=== PATIENT | male | born 1945 | race Caucasian/White ===

== ENCOUNTER 2022-06-01 10:43 | Outpatient (CLI) | payer MEDICARE, BC, SELFPAY | END 2022-06-01 10:44 | disposition home or self-care (01) | PROVIDERS: PCP Family Medicine; Visit Provider Surgery | DX: D50.9 Iron deficiency anemia, unspecified (principal); K57.30 Diverticulosis of large intestine without perforation or abscess without bleeding | CPT/HCPCS: 45378; 99153; J2250; J3010 ==

== ENCOUNTER 2022-08-27 11:18 | Outpatient (REF) | payer MEDICARE, BC, SELFPAY ==
--- OUTSIDE RECORDS SUMMARY | 2022-08-27 11:22 | XMS_ITS | Encounter Summary ---
:1945 Author Organization [facility] Address [address] [place] [address] Care Team Providers Name Role Phone Elsewhere, Pcp Primary Care Provider Unavailable Encounter Details Date Type Department Care Team Description 04/08/2022 Hospital Encounter Department of John Mcintyre ied B Cell Laboratory Medicine Margy A, HAIRCUTTER, Lymp joe Lymph Nodes in [place], C.N.P., D.N.P. Of Multiple Sites [place] [address] [place] [address] ([facility]) [address] [place] [address] [place] [address] [place] [phone] (Work) [phone] Social History Tobacco Use Types Packs/Day Years Used Date Smoking Tobacco: Passive Smoke Exposure - Never Smoker Smokeless Tobacco: Never Alcohol Use Standard Drinks/Week Comments No 0 (1 standard drink = 0.6 oz pure alcoho l) Alcohol Habits Answer Date Recorded How often do you have a drink containing alcohol? 2-4 times a month 05/31/2020 How many drinks containing alcohol do you have on a Patient refused 10/15/2019 typical day when you are drinking? How often do you have six or more drinks on one Patient refu sed 05/31/2020 occasion? Comment: Not asked Social Isolation Answer Date Recorded In a typical week, how many times do you More than three gretchen es a week 10/15/2019 talk on the phone with family, friends, or neighbors? How often do you get together with friends Once a week 05/31/2020 or relatives? How often do you attend tenriism or More than 4 times per year 10/15/2019 jainism services? Do you belong to any clubs or Yes 10/15/2019 organizations such as tenriism groups, unions, fraCinnamon or athletic groups, or school groups? How often do you attend meetings of the More than 4 times pe r year 10/15/2019 clubs or organizations you belong to? Are you now , , , 10/15/2019 , never or living with a partner? Physical Activity Answer Date Recorded On average, how many days per week do you engage in moderate to 3 days 10/15/2019 strenuous exercise (like walking fast, running, jogging, dancing, swimming, biking, or other activities that cause a light or heavy sweat)? On average, how many minutes do you engage in exercise at th is 20 min 10/15/2019 level? Stress Answer Date Recorded Do you feel stress - tense, restless, nervous, or Only a lit tle 05/31/2020 anxious, or unable to sleep at night because your mind is troubled all the time - these days? Financial Resource Strain Answer Date Recorded How hard is it for you to pay for the very basics like Not h irish at all 05/31/2020 food, housing, medical care, and heating? Food Insecurity Answer Date Recorded Within the past 12 months, you worried that your food would Never true 10/15/2019 run out before you got money to buy more. Within the past 12 months, the food you bought just didn't N ever true 10/15/2019 last and you didn't have money to get more. Transportation Needs Answer Date Recorded In the past 12 months, has lack of transportation kept you f rom No 10/15/2019 medical appointments or from getting medications? In the past 12 months, has lack of transportation kept you f rom No 10/15/2019 meetings, work, or getting things needed for daily living? Education Answer Date Recorded What is the highest level of school you have completed or 12 th grade 10/15/2019 the highest degree you have received? Sex Assigned at Date Recorded Male 03/01/2019 1:23 PM CDT documented as of this encounter Medications at Time of Discharge Medication Sig Dispensed Refills Start Date End Date acetaminophen (TYLENOL) Take 2 capsules 0 021 500 mg capsule (1,000 mg total) by mouth every 6 (six) hours as needed for pain. albuterol (PROVENTIL Inhale 1-2 puffs as 0 2017 HFA,VENTOLIN HFA) 90 needed for wheezing mcg/actuation inhaler or shortness of breath. aspirin [address] tablet Take 81 mg by mouth 0 daily. Take for life. calcium carbonate Chew 1 tablet 2 (two) 0 (TUMS) 500 mg (200 mg times a day as needed calcium) chewable for indigestion or tablet heartburn. carvediloL (COREG) 25 Take 1 tablet (25 mg 180 tablet 3 01/202110/16/2022 mg tablet total) by mouth 2 (two) times a day. cetirizine (ZyrTEC) 10 Take 10 mg by mouth 0 08/14 mg tablet daily. clopidogreL (PLAVIX) 75 Take 1 tablet (75 mg 90 tablet 3 10/16/2022 mg tablet total) by mouth daily. fluticasone Inhale 1 puff daily 0 08/25/2015 propion-salmeteroL as needed. 250-50 mcg/dose diskus inhaler levothyroxine Take 1 tablet (200 90 tablet 3 12/17/2021 (SYNTHROID, LEVOTHROID) mcg total) by mouth 200 mcg tablet daily. lisinopriL Take 1 tablet (40 mg 90 tablet 3 10/16/202101/2022 (PRINIVIL,ZESTRIL) 40 total) by mouth mg tablet daily. montelukast (SINGULAIR) Take 1 tablet by 0 2014 10 mg tablet mouth at bedtime. multivitamin tablet Take 1 tablet by 0 mouth daily. nitroglycerin Place 1 tablet (0.4 25 tablet 3 10/16/2021 (NITROSTAT) 0.4 mg SL mg total) under the tablet tongue as needed for chest pain. May repeat every 5 x 2. If no relief with 3rd tab call 911. rosuvastatin (Crestor) Take 1 tablet (40 mg 90 tablet 3 01/202110/16/2022 40 mg tablet total) by mouth daily. tamsulosin (FLOMAX) 0.4 Take 0.4 mg by mouth 0 mg 24 hr capsule daily. documented as of this encounter Plan of Treatment Upcoming Encounters Date Type Specialty Care Team Description 10/11/2022 Appointment Laboratory Medicine Natasha Mullins APRN, C.N.P., M.S.N. [address] [place] [phone] (Wo rk) 10/11/2022 Ancillary Procedure Cardiovascular Disease Natasha Cramer APRN, Radha.N.P., M.S.N. [address] [place] [phone] (Joanie rk) 10/11/2022 Appointment Cardiovascular Disease Natasha Mullins APRN, Radha.N.P., M.S.N. [address] [place] [phone] (Joanie rk) 10/12/2022 Office Visit Cardiovascular Disease Natasha Mullins APRN, C.N.P., M.S.N. [address] [place] [phone] (Joanie rk) documented as of this encounter Procedures Procedure Name Priority Date/Time Associated Comments Diagnosis CBC WITH DIFFERENTIAL, B Routine 04/08/2022 10:39 Unspecified B Cell Results for this AM CDT Lymphoma Lymph procedure are in Nodes Of Multiple the result s Sites (HCC) section. ASPARTATE Routine 04/08/2022 10:39 Unspecified B Cell Resul ts for this AMINOTRANSFERASE (AST), AM CDT Lymphoma Lymph pr ocedure are in S/P Nodes Of Multiple the result s Sites (HCC) section. POTASSIUM, S/P Routine 04/08/2022 10:39 Unspecified B Cell Res ults for this AM CDT Lymphoma Lymph procedure are in Nodes Of Multiple the result s Sites (HCC) section. ALKALINE PHOSPHATASE, Routine 04/08/2022 10:39 Unspecified B C ell Results for this S/P AM CDT Lymphoma Lymph procedure are in Nodes Of Multiple the result s Sites (HCC) section. LACTATE DEHYDROGENASE Routine 04/08/2022 10:39 Unspecified B C ell Results for this (LD), S AM CDT Lymphoma Lymph procedure are in Nodes Of Multiple the result s Sites (HCC) section. CREATININE WITH EGFR, Routine 04/08/2022 10:39 Unspecified B C ell Results for this S/P AM CDT Lymphoma Lymph procedure are in Nodes Of Multiple the result s Sites (HCC) section. CALCIUM, TOT, S/P Routine 04/08/2022 10:39 Unspecified B Cell Results for this AM CDT Lymphoma Lymph procedure are in Nodes Of Multiple the result s Sites (HCC) section. BILIRUBIN, TOT, S/P Routine 04/08/2022 10:39 Unspecified B Debbie l Results for this AM CDT Lymphoma Lymph procedure are in Nodes Of Multiple the result s Sites (HCC) section. documented in this encounter Results Potassium (04/08/2022 10:39 AM CDT) P athologist Signature Potassium, P 4.8 3.6 - 5.2 04/08/2022 CNFL mmol/L 11:00 AM CDT Specimen Anatomical Collection Method Collection Time Receive d Time (Source) Location / / Volume Laterality Blood (Blood, 04/08/2022 10:39 04/08/2022 Venous) AM CDT 10:41 AM CDT Magry Mcintyre APRN, C.N.P., D.N.P. LAB BLOOD ADD- ON Performing Organization Address City/State/ZIP Code Phon e Number [address] [address] [place] [address] System in [address] LD (Lactate Dehydrogenase) (04/08/2022 10:39 AM CDT) Analysis Performed At Patho logist Time Signature Lactate 174 122 - 222 04/08/2022 [facility] Dehydrogenase U/L 1:18 PM CDT (LD), P Specimen Anatomical Collection Method Collection Time Receive d Time (Source) Location / / Volume Laterality Blood (Blood, 04/08/2022 10:39 04/08/2022 Venous) AM CDT 12:20 PM CDT Danny Rodas APRNNLibrado., D.N.P. LAB BLOOD NON ADD-ON Performing Organization Address City/State/ZIP Code Phon e Number [facility]- [address] [place] [address] [facility] [place] [address] System in [place] [address] Creatinine with Estimated GFR (04/08/2022 10:39 AM CDT) P athologist Signature Creatinine 0.78 0.74 - 04/08/2022 CNFL 1.35 mg/dL 11:00 AM CDT eGFR-Black/Afric >90 >=60 04/08/[address] [place] mL/min/BSA 11:00 AM CDT Comment: ----ADDITIONAL INFORMATION---- Estimated GFR calculated using the 2009 CKD_EPI creatinine equation. eGFR Non-Black/ 86 >=60 mL/min/BSA 04/08/2022 11:00 AM CDT CNFL Comment: ----ADDITIONAL INFORMATION---- Estimated GFR calculated using the 2009 CKD_EPI creatinine equation. Specimen Anatomical Collection Method Collection Time Receive d Time (Source) Location / / Volume Laterality Blood (Blood, 04/08/2022 10:39 04/08/2022 Venous) AM CDT 10:41 AM CDT Danny Rodas APRNN.P., D.N.P. LAB BLOOD ADD- ON Performing Organization Address City/State/ZIP Code Phon e Number [facility]- [address] [place] [address] [place] [address] [place] [address] System [address] (ABNORMAL) CBC with Differential, Blood (04/08/2022 10:39 AM CDT) Patholo gist Method Time Signature Hemoglobin 12.8 (L) 13.2 - 04/08/2022 CNFL 16.6 g/dL 10:48 AM CDT Hematocrit 38.0 (L) 38.3 - 04/08/2022 CNFL 48.6 % 10:48 AM CDT Erythrocytes 4.17 (L) 4.35 - 04/08/2022 CNFL 5.65 10:48 AM CDT x10(12)/L MCV 91.1 78.2 - 04/08/2022 CNFL 97.9 fL 10:48 AM CDT RBC Distrib Width 13.0 11.8 - 04/08/2022 CNFL 14.5 % 10:48 AM CDT Platelet Count 201 135 - 317 04/08/2022 CNFL x10(9)/L 10:48 AM CDT Leukocytes 6.6 3.4 - 9.6 04/08/2022 CNFL x10(9)/L 10:48 AM CDT Neutrophils 3.70 1.56 - 04/08/2022 CNFL 6.45 10:48 AM CDT x10(9)/L Lymphocytes 1.65 0.95 - 04/08/2022 CNFL 3.07 10:48 AM CDT x10(9)/L Monocytes 0.78 0.26 - 04/08/2022 CNFL 0.81 10:48 AM CDT x10(9)/L Eosinophils 0.46 0.03 - 04/08/2022 CNFL 0.48 10:48 AM CDT x10(9)/L Basophils 0.01 0.01 - 04/08/2022 CNFL 0.08 10:48 AM CDT x10(9)/L Specimen Anatomical Collection Method Collection Time Receive d Time (Source) Location / / Volume Laterality Blood (Blood, 04/08/2022 10:39 04/08/2022 Venous) AM CDT 10:41 AM CDT Margy Mcintyre APRN, C.N.P., D.N.P. LAB BLOOD ADD- ON Performing Organization Address City/State/ZIP Code Phon e Number [facility]- [address] [place] [address] [place] [address] System [address] Calcium, Total (04/08/2022 10:39 AM CDT) P athologist Signature Calcium, Total, 8.8 8.8 - 10.2 04/08/2022 CNFL P mg/dL 11:00 AM CDT Specimen Anatomical Collection Method Collection Time Receive d Time (Source) Location / / Volume Laterality Blood (Blood, 04/08/2022 10:39 04/08/2022 Venous) AM CDT 10:41 AM CDT Radha Rodas APRN.N.P., D.N.P. LAB BLOOD ADD- ON Performing Organization Address City/[facility]/ZIP Code Phon e Number [address] [address] [place] [address] System in [place] [address] Bl Bilirubin, Total (04/08/2022 10:39 AM CDT) P athologist Signature Bilirubin, 0.3 <=1.2 mg/dL 04/08/2022 CNFL Total, P 11:00 AM CDT Specimen Anatomical Collection Method Collection Time Receive d Time (Source) Location / / Volume Laterality Blood (Blood, 04/08/2022 10:39 04/08/2022 Venous) AM CDT 10:41 AM CDT Radha Rodas APRN.N.P., D.N.P. LAB BLOOD ADD- ON Performing Organization Address [facility] Code Phon e Number [address] [address] [place] [address] System [address] AST (Aspartate Aminotransferase) (04/08/2022 10:39 AM CDT) Patholo gist Method Time Signature Aspartate 22 8 - 48 04/08/2022 CNFL Aminotransferase U/L 11:00 AM CDT (AST), P Specimen Anatomical Collection Method Collection Time Receive d Time (Source) Location / / Volume Laterality Blood (Blood, 04/08/2022 10:39 04/08/2022 Venous) AM CDT 10:41 AM CDT Radha Rodas APRN.N.P., D.N.P. LAB BLOOD ADD- ON Performing Organization Address City/[facility]/ZIP Code Phon e Number [address] [place] [address] [place] [address] System in [address] Alkaline Phosphatase (04/08/2022 10:39 AM CDT) P athologist Signature Alkaline 98 40 - 129 04/08/2022 [place] Phosphatase, P U/L 11:00 AM CDT Specimen Anatomical Collection Method Collection Time Receive d Time (Source) Location / / Volume Laterality Blood (Blood, 04/08/2022 10:39 04/08/2022 Venous) AM CDT 10:41 AM CDT Margy Mcintyre APRN, C.N.P., D.N.P. 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
--- OUTSIDE RECORDS SUMMARY | 2022-08-27 11:22 | XMS_ITS | Encounter Summary ---
:1945 Author Organization [facility] Address [address] [place] [address] Care Team Providers Name Role Phone Elsewhere, Pcp Primary Care Provider Unavailable Encounter Details Date Type Department Care Team Description 04/09/2022 Clinical Communication Division of Dionicio Muniz , Hematology in Dante Garcia M.D. [place], [place] [address] [facility] [address] [place] [phone] Social History Tobacco Use Types Packs/Day Years [...] or relatives? How often do you attend anabaptist or More than 4 times per year 10/15/2019 adventist services? Do you belong to any clubs or Yes 10/15/2019 organizations such as anabaptist groups, unions, fraternal or athletic groups, or school groups? How [...] PM CDT documented as of this encounter Miscellaneous Notes Telephone Encounter - Gabbie Levi R.N., O.C.N. - 04/13/2022 2:40 PM CDT Patient prefers labs at [place]. Orders placed. Telephone Encounter - Gabbie Levi R.N., O.C.N. - 04/09/2022 11:09 AM CDT ----- Message from Dante Muniz M.D. sent at 04/09/2022 10:11 AM CDT ----- Regarding: Labs at home Saw this patient in clinic today. He was feeling well but has new onset anemia. Tried ordering ferritin on stored specimen mother was no left over blood. May I please ask you to help me order the following labs at home for some point of next week: CBC with differential, reticulocytes, ferritin, haptoglobin, LDH? I will follow-up with him with a phone visit in 2 weeks. Thank you documented in this encounter Plan of Treatment Upcoming Encounters Date Type Specialty Care Team Description 10/11/2022 Appointment Laboratory Medicine Natasha Mullins APRN, C.N.Franklin., M.S.N. [address] [place] [phone] (Joanie velázquez) 10/11/2022 Ancillary Procedure Cardiovascular Disease Natasha Cramer APRN, C.N.Jalen, M.S.N. [address] [place] [phone] (Joanie velázquez) 10/11/2022 Appointment Cardiovascular Disease Natasha Mullins APRN, C.N.Franklin., M.S.N. [address] [place] [phone] (Joanie velázquez) 10/12/2022 Office Visit Cardiovascular Disease Natasha Mullins APRN, Radha.N.P., M.S.N. [address] [place] [address] (Wo rk) documented as of this encounter Results Reticulocytes (04/16/2022 8:19 AM CDT) P athologist Signature Reticulocytes, B 1.44 0.60 - 04/16/2022 [facility] 2.71 % 3:25 PM CDT Absolute 62.1 30.4 - 04/16/2022 [facility] Reticulocyte 110.9 3:25 PM CDT x10(9)/L Specimen Anatomical Collection Method Collection Time Receive d Time (Source) Location / / Volume Laterality Blood (Blood, 04/16/2022 8:19 AM 04/16/20 22 Venous) CDT 12:51 PM CDT Dante Muniz M.D. LAB BLOOD ADD-ON Performing Organization Address City/State/ZIP Code Phon e Number [facility]- [address] [place], [place] [address] [place] [address] System in [place] [address] [facility] (ABNORMAL) CBC with Differential, Blood (04/16/2022 8:19 AM CDT) [facility] gist Method Time Signature Hemoglobin 13.1 (L) 13.2 - 04/16/2022 CNFL 16.6 g/dL 8:24 AM CDT Hematocrit 38.7 38.3 - 04/16/2022 CNFL 48.6 % 8:24 AM CDT Erythrocytes 4.28 (L) 4.35 - 04/16/2022 CNFL 5.65 8:24 AM CDT x10(12)/L MCV 90.4 78.2 - 04/16/2022 CNFL 97.9 fL 8:24 AM CDT RBC Distrib Width 12.9 11.8 - 04/16/2022 CNFL 14.5 % 8:24 AM CDT Platelet Count 198 135 - 317 04/16/2022 CNFL x10(9)/L 8:24 AM CDT Leukocytes 5.9 3.4 - 9.6 04/16/2022 CNFL x10(9)/L 8:24 AM CDT Neutrophils 3.38 1.56 - 04/16/2022 CNFL 6.45 8:24 AM CDT x10(9)/L Lymphocytes 1.51 0.95 - 04/16/2022 CNFL 3.07 8:24 AM CDT x10(9)/L Monocytes 0.58 0.26 - 04/16/2022 CNFL 0.81 8:24 AM CDT x10(9)/L Eosinophils 0.41 0.03 - 04/16/2022 CNFL 0.48 8:24 AM CDT x10(9)/L Basophils 0.01 0.01 - 04/16/2022 CNFL 0.08 8:24 AM CDT x10(9)/L Specimen Anatomical Collection Method Collection Time Receive d Time (Source) Location / / Volume Laterality Blood (Blood, 04/16/2022 8:19 AM 04/16/20 22 8:19 Venous) CDT AM CDT Dante Muniz M.D. LAB BLOOD ADD-ON Performing Organization Address City/[facility]/ZIP Code Phon e Number [facility]- [address] [place] [address] [place] [address] LD (Lactate Dehydrogenase) (04/16/2022 8:18 AM CDT) Analysis Performed At Patho logist Time Signature Lactate 192 122 - 222 04/16/2022 [facility] Dehydrogenase U/L 1:18 PM CDT (LD), P Specimen Anatomical Collection Method Collection Time Receive d Time (Source) Location / / Volume Laterality Blood (Blood, 04/16/2022 8:18 AM 04/16/20 22 Venous) CDT 12:51 PM CDT Dante Muniz M.D. LAB BLOOD NON ADD-ON Performing Organization Address City/State/ZIP Code Phon e Number [facility]- [facility] Debra R[address] [place], [place] [address] [place] [address] System in [place] [address] Haptoglobin (04/16/2022 8:18 AM CDT) P athologist Signature Haptoglobin, S 168 30 - 200 04/16/2022 ECLR mg/dL 3:10 PM CDT Specimen Anatomical Collection Method Collection Time Receive d Time (Source) Location / / Volume Laterality Blood (Blood, 04/16/2022 8:18 AM 04/16/20 22 2:37 Venous) CDT PM CDT Dante Muniz M.D. LAB BLOOD ADD-ON Performing Organization Address City/[facility]/ZIP [facility] Phon e Number [facility]- [address] [place] [phone] [facility] [place] [place] [address] [address] Ferritin (04/16/2022 8:18 AM CDT) athologist Signature Ferritin, S 32 31 - 409 04/16/2022 [facility] mcg/L 1:32 PM CDT Comment: Biotin has been identified by the rosales gomes as a potential interfering substance. Higher concentrations of biotin may be found in multivitamins, roland ir/nail supplements, and workout supplements. If the result d oes not match clinical observations, repeat testing af ter patient refrains from the use of supplements for at least 12 hours. Specimen Anatomical Collection Method Collection Time Receive d Time (Source) Location / / Volume Laterality Blood (Blood, 04/16/2022 8:18 AM 04/16/20 22 Venous) CDT 12:51 PM CDT Dante Muniz M.D. 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
--- OUTSIDE RECORDS SUMMARY | 2022-08-27 11:22 | XMS_ITS | Encounter Summary ---
:1945 Author Organization [facility] Address [address] [place] [address] Care Team Providers Name Role Phone Elsewhere, Pcp Primary Care Provider Unavailable Reason for Visit Reason Comments Colonoscopy locally Encounter Details Date Type Department Care Team Description 05/13/2022 Clinical Division of [facility] Colonoscopy Communication Hematology in Dante Muniz locally [place], M.D. [place] [address] [facility] [address] [place] [phone] Social History Tobacco Use Types Packs/Day Years [...] or relatives? How often do you attend adventist or More than 4 times per year 10/15/2019 taoist services? Do you belong to any clubs or Yes 10/15/2019 organizations such as adventist groups, unions, fraternal or athletic groups, or [...] this encounter Miscellaneous Notes Telephone Encounter - Judy Lopez - 08/23/2022 9:[address] Greenberg -- it appears as if the patient was able to get his colonoscopy on 06/01 locally. The results are in Care Everywhere. Comments from PCP at [place] On June 01 colonoscopy was done with at [facility]. This was normal. Let me know if you need anything further. Judy Telephone Encounter - Judy Lopez - 05/13/2022 10:57 AM CDT Mr. Khanna called in to let you know that he cannot get a colonoscopy locally until August 13. He would like to know if the situation is more urgent than this, and if he needs to come to [place] to have it done earlier, he is willing to do that. Please advise and I will let the patient know your recommendations. If it needs to be done sooner than 08/13, please put orders through so this can be scheduled here. Thank you Judy documented in this encounter Plan of Treatment Upcoming Encounters Date Type Specialty Care Team Description 10/11/2022 Appointment Laboratory Medicine Natasha Mullins APRN, Radha.N.Franklin., M.S.N. [address] [place] [phone] (Joanie velázquez) 10/11/2022 Ancillary Procedure Cardiovascular Disease Natasha Cramer APRN, C.N.P., M.S.N. [address] [place] [phone] (Joanie velázquez) 10/11/2022 Appointment Cardiovascular Disease Natasha Mlulins APRN, Radha.N.P., M.S.N. [address] [place] [phone] (Joanie velázquez) 10/12/2022 Office Visit Cardiovascular Disease Natasha Mullins APRN, Radha.N.P., M.S.N. [address] [place] [phone] (Wo rk) documented as of this encounter Visit Diagnoses Not on filedocumented in this encounter Additional Health Concerns Infection Onset Date Last Indicated Resolved Time COVID19 Pending 06/28/2022 06/28/2022 06/28/2022 6:14 PM CDT documented as of this encounter Care Teams Electronic Induction Hardener Relationship Specialty Start Date End Date Elsewhere, Pcp PCP - General Family Medicine 10/25/18 documented as of this encounter
--- OUTSIDE RECORDS SUMMARY | 2022-08-27 11:22 | XMS_ITS | Encounter Summary ---
:1945 Author Organization [facility] Address [address] [place] [address] Care Team Providers Name Role Phone Elsewhere, Pcp Primary Care Provider Unavailable Reason for Referral Outpatient (Routine) - Authorized Specialty Diagnoses / Procedures Referred By Contact Refer trudi To Contact Hematology Oncology Lauren Brown M.D. [address] [place] [phone] Referral ID Status Reason Start Date Expiration Date Visits V isits Requested Authorized [id number] Authorized 04/09/2022 04/09/2023 1 1 utpatient (Routine) - Closed Specialty Diagnoses / Procedures Referred By Contact Breanne brush To Contact Dante Brown M.D. [facility] [address] [place] [phone] Referral ID Status Reason Start Date Expiration Date Visits Requ ested Visits Authorized [id number] Closed 04/09/2022 04/09/2023 1 1 Reason for Visit Outpatient (Routine) - Closed Specialty Diagnoses / Procedures Referred By Contact Breanne brush To Contact Hematology Oncology Margy Mcintyre [place] APRN C.N.PCarmine, D.N.P. [address] [place] [address] Referral ID Status Reason Start Date Expiration Date Visits Requ ested Visits Authorized [id number] Closed 03/17/2021 03/17/2022 1 1 Encounter Details Date Type Department Care Team Description 04/09/2022 Office Visit Division of Gary Mcintyre APRN, C.NRenetta, D.N.PCarmine [address] [place] [phone] Malignant Neoplasm Of Thyroid (HCC) (Meme cohen Dx); Hematology in [place] M[place]D. [address] [place] [phone] Lymphoma Nodular Multiple Site (HCC) [place], [place] [address] [place] [phone] Social History Tobacco Use Types Packs/Day Years [...] or relatives? How often do you attend judaism or More than 4 times per year 10/15/2019 alevism services? Do you belong to any clubs or Yes 10/15/2019 organizations such as judaism groups, unions, fraternal or athletic groups, or [...] PM CDT documented as of this encounter Last Filed Vital Signs Vital Sign Reading Time Taken Comments Blood Pressure 125/80 04/09/2022 9:41 AM CDT Pulse 75 04/09/2022 9:41 AM CDT Temperature 36.3 ??C (97.3 ??F) 04/09/2022 9:41 AM CDT Respiratory Rate - - Oxygen Saturation - - Inhaled Oxygen Concentration - - Weight 82.6 kg (181 lb 15.8 oz) 04/09/2022 9:41 AM CDT Height 175.4 cm (5' 9.06) 04/09/2022 9:41 AM CDT Body Mass Index 26.83 04/09/2022 9:41 AM CDT documented in this encounter Progress Notes Dante Brown M.D. - 04/09/2022 9:45 AM CDT SUBJECTIVE REASON FOR CONSULT B-cell non-Hodgkin lymphoma HISTORY OF PRESENT ILLNESS Patient is a 76 y.o. man with previous medical history significant for coronary artery disease, metastatic papillary thyroid carcinoma, and lymphoma whose hematological history may be summarized as follows: Circa 2013: Diagnosed with papillary thyroid carcinoma with ijeoma metastasis. Underwent total thyroidectomy and lymphadenectomy followed by radioactive iodine treatment. Circa 2014: Diagnosed with recurrent papillary thyroid carcinoma requiring repeat surgery and 2nd dosage of radioactive iodine. December 12, 2015: Fine-needle aspiration of left cervical lymph node shows involvement by B-cell lymphoma. Flow cytometry studies showed involvement by a CD5 negative kappa light chain restricted B-cell population which was positive for CD19, CD20, and CD22. Bone marrow biopsy done shortly after showing involvement by lymphoma. 2016 to present: Observed without need for lymphoma treatment. INTERVAL HISTORY Patient returns to my clinic for scheduled evaluation. Last seen by us on March 17, 2021. Of interest, on May 27, 2021 he underwent revision right neck dissection and lymphadenectomy by Dr. Carr for treatment of recurrent metastatic papillary thyroid cancer. Eighteen lymph nodes removed and 2 were positive for metastatic papillary thyroid cancer. On my interview today he reports no active symptoms or complaints. Specifically denies constitutional symptoms such as fevers, chills, drenching nightsweats, unintentional weight loss. MEDICATIONS Reviewed. REVIEW OF SYSTEMS All systems reviewed and negative except for HPI. OBJECTIVE Vitals: 04/09/22 0941 BP: 125/80 Patient Position: Sitting Pulse: 75 Temp: 36.3 ??C Height: 175.4 cm Weight: 82.6 kg TempSrc: Tympanic Body surface area is 2.01 meters squared. PHYSICAL EXAM General: Unaccompanied. No acute distress. Eyes: Examined and normal. ENT: No oral lesions or thrush. Lymph: No palpable adenopathy in the neck, supraclavicular, infraclavicular, axillary, or epitrochlear regions Heart: Regular rate and rhythm, S1 and S2 presents, no murmurs or gallops. Lungs: Symmetric expansion, no crackles, rales, rhonchi or wheezing. Abdomen: Soft, not tender to palpation, no peritoneal signs. No palpable masses or organomegaly. Spine: No tenderness to palpation or percussion of the entire spine. Joints: Examined and normal. Extremities: No clubbing, cyanosis, or edema. Neuro: Grossly nonfocal. Skin: No rash on limited examination. DIAGNOSTICS I have reviewed the recent relevant labs. Recent Results (from the past 72 hour(s)) Alkaline Phosphatase Collection Time: 04/08/22 10:39 AM Result Value Alkaline Phosphatase, P 98 AST (Aspartate Aminotransferase) Collection Time: 04/08/22 10:39 AM Result Value Aspartate Aminotransferase (AST), P 22 Bilirubin, Total Collection Time: 04/08/22 10:39 AM Result Value Bilirubin, Total, P 0.3 Calcium, Total Collection Time: 04/08/22 10:39 AM Result Value Calcium, Total, P 8.8 CBC with Differential, Blood Collection Time: 04/08/22 10:39 AM Result Value Hemoglobin 12.8 (L) Hematocrit 38.0 (L) Erythrocytes 4.17 (L) MCV 91.1 RBC Distrib Width 13.0 Platelet Count 201 Leukocytes 6.6 Neutrophils 3.70 Lymphocytes 1.65 Monocytes 0.78 Eosinophils 0.46 Basophils 0.01 Creatinine with Estimated GFR Collection Time: 04/08/22 10:39 AM Result Value Creatinine, P 0.78 eGFR-Black/ >90 eGFR Non-Black/ 86 LD (Lactate Dehydrogenase) Collection Time: 04/08/22 10:39 AM Result Value Lactate Dehydrogenase (LD), P 174 Potassium Collection Time: 04/08/22 10:39 AM Result Value Potassium, P 4.8 ASSESSMENT / PLAN #1 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 At this time there is no clinical evidence of lymphoma recurrence on the basis of history, physical examination, or laboratory data. He is asymptomatic. I recommend yearly follow- up with us in the lymphoma clinic. He will continue to follow-up with endocrinology for his treated metastatic papillary thyroid cancer. #3 Normocytic anemia Noted hemoglobin of 12.8 today compared to 14.1 in October of 2021. Normal MCV. Tried adding ferritin to stored blood but this was not available. I have reached out to our nurses and requested labs filemon done locally for further investigation of the anemia. Will follow-up via phone visit in approximately 2 weeks. Follow-up: Phone visit in 2 weeks to follow up anemia workup. Return to clinic in 1 year for lymphoma surveillance. Education We discussed the diagnosis and treatment plan in detail. The patient expressed understanding of the content. No apparent learning barriers were identified; learning preferences include listening. I personally spent over half of a total 35 minutes face to face with the patient in counseling and discussion and/or coordination of care as described above. Signed by: Laura Muniz M.D. 04/09/2022 documented in this encounter Plan of Treatment Upcoming Encounters Date Type Specialty Care Team Description 10/11/2022 Appointment Laboratory Medicine Natasha Mullins APRN, C.N.P., M.S.N. [address] [place] [address] [phone] (Joanie velázquez) 10/11/2022 Ancillary Procedure Cardiovascular Disease Natasha Cramer APRN, C.N.P., M.S.N. [address] [place] [address] [phone] (Joanie velázquez) 10/11/2022 Appointment Cardiovascular Disease Natasha Mullins APRN, C.N.P., M.S.N. [address] [place] [address] [phone] (Joanie velázquez) 10/12/2022 Office Visit Cardiovascular Disease Natasha Mullins APRN, Radha.N.P., M.S.N. [address] [place] [address] [phone] (Joanie velázquez) Scheduled Orders Name Type Priority Associated Diagnoses Order S chedule Alkaline Phosphatase Lab Routine Lymphoma Nodular Exp ected: 04/09/2023 Multiple Site (HCC) (Approxi mate), Expires: 2024 AST (Aspartate Lab Routine Lymphoma Nodular Expected: 04/09/2023 Aminotransferase) Multiple Site (HCC) (Ap proximate), Expires: 2024 Bilirubin, Total Lab Routine Lymphoma Nodular Expecte d: 04/09/2023 Multiple Site (HCC) (Approxi mate), Expires: 2024 Calcium, Total Lab Routine Lymphoma Nodular Expected: 04/09/2023 Multiple Site (HCC) (Approxi mate), Expires: 2024 CBC with Differential, Lab Routine Lymphoma Nodular E xpected: 04/09/2023 Blood Multiple Site (HCC) (Approxi mate), Expires: 2024 Creatinine with Estimated Lab Routine Lymphoma Nodula r Expected: 04/09/2023 GFR Multiple Site (HCC) (Approxi mate), Expires: 2024 LD (Lactate Lab Routine Lymphoma Nodular Expected: 0 04/09/2023 Dehydrogenase) Multiple Site ([facility]) (Appro ximate), Expires: 2024 Potassium Lab Routine Lymphoma Nodular Expected: 0 04/09/2023 Multiple Site (HCC) (Approxi mate), Expires: 2024 Scheduled Referrals Name Type Priority Associated Order Schedule Diagnoses NonF2F phone visit Outpatient Referral Routine Ex pected: 04/23/2022 (Approximate), Expires: 07/10/2023 Hematology office Outpatient Referral Routine Exp ected: visit (clinic) 04/09/2023 (Approximate), Expires: 04/09/2025 documented as of this encounter Visit Diagnoses Diagnosis Malignant Neoplasm Of Thyroid (HCC) - Pr imary Lymphoma Nodular Multiple Site (HCC) documented in this encounter Care Teams Powerhouse Mechanic Supervisor Relationship Specialty Start Date End Date Elsewhere, Pcp PCP - General Family Medicine 10/25/18 documented as of this encounter
--- OUTSIDE RECORDS SUMMARY | 2022-08-27 11:22 | XMS_ITS | Encounter Summary ---
:1945 Author Organization [facility] Address [address] [place] [address] Care Team Providers Name Role Phone Elsewhere, Pcp Primary Care Provider Unavailable Encounter Details Date Type Department Care Team Description 06/28/2022 Admin Visit Department of Family Medicine, [address] [phone] Social History Tobacco Use Types Packs/Day Years [...] or relatives? How often do you attend buddhist or More than 4 times per year 10/15/2019 congregation services? Do you belong to any clubs or Yes 10/15/2019 organizations such as buddhist groups, unions, fraternal or athletic groups, or [...] PM CDT documented as of this encounter Plan of Treatment Upcoming Encounters Date Type Specialty Care Team Description 10/11/2022 Appointment Laboratory Medicine Natasha Mullins APRN, C.N.P., M.S.N. 200 [place] [phone] (Wo rk) 10/11/2022 Ancillary Procedure Cardiovascular Disease Natasha Cramer APRN, C.N.P., M.S.N. [address] [place] [phone] (Wo rk) 10/11/2022 Appointment Cardiovascular Disease Natasha Mullins APRN, C.N.P., M.S.N. [address] [place] [phone] (Joanie velázquez) 10/12/2022 Office Visit Cardiovascular Disease Natasha Mullins APRN, C.N.P., M.S.N. [address] [place] [address] [phone] (Joanie velázquez) documented as of this encounter Visit Diagnoses Not on filedocumented in this encounter Additional Health Concerns Infection Onset Date Last Indicated Resolved Time COVID19 Pending 06/28/2022 06/28/2022 06/28/2022 6:14 PM CDT documented as of this encounter Care Teams Credit Card Clerk Relationship Specialty Start Date End Date Elsewhere, Pcp PCP - General Family Medicine 10/25/18 documented as of this encounter
--- OUTSIDE RECORDS SUMMARY | 2022-08-27 11:22 | XMS_ITS | Clinical Summary ---
:1945 Author Organization [employer] [facility] [place] [address] Care Team Providers Name Role Phone Tucker Currie MD Primary Care Provider [phone] Allergies Active Allergy Reactions Severity Noted Date Comments Clindamycin 11/17/2007 Iodinated Contrast Media Itching 11/17/2007 Pos sible adverse reaction to iodinated contr ast given at eye ce nter in 2006. Visi [address] scan on 12/12/13. No reaction noted. Penicillins Pneumococcal Vaccine Other - Describe In 12/24/2014 Headache and body Comment Field ache Shellfish Containing Nausea And Vomiting 07/07/2015 Products Medications Medication Sig Dispensed Refills Start Date End Date Status cholecalciferol Take 1 capsule 0 12/26/2013 Active (VITAMIN D) 1,000 unit by mouth once capsule daily. carvedilol (COREG) 25 Take 2 tablets 0 08/02/2016 Active mg tablet by mouth twice daily. clopidogrel (PLAVIX) 75 Take 1 tablet by 0 6 Active mg tablet mouth once daily. aspirin (ECOTRIN) 81 mg Take 1 tablet by 0 6 Active enteric coated tablet mouth once daily with a meal. cetirizine (ZYRTEC) 10 Take 1 tablet by 0 09/30/2016 Active mg tablet mouth once daily. rosuvastatin (CRESTOR) Take 1 tablet by 0 05/06/2017 Active 40 mg mouth at tabletIndications: bedtime. Mixed hyperlipidemia nitroglycerin Place 1 Tab 0 10/21/2017 Act addie (NITROSTAT) 0.4 mg under the sublingual tablet tongue. levothyroxine Take 1 tablet by 90 tablet 3 03/06/2019 Active (SYNTHROID) 200 mcg mouth before tabletIndications: breakfast. Postsurgical hypothyroidism fluticasone (50 mcg per Inhale 1 [place] 1 Bottle 12 04/11/2019 Active actuation) nasal into both solution nostrils once (FLONASE)Indications: daily. Wheeze lisinopriL (PRINIVIL; 0 02/12/2020 Active ZESTRIL) 40 mg tablet albuterol HFA (PRO-AIR; Inhale 1-2 Puffs 18 g 1 Active VENTOLIN; PROVENTIL) 90 by mouth every 4 mcg/actuation hours if needed. inhalerIndications: Wheeze tamsulosin (FLOMAX) 0.4 TAKE ONE CAPSULE 90 Capsule 3 12/15/19 22 Active mg capsuleIndications: BY MOUTH EVERY BPH with urinary DAY AFTER A MEAL obstruction montelukast (SINGULAIR) Take 1 Tablet 90 Tablet 3 05/12/2022 Active 10 mg (10 mg) by mouth tabletIndications: at bedtime. Wheeze fluticasone Inhale 1 Puff by 1 Each 12 05/12/2022 Active propion-salmeteroL mouth in the (Advair Diskus) 250-50 morning and 1 mcg/Dose diskus Puff in the inhalerIndications: evening. Wheeze famotidine (PEPCID) 20 Take 1 Tablet 60 Tablet 3 08/03/2022 Active mg tabletIndications: (20 mg) by mouth Iron deficiency anemia, two times daily. 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 Thyroidectomy 01/17/14 Multifocal bilateral dz; primary tumor l eft lobe 3.5 cm 2/4 lymph nodes + TNM stage LOI MACIS score = 6.7 (89% 20-year survival) 106 mCi radioactive iodine ablation 03/26 with pretreatment labs: Ref. Range 03/22/2014 07:30 TSH Latest Range: 0.35-4.94 uIU/mL 58.71 (H) THYROGLOBULIN TUMOR MARKER Latest Range: <33.0 ng/mL 27.0 THYROGLOBULIN ANTIBODY SCREEN Latest Ran ge: <22 IU/mL 86 (H) 1 week post-ablative scan negative for m ets Thyrogen-stimulated WBS negative 09/27 Recurrence 2014 Left neck dissection 07/07/15 - 10/10 LN+ , central and left neck levels 2-4 Lymphadenopathy detected 12/30; CT done, enlarged nodes => FNA shows B-cell lymphoma, now seeing Dr. Fairbanks Tg slowly rising: Ref. Range 01/30/2016 10:31 08/02/2016 10 :47 08/26/2016 10:25 TSH Latest Ref Range: 0.35 - 4.94 uIU/mL 0.08 (L) 0.28 (L) 135.55 (H) with thyrogen stimulation T4,FREE Latest Ref Range: 0.70 - 1.80 ng /dL 1.41 1.13 THYROGLOBULIN Latest Ref Range: <=33.0 n g/ml 0.8 3.1 20.8 ANTI-THYROGLOBULIN Latest Ref Range: <4. 0 IU/mL 29.5 (H) 51.0 (H) 75.6 (H) Persistently rising thyroglobulin 2017: Ref. Range 01/20/2017 10:24 07/26/2017 09: 47 08/10/2017 09:39 TSH Latest Ref Range: 0.35 - 4.94 uIU/mL 0.06 (L) 0.02 (L) 110.19 (H) with thyrogen stimulation T4,FREE Latest Ref Range: 0.70 - 1.80 ng /dL 1.49 1.34 1.42 THYROGLOBULIN Latest Ref Range: <=33.0 n g/ml 3.9 26.7 52.7 (H) ANTI-THYROGLOBULIN Latest Ref Range: <4. 0 IU/mL 101.8 (H) 75.2 (H) 70.4 (H) CT chest negative for mets 08/30 Thyrogen scan negative 07/31 Ultrasound negative 08/30 Given 203 mCi radioactive iodine empiric ally 09/14/17, thyrogen protocol 1 week post-ablative SPECT-CT imagest ne gative for any uptake Continued rising thyroglobulin 2017=>201 9: Ref. Range 01/17/2018 13:38 07/21/2018 15:3 7 01/29/2019 14:24 TSH Latest Ref Range: 0.35 - 4.94 uIU/mL 0.03 (L) 0.03 (L) 0.04 (L) T4,FREE Latest Ref Range: 0.70 - 1.80 ng /dL 1.41 1.38 1.36 THYROGLOBULIN Latest Ref Range: <=33.0 n g/ml 2.3 1.8 18.4 ANTI-THYROGLOBULIN Latest Ref Range: <4. 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 Unspecified intestinal obstruction 06/19 Hyperpotassemia 06/19/2021 Encounters Date Type Specialty Care Team Description 08/24/2022 Telephone Justen Lyman Proced ure MD 08/05/2022 Telephone Tucker Currie Prior Autho rization MD Sarah (famotidine (PE PCID) 20 mg tablet-PA NOT N EEDED) 08/03/2022 Office Visit Tucker Currie Follow Up ( Colonoscopy done MD Sarah at the [facility]); Immunization/In jection; Immunization/In jection (COVID-19 vacci ne) 08/02/2022 Orders Only Lab, [facility] 08/02/2022 Travel 07/22/2022 Orders Only Staff, Other Clinical <No sc ans attached> 07/21/2022 Orders Only Staff, Other Clinical <No sc ans attached> 07/21/2022 Orders Only Staff, Other Clinical <No sc ans attached> 07/21/2022 Orders Only Staff, Other Clinical <No sc ans attached> 07/21/2022 Telephone Tucker Currie Lab (Reques t lab orders) MD Sarah 06/20/2022 Refill Tucker Currie Refill Requ est (Montelukast) MD Sarah 06/04/2022 Orders Only Tucker Currie <No scans a ttached> MD Sarah 05/31/2022 Orders Only Scanner <No scans attac hed> from Last 3 Months Immunizations Name Administration Dates Next Due COVID-19 vaccine ([employer] 08/03/2022 30mcg/0.3mL) 12YO+ BIVALENT BOOSTER PF, MDV COVID-19 vaccine ([employer] 04/26/2022 30mcg/0.3mL) 12YO+ SHYLA-SUCROSE PF, MDV COVID-19 vaccine ([employer] 08/05/2021, 01/22/2021, 30mcg/0.3mL) PF, MDV Hepatitis A (Adult) 10/17/2003, 12/24/2002 Hepatitis A, Unspecified 10/17/2003, 12/24/2002 Influenza, High-dose Inactivated 09/05/2019, 08/02/2016, , 08/29/2014 Influenza, High-dose Quadrivalent 09/10/2021, 09/03/2020 Inactivated Influenza, IIV3 (Age >=3 years) 10/30/2007, 12/10/2004 Influenza, IIV4 07/26/2017 Influenza, Inactivated AIIV4 (Age 65+ 08/03/2022 Years) Preserv Free Influenza, Inactivated IIV3 (Age 65+ 07/31/2018 Years) Preserv Free Pneumococcal Poly,23-Valent 09/07/2012 (Pneumovax) Td (Age >=7 Years) 01/10/2009, 08/24/1999 Td, Preservative Free (age >= 7 01/10/2009 Years) Zoster (Zostavax-ZVL, live) 11/26/2011 Family History Medical History Relation Name Comments Heart Disease Father cabg at 79 Allergies Mother Asthma Mother Hyperlipidemia Mother Hypertension Mother Anesthesia Problem Neg. Stroke Sister Cancer-colon No Family History Cancer-prostate No Family History Diabetes No Family History Relation Name Status Comments Father Mother Neg. Sister Social History Tobacco Use Types Packs/Day Years Used Date Never Smoker Smokeless Tobacco: Never Used Tobacco Cessation: Counseling Given: Yes Alcohol Use Standard Drinks/Week Comments No 0 (1 standard drink = 0.6 oz pure alcoho l) Sex Assigned at Date Recorded Not on file COVID-19 Exposure Response Date Recorded In the last 10 days, have you been in contact with No / Unsu re 08/02/2022 10:43 AM CDT someone who was confirmed or suspected to have Coronavirus/COVID-19? 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 TANK TENDER Respiratory Rate 18 02/27/2019 2:21 PM CDT Oxygen Saturation 98% 08/03/2022 8:02 AM CDT Inhaled Oxygen Concentration - - Weight 80.7 kg (178 lb) 08/03/2022 8:02 AM CDT Height 170.2 cm (5' 7) 05/12/2022 2:32 PM CDT Body Mass Index 27.88 05/12/2022 2:32 PM CDT Plan of Treatment Upcoming Encounters Date Type Specialty Care Team Description 08/30/2022 Procedure Only Justen Lyman MD [address] [place] [address] (Wo rk) Health Maintenance Due Date Last Done Comments Tdap 1956 Hepatitis C screening for age 0907/24/1963 18-79 Zoster (shingles) series for age 0301/21/2012 11/26/2011 50+ (2 of 3) Pneumococcal series for age 65+ (2 09/07/2013 09/07/2012 - PCV) Medicare Wellness for age 65+ 12/24/2015 12/24/2014, 2013 Tetanus booster 01/10/2019 01/10/2009, 01/10/2009, 08/24/1999 Depression screening for age 12+ 04/11/2020 04/11/2019, , 09/30/2016, Additional history exists BMI (ht and wt on same day) for 05/12/2023 05/12/2022, 08/0 04/2021, age 18+ 12/29/2020, Additional history exists COVID-19 vaccine series Completed 08/03/2022, 04/26/2022, 08/05/2021, Additional history exists Influenza for age 65+ Completed 08/03/2022, 09/10/2021, 09/03/2020, Additional history exists Procedures Procedure Name Priority Date/Time Associated Comments Diagnosis HEMOGLOBIN Routine 08/02/2022 10:55 Anemia of unknown Result s for this AM CDT etiology procedure are i n the results section. SCAN 07/22/2022 12:00 Results for this [facility] AM CDT procedur e are in the results section. SCAN 07/21/2022 12:00 Results for this [facility]RESP-DIAGNOSTICS AM CDT procedur e are in the results section. SCAN 07/21/2022 12:00 Results for this [facility]P-DIAGNOSTICS AM CDT procedur e are in the results section. SCAN 07/21/2022 12:00 Results for this [facility]DIAGNOSTICS AM CDT procedur e are in the results section. COLONOSCOPY SCREENING Routine 06/01/2022 12:00 Screening for c olon Results for this AM CDT cancer procedure are i n the results section. SCAN-LABORATORY 05/31/2022 9:02 AM Result s for this REPORT CDT procedure are i n the results section. from Last 3 Months Results (ABNORMAL) HEMOGLOBIN (08/02/2022 10:55 AM CDT) athologist Signature HEMOGLOBIN 12.4 (L) 13.5 - 08/02/2022 [facility] 17.5 g/dL 11:48 AM CDT [facility] MCV 89 80 - 100 08/02/2022 [facility] fL 11:48 AM CDT [facility] Specimen Anatomical Collection Method / Collection Time Recei lida Time (Source) Location / Volume Laterality Blood BLOOD SPECIMEN / Venipuncture / 08/02/2022 10:55 08/02 Unknown Unknown AM CDT 10:55 AM CDT Tucker Currie MD HEMATOLOGY Performing Organization Address City/State/ZIP Code Phon e Number [facility] [address] [place] [address] SCAN [facility]AGNO[facility] (07/22/2022 12:00 AM CDT) Narrative 07/22/2022 12:00 AM CDT This result has an attachment that is no t available. Ordered by an unspecified provider. Other Clinical Staff OTHER SCAN [facility] (07/21/2022 12:00 AM CDT) Narrative 07/21/2022 12:00 AM CDT This result has an attachment that is no t available. Ordered by an unspecified provider. Other Clinical Staff OTHER SCAN [facility] (07/21/2022 12:00 AM CDT) Narrative 07/21/2022 12:00 AM CDT This result has an attachment that is no t available. Ordered by an unspecified provider. Other Clinical Staff OTHER SCAN [facility] (07/21/2022 12:00 AM CDT) Narrative 07/21/2022 12:00 AM CDT This result has an attachment that is no t available. Ordered by an unspecified provider. Other Clinical Staff OTHER COLONOSCOPY SCREENING (06/01/2022 12:00 AM CDT) Narrative This result has an attachment that is no t available. Tucker Currie MD GI PROCEDURE ORD SCAN-LABORATORY REPORT (05/31/2022 9:02 AM CDT) Narrative This result has an attachment that is no t available. Scanner OTHER from Last 3 Months Insurance Payer Benefit Plan / Subscriber ID Effective Dates Phone Addre ss Type Group MEDICARE PART A MEDICARE PART A [id number] 2008-Presen ATTN: CLAIMS - HB USE ONLY HB ONLY t [address] [place] [address] MEDICARE PART B MEDICARE PART B [id number] 2012-Prese ATTN: CLAIMS - HB USE ONLY HB ONLY nt [address] [facility] [place] [address] MEDICARE - PB MEDICARE PB [id number] 2008-Presen ATTN : CLAIMS USE ONLY ONLY t [address] [place] [address] BLUE CROSS BLUE CROSS OF [id number] 2016-Presen [address] [place] [phone] Advance Directives Latest Code Status on File Code Status Date Activated Date Inactivated Comments Full Code 07/07/2015 2:09 PM 07/08/2015 2:42 PM Full Code 07/07/2015 12:47 AM 07/07/2015 2:09 PM Care Teams Leather Goods Sales Representative Relationship Specialty Start Date End Date Tucker Currie MD PCP - General 09/15/06 [address] [facility] [id number]
--- OUTSIDE RECORDS SUMMARY | 2022-08-27 11:22 | XMS_ITS | Encounter Summary ---
:1945 Author Organization [facility] Address [address] [place] [address] Care Team Providers Name Role Phone Elsewhere, Pcp Primary Care Provider Unavailable Reason for Visit Reason Onset Date Comments Outpatient COVID-19 Testing 06/28/2022 Encounter Details Date Type Department Care Team Description 06/28/2022 External Outreach Department of Family Jes Dillon ntact With And Medicine, Center [address] Roslyn Borrero R.N. (Yadi hernandez) Exposure Street Professional To COVID -19 (Primary Building in ) [place] [address] [place] [address] Social History Tobacco Use Types Packs/Day Years [...] or relatives? How often do you attend faith or More than 4 times per year 10/15/2019 hinduism services? Do you belong to any clubs or Yes 10/15/2019 organizations such as faith groups, unions, fraternal or athletic groups, or [...] PM CDT documented as of this encounter Progress Notes Roslyn Dillon, RCarmineN. - 06/28/2022 11:59 AM CDT Encounter created for COVID-19 screening. documented in this encounter Plan of Treatment Upcoming Encounters Date Type Specialty Care Team Description 10/11/2022 Appointment Laboratory Medicine Natasha Mullins APRN, C.N.P., M.S.N. [address] [place] [phone] (Wo rk) 10/11/2022 Ancillary Procedure Cardiovascular Disease Natasha Cramer APRN, C.N.P., M.S.N. [address] [place] [phone] (Wo rk) 10/11/2022 Appointment Cardiovascular Disease Natasha Mullins APRN, C.N.P., M.S.N. [address] [place] [phone] (Wo rk) 10/12/2022 Office Visit Cardiovascular Disease Natasha Mullins APRN, C.N.P., M.S.N. [address] [place] [phone] (Wo rk) documented as of this encounter Procedures Procedure Name Priority Date/Time Associated Comments Diagnosis SARS CORONAVIRUS 2 Routine 06/28/2022 12:12 Contact With And R esults for this PCR DETECT, V PM CDT (Suspected) procedure are in Exposure To the results COVID-19 section. documented in this encounter Results SARS Coronavirus 2 PCR Detect, V Asymptomatic (06/28/2022 12:12 PM CDT) [facility] Method Time Signature SARS-CoV-2 Swab, 06/28/2022 [facility] Specimen Nasopharynx 6:13 PM CDT Source SARS-CoV-2 Undetected Undetected 06/28/2022 [facility] RNA by PCR 6:13 PM CDT Comment: SARS-CoV-2 RNA absent. This result does not rule out COVID-19 in the patient, as the sensitivity of the test depends o n the timing of the specimen collection and the quality of the specim en. Result should be correlated with patient's history and clinical presentat ion. ----ADDITIONAL INFORMATION---- This RT-PCR test using the keturah SARS-Co V-2 assay ([employer] performed on the keturah 6800/8800 S ystem has received Emergency Use Authorization (EUA) by the U.S. Food and Drug Administration, and is modified from the transcriptionist's instructions wit h a bridging study. Performance characteristics were verified by [facility] inic in a manner consistent with CLIA requirements. Fact sheets for this Emergency Use Autho rization (EUA) assay can be found at the following links: For Healthcare Providers: https://www.[employer] a.gov/media/854705/download For Patients: https://www.fda.gov/media/ 415950/download Specimen Anatomical Collection Method Collection Time Receive d Time (Source) Location / / Volume Laterality Varies 06/28/2022 12:12 06/28/2022 1:35 (Nasopharynx) PM CDT PM CDT Radha Branham APRN.N.P., D.N.P. LAB MICROBIOLOGY - GENERAL ORDERABLES Performing Organization Address City/State/ZIP Code Phon e Number [facility] [address] [place], [place] [address] [place], [place] [address]t. [place] [address] Laboratory Medicine and Pathology [address] [place] documented in this encounter Visit Diagnoses Diagnosis Contact With And (Suspected) Exposure To COVID-19 - Primary documented in this encounter Additional Health Concerns Infection Onset Date Last Indicated Resolved Time COVID19 Pending 06/28/2022 06/28/2022 06/28/2022 6:14 PM CDT documented as of this encounter Care Teams Leather Goods Sales Representative Relationship Specialty Start Date End Date Elsewhere, Pcp PCP - General Family Medicine 10/25/18 documented as of this encounter
--- OUTSIDE RECORDS SUMMARY | 2022-08-27 11:22 | XMS_ITS | Encounter Summary ---
:1945 Author Organization [facility] Address [address] [place] [address] Care Team Providers Name Role Phone Elsewhere, Pcp Primary Care Provider Unavailable Reason for Visit Outpatient (Routine) - Closed Specialty Diagnoses / Procedures Referred By Contact Refer red To Contact Dante Brown M.D. [facility] [address] [place] [phone] Referral ID Status Reason Start Date Expiration Date Visits Requ ested Visits Authorized [id number] Closed 04/09/2022 04/09/2023 1 1 Encounter Details Date Type Department Care Team Description 04/23/2022 Virtual Visit Division of Shade Brown B Cell Lymphoma Lymph Nodes Of Multiple Sites (HCC); Hematology in Dante Garcia M.D. Anemia Iron Deficiency [place], [place] [address] [place] [address] [place] [phone] Social History Tobacco Use Types Packs/Day Years [...] or relatives? How often do you attend advent or More than 4 times per year 10/15/2019 taoism services? Do you belong to any clubs or Yes 10/15/2019 organizations such as advent groups, unions, [employer] or athletic groups, or school groups? How [...] documented as of this encounter Progress Notes Dante Brown M.D. - 04/23/2022 8:30 AM CDT Levi Khanna last appoingment date: April 09, 2022 I personally spent 35 minutes completing extensive medical record review, an extensive phone call with the patient and/or family member. and communication with other health day care provider related to ongoing patient management concerning Levi Khanna 's anemia. Called the patient on his cell phone. Reviewed with him the results of his laboratory tests obtainedJun2021. Pertinent results include hemoglobin of 13.1 (compared to 12.8 on April 08, 2022), normal MCV, normal platelet count, normal white blood cell count and differential. Normal reticulocyte count, no evidence of hemolysis on the basis of LDH and haptoglobin levels. Ferritin of 32. Explained to the patient that these results indicate the possibility that his anemia secondary to iron deficiency. I recommended iron supplementation with [id number] ferrous sulfate for the next 3 months. Also explained that iron deficiency in adults over the age of 50 it is something that needsfurther evaluation to rule out the possibility of gastrointestinal blood loss from GI tract neoplasms. I asked him to make an appointment with his primary care physician to make sure he is up-to-date on his colorectal cancer screening. I recommend colonoscopy in his case over noninvasive testing such as Cologuard or Hemoquant. He voiced understanding and will follow-up on my recommendations. In terms of his lymphoma follow-up, unchanged from my previous note. He will return to clinic for yearly surveillance around March of 2023. documented in this encounter Plan of Treatment Upcoming Encounters Date Type Specialty Care Team Description 10/11/2022 Appointment Laboratory Medicine Natasha Mullins, VY, C.N.P., M.S.N. [address] [place] [phone] (Wo rk) 10/11/2022 Ancillary Procedure Cardiovascular Disease Natasha Cramer APRN, Radha.N.P., M.S.N. [address] [place] [phone] (Wo rk) 10/11/2022 Appointment Cardiovascular Disease Natasha Mullins APRN, Radha.N.[place]., M.S.N. [address] [place] [phone] (Joanie rk) 10/12/2022 Office Visit Cardiovascular Disease Natasha Mullins APRN, Radha.N.[place]., M.S.N. [address] [place] [phone] (Joanie rk) documented as of this encounter Visit Diagnoses Diagnosis Unspecified B Cell Lymphoma Lymph Nodes Of Multiple Sites (HCC) Anemia Iron Deficiency documented in this encounter Care Teams Control Analyst Relationship Specialty Start Date End Date Elsewhere, Pcp PCP - General Family Medicine 10/25/18 documented as of this encounter
--- OUTSIDE RECORDS SUMMARY | 2022-08-27 11:22 | XMS_ITS | Clinical Summary ---
:1945 Author Organization [facility] Address [address] [place] [address] Care Team Providers Name Role Phone Elsewhere, Pcp Primary Care Provider Unavailable Source Comments Patient records contain information from all sites at [facility]. For routine questions regarding patient records, call [phone] during business hours, M-F 8:00 AM - 5:00 PM Central Time. Record requests for emergency care only can be directed to [phone] at any time.[facility] Allergies Active Allergy Reactions Severity Noted Date Comments Sulfamethoxazole-Trimeth GI intolerance 06/09/2021 oprim Clindamycin Other (see comments) 11/17/2007 Unknown . Iodinated Contrast Media Itching 11/17/2007 Pos sible adverse reaction to iodinated contr ast given at eye ce nter in 2006. Visi [address] scan on 12/12/13. No reaction noted. Mold Other (see comments) 08/24/2015 Unknown . Penicillins Other (see comments) 08/24/2015 Unknown . Pneumococcal Vaccine Other (see comments) 12/24/2014 Headache and body ache Pollen Extracts Other (see comments) 07/10/2010 Shellfish Containing Nausea And Vomiting 07/07/2015 Products Medications Medication Sig Dispensed Refills Start Date End Date Status fluticasone Inhale 1 puff 0 08/25/2015 Act addie propion-salmeteroL daily as needed. 250-50 mcg/dose diskus inhaler aspirin [address] Take 81 mg by 0 08/27/2015 Active tablet mouth daily. Take for life. cetirizine (ZyrTEC) Take 10 mg by 0 08/24/2015 Active 10 mg tablet mouth daily. montelukast Take 1 tablet by 0 08/25/2015 Active (SINGULAIR) 10 mg mouth at bedtime. tablet albuterol (PROVENTIL Inhale 1-2 puffs 0 03/31/2018 Active HFA,VENTOLIN HFA) 90 as needed for mcg/actuation wheezing or inhaler shortness of breath. multivitamin tablet Take 1 tablet by 0 Active mouth daily. tamsulosin (FLOMAX) Take 0.4 mg by 0 12/12/2020 Active 0.4 mg 24 hr capsule mouth daily. calcium carbonate Chew 1 tablet 2 0 Active (TUMS) 500 mg (200 (two) times a day mg calcium) chewable as needed for tablet indigestion or heartburn. acetaminophen Take 2 capsules 0 05/27/2021 Active (TYLENOL) 500 mg (1,000 mg total) capsule by mouth every 6 (six) hours as needed for pain. carvediloL (COREG) Take 1 tablet (25 180 tablet 3 10/16/2021 1 12/17/2021 Active 25 mg tablet mg total) by mouth 2 (two) times a day. clopidogreL (PLAVIX) Take 1 tablet (75 90 tablet 3 10/16/2021 10/16/2022 Active 75 mg tablet mg total) by mouth daily. lisinopriL Take 1 tablet (40 90 tablet 3 10/16/2021 10/16/2022 Active (PRINIVIL,ZESTRIL) mg total) by mouth 40 mg tablet daily. nitroglycerin Place 1 tablet 25 tablet 3 10/16/2021 10/16/2022 Active (NITROSTAT) 0.4 mg (0.4 mg total) SL tablet under the tongue as needed for chest pain. May repeat every 5 x 2. If no relief with 3rd tab call 911. rosuvastatin Take 1 tablet (40 90 tablet 3 10/16/2021 10/16/20 22 Active (Crestor) 40 mg mg total) by mouth tablet daily. levothyroxine Take 1 tablet (200 90 tablet 3 12/17/2021 Active (SYNTHROID, mcg total) by LEVOTHROID) 200 mcg mouth daily. 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 (Suspected) Exp osure To COVID-19 (Pr imary Dx) from Last 3 Months Immunizations Name Administration Dates Next Due HepA, Unspecified 10/17/2003, 12/24/2002 Influenza, Unspecified 10/30/2007 SARS-COV-2 (COVID-19) - PFIZER TS(12 years or older) 022 Td (Adult), adsorbed 01/10/2009 influenza high dose (65 years or older) (PF) 09/05/2019 Family History Medical History Relation Name Comments Coronary artery disease Father vanessa lovell Asthma Mother kyle lovell Hypertension Mother kyle lovell Migraines Mother kyle lovell Relation Name Status Comments Father vanessa lovell Mother kyle lovell Social History Tobacco Use Types Packs/Day Years [...] or relatives? How often do you attend jain or More than 4 times per year 10/15/2019 pentecostal services? Do you belong to any clubs or Yes 10/15/2019 organizations such as jain groups, unions, fraternal or athletic groups, or [...] Date Recorded Male 03/01/2019 1:23 PM CDT Last Filed Vital Signs Vital Sign Reading Time Taken Comments Blood Pressure 125/80 04/09/2022 9:41 AM CDT Pulse 75 04/09/2022 9:41 AM CDT Temperature 36.3 ??C (97.3 ??F) 04/09/2022 9:41 AM CDT Respiratory Rate 16 06/03/2021 12:22 PM CDT Oxygen Saturation 94% 05/27/2021 6:05 PM CDT Inhaled Oxygen Concentration - - Weight 82.6 kg (181 lb 15.8 oz) 04/09/2022 9:41 AM CDT Height 175.4 cm (5' 9.06) 04/09/2022 9:41 AM CDT Body Mass Index 26.83 04/09/2022 9:41 AM CDT Plan of Treatment Upcoming Encounters Date Type Specialty Care Team Description 10/11/2022 Appointment Laboratory Medicine Natasha Mullins APRN, C.N.P., M.S.N. [address] [place] [phone] (Joanie velázquez) 10/11/2022 Ancillary Procedure Cardiovascular Disease Natasha Cramer APRN, Radha.N.P., M.S.N. [address] [place] [phone] (Joanie velázquez) 10/11/2022 Appointment Cardiovascular Disease Natasha Mullins APRN, Radha.N.P., M.S.N. [address] [place] [phone] (Joanie velázquez) 10/12/2022 Office Visit Cardiovascular Disease Natasha Mullins APRN, Radha.N.P., M.S.N. [address] [place] [phone] (Joanie velázquez) Health Maintenance Due Date Last Done Comments Hepatitis C Screening 1945 DTaP,Tdap,and Td Vaccines (1 - 01/11/2009 01/10/2009, 01/10 Tdap) Zoster Vaccines (1 of 2) 01/21/2012 11/26/2011 Pneumococcal vaccine (65+ years) 09/07/2013 09/07/2012 (2 - PCV) Depression Screening (Annual 11/14/2021 PHQ-2) Fall Risk Screen (Annual) 11/14/2021 COVID-19 Vaccine (5 - Booster for 06/21/2022 04/26/2022, , Pfizer series) 01/22/2021, Additional history exists Sodium Level 10/16/2022 10/16/2021, 10/15/2020, 02/13/2020, Additional history exists Thyroid Stimulating Hormone (TSH) 12/17/2022 12/17/2021, , test for thyroid function 04/28/2020, Additional history exists Creatinine Level 04/08/2023 04/08/2022, 10/16/2021, 04/22/2021, Additional history exists Potassium Level 04/08/2023 04/08/2022, 10/16/2021, 03/17/2021, Additional history exists Office Visit for Blood Pressure 04/09/2023 04/09/2022 Check / Re-check Influenza Vaccine Completed 08/03/2022, 09/10/2021, 09/03/2020, Additional history exists Medical Devices Implanted Type Area Server Cashier Device Shelf Model / Identifier Expiration Serial / Date Lot Premier 2.75 X 12 - [id number] Cardiac [place] Implanted: Qty: 1 on 08/24/2015 [employer] Description: Device Server Cashier - iWatt. Device Status Text - [id number]. [facility] Erin Polyprp Knit 6x6 - [id number] Mesh or Patch Le ft: Inguinal Ethicon 04/13/2025 PMH / Implanted: Qty: 1 on 01/16/2021 by Katty Hartley M.D. at [facility] / QGBQA Procedures Procedure Name Priority Date/Time Associated Comments Diagnosis SARS CORONAVIRUS 2 Routine 06/28/2022 12:12 Contact With And R esults for this PCR DETECT, V PM CDT (Suspected) procedure are in Exposure To the results COVID-19 section. from Last 3 Months Results SARS Coronavirus 2 PCR Detect, V Asymptomatic (06/28/2022 12:12 PM CDT) [facility] Method Time Signature SARS-CoV-2 Swab, 06/28/2022 [facility] Specimen Nasopharynx 6:13 PM CDT Source SARS-CoV-2 Undetected Undetected 06/28/2022 [facility] RNA by PCR 6:13 PM CDT [...] using the keturah SARS-Co V-2 assay ([employer] [employer] performed on the keturah 6800/8800 S ystem has received Emergency Use Authorization (EUA) by the U.S. Food and Drug Administration, and is modified from the process safety management engineer's instructions wit h a bridging study. Performance characteristics were verified by [facility] inic in a manner consistent with CLIA requirements. Fact sheets for this Emergency Use Autho rization (EUA) assay can be found at the following links: For Healthcare Providers: https://www.[employer] a.gov/media/243633/download For Patients: https://www.fda.gov/media/ 647778/download Specimen Anatomical Collection Method Collection Time Receive d Time (Source) Location / / Volume Laterality Varies 06/28/2022 12:12 06/28/2022 1:35 (Nasopharynx) PM CDT PM CDT Monika Guzman APRN C.N.P., D.N.P. LAB MICROBIOLOGY - GENERAL ORDERABLES Performing Organization Address City/State/ZIP Code Phon e Number [facility] [address] [place] [address] [facility] [place] [address] Laboratory Medicine and Pathology [address] [place] from Last 3 Months Insurance Payer Benefit Plan Subscriber ID Effective Phone Address Typ e / Group Dates MEDICARE MEDICARE A [id number] 2012-Pres [address] [place] [address] [employer] [place] [id number] 2016-Prese [phone] [address] Indemnity [place] [id number] ELISA [place]IVER[place] [address] Advance Directives For more information, please contact: [phone] Latest Code Status on File Code Status Date Activated Date Inactivated Comments Full Code 05/27/2021 2:58 PM 05/27/2021 8:21 PM Full Code: Not Discussed Due to: Patient does not have the capacity Care Teams [employer] Supervisor Relationship Specialty Start Date End Date Elsewhere, Pcp PCP - General Family Medicine 10/25/18
--- OUTSIDE RECORDS SUMMARY | 2022-08-27 11:22 | XMS_ITS | Encounter Summary ---
:1945 Author Organization [facility] Address [address] [place] [address] Care Team Providers Name Role Phone Elsewhere, Pcp Primary Care Provider Unavailable Encounter Details Date Type Department Care Team Description 04/16/2022 Hospital Encounter Department of [facility] Unspecif ied B Cell Laboratory Medicine Dante Muniz, Lymp joe Lymph in Mariusz Vazquez M.D. [facility] [address] [place] [address] ([facility]) [address] [place] [address] [place] [id number] [place], [place] [phone] (Work) [phone] Social History Tobacco Use Types Packs/Day Years [...] or relatives? How often do you attend yarsanism or More than 4 times per year 10/15/2019 restoration services? Do you belong to any clubs or Yes 10/15/2019 organizations such as yarsanism groups, unions, fraternal or athletic groups, or [...] 10/11/2022 Appointment Laboratory Medicine Natasha Mullins APRN, C.N.Jalen, M.S.N. [address] [place] [phone] (Wo rk) 10/11/2022 Ancillary Procedure Cardiovascular Disease Natasha Cramer APRN, Radha.N.Jalen, M.S.N. [address] [place] [phone] (Wo rk) 10/11/2022 Appointment Cardiovascular Disease Natasha Mullins APRN, Radha.N.Franklin., M.S.N. [address] [place] [phone] (Wo rk) 10/12/2022 Office Visit Cardiovascular Disease Natasha Mullins APRN, Radha.N.P., M.S.N. [address] [place] [phone] (Wo rk) documented as of this encounter Procedures Procedure Name Priority Date/Time Associated Comments Diagnosis RETICULOCYTES, B Routine 04/16/2022 8:19 AM Unspecified B Cell Results for this CDT Lymphoma Lymph procedure are in Nodes Of Multiple the result s Sites (HCC) section. CBC WITH DIFFERENTIAL, Routine 04/16/2022 8:19 AM Unspecified B Cell Results for this B CDT Lymphoma Lymph procedure are in Nodes Of Multiple the result s Sites (HCC) section. LACTATE DEHYDROGENASE Routine 04/16/2022 8:18 AM Unspecified B Cell Results for this (LD), S CDT Lymphoma Lymph procedure are in Nodes Of Multiple the result s Sites (HCC) section. HAPTOGLOBIN, S Routine 04/16/2022 8:18 AM Unspecified B Cell R esults for this CDT Lymphoma Lymph procedure are in Nodes Of Multiple the result s Sites (HCC) section. FERRITIN, S Routine 04/16/2022 8:18 AM Unspecified B Cell Res ults for this CDT Lymphoma Lymph procedure are in Nodes Of Multiple the result s Sites (HCC) section. documented in this encounter Results Reticulocytes (04/16/2022 8:19 AM CDT) P athologist Signature Reticulocytes, B 1.44 0.60 - 04/16/2022 [facility] 2.71 % 3:25 PM CDT Absolute 62.1 30.4 - 04/16/2022 [facility] Reticulocyte 110.9 3:25 PM CDT x10(9)/L Specimen Anatomical Collection Method Collection Time Receive d Time (Source) Location / / Volume Laterality Blood (Blood, 04/16/2022 8:19 AM 04/16/20 22 Venous) CDT 12:51 PM CDT Datne Muniz M.D. LAB BLOOD ADD-ON Performing Organization Address City/State/ZIP Code Phon e Number [facility]- [address] [place] [address] [facility] [place] [address] System in [place] [address] [facility] (ABNORMAL) CBC with Differential, Blood (04/16/2022 8:19 AM CDT) Patholo gist Method Time Signature Hemoglobin 13.1 (L) [...] Organization Address City/State/ZIP Code Phon e Number [address] [address] [place] [address] System in [address] LD (Lactate Dehydrogenase) (04/16/2022 8:18 AM [...] Organization Address City/State/ZIP Code Phon e Number [facility]- [address] [place] [address] [place] [address] System in [place] [address] Haptoglobin (04/16/2022 8:18 AM CDT) athologist Signature Haptoglobin, S 168 30 - 200 04/16/2022 [facility] mg/dL 3:10 PM CDT Specimen Anatomical Collection Method Collection Time Receive d Time (Source) Location / / Volume Laterality Blood (Blood, 04/16/2022 8:18 AM 04/16/20 2:37 Venous) CDT PM CDT Dante Muniz M.D. LAB BLOOD ADD-ON Performing Organization Address City/[facility]/ZIP Code Phon e Number [facility]- [address] [place] [address] [phone] [facility] [place] [address] System in [address] Ferritin (04/16/2022 8:18 AM CDT) athologist [...] Organization Address City/State/ZIP Code Phon e Number [facility]- [address] [place] [place] [address] [facility] [place] [address] System in [place] [address] documented in this encounter Visit Diagnoses Diagnosis Unspecified B Cell Lymphoma Lymph Nodes Of Multiple Sites (HCC) documented in this encounter Care Teams Cat Scanner Operator Relationship Specialty Start Date End Date Elsewhere, Pcp PCP - General Family Medicine 10/25/18 documented as of this encounter
--- OUTSIDE RECORDS SUMMARY | 2022-08-27 11:23 | XMS_ITS | Encounter Summary ---
:1945 Author Organization [facility] Address [address] [place] [address] Care Team Providers Name Role Phone Elsewhere, Pcp Primary Care Provider Unavailable Reason for Referral Outpatient (Routine) - Closed Specialty Diagnoses / Procedures Referred By Contact Refer red To Contact Otorhinolaryngology Da Carr [place] M.D. [address] [place] [address] Referral ID Status Reason Start Date Expiration Date Visits Requ ested Visits Authorized [id number] Closed 06/09/2021 06/09/2022 1 1 Scheduling Instructions Please schedule in 3-4 months Please coordinate with END Dr. Wu Reason for Visit Outpatient (Routine) - Closed Specialty Diagnoses / Procedures Referred By Contact Breanne brush To Contact Otorhinolaryngology Alisson Garrett M.D. [facility] [address] [place] [phone] Referral ID Status Reason Start Date Expiration Date Visits Requ ested Visits Authorized [id number] Closed 06/03/2021 06/03/2022 1 1 Encounter Details Date Type Department Care Team Description 06/09/2021 Office Visit Department of [facility], Follow Up Exam ination Otorhinolaryngology in Da Carballo M.D. Posto perative Visit [place], [place] (Primary Dx) [address] [place] [phone] Social History Tobacco Use Types Packs/Day Years [...] or relatives? How often do you attend scientology or More than 4 times per year 10/15/2019 orthodox services? Do you belong to any clubs or Yes 10/15/2019 organizations such as scientology groups, unions, fraternal or athletic groups, or [...] documented as of this encounter Progress Notes Alisson Garrett M.D. - 06/09/2021 2:30 PM CDT SUBJECTIVE CHIEF COMPLAINT / REASON FOR VISIT Mr. Khanna is a 75 y.o. male who returns for follow-up HISTORY OF PRESENT ILLNESS Mr. Khanna returns to clinic today for re-evaluation of his right neck after he had a right revisionlevel 4 neck dissection on 05/27/2021 and developed a postoperative seroma/hematoma. At that time a small opening in his incision was made and a Bruce drain was placed. Patient states that since his previous visit he has done very well in the swelling has improved greatly. No concerning symptoms for infection with erythema, warmth, purulent drainage from the Justin. He has had some very mild amount of bloody drainage from this site. This has essentially stopped overthe last couple of days. He initially was taking Bactrim but was having GI intolerance to this and stop this medication and is no longer taking it. He does not have any new concerns on today's exam. OBJECTIVE PHYSICAL EXAMINATION General: 75 y.o. male in no acute distress. Ambulates on and off the exam table without difficulty. Neck/Incision: Neck incision is clean dry and intact with small area of the medial incision open from previous visit. Justin drain sutured in place which was removed today. No significant drainage expressed from the residual opening. Small piece of gauze was taped over this small opening. Neck swelling is improved compared to previous visit. No bruising. No signs of infection with no erythema, warmth, induration, purulent drainage. 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 Khanna today. He returns after 1 week today for removal of Justin drain that was placed for a postoperative seroma. His neck swelling has improved greatly since his previous visit. Small amount of some mild residual swelling. No signs of infection today. Unable to express any residual drainage from the opening in the incision. Justin drain removed today. We discussed ongoing things to look out for with regards to his neck wound which include watching for signs of infection. He region was plan for an 8 week follow-up visit however due to these last few appointments we feel comfortable pushing on his return visit to a four-month follow-up in coordination with endocrinology. He was in agreement with this plan. All additional questions and concerns were addressed. Plan: 1. Follow up in 4 months in coordination with Dr. Bryce Garrett MD Resident PGY 3 Da Carr M.D. - 06/09/2021 2:30 PM CDT SUBJECTIVE CHIEF COMPLAINT/REASON FOR VISIT Supervisory note for Dr. Garrett. Right neck hematoma. HISTORY OF PRESENT ILLNESS Mr. Khanna returns following drainage of a hematoma and placement of a drain into his right inferiormedial neck incision. He returns feeling well without complaints. They have noted decreased swellingand minimal drainage. OBJECTIVE PHYSICAL EXAMINATION Skin: Dr. Garrett has removed the drain. The wound is examined. There is nice approximation of the skin at the drain site. There is no obvious fullness or swelling. ASSESSMENT / PLAN #1 Resolved right neck hematoma PLAN: Continued surveillance followup in approximately 4 months, coordinated with followup for his lymphoma. Discussed with the patient and spouse who expressed understanding. Da Carr M.D. CT CT Job ID: [id number] documented in this encounter Plan of Treatment Upcoming Encounters Date Type Specialty Care Team Description 10/11/2022 Appointment Laboratory Medicine Natasha Mullins APRN, Radha.N.P., M.S.N. [address] [place] [phone] (Joanie rk) 10/11/2022 Ancillary Procedure Cardiovascular Disease Natasha Cramer APRN, C.N.P., M.S.N. [address] [place] [phone] (Joanie rk) 10/11/2022 Appointment Cardiovascular Disease Natasha Mullins APRN, C.N.P., M.S.N. [address] [place] [phone] (Joanie rk) 10/12/2022 Office Visit Cardiovascular Disease Natasha Mullins APRN, C.N.P., M.S.N. [address] [place] [phone] (Joanie rk) Scheduled Referrals Name Type Priority Associated Order Schedule Diagnoses Otorhinolaryngology office Outpatient Routine E xpected: visit (clinic) Referral 09/09/2021 (Approximate), Expires: 06/09/2024 documented as of this encounter Visit Diagnoses Diagnosis Follow Up Examination Postoperative Visi t - Primary documented in this encounter Care Teams Shock Absorber Installer Relationship Specialty Start Date End Date Elsewhere, Pcp PCP - General Family Medicine 10/25/18 documented as of this encounter
--- OUTSIDE RECORDS SUMMARY | 2022-08-27 11:23 | XMS_ITS | Encounter Summary ---
:1945 Author Organization [facility] Address [address] [place] [address] Care Team Providers Name Role Phone Elsewhere, Pcp Primary Care Provider Unavailable Reason for Referral Outpatient (Routine) - Closed Specialty Diagnoses / Procedures Referred By Contact Refer red To Contact Diagnoses Chronic Systolic (Congestive) Heart Failure (HCC) [facility]an[facility]horacic (TTE) Danny MCCLELLANNRenetta, M.S.N. [address] [place] [phone] Referral ID Status Reason Start Date Expiration Date Visits Requ ested Visits Authorized [id number] Closed 10/15/2020 10/15/2021 1 1 E UP WORKER Reason for Visit Outpatient (Routine) - Closed Specialty Diagnoses / Procedures Referred By Contact Refer red To Contact Diagnoses Chronic Systolic (Congestive) Heart Failure (HCC) [facility] Tran[facility]horacic (TTE) Danny MCCLELLANNRenetta, M.S.N. [address] [place] [address] [phone] Referral ID Status Reason Start Date Expiration Date Visits Requ ested Visits Authorized [id number] Closed 10/15/2020 10/15/2021 1 1 Encounter Details Date Type Department Care Team Description 10/16/2021 Hospital Department of Chai Fagan, Chronic Sy stolic Encounter Cardiovascular VY Kaur, (Congestive) Heart Diseases in [place], C.N.P., M .S.N. Failure (HCC) [place] [address] [facility] [address] [place] [phone] Social History Tobacco Use Types Packs/Day Years [...] or relatives? How often do you attend denominational or More than 4 times per year 10/15/2019 amish services? Do you belong to any clubs or Yes 10/15/2019 organizations such as denominational groups, unions, fraternal or athletic groups, or [...] propion-salmeteroL as needed. 250-50 mcg/dose diskus inhaler lisinopriL Take 1 tablet (40 mg 90 tablet 3 10/16/2021 12/0 01/2022 (PRINIVIL,ZESTRIL) 40 total) by mouth mg tablet [...] mouth 0 mg 24 hr capsule daily. levothyroxine TAKE ONE TABLET BY 90 tablet 3 08/17/202101/2022 (SYNTHROID, LEVOTHROID) MOUTH EVERY DAY 200 mcg tablet documented as of this encounter Plan of Treatment Upcoming Encounters Date Type Specialty Care Team Description 10/11/2022 Appointment Laboratory Medicine Natasha Mullins APRN, C.N.P., M.S.N. [address] [place] [phone] (Joanie velázquez) 10/11/2022 Ancillary Procedure Cardiovascular Disease Natasha Cramer APRN, C.N.P., M.S.N. [address] [place] [phone] (Joanie velázquez) 10/11/2022 Appointment Cardiovascular Disease Natasha Mullins APRN, C.N.P., M.S.N. [address] [place] [phone] (Wo rk) 10/12/2022 Office Visit Cardiovascular Disease Natasha Mullins APRN, C.N.P., M.S.N. 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 documented in this encounter Results (TTE) 2D ECHO DOPPLER COLOR (10/16/2021 10:35 AM PASTE UP WORKER) [facility] gist Method Time Signature Ejection Fraction 54 MC CV EIMS Sinus of Valsalva 34 MC CV EIMS Mid-Ascending Aorta 40 MC CV EIMS Wall Motion Score 1.56 MC CV EIMS Index LV Mass Index 93 MC CV EIMS LV End-Diastolic 52 MC CV EIMS Diameter LV End-Systolic 36 MC CV EIMS Diameter LV End-Diastolic 135 MC CV EIMS Volume LV End-Systolic 62 MC CV EIMS Volume MV E Velocity 0.6 MC CV EIMS MV A Velocity 0.9 MC CV EIMS MV E/A 0.67 MC CV EIMS MV e' Velocity 0.06 MC CV EIMS Medial MV e' Velocity 0.08 MC CV EIMS Lateral MV E/e' Medial 10.0 MC CV EIMS MV E/e' Lateral 7.5 MC CV EIMS Left ventricular 48 MC CV EIMS stroke volume index Cardiac Output 6.06 MC CV EIMS Cardiac Index 3.12 MC CV EIMS LV Interventricular 10 MC CV EIMS Septal Wall Thickness LV Posterior Wall 9 MC CV EIMS Thickness LV Relative Wall 35 MC CV EIMS Thickness RV 4-Chamber Basal 40 MC CV EIMS Diameter RV 4-Chamber Mid 40 MC CV EIMS Diameter RV 4-Chamber Length 82 MC CV EIMS Tricuspid Annular S? 0.12 MC CV EIMS TR Vmax 2.52 MC CV EIMS RA Pressure 5 MC CV EIMS RV Systolic Pressure 30 MC CV EIM S AV mean gradient 16 MC CV EIMS Aortic valve area 1.67 MC CV EIMS Aortic Valve Area 0.86 MC CV EIMS Index Aortic Valve 0.34 MC CV EIMS Dimensionless Index LA Volume Index 36 MC CV EIMS WMSI At Rest 1.56 MC CV EIMS WMSI At Peak Stress 1.56 MC CV EIMS Anatomical Region Laterality Modality Echocardiography Specimen (Source) Anatomical Collection Method Collection Time Re ceived Time Location / / Volume Laterality 10/16/2021 9:03 AM PASTE UP WORKER Impressions 10/16/2021 10:58 AM PASTE UP WORKER LEFT VENTRICLE: ??Normal left ventricular chamber size. ??Normal left ventricular geometry. Calculated 3-D volumetric left ventricul ar ejection fraction 54 %. ??Calculated 2-D linear left ventricular ejection fraction 52 %. ??Ca lculated 2-D biplane volumetric left ventricular ejection fraction 54 %. ??Regional wall motion abnormalities were present (see wall motion graphics). ??Grade 1/3 left ventricular diastolic dysfunction, consistent with low to normal left ventricular filling pressure at res t. ??RIGHT VENTRICLE: ??Mildly enlarged right ventricular chamber size. ??Normal right ventricular systolic function. ??Estimated right ventricular systolic pressure 30 mmHg (systolic bloo d pressure 123 mmHg). ??ATRIA: ??Mildly enlarged left atrial size. ??Left atrial volume index 36 ml/m^2. ??Normal right atrial size by visual estimate. CARDIAC VALVES: ??Trileaflet aortic joss ve. ??Mild aortic valve stenosis. ??Aortic valve systolic mean Doppler gradient 16 mmHg. ??Aortic valve area by Doppler 1.67 cm^2. ??Mild aortic valve regurgitation. ??Mildly thickened mitral valve. ??Trivial mitral valve regurgitation. ??Normal pulmonary valve. ??Trivial pulmonary joss ve regurgitation. ??Mildly thickened tricuspid valve. Mild tricuspid valve regurgitation. ??OT HER ECHO FINDINGS: ??Normal inferior vena cava size with normal inspiratory collapse (>50%) (aguilar shepatic view). ??Normal sinus of Valsalva diameter (diameter 34 mm) Upper limit of normal i s 43 mm. ??Normal mid ascending aorta diameter (diameter 40 mm at mid level). ??Upper limit of no rmal is 42 mm. ??No abdominal aortic aneurysm. ??Normal abdominal aorta Doppler flow pattern. ?? Imaging inadequate for detection of atrial level shunt by color flow imaging. ??No intracardiac mass or thrombus, but the left atrial appendage cannot be visualized adequately with transthora cic echo to exclude thrombus in this location. ??No pericardial effusion. For the complete report, see the [employer] Documents. Narrative 10/16/2021 10:58 AM PASTE UP WORKER For the complete report, see the [employer] Documents. Final Impressions 1. Normal left ventricular chamber size, regional wall motion abnormalities were present (see wall motion graphics), calculated 3-D vo lumetric ejection fraction 54 %. 2. Mildly enlarged right ventricular catarino mber size, normal systolic function, estimated right ventricular systolic pressure 30 mmHg (s ystolic blood pressure 123 mmHg). 3. Mild aortic valve stenosis, valve are a by Doppler 1.67 cm^2, systolic mean Doppler gradient 16 mmHg. 4. Normal left ventricular geometry, gra de 1/3 diastolic dysfunction, consistent with low to normal filling pressure at rest. 5. No pericardial effusion. 6. Compared to the report of 10/15/2020 no significant change has occurred. Side by side comparison of images performed. Procedure Note Roel Soriano M.D. - 10/16/2021Format ting of this note might be different from the original. For the complete report, see the [employer] Documents. Final Impressions 1. Normal left ventricular chamber size, regional wall motion abnormalities were present (see wall motion graphics), calculated 3-D vo lumetric ejection fraction 54 %. 2. Mildly enlarged right ventricular catarino mber size, normal systolic function, estimated right ventricular systolic pressure 30 mmHg (s ystolic blood pressure 123 mmHg). 3. Mild aortic valve stenosis, valve are a by Doppler 1.67 cm^2, systolic mean Doppler gradient 16 mmHg. 4. Normal left ventricular geometry, gra de 1/3 diastolic dysfunction, consistent with low to normal filling pressure at rest. 5. No pericardial effusion. 6. Compared to the report of 10/15/2020 no significant change has occurred. Side by side comparison of images performed. Findings LEFT VENTRICLE: Normal left ventricular chamber size. Normal left ventricular geometry. Calculated 3-D volumetric left ventricul ar ejection fraction 54 %. Calculated 2- D linear left ventricular ejection fraction 52 %. Calc ulated 2-D biplane volumetric left ventricular ejection fraction 54 %. Regional wall mo tion abnormalities were present (see wall motion graphics). Grade 1/3 left ventricular di astolic dysfunction, consistent with low to normal left ventricular filling pressure at res t. RIGHT VENTRICLE: Mildly enlarged right ventricular chamber size. Normal right ventricular s ystolic function. Estimated right ventricular systolic pressure 30 mmHg (systolic bloo d pressure 123 mmHg). ATRIA: Mildly enlarged left atrial size. Left atrial volume index 36 ml/m^2. Normal right atrial size by visual estimate. CARDIAC VALVES: Trileaflet aortic valve . Mild aortic valve stenosis. Aortic valve systolic mean Doppler gradient 16 mmHg. Aortic va lve area by Doppler 1.67 cm^2. Mild aortic valve regurgitation. Mildly thickened mitral v alve. Trivial mitral valve regurgitation. Normal pulmonary valve. Trivial pulmonary valve regurgitation. Mildly thickened tricuspid valve. Mild tricuspid valve regurgitation. OTHE R ECHO FINDINGS: Normal inferior vena cava size with normal inspiratory collapse (>50%) (aguilar shepatic view). Normal sinus of Valsalva diameter (diameter 34 mm) Upper limit of normal i s 43 mm. Normal mid ascending aorta diameter (diameter 40 mm at mid level). Upper limit of norm al is 42 mm. No abdominal aortic aneurysm. Normal abdominal aorta Doppler flow pattern. Im aging inadequate for detection of atrial level shunt by color flow imaging. No intracardiac m ass or thrombus, but the left atrial appendage cannot be visualized adequately with transthora cic echo to exclude thrombus in this location. No pericardial effusion. For the complete report, see the [employer] Documents. Natasha Fagan APRN, C.N.P., M.S.N. CV ECHO [place] OCEDURES documented in this encounter Visit Diagnoses Diagnosis Chronic Systolic (Congestive) Heart Fail ure (HCC) documented in this encounter Care Teams Charter Boat Operator Relationship Specialty Start Date End Date Elsewhere, Pcp PCP - General Family Medicine 10/25/18 documented as of this encounter
--- OUTSIDE RECORDS SUMMARY | 2022-08-27 11:23 | XMS_ITS | Encounter Summary ---
:1945 Author Organization [facility] Address [address] [place] [id number] Care Team Providers Name Role Phone Elsewhere, Pcp Primary Care Provider Unavailable Reason for Referral Outpatient (Routine) - Closed Specialty Diagnoses / Procedures Referred By Contact Refer red To Contact Diagnoses Seroma Initial Da Carr M.D. [facility] Procedures Incision and Drainage [address] [place] [address] Referral ID Status Reason Start Date Expiration Date Visits Requ ested Visits Authorized [id number] Closed 06/03/2021 06/03/2022 1 1 Outpatient (Routine) - Closed Specialty Diagnoses / Procedures Referred By Contact Refer red To Contact Otorhinolaryngology Alisson Garrett M.D. [facility] [address] [place] [phone] Referral ID Status Reason Start Date Expiration Date Visits Requ ested Visits Authorized [id number] Closed 06/03/2021 06/03/2022 1 1 Reason for Visit Appointment Request (Routine) - Closed Specialty Diagnoses / Procedures Referred By Contact Refer red To Contact Otorhinolaryngology Referral ID Status Reason Start Date Expiration Date Visits Requ ested Visits Authorized [id number] Closed 06/02/2021 06/02/2022 1 1 Encounter Details Date Type Department Care Team Description 06/03/2021 Office Visit Department of Paul Carr Initial Otorhinolaryngology in Da Carballo M.D. (Prim latesha Dx) [place], [place] [address] [place] [phone] Social History Tobacco Use Types Packs/Day [...] or relatives? How often do you attend episcopalian or More than 4 times per year 10/15/2019 confucianist services? Do you belong to any clubs or Yes 10/15/2019 organizations such as episcopalian groups, unions, fraternal or athletic groups, or [...] Sign Reading Time Taken Comments Blood Pressure 115/76 06/03/2021 12:22 PM CDT Pulse 76 06/03/2021 12:22 PM CDT Temperature - - Respiratory Rate 16 06/03/2021 12:22 PM CDT Oxygen Saturation - - Inhaled Oxygen Concentration - - Weight - - Height - - Body Mass Index - - documented in this encounter Progress Da Rodgers M.D. - 06/03/2021 11:00 AM CDT SUBJECTIVE This is a postop check. CHIEF COMPLAINT/REASON FOR VISIT Right neck swelling. HISTORY OF PRESENT ILLNESS Mr. Khanna is a 75-year-old gentleman who underwent a right area IV neck dissection May 27, 2021, for metastatic papillary thyroid cancer. He also has a history of CLL. He had a small area of swellingabove the incision noted, which seemed relatively stable, but on Tuesday of this week (the date of restarting plavix) noticed an overall general increase in size of the swelling in the right neck without pain and without significant discoloration. He presents for re- evaluation. I have interviewed and examined the patient. I reviewed Dr. Garrett's evaluation and find it accurate. OBJECTIVE PHYSICAL EXAMINATION Examination of the neck reveals the incision to be intact. There is diffuse swelling along the anterior border of the sternocleidomastoid muscle inferiorly. It is not exquisitely tender and is not overly firm or tense. ASSESSMENT / PLAN #1 Probable right neck seroma vs hematoma PLAN: Reopen the inferior medial portion of the incision, drainage, drain placement. Discussed with the patient and spouse who expressed understanding. Will plan to proceed while they are here. Da Carr M.D. CT CT Job ID: [id number] Alisson Garrett M.D. - 06/03/2021 11:00 AM CDT SUBJECTIVE CHIEF COMPLAINT / REASON FOR VISIT Mr. Khanna is a 75 y.o. male who returns for postoperative follow-up due to surgical site swelling HISTORY OF PRESENT ILLNESS Mr. Khanna returns to clinic today after a revision right level 4 neck dissection for recurrent papillary thyroid carcinoma. He had 2 of 18 nodes positive on that surgery. He did fairly well for the first couple of days after surgery but called in last Tuesday with some concerns for a very small area of swelling on the superior medial border of his incision. This was monitored over the weekend with several pictures and seemed to resolve. On Tuesday he noted much more significant swelling to his right neck that extended beyond the area of just his incision. This was fairly fluctuant. There is no overlying skin changes. No associated pain, no fevers, erythema, drainage from the wound. He comes in today to get this evaluated. He feels as though since Tuesday this is not changed significantly. He has not had any dysphagia or airway related concerns. No stridor. He does feel some pressure in his neck as result of this. As reminder this patient does take Plavix for his cardiac history and restarted this on Tuesday. He has no add itional concerns today. OBJECTIVE PHYSICAL EXAMINATION General: 75 y.o. male in no acute distress. Ambulates on and off the exam table without difficulty. Neck/Incision: Incision is clean dry and intact. He does have a small amount of swelling above the superior medial border of the incision. This is fairly unremarkable. More notably he has approximatelya 4 cm x 4 cm area of swelling in his right neck that seems potentially to be overlying the SCM. This is fluctuant and fairly soft. Nontender to palpation. No overlying skin changes, erythema, warmth. Nose: Mucous membranes moist, no rhinorrhea Oral cavity: Mucous membranes moist Neuro: No focal neurologic deficits Respiratory: No stridor or shortness of breath Procedure note: Incision and drainage neck fluid collection. Please see additional procedure note for description ofthis DIAGNOSTICS Pathology: FINAL DIAGNOSIS A. ??Lymph nodes, right neck area IV, dissection: Multiple (2 of 18) lymph nodes are involved by metastatic papillary carcinoma. ASSESSMENT / PLAN DIAGNOSIS/PLAN: #1 Metastatic papillary thyroid cancer status post right revision level 4 neck dissection on 05/27/2021 #2 Postoperative seroma versus hematoma now status post incision and drainage with Wayne drain placement #3 History of lymphoma #4 Bilateral nasal polyps It was my pleasure to see Mr. Khanna today. As reminder he underwent a right level 4 neck dissectionfor recurrent PTC. He had 2 of 18 nodes positive. He unfortunately developed some right-sided neck swelling on Tuesday which has remained stable since Tuesday however has remained persistent. This appeared to be consistent with either a seroma or less likely hematoma so decision was made to proceed withincision and drainage of this fluid collection in the office today. Verbal consent was obtained and a small incision was made on medial aspect of the previous incision. We were able to express dark blood colored fluid which could likely represent either hematoma or mixture of hematoma and seroma. After more fluid was expressed from the wound small Bruce drain was placed and sutured in place. The patient tolerated this procedure well. He will be sent home with some fluff dressings and burn netting to perform dressing changes for additional drainage. We will plan on seeing him back in 1 week for removal of the drain. He has any additional questions or concerns he can reach out to us at any time. Additionally will place him on antibiotic prophylaxis. Due to his allergies which include penicillins and clindamycin we elected to place him on Bactrim for 1 week. Patient was in agreement with this plan. All additional questions and concerns were addressed. Plan: 1. Follow up in 1 week 2. Continue at least daily dressing changes or is saturated for neck drain 3. Bactrim for 1 week Alisson Garrett MD Resident PGY 3 documented in this encounter Procedure Notes Alisson Garrett M.D. - 06/03/2021 11:00 AM CDTAssociated Order(s): Incision and Drainage Post-Procedure Diagnose(s): Seroma Initial Incision and Drainage Date/Time: 06/03/2021 12:03 PM Performed by: Alisson Garrett M.D. Authorized by: Da Carr M.D. Care team members present 1. Alisson Garrett M.D. 2. Da Carr M.D. PROCEDURE DETAILS Complexity: simple Ultrasound image guidance used to localize target, identify at risk structures, and dynamically usedto direct therapy to the target. Image(s) not saved. Needle aspiration: no Incision types: single straight Incision depth: subcutaneous Incision length (cm): 1 (through originial incision) Scalpel blade: 15 Wound management: probed and deloculated and manually decompressed Drainage: bloody Drainage amount: moderate Wound treatment: wound left open and drain placed CONSENT Consent obtained: verbal Consent given by: patient The benefits, risks and alternatives to the procedure and the potential need for sedation or anesthesia as well as the names, roles, and responsibilities of healthcare team members performing significant interventional tasks were discussed with the patient and/or decision maker. PRE PROCEDURE DETAILS Indication: seroma Location: neck Neck location: right lateral Length (cm): 4 Width (cm): 2 Site preparation: povidone-iodine SEDATION / ANESTHESIA Anesthesia method: local infiltration Local anesthetic: lidocaine 1% WITH epi POST PROCEDURE DETAILS Procedure completed successfully: yes Tetanus status up to date: Unknown Complications: no immediate complications Comments After small incision was made wound was explored using mosquito and bloody drainage was encountered.Manual decompression and further probing revealed further bloody drainage. Once a fair amount of fluid was expressed a quarter- inch Bruce drain was placed using a mosquito. This was sutured in place using a 4-0 Ethilon suture. Fluff gauze was placed around the drain and a burn netting was placed around the neck to hold this in place. ATTESTATION STATEMENT Do not bill procedure: post surgical OPERATIVE NOTE INFORMATION Drains: 11/17 in bruce draine sutured in place documented in this encounter Plan of Treatment Upcoming Encounters Date Type Specialty Care Team Description 10/11/2022 Appointment Laboratory Medicine Natasha Mullins APRN, Rdaha.N.PCarmine, M.S.N. [address] [place] [phone] (Joanie rk) 10/11/2022 Ancillary Procedure Cardiovascular Disease Natasha Cramer APRN, C.N.P., M.S.N. [address] [place] [phone] (Joanie rk) 10/11/2022 Appointment Cardiovascular Disease Natasha Mullins APRN, C.N.P., M.S.N. [address] [place] [phone] (Joanie rk) 10/12/2022 Office Visit Cardiovascular Disease Natasha Mullins APRN, C.N.P., M.S.N. [address] [place] [phone] (Joanie velázquez) Scheduled Referrals Name Type Priority Associated Order Schedule Diagnoses Otorhinolaryngology office Outpatient Routine E xpected: visit (clinic) Referral 06/09/2021 (Approximate), Expires: 06/03/2024 documented as of this encounter Procedures Procedure Name Priority Date/Time Associated Diagnosis Comme nts INCISION AND Routine 06/03/2021 12:03 PM Seroma Initial Result s for this DRAINAGE CDT procedure are i n the results section. documented in this encounter Results Incision and Drainage (06/03/2021 12:03 PM CDT) Narrative Da Carr M.D. - 06/03/2021 12 :03 PM CDT Alisson Garrett M.D. ? 06/04/2021 ??7:53 AM Incision and Drainage Date/Time: 06/03/2021 12:03 PM Performed by: Alisson Garrett M.D. Authorized by: Da Carr M.D. Care team members present 1. Alisson Garrett M.D. 2. Da Carr M.D. PROCEDURE DETAILS Complexity: simple Ultrasound image guidance used to locali ze target, identify at risk structures, and dynamically used to dire ct therapy to the target. Image(s) not saved. Needle aspiration: no ?? Incision types: single straight Incision depth: subcutaneous Incision length (cm): 1 (through origini al incision) Scalpel blade: 15 Wound management: probed and deloculated and manually decompressed Drainage: bloody Drainage amount: moderate Wound treatment: wound left open and mikel in placed CONSENT Consent obtained: verbal Consent given by: patient The benefits, risks and alternatives to the procedure and the potential need for sedation or anesthesia as well as the names, roles, and responsibilities of healthcare team memb ers performing significant interventional tasks were discussed with the patient and/or decision maker. PRE PROCEDURE DETAILS Indication: seroma Location: neck Neck location: right lateral Length (cm): 4 Width (cm): 2 Site preparation: povidone-iodine SEDATION / ANESTHESIA Anesthesia method: local infiltration Local anesthetic: lidocaine 1% WITH epi POST PROCEDURE DETAILS Procedure completed successfully: yes ?? Tetanus status up to date: ??Unknown Complications: no immediate complication s ?? Comments After small incision was made wound was explored using mosquito and bloody drainage was encountered. ??Manual decom pression and further probing revealed further bloody drainage. ??Once a fair amount of fluid was expressed a quarter-inch Bruce drain w as placed using a mosquito. ??This was sutured in place using a 4-0 Ethilon suture. ??Fluff gauze was placed around the drain and a burn netting was placed around the neck to hold this in place. ATTESTATION STATEMENT Do not bill procedure: post surgical OPERATIVE NOTE INFORMATION Drains: 11/17 in bruce draine sutured in place Da Carr M.D. PROCEDURE/MINOR SURGICAL ORD ERABLES documented in this encounter Visit Diagnoses Diagnosis Seroma Initial - Primary documented in this encounter Additional Health Concerns Infection Onset Date Last Indicated Resolved Time COVID19 Pending 06/03/2021 06/03/2021 06/03/2021 3:03 PM CDT documented as of this encounter Care Teams [employer] Supervisor Relationship Specialty Start Date End Date Elsewhere, Pcp PCP - General Family Medicine 10/25/18 documented as of this encounter
--- OUTSIDE RECORDS SUMMARY | 2022-08-27 11:23 | XMS_ITS | Encounter Summary ---
:1945 Author Organization [facility] Address [address] [place] [address] Care Team Providers Name Role Phone Elsewhere, Pcp Primary Care Provider Unavailable Encounter Details Date Type Department Care Team Description 10/15/2021 Clinical Communication Department of Chai Fagan, Cardiovascular Medicine VY Kaur, in [facility] milan CCarmineNRenetta, M.S.N. [address] [facility] [address] [place] [phone] Social History Tobacco Use Types Packs/Day Years [...] More than 4 times per year 10/15/2019 anabaptism services? Do you belong to any clubs [...] Medicine Natasha Mullins APRN, C.N.P., M.S.N. [address] [place] [phone] (Wo rk) 10/11/2022 Ancillary Procedure Cardiovascular Disease Natasha Cramer APRN, C.N.P., M.S.N. [address] [place] [phone] (Wo rk) 10/11/2022 Appointment Cardiovascular Disease Natasha Mullins APRN, C.N.P., M.S.N. [address] [place] [phone] (Joanie rk) 10/12/2022 Office Visit Cardiovascular Disease Natasha Mullins APRN, C.N.P., M.S.N. [address] [place] [phone] (Joanie rk) documented as of this encounter Visit Diagnoses Not on filedocumented in this encounter Care Teams Adolescent Counselor Relationship Specialty Start Date End Date Elsewhere, Pcp PCP - General Family Medicine 10/25/18 documented as of this encounter
--- OUTSIDE RECORDS SUMMARY | 2022-08-27 11:23 | XMS_ITS | Encounter Summary ---
:1945 Author Organization [facility] Address [address] [place] [address] Care Team Providers Name Role Phone Elsewhere, Pcp Primary Care Provider Unavailable Encounter Details Date Type Department Care Team Description 05/27/2021 Anesthesia Event RST ROMB MAIN OR Antione Valdez, [address] [place] [address] [place] [phone] [phone] [place] [address] [place] [phone] (Wo rk) Anesthesia Record Procedure Summary Procedure Name Responsible Anesthesia Start Anesthesia Stop Time Anesthesiologist Time NECK DISSECTION, Antione Valdez M.D., 05/27/21 1225 05/14 03/04 1458 Revision neck, M.S. level IV. (Right) Events Date Time Event Comment 05/27/2021 1203 1225 An Start Machine/Equipmen t Checked Infection Precautions Foll owed Procedure/Site Verified NPO Sta tus Verified Supine Standard ASA Mon itors Applied 1231 An Induction 1236 An Intubation 1244 Turnover to Proceduralist 1256 Proc Start 1438 Proc Fin 1442 Turnover to ANE Staff 1446 Airway Removal Criteria Met 1446 Extubation/Airway Removed 1447 an stop data 1458 An End I completed my h andoff to the receiving staff during [facility] we 1. Identified the patient 2. Ident ified the responsible provider 3. Revi ewed the pertinent medical history 4. Discussed the surgical course 5. Review ed intra-op anesthesia management and i ssues during anesthesia 6. Set expectati ons for post-procedure period 7. Allowe d opportunity for questions and ac knowledgement of understanding. Name Total lidocaine 2% (mg) injection 100 mg propofol 10 mg/mL 95 mg succinylcholine 20 mg/mL injection 100 mg ePHEDrine PF 5 mg/mL syringe injection 35 mg ondansetron 4 mg/2 mL injection 4 mg vancomycin in NaCl 0.9% IVPB 1,250 mg 1,250 mg ketamine 10 mg/mL injection 75 mg dexamethasone 4 mg/mL injection 4 mg phenylephrine 80 mcg/mL in NaCl 0.9% 250 mL infusion 2 .85 mg Lactated Ringers Free Drip 700 mL Agents No agents on file. Blood No blood administrations on file. Lines, Drains, and Airways Type Details Placement Removal (RETIRED) Incision 04/17/19; 0933; Neck; 04/17/19 0933 by [id number] by Left; dermbond; 08/04/21 Elizabeth Dahl, [facility] (Removed by background R.N. roslyn, [facility] completion utility); Automated B atch Job 1418 (Removed by background completion utility) (RETIRED) Incision 01/16/21; 1028; Groin; 01/16/21 1028 by 08/04 1418 by Left; 08/04/21 (Removed [facility] Hankins, [facility] by [facility] completion nd, [facility] abhijit utility); 1418 (Removed Automate d Batch Job by background completion utility) Peripheral IV Placement Date: 05/27/21 1209 by 05/27/21 181 b y 05/27/21; Placement Roberta Staples Hol ly N, Time: 120; Catheter R.N. Size: 20 G; Orientation: Left; Location: Forearm; Site Prep: Chlorhexidine (Preferred); Technique: Anatomical landmarks (joss); Inserted by: NEVILLE; Insertion Attempts: 1; Removal Date: 05/27/21; Removal Time: 1813; Removal Reason: Per protocol ETT Placement Date: 05/27/21 1236 by 05/27/21 1446 b y 05/27/21; Placement Heath Killian, Franklin Peters T, GRADES 1 6 TUTOR, Time: 1236 (created via GRADES 1 6 TUTOR, MANAGER MILITARY, DNAP MANAGER MILITARY, D NAP procedure documentation); Mask Ventilation: Easy mask; Type: Standard ETT; Single Lumen Tube Size: 7.5 mm; Cuffed: Yes; Location: Oral; Grade View: Grade 1; Insertion Attempts: 1; Placement Verification: Bilateral breath sounds, Positive ETCO2, Symmetrical chest wall movement; Removal Date: 05/27/21; Removal Time: 1446 (RETIRED) Incision 05/27/21; 1357; Neck; 05/27/21 1357 by 1140 by Right; dermabond; [facility], [facility]/24[facility]21 (Removed R.N. nd, Scheduling Automatically via Automated [facility] h Job Background Job); 1140 (Removed Automatically via Background Job) documented in this encounter Social History Tobacco Use Types Packs/Day Years [...] or relatives? How often do you attend confucianism or More than 4 times per year 10/15/2019 buddhist services? Do you belong to any clubs or Yes 10/15/2019 organizations such as confucianism groups, unions, fraternal or athletic groups, or [...] PM CDT documented as of this encounter OR Notes Anesthesia Postprocedure Evaluation - Madeleine Swanson M.D. - 05/27/2021 4:21 PM CDT Patient: Levi Khanna Procedure Summary Date: 05/27/21 Room / Location: [address] 01 [facility] / [facility] in [place], [place] Anesthesia Start: 1225 Anesthesia Stop: 1458 Procedure: NECK DISSECTION, Revision neck, level IV. 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 Responsible Provider: Antioen Valdez M.D., M.S. Anesthesia Type: general ASA Status: 3 Anesthesia Type: general Last vitals Vitals Value Taken Time BP 127/70 05/27/21 1545 Temp 36.7 ??C 05/27/21 1455 Pulse 82 05/27/21 1620 Resp 19 05/27/21 1548 SpO2 94 % 05/27/21 1620 Vitals shown include unvalidated device data. Please reference Vitals flowsheet for most recent vital signs. Anesthesia Post Evaluation Patient Disposition: dismissal Cardiovascular status: hemodynamics (HR & BP) acceptable Respiratory status: patent airway with spontaneous effort Temperature: normothermic Oxygen requirements: room air Level of consciousness: awake Pain score: pain adequately controlled and/or at baseline Post Op nausea/vomiting: none Hydration status: euvolemic Anesthesia Procedure Notes - Heath Killian APRN, CRNA, DNAP - 05/27/2021 12:54 PM CDTAssociated Order(s): Airway Airway Date/Time: 05/27/2021 12:36 PM Performed by: Heath Killian APRN, CRNA DNAFranklin Authorized by: Antione Valdez M.D., M.S. Patient location during procedure: OR / Procedure Area PROCEDURE DETAILS: Mask difficulty assessment: easy mask Final airway type: video laryngoscope Laryngeal Manipulation: no Final best view of glottic structures - Cormack/Lehane Score: grade 1 ETT location: oral VL device: glide scope [place] scope blade size: 4 Adult tube size: 7.5 Adult ETT distance at teeth/gum: 23 Oral tube type: standard ETT Cuffed: yes Number of attempt to successful placement: 1 Airway confirmation: bilateral breath sounds, positive ETCO2 and bilateral chest rise Other previous techniques attempted: direct laryngoscopy; intubation Number of other approaches attempted: 1 Previous direct laryngoscopy: best view of glottic structures: grade 2A PRE PROCEDURE DETAILS: Pre evaluation for airway management: procedure Urgency: elective Preop assessment of probable difficulty: no difficulty anticipated Preoxygenation: bag valve mask SEDATION / ANESTHESIA Anesthesia method: anesthesia POST PROCEDURE DETAILS: Procedure outcome: successful Airway event: no complications Anesthesia Preprocedure Evaluation - Antione Valdez M.D., M.S. - 05/27/2021 11:31 AM CDT Preprocedure Anesthesia & H&P Assessment Procedure Summary Date/Time: 05/27/21 1256 Procedure: NECK DISSECTION, Revision neck, level IV. 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 Location: [place] [address] / [facility] in [place], [place] Providers: Da Carr M.D. Pertinent components of the patient's history including current problem list, medical history, surgical history, family history, social history, medications and allergies were reviewed. Present illnessand pre-op diagnosis were confirmed. The planned surgery / procedure was verified with the patient /legal guardian. 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) OBJECTIVE PHYSICAL EXAMINATION Airway (HEENT) Mallampati: II TM Distance: >3 FB Neck ROM: Full Mouth Opening: >3 cm Cardiovascular Rhythm: Regular Rate: Normal Functional Capacity: >4 METS Pulmonary Pulmonary Assessment: Clear and diminished General / Constitutional Constitutional Assessment: Normal General State of Health:: calm and healthy appearing Neurological Neurologic Assessment:??alert and alert and oriented x 3 Dental Dental Assessment: dentition intact ASSESSMENT / PLAN ANESTHESIA PLAN ASA: 3 Anesthesia Plan: general Patient seen and allergies reviewed, anesthesia plan and risks discussed directly with patient /legal guardian or through an client services assistant. The use of blood products not discussed Approval to Proceed: approved for anesthesia documented in this encounter Plan of Treatment Upcoming Encounters Date Type Specialty Care Team Description 10/11/2022 Appointment Laboratory Medicine Natasha Mullins APRN, Radha.N.Jalen, M.S.N. [address] [place] [phone] (Wo rk) 10/11/2022 Ancillary Procedure Cardiovascular Disease Natasha Cramer APRN, Radha.N.P., M.S.N. [address] [place] [phone] (Wo rk) 10/11/2022 Appointment Cardiovascular Disease Natasha Mullins APRN, C.N.PCarmine, M.S.N. [address] [place] [phone] (Wo rk) 10/12/2022 Office Visit Cardiovascular Disease Natasha Mullins APRN C.N.P., M.S.N. [address] [place] [phone] (Wo rk) documented as of this encounter Procedures Procedure Name Priority Date/Time Associated Comments Diagnosis LDA ANE ENDOTRACHEAL Routine 05/27/2021 12:36 Res ults for this AIRWAY PM CDT procedure are i n the results section. documented in this encounter Results LDA ANE ENDOTRACHEAL AIRWAY (05/27/2021 12:36 PM CDT) Narrative Heath Killian APRN, CRNA, DNAP - 05/27/2021 12:36 PM CDT Heath Killian APRN, CRNA, DNAP ? 05/27/2021 12:55 PM Airway Date/Time: 05/27/2021 12:36 PM Performed by: Heath Killian APRN, CRNA, DNAP Authorized by: Antione Valdez M.D. , M.S. Patient location during procedure: OR / Procedure Area PROCEDURE DETAILS: Mask difficulty assessment: easy mask Final airway type: video laryngoscope Laryngeal Manipulation: no ?? Final best view of glottic structures - Cormack/Lehane Score: grade 1 ETT location: oral VL device: glide scope [place] scope blade size: 4 Adult tube size: 7.5 Adult ETT distance at teeth/gum: 23 Oral tube type: standard ETT Cuffed: yes Number of attempt to successful placemen t: 1 Airway confirmation: bilateral breath so unds, positive ETCO2 and bilateral chest rise Other previous techniques attempted: dir ect laryngoscopy; intubation Number of other approaches attempted: 1 Previous direct laryngoscopy: best view of glottic structures: grade 2A PRE PROCEDURE DETAILS: Pre evaluation for airway management: pr ocedure Urgency: elective Preop assessment of probable difficulty: no difficulty anticipated Preoxygenation: bag valve mask SEDATION / ANESTHESIA Anesthesia method: anesthesia POST PROCEDURE DETAILS: ? Procedure outcome: successful ?? Airway event: no complications Antione Valdez M.D., M.S. ANESTHESIA ORDERABLES documented in this encounter Visit Diagnoses Not on filedocumented in this encounter Administered Medications Inactive Administered Medications - up to 3 most recent administrations Medication Order MAR Action Action Date Dose Rate Site dexAMETHasone injection (DECADRON) Given 05/27/2021 12:52 PM CDT 4 mg intravenous, As needed, Starting on Tue05/27/21 at 1252, Anesthesia Intra-op ePHEDrine (PF) injection Given 05/27/2021 1:44 PM CDT 5 mg intravenous, As needed, Starting on Tue05/27/21 at 1251, Anesthesia Intra-op Given 05/27/2021 1:32 PM CDT 5 mg Given 05/27/2021 1:07 PM CDT 12.5 mg ketamine injection (KETALAR) Given 05/27/2021 12:51 PM CDT 10 mg intravenous, As needed, Starting on Tue05/27/21 at 1234, Anesthesia Intra-op Given 05/27/2021 12:34 PM CDT 65 mg lactated ringers New Bag 05/27/2021 12:31 PM CDT intravenous, Continuous Infusion: Per Instructions PRN, Starting on Tue05/27/21 at 1231, Anesthesia Intra-op lidocaine (PF) (cardiac) injection Given 05/27/2021 12:33 PM CDT 100 mg intravenous, As needed, Starting on Tue05/27/21 at 1233, Anesthesia Intra-op ondansetron (PF) injection (ZOFRAN) Given 05/27/2021 1:49 PM CDT 4 mg intravenous, As needed, Starting on Tue05/27/21 at 1349, Anesthesia Intra-op phenylephrine 80 Rate/Dose Change 05/27/2021 2:30 0.3 mcg/kg/min 17.3 48 mL/hr mcg/mL in NaCl 0.9% PM CDT 250 mL infusion 0-1 mcg/kg/min ? 77.1 kg Dosing weight (0-57.825 mL/hr, rounded to 0-57.83 mL/hr), intravenous, Continuous, Starting on Tue05/27/21 at 1315, Intra-Op, 20 mg in 250 mL, Patient Type: Standard, initiate at: Other, Rate: Per Provider, Titrate at: Other, Titrate: Per Provider, Goal: Other, Goal: Per Provider Rate/Dose Change 05/27/2021 2:22 PM CDT 0.4 mcg/kg/min 23.13 mL/hr Rate/Dose Change 05/27/2021 1:28 PM CDT 0.5 mcg/kg/min 28.913 mL/hr propofoL injection (DIPRIVAN) Given 05/27/2021 1:25 PM CDT 30 mg intravenous, As needed, Starting on Tue05/27/21 at 1234, Anesthesia Intra-op Given 05/27/2021 12:34 PM CDT 65 mg succinylcholine (PF) injection (ANECTINE ) Given 05/27/2021 12:33 PM CDT 100 mg intravenous, As needed, Starting on Tue05/27/21 at 1233, Anesthesia Intra-op vancomycin in NaCl 0.9% IVPB 1,250 mg Given 05/27/2021 12:50 PM CDT 1,250 mg 1,250 mg, intravenous, at 175 mL/hr, Administer over 90 Minutes, Once, On Tue05/27/21 at 1145, For 1 dose, Pre-Op, Administer within 2 hours prior to surgical incision, Drug Monitoring Program: Pharmacist to adjust medication dosing based on indication and drug clearance factors., Indications: Prophylaxis, surgical documented in this encounter Care Teams Med Surg Nurse Relationship Specialty Start Date End Date Elsewhere, Pcp PCP - General Family Medicine 10/25/18 documented as of this encounter
--- OUTSIDE RECORDS SUMMARY | 2022-08-27 11:23 | XMS_ITS | Encounter Summary ---
:1945 Author Organization [facility] Address [address] [place] [address] Care Team Providers Name Role Phone Elsewhere, Pcp Primary Care Provider Unavailable Reason for Referral Outpatient (Routine) - Authorized Specialty Diagnoses / Procedures Referred By Contact Refer red To Contact Cardiovascular Disease Lauren Mullins [facility] VY Kaur C.N.P., M.S.N. [address] [place] [phone] Referral ID Status Reason Start Date Expiration Date Visits V isits Requested Authorized [id number] Authorized 10/16/2021 10/16/2022 1 1 utpatient (Routine) - Authorized Specialty Diagnoses / Procedures Referred By Contact Refer red To Contact Diagnoses Cardiomyopathy Ischemic Chronic Systolic (Congestive) Heart Failure (HCC) Natasha Mullins [facility] Procedures Echo Transthoracic (TTE) Justin MCCLELLAN, M.S.N. [address] [place] [phone] Referral ID Status Reason Start Date Expiration Date Visits V isits Requested Authorized [id number] Authorized 10/16/2021 10/16/2022 1 1 utpatient (Routine) - Authorized Specialty Diagnoses / Procedures Referred By Contact Refer red To Contact Diagnoses Cardiomyopathy Ischemic Chronic Systolic (Congestive) Heart Failure (HCC) [facility] [place] Procedures ECG 12 Lead Justin MCCLELLAN, M.S.N. [address] [place] [phone] Referral ID Status Reason Start Date Expiration Date Visits V isits Requested Authorized [id number] Authorized 10/16/2021 10/16/2022 1 1 utpatient (Routine) - Authorized Specialty Diagnoses / Procedures Referred By Contact Refer red To Contact Diagnoses Left Anterior Fascicular Block Chai Fagan [facility] Procedures ECG Heart Rhythm Monitor (Holter) Justin MCCLELLAN, M.S.N. [address] [place] [phone] Referral ID Status Reason Start Date Expiration Date Visits V isits Requested Authorized [id number] Authorized 10/16/2021 10/16/2022 1 1 ING TECHNICIAN Reason for Visit Outpatient (Routine) - Closed Specialty Diagnoses / Procedures Referred By Contact Refer red To Contact Cardiovascular Disease Lauren Mullins [facility] VY Kaur C.N.P., M.S.N. [address] [place] [phone] Referral ID Status Reason Start Date Expiration Date Visits Requ ested Visits Authorized [id number] Closed 10/15/2020 10/15/2021 1 1 Encounter Details Date Type Department Care Team Description 10/16/2021 Office Visit Department of Grazzini Rylan, Left Anter ior Fascicular Block (Primary Dx); Cardiovascular VY Kaur, Cardiomyopat hy Ischemic; Medicine in [place], C.N.P., M .S.N. Chronic Systolic (Congestive) Heart Fail ure (HCC); [place] [address] [facility] Atherosclerotic Heart Disease Of [place] Coronary Artery Without Angina Pectoris; [address] [place], [place] [phone] Social History Tobacco Use Types Packs/Day Years [...] or relatives? How often do you attend gnosticism or More than 4 times per year 10/15/2019 hinduism services? Do you belong to any clubs or Yes 10/15/2019 organizations such as gnosticism groups, unions, fraternal or athletic groups, or [...] Sign Reading Time Taken Comments Blood Pressure 98/73 10/16/2021 12:54 PM PARKING TECHNICIAN Pulse 87 10/16/2021 12:54 PM PARKING TECHNICIAN Temperature - - Respiratory Rate - - Oxygen Saturation - - Inhaled Oxygen Concentration - - Weight 78.8 kg (173 lb 11.6 oz) 10/16/2021 12:54 PM PARKING TECHNICIAN Height 173 cm (5' 8.11) 10/16/2021 12:54 PM PARKING TECHNICIAN Body Mass Index 26.33 10/16/2021 12:54 PM PARKING TECHNICIAN documented in this encounter Progress Notes Natasha Mullins APRN, C.N.P., M.S.N. - 10/16/2021 1:00 PM CST Heart failure Established Note Referring Provider: Natasha Mullins APRN, C.N.P., M.S.N. 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 ??Ejection fraction was 30% to 35% December of 2015 by stress echocardiogram; negative for ischemia. ??Ejection fraction increased to 50% October 2018.?? 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 I last saw the patient on October 15, 2020. Ejection fraction was stable at 52%. He was class 1 to 2and euvolemic without diuretic. He was hyponatremic and I recommended he restrict fluid. I recommended he contact me when he returns to see Endocrine next we would recheck. That did not occur. Since last visit patient had left inguinal hernia repair with mesh January 2021. Patient completed neck resection for malignant neoplasm of papillary thyroid cancer May 28, 2021. The patient presents with his . He can walk at least a half a mile without dyspnea. Denies chestdiscomfort, palpitations, dizziness, lightheadedness, syncopal episodes, falls, paroxysmal nocturnaldyspnea, orthopnea or edema. REVIEW OF SYSTEMS The following portions of the patient's history were reviewed and updated as appropriate: allergies,current medications, family history, medical history, social history and surgical history. OBJECTIVE Vitals: 10/16/21 1251 10/16/21 1254 BP: 102/71 98/73 BP Location: Left arm Left arm Patient Position: Sitting Standing Cuff Size: Regular Regular Pulse: 84 87 Weight: 78.8 kg 78.8 kg Height: 173 cm 173 cm Wt 78.8 kg Ht 173 cm Body mass index is 26.33 kg/m??. Body surface area is 1.95 meters squared. ALLERGIES Allergies Allergen Reactions ??? Bactrim [Sulfamethoxazole-Trimethoprim] GI intolerance ??? Clindamycin Other (see comments) Unknown. ??? Iodinated Contrast Media Itching Possible adverse reaction to iodinated contrast given at eye center in 2006. Visi [address] scan on 12/12/13. No reaction noted. ??? Mold Other (see comments) Unknown. ??? Penicillins Other (see comments) Unknown. ??? Pneumococcal Vaccine Other (see comments) Headache and body ache ??? Pollen Extracts Other (see comments) ??? Shellfish Containing Products Nausea And Vomiting HOME MEDICATIONS Current Medications: ??? acetaminophen (TYLENOL) 500 mg capsule, Take 2 capsules (1,000 mg total) by mouth every 6 (six) hours as needed for pain. ??? albuterol (PROVENTIL HFA,VENTOLIN HFA) 90 mcg/actuation inhaler, Inhale 1-2 puffs as needed for wheezing or shortness of breath. ??? aspirin [address] tablet, Take 81 mg by mouth daily. Take for life. ??? calcium carbonate (TUMS) 500 mg (200 mg calcium) chewable tablet, Chew 1 tablet 2 (two) times a day as needed for indigestion or heartburn. ??? carvediloL (COREG) 25 mg tablet, Take 1 tablet (25 mg total) by mouth 2 (two) times a day. ??? cetirizine (ZyrTEC) 10 mg tablet, Take 10 mg by mouth daily. ??? clopidogreL (PLAVIX) 75 mg tablet, Take 1 tablet (75 mg total) by mouth daily. ??? fluticasone-salmeterol (ADVAIR DISKUS) 250-50 mcg/dose diskus inhaler, Inhale 1 puff daily as needed. ??? levothyroxine (SYNTHROID, LEVOTHROID) 200 mcg tablet, TAKE ONE TABLET BY MOUTH EVERY DAY ??? lisinopriL (PRINIVIL,ZESTRIL) 40 mg tablet, Take 1 tablet (40 mg total) by mouth daily. ??? montelukast (SINGULAIR) 10 mg tablet, Take 1 tablet by mouth at bedtime. ??? multivitamin (multivitamin) tablet, Take 1 tablet by mouth daily. ??? nitroglycerin (NITROSTAT) 0.4 mg SL tablet, Place 1 tablet (0.4 mg total) under the tongue as needed for chest pain. May repeat every 5 x 2. If no relief with 3rd tab call 911. ??? rosuvastatin (Crestor) 40 mg tablet, Take 1 tablet (40 mg total) by mouth daily. ??? tamsulosin (FLOMAX) 0.4 mg 24 hr capsule, Take 0.4 mg by mouth daily. PHYSICAL EXAMINATION General: Pleasant gentleman in no apparent acute distress Vessels: Neck veins are 5 centimeters of water at a 30 degree angle without hepatic jugular reflux. No carotid bruits. Lungs: Clear without rales, rhonchi, or wheeze. Heart: Distant heart tones. Normal S1 and S2. No S3, S4, thrill or heave appreciated. Soft 2/6 systolic murmur noted at the lower left sternal border. Abdomen: Soft, nontender, without palpable hepatomegaly. Extremities: No lower extremity edema. Pedal pulses somewhat diminished. ECHOCARDIOGRAM 1. Normal left ventricular chamber size, regional wall motion abnormalities were present (see wall motion graphics), calculated 3-D volumetric ejection fraction 54 %. 2. Mildly enlarged right ventricular chamber size, normal systolic function, estimated right ventricular systolic pressure 30 mmHg (systolic blood pressure 123 mmHg). 3. Mild aortic valve stenosis, valve area by Doppler 1.67 cm^2, systolic mean Doppler gradient 16 mmHg. 4. Normal left ventricular geometry, grade 1/3 diastolic dysfunction, consistent with low to normal filling pressure at rest. 5. No pericardial effusion. 6. Compared to the report of 10/15/2020 no significant change has occurred. Side by side comparison of images performed. ASSESSMENT / PLAN #1 Cardiomyopathy Ischemic I reviewed the patient's echocardiogram with him. Ejection fraction is within normal limits. I recommended continue with carvedilol and lisinopril indefinitely. #2 Chronic Systolic (Congestive) Heart Failure (HCC) Euvolemic [place] heart [employer] functional class one. Does not require diuretic. #3 Left Anterior Fascicular Block EKG has changed. He is in sinus with PVCs right bundle-branch block and left anterior fascicular block. Bifascicular block is new. Recommended 24 hour Holter monitor. 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 He should continue to Plavix and aspirin given the extensive coronary artery disease. #5 Hyperlipidemia Lipids stable with Total cholesterol 196, HDL 75, LDL 109, triglycerides 59. Recommended continue Crestor 40 milligrams per day. Follow-up one year. Encouraged to contact the office if he has any signs or symptoms of heart failure or ischemia in the interim. ADDENDUM: Holter monitor revealed basic rhythm was sinus varying 60-119 beats per minute with average heart rate 83 beats per minute. PVC burden was 6% with single, paired bigeminy and trigeminy. Less than 1% burden of PSVT. This requires no changes to his medical regime. Natasha Fagan APRN, C.NRenetta, M.S.N. 10/16/21 ING TECHNICIAN documented in this encounter Plan of Treatment Upcoming Encounters Date Type Specialty Care Team Description 10/11/2022 Appointment Laboratory Medicine Natasha Mullins APRN, Radha.N.Jalen, M.S.N. [address] [place] [phone] (Joanie rk) 10/11/2022 Ancillary Procedure Cardiovascular Disease Natasha Cramer APRN, C.N.Jalen, M.S.N. [address] [place] [phone] (Joanie rk) 10/11/2022 Appointment Cardiovascular Disease Natasha Mullins APRN, Rdaha.N.Jalen, M.S.N. [address] [place] [phone] (Joanie rk) 10/12/2022 Office Visit Cardiovascular Disease Natasha Mullins APRN, C.NLibrado., M.S.N. [address] [place] [phone] (Joanie rk) Scheduled Orders Name Type Priority Associated Diagnoses Order S chedule AST (Aspartate Lab Routine Cardiomyopathy Expected: Aminotransferase) Ischemic 10/16/2022 Chronic Systolic (Approximat e), (Congestive) Heart Expires: Failure (HCC) 01/14/2023 Basic Metabolic Panel Lab Routine Cardiomyopathy Expe cted: Ischemic 10/16/2022 Chronic Systolic (Approximat e), (Congestive) Heart Expires: Failure (HCC) 01/14/2023 CBC without Lab Routine Cardiomyopathy Expected: Differential Ischemic 10/16/2022 Chronic Systolic (Approximat e), (Congestive) Heart Expires: Failure ([facility]) 01/14/2023 ECG 12 Lead ECG Routine Cardiomyopathy Expected: Ischemic 10/16/2022 Chronic Systolic (Approximat e), (Congestive) Heart Expires: Failure ([facility]) 01/14/2023 Echo Transthoracic Echocardiography Routine Cardiomyopathy Exp ected: (TTE) Ischemic 10/16/2022 Chronic Systolic (Approximat e), (Congestive) Heart Expires: Failure ([facility]) 01/14/2023 Scheduled Referrals Name Type Priority Associated Order Schedule Diagnoses Cardiovascular Disease Outpatient Referral Routine Expected: office visit (clinic) 2021 (Approximate), Expires: 01/14/2023 documented as of this encounter Results HOLTER MONITOR - IN CLINIC CIGAR WRAPPER (10/21/2021 2:44 PM PARKING TECHNICIAN) [facility] Method Time Signature Min Heart Rate 60 bpm INFOBIONIC MOME Max Heart Rate 119 bpm INFOBIONIC MOME Mean Heart 83 bpm INFOBIONIC Rate MOME VE Total Beats 6994 count INFOBIONIC MOME VE Percent 6 percent INFOBIONIC Beats MOME SVE Total 244 count INFOBIONIC Beats MOME SVE Percent less than percent INFOBIONIC Beats 1 MOME AF Count 0 count INFOBIONIC MOME AF Duration 0 duration INFOBIONIC MOME AF [place] 0 percent INFOBIONIC MOME Symptom Count 0 count INFOBIONIC MOME Specimen (Source) Anatomical Collection Method Collection Time Re ceived Time Location / / Volume Laterality 10/20/2021 2:04 PM PARKING TECHNICIAN Narrative INFOBIONIC MOME - 10/22/2021 2:50 PM PARKING TECHNICIAN 1. The basic rhythm was sinus. The total analyzed time was 23h 40m. The heart rate varied from 60 to 119 bpm. The average HR was 83 bpm. 2. Premature ventricular complexes were noted singly, paired and in patterns of bigeminy and trigeminy. There were 6994 PVCs recorded with a PVC burden of 6%. 3. Premature supraventricular complexes were noted singly, paired and in one 8 beat atrial run, rate of 118 bpm. There were 244 PACs recorded with a PAC burden of less than 1%. 4.No symptomatic events were noted. Recreation Manager: Heather Wade/ Te Domingeuz Procedure Note Hi Khan M.D. - 10/22/2021Formatt ing of this note might be different from the original. 1. The basic rhythm was sinus. The total analyzed time was 23h 40m. The heart rate varied from 60 to 119 bpm. The average HR was 83 bpm. 2. Premature ventricular complexes were noted singly, paired and in patterns of bigeminy and trigeminy. There were 6994 PVCs recorded with a PVC burden of 6%. 3. Premature supraventricular complexes were noted singly, paired and in one 8 beat atrial run, rate of 118 bpm. There were 244 PACs recorded with a PAC burden of less than 1%. 4.No symptomatic events were noted. Recreation Manager: Heather Wade/ Te Dominguez Natasha Fagan APRN C.N.P., M.S.N. CV CARDIAC SERVICES PROCEDURES Performing Organization Address City/State/ZIP Code Phon e Number INFOBIONIC MOME INFOBIONIC MOME NA documented in this encounter Visit Diagnoses Diagnosis Left Anterior Fascicular Block - Primary Cardiomyopathy Ischemic Chronic Systolic (Congestive) Heart Fail ure (HCC) Atherosclerotic [facility] [place] Coronary Artery Without Angina Pectoris Hyperlipidemia Left Anterior Fascicular Block documented in this encounter Care Teams Social Media Analyst Relationship Specialty Start Date End Date Elsewhere, Pcp PCP - General Family Medicine 10/25/18 documented as of this encounter
--- OUTSIDE RECORDS SUMMARY | 2022-08-27 11:23 | XMS_ITS | Encounter Summary ---
:1945 Author Organization [facility] Address [address] [place] [phone] Care Team Providers Name Role Phone Elsewhere, Pcp Primary Care Provider Unavailable Encounter Details Date Type Department Care Team Description 10/16/2021 Hospital Encounter Department of Justus Mullins Systolic Laboratory Medicine VY Kaur, ([place]) Heart and Pathology, C.N.P., M.S.N. Failure ([facility]) [facility], in [address] [facility] [phone] [place] [address] [place], [place] (Work) [phone] Social History Tobacco Use Types Packs/Day Years [...] or relatives? How often do you attend bahai or More than 4 times per year 10/15/2019 caodaism services? Do you belong to any clubs or Yes 10/15/2019 organizations such as bahai groups, unions, fraternal or athletic groups, or [...] 0 daily. Take for life. calcium carbonate (TUMS) Chew 1 tablet 2 (two) 0 500 mg (200 mg calcium) times a day as needed chewable tablet for indigestion or heartburn. cetirizine (ZyrTEC) 10 Take 10 mg by mouth 0 08/14 mg tablet daily. fluticasone Inhale 1 puff daily 0 08/25/2015 propion-salmeteroL as needed. 250-50 mcg/dose diskus inhaler montelukast (SINGULAIR) Take 1 tablet by 0 2014 10 mg tablet mouth at bedtime. multivitamin tablet Take 1 tablet by 0 mouth daily. tamsulosin (FLOMAX) 0.4 Take 0.4 mg by mouth 0 mg 24 hr capsule daily. levothyroxine TAKE ONE TABLET BY 90 tablet 3 08/17/202101/2022 (SYNTHROID, LEVOTHROID) MOUTH EVERY DAY 200 mcg tablet documented as of this encounter Plan of Treatment Upcoming Encounters Date Type Specialty Care Team Description 10/11/2022 Appointment Laboratory Medicine Natasha Mullins APRN, Radha.NLibrado., M.S.N. [address] [place] [phone] (Joanie velázquez) 10/11/2022 Ancillary Procedure Cardiovascular Disease Natasha Cramer APRN, Radha.N.P., M.S.N. [address] [place] [phone] (Joanie velázquez) 10/11/2022 Appointment Cardiovascular Disease Natasha Mullins APRN, C.N.P., M.S.N. [address] [place] [phone] (Wo rk) 10/12/2022 Office Visit Cardiovascular Disease Natasha Mullins APRN, C.N.P., M.S.N. [address] [place] [phone] (Wo rk) documented as of this encounter Procedures Procedure Name Priority Date/Time Associated Comments Diagnosis LIPID PANEL, S Routine 10/16/2021 8:02 Chronic Systolic Result s for this AM COMMUNICATIONS EDITOR (Congestive) Heart procedure are in Failure (HCC) the results section. CBC WITHOUT Routine 10/16/2021 8:02 Chronic Systolic Results for this DIFFERENTIAL, B AM COMMUNICATIONS EDITOR (Congestive) Heart proced ure are in Failure (HCC) the results section. ASPARTATE Routine 10/16/2021 8:02 Chronic Systolic Results for this AMINOTRANSFERASE (AST), AM COMMUNICATIONS EDITOR (Congestive) Hear t procedure are in S/P Failure (HCC) the results section. BASIC METABOLIC PANEL, Routine 10/16/2021 8:02 Chronic Systoli c Results for this S/P AM COMMUNICATIONS EDITOR (Congestive) Heart procedure are in Failure (HCC) the results section. documented in this encounter Results Lipid Panel (10/16/2021 8:02 AM COMMUNICATIONS EDITOR) athologist Signature Cholesterol, 196 mg/dL 10/16/2021 DTL Total 9:09 AM COMMUNICATIONS EDITOR Comment: ----REFERENCE VALUE---- Desirable: < 200 Borderline high: 200 - 239 High: > or = 240 Triglycerides 59 mg/dL 10/16/2021 9:09 AM COMMUNICATIONS EDITOR DTL Comment: ----REFERENCE VALUE---- Normal: <150 Borderline high: 150-199 High: 200-499 Very high: > or =500 Cholesterol, HDL, S 75 >=40 mg/dL 10/16/2021 9:09 AM COMMUNICATIONS EDITOR DTL Calculated LDL 109 mg/dL 10/16/2021 9:09 AM COMMUNICATIONS EDITOR DT L Comment: ----REFERENCE VALUE---- Desirable: <100 mg/dL Above Desirable: 100-129 mg/dL Borderline High: 130-159 mg/dL High: 160-189 mg/dL Very High: >=190 mg/dL Cholesterol, Non-HDL, Calculated 121 mg/dL 021 9:09 AM COMMUNICATIONS EDITOR DTL Comment: ----REFERENCE VALUE---- Desirable: <130 Above Desirable: 130-159 Borderline high: 160-189 High: 190-219 Very high: > or =220 Specimen Anatomical Collection Method Collection Time Receive d Time (Source) Location / / Volume Laterality Blood (Blood, 10/16/2021 8:02 AM 10/16/20 8:49 Venous) COMMUNICATIONS EDITOR AM COMMUNICATIONS EDITOR Radha Eastman APRN.NRenetta, M.S.N. LAB BLOOD ADD-ON Performing Organization Address City/[facility] Code Phon e Number [facility] - [address] [place] [phone] [facility] [place] [address] Laboratories-[facility] 200 [facility] CBC without Differential (10/16/2021 8:02 AM COMMUNICATIONS EDITOR) P athologist Signature Hemoglobin 14.1 13.2 - 10/16/2021 DTL 16.6 g/dL 8:47 AM COMMUNICATIONS EDITOR Hematocrit 42.2 38.3 - 10/16/2021 DTL 48.6 % 8:47 AM COMMUNICATIONS EDITOR Erythrocytes 4.58 4.35 - 10/16/2021 DTL 5.65 8:47 AM COMMUNICATIONS EDITOR x10(12)/L MCV 92.1 78.2 - 10/16/2021 DTL 97.9 fL 8:47 AM COMMUNICATIONS EDITOR RBC Distrib Width 13.0 11.8 - 10/16/2021 DTL 14.5 % 8:47 AM COMMUNICATIONS EDITOR Platelet Count 232 135 - 317 10/16/2021 DTL x10(9)/L 8:47 AM COMMUNICATIONS EDITOR Leukocytes 5.4 3.4 - 9.6 10/16/2021 DTL x10(9)/L 8:47 AM COMMUNICATIONS EDITOR Specimen Anatomical Collection Method Collection Time Receive d Time (Source) Location / / Volume Laterality Blood (Blood, 10/16/2021 8:02 AM 10/16/20 8:34 Venous) COMMUNICATIONS EDITOR AM COMMUNICATIONS EDITOR Radha Eastman APRN.N.P., M.S.N. LAB BLOOD ADD-ON Performing Organization Address City/State/ZIP Code Phon e Number [facility] - 200 [place], [place] [phone] [facility] [place] [address] Laboratories-[address] AST (Aspartate Aminotransferase) (10/16/2021 8:02 AM COMMUNICATIONS EDITOR) Patholo gist Method Time Signature Aspartate 23 8 - 48 10/16/2021 DTL Aminotransferase U/L 9:09 AM COMMUNICATIONS EDITOR (AST), S Specimen Anatomical Collection Method Collection Time Receive d Time (Source) Location / / Volume Laterality Blood (Blood, 10/16/2021 8:02 AM 10/16/20 8:49 Venous) COMMUNICATIONS EDITOR AM COMMUNICATIONS EDITOR Radha Eastman APRN.N.P., M.S.N. LAB BLOOD ADD-ON Performing Organization Address City/[facility] Phon e Number [address] [phone] [place] [address] Laboratories-[address] (ABNORMAL) Basic Metabolic Panel (10/16/2021 8:02 AM COMMUNICATIONS EDITOR) P athologist Signature Potassium, S 4.4 3.6 - 5.2 10/16/2021 DTL mmol/L 9:09 AM COMMUNICATIONS EDITOR Sodium, S 131 (L) 135 - 145 10/16/2021 DTL mmol/L 9:09 AM COMMUNICATIONS EDITOR Chloride, S 95 (L) 98 - 107 10/16/2021 DTL mmol/L 9:09 AM COMMUNICATIONS EDITOR Bicarbonate, S 25 22 - 29 10/16/2021 DTL mmol/L 9:09 AM COMMUNICATIONS EDITOR Anion Gap 11 7 - 15 10/16/2021 DTL 9:09 AM COMMUNICATIONS EDITOR BUN (Blood Urea 18 8 - 24 10/16/2021 DTL Nitrogen), S mg/dL 9:09 AM COMMUNICATIONS EDITOR Creatinine 0.83 0.74 - 10/16/2021 DTL 1.35 mg/dL 9:09 AM COMMUNICATIONS EDITOR eGFR-Non 84 >=60 10/16/2021 DTL Black/ mL/min/BSA 9:09 AM COMMUNICATIONS EDITOR [place] Comment: ----ADDITIONAL INFORMATION---- Estimated GFR calculated using the 2009 CKD_EPI creatinine equation. eGFR-Black/ >90 >=60 mL/min/BSA 2020 9:09 AM COMMUNICATIONS EDITOR DTL Comment: ----ADDITIONAL INFORMATION---- Estimated GFR calculated using the 2009 CKD_EPI creatinine equation. Calcium, Total, S 8.9 8.8 - 10.2 mg/dL 10/16/2021 9:09 AM COMMUNICATIONS EDITOR DTL Glucose, S 102 70 - 140 mg/dL 10/16/2021 9:09 AM COMMUNICATIONS EDITOR D TL Specimen Anatomical Collection Method Collection Time Receive d Time (Source) Location / / Volume Laterality Blood (Blood, 10/16/2021 8:02 AM 10/16/20 8:49 Venous) COMMUNICATIONS EDITOR AM COMMUNICATIONS EDITOR Natasha Fagan APRN C.N.P., M.S.N. LAB BLOOD ADD-ON Performing Organization Address City/State/ZIP Code Phon e Number [facility] - [address] [place], [place] [phone] [facility] [place] [address] Laboratories-[facility] [address] documented in this encounter Visit Diagnoses Diagnosis Chronic Systolic (Congestive) Heart Fail ure (HCC) documented in this encounter Care Teams Excellence Manager Relationship Specialty Start Date End Date Elsewhere, Pcp PCP - General Family Medicine 10/25/18 documented as of this encounter
--- OUTSIDE RECORDS SUMMARY | 2022-08-27 11:23 | XMS_ITS | Encounter Summary ---
:[address] [facility] Address [address] [place] [id number] Care Team Providers Name Role Phone Elsewhere, Pcp Primary Care Provider Unavailable Encounter Details Date Type Department Care Team Description 12/17/2021 Hospital Encounter Department of Loni Wu Neoplasm Of Laboratory Medicine Lupillo Love Thyroid (HCC) and Pathology, [address] [place] [address] in [place], [place] [address] [place] [address] [place], [place] (Work) [phone] Social History Tobacco Use [...] or relatives? How often do you attend quaker or More than 4 times per year 10/15/2019 jainism services? Do you belong to any clubs or Yes 10/15/2019 organizations such as quaker groups, unions, fraternal or athletic groups, or [...] 10/11/2022 Appointment Laboratory Medicine Natasha Mullins APRN, C.N.PCarmine, M.S.N. [address] [place] [phone] (Joanie rk) 10/11/2022 Ancillary Procedure Cardiovascular Disease Natasha Cramer APRN, Radha.N.Jalen, M.S.N. [address] [place] [phone] (Joanie rk) 10/11/2022 Appointment Cardiovascular Disease Natasha Mullins APRN, Radha.N.P., M.S.N. [address] [place] [phone] (Joanie rk) 10/12/2022 Office Visit Cardiovascular Disease Natasha Mullins APRN, C.N.Jalen, M.S.N. [address] [place] [phone] (Joanie rk) documented as of this encounter Procedures Procedure Name Priority Date/Time Associated Diagnosis Comme nts THYROGLOBULIN, TM, Routine 12/17/2021 10:47 AM Malignant Neopl asm Results for this S LEARNING AND DEVELOPMENT COORDINATOR Of Thyroid (HCC) procedure a re in the results section. THYROID-STIMULATING Routine 12/17/2021 10:47 AM Malignant Neop lasm Results for this HORMONE-SENSITIVE LEARNING AND DEVELOPMENT COORDINATOR Of Thyroid (HCC) proced ure are in (S-TSH) the results section. T4 (THYROXINE), Routine 12/17/2021 10:47 AM Malignant Neoplasm Results for this FREE, S LEARNING AND DEVELOPMENT COORDINATOR Of Thyroid (HCC) procedure a re in the results section. documented in this encounter Results (ABNORMAL) S-TSH (Thyroid-Stimulating Hormone - Sensitive) (12/17/2021 10:47 AM LEARNING AND DEVELOPMENT COORDINATOR) P athologist Signature TSH, Sensitive 0.04 (L) 0.3 - 4.2 12/17/2021 DTL mIU/L 12:11 PM LEARNING AND DEVELOPMENT COORDINATOR Specimen Anatomical Collection Method Collection Time Receive d Time (Source) Location / / Volume Laterality Blood (Blood, 12/17/2021 10:47 12/17/2021 Venous) AM LEARNING AND DEVELOPMENT COORDINATOR 11:43 AM LEARNING AND DEVELOPMENT COORDINATOR Loni Wu M.D. LAB BLOOD ADD-ON Performing Organization Address City/State/[facility] Code Phon e Number [facility] - [address] [address] Laboratories-[facility] [address] [facility] (ABNORMAL) T4 (Thyroxine), Free (12/17/2021 10:47 AM LEARNING AND DEVELOPMENT COORDINATOR) P athologist Signature T4 1.8 (H) 0.9 - 1.7 12/17/2021 DTL (Thyroxine), ng/dL 12:11 PM LEARNING AND DEVELOPMENT COORDINATOR Free, S Specimen Anatomical Collection Method Collection Time Receive d Time (Source) Location / / Volume Laterality Blood (Blood, 12/17/2021 10:47 12/17/2021 Venous) AM LEARNING AND DEVELOPMENT COORDINATOR 11:43 AM LEARNING AND DEVELOPMENT COORDINATOR Loni Wu M.D. LAB BLOOD ADD-ON Performing Organization Address City/[facility] Phon e Number [facility] - [address] [address] Laboratories-[address] (ABNORMAL) Thyroglobulin, Tumor Marker (12/17/2021 10:47 AM LEARNING AND DEVELOPMENT COORDINATOR) Patholo gist Method Time Signature Thyroglobulin 6.0 (H) <1.8 12/17/2021 SDS Antibody, S IU/mL 4:14 PM LEARNING AND DEVELOPMENT COORDINATOR Thyroglobulin, <0.1 ng/mL 12/17/2021 [facility] Tumor Marker, S 4:10 PM LEARNING AND DEVELOPMENT COORDINATOR Comment: ----REFERENCE VALUE---- Athyrotic <0.1 Intact Thyroid <=33 Thyroglobulin Interpretation SEE COMMENT 4:14 PM LEARNING AND DEVELOPMENT COORDINATOR [facility] Comment: Quantitation of thyroglobulin may be unr eliable due to the presence of anti-thyroglobulin antibodie s. Thyroglobulin (Tg) levels must be interp reted in the context of TSH levels, serial Tg measurements an d radioiodine ablation status. Tg levels <0.1 ng/mL in athyrotic individuals on suppressive therapy indic ate a minimal risk (<1-2%) of clinically detectable recurre nt papillary/follicular thyroid cancer. ----ADDITIONAL INFORMATION---- PLEASE NOTE: A thyroglobulin antibody (T Velma) reference cutoff of <4.0 IU/mL may be more suitabl e for the evaluation of autoimmune thyroiditis. Thyroglobulin flagging is based on athyr otic reference values. The thyroglobulin and thyroglobulin anti body testing methods are immunoenzymatic assays manufactured by [employer] and performed on the SOLO DXI 800 . Values obtained from different assay met hods or kits may be different and cannot be used inte rchangeably. The results cannot be interpreted as abs olute evidence for the presence or absence of malignant disease. Specimen Anatomical Collection Method Collection Time Receive d Time (Source) Location / / Volume Laterality Blood (Blood, 12/17/2021 10:47 12/17/2021 3:00 Venous) AM LEARNING AND DEVELOPMENT COORDINATOR PM LEARNING AND DEVELOPMENT COORDINATOR Loni Wu M.D. LAB BLOOD ADD-ON Performing Organization Address City/State/ZIP Code Phon e Number [facility] [address] [place] [address] SUPPORT [facility] [place] [address] Laboratory Medicine and Pathology [address] [place] documented in this encounter Visit Diagnoses Diagnosis Malignant Neoplasm Of Thyroid (HCC) documented in this encounter Care Teams Apprentice Cook Relationship Specialty Start Date End Date Elsewhere, Pcp PCP - General Family Medicine 10/25/18 documented as of this encounter
--- OUTSIDE RECORDS SUMMARY | 2022-08-27 11:23 | XMS_ITS | Encounter Summary ---
:1945 Author Organization [facility] Address [address] [place] [address] Care Team Providers Name Role Phone Elsewhere, Pcp Primary Care Provider Unavailable Encounter Details Date Type Department Care Team Description 05/27/2021 Hospital Encounter [facility]ST [facility] OR Lilly, Malignant Neoplasm Of [address] [facility] Da Carballo M.D. Thyroid Papillary [place], [place] (HCC) (Primary Dx) [id number] Social History Tobacco Use Types Packs/Day Years [...] Sign Reading Time Taken Comments Blood Pressure 111/75 05/27/2021 6:05 PM CDT Pulse 87 05/27/2021 6:05 PM CDT Temperature 36.7 ??C (98.1 ??F) 05/27/2021 2:55 PM CDT Respiratory Rate 19 05/27/2021 3:45 PM CDT Oxygen Saturation 94% 05/27/2021 6:05 PM CDT Inhaled Oxygen Concentration - - Weight 77.1 kg (169 lb 15.6 oz) 05/27/2021 11:03 AM CDT Height 172.7 cm (5' 8) 05/27/2021 11:03 AM CDT Body Mass Index 25.84 05/27/2021 11:03 AM CDT documented in this encounter Discharge Summaries Alisson Garrett M.D. - 05/27/2021 6:15 PM CDT DISCHARGE SUMMARY BRIEF OVERVIEW Hospital: [facility] Discharge Provider: Da Carr M.D. Primary Care Providers: Elsewhere, Pcp (General) No address on file Primary Care Provider Phone Number: None Primary Care Provider Fax Number: None Admission Date: 05/27/2021 Discharge Date: 05/27/2021 PRINCIPAL DIAGNOSIS Malignant Neoplasm Of Thyroid (HCC) SECONDARY DIAGNOSES Principal Problem: Malignant Neoplasm Of Thyroid (HCC) Active Problems: Malignant Neoplasm Of Thyroid Papillary (HCC) Resolved Problems: * No resolved hospital problems. * Surgery Information This Encounter Past Procedures (05/28/2020 to Today) Date Procedures Providers Location 05/27/2021 NECK DISSECTION, Revision neck, level IV. Da Carr M.D.Lawlor, Skye K, M.D. RST ROMB OR DISCHARGE DISPOSITION Home or Self Care [1] ACTIVE ISSUES REQUIRING FOLLOW UP Follow-up in [address] Carr. OUTPATIENT FOLLOW UP For appointment details refer to your Patient Appointment Guide. TEST RESULTS PENDING AT DISCHARGE Pending Labs Order Current Status Surgical Pathology, Frozen Lab In process DETAILS OF HOSPITAL STAY REASON FOR ADMISSION Malignant Neoplasm Of Thyroid Papillary (HCC) HOSPITAL COURSE On 05/28/21 the patient was taken to the operating room and underwent the following procedure: Procedure(s): NECK DISSECTION, Revision neck, level IV. (Right) Following an uneventful operative course. The decision was made to observe the patient in the PACU for a period of time prior to dismissal. Early mobilization after surgery was tolerated well. The postoperative course was uncomplicated. Postoperatively there were no signs or symptoms of hematoma or respiratory distress. He was tolerating ambulation, PO intake. His pain and vitals were controlled and stable. He was then discharged from the PACU in a stable condition CONSULTS ORDERED DURING THIS ADMISSION None CONDITION AT DISCHARGE good Discharge instructions were provided to the patient and caregiver(s). documented in this encounter Discharge Instructions AttachmentsThe following attachments cannot be sent through Care Everywhere. About Your IV Sedation (Belarusian)documented in this encounter Medications at Time of Discharge Medication Sig Dispensed Refills Start Date End Date calcium carbonate Chew 1 tablet 2 (two) 0 (TUMS) 500 mg (200 mg times a day as needed calcium) chewable for indigestion or tablet heartburn. acetaminophen (TYLENOL) Take 2 capsules 0 021 500 mg capsule (1,000 mg total) by mouth every 6 (six) hours as needed for pain. albuterol (PROVENTIL Inhale 1-2 puffs as 0 2017 HFA,VENTOLIN HFA) 90 needed for wheezing mcg/actuation inhaler or shortness of breath. aspirin [address] tablet Take 81 mg by mouth 0 daily. Take for life. cetirizine (ZyrTEC) 10 Take 10 mg by [...] mouth 0 mg 24 hr capsule daily. carvediloL (COREG) 25 Take 1 tablet (25 mg 180 tablet 3 12/201910/16/2021 mg tablet total) by mouth 2 (two) times a day. acetaminophen (Tylenol Take 500 mg by mouth 0 10/16/2021 Extra Strength) 500 mg every 6 (six) hours tablet as needed for pain. clopidogreL (PLAVIX) 75 Take 1 tablet (75 mg 90 tablet 3 10/16/2021 mg tablet total) by mouth daily. ibuprofen Take 3 tablets (600 0 01/16/202110/16 (ADVIL,MOTRIN) 200 mg mg total) by mouth tablet every 6 (six) hours as needed for pain (Purchase over the counter. Alternate with acetaminophen.). levothyroxine Take 1 tablet (200 90 tablet 3 06/03/202002/2021 (SYNTHROID, LEVOTHROID) mcg total) by mouth 200 mcg tablet daily. lisinopriL Take 1 tablet (40 mg 90 tablet 3 10/15/2020 12/0 01/2021 (PRINIVIL,ZESTRIL) 40 total) by mouth mg tablet daily. nitroglycerin Place 1 tablet (0.4 25 tablet 3 10/15/2020 (NITROSTAT) 0.4 mg SL mg total) under the tablet tongue as needed for chest pain. May repeat every 5 x 2. If no relief with 3rd tab call 911. oxyCODONE (ROXICODONE) Take 1 tablet (5 mg 10 tablet 0 05/1410/16/2021 5 mg immediate release total) by mouth every tabletIndications: 4 (four) hours as Acute Pain needed for pain Indication: acute pain. rosuvastatin (Crestor) Take 1 tablet (40 mg 30 tablet 11 12/201910/16/2021 40 mg tablet total) by mouth daily. sennosides (senna) 8.6 Take 1 tablet (8.6 mg 0 10/16/2021 mg tablet total) by mouth daily. Use while taking oxycodone to prevent constipation documented as of this encounter OR Notes Op Dirk - Da Carr M.D. - 05/27/2021 2:13 PM CDT PRE-OPERATIVE DIAGNOSIS Metastatic papillary thyroid cancer. History of chronic lymphocytic leukemia. POST-OPERATIVE DIAGNOSIS Metastatic papillary thyroid cancer. History of chronic lymphocytic leukemia. A administrative library assistant actively participated and was necessary for one or more of the following: opening,exposure and visualization during the case, maintaining hemostasis, wound closure resulting in its safe and expeditious completion. FINDINGS See below. COMPLICATIONS None apparent. DESCRIPTION OF PROCEDURE Under satisfactory general endotracheal anesthesia, the patient's necks and upper chest were preppedand draped in a standard sterile fashion. The patient's prior collar incision was infiltrated with 1% lidocaine and 1:100,000 epinephrine, and it was extended further to the right to near the lateral border of the sternocleidomastoid muscle. The incision was carried down through the platysma, and skinflaps were elevated in the subplatysmal plane, exposing the strap musculature on the right and the anterior and lateral border of the sternocleidomastoid muscle. The medial border of the sternocleidomastoid muscle was retracted laterally, and by mobilizing the omohyoid muscle, the jugular vein was identified. Lymph nodes and fat were elevated out of area IV, preserving the deep cervical fascia with identification and preservation of the phrenic nerve. There was a bluish discolored and large lymph node in the area. The dissection was carried from the upper border of the cricoid down to the clavicle.The wound was irrigated. Hemostasis was ensured, and the wound was then closed in layers with absorbable sutures in the subcutaneous tissues, and glue was used to approximate the skin. The patient was extubated and transferred to recovery in stable condition after frozen section revealed 2/18 nodes positive. TPR: 3, Right select neck dissection area IV Da Carr M.D. CT CT Job ID: [id number] documented in this encounter Miscellaneous Notes Hospital Course - Alisson Garrett M.D. - 05/28/2021 6:39 AM CDT On 05/28/21 the patient was taken to the operating room and underwent the following procedure: Procedure(s): NECK DISSECTION, Revision neck, level IV. (Right) Following an uneventful operative course. The decision was made to observe the patient in the PACU for a period of time prior to dismissal. Early mobilization after surgery was tolerated well. The postoperative course was uncomplicated. Postoperatively there were no signs or symptoms of hematoma or respiratory distress. He was tolerating ambulation, PO intake. His pain and vitals were controlled and stable. He was then discharged from the PACU in a stable condition documented in this encounter Plan of Treatment Upcoming Encounters Date Type Specialty Care Team Description 10/11/2022 Appointment Laboratory Medicine Natasha Mullins APRN, Radha.N.PCarmine, M.S.N. [address] [place] [phone] (Wo rk) 10/11/2022 Ancillary Procedure Cardiovascular Disease Natasha Cramer APRN, Radha.N.P., M.S.N. [address] [place] [phone] (Wo rk) 10/11/2022 Appointment Cardiovascular Disease Natasha Mullins APRN, Radha.N.P., M.S.N. [address] [place] [phone] (Wo rk) 10/12/2022 Office Visit Cardiovascular Disease Natasha Mullins APRN, C.N.P., M.S.N. [address] [place] [phone] (Wo rk) documented as of this encounter Procedures Procedure Name Priority Date/Time Associated Comments Diagnosis ADULT OXYGEN THERAPY Routine 05/27/2021 2:57 PM CDT SURGICAL PATHOLOGY, Routine 05/27/2021 1:34 PM Malignant Neopl asm Results for this FROZEN LAB CDT Of Thyroid procedure are i n Papillary (HCC) the results section. NECK DISSECTION 05/27/2021 12:10 PM Malignant Neoplasm CDT Of Thyroid Papillary (HCC) Case Notes ASSOCIATE PROJECT MANAGER [id number] documented in this encounter Results Surgical Pathology, Frozen Lab (05/27/2021 1:34 PM CDT) Component Value Ref Test Analysis Performed At [facility] Method Time Signature 05/28/2021 [facility] 5:05 PM CDT Participated in Deanne Jang, D.O.-Pathology Resident 05/28/2021 [facility] the Interpretation Crista Lyon M.D., Ph.D.-Pathology Resident 5:05 PM CDT Report Milla Byrd M.D. [phone] [facility] electronically 5:05 PM CDT signed by I verify that I have examined all relevant slides/materials for the specimen(s) and rendered or confirmed the diagnosis. Frozen A. ??Lymph nodes, right neck area IV, dissection: ??Mu ltiple [facility]28[facility]20[facility] Intraoperative (2 of 18) lymph nodes are involved by metastatic pap illary 5:05 PM CDT Report carcinoma. Signed by Milla Byrd M.D. [phone] 05/28/2021 11:47 AM Gross Description A. ??Received fresh labeled right select neck di ssection 05/28/2021 [facility] area 4 is a 7.5 x 3.5 x 1 cm select neck dissection 5:05 PM CDT including level IV. ??Multiple lymph nodes are present within the adipose tissue with a 1.5 cm grossly positive lymph node located in level IV. ??Lymph nodes are submitted for frozen and permanent sections. ??Grossed by SLC93. Block Summary A Right select neck dissection area 4 lymph nodes 05/28/2021 [facility] A1 Right select neck dissection area 4 lymph nodes 5:05 PM CDT 1(A1)-frozen A2 Right select neck dissection area 4 lymph nodes 1(A2)-frozen A3 Right select neck dissection area 4 lymph nodes 3(A3)-frozen A4 Right select neck dissection area 4 lymph nodes 5(A4)-frozen A5 Right select neck dissection area 4 lymph nodes 2(A5)-frozen A6 Right select neck dissection area 4 lymph nodes 1of2(A6)-frozen A7 Right select neck dissection area 4 lymph nodes 2of2(A6)-frozen A8 Right select neck dissection area 4 lymph nodes 3(A7)-frozen A9 Right select neck dissection area 4 lymph nodes 2(A8)-frozen Interpretation FINAL DIAGNOSIS 05/28/2021 [facility] 5:05 PM CDT A. ??Lymph nodes, right neck area IV, dissection: Multiple (2 of 18) lymph nodes are involved by metastatic papillary carcinoma. Specimen (Source) Anatomical Collection Method Collection Time Re ceived Time Location / / Volume Laterality Tissue (Lymph 05/27/2021 1:34 PM Node) CDT Narrative This result has an attachment that is no t available. Da Carr M.D. LAB SURG PATH ORDERABLES Performing Organization Address City/State/ZIP Code Phon e Number [facility] - [address] [place], [place] [address] [facility] [place] [address] [facility] [address] documented in this encounter Visit Diagnoses Diagnosis Malignant Neoplasm Of Thyroid (HCC) - Pr imary Malignant Neoplasm Of Thyroid Papillary (HCC) documented in this encounter Admitting Diagnoses Diagnosis Malignant Neoplasm Of Thyroid (HCC) Malignant Neoplasm Of Thyroid Papillary (HCC) documented in this encounter Administered Medications Inactive Administered Medications - up to 3 most recent administrations Medication Order MAR Action Action Date Dose Rate Site acetaminophen tablet 1,000 mg Given 05/27/2021 11:48 AM CDT 1,00 0 mg (TYLENOL) 1,000 mg, oral, Once, On Tue05/27/21 at 1145, For 1 dose, Pre-Op acetaminophen tablet 1,000 mg (TYLENOL) Given 05/27/2021 6:13 PM CDT 1,000 mg 1,000 mg, oral, Every 6 hours, First dose on Tue05/27/21 at 1500, Orally or per feeding tube. metoprolol tablet 12.5 mg (LOPRESSOR) 12.5 mg, oral, Once as needed, if patien t did not take their last scheduled dose of beta casie prior to arrival, Starting on Tue05/27/21 at 1144, For 1 dose, Pre-Op, Do not give if patient does not take scheduled beta bl ockers, if patient is receiving intravenous vasopressors or inotropes, if he art rate is less than 50 beats per minute, if systolic blood pres sure is less than 90 mmHg or if diastolic blood pressure is less than 40 mmHg, or if patient has an allergy to metoprolol. oxyCODONE IR tablet 10 mg (ROXICODONE) 10 mg, oral, Every 4 hours PRN, severe p ain or score 7-10 of 10, or pain greater than comfort goal, Starting on Tue05/27/21 at 1457 oxyCODONE IR tablet 5 mg (ROXICODONE) 5 mg, oral, Every 4 hours PRN, moderate pain or score 4-6 of 10, Starting on Tue05/27/21 at 1457 sodium chloride 0.9 % injection 10 mL 10 mL, intravenous, As needed, line care , Starting on Tue05/27/21 at 1144, Pre-Op, Peripheral Intravenous Catheter and Rapid Infusion Cat heter, prior to blood sampling, post blood transfusion or post blood samplin g sodium chloride 0.9 % injection 3 mL 3 mL, intravenous, As needed, line care, Starting on Tue05/27/21 at 1144, Pre-Op, Prior to and following infusion and betw een multiple consecutive infusions: sodium chloride 0.9 % injection sodium chloride 0.9 % injection 3 mL 3 mL, intravenous, Every 12 hours scheduled, First dos e on Tue05/27/21 at 2100, Pre-Op, Peripheral Intravenous Catheter and Rapid Infu ousmane Catheter, when no infusion to maintain patency documented in this encounter Active and Recently Administered Medications Times are shown in CDT. Scheduled Medication Order 05/25/2021 05/26/2021 05/27/2021 acetaminophen tablet 1,000 mg (TYLENOL) (COMPLETED) 1148 (Given - Provider: Rianna Soriano R.N.) 1,000 mg, oral, Once, On Tue05/27/21 at 1145, For 1 dose, Pre-Op acetaminophen tablet 1,000 mg (TYLENOL) 1813 (Given - Provider: Deanne Valdez RJackson) 1,000 mg, oral, Every 6 hours, First dos e on Tue05/27/21 at 1500, Orally or per feeding tube. sodium chloride 0.9 % injection 3 mL 3 mL, intravenous, Every 12 hours schedu led, First dose on Tue05/27/21 at 2100, Pre-Op, Peripheral Intravenous Catheter and Rapid Infusion Catheter, when no infusion to maintain patency sodium chloride 0.9 % injection 3 mL 3 mL, intravenous, Every 12 hours schedu led, First dose on Tue05/27/21 at 2100, Pre-Op, Peripheral Intravenous Catheter and Rapid Infusion Catheter, when no infusion to maintain patency vancomycin in NaCl 0.9% IVPB 1,250 mg (COMPLETED) 1250 (Given - Provider: Heath Killian, DOCK PUMPER, LOGISTICS ENGINEER, DNAP) 1,250 mg, intravenous, at 175 mL/hr, Adm inister over 90 Minutes, Once, On Tue05/27/21 at 1145, For 1 dose, Pre-Op, Administer within 2 hours prior to surgical incision, Drug Monitoring Program: Pharmaci st to adjust medication dosing based on indication and drug clearance factors., Indications: Prophylaxis, surgical Continuous Medication Order 05/25/2021 05/26/2021 05/27/2021 lactated ringers 1145 (Due) 20 mL/hr, intravenous, at 20 mL/hr, Cont inuous, Starting on Tue05/27/21 at 1145, Pre-Op lactated ringers 1515 (Due) 75 mL/hr, intravenous, at 75 mL/hr, Cont inuous, Starting on Tue05/27/21 at 1515, PACU & Post-Op phenylephrine 80 mcg/mL in NaCl 0.9% 250 mL infusion (CANCELED) 1317 (New Bag - Provider: Heath Killian APRN, KARISSA, DNAFranklin)1328 (Rate/Dose Change - Provider: Heath Killian APRN, KARISSA, DNAP)1422 (Rate/Dose Change - Provider: Rui Peters APRN, KARISSA, DNAP) 0-1 mcg/kg/min ? 77.1 kg Dosing weight (0-57.825 mL/hr, rounded to 0-57.83 mL/hr), intravenous, Continuous, Starting on Tue05/27/21 at 1315, Intra-Op, 20 mg in 250 mL, Patient Type: Standard, initiate 1430 (Rate/Dose Change - Provider: Rui Peters APRN, KARISSA, DNAFranklin)1438 (Stopped - Provider: Rui Peters APRN, CRNA, DNAFranklin) at: Other, Rate: Per Provider, Titrate a t: Other, Titrate: Per Provider, Goal: Other, Goal: Per Provider PRN Medication Order 05/25/2021 05/26/2021 05/27/2021 balanced salt solution ophthalmic irrigation (BSS) (CANCELED) 1441 (Given - Provider: Alisson Garrett M.D.) As needed, Starting on Tue05/27/21 at 1441, Intra-Op dexAMETHasone injection 4 mg (DECADRON) 4 mg, intravenous, Once as needed, nause a, vomiting, Starting on Tue05/27/21 at 1457, For 1 dose, Give only if NOT given during the pre or intraoperative period. If ondansetron ordered, give dexamethasone with first dose of ondansetron. fentaNYL injection 25 mcg (SUBLIMAZE) 25 mcg, intravenous, Every 2 min PRN, mo derate pain or score 4-6 of 10, severe pain or score 7-10 of 10, Starting on Tue05/27/21 at 1456, PACU (only), Up to maximum total dose of 200 mcg ibuprofen tablet 400 mg (ADVIL,MOTRIN) 400 mg, oral, Every 6 hours PRN, mild pa in or score 1-3 of 10, Starting on Tue05/27/21 at 1457, Take with food or milk if GI disturbances occur with use. ketamine injection 10 mg (KETALAR) 10 mg, intravenous, Once as needed, Refr actory moderate pain or score 4-6 of 10, Refractory severe pain score 7-10 of 10 after fentanyl or hydromorphone administration, Pain sedation mismatch AND RASS l ess than -1, Starting on Tue05/27/21 at 1456, For 1 dose, PACU ( only) lidocaine-EPINEPHrine 1 %-1:100,000 injection (XYLOCAINE W/EPI) (CANCELED) 1245 (Given - Provider: Alisson Garrett M.D.) As needed, Starting on Tue05/27/21 at 1245, Intra-Op metoprolol tablet 12.5 mg (LOPRESSOR) 12.5 mg, oral, Once as needed, if patien t did not take their last scheduled dose of beta casie prior to arrival, Starting on Tue05/27/21 at 1144, For 1 dose, Pre-Op, Do not give if patient does not ta ke scheduled beta blockers, if patient i s receiving intravenous vasopressors or inotropes, if heart rate is less than 50 beats per minute, if systolic blood pressure is less than 90 mmHg or if diastolic blood pressure is less than 40 mmHg, or if patient has an allergy to metoprolol. naloxone injection 0.2 mg (NARCAN) 0.2 mg, intravenous, Once as needed, res piratory depression, Starting on Tue05/27/21 at 1457, For 1 dose, For RASS Score -4 or less, respiratory rate of less than 8 breaths/min. Notify provider/service and rapid response team (if available at institution). ondansetron (PF) injection 4 mg (ZOFRAN) 4 mg, intravenous, Every 6 hours PRN, na usea, vomiting, Starting on Tue05/27/21 at 1457, For 48 hours, Reassess for nausea or vomiting after at least 10 minutes. If nausea or vomiting persists administe r next ordered antiemetic medications (o rder for antiemetic medication administration ondansetron then haloperidol then promethazine). oxyCODONE IR tablet 10 mg (ROXICODONE)(Linked Group 1) 10 mg, oral, Every 4 hours PRN, severe p ain or score 7-10 of 10, or pain greater than comfort goal, Starting on Tue05/27/21 at 1457 oxyCODONE IR tablet 5 mg (ROXICODONE)(Linked Group 1) 5 mg, oral, Every 4 hours PRN, moderate pain or score 4-6 of 10, Starting on Tue05/27/21 at 1457 promethazine injection 6.25 mg (PHENERGAN) 6.25 mg, intravenous, Every 6 hours PRN, nausea, vomiting, Starting on Tue05/27/21 at 1457, For 48 hours, RASS must be -2 or higher to administer. Reassess for nausea or vomiting after at least 10 minut es. If nausea or vomiting persists admin ister next ordered antiemetic medications (order for antiemetic medication administration ondansetron then haloperidol then promethazine) sodium chloride 0.9 % injection 10 mL 10 mL, intravenous, As needed, line care , Starting on Tue05/27/21 at 1144, Pre- Op, Peripheral Intravenous Catheter and Rapid Infusion Catheter, prior to blood sampling, post blood transfusion or post blood sampling sodium chloride 0.9 % injection 10 mL 10 mL, intravenous, As needed, line care , Starting on Tue05/27/21 at 1131, Pre- Op, Peripheral Intravenous Catheter and Rapid Infusion Catheter, prior to blood sampling, post blood transfusion or post blood sampling sodium chloride 0.9 % injection 3 mL 3 mL, intravenous, As needed, line care, Starting on Tue05/27/21 at 1144, Pre- Op, Prior to and following infusion and between multiple consecutive infusions: sodium chloride 0.9 % injection sodium chloride 0.9 % injection 3 mL 3 mL, intravenous, As needed, line care, Starting on Tue05/27/21 at 1131, Pre- Op, Prior to and following infusion and between multiple consecutive infusions: sodium chloride 0.9 % injection sodium hyaluronate 10 mg/mL intraocular injection (PROVISC) (CAN CELED) 1240 (Given - Provider: Alisson Garrett M.D.) As needed, Starting on Tue05/27/21 at 1240, Intra-Op Linked Groups Order Group 1: oxyCODONE IR tablet 5 mg (ROXICODONE)Jump to med 5 mg, oral, Every 4 hours PRN, moderate pain or score 4-6 of 10, Starting on Tue05/27/21 at 1457 Or oxyCODONE IR tablet 10 mg (ROXICODONE)Jump to med 10 mg, oral, Every 4 hours PRN, severe p ain or score 7-10 of 10, or pain greater than comfort goal, Starting on Tue05/27/21 at 1457 documented in this encounter Care Teams Commercial Production Editor Relationship Specialty Start Date End Date Elsewhere, Pcp PCP - General Family Medicine 10/25/18 documented as of this encounter
--- OUTSIDE RECORDS SUMMARY | 2022-08-27 11:23 | XMS_ITS | Encounter Summary ---
:[address] [facility] Address [address] [place] [address] Care Team Providers Name Role Phone Elsewhere, Pcp Primary Care Provider Unavailable Reason for Visit Reason Comments Pt called again Encounter Details Date Type Department Care Team Description 05/29/2021 Clinical Department of Lilly Pt called maria g thorpe Communication Otorhinolaryngology in [place], [place] [address] [place] [address] Social History Tobacco Use Types Packs/Day [...] More than 4 times per year 10/15/2019 orthodoxy services? Do you belong to any clubs [...] this encounter Miscellaneous Notes Telephone Encounter - GerryAlisson M.D. - 05/29/2021 8:00 PM CDT I talked to the patient on the phone this evening. He noticed some swelling above his incision. 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 The swelling is just above the medial aspect of the incision. Is approximately 1 cm in circumference. Hisfamily reports this feels slightly fluid-filled. He has not had any symptoms associated with this. No bruising. There is not been any rapid swelling of this area concerning for evolving hematoma. He did send in a picture which I was able to see through my email. To me this appears consistent with a seroma. It is approximately 1 cm in circumference. There is no overlying skin changes. No drainage. No wound dehiscence. I discussed options with the patient which could include coming to the treatment room tomorrow for a needle aspiration of the fluid collection verses follow-up e-mail with another picture tomorrow morning. I discussed the risks of leaving a large seroma undrained which could include in fection. I also discussed things to watch out for including rapid swelling in the neck, symptoms of shortness of breath stridor or dysphagia that would prompt evaluation in the emergency department. Patient was appreciative of these calls and will plan on sending me a picture of his neck tomorrow morning. All additional questions were addressed. Telephone Encounter - Radha Cochran V. - 05/29/2021 5:10 PM CDT Please see photo that was sent by patient today. Thank you, Letty Telephone Encounter - Radha Cochran V. - 05/29/2021 4:22 PM CDT Mr. Khanna called again because he is having edema around the incision site. He is going to try and send us a photo. I will forward photo when is come through. Patient is requesting a call back. Thank you, Letty Telephone Encounter - Becki Mccauley - 05/29/2021 9:28 AM CDT The patient calls. There is an area that is about 1.5 inches (size of a pencil around) on the top side of the lower incision area. It's not bothering him, but he is noticing fluid in it. He would appreciate a phone call prior to the weekend, wanting to verify nothign concerning. documented in this encounter Plan of Treatment Upcoming Encounters Date Type Specialty Care Team Description 10/11/2022 Appointment Laboratory Medicine Natasha Mullins APRN, C.N.P., M.S.N. [address] [place] [address] [phone] (Joanie rk) 10/11/2022 Ancillary Procedure Cardiovascular Disease Natasha Cramer APRN, Radha.N.P., M.S.N. [address] [place] [address] [phone] (Wo rk) 10/11/2022 Appointment Cardiovascular Disease Natasha Mullins APRN, C.N.P., M.S.N. [address] [place] [phone] (Wo rk) 10/12/2022 Office Visit Cardiovascular Disease Natasha Mullins APRN, C.N.P., M.S.N. [address] [place] [address] [phone] (Wo rk) documented as of this encounter Visit Diagnoses Not on filedocumented in this encounter Care Teams Psychiatric Nurse Relationship Specialty Start Date End Date Elsewhere, Pcp PCP - General Family Medicine 10/25/18 documented as of this encounter
--- OUTSIDE RECORDS SUMMARY | 2022-08-27 11:23 | XMS_ITS | Encounter Summary ---
:1945 Author Organization [facility] Address [address] [place] [address] Care Team Providers Name Role Phone Elsewhere, Pcp Primary Care Provider Unavailable Reason for Visit Reason Comments Med Refill Encounter Details Date Type Department Care Team Description 08/16/2021 Refill Division of Endocrinology in Loni Fung M.D. Med Refill [place], [place] [address] [facility] [address] [place] [phone] (Wo rk) Social History Tobacco Use Types Packs/Day Years [...] or relatives? How often do you attend pentecostal or More than 4 times per year 10/15/2019 latter day services? Do you belong to any clubs or Yes 10/15/2019 organizations such as pentecostal groups, unions, fraternal or athletic groups, or [...] this encounter Miscellaneous Notes Telephone Encounter - Che Buenrostro R.N. - 08/17/2021 8:15 AM CDT Prescription renewal request did not meet nurse protocol because: does not match plan of care per Endocrine note dated 04/22/21, due to no mention of medication dosing or continuing synthroid after surgery. Protocol utilized: Prescription Renewal Request for Medications: Division of Endocrinology, Diabetes, Metabolism and Nutrition. documented in this encounter Plan of Treatment Upcoming Encounters Date Type Specialty Care Team Description 10/11/2022 Appointment Laboratory Medicine Natasha Mullins APRN, C.N.P., M.S.N. [address] [place] [address] [phone] (Joanie rk) 10/11/2022 Ancillary Procedure Cardiovascular Disease Natasha Cramer APRN, C.N.P., M.S.N. [address] [place] [phone] (Joanie rk) 10/11/2022 Appointment Cardiovascular Disease Natasha Mullins APRN, C.N.P., M.S.N. [address] [place] [phone] (Joanie rk) 10/12/2022 Office Visit Cardiovascular Disease Natasha Mullins APRN, C.N.P., M.S.N. [address] [place] [address] [phone] (Joanie rk) documented as of this encounter Visit Diagnoses Not on filedocumented in this encounter Care Teams Manager Multicultural Relationship Specialty Start Date End Date Elsewhere, Pcp PCP - General Family Medicine 10/25/18 documented as of this encounter
--- OUTSIDE RECORDS SUMMARY | 2022-08-27 11:23 | XMS_ITS | Encounter Summary ---
:1945 Author Organization [facility] Address [address] [place] [address] Care Team Providers Name Role Phone Elsewhere, Pcp Primary Care Provider Unavailable Encounter Details Date Type Department Care Team Description 05/27/2021 Surgery RST BOAZ WATKINS OR [place] NECK DISSECTION, [address] [facility] Lupillo Carballo Revision neck, [place] [address] Social History Tobacco Use Types Packs/Day Years [...] or relatives? How often do you attend rastafari or More than 4 times per year 10/15/2019 baptist services? Do you belong to any clubs or Yes 10/15/2019 organizations such as rastafari groups, unions, fraternal or athletic groups, or [...] Sign Reading Time Taken Comments Blood Pressure 127/70 05/27/2021 3:45 PM CDT Pulse 84 05/27/2021 4:15 PM CDT Temperature 36.7 ??C (98.1 ??F) 05/27/2021 2:55 PM CDT Respiratory Rate 19 05/27/2021 3:45 PM CDT Oxygen Saturation 94% 05/27/2021 4:15 PM CDT Inhaled Oxygen Concentration - - Weight 77.1 kg (169 lb 15.6 oz) 05/27/2021 11:03 AM CDT Height 172.7 cm (5' 8) 05/27/2021 11:03 AM CDT Body Mass Index 25.84 05/27/2021 11:03 AM CDT documented in this encounter Discharge Summaries Alisson Garrett M.D. - 05/27/2021 6:15 PM CDT DISCHARGE SUMMARY BRIEF OVERVIEW Hospital: [facility] Discharge Provider: Da Carr M.D. Primary [...] through Care Everywhere. About Your IV Sedation (Citizen Of [place])documented in this encounter Medications at Time of [...] cancer. History of chronic lymphocytic leukemia. 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 CT CT Job ID: [id number] documented in this encounter Miscellaneous Notes Hospital [...] Medicine Natasha Mullins APRN, Radha.N.PCarmine, M.S.N. [address] [place] [phone] (Wo rk) 10/11/2022 Ancillary Procedure Cardiovascular Disease Natasha Cramer APRN, Radha.N.P., M.S.N. [address] [place] [phone] (Wo rk) 10/11/2022 Appointment Cardiovascular Disease Natasha Mullins APRN, C.N.PCarmine, M.S.N. [address] [place] [phone] (Joanie rk) 10/12/2022 Office Visit Cardiovascular Disease Natasha Mullins APRN, C.N.P., M.S.N. 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 [id number] [facility] electronically 5:05 PM CDT signed by I verify that I have examined all relevant slides/materials for the specimen(s) and rendered or confirmed the diagnosis. Frozen A. ??Lymph nodes, right neck area IV, dissection: ??Mu ltiple 05/28/2021 [facility] Intraoperative (2 of 18) lymph nodes are involved by metastatic pap illary 5:05 PM CDT Report carcinoma. Signed by Milla Byrd M.D. [id number] 05/28/2021 11:47 AM Gross Description A. ??Received fresh labeled right select neck di ssection 05/28/2021 [facility] area 4 is a 7.5 x 3.5 [...] neck dissection area 4 lymph nodes 05/28/2021 [facility] A1 Right select neck dissection area 4 [...] lymph nodes 2(A8)-frozen Interpretation FINAL DIAGNOSIS 05/28/2021 [facility] 5:05 PM CDT A. ??Lymph nodes, [...] Organization Address City/State/ZIP Code Phon e Number [facility] - [address] [place], [place] [address] [facility] [place] [address] Laboratories-[facility] [address] documented in this encounter Visit Diagnoses Diagnosis Malignant Neoplasm Of Thyroid (HCC) - Pr imary Malignant Neoplasm Of Thyroid Papillary (HCC) Malignant Neoplasm Of Thyroid Papillary (HCC) documented in this encounter Admitting Diagnoses Diagnosis Malignant Neoplasm Of Thyroid (HCC) Malignant Neoplasm Of Thyroid Papillary (HCC) documented in this encounter Administered Medications Inactive Administered Medications - up to 3 most recent administrations Medication Order MAR Action Action Date Dose Rate Site acetaminophen tablet 1,000 mg Given 05/27/2021 6:13 PM CDT 1,000 mg (TYLENOL) 1,000 mg, oral, Every 6 hours, First dose on Tue05/27/21 at 1500, Orally or per feeding tube. balanced salt solution ophthalmic Given 05/27/2021 2:41 PM CDT 3 0 mL Bilateral Eyes irrigation (BSS) As needed, Starting on Tue05/27/21 at 1441, Intra-Op lidocaine-EPINEPHrine 1 %-1:100,000 Given 05/27/2021 12:45 PM CD T 6 mL Right Neck injection (XYLOCAINE W/EPI) As needed, Starting on Tue05/27/21 at 1245, [...] when no infusion to maintain patency sodium hyaluronate 10 Given 05/27/2021 12:40 PM CDT 0.5 Syringes Bilateral Eyes mg/mL intraocular injection (PROVISC) As needed, Starting on Tue05/27/21 at 1240, Intra-Op documented in this encounter Active and Recently Administered Medications Times are shown in CDT. Scheduled Medication Order 05/25/2021 05/26/2021 05/27/2021 acetaminophen tablet 1,000 mg (TYLENOL) (COMPLETED) 1148 (Given - Provider: Rianna Soriano RJackson) 1,000 mg, oral, Once, On Tue05/27/21 at [...] mg (COMPLETED) 1250 (Given - Provider: Heath Killian APRN, KARISSA, DNAFranklin) 1,250 mg, intravenous, at 175 mL/hr, Adm [...] (Rate/Dose Change - Provider: Heath Killian APRN, CRNA, DNAFranklin)1422 (Rate/Dose Change - Provider: Rui Peters APRN, CRNA, DNAFranklin) 0-1 mcg/kg/min ? 77.1 kg Dosing weight (0-57.825 mL/hr, rounded to 0-57.83 mL/hr), intravenous, Continuous, Starting on Tue05/27/21 at 1315, Intra-Op, 20 mg in 250 mL, Patient Type: Standard, initiate 1430 (Rate/Dose Change - Provider: Rui Peters APRN, CRNA, BRAYAN)1438 (Stopped - Provider: Rui Peters APRN, CRNA, [...] 1457 documented in this encounter Care Teams Upfitter Relationship Specialty Start Date End Date Elsewhere, Pcp PCP - General Family Medicine 10/25/18 documented as of this encounter
--- OUTSIDE RECORDS SUMMARY | 2022-08-27 11:23 | XMS_ITS | Encounter Summary ---
:1945 Author Organization [facility] Address [address] [place] [address] Care Team Providers Name Role Phone Elsewhere, Pcp Primary Care Provider Unavailable Reason for Referral Outpatient (Routine) - Closed Specialty Diagnoses / Procedures Referred By Contact Refer red To Contact Endocrinology Loni Wu M .D. [facility] [address] [place] [phone] Referral ID Status Reason Start Date Expiration Date Visits Requ ested Visits Authorized [id number] Closed 05/28/2021 05/28/2022 1 1 Outpatient (Routine) - Closed Specialty Diagnoses / Procedures Referred By Contact Refer red To Contact Diagnoses Malignant Neoplasm Of Thyroid (HCC) Loni Wu M.D. [facility] Procedures US Head Neck Soft Tissue [address] [place] [address] [phone] Referral ID Status Reason Start Date Expiration Date Visits Requ ested Visits Authorized [id number] Closed 05/28/2021 05/28/2022 1 1 Encounter Details Date Type Department Care Team Description 05/28/2021 Orders Only Division of Endocrinology Loni Wu Ma lignant Neoplasm Of in [place], [facility] rotary shear operator Kate, M.D. Thyroid (HCC) (Primary [address] [place]x) [place] [address] [place], [place] [phone] Social History Tobacco Use Types Packs/Day Years [...] or relatives? How often do you attend christianity or More than 4 times per year 10/15/2019 tenriism services? Do you belong to any clubs or Yes 10/15/2019 organizations such as christianity groups, unions, fraternal or athletic groups, or [...] Medicine Natasha Mullins APRN, C.N.P., M.S.N. [address] [place] [address] [phone] (Joanie velázquez) 10/11/2022 Ancillary Procedure Cardiovascular Disease Natasha Cramer APRN, Radha.N.P., M.S.N. [address] [place] [address] [phone] (Joanie velázquez) 10/11/2022 Appointment Cardiovascular Disease Natasha Mullins APRN, C.N.P., M.S.N. [address] [place] [address] [phone] (Joanie velázquez) 10/12/2022 Office Visit Cardiovascular Disease Natasha Mullins APRN, Radha.N.P., M.S.N. [address] [place] [address] [phone] (Joanie velázquez) Scheduled Referrals Name Type Priority Associated Order Schedule Diagnoses Endocrinology office Outpatient Referral Routine Expected: visit (clinic) 09/28/2021 (Approximate), Expires: 05/28/2024 documented as of this encounter Results US Head Neck Soft Tissue (12/17/2021 12:27 PM RETAIL SALES ASSOCIATE SEASONAL) Anatomical Region Laterality Modality Head and Neck, Ultrasound RST LOS, Ultrasound ARZ LOS, N/A Ultrasound Ultrasound FLA LOS Specimen (Source) Anatomical Collection Method Collection Time Re ceived Time Location / / Volume Laterality 12/17/2021 12:27 PM RETAIL SALES ASSOCIATE SEASONAL Impressions 12/17/2021 12:36 PM RETAIL SALES ASSOCIATE SEASONAL 1. Interval lymph node dissection with removal of the biopsy-proven right level 4 metastasis. 2. Stable biopsy-proven recurrence in th e left mid bed. 3. Scattered bilateral cervical chain ly mph nodes are also unchanged. Narrative 12/17/2021 12:36 PM RETAIL SALES ASSOCIATE SEASONAL EXAM: US HEAD NECK SOFT TISSUE COMPARISON: [facility] ultrasound 03/[address] 04/22/2021 FINDINGS: Thyroidectomy. The patient has undergone interval lymph node dissection with removal of the biopsy-pr oven right level 4 metastasis. Biopsy-proven current nodules in the lef t mid bed are unchanged. Stable hypoechoic left and right level 2 lymph nodes. Other lymph nodes also remain unchanged. Procedure Note Orville Enriquez M.D. - 12/17/2021Formatt ing of this note might be different from the original. EXAM: US HEAD NECK SOFT TISSUE COMPARISON: [facility] ultrasound 03/[address] 04/22/2021 FINDINGS: Thyroidectomy. The patient has undergone interval lymph node dissection with removal of the biopsy-pr oven right level 4 metastasis. Biopsy-proven current nodules in the lef t mid bed are unchanged. Stable hypoechoic left and right level 2 lymph nodes. Other lymph nodes also remain unchanged. IMPRESSION: 1. Interval lymph node dissection with r emoval of the biopsy-proven right level 4 metastasis. 2. Stable biopsy-proven recurrence in th e left mid bed. 3. Scattered bilateral cervical chain ly mph nodes are also unchanged. Loni ALVARADO US PROCEDURES (ABNORMAL) S-TSH (Thyroid-Stimulating Hormone - Sensitive) (12/17/2021 10:47 AM RETAIL SALES ASSOCIATE SEASONAL) P athologist Signature TSH, Sensitive 0.04 (L) 0.3 - 4.2 12/17/2021 DTL mIU/L 12:11 PM RETAIL SALES ASSOCIATE SEASONAL Specimen Anatomical Collection Method Collection Time Receive d Time (Source) Location / / Volume Laterality Blood (Blood, 12/17/2021 10:47 12/17/2021 Venous) AM RETAIL SALES ASSOCIATE SEASONAL 11:43 AM RETAIL SALES ASSOCIATE SEASONAL Loni Wu M.D. LAB BLOOD ADD-ON Performing Organization Address City/[facility] Phon e Number [facility] - [address] [place] [address] Laboratories-[address] (ABNORMAL) T4 (Thyroxine), Free (12/17/2021 10:47 AM RETAIL SALES ASSOCIATE SEASONAL) P athologist Signature T4 1.8 (H) 0.9 - 1.7 12/17/2021 DTL (Thyroxine), ng/dL 12:11 PM RETAIL SALES ASSOCIATE SEASONAL Free, S Specimen Anatomical Collection Method Collection Time Receive d Time (Source) Location / / Volume Laterality Blood (Blood, 12/17/2021 10:47 12/17/2021 Venous) AM RETAIL SALES ASSOCIATE SEASONAL 11:43 AM RETAIL SALES ASSOCIATE SEASONAL Loni Wu M.D. LAB BLOOD ADD-ON Performing Organization Address City/[facility] Phon e Number [facility] - [address] (ABNORMAL) Thyroglobulin, Tumor Marker (12/17/2021 10:47 AM RETAIL SALES ASSOCIATE SEASONAL) Patholo gist Method Time Signature Thyroglobulin 6.0 (H) <1.8 12/17/2021 [facility]SC Antibody, S IU/mL 4:14 PM RETAIL SALES ASSOCIATE SEASONAL Thyroglobulin, <0.1 ng/mL 12/17/2021 [facility] Tumor Marker, S 4:10 PM RETAIL SALES ASSOCIATE SEASONAL Comment: ----REFERENCE VALUE---- Athyrotic <0.1 Intact Thyroid <=33 Thyroglobulin Interpretation SEE COMMENT 4:14 PM RETAIL SALES ASSOCIATE SEASONAL [facility]SC Comment: Quantitation of thyroglobulin may be unr [...] testing methods are immunoenzymatic assays manufactured by [employer] and performed on the [employer] DXI 800 . Values obtained from different assay met hods or kits may be different and cannot be used inte rchangeably. The results cannot be interpreted as abs olute evidence for the presence or absence of malignant disease. Specimen Anatomical Collection Method Collection Time Receive d Time (Source) Location / / Volume Laterality Blood (Blood, 12/17/2021 10:47 12/17/2021 3:00 Venous) AM RETAIL SALES ASSOCIATE SEASONAL PM RETAIL SALES ASSOCIATE SEASONAL Loni Wu M.D. LAB BLOOD ADD-ON Performing Organization Address City/State/ZIP Code Phon e Number [facility] [address] [place] [address] SUPPORT CENTER [facility] [address] Laboratory Medicine and Pathology [address] [place] documented in this encounter Visit Diagnoses Diagnosis Malignant Neoplasm Of Thyroid (HCC) - Pr imary Malignant Neoplasm Of Thyroid (HCC) documented in this encounter Additional Health Concerns Infection Onset Date Last Indicated Resolved Time COVID19 Pending 06/03/2021 06/03/2021 06/03/2021 3:03 PM CDT documented as of this encounter Care Teams Rail Car Unloader Relationship Specialty Start Date End Date Elsewhere, Pcp PCP - General Family Medicine 10/25/18 documented as of this encounter
--- OUTSIDE RECORDS SUMMARY | 2022-08-27 11:23 | XMS_ITS | Encounter Summary ---
:1945 Author Organization [facility] Address [address] [place] [address] Care Team Providers Name Role Phone Elsewhere, Pcp Primary Care Provider Unavailable Reason for Referral Outpatient (Routine) - Closed Specialty Diagnoses / Procedures Referred By Contact Refer red To Contact Diagnoses Malignant Neoplasm Of Thyroid (HCC) Loni Wu M.D. [facility] Procedures US Head Neck Soft Tissue [address] [place] [phone] Referral ID Status Reason Start Date Expiration Date Visits Requ ested Visits Authorized [id number] Closed 05/28/2021 05/28/2022 1 1 LOPER Reason for Visit Outpatient (Routine) - Closed Specialty Diagnoses / Procedures Referred By Contact Refer red To Contact Diagnoses Malignant Neoplasm Of Thyroid (HCC) Loni Wu M.D. [facility] Procedures US Head Neck Soft Tissue [address] [place] [phone] Referral ID Status Reason Start Date Expiration Date Visits Requ ested Visits Authorized [id number] Closed 05/28/2021 05/28/2022 1 1 Encounter Details Date Type Department Care Team Description 12/17/2021 Hospital Encounter Department of Loni uW Neoplasm Of Radiology, Jethro Love M.D. Thyroid (HCC) [facility], in [address] [place], [place] [address] [facility] [phone] [place], [place] [phone] (Work) [phone] Social History Tobacco Use Types Packs/Day Years [...] or relatives? How often do you attend methodist or More than 4 times per year 10/15/2019 orthodoxy services? Do you belong to any clubs or Yes 10/15/2019 organizations such as methodist groups, unions, fraternal or athletic groups, or [...] Medicine Natasha Mullins APRN, Radha.N.Franklin., M.S.N. [address] [place] [phone] (Joanie velázquez) 10/11/2022 Ancillary Procedure Cardiovascular Disease Natasha Cramer APRN, Radha.N.P., M.S.N. [address] [place] [phone] (Wo eber) 10/11/2022 Appointment Cardiovascular Disease Natasha Mullins APRN, Radha.N.P., M.S.N. [address] [place] [phone] (Wo rk) 10/12/2022 Office Visit Cardiovascular Disease Natasha Mullins APRN, Radha.N.P., M.S.N. [address] [place] [phone] (Wo rk) documented as of this encounter Procedures Procedure Name Priority Date/Time Associated Comments Diagnosis US HEAD NECK SOFT RAD - Routine 12/17/2021 12:27 Malignant Resul ts for this TISSUE (most inpatients PM SCALLOPER Neoplasm Of procedure a re in and all Thyroid (HCC) the results outpatients) section. documented in this encounter Results US Head Neck Soft Tissue (12/17/2021 12:27 PM SCALLOPER) Anatomical Region Laterality Modality Head and Neck, Ultrasound RST LOS, Ultrasound ARZ LOS, N/A Ultrasound Ultrasound FLA LOS Specimen (Source) Anatomical Collection Method Collection Time Re ceived Time Location / / Volume Laterality 12/17/2021 12:27 PM SCALLOPER Impressions 12/17/2021 12:36 PM SCALLOPER 1. Interval lymph node dissection with removal of the biopsy-proven right level 4 metastasis. 2. Stable biopsy-proven recurrence in th e left mid bed. 3. Scattered bilateral cervical chain ly mph nodes are also unchanged. Narrative 12/17/2021 12:36 PM SCALLOPER EXAM: US HEAD NECK SOFT TISSUE COMPARISON: [facility] ultrasound 03/[address] 04/22/2021 FINDINGS: Thyroidectomy. [...] EXAM: US HEAD NECK SOFT TISSUE COMPARISON: [facility] ultrasound 03/[address] 04/22/2021 FINDINGS: Thyroidectomy. [...] ly mph nodes are also unchanged. Loni Wu M.D. [facility] US PROCEDURES documented in this encounter Visit Diagnoses Diagnosis Malignant Neoplasm Of Thyroid (HCC) documented in this encounter Care Teams Bobbin Stripper Relationship Specialty Start Date End Date Elsewhere, Pcp PCP - General Family Medicine 10/25/18 documented as of this encounter
--- OUTSIDE RECORDS SUMMARY | 2022-08-27 11:23 | XMS_ITS | Encounter Summary ---
:1945 Author Organization [facility] Address [address] [place] [address] Care Team Providers Name Role Phone Elsewhere, Pcp Primary Care Provider Unavailable Encounter Details Date Type Department Care Team Description 2021 Orders Only RST PCP HLTH Gabbi Mahoney M.D. [address] [place], [place] [phone] (Wo rk) Social History Tobacco Use Types [...] or relatives? How often do you attend holiness or More than 4 times per year 10/15/2019 judaism services? Do you belong to any clubs or Yes 10/15/2019 organizations such as holiness groups, unions, fraternal or athletic groups, or [...] Natasha Mullins APRN, C.N.P., M.S.N. [address] [place] [phone] (Wo rk) 10/11/2022 Ancillary Procedure Cardiovascular Disease Natasha Cramer APRN, Radha.N.P., M.S.N. [address] [place] [phone] (Wo rk) 10/11/2022 Appointment Cardiovascular Disease Natasha Mullins APRN, C.N.Jalen, M.S.N. [address] [place] [phone] (Wo rk) 10/12/2022 Office Visit Cardiovascular Disease Natasha Mullins APRN, Radha.N.P., M.S.N. [address] [place] [phone] (Wo rk) documented as of this encounter Visit Diagnoses Not on filedocumented in this encounter Care Teams Flowers Salesperson Relationship Specialty Start Date End Date Elsewhere, Pcp PCP - General Family Medicine 10/25/18 documented as of this encounter
--- OUTSIDE RECORDS SUMMARY | 2022-08-27 11:23 | XMS_ITS | Encounter Summary ---
:1945 Author Organization [facility] Address [address] [place] [address] Care Team Providers Name Role Phone Elsewhere, Pcp Primary Care Provider Unavailable Reason for Referral Outpatient (Routine) - Authorized Specialty Diagnoses / Procedures Referred By Contact Refer red To Contact Endocrinology Loni Wu M .D. [facility] [address] [place] [address] [phone] Referral ID Status Reason Start Date Expiration Date Visits V isits Requested Authorized [id number] Authorized 12/17/2021 12/17/2022 1 1 TING FRAME OPERATOR Outpatient (Routine) - Authorized Specialty Diagnoses / Procedures Referred By Contact Refer red To Contact Diagnoses Malignant Neoplasm Of Thyroid Papillary (HCC) Lymphadenopathy Cervical Loni Wu M.D. [facility] Procedures US Head Neck Soft Tissue [address] [place] [address] [phone] Referral ID Status Reason Start Date Expiration Date Visits V isits Requested Authorized [id number] Authorized 12/17/2021 12/17/2022 1 1 TING FRAME OPERATOR Reason for Visit Outpatient (Routine) - Closed Specialty Diagnoses / Procedures Referred By Contact Refer red To Contact Endocrinology Loni Wu M .D. [facility] [address] [place] [address] [phone] Referral ID Status Reason Start Date Expiration Date Visits Requ ested Visits Authorized [id number] Closed 05/28/2021 05/28/2022 1 1 Encounter Details Date Type Department Care Team Description 12/17/2021 Office Visit Division of Loni Wu Malignant Neopl asm Of Thyroid Papillary (HCC) (Primary Dx); Endocrinology in [place] Lymphadenopathy Cervical [place], [place] [address] [place] [phone] Social History Tobacco Use Types Packs/Day Years [...] or relatives? How often do you attend spiritism or More than 4 times per year 10/15/2019 advent services? Do you belong to any clubs or Yes 10/15/2019 organizations such as spiritism groups, unions, fraternal or athletic groups, or [...] documented as of this encounter Progress Notes Loni Wu M.D. - 12/17/2021 4:00 PM CST SUBJECTIVE HISTORY OF PRESENT ILLNESS Mr. Khanna is well known to me. He is here today for followup of papillary thyroid cancer. He was last seen in April of last year prior to undergoing revision right lateral neck dissection and excision of multiple lymph nodes in that compartment by Dr. Carr. He had a total of 18 lymph nodes on the right lateral neck level IV that were removed. Two of these turned out to be positive for PTC. He also has a history of lymphoma and has had long-standing adenopathy which makes it difficult sometimes to determine which of the lymph nodes are due to PTC versus lymphoma. He had repeat labs done this morning that show that his TSH remains adequately suppressed at 0.04, his free T4 remains excellent at 1.8. His thyroglobulin which was elevated at 17 nine months ago is now undetectable. His neck ultrasound shows interval lymph node dissection with removal of the biopsy-proven right level IV metastases, a stable tiny biopsy- proven recurrence in the left mid bed that is fairly small and unchanged, and some scattered bilateral cervical chain lymph nodes that are also unchanged. He feels fairly well. He voices no acute concerns. He is tolerating well his dose of levothyroxine. No thyroid-related symptoms. OBJECTIVE PHYSICAL EXAMINATION General: This is a well-appearing elderly man in no acute distress. Eyes: Exam is negative. Neck: Healed thyroidectomy scar. No palpable residual thyroid tissue. No palpable neck adenopathy. Lungs: Clear to auscultation bilaterally. Heart: Regular, without murmurs. Extremities: No edema, clubbing, or cyanosis. 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 Khanna. I think at the present time things are looking good. His dose of levothyroxine is adequate. It is reassuring to see that his thyroglobulin has become undetectable after his recent neck surgery, suggesting a very good response to treatment. Atthis time, I recommend continued monitoring. He has prominent lymph nodes in the upper neck level II, but I suspect that these are related to his lymphoma and not PTC. We will continue to monitor, and I will arrange for him to be seen by me with repeat imaging of neck ultrasound in approximately 6 months. He is in agreement with this plan. I have renewed his prescriptions and answered all his questions. Loni Wu M.D. CT CT Job ID: [id number] TING FRAME OPERATOR documented in this encounter Plan of Treatment Upcoming Encounters Date Type Specialty Care Team Description 10/11/2022 Appointment Laboratory Medicine Natasha Mullins APRN, C.N.P., M.S.N. [address] [place] [phone] (Wo rk) 10/11/2022 Ancillary Procedure Cardiovascular Disease Natasha Cramer APRN, C.N.PCarmine, M.S.N. [address] [place] [phone] (Wo rk) 10/11/2022 Appointment Cardiovascular Disease Natasha Mullins APRN, Radha.N.PCarmine, M.S.N. [address] [place] [phone] (Wo rk) 10/12/2022 Office Visit Cardiovascular Disease Natasha Mullins APRN, C.N.P., M.S.N. [address] [place] [phone] (Joanie rk) Scheduled Orders Name Type Priority Associated Diagnoses Order S chedule US Head Neck Soft Imaging RAD - Routine (most Malignant Neopla sm Expected: Tissue inpatients and all Of Thyroid Papillary 0 06/16/2022 outpatients) (HCC) (Approximate), Lymphadenopathy Expires: Cervical 03/16/2023 Thyroglobulin, Lab Routine Malignant Neoplasm Expecte d: Tumor Marker Of Thyroid Papillary (HCC) (Approximate), Lymphadenopathy Expires: Cervical 03/16/2023 T4 (Thyroxine), Lab Routine Malignant Neoplasm Expect ed: Free Of Thyroid Papillary 022 (HCC) (Approximate), Lymphadenopathy Expires: Cervical 12/17/2022 S-TSH Lab Routine Malignant Neoplasm Expected: (Thyroid-Stimulati Of Thyroid Papillary 0 06/16/2022 ng Hormone - ([facility]) (Approximate), Sensitive) Lymphadenopathy Expires: Cervical 12/17/2022 Scheduled Referrals Name Type Priority Associated Order Schedule Diagnoses Endocrinology office Outpatient Referral Routine Expected: visit (clinic) 06/16/2022 (Approximate), Expires: 03/16/2023 documented as of this encounter Visit Diagnoses Diagnosis Malignant Neoplasm Of Thyroid Papillary (HCC) - Primary Lymphadenopathy Cervical documented in this encounter Care Teams International Travel Consultant Relationship Specialty Start Date End Date Elsewhere, Pcp PCP - General Family Medicine 10/25/18 documented as of this encounter
--- OUTSIDE RECORDS SUMMARY | 2022-08-27 11:23 | XMS_ITS | Encounter Summary ---
:1945 Author Organization [facility] Address [address] [place] [address] Care Team Providers Name Role Phone Elsewhere, Pcp Primary Care Provider Unavailable Encounter Details Date Type Department Care Team Description 12/16/2021 Clinical Communication Division of Loni Wu Endocrinology in [place], [place] [address] [place] [address] [place] [phone] Social History Tobacco Use Types Packs/Day Years [...] or relatives? How often do you attend voodoo or More than 4 times per year 10/15/2019 latter-day services? Do you belong to any clubs or Yes 10/15/2019 organizations such as voodoo groups, unions, fraternal or athletic groups, or [...] Medicine Natasha Mullins APRN, C.N.P., M.S.N. [address] [place] [phone] (Wo rk) 10/11/2022 Ancillary Procedure Cardiovascular Disease Natasha Cramer APRN, C.N.P., M.S.N. [address] [place] [phone] (Wo rk) 10/11/2022 Appointment Cardiovascular Disease Natasha Mullins APRN, Radha.N.P., M.S.N. [address] [place] [phone] (Wo rk) 10/12/2022 Office Visit Cardiovascular Disease Natasha Mullins APRN, Radha.N.P., M.S.N. [address] [place] [phone] (Joanie rk) documented as of this encounter Visit Diagnoses Not on filedocumented in this encounter Care Teams Ship/Rec/Doc Control Relationship Specialty Start Date End Date Elsewhere, Pcp PCP - General Family Medicine 10/25/18 documented as of this encounter
--- OUTSIDE RECORDS SUMMARY | 2022-08-27 11:23 | XMS_ITS | Encounter Summary ---
:1945 Author Organization [facility] Address [address] [place] [address] Care Team Providers Name Role Phone Elsewhere, Pcp Primary Care Provider Unavailable Reason for Referral Outpatient (Routine) - Authorized Specialty Diagnoses / Procedures Referred By Contact Refer red To Contact Diagnoses Left Anterior Fascicular [facility] ECG Heart Rhythm Monitor (Holter) Justin MCCLELLAN, M.S.N. [address] [place] [address] [phone] Referral ID Status Reason Start Date Expiration Date Visits V isits Requested Authorized [id number] Authorized 10/16/2021 10/16/2022 1 1 UME SHOP MANAGER Reason for Visit Outpatient (Routine) - Authorized Specialty Diagnoses / Procedures Referred By Contact Refer red To Contact Diagnoses Left Anterior Fascicular Block [facility] Procedures ECG Heart Rhythm Monitor (Holter) Justin MCCLELLAN, M.S.N. [address] [place] [phone] Referral ID Status Reason Start Date Expiration Date Visits V isits Requested Authorized [id number] Authorized 10/16/2021 10/16/2022 1 1 Encounter Details Date Type Department Care Team Description 10/20/2021 Hospital Department of Chai Fgaan, Left Anter ior Encounter Cardiovascular VY Kaur Fascicular B lock Diseases in [place], C.N.P., M .S.N. [place] [address] [facility] [address] [place] [phone] Social History Tobacco Use Types Packs/Day Years [...] or relatives? How often do you attend sikh or More than 4 times per year 10/15/2019 jain services? Do you belong to any clubs or Yes 10/15/2019 organizations such as sikh groups, unions, fraternal or athletic groups, or [...] Natasha Mullins APRN, C.N.P., M.S.N. [address] [place] [phone] (Joanie velázquez) 10/11/2022 Ancillary Procedure Cardiovascular Disease Natasha Cramer APRN, C.N.P., M.S.N. [address] [place] [phone] (Joanie velázquez) 10/11/2022 Appointment Cardiovascular Disease Natasha Mullins APRN, C.N.P., M.S.N. [address] [place] [phone] (Wo rk) 10/12/2022 Office Visit Cardiovascular Disease Natasha Mullins APRN, C.N.P., M.S.N. [address] [place] [phone] (Wo rk) documented as of this encounter Procedures Procedure Name Priority Date/Time Associated Diagnosis Comme nts HOLTER MONITOR - IN Routine 10/21/2021 2:44 PM Left Anterior R esults for this CLINIC SPECIAL FORCES MEDICAL SERGEANT COSTUME SHOP MANAGER Fascicular Block procedure are in the results section. documented in this encounter Results HOLTER MONITOR - IN CLINIC SPECIAL FORCES MEDICAL SERGEANT (10/21/2021 2:44 PM COSTUME SHOP MANAGER) [facility] Method Time Signature Min Heart Rate [...] AF Duration 0 duration INFOBIONIC MOME AF [place] 0 percent INFOBIONIC MOME Symptom Count 0 count INFOBIONIC MOME Specimen (Source) Anatomical Collection Method Collection Time Re ceived Time Location / / Volume Laterality 10/20/2021 2:04 PM COSTUME SHOP MANAGER Narrative INFOBIONIC MOME - 10/22/2021 2:50 PM COSTUME SHOP MANAGER 1. The basic rhythm was sinus. The [...] than 1%. 4.No symptomatic events were noted. Corporate Webmaster: Lisa Wade McKenzi e Procedure Note Hi Khan M.D. - 10/22/2021Formatt [...] than 1%. 4.No symptomatic events were noted. Corporate Webmaster: Lisa aWde McKenzi e Natasha Arikophelia Radha Fagan APRN.N.P., M.S.N. [facility] PROCEDURES Performing Organization Address City/State/ZIP Code Phon e Number INFOBIONIC MOME INFOBIONIC MOME NA documented in this encounter Visit Diagnoses Diagnosis Left Anterior Fascicular Block documented in this encounter Care Teams Ventilation Worker Relationship Specialty Start Date End Date Elsewhere, Pcp PCP - General Family Medicine 10/25/18 documented as of this encounter
--- OUTSIDE RECORDS SUMMARY | 2022-08-27 11:24 | XMS_ITS | Encounter Summary ---
:1945 Author Organization [facility] Address [address] [place] [address] Care Team Providers Name Role Phone Elsewhere, Pcp Primary Care Provider Unavailable Encounter Details Date Type Department Care Team Description 04/23/2021 Documentation Department of Da Carr Otorhinolaryngology alma Carballo M.D. [place], [place] [address] [place] [phone] Social History Tobacco Use Types Packs/Day [...] or relatives? How often do you attend yazidism or More than 4 times per year 10/15/2019 islam services? Do you belong to any clubs or Yes 10/15/2019 organizations such as yazidism groups, unions, fraternal or athletic groups, or [...] documented as of this encounter Progress Notes Da Carr M.D. - 04/23/2021 3:29 PM CDT Reviewed the CT and note the right area 4 node deep to the jugular vein and likley approximating thevertebral vein. This would be the focus for excision. The nodule in the left thyroid bed is quite small and further intervention for that finding can be integrated later (likely ethanol ablation). documented in this encounter Plan of Treatment Upcoming Encounters Date Type Specialty Care Team Description 10/11/2022 Appointment Laboratory Medicine Natasha Mullins APRN, Radha.N.P., M.S.N. [address] [place] [phone] (Wo rk) 10/11/2022 Ancillary Procedure Cardiovascular Disease Natasha Cramer APRN, C.N.P., M.S.N. [address] [place] [phone] (Joanie rk) 10/11/2022 Appointment Cardiovascular Disease Natasha Mullins APRN, C.N.P., M.S.N. [address] [place] [phone] (Joanie rk) 10/12/2022 Office Visit Cardiovascular Disease Natasha Mullins APRN, C.N.P., M.S.N. [address] [place] [phone] (Joanie rk) documented as of this encounter Visit Diagnoses Not on filedocumented in this encounter Care Teams Lidar Scientist Relationship Specialty Start Date End Date Elsewhere, Pcp PCP - General Family Medicine 10/25/18 documented as of this encounter
--- OUTSIDE RECORDS SUMMARY | 2022-08-27 11:24 | XMS_ITS | Encounter Summary ---
:1945 Author Organization [facility] Address [address] [place] [address] Care Team Providers Name Role Phone Elsewhere, Pcp Primary Care Provider Unavailable Reason for Visit Reason Comments Neck dissection at [place] 05/[address] Carr when to stop Plavix? Encounter Details Date Type Department Care Team Description 05/21/2021 Clinical Department of Chai [facility] Mae in CONTROL ANALYST C.NLilly Jackson; w [place], [place] M.S.N. to stop Plavix? [address] [facility] [address] [place] [phone] Social History Tobacco Use Types Packs/Day Years [...] or relatives? How often do you attend mandaen or More than 4 times per year 10/15/2019 samaritan services? Do you belong to any clubs or Yes 10/15/2019 organizations such as mandaen groups, unions, fraternal or athletic groups, or [...] this encounter Miscellaneous Notes Telephone Encounter - Aletha Fong R.N. - 05/21/2021 12:37 PM CDT RN left detailed voicemail telling patient to discuss holding Plavix before neck dissection with surgeon Dr. Carr. RN left phone number if patient has further questions or concerns. Telephone Encounter - Jose Piedra - 05/21/2021 8:45 AM CDT SUBJECTIVE CHIEF COMPLAINT / REASON FOR CALL Neck dissection at [place] 05/[address] Carr and when to stop Plavix? Name of caller/relationship to the patient: Mr. Khanna Patient expects communication via portal: No Phone number: [phone] Please call with recommendation to stop Plavix prior to neck dissection on 05/27/21. documented in this encounter Plan of Treatment Upcoming Encounters Date Type Specialty Care Team Description 10/11/2022 Appointment Laboratory Medicine Natasha Mullins APRN, Radha.N.Franklin., M.S.N. [address] [place] [phone] (Joanie velázquez) 10/11/2022 Ancillary Procedure Cardiovascular Disease Natasha Cramer APRN, Radha.N.P., M.S.N. [address] [place] [phone] (Wo eber) 10/11/2022 Appointment Cardiovascular Disease Natasha Mullins APRN, Radha.N.P., M.S.N. [address] [place] [phone] (Wo rk) 10/12/2022 Office Visit Cardiovascular Disease Natasha Mullins APRN, Radha.N.P., M.S.N. [address] [place] [phone] (Wo rk) documented as of this encounter Visit Diagnoses Not on filedocumented in this encounter Care Teams Superannuation Funds Manager Relationship Specialty Start Date End Date Elsewhere, Pcp PCP - General Family Medicine 10/25/18 documented as of this encounter
--- OUTSIDE RECORDS SUMMARY | 2022-08-27 11:24 | XMS_ITS | Encounter Summary ---
:1945 [facility] Address [address] [place] [address] Care Team Providers Name Role Phone Elsewhere, Pcp Primary Care Provider Unavailable Reason for Visit Reason Comments May 4 or 5? Encounter Details Date Type Department Care Team Description 03/13/2021 Clinical Communication Division of Dionicio Muniz , March 4 or 5? Hematology in Dante Garcia M.D. [place], [place] [address] [facility] [address] [place] [phone] Social History Tobacco Use Types Packs/Day Years [...] for the very basics like Not h irihs at all 05/31/2020 food, housing, medical care, [...] this encounter Miscellaneous Notes Telephone Encounter - Katherin Porter Isacc - 03/13/2021 3:27 PM CDT PET/labs and office visit with Margy scheduled for March 17. Thank you! Telephone Encounter - Dante Brown M.D. - 03/13/2021 2:48 PM CDT Looks like there a PET-CT scheduled for March 18 at 7:00 a.m. let us just take the next available APPappointment after that Telephone Encounter - Katherin Porter - 03/13/2021 2:05 PM CDT Depending on which day they can get a PET early enough, there is Althea, Marisa, and Margy on 03/17 and Althea and Margy on 03/19. Telephone Encounter - Katherin Porter - 03/13/2021 12:[address] Dionicio Muniz, Endocrinology called. They said you spoke with their Dr. Wu today and agreed that pt's appointments should be moved up to next week. You are gone most of next week. 1) Were you wanting to add this pt on 03/18 in the afternoon? 2) Should we schedule with an MARIE next week instead? Please advise, and thank you for your time. Katherin, NEL PASS: [place] [phone]. documented in this encounter Plan of Treatment Upcoming Encounters Date Type Specialty Care Team Description 10/11/2022 Appointment Laboratory Medicine Natasha Mullins APRN, C.N.P., M.S.N. [address] [place] [address] (Wo rk) 10/11/2022 Ancillary Procedure Cardiovascular Disease GrazNatasha Peraza APRN, C.NRenetta, M.S.N. [address] [place] [phone] (Wo rk) 10/11/2022 Appointment Cardiovascular Disease Natasha Mullins APRN, C.N.P., M.S.N. [address] [place] [phone] (Joanie velázquez) 10/12/2022 Office Visit Cardiovascular Disease Natasha Mullins APRN, C.NRenetta, M.S.N. [address] [place] [phone] (Joanie velázquez) documented as of this encounter Visit Diagnoses Not on filedocumented in this encounter Care Teams Doctor Of Veterinary Medicine Relationship Specialty Start Date End Date Elsewhere, Pcp PCP - General Family Medicine 10/25/18 documented as of this encounter
--- OUTSIDE RECORDS SUMMARY | 2022-08-27 11:24 | XMS_ITS | Encounter Summary ---
:1945 Author Organization [facility] Address [address] [place] [address] Care Team Providers Name Role Phone Elsewhere, Pcp Primary Care Provider Unavailable Reason for Referral Outpatient (Routine) - Closed Specialty Diagnoses / Procedures Referred By Contact Refer red To Contact Diagnoses Lymphoma Nodular Multiple Site (HCC) Edison Alvarez M.B.B.S. [facility] Procedures PET CT Skull to Thigh FDG Referral ID Status Reason Start Date Expiration Date Visits Requ ested Visits Authorized [id number] Closed 04/28/2020 04/28/2021 6 6 Reason for Visit Outpatient (Routine) - Closed Specialty Diagnoses / Procedures Referred By Contact Refer red To Contact Diagnoses Lymphoma Nodular Multiple Site (HCC) Edison Alvarez M.B.B.S. [facility] Procedures PET CT Skull to Thigh FDG Referral ID Status Reason Start Date Expiration Date Visits Requ ested Visits Authorized [id number] Closed 04/28/2020 04/28/2021 6 6 Encounter Details Date Type Department Care Team Description 03/17/2021 Hospital Encounter Department of Edison Alvarez, Lymphoma Nodular Radiology, Darvin LoweBCarmineSCarmine Multiple Site (HCC) [facility], in [place], [place] [address] [place] [address] Social History Tobacco Use Types Packs/Day Years [...] More than 4 times per year 10/15/2019 episcopal services? Do you belong to any clubs [...] Sig Dispensed Refills Start Date End Date albuterol (PROVENTIL Inhale 1-2 puffs as 0 [...] mouth 0 mg 24 hr capsule daily. acetaminophen (Tylenol Take 500 mg by mouth 0 10/16/2021 Extra Strength) 500 mg every 6 (six) hours tablet as needed for pain. ALBUTEROL SULFATE INHL Inhale. 0 bisacodyL (DULCOLAX) 5 Take by mouth. 0 0 05/27/2021 mg EC tablet calcium carbonate Chew 1 tablet 2 0 08/25/2015 (OS-ARLEEN) 1,250 mg (500 (two) times a day as mg calcium) chewable needed. Heartburn. tablet carvediloL (COREG) 25 mg Take 1 tablet (25 mg 180 tablet 3 1 12/16/2019 10/16/2021 tablet total) by mouth 2 (two) times a day. clopidogreL (PLAVIX) 75 Take 1 tablet (75 mg 90 tablet 3 10/16/2021 mg tablet total) by mouth daily. docusate sodium (COLACE) Take 1 capsule (50 60 capsule 0 03/202105/27/2021 50 mg capsule mg total) by mouth 2 (two) times a day. fluconazole (Diflucan) Take by mouth. 0 05/27/2021 100 mg tablet fluticasone propionate Inhale. 0 (FLOVENT HFA INHL) ibuprofen (ADVIL,MOTRIN) Take 3 tablets (600 0 10/16/2021 200 mg tablet mg total) by mouth every 6 (six) hours as needed for pain (Purchase over the counter. Alternate with acetaminophen.). levothyroxine Take 1 tablet (200 90 tablet 3 06/03/202002/2021 (SYNTHROID, LEVOTHROID) mcg total) by mouth 200 mcg tablet daily. lisinopriL Take 1 tablet (40 mg 90 tablet 3 10/15/2020 12/01/2021 (PRINIVIL,ZESTRIL) 40 mg total) by mouth tablet daily. nitroglycerin Place 1 tablet (0.4 25 tablet 3 10/15/2020 (NITROSTAT) 0.4 mg SL mg total) under the tablet tongue as needed for chest pain. May repeat every 5 x 2. If no relief with 3rd tab call 911. rosuvastatin (Crestor) Take 1 tablet (40 mg 30 tablet 11 12/201910/16/2021 40 mg tablet total) by mouth daily. traMADoL (ULTRAM) 50 mg Take 1 tablet (50 mg 12 tablet 0 05/27/2021 tabletIndications: Acute total) by mouth Pain every 6 (six) hours as needed for pain (Pain not relieved by acetaminophen.) Indications: acute pain. documented as of this encounter Plan of Treatment Upcoming Encounters Date Type Specialty Care Team Description 10/11/2022 Appointment Laboratory Medicine Natasha Mullins APRN, C.N.P., M.S.N. [address] [place] [address] (Wo rk) 10/11/2022 Ancillary Procedure Cardiovascular Disease Natasha Cramer APRN, Radha.N.P., M.S.N. [address] [place] [phone] (Wo rk) 10/11/2022 Appointment Cardiovascular Disease Natasha Mullins APRN, C.N.Jalen, M.S.N. [address] [place] [address] [phone] (Wo rk) 10/12/2022 Office Visit Cardiovascular Disease Natasha Mullins APRN, C.N.[place]., M.S.N. [address] [place] [address] [phone] (Joanie rk) documented as of this encounter Procedures Procedure Name Priority Date/Time Associated Comments Diagnosis PET CT SKULL TO RAD - Routine 03/17/2021 8:18 Lymphoma Nodular Resu lts for this THIGH (most inpatients AM CDT Multiple Site procedure are in and all (HCC) the results outpatients) section. documented in this encounter Results PET CT Skull to Thigh FDG (03/17/2021 8:18 AM CDT) Anatomical Region Laterality Modality Body, Nuclear Medicine PET RST LOS, N/A Posi terry Emission Tomography (PET), PET ARZ LOS, Nuclear Medicine PET FLA Po sitron Emission Tomography (PET) LOS, Nuclear Medicine Specimen (Source) Anatomical Collection Method Collection Time Re ceived Time Location / / Volume Laterality 03/17/2021 8:45 AM CDT Impressions 03/17/2021 9:36 AM CDT 1. Since 04/28/2020, new tiny foci of FDG uptake in the bilateral infraclavicular neck likely correspondin g to the recently sampled right level IV ijeoma and left thyroid bed metastatic pa pillary thyroid carcinoma. No additional worrisome foci of FDG uptake in the head /neck. 2. No findings for recurrent or residual lymphoma. Deauville 1. 3. No significant change in the tiny foc us of mildly increased FDG uptake within the right prostate gland that again may be related to BPH although a focal prostate cancer would appear similar. Narrative 03/17/2021 9:36 AM CDT EXAM: ??PET CT SKULL TO THIGH FDG Serum glucose at time of F-18 FDG inject ion was 97 mg/dL. Patient followed standard dietary/fasting requirements fo r this exam. RADIOPHARMACEUTICAL/MEDS: Route: intravenous fludeoxyglucose F 18 injection FCI (FDG F-18),9.95 millicurie TECHNIQUE: ??F-18 FDG PET/CT scan was pe rformed from the orbits through the thighs with low dose, non-contrast, free -breathing CT images for attenuation correction and anatomic localization (AC /AL), with imaging beginning at approximately 60 minutes after radiotrac er injection. COMPARISON: ??CT PET CT 04/28/2020, CT c hest without contrast 03/12/2021, ultrasound head/neck 03/10/2021. INDICATION: ??History of B-cell lymphoma . Also with history of papillary thyroid cancer status post total thyroidectomy, lymphadenectomy, and radioiodine therapy. Newly diagnosed interval recurr ent papillary thyroid carcinoma in the left thyroid bed and a right level 4 lym ph node (FNA 03/12/2021). Interval postoperative changes left inguinal maria t ia repair (01/16/2021). No known interval therapy for his lymphoma. Subse quent treatment strategy. FINDINGS: Since 04/28/2020, new focus of FDG uptake in the right neck with SUV max 2.8 likely corresponds to the recent ly sampled right level IV lymph node with SUV max 2.8 (image 82). Additional tiny focus of increased FDG uptake in the left thyroidectomy bed best seen on IRQ PET image 89 with SUV max 3.0, likely corresponds to the recently sampl ed recurrent left thyroid bed papillary carcinoma. Interval postoperative changes left ingu inal hernia repair with corresponding increased FDG uptake with SUV max 5.0 (i mage 250), likely postoperative. Mild bilateral gynecomastia, left greater sangeeta n right with stable corresponding low-level FDG uptake. Persistent focal low level uptake in the anterolateral right upper extremity subcutaneous tissues corresponding to a tiny subcutaneous cyst versus nodule (image 95), likely infectious/inflammato ry. Direct inspection recommended. Interval resolution of the previously de monstrated mild uptake in the left temporoparietal scalp. Persistent tiny f ocus of activity within the right mid Prostate gland (image 285). No additiona l new worrisome focus of FDG uptake. Incidental findings on low-dose, unenhan luc CT images: Moderate mucosal membrane thickening scattered throughout the para nasal sinuses, most prominently involving the left maxillary sinus. Thyr oidectomy. Vascular including coronary arterial calcification/stenting. Enlarge d calcified prostate. Procedure Note Pop Cao M.D. - 03/17/2021For matting of this note might be different from the original. EXAM: PET CT SKULL TO THIGH FDG Serum glucose at time of F-18 FDG inject ion was 97 mg/dL. Patient followed standard dietary/fasting requirements fo r this exam. RADIOPHARMACEUTICAL/MEDS: Route: intravenous fludeoxyglucose F 18 injection FCI (FDG F-18),9.95 millicurie TECHNIQUE: F-18 FDG PET/CT scan was perf ormed from the orbits through the thighs with low dose, non-contrast, free -breathing CT images for attenuation correction and anatomic localization (AC /AL), with imaging beginning at approximately 60 minutes after radiotrac er injection. COMPARISON: CT PET CT 04/28/2020, CT [address] without contrast 03/12/2021, ultrasound head/neck 03/10/2021. INDICATION: History of B-cell lymphoma. Also with history of papillary thyroid cancer status post total thyroidectomy, lymphadenectomy, and radioiodine therapy. Newly diagnosed interval recurr ent papillary thyroid carcinoma in the left thyroid bed and a right level 4 lym ph node (FNA 03/12/2021). Interval postoperative changes left inguinal maria t ia repair (01/16/2021). No known interval therapy for his lymphoma. Subse quent treatment strategy. FINDINGS: Since 04/28/2020, new focus of FDG uptake in the right neck with SUV max 2.8 likely corresponds to the recent ly sampled right level IV lymph node with SUV max 2.8 (image 82). Additional tiny focus of increased FDG uptake in the left thyroidectomy bed best seen on IRQ PET image 89 with SUV max 3.0, likely corresponds to the recently sampl ed recurrent left thyroid bed papillary carcinoma. Interval postoperative changes left ingu inal hernia repair with corresponding increased FDG uptake with SUV max 5.0 (i mage 250), likely postoperative. Mild bilateral gynecomastia, left greater sangeeta n right with stable corresponding low-level FDG uptake. Persistent focal low level uptake in the anterolateral right upper extremity subcutaneous tissues corresponding to a tiny subcutaneous cyst versus nodule (image 95), likely infectious/inflammato ry. Direct inspection recommended. Interval resolution of the previously de monstrated mild uptake in the left temporoparietal scalp. Persistent tiny f ocus of activity within the right mid Prostate gland (image 285). No additiona l new worrisome focus of FDG uptake. Incidental findings on low-dose, unenhan luc CT images: Moderate mucosal membrane thickening scattered throughout the para nasal sinuses, most prominently involving the left maxillary sinus. Thyr oidectomy. Vascular including coronary arterial calcification/stenting. Enlarge d calcified prostate. IMPRESSION: 1. 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 No additional worrisome foci of FDG uptake in the head /neck. 2. No findings for recurrent or residual lymphoma. Deauville 1. 3. No significant change in the tiny foc us of mildly increased FDG uptake within the right prostate gland that again may be related to BPH although a focal prostate cancer would appear similar. Edison Medina IMG [place] PROCEDURES documented in this encounter Visit Diagnoses Diagnosis Lymphoma Nodular Multiple Site (HCC) documented in this encounter Administered Medications Inactive Administered Medications - up to 3 most recent administrations Medication Order MAR Action Action Date Dose Rate Site fludeoxyglucose F 18 Given 03/17/2021 6:56 AM 9.95 millicuries injection FCI (FDG F-18) CDT 9.95 millicurie, intravenous, Once, On Tue03/17/21 at 0715, For 1 dose documented in this encounter Care Teams Pneumatic System Conveyor Operator Relationship Specialty Start Date End Date Elsewhere, Pcp PCP - General Family Medicine 10/25/18 documented as of this encounter
--- OUTSIDE RECORDS SUMMARY | 2022-08-27 11:24 | XMS_ITS | Encounter Summary ---
:1945 Author Organization [facility] Address [address] [place] [address] Care Team Providers Name Role Phone Elsewhere, Pcp Primary Care Provider Unavailable Reason for Visit Reason Comments questions about stopping plavix before surgery Encounter Details Date Type Department Care Team Description 05/21/2021 [facility] questions abou t Communication Otorhinolaryngology in , Da L, stop ping plavix [place], [place] M.D. before surgery [address] [place] [address] Social History Tobacco Use [...] or relatives? How often do you attend jewish or More than 4 times per year 10/15/2019 roman catholic services? Do you belong to any clubs or Yes 10/15/2019 organizations such as jewish groups, unions, fraternal or athletic groups, or [...] this encounter Miscellaneous Notes Telephone Encounter - Iqra Rose Cas - 05/21/2021 2:12 PM CDT Patient called. He contacted the physician that prescribed his plavix asking if it is ok to stop themedication for surgery. That physician told him that he needed to get direction from the physician performing surgery. He is asking what he should do about his plavix before surgery. Surgery: 05/27/2021 Last seen: 04/21/2021 Diagnosis: #1 Metastatic papillary thyroid cancer #2 History of lymphoma #3 Bilateral nasal polyps [phone] ok to leave message Thanks Iqra documented in this encounter Plan of Treatment Upcoming Encounters Date Type Specialty Care Team Description 10/11/2022 Appointment Laboratory Medicine Natasha Mullins APRN, Radha.N.P., M.S.N. [address] [place] [phone] (Wo rk) 10/11/2022 Ancillary Procedure Cardiovascular Disease Natasha Cramer APRN, Radha.N.P., M.S.N. [address] [place] [address] [phone] (Wo rk) 10/11/2022 Appointment Cardiovascular Disease Natasha Mullins APRN, C.N.P., M.S.N. [address] [place] [address] [phone] (Wo rk) 10/12/2022 Office Visit Cardiovascular Disease Natasha Mullins APRN, C.N.P., M.S.N. [address] [place] [address] [phone] (Wo rk) documented as of this encounter Visit Diagnoses Not on filedocumented in this encounter Additional Health Concerns Infection Onset Date Last Indicated Resolved Time COVID19 Pending 05/26/2021 05/26/2021 05/26/2021 12:04 PM CDT documented as of this encounter Care Teams Travel Accommodation Inspector Relationship Specialty Start Date End Date Elsewhere, Pcp PCP - General Family Medicine 10/25/18 documented as of this encounter
--- OUTSIDE RECORDS SUMMARY | 2022-08-27 11:24 | XMS_ITS | Encounter Summary ---
:1945 Author Organization [facility] Address [address] [place] [address] Care Team Providers Name Role Phone Elsewhere, Pcp Primary Care Provider Unavailable Encounter Details Date Type Department Care Team Description 04/30/2021 Documentation Preoperative Evaluation Charmaine Ramos, [place] in [facility] [address] [facility] [address] [place] [phone] Social History Tobacco Use Types Packs/Day Years [...] documented as of this encounter Progress Notes Melida Ramos, R.R.T. - 04/30/2021 9:43 AM CDT There was a complete review of the EMR (Electronic Medical Record) to ascertain if a JENNIFER (Pre-Op Exam) appointment is needed. Scheduled for NECK DISSECTION - Revision neck, level IV on 05/27/2021 to be performed by Dr. Da Carr. The following portions of the patient's history were reviewed and updated as appropriate: current medications, medical history, surgical history and problem list. Based upon information available in the EMR, patient can proceed directly to the OR (operating room)for the planned procedure. Physical exam to be done by anesthesia the morning of procedure. If the patient is on anticoagulation or antiplatelet agents, perioperative management is arranged bythe surgical service as indicated. The patient should skip all oral anti-diabetic agents, ANGELIC (yqewgzoqgcf-cwljzmbtdu-pjsllh) inhibitors, diuretics, ARB's (angiotensin receptor blockers) and tobacco products on the day of the procedure. This is a JENNIFER pre-screening note. The patient was not seen in JENNIFER. documented in this encounter Plan of Treatment Upcoming Encounters Date Type Specialty Care Team Description 10/11/2022 Appointment Laboratory Medicine Natasha Mullins APRN, C.N.PCarmine, M.S.N. [address] [place] [address] [phone] (Joanie velázquez) 10/11/2022 Ancillary Procedure Cardiovascular Disease Natasha Cramer APRN, C.N.P., M.S.N. [address] [place] [address] [phone] (Joanie velázquez) 10/11/2022 Appointment Cardiovascular Disease Natasha Mullins APRN, C.N.P., M.S.N. [address] [place] [address] [phone] (Joanie velázquez) 10/12/2022 Office Visit Cardiovascular Disease Natasha Mullins APRN, C.N.P., M.S.N. [address] [place] [address] [phone] (Joanie velázquez) documented as of this encounter Visit Diagnoses Not on filedocumented in this encounter Care Teams Boat Ride Operator Relationship Specialty Start Date End Date Elsewhere, Pcp PCP - General Family Medicine 10/25/18 documented as of this encounter
--- OUTSIDE RECORDS SUMMARY | 2022-08-27 11:24 | XMS_ITS | Encounter Summary ---
:1945 Author Organization [facility] Address [address] [place] [id number] Care Team Providers Name Role Phone Elsewhere, Pcp Primary Care Provider Unavailable Reason for Referral MRI/CAT/PET Scan (Routine) - Closed Specialty Diagnoses / Procedures Referred By Contact Refer red To Contact Radiology Diagnoses Malignant Neoplasm Of Thyroid (HCC) Da Carr M.D. [facility] Procedures CT Neck Soft Tissue with IV Contrast CT Neck Soft Tissue without and with IV Contrast [address] [place] [address] Referral ID Status Reason Start Date Expiration Date Visits Requ ested Visits Authorized [id number] Closed 04/21/2021 04/21/2022 1 1 Reason for Visit Outpatient (Routine) - Closed Specialty Diagnoses / Procedures Referred By Contact Refer red To Contact Otorhinolaryngology Diagnoses Malignant [facility]CC) [facility] [place] [address] [place] [address] Referral ID Status Reason Start Date Expiration Date Visits Requ ested Visits Authorized [id number] Closed 03/19/2021 03/19/2022 1 1 Encounter Details Date Type Department Care Team Description 04/21/2021 Comprehensive Visit Department of Lilly matias Otorhinolaryngology in [place], [place] Thyroid (HCC) [address] [place] [address] (Primary Dx) [place] [address] Social History Tobacco Use Types Packs/Day [...] More than 4 times per year 10/15/2019 christianity services? Do you belong to any clubs [...] encounter Progress Notes Da Carr M.D. - 04/21/2021 2:00 PM CDT SUBJECTIVE This is an established patient followup visit; it is also a consult. REFERRAL SOURCE: Loni Wu M.D. CHIEF COMPLAINT/REASON FOR VISIT Metastatic thyroid cancer. 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 He had undergone a left neck dissection April 17, 2019, due to left-sided neck adenopathy, and he presents with further evaluation subsequent to elevation of the thyroglobulin with ultrasound imaging raising concern for a left thyroid bed nodule and a right area 4 lymph node, both of which have been biopsied and considered positive for papillary thyroid cancer. Dr. Wu has recommended consideration of a right neck dissection to address the biopsy-positive right neck disease, and consideration would be given to alcohol ablation on the left thyroid bed disease. OBJECTIVE PHYSICAL EXAMINATION General: Mr. Khanna is alert, in no acute distress. ENT: Inspection of the ears reveals some wax bilaterally, but the tympanic membranes are intact. Palpation of the neck does not reveal obvious palpable masses in the neck. He has a prominent hyoid boneand a well-healed incision from his prior surgeries. Examination of the oral cavity did not reveal obvious mucosal ulceration or abnormalities. To evaluate the vocal folds, fiberoptic endoscopy was utilized, which was completed after the topical application of lidocaine and Chao-Synephrine. Noted were bilateral inflammatory samy-nasal polyps. The nasopharynx was clear. Vocal folds moved symmetrically.There is a small anterior subglottic ridge that could be an old scar or simply just a variant of normal. ASSESSMENT / PLAN #1 Metastatic papillary thyroid cancer #2 History of lymphoma #3 Bilateral nasal polyps PLAN: 1. CT scan of the neck with contrast. This would help in localizing and further characterizing adenopathy. It would also help in understanding the location within the thyroid bed on the left side the biopsy-proven nodule. I discussed related to his metastatic papillary thyroid cancer right neck dissection and that the scope of the dissection would be dependent in part on intraoperative pathology findings such that the scope of surgery could be modified to at least sample upper neck nodes and adjust accordingly based on lymphoma versus metastatic thyroid cancer. 2. We discussed potential benefit of using topical nasal steroids for an extended period of time to assess response of his polyps and that if this did not resolve and if there is a seasonal variation followup with an allergy consult or consult in rhinology could be considered. He has commitments to help with the care of a grandchild at least through May 17, so I anticipate coordination of surgery subsequent to that date, and I reassured him that was certainly reasonable. We discussed surgery risks, goals, convalescence, etc. Will ask Polly Coelho RN, to schedule a CT scan, and then I will review those subsequently. Da Carr M.D. CT CT Job ID: [id number] documented in this encounter Plan of Treatment Upcoming Encounters Date Type Specialty Care Team Description 10/11/2022 Appointment Laboratory Medicine Natasha Mullins APRN, Radha.N.P., M.S.N. [address] [place] [phone] (Wo ) 10/11/2022 Ancillary Procedure Cardiovascular Disease Natasha Cramer APRN, Radha.N.P., M.S.N. [address] [place] [phone] (Wo rk) 10/11/2022 Appointment Cardiovascular Disease Natasha Mullins APRN, C.NRenetta, M.S.N. [address] [place] [address] (Wo rk) 10/12/2022 Office Visit Cardiovascular Disease Natasha Mullins APRN, C.NRenetta, M.S.N. [address] [place] [phone] (Wo rk) documented as of this encounter Results CT Neck Soft Tissue with IV Contrast (04/22/2021 6:33 PM CDT) Anatomical Region Laterality Modality Neck, Neuroradiology RST LOS, N/A Computed T omography, Computed Neuroradiology ARZ LOS, Neuroradiology T omography FLA LOS Specimen (Source) Anatomical Collection Method Collection Time Re ceived Time Location / / Volume Laterality 04/23/2021 10:17 AM CDT Impressions 04/23/2021 10:52 AM CDT 1. New lower right level 3 lymph node, suspicious for metastatic papillary thyroid carcinoma. 2. No definite change in the ill-defined soft tissue density in the left thyroidectomy bed. 3. Stable nonenlarged right lower left n harrison supraclavicular lymph nodes. 4. New pansinusitis as described. Narrative 04/23/2021 10:52 AM CDT EXAM: CT NECK SOFT TISSUE WITH IV CONTRAST COMPARISON: Soft tissue neck CT with con trast dated 03/20/2019. ??PET/CT 03/17/2021. 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 Also history of thyroidectomy for papillary thyroid carc inoma with recurrence/metastatic left cervical ijeoma disease that was PET posi tive on 02/15/2019. The patient has undergone interval left neck dissection since the previous CT of 03/20/2019. There is a new partially cystic approxim ately 1 cm (short axis) right level 3 lymph node at the level of the cricoid c artilage, posterior to the internal jugular vein and lateral, anterior to th e common carotid artery (series 5 image 75). The node was hypermetabolic on the comparison PET/CT and suspicious for metastatic papillary thyroid cancer. The ill-defined soft tissue density within the left thyroidectomy bed is without si gnificant change from the prior study. The nonenlarged lymph nodes in the more lateral right level 3-5/supraclavicular regions, are unchanged from the prior an d may represent stable treated lymphoma. Interval development of severe berg paran anthony sinusitis with complete opacification of the frontal and left ma xillary sinuses. Central density may reflect inflammatory enhancement versus inspissated secretions or fungal, allergic fungal disease. More moderate c hanges in the ethmoid sinuses, and mild sphenoid sinus mucosal thickening. Procedure Note Cornell Murillo M.D. - 04/23/2021Format ting of this note might be different from the original. EXAM: CT NECK SOFT TISSUE WITH IV CONTRA ST COMPARISON: Soft tissue neck CT with con trast dated 03/20/2019. PET/CT 03/17/2021. 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 Also history of thyroidectomy for papillary thyroid carc inoma with recurrence/metastatic left cervical ijeoma disease that was PET posi tive on 02/15/2019. The patient has undergone interval left neck dissection since the previous CT of 03/20/2019. There is a new partially cystic approxim ately 1 cm (short axis) right level 3 lymph node at the level of the cricoid c artilage, posterior to the internal jugular vein and lateral, anterior to th e common carotid artery (series 5 image 75). The node was hypermetabolic on the comparison PET/CT and suspicious for metastatic papillary thyroid cancer. The ill-defined soft tissue density within the left thyroidectomy bed is without si gnificant change from the prior study. The nonenlarged lymph nodes in the more lateral right level 3-5/supraclavicular regions, are unchanged from the prior an d may represent stable treated lymphoma. Interval development of severe berg paran anthony sinusitis with complete opacification of the frontal and left ma xillary sinuses. Central density may reflect inflammatory enhancement versus inspissated secretions or fungal, allergic fungal disease. More moderate c hanges in the ethmoid sinuses, and mild sphenoid sinus mucosal thickening. IMPRESSION: 1. New lower right level 3 lymph node, s uspicious for metastatic papillary thyroid carcinoma. 2. No definite change in the ill-defined soft tissue density in the left thyroidectomy bed. 3. Stable nonenlarged right lower left n harrison supraclavicular lymph nodes. 4. New pansinusitis as described. Da Carr M.D. IMG CT PROCEDURES Creatinine with Estimated GFR (04/22/2021 4:01 PM CDT) P athologist Signature Creatinine 0.92 0.74 - 04/22/2021 DTL 1.35 mg/dL 4:53 PM CDT eGFR-Non 80 >=60 04/22/2021 DTL Black/ mL/min/BSA 4:53 PM CDT New Zealander Comment: ----ADDITIONAL INFORMATION---- Estimated GFR calculated using the 2009 CKD_EPI creatinine equation. eGFR-Black/ >90 >=60 mL/min/BSA 2020 4:53 PM CDT DTL Comment: ----ADDITIONAL INFORMATION---- Estimated GFR calculated using the 2009 CKD_EPI creatinine equation. Specimen Anatomical Collection Method Collection Time Receive d Time (Source) Location / / Volume Laterality Blood (Blood, 04/22/2021 4:01 PM 04/22/20 4:21 Venous) CDT PM CDT Da Carr M.D. LAB BLOOD ADD-ON Performing Organization Address City/State/ZIP Code Phon e Number [facility] - [address] [place], [place] [address] [facility] [place] [address] Laboratories-[facility] [address] documented in this encounter Visit Diagnoses Diagnosis Malignant Neoplasm Of Thyroid (HCC) - Pr imary Malignant Neoplasm Of Thyroid (HCC) documented in this encounter Care Teams Comic Book Designer Relationship Specialty Start Date End Date Elsewhere, Pcp PCP - General Family Medicine 10/25/18 documented as of this encounter
--- OUTSIDE RECORDS SUMMARY | 2022-08-27 11:24 | XMS_ITS | Encounter Summary ---
:1945 Author Organization [facility] Address [address] [place] [address] Care Team Providers Name Role Phone Elsewhere, Pcp Primary Care Provider Unavailable Encounter Details Date Type Department Care Team Description 04/29/2021 Clinical Communication Department of Jazmyn Zamora Otorhinolaryngology in [place], [place] [phone] [address] [facility] (Work) [place] [address] Social History Tobacco Use Types Packs/Day [...] or relatives? How often do you attend orthodox or More than 4 times per year 10/15/2019 rastafari services? Do you belong to any clubs or Yes 10/15/2019 organizations such as orthodox groups, unions, fraternal or athletic groups, or [...] this encounter Miscellaneous Notes Telephone Encounter - Leesa Boss - 04/30/2021 8:24 AM CDT Blue surgical checklist booklet has been mailed to the patient. Telephone Encounter - Jazmyn Zamora - 04/29/2021 10:30 AM CDT Mr. Khanna called and would like to pursue with scheduling the procedure. At your earliest convenience please prepare listing and place any additional orders needed. Jazmyn documented in this encounter Plan of Treatment Upcoming Encounters Date Type Specialty Care Team Description 10/11/2022 Appointment Laboratory Medicine Natasha Mullins APRN, C.N.P., M.S.N. [address] [place] [phone] (Joanie rk) 10/11/2022 Ancillary Procedure Cardiovascular Disease Natasha Cramer APRN, C.N.P., M.S.N. [address] [place] [phone] (Joanie rk) 10/11/2022 Appointment Cardiovascular Disease Natasha Mullins APRN, C.N.P., M.S.N. [address] [place] [phone] (Joanie rk) 10/12/2022 Office Visit Cardiovascular Disease Natasha Mullins APRN, Radha.N.P., M.S.N. [address] [place] [phone] (Joanie rk) documented as of this encounter Visit Diagnoses Not on filedocumented in this encounter Care Teams Hand Inserter Operator Relationship Specialty Start Date End Date Elsewhere, Pcp PCP - General Family Medicine 10/25/18 documented as of this encounter
--- OUTSIDE RECORDS SUMMARY | 2022-08-27 11:24 | XMS_ITS | Encounter Summary ---
:1945 Author Organization [facility] Address [address] [place] [address] Care Team Providers Name Role Phone Elsewhere, Pcp Primary Care Provider Unavailable Reason for Referral Outpatient (Routine) - Closed Specialty Diagnoses / Procedures Referred By Contact Refer red To Contact Endocrinology Loni Wu M .D. [facility] [address] [place] [phone] Referral ID Status Reason Start Date Expiration Date Visits Requ ested Visits Authorized [id number] Closed 03/11/2021 03/11/2022 1 1 Outpatient (Routine) - Closed Specialty Diagnoses / Procedures Referred By Contact Refer red To Contact Diagnoses Malignant Neoplasm Of Thyroid (HCC) Loni Wu M.D. [facility] Procedures US Superficial Tissue Fine Needle Aspiration [address] [place] [phone] Referral ID Status Reason Start Date Expiration Date Visits Requ ested Visits Authorized [id number] Closed 03/11/2021 03/11/2022 1 1 Reason for Visit Outpatient (Routine) - Closed Specialty Diagnoses / Procedures Referred By Contact Refer red To Contact Endocrinology Loni Wu M .D. [facility] [address] [place] [phone] Referral ID Status Reason Start Date Expiration Date Visits Requ ested Visits Authorized [id number] Closed 06/03/2020 06/03/2021 1 1 Encounter Details Date Type Department Care Team Description 03/11/2021 Virtual Visit Division of Loni Wu Of Endocrinology in [place] Thyroid (HCC) [place], [place] 200 [facility] (Primary Dx) [address] [place] [phone] Social History Tobacco Use Types Packs/Day Years [...] or relatives? How often do you attend oriental orthodox or More than 4 times per year 10/15/2019 mandaeism services? Do you belong to any clubs or Yes 10/15/2019 organizations such as oriental orthodox groups, unions, fraternal or athletic groups, [...] encounter Progress Notes Loni Wu M.D. - 03/11/2021 10:30 AM CDT SUBJECTIVE CHIEF COMPLAINT/REASON FOR VISIT This is a telephone followup visit with Mr. Khanna for evaluation of metastatic papillary thyroid cancer. HISTORY OF PRESENT ILLNESS Mr. Khanna was last seen in May of last year for followup of his thyroid cancer. He has a history of metastatic papillary thyroid cancer for which he initially underwent a total thyroidectomy elsewhere followed by a left modified neck dissection here by Dr. Carr a couple of years ago. He was at the time found to have multiple lymph nodes involved with the largest one measuring approximately 4cm. At the time of his last surgery, his thyroglobulin had increased to approximately 19. Postoperatively, it dropped significantly to 0.3 by August of 2019. Subsequently, it slightly increased to 0.9at the time of his last visit, but his ultrasound was essentially negative. A couple of days ago on the of this month, he had repeat thyroid function tests. TSH and free T4 remain unchanged in adequately suppressed. His thyroglobulin, however, has increased from 0.9 in April of last year to 17 currently. He also had a neck ultrasound that shows a reasonably large, 1.9-cm, cystic lymph node on theright lateral neck level IV. A small nodule in the thyroid bed on the left is hypervascular and suspicious for recurrent disease. He does have extensive bilateral cervical lymphadenopathy that is in all likelihood related to his chronic CLL for which he is followed by our colleagues in Hematology. He is expected to have a PET-CT in April for followup of his B-cell non-Hodgkin's lymphoma. ASSESSMENT / PLAN Overall, Mr. Khanna feels reasonably well. We reviewed the results of both his labs as well as the findings on the ultrasound. I discussed with him that, at this time, I would like to proceed with biopsies of both the right lateral neck lymph node as well as the left central neck nodule as both of these appear quite suspicious. Although he has multiple other enlarged lymph nodes, the appearance of those is more likely consistent with his longstanding B-cell lymphoma. Also, because of the level of thyroglobulin increase, I would like to get a chest CT to ensure that there is no evidence of metastatic disease in the chest area. He will come back tomorrow to get these things done, and I will see him f caitlin-to-face later in the week for evaluation of those results and any subsequent steps. He is in agreement with this plan. He anticipates being at [place] for the rest of the week as his is also coming for some appointments. All questions answered. He is in agreement with the plan as discussed. FINAL DIAGNOSES: #1 Metastatic papillary thyroid cancer, status post total thyroidectomy and subsequent modified leftneck dissection #2 Suspicious right lateral neck and left central neck lymphadenopathy #3 Adequate thyroid hormone suppressive therapy #4 Low-grade B-cell lymphoma followed by Hematology Total time: 17 minutes Loni Wu M.D. CT CT Job ID: [id number] documented in this encounter Plan of Treatment Upcoming Encounters Date Type Specialty Care Team Description 10/11/2022 Appointment Laboratory Medicine Natasha Mullins APRN, Radha.N.PCarmine, M.S.N. [address] [place] [phone] (Wo rk) 10/11/2022 Ancillary Procedure Cardiovascular Disease Natasha Cramer APRN, Radha.N.PCarmine, M.S.N. [address] [place] [phone] (Wo rk) 10/11/2022 Appointment Cardiovascular Disease Natasha Mullins APRN, Radha.N.Jalen, M.S.N. [address] [place] [phone] (Joanie rk) 10/12/2022 Office Visit Cardiovascular Disease Natasha Mullins APRN, C.N.P., M.S.N. [address] [place] [phone] (Joanie rk) Scheduled Referrals Name Type Priority Associated Order Schedule Diagnoses Endocrinology office Outpatient Referral Routine Expected: visit (clinic) 03/13/2021 (Approximate), Expires: 03/11/2024 documented as of this encounter Results US Superficial Tissue Fine Needle Aspiration (03/12/2021 2:50 PM CDT) Anatomical Region Laterality Modality Body, Ultrasound RST LOS, Musculoskeletal ARZ LOS, Ultrasoun d N/A Ultrasound ARZ LOS, Ultrasound FLA LOS, Procedure FLA LOS, [place] jos FLA LOS, Abdominal FLA LOS, Procedural Specimen (Source) Anatomical Collection Method Collection Time Re ceived Time Location / / Volume Laterality 03/12/2021 2:50 PM CDT Impressions 03/12/2021 2:52 PM CDT Ultrasound-guided neck FNA bilaterally . NR Narrative 03/12/2021 2:52 PM CDT EXAM: US SUPERFICIAL TISSUE FINE NEEDLE ASPIRATION PRE-PROCEDURE: Patient seen and evaluate d. Allergies, pertinent medications, and history reviewed. Discussed risks, benef its, alternatives for procedure, and obtained informed consent. Patient under stands information and questions answered. Immediately prior to starting the procedure, in the presence of the assisting personnel, procedural pause wa s conducted to verify correct patient identity and verification of procedure t o be performed, and as applicable, correct side and site, correct patient p osition, availability of implants, special equipment, or special requiremen ts, and all image and specimen identification data. The roles and respo nsibilities of care team members, residents, and fellows were discussed. TECHNIQUE: Sterile. 1% lidocaine for loc al anesthesia. Location: Left thyroid bed nodule and th e partially cystic right level four lymph node Needle size: 25-gauge Number of passes: 6 passes at each of th e two sites Complication: No immediate Blood loss: 3 cc PATIENT INSTRUCTIONS: Patient may be dis missed from the radiology department when dismissal criteria met. POST-PROCEDURE DIAGNOSIS: FNA of left th yroid bed nodule and right level 4 partially cystic lymph node. Specimens s ent for cytology and reflux thyroglobulin testing if needed Procedure Note Cornell Singer M.D. - 03/12/2021Formatti ng of this note might be different from the original. EXAM: US SUPERFICIAL TISSUE FINE NEEDLE ASPIRATION PRE-PROCEDURE: Patient seen and evaluate d. Allergies, pertinent medications, and history reviewed. Discussed risks, benef its, alternatives for procedure, and obtained informed consent. Patient under stands information and questions answered. Immediately prior to starting the procedure, in the presence of the assisting personnel, procedural pause wa s conducted to verify correct patient identity and verification of procedure t o be performed, and as applicable, correct side and site, correct patient p osition, availability of implants, special equipment, or special requiremen ts, and all image and specimen identification data. The roles and respo nsibilities of care team members, residents, and fellows were discussed. TECHNIQUE: Sterile. 1% lidocaine for loc al anesthesia. Location: Left thyroid bed nodule and th e partially cystic right level four lymph node Needle size: 25-gauge Number of passes: 6 passes at each of th e two sites Complication: No immediate Blood loss: 3 cc PATIENT INSTRUCTIONS: Patient may be dis missed from the radiology department when dismissal criteria met. POST-PROCEDURE DIAGNOSIS: FNA of left th yroid bed nodule and right level 4 partially cystic lymph node. Specimens s ent for cytology and reflux thyroglobulin testing if needed IMPRESSION: Ultrasound-guided neck FNA bilaterally . NR Loni Wu M.D. IMG US PROCEDURES documented in this encounter Visit Diagnoses Diagnosis Malignant Neoplasm Of Thyroid (HCC) - Pr imary Malignant Neoplasm Of Thyroid (HCC) documented in this encounter Care Teams Betting Agency Manager Relationship Specialty Start Date End Date Elsewhere, Pcp PCP - General Family Medicine 10/25/18 documented as of this encounter
--- OUTSIDE RECORDS SUMMARY | 2022-08-27 11:24 | XMS_ITS | Encounter Summary ---
:1945 Author Organization [facility] Address [address] [place] [address] Care Team Providers Name Role Phone Elsewhere, Pcp Primary Care Provider Unavailable Encounter Details Date Type Department Care Team Description 04/30/2021 Clinical Communication Department of [facility] in Da Carballo M.D. [place], [place] [address] [place] [phone] Social History Tobacco Use Types Packs/Day [...] or relatives? How often do you attend yarsani or More than 4 times per year 10/15/2019 alevism services? Do you belong to any clubs or Yes 10/15/2019 organizations such as yarsani groups, unions, fraternal or athletic groups, or [...] this encounter Miscellaneous Notes Telephone Encounter - Lynsey Masters - 04/30/2021 10:05 AM CDT JLK surg 05/27 JENNIFER has triaged and determined pt does not need to see them. I have cancelled the order. Rm documented in this encounter Plan of Treatment Upcoming Encounters Date Type Specialty Care Team Description 10/11/2022 Appointment Laboratory Medicine Natasha Mullins APRN, Radha.N.P., M.S.N. [address] [place] [address] [phone] (Wo rk) 10/11/2022 Ancillary Procedure Cardiovascular Disease Natasha Cramer APRN, Radha.N.P., M.S.N. [address] [place] [address] [phone] (Wo rk) 10/11/2022 Appointment Cardiovascular Disease Natasha Mullins APRN, Radha.N.P., M.S.N. [address] [place] [address] [phone] (Wo rk) 10/12/2022 Office Visit Cardiovascular Disease Natasha Mullins APRN, Radha.N.P., M.S.N. [address] [place] [phone] (Wo rk) documented as of this encounter Visit Diagnoses Not on filedocumented in this encounter Care Teams Director Software Relationship Specialty Start Date End Date Elsewhere, Pcp PCP - General Family Medicine 10/25/18 documented as of this encounter
--- OUTSIDE RECORDS SUMMARY | 2022-08-27 11:24 | XMS_ITS | Encounter Summary ---
:1945 Author Organization [facility] Address [address] [place] [address] Care Team Providers Name Role Phone Elsewhere, Pcp Primary Care Provider Unavailable Reason for Referral MRI/CAT/PET Scan (Routine) - Closed Specialty Diagnoses / Procedures Referred By Contact Refer red To Contact Radiology Diagnoses Malignant Neoplasm Of Thyroid (HCC) Da Carr M.D. [facility] Procedures CT Neck Soft Tissue with IV Contrast CT Neck Soft Tissue without and with IV Contrast 200 [place] [address] Referral ID Status Reason Start Date Expiration Date Visits Requ ested Visits Authorized [id number] Closed 04/21/2021 04/21/2022 1 1 Reason for Visit MRI/CAT/PET Scan (Routine) - Closed Specialty Diagnoses / Procedures Referred By Contact Refer red To Contact Radiology Diagnoses Malignant Neoplasm Of Thyroid (HCC) Da Carr M.D. [facility] Procedures CT Neck Soft Tissue with IV Contrast CT Neck Soft Tissue without and with IV Contrast 200 [place] [address] Referral ID Status Reason Start Date Expiration Date Visits Requ ested Visits Authorized [id number] Closed 04/21/2021 04/21/2022 1 1 Encounter Details Date Type Department Care Team Description 04/22/2021 Hospital Encounter Department of Viviana Carr Neoplasm Of Radiology, Jethro Carballo M.D. Thyroid (HC C) Building, in [place], [place] [address] [place] [phone] Social History Tobacco Use Types Packs/Day Years [...] or relatives? How often do you attend yazidi or More than 4 times per year 10/15/2019 denominational services? Do you belong to any clubs or Yes 10/15/2019 organizations such as yazidi groups, unions, fraternal or athletic groups, or [...] End Date albuterol (PROVENTIL Inhale 1-2 puffs 0 8 HFA,VENTOLIN HFA) 90 as needed for mcg/actuation inhaler wheezing or shortness of breath. aspirin [address] tablet Take 81 mg by 0 5 mouth daily. Take for life. cetirizine (ZyrTEC) 10 mg Take 10 mg by 0 015 tablet mouth daily. fluticasone Inhale 1 puff 0 08/25/2015 propion-salmeteroL 250-50 daily as needed. mcg/dose diskus inhaler montelukast (SINGULAIR) 10 Take 1 tablet by 0 10/2015 mg tablet mouth at bedtime. multivitamin tablet Take 1 tablet by 0 mouth daily. tamsulosin (FLOMAX) 0.4 mg Take 0.4 mg by 0 12/12 24 hr capsule mouth daily. acetaminophen (Tylenol Take 500 mg by 0 10/16/2021 Extra Strength) 500 mg mouth every 6 tablet (six) hours as needed for pain. ALBUTEROL SULFATE INHL Inhale. 0 bisacodyL (DULCOLAX) 5 mg Take by mouth. 0 200905/27/2021 EC tablet calcium carbonate (OS-ARLEEN) Chew 1 tablet 2 0 08/1405/27/2021 1,250 mg (500 mg calcium) (two) times a day chewable tablet as needed. Heartburn. carvediloL (COREG) 25 mg Take 1 tablet (25 180 tablet 3 12/201910/16/2021 tablet mg total) by mouth 2 (two) times a day. clopidogreL (PLAVIX) 75 mg Take 1 tablet (75 90 tablet 3 10/16/2021 tablet mg total) by mouth daily. diphenhydrAMINE (BENADRYL) Take 1 capsule 1 capsule 0 04/2105/27/2021 50 mg capsule (50 mg total) by mouth once for 1 dose. 1 hour prior to exam. docusate sodium (COLACE) 50 Take 1 capsule 60 capsule 0 /03/202105/27/2021 mg capsule (50 mg total) by mouth 2 (two) times a day. fluconazole (Diflucan) 100 Take by mouth. 0 05/27/2021 mg tablet fluticasone propionate Inhale. 0 (FLOVENT HFA INHL) ibuprofen (ADVIL,MOTRIN) Take 3 tablets 0 021 10/16/2021 200 mg tablet (600 mg total) by mouth every 6 (six) hours as needed for pain (Purchase over the counter. Alternate with acetaminophen.). levothyroxine (SYNTHROID, Take 1 tablet 90 tablet 3 020 08/17/2021 LEVOTHROID) 200 mcg tablet (200 mcg total) by mouth daily. lisinopriL Take 1 tablet (40 90 tablet 3 10/15/2020 021 (PRINIVIL,ZESTRIL) 40 mg mg total) by tablet mouth daily. methylPREDNISolone (MEDROL) Take 1 tablet (32 2 tablet 0 0 04/21/2021 05/27/2021 32 mg tablet mg) by mouth 12 hours prior to exam then take 1 tablet (32 mg) 2 hours prior to exam. methylPREDNISolone (MEDROL) 0 04/21/20 21 05/27/2021 4 mg tablet nitroglycerin (NITROSTAT) Place 1 tablet 25 tablet 3 201910/16/2021 0.4 mg SL tablet (0.4 mg total) under the tongue as needed for chest pain. May repeat every 5 x 2. If no relief with 3rd tab call 911. rosuvastatin (Crestor) 40 Take 1 tablet (40 30 tablet 11 12/201910/16/2021 mg tablet mg total) by mouth daily. traMADoL (ULTRAM) 50 mg Take 1 tablet (50 12 tablet 0 01/1605/27/2021 tabletIndications: Acute mg total) by Pain mouth every 6 (six) hours as needed for pain (Pain not relieved by acetaminophen.) Indications: acute pain. documented as of this encounter Nursing Notes Naveen Mckinnon M.S.N., R.N. - 04/22/2021 5:50 PM CDT Pt premedicated for CT allergy, pt doesn't need to be monitored he stated he was okay to leave aftercoan as long as he felt okay documented in this encounter Plan of Treatment Upcoming Encounters Date Type Specialty Care Team Description 10/11/2022 Appointment Laboratory Medicine Natasha Mullins APRN, C.N.P., M.S.N. [address] [place] [address] [phone] (Joanie velázquez) 10/11/2022 Ancillary Procedure Cardiovascular Disease Natasha Cramer APRN, C.N.P., M.S.N. [address] [place] [address] [phone] (Joanie velázquez) 10/11/2022 Appointment Cardiovascular Disease Natasha Mullins APRN, C.N.P., M.S.N. [address] [place] [address] [phone] (Joanie velázquez) 10/12/2022 Office Visit Cardiovascular Disease Natasha Mullins APRN, C.N.P., M.S.N. [address] [place] [address] [phone] (Joanie velázquez) documented as of this encounter Procedures Procedure Name Priority Date/Time Associated Comments Diagnosis CT NECK SOFT RAD - Routine 04/22/2021 6:33 Malignant Results for this TISSUE WITH IV (most inpatients PM CDT Neoplasm Of procedure are in CONTRAST and all Thyroid (HCC) the results outpatients) section. documented in this encounter Results CT Neck Soft Tissue [...] nodes. 4. New pansinusitis as described. Da ALVARADO CT PROCEDURES documented in this encounter Visit Diagnoses Diagnosis Malignant Neoplasm Of Thyroid (HCC) documented in this encounter Administered Medications Inactive Administered Medications - up to 3 most recent administrations Medication Order MAR Action Action Date Dose Rate Site iohexoL 300 mg iodine/mL solution Given 04/22/2021 6:22 PM CDT 1 20 mL 1-200 mL (OMNIPAQUE) 1-200 mL, intravenous, Once in imaging, contrast, Starting on Tue04/22/21 at 1750, For 1 dose, Imaging Protocol Orders, Dose per Radiant Medication Guidelines sodium chloride (PF) 0.9 % injection 1-1 00 mL Given 04/22/2021 6:22 PM CDT 35 mL 1-100 mL, intravenous, Once, On Tue04/22/21 at 1800, For 1 dose, Imaging Protocol Orders documented in this encounter Care Teams Brand Representative Relationship Specialty Start Date End Date Elsewhere, Pcp PCP - General Family Medicine 10/25/18 documented as of this encounter
--- OUTSIDE RECORDS SUMMARY | 2022-08-27 11:24 | XMS_ITS | Encounter Summary ---
:1945 Author Organization [facility] Address [address] [place] [address] Care Team Providers Name Role Phone Elsewhere, Pcp Primary Care Provider Unavailable Reason for Referral Outpatient (Routine) - Closed Specialty Diagnoses / Procedures Referred By Contact Refer red To Contact Endocrinology Loni Wu M .D. [address] [phone] Referral ID Status Reason Start Date Expiration Date Visits Requ ested Visits Authorized [id number] Closed 03/13/2021 03/13/2022 1 1 Scheduling Instructions Return after PET. Discussed with him. Reason for Visit Outpatient (Routine) - Closed Specialty Diagnoses / Procedures Referred By Contact Refer trudi To Contact Endocrinology Loni Wu M .D. [address] [phone] Referral ID Status Reason Start Date Expiration Date Visits Requ ested Visits Authorized [id number] Closed 03/11/2021 03/11/2022 1 1 Encounter Details Date Type Department Care Team Description 03/13/2021 Office Visit Division of Loni Wu Malignant Neopl asm Of Endocrinology in [place] Thyroid Papillary [place], [place] 200 [facility] (HCC) (Primary Dx) [address] [place] [phone] Social History Tobacco Use Types Packs/Day Years [...] or relatives? How often do you attend yazdanism or More than 4 times per year 10/15/2019 yazidi services? Do you belong to any clubs or Yes 10/15/2019 organizations such as yazdanism groups, unions, fraternal or athletic groups, or [...] Sign Reading Time Taken Comments Blood Pressure 162/97 03/13/2021 11:07 AM CDT Pulse 67 03/13/2021 11:07 AM CDT Temperature - - Respiratory Rate - - Oxygen Saturation - - Inhaled Oxygen Concentration - - Weight 73.4 kg (161 lb 13.1 oz) 03/13/2021 11:07 AM CDT Height 176 cm (5' 9.29) 03/13/2021 11:07 AM CDT Body Mass Index 23.7 03/13/2021 11:07 AM CDT documented in this encounter Progress Notes Loni Wu M.D. 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 HISTORY OF PRESENT ILLNESS I visited with Mr. Khanna about a week ago for followup of thyroid cancer. At that time, we did a phone visit in view of some abnormal test results to determine followup. Please refer to my note from then. Today he comes back after having undergone ultrasound-guided FNA of a highly suspicious lymph node on the right lateral neck, level IV, as well as a small nodule in the anterior left neck in the site of the thyroid bed. The ultrasound showed also a few other small lymph nodes, some on the low bilateral neck and many enlarged lymph nodes bilaterally level II. 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 The small nodule in the left anterior bed was also biopsied and again consistent with PTC. There is a subcentimeter lymph node on the left lateral neck that, although suspicious, was not biopsied at this time because of its very small size. Overall, Mr. Khanna feels reasonably well. He does not have any thyroid specific symptoms. He has not particularly noticed any lumps in his neck. OBJECTIVE DIAGNOSTICS His labs from a few days ago, on the 10 of March, showed a TSH that is very stable at 0.05, a freeT4 of 1.9, and a thyroglobulin that has increased to 17 from a previous value of 0.9 in April of lastyear. As a result of that elevated thyroglobulin, I also requested a CT chest without contrast for assessment for potential pulmonary metastases. This study shows a few bilateral pulmonary micronodules, some of which were not readily apparent on the prior PET-CT but certainly could be due to differences in technique, although they remain indeterminate. PHYSICAL EXAMINATION Vital Signs: Height today is 176, weight is 73.4 kg. Pulse 67. Blood pressure 162/97. Eyes: Exam negative. Neck: Exam shows a healed thyroidectomy scar extending to the left lateral neck. There are some bruises in the low neck from recent biopsies in the last couple of days. The lymph node on the right lateral neck is palpable but somewhat tender. No other palpable neck adenopathy. Lungs: Clear to auscultation. Heart: Regular, without murmurs. ASSESSMENT / PLAN #1 Metastatic papillary thyroid cancer, recurrent, in the neck lymph nodes I spent some time going over the results with Mr. Khanna. The difficulty in this particular situation lies in the fact that he has more than one condition going on at the same time. He has had long-standing lymphadenopathy in the neck related to his lymphoma. Clearly, the lymph nodes in the low neck are very likely related to PTC, but I am not certain that is the case for the prominent lymph nodes inthe upper neck. I spent some time also talking to his chainstitch zipper setter. He was expected to come back forfollowup with a repeat PET scan in [place] of this year as his previous PET scan had not shown evidenceof active lymphoma. After some discussion, we have planned to repeat this PET scan at an earlier time, probably next week, to see if we can find any evidence of uptake in the lymph node and try to figure out if this is related to lymphoma or metastatic thyroid cancer, as it would clearly have implications in the extent of surgery. Once we have sorted this out, I will plan to see him back and arrange for consultation with Dr. Carr. Regarding the small nodule in the left lateral neck, this could be addressed at a later time with ethanol ablation and potentially the one in the central neck as well. Quite a bit of time in discussion and plan. Patient expressed understanding. I will arrange a sub sequent followup in the next couple weeks. Loni Wu M.D. CT CT Job ID: [id number]/clp documented in this encounter Plan of Treatment Upcoming Encounters Date Type Specialty Care Team Description 10/11/2022 Appointment Laboratory Medicine Natasha Mullins APRN, Radha.N.[place]., M.S.N. [address] [place] [phone] (Joanie velázquez) 10/11/2022 Ancillary Procedure Cardiovascular Disease Natasha Cramer APRN, Radha.N.Franklin., M.S.N. [address] [place] [phone] (Joanie velázquez) 10/11/2022 Appointment Cardiovascular Disease Natasha Mullins APRN, Radha.N.P., M.S.N. [address] [place] [phone] (Joanie rk) 10/12/2022 Office Visit Cardiovascular Disease Natasha Mullins APRN, C.N.P., M.S.N. [address] [place] [address] (Wo rk) Scheduled Referrals Name Type Priority Associated Order Schedule Diagnoses Endocrinology office Outpatient Referral Routine Expected: visit (clinic) 03/13/2021 (Approximate), Expires: 03/13/2024 documented as of this encounter Visit Diagnoses Diagnosis Malignant Neoplasm Of Thyroid Papillary (HCC) - Primary documented in this encounter Care Teams Grave Cleaner Relationship Specialty Start Date End Date Elsewhere, Pcp PCP - General Family Medicine 10/25/18 documented as of this encounter
--- OUTSIDE RECORDS SUMMARY | 2022-08-27 11:24 | XMS_ITS | Encounter Summary ---
:1945 Author Organization [facility] Address [address] [place] [address] Care Team Providers Name Role Phone Elsewhere, Pcp Primary Care Provider Unavailable Reason for Visit Reason Comments clarify order Encounter Details Date Type Department Care Team Description 03/27/2021 Clinical Communication Division of Loni Wu order Endocrinology in [place], [place] [address] [facility] [address] [place] [phone] Social History Tobacco Use Types Packs/Day Years [...] More than 4 times per year 10/15/2019 anabaptist services? Do you belong to any clubs [...] this encounter Miscellaneous Notes Telephone Encounter - Johanna Hernandez - 03/27/2021 10:[address] Wu, You had order a Endo office visit but the notes states with Dr. Dionicio Muniz in Hem/onc after pet scan. He had pet scan done on 03/17/21 and was seen by ALINA Hogue as Dr. Greenberg was not available. Do you need a return with Mr. Khanna? Thank you Johanna documented in this encounter Plan of Treatment Upcoming Encounters Date Type Specialty Care Team Description 10/11/2022 Appointment Laboratory Medicine Natasha Mullins APRN, C.N.P., M.S.N. [address] [place] [phone] (Joanie rk) 10/11/2022 Ancillary Procedure Cardiovascular Disease Natasha Cramer APRN, C.N.P., M.S.N. [address] [place] [phone] (Joanie rk) 10/11/2022 Appointment Cardiovascular Disease Natasha Mullins APRN, C.N.P., M.S.N. [address] [place] [phone] (Joanie rk) 10/12/2022 Office Visit Cardiovascular Disease Natasha Mullins APRN, C.N.P., M.S.N. [address] [place] [phone] (Joanie rk) documented as of this encounter Visit Diagnoses Not on filedocumented in this encounter Care Teams Firer Boiler Relationship Specialty Start Date End Date Elsewhere, Pcp PCP - General Family Medicine 10/25/18 documented as of this encounter
--- OUTSIDE RECORDS SUMMARY | 2022-08-27 11:24 | XMS_ITS | Encounter Summary ---
:1945 Author Organization [facility] Address [address] [place] [address] Care Team Providers Name Role Phone Elsewhere, Pcp Primary Care Provider Unavailable Encounter Details Date Type Department Care Team Description 04/22/2021 Hospital Encounter Department of Viviana Carr Neoplasm Of Laboratory Medicine Da Carballo M.D. Thyroid (HCC) and Pathology, [facility] in [place], [place] [address] [place] [address] Social History Tobacco Use Types Packs/Day Years [...] 50 Take 1 capsule 60 capsule 0 03/202105/27/2021 mg capsule (50 mg total) by mouth 2 (two) times a day. fluconazole (Diflucan) 100 Take by mouth. 0 05/27/2021 mg tablet fluticasone propionate Inhale. 0 (FLOVENT HFA INHL) ibuprofen (ADVIL,MOTRIN) Take 3 tablets 0 01/16/ 021 10/16/2021 200 mg tablet (600 mg [...] Medicine Natasha Mullins APRN, C.N.P., M.S.N. [address] [place] [address] [phone] (Joanie velázquez) 10/11/2022 Ancillary Procedure Cardiovascular Disease Natasha Cramer APRN, C.N.P., M.S.N. [address] [place] [phone] (Joanie velázquez) 10/11/2022 Appointment Cardiovascular Disease Natasha Mullins APRN, C.NLibrado., M.S.N. [address] [place] [address] [phone] (Wo rk) 10/12/2022 Office Visit Cardiovascular Disease Natasha Mullins APRN, C.NRenetta, M.S.N. [address] [place] [address] [phone] (Wo rk) documented as of this encounter Procedures Procedure Name Priority Date/Time Associated Comments Diagnosis CREATININE WITH Routine 04/22/2021 4:01 PM Malignant Neoplasm Results for this EGFR, S/P CDT Of Thyroid (HCC) procedure a re in the results section. documented in this encounter Results Creatinine with Estimated GFR (04/22/2021 4:01 PM CDT) P athologist Signature Creatinine 0.92 0.74 - 04/22/2021 DTL 1.35 mg/dL 4:53 PM CDT eGFR-Non 80 >=60 04/22/2021 DTL Black/ mL/min/BSA 4:53 PM CDT Finnish Comment: ----ADDITIONAL INFORMATION---- Estimated GFR calculated using the 2009 CKD_EPI creatinine equation. eGFR-Black/ >90 >=60 mL/min/BSA 2020 4:53 PM CDT DTL Comment: ----ADDITIONAL INFORMATION---- Estimated GFR calculated using the 2009 CKD_EPI creatinine equation. Specimen Anatomical Collection Method Collection Time Receive d Time (Source) Location / / Volume Laterality Blood (Blood, 04/22/2021 4:01 PM 04/22/20 21 4:21 Venous) CDT PM CDT Da Carr M.D. LAB BLOOD ADD-ON Performing Organization Address City/State/ZIP Code Phon e Number [facility] - [address] [place], [place] [address] [facility] [place] [address] [facility] 200 [facility] documented in this encounter Visit Diagnoses Diagnosis Malignant Neoplasm Of Thyroid (HCC) documented in this encounter Care Teams Naval Aircrewman Helicopter Relationship Specialty Start Date End Date Elsewhere, Pcp PCP - General Family Medicine 10/25/18 documented as of this encounter
--- OUTSIDE RECORDS SUMMARY | 2022-08-27 11:24 | XMS_ITS | Encounter Summary ---
:1945 Author Organization [facility] Address [address] [place] [address] Care Team Providers Name Role Phone Elsewhere, Pcp Primary Care Provider Unavailable Reason for Visit Reason Comments Return Visit Outpatient (Routine) - Closed Specialty Diagnoses / Procedures Referred By Contact Refer red To Contact Endocrinology oLni Wu M .D. [facility] [address] [place] [phone] Referral ID Status Reason Start Date Expiration Date Visits Requ ested Visits Authorized [id number] Closed 03/13/2021 03/13/2022 1 1 Encounter Details Date Type Department Care Team Description 04/22/2021 Office Visit Division of Loni Wu Lymphadenopathy Cervical Endocrinology in [place] (Primary Dx) [place], [place] [address] [place] [address] [place] [phone] Social History Tobacco Use Types Packs/Day Years [...] or relatives? How often do you attend taoist or More than 4 times per year 10/15/2019 baptist services? Do you belong to any clubs or Yes 10/15/2019 organizations such as taoist groups, unions, fraHiphunters or athletic groups, or school groups? How [...] Sign Reading Time Taken Comments Blood Pressure 143/93 04/22/2021 4:12 PM CDT Pulse 86 04/22/2021 4:12 PM CDT Temperature - - Respiratory Rate - - Oxygen Saturation - - Inhaled Oxygen Concentration - - Weight 77.1 kg (169 lb 15.6 oz) 04/22/2021 4:12 PM CDT Height 175.8 cm (5' 9.21) 04/22/2021 4:12 PM CDT Body Mass Index 24.95 04/22/2021 4:12 PM CDT documented in this encounter Progress Notes Loni Wu M.D. - 04/22/2021 4:30 PM CDT SUBJECTIVE CHIEF COMPLAINT/REASON FOR VISIT The patient is here for a follow up of thyroid cancer. HISTORY OF PRESENT ILLNESS Mr. Khanna has recently seen Dr. Carr for assessment for possible surgery related to large metastatic lymph nodes on the right lateral neck. The plan is for him to get a CT of the neck today to better plan for the surgery which will likely be sometime in May as he has some family issues to take care of prior to that date. I think it is safe to defer his surgery until then. He will find a mutually convenient time for him and Dr. Carr to proceed. OBJECTIVE DIAGNOSTICS His last CT chest also showed some tiny pulmonary nodules that are of uncertain significance at thistime. ASSESSMENT / PLAN The plan I discussed with him will be for him to have surgery and plan a return visit with an ultrasound of the neck and a CT of the chest approximately 4 months after the surgery. I will review the final path of his surgery when available and order followup at that point. I have asked Mr. Khanna to let me know when he is having surgery so we can arrange the appropriate followup as needed. FINAL DIAGNOSIS: #1 Metastatic papillary thyroid cancer to right lateral neck Loni Wu M.D. CT CT Job ID: [id number]/[facility] documented in this encounter Plan of Treatment Upcoming Encounters Date Type Specialty Care Team Description 10/11/2022 Appointment Laboratory Medicine Natasha Mullins APRN, Radha.N.P., M.S.N. [address] [place] [phone] (Wo rk) 10/11/2022 Ancillary Procedure Cardiovascular Disease Natasha Cramer APRN, Radha.N.P., M.S.N. [address] [place] [phone] (Wo rk) 10/11/2022 Appointment Cardiovascular Disease Natasha Mullins APRN, Radha.N.P., M.S.N. [address] [place] [phone] (Wo rk) 10/12/2022 Office Visit Cardiovascular Disease Natasha Mullins APRN, C.N.P., M.S.N. [address] [place] [phone] (Wo rk) documented as of this encounter Visit Diagnoses Diagnosis Lymphadenopathy Cervical - Primary documented in this encounter Care Teams System Planning Engineer Relationship Specialty Start Date End Date Elsewhere, Pcp PCP - General Family Medicine 10/25/18 documented as of this encounter
--- OUTSIDE RECORDS SUMMARY | 2022-08-27 11:24 | XMS_ITS | Encounter Summary ---
:1945 Author Organization [facility] Address [address] [place] [address] Care Team Providers Name Role Phone Elsewhere, Pcp Primary Care Provider Unavailable Reason for Referral Outpatient (Routine) - Closed Specialty Diagnoses / Procedures Referred By Contact Refer red To Contact Diagnoses Malignant Neoplasm Of Thyroid (HCC) Loni Wu M.D. [facility] Procedures US Superficial Tissue Fine Needle Aspiration [address] [place] [address] Referral ID Status Reason Start Date Expiration Date Visits Requ ested Visits Authorized [id number] Closed 03/11/2021 03/11/2022 1 1 Reason for Visit Outpatient (Routine) - Closed Specialty Diagnoses / Procedures Referred By Contact Refer red To Contact Diagnoses Malignant Neoplasm Of Thyroid (HCC) Loni Wu M.D. [facility] Procedures US Superficial Tissue Fine Needle Aspiration [address] [place] [address] Referral ID Status Reason Start Date Expiration Date Visits Requ ested Visits Authorized [id number] Closed 03/11/2021 03/11/2022 1 1 Encounter Details Date Type Department Care Team Description 03/12/2021 Hospital Encounter Department of Loni Wu M.D. [address] [place] [phone] Malignant Neoplasm Radiology, Cornell Albrecht M.D. 200 [place] [phone] Of Thyroid (HCC) Building, in [place], [place] 200 [place] [phone] Social History Tobacco Use Types Packs/Day Years [...] or relatives? How often do you attend congregation or More than 4 times per year 10/15/2019 holiness services? Do you belong to any clubs or Yes 10/15/2019 organizations such as congregation groups, unions, fraternal or athletic groups, or [...] tablet 3 10/15/2020 12/0 01/2021 (PRINIVIL,ZESTRIL) 40 mg total) by mouth tablet [...] Medicine Natasha Mullins APRN, C.N.P., M.S.N. [address] [place] [phone] (Wo rk) 10/11/2022 Ancillary Procedure Cardiovascular Disease Natasha Cramer APRN, C.N.P., M.S.N. [address] [place] [phone] (Wo rk) 10/11/2022 Appointment Cardiovascular Disease Natasha Mullins APRN, C.N.P., M.S.N. [address] [place] [phone] (Wo rk) 10/12/2022 Office Visit Cardiovascular Disease Natasha Mullins APRN, C.N.P., M.S.N. [address] [place] [phone] (Wo rk) documented as of this encounter Procedures Procedure Name Priority Date/Time Associated Comments Diagnosis US SUPERFICIAL RAD - Routine 03/12/2021 2:50 Malignant Results f or TISSUE FINE NEEDLE (most inpatients PM CDT Neoplasm Of this procedure ASPIRATION and all Thyroid (HCC) are in the outpatients) results section. CYTOLOGY FINE-NEEDLE Routine 03/12/2021 2:11 Malignant Resu lts for ASPIRATION WITH PM CDT Neoplasm Of this procedu re THYROGLOBULIN (TG) Thyroid (HCC) are in t he REFLEX results section. CYTOLOGY FINE-NEEDLE Timed 03/12/2021 2:05 Resu lts for ASPIRATION WITH PM CDT this procedu re THYROGLOBULIN (TG) are in th e REFLEX results section. documented in this encounter Results US Superficial Tissue Fine [...] NR Loni Wu M.D. IMG US PROCEDURES (ABNORMAL) Reflex, Thyroglobin (Tg) Cytology Fine-Needle Aspiration (03/12/2021 2:11 PM CDT) Component Value Ref Test Analysis Performed At [facility] Range Method Time Signature 03/12/2021 DTL (A) 4:17 PM CDT Source A. Thyroid 03/12/2021 DTL Bed, Left 4:17 PM CDT nodule, fine needle aspiration (A) Report Kosta Bennett M.D. [id number] 03/12/2021 D TL electronically 4:17 PM CDT signed by I verify that I have examined all relevant slides/materials for the specimen(s) and rendered or confirmed the diagnosis. (A) Gross Description Received 12 03/12/2021 DTL alcohol-fixed 4:17 PM CDT smears. (A) Interpretation A. Thyroid Bed, Left nodule, fine needle aspiration 03/12/2021 DTL (smears): Positive for malignancy. ?? Papillary thyroid 4:17 PM CDT carcinoma. (A) Specimen (Source) Anatomical Collection Method Collection Time Re ceived Time Location / / Volume Laterality Tissue (Neck, 03/12/2021 2:11 PM Left) CDT Narrative This result has an attachment that is no t available. Loni Wu M.D. LAB SURG PATH ORDERABLES Performing Organization Address City/State/ZIP Code Phon e Number [facility] - [address] [place], [place] [address] [facility] [place] [address] Laboratories-[facility] [address] [facility] (ABNORMAL) Reflex, Thyroglobin (Tg) Cytology Fine-Needle Aspiration (03/12/2021 2:05 PM CDT) Component Value Ref Test Analysis Performed At [facility] gist Range Method Time Signature 03/12/2021 DTL (A) 4:26 PM CDT Source A. Lymph 03/12/2021 DTL node, Right 4:26 PM CDT neck, fine needle aspiration (A) Report Kosta Bennett M.D. [id number] 03/12/2021 D TL electronically 4:26 PM CDT signed by I verify that I have examined all relevant slides/materials for the specimen(s) and rendered or confirmed the diagnosis. (A) Gross Description Received 12 03/12/2021 DTL alcohol-fixed 4:26 PM CDT smears. (A) Interpretation A. Lymph node, Right neck, fine needle aspiration (s anmol): 03/12/2021 DTL Positive for malignancy. ?? 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 (A) Specimen Anatomical Collection Method Collection Time Receive d Time (Source) Location / / Volume Laterality Varies (Lymph 03/12/2021 2:05 PM 03/12/20 21 3:27 Node) CDT PM CDT Narrative This result has an attachment that is no t available. Loni Wu M.D. LAB SURG PATH ORDERABLES Performing Organization Address City/State/ZIP Code Phon e Number [facility] - [address] [place], [place] [address] [place], [place] [id number] [place] [address] 200 [facility] documented in this encounter Visit Diagnoses Diagnosis Malignant Neoplasm Of Thyroid (HCC) documented in this encounter Administered Medications Inactive Administered Medications - up to 3 most recent administrations Medication Order MAR Action Action Date Dose Rate Site lidocaine 10 mg/mL (1 %) injection Given 03/12/2021 2:33 PM CDT 3 mL (XYLOCAINE) Code/trauma/sedation medication, Starting on Samantha 03/12/21 at 1433 documented in this encounter Active and Recently Administered Medications Times are shown in CDT. PRN Medication Order 03/10/2021 03/11/2021 03/12/2021 lidocaine 10 mg/mL (1 %) injection (XYLOCAINE) (CANCELED) 1433 (Given - Provider: Cornell Singer M.D. - Comment: bilateral neck) Code/trauma/sedation medication, Starting on Samantha 03/12/21 at 1433 documented in this encounter Care Teams Engraver Rubber Relationship Specialty Start Date End Date Elsewhere, Pcp PCP - General Family Medicine 10/25/18 documented as of this encounter
--- OUTSIDE RECORDS SUMMARY | 2022-08-27 11:24 | XMS_ITS | Encounter Summary ---
:1945 Author Organization [facility] Address [address] [place] [address] Care Team Providers Name Role Phone Elsewhere, Pcp Primary Care Provider Unavailable Reason for Referral Outpatient (Routine) - Closed Specialty Diagnoses / Procedures Referred By Contact Refer red To Contact Hematology Oncology Margy Mcin[facility]re [facility], C.N.PCarmine, D.N.P. [address] [place] [phone] Referral ID Status Reason Start Date Expiration Date Visits Requ ested Visits Authorized [id number] Closed 03/17/2021 03/17/2022 1 1 Reason for Visit Outpatient (Routine) - Closed Specialty Diagnoses / Procedures Referred By Contact Refer red To Contact Hematology Oncology Edison Alvarez M.B.B.S. [facility] Referral ID Status Reason Start Date Expiration Date Visits Requ ested Visits Authorized [id number] Closed 04/28/2020 04/28/2021 1 1 Encounter Details Date Type Department Care Team Description 03/17/2021 Office Visit Division of Margy Mcintyre B Cell Lymphoma Lymph Nodes Of Multiple Sites (HCC) (Primary Dx); Hematology alma Serna APRN, C.N.PCarmine, Malignant Neoplasm Of Thyroid Papillary (HCC) [place], [place] D.N.P. 200 [facility] [address] [place] [phone] Social History Tobacco Use Types Packs/Day Years [...] Sign Reading Time Taken Comments Blood Pressure - - Pulse - - Temperature 36.1 ??C (96.9 ??F) 03/17/2021 3:00 PM CDT Respiratory Rate - - Oxygen Saturation - - Inhaled Oxygen Concentration - - Weight - - Height - - Body Mass Index - - documented in this encounter Progress Notes Margy Mcintyre APRN, C.N.P., D.N.P. 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 Flow cytometry studies showed involvement by a CD5 negative kappa light chain restricted B-cell population which was positive for CD19, CD20, and CD22. Bone marrow biopsy done shortly after showing involvement by lymphoma. Observed; no treatment. INTERVAL HISTORY: Levi Khanna is a 75 y.o. 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 We are asked to see patient early by endocrinology due to some concern for progression of his lymphoma in the setting of biopsy-proven papillary thyroid cancer. Patient explains he has been feeling quite well. 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 He did have a hernia repair in January. He has recovered fully from this. He denies all B symptoms today. Otherwise, patient denies fever, chills, drenching night sweats, unintentional weight loss, palpableadenopathy, fatigue, changes to appetite, nausea/vomiting, diarrhea, constipation, changes to bladder habits, neuropathy, palpitations, chest pain, shortness of breath, mouth sores, antibiotic use, hospitalizations, ER visits, changes to medical or surgical history, dizziness, and unexplained rash or pruritus. ECOG score 0. The following portions of the patient's history were reviewed and updated as appropriate: allergies,current medications, family history, medical history, social history, surgical history and problem list. REVIEW OF SYSTEMS REVIEW OF SYSTEMS OBJECTIVE There were no vitals taken for this visit. Wt Readings from Last 3 Encounters: 03/13/21 73.4 kg 01/16/21 73.4 kg 10/15/20 76.3 kg PHYSICAL EXAM General: Well-nourished, in good hygiene, in no apparent distress. Lungs: Symmetrical movements, clear to auscultation in all barboza. No cough, wheezing, crackles or shortness of breath noted. Heart: Regular rate/rhythm, S1 S2, no gallop, rub, or murmur. Abdomen: Soft, non-tender, no distention. Bowel sounds in all 4 quadrants. There is no hepatosplenomegaly, or palpable masses. Lymphadenopathy: No cervical, supraclavicular, axillary, or inguinal lymphadenopathy palpable. Skin: Limited exam; No rash noted. Neck: Trachea midline, no tenderness, masses, lymphadenopathy, or enlargement of thyroid. Mouth: No erythema, ulcers, swelling, enlargement of tonsils or surrounding tissue, or thrush. Extremities: Warm, 2+ palpable pulses, no edema. Spine: No tenderness on palpation of spinal processes. Psychiatric: Normal mood and affect. Behavior is normal. Judgment and thought content normal Neurological: Alert and oriented, clear speech. Full sensation in all digits. PERRLA. Steady gait without use of assistive device. No obvious deficits. DIAGNOSTICS I have reviewed the recent relevant laboratory studies and PET scan. Labs are unremarkable. PET scanshows no evidence of lymphoma. ASSESSMENT / PLAN #1 Unspecified B Cell Lymphoma Lymph Nodes Of Multiple Sites (HCC) It was a pleasure meeting Mr. Khanna in clinic this afternoon. His PET scan shows no evidence of progression of his lymphoma. I also do not appreciate any adenopathy today. He also denies all B symptoms. Given this, I do not see any clinical, biochemical, or physical examination evidence of progression of his lymphoma. We will plan to see patient back in 1 year with labs and H&P. I will discuss this with Dr. Greenberg when he returns clinic and if this plan is modified I will contact the patient. Patient was in understanding agreement of this plan. Patient understands he can contact us in the interim if he develops any concerning symptoms or has any concerns. 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 Wu for management of his papillary thyroid carcinoma. I will communicate our plan from a lymphoma perspective to her so that she can move forward with any further treatment that it may be necessary for the the thyroid carcinoma. PLAN: 1. Follow-up in 1 year with labs and H&P. Clinical findings and plan discussed with Dr. Dionicio Muniz. Education We discussed the diagnosis and treatment plan in detail. The patient expressed understanding and agreement of the content and plan. No apparent learning barriers were identified; learning preferences include listening. Pt allowed to ask questions; all questions answered. I personally spent a total 45 minutes face to face with the patient in counseling and discussion and/or coordination of care as described above. documented in this encounter Plan of Treatment Upcoming Encounters Date Type Specialty Care Team Description 10/11/2022 Appointment Laboratory Medicine Natasha Mullins APRN, C.N.P., M.S.N. [address] [place] [phone] (Wo rk) 10/11/2022 Ancillary Procedure Cardiovascular Disease Natasha Cramer APRN, Radha.N.PCarmine, M.S.N. [address] [place] [phone] (Wo rk) 10/11/2022 Appointment Cardiovascular Disease Natasha Mullins APRN, C.NRenetta, M.S.N. [address] [place] [phone] (Wo rk) 10/12/2022 Office Visit Cardiovascular Disease Natasha Mullins APRN, C.NRenetta, M.S.N. [address] [place] [phone] (Wo rk) Scheduled Referrals Name Type Priority Associated Order Schedule Diagnoses Hematology office Outpatient Referral Routine Exp ected: visit (clinic) 03/17/2022, Expires: 03/17/2024 documented as of this encounter Results Potassium (04/08/2022 10:39 AM CDT) P athologist Signature Potassium, P 4.8 3.6 - 5.2 04/08/2022 CNFL mmol/L 11:00 AM CDT Specimen Anatomical Collection Method Collection Time Receive d Time (Source) Location / / Volume Laterality Blood (Blood, 04/08/2022 10:39 04/08/2022 Venous) AM CDT 10:41 AM CDT Danny Rodas APRNNRenetta, D.N.P. LAB BLOOD ADD- ON Performing Organization Address City/State/ZIP Code Phon e Number [address] [address] [facility] [place] [address] System [address] LD (Lactate Dehydrogenase) (04/08/2022 10:39 AM CDT) Analysis Performed At Patho logist Time Signature Lactate 174 122 - 222 04/08/2022 [facility] Dehydrogenase U/L 1:18 PM CDT (LD), P Specimen Anatomical Collection Method Collection Time Receive d Time (Source) Location / / Volume Laterality Blood (Blood, 04/08/2022 10:39 04/08/2022 Venous) AM CDT 12:20 PM CDT Margy Mcintyre APRN, C.N.P., D.N.P. LAB BLOOD NON ADD-ON Performing Organization Address City/State/ZIP Code Phon e Number [facility]- [address] [place], [place] [address] [facility] [place] [address] System in [place] [address] [address] [place] Creatinine with Estimated GFR (04/08/2022 10:39 AM CDT) P athologist Signature Creatinine 0.78 0.74 - 04/08/2022 CNFL 1.35 mg/dL 11:00 AM CDT eGFR-Black/Afric >90 >=60 04/08/2022 CNFL an Nauruan mL/min/BSA 11:00 AM CDT Comment: ----ADDITIONAL INFORMATION---- [...] LAB BLOOD ADD- ON Performing Organization Address City/State/[facility] Code Phon e Number [facility]- [address] [place] [address] [place] [address] [facility] [place] [address] [address] (ABNORMAL) CBC with Differential, Blood (04/08/2022 [...] Organization Address City/State/ZIP Code Phon e Number [facility]- [address] [place] [address] [facility] [place] [address] System [address] Calcium, Total (04/08/2022 10:39 AM CDT) P athologist Signature Calcium, Total, 8.8 8.8 - 10.2 04/08/2022 CNFL P mg/dL 11:00 AM CDT Specimen Anatomical Collection Method Collection Time Receive d Time (Source) Location / / Volume Laterality Blood (Blood, 04/08/2022 10:39 04/08/2022 Venous) AM CDT 10:41 AM CDT Radha Rodas APRN.N.P., D.N.P. LAB BLOOD ADD- ON Performing Organization Address [facility] Phon e Number [address] [address] [facility] [address] [address] Bilirubin, Total (04/08/2022 10:39 AM CDT) P athologist Signature Bilirubin, 0.3 <=1.2 mg/dL 04/08/2022 CNFL Total, P 11:00 AM CDT Specimen Anatomical Collection Method Collection Time Receive d Time (Source) Location / / Volume Laterality Blood (Blood, 04/08/2022 10:39 04/08/2022 Venous) AM CDT 10:41 AM CDT Radha Rodas APRN.N.P., D.N.P. LAB BLOOD ADD- ON Performing Organization Address [facility] Code Phon e Number [address] [address] [facility] [address] [address] AST (Aspartate Aminotransferase) (04/08/2022 10:39 AM [...] LAB BLOOD ADD- ON Performing Organization Address City/[facility]/ZIP Code Phon e Number [address] [address] [facility] [address] System [address] Alkaline Phosphatase (04/08/2022 10:39 AM CDT) P athologist Signature Alkaline 98 40 - 129 04/08/2022 CNFL Phosphatase, P U/L 11:00 AM CDT Specimen Anatomical Collection Method Collection Time Receive d Time (Source) Location / / Volume Laterality Blood (Blood, 04/08/2022 10:39 04/08/2022 Venous) AM CDT 10:41 AM CDT Margy Mcintyre APRN, C.N.P., D.N.P. LAB BLOOD ADD- ON Performing Organization Address [facility] Code Phon e Number [address] [address] [facility] [place] [address] [address] documented in this encounter Visit Diagnoses Diagnosis Unspecified B Cell Lymphoma Lymph Nodes Of Multiple Sites (HCC) - Primary Malignant Neoplasm Of Thyroid Papillary (HCC) documented in this encounter Care Teams Associate Professor Of Management Relationship Specialty Start Date End Date Elsewhere, Pcp PCP - General Family Medicine 10/25/18 documented as of this encounter
--- OUTSIDE RECORDS SUMMARY | 2022-08-27 11:24 | XMS_ITS | Encounter Summary ---
:1945 Author Organization [facility] Address [address] [place] [address] Care Team Providers Name Role Phone Elsewhere, Pcp Primary Care Provider Unavailable Reason for Referral Outpatient (Routine) - Closed Specialty Diagnoses / Procedures Referred By Contact Refer red To Contact Otorhinolaryngology Diagnoses Malignant Neoplasm Of Thyroid (HCC) Loni Wu [place] M.D. [address] [place] [address] Referral ID Status Reason Start Date Expiration Date Visits Requ ested Visits Authorized [id number] Closed 03/19/2021 03/19/2022 1 1 Scheduling Instructions Please schedule with Lilly as it i s his patient Encounter Details Date Type Department Care Team Description 03/19/2021 Orders Only Division of Endocrinology Loni Wu Ma lignant Neoplasm Of in [facility] milan Love M.D. Thyroid (HCC) (Primary [address] Dx) [place] [address] [place], [place] [phone] Social History Tobacco Use Types Packs/Day Years [...] or relatives? How often do you attend anglican or More than 4 times per year 10/15/2019 scientology services? Do you belong to any clubs or Yes 10/15/2019 organizations such as anglican groups, unions, fraternal or athletic groups, or [...] Medicine Natasha Mullins APRN, C.N.P., M.S.N. [address] [place] [phone] (Joanie rk) 10/11/2022 Ancillary Procedure Cardiovascular Disease Natasha Cramer APRN, C.N.P., M.S.N. [address] [place] [phone] (Wo rk) 10/11/2022 Appointment Cardiovascular Disease Natasha Mullins APRN, C.N.P., M.S.N. [address] [place] [phone] (Wo rk) 10/12/2022 Office Visit Cardiovascular Disease Natasha Mullins APRN, C.N.P., M.S.N. [address] [place] [phone] (Joanie rk) Scheduled Referrals Name Type Priority Associated Order Schedule Diagnoses Otorhinolaryngology - Head Outpatient Routine Malignant E xpected: and neck surgery consult Referral Neoplasm Of 04/2021 (clinic) Thyroid (HCC) (Approximate), Expires: 03/19/2024 documented as of this encounter Visit Diagnoses Diagnosis Malignant Neoplasm Of Thyroid (HCC) - Pr imary documented in this encounter Care Teams Press Tender Long Goods Relationship Specialty Start Date End Date Elsewhere, Pcp PCP - General Family Medicine 10/25/18 documented as of this encounter
--- OUTSIDE RECORDS SUMMARY | 2022-08-27 11:24 | XMS_ITS | Encounter Summary ---
:1945 Author Organization [facility] Address [address] [place] [address] Care Team Providers Name Role Phone Elsewhere, Pcp Primary Care Provider Unavailable Reason for Visit Reason Comments Med Refill Encounter Details Date Type Department Care Team Description 03/16/2021 Refill Division of Hematology in Clifford Mcintyre APRN, Med Refill [place], [place] C.N.P., D.N.P. [address] [facility] [address] [place] [address] [place] [address] [phone] (Wo rk) Social History Tobacco Use Types [...] More than 4 times per year 10/15/2019 zoroastrian services? Do you belong to any clubs [...] Medicine Natasha Mullins APRN, C.N.P., M.S.N. [address] [place] [phone] (Joanie rk) 10/11/2022 Ancillary Procedure Cardiovascular Disease Natasha Crmaer APRN, Radha.N.P., M.S.N. [address] [place] [phone] (Joanie velázquez) 10/11/2022 Appointment Cardiovascular Disease Natasha Mullins APRN, Radha.N.Franklin., M.S.N. [address] [place] [phone] (Joanie velázquez) 10/12/2022 Office Visit Cardiovascular Disease Natasha Mullins APRN, Radha.NLibrado., M.S.N. [address] [place] [phone] (Joanie velázquez) documented as of this encounter Visit Diagnoses Not on filedocumented in this encounter Care Teams Electrical Maintenance Engineer Relationship Specialty Start Date End Date Elsewhere, Pcp PCP - General Family Medicine 10/25/18 documented as of this encounter
--- OUTSIDE RECORDS SUMMARY | 2022-08-27 11:24 | XMS_ITS | Encounter Summary ---
:1945 Author Organization [facility] Address [address] [place] [address] Care Team Providers Name Role Phone Elsewhere, Pcp Primary Care Provider Unavailable Encounter Details Date Type Department Care Team Description 04/29/2021 Orders Only Department of Anya, Malignant Neop las Otorhinolaryngology in Gissell Bustamante Of Thyroid Papillary [place], [place] [address] [facility] (HCC) (Primary Dx) [address] [place] [phone] Social History Tobacco Use Types Packs/Day Years [...] or relatives? How often do you attend hoahaoism or More than 4 times per year 10/15/2019 temple services? Do you belong to any clubs or Yes 10/15/2019 organizations such as hoahaoism groups, unions, fraternal or athletic groups, or [...] Medicine Natasha Mullins APRN, C.N.P., M.S.N. [address] [place] [phone] (Wo rk) 10/11/2022 Ancillary Procedure Cardiovascular Disease Natasha Cramer APRN, C.N.PCarmine, M.S.N. [address] [place] [phone] (Wo rk) 10/11/2022 Appointment Cardiovascular Disease Natasha Mullins APRN, Radha.N.P., M.S.N. [address] [place] [phone] (Wo rk) 10/12/2022 Office Visit Cardiovascular Disease Natasha Mullins APRN, Radha.N.P., M.S.N. [address] [place] [phone] (Wo rk) documented as of this encounter Results SARS Coronavirus 2, Molecular Detection, PCR, Varies Asymptomatic (05/26/2021 8:50 AM CDT) [facility] Method Time Signature COVID-19, Swab, 05/26/2021 DTL PCR, Source Nasopharynx 12:04 PM CDT COVID-19, Undetected Undetected 05/26/2021 DTL PCR, Result 12:04 PM CDT Comment: SARS-CoV-2 RNA absent. This result does not rule out COVID-19 in the patient, as the sensitivity of the test depends o n the timing of the specimen collection and quality of the specimen. Result should be correlated with patient's history and clinical presentat ion. ----ADDITIONAL INFORMATION---- This RT-PCR test using the Styloola SARS-Co V-2 Assay ( Xanodyne.) performed on the Styloola Two Module System has received Emergency Use Authorization (EUA) by the U.S. Food and Drug Administration, and is modified from the house mover's instructions with a bridging study. Performance characteristics were verifie d by [facility] in a manner consistent with CLIA requirements. Visit the CDC website: https://www.cdc.g ov/coronavirus/ for the most recent guidelines on Mcclain virus testing. Fact Sheet for Healthcare Providers: https://www.fda.gov/media/311181/downloa d Fact Sheet for Patients: https://www.fda.gov/media/035263/downloa d Specimen Anatomical Collection Method Collection Time Receive d Time (Source) Location / / Volume Laterality Varies 05/26/2021 8:50 AM 9:09 (Nasopharynx) CDT AM CDT Adams Joyner M.D. LAB MICROBIOLOGY - GENERAL O RDERABLES Performing Organization Address City/State/ZIP Code Phon e Number [facility] - [address] [place], [place] [address] [place] 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
--- OUTSIDE RECORDS SUMMARY | 2022-08-27 11:24 | XMS_ITS | Encounter Summary ---
:1945 Author Organization [facility] Address [address] [place] [address] Care Team Providers Name Role Phone Elsewhere, Pcp Primary Care Provider Unavailable Reason for Referral MRI/CAT/PET Scan (Routine) - Closed Specialty Diagnoses / Procedures Referred By Contact Refer red To Contact Radiology Diagnoses Malignant Neoplasm Of Thyroid (HCC) Loni Wu M.D. [facility] Procedures CT Chest without IV Contrast [address] [place] [address] [phone] Referral ID Status Reason Start Date Expiration Date Visits Requ ested Visits Authorized [id number] Closed 03/10/2021 03/10/2022 1 1 Reason for Visit MRI/CAT/PET Scan (Routine) - Closed Specialty Diagnoses / Procedures Referred By Contact Refer red To Contact Radiology Diagnoses Malignant Neoplasm Of Thyroid (HCC) Loni Wu M.D. [facility] Procedures CT Chest without IV Contrast [address] [place] [phone] Referral ID Status Reason Start Date Expiration Date Visits Requ ested Visits Authorized [id number] Closed 03/10/2021 03/10/2022 1 1 Encounter Details Date Type Department Care Team Description 03/12/2021 Hospital Encounter Department of Loni Wu Neoplasm Of Radiology, Jethro Love M.D. Thyroid (HCC) Building, in [address] [place] [address] [place] [phone] [place], [place] [phone] (Work) [phone] Social History Tobacco Use Types Packs/Day Years [...] Medicine Natasha Mullins APRN, Radha.N.P., M.S.N. [address] [place] [phone] (Wo rk) 10/11/2022 Ancillary Procedure Cardiovascular Disease Natasha Cramer APRN, C.N.P., M.S.N. [address] [place] [phone] (Wo rk) 10/11/2022 Appointment Cardiovascular Disease Natasha Mullins APRN, Radha.N.P., M.S.N. [address] [place] [phone] (Joanie rk) 10/12/2022 Office Visit Cardiovascular Disease Natasha Mullins APRN, C.N.P., M.S.N. [address] [place] [phone] (Joanie rk) documented as of this encounter Procedures Procedure Name Priority Date/Time Associated Comments Diagnosis CT CHEST WITHOUT RAD - Routine 03/12/2021 12:45 Malignant Result s for this IV CONTRAST (most inpatients PM CDT Neoplasm Of procedure a re in and all Thyroid (HCC) the results outpatients) section. documented in this encounter Results CT Chest without IV Contrast (03/12/2021 12:45 PM CDT) Anatomical Region Laterality Modality Chest, Thoracic RST LOS, Thoracic ARZ N/A Co mputed Tomography, Computed LOS, Thoracic FLA LOS Tomography Specimen (Source) Anatomical Collection Method Collection Time Re ceived Time Location / / Volume Laterality 03/12/2021 4:28 PM CDT Impressions 03/12/2021 4:47 PM CDT 1. A few bilateral pulmonary micronodules, some of which are not apparent on prior PET/CT, which may be due to differ ence in technique, although indeterminate. 2. Mild diffuse bronchial wall thickenin g and centrilobular groundglass nodularity suggests large and small airw ay inflammatory disease. Narrative 03/12/2021 4:47 PM CDT EXAM: CT CHEST WITHOUT IV CONTRAST COMPARISON: PET/CT dated 04/28/2020. FINDINGS: Medial left upper lobe micronodule (less than 3 mm, 3/154) appears unchanged from prior PET/CT. A few scattered micro nodules are not well visualized on prior PET/CT which may be due to difference in acquisition technique, for instance right middle lobe (3/407) and left lower lobe (3/540). Scarring along the medial left upper lobe appears similar. Patchy peripheral endobronchial plugging with mild diffuse central bronchial wall thic kening. Bibasilar bands of atelectasis and/or scarring. Subtle diffuse centrilo bular groundglass nodularity. No thoracic lymphadenopathy by size crit eria. Small amount of retained debris within the intrathoracic trachea. Mcclain ry atherosclerotic calcifications and stenting. Aortic valve calcification. Sm all amount of fatty infiltration in the left ventricular wall with mild prominen ce of the left ventricle. Small esophageal hiatal hernia. Mild dilation of the ascending aorta measuring 4 cm in diameter. Mild asymmetric left gynecomas tia appears similar. Negative adrenal glands. Cyst in upper pole left kidney. Moderate degenerative changes of the visualized right shoulder. Right T9 aguilar sverse process bone island appears similar. Mild hypertrophic degenerative thoracic spine. Mild loss vertebral body heights in the mid to lower thoracic spi ne appear similar. Mild thoracolumbar curve. Thank you for this consultation. 3D maximum intensity projection (MIP) im ages were created on a dependent workstation as ordered by the treating jean-paul san and reviewed by the radiologist to increase sensitivity for detection of pulmonary nodules. Procedure Note Johnathon Beltran M.D. - 03/12/2021Forma tting of this note might be different from the original. EXAM: CT CHEST WITHOUT IV CONTRAST COMPARISON: PET/CT dated 04/28/2020. FINDINGS: Medial left upper lobe micronodule (less than 3 mm, 3/154) appears unchanged from prior PET/CT. A few scattered micro nodules are not well visualized on prior PET/CT which may be due to difference in acquisition technique, for instance right middle lobe (3/407) and left lower lobe (3/540). Scarring along the medial left upper lobe appears similar. Patchy peripheral endobronchial plugging with mild diffuse central bronchial wall thic kening. Bibasilar bands of atelectasis and/or scarring. Subtle diffuse centrilo bular groundglass nodularity. No thoracic lymphadenopathy by size crit eria. Small amount of retained debris within the intrathoracic trachea. Mcclain ry atherosclerotic calcifications and stenting. Aortic valve calcification. Sm all amount of fatty infiltration in the left ventricular wall with mild prominen ce of the left ventricle. Small esophageal hiatal hernia. Mild dilation of the ascending aorta measuring 4 cm in diameter. Mild asymmetric left gynecomas tia appears similar. Negative adrenal glands. Cyst in upper pole left kidney. Moderate degenerative changes of the visualized right shoulder. Right T9 aguilar sverse process bone island appears similar. Mild hypertrophic degenerative thoracic spine. Mild loss vertebral body heights in the mid to lower thoracic spi ne appear similar. Mild thoracolumbar curve. Thank you for this consultation. 3D maximum intensity projection (MIP) im ages were created on a dependent workstation as ordered by the treating jean-paul san and reviewed by the radiologist to increase sensitivity for detection of pulmonary nodules. IMPRESSION: 1. A few bilateral pulmonary micronodule s, some of which are not apparent on prior PET/CT, which may be due to differ ence in technique, although indeterminate. 2. Mild diffuse bronchial wall thickenin g and centrilobular groundglass nodularity suggests large and small airw ay inflammatory disease. Loni Wu M.D. IMG CT PROCEDURES documented in this encounter Visit Diagnoses Diagnosis Malignant Neoplasm Of Thyroid (HCC) documented in this encounter Care Teams Vacation Guide Relationship Specialty Start Date End Date Elsewhere, Pcp PCP - General Family Medicine 10/25/18 documented as of this encounter
--- OUTSIDE RECORDS SUMMARY | 2022-08-27 11:25 | XMS_ITS | Encounter Summary ---
:1945 Author Organization [facility] Address [address] [place] [address] Care Team Providers Name Role Phone Elsewhere, Pcp Primary Care Provider Unavailable Reason for Referral Outpatient (Routine) - Closed Specialty Diagnoses / Procedures Referred By Contact Refer red To Contact Steven Trotter M.D. [facility] [address] [place] [phone] Referral ID Status Reason Start Date Expiration Date Visits Requ ested Visits Authorized [id number] Closed 01/16/2021 01/16/2022 1 1 R RUNNER Encounter Details Date Type Department Care Team Description 01/16/2021 Hospital Encounter RST ROMNiurka WATKINS OR Gigi Quiroga, [address] [place] [address] Lupillo, Ph.D. [place], [place] [phone] [phone] [place] [address] [place] [phone] Social History Tobacco Use Types Packs/Day Years [...] Sign Reading Time Taken Comments Blood Pressure 165/100 01/16/2021 4:00 PM okay to DC timothy baugh Dr MIXER RUNNER Merrek Pulse 100 01/16/2021 4:00 PM MIXER RUNNER Temperature 36.5 ??C (97.7 ??F) 01/16/2021 4:03 PM MIXER RUNNER Respiratory Rate 15 01/16/2021 11:00 AM MIXER RUNNER Oxygen Saturation 96% 01/16/2021 4:00 PM MIXER RUNNER Inhaled Oxygen - - Concentration Weight 73.4 kg (161 lb 13.1 01/16/2021 7:17 AM oz) MIXER RUNNER Height 173.3 cm (5' 8.23) 01/16/2021 7:17 AM MIXER RUNNER Body Mass Index 24.44 01/16/2021 7:17 AM MIXER RUNNER documented in this encounter Medications at Time of Discharge Medication Sig Dispensed Refills Start Date End Date aspirin [address] tablet Take 81 mg by mouth 0 daily. Take for life. montelukast (SINGULAIR) Take 1 tablet by 0 2014 10 mg tablet mouth at bedtime. multivitamin tablet Take 1 tablet by 0 mouth daily. albuterol (PROVENTIL Inhale 1-2 puffs as 0 2017 HFA,VENTOLIN HFA) 90 needed for wheezing mcg/actuation inhaler or shortness of breath. cetirizine (ZyrTEC) 10 Take 10 mg by mouth 0 08/14 mg tablet daily. fluticasone Inhale 1 puff daily 0 08/25/2015 propion-salmeteroL as needed. 250-50 mcg/dose diskus inhaler tamsulosin (FLOMAX) 0.4 Take 0.4 mg by mouth 0 mg 24 hr capsule daily. levothyroxine Take 1 tablet (200 90 tablet 3 06/03/202002/2021 (SYNTHROID, LEVOTHROID) mcg total) by mouth 200 mcg tablet daily. acetaminophen (Tylenol Take 500 mg by [...] (Purchase over the counter. Alternate with acetaminophen.). lisinopriL Take 1 tablet (40 mg 90 [...] documented as of this encounter Nursing Notes Orville Hankins R.N. - 01/16/2021 7:58 AM CST Family here with patient. Denies chest pain or shortness of breath. Denies any metal on body. Intraoperative routine discussed with no questions from the patient. Complaints of discomfort, 02/21 groin/abdomen. Has a good understanding of planned procedure R RUNNER documented in this encounter OR Notes Op Note - Katty Clarke M.D. - 01/16/2021 8:35 AM CST FULL OP NOTE Procedure(s) (LRB): Repair Hernia Inguinal With Mesh (Left) Surgeon(s) and Role: * Katty Clarke M.D. - Primary * Awilda-Steven Angel M.D. - Senior Major Gifts Officer Anesthesia Type General Pre-operative Diagnosis Hernia Inguinal Left Post-operative Diagnosis Hernia Inguinal Left, both direct and indirect components A first officer and flight instructor actively participated and was necessary for one or more of the following: opening,exposure and visualization during the case, maintaining hemostasis, wound closure resulting in its safe and expeditious completion. Findings Direct inguinal hernia Complications None Description of Procedure After verification of informed consent, the patient was taken to the operating room. After inductionof satisfactory general anesthesia, the patients left groin, scrotum and abdomen were prepped and draped in standard, sterile fashion. A surgical pause was performed to verify the patient, medical record number, date, planned surgical procedure, laterality, allergies, antibiotics, and fire risk. A curvilinear inguinal incision was created paralleling the inguinal ligament from pubic tubercle toward ASIS. This incision was deepened with electrocautery. Omid's fascial was divided. The externaloblique fascia was identified and cleaned of its fatty attachments and sharply opened in the direction of its fibers through the external ring. The cord and its structures were encircled with a finger after blunt dissect on and encircled with a farzana drain. The inguinal floor was noted to be quite weak. We encountered a direct hernia sac. The cremasteric fibers were released from the spermatic cordand the hernia sac was dissected free. The peritoneal sac had no contents. The sac then suture ligated andwas manually reduced back into the peritoneal cavity after the excess hernia sac was trimmed and discarded. The field was inspected and hemostasis was obtained with electrocautery. A panel of Prolene mesh was cut to size and sutured into place with running double armed 2-0 Prolene sutures along the pubic tubercle, shelving edge, transversalis fascia. The wound was once again reinspected and found to be appropriate from a hemostasis standpoint. The mesh was well situated, however the mesh was recreated internal ring was loose. This was reinforced with interrupted prolene sutures until the defect was approximately a cm in size. Counts were reported correct, and we proceeded with closure with reapproximation of the external oblique fascia with a running 3-0 Vicryl suture. Omid's layer was reapproximated with a interrupted 3-0 Vicryl sutures, and the skin was closed with a running 4-0 subcuticular monocryl. Each layer of closure was irrigated and inspected and found to be hemostatic. Local a nesthetic was infiltrated in each layer during closure. Dermabond was applied. The patient was extubated and transferred to the post anesthesia recovery unit in stable condition. Wound Class: Clean Specimens None Drains Estimated Blood Loss 20 mL Implants Implant Name Type Inv. Item Serial No. Marine Diesel Technician Lot No. LRB No. Used Action [facility] [place] POLYPRP KNIT 6X6 - [id number] Mesh or Patch [facility] [place] PRL FAITH POLYPRP KNIT 6X6 Ethicon QGBCQA Left 1 Implanted Steven Trotter M.D. R RUNNER Brief Op Note - Steven Trotter M.D. - 01/16/2021 8:35 AM CST BRIEF OP NOTE Procedure(s) (LRB): Repair Hernia Inguinal With Mesh (Left) Surgeon(s) and Role: * Katty Clarke M.D. - Primary * Steven Trotter M.D. - Senior Major Gifts Officer Anesthesia Type General Pre-operative Diagnosis Hernia Inguinal Left Post-operative Diagnosis Hernia Inguinal Left Findings Direct inguinal hernia, no contents within the sac. Open jordy repair with mesh. Complications None Specimens None Drains None Estimated Blood Loss 20 mL Implants Implant Name Type Inv. Item Serial No. Marine Diesel Technician Lot No. LRB No. Used Action [facility] [place] PRL FAITH POLYPRP KNIT 6X6 - [id number] Mesh or Patch [facility] [place] PRL FAITH POLYPRP KNIT 6X6 Ethicon QGBCQA Left 1 Implanted Steven Trotter M.D. R RUNNER documented in this encounter Plan of Treatment Upcoming Encounters Date Type Specialty Care Team Description 10/11/2022 Appointment Laboratory Medicine Natasha Mullins APRN, Radha.N.Jalen, M.S.N. [address] [place] [phone] (Joanei velázquez) 10/11/2022 Ancillary Procedure Cardiovascular Disease Natasha Cramer APRN, Radha.N.P., M.S.N. [address] [place] [phone] (Joanie rk) 10/11/2022 Appointment Cardiovascular Disease Natasha Mullins APRN, Radha.N.P., M.S.N. [address] [place] [phone] (Joanie rk) 10/12/2022 Office Visit Cardiovascular Disease Natasha Mullins APRN, C.N.P., M.S.N. [address] [place] [phone] (Joanie rk) Scheduled Referrals Name Type Priority Associated Diagnoses Order S chedule Trauma Critical Outpatient Referral Routine Expec cristobal: Care and General 01/30/2021 Surgery - Nurse (Approximate ), phone visit Expires: (clinic) 01/17/2024 documented as of this encounter Procedures Procedure Name Priority Date/Time Associated Diagnosis Comme nts ADULT OXYGEN THERAPY Routine 01/16/2021 10:54 AM MIXER RUNNER REPAIR HERNIA INGUINAL 01/16/2021 7:33 AM MIXER RUNNER Hernia I nguinal Left WITH MESH documented in this encounter Visit Diagnoses Not on filedocumented in this encounter Administered Medications Inactive Administered Medications - up to 3 most recent administrations Medication Order MAR Action Action Date Dose Rate Site acetaminophen tablet 1,000 mg Given 01/16/2021 11:38 AM MIXER RUNNER 1,00 0 mg (TYLENOL) 1,000 mg, oral, Every 6 hours PRN, mild pain or score 1-3 of 10, Starting on Tue01/16/21 at 1054 metoprolol tablet 12.5 mg (LOPRESSOR) 12.5 mg, oral, Once as needed, if patien t did not take their last scheduled dose of beta caise prior to arrival, Starting on Tue01/16/21 at 0710, For 1 dose, Pre-Op, Do not give if patient does not take scheduled beta bl ockers, if patient is receiving intravenous vasopressors or inotropes, if he art rate is less than 50 beats per minute, if systolic blood pres sure is less than 90 mmHg or if diastolic blood pressure is less than 40 mmHg, or if patient has an allergy to metoprolol. sodium chloride 0.9 % injection 10 mL 10 mL, intravenous, As needed, line care , Starting on Tue01/16/21 at 0638, Pre-Op, Peripheral Intravenous Catheter and Rapid Infusion Cat heter, prior to blood sampling, post blood transfusion or post blood samplin g sodium chloride 0.9 % injection 3 mL 3 mL, intravenous, As needed, line care, Starting on Tue01/16/21 at 0638, Pre-Op, Prior to and following infusion and betw een multiple consecutive infusions: sodium chloride 0.9 % injection sodium chloride 0.9 % injection 3 mL 3 mL, intravenous, Every 12 hours scheduled, First dos e on Tue01/16/21 at 0900, Pre-Op, Peripheral Intravenous Catheter and Rapid Infu ousmane Catheter, when no infusion to maintain patency traMADoL tablet 100 mg (ULTRAM) 100 mg, oral, Every 6 hours PRN, severe pain or score 7-10 of 10, Starting on Tue01/16/21 at 1054 traMADoL tablet 50 mg (ULTRAM) 50 mg, oral, Every 6 hours PRN, moderate pain or score 4-6 of 10, Starting on Tue01/16/21 at 1054 documented in this encounter Active and Recently Administered Medications Times are shown in MIXER RUNNER. Scheduled Medication Order 01/14/2021 01/15/2021 01/16/2021 heparin (porcine) injection 5,000 Units (COMPLETED) 0819 (Given - Provider: Hayley Killian R.N., CCRN) 5,000 Units, subcutaneous, Once, On Tue01/16/21 at 0715, For 1 dose, Intra-Op, Administer prior to induction of anesthesia. sodium chloride 0.9 % injection 3 mL 0900 (Due) 3 mL, intravenous, Every 12 hours schedu led, First dose on Tue01/16/21 at 0900, Pre-Op, Peripheral Intravenous Catheter and Rapid Infusion Catheter, when no infusion to maintain patency vancomycin 1,000 mg in NaCl 0.9% 250 mL (VANCOCIN) IVPB (COMPLET ED) 0819 (Given - Provider: Hayley Killian R.N., CCRN) 1,000 mg (rounded from 1,101 mg = 15 mg/ kg ? 73.4 kg), intravenous, at 260 mL/hr, Administer over 60 Minutes, Once, On Tue01/16/21 at 0745, For 1 dose, Pre-Op, Drug Monitoring Program: Pharmacist to adj ust medication dosing based on indicatio n and drug clearance factors., Indications: Prophylaxis, surgical Continuous Medication Order 01/14/2021 01/15/2021 01/16/2021 lactated ringers 0945 (Due) 20 mL/hr, intravenous, at 20 mL/hr, Cont inuous, Starting Tue01/16/21 at 0945, PACU & Post-Op PRN Medication Order 01/14/2021 01/15/2021 01/16/2021 acetaminophen tablet 1,000 mg (TYLENOL) 1138 (Given - Provider: Sena Davis R.N.) 1,000 mg, oral, Every 6 hours PRN, mild pain or score 1-3 of 10, Starting on Tue01/16/21 at 1054 bupivacaine-EPINEPHrine (PF) 0.25 %-1:20 0,000 injection (MARCAINE w/EPI) (CANCELED) 1025 (Given - Provid er: Steven Trotter M.D.) As needed, Starting on Tue01/16/21 at 1025, Intra-Op dexAMETHasone injection 4 mg (DECADRON) 4 mg, intravenous, Once as needed, nause a, vomiting, Starting Tue01/16/21 at 1054, For 1 dose, Give only if NOT given during the pre or intraoperative period. If ondansetron ordered, give dexamethasone with first dose of ondansetron. haloperidol lactate injection 1 mg (HALDOL) 1 mg, intravenous, Every 6 hours PRN, na usea, vomiting, Starting Tue01/16/21 at 1054, For 48 hours, Total of 3 doses in 24 hour period. RASS must be -2 or higher to administer. Reassess for nausea or vom iting after at least 10 minutes. If naus ea or vomiting persists administer next ordered antiemetic medications (order for antiemetic medication administration ondansetron then haloperidol then promethazine) metoprolol tablet 12.5 mg (LOPRESSOR) 12.5 mg, oral, Once as needed, if patien t did not take their last scheduled dose of beta casie prior to arrival, Starting on Tue01/16/21 at 0710, For 1 dose, Pre-Op, Do not give if patient does not mitali e scheduled beta blockers, if patient is receiving intravenous vasopressors or inotropes, if heart rate is less than 50 beats per minute, if systolic blood pressure is less than 90 mmHg or if diastolic blood pressure is less than 40 mmHg, or if patient has an allergy to metoprolol. naloxone injection 0.2 mg (NARCAN) 0.2 mg, intravenous, As needed, respirat ory depression, Starting Tue01/16/21 at 1054, For RASS Score -4 or less, respiratory rate of less than 8 breaths/min. Notify provider/service and rapid response team (if available at institution). ondansetron (PF) injection 4 mg (ZOFRAN) 4 mg, intravenous, Every 6 hours PRN, na usea, vomiting, Starting Tue01/16/21 at 1054, For 48 hours, Reassess for nausea or vomiting after at least 10 minutes. If nausea or vomiting persists administer ne xt ordered antiemetic medications (order for antiemetic medication administration ondansetron then haloperidol then promethazine). promethazine injection 6.25 mg (PHENERGAN) 6.25 mg, intravenous, Every 6 hours PRN, nausea, vomiting, Starting Tue01/16/21 at 1054, For 48 hours, RASS must be -2 or higher to administer. Reassess for nausea or vomiting after at least 10 minutes. If nausea or vomiting persists administe r next ordered antiemetic medications (order for antiemetic medication administration ondansetron then haloperidol then promethazine) sodium chloride 0.9 % injection 10 mL 10 mL, intravenous, As needed, line care , Starting on Tue01/16/21 at 0638, Pre- Op, Peripheral Intravenous Catheter and Rapid Infusion Catheter, prior to blood sampling, post blood transfusion or post blood sampling sodium chloride 0.9 % injection 3 mL 3 mL, intravenous, As needed, line care, Starting on Tue01/16/21 at 0638, Pre-Op, Prior to and following infusion and between multiple consecutive infusions: sodium chloride 0.9 % injection traMADoL tablet 100 mg (ULTRAM)(Linked Group 1) 100 mg, oral, Every 6 hours PRN, severe pain or score 7-10 of 10, Starting on Tue01/16/21 at 1054 traMADoL tablet 50 mg (ULTRAM)(Linked Group 1) 50 mg, oral, Every 6 hours PRN, moderate pain or score 4-6 of 10, Starting on Tue01/16/21 at 1054 Linked Groups Order Group 1: traMADoL tablet 50 mg (ULTRAM)Jump to med 50 mg, oral, Every 6 hours PRN, moderate pain or score 4-6 of 10, Starting on Tue01/16/21 at 1054 Or traMADoL tablet 100 mg (ULTRAM)Jump to med 100 mg, oral, Every 6 hours PRN, severe pain or score 7-10 of 10, Starting on Tue01/16/21 at 1054 documented in this encounter Care Teams Press Bucker Relationship Specialty Start Date End Date Elsewhere, Pcp PCP - General Family Medicine 10/25/18 documented as of this encounter
--- OUTSIDE RECORDS SUMMARY | 2022-08-27 11:25 | XMS_ITS | Encounter Summary ---
:1945 Author Organization [facility] Address [address] [place] [address] Care Team Providers Name Role Phone Elsewhere, Pcp Primary Care Provider Unavailable Encounter Details Date Type Department Care Team Description 01/05/2021 Documentation Preoperative Evaluation Charmaine Ramos, [place] [facility] [address] [facility] [address] [place] [phone] Social History Tobacco Use Types Packs/Day Years [...] or relatives? How often do you attend baptist or More than 4 times per year 10/15/2019 gnosticism services? Do you belong to any clubs or Yes 10/15/2019 organizations such as baptist groups, unions, fraternal or athletic groups, or [...] encounter Progress Notes Melida Ramos, R.R.T. - 01/05/2021 3:44 PM CST There was a complete review of the EMR (Electronic Medical Record) to ascertain if a JENNIFER (Pre-Op Exam) appointment is needed. Scheduled for REPAIR HERNIA INGUINAL WITH MESH on 01/16/2021 to be performed by Dr. Gigi Quiroga, Dr. Ben Suárez, Dr. Gigi Arreola and Dr. Steven Trotter. The patient has a note dated 10/15/2020 by Natasha Fagan that contains current history and physical. Based upon information available in the EMR, patient can proceed directly to the OR (operating room)for the planned procedure. Physical exam to be done by anesthesia the morning of procedure. If the patient is on anticoagulation or antiplatelet agents, perioperative management is arranged bythe surgical service as indicated. The patient should skip all oral anti-diabetic agents, ANGELIC (glwiblxrlqq-srdcdsigrd-tvfars) inhibitors, diuretics, ARB's (angiotensin receptor blockers) and tobacco products on the day of the procedure. This is a JENNIFER pre-screening note. The patient was not seen in JENNIFER. [employer] documented in this encounter Plan of Treatment Upcoming Encounters Date Type Specialty Care Team Description 10/11/2022 Appointment Laboratory Medicine Natasha Mullins APRN, C.N.aJlen, M.S.N. [address] [place] [address] [phone] (Joanie velázquez) 10/11/2022 Ancillary Procedure Cardiovascular Disease Natasha Cramer APRN, C.N.P., M.S.N. [address] [place] [address] [phone] (Joanie velázquez) 10/11/2022 Appointment Cardiovascular Disease Natasha Mullins APRN, C.N.P., M.S.N. [address] [place] [address] [phone] (Joanie velázquez) 10/12/2022 Office Visit Cardiovascular Disease Natasha Mullins APRN, C.N.P., M.S.N. [address] [place] [address] [phone] (Wo rk) documented as of this encounter Visit Diagnoses Not on filedocumented in this encounter Care Teams Implementation Specialist Relationship Specialty Start Date End Date Elsewhere, Pcp PCP - General Family Medicine 10/25/18 documented as of this encounter
--- OUTSIDE RECORDS SUMMARY | 2022-08-27 11:25 | XMS_ITS | Encounter Summary ---
:1945 Author Organization [facility] Address [address] [place] [address] Care Team Providers Name Role Phone Elsewhere, Pcp Primary Care Provider Unavailable Encounter Details Date Type Department Care Team Description 03/10/2021 Hospital Encounter Department of Loni Wu Neoplasm Of Laboratory Medicine Lupillo Love Thyroid (HCC) and Pathology, [address] [place] [address] in [place], [place] [phone] [place] [address] [place], [place] (Work) [phone] Social History Tobacco Use [...] More than 4 times per year 10/15/2019 muslim services? Do you belong to any clubs [...] Medicine Natasha Mullins APRN, Radha.N.P., M.S.N. [address] [place] [address] [phone] (Joanie velázquez) 10/11/2022 Ancillary Procedure Cardiovascular Disease Natasha Cramer APRN, C.N.P., M.S.N. [address] [place] [address] [phone] (Joanie velázquez) 10/11/2022 Appointment Cardiovascular Disease Natasha Mullins APRN, Radha.N.P., M.S.N. [address] [place] [address] [phone] (Joanie velázquez) 10/12/2022 Office Visit Cardiovascular Disease Natasha Mullins APRN, C.N.P., M.S.N. [address] [place] [phone] (Wo rk) documented as of this encounter Procedures Procedure Name Priority Date/Time Associated Diagnosis Comme nts THYROGLOBULIN, TM, Routine 03/10/2021 9:44 AM Malignant Neopla sm Results for this S CDT Of Thyroid (HCC) procedure a re in the results section. THYROID-STIMULATING Routine 03/10/2021 9:44 AM Malignant Neopl asm Results for this HORMONE-SENSITIVE CDT Of Thyroid (HCC) proced ure are in (S-TSH) the results section. T4 (THYROXINE), Routine 03/10/2021 9:44 AM Malignant Neoplasm Results for this FREE, S CDT Of Thyroid (HCC) procedure a re in the results section. documented in this encounter Results (ABNORMAL) S-TSH (Thyroid-Stimulating Hormone - Sensitive) (03/10/2021 9:44 AM CDT) athologist Signature TSH, Sensitive 0.05 (L) 0.3 - 4.2 03/10/2021 DTL mIU/L 10:51 AM CDT Specimen Anatomical Collection Method Collection Time Receive d Time (Source) Location / / Volume Laterality Blood (Blood, 03/10/2021 9:44 AM 03/10/20 21 Venous) CDT 10:08 AM CDT Loni Wu M.D. LAB BLOOD ADD-ON Performing Organization Address City/State/ZIP Code Phon e Number [facility] - [address] [place], [place] [address] [facility] [place] [address] [facility] [address] [facility] (ABNORMAL) T4 (Thyroxine), Free (03/10/2021 9:44 AM CDT) athologist Signature T4 1.9 (H) 0.9 - 1.7 03/10/2021 DTL (Thyroxine), ng/dL 10:51 AM CDT Free, S Specimen Anatomical Collection Method Collection Time Receive d Time (Source) Location / / Volume Laterality Blood (Blood, 03/10/2021 9:44 AM 03/10/20 21 Venous) CDT 10:08 AM CDT Loni Wu M.D. LAB BLOOD ADD-ON Performing Organization Address City/State/ZIP Code Phon e Number [facility] - [address] [place], [place] [address] [facility] [place] [address] [facility] [address] (ABNORMAL) Thyroglobulin, Tumor Marker (03/10/2021 9:44 AM CDT) [facility] Method Time Signature Thyroglobulin 27 (H) <1.8 IU/mL 03/10/2021 [facility] Antibody, S 2:35 PM CDT Thyroglobulin, 17 (H) ng/mL 03/10/2021 [facility] Tumor Marker, S 2:52 PM CDT Comment: ----REFERENCE VALUE---- Athyrotic <0.1 Intact Thyroid <=33 Thyroglobulin Interpretation SEE COMMENT 2:52 PM CDT [facility] Comment: Quantitation of thyroglobulin may be unr eliable due to the presence of anti-thyroglobulin antibodie s. Thyroglobulin (Tg) levels must be interp reted in the context of TSH levels, serial Tg measurements an d radioiodine ablation status. ??Tg levels of > or = 1 0 ng/mL in athyrotic individuals on suppressive therapy indic ate a significant (>25%) risk of clinically detectable rec urrent papillary/follicular thyroid cancer. ----ADDITIONAL INFORMATION---- PLEASE NOTE: A thyroglobulin antibody (T Velma) reference cutoff of <4.0 IU/mL may be more suitabl e for the evaluation of autoimmune thyroiditis. Thyroglobulin flagging is based on athyr otic reference values. The thyroglobulin and thyroglobulin anti body testing methods are immunoenzymatic assays manufactured by [employer] and performed on the [employer] DXI 800 . Values obtained from different assay met hods or kits may be different and cannot be used inte rchangeably. The results cannot be interpreted as abs olute evidence for the presence or absence of malignant disease. Specimen Anatomical Collection Method Collection Time Receive d Time (Source) Location / / Volume Laterality Blood (Blood, 03/10/2021 9:44 AM 03/10/20 1:25 Venous) CDT PM CDT Loni Wu M.D. LAB BLOOD ADD-ON Performing Organization Address City/State/ZIP Code Phon e Number [facility] [address] [place] [address] [place] [address] Laboratory Medicine and Pathology [address] [place] documented in this encounter Visit Diagnoses Diagnosis Malignant Neoplasm Of Thyroid (HCC) documented in this encounter Care Teams Hole Puncher Strap Relationship Specialty Start Date End Date Elsewhere, Pcp PCP - General Family Medicine 10/25/18 documented as of this encounter
--- OUTSIDE RECORDS SUMMARY | 2022-08-27 11:25 | XMS_ITS | Encounter Summary ---
:1945 Author Organization [facility] Address [address] [place] [address] Care Team Providers Name Role Phone Elsewhere, Pcp Primary Care Provider Unavailable Reason for Visit Reason Comments Consult Appointment Request (Routine) - Closed Specialty Diagnoses / Referred By Contact Referred To Procedures Contact Breast, Endocrine, Diagnoses Hernia Inguinal Metabolic, and Gastrointestinal Surgery Referral ID Status Reason Start Date Expiration Date Visits Requ ested Visits Authorized [id number] Closed 12/30/2020 12/30/2021 1 1 Encounter Details Date Type Department Care Team Description 01/05/2021 Comprehensive Visit Division of Trauma Gigi Quiroga H ernia Inguinal Left Critical Care and Lupillo, Ph.D. (Primary Dx) General Surgery in [address] [place] [address] [address] [facility] [id number] [place], [place] [phone] (Work) [phone] Social History Tobacco Use Types Packs/Day Years [...] More than 4 times per year 10/15/2019 [employer] services? Do you belong to any clubs [...] PM CDT documented as of this encounter Consult Notes Bay Mccurdy D.O. - 01/05/2021 1:00 PM CST SUBJECTIVE CHIEF COMPLAINT / REASON FOR VISIT Levi Khanna is a 75 y.o. male presenting in referral from No ref. provider found for consultation in the evaluation of symptomatic left inguinal hernia. HISTORY OF PRESENT ILLNESS Levi Khanna is a 75 y.o. male with a PMHx of CAD with drug-eluting stent placement in 2014,CHF, ischemic cardiomyopathy, HTN, HLD, thyroid cancer status post surgery in 2019, B-cell lymphoma,and a prior ex-lap who presents with 1 month of left groin pain. He states he has never had any prior symptoms. He states that his pain is worse when he is walking around or coughing. He denies any obstructive symptoms such as nausea, vomiting, abdominal distention, obstipation, or skin changes. Patient is fairly active at baseline and states this is affecting his daily activities. He reports he can walk 2 blocks without any chest pain or shortness of breath. He takes Plavix and aspirin. No steroids. Nonsmoker. His EF was 52% in October of 2020. The following portions of the patient's history were reviewed and updated as appropriate: allergies,current medications, family history, medical history, social history, surgical history and problem list. REVIEW OF SYSTEMS Constitutional: Negative for fever. Negative for chills Skin: Negative for skin changes Respiratory: Negative for coughing up mucus (phlegm). Cardiovascular: Negative for chest pain, pressure or tightness. Gastrointestinal: Negative for abdominal (belly) pain or cramping, constipation, diarrhea, nausea and vomiting. Genitourinary: Positive for left groin pain. Negative for right groin pain. All other systems reviewed and are negative. OBJECTIVE PHYSICAL EXAM HENT Head: Normocephalic. Eyes Extraocular Movements: Extraocular movements intact. Pulmonary Effort: Pulmonary effort is normal. Abdominal General: Abdomen is flat. There is no distension. Palpations: Abdomen is soft. Tenderness: There is no abdominal tenderness. Hernia: No hernia is present. Comments: Old lower midline incision, well healed. Large, soft, reducible left inguinal hernia. Small right inguinal hernia on exam. Neurological Mental Status: He is alert. Diagnostics I have reviewed relevant laboratory, imaging, and other diagnostics as applicable. ASSESSMENT / PLAN # Left inguinal hernia # Right inguinal hernia Levi Khanna is a 75 y.o. male with a PMHx of CAD with drug-eluting stent placement in 2014,CHF, ischemic cardiomyopathy, HTN, HLD, thyroid cancer status post surgery in 2019, B-cell lymphoma,and a prior ex-lap who presents with 1 month of left groin pain. Patient has a large soft reducible left inguinal hernia on exam. As this is causing the patient discomfort and interfering with his daily activities will offer patient left open inguinal hernia repair with mesh. Plan: - list and consent for open left inguinal hernia repair with mesh - OH - COVID swab 2 days prior to surgery Consent I explained the operation in detail including the goals, risks, benefits, alternatives, and patient's resuscitation status in the perioperative period was reviewed. They understand the risks include, but are not limited to bleeding, infection, damage to surrounding structures, possible need for re-operation, and complications from anesthesia. We discussed that at [facility] there is a full team incorporated into patient care, and the patient acknowledges that others will be involved in their care. The patient understands that the staff surgeon may be participating in another operative procedure during non-critical portions of their procedure, and that a qualified surgeon will be available if needed. We discussed hospital policy surrounding photos, videos, and needle injury protocol. The patient consents to the use of blood products. All questions were answered and consent given. Patient understands and wishes to proceed. Patient Education No apparent learning barriers were identified; learning preferences include listening, questions anddiscussion. Explained diagnosis and treatment plan; expressed understanding of the content. Assessment and plan were discussed with Dr. Quiroga who is in agreement. Juan F Mccurdy D.O. General Surgery PGY-1 RIM CONTROLLER Associated attestation - Gigi Quiroga M.D., Ph.D. - 01/05/2021 5:41 PM INTERIM CONTROLLER I have discussed the care of Mr. Khanna with the resident/MULTIMEDIA INSTRUCTIONAL DESIGNER-PA team. Please see the team's documentation from today for further details as I reviewed pertinent history, physical exam, labs, and imaging and agree with the history, physical exam, assessment, and plan. I have personally seen and evaluated the patient and formulated his care plan as a team. Patient is a pleasant 75-year-old who has been seen in clinic due to symptomatic left inguinal hernia. 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 The patient has multiple medical comorbidities including ischemic cardiomyopathy essential hypertension and dyslipidemia and has been on anti-platelet therapy since receiving a drug-eluting stent in 2014 for active coronary artery disease. I personally examined the patient and confirmed treadwell aspects of the history and physical documented by the resident staff. Patient has a symptomatic left inguinal hernia and will benefit from hernia repair following preoperative visit for cardiac optimization. Patient is tentatively scheduled for surgery on 01/16 2021. documented in this encounter Plan of Treatment Upcoming Encounters Date Type Specialty Care Team Description 10/11/2022 Appointment Laboratory Medicine Natasha Mullins APRN, C.NRenetta, M.S.N. [address] [place] [address] [phone] (Joanie velázquez) 10/11/2022 Ancillary Procedure Cardiovascular Disease Natasha Cramer APRN, C.N.[place]lin., M.S.N. [address] [place] [phone] (Joanie velázquez) 10/11/2022 Appointment Cardiovascular Disease Natasha Mullins APRN, C.N.P., M.S.N. [address] [place] [phone] (Joanie velázquez) 10/12/2022 Office Visit Cardiovascular Disease Natasha Mullins APRN, C.N.P., M.S.N. [address] [place] [phone] (Wo rk) documented as of this encounter Visit Diagnoses Diagnosis Hernia Inguinal Left - Primary documented in this encounter Care Teams Flume Ride Operator Relationship Specialty Start Date End Date Elsewhere, Pcp PCP - General Family Medicine 10/25/18 documented as of this encounter
--- OUTSIDE RECORDS SUMMARY | 2022-08-27 11:25 | XMS_ITS | Encounter Summary ---
:1945 Author Organization [facility] Address [address] [place] [address] Care Team Providers Name Role Phone Elsewhere, Pcp Primary Care Provider Unavailable Reason for Visit Reason Comments Post Hospital Follow-up 01/16/2021 Left Inquinal Herni a Repair with mesh Outpatient (Routine) - Closed Specialty Diagnoses / Procedures Referred By Contact Refer red To Contact Steven Trotter M.D. [facility] [address] [place] [phone] Referral ID Status Reason Start Date Expiration Date Visits Requ ested Visits Authorized [id number] Closed 01/16/2021 01/16/2022 1 1 Encounter Details Date Type Department Care Team Description 01/28/2021 Clinical Communication Division of Trauma [place] , Post Hospital Critical Care and Steven Garcia M.D. Follow-up (01/16/2021 General Surgery in [address] [facility] Left Inquinal [place], [place] Hernia Repair with [place] [phone] mesh) [address] [facility] [phone] [place], [place] (Work) [phone] Social History Tobacco Use Types Packs/Day Years [...] or relatives? How often do you attend roman catholic or More than 4 times per year 10/15/2019 jehovah's witness services? Do you belong to any clubs or Yes 10/15/2019 organizations such as roman catholic groups, unions, fraternal or athletic groups, or [...] this encounter Miscellaneous Notes Telephone Encounter - Isabella Coleman R.N. - 01/28/2021 1:04 PM CDT Attempted to contact the patient twice today for post-hospitalization follow-up phone call. After confirming all information and verification of phone number, I requested a letter to be sent by [facility] assistant secretary. documented in this encounter Plan of Treatment Upcoming Encounters Date Type Specialty Care Team Description 10/11/2022 Appointment Laboratory Medicine Natasha Mullins APRN, C.N.P., M.S.N. [address] [place] [address] [phone] (Joanie velázquez) 10/11/2022 Ancillary Procedure Cardiovascular Disease Natasha Cramer APRN, C.N.P., M.S.N. [address] [place] [phone] (Joanie velázquez) 10/11/2022 Appointment Cardiovascular Disease Natasha Mullins APRN, C.N.P., M.S.N. [address] [place] [phone] (Joanie velázquez) 10/12/2022 Office Visit Cardiovascular Disease Natasha Mullins APRN, Radha.N.P., M.S.N. [address] [place] [address] [phone] (Joanie velázquez) documented as of this encounter Visit Diagnoses Not on filedocumented in this encounter Care Teams Chemical Handler Relationship Specialty Start Date End Date Elsewhere, Pcp PCP - General Family Medicine 10/25/18 documented as of this encounter
--- OUTSIDE RECORDS SUMMARY | 2022-08-27 11:25 | XMS_ITS | Encounter Summary ---
:1945 Author Organization [facility] Address [address] [place] [address] Care Team Providers Name Role Phone Elsewhere, Pcp Primary Care Provider Unavailable Reason for Referral Outpatient (Routine) - Closed Specialty Diagnoses / Procedures Referred By Contact Refer red To Contact Cardiovascular Disease Lauren Mullins [facility] VY Kaur C.NRenetta, M.S.N. [address] [place] [address] Referral ID Status Reason Start Date Expiration Date Visits Requ ested Visits Authorized [id number] Closed 10/15/2020 10/15/2021 1 1 utpatient (Routine) - Closed Specialty Diagnoses / Procedures Referred By Contact Refer red To Contact Diagnoses Chronic Systolic (Congestive) Heart Failure (HCC) Natasha Mullins [facility] Procedures Echo Transthoracic (TTE) Justin MCCLELLAN, M.S.N. [address] [place] [phone] Referral ID Status Reason Start Date Expiration Date Visits Requ ested Visits Authorized [id number] Closed 10/15/2020 10/15/2021 1 1 utpatient (Routine) - Closed Specialty Diagnoses / Procedures Referred By Contact Refer red To Contact Diagnoses Chronic Systolic ([facility]est[facility]) [facility]) [facility] 12 Lead Justin MCCLELLAN, M.S.N. [address] [place] [phone] Referral ID Status Reason Start Date Expiration Date Visits Requ ested Visits Authorized [id number] Closed 10/15/2020 10/15/2021 1 1 [employer] Reason for Visit Outpatient (Routine) - Closed Specialty Diagnoses / Procedures Referred By Contact Refer red To Contact Cardiovascular Disease [facility] VY Kaur C.N.P., M.S.N. [address] [place] [phone] Referral ID Status Reason Start Date Expiration Date Visits Requ ested Visits Authorized [id number] Closed 10/15/2019 10/14/2020 1 1 Encounter Details Date Type Department Care Team Description 10/15/2020 Office Visit Department of Chai Fagan, Cardiomyop athy Ischemic (Primary Dx); Cardiovascular VY Kaur, Chronic Syst olic (Congestive) Heart Failure (HCC); Medicine in [place], Justin, M .S.N. Atherosclerotic Heart Disease Of [place] Coronary Artery Without Angina Pectoris; [place] [address] [facility] Hyperlipidemia [address] [place] [phone] Social History Tobacco Use Types Packs/Day Years [...] or relatives? How often do you attend cheondoism or More than 4 times per year 10/15/2019 gnosticist services? Do you belong to any clubs or Yes 10/15/2019 organizations such as cheondoism groups, unions, fraternal or athletic groups, or [...] Sign Reading Time Taken Comments Blood Pressure 102/63 10/15/2020 12:45 PM HELIC[employer]TER [employer]CREWMAN Pulse 69 10/15/2020 12:45 PM HELIC[employer]TER [employer] AIRCREWMAN Temperature - - Respiratory Rate - - Oxygen Saturation - - Inhaled Oxygen Concentration - - Weight 76.3 kg (168 lb 3.4 oz) 10/15/2020 12:43 PM HELIC[employer] Height 175.3 cm (5' 9.02) 10/15/2020 12:43 PM HELIC[employer]TER [employer] AIRCREWMAN Body Mass Index 24.83 10/15/2020 12:43 PM HELIC[employer]TER [employer] AIR[employer] documented in this encounter Progress Notes Natasha Mullins APRN, C.N.P., M.S.N. - 10/15/2020 1:00 PM CST Heart failure Established Note Referring Provider: Natasha Mullins APRN, C.N.P., M.S.N. 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 ??Ejection fraction was 30% to 35% December of 2015 by stress echocardiogram; negative for ischemia. ??Ejection fraction increased to 50% October 2018. I last met with the patient on October 15, 2020. He continued to do well [place] heart Association functional class 1 to 2 with a stable ejection fraction 51%. He was euvolemic. Since last visit patient met with Hematology. [place] to be doing well from a lymphoma standpoint. He met with Endocrinology as well. Ultrasound revealed several prominent lymph nodes on his neck. She recommended six month follow-up. The patient presents alone. Advises he does not have dyspnea as long as he warms up before he does brisk exercise. If he gets up rapidly and then rapidly climbs steps he would become dyspneic but that is stable. Denies palpitations, chest discomfort, dizziness, lightheadedness, syncopal episodes, falls, paroxysmal nocturnal dyspnea, orthopnea, or edema. Patient carries water and sips out all day. Does not think he takes more than 1500 cc per day.Patient is following appropriate precautions. Althoughhe offers a person a person has to live. REVIEW OF SYSTEMS The following portions of the patient's history were reviewed and updated as appropriate: allergies,current medications, family history, medical history, social history and surgical history. PAST MEDICAL/SURGICAL HISTORY 1. ??ST-elevation anterior myocardial infarction, August 2015. A. ??Drug-eluting stents to the proximal and mid LAD. B. ??80% first diagonal not approached. C. 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 2. ??Ischemic cardiomyopathy. ??LV ejection fraction 30% to 35%. ?? A. ??Ejection fraction 43% by visual estimate, April 14, 2016. B. ??Ejection fraction 41%, October 14, 2016. C. ??EF 40% to 45%, October 2017. D. ??EF 50% October 2018. E. EF 51% October 2019. F. Ejection fraction 52% October 2020. 3. ??Hyperlipidemia. 4. ??Asthma. 5. Thyroid cancer; Status post parathyroid resection, subsequent iatrogenic hypothyroidism. A. Status post modified dissection left neck April 17, 2019. 6. ??History of rotator cuff tear with chronic right shoulder discomfort. ? OBJECTIVE Vitals: 10/15/20 1243 10/15/20 1245 BP: 107/69 102/63 BP Location: Left arm Left arm Patient Position: Sitting Standing Cuff Size: Regular Regular Pulse: 66 69 Weight: 76.3 kg Height: 175.3 cm Wt 76.3 kg Ht 175.3 cm Body mass index is 24.83 kg/m??. Body surface area is 1.93 meters squared. ALLERGIES Allergies Allergen Reactions ??? Clindamycin Other (see comments) Unknown. ??? Iodinated Contrast Media Itching Possible adverse reaction to iodinated contrast given at [facility] in 2006. Visi [address] scan on 12/12/13. No reaction noted. ??? Mold Other (see comments) Unknown. ??? Penicillins Other (see comments) Unknown. ??? Pneumococcal Vaccine Other (see comments) Headache and body ache Headache and body ache ??? Shellfish Containing Products Nausea And Vomiting HOME MEDICATIONS Current Medications: ??? acetaminophen (Tylenol Extra Strength) 500 mg tablet, Take 500 mg by mouth every 6 (six) hours as needed for pain. ??? albuterol (PROVENTIL HFA,VENTOLIN HFA) 90 mcg/actuation inhaler, Inhale 1-2 puffs as needed for wheezing or shortness of breath. ??? aspirin [address] tablet, Take 81 mg by mouth daily. Take for life. ??? calcium carbonate (OS-ARLEEN) 1,250 mg (500 mg calcium) chewable tablet, Chew 1 tablet 2 (two) times a day as needed. Heartburn. ??? cetirizine (ZyrTEC) 10 mg tablet, Take 10 mg by mouth daily. ??? fluticasone-salmeterol (ADVAIR DISKUS) 250-50 mcg/dose diskus inhaler, Inhale 1 puff daily. ??? levothyroxine (SYNTHROID, LEVOTHROID) 200 mcg tablet, Take 1 tablet (200 mcg total) by mouth daily. ??? montelukast (SINGULAIR) 10 mg tablet, Take 1 tablet by mouth at bedtime. ??? multivitamin (multivitamin) tablet, Take 1 tablet by mouth daily. ??? carvediloL (COREG) 25 mg tablet, Take 1 tablet (25 mg total) by mouth 2 (two) times a day. ??? clopidogreL (PLAVIX) 75 mg tablet, Take 1 tablet (75 mg total) by mouth daily. ??? lisinopriL (PRINIVIL,ZESTRIL) 40 mg tablet, Take 1 tablet (40 mg total) by mouth daily. ??? nitroglycerin (NITROSTAT) 0.4 mg SL tablet, Place 1 tablet (0.4 mg total) under the tongue as needed for chest pain. May repeat every 5 x 2. If no relief with 3rd tab call 911. ??? rosuvastatin (Crestor) 40 mg tablet, Take 1 tablet (40 mg total) by mouth daily. PHYSICAL EXAMINATION General: Pleasant gentleman in no apparent acute distress Vessels: External neck veins are elevated to 20 cm of water, internal 7 cm of water. No carotid bruits. Lungs: Clear without rales, rhonchi, or wheeze. Heart:: Distant heart tones but regular rate and rhythm with normal S1 and S2. No S3, S4, thrill, oror heave appreciated. Soft 1-2/6 systolic murmur noted at the left sternal border. Abdomen: No abdominal bruits or hepatomegaly. Extremities: No lower extremity edema or clubbing. Dorsalis pedis pulses are four four bilaterally. Skin: Warm, dry, without diaphoresis or cyanosis. Musculoskeletal: Able to get on off the exam table without assistance. Neuro: Alert and able to give an adequate history. ECHOCARDIOGRAM 1. Borderline enlarged left ventricular chamber size. Calculated ejection fraction 52 %. 2. Regional wall motion abnormalities were present (see wall motion graphics). 3. Grade 1a/3 left ventricular diastolic dysfunction, consistent with mildly elevated left ventricular filling pressure at rest. 4. Mildly reduced right ventricular systolic function (predominantly reduced at the apex). 5. Estimated right ventricular systolic pressure 33 mmHg (systolic blood pressure 100 mmHg). 6. Mildly calcified aortic valve with mild aortic regurgitation. Trivial aortic stenosis (peak AV velocity 2.2 m/sec; aortic valve systolic mean gradient 11 mmHg). 7. Mildly enlarged inferior vena cava size with reduced inspiratory collapse (<50%). 8. Compared to the report of 10/15/2019 the following changes have occurred: there has been a slightreduction in RV systolic function at the apex. ASSESSMENT / PLAN #1 Cardiomyopathy Ischemic I reviewed the patient's echocardiogram with him. It is stable. I recommended he continue with carvedilol, lisinopril indefinitely. #2 Chronic Systolic (Congestive) Heart Failure (HCC) Patient is [place] heart Association functional class 1 to 2. Euvolemic. Does not require diuretic. #3 Atherosclerotic Heart Disease Of [place] Coronary Artery Without Angina Pectoris Asymptomatic. Recommended he continue with Plavix and aspirin. #4 Hyperlipidemia Total cholesterol 198, HDL 75, LDL 112, triglycerides 56. Stable on Crestor 40 mg per day. # 5. Hyponatremia Sodium low at 127. Patient is not on any medications that would drop his sodium. I recommended he decrease his fluid intake by at least cup. He is to drink only to thirst. I have asked him to let me know when he returns to see endocrinology in November. Will recheck his sodium then. # 6. COVID-19 precautions I shared with him the CDC information on age and risk for poor outcomes with RICCARDOID. At his age, he has an 8 times higher risk of hospitalization than 18 to [id number] and a 220 times higher risk of . He also has multiple comorbidities, which were outlined for him, that increase his risk for poor outcome. He should continue strict adherence to COVID-19 prevention strategies. Follow-up one year. Natasha Fagan APRN, C.N.P., M.S.N. 10/15/20 [employer] documented in this encounter Plan of Treatment Upcoming Encounters Date Type Specialty Care Team Description 10/11/2022 Appointment Laboratory Medicine Natasha Mullins APRN, C.NRenetta, M.S.N. [address] [place] [phone] (Joanie velázquez) 10/11/2022 Ancillary Procedure Cardiovascular Disease Natasha Cramer APRN, Radha.NLibrado., M.S.N. [address] [place] [phone] (Joanie velázquez) 10/11/2022 Appointment Cardiovascular Disease Natasha uMllins APRN, C.NLibrado., M.S.N. [address] [place] [phone] (Joanie velázquez) 10/12/2022 Office Visit Cardiovascular Disease Natasha Mullins APRN, C.NRenetta, M.S.N. [address] [place] [phone] (Joanie velázquez) Scheduled Referrals Name Type Priority Associated Order Schedule Diagnoses Cardiovascular Disease Outpatient Referral Routine Expected: office visit (clinic) 2020 (Approximate), Expires: 10/15/2022 documented as of this encounter Results ECG 12 Lead (10/16/2021 10:47 AM HELIC[employer]) P athologist Signature Ventricular Rate 69 BPM MUSE ECG/Min [place] Interval 192 ms MUSE QRSD Interval 156 ms MUSE QT Interval 416 ms MUSE QTC Interval 445 ms MUSE P [place] 44 degrees MUSE R [place] -67 degrees MUSE T Wave [place] 36 degrees MUSE Specimen Anatomical Collection Method Collection Time Receive d Time (Source) Location / / Volume Laterality 10/16/2021 10:47 10/16/2021 AM [employer] 10:52 AM [employer] AIRCREWMAN Impressions MUSE - 10/16/2021 10:52 AM [employer]WMAN Sinus rhythm Premature ventricular complexes Right bundle branch block with secondary ST-T abnormalities Left anterior fascicular block Bifascicular block Anteroseptal infarct When compared with ECG of 15-OCT-2020 11 :32, Premature ventricular complexes are now present Reviewed by WALESKA Thornton Narrative This result has an attachment that is no t available. Procedure Note Hi Khan M.D. - 10/16/2021Formatt ing of this note might be different from the original. IMPRESSION: Sinus rhythm Premature ventricular complexes Right bundle branch block with secondary ST-T abnormalities Left anterior fascicular block Bifascicular block Anteroseptal infarct When compared with ECG of 15-OCT-2020 11 :32, Premature ventricular complexes are now present Reviewed by WALESKA Thornton Natasha Paula Rylan MCCLELLAN, C.N.P., M.S.N. ECG ORDERA [facility] Performing Organization Address City/State/ZIP Code Phon e Number MUSE MUSE NA (TTE) 2D ECHO DOPPLER COLOR (10/16/2021 10:35 AM HELIC[employer]CREWMAN) Patholo gist Method Time Signature Ejection Fraction 54 [...] / / Volume Laterality 10/16/2021 9:03 AM HEL[employer]WMAN Impressions 10/16/2021 10:58 AM HEL[employer]CREWMAN LEFT VENTRICLE: ??Normal left ventricular chamber size. [...] effusion. For the complete report, see the CV Properties Documents. Narrative 10/16/2021 10:58 AM HELIC[employer]TER [employer] AIRCREWMAN For the complete report, see the CV Properties Documents. Final Impressions 1. Normal left ventricular [...] original. For the complete report, see the CV Properties Documents. Final Impressions 1. Normal left ventricular [...] Natasha Fagan APRN, C.N.P., M.S.N. CV ECHO [place] OCEDURES Lipid Panel (10/16/2021 8:02 AM HELIC[employer]TER [employer] AIRCREWMAN) athologist Signature Cholesterol, 196 mg/dL 10/16/2021 DTL Total 9:09 AM HELIC[employer]CREWMAN Comment: ----REFERENCE VALUE---- Desirable: < 200 Borderline high: 200 - 239 High: > or = 240 Triglycerides 59 mg/dL 10/16/2021 9:09 AM HELIC[employer]TER [employer] AIRCREWMAN DTL Comment: ----REFERENCE VALUE---- Normal: <150 Borderline high: 150-199 High: 200-499 Very high: > or =500 Cholesterol, HDL, S 75 >=40 mg/dL 10/16/2021 9:09 AM HELIC[employer]TER [employer] AIRCREWMAN DTL Calculated LDL 109 mg/dL 10/16/2021 9:09 AM HELIC[employer]TER [employer] AIRCREWMAN DT L Comment: ----REFERENCE VALUE---- Desirable: <100 mg/dL Above Desirable: 100-129 mg/dL Borderline High: 130-159 mg/dL High: 160-189 mg/dL Very High: >=190 mg/dL Cholesterol, Non-HDL, Calculated 121 mg/dL 021 9:09 AM HELIC[employer]TER UT[employer] AIRCREWMAN DTL Comment: ----REFERENCE VALUE---- Desirable: <130 Above Desirable: 130-159 Borderline high: 160-189 High: 190-219 Very high: > or =220 Specimen Anatomical Collection Method Collection Time Receive d Time (Source) Location / / Volume Laterality Blood (Blood, 10/16/2021 8:02 AM 10/16/20 8:49 Venous) [employer] AM [employer]CREW[employer] Natasha Fagan APRN, C.N.P., M.S.N. LAB BLOOD ADD-ON Performing Organization Address City/State/ZIP Code Phon e Number [facility] - [address] [place], [place] [address] [place] [address] [facility] [address] CBC without Differential (10/16/2021 8:02 AM HELIC[employer]WMAN) athologist Signature Hemoglobin 14.1 13.2 - 10/16/2021 DTL 16.6 g/dL 8:47 AM [employer] Hematocrit 42.2 38.3 - 10/16/2021 DTL 48.6 % 8:47 AM [employer] Erythrocytes 4.58 4.35 - 10/16/2021 DTL 5.65 8:47 AM [employer] x10(12)/L MCV 92.1 78.2 - 10/16/2021 DTL 97.9 fL 8:47 AM [employer] RBC Distrib Width 13.0 11.8 - 10/16/2021 DTL 14.5 % 8:47 AM [employer]IC[employer] Platelet Count 232 135 - 317 10/16/2021 DTL x10(9)/L 8:47 AM [employer] Leukocytes 5.4 3.4 - 9.6 10/16/2021 DTL x10(9)/L 8:47 AM [employer]IC[employer] Specimen Anatomical Collection Method Collection Time Receive d Time (Source) Location / / Volume Laterality Blood (Blood, 10/16/2021 8:02 AM 10/16/20 8:34 Venous) [employer] AM [employer]CREWMAN Radha Eastman APRN.N.[place]., M.S.N. LAB BLOOD ADD-ON Performing Organization Address City/[facility] Phon e Number [facility] - [address] AST (Aspartate Aminotransferase) (10/16/2021 8:02 AM HELIC[employer]CREWMAN) Patholo gist Method Time Signature Aspartate 23 8 - 48 10/16/2021 DTL Aminotransferase U/L 9:09 AM HELIC[employer]TER [employer] AIRCREWMAN (AST), S Specimen Anatomical Collection Method Collection Time Receive d Time (Source) Location / / Volume Laterality Blood (Blood, 10/16/2021 8:02 AM 10/16/20 21 8:49 Venous) [employer]CREWMAN AM [employer]CREWMAN Radha Eastman APRN.N.P., M.S.N. LAB BLOOD ADD-ON Performing Organization Address [facility] Phon e Number [facility] - [address] [place] [address] [facility] (ABNORMAL) Basic Metabolic Panel (10/16/2021 8:02 AM HELIC[employer]CREWMAN) P athologist Signature Potassium, S 4.4 3.6 - 5.2 10/16/2021 DTL mmol/L 9:09 AM HEL[employer] Sodium, S 131 (L) 135 - 145 10/16/2021 DTL mmol/L 9:09 AM [employer] Chloride, S 95 (L) 98 - 107 10/16/2021 DTL mmol/L 9:09 AM [employer]MAN Bicarbonate, S 25 22 - 29 10/16/2021 DTL mmol/L 9:09 AM [employer] Anion Gap 11 7 - 15 10/16/2021 DTL 9:09 AM [employer]WMAN BUN (Blood Urea 18 8 - 24 10/16/2021 DTL Nitrogen), S mg/dL 9:09 AM [employer]WMAN Creatinine 0.83 0.74 - 10/16/2021 DTL 1.35 mg/dL 9:09 AM [employer]WMAN eGFR-Non 84 >=60 10/16/2021 DTL Black/ mL/min/BSA 9:09 AM HELIC[employer]CREWMAN Nauruan Comment: ----ADDITIONAL INFORMATION---- Estimated GFR calculated using the 2009 CKD_EPI creatinine equation. eGFR-Black/ >90 >=60 mL/min/BSA 2020 9:09 AM HELIC[employer]TER [employer] AIRCREWMAN DTL Comment: ----ADDITIONAL INFORMATION---- Estimated GFR calculated using the 2009 CKD_EPI creatinine equation. Calcium, Total, S 8.9 8.8 - 10.2 mg/dL 10/16/2021 9:09 AM HELIC[employer]TER [employer] AIRCREWMAN DTL Glucose, S 102 70 - 140 mg/dL 10/16/2021 9:09 AM HELIC[employer]CREWMAN D TL Specimen Anatomical Collection Method Collection Time Receive d Time (Source) Location / / Volume Laterality Blood (Blood, 10/16/2021 8:02 AM 10/16/20 8:49 Venous) [employer] AM [employer] Natasha Fagan APRN, C.N.P., M.S.N. LAB BLOOD ADD-ON Performing Organization Address City/State/ZIP Code Phon e Number [facility] - [address] [place], [place] [address] [place] [address] [facility] [address] documented in this encounter Visit Diagnoses Diagnosis Cardiomyopathy Ischemic - Primary Chronic Systolic (Congestive) Heart Fail ure (HCC) Atherosclerotic Heart Disease Of [place] Coronary Artery Without Angina Pectoris Hyperlipidemia Chronic Systolic (Congestive) Heart Fail ure (HCC) documented in this encounter Care Teams Analytic Programmer Relationship Specialty Start Date End Date Elsewhere, Pcp PCP - General Family Medicine 10/25/18 documented as of this encounter
--- OUTSIDE RECORDS SUMMARY | 2022-08-27 11:25 | XMS_ITS | Encounter Summary ---
:1945 Author Organization [facility] Address [address] [place] [phone] Care Team Providers Name Role Phone Elsewhere, Pcp Primary Care Provider Unavailable Encounter Details Date Type Department Care Team Description 01/14/2021 Lab Department of Laboratory [place] Mccurdy, Hernia Inguinal Left Medicine and Pathology, D.O. [facility] in [address] [place] [phone] [place] [phone] Social History Tobacco Use Types Packs/Day Years [...] Natasha Mullins APRN, C.N.P., M.S.N. [address] [place] [phone] (Wo rk) 10/11/2022 Ancillary Procedure Cardiovascular Disease Natasha Cramer APRN, C.NRenetta, M.S.N. [address] [place] [phone] (Wo rk) 10/11/2022 Appointment Cardiovascular Disease Natasha Mullins APRN, C.NRenetta, M.S.N. [address] [place] [phone] (Wo rk) 10/12/2022 Office Visit Cardiovascular Disease Natasha Mullins APRN, C.NRenetta, M.S.N. [address] [place] [phone] (Wo rk) documented as of this encounter Procedures Procedure Name Priority Date/Time Associated Diagnosis Comme nts SARS CORONAVIRUS-2, Routine 01/14/2021 10:02 AM Hernia Inguina l Left Results for this PCR FOREIGN STUDENT ADVISER TEACHER procedure are i n the results section. documented in this encounter Results SARS Coronavirus-2, PCR Asymptomatic (01/14/2021 10:02 AM FOREIGN STUDENT ADVISER TEACHER) [facility] Method Time Signature SARS Swab, 01/14/2021 DTL Coronavirus-2 Nasopharynx 11:55 PM Source FOREIGN STUDENT ADVISER TEACHER SARS Undetected Undetected 01/14/2021 DTL Coronavirus-2 11:55 PM , PCR FOREIGN STUDENT ADVISER TEACHER Comment: SARS-CoV-2 RNA absent. This result does not rule out COVID-19 in the patient, as the sensitivity of the test depends o n the timing of the specimen collection and quality of the specimen. Result should be correlated with patient's history and clinical presentat ion. ----ADDITIONAL INFORMATION---- This test was developed and its performa nce characteristics determined by [facility] in a manner co nsistent with CLIA requirements. Independent review by the U.S. Food and Drug Administration is pending. Visit the CDC website: https://www.cdc.gov/coronavirus/ ?? for the most recent guidelines on [place] virus testing. Fact Sheet for Healthcare Providers: (https://www.Wabeebwa/it-mmfil es/ Provider_Fact_Sheet_for_[place]_COVI D-19.pdf) Fact Sheet for Patients: (https://www.[place]abeebwa/it-mmfil es/ Patient_Fact_Sheet_for_COVID-19.pdf) Specimen Anatomical Collection Method Collection Time Receive d Time (Source) Location / / Volume Laterality Varies 01/14/2021 10:02 01/14/2021 (Nasopharynx) AM FOREIGN STUDENT ADVISER TEACHER 11:13 AM FOREIGN STUDENT ADVISER TEACHER [place] Mccurdy D.O. LAB MICROBIOLOGY - GENERAL O RDERABLES Performing Organization Address City/State/[facility] Code Phon e Number [facility] - [address] [place], [place] [address] [facility] [place] [address] Laboratories-[facility] [address] documented in this encounter Visit Diagnoses Diagnosis Hernia Inguinal Left documented in this encounter Additional Health Concerns Infection Onset Date Last Indicated Resolved Time COVID19 Pending 01/14/2021 01/14/2021 01/14/2021 11:55 PM FOREIGN STUDENT ADVISER TEACHER documented as of this encounter Care Teams Small Boat Engineer Relationship Specialty Start Date End Date Elsewhere, Pcp PCP - General Family Medicine 10/25/18 documented as of this encounter
--- OUTSIDE RECORDS SUMMARY | 2022-08-27 11:25 | XMS_ITS | Encounter Summary ---
:1945 Author Organization [facility] Address [address] [place] [address] Care Team Providers Name Role Phone Elsewhere, Pcp Primary Care Provider Unavailable Encounter Details Date Type Department Care Team Description 01/16/2021 Anesthesia Event RST ROMB MAIN OR Dian Palumbo M.D., Ph.D. [address] [place] [phone] [id number] [address]ND [facility] Brandon Rossi M.D. [address] [place] [phone] [place] [phone] Anesthesia Record Procedure Summary Procedure Name Responsible Anesthesia Start Anesthesia Stop Time Anesthesiologist Time Repair Hernia Dian Palumbo M.D., Ph.D. 01/16/21 0753 1057 Inguinal With Mesh (Left: Groin) Events Date Time Event Comment 01/16/2021 0753 An Start Machine/Equipmen t Checked Infection Precautions Foll owed Procedure/Site Verified NPO Sta tus Verified Supine Standard ASA Mon itors Applied 0807 An Induction 0812 An Intubation 0813 Turnover to Proceduralist 0835 Proc Start 1037 Proc Fin 1038 Turnover to ANE Staff 1047 Airway Removal Criteria Met 1047 Extubation/Airway Removed 1048 an stop data 1057 An End I completed my h andoff to the receiving staff during [facility] we 1. Identified the patient 2. Ident ified the responsible provider 3. Revi ewed the pertinent medical history 4. Discussed the surgical course 5. Review ed intra-op anesthesia management and i ssues during anesthesia 6. Set expectati ons for post-procedure period 7. Allowe d opportunity for questions and ac knowledgement of understanding. Name Total fentanyl injection 50 mcg/mL 200 mcg lidocaine 2% (mg) injection 100 mg propofol 10 mg/mL 120 mg vecuronium 10 mg injection 15 mg phenylephrine 100 mcg/mL injection 200 mcg ePHEDrine PF 5 mg/mL syringe injection 50 mg ondansetron 4 mg/2 mL injection 4 mg sugammadex 100 mg/mL injection 150 mg glycopyrrolate 0.2 mg/mL injection 0.2 mg heparin (porcine) injection 5,000 Units 5,000 Units vancomycin 1,000 mg in NaCl 0.9% 250 mL (VANCOCIN) IVP B 1 g ketorolac 30 mg injection 15 mg Lactated Ringers Free Drip 800 mL Agents No agents on file. Blood No blood administrations on file. Lines, Drains, and Airways Type Details Placement Removal (RETIRED) Incision 04/17/19; 932; Neck; 04/17/19932 by 1418 by Left; dermbond; 08/04/21 Elizabeth Dahl, [facility] (Removed by background R.NAni mueller completion utility); Automated B [facility] Job 1418 (Removed by background completion utility) Peripheral IV Placement Date: 01/16/21 0704 by 01/16/21 1605 b y 01/16/21; Placement Nani Wu Di ane K, R.N. Time: 703; Catheter Size: 20 G; Orientation: Left; Location: Forearm; Site Prep: Chlorhexidine (Preferred); Technique: Anatomical landmarks; Insertion Attempts: 1; Removal Date: 01/16/21; Removal Time: 1605 ETT Placement Date: 01/16/21 0812 by 01/16/21 1047 b y 01/16/21; Placement Hayley Killian Saenz, Christianne L, Time: 08 (created via R.N. R.N. procedure documentation); Mask Ventilation: Easy mask; Type: Standard ETT; Single Lumen Tube Size: 7.5 mm; Cuffed: Yes; Blade Size: Tomlin 2; Location: Oral; Removal Date: 01/16/21; Removal Time: 1047 (RETIRED) Incision 01/16/21; 1028; Groin; 01/16/21 1028 by 08/04 1418 by Left; 08/04/21 (Removed Orville Hankins R.N. Ma [id number] by background completion d, Sche duling utility); 1418 (Removed Automate d Batch Job by background completion utility) documented in this encounter Social History Tobacco [...] or relatives? How often do you attend sabianist or More than 4 times per year 10/15/2019 anglican services? Do you belong to any clubs or Yes 10/15/2019 organizations such as sabianist groups, unions, fraternal or athletic groups, or [...] encounter OR Notes Anesthesia Postprocedure Evaluation - Kosta Esparza M.D. - 01/16/2021 11:30 AM CST Patient: Levi Khanna Procedure Summary Date: 01/16/21 Room / Location: [address] [facility] / [facility] [place], [place] Anesthesia Start: 0753 Anesthesia Stop: 105 Procedure: Repair Hernia Inguinal With Mesh (Left Groin) Diagnosis: Hernia Inguinal Left (Left inguinal hernia.) Providers: Katty Clarke M.D. Responsible Provider: Dian Palumbo M.D., Ph.D. Anesthesia Type: general ASA Status: 3 Anesthesia Type: general Last vitals Vitals Value Taken Time BP 112/75 01/16/21 1100 Temp 36.7 ??C 01/16/21 1054 Pulse 85 01/16/21 1114 Resp 15 01/16/21 1057 SpO2 90 % 01/16/21 1114 Vitals shown include unvalidated device data. Please reference Vitals flowsheet for most recent vital signs. Anesthesia Post Evaluation Patient Disposition: dismissal Cardiovascular status: hemodynamics (HR & BP) acceptable Respiratory status: patent airway with spontaneous effort Temperature: normothermic Oxygen requirements: room air Level of consciousness: awake Pain score: pain adequately controlled and/or at baseline Post Op nausea/vomiting: none Hydration status: euvolemic Comments: Patient underwent a left inguinal hernia repair, pain is adequately controlled, no N/V, CP, SOB, paresthesia, eye pain or blurriness. ITURE REPRODUCER Anesthesia Procedure Notes - Hayley Killian R.N., SEAN - 01/16/2021 8:24 AM CSTAssociated Order(s): Airway Airway Date/Time: 01/16/2021 8:12 AM Performed by: Hayley Killian R.N., SOPHIEN Authorized by: Brandon Rossi M.D. Patient location during procedure: OR / Procedure Area PROCEDURE DETAILS: Mask difficulty assessment: easy mask Final airway type: direct laryngoscopy, intubation Laryngeal Manipulation: no Final airway difficulty of direct laryngoscopy (DL): 0-easy Final best view of glottic structures - Cormack/Lehane Score: grade 2A ETT location: oral Adult blade type: Tomlin 2 Adult tube size: 7.5 Adult ETT distance at teeth/gum: 25 Oral tube type: standard ETT Cuffed: yes Airway confirmation: bilateral breath sounds, positive ETCO2 and bilateral chest rise Other previous techniques attempted: none PRE PROCEDURE DETAILS: Pre evaluation for airway management: procedure Urgency: elective Preop assessment of probable difficulty: no difficulty anticipated Preoxygenation: bag valve mask SEDATION / ANESTHESIA Anesthesia method: anesthesia POST PROCEDURE DETAILS: Procedure outcome: successful Airway event: no complications ITURE REPRODUCER Anesthesia Preprocedure Evaluation - Brandon Rossi M.D. - 01/16/2021 7:53 AM CST Preprocedure Anesthesia & H&P Assessment Procedure Summary Date/Time: 01/16/21814 Procedure: REPAIR HERNIA INGUINAL WITH MESH. (Left ) Diagnosis: Hernia Inguinal Left [K40.90] Pre-op diagnosis: Left inguinal hernia. Location: RM OR [address] / [facility] [place], [place] Providers: Gigi Quiroga M.D., Ph.D. Pertinent components of the patient's history including current problem list, medical history, surgical history, family history, social history, medications and allergies were reviewed. Present illnessand pre-op diagnosis were confirmed. The planned surgery / procedure was verified with the patient /legal guardian. 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 ??Ejection fraction was 30% to 35% December of 2015 by stress echocardiogram; negative for ischemia. ??Ejection fraction increased to 50% October 2018.? I last met with the patient on October 15, 2020. He continued to do well [place] heart Association functional class 1 to 2 with a stable ejection fraction 51%. He was euvolemic. ?? Since last visit patient met with Hematology. [place] to be doing well from a lymphoma standpoint. He met with Endocrinology as well. Ultrasound revealed several prominent lymph nodes on his neck. She recommended six month follow-up. ?? The patient presents alone. Advises he does [...] a person a person has to live. ?PAST MEDICAL/SURGICAL HISTORY 1. ??ST-elevation anterior myocardial infarction, [...] October 2017. D. ??EF 50% October 2018. E.?EF 51% October 2019. F. Ejection fraction 52% October 2020. ??3. ??Hyperlipidemia. 4. ??Asthma. 5. Thyroid cancer; Status post parathyroid resection, subsequent iatrogenic hypothyroidism. ?A.?Status post modified dissection left neck April 17, 2019.?? 6. ??History of rotator cuff tear with chronic right shoulder discomfort. ?#1 Cardiomyopathy Ischemic I reviewed the patient's echocardiogram with him. It is stable. I recommended he continue with carvedilol, lisinopril indefinitely. #2 Chronic Systolic (Congestive) Heart Failure (HCC) Patient is [place] heart Association functional class 1 to 2. Euvolemic. Does not require diuretic. 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 Recommended [...] in November. Will recheck his sodium then. #6 Inguinal Hernia for Repair on January 16, 2021 ANESTHETIC PLANS GETA Induction- Fentanyl, Lidocaine, Propofol, Vecuronium Maintenance- Sevoflurane, Narcotic Access 1 PIV Monitors- ASA monitors and Temp Disposition- Extubated to PACU then home Patient seen and allergies reviewed, anesthesia plan and risks discussed directly with patient /legal guardian or through an reservations sales agent. Risks/Benefits/Alternatives of Blood transfusion discussed with patient / legal guardian, including an opportunity to ask questions and/or decline some or all transfusion therapies. The patient / legalguardian consented to the use of all blood products, as deemed medically necessary Approval to Proceed: approved for anesthesia ITURE REPRODUCER documented in this encounter Plan of Treatment Upcoming Encounters Date Type Specialty Care Team Description 10/11/2022 Appointment Laboratory Medicine Natasha Mullins APRN, C.N.P., M.S.N. [address] [place] [address] [phone] (Joanie velázquez) 10/11/2022 Ancillary Procedure Cardiovascular Disease Natasha Cramer APRN, Radha.N.P., M.S.N. [address] [place] [address] [phone] (Joanie velázquez) 10/11/2022 Appointment Cardiovascular Disease Natasha Mullins APRN, Radha.N.P., M.S.N. [address] [place] [address] [phone] (Joanie velázquez) 10/12/2022 Office Visit Cardiovascular Disease Natasha Mullins APRN, Radha.N.P., M.S.N. [address] [place] [address] [phone] (Joanie velázquez) documented as of this encounter Procedures Procedure Name Priority Date/Time Associated Comments Diagnosis LDA ANE ENDOTRACHEAL Routine 01/16/2021 8:24 AM R esults for this AIRWAY FURNITURE REPRODUCER procedure are i n the results section. documented in this encounter Results LDA ANE ENDOTRACHEAL AIRWAY (01/16/2021 8:24 AM FURNITURE REPRODUCER) Narrative Hayley Killian R.N., CCRN - 01/16 8:24 AM FURNITURE REPRODUCER Hayley Killian R.N., CCRN ? 01/16/2021 ??9:13 AM Airway Date/Time: 01/16/2021 8:12 AM Performed by: Hayley Killian R.N. , CCRN Authorized by: Brandon Rossi M.D. Patient location during procedure: OR / Procedure Area PROCEDURE DETAILS: Mask difficulty assessment: easy mask Final airway type: direct laryngoscopy, intubation Laryngeal Manipulation: no ?? Final airway difficulty of direct laryng oscopy (DL): 0-easy Final best view of glottic structures - Cormack/Lehane Score: grade 2A ETT location: oral Adult blade type: Tomlin 2 Adult tube size: 7.5 Adult ETT distance at teeth/gum: 25 Oral tube type: standard ETT Cuffed: yes Airway confirmation: bilateral breath so unds, positive ETCO2 and bilateral chest rise Other previous techniques attempted: non e PRE PROCEDURE DETAILS: Pre evaluation for airway management: pr ocedure Urgency: elective Preop assessment of probable difficulty: no difficulty anticipated Preoxygenation: bag valve mask SEDATION / ANESTHESIA Anesthesia method: anesthesia POST PROCEDURE DETAILS: ? Procedure outcome: successful ?? Airway event: no complications Brandon Rossi M.D. ANESTHESIA ORDERABLES documented in this encounter Visit Diagnoses Not on filedocumented in this encounter Administered Medications Inactive Administered Medications - up to 3 most recent administrations Medication Order MAR Action Action Date Dose Rate Site ePHEDrine (PF) injection Given 01/16/2021 8:49 AM FURNITURE REPRODUCER 5 mg intravenous, As needed, Starting on Tue01/16/21 at 0810, Anesthesia Intra-op Given 01/16/2021 8:43 AM FURNITURE REPRODUCER 5 mg Given 01/16/2021 8:31 AM FURNITURE REPRODUCER 5 mg fentaNYL injection (SUBLIMAZE) Given 01/16/2021 10:37 AM FURNITURE REPRODUCER 25 mcg intravenous, As needed, Starting on Tue01/16/21 at 0808, Anesthesia Intra-op Given 01/16/2021 10:06 AM FURNITURE REPRODUCER 25 mcg Given 01/16/2021 9:27 AM FURNITURE REPRODUCER 25 mcg glycopyrrolate injection (ROBINUL) Given 01/16/2021 8:21 AM FURNITURE REPRODUCER 0.2 mg intravenous, As needed, Starting on Tue01/16/21 at 0821, Anesthesia Intra-op heparin (porcine) injection 5,000 Units Given 01/16/2021 8:19 AM FURNITURE REPRODUCER 5,000 Units 5,000 Units, subcutaneous, Once, On Tue01/16/21 at 0715, For 1 dose, Intra-Op, Administer prior to induction of anesthesia. ketorolac injection (TORADOL) Given 01/16/2021 10:14 AM FURNITURE REPRODUCER 15 mg As needed, Starting on Tue01/16/21 at 1014, Anesthesia Intra-op lactated ringers New Bag 01/16/2021 7:56 AM FURNITURE REPRODUCER intravenous, Continuous Infusion: Per Instructions PRN, Starting on Tue01/16/21 at 0756, Anesthesia Intra-op lidocaine (PF) (cardiac) injection Given 01/16/2021 8:08 AM FURNITURE REPRODUCER 100 mg intravenous, As needed, Starting on Tue01/16/21 at 0808, Anesthesia Intra-op ondansetron (PF) injection (ZOFRAN) Given 01/16/2021 10:32 AM FURNITURE REPRODUCER 4 mg intravenous, As needed, Starting on Tue01/16/21 at 1032, Anesthesia Intra-op phenylephrine injection Given 01/16/2021 8:49 AM FURNITURE REPRODUCER 50 mcg intravenous, As needed, Starting on Tue01/16/21 at 0813, Anesthesia Intra-op Given 01/16/2021 8:43 AM FURNITURE REPRODUCER 50 mcg Given 01/16/2021 8:15 AM FURNITURE REPRODUCER 50 mcg propofoL injection (DIPRIVAN) Given 01/16/2021 10:35 AM FURNITURE REPRODUCER 20 mg intravenous, As needed, Starting on Tue01/16/21 at 0808, Anesthesia Intra-op Given 01/16/2021 8:08 AM FURNITURE REPRODUCER 100 mg sugammadex injection (BRIDION) Given 01/16/2021 10:32 AM FURNITURE REPRODUCER 150 mg As needed, Starting on Tue01/16/21 at 1032, Anesthesia Intra-op vancomycin 1,000 mg in NaCl 0.9% 250 mL Given 01/16/2021 8:19 AM FURNITURE REPRODUCER 1 g (VANCOCIN) IVPB 1,000 mg (rounded from 1,101 mg = 15 mg/ kg ? 73.4 kg), intravenous, at 260 mL/hr, Administer over 60 Minutes, Once, On Tue01/16/21 at 0745, For 1 dose, Pre-Op, Drug Monitoring Program: Pharmacist to adjust medication dosing based on indication and drug clearance factors., Indications: Prophylaxis, surgical vecuronium injection (NORCURON) Given 01/16/2021 10:13 AM FURNITURE REPRODUCER 1 mg As needed, Starting on Tue01/16/21 at 0809, Anesthesia Intra-op Given 01/16/2021 9:52 AM FURNITURE REPRODUCER 1 mg Given 01/16/2021 9:37 AM FURNITURE REPRODUCER 1 mg documented in this encounter Care Teams Manager Protein Relationship Specialty Start Date End Date Elsewhere, Pcp PCP - General Family Medicine 10/25/18 documented as of this encounter
--- OUTSIDE RECORDS SUMMARY | 2022-08-27 11:25 | XMS_ITS | Encounter Summary ---
:1945 [facility] Organization [facility] Address [address] [place] [address] Care Team Providers Name Role Phone Elsewhere, Pcp Primary Care Provider Unavailable Reason for Referral Outpatient (Routine) - Closed Specialty Diagnoses / Procedures Referred By Contact Refer red To Contact Diagnoses Chronic Systolic (Congestive) Heart Failure (HCC) [facility]omyopathy [facility]schemic [facility] Transthoracic (TTE) Justin MCCLELLAN, M.S.N. [address] [place] [phone] Referral ID Status Reason Start Date Expiration Date Visits Requ ested Visits Authorized [id number] Closed 10/15/2019 10/14/2020 1 1 H HAND MACHINE Reason for Visit Outpatient (Routine) - Closed Specialty Diagnoses / Procedures Referred By Contact Refer red To Contact Diagnoses Chronic Systolic (Congestive) Heart Failure (HCC) Cardiomyopathy Ischemic [facility] Echo Transthoracic (TTE) Justin MCCLELLAN, M.S.N. [address] [place] [phone] Referral ID Status Reason Start Date Expiration Date Visits Requ ested Visits Authorized [id number] Closed 10/15/2019 10/14/2020 1 1 Encounter Details Date Type Department Care Team Description 10/15/2020 Hospital Department Chai Chronic Systol ic (Congestive) Heart Failure (HCC); Encounter Cardiovascular Natasha Fagan, Nicop athy Ischemic Diseases in [facility], C.N.PCarmineTraver, [place] M.S.N. 200 [address] [place] [phone] Social History Tobacco Use Types Packs/Day Years [...] or relatives? How often do you attend zoroastrianism or More than 4 times per year 10/15/2019 shinto services? Do you belong to any clubs or Yes 10/15/2019 organizations such as zoroastrianism groups, unions, fraternal or athletic groups, or [...] Take 1 tablet by 0 mouth daily. acetaminophen (Tylenol Take 500 mg by mouth 0 10/16/2021 Extra Strength) 500 mg every 6 (six) hours tablet as needed for pain. bisacodyL (DULCOLAX) 5 Take by mouth. 0 [...] 10/16/2021 mg tablet total) by mouth daily. levothyroxine Take 1 tablet (200 90 tablet 3 06/03/202002/2021 (SYNTHROID, LEVOTHROID) mcg total) by mouth 200 mcg tablet daily. lisinopriL Take 1 tablet (40 mg 90 tablet 3 10/15/202001/2021 (PRINIVIL,ZESTRIL) 40 mg total) by mouth tablet daily. nitroglycerin Place 1 tablet (0.4 25 tablet 3 10/15/2020 (NITROSTAT) 0.4 mg SL mg total) under the tablet tongue as needed for chest pain. May repeat every 5 x 2. If no relief with 3rd tab call 911. polyethylene glycol Take by mouth. 0 07/10/2010 0 01/05/2021 (Miralax) 17 gram/dose oral powder rosuvastatin (Crestor) Take 1 tablet (40 mg 30 tablet 11 12/201910/16/2021 40 mg tablet total) by mouth daily. sildenafiL (Viagra) 100 Take by mouth. 0 07/10/20 10 01/05/2021 mg tablet documented as of this encounter Plan of Treatment Upcoming Encounters Date Type Specialty Care Team Description 10/11/2022 Appointment Laboratory Medicine Natasha Mullins APRN, C.N.P., M.S.N. 200 [place] [address] (Wo rk) 10/11/2022 Ancillary Procedure Cardiovascular Disease Natasha Cramer APRN, C.N.P., M.S.N. [address] [place] [phone] (Wo rk) 10/11/2022 Appointment Cardiovascular Disease Natasha Mullins APRN, Radha.NCarminePCarmine, M.S.N. [address] [place] [phone] (Joanie rk) 10/12/2022 Office Visit Cardiovascular Disease Natasha Mullins APRN, Radha.N.PCarmine, M.S.N. [address] [place] [phone] (Joanie rk) documented as of this encounter Procedures Procedure Name Priority Date/Time Associated Diagnosis Comme nts (TTE) 2D ECHO Routine 10/15/2020 9:58 AM Chronic Systolic Resu lts for this DOPPLER COLOR BENCH HAND MACHINE (Congestive) Heart procedur e are in Failure (HCC) the results Cardiomyopathy section. Ischemic documented in this encounter Results (TTE) 2D ECHO DOPPLER COLOR (10/15/2020 9:58 AM BENCH HAND MACHINE) Analysis Performed At Patho logist Time Signature Ejection Fraction 52 MC CV EIMS Wall Motion Score 1.63 MC CV EIMS Index LV End-Diastolic 53 MC CV EIMS Diameter LV End-Systolic 37 MC CV EIMS Diameter LV End-Diastolic 127 MC CV EIMS Volume LV End-Systolic 59 MC CV EIMS Volume MV E Velocity 0.6 MC CV EIMS MV A Velocity 0.9 MC CV EIMS MV E/A 0.67 MC CV EIMS MV e' Velocity 0.04 MC CV EIMS Medial MV E/e' Medial 15.0 MC CV EIMS Left ventricular 48 MC CV EIMS stroke volume index Cardiac Output 5.72 MC CV EIMS Cardiac Index 2.98 MC CV EIMS RV 4-Chamber Basal 50 MC CV EIMS Diameter RV 4-Chamber Mid 39 MC CV EIMS Diameter RV 4-Chamber 89 MC CV EIMS Length Tricuspid Annular 0.13 MC CV EIMS S? TR Vmax 2.40 MC CV EIMS RA Pressure 10 MC CV EIMS RV Systolic 33 MC CV EIMS Pressure AV mean gradient 11 MC CV EIMS Aortic valve area 2.01 MC CV EIMS Aortic Valve 0.41 MC CV EIMS Dimensionless Index WMSI At Rest 1.63 MC CV EIMS WMSI At Peak 1.63 MC CV EIMS Stress Anatomical Region Laterality Modality Echocardiography Specimen (Source) Anatomical Collection Method Collection Time Re ceived Time Location / / Volume Laterality 10/15/2020 8:39 AM BENCH HAND MACHINE Impressions 10/15/2020 10:47 AM BENCH HAND MACHINE Last full echocardiogram performed 10/15/2019. ??Echocardiogram performed per left ventricular function protocol. ??LEFT VENTRICLE: ??B orderline enlarged left ventricular chamber size by 2D volume. ??Normal left ventricular wall t hickness. ??Calculated 3-D volumetric left ventricular ejection fraction 52 %. ??Regional wall motion abnormalities were present (see wall motion graphics). ??Grade 1a/3 left ventricular diastolic dysfunction, consistent with mildly elevated left ventricular filling pressure at res t. ??RIGHT VENTRICLE: ??Mildly enlarged right ventricular chamber size. ??Mildly reduced right janet tricular systolic function predominantly reduced at the apex. ??Estimated right ventricular syst olic pressure 33 mmHg (systolic blood pressure 100 mmHg). ??ATRIA: ??Enlarged left atrial s ize by visual estimate. ??Mildly enlarged right atrial size by visual estimate. ??CARDIAC VALVE S: ??Trileaflet aortic valve. ??Mildly calcified aortic valve. ??Mild aortic valve regurgitation . ??Aortic valve systolic mean Doppler gradient 11 mmHg. Aortic valve area by Doppler 2.01 cm^2. ??Mildly thickened mitral valve. ??Trivial mitral valve regurgitation. ??Normal pulmonary valve. ??Trivial pulmonary valve regurgitation. ??Mildly thickened tricuspid valve. ??Mild tricus pid valve regurgitation. ??OTHER ECHO FINDINGS: ??Mildly enlarged inferior vena cava size with re duced inspiratory collapse (<50%). ??No intracardiac mass or thrombus, but the left atrial ap pendage cannot be visualized adequately with transthoracic echo to exclude thrombus i n this location. ??No pericardial effusion. For the complete report, see the Bringme Documents. Narrative 10/15/2020 10:47 AM BENCH HAND MACHINE For the complete report, see the Bringme Documents. Final Impressions 1. Borderline enlarged left ventricular chamber size. ??Calculated ejection fraction 52 %. 2. Regional wall motion abnormalities we re present (see wall motion graphics). 3. Grade 1a/3 left ventricular diastolic dysfunction, consistent with mildly elevated left ventricular filling pressure at rest. 4. Mildly reduced right ventricular syst olic function (predominantly reduced at the apex). 5. Estimated right ventricular systolic pressure 33 mmHg (systolic blood pressure 100 mmHg). 6. Mildly calcified aortic valve with mi ld aortic regurgitation. Trivial aortic stenosis (peak AV velocity 2.2 m/sec; aortic valve syst olic mean gradient 11 mmHg). 7. Mildly enlarged inferior vena cava si ze with reduced inspiratory collapse (<50%). 8. Compared to the report of 10/15/2019 the following changes have occurred: there has been a slight reduction in RV systolic function at the apex. Procedure Note Madhav Key M.D. - 10/15/2020Format ting of this note might be different from the original. For the complete report, see the Order-L evel Documents. Final Impressions 1. Borderline enlarged left ventricular chamber size. Calculated ejection fraction 52 %. 2. Regional wall motion abnormalities we re present (see wall motion graphics). 3. Grade 1a/3 left ventricular diastolic dysfunction, consistent with mildly elevated left ventricular filling pressure at rest. 4. Mildly reduced right ventricular syst olic function (predominantly reduced at the apex). 5. Estimated right ventricular systolic pressure 33 mmHg (systolic blood pressure 100 mmHg). 6. Mildly calcified aortic valve with mi ld aortic regurgitation. Trivial aortic stenosis (peak AV velocity 2.2 m/sec; aortic valve syst olic mean gradient 11 mmHg). 7. Mildly enlarged inferior vena cava si ze with reduced inspiratory collapse (<50%). 8. Compared to the report of 10/15/2019 the following changes have occurred: there has been a slight reduction in RV systolic function at the apex. Findings Last full echocardiogram performed 10/15. Echocardiogram performed per left ventricular function protocol. LEFT VENTRICLE: Borde rline enlarged left ventricular chamber size by 2D volume. Normal left ventricular wall thi ckness. Calculated 3-D volumetric left ventricular ejection fraction 52 %. Regional wall mo tion abnormalities were present (see wall motion graphics). Grade 1a/3 left ventricular d iastolic dysfunction, consistent with mildly elevated left ventricular filling pressure at res t. RIGHT VENTRICLE: Mildly enlarged right ventricular chamber size. Mildly reduced right ventr icular systolic function predominantly reduced at the apex. Estimated right ventricular systol ic pressure 33 mmHg (systolic blood pressure 100 mmHg). ATRIA: Enlarged left atrial size by visual estimate. Mildly enlarged right atrial size by visual estimate. CARDIAC VALVES: Trileaflet aortic valve. Mildly calcified aortic valve. Mild aortic valve regurgitation. Aortic valve systolic mean Doppler gradient 11 mmHg. Aortic valve area by Doppler 2.01 cm^2. Mildly thickened mitral valve. Trivial mitral valve regurgitation. Normal pulmonary valve. T rivial pulmonary valve regurgitation. Mildly thickened tricuspid valve. Mild tricuspi d valve regurgitation. OTHER ECHO FINDINGS: Mildly enlarged inferior vena cava size with re duced inspiratory collapse (<50%). No intracardiac mass or thrombus, but the left atrial ap pendage cannot be visualized adequately with transthoracic echo to exclude thrombus i n this location. No pericardial effusion. For the complete report, see the Order-L evel Documents. Natasha Chai Fagan APRN, C.N.P., M.S.N. CV ECHO AK OCEDURES documented in this encounter Visit Diagnoses Diagnosis Chronic Systolic (Congestive) Heart Fail ure (HCC) Cardiomyopathy Ischemic documented in this encounter Care Teams Health Care Aide Relationship Specialty Start Date End Date Elsewhere, Pcp PCP - General Family Medicine 10/25/18 documented as of this encounter
--- OUTSIDE RECORDS SUMMARY | 2022-08-27 11:25 | XMS_ITS | Encounter Summary ---
:1945 Author Organization [facility] Address [address] [place] [address] Care Team Providers Name Role Phone Elsewhere, Pcp Primary Care Provider Unavailable Reason for Referral MRI/CAT/PET Scan (Routine) - Closed Specialty Diagnoses / Procedures Referred By Contact Refer red To Contact Radiology Diagnoses Malignant Neoplasm Of Thyroid (HCC) Loni Wu M.D. [facility] Procedures CT Chest without IV Contrast [address] [place] [address] Referral ID Status Reason Start Date Expiration Date Visits Requ ested Visits Authorized [id number] Closed 03/10/2021 03/10/2022 1 1 Encounter Details Date Type Department Care Team Description 03/10/2021 Orders Only Division of Endocrinology Loni Wu Ma lignant Neoplasm Of in [facility] milan Love M.D. Thyroid (HCC) (Primary [address] [place]x) [place] [address] [place], [place] [phone] Social History Tobacco Use Types Packs/Day Years [...] Medicine Natasha Mullins APRN, C.N.P., M.S.N. [address] [place] [phone] (Joanie velázquez) 10/11/2022 Ancillary Procedure Cardiovascular Disease Natasha Cramer APRN, Radha.N.P., M.S.N. [address] [place] [phone] (Joanie rk) 10/11/2022 Appointment Cardiovascular Disease Natasha Mullins APRN, C.N.P., M.S.N. [address] [place] [phone] (Joanie rk) 10/12/2022 Office Visit Cardiovascular Disease Natasha Mullins APRN, C.N.P., M.S.N. [address] [place] [phone] (Joanie rk) documented as of this encounter Results CT Chest without IV [...] dependent workstation as ordered by the treating p jaswinder and reviewed by the radiologist to increase [...] dependent workstation as ordered by the treating p jaswinder and reviewed by the radiologist to increase [...] (HCC) documented in this encounter Care Teams Sports Cartoonist Relationship Specialty Start Date End Date Elsewhere, Pcp PCP - General Family Medicine 10/25/18 documented as of this encounter
--- OUTSIDE RECORDS SUMMARY | 2022-08-27 11:25 | XMS_ITS | Encounter Summary ---
:1945 Author Organization [facility] Address [address] [place] [address] Care Team Providers Name Role Phone Elsewhere, Pcp Primary Care Provider Unavailable Encounter Details Date Type Department Care Team Description 01/05/2021 Orders Only Division of Trauma Bay Mccurdy Herni a Inguinal Left Critical Care and D, D.O. (Primary Dx) General Surgery in [address] [place] [address] [place] [address] [place], [place] [phone] (Work) [phone] Social History Tobacco Use Types Packs/Day Years [...] Medicine Natasha Mullins APRN, C.N.P., M.S.N. [address] [place] [address], [place] [phone] (Wo rk) 10/11/2022 Ancillary Procedure Cardiovascular Disease Natasha Cramer APRN, C.N.PCarmine, M.S.N. [address] [place] [phone] (Wo rk) 10/11/2022 Appointment Cardiovascular Disease Natasha Mullins APRN, Radha.N.P., M.S.N. [address] [place] [phone] (Wo rk) 10/12/2022 Office Visit Cardiovascular Disease Natasha Mullins APRN, Radha.N.P., M.S.N. [address] [place] [phone] (Wo rk) documented as of this encounter Results SARS Coronavirus-2, PCR Asymptomatic (01/14/2021 10:02 AM SKIN CARE THERAPIST) [facility] Method Time Signature SARS Swab, 01/14/2021 DTL Coronavirus-2 Nasopharynx 11:55 PM Source SKIN CARE THERAPIST SARS Undetected Undetected 01/14/2021 DTL Coronavirus-2 11:55 PM , PCR SKIN CARE THERAPIST Comment: SARS-CoV-2 RNA absent. This result does not rule out COVID-19 in the patient, as the sensitivity of the test depends o n the timing of the specimen collection and quality of the specimen. Result should be correlated with patient's history and clinical presentat ion. ----ADDITIONAL INFORMATION---- This test was developed and its performa nce characteristics determined by [facility] in a manner co nsistent with CLIA requirements. Independent review by the U.S. Food and Drug Administration is pending. Visit the CDC website: https://www.cdc.gov/coronavirus/ ?? for the most recent guidelines on [place] virus testing. Fact Sheet for Healthcare Providers: (https://www.livingstonEtece.com/it-mmfil es/ Provider_Fact_Sheet_for_[place]_COVI D-19.pdf) Fact Sheet for Patients: (https://www.[employer].Mark media/it-mmfil es/ Patient_Fact_Sheet_for_COVID-19.pdf) Specimen Anatomical Collection Method Collection Time Receive d Time (Source) Location / / Volume Laterality Varies 01/14/2021 10:02 01/14/2021 (Nasopharynx) AM SKIN CARE THERAPIST 11:13 AM SKIN CARE THERAPIST Bay Mccurdy D.O. LAB MICROBIOLOGY - GENERAL O RDERABLES Performing Organization Address City/State/ZIP Code Phon e Number [facility] - [address] [place], [place] [address] [facility] [place] [address] [facility] [address] documented in this encounter Visit Diagnoses Diagnosis Hernia Inguinal Left - Primary documented in this encounter Care Teams Meat Butcher Relationship Specialty Start Date End Date Elsewhere, Pcp PCP - General Family Medicine 10/25/18 documented as of this encounter
--- OUTSIDE RECORDS SUMMARY | 2022-08-27 11:25 | XMS_ITS | Encounter Summary ---
:1945 Author Organization [facility] Address [address] [place] [address] Care Team Providers Name Role Phone Elsewhere, Pcp Primary Care Provider Unavailable Encounter Details Date Type Department Care Team Description 06/03/2020 Hospital Encounter Department of Loni Wu t Neoplasm Of Thyroid Papillary (HCC); Radiology, Jethro Love M.D. 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 Do you belong to any clubs [...] (ZyrTEC) 10 mg Take 10 mg by mouth 0 1 tablet daily. fluticasone Inhale 1 puff daily 0 08/25/2015 propion-salmeteroL 250-50 as needed. mcg/dose diskus inhaler montelukast (SINGULAIR) Take 1 tablet by 0 2014 10 mg tablet mouth at bedtime. acetaminophen (Tylenol Take 500 mg by 0 10/16/2021 Extra Strength) 500 mg mouth every 6 (six) tablet hours as needed for pain. bisacodyL (DULCOLAX) 5 mg Take by mouth. 0 200905/27/2021 EC tablet calcium carbonate Chew 1 tablet 2 0 08/25/2015 (OS-ARLEEN) 1,250 mg (500 mg (two) times a day calcium) chewable tablet as needed. Heartburn. carvedilol (COREG) 25 mg Take 1 tablet (25 180 tablet 3 12/201810/15/2020 tablet mg total) by mouth 2 (two) times a day. cholecalciferol (VITAMIN Take 1 tablet by 0 08/2410/15/2020 D3) 1,000 Unit tablet mouth daily. clopidogrel (PLAVIX) 75 Take 1 tablet (75 90 tablet 3 10/1510/15/2020 mg tablet mg total) by mouth daily. fluticasone (FLONASE) 50 Administer 1 spray 0 03/201810/15/2020 mcg/actuation nasal spray into affected nostril(s) as needed. levothyroxine (SYNTHROID, Take 1 tablet (200 90 tablet 3 08/17/2021 LEVOTHROID) 200 mcg mcg total) by mouth tablet daily. lisinopril Take 1 tablet (40 90 tablet 3 10/15/2019 020 (PRINIVIL,ZESTRIL) 40 mg mg total) by mouth tablet daily. nitroglycerin (NITROSTAT) Place 1 tablet (0.4 25 tablet 3 1 12/16/2018 10/15/2020 0.4 mg SL tablet mg total) under the tongue as needed for chest pain. May repeat every 5 x 2. If no relief with 3rd tab call 911. polyethylene glycol Take by mouth. 0 07/10/2010 0 01/05/2021 (Miralax) 17 gram/dose oral powder rosuvastatin (Crestor) 40 Take 1 tablet (40 30 tablet 11 12/201810/15/2020 mg tablet mg total) by mouth daily. sildenafiL (Viagra) 100 Take by mouth. 0 07/10/20 10 01/05/2021 mg tablet zinc gluconate 50 mg Take 80 mg by mouth 0 10/15/2020 tablet daily with breakfast. documented as of this encounter Plan of Treatment Upcoming Encounters Date Type Specialty Care Team Description 10/11/2022 Appointment Laboratory Medicine Natasha Mullins APRN, C.N.P., M.S.N. [address] [place] [phone] (Joanie velázquez) 10/11/2022 Ancillary Procedure Cardiovascular Disease Natasha Cramer APRN, C.N.P., M.S.N. [address] [place] [phone] (Joanie velázquez) 10/11/2022 Appointment Cardiovascular Disease Natasha Mullins APRN, C.N.P., M.S.N. [address] [place] [phone] (Joanie velázquez) 10/12/2022 Office Visit Cardiovascular Disease Natasha Mullins APRN, C.N.P., M.S.N. [address] [place] [phone] (Joanie velázquez) documented as of this encounter Procedures Procedure Name Priority Date/Time Associated Comments Diagnosis US HEAD NECK SOFT RAD - Routine 06/03/2020 9:22 Malignant Result s for this TISSUE (most inpatients AM CDT Neoplasm Of procedure a re in and all Thyroid Papillary the result s outpatients) (HCC) section. 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 Multiple prominent lymph nodes in the neck bilaterally. ??Sonographic differen tiation between lymphoma and metastatic papillary thyroid cancer is difficult bu t the lack of cystic change or microcalcifications favors lymphoma. Narrative 06/03/2020 9:46 AM CDT EXAM: US HEAD NECK SOFT TISSUE COMPARISON: There are neck ultrasound da cristobal 09/05/2019 and 03/01/2019 FINDINGS: Thyroidectomy. Stable 3 x 6 x 7 mm nodule in the mid left thyroid bed. 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 Multiple prominent lymph nodes bilateral ly including a 0.6 x 1.3 x 2.0 cm right level 4 lymph node which is larger than on the ultrasound dated 09/05/2019 but similar to the ultrasound dated 03/01/20 19. ??There is a 0.9 x 0.9 x 2.7 cm right level 2 lymph node which is larger than on the prior ultrasound examinations. The other lymph nodes are similar in siz e. ??None of the prominent lymph nodes demonstrate cystic change or microcalcif ications. Procedure Note Tete Redding M.D. - 06/03/2020For matting of this note might be different from the original. EXAM: US HEAD NECK SOFT TISSUE COMPARISON: There are neck ultrasound da cristobal 09/05/2019 and 03/01/2019 FINDINGS: Thyroidectomy. Stable 3 x 6 x 7 mm nodule in the mid left thyroid bed. 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 Multiple prominent lymph nodes bilateral ly including a 0.6 x 1.3 x 2.0 cm right level 4 lymph node which is larger than on the ultrasound dated 09/05/2019 but similar to the ultrasound dated 03/01/20 19. There is a 0.9 x 0.9 x 2.7 cm right level 2 lymph node which is larger than on the prior ultrasound examinations. The other lymph nodes are similar in siz e. None of the prominent lymph nodes demonstrate cystic change or microcalcif ications. IMPRESSION: Stable left mid bed nodule. Multiple pro minent lymph nodes in the neck bilaterally. Sonographic differenti ation between lymphoma and metastatic papillary thyroid cancer is difficult bu t the lack of cystic change or microcalcifications favors lymphoma. 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
--- OUTSIDE RECORDS SUMMARY | 2022-08-27 11:25 | XMS_ITS | Encounter Summary ---
:1945 [facility] Address [address] [place] [address] Care Team Providers Name Role Phone Elsewhere, Pcp Primary Care Provider Unavailable Encounter Details Date Type Department Care Team Description 10/15/2020 Hospital Encounter Department of Justus Mullins smita Systolic (Congestive) Heart Failure (HCC); Laboratory VY Kaur, Cardiomyopathy Ischemic Medicine and C.N.P., M.S.N. Pathology, [place] [address] [place] [address], in [facility] [phone] [place] [phone] [place] [address] (Work) [place], [place] [phone] (Fax) [phone] Social History Tobacco Use Types Packs/Day Years [...] or relatives? How often do you attend [employer] or More than 4 times per year 10/15/2019 confucianism services? Do you belong to any clubs or Yes 10/15/2019 organizations such as [employer] groups, unions, [employer] or athletic groups, or school groups? How [...] bedtime. acetaminophen (Tylenol Take 500 mg by mouth 0 10/16/2021 Extra Strength) 500 mg every 6 (six) hours tablet as needed for pain. bisacodyL (DULCOLAX) 5 mg Take by mouth. 0 200905/27/2021 EC tablet calcium carbonate Chew 1 tablet 2 0 08/25/2015 (OS-ARLEEN) 1,250 mg (500 mg (two) times a day as calcium) chewable tablet needed. Heartburn. levothyroxine (SYNTHROID, Take 1 tablet (200 90 tablet 3 08/17/2021 LEVOTHROID) 200 mcg mcg total) by mouth tablet daily. polyethylene glycol Take by mouth. 0 07/10/2010 0 01/05/2021 (Miralax) 17 gram/dose oral powder sildenafiL (Viagra) 100 Take by mouth. 0 07/10/20 10 01/05/2021 mg tablet documented as of this encounter Plan of Treatment Upcoming Encounters Date Type Specialty Care Team Description 10/11/2022 Appointment Laboratory Medicine Natasha Mullins APRN, C.N.P., M.S.N. [address] [place] [phone] (Joanie velázquez) 10/11/2022 Ancillary Procedure Cardiovascular Disease Natasha Cramer APRN, C.N.P., M.S.N. [address] [place] [phone] (Joanie velázquez) 10/11/2022 Appointment Cardiovascular Disease Natasha Mullins APRN, C.NLibrado., M.S.N. [address] [place] [phone] (Wo rk) 10/12/2022 Office Visit Cardiovascular Disease Natasha Mullins APRN, C.NRenetta, M.S.N. [address] [place] [phone] (Wo rk) documented as of this encounter Procedures Procedure Name Priority Date/Time Associated Comments Diagnosis LIPID PANEL, S Routine 10/15/2020 7:59 Chronic Systolic Result s for this AM ACCOUNTANT CONTROLLER (Congestive) Heart procedure are in Failure (HCC) the results Cardiomyopathy section. Ischemic CBC WITHOUT Routine 10/15/2020 7:59 Chronic Systolic Results for this DIFFERENTIAL, B AM ACCOUNTANT CONTROLLER (Congestive) Heart proced ure are in Failure (HCC) the results Cardiomyopathy section. Ischemic ALANINE AMINOTRANSFERASE Routine 10/15/2020 7:59 Chronic Systo lic Results for this (ALT), S/P AM ACCOUNTANT CONTROLLER (Congestive) Heart procedure are in Failure (HCC) the results Cardiomyopathy section. Ischemic BASIC METABOLIC PANEL, Routine 10/15/2020 7:59 Chronic Systoli c Results for this S/P AM ACCOUNTANT CONTROLLER (Congestive) Heart procedure are in Failure (HCC) the results Cardiomyopathy section. Ischemic documented in this encounter Results Lipid Panel (10/15/2020 7:59 AM ACCOUNTANT CONTROLLER) P athologist Signature Cholesterol, 198 mg/dL 10/15/2020 DTL Total 9:14 AM ACCOUNTANT CONTROLLER Comment: ----REFERENCE VALUE---- Desirable: < 200 Borderline high: 200 - 239 High: > or = 240 Triglycerides 56 mg/dL 10/15/2020 9:14 AM ACCOUNTANT CONTROLLER DTL Comment: ----REFERENCE VALUE---- Normal: <150 Borderline high: 150-199 High: 200-499 Very high: > or =500 Cholesterol, HDL, S 75 >=40 mg/dL 10/15/2020 9:14 AM ACCOUNTANT CONTROLLER DTL Calculated LDL 112 mg/dL 10/15/2020 9:14 AM ACCOUNTANT CONTROLLER DT L Comment: ----REFERENCE VALUE---- Desirable: <100 Above Desirable: 100-129 Borderline high: 130-159 High: 160-189 Very high: > or =190 Cholesterol, Non-HDL, Calculated 123 mg/dL 020 9:14 AM ACCOUNTANT CONTROLLER DTL Comment: ----REFERENCE VALUE---- Desirable: <130 Above Desirable: 130-159 Borderline high: 160-189 High: 190-219 Very high: > or =220 Specimen Anatomical Collection Method Collection Time Receive d Time (Source) Location / / Volume Laterality Blood (Blood, 10/15/2020 7:59 AM 10/15/20 20 8:52 Venous) ACCOUNTANT CONTROLLER AM ACCOUNTANT CONTROLLER Natasha Fagan APRN, Radha.N.P., M.S.N. LAB BLOOD ADD-ON Performing Organization Address City/[facility] Phon e Number [facility] - [address] ALT (Alanine Aminotransferase) (10/15/2020 7:59 AM ACCOUNTANT CONTROLLER) Patholo gist Method Time Signature Alanine 21 7 - 55 10/15/2020 DTL Aminotransferase U/L 9:14 AM ACCOUNTANT CONTROLLER (ALT), S Specimen Anatomical Collection Method Collection Time Receive d Time (Source) Location / / Volume Laterality Blood (Blood, 10/15/2020 7:59 AM 10/15/20 20 8:52 Venous) ACCOUNTANT CONTROLLER AM ACCOUNTANT CONTROLLER Natasha Fagan APRN, Radha.N.P., M.S.N. LAB BLOOD ADD-ON Performing Organization Address City/[facility] Phon e Number [facility] - 200 [place], [place] [address] [place] [address] CBC without Differential (10/15/2020 7:59 AM ACCOUNTANT CONTROLLER) P athologist Signature Hemoglobin 13.8 13.2 - 10/15/2020 DTL 16.6 g/dL 8:42 AM ACCOUNTANT CONTROLLER Hematocrit 41.0 38.3 - 10/15/2020 DTL 48.6 % 8:42 AM ACCOUNTANT CONTROLLER Erythrocytes 4.43 4.35 - 10/15/2020 DTL 5.65 8:42 AM ACCOUNTANT CONTROLLER x10(12)/L MCV 92.6 78.2 - 10/15/2020 DTL 97.9 fL 8:42 AM ACCOUNTANT CONTROLLER RBC Distrib Width 13.2 11.8 - 10/15/2020 DTL 14.5 % 8:42 AM ACCOUNTANT CONTROLLER Platelet Count 212 135 - 317 10/15/2020 DTL x10(9)/L 8:42 AM ACCOUNTANT CONTROLLER Leukocytes 5.2 3.4 - 9.6 10/15/2020 DTL x10(9)/L 8:42 AM ACCOUNTANT CONTROLLER Specimen Anatomical Collection Method Collection Time Receive d Time (Source) Location / / Volume Laterality Blood (Blood, 10/15/2020 7:59 AM 10/15/20 20 8:28 Venous) ACCOUNTANT CONTROLLER AM ACCOUNTANT CONTROLLER Radha Eastman APRN.N.P., M.S.N. LAB BLOOD ADD-ON Performing Organization Address City/State/ZIP Code Phon e Number [facility] - [address] [place] [phone] [facility] [place] [address] [facility] 200 [facility] (ABNORMAL) Basic Metabolic Panel (10/15/2020 7:59 AM ACCOUNTANT CONTROLLER) P athologist Signature Potassium, S 5.0 3.6 - 5.2 10/15/2020 DTL mmol/L 9:11 AM ACCOUNTANT CONTROLLER Sodium, S 127 (L) 135 - 145 10/15/2020 DTL mmol/L 9:11 AM ACCOUNTANT CONTROLLER Chloride, S 92 (L) 98 - 107 10/15/2020 DTL mmol/L 9:11 AM ACCOUNTANT CONTROLLER Bicarbonate, S 27 22 - 29 10/15/2020 DTL mmol/L 9:11 AM ACCOUNTANT CONTROLLER Anion Gap 8 7 - 15 10/15/2020 DTL 9:11 AM ACCOUNTANT CONTROLLER BUN (Blood Urea 16 8 - 24 10/15/2020 DTL Nitrogen), S mg/dL 9:11 AM ACCOUNTANT CONTROLLER Creatinine 0.89 0.74 - 10/15/2020 DTL 1.35 mg/dL 9:11 AM ACCOUNTANT CONTROLLER eGFR-Non 82 >=60 10/15/2020 DTL Black/ mL/min/BSA 9:11 AM ACCOUNTANT CONTROLLER [place] Comment: ----ADDITIONAL INFORMATION---- Estimated GFR calculated using the 2009 CKD_EPI creatinine equation. eGFR-Black/ >90 >=60 mL/min/BSA 2019 9:11 AM ACCOUNTANT CONTROLLER DTL Comment: ----ADDITIONAL INFORMATION---- Estimated GFR calculated using the 2009 CKD_EPI creatinine equation. Calcium, Total, S 9.0 8.8 - 10.2 mg/dL 10/15/2020 9:11 AM ACCOUNTANT CONTROLLER DTL Glucose, S 105 70 - 140 mg/dL 10/15/2020 9:11 AM ACCOUNTANT CONTROLLER D TL Specimen Anatomical Collection Method Collection Time Receive d Time (Source) Location / / Volume Laterality Blood (Blood, 10/15/2020 7:59 AM 10/15/20 20 8:50 Venous) ACCOUNTANT CONTROLLER AM ACCOUNTANT CONTROLLER Radha Eastman APRN.N.[place]., M.S.N. LAB BLOOD ADD-ON Performing Organization Address City/State/ZIP Code Phon e Number [facility] - [address] [place], [place] [address] [facility] [place] [address] Laboratories-[facility] [address] documented in this encounter Visit Diagnoses Diagnosis Chronic Systolic (Congestive) Heart Fail ure (HCC) Cardiomyopathy Ischemic documented in this encounter Care Teams Tumbling And Rolling Supervisor Relationship Specialty Start Date End Date Elsewhere, Pcp PCP - General Family Medicine 10/25/18 documented as of this encounter
--- OUTSIDE RECORDS SUMMARY | 2022-08-27 11:25 | XMS_ITS | Encounter Summary ---
:1945 Author Organization [facility] Address [address] [place] [address] Care Team Providers Name Role Phone Elsewhere, Pcp Primary Care Provider Unavailable Reason for Referral Outpatient (Routine) - Closed Specialty Diagnoses / Procedures Referred By Contact Refer red To Contact Diagnoses Malignant Neoplasm Of Thyroid (HCC) Loni Wu M.D. [facility] Procedures US Head Neck Soft Tissue [address] [place] [phone] Referral ID Status Reason Start Date Expiration Date Visits Requ ested Visits Authorized [id number] Closed 06/03/2020 06/03/2021 1 1 Reason for Visit Outpatient (Routine) - Closed Specialty Diagnoses / Procedures Referred By Contact Refer red To Contact Diagnoses Malignant Neoplasm Of Thyroid (HCC) Loni Wu M.D. [facility] Procedures US Head Neck Soft Tissue [address] [place] [phone] Referral ID Status Reason Start Date Expiration Date Visits Requ ested Visits Authorized [id number] Closed 06/03/2020 06/03/2021 1 1 Encounter Details Date Type Department Care Team Description 03/10/2021 Hospital Encounter Department of Loni Wu Neoplasm Of Radiology, Jethro Love M.D. Thyroid (HCC) [facility], in [address] [place] [address] [place] [phone] [place], [place] [phone] (Work) [phone] Social History Tobacco Use Types Packs/Day Years [...] More than 4 times per year 10/15/2019 mormon services? Do you belong to any clubs [...] Medicine Natasha Mullins APRN, Radha.N.P., M.S.N. [address] [place] [phone] (Wo rk) 10/11/2022 Ancillary Procedure Cardiovascular Disease Natasha Cramer APRN, Radha.N.P., M.S.N. [address] [place] [phone] (Wo rk) 10/11/2022 Appointment Cardiovascular Disease Natasha Mullins APRN, Radha.N.Franklin., M.S.N. [address] [place] [phone] (Wo rk) 10/12/2022 Office Visit Cardiovascular Disease Natasha Mullins APRN, Radha.N.P., M.S.N. [address] [place] [phone] (Wo rk) documented as of this encounter Procedures Procedure Name Priority Date/Time Associated Comments Diagnosis US HEAD NECK SOFT RAD - Routine 03/10/2021 9:12 Malignant Result s for this TISSUE (most inpatients AM CDT Neoplasm Of procedure a re in and all Thyroid (HCC) the results outpatients) section. documented in this encounter Results US Head Neck Soft Tissue (03/10/2021 9:12 AM CDT) Anatomical Region Laterality Modality Head and Neck, Ultrasound RST LOS, Ultrasound ARZ LOS, N/A Ultrasound Ultrasound FLA LOS Specimen (Source) Anatomical Collection Method Collection Time Re ceived Time Location / / Volume Laterality 03/10/2021 9:13 AM CDT Impressions 03/10/2021 9:29 AM CDT 1. Mildly increased hypervascular nodule in the LEFT mid thyroid bed. Suspicious for recurrent disease. 2. Interval cystic degeneration of the 1 .9 cm RIGHT level 4 lymph node. 3. Extensive bilateral cervical lymphade nopathy otherwise without significant interval change Narrative 03/10/2021 9:29 AM CDT EXAM: US HEAD NECK SOFT TISSUE COMPARISON: 06/03/2020 ultrasound of the neck FINDINGS: History of recurrent metastatic papillar y carcinoma with modified neck dissection on 04/17/2019. History of low-g rade B-cell lymphoma. Thyroidectomy. Nothing identified in the RIGHT thyroid bed. The LEFT mid thyroid bed nodule has increased in size measuri ng 5 x 7 x 8 mm compared to 3 x 6 x 7 mm on 06/03/2020. In addition there are some vague echogenic foci and overall hypervascularity. This is suspicious for recurrent papillary thyroid cancer. Extensive cervical adenopathy as demonst rated previously. The RIGHT level 4 lymph node has become partially cystic s uggesting interval cystic degeneration. Lymph node measures 1.3 x 1 x 1.9 cm. Other lymph nodes have not changed signi ficantly. Procedure Note Ben Clements M.D. - 03/10/2021Format ting of this note might be different from the original. EXAM: US HEAD NECK SOFT TISSUE COMPARISON: 06/03/2020 ultrasound of the neck FINDINGS: History of recurrent metastatic papillar y carcinoma with modified neck dissection on 04/17/2019. History of low-g rade B-cell lymphoma. Thyroidectomy. Nothing identified in the RIGHT thyroid bed. The LEFT mid thyroid bed nodule has increased in size measuri ng 5 x 7 x 8 mm compared to 3 x 6 x 7 mm on 06/03/2020. In addition there are some vague echogenic foci and overall hypervascularity. This is suspicious for recurrent papillary thyroid cancer. Extensive cervical adenopathy as demonst rated previously. The RIGHT level 4 lymph node has become partially cystic s uggesting interval cystic degeneration. Lymph node measures 1.3 x 1 x 1.9 cm. Other lymph nodes have not changed signi ficantly. IMPRESSION: 1. Mildly increased hypervascular nodule in the LEFT mid thyroid bed. Suspicious for recurrent disease. 2. Interval cystic degeneration of the 1 .9 cm RIGHT level 4 lymph node. 3. Extensive bilateral cervical lymphade nopathy otherwise without significant interval change Authorizing Provider Result Manuel ALVARADO US PROCEDURES documented in this encounter Visit Diagnoses Diagnosis Malignant Neoplasm Of Thyroid (HCC) documented in this encounter Care Teams Provider Relations Consultant Relationship Specialty Start Date End Date Elsewhere, Pcp PCP - General Family Medicine 10/25/18 documented as of this encounter
--- OUTSIDE RECORDS SUMMARY | 2022-08-27 11:25 | XMS_ITS | Encounter Summary ---
:1945 Author Organization [facility] Address [address] [place] [address] Care Team Providers Name Role Phone Elsewhere, Pcp Primary Care Provider Unavailable Reason for Referral Outpatient (Routine) - Closed Specialty Diagnoses / Procedures Referred By Contact Refer red To Contact Endocrinology Loni Wu M .D. [facility] [address] [place] [address] [phone] Referral ID Status Reason Start Date Expiration Date Visits Requ ested Visits Authorized [id number] Closed 06/03/2020 06/03/2021 1 1 Outpatient (Routine) - Closed Specialty Diagnoses / Procedures Referred By Contact Refer red To Contact Diagnoses Malignant Neoplasm Of Thyroid (HCC) Loni Wu M.D. [facility] Procedures US Head Neck Soft Tissue [address] [place] [phone] Referral ID Status Reason Start Date Expiration Date Visits Requ ested Visits Authorized [id number] Closed 06/03/2020 06/03/2021 1 1 Reason for Visit Outpatient (Routine) - Closed Specialty Diagnoses / Procedures Referred By Contact Refer red To Contact Endocrinology Loni Wu M .D. [facility] [address] [place] [address] [phone] Referral ID Status Reason Start Date Expiration Date Visits Requ ested Visits Authorized [id number] Closed 09/05/2019 09/04/2020 1 1 Encounter Details Date Type Department Care Team Description 06/03/2020 Office Visit Division of Loni Wu Malignant Neopl asm Of Endocrinology in [place] Thyroid (HCC) (Primary [place], [place] [address]) [address] [place] [phone] Social History Tobacco Use Types Packs/Day Years [...] or relatives? How often do you attend jew or More than 4 times per year 10/15/2019 alevism services? Do you belong to any clubs or Yes 10/15/2019 organizations such as jew groups, unions, fraternal or athletic groups, or [...] Sign Reading Time Taken Comments Blood Pressure 132/79 06/03/2020 9:43 AM CDT Pulse 59 06/03/2020 9:43 AM CDT Temperature - - Respiratory Rate - - Oxygen Saturation - - Inhaled Oxygen Concentration - - Weight 76.3 kg (168 lb 3.4 oz) 06/03/2020 9:43 AM CDT Height 176.4 cm (5' 9.45) 06/03/2020 9:43 AM CDT Body Mass Index 24.52 06/03/2020 9:43 AM CDT documented in this encounter Progress Notes Loni Wu M.D. - 06/03/2020 9:30 AM CDT SUBJECTIVE CHIEF COMPLAINT / REASON FOR VISITLevi Khanna is a 74 y.o. male who presents for follow-up of metastatic papillary thyroid cancer. HISTORY OF PRESENT ILLNESS Mr. Khanna is known to me. He has a history of low-grade lymphoma followed by our colleagues in Hematology hand and also history of metastatic papillary thyroid cancer for which she underwent not onlya total thyroidectomy but more recently a left modified neck dissection because of large cystic metastases in the neck. He is here today for continued monitoring. He had lab work done this morning which shows that his TSH is adequately suppressed at 0.05. Free T4 is 1.9. A recent thyroglobulin, last month was 0.9, slightly increased from previous one in August of last year. A recent PET scan done in mid April was essentially negative showing only nonfocal, ill-defined postsurgical activity in the left neck. No abnormal FDG avid lymph nodes above or below the diaphragm. Additionally his neck ultrasound completed earlier today shows a stable left mid bed nodule measuring 3 x 6 x 7 mm. There are some prominent lymph nodes bilaterally including one on the right level IV measuring 2 cm similar to February of 2019. Additionally there is a 2.7 cm level II lymph node on the right which is somewhat larger than on previous examinations. However none of the prominent lymph nodes showed cystic changes or microcalcifications. It is therefore uncertain whether these lymph nodes are rel ated to his known lymphoma or his thyroid cancer. However radiological appearance favors lymphoma. He feels well and voices no acute concerns. No concerns related to his anterior neck. No fevers, nightsweats or any compressive symptoms. OBJECTIVE PHYSICAL EXAM Physical Exam This is a well-appearing man in no acute distress Height is 176.4 cm; weight 76.3 kg; pulse 59; blood pressure 132/79 General: Alert and oriented and in no acute distress. Eyes: Normal pupils, conjunctivae and sclera, normal extraocular movements. Neck: Healed thyroidectomy scar. No palpable residual thyroid tissue. No palpable neck lymphadenopathy. Heart: Regular, no murmurs. Lungs: Clear to auscultation bilaterally. Abdomen: Benign. Extremities: No edema, clubbing or cyanosis. Labs: TSH 0.05 FT4 1.0 Tg 0.9 Tg Ab 32 (normal < 1.8) EXAM: US HEAD NECK SOFT TISSUE COMPARISON: There are neck ultrasound dated 09/05/2019 and 03/01/2019 FINDINGS: Thyroidectomy. Stable 3 x 6 x 7 mm nodule in the mid left thyroid bed. ?? History of modified neck dissection on 04/17/2019 for the partially cystic lymph nodes which were positive for metastatic papillary carcinoma. Several additional lymph nodes were involved by low-grade B-cell lymphoma. ?? Multiple prominent lymph nodes bilaterally including a 0.6 x 1.3 x 2.0 cm right level 4 lymph node which is larger than on the ultrasound dated 09/05/2019 but similar to the ultrasound dated 03/01/2019. There is a 0.9 x 0.9 x 2.7 cm right level 2 lymph node which is larger than on the prior ultrasound examinations. The other lymph nodes are similar in size. None of the prominent lymph nodes demonstrate cystic change or microcalcifications. IMPRESSION: Stable left mid bed nodule. Multiple prominent lymph nodes in the neck bilaterally. Sonographic differentiation between lymphoma and metastatic papillary thyroid cancer is difficult but the lack of cystic change or microcalcifications favors lymphoma. ASSESSMENT / PLAN . 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 There is a tiny nodule in the left mid thyroid bed which is unchanged. The ultrasound shows multiple prominent lymph nodes in the neck on both sides. It is very difficult to determine if these lymph nodes represent simply his known lymphoma or whether there is any ad enopathy related to his thyroid cancer. Because the lymph nodes do not appear to have specific findings suggestive of PTC metastases, I think for the time being will continue to monitor. If however there is continued growth or development of any features such as a cystic component or appearance of microcalcifications, we would proceed with a biopsy. At this time I would like to set up a return visit in approximately six months instead of a year to further assess. He is okay with this plan. In the meantime he will continue current dose of levothyroxine and contact me prior to his appointment if he were to develop any new or worrisome symptoms. documented in this encounter Plan of Treatment Upcoming Encounters Date Type Specialty Care Team Description 10/11/2022 Appointment Laboratory Medicine Natasha Mullins APRN, C.N.P., M.S.N. [address] [place] [phone] (Wo rk) 10/11/2022 Ancillary Procedure Cardiovascular Disease Natasha Cramer APRN, Radha.N.Franklin., M.S.N. [address] [place] [phone] (Wo rk) 10/11/2022 Appointment Cardiovascular Disease Natasha Mullins APRN, C.N.Jalen, M.S.N. [address] [place] [phone] (Wo rk) 10/12/2022 Office Visit Cardiovascular Disease Natasha Mullins APRN, C.N.Jalen, M.S.N. [address] [place] [phone] (Wo rk) Scheduled Referrals Name Type Priority Associated Order Schedule Diagnoses Endocrinology office Outpatient Referral Routine Expected: visit (clinic) 12/04/2020 (Approximate), Expires: 06/03/2023 documented as of this encounter Results (ABNORMAL) S-TSH (Thyroid-Stimulating Hormone - Sensitive) (03/10/2021 9:44 AM CDT) athologist Signature TSH, Sensitive 0.05 (L) 0.3 - 4.2 03/10/2021 DTL mIU/L 10:51 AM CDT Specimen Anatomical Collection Method Collection Time Receive d Time (Source) Location / / Volume Laterality Blood (Blood, 03/10/2021 9:44 AM 03/10/20 Venous) CDT 10:08 AM CDT Loni Wu M.D. LAB BLOOD ADD-ON Performing Organization Address City/State/ZIP Code Phon e Number [facility] - [address] [place] [phone] [facility] [place] [address] [facility] [address] [facility] (ABNORMAL) T4 (Thyroxine), Free (03/10/2021 9:44 [...] Organization Address City/State/ZIP Code Phon e Number [facility] - [address] [place], [place] [phone] [facility] [place] [address] [facility] [address] (ABNORMAL) Thyroglobulin, Tumor Marker (03/10/2021 9:44 AM CDT) [facility] Method Time Signature Thyroglobulin 27 (H) <1.8 IU/mL 03/10/2021 [facility] Antibody, S 2:35 PM CDT Thyroglobulin, 17 (H) ng/mL 03/10/2021 [facility] Tumor Marker, S 2:52 PM CDT Comment: ----REFERENCE VALUE---- Athyrotic <0.1 Intact Thyroid <=33 Thyroglobulin Interpretation SEE COMMENT 2:52 PM CDT [facility] Comment: Quantitation of thyroglobulin may be [...] testing methods are immunoenzymatic assays manufactured by [employer] and performed on the [employer] DXI 800 . Values obtained from different [...] AM 03/10/20 1:25 Venous) CDT PM CDT Authorizing Provider Result Manuel Wu M.D. LAB BLOOD ADD-ON Performing Organization Address City/State/ZIP Code Phon e Number [facility] [address] [place], [place] [address] SUPPORT CENTER [facility] [place] [address] Laboratory Medicine and Pathology [address] [place] US Head Neck Soft Tissue (03/10/2021 9:12 [...] lymphade nopathy otherwise without significant interval change Loni ALVARADO US PROCEDURES documented in this encounter Visit Diagnoses Diagnosis Malignant Neoplasm Of Thyroid (HCC) - Pr imary Malignant Neoplasm Of Thyroid (HCC) documented in this encounter Care Teams Medical Interpreter Relationship Specialty Start Date End Date Elsewhere, Pcp PCP - General Family Medicine 10/25/18 documented as of this encounter
--- OUTSIDE RECORDS SUMMARY | 2022-08-27 11:25 | XMS_ITS | Encounter Summary ---
:1945 Author Organization [facility] Address [address] [place] [address] Care Team Providers Name Role Phone Elsewhere, Pcp Primary Care Provider Unavailable Encounter Details Date Type Department Care Team Description 01/16/2021 Surgery RST ROMB MAIN OR Katty Clarke, Repair Hernia Inguinal [address] [facility] [place] [phone] [phone] [place] [address] [place] [phone] Social History Tobacco Use Types Packs/Day Years [...] Sign Reading Time Taken Comments Blood Pressure 112/75 01/16/2021 11:00 AM TIRE SORTER Pulse 85 01/16/2021 11:15 AM TIRE SORTER Temperature 36.7 ??C (98.1 ??F) 01/16/2021 10:54 AM TIRE SORTER Respiratory Rate 15 01/16/2021 11:00 AM TIRE SORTER Oxygen Saturation 90% 01/16/2021 11:15 AM TIRE SORTER Inhaled Oxygen Concentration - - Weight 73.4 kg (161 lb 13.1 oz) 01/16/2021 7:17 AM TIRE SORTER Height 173.3 cm (5' 8.23) 01/16/2021 7:17 AM TIRE SORTER Body Mass Index 24.44 01/16/2021 7:17 AM TIRE SORTER documented in this encounter Medications at Time [...] questions from the patient. Complaints of discomfort, 4/10 groin/abdomen. Has a good understanding of planned procedure SORTER documented in this encounter OR Notes Op Note - Katty Clarke M.D. - 01/16/2021 8:35 AM CST FULL OP NOTE Procedure(s) (LRB): Repair Hernia Inguinal With Mesh (Left) Surgeon(s) and Role: * Katty Clarke M.D. - Primary * Steven Trotter M.D. - Operations [place] Anesthesia Type General Pre-operative Diagnosis Hernia Inguinal Left Post-operative Diagnosis Hernia Inguinal Left, both direct and indirect components A construction administrative assistant actively participated and was necessary for [...] Implant Name Type Inv. Item Serial No. Religious Education Director Lot No. LRB No. Used Action MSH PRL FAITH POLYPRP KNIT 6X6 - [id number] Mesh or Patch MSH PRL FAITH POLYPRP KNIT 6X6 Ethicon QGBCQA Left 1 Implanted Steven Trotter M.D. SORTER Brief Op Note - Steven Trotter M.D. - 01/16/2021 8:35 AM CST BRIEF OP NOTE Procedure(s) (LRB): Repair Hernia Inguinal With Mesh (Left) Surgeon(s) and Role: * Katty Clarke M.D. - Primary * Steven Trotter M.D. - Operations [place] Anesthesia Type General Pre-operative Diagnosis Hernia Inguinal Left Post-operative Diagnosis Hernia Inguinal Left Findings Direct inguinal hernia, no contents within the sac. Open jordy repair with mesh. Complications None Specimens None Drains None Estimated Blood Loss 20 mL Implants Implant Name Type Inv. Item Serial No. Religious Education Director Lot No. LRB No. Used Action MSH PRL FAITH POLYPRP KNIT 6X6 - [id number] Mesh or Patch MSH PRL FAITH POLYPRP KNIT 6X6 [employer]icon QGBCQA Left 1 Implanted Steven Trotter M.D. SORTER documented in this encounter Plan of Treatment Upcoming Encounters Date Type Specialty Care Team Description 10/11/2022 Appointment Laboratory Medicine Natasha Mullins APRN, Radha.N.P., M.S.N. [address] [place] [phone] (Wo rk) 10/11/2022 Ancillary Procedure Cardiovascular Disease Natasha Cramer APRN, Radha.N.P., M.S.N. [address] [place] [phone] (Wo rk) 10/11/2022 Appointment Cardiovascular Disease Natasha Mullins APRN, Radha.N.P., M.S.N. [address] [place] [phone] (Wo rk) 10/12/2022 Office Visit Cardiovascular Disease Natasha Mullins APRN, Radha.N.P., M.S.N. [address] [place] [phone] (Wo rk) Scheduled Referrals Name Type Priority Associated Diagnoses Order S chedule Trauma Critical Outpatient Referral Routine Expec cristobal: Care and General 01/30/2021 Surgery - Nurse (Approximate ), phone visit Expires: (clinic) 01/17/2024 documented as of this encounter Procedures Procedure Name Priority Date/Time Associated Diagnosis Comme nts ADULT OXYGEN THERAPY Routine 01/16/2021 10:54 AM TIRE SORTER REPAIR HERNIA INGUINAL 01/16/2021 7:33 AM TIRE SORTER Hernia I nguinal Left WITH MESH documented in this encounter Visit Diagnoses Diagnosis Hernia Inguinal Left documented in this encounter Administered Medications Inactive Administered Medications - up to 3 most recent administrations Medication Order MAR Action Action Date Dose Rate Site acetaminophen tablet 1,000 mg Given 01/16/2021 11:38 AM TIRE SORTER 1,00 0 mg (TYLENOL) 1,000 mg, oral, Every 6 hours PRN, mild pain or score 1-3 of 10, Starting on Tue01/16/21 at 1054 bupivacaine-EPINEPHrine (PF) 0.25 Given 01/16/2021 10:25 AM TIRE SORTER 60 mL Left Groin %-1:200,000 injection (MARCAINE w/EPI) As needed, Starting on Tue01/16/21 at 1025, Intra-Op metoprolol tablet 12.5 mg (LOPRESSOR) 12.5 [...] Recently Administered Medications Times are shown in TIRE SORTER. Scheduled Medication Order 01/14/2021 01/15/2021 01/16/2021 heparin [...] (TYLENOL) 1138 (Given - Provider: Sena Davis RCarmineNCarmine) 1,000 mg, oral, Every 6 hours PRN, [...] 1054 documented in this encounter Care Teams Fire Extinguisher Technician Relationship Specialty Start Date End Date Elsewhere, Pcp PCP - General Family Medicine 10/25/18 documented as of this encounter
--- OUTSIDE RECORDS SUMMARY | 2022-08-27 11:26 | XMS_ITS | Encounter Summary ---
:1945 Author Organization [facility] Address [address] [place] [address] Care Team Providers Name Role Phone Elsewhere, Pcp Primary Care Provider Unavailable Reason for Visit Reason Onset Date Comments Med Rec 10/12/2019 Encounter Details Date Type Department Care Team Description 10/12/2019 Clinical Communication Department of Radha Ramos Rec Cardiovascular Medicine S, R.N. in [facility] [phone] [address] [facility] (Work) [place] [address] Social History Tobacco Use Types Packs/Day Years [...] More than 4 times per year 10/15/2019 bahai services? Do you belong to any clubs [...] or getting things needed for daily living? Sex Assigned at Date Recorded Male 03/01/2019 1:23 PM CDT documented as of this encounter Miscellaneous Notes Telephone Encounter - Radha Ramos R.N. - 10/12/2019 12:51 PM CST Attempted to reach patient via phone for medication reconciliation. Unable to reach patient. Medication reconciliation will be done in person. S PLANNING ANALYST documented in this encounter Plan of Treatment Upcoming Encounters Date Type Specialty Care Team Description 10/11/2022 Appointment Laboratory Medicine Natasha Mullins APRN, Radha.N.P., M.S.N. [address] [place] [phone] (Wo rk) 10/11/2022 Ancillary Procedure Cardiovascular Disease Natasha Cramer APRN, Radha.N.P., M.S.N. [address] [place] [phone] (Wo rk) 10/11/2022 Appointment Cardiovascular Disease Natasha Mullins APRN, Radha.N.P., M.S.N. [address] [place] [phone] (Wo rk) 10/12/2022 Office Visit Cardiovascular Disease Natasha Mullins APRN, C.N.P., M.S.N. [address] [place] [phone] (Wo rk) documented as of this encounter Visit Diagnoses Not on filedocumented in this encounter Care Teams Transportation Dispatcher Relationship Specialty Start Date End Date Elsewhere, Pcp PCP - General Family Medicine 10/25/18 documented as of this encounter
--- OUTSIDE RECORDS SUMMARY | 2022-08-27 11:26 | XMS_ITS | Encounter Summary ---
:1945 Author Organization [facility] Address [address] [place] [address] Care Team Providers Name Role Phone Elsewhere, Pcp Primary Care Provider Unavailable Encounter Details Date Type Department Care Team Description 09/05/2019 Hospital Encounter Department of Loni Wu Neoplasm Of Radiology, Jethro Love M.D. Thyroid (HCC) Building, in [address] [place] [phone] [place], [place] [phone] (Work) [phone] Social History Tobacco Use Types Packs/Day Years [...] 10/15/2019 organizations such as presybeterian groups, unions, fraternal or athletic groups, or [...] 2014 10 mg tablet mouth at bedtime. bisacodyL (DULCOLAX) 5 mg Take by mouth. 0 200905/27/2021 EC tablet calcium carbonate Chew 1 tablet 2 0 08/25/2015 (OS-ARLEEN) 1,250 mg (500 mg (two) times a day calcium) chewable tablet as needed. Heartburn. carvedilol (COREG) 25 mg Take 1 tablet (25 180 tablet 3 10/1410/15/2019 tablet mg total) by mouth 2 (two) times a day. cholecalciferol (VITAMIN Take 1 tablet by 0 08/2410/15/2020 D3) 1,000 Unit tablet mouth daily. clopidogrel (PLAVIX) 75 Take 1 tablet by 0 201810/15/2019 mg tablet mouth daily. fluticasone (FLONASE) 50 Administer 1 spray 0 03/201810/15/2020 mcg/actuation nasal spray into affected nostril(s) as needed. levothyroxine (SYNTHROID, Take 1 tablet (200 90 tablet 3 06/03/2020 LEVOTHROID) 200 mcg mcg total) by mouth tablet daily. lisinopril Take 1 tablet (40 30 tablet 11 10/25/2018 019 (PRINIVIL,ZESTRIL) 40 mg mg total) by mouth tablet daily. nitroglycerin (NITROSTAT) Place 1 tablet 0 201610/15/2019 0.4 mg SL tablet under the tongue as needed. Place 1 tab under the tongue at 1st sign of chest pain. If no relief in 5 minutes, call 911. Repeat dose every 5 minutes up to 2 additional doses if chest pain continue. Do not use with Viagra/sildenafil. polyethylene glycol Take by mouth. 0 07/10/2010 0 01/05/2021 (Miralax) 17 gram/dose oral powder rosuvastatin (CRESTOR) 40 Take 1 tablet (40 30 tablet 11 10/201810/15/2019 mg tablet mg total) by mouth daily. sildenafiL (Viagra) 100 Take by mouth. 0 07/10/20 10 01/05/2021 mg tablet zinc gluconate 50 mg Take 80 mg by mouth 0 10/15/2020 tablet daily with breakfast. documented as of this encounter Plan of Treatment Upcoming Encounters Date Type Specialty Care Team Description 10/11/2022 Appointment Laboratory Medicine Natasha Mullins APRN, C.N.P., M.S.N. [address] [place] [phone] (Joanie velázquez) 10/11/2022 Ancillary Procedure Cardiovascular Disease Natasha Cramer APRN, C.N.P., M.S.N. [address] [place] [phone] (Joanie velázquez) 10/11/2022 Appointment Cardiovascular Disease Natasha Mullins APRN, C.N.P., M.S.N. [address] [place] [phone] (Joanie velázquez) 10/12/2022 Office Visit Cardiovascular Disease Natasha Mullnis APRN, C.N.P., M.S.N. [address] [place] [phone] (Joanie velázquez) documented as of this encounter Procedures Procedure Name Priority Date/Time Associated Comments Diagnosis US HEAD NECK SOFT RAD - Routine 09/05/2019 12:48 Malignant Resul ts for this TISSUE (most inpatients PM CDT Neoplasm Of procedure a re in and all Thyroid (HCC) the results outpatients) section. documented in this encounter Results US Head Neck Soft Tissue (09/05/2019 12:48 PM CDT) Anatomical Region Laterality Modality Head and Neck, Ultrasound RST LOS, Ultrasound ARZ LOS, N/A Ultrasound Ultrasound FLA LOS Specimen (Source) Anatomical Collection Method Collection Time Re ceived Time Location / / Volume Laterality 09/05/2019 12:48 PM CDT Impressions 09/05/2019 12:56 PM CDT Multiple prominent lymph nodes are present in the neck bilaterally. No large solid and cystic or calcified n odes are present on today's exam after interval left neck dissection. 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 ?? Narrative 09/05/2019 12:56 PM CDT EXAM: US HEAD NECK SOFT TISSUE COMPARISON: 03/01/2019 ultrasound FINDINGS: Since 03/01/2019, interval lef t neck dissection for the previously seen large solid and cystic lymph nodes which were positive for metastatic papillary carcinoma. Several additional lymph nodes were involved by a low-grade B-cell lymphoma. Given the concurrent ma lignancies, accurate sonographic differentiation is limited. Multiple pro minent lymph nodes are present bilaterally. No internal calcification o r prominent cystic change is present on today's exam. 7 mm hypoechoic avascular nodule in the mid left bed is unchanged. Procedure Note Orville Enriquez M.D. - 09/05/2019Formatt ing of this note might be different from the original. EXAM: US HEAD NECK SOFT TISSUE COMPARISON: 03/01/2019 ultrasound FINDINGS: Since 03/01/2019, interval lef t neck dissection for the previously seen large solid and cystic lymph nodes which were positive for metastatic papillary carcinoma. Several additional lymph nodes were involved by a low-grade B-cell lymphoma. Given the concurrent ma lignancies, accurate sonographic differentiation is limited. Multiple pro minent lymph nodes are present bilaterally. No internal calcification o r prominent cystic change is present on today's exam. 7 mm hypoechoic avascular nodule in the mid left bed is unchanged. IMPRESSION: Multiple prominent lymph nodes are prese nt in the neck bilaterally. No large solid and cystic or calcified n odes are present on today's exam after interval left neck dissection. 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 Loni ALVARADO US PROCEDURES documented in this encounter Visit Diagnoses Diagnosis Malignant Neoplasm Of Thyroid (HCC) documented in this encounter Care Teams Product/Industry Consultant Relationship Specialty Start Date End Date Elsewhere, Pcp PCP - General Family Medicine 10/25/18 documented as of this encounter
--- OUTSIDE RECORDS SUMMARY | 2022-08-27 11:26 | XMS_ITS | Encounter Summary ---
:1945 Author Organization [facility] Address [address] [place] [address] Care Team Providers Name Role Phone Elsewhere, Pcp Primary Care Provider Unavailable Reason for Visit Reason Comments Communication med questions Encounter Details Date Type Department Care Team Description 02/14/2020 Clinical Department of Chai Communication (med Communication Cardiovascular radha Fagan) Medicine in [place], [place] C.N.P., M.S.N. [address] [facility] [address] [place] [phone] Social History Tobacco Use Types Packs/Day Years [...] this encounter Miscellaneous Notes Telephone Encounter - Michaela Lentz RCarmineN. - 02/15/2020 3:13 PM CDT RN spoke with patient and recommended continuing management of condition with local provider. Gave Natasha's recommendations to start aspirin again after 7 days. Will reach out if he decides he wants topursue phone consult with urology here. Telephone Encounter - Satish Armas - 02/14/2020 3:12 PM CDT Michaela patient called again. He said he is returning your call. Please call him back on cell [phone]. Thanks, Satish- Restoration Technician Telephone Encounter - Michaela Lentz R.N. - 02/14/2020 1:53 PM CDT Saw PCP, Dr. Currie, yesterday 02/12 (notes in care everywhere). Will forward to provider for recommendations. Telephone Encounter - Michaela Lentz R.N. - 02/14/2020 1:52 PM CDT Images from the original note were not included. Telephone Encounter - Satish Armas - 02/14/2020 10:34 AM CDT Mr. Khanna is calling in today with a question. He was seen at [facility] by Dr. Currie, and instructed (can see in Care Everywhere- phone consult) to hold his baby Asprin and Plavix for 1 week. He is having some urinary bleeding. He asking if this is Okay? He also is asking to be seen/phone call consult with urology here at [place]. Please call him back at [phone]. Thank you, Satish- Restoration Technician documented in this encounter Plan of Treatment Upcoming Encounters Date Type Specialty Care Team Description 10/11/2022 Appointment Laboratory Medicine Natasha Mullins APRN, Radha.N.P., M.S.N. [address] [place] [phone] (Wo rk) 10/11/2022 Ancillary Procedure Cardiovascular Disease Natasha Cramer APRN, C.N.P., M.S.N. [address] [place] [phone] (Wo rk) 10/11/2022 Appointment Cardiovascular Disease Natasha Mullins APRN, Radha.N.P., M.S.N. [address] [place] [phone] (Wo rk) 10/12/2022 Office Visit Cardiovascular Disease Natasha Mullins APRN, Radha.N.P., M.S.N. [address] [place] [phone] (Wo rk) documented as of this encounter Visit Diagnoses Not on filedocumented in this encounter Care Teams Prop Sawyer Relationship Specialty Start Date End Date Elsewhere, Pcp PCP - General Family Medicine 10/25/18 documented as of this encounter
--- OUTSIDE RECORDS SUMMARY | 2022-08-27 11:26 | XMS_ITS | Encounter Summary ---
:1945 Author Organization [facility] Address [address] [place] [address] Care Team Providers Name Role Phone Elsewhere, Pcp Primary Care Provider Unavailable Reason for Referral Outpatient (Routine) - Closed Specialty Diagnoses / Procedures Referred By Contact Refer red To Contact Otorhinolaryngology Wilbert Child M.D. [address] [phone] Referral ID Status Reason Start Date Expiration Date Visits Requ ested Visits Authorized [id number] Closed 04/18/2019 04/17/2020 1 1 Scheduling Instructions rtn with CHRISTIANO Encounter Details Date Type Department Care Team Description 04/18/2019 Orders Only Department of Wilbert Child Otorhinolaryngology in [place] [address] [phone] Social History Tobacco Use Types Packs/Day [...] Medicine Natasha Mullins APRN, Radha.N.Jalen, M.S.N. [address] [place] [phone] (Wo rk) 10/11/2022 Ancillary Procedure Cardiovascular Disease Natasha Cramer APRN, C.N.Jalen, M.S.N. [address] [place] [phone] (Wo rk) 10/11/2022 Appointment Cardiovascular Disease Natasha Mullins APRN, C.N.Franklin., M.S.N. [address] [place] [phone] (Wo rk) 10/12/2022 Office Visit Cardiovascular Disease Natasha Mullins APRN, C.N.P., M.S.N. [address] [place] [phone] (Wo rk) Scheduled Referrals Name Type Priority Associated Order Schedule Diagnoses Otorhinolaryngology office Outpatient Routine E xpected: visit (clinic) Referral 06/26/2019 (Approximate), Expires: 04/18/2022 documented as of this encounter Visit Diagnoses Not on filedocumented in this encounter Care Teams [employer]aker [place] Relationship Specialty Start Date End Date Elsewhere, Pcp PCP - General Family Medicine 10/25/18 documented as of this encounter
--- OUTSIDE RECORDS SUMMARY | 2022-08-27 11:26 | XMS_ITS | Encounter Summary ---
:1945 Author Organization [facility] Address [address] [place] [address] Care Team Providers Name Role Phone Elsewhere, Pcp Primary Care Provider Unavailable Encounter Details Date Type Department Care Team Description 09/05/2019 Hospital Encounter Department of Loni Wu Neoplasm Of Laboratory Medicine [place] Thyroid (HCC) and Pathology, [address] [place] [address] in [place], [place] [phone] [place] [address] [place], [place] (Work) [phone] Social History Tobacco Use [...] or relatives? How often do you attend anabaptism or More than 4 times per year 10/15/2019 hindu services? Do you belong to any clubs or Yes 10/15/2019 organizations such as anabaptism groups, unions, fraternal or athletic groups, or [...] nasal spray into affected nostril(s) as needed. lisinopril Take 1 tablet (40 30 tablet [...] Medicine Natasha Mullins APRN, Radha.N.P., M.S.N. [address] [place] [phone] (Wo rk) 10/11/2022 Ancillary Procedure Cardiovascular Disease Natasha Cramer APRN, Radha.N.P., M.S.N. [address] [place] [phone] (Wo rk) 10/11/2022 Appointment Cardiovascular Disease Natasha Mullins APRN, Radha.N.P., M.S.N. [address] [place] [phone] (Wo rk) 10/12/2022 Office Visit Cardiovascular Disease Natasha Mullins APRN, Radha.N.P., M.S.N. [address] [place] [phone] (Wo rk) documented as of this encounter Procedures Procedure Name Priority Date/Time Associated Diagnosis Comme nts THYROGLOBULIN, TM, Routine 09/05/2019 10:32 AM Malignant Neopl asm Results for this S CDT Of Thyroid (HCC) procedure a re in the results section. THYROID-STIMULATING Routine 09/05/2019 10:32 AM Malignant Neop lasm Results for this HORMONE-SENSITIVE CDT Of Thyroid (HCC) proced ure are in (S-TSH) the results section. T4 (THYROXINE), Routine 09/05/2019 10:32 AM Malignant Neoplasm Results for this FREE, S CDT Of Thyroid (HCC) procedure a re in the results section. documented in this encounter Results (ABNORMAL) S-TSH (Thyroid-Stimulating Hormone - Sensitive) (09/05/2019 10:32 AM CDT) P athologist Signature TSH, Sensitive 0.04 (L) 0.3 - 4.2 09/05/2019 DTL mIU/L 11:47 AM CDT Specimen Anatomical Collection Method Collection Time Receive d Time (Source) Location / / Volume Laterality Blood (Blood, 09/05/2019 10:32 09/05/2019 Venous) AM CDT 10:53 AM CDT Loni Wu M.D. LAB BLOOD ADD-ON Performing Organization Address City/State/ZIP Code Phon e Number [facility] - [address] [place], [place] [address] [facility] [place] [address] Laboratories-[facility] [address] (ABNORMAL) Thyroglobulin, Tumor Marker (09/05/2019 10:32 AM CDT) Patholo gist Method Time Signature Thyroglobulin 19 (H) <4.0 09/05/2019 [facility] Antibody, S IU/mL 3:08 PM CDT Thyroglobulin, 0.3 (H) ng/mL 09/05/2019 [facility] Tumor Marker, S 3:00 PM CDT Comment: ----REFERENCE VALUE---- Athyrotic <0.1 Intact Thyroid <=33 Thyroglobulin Interpretation SEE COMMENT 9 3:08 PM CDT [facility] Comment: Quantitation of thyroglobulin may be unr eliable due to the presence of anti-thyroglobulin antibodie s. Thyroglobulin (Tg) levels must be interp reted in the context of TSH levels, serial Tg measurements an d radioiodine ablation status. ??Tg levels of 0.1-2.0 ng/mL in athyrotic individuals on suppressive therapy indic ate a low risk of clinically detectable recurrent papillar y/follicular thyroid cancer. ?? ----ADDITIONAL INFORMATION---- PLEASE NOTE: Thyroglobulin flagging is b ased on athyrotic reference values. The thyroglobulin and thyroglobulin anti body testing methods are immunoenzymatic assays manufactured by [employer] and performed on the [employer] DXI 800 . Values obtained from different assay met hods or kits may be different and cannot be used inte rchangeably. The results cannot be interpreted as abs olute evidence for the presence or absence of malignant disease. Specimen Anatomical Collection Method Collection Time Receive d Time (Source) Location / / Volume Laterality Blood (Blood, 09/05/2019 10:32 09/05/2019 1:41 Venous) AM CDT PM CDT Loni Wu M.D. LAB BLOOD ADD-ON Performing Organization Address City/[facility]/ZIP Code Phon e Number [facility] [address] [place] [address] [place] [address] [facility] [place] [address] Laboratory Medicine and Pathology [address] [place] T4 (Thyroxine), Free (09/05/2019 10:32 AM CDT) P athologist Signature T4 (Thyroxine), 1.7 0.9 - 1.7 09/05/2019 DTL Free, S ng/dL 11:47 AM CDT Specimen Anatomical Collection Method Collection Time Receive d Time (Source) Location / / Volume Laterality Blood (Blood, 09/05/2019 10:32 09/05/2019 Venous) AM CDT 10:53 AM CDT Loni Wu M.D. LAB BLOOD ADD-ON Performing Organization Address City/[facility] Code Phon e Number [facility] - [address] [place], [place] [address] [facility] [place] [address] Laboratories-[facility] [address] documented in this encounter Visit Diagnoses Diagnosis Malignant Neoplasm Of Thyroid (HCC) documented in this encounter Care Teams Crap Game Box Person Relationship Specialty Start Date End Date Elsewhere, Pcp PCP - General Family Medicine 10/25/18 documented as of this encounter
--- OUTSIDE RECORDS SUMMARY | 2022-08-27 11:26 | XMS_ITS | Encounter Summary ---
:1945 Author Organization [facility] Address [address] [place] [address] Care Team Providers Name Role Phone Elsewhere, Pcp Primary Care Provider Unavailable Reason for Referral Outpatient (Routine) - Closed Specialty Diagnoses / Procedures Referred By Contact Refer red To Contact Endocrinology Loni Wu M .D. [address] [phone] Referral ID Status Reason Start Date Expiration Date Visits Requ ested Visits Authorized [id number] Closed 09/05/2019 09/04/2020 1 1 Reason for Visit Reason Comments Return Visit Outpatient (Routine) - Closed Specialty Diagnoses / Procedures Referred By Contact Refer red To Contact Endocrinology Loni Wu M .D. [address] [phone] Referral ID Status Reason Start Date Expiration Date Visits Requ ested Visits Authorized [id number] Closed 06/26/2019 06/25/2020 1 1 Encounter Details Date Type Department Care Team Description 09/05/2019 Office Visit Division of Loni Wu Malignant Neopl asm Of Thyroid Papillary (HCC) (Primary Dx); Endocrinology in [place] Unspecified B Cell Lymphoma Lymph Nodes Of Multiple Sites (HCC) [address] [place] [phone] Social History Tobacco Use Types Packs/Day Years [...] More than 4 times per year 10/15/2019 zoroastrianism services? Do you belong to any clubs [...] Sign Reading Time Taken Comments Blood Pressure 109/73 09/05/2019 4:30 PM CDT Pulse 86 09/05/2019 4:30 PM CDT Temperature - - Respiratory Rate - - Oxygen Saturation - - Inhaled Oxygen Concentration - - Weight 76.2 kg (167 lb 15.9 oz) 09/05/2019 4:30 PM CDT Height 175.4 cm (5' 9.06) 09/05/2019 4:30 PM CDT Body Mass Index 24.77 09/05/2019 4:30 PM CDT documented in this encounter Progress Notes Loni Wu M.D. - 09/05/2019 4:30 PM CDT SUBJECTIVE CHIEF COMPLAINT / REASON FOR VISIT Levi Khanna is a 74 y.o. male who presents for follow-up of thyroid cancer HISTORY OF PRESENT ILLNESS since I last saw Mr. Khanna he underwent a left modified neck dissection by Dr. Carr and in this procedure a total of 23 lymph nodes were removed two of which proved to be metastatic PTC. The largest tumor deposit measured 4.1 cm. 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 He voices no acute concerns. He is now on 200 mcg of levothyroxine with adequate TSH suppression. His thyroglobulin has come down remarkably from 19 in February to 0.3 at present. His neck ultrasound shows still the presence of some adenopathy but this is thought to be more likely related to his low-grade lymphoma as none of the lymph nodes has a typical features of metastatic PTC. The level of thyroglobulin antibodies has also declined remarkably from 256 in February to 19at present indicating an excellent response to treatment. Current Outpatient Medications: ??? albuterol (PROVENTIL HFA,VENTOLIN HFA) 90 mcg/actuation inhaler, Inhale 1-2 puffs as needed for wheezing or shortness of breath. , Disp: , Rfl: ??? aspirin [address] tablet, Take 81 mg by mouth daily. Take for life. , Disp: , Rfl: ??? calcium carbonate (OS-ARLEEN) 1,250 mg (500 mg calcium) chewable tablet, Chew 1 tablet 2 (two) times a day as needed. Heartburn., Disp: , Rfl: ??? carvedilol (COREG) 25 mg tablet, Take 1 tablet (25 mg total) by mouth 2 (two) times a day., Disp: 180 tablet, Rfl: 3 ??? cetirizine (ZyrTEC) 10 mg tablet, Take 10 mg by mouth daily. , Disp: , Rfl: ??? cholecalciferol (VITAMIN D3) 1,000 Unit tablet, Take 1 tablet by mouth daily., Disp: , Rfl: ??? clopidogrel (PLAVIX) 75 mg tablet, Take 1 tablet by mouth daily., Disp: , Rfl: ??? fluticasone (FLONASE) 50 mcg/actuation nasal spray, Administer 1 spray into affected nostril(s) daily. , Disp: , Rfl: ??? fluticasone-salmeterol (ADVAIR DISKUS) 250-50 mcg/dose diskus inhaler, Inhale 1 puff daily., Disp: , Rfl: ??? levothyroxine (SYNTHROID, LEVOTHROID) 200 mcg tablet, Take 1 tablet (200 mcg total) by mouth daily., Disp: 90 tablet, Rfl: 3 ??? lisinopril (PRINIVIL,ZESTRIL) 40 mg tablet, Take 1 tablet (40 mg total) by mouth daily., Disp: 30 tablet, Rfl: 11 ??? montelukast (SINGULAIR) 10 mg tablet, Take 1 tablet by mouth at bedtime., Disp: , Rfl: ??? nitroglycerin (NITROSTAT) 0.4 mg SL tablet, Place 1 tablet under the tongue as needed. Place 1 tab under the tongue at 1st sign of chest pain. If no relief in 5 minutes, call 911. Repeat dose every5 minutes up to 2 additional doses if chest pain continue. Do not use with Viagra/sildenafil., Disp:, Rfl: ??? rosuvastatin (CRESTOR) 40 mg tablet, Take 1 tablet (40 mg total) by mouth daily., Disp: 30 tablet, Rfl: 11 ??? zinc gluconate 50 mg tablet, Take 50 mg by mouth daily with breakfast., Disp: , Rfl: OBJECTIVE PHYSICAL EXAM Physical Exam Height 175.4 cm; weight 76.2 kg; pulse 86; blood pressure 109/73 Neck exam healed thyroidectomy scar extending to the left upper lateral neck to the region of the left jaw. I cannot appreciate any significant adenopathy. There is no palpable residual thyroid tissue Lungs; clear to auscultation bilateral Heart: Regular without murmurs Extremities: No edema,clubbing, or cyanosis Recent Results (from the past 72 hour(s)) T4 (Thyroxine), Free Collection Time: 09/05/19 10:32 AM Result Value T4 (Thyroxine), Free, S 1.7 Thyroglobulin, Tumor Marker Collection Time: 09/05/19 10:32 AM Result Value Thyroglobulin Antibody, S 19 (H) Thyroglobulin, Tumor Marker, S 0.3 (H) Thyroglobulin Interpretation SEE COMMENT S-TSH (Thyroid-Stimulating Hormone - Sensitive) Collection Time: 09/05/19 10:32 AM Result Value TSH, Sensitive, S 0.04 (L) ASSESSMENT / PLAN #1 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 His thyroglobulin has dropped significantly as have alsothe antibody levels all of which is very reassuring. I would like for him to continue current dose of levothyroxine with a goal of keeping some level of TSH suppression and reduce risk of recurrence. Is tolerating this quite well without any side effects at present I have renewed his prescription and I will plan to see him back again with repeat labs and ultrasound in approximately six months. With regard to his low-grade B-cell lymphoma, he would like to follow-up with hematology here at [place]. 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 I have also asked him to get in touch with his kosher dietary service manager to request a follow-up appointment which could potentially be coordinated we his return visit with me in six months or sooner if it is deemed necessary. documented in this encounter Plan of Treatment Upcoming Encounters Date Type Specialty Care Team Description 10/11/2022 Appointment Laboratory Medicine Natasha Mullins APRN, Radha.N.P., M.S.N. [address] [place] [phone] (Joanie velázquez) 10/11/2022 Ancillary Procedure Cardiovascular Disease Natasha Cramer APRN, C.N.P., M.S.N. [address] [place] [phone] (Joanie velázquez) 10/11/2022 Appointment Cardiovascular Disease Natasha Mullins APRN, C.N.P., M.S.N. [address] [place] [phone] (Joanie velázquez) 10/12/2022 Office Visit Cardiovascular Disease Natasha Mullins APRN, Radha.N.P., M.S.N. [address] [place] [phone] (Joanie velázquez) Scheduled Referrals Name Type Priority Associated Order Schedule Diagnoses Endocrinology office Outpatient Referral Routine Expected: visit (clinic) 03/06/2020 (Approximate), Expires: 09/05/2022 documented as of this encounter Results US [...] cystic change or microcalcifications favors lymphoma. Loni Wu M.D. IMG US PROCEDURES (ABNORMAL) S-TSH (Thyroid-Stimulating Hormone - Sensitive) (04/28/2020 8:19 AM CDT) athologist Signature TSH, Sensitive 0.05 (L) 0.3 - 4.2 04/28/2020 DTL mIU/L 9:20 AM CDT Specimen Anatomical Collection Method Collection Time Receive d Time (Source) Location / / Volume Laterality Blood (Blood, 04/28/2020 8:19 AM 04/28/20 8:46 Venous) CDT AM CDT Loni Wu M.D. LAB BLOOD ADD-ON Performing Organization Address [facility] Phon e Number [facility] - [address] (ABNORMAL) T4 (Thyroxine), Free (04/28/2020 8:19 AM CDT) athologist Signature T4 1.9 (H) 0.9 - 1.7 04/28/2020 DTL (Thyroxine), ng/dL 9:20 AM CDT Free, S Specimen Anatomical Collection Method Collection Time Receive d Time (Source) Location / / Volume Laterality Blood (Blood, 04/28/2020 8:19 AM 04/28/20 8:46 Venous) CDT AM CDT Loni Wu M.D. LAB BLOOD ADD-ON Performing Organization Address City/[facility] Phon e Number [facility] - [address] [place] [address] (ABNORMAL) Thyroglobulin, Tumor Marker (04/28/2020 8:19 AM CDT) [facility] gist Method Time Signature Thyroglobulin 32 (H) <1.8 04/28/2020 [facility] Antibody, S IU/mL 5:50 PM CDT Thyroglobulin, 0.9 (H) ng/mL 04/28/2020 [facility] Tumor Marker, S 5:47 PM CDT Comment: ----REFERENCE VALUE---- Athyrotic <0.1 Intact Thyroid <=33 Thyroglobulin Interpretation SEE COMMENT 0 5:50 PM CDT [facility] Comment: Quantitation of thyroglobulin may [...] testing methods are immunoenzymatic assays manufactured by [employer] and performed on the [employer] DXI 800 . Values obtained from different assay met hods or kits may be different and cannot be used inte rchangeably. The results cannot be interpreted as abs olute evidence for the presence or absence of malignant disease. Specimen Anatomical Collection Method Collection Time Receive d Time (Source) Location / / Volume Laterality Blood (Blood, 04/28/2020 8:19 AM 04/28/20 20 4:19 Venous) CDT PM CDT Loni Wu M.D. LAB BLOOD ADD-ON Performing Organization Address City/State/ZIP Code Phon e Number [facility] [address] [place], [place] [address] [facility] [place] [address] Laboratory Medicine and Pathology [address] [place] documented in this encounter Visit Diagnoses Diagnosis Malignant Neoplasm Of Thyroid Papillary (HCC) - Primary Unspecified B Cell Lymphoma Lymph Nodes Of Multiple Sites (HCC) Malignant Neoplasm Of Thyroid Papillary (HCC) Unspecified B Cell Lymphoma Lymph Nodes Of Multiple Sites (HCC) documented in this encounter Care Teams Manager Night Relationship Specialty Start Date End Date Elsewhere, Pcp PCP - General Family Medicine 10/25/18 documented as of this encounter
--- OUTSIDE RECORDS SUMMARY | 2022-08-27 11:26 | XMS_ITS | Encounter Summary ---
:1945 Author Organization [facility] Address [address] [place] [address] Care Team Providers Name Role Phone Elsewhere, Pcp Primary Care Provider Unavailable Encounter Details Date Type Department Care Team Description 04/25/2020 Clinical Communication Division of Dionicio Muniz , Hematology in Dante Garcia M.D. [place], [place] [address] [place] [address] [address] [place] [phone] [phone] Social History Tobacco Use Types Packs/Day Years [...] More than 4 times per year 10/15/2019 jew services? Do you belong to any clubs [...] this encounter Miscellaneous Notes Telephone Encounter - Amy Michel Blu - 04/25/2020 12:19 PM CDT (Note for [facility] locations only: If the patient states they are asking for testing because attended a protest, cheek, community cleanup or other mass gathering in the last 7 days and is asking for testing, complete the below questions and transfer to the COVID Nurse Line). 1. Do you have a pending COVID test because you had symptoms or exposure to someone with COVID or you have tested positive for COVID in the last 30 days? No 2. In the past 14 days, do you, anyone in the household, or anyone you have had prolonged exposure have any of the following? a. Fever greater than or equal to 37.8 C (100.0 F)?No b. New symptoms (Specifically: headache, cough, shortness of breath, respiratory distress, sore throat, diarrhea, nausea, vomiting, chills and repeated shaking with chills, myalgia's (muscle aches), loss of smell, or change or loss of taste sensation)? No Had close contact with a patient with known or possible COVID-19 in the last 14 days? no Route reply to: [email or web address] Scheduling Contact Number:[id number] documented in this encounter Plan of Treatment Upcoming Encounters Date Type Specialty Care Team Description 10/11/2022 Appointment Laboratory Medicine Natasha Mullins APRN, Radha.N.P., M.S.N. [address] [place] [phone] (Joanie velázquez) 10/11/2022 Ancillary Procedure Cardiovascular Disease Natasha Cramer APRN, Radha.N.P., M.S.N. [address] [place] [phone] (Joanie velázquez) 10/11/2022 Appointment Cardiovascular Disease Natasha Mullins APRN, Radha.N.P., M.S.N. [address] [place] [address] [phone] (Joanie velázquez) 10/12/2022 Office Visit Cardiovascular Disease Natasha Mullins APRN, C.N.P., M.S.N. [address] [place] [address] (Wo rk) documented as of this encounter Visit Diagnoses Not on filedocumented in this encounter Care Teams Speech And Hearing Director Relationship Specialty Start Date End Date Elsewhere, Pcp PCP - General Family Medicine 10/25/18 documented as of this encounter
--- OUTSIDE RECORDS SUMMARY | 2022-08-27 11:26 | XMS_ITS | Encounter Summary ---
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 [address] [place] [address] Referral ID Status Reason Start Date Expiration Date Visits Requ ested Visits Authorized [id number] Closed 09/06/2019 09/05/2020 1 1 Encounter Details Date Type Department Care Team Description 09/06/2019 Orders Only Division of Dionicio Muniz, Unspecif ied B Cell Hematology in Dante Garcia M.D. Lymphoma Lymph Nodes [place], [place] 200 [facility] 200 [place], [place] (HCC) (Primary Dx) [place] [phone] Social History Tobacco Use Types Packs/Day Years [...] Medicine Natasha Mullins APRN, C.N.P., M.S.N. [address] [place] [address] [phone] (Joanie velázquez) 10/11/2022 Ancillary Procedure Cardiovascular Disease Natasha Cramer APRN, C.N.P., M.S.N. [address] [place] [address] [phone] (Joanie velázquez) 10/11/2022 Appointment Cardiovascular Disease Natasha Mullins APRN, Radha.N.P., M.S.N. [address] [place] [address] [phone] (Joanie velázquez) 10/12/2022 Office Visit Cardiovascular Disease Natasha Mullins APRN, Radha.N.P., M.S.N. [address] [place] [address] [phone] (Joanie velázquez) Scheduled Referrals Name Type Priority Associated Order Schedule Diagnoses Hematology office Outpatient Referral Routine Exp ected: visit (clinic) 03/07/2020 (Approximate), Expires: 09/06/2022 documented as of this encounter Results PET CT Skull to Thigh FDG (04/28/2020 11:15 AM CDT) Anatomical Region Laterality Modality Body, Nuclear Medicine PET RST LOS, N/A Posi terry Emission Tomography (PET), PET ARZ LOS, Nuclear Medicine PET FLA Po sitron Emission Tomography (PET) LOS, Nuclear Medicine Specimen (Source) Anatomical Collection Method Collection Time Re ceived Time Location / / Volume Laterality 04/28/2020 11:16 AM CDT Impressions 04/28/2020 11:45 AM CDT 1. No findings for recurrent/residual lymphoma. Deauville response score = 1. 2. Recommend direct visualization of laurence mal/subcutaneous focal activity in the left temporoparietal scalp. 3. Tiny focus of mildly increased activi ty within the right side of the prostate gland corresponding to dense calcificati ons, therefore favored related to BPH, but a small focus of prostate cancer wou ld appear similar. This is unchanged since the prior. Narrative 04/28/2020 11:45 AM CDT EXAM: ??PET CT SKULL TO THIGH FDG Serum glucose at time of F-18 FDG inject ion was 103 mg/dL. Patient followed standard dietary/fasting requirements fo r this exam. RADIOPHARMACEUTICAL/MEDS: Route: intravenous fludeoxyglucose F 18 injection CARE HOME (FDG F-18),14.81 millicurie TECHNIQUE: ??F-18 FDG PET/CT scan was pe rformed from the orbits through the thighs with CT fusion imaging for attenu ation correction and anatomic coregistration only, with imaging beginn ing at approximately 60 minutes after radiotracer injection. COMPARISON: ??Outside FDG PET 02/15/2019 . INDICATION: ??B-cell lymphoma. Detected incidentally during management of papillary thyroid cancer in November 2015 . No known interval therapy. Personal history of papillary thyroid cancer stat us post total thyroidectomy, lymphadenectomy, and radioiodine therapy . Subsequent treatment strategy. FINDINGS: ?? Since 02/15/2019, interval select left n harrison dissection including removal of prior FDG avid left cervical nodes. Only non-focal ill-defined post-surgical activity in the left neck. There are no abnormal FDG avid lymph nodes above or below the diaphragm. The spleen is jack l in size, measuring up to 9.0 cm maximal coronal dimension and FDG activi ty. Marrow activity is normal as well. Approximately 2.0 cm focus of abnormal d ermal/subcutaneous activity along the left temporoparietal scalp (image 4). Th is was outside of the field of view on the prior PET/CT. Tiny focus of activity within the right samy-midline prostate gland corresponding to dense calcificati ons, therefore likely related to BPH, but small focus of prostate cancer could have the same appearance. This is not appreciably changed since the prior. Sub centimeter faintly FDG avid right hilar lymph node, unchanged from the prior and all certainly reactive. Mild metabolically active left gynecomastia. Imaging of the FDG activity is physiologic. Significant incidental findings on the l ow-dose unenhanced CT fusion images: Fluid level within the right maxillary s inus with polypoid mucosal thickening in the left maxillary sinus. Calcified athe rosclerotic disease including the carotid and coronary arteries, with dens e involvement of the LAD. Total thyroidectomy. Right renal cysts. Prosta tomegaly. Bilateral L5 pars defects. Procedure Note Rodrick Nelson M.D. - 04/28/2020Form atting of this note might be different from the original. EXAM: PET CT SKULL TO THIGH FDG Serum glucose at time of F-18 FDG inject ion was 103 mg/dL. Patient followed standard dietary/fasting requirements fo r this exam. RADIOPHARMACEUTICAL/MEDS: Route: intravenous fludeoxyglucose F 18 injection CARE HOME (FDG F-18),14.81 millicurie TECHNIQUE: F-18 FDG PET/CT scan was perf ormed from the orbits through the thighs with CT fusion imaging for attenu ation correction and anatomic coregistration only, with imaging beginn ing at approximately 60 minutes after radiotracer injection. COMPARISON: Outside FDG PET 02/15/2019. INDICATION: B-cell lymphoma. Detected in cidentally during management of papillary thyroid cancer in November 2015 . No known interval therapy. Personal history of papillary thyroid cancer stat us post total thyroidectomy, lymphadenectomy, and radioiodine therapy . Subsequent treatment strategy. FINDINGS: Since 02/15/2019, interval select left n harrison dissection including removal of prior FDG avid left cervical nodes. Only non-focal ill-defined post-surgical activity in the left neck. There are no abnormal FDG avid lymph nodes above or below the diaphragm. The spleen is jack l in size, measuring up to 9.0 cm maximal coronal dimension and FDG activi ty. Marrow activity is normal as well. Approximately 2.0 cm focus of abnormal d ermal/subcutaneous activity along the left temporoparietal scalp (image 4). Th is was outside of the field of view on the prior PET/CT. Tiny focus of activity within the right samy-midline prostate gland corresponding to dense calcificati ons, therefore likely related to BPH, but small focus of prostate cancer could have the same appearance. This is not appreciably changed since the prior. Sub centimeter faintly FDG avid right hilar lymph node, unchanged from the prior and all certainly reactive. Mild metabolically active left gynecomastia. Imaging of the FDG activity is physiologic. Significant incidental findings on the l ow-dose unenhanced CT fusion images: Fluid level within the right maxillary s inus with polypoid mucosal thickening in the left maxillary sinus. Calcified athe rosclerotic disease including the carotid and coronary arteries, with dens e involvement of the LAD. Total thyroidectomy. Right renal cysts. Prosta tomegaly. Bilateral L5 pars defects. IMPRESSION: 1. No findings for recurrent/residual ly mphoma. Deauville response score = 1. 2. Recommend direct visualization of laurence mal/subcutaneous focal activity in the left temporoparietal scalp. 3. Tiny focus of mildly increased activi ty within the right side of the prostate gland corresponding to dense calcificati ons, therefore favored related to BPH, but a small focus of prostate cancer wou ld appear similar. This is unchanged since the prior. Dante ALVARADO NM PROCEDURES Potassium (04/28/2020 8:19 AM CDT) P athologist Signature Potassium, S 4.8 3.6 - 5.2 04/28/2020 DTL mmol/L 9:20 AM CDT Specimen Anatomical Collection Method Collection Time Receive d Time (Source) Location / / Volume Laterality Blood (Blood, 04/28/2020 8:19 AM 04/28/20 20 8:46 Venous) CDT AM CDT Dante Muniz M.D. LAB BLOOD ADD-ON Performing Organization Address City/State/ZIP Code Phon e Number [facility] - [address] [place] [id number] [address] LD (Lactate Dehydrogenase) (04/28/2020 8:19 AM CDT) [facility] LD 174 122 - 222 04/28/2020 DTL U/L 12:47 PM CDT Specimen Anatomical Collection Method Collection Time Receive d Time (Source) Location / / Volume Laterality Blood (Blood, 04/28/2020 8:19 AM 04/28/20 9:18 Venous) CDT AM CDT Dante Muniz M.D. LAB BLOOD NON ADD-ON Performing Organization Address City/[facility] Phon e Number [facility] - [address] Creatinine with Estimated GFR (04/28/2020 8:19 AM CDT) [facility] Creatinine 0.84 0.74 - 04/28/2020 DT 1.35 mg/dL 9:20 AM CDT eGFR-Non 85 >=60 04/28/2020 DTL Black/ mL/min/BSA 9:20 AM CDT Ethiopian Comment: ----ADDITIONAL INFORMATION---- Estimated GFR calculated using the 2009 CKD_EPI creatinine equation. eGFR-Black/ >90 >=60 mL/min/BSA 2019 9:20 AM CDT DTL Comment: ----ADDITIONAL INFORMATION---- Estimated GFR calculated using the 2009 CKD_EPI creatinine equation. Specimen Anatomical Collection Method Collection Time Receive d Time (Source) Location / / Volume Laterality Blood (Blood, 04/28/2020 8:19 AM 04/28/20 20 8:46 Venous) CDT AM CDT Authorizing Provider Result Manuel Muniz M.D. LAB BLOOD ADD-ON Performing Organization Address City/State/ZIP Code Phon e Number [facility] - [address] [place] [address] [address] [place] [address] Laboratories-[facility] [address] (ABNORMAL) CBC with Differential, Blood (04/28/2020 8:19 AM CDT) [facility] Method Time Signature Hemoglobin 14.4 13.2 - 04/28/2020 DTL 16.6 g/dL 8:50 AM CDT Hematocrit 42.2 38.3 - 04/28/2020 DTL 48.6 % 8:50 AM CDT Erythrocytes 4.61 4.35 - 04/28/2020 DTL 5.65 8:50 AM CDT x10(12)/L MCV 91.5 78.2 - 04/28/2020 DTL 97.9 fL 8:50 AM CDT RBC Distrib Width 13.0 11.8 - 04/28/2020 DTL 14.5 % 8:50 AM CDT Platelet Count 200 135 - 317 04/28/2020 DTL x10(9)/L 8:50 AM CDT Leukocytes 5.3 3.4 - 9.6 04/28/2020 DTL x10(9)/L 8:50 AM CDT Neutrophils 2.76 1.56 - 04/28/2020 DTL 6.45 8:50 AM CDT x10(9)/L Lymphocytes 1.53 0.95 - 04/28/2020 DTL 3.07 8:50 AM CDT x10(9)/L Monocytes 0.44 0.26 - 04/28/2020 DTL 0.81 8:50 AM CDT x10(9)/L Eosinophils 0.53 (H) 0.03 - 04/28/2020 DTL 0.48 8:50 AM CDT x10(9)/L Basophils <0.03 0.01 - 04/28/2020 DTL 0.08 8:50 AM CDT x10(9)/L Specimen Anatomical Collection Method Collection Time Receive d Time (Source) Location / / Volume Laterality Blood (Blood, 04/28/2020 8:19 AM 04/28/20 20 8:37 Venous) CDT AM CDT Dante Muniz M.D. LAB BLOOD ADD-ON Performing Organization Address City/State/ZIP Code Phon e Number [facility] - [address] [place] [address] [facility] (ABNORMAL) Calcium, Total (04/28/2020 8:19 AM CDT) athologist Signature Calcium, 8.7 (L) 8.8 - 10.2 04/28/2020 DT Total, S mg/dL 9:20 AM CDT Specimen Anatomical Collection Method Collection Time Receive d Time (Source) Location / / Volume Laterality Blood (Blood, 04/28/2020 8:19 AM 04/28/20 20 8:46 Venous) CDT AM CDT Dante Muniz M.D. LAB BLOOD ADD-ON Performing Organization Address City/[facility] Phon e Number [address] Bilirubin, Total (04/28/2020 8:19 AM CDT) athologist Signature Bilirubin, 0.4 <=1.2 mg/dL 04/28/2020 DT Total, S 9:20 AM CDT Specimen Anatomical Collection Method Collection Time Receive d Time (Source) Location / / Volume Laterality Blood (Blood, 04/28/2020 8:19 AM 04/28/20 8:46 Venous) CDT AM CDT Dante Muniz M.D. LAB BLOOD ADD-ON Performing Organization Address City/State/[facility] Code Phon e Number [facility] - [address] AST (Aspartate Aminotransferase) (04/28/2020 8:19 AM CDT) Patholo gist Method Time Signature Aspartate 24 8 - 48 04/28/2020 DTL Aminotransferase U/L 9:20 AM CDT (AST), S Specimen Anatomical Collection Method Collection Time Receive d Time (Source) Location / / Volume Laterality Blood (Blood, 04/28/2020 8:19 AM 04/28/20 20 8:46 Venous) CDT AM CDT Dante Muniz M.D. LAB BLOOD ADD-ON Performing Organization Address City/[facility] Phon e Number [facility] - [address] [place] [address] 05 [place] [address] Laboratories-[address] Alkaline Phosphatase (04/28/2020 8:19 AM CDT) P athologist Signature Alkaline 106 40 - 129 04/28/2020 DTL Phosphatase, S U/L 9:20 AM CDT Specimen Anatomical Collection Method Collection Time Receive d Time (Source) Location / / Volume Laterality Blood (Blood, 04/28/2020 8:19 AM 04/28/20 20 8:46 Venous) CDT AM CDT Dante Muniz M.D. 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
--- OUTSIDE RECORDS SUMMARY | 2022-08-27 11:26 | XMS_ITS | Encounter Summary ---
:1945 Author Organization [facility] Address [address] [place] [address] Care Team Providers Name Role Phone Elsewhere, Pcp Primary Care Provider Unavailable Reason for Referral Outpatient (Routine) - Closed Specialty Diagnoses / Procedures Referred By Contact Refer red To Contact Endocrinology Loni Wu M .D. [place] [address] [place], [place] [address] Referral ID Status Reason Start Date Expiration Date Visits Requ ested Visits Authorized [id number] Closed 06/26/2019 06/25/2020 1 1 Encounter Details Date Type Department Care Team Description 06/26/2019 Orders Only Division of Endocrinology Loni Wu Ma lignant Neoplasm Of in [facility] milan Love M.D. Thyroid (HCC) (Primary [address] [facility] Dx) [place] [address] [place], [place] [phone] Social History Tobacco Use Types Packs/Day Years [...] More than 4 times per year 10/15/2019 nondenominational services? Do you belong to any clubs [...] Medicine Natasha Mullins APRN, Radha.N.P., M.S.N. [address] [place] [phone] (Wo rk) 10/11/2022 Ancillary Procedure Cardiovascular Disease Natasha Cramer APRN, C.N.P., M.S.N. [address] [place] [phone] (Wo rk) 10/11/2022 Appointment Cardiovascular Disease Natasha Mullins APRN, Radha.N.P., M.S.N. [address] [place] [phone] (Wo rk) 10/12/2022 Office Visit Cardiovascular Disease Natasha Mullins APRN, C.N.P., M.S.N. [address] [place] [phone] (Joanie rk) Scheduled Referrals Name Type Priority Associated Order Schedule Diagnoses Endocrinology office Outpatient Referral Routine Expected: visit (clinic) 09/03/2019 (Approximate), Expires: 06/26/2022 documented as of this encounter Results US Head Neck Soft Tissue (09/05/2019 12:48 PM CDT) Anatomical Region Laterality Modality Head and Neck, Ultrasound RST LOS, Ultrasound ARZ RIO, N/A Ultrasound Ultrasound FLA LOS Specimen (Source) [...] sonographic differentiation difficult. Loni ALVARADO US PROCEDURES (ABNORMAL) S-TSH (Thyroid-Stimulating Hormone - Sensitive) (09/05/2019 [...] Organization Address City/State/ZIP Code Phon e Number [facility] - [address] [place], [place] [address] [facility] [place] [address] [facility] [address] (ABNORMAL) Thyroglobulin, Tumor Marker (09/05/2019 10:32 AM CDT) [facility] Method Time Signature Thyroglobulin 19 (H) <4.0 09/05/2019 [facility] Antibody, S IU/mL 3:08 PM CDT Thyroglobulin, 0.3 (H) ng/mL 09/05/2019 [facility] Tumor Marker, S 3:00 PM CDT Comment: ----REFERENCE VALUE---- Athyrotic <0.1 Intact Thyroid <=33 Thyroglobulin Interpretation SEE COMMENT 9 3:08 PM CDT [facility] Comment: Quantitation of thyroglobulin may [...] testing methods are immunoenzymatic assays manufactured by [employer] and performed on the Scaffold DXI 800 . Values obtained from different [...] Organization Address City/State/ZIP Code Phon e Number [facility] [address] [place], [place] [address] [facility] [place] [address] Laboratory Medicine and Pathology [address] [...] Organization Address City/State/ZIP Code Phon e Number [facility] - [address] [place], [place] [address] [facility] [place] [place] [address] [facility] [address] documented in this encounter Visit Diagnoses Diagnosis Malignant Neoplasm Of Thyroid (HCC) - Pr imary Malignant Neoplasm Of Thyroid (HCC) documented in this encounter Care Teams Fork Lift Technician Relationship Specialty Start Date End Date Elsewhere, Pcp PCP - General Family Medicine 10/25/18 documented as of this encounter
--- OUTSIDE RECORDS SUMMARY | 2022-08-27 11:26 | XMS_ITS | Encounter Summary ---
:1945 Author Organization [facility] Address [address] [place] [address] Care Team Providers Name Role Phone Elsewhere, Pcp Primary Care Provider Unavailable Reason for Visit Reason Comments COVID Inquiry Encounter Details Date Type Department Care Team Description 06/02/2020 Clinical Communication Division of Loni Wu Endocrinology in [place], [place] [address] [facility] [address] [place] [phone] Social History Tobacco Use Types Packs/Day Years [...] More than 4 times per year 10/15/2019 presybeterian services? Do you belong to any clubs [...] this encounter Miscellaneous Notes Telephone Encounter - Jovanni Monique - 06/02/2020 10:13 AM CDT ([facility] and [place] [facility] locations only: If the patient is not having symptoms and is requesting COVID-19 Nasal Swab testing only, use the process listed in the COVID-19 Patient Requesting COVID PCR Test OTG COVID-19 [place] Patient Requesting COVID PCR Test). 1. Do you have a pending COVID test because you had symptoms or exposure to someone with COVID or you have tested positive for COVID in the last 30 days? no 2. In the past 14 days, do you, anyone in the household, or anyone you have had prolonged exposure have any of the following? a. Fever greater than or equal to 37.8 C (100.0 F)? no b. New symptoms (Specifically: headache, cough, shortness of breath, respiratory distress, sore throat, diarrhea, nausea, vomiting, chills and repeated shaking with chills, myalgia's (muscle aches), loss of smell, or change or loss of taste sensation)? no c. Had close contact with a patient with known or possible COVID-19 in the last 14 days? no Route reply to: Scheduling Contact Number: documented in this encounter Plan of Treatment Upcoming Encounters Date Type Specialty Care Team Description 10/11/2022 Appointment Laboratory Medicine Natasha Mullins APRN, Radha.NCarmineP., M.S.N. [address] [place] [phone] (Joanie velázquez) 10/11/2022 Ancillary Procedure Cardiovascular Disease Natasha Cramer APRN, Radha.N.P., M.S.N. [address] [place] [phone] (Joanie rk) 10/11/2022 Appointment Cardiovascular Disease Natasha Mullins APRN, Radha.N.P., M.S.N. [address] [place] [phone] (Joanie rk) 10/12/2022 Office Visit Cardiovascular Disease Natasha Mullins APRN, C.N.P., M.S.N. [address] [place] [address] (Wo rk) documented as of this encounter Visit Diagnoses Not on filedocumented in this encounter Care Teams Charter Bus Driver Relationship Specialty Start Date End Date Elsewhere, Pcp PCP - General Family Medicine 10/25/18 documented as of this encounter
--- OUTSIDE RECORDS SUMMARY | 2022-08-27 11:26 | XMS_ITS | Encounter Summary ---
:1945 Author Organization [facility] Address [address] [place] [address] Care Team Providers Name Role Phone Elsewhere, Pcp Primary Care Provider Unavailable Reason for Visit Reason Comments Phone Contact Encounter Details Date Type Department Care Team Description 02/13/2020 Clinical Communication Division of Dionicio Muniz , Phone Contact Hematology in Dante Garcia M.D. [place], [address] [place], [place] [address] [facility] [place] [address] [place], [place] [phone] (Wo rk) [phone] Social History Tobacco Use Types Packs/Day Years [...] this encounter Miscellaneous Notes Telephone Encounter - Laly Zuniga R.N. 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 B-cell lymphoma has been monitored since 2016. Patient is currently scheduled to return with PET scan on 02/25/20. Patient called this morning with the following concerns: - With his initial urination this morning, he noted a small blood clot preceded his urine flow; - Subsequent urination has also been slightly pink; - He denies any pain with urination or in his abdomen. 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 He states that he may tug and pull on things on occasion that perhaps a younger person should be doing. He does take clopidogrel / Plavix 75 mg 81 mg apsirin daily. Patient was encouraged to contact his local primary care provider for evaluation. He was also encouraged to report back tomorrow by phone. Patient verbalized understanding and agreement. Telephone Encounter - Johanna Edwards - 02/13/2020 8:14 AM CDT Caller is: Levi Khanna Primary Tire And Tube Repairer: Dr. Greenberg Reason for call (be specific): Patient calling today he found blood in his urine this am about 6:30am. It was colored ting red with little clots. Can you please call him and speak with him on this. Advice/Action: Can you please contact patient and give him advice on this. Best phone number to call back [phone] Additional instructions: Thank you, Johanna If replying please route to P RST HEM SCHEDULING documented in this encounter Plan of Treatment Upcoming Encounters Date Type Specialty Care Team Description 10/11/2022 Appointment Laboratory Medicine Natasha Mullins APRN, C.N.P., M.S.N. [address] [place] [address] [phone] (Wo rk) 10/11/2022 Ancillary Procedure Cardiovascular Disease Natasha Cramer APRN, C.N.P., M.S.N. [address] [place] [phone] (Wo rk) 10/11/2022 Appointment Cardiovascular Disease Natasha Mullins APRN, C.NRenetta, M.S.N. [address] [place] [address] [phone] (Wo rk) 10/12/2022 Office Visit Cardiovascular Disease Natasha Mullins APRN, Radha.NLibrado., M.S.N. [address] [place] [phone] (Wo rk) documented as of this encounter Visit Diagnoses Not on filedocumented in this encounter Care Teams Sloop Captain Relationship Specialty Start Date End Date Elsewhere, Pcp PCP - General Family Medicine 10/25/18 documented as of this encounter
--- OUTSIDE RECORDS SUMMARY | 2022-08-27 11:26 | XMS_ITS | Encounter Summary ---
:1945 Author Organization [facility] Address [address] [place] [address] Care Team Providers Name Role Phone Elsewhere, Pcp Primary Care Provider Unavailable Reason for Visit Appointment Request (Routine) - Closed Specialty Diagnoses / Procedures Referred By Contact Refer red To Contact Preventive Medicine Referral ID Status Reason Start Date Expiration Date Visits Requ ested Visits Authorized [id number] Closed 09/05/2019 09/04/2020 1 Encounter Details Date Type Department Care Team Description 09/05/2019 Immunization Section of Preventive, Need Vaccine Transportation and Immunizat ion Influenza Occupational Medicine in [place], [place] [address] [place] [phone] Social History Tobacco Use Types Packs/Day [...] More than 4 times per year 10/15/2019 sabianism services? Do you belong to any clubs [...] Natasha Mullins APRN, C.N.P., M.S.N. [address] [place] [address] (Wo rk) 10/11/2022 Ancillary Procedure Cardiovascular Disease Natasha Cramer APRN, C.N.Franklin., M.S.N. [address] [place] [address] [phone] (Wo rk) 10/11/2022 Appointment Cardiovascular Disease Natasha Mullins APRN, C.N.Jalen, M.S.N. [address] [place] [address] [phone] (Wo rk) 10/12/2022 Office Visit Cardiovascular Disease Natasha Mullins APRN, C.N.Franklin., M.S.N. [address] [place] [address] [phone] (Wo rk) documented as of this encounter Visit Diagnoses Diagnosis Need Vaccine Immunization Influenza documented in this encounter Care Teams Commercial Energy Rater Relationship Specialty Start Date End Date Elsewhere, Pcp PCP - General Family Medicine 10/25/18 documented as of this encounter
--- OUTSIDE RECORDS SUMMARY | 2022-08-27 11:26 | XMS_ITS | Encounter Summary ---
:1945 Author Organization [facility] Address [address] [place] [address] Care Team Providers Name Role Phone Elsewhere, Pcp Primary Care Provider Unavailable Reason for Referral Outpatient (Routine) - Closed Specialty Diagnoses / Procedures Referred By Contact Refer red To Contact Diagnoses Lymphoma Nodular Multiple Site (HCC) Edison Alvarez M.B.B.S. [facility] Procedures PET CT Skull to Thigh FDG Referral ID Status Reason Start Date Expiration Date Visits Requ ested Visits Authorized [id number] Closed 04/28/2020 04/28/2021 6 6 utpatient (Routine) - Closed Specialty Diagnoses / Procedures Referred By Contact Refer red To Contact Hematology Oncology Edison Alvarez M.B.BCarmineSCarmine [facility] Referral ID Status Reason Start Date Expiration Date Visits Requ ested Visits Authorized [id number] Closed 04/28/2020 04/28/2021 1 1 Reason for Visit Outpatient (Routine) - Closed Specialty Diagnoses / Procedures Referred By Contact Refer red To Contact Hematology Oncology Lauren Brown M.D. [address] [place] [address] Referral ID Status Reason Start Date Expiration Date Visits Requ ested Visits Authorized [id number] Closed 09/06/2019 09/05/2020 1 1 Encounter Details Date Type Department Care Team Description 04/28/2020 Office Visit Division of Dionicio Muniz, Lymphoma Nodular Multiple Site (HCC) (Primary Dx); Hematology in Dante Garcia M.D. Malignant Neoplasm Of Thyroid (HCC); [place] [address] [address] [facility] Atherosclerotic Heart Disease Of Inupiat Coronary Artery Without Angina Pectoris; [place], [place] Lesion Skin Polypoid [address] [facility] [address] [place], [place] [phone] (Wo rk) [phone] Social History Tobacco Use Types Packs/Day Years [...] or relatives? How often do you attend hindu or More than 4 times per year 10/15/2019 yazidi services? Do you belong to any clubs or Yes 10/15/2019 organizations such as hindu groups, unions, fraternal or athletic groups, or [...] minutes do you engage in exercise at is 20 min 10/15/2019 level? Stress Answer [...] Sign Reading Time Taken Comments Blood Pressure 91/59 04/28/2020 2:47 PM CDT Pulse 82 04/28/2020 2:47 PM CDT Temperature 36.7 ??C (98.1 ??F) 04/28/2020 2:47 PM CDT Respiratory Rate - - Oxygen Saturation - - Inhaled Oxygen Concentration - - Weight 75.8 kg (167 lb 1.7 oz) 04/28/2020 2:47 PM CDT Height 176 cm (5' 9.29) 04/28/2020 2:47 PM CDT Body Mass Index 24.47 04/28/2020 2:47 PM CDT documented in this encounter Progress Notes Edison Alvarez M.B.B.S. - 04/28/2020 2:30 PM CDT SUBJECTIVE CHIEF COMPLAINT / REASON FOR VISIT Primary account relationship manager: Dr. Greenberg Low grade lymphoma HISTORY OF PRESENT ILLNESS Patient is a 73 y.o. man with previous medical history significant for coronary artery disease, metastatic papillary thyroid carcinoma, and lymphoma whose hematological history may be summarized as follows: ?? 1. Circa 2013: Diagnosed with papillary thyroid carcinoma with ijeoma metastasis. Underwent total thyroidectomy and lymphadenectomy followed by radioactive iodine treatment. ?? 2. Circa 2014: Diagnosed with recurrent papillary thyroid carcinoma requiring repeat surgery and 2nddosage of radioactive iodine. ?? 3. December 12, 2015: Fine-needle aspiration of left cervical lymph node shows involvement by B-cell lymphoma. Flow cytometry studies showed involvement by a CD5 negative kappa light chain restricted B-cell population which was positive for CD19, CD20, and CD22. Bone marrow biopsy done shortly after showing involvement by lymphoma. ?? 4. 2015 to present: Observed without need for lymphoma treatment. 5. April 18, 2019: the patient underwent modified dissection neck (Left), and histopathology reported 2 of 23 neck lymph nodes are positive for metastatic papillary carcinoma, with some of these LNs are positive for low grade lymphoma. ?? INTERVAL HISTORY Patient arrives at the lymphoma Clinic for evaluation. He is referred to me by Dr. Wu from Endocrinology who he has seen for the management of recurrent papillary thyroid carcinoma. He reports no symptoms attributable to his lymphoma including constitutional symptoms such as fevers, chills, drenching night sweats, unintentional weight loss INTERVAL HISTORY: Levi Khanna is a 74 y.o. 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 The patient is doing well from lymphoma standpoint. He denies constitutional symptoms. Since the prior visit in March 2020, the patient underwent lymph node dissection, and the histopathology findings reports papillary thyroid carcinoma and low-grade lymphoma components. The following portions of the patient's history were reviewed and updated as appropriate: allergies,current medications, family history, medical history, social history, surgical history and problem list. REVIEW OF SYSTEMS Constitutional: Negative for fatigue, fever and night sweats. Skin: Negative for skin rash. Gastrointestinal: Negative for abdominal (belly) pain or cramping. Hematologic: Negative for abnormal lumps or bumps. The following systems were negative: CV OBJECTIVE BP 91/59 Pulse 82 Temp 36.7 ??C Ht 176 cm Wt 75.8 kg BMI 24.47 kg/m?? Wt Readings from Last 3 Encounters: 04/28/20 75.8 kg 10/15/19 73.6 kg 09/05/19 76.2 kg PHYSICAL EXAM General: Well-nourished, in good hygiene, in no apparent distress. Lungs: Symmetrical movements, clear to auscultation in all barboza. No cough, wheezing, crackles or shortness of breath noted. Heart: Regular rate/rhythm, S1 S2, no gallop, rub, or murmur. No edema noted. Abdomen: Soft. Normal appearance and bowel sounds are normal. There is no hepatosplenomegaly. There is no tenderness. Lymphadenopathy: No cervical, supraclavicular, axillary, or inguinal lymphadenopathy palpable. Skin: No rash noted. No skin lesion noted in left temporoparietal area corresponding to the FDG avidlesion on the PET-CT scan. Extremities: Warm and well perfused. Psychiatric: Normal mood and affect. Behavior is normal. Judgment and thought content normal ECOG performance status 0 DIAGNOSTICS ASSESSMENT / PLAN #1 Lymphoma Nodular Multiple Site (HCC) Mr. 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 He is clinically doing well. The laboratory findings are not significant. The PET-CT scan showed none as specific FDG avid lesion on the left temporoparietal scalp. I do not find any lesion clinically. We are going to see the patient again in 1 year for clinical, laboratory, and imaging evaluation. I placed the order for PET-CT scan. We informed the patient that he needs to contact us in case of fever, night sweats, unexplained weight loss, or loss of appetite. #2 Malignant Neoplasm Of Thyroid (HCC) Patient is being followed by Dr. Wu. #3 Atherosclerotic Heart Disease Of Inupiat Coronary Artery Without Angina Pectoris To continue follow-up with the Cardiology. #4 Left temporoparietal FDG avid lesion on the PET scan There is no palpable is skin lesion on clinical examination. He denies trauma or injury to the area.We are going to review on the follow-up visit, and the patient will let us know in case of noticeable lesion of the scalp. Clinical findings and plan discussed with Dr. Greenberg who also saw the patient. I personally spent over half of a total minutes face to face with the patient in counseling and discussion and/or coordination of care as described above. Associated attestation - Dante Brown M.D. - 04/28/2020 4:55 PM CDT This is a supervisory note. I saw and evaluated the patient, participating in the treadwell portions of the visit including the physical examination, history, and review of testing results. I reviewed the note of Dr. Alvarez and agree with the findings and plan. In addition I would like to add pertinent historyof indolent lymphoma incidentally diagnosed during workup for papillary thyroid carcinoma, currentlyon observation without lymphoma treatment, pertinent physical exam finding includes normal lymph node exam, and plan of continuing to monitor with annual visits. No physical exam correlates for found for the left temporoparietal FDG avid lesion seen on the PET-CT. I will ask my colleagues from endocrinology and primary care who are seeing the patient more often than me to keep an eye on this area andpursue additional workup if changes arise. documented in this encounter Plan of Treatment Upcoming Encounters Date Type Specialty Care Team Description 10/11/2022 Appointment Laboratory Medicine Natasha Mullins APRN, C.NRenetta, M.S.N. [address] [place] [address] [phone] (Joanie velázquez) 10/11/2022 Ancillary Procedure Cardiovascular Disease Natasha Cramer APRN, C.N.P., M.S.N. [address] [place] [phone] (Joanie velázquez) 10/11/2022 Appointment Cardiovascular Disease Natasha Mullins APRN, C.N.P., M.S.N. [address] [place] [address] [phone] (Joanie velázquez) 10/12/2022 Office Visit Cardiovascular Disease Natasha Mullins APRN, C.N.P., M.S.N. [address] [place] [address] [phone] (Joanie velázquez) Scheduled Referrals Name Type Priority Associated Order Schedule Diagnoses Hematology office Outpatient Referral Routine Exp ected: visit (clinic) 04/28/2021 (Approximate), Expires: 04/28/2023 documented as of this encounter Results Potassium (03/17/2021 2:36 PM CDT) [facility] Potassium, S 4.4 3.6 - 5.2 03/17/2021 DTL mmol/L 3:26 PM CDT Specimen Anatomical Collection Method Collection Time Receive d Time (Source) Location / / Volume Laterality Blood (Blood, 03/17/2021 2:36 PM 03/17/20 2:44 Venous) CDT PM CDT Edison DouglassS. LAB BLOOD ADD-ON Performing Organization Address City/[facility] Phon e Number [facility] - [address] LD (Lactate Dehydrogenase) (03/17/2021 2:36 PM CDT) [facility] Meme LD 184 122 - 222 03/17/2021 DTL U/L 3:50 PM CDT Specimen Anatomical Collection Method Collection Time Receive d Time (Source) Location / / Volume Laterality Blood (Blood, 03/17/2021 2:36 PM 03/17/20 21 3:10 Venous) CDT PM CDT Edison DouglassS. LAB BLOOD NON ADD-ON Performing Organization Address City/[facility] Phon e Number [facility] - 200 [place], [place] [address] [place] [address] Creatinine with Estimated GFR (03/17/2021 2:36 PM CDT) [facility] Creatinine 0.92 0.74 - 03/17/2021 DTL 1.35 mg/dL 3:26 PM CDT eGFR-Non 80 >=60 03/17/2021 DTL Black/ mL/min/BSA 3:26 PM CDT Algerian Comment: ----ADDITIONAL INFORMATION---- Estimated GFR calculated using the 2009 CKD_EPI creatinine equation. eGFR-Black/ >90 >=60 mL/min/BSA 2020 3:26 PM CDT DTL Comment: ----ADDITIONAL INFORMATION---- Estimated GFR calculated using the 2009 CKD_EPI creatinine equation. Specimen Anatomical Collection Method Collection Time Receive d Time (Source) Location / / Volume Laterality Blood (Blood, 03/17/2021 2:36 PM 03/17/20 21 2:44 Venous) CDT PM CDT Edison Medina LAB BLOOD ADD-ON Performing Organization Address City/State/ZIP Code Phon e Number [facility] - [address] [place] [phone] [facility] [address] Laboratories-[facility] 200 [facility] CBC with Differential, Blood (03/17/2021 2:36 PM CDT) P athologist Signature Hemoglobin 13.2 13.2 - 03/17/2021 DTL 16.6 g/dL 2:55 PM CDT Hematocrit 39.8 38.3 - 03/17/2021 DTL 48.6 % 2:55 PM CDT Erythrocytes 4.41 4.35 - 03/17/2021 DTL 5.65 2:55 PM CDT x10(12)/L MCV 90.2 78.2 - 03/17/2021 DTL 97.9 fL 2:55 PM CDT RBC Distrib Width 13.2 11.8 - 03/17/2021 DTL 14.5 % 2:55 PM CDT Platelet Count 194 135 - 317 03/17/2021 DTL x10(9)/L 2:55 PM CDT Leukocytes 5.9 3.4 - 9.6 03/17/2021 DTL x10(9)/L 2:55 PM CDT Neutrophils 3.29 1.56 - 03/17/2021 DTL 6.45 2:55 PM CDT x10(9)/L Lymphocytes 1.41 0.95 - 03/17/2021 DTL 3.07 2:55 PM CDT x10(9)/L Monocytes 0.65 0.26 - 03/17/2021 DTL 0.81 2:55 PM CDT x10(9)/L Eosinophils 0.47 0.03 - 03/17/2021 DTL 0.48 2:55 PM CDT x10(9)/L Basophils 0.03 0.01 - 03/17/2021 DTL 0.08 2:55 PM CDT x10(9)/L Specimen Anatomical Collection Method Collection Time Receive d Time (Source) Location / / Volume Laterality Blood (Blood, 03/17/2021 2:36 PM 03/17/20 2:44 Venous) CDT PM CDT Edison DouglassSCarmine LAB BLOOD ADD-ON Performing Organization Address City/[facility] Phon e Number [address] [place] [address] Calcium, Total (03/17/2021 2:36 PM CDT) P athologist Signature Calcium, Total, 8.8 8.8 - 10.2 03/17/2021 DTL S mg/dL 3:26 PM CDT Specimen Anatomical Collection Method Collection Time Receive d Time (Source) Location / / Volume Laterality Blood (Blood, 03/17/2021 2:36 PM 03/17/20 2:44 Venous) CDT PM CDT Edison DouglassSCarmine LAB BLOOD ADD-ON Performing Organization Address City/State/[facility] Code Phon e Number [address] [place] [address] Bilirubin, Total (03/17/2021 2:36 PM CDT) P athologist Signature Bilirubin, 0.3 <=1.2 mg/dL 03/17/2021 DTL Total, S 3:26 PM CDT Specimen Anatomical Collection Method Collection Time Receive d Time (Source) Location / / Volume Laterality Blood (Blood, 03/17/2021 2:36 PM 03/17/20 2:44 Venous) CDT PM CDT Edison DouglassSCarmine LAB BLOOD ADD-ON Performing Organization Address [facility] Phon e Number [facility] - 200 [place], [place] [address] [place] [address] AST (Aspartate Aminotransferase) (03/17/2021 2:36 PM CDT) Patholo gist Method Time Signature Aspartate 20 8 - 48 03/17/2021 DTL Aminotransferase U/L 3:26 PM CDT (AST), S Specimen Anatomical Collection Method Collection Time Receive d Time (Source) Location / / Volume Laterality Blood (Blood, 03/17/2021 2:36 PM 03/17/20 21 2:44 Venous) CDT PM CDT Edison DouglassSCarmine LAB BLOOD ADD-ON Performing Organization Address [facility] Phon e Number [facility] - 200 [place], [place] [address] [place] [address] Alkaline Phosphatase (03/17/2021 2:36 PM CDT) P athologist Signature Alkaline 113 40 - 129 03/17/2021 DTL Phosphatase, S U/L 3:26 PM CDT Specimen Anatomical Collection Method Collection Time Receive d Time (Source) Location / / Volume Laterality Blood (Blood, 03/17/2021 2:36 PM 03/17/20 21 2:44 Venous) CDT PM CDT Edison DouglassSCarmine LAB BLOOD ADD-ON Performing Organization Address City/[facility] Phon e Number [facility] - 200 [place], [place] [address] Skull to Thigh FDG (03/17/2021 [...] RADIOPHARMACEUTICAL/MEDS: Route: intravenous fludeoxyglucose F 18 injection PENITENTIARY (FDG F-18),9.95 millicurie TECHNIQUE: ??F-18 FDG PET/CT [...] RADIOPHARMACEUTICAL/MEDS: Route: intravenous fludeoxyglucose F 18 injection PENITENTIARY (FDG F-18),9.95 millicurie TECHNIQUE: F-18 FDG PET/CT [...] focal prostate cancer would appear similar. Edison LoweBaCrmineS. IMG NM PROCEDURES documented in this encounter Visit Diagnoses Diagnosis Lymphoma Nodular Multiple Site (HCC) - P rimary Malignant Neoplasm Of Thyroid (HCC) Atherosclerotic Heart Disease Of Inupiat Coronary Artery Without Angina Pectoris Lesion Skin Polypoid Lymphoma Nodular Multiple Site (HCC) documented in this encounter Care Teams Evp And Chief Operating Officer Relationship Specialty Start Date End Date Elsewhere, Pcp PCP - General Family Medicine 10/25/18 documented as of this encounter
--- OUTSIDE RECORDS SUMMARY | 2022-08-27 11:26 | XMS_ITS | Encounter Summary ---
:1945 Author Organization [facility] Address [address] [place] [address] Care Team Providers Name Role Phone Elsewhere, Pcp Primary Care Provider Unavailable Encounter Details Date Type Department Care Team Description 10/15/2019 [facility] Ischemic; Encounter Cardiovascular Natasha Fagan, Jaqui Sy stolic (Congestive) Heart Failure (HCC) Diseases in [facility], C.N.P.[place], [place] M.S.N. [address] [facility] [address] [place] [id number] [phone] Social History Tobacco Use Types Packs/Day Years [...] or relatives? How often do you attend hinduism or More than 4 times per year 10/15/2019 christian services? Do you belong to any clubs or Yes 10/15/2019 organizations such as hinduism groups, unions, fraternal or athletic groups, or [...] Medicine Natasha Mullins APRN, C.N.P., M.S.N. [address] [place] [address] [phone] (Joanie velázquez) 10/11/2022 Ancillary Procedure Cardiovascular Disease Natasha Cramer APRN, C.N.P., M.S.N. [address] [place] [address] [phone] (Joanie velázquez) 10/11/2022 Appointment Cardiovascular Disease Natasha Mullins APRN, C.N.P., M.S.N. [address] [place] [address] [phone] (Joanie velázquez) 10/12/2022 Office Visit Cardiovascular Disease Natasha Mullins APRN, C.N.P., M.S.N. [address] [place] [phone] (Joanie velázquez) documented as of this encounter Procedures Procedure Name Priority Date/Time Associated Diagnosis Comme nts (TTE) 2D ECHO Routine 10/15/2019 10:40 Cardiomyopathy Ischemic Results for this DOPPLER COLOR AM [employer] OF MARKETING Chronic Systolic procedure are in (Congestive) Heart the resul ts Failure (HCC) section. documented in this encounter Results (TTE) 2D ECHO DOPPLER COLOR (10/15/2019 10:40 AM VP OF MARKETING) [facility] Method Time Signature Ejection Fraction 51 MC CV EIMS Sinus of Valsalva 35 MC CV EIMS Mid-Ascending Aorta 39 MC CV EIMS Wall Motion Score 1.63 MC CV EIMS Index LV Mass Index 76 MC CV EIMS LV End-Diastolic 55 MC CV EIMS Diameter LV End-Systolic 39 MC CV EIMS Diameter MV E Velocity 0.5 MC CV EIMS MV A Velocity 0.9 MC CV EIMS MV E/A 0.56 MC CV EIMS MV e' Velocity 0.05 MC CV EIMS Medial MV e' Velocity 0.06 MC CV EIMS Lateral MV E/e' Medial 10.0 MC CV EIMS MV E/e' Lateral 8.3 MC CV EIMS Left ventricular 51 MC CV EIMS stroke volume index Cardiac Output 5.86 MC CV EIMS Cardiac Index 3.04 MC CV EIMS LV Interventricular 7 MC CV EIMS Septal Wall Thickness LV Posterior Wall 8 MC CV EIMS Thickness LV Relative Wall 29 MC CV EIMS Thickness RV 4-Chamber Basal 51 MC CV EIMS Diameter RV 4-Chamber Mid 35 MC CV EIMS Diameter RV 4-Chamber Length 94 MC CV EIMS TAPSE 22 MC CV EIMS Tricuspid Annular S? 0.10 MC CV EIMS TR Vmax 2.42 MC CV EIMS RA Pressure 5 MC CV EIMS RV Systolic Pressure 28 MC CV EIM S AV mean gradient 9 MC CV EIMS Aortic valve area 2.14 MC CV EIMS Aortic Valve 0.47 MC CV EIMS Dimensionless Index LA Volume Index 44 MC CV EIMS WMSI At Rest 1.63 MC CV EIMS WMSI At Peak Stress 1.63 MC CV EIMS Anatomical Region Laterality Modality Echocardiography Specimen (Source) Anatomical Collection Method Collection Time Re ceived Time Location / / Volume Laterality 10/15/2019 9:05 AM VP OF MARKETING Impressions 10/15/2019 10:51 AM [employer] OF MARKETING LEFT VENTRICLE: ??Borderline left ventricular enlargement. ??Normal left ventricular wall thickness. ??Calculated 3-D volumetric l eft ventricular ejection fraction 51 %. ??Regional wall motion abnormalities were present (see w all motion graphics). ??Grade 1/4 left ventricular diastolic dysfunction, consistent with l ow to normal left ventricular filling pressure. ??RIGHT VENTRICLE: ??Borderline right ventricula r enlargement with normal systolic function. ??Normal right ventricular systolic function. ??E stimated right ventricular systolic pressure 28 mmHg (systolic blood pressure 122 mmHg). ??AT VANE: ??Moderate left atrial enlargement. ??Left atrial volume index 44 ml/m^2. ??Normal right a trial size. ??CARDIAC VALVES: ??Trileaflet aortic valve. Sclerotic aortic valve. ??Mild aortic va lve regurgitation. ??Aortic valve systolic mean Doppler gradient 9 mmHg. ??Mildly thickened mitr al valve. ??Trivial mitral valve regurgitation. ??Normal pulmonary valve. ??Normal pulmonary valv e systolic velocity. ??Trivial pulmonary valve regurgitation. ??Mildly thickened tricus pid valve. ??Mild tricuspid valve regurgitation. ??OTHER ECHO FINDINGS: ??Normal inferior vena ca va size with normal inspiratory collapse (>50%). ??Normal ascending aorta dimension. ??Upper jack l limit for patient's age, sex, and BSA is 42 mm. Abdominal aorta incompletely visualized. ??Normal abdominal aorta Doppler flow pattern. ??No atrial level shunt by color flow imaging . ??No intracardiac mass or thrombus, but the left atrial appendage cannot be visualized ad equately with transthoracic echo to exclude thrombus in this location. ??No pericardial effusion . For the complete report, see the [facility] Documents below. See PDF For Result Narrative 10/15/2019 10:51 AM VP OF MARKETING For the complete report, see the [facility] Documents below. Final Impressions 1. Borderline left ventricular enlargeme nt; calculated ejection fraction 51%. 2. Regional wall motion abnormalities we re present (see wall motion graphics). 3. Grade 1/4 left ventricular diastolic dysfunction, consistent with low to normal left ventricular filling pressure. 4. Mild aortic valve regurgitation. 5. Normal inferior vena cava size with n ormal inspiratory collapse (>50%). 6. No pericardial effusion. 7. Compared to the report of 10/25/2018 no significant change has occurred. Side by side comparison of images performed. Procedure Note Aleks Chun M.D. - 10/15/2019For matting of this note might be different from the original. For the complete report, see the [facility] Documents below. Final Impressions 1. Borderline left ventricular enlargeme nt; calculated ejection fraction 51%. 2. Regional wall motion abnormalities we re present (see wall motion graphics). 3. Grade 1/4 left ventricular diastolic dysfunction, consistent with low to normal left ventricular filling pressure. 4. Mild aortic valve regurgitation. 5. Normal inferior vena cava size with n ormal inspiratory collapse (>50%). 6. No pericardial effusion. 7. Compared to the report of 10/25/2018 no significant change has occurred. Side by side comparison of images performed. Findings LEFT VENTRICLE: Borderline left ventricu lar enlargement. Normal left ventricular wall thickness. Calculated 3-D volumetric lef t ventricular ejection fraction 51 %. Regional wall motion abnormalities were present (see w all motion graphics). Grade 1/4 left ventricular diastolic dysfunction, consistent with l ow to normal left ventricular filling pressure. RIGHT VENTRICLE: Borderline right ventricular enlargement with normal systolic function. Normal right ventricular systolic function. Est imated right ventricular systolic pressure 28 mmHg (systolic blood pressure 122 mmHg). ATRI A: Moderate left atrial enlargement. Left atrial volume index 44 ml/m^2. Normal right atr ial size. CARDIAC VALVES: Trileaflet aortic valve. Sclerotic aortic valve. Mild aortic valv e regurgitation. Aortic valve systolic mean Doppler gradient 9 mmHg. Mildly thickened mitral valve. Trivial mitral valve regurgitation. Normal pulmonary valve. Normal pulmonary valve systolic velocity. Trivial pulmonary valve regurgitation. Mildly thickened tricuspi d valve. Mild tricuspid valve regurgitation. OTHER ECHO FINDINGS: Normal inferior vena cava size with normal inspiratory collapse (>50%). Normal ascending aorta dimension. Upper normal limit for patient's age, sex, and BSA is 42 mm. Abdominal aorta incompletely visualized. Normal abdominal aorta Doppler flow pattern. No atrial level shunt by color flow imaging . No intracardiac mass or thrombus, but the left atrial appendage cannot be visualized ad equately with transthoracic echo to exclude thrombus in this location. No pericardial effusion. For the complete report, see the [facility] Documents below. See PDF For Result Natasha Fagan APRN, C.N.P., M.S.N. CV ECHO HI OCEDURES documented in this encounter Visit Diagnoses Diagnosis Cardiomyopathy Ischemic Chronic Systolic (Congestive) Heart Fail ure (HCC) documented in this encounter Care Teams [employer] Relationship Specialty Start Date End Date Elsewhere, Pcp PCP - General Family Medicine 10/25/18 documented as of this encounter
--- OUTSIDE RECORDS SUMMARY | 2022-08-27 11:26 | XMS_ITS | Encounter Summary ---
:1945 Author Organization [facility] Address [address] [place] [address] Care Team Providers Name Role Phone Elsewhere, Pcp Primary Care Provider Unavailable Encounter Details Date Type Department Care Team Description 10/15/2019 Hospital Encounter Department of Chai Fagan, Card iomyopathy Ischemic; Laboratory VY Kaur, Chronic Systol ic (Congestive) Heart Failure (HCC) Medicine and C.N.P., M.S.N. Pathology, [place] [address] [place] [address], in [facility] [address] [place] [phone] [place] [address] (Work) [place], [place] [phone] (Fax) [phone] Social History Tobacco Use Types Packs/Day Years [...] More than 4 times per year 10/15/2019 rastafarian services? Do you belong to any clubs [...] albuterol (PROVENTIL Inhale 1-2 puffs as 0 05/18/ 2018 HFA,VENTOLIN HFA) 90 needed for wheezing mcg/actuation [...] day as calcium) chewable tablet needed. Heartburn. cholecalciferol (VITAMIN Take 1 tablet by 0 08/2410/15/2020 D3) 1,000 Unit tablet mouth daily. fluticasone (FLONASE) 50 Administer [...] Natasha Mullins APRN, C.N.P., M.S.N. [address] [place] [address] (Wo rk) 10/11/2022 Ancillary Procedure Cardiovascular Disease Natasha Cramer APRN, Radha.N.Jalen, M.S.N. [address] [place] [address] [phone] (Wo rk) 10/11/2022 Appointment Cardiovascular Disease Natasha Mullins APRN, C.N.Jalen, M.S.N. [address] [place] [address] [phone] (Wo rk) 10/12/2022 Office Visit Cardiovascular Disease Natasha Mullins APRN, Radha.N.Jalen, M.S.N. [address] [place] [address] [phone] (Wo rk) documented as of this encounter Procedures Procedure Name Priority Date/Time Associated Diagnosis Comme nts LIPID PANEL, S Routine 10/15/2019 7:39 Cardiomyopathy Results for this AM [facility] [employer] Ischemic procedure are in Chronic Systolic the results (Congestive) Heart section. Failure (HCC) CBC WITHOUT Routine 10/15/2019 7:39 Cardiomyopathy Results fo r this DIFFERENTIAL, B AM [facility] [employer] Ischemic procedure are in Chronic Systolic the results (Congestive) Heart section. Failure (HCC) BUN (BLOOD UREA Routine 10/15/2019 7:39 Cardiomyopathy Results for this NITROGEN), S/P AM [facility] [employer] Ischemic procedure are in Chronic Systolic the results (Congestive) Heart section. Failure (HCC) ASPARTATE Routine 10/15/2019 7:39 Cardiomyopathy Results fo r this AMINOTRANSFERASE (AST), AM [facility] [employer] Ischemic procedure are in S/P Chronic Systolic the results (Congestive) Heart section. Failure (HCC) SODIUM, S/P Routine 10/15/2019 7:39 Cardiomyopathy Results fo r this AM [facility] [employer] Ischemic procedure are in Chronic Systolic the results (Congestive) Heart section. Failure (HCC) POTASSIUM, S/P Routine 10/15/2019 7:39 Cardiomyopathy Results for this AM [facility] [employer] Ischemic procedure are in Chronic Systolic the results (Congestive) Heart section. Failure (HCC) CREATININE WITH EGFR, Routine 10/15/2019 7:39 Cardiomyopathy R esults for this S/P AM [facility] [employer] Ischemic procedure are in Chronic Systolic the results (Congestive) Heart section. Failure (HCC) documented in this encounter Results Lipid Panel (10/15/2019 7:39 AM [facility] [employer]) P athologist Signature Cholesterol, 197 mg/dL 10/15/2019 DTL Total 9:43 AM [facility] [employer] Comment: ----REFERENCE VALUE---- Desirable: < 200 Borderline high: 200 - 239 High: > or = 240 Triglycerides 71 mg/dL 10/15/2019 9:43 AM [facility] [employer]IAL DTL Comment: ----REFERENCE VALUE---- Normal: <150 Borderline high: 150-199 High: 200-499 Very high: > or =500 Cholesterol, HDL, S 75 >=40 mg/dL 10/15/2019 9:43 AM [facility] OFF[employer]IAL DTL Calculated LDL 108 mg/dL 10/15/2019 9:43 AM [facility] [employer]IAL DT L Comment: ----REFERENCE VALUE---- Desirable: <100 Above Desirable: 100-129 Borderline high: 130-159 High: 160-189 Very high: > or =190 Cholesterol, Non-HDL, Calculated 122 mg/dL 019 9:43 AM [facility] OFF[employer]IAL DTL Comment: ----REFERENCE VALUE---- Desirable: <130 Above Desirable: 130-159 Borderline high: 160-189 High: 190-219 Very high: > or =220 Specimen Anatomical Collection Method Collection Time Receive d Time (Source) Location / / Volume Laterality Blood (Blood, 10/15/2019 7:39 AM 10/15/20 19 8:03 Venous) [facility] [employer] AM [facility] [employer] Natasha Fagan APRN C.N.P., M.S.N. LAB BLOOD ADD-ON Performing Organization Address City/State/ZIP Code Phon e Number [facility] - [address] [place], [place] [address] [place] [address] Laboratories-[facility] [address] AST (Aspartate Aminotransferase) (10/15/2019 7:39 AM [facility]IAL) Patholo gist Method Time Signature Aspartate 24 8 - 48 10/15/2019 DTL Aminotransferase U/L 9:43 AM [facility] [employer] (AST), S Specimen Anatomical Collection Method Collection Time Receive d Time (Source) Location / / Volume Laterality Blood (Blood, 10/15/2019 7:39 AM 10/15/20 19 8:03 Venous) [facility] [employer] AM [facility] [employer] Natasha Fagan APRN, C.N.P., M.S.N. LAB BLOOD ADD-ON Performing Organization Address City/[facility] Phon e Number [facility] - [address] [place], [place] [address] [place] [id number] [place] [address] CBC without Differential (10/15/2019 7:39 AM [facility]IAL) athologist Signature Hemoglobin 14.6 13.2 - 10/15/2019 DTL 16.6 g/dL 8:15 AM [facility] Hematocrit 44.1 38.3 - 10/15/2019 DTL 48.6 % 8:15 AM [facility] [employer]IAL Erythrocytes 4.76 4.35 - 10/15/2019 DTL 5.65 8:15 AM [facility] OFF[facility]IAL x10(12)/L MCV 92.6 78.2 - 10/15/2019 DTL 97.9 fL 8:15 AM [facility] [employer]IAL RBC Distrib Width 13.3 11.8 - 10/15/2019 DTL 14.5 % 8:15 AM [facility] [employer]IAL Platelet Count 206 135 - 317 10/15/2019 DTL x10(9)/L 8:15 AM [facility] OFF[facility]IAL Leukocytes 5.2 3.4 - 9.6 10/15/2019 DTL x10(9)/L 8:15 AM [facility] [employer]IAL Specimen Anatomical Collection Method Collection Time Receive d Time (Source) Location / / Volume Laterality Blood (Blood, 10/15/2019 7:39 AM 10/15/20 19 8:03 Venous) [facility] [employer]IAL AM [facility] [employer] Natasha Fagan APRN, C.N.P., M.S.N. LAB BLOOD ADD-ON Performing Organization Address City/[facility] Code Phon e Number [facility] - [address] [place], [place] [address] [place] [address] Sodium (10/15/2019 7:39 AM [facility]) athologist Signature Sodium, S 135 135 - 145 10/15/2019 9:43 DTL mmol/L AM [facility] [employer] Specimen Anatomical Collection Method Collection Time Receive d Time (Source) Location / / Volume Laterality Blood (Blood, 10/15/2019 7:39 AM 10/15/20 19 8:03 Venous) [facility] [employer] AM [facility] [employer] Natasha Fagan APRN, C.N.P., M.S.N. LAB BLOOD ADD-ON Performing Organization Address City/State/[facility] Phon e Number [facility] - [address] [place], [place] [address] [place] [address] Laboratories-[facility] [address] [facility] Potassium (10/15/2019 7:39 AM [facility]IAL) P athologist Signature Potassium, S 4.7 3.6 - 5.2 10/15/2019 DTL mmol/L 9:43 AM [facility] [employer] Specimen Anatomical Collection Method Collection Time Receive d Time (Source) Location / / Volume Laterality Blood (Blood, 10/15/2019 7:39 AM 10/15/20 19 8:03 Venous) [facility] [employer]IAL AM [facility] [employer] Natasha Fagan APRN, C.N.P., M.S.N. LAB BLOOD ADD-ON Performing Organization Address City/State/[facility] Phon e Number [facility] - [address] [place], [place] [address] [place] [address] Laboratories-[facility] 200 [facility] Creatinine with Estimated GFR (10/15/2019 7:39 AM [facility] OFF[facility]IAL) athologist Signature Creatinine 0.90 0.74 - 10/15/2019 DTL 1.35 mg/dL 9:43 AM [facility] OFF[facility]IAL eGFR-Non 83 >=60 10/15/2019 DTL Black/ mL/min/BSA 9:43 AM [facility] OFFICIAL [place] Comment: ----ADDITIONAL INFORMATION---- Estimated GFR calculated using the 2009 CKD_EPI creatinine equation. eGFR-Black/ >90 >=60 mL/min/BSA 2018 9:43 AM [facility] OFF[facility]IAL DTL Comment: ----ADDITIONAL INFORMATION---- Estimated GFR calculated using the 2009 CKD_EPI creatinine equation. Specimen Anatomical Collection Method Collection Time Receive d Time (Source) Location / / Volume Laterality Blood (Blood, 10/15/2019 7:39 AM 10/15/20 19 8:03 Venous) [facility] [employer]IAL AM [facility] [employer] Natasha Fagan APRN, C.N.P., M.S.N. LAB BLOOD ADD-ON Performing Organization Address City/State/ZIP Code Phon e Number [facility] - [address] [address] Laboratories-[address] BUN (Blood Urea Nitrogen) (10/15/2019 7:39 AM [facility] OFFICIAL) P athologist Signature BUN (Blood Urea 20 8 - 24 10/15/2019 DTL Nitrogen), S mg/dL 9:43 AM [facility] OFF[facility]IAL Specimen Anatomical Collection Method Collection Time Receive d Time (Source) Location / / Volume Laterality Blood (Blood, 10/15/2019 7:39 AM 10/15/20 19 8:03 Venous) [facility] [employer]IAL AM [facility] [employer] Natasha Fagan APRN, C.N.P., M.S.N. 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
--- OUTSIDE RECORDS SUMMARY | 2022-08-27 11:26 | XMS_ITS | Encounter Summary ---
:1945 Author Organization [facility] Address [address] [place] [address] Care Team Providers Name Role Phone Elsewhere, Pcp Primary Care Provider Unavailable Reason for Referral Outpatient (Routine) - Closed Specialty Diagnoses / Procedures Referred By Contact Refer red To Contact Cardiovascular Disease Lauren Mullins [facility] VY Kaur C.N.P., M.S.N. [address] [place] [phone] Referral ID Status Reason Start Date Expiration Date Visits Requ ested Visits Authorized [id number] Closed 10/15/2019 10/14/2020 1 1 utpatient (Routine) - Closed Specialty Diagnoses / Procedures Referred By Contact Refer red To Contact Diagnoses Chronic Systolic (Congestive) Heart Failure (HCC) Cardiomyopathy Ischemic Natasha Mullins [facility] Procedures Echo Transthoracic (TTE) Justin MCCLLELAN, M.S.N. [address] [place] [phone] Referral ID Status Reason Start Date Expiration Date Visits Requ ested Visits Authorized [id number] Closed 10/15/2019 10/14/2020 1 1 utpatient (Routine) - Closed Specialty Diagnoses / Procedures Referred By Contact Refer red To Contact Diagnoses Chronic Systolic (Congestive) Heart Failure (HCC) [facility]opathy [facility] 12 Lead Justin MCCLELLAN, M.S.N. [address] [place] [phone] Referral ID Status Reason Start Date Expiration Date Visits Requ ested Visits Authorized [id number] Closed 10/15/2019 10/14/2020 1 1 S LEADER Reason for Visit Outpatient (Routine) - Closed Specialty Diagnoses / Procedures Referred By Contact Refer red To Contact Cardiovascular Disease Chai Fagan [facility] [facility] VY Kaur C.N.P., M.S.N. [address] [place] [phone] Referral ID Status Reason Start Date Expiration Date Visits Requ ested Visits Authorized [id number] Closed 10/25/2018 10/25/2019 1 1 Encounter Details Date Type Department Care Team Description 10/15/2019 Office Visit Department of Chai Fagan, Chronic Sy stolic (Congestive) Heart Failure (HCC) (Primary Dx); Cardiovascular VY Kaur, Cardiomyopat hy Ischemic; Medicine in [place], Justin, M .S.N. Hyperlipidemia; [place] [address] [facility] Atherosclerotic Heart Disease Of [place] Coronary Artery Without Angina Pectoris [address] [place] [phone] Social History Tobacco Use Types Packs/Day Years [...] 10/15/2019 organizations such as buddhist groups, unions, [employer] or athletic groups, or school groups? How [...] Sign Reading Time Taken Comments Blood Pressure 103/72 10/15/2019 12:46 PM SALES LEADER Pulse 89 10/15/2019 12:46 PM SALES LEADER Temperature 36.9 ??C (98.4 ??F) 10/15/2019 12:43 PM SALES LEADER Respiratory Rate - - Oxygen Saturation - - Inhaled Oxygen Concentration - - Weight 73.6 kg (162 lb 4.1 oz) 10/15/2019 12:43 PM SALES LEADER Height 176 cm (5' 9.29) 10/15/2019 12:43 PM SALES LEADER Body Mass Index 23.76 10/15/2019 12:43 PM SALES LEADER documented in this encounter Progress Notes Natasha Mullins APRN, C.N.P., M.S.N. - 10/15/2019 1:00 PM CST Heart failure Established Note Referring Provider: Natasha Mullins APRN, C.N.P., M.S.N. 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 ??Ejection fraction was 30% to 35% December of 2015 by stress echocardiogram; negative for ischemia. Ejection fraction increased to 50% October 2018. I last met with the patient on March 22, 2019. 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 Patient completed modified dissection of the left neck April. The patient presents alone. He continues to do quite well. The only time he notices dyspnea is if hehad been sitting for a long time and then climb stairs. If he has been physically active and then climbs stairs there is no dyspnea. He denies chest discomfort, palpitations, dizziness, lightheadedness, syncopal episodes, falls, paroxysmal nocturnal dyspnea, orthopnea, or edema. REVIEW OF SYSTEMS The following [...] October 2018. E. EF 51% October 2019. 3. ??Hyperlipidemia. 4. ??Asthma. 5. Thyroid cancer; Status post parathyroid resection, subsequent iatrogenic hypothyroidism. A. Status post modified dissection left neck April 17, 2019. 6. ??History of rotator cuff tear with chronic right shoulder discomfort. ?? OBJECTIVE Vitals: 10/15/19 1243 10/15/19 1245 10/15/19 1246 BP: 108/74 107/76 103/72 BP Location: Right arm Left arm Left arm Patient Position: Sitting Sitting Standing Cuff Size: Regular Regular Regular Pulse: 80 78 89 Temp: 36.9 ??C TempSrc: Tympanic Weight: 73.6 kg Height: 176 cm Wt 73.6 kg Ht 176 cm Body mass index is 23.76 kg/m??. Body surface area is 1.9 meters squared. ALLERGIES Allergies Allergen Reactions ??? [...] times a day as needed. Heartburn. ??? carvedilol (COREG) 25 mg tablet, Take 1 tablet (25 mg total) by mouth 2 (two) times a day. ??? cetirizine (ZyrTEC) 10 mg tablet, Take 10 mg by mouth daily. ??? cholecalciferol (VITAMIN D3) 1,000 Unit tablet, Take 1 tablet by mouth daily. ??? clopidogrel (PLAVIX) 75 mg tablet, Take 1 tablet (75 mg total) by mouth daily. ??? fluticasone (FLONASE) 50 mcg/actuation nasal spray, Administer 1 spray into affected nostril(s) as needed. ??? fluticasone-salmeterol (ADVAIR DISKUS) 250-50 mcg/dose diskus inhaler, Inhale 1 puff daily. ??? levothyroxine (SYNTHROID, LEVOTHROID) 200 mcg tablet, Take 1 tablet (200 mcg total) by mouth daily. ??? lisinopril (PRINIVIL,ZESTRIL) 40 mg tablet, Take 1 tablet (40 mg total) by mouth daily. ??? montelukast (SINGULAIR) 10 mg tablet, Take 1 tablet by mouth at bedtime. ??? nitroglycerin (NITROSTAT) 0.4 mg SL tablet, Place 1 tablet (0.4 mg total) under the tongue as needed for chest pain. May repeat every 5 x 2. If no relief with 3rd tab call 911. ??? rosuvastatin (Crestor) 40 mg tablet, Take 1 tablet (40 mg total) by mouth daily. ??? zinc gluconate 50 mg tablet, Take 80 mg by mouth daily with breakfast. PHYSICAL EXAMINATION General: Pleasant gentleman in no apparent acute distress Vessels: Neck veins are not elevated at a 30 degree angle. No carotid bruits. Lungs: Clear without rales, rhonchi, or wheeze. Heart:: Regular rate and rhythm with normal S1 and S2. No S3, S4, thrill, murmur, or heave appreciated. Abdomen: Soft, nontender, without palpable hepatomegaly. No bruits are appreciated. Extremities: No lower extremity edema or clubbing. Radial, dorsalis pedis, posterior tibial pulses are all 4/4. Skin: Warm, dry, without diaphoresis or cyanosis. Musculoskeletal: Able to get on off the exam table without assistance. Neuro: Alert and able to give an adequate history. ASSESSMENT / PLAN #1 Cardiomyopathy Ischemic Patient is [place] Heart Association functional class 1 to 2, stage C heart failure. I was pleased advised him that his LV ejection fraction is stable at 51%. I recommended continue with the lisinopril, and carvedilol indefinitely. #2 Chronic Systolic (Congestive) Heart Failure (HCC) Euvolemic. Requires no diuretic. #3 Hyperlipidemia Total cholesterol 197, HDL 75, LDL one weight, triglycerides 71. Patient is already on rosuvastatin 40 mg per day. He is back to drinking about 1-2 cups of whole milk daily. I recommend he consider changing to 2% milk and increase his aerobic activity. We have never been able to get his LDL to 70 or below but I should note he has an excellent HDL at 75. One could consider adding Zetia to decrease hischolesterol deposition. He is asked to think about it. Offers that the paternal side of his family despite significant coronary disease have all lived into their 80s. # 4. Coronary artery disease Asymptomatic. Continue aspirin and Plavix. Nitroglycerin was refilled. Follow-up one year. Natasha Fagan APRN, Radha.N.Franklin., M.S.N. 10/15/19 S LEADER documented in this encounter Plan of Treatment Upcoming Encounters Date Type Specialty Care Team Description 10/11/2022 Appointment Laboratory Medicine Natasha Mullins APRN, Radha.N.P., M.S.N. [address] [place] [phone] (Wo rk) 10/11/2022 Ancillary Procedure Cardiovascular Disease Natasha Cramer APRN, C.N.PCarmine, M.S.N. [address] [place] [phone] (Wo rk) 10/11/2022 Appointment Cardiovascular Disease Natasha Mullins APRN, Radha.N.P., M.S.N. [address] [place] [phone] (Wo rk) 10/12/2022 Office Visit Cardiovascular Disease Natasha Mullins APRN, Radha.N.P., M.S.N. [address] [place] [phone] (Joanie rk) Scheduled Referrals Name Type Priority Associated Order Schedule Diagnoses Cardiovascular Disease Outpatient Referral Routine Expected: office visit (clinic) 2019 (Approximate), Expires: 10/15/2021 documented as of this encounter Results ECG 12 Lead (10/15/2020 11:32 AM SALES LEADER) P athologist Signature Ventricular Rate 65 BPM MUSE ECG/Min PA Interval 192 ms MUSE QRSD Interval 154 ms MUSE QT Interval 426 ms MUSE QTC Interval 443 ms MUSE P [place] 63 degrees MUSE R [place] -30 degrees MUSE T Wave [place] 60 degrees MUSE Specimen Anatomical Collection Method Collection Time Receive d Time (Source) Location / / Volume Laterality 10/15/2020 11:32 10/15/2020 AM SALES LEADER 11:36 AM SALES LEADER Impressions MUSE - 10/15/2020 11:36 AM SALES LEADER Normal sinus rhythm Left axis deviation Right bundle branch block with secondary ST-T abnormalities Anteroseptal infarct When compared with ECG of 15-OCT-2019 11 :46, No significant change was found Reviewed by WALESKA Huerta Narrative This result has an attachment that is no t available. Procedure Note Karl Guzman Jr., M.D. - 10/15/2020For matting of this note might be different from the original. IMPRESSION: Normal sinus rhythm Left axis deviation Right bundle branch block with secondary ST-T abnormalities Anteroseptal infarct When compared with ECG of 15-OCT-2019 11 :46, No significant change was found Reviewed by WALESKA Huerta Natasha Paula Rylan MCCLELLAN C.N.P., M.S.N. ECG ORDERA BLES Performing Organization Address City/State/ZIP Code Phon e Number MUSE MUSE NA (TTE) 2D ECHO DOPPLER COLOR (10/15/2020 9:58 AM SALES LEADER) Analysis Performed At Patho logist Time Signature [...] / / Volume Laterality 10/15/2020 8:39 AM SALES LEADER Impressions 10/15/2020 10:47 AM SALES LEADER Last full echocardiogram performed 10/15/2019. ??Echocardiogram performed [...] effusion. For the complete report, see the [employer] Documents. Narrative 10/15/2020 10:47 AM SALES LEADER For the complete report, see the [employer] Documents. Final Impressions 1. Borderline enlarged left [...] Natasha Fagan APRN, C.N.P., M.S.N. CV ECHO PA OCEDURES Lipid Panel (10/15/2020 7:59 AM SALES LEADER) P athologist Signature Cholesterol, 198 mg/dL 10/15/2020 DTL Total 9:14 AM SALES LEADER Comment: ----REFERENCE VALUE---- Desirable: < 200 Borderline high: 200 - 239 High: > or = 240 Triglycerides 56 mg/dL 10/15/2020 9:14 AM SALES LEADER DTL Comment: ----REFERENCE VALUE---- Normal: <150 Borderline high: 150-199 High: 200-499 Very high: > or =500 Cholesterol, HDL, S 75 >=40 mg/dL 10/15/2020 9:14 AM SALES LEADER DTL Calculated LDL 112 mg/dL 10/15/2020 9:14 AM SALES LEADER DT L Comment: ----REFERENCE VALUE---- Desirable: <100 Above Desirable: 100-129 Borderline high: 130-159 High: 160-189 Very high: > or =190 Cholesterol, Non-HDL, Calculated 123 mg/dL 020 9:14 AM SALES LEADER DTL Comment: ----REFERENCE VALUE---- Desirable: <130 Above Desirable: 130-159 Borderline high: 160-189 High: 190-219 Very high: > or =220 Specimen Anatomical Collection Method Collection Time Receive d Time (Source) Location / / Volume Laterality Blood (Blood, 10/15/2020 7:59 AM 10/15/20 8:52 Venous) SALES LEADER AM SALES LEADER Danny Eastman APRNNLibrado., M.S.N. LAB BLOOD ADD-ON Performing Organization Address City/State/ZIP Code Phon e Number [facility] - [address] [place], [place] [address] [place] [address] Laboratories-[facility] [address] ALT (Alanine Aminotransferase) (10/15/2020 7:59 AM SALES LEADER) Patholo gist Method Time Signature Alanine 21 7 - 55 10/15/2020 DTL Aminotransferase U/L 9:14 AM SALES LEADER (ALT), S Specimen Anatomical Collection Method Collection Time Receive d Time (Source) Location / / Volume Laterality Blood (Blood, 10/15/2020 7:59 AM 10/15/20 8:52 Venous) SALES LEADER AM SALES LEADER Danny Eastman APRNNLibrado., M.S.N. LAB BLOOD ADD-ON Performing Organization Address City/[facility] Phon e Number [facility] - [address] CBC without Differential (10/15/2020 7:59 AM SALES LEADER) P athologist Signature Hemoglobin 13.8 13.2 - 10/15/2020 DTL 16.6 g/dL 8:42 AM SALES LEADER Hematocrit 41.0 38.3 - 10/15/2020 DTL 48.6 % 8:42 AM SALES LEADER Erythrocytes 4.43 4.35 - 10/15/2020 DTL 5.65 8:42 AM SALES LEADER x10(12)/L MCV 92.6 78.2 - 10/15/2020 DTL 97.9 fL 8:42 AM SALES LEADER RBC Distrib Width 13.2 11.8 - 10/15/2020 DTL 14.5 % 8:42 AM SALES LEADER Platelet Count 212 135 - 317 10/15/2020 DTL x10(9)/L 8:42 AM SALES LEADER Leukocytes 5.2 3.4 - 9.6 10/15/2020 DTL x10(9)/L 8:42 AM SALES LEADER Specimen Anatomical Collection Method Collection Time Receive d Time (Source) Location / / Volume Laterality Blood (Blood, 10/15/2020 7:59 AM 10/15/20 20 8:28 Venous) SALES LEADER AM SALES LEADER Radha Eastman APRN.NLibrado., M.S.N. LAB BLOOD ADD-ON Performing Organization Address [facility] Phon e Number [facility] - [address] [place], [place] [address] [address] [place], [place] [id number] [place] [address] [address] [place] [address] (ABNORMAL) Basic Metabolic Panel (10/15/2020 7:59 AM SALES LEADER) P athologist Signature Potassium, S 5.0 3.6 - 5.2 10/15/2020 DTL mmol/L 9:11 AM SALES LEADER Sodium, S 127 (L) 135 - 145 10/15/2020 DTL mmol/L 9:11 AM SALES LEADER Chloride, S 92 (L) 98 - 107 10/15/2020 DTL mmol/L 9:11 AM SALES LEADER Bicarbonate, S 27 22 - 29 10/15/2020 DTL mmol/L 9:11 AM SALES LEADER Anion Gap 8 7 - 15 10/15/2020 DTL 9:11 AM SALES LEADER BUN (Blood Urea 16 8 - 24 10/15/2020 DTL Nitrogen), S mg/dL 9:11 AM SALES LEADER Creatinine 0.89 0.74 - 10/15/2020 DTL 1.35 mg/dL 9:11 AM SALES LEADER eGFR-Non 82 >=60 10/15/2020 DTL Black/ mL/min/BSA 9:11 AM SALES LEADER [place] Comment: ----ADDITIONAL INFORMATION---- Estimated GFR calculated using the 2009 CKD_EPI creatinine equation. eGFR-Black/ >90 >=60 mL/min/BSA 2019 9:11 AM SALES LEADER DTL Comment: ----ADDITIONAL INFORMATION---- Estimated GFR calculated using the 2009 CKD_EPI creatinine equation. Calcium, Total, S 9.0 8.8 - 10.2 mg/dL 10/15/2020 9:11 AM SALES LEADER DTL Glucose, S 105 70 - 140 mg/dL 10/15/2020 9:11 AM SALES LEADER D TL Specimen Anatomical Collection Method Collection Time Receive d Time (Source) Location / / Volume Laterality Blood (Blood, 10/15/2020 7:59 AM 10/15/20 8:50 Venous) SALES LEADER AM SALES LEADER Natasha Fagan APRN, C.N.P., M.S.N. LAB BLOOD ADD-ON Performing Organization Address City/State/ZIP Code Phon e Number [facility] - [address] [place], [place] [address] [place] [address] [facility] [address] documented in this encounter Visit Diagnoses Diagnosis Chronic Systolic (Congestive) Heart Fail ure (HCC) - Primary Cardiomyopathy Ischemic Hyperlipidemia Atherosclerotic Heart Disease Of [place] Coronary Artery Without Angina Pectoris Chronic Systolic (Congestive) Heart Fail ure (HCC) Cardiomyopathy Ischemic documented in this encounter Care Teams City Mail Carrier Relationship Specialty Start Date End Date Elsewhere, Pcp PCP - General Family Medicine 10/25/18 documented as of this encounter
--- OUTSIDE RECORDS SUMMARY | 2022-08-27 11:26 | XMS_ITS | Encounter Summary ---
:[address] 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 [address] [place] [address] Referral ID Status Reason Start Date Expiration Date Visits Requ ested Visits Authorized [id number] Closed 09/06/2019 09/05/2020 6 6 Encounter Details Date Type Department Care Team Description 04/28/2020 Hospital Encounter Department of Dionicio Lopez ied B Cell Radiology, Dante Galindo, Lymp [facility], 1928–1983, in M.D. Nodes Of Multiple [place], [address] [facility] Sites ([facility]) [place], [place] [address] [facility] [address] [place], [place] [phone] (Work) [phone] Social History Tobacco Use Types Packs/Day Years [...] More than 4 times per year 10/15/2019 faith services? Do you belong to any clubs [...] Natasha Mullins APRN, C.N.P., M.S.N. [address] [place] [phone] (Wo rk) 10/11/2022 Ancillary Procedure Cardiovascular Disease Natasha Cramer APRN, Radha.N.P., M.S.N. [address] [place] [phone] (Wo rk) 10/11/2022 Appointment Cardiovascular Disease Natasha Mullins APRN, C.NRenetta, M.S.N. [address] [place] [phone] (Wo rk) 10/12/2022 Office Visit Cardiovascular Disease Natasha Mullins APRN, C.N.Franklin., M.S.N. [address] [place] [phone] (Joanie rk) documented as of this encounter Procedures Procedure Name Priority Date/Time Associated Comments Diagnosis PET CT SKULL TO RAD - Routine 04/28/2020 11:15 Unspecified B Cell R esults for this THIGH (most inpatients AM CDT Lymphoma Lymph procedure are in and all Nodes Of Multiple the result s outpatients) Sites (HCC) section. documented in this encounter Results PET [...] RADIOPHARMACEUTICAL/MEDS: Route: intravenous fludeoxyglucose F 18 injection RESIDENTIAL (FDG F-18),14.81 millicurie TECHNIQUE: ??F-18 FDG PET/CT [...] RADIOPHARMACEUTICAL/MEDS: Route: intravenous fludeoxyglucose F 18 injection RESIDENTIAL (FDG F-18),14.81 millicurie TECHNIQUE: F-18 FDG PET/CT [...] This is unchanged since the prior. 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
--- OUTSIDE RECORDS SUMMARY | 2022-08-27 11:26 | XMS_ITS | Encounter Summary ---
:1945 Author Organization [facility] Address [address] [place] [address] Care Team Providers Name Role Phone Elsewhere, Pcp Primary Care Provider Unavailable Reason for Visit Outpatient (Routine) - Closed Specialty Diagnoses / Procedures Referred By Contact Refer red To Contact Otorhinolaryngology Wilbert Child M.D. [address] [phone] Referral ID Status Reason Start Date Expiration Date Visits Requ ested Visits Authorized [id number] Closed 04/18/2019 04/17/2020 1 1 Encounter Details Date Type Department Care Team Description 06/26/2019 Office Visit Department of Lilly, Yo Neop lasm Of Thyroid Papillary (HCC) (Primary Dx); Otorhinolaryngology in Da Carballo M.D. Unspe cified B Cell Lymphoma Lymph Nodes Of Multiple Sites (HCC); [place], [place] Follow Up Examination Postop erative Visit [address] [place] [phone] Social History Tobacco Use Types Packs/Day [...] or relatives? How often do you attend muslim or More than 4 times per year 10/15/2019 yarsani services? Do you belong to any clubs or Yes 10/15/2019 organizations such as muslim groups, unions, fraternal or athletic groups, or [...] documented as of this encounter Progress Notes Anai Torres APRN, C.N.P. - 06/26/2019 3:00 PM CDT CHIEF COMPLAINT/PU PROSE OF VISIT: 1. 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 Postop check HISTORY OF PRESENT ILLNESS: Mr. Khanna is a pleasant 73-year-old male with a history of papillary thyroid carcinoma and lymphoma. He was diagnosed with papillary thyroid carcinoma December of 2013. He was treated with a total thyroidectomy in a lymph node that was positive in the submandibular region was excised. He had a totalof 4 lymph nodes positive for metastatic papillary thyroid carcinoma. He was then treated with radioactive iodine He developed recurrence in 2014 and was treated with the left and central neck dissection. Twelve of27 lymph nodes were positive for papillary thyroid carcinoma. Earlier this year, 2018, he was noted to have an increasing thyroglobulin level. An ultrasound and PET scan demonstrated nodules in the left neck. CURRENT MEDICATIONS: Reviewed and updated in the EMR. ALLERGIES: Allergies Allergen Reactions ??? Clindamycin Other (see comments) Unknown. ??? Iodinated Contrast Media Itching Possible adverse reaction to iodinated contrast given at [facility] [place] in 2006. Visi [address] scan on 12/12/13. No reaction noted. ??? Mold Other (see comments) Unknown. ??? Penicillins Other (see comments) Unknown. ??? Pneumococcal Vaccine Other (see comments) Headache and body ache Headache and body ache ??? Shellfish Containing Products Nausea And Vomiting . PAST MEDICAL HISTORY: Past Medical History: Diagnosis Date ??? Asthma NOS ??? Cataract ??? Coronary Artery Disease (Unspecified) ??? Gastroesophageal Reflux Disease NOS ??? Hyperlipidemia ??? Hypertension NOS ??? Lymphoma (HCC) ??? Malignant Neoplasm Of Thyroid (HCC) ??? Other Injury Of Unspecified Body Region ??? ST Elevation Myocardial Infarction Of Unspecified Site (HCC) SURGICAL HISTORY: Past Surgical History: Procedure Laterality Date ??? CORONARY ANGIOPLASTY WITH STENT PLACEMENT N/A 08/24/2015 >1. PTCA and drug-eluting stent placement to the mid- LAD. 2. Drug-eluting stent placement to the proximal LAD. ??? MODIFIED DISSECTION NECK Left 04/17/2019 Procedure: Modified Dissection Neck, proceed as indicated.; Surgeon: Da Carr M.D.; Location: [facility] OR ??? THYROID SURGERY ??? TONSILLECTOMY ??? VASECTOMY SOCIAL HISTORY: Social History Socioeconomic History ??? Marital status: Spouse name: Not on file ??? Number of children: Not on file ??? Years of education: Not on file ??? Highest education level: Not on file Occupational History ??? Not on file Social Needs ??? Financial resource strain: Not on file ??? Food insecurity: Worry: Not on file Inability: Not on file ??? Transportation needs: Medical: Not on file Non-medical: Not on file Tobacco Use ??? Smoking status: Passive Smoke Exposure - Never Smoker ??? Smokeless tobacco: Never Used Substance and Sexual Activity ??? Alcohol use: No ??? Drug use: No ??? Sexual activity: Never Lifestyle ??? Physical activity: Days per week: Not on file Minutes per session: Not on file ??? Stress: Not on file Relationships ??? Social connections: Talks on phone: Not on file Gets together: Not on file Attends yarsani service: Not on file Active member of club or organization: Not on file Attends meetings of clubs or organizations: Not on file Relationship status: Not on file ??? Intimate partner violence: Fear of current or ex partner: Not on file Emotionally abused: Not on file Physically abused: Not on file Forced sexual activity: Not on file Other Topics Concern ??? Not on file Social History Narrative ??? Not on file FAMILY HISTORY: Family History Problem Relation Age of Onset ??? Hypertension Mother ??? Asthma Mother ??? Migraines Mother ??? Coronary artery disease Father PHYSICAL EXAM: General: 73 y.o. year old male, in no acute distress. Skin: No rashes or lesions. Left neck with surgical incision well approximated and intact. Palpation reveals no significant abnormalities. Good shoulder mobility is identified the patient is without complaints related to the head and neck. DIAGNOSIS/PLAN: #1 Status post left neck dissection with 2 of 23 lymph nodes positive for papillary thyroid carcinoma the largest tumor deposit measuring 4.1 cm. 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 Carr examined the patient reviewed pathology results. I will contact Dr. Wu in endocrinology and varnish melter helper that the patient's at [facility] for further follow-up related to papillary thyroid carcinoma and low- grade B-cell lymphoma. I will then call the patient with results PATIENT EDUCATION Ready to learn, no apparent learning barriers were identified; learning preferences include listening. Explained diagnosis and treatment plan; patient expressed understanding of the content. documented in this encounter Plan of Treatment Upcoming Encounters Date Type Specialty Care Team Description 10/11/2022 Appointment Laboratory Medicine Natasha Mullins APRN, Radha.N.P., M.S.N. [address] [place] [address] [phone] (Wo rk) 10/11/2022 Ancillary Procedure Cardiovascular Disease Natasha Cramer APRN, Radha.N.P., M.S.N. [address] [place] [phone] (Wo rk) 10/11/2022 Appointment Cardiovascular Disease Natasha Mullins APRN, C.N.P., M.S.N. [address] [place] [phone] (Wo rk) 10/12/2022 Office Visit Cardiovascular Disease Natasha Mullins APRN, C.N.P., M.S.N. [address] [place] [address] [phone] (Wo rk) documented as of this encounter Visit Diagnoses Diagnosis Malignant Neoplasm Of Thyroid Papillary (HCC) - Primary Unspecified B Cell Lymphoma Lymph Nodes Of Multiple Sites (HCC) Follow Up Examination Postoperative Visi t documented in this encounter Care Teams Chemical Engineering Professor Relationship Specialty Start Date End Date Elsewhere, Pcp PCP - General Family Medicine 10/25/18 documented as of this encounter
--- OUTSIDE RECORDS SUMMARY | 2022-08-27 11:27 | XMS_ITS | Encounter Summary ---
:[address] [facility] Address [address] [place] [address] Care Team Providers Name Role Phone Elsewhere, Pcp Primary Care Provider Unavailable Encounter Details Date Type Department Care Team Description 04/17/2019 Anesthesia Event [facility] MAIN OR Kosta Lopes M.D. [address] [place] [phone] [address] [facility] Maggie Gomez APRN, TAX TECHNICIAN, B.S., M.P.H., M.S.N., B.S.N., R.N. [place], [place] [phone] Anesthesia Record Procedure Summary Procedure Name Responsible Anesthesia Start Anesthesia Stop Anesthesiologist Time Time Modified Dissection Kosta Lopes M.D. 04/17/19 0739 03/02 1015 Neck, proceed as indicated. (Left: Neck) Events Date Time Event Comment 04/17/2019 0739 In Room 0739 An Start Machine/Equipmen t Checked Infection Precautions Foll owed Procedure/Site Verified NPO Sta tus Verified Supine Standard ASA Mon itors Applied 0751 An Induction 0754 An Intubation 0755 Turnover to Proceduralist 0817 Proc Start 0820 0955 Proc Fin 0959 Turnover to ANE Staff 1006 Airway Removal Criteria Met 1006 Extubation/Airway Removed 1008 an stop data 1009 Out of Room 1015 An End I completed my h andoff to the receiving staff during [facility] we 1. Identified the patient 2. Ident ified the responsible provider 3. Revi ewed the pertinent medical history 4. Discussed the surgical course 5. Review ed intra-op anesthesia management and i ssues during anesthesia 6. Set expectati ons for post-procedure period 7. Allowe d opportunity for questions and ac knowledgement of understanding. Name Total fentanyl injection 50 mcg/mL 100 mcg lidocaine 2% (mg) injection 100 mg propofol 10 mg/mL 200 mg propofol 10 mg/mL infusion 700.85 mg succinylcholine 20 mg/mL injection 140 mg phenylephrine 100 mcg/mL injection 450 mcg ePHEDrine PF 5 mg/mL syringe injection 50 mg ondansetron 4 mg/2 mL injection 4 mg glycopyrrolate 0.2 mg/mL injection 0.4 mg dexamethasone 4 mg/mL injection 10 mg remifentanil 20 mcg/mL in NaCl 0.9% 100 mL infusion (U LTIVA) 0.93 mg vancomycin 1000 mg in NaCl 0.9% 250 mL (VANCOCIN) IVPB 1,000 mg Lactated Ringers Free Drip 350 mL Agents No agents on file. Blood No blood administrations on file. Lines, Drains, and Airways Type Details Placement Removal Peripheral IV Placement Date: 04/17/19726 by 04/18/19 08 b y 04/17/19; Placement Anitra Sullivan Brouwer, B rian W, Time: 726; Catheter R.N. R.N. Size: 20 G; Orientation: Right; Location: Forearm; Site Prep: Chlorhexidine (Preferred); Technique: Anatomical landmarks; Insertion Attempts: 2; Removal Date: 04/18/19; Removal Time: 807; Removal Reason: Per order ETT Placement Date: 04/17/19754 by 04/17/19 1006 b y 04/17/19; Placement Maggie Gomez Latoya Time: 754 (created via VY Bah CRNA, B.S., VY Bah, KARISSA, B.S., procedure M.P.H., M.S.N., M.P.H., M.S.N., documentation); Mask B.S.N., R.N. B.S.N., R.N . Ventilation: Easy mask; Type: Standard ETT; Single Lumen Tube Size: 7.5 mm; Cuffed: Yes; Blade Size: MAC 3; Location: Oral; Removal Date: 04/17/19; Removal Time: 1006 (RETIRED) Incision 04/17/19; 932; Neck; 04/17/19932 by [id number] by Left; dermbond; 08/04/21 Elizabeth Dahl, [facility]-Backgrou (Removed by background R.NCarmine nd, Sched uling completion utility); Automated B [facility] Job 1418 (Removed by background completion utility) Closed/Suction Drain 04/17/19; 932; 1; Left; 04/17/19932 by 0 04/18/19 0700 by Neck; Bulb; 10 Fr. Elizabeth Dahl Brouwer, B rian W, R.N. R.N. documented in this encounter Social History Tobacco [...] or relatives? How often do you attend restorationism or More than 4 times per year 10/15/2019 catholic services? Do you belong to any clubs or Yes 10/15/2019 organizations such as restorationism groups, unions, fraternal or athletic groups, or [...] OR Notes Anesthesia Postprocedure Evaluation - Kosta Lopes M.D. - 04/17/2019 10:37 AM CDT Patient: Levi Khanna Procedure Summary Date: 04/17/19 Room / Location: [address] 01 [address] / [facility] in [place], [place] Anesthesia Start: 0739 Anesthesia Stop: 1036 Procedure: Modified Dissection Neck, proceed as indicated. (Left Neck) Diagnosis: (Papillary thyroid carcinoma.) Provider: Da Carr M.D. Responsible Provider: Kosta Lopes M.D. Anesthesia Type: general ASA Status: 3 Anesthesia Type: general Last vitals Vitals Value Taken Time BP 124/80 04/17/2019 10:30 AM Temp 36.9 ??C 04/17/2019 10:15 AM Pulse 78 04/17/2019 10:37 AM Resp 17 04/17/2019 10:37 AM SpO2 98 % 04/17/2019 10:37 AM Vitals shown include unvalidated device data. Please reference Vitals flowsheet for most recent vital signs. Anesthesia Post Evaluation Patient Disposition: general care unit Cardiovascular status: hemodynamics (HR & BP) acceptable Respiratory status: patent airway with spontaneous effort Temperature: normothermic Oxygen requirements: nasal cannula Level of consciousness: awake Pain score: pain adequately controlled and/or at baseline Post Op nausea/vomiting: none Hydration status: euvolemic Anesthesia Preprocedure Evaluation - Kosta Lopes M.D. - 04/17/2019 8:19 AM CDT Anesthesia Pre-Evaluation Pertinent components of the patient's history including current problem list, medical history, surgical history, family history, social history, medications and allergies were reviewed and updated as appropriate. The patient was examined and the Pre-op diagnosis, planned procedure, and H&P were reviewed and remain unchanged. PROBLEM LIST Relevant Problems CV (+) Heart Failure NOS ENDO (+) Malignant [...] Neck ROM: Full Mouth Opening: >3 cm Facies (pediatrics): normal Cardiovascular Rhythm: Regular Pulmonary Pulmonary Assessment: Clear ASSESSMENT / PLAN ANESTHESIA PLAN ASA: 3 Anesthesia Plan: general Patient seen and allergies reviewed; anesthesia plan and risks discussed directly with patient / legal guardian, or through an farmworker fryer farm; patient evaluated and approved for anesthesia / sedation. Use of blood products discussed with patient who consented to blood products. Anesthesia Procedure Notes - Maggie Gomez APRN, KARISSA - 04/17/2019 8:04 AM CDTAssociated Order(s): Airway Airway Date/Time: 04/17/2019 7:55 AM Performed by: Maggie Gomez APRN, CRNA Authorized by: Kosta Lopes M.D. Patient location during procedure: OR / Procedure Area PROCEDURE DETAILS: Mask difficulty assessment: easy mask Final airway type: direct laryngoscopy, intubation Laryngeal Manipulation: no Final best view of glottic structures - Cormack/Lehane Score: grade 2A ETT location: oral Adult blade type: MAC 3 Adult tube size: 7.5 Adult ETT distance at teeth/gum: 23 Oral tube type: standard ETT Cuffed: yes Number of attempt to successful placement: 1 Airway confirmation: bilateral breath sounds, positive ETCO2 and bilateral chest rise Other previous techniques attempted: none PRE PROCEDURE DETAILS: Pre evaluation for airway management: procedure Urgency: elective Preop assessment of probable difficulty: no difficulty anticipated Sedation level: anesthetized Preoxygenation: bag valve mask SEDATION / ANESTHESIA Anesthesia method: anesthesia POST PROCEDURE DETAILS: Procedure outcome: successful Airway event: no complications documented in this encounter Miscellaneous Notes Addendum Note - Maggie Gomez APRN, CRNA - 07/09/2019 12:32 PM CDT Addendum created 07/09/19 1232 by Maggie Gomez APRN, CRNA Intraprocedure Flowsheets edited documented in this encounter Plan of Treatment Upcoming Encounters Date Type Specialty Care Team Description 10/11/2022 Appointment Laboratory Medicine Natasha Mullins APRN, C.N.P., M.S.N. [address] [place] [phone] (Wo rk) 10/11/2022 Ancillary Procedure Cardiovascular Disease Natasha Cramer APRN, C.N.P., M.S.N. [address] [place] [address] [phone] (Joanie rk) 10/11/2022 Appointment Cardiovascular Disease Natasha Mullins APRN, C.NRenetta, M.S.N. [address] [place] [address] [phone] (Joanie rk) 10/12/2022 Office Visit Cardiovascular Disease Natasha Mullins APRN, C.N.P., M.S.N. [address] [place] [phone] (Joanie rk) documented as of this encounter Procedures Procedure Name Priority Date/Time Associated Comments Diagnosis LDA ANE ENDOTRACHEAL Routine 04/17/2019 8:04 AM R esults for this AIRWAY CDT procedure are i n the results section. documented in this encounter Results LDA ANE ENDOTRACHEAL AIRWAY (04/17/2019 8:04 AM CDT) Narrative Maggie Gomez APRN, CRNA - 04/17 8:04 AM CDT Maggie Gomez APRN, CRNA ? 04/17/2019 ??8:06 AM Airway Date/Time: 04/17/2019 7:55 AM Performed by: Maggie Gomez APRN, CRNA Authorized by: Kosta Lopes M.D. Patient location during procedure: OR / Procedure Area PROCEDURE DETAILS: Mask difficulty assessment: easy mask Final airway type: direct laryngoscopy, intubation Laryngeal Manipulation: no ?? Final best view of glottic structures - Cormack/Lehane Score: grade 2A ETT location: oral Adult blade type: MAC 3 Adult tube size: 7.5 Adult ETT distance at teeth/gum: 23 Oral tube type: standard ETT Cuffed: yes Number of attempt to successful placemen t: 1 Airway confirmation: bilateral breath so unds, positive ETCO2 and bilateral chest rise Other previous techniques attempted: non e PRE PROCEDURE DETAILS: Pre evaluation for airway management: pr ocedure Urgency: elective Preop assessment of probable difficulty: no difficulty anticipated Sedation level: anesthetized Preoxygenation: bag valve mask SEDATION / ANESTHESIA Anesthesia method: anesthesia POST PROCEDURE DETAILS: ? Procedure outcome: successful ?? Airway event: no complications Kosta Lopes M.D. ANESTHESIA ORDERABLES documented in this encounter Visit Diagnoses Not on filedocumented in this encounter Administered Medications Inactive Administered Medications - up to 3 most recent administrations Medication Order MAR Action Action Date Dose Rate Site dexamethasone injection (DECADRON) Given 04/17/2019 8:00 AM CDT 10 mg As needed, Starting on Tue04/17/19 at 0800, Anesthesia Intra-op ePHEDrine (PF) injection Given 04/17/2019 9:02 AM CDT 5 mg intravenous, As needed, Starting on Tue04/17/19 at 0757, Anesthesia Intra-op Given 04/17/2019 8:46 AM CDT 10 mg Given 04/17/2019 8:22 AM CDT 10 mg fentaNYL injection (SUBLIMAZE) Given 04/17/2019 9:38 AM CDT 50 mcg intravenous, As needed, Starting on Tue04/17/19 at 0743, Anesthesia Intra-op Given 04/17/2019 7:43 AM CDT 50 mcg glycopyrrolate injection (ROBINUL) Given 04/17/2019 9:02 AM CDT 0.2 mg intravenous, As needed, Starting on Tue04/17/19 at 0811, Anesthesia Intra-op Given 04/17/2019 8:11 AM CDT 0.2 mg lactated ringers New Bag 04/17/2019 7:41 AM CDT intravenous, Continuous Infusion: Per Instructions PRN, Starting on Tue04/17/19 at 0741, Anesthesia Intra-op lidocaine (PF) (cardiac) injection Given 04/17/2019 7:52 AM CDT 100 mg intravenous, As needed, Starting on Tue04/17/19 at 0752, Anesthesia Intra-op ondansetron (PF) injection (ZOFRAN) Given 04/17/2019 9:44 AM CDT 4 mg intravenous, As needed, Starting on Tue04/17/19 at 0944, Anesthesia Intra-op phenylephrine injection Given 04/17/2019 9:38 AM CDT 50 mcg intravenous, As needed, Starting on Tue04/17/19 at 0801, Anesthesia Intra-op Given 04/17/2019 9:37 AM CDT 100 mcg Given 04/17/2019 9:02 AM CDT 100 mcg propofol 10 mg/mL infusion Rate/Dose 04/17/2019 9:53 25 mcg/kg/min 1 1.2 mL/hr (DIPRIVAN) Change AM CDT intravenous, Continuous Infusion: Per Instructions PRN, Starting on Tue04/17/19 at 0756, Anesthesia Intra-op Rate/Dose Change 04/17/2019 9:44 AM CDT 50 mcg/kg/min 22.3 mL/hr Rate/Dose Change 04/17/2019 8:10 AM CDT 80 mcg/kg/min 35.7 mL/hr propofol injection (DIPRIVAN) Given 04/17/2019 7:52 AM CDT 200 mg intravenous, As needed, Starting on Tue04/17/19 at 0752, Anesthesia Intra-op remifentanil 20 mcg/mL in Rate/Dose 04/17/2019 8:43 0.1 mcg/kg/min 2 2.3 mL/hr NaCl 0.9% 100 mL infusion Change AM CDT (ULTIVA) Continuous Infusion: Per Instructions PRN, Starting on Tue04/17/19 at 0756, Anesthesia Intra-op Rate/Dose Change 04/17/2019 8:41 AM CDT 0.15 mcg/kg/min 33.5 mL/hr Rate/Dose Change 04/17/2019 8:26 AM CDT 0.05 mcg/kg/min 11.2 mL/hr succinylcholine-0.9% NaCl (PF) injection Given 04/17/2019 7:54 A M CDT 140 mg (ANECTINE) intravenous, As needed, Starting on Tue04/17/19 at 0754, Anesthesia Intra-op vancomycin 1000 mg in NaCl 0.9% 250 mL Given 04/17/2019 7:48 AM CDT 1,000 mg (VANCOCIN) IVPB 1,000 mg (rounded from 1,084.5 mg = 15 mg/kg ? 72.3 kg Adjusted weight), intravenous, at 260 mL/hr, Administer over 60 Minutes, Once, On Tue04/17/19 at 0730, For 1 dose, Intra-Op, Preoperatively within 2 hours prior to surgical incision premix bag, Drug Monitoring Program: Pharmacist to adjust medication dosing based on indication and drug clearance factors., Indications: Prophylaxis, surgical documented in this encounter Care Teams Title Coordinator Relationship Specialty Start Date End Date Elsewhere, Pcp PCP - General Family Medicine 10/25/18 documented as of this encounter
--- OUTSIDE RECORDS SUMMARY | 2022-08-27 11:27 | XMS_ITS | Encounter Summary ---
:1945 Author Organization [facility] Address [address] [place] [address] Care Team Providers Name Role Phone Elsewhere, Pcp Primary Care Provider Unavailable Encounter Details Date Type Department Care Team Description 03/22/2019 Hospital Encounter Department of Chai Fagan, Elzbieta iomyopathy Radiology, Natasha, VY, [employer], C.N.P., M.S.N . in [place], [address] [place] [address] [place] [phone] [place], [place] [phone] (Work) [phone] Social History Tobacco Use Types Packs/Day Years [...] or relatives? How often do you attend sikhism or More than 4 times per year 10/15/2019 restorationism services? Do you belong to any clubs or Yes 10/15/2019 organizations such as sikhism groups, unions, fraternal or athletic groups, or [...] Take 1 tablet (75 90 tablet 3 10/2504/18/2019 mg tablet mg total) by mouth daily. fluticasone (FLONASE) 50 Administer 1 spray 0 03/201810/15/2020 mcg/actuation nasal spray into affected nostril(s) as needed. levothyroxine (SYNTHROID, Take 200 mcg by 0 08/2409/05/2019 LEVOTHROID) 200 mcg mouth daily. tablet lisinopril Take 1 tablet (40 30 tablet [...] Medicine Natasha Mullins APRN, C.N.P., M.S.N. [address] [place] [phone] (Joanie velázquez) 10/11/2022 Ancillary Procedure Cardiovascular Disease Natasha Cramer APRN, C.N.P., M.S.N. [address] [place] [phone] (Joanie velázquez) 10/11/2022 Appointment Cardiovascular Disease Natasha Mullins APRN, C.N.P., M.S.N. [address] [place] [phone] (Joanie velázquez) 10/12/2022 Office Visit Cardiovascular Disease Natasha Mullins APRN, C.N.P., M.S.N. [address] [place] [phone] (Joanie velázquez) documented as of this encounter Procedures Procedure Name Priority Date/Time Associated Diagnosis Comme nts DX CHEST AP OR RAD - Routine 03/22/2019 1:30 Cardiomyopathy Results for PA AND LATERAL 2 (most inpatients PM CDT Ischemic this pr ocedure VIEWS and all are in the outpatients) results section. documented in this encounter Results DX Chest AP or PA and Lateral 2 Views (03/22/2019 1:30 PM CDT) Anatomical Region Laterality Modality Chest, Thoracic RST LOS, Thoracic ARZ LOS, Thoracic N/A Digital Radiography FLA LOS Specimen (Source) Anatomical Collection Method Collection Time Re ceived Time Location / / Volume Laterality 03/22/2019 1:52 PM CDT Impressions 03/22/2019 1:55 PM CDT IMPRESSION: ??Tortuous aorta. Coronary artery stent. Slight scarring left lung base. Mild degenerative change thoracic spine. Bone island posterior left eighth rib. Healed left anterolateral fourth ri b fracture. Chest otherwise negative. No change since 10/25/2018. Narrative 03/22/2019 1:55 PM CDT EXAM: ??DX CHEST AP OR PA AND LATERAL 2 VIEWS Procedure Note Mehran Little M.D. - 03/22/2019Formattin g of this note might be different from the original. EXAM: DX CHEST AP OR PA AND LATERAL 2 EWS IMPRESSION: Tortuous aorta. Coronary art cathie stent. Slight scarring left lung base. Mild degenerative change thoracic spine. Bone island posterior left eighth rib. Healed left anterolateral fourth ri b fracture. Chest otherwise negative. No change since 10/25/2018. Natasha Fagna APRN, C.N.P., M.S.N. IMG DIAGNO STIC IMAGING PROCEDURES documented in this encounter Visit Diagnoses Diagnosis Cardiomyopathy Ischemic documented in this encounter Care Teams Assembler Ping Pong Table Relationship Specialty Start Date End Date Elsewhere, Pcp PCP - General Family Medicine 10/25/18 documented as of this encounter
--- OUTSIDE RECORDS SUMMARY | 2022-08-27 11:27 | XMS_ITS | Encounter Summary ---
:1945 Author Organization [facility] Address [address] [place] [address] Care Team Providers Name Role Phone Elsewhere, Pcp Primary Care Provider Unavailable Encounter Details Date Type Department Care Team Description 03/27/2019 Documentation Department of Wilbert Child, Otorhinolaryngology in .[place], [place] [address] [place] [phone] Social History Tobacco Use Types Packs/Day [...] or relatives? How often do you attend mu-ism or More than 4 times per year 10/15/2019 nondenominational services? Do you belong to any clubs or Yes 10/15/2019 organizations such as mu-ism groups, unions, fraternal or athletic groups, or [...] documented as of this encounter Progress Notes Wilbert Child M.D. - 03/27/2019 9:06 AM CDT I received a note from the patient's tax professional that he is cleared from surgery. The patient has some important dates coming up soon and will get back to us to pick a surgical date. documented in this encounter Plan of Treatment Upcoming Encounters Date Type Specialty Care Team Description 10/11/2022 Appointment Laboratory Medicine Natasha Mullins APRN, C.N.PCarmine, M.S.N. [address] [place] [phone] (Wo rk) 10/11/2022 Ancillary Procedure Cardiovascular Disease Natasha Cramer APRN, C.N.Jalen, M.S.N. [address] [place] [phone] (Wo rk) 10/11/2022 Appointment Cardiovascular Disease Natasha Mullins APRN, C.N.Franklin., M.S.N. [address] [place] [phone] (Wo rk) 10/12/2022 Office Visit Cardiovascular Disease Natasha Mullins APRN, C.N.P., M.S.N. [address] [place] [phone] (Wo rk) documented as of this encounter Visit Diagnoses Not on filedocumented in this encounter Care Teams Chief Operating Officer Relationship Specialty Start Date End Date Elsewhere, Pcp PCP - General Family Medicine 10/25/18 documented as of this encounter
--- OUTSIDE RECORDS SUMMARY | 2022-08-27 11:27 | XMS_ITS | Encounter Summary ---
:1945 Author Organization [facility] Address [address] [place] [address] Care Team Providers Name Role Phone Elsewhere, Pcp Primary Care Provider Unavailable Encounter Details Date Type Department Care Team Description 03/21/2019 Clinical Communication Division of Dionicio Muniz , Hematology in Dante Garcia M.D. [place], [place] [address] [place] [address] [address] [place] [phone] Social History Tobacco Use Types Packs/Day Years Used Date Smoking Tobacco: Passive Smoke Exposure - Never Smoker Smokeless Tobacco: Never Alcohol Habits Answer Date Recorded How often [...] or relatives? How often do you attend buddhism or More than 4 times per year 10/15/2019 protestant services? Do you belong to any clubs or Yes 10/15/2019 organizations such as buddhism groups, unions, fraternal or athletic groups, or [...] Medicine Natasha Mullins APRN, C.N.P., M.S.N. 200 [place] [address] (Wo rk) 10/11/2022 Ancillary Procedure Cardiovascular Disease Natasha Cramer APRN, C.N.P., M.S.N. 200 [place] [phone] (Wo rk) 10/11/2022 Appointment Cardiovascular Disease Natasha Mullins APRN, C.NRenetta, M.S.N. [address] [place] [phone] (Wo rk) 10/12/2022 Office Visit Cardiovascular Disease Natasha Mullins APRN, C.NRenetta, M.S.N. 200 [place] [phone] (Wo rk) documented as of this encounter Results Pathology Review of Outside Material (12/30/2015 9:00 AM SCRIPT WORKER) Component Value Ref Test Analysis Performed At [facility] Range Method Time Signature Material A. [id number]: Bone marrow [facility] Received ? 22 stained slides 9 11:13 LABOR ATORIES [facility] Participated in Citlalli Meyer MLS [facility] the (ASCP) 9 11:13 LABORATORIES Interpretation [facility] Report Ruben Gould D.O., M.S. [facility] electronically I verify that I have examined all relevant slides/ma terials 9 11:13 LABORATORIES signed by for the specimen(s) and rendered or confirmed the diagnosi s. AM [facility] 9 11:13 LABORATORIES [facility] Interpretation FINAL DIAGNOSIS [facility] Peripheral blood, bone marrow aspirate, biopsy, and clot 9 11:13 LABORATORIES sections ([id number]; collected 12/30/2015): AM [facility] 1. 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 ??See comment. 2. ??Normocellular bone marrow (30%) with morphologically unremarkable trilineage hematopoiesis. COMMENT The lack of a complete immunophenotypic workup and the minimal degree of marrow involvement precludes further subclassification of this patient's low-grade B-cell lymphoproliferative disorder. ??Of note, the monotypic B-cells within this bone marrow evaluation express the same light chain restriction as those identified in a prior left cervical lymph node fine needle aspiration ([facility] case [id number] case [id number], part B; collected 12/12/2015, not reviewed) suggesting involvement by the same process. ??Clinicopathologic correlation is recommended. MICROSCOPIC DESCRIPTION Peripheral Blood: By report CBC: Hgb 13.7 g/dl; RBC 4.5 x10(12)/L; MCV 89.2 fL; RDW 13.6%; WBC 6.1 x10(9)/L; PLT 223 x 10(9)/L. Peripheral blood WBC differential (%): neutrophils 54; lymphocytes 21; monocytes 4; eosinophils 19; basophils 1; myelocytes 1. Red blood cells: No cytologic abnormalities. White blood cells: Granulocytes/monocytes: No cytologic abnormalities. ??Absolute eosinophilia present. ??No circulating blasts identified. ??Lymphocytes: No cytologic atypia. Platelets: No cytologic abnormalities. Bone Marrow Aspirate/Touch Imprint/Biopsy: Bone marrow differential (500-cell/direct smear): neutrophils (segs and bands) 32; metamyelocytes 5; myelocytes 8; eosinophils & precursors 5; blasts 1; normoblasts 14; monocytes 10; lymphocytes 24; plasma cells 1. Aspirate quality: Cellular. Biopsy and clot quality: The biopsy is adequate in size with some aspiration artifact present. ??The bone marrow clot section appears adequate. M:E ratio: 4:1. Cellularity: Normocellular, 30%. Erythroid precursors: Normal quantity. ??Predominantly normoblastic in maturation, however, rare precursors showing nuclear irregularity are seen. Myeloid precursors: Normal quantity. Normal morphology. Blasts not increased (<5%). ??Borderline increase in eosinophils present (5%). ??No increase in mast cells seen. Megakaryocytes: Normal quantity. Normal morphology and distribution. Lymphocytes: A single small, interstitial lymphoid aggregate composed of small lymphocytes with condensed chromatin is identified on the bone marrow biopsy (and accounts for <5% of the total marrow cellularity). Plasma cells: Not increased; Cytology: Normal; Distribution: Normal. ANCILLARY STUDIES Iron stain, bone marrow aspirate and clot sections, submitted slides: ??Storage iron appears increased. Sideroblasts are present. ??Ring sideroblasts are not seen. Immunohistochemistry, bone marrow biopsy, submitted slides, antibodies to CD3 and CD20: ??The single small lymphoid aggregate identified on H-and-E sections is predominantly composed of small [id number]-[id number] B-cells with fewer admixed CD3-positive T-cells. ??Other than this, the CD20 highlights scattered small interstitial B-cells. Flow cytometric immunophenotyping, bone marrow, by report: A monoclonal B-cell population is detected expressing bright CD45, bright CD19, CD20 and dim kappa immunoglobulin light chains (4% of the total viable nucleated events). The B-cells are negative for CD2 and lambda light chains. Specimen Anatomical Collection Method Collection Time Receive d Time (Source) Location / / Volume Laterality Varies 12/30/2015 9:00 AM 9 2:24 SCRIPT WORKER PM CDT Narrative This result has an attachment that is no t available. Dante Muniz M.D. LAB SURG PATH ORDERABLE S Performing Organization Address City/State/ZIP Code Phon e Number [facility] LABORATORIES - [address] [place], [place] [address] [place] documented in this encounter Visit Diagnoses Diagnosis Malignant Neoplasm Of Thyroid (HCC) - Pr imary documented in this encounter Care Teams Sustainable Agriculture Faculty Relationship Specialty Start Date End Date Elsewhere, Pcp PCP - General Family Medicine 10/25/18 documented as of this encounter
--- OUTSIDE RECORDS SUMMARY | 2022-08-27 11:27 | XMS_ITS | Encounter Summary ---
:1945 Author Organization [facility] Address [address] [place] [phone] Care Team Providers Name Role Phone Elsewhere, Pcp Primary Care Provider Unavailable Encounter Details Date Type Department Care Team Description 03/22/2019 Hospital Encounter Department of Chai Fagan, Card iomyopathy Ischemic; Laboratory VY Kaur, Congestive Hea rt Failure (HCC) Medicine and C.N.P., M.S.N. Pathology, [place] [address] [place] [address], in [facility] [phone] [place] [phone] [place] [address] (Work) [place], [place] [phone] (Fax) [phone] Social History Tobacco Use Types Packs/Day Years [...] or relatives? How often do you attend rastafarian or More than 4 times per year 10/15/2019 muslim services? Do you belong to any clubs or Yes 10/15/2019 organizations such as rastafarian groups, unions, fraFlash [employer]et or athletic groups, or school groups? How [...] Medicine Natasha Mullins APRN, C.N.P., M.S.N. [address] [place] [phone] (Joanie velázquez) 10/11/2022 Ancillary Procedure Cardiovascular Disease Natasha Cramer APRN, Radha.N.P., M.S.N. [address] [place] [phone] (Joanie velázquez) 10/11/2022 Appointment Cardiovascular Disease Natasha Mullins APRN, C.N.P., M.S.N. [address] [place] [phone] (Joanie velázquez) 10/12/2022 Office Visit Cardiovascular Disease Natasha Mullins APRN, C.N.P., M.S.N. [address] [place] [phone] (Joanie rk) documented as of this encounter Procedures Procedure Name Priority Date/Time Associated Diagnosis Comme nts NT-PRO B-TYPE Routine 03/22/2019 12:54 Congestive Heart Result s for this NATRIURETIC PEPTIDE PM CDT Failure (HCC ) procedure are in (BNP), S Cardiomyopathy the results Ischemic section. BUN (BLOOD UREA Routine 03/22/2019 12:54 Cardiomyopathy Result s for this NITROGEN), S/P PM CDT Ischemic procedure are in the results section. SODIUM, S/P Routine 03/22/2019 12:54 Cardiomyopathy Results f or this PM CDT Ischemic procedure are i n the results section. POTASSIUM, S/P Routine 03/22/2019 12:54 Cardiomyopathy Results for this PM CDT Ischemic procedure are i n the results section. CREATININE WITH Routine 03/22/2019 12:54 Cardiomyopathy Result s for this EGFR, S/P PM CDT Ischemic procedure are i n the results section. documented in this encounter Results (ABNORMAL) Sodium (03/22/2019 12:54 PM CDT) athologist Signature Sodium, S 132 (L) 135 - 145 03/22/2019 [facility] mmol/L 2:16 PM CDT LABORATORIES [facility] Specimen Anatomical Collection Method Collection Time Receive d Time (Source) Location / / Volume Laterality Blood (Blood, 03/22/2019 12:54 03/22/2019 1:12 Venous) PM CDT PM CDT Radha Eastman APRN.N.Franklin., M.S.N. LAB BLOOD ADD-ON Performing Organization Address City/[facility] Code Phon e Number [facility] LABORATORIES - [address] [place] [address] [address] [facility] Potassium (03/22/2019 12:54 PM CDT) athologist [facility] Potassium, S 5.1 3.6 - 5.2 03/22/2019 [facility] mmol/L 2:16 PM CDT [facility] [place] Specimen Anatomical Collection Method Collection Time Receive d Time (Source) Location / / Volume Laterality Blood (Blood, 03/22/2019 12:54 03/22/2019 1:12 Venous) PM CDT PM CDT Radha Eastman APRN.N.P., M.S.N. LAB BLOOD ADD-ON Performing Organization Address City/[facility] Code Phon e Number [facility] LABORATORIES - [address] [place] [address] [facility] (ABNORMAL) NT-Pro B-Type Natriuretic Peptide (BNP) (03/22/2019 12:54 PM CDT) athologist Signature NT-Pro BNP 258 (H) <=113 03/22/2019 [facility] pg/mL 2:16 PM CDT [facility] Comment: NT-proBNP values less than 300 pg/mL hav e a 99% negative predictive value for excluding acute congestive heart sia lure. A cutoff of 1200 pg/mL for patients with an eGFR<60 yields a diagno stic sensitivity and specificity of 89% and 72% for acute congestive heart f ailure. ??A diagnostic NT-proBNP cutoff of 900 pg/mL has been suggested i n adults 50-75 years of age in the absence of renal failure. Specimen Anatomical Collection Method Collection Time Receive d Time (Source) Location / / Volume Laterality Blood (Blood, 03/22/2019 12:54 03/22/2019 1:12 Venous) PM CDT PM CDT Radha Eastman APRN.NLibrado., M.S.N. LAB BLOOD ADD-ON Performing Organization Address City/[facility] Phon e Number [facility] LABORATORIES - [address] Creatinine with Estimated GFR (03/22/2019 12:54 PM CDT) Analysis Performed At [facility] Time Signature Creatinine 0.89 0.74 - 03/22/2019 [facility] 1.35 mg/dL 2:16 PM CDT LABORATORIES [facility] eGFR-Non 84 >=60 03/22/2019 [facility] Black/ mL/min/BSA 2:16 PM CDT LABORATORIES [facility] Comment: ----ADDITIONAL INFORMATION---- Estimated GFR calculated using the 2009 CKD_EPI creatinine equation. eGFR-Black/ >90 >=60 mL/min/BSA 03/22/2019 2:16 [facility] CDT LABORATORIES [facility] Comment: ----ADDITIONAL INFORMATION---- Estimated GFR calculated using the 2009 CKD_EPI creatinine equation. Specimen Anatomical Collection Method Collection Time Receive d Time (Source) Location / / Volume Laterality Blood (Blood, 03/22/2019 12:54 03/22/2019 1:12 Venous) PM CDT PM CDT Radha Eastman APRN.N.P., M.S.N. LAB BLOOD ADD-ON Performing Organization Address [facility] Phon e Number [facility] LABORATORIES - [address] [place] [address] 05 [facility] BUN (Blood Urea Nitrogen) (03/22/2019 12:54 PM CDT) P athologist Signature BUN (Blood 21 8 - 24 03/22/2019 [facility] Urea mg/dL 2:16 PM CDT LABORATORIES - Nitrogen), S [facility] Specimen Anatomical Collection Method Collection Time Receive d Time (Source) Location / / Volume Laterality Blood (Blood, 03/22/2019 12:54 03/22/2019 1:12 Venous) PM CDT PM CDT Natasha Fagan APRN C.N.P., M.S.N. LAB BLOOD ADD-ON Performing Organization Address City/State/ZIP Code Phon e Number [facility] LABORATORIES - [address] [place] [address] [address] [facility] documented in this encounter Visit Diagnoses Diagnosis Cardiomyopathy Ischemic Congestive Heart Failure (HCC) documented in this encounter Care Teams Horticultural Farmer Relationship Specialty Start Date End Date Elsewhere, Pcp PCP - General Family Medicine 10/25/18 documented as of this encounter
--- OUTSIDE RECORDS SUMMARY | 2022-08-27 11:27 | XMS_ITS | Encounter Summary ---
:1945 Author Organization [facility] Address [address] [place] [address] Care Team Providers Name Role Phone Elsewhere, Pcp Primary Care Provider Unavailable Reason for Visit Outpatient (Routine) - Closed Specialty Diagnoses / Procedures Referred By Contact Refer red To Contact Otorhinolaryngology Wilbert Child M.D. [facility] [address] [place] [address] Referral ID Status Reason Start Date Expiration Date Visits Requ ested Visits Authorized [id number] Closed 03/28/2019 03/27/2020 1 1 Encounter Details Date Type Department Care Team Description 04/16/2019 Office Visit Department of Yo Carrp ko Otorhinolaryngology in Da Carballo M.D. Of [place], [place] ([facility]) (Primary Dx) [address] [place] [phone] Social History Tobacco Use Types Packs/Day [...] or relatives? How often do you attend samaritan or More than 4 times per year 10/15/2019 synagogue services? Do you belong to any clubs or Yes 10/15/2019 organizations such as samaritan groups, unions, fraternal or athletic groups, or [...] encounter Progress Notes Wilbert Child M.D. - 04/16/2019 10:30 AM CDT SUBJECTIVE CHIEF COMPLAINT / REASON FOR VISIT Levi Khanna is a 73 y.o. male who presents for an evaluation of pre surgical listing for metastatic thyroid carcinoma HISTORY OF PRESENT ILLNESS Mr. Khanna is a pleasant 73-year-old male who is here for listing visit for surgery planned for tomorrow with Dr. Carr. 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 Patient also has a history of lymphoma and right neck FNA biopsy does not reveal papillary thyroid carcinoma. The patient has a significant cardiac history and is on anti-platelet agents. He met with his gm on 03/22/2019 and he was cleared for surgery. He has held his Plavix for approximately 5 days. He does not endorse any changes to his voice, swallowing, or any other symptoms. The following portions of the patient's history were reviewed and updated as appropriate: allergies,current medications, family history, medical history, social history, surgical history and problem list. REVIEW OF SYSTEMS All other systems reviewed and are negative. The following systems were negative: Constitutional, Skin, Eyes, ENT, CV, Respiratory, GI, , Hematologic, Musculoskeletal, Neuro, Psych OBJECTIVE PHYSICAL EXAM Physical Exam ?? General: Awake, alert, oriented, in no acute distress. Head: Normocephalic, atraumatic. Face: Symmetric. House-Brackmann 1/6 bilaterally. Symmetric sensation in the distribution of V1-V3. Eyes: Pupils are equal round and reactive to light bilaterally. Extraocular movements intact. No gross lateral gaze nystagmus. No conjunctival injection. Ears: Auricles unremarkable bilaterally. Otoscopy was performed on both ears. On both sides, the EACappeared clear without signs of erythema or excoriation. There was moderate cerumen in the canal. The tympanic membrane was visualized and appeared intact and non-erythematous. It was not retracted. There was a good light reflex and the middle ear space appeared well-aerated. The mastoid area was non-tender, non-erythematous, and nonfluctuant bilaterally. Nose: Bilateral nasal polyposis the middle meatus nonobstructive. Neck: Left neck level 2 and 5 lymphadenopathy with the largest node measuring 3 to 4 cm that is firmbut mobile. Neuro: Cranial nerves II-XII were grossly intact. The voice is strong without hoarseness or breathiness. Pulmonary: Non-labored breathing, no wheezing or stridor noted. Cardiac: [place], well-perfused extremities, no signs of cyanosis. 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 I reviewed the imaging with the patient and discussed surgical plans. We would proceed with a left select neck dissection areas to 3 and potentially 5 to remove the cystic neck masses. The small nodule in the left thyroid bed will be observed. The size of the mass and location may make dissection a higher risk around the recurrent laryngeal nerve. We can observe this nodule for now. We discussed a potential risk of a postoperative hematoma, infection, sensory deficit around the surgical incision, injury to the hypoglossal nerves, spinal accessory nerve, great vessels of the neck, or recurrent laryngeal nerve. I discussed the importance of postoperative calcium management after surgery. Procedures documented in this encounter Consult Notes Da Carr M.D. - 04/16/2019 10:30 AM CDT SUBJECTIVE Supervisory note for Dr. Wilbert Child. It is also a preop listing. REASON FOR CONSULT Metastatic papillary thyroid cancer. History of CLL. HISTORY OF PRESENT ILLNESS Mr. Khanna is a 73-year-old gentleman with recent development of prominent left neck area 2 and 3 lymphadenopathy consistent papillary thyroid cancer. He also has a small nodule in the left thyroid bedthat seems anteriorly positioned and approximately 6-7 mm in size. I have interviewed and examined the patient. Reviewed Dr. Child's evaluation and find it accurate. OBJECTIVE PHYSICAL EXAMINATION Lymph: Mr. Khanna has a conglomerate of lymph nodes underlying the upper sternocleidomastoid muscle.They seem mobile. I could not appreciate other palpable neck adenopathies. ASSESSMENT / PLAN #1 Metastatic papillary thyroid cancer, history of CLL PLAN: Left select neck dissection areas 2 and 3. Proceed as indicated. I preferred to not address his small left thyroid bed nodule at the present time. If it enlarges over time, he is agreeable to having this addressed at a later date if necessary. CONSENT Discussed risks, goals, convalescence, etc. The patient and spouse expressed understanding. Plan to proceed tomorrow. CT CT Job ID: [id number] documented in this encounter Plan of Treatment Upcoming Encounters Date Type Specialty Care Team Description 10/11/2022 Appointment Laboratory Medicine Natasha Mullins APRN, C.N.P., M.S.N. [address] [place] [phone] (Joanie velázquez) 10/11/2022 Ancillary Procedure Cardiovascular Disease Natasha Cramer APRN, Radha.N.P., M.S.N. [address] [place] [phone] (Joanie velázquez) 10/11/2022 Appointment Cardiovascular Disease Natasha Mullins APRN, C.N.P., M.S.N. [address] [place] [phone] (Joanie rk) 10/12/2022 Office Visit Cardiovascular Disease Natasha Mullins APRN, C.N.P., M.S.N. [address] [place] [phone] (Joanie rk) documented as of this encounter Visit Diagnoses Diagnosis Malignant Neoplasm Of Thyroid Papillary (HCC) - Primary documented in this encounter Care Teams Channel Installer Relationship Specialty Start Date End Date Elsewhere, Pcp PCP - General Family Medicine 10/25/18 documented as of this encounter
--- OUTSIDE RECORDS SUMMARY | 2022-08-27 11:27 | XMS_ITS | Encounter Summary ---
:1945 Author Organization [facility] Address [address] [place] [id number] Care Team Providers Name Role Phone Elsewhere, Pcp Primary Care Provider Unavailable Encounter Details Date Type Department Care Team Description 03/21/2019 Lab RST RO LMP Dionicio Muniz, Malignant Neoplasm Of [address] [facility] Dante Garcia M.D. Thyroid (HCC) [place], [place] [address] [place] [phone] [place] [phone] (Wo rk) Social History Tobacco Use Types [...] Medicine Natasha Mullins APRN, C.N.P., M.S.N. [address] [place] [phone] (Wo rk) 10/11/2022 Ancillary Procedure Cardiovascular Disease Natasha Cramer APRN, C.N.P., M.S.N. [address] [place] [address] [place] [phone] (Wo rk) 10/11/2022 Appointment Cardiovascular Disease Natasha Mullins APRN, C.NRenetta, M.S.N. [address] [place] [phone] (Wo rk) 10/12/2022 Office Visit Cardiovascular Disease Natasha Mullins APRN, C.NRenetta, M.S.N. [address] [place] [phone] (Wo rk) documented as of this encounter Procedures Procedure Name Priority Date/Time Associated Diagnosis Comme nts PATHOLOGY REVIEW OF Routine 12/30/2015 9:00 AM Malignant Neopl asm Results for this OUTSIDE MATERIAL PEDIATRIC LPN Of Thyroid (HCC) procedu re are in the results section. documented in this encounter Results Pathology Review of Outside Material (12/30/2015 9:00 AM PEDIATRIC LPN) Component Value Ref Test Analysis Performed At [facility] gist Range Method Time Signature Material A. [id number]: Bone marrow [facility] [employer] Received ? 22 stained slides 9 11:13 LABOR ATORIES [facility] Participated in Citlalli Meyer MLS [facility] the (ASCP) 9 11:13 LABORATORIES Interpretation [facility] Report Ruben Gould D.O., M.S. [facility] electronically I verify that I have examined all relevant slides/ma terials 9 11:13 LABORATORIES signed by for the specimen(s) and rendered or confirmed the diagnosi s. AM [facility] 9 11:13 LABORATORIES [facility] Interpretation FINAL DIAGNOSIS [facility] Peripheral blood, bone marrow aspirate, biopsy, and clot 9 11:13 LABORATORIES sections ([id number]; collected 12/30/2015): AM [facility] 1. ??Minimal marrow involvement (<5% of total marrow [facility] cellularity) by a low-grade, kappa light [...] left cervical lymph node fine needle aspiration ([facility] case [id number] case [id number], part B; collected 12/12/2015, not reviewed) suggesting [...] H-and-E sections is predominantly composed of small [id number] B-cells with fewer admixed CD3-positive T-cells. ??Other [...] Laterality Varies 12/30/2015 9:00 AM 9 2:24 PEDIATRIC LPN PM CDT Narrative This result has an attachment that is no t available. Dante Muniz M.D. LAB SURG PATH ORDERABLE S Performing Organization Address City/State/ZIP Code Phon e Number [facility] - [address] [place], [place] [address] [facility] documented in this encounter Visit Diagnoses Diagnosis Malignant Neoplasm Of Thyroid (HCC) documented in this encounter Care Teams Wax Room Supervisor Relationship Specialty Start Date End Date Elsewhere, Pcp PCP - General Family Medicine 10/25/18 documented as of this encounter
--- OUTSIDE RECORDS SUMMARY | 2022-08-27 11:27 | XMS_ITS | Encounter Summary ---
:1945 Author Organization [facility] Address [address] [place] [address] Care Team Providers Name Role Phone Elsewhere, Pcp Primary Care Provider Unavailable Encounter Details Date Type Department Care Team Description 03/19/2019 Orders Only Division of Dionicio Muniz, Lymphoma (HCC) Hematology in Dante Garcia M.D. (Primary Dx) [place], [place] [address] [facility] [address] [place] [phone] Social History Tobacco Use Types Packs/Day Years [...] More than 4 times per year 10/15/2019 scientologist services? Do you belong to any clubs [...] Natasha Mullins APRN, C.N.P., M.S.N. [address] [place] [address] (Wo rk) 10/11/2022 Ancillary Procedure Cardiovascular Disease Natasha Cramer APRN, C.N.P., M.S.N. [address] [place] [address] [phone] (Joanie velázquez) 10/11/2022 Appointment Cardiovascular Disease Natasha Mullins APRN, C.N.P., M.S.N. [address] [place] [phone] (Joanie velázquez) 10/12/2022 Office Visit Cardiovascular Disease Natasha Mullins APRN, C.N.P., M.S.N. [address] [place] [phone] (Joanie velázquez) documented as of this encounter Visit Diagnoses Diagnosis Lymphoma (HCC) - Primary documented in this encounter Care Teams Access Nurse Relationship Specialty Start Date End Date Elsewhere, Pcp PCP - General Family Medicine 10/25/18 documented as of this encounter
--- OUTSIDE RECORDS SUMMARY | 2022-08-27 11:27 | XMS_ITS | Encounter Summary ---
:1945 Author Organization [facility] Address [address] [place] [address] Care Team Providers Name Role Phone Elsewhere, Pcp Primary Care Provider Unavailable Encounter Details Date Type Department Care Team Description 03/21/2019 Orders Only Division of Endocrinology Loni Wu Co ngestive Heart in [facility] milan Love M.D. Failure (HCC) (Primary [address] Dx) [place], [place] [address] [place], [place] [phone] Social History Tobacco Use Types Packs/Day Years [...] or relatives? How often do you attend protestant or More than 4 times per year 10/15/2019 confucianism services? Do you belong to any clubs or Yes 10/15/2019 organizations such as protestant groups, unions, fraternal or athletic groups, or [...] Natasha Mullins APRN, C.N.P., M.S.N. [address] [place] [phone] (Wo rk) 10/11/2022 Ancillary Procedure Cardiovascular Disease Natasha Cramer APRN, C.N.P., M.S.N. [address] [place] [address] [phone] (Joanie velázquez) 10/11/2022 Appointment Cardiovascular Disease Natasha Mullins APRN, C.N.P., M.S.N. [address] [place] [address] [phone] (Joanie velázquez) 10/12/2022 Office Visit Cardiovascular Disease Natasha Mullins APRN, C.N.P., M.S.N. [address] [place] [address] [phone] (Joanie velázquez) documented as of this encounter Visit Diagnoses Diagnosis Congestive Heart Failure (HCC) - Primary documented in this encounter Care Teams Business Intelligence Reporting Analyst Relationship Specialty Start Date End Date Elsewhere, Pcp PCP - General Family Medicine 10/25/18 documented as of this encounter
--- OUTSIDE RECORDS SUMMARY | 2022-08-27 11:27 | XMS_ITS | Encounter Summary ---
:1945 Author Organization [facility] Address [address] [place] [address] Care Team Providers Name Role Phone Elsewhere, Pcp Primary Care Provider Unavailable Reason for Visit Outpatient (Routine) - Closed Specialty Diagnoses / Procedures Referred By Contact Refer red To Contact Otorhinolaryngology Diagnoses Malignant Neoplasm [facility]HCC) [facility] [place] [address] [place] [address] Referral ID Status Reason Start Date Expiration Date Visits Requ ested Visits Authorized [id number] Closed 03/16/2019 03/15/2020 1 1 Encounter Details Date Type Department Care Team Description 03/20/2019 Comprehensive Visit Department of Lilly matias Otorhinolaryngology in Da Neopl asm [place], [place] Thyroid (HCC) [address] [place] [phone] Social History Tobacco Use Types Packs/Day [...] More than 4 times per year 10/15/2019 baptism services? Do you belong to any clubs or Yes 10/15/2019 organizations such as taoist groups, unions, fraternal or athletic groups, or [...] PM CDT documented as of this encounter Procedure Notes Susi Abbott M.D. - 03/20/2019 2:00 PM CDTAssociated Order(s): LARYNGOSCOPY Post-Procedure Diagnose(s): Malignant Neoplasm Of Thyroid (HCC) Laryngoscopy Date/Time: 03/20/2019 2:36 PM Performed by: SUSI ABBOTT Authorized by: SUSI ABBOTT Consent: Consent obtained: verbal Pre-procedure details: Indications: assessment of airway and oncologic surveillance follow-up Nasal: Right nasal cavity: normal Right inferior turbinate: normal Left nasal cavity: normal Left inferior turbinate: normal Sinus: Right middle meatus positive for: polyps Left middle meatus positive for: polyps Nasopharynx: Nasopharynx: normal Right eustachian tube orifice: normal Left eustachian tube orifice: normal Oropharynx: Posterior pharyngeal wall: normal Vallecula: normal Base of tongue: normal Epiglottis: normal Hypopharynx: Right hypopharynx: normal Left hypopharynx: normal Larynx: Right false vocal cords: normal Left false vocal cords: normal Right true vocal cords: normal Left true vocal cords: normal Posterior glottis: normal Subglottis: normal documented in this encounter Consult Notes Susi Abbott M.D. - 03/20/2019 2:00 PM CDT SUBJECTIVE CHIEF COMPLAINT / REASON FOR VISIT Levi Khanna is a 73 y.o. male who presents for an evaluation of metastatic papillary thyroid cancer. HISTORY OF PRESENT ILLNESS This patient is a 73-year-old male with a history of lymphoma and coronary artery disease. The patient was diagnosed papillary thyroid carcinoma in December 2013. The patient was treated with the totalthyroidectomy and a lymph node was positive the submandibular region. He had a total to a 4 lymph nodes positive for metastatic papillary carcinoma. The patient was treated with radioactive iodine following surgery. The patient had recurrence in 2014 in the neck and was treated with a left and centralneck dissection. The 12 at 27 lymph nodes were positive for papillary thyroid cancer. The patient had been doing fine until recently his thyroglobulin level had increased the upon which was 19 most recently. T4 was 1.9 and TSH was 0.1. A ultrasound and PET scan was performed that demonstrated nodules in his left neck. The patient has not distal history of lymphoma complicating history and right nodules were also found. The nodules in left neck largest was 2 x 4 x 4.1 cm and 2.1 x 3.6 x 2.8 cm in levels 2 and level 5 respectively. An FNA biopsy was performed on March 07, 2018 with metastatic papillary thyroid carcinoma left neck node and a right neck node demonstrated low-grade B-cell lymphoma. Thepatient is completely asymptomatic and denies any dysphagia shortness of breath or any other symptoms. He endorses a history of a Chyle leak from his previous surgery that required a low-fat diet and self-resolved. Medical history: Coronary artery disease in 2015 requiring stent placement. Patient is currently on aspirin 81 mg and Plavix. He also has a history of asthma and chronic shoulder pain. Most recent echocardiogram demonstrates ejection fraction of 50%. Family history: No history of thyroid carcinoma Social history denies alcohol or tobacco use. 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 REVIEW OF SYSTEMS All other systems reviewed and are negative. The following systems were negative: Constitutional, Skin, Eyes, ENT, CV, Respiratory, GI, , Hematologic, Musculoskeletal, Neuro, Psych OBJECTIVE PHYSICAL EXAM Physical Exam General: Awake, alert, oriented, in no acute [...] breathing, no wheezing or stridor noted. Cardiac: [place], well-perfused extremities, no signs of cyanosis. ASSESSMENT / PLAN #1 Malignant Neoplasm Of Thyroid (HCC) #2 Heart Failure NOS #3 Hyperlipidemia #4 Congestive Heart Failure Systolic Chronic Heart Failure With Reduced Ejection Fraction (HCC #5 Coronary Artery Disease Post Myocardial Infarction #6 Cardiomyopathy Ischemic #7 Unspecified B Cell Lymphoma Lymph Nodes Of Multiple Sites (HCC) It is my pleasure see this patient in consultation today. I reviewed the imaging with the patient and discussed the findings on the neck exam. He has lymphadenopathy that we believe can be treated surgically with a left revision neck dissection including levels 2 through 5. We discussed the risk and po tential injury of the marginal branch of the facial nerve, hypoglossal nerve, spinal accessory nerve, and recurrent laryngeal nerve. We also discussed the risk of intraoperative Chyle leak that may require a special low-fat diet or return to the operating room. We also discussed the risk of injury to the recurrent laryngeal nerve due to revision surgery and scar. We discussed the risk of hematoma andshoulder weakness after surgery that may require physical therapy. We will obtain a CT scan of the neck with contrast. He reports having allergy to contrast but has previously had a CT with contrast and I suspect this can be used again. We will have him see Cardiology and once he is cleared for surgery we can determine a surgical date. Questions welcome answered best my ability Procedures Laryngoscopy: A comprehensive upper airway exam was performed using a flexible fiberoptic scope under topical anesthesia. Verbal consent was obtained and universal protocol was followed. The naris was anesthestized using oxymetazoline with tetracaine nasal spray. The endoscope was passed gently along the floor of the nose. The nasal cavity was unremarkable except for bilateral nasal polyposis in the middle meatus.The nasopharynx was without masses or lesions. The scope was passed in to the oropharynx. There wereno masses or lesions appreciable here. The posterior pharyngeal wall and palatine tonsils were non-erythematous without exudates. The base of tongue, vallecula, lingual tonsils, epiglottis, were all unremarkable. The pyriform sinuses, arytenoids, aryepiglottic folds were without masses or lesions. Thevocal cords were visualized and appeared symmetrically mobile on abduction and adduction. There wereno nodules, granulomas, or papillomas visualized on the vocal cords. Full glottic closure can be achieved with phonation. The subglottis was briefly visualized and appeared patent without edema or stenosis. The endoscope was then withdrawn atraumatically and the patient tolerated the procedure well. Da Carr M.D. - 03/20/2019 2:00 PM CDT SUBJECTIVE REFERRAL SOURCE Dr. Wu. Supervisory note for Dr. Sina Abbott. REASON FOR CONSULT Metastatic papillary thyroid cancer, B-cell lymphoma, history of myocardial infarction. HISTORY OF PRESENT ILLNESS Mr. Khanna is a 73-year-old bustillo with a history of a primary thyroidectomy and central compartmentnode dissection in 2013 with revision of central compartment surgery and neck dissection in 2014. Due to increasing thyroglobulin and the notation of neck masses, further evaluation has been completed.The fine-needle aspiration biopsy of the left neck mass was positive for papillary thyroid cancer. Smaller nodes noted on the right were consistent with B-cell lymphoma. His past history is significantfor myocardial infarction in 2015. He is currently on aspirin and Plavix. He presents with an ultrasound that does document adenopathy in the left neck areas 2 and 3 and a small nodule in the thyroid bed region. The patient does note seasonal allergies and now uses an antihistamine as well as topical steroids. OBJECTIVE PHYSICAL EXAMINATION I have interviewed and examined the patient and reviewed Dr. Abbott's evaluation and find it accurate. Oral cavity exam revealed intact mucosa. No ulceration. No movement abnormalities noted. Palpation ofthe neck does reveal obvious adenopathy in the area 2 and area 5 superiorly. This probably extends down clearly to area 3 as well. I could not appreciate distinct adenopathy on the right. Fiberoptic examination completed after topical application of lidocaine and Chao-Synephrine revealed bilateral pale-appearing nasal polyps. The nasopharynx is clear. Vocal folds seemed to move symmetrically. ASSESSMENT / PLAN #1 Metastatic papillary thyroid cancer #2 B-cell lymphoma #3 History of myocardial infarction #4 Seasonal allergic rhinitis with nasal polyposis PLAN: CT scan of the neck with contrast. Follow up with Cardiology. Return for a preop visit. Discussed preliminarily the process for admission, general anesthetic, select neck dissection areas 2 and 3, possible revision of 4 versus 6, modified by the CT imaging pending. Discussed with the patient and spouse who expressed understanding. CT CT Job ID: [id number] documented in this encounter Plan of Treatment Upcoming Encounters Date Type Specialty Care Team Description 10/11/2022 Appointment Laboratory Medicine Natasha Mullins APRN, C.N.P., M.S.N. [address] [place] [address] [phone] (Joanie rk) 10/11/2022 Ancillary Procedure Cardiovascular Disease Natasha Cramer APRN, C.N.P., M.S.N. [address] [place] [phone] (Joanie rk) 10/11/2022 Appointment Cardiovascular Disease Natasha Mullins APRN, C.N.P., M.S.N. [address] [place] [phone] (Joanie rk) 10/12/2022 Office Visit Cardiovascular Disease Natasha Mullins APRN, C.N.P., M.S.N. [address] [place] [phone] (Joanie rk) documented as of this encounter Procedures Procedure Name Priority Date/Time Associated Diagnosis Comme nts LARYNGOSCOPY Routine 03/20/2019 2:00 PM Malignant Neoplasm Of Results for this CDT Thyroid (HCC) procedure are in the results section . documented in this encounter Results Laryngoscopy (03/20/2019 2:00 PM CDT) Narrative Susi Abbott M.D. - 03/20/2019 2:00 P M CDT Susi Abbott M.D. ? 03/20/2019 ??2:37 PM Laryngoscopy Date/Time: 03/20/2019 2:36 PM Performed by: SUSI ABBOTT Authorized by: SUSI ABBOTT Consent: ??Consent obtained: verbal Pre-procedure details: ??Indications: assessment of airway and oncologic surveillance follow-up ?? Nasal: ??Right nasal cavity: normal ??Right inferior turbinate: normal ??Left nasal cavity: normal ??Left inferior turbinate: normal Sinus: ??Right middle meatus positive for: [place] yps ?Left middle meatus positive for: poly ps ?? Nasopharynx: ??Nasopharynx: normal ??Right eustachian tube orifice: normal ??Left eustachian tube orifice: normal Oropharynx: ??Posterior pharyngeal wall: normal ?Vallecula: normal ??Base of tongue: normal ??Epiglottis: normal Hypopharynx: ??Right hypopharynx: normal ??Left hypopharynx: normal Larynx: ??Right false vocal cords: normal ??Left false vocal cords: normal ??Right true vocal cords: normal ??Left true vocal cords: normal ??Posterior glottis: normal ??Subglottis: normal Susi Abbott M.D. ENT ORDERABLES documented in this encounter Visit Diagnoses Diagnosis Malignant Neoplasm Of Thyroid (HCC) documented in this encounter Care Teams Conche Loader And Unloader Relationship Specialty Start Date End Date Elsewhere, Pcp PCP - General Family Medicine 10/25/18 documented as of this encounter
--- OUTSIDE RECORDS SUMMARY | 2022-08-27 11:27 | XMS_ITS | Encounter Summary ---
:1945 Author Organization [facility] Address [address] [place] [address] Care Team Providers Name Role Phone Elsewhere, Pcp Primary Care Provider Unavailable Encounter Details Date Type Department Care Team Description 03/20/2019 Ancillary Procedure Department of Otorhinolaryngology Social History Tobacco Use Types Packs/Day Years [...] or relatives? How often do you attend congregational or More than 4 times per year 10/15/2019 denominational services? Do you belong to any clubs or Yes 10/15/2019 organizations such as congregational groups, unions, fraternal or athletic groups, or [...] Medicine Natasha Mullins APRN, C.N.P., M.S.N. [address] [place] [phone] (Joanie velázquez) 10/11/2022 Ancillary Procedure Cardiovascular Disease Natasha Cramer APRN, C.N.P., M.S.N. [address] [place] [phone] (Joanie velázquez) 10/11/2022 Appointment Cardiovascular Disease Natasha Mullins APRN, C.N.P., M.S.N. [address] [place] [phone] (Wo rk) 10/12/2022 Office Visit Cardiovascular Disease Natasha Mullins APRN, C.N.Jalen, M.S.N. [address] [place] [phone] (Wo rk) documented as of this encounter Procedures Procedure Name Priority Date/Time Associated Comments Diagnosis OTORHINOLARYNGOLOGY IMAGE Routine 03/20/2019 2:49 Results for this EXAM PM CDT procedure are i n the results section. documented in this encounter Results Direct Laryngoscopy-Otorhinolaryngology Image Exam (03/20/2019 2:49 PM CDT) Specimen (Source) Anatomical Collection Method Collection Time Re ceived Time Location / / Volume Laterality 03/20/2019 2:53 PM CDT Narrative [facility] - 03/20/2019 2:49 PM CDT This order has been created and auto-finalized to support the import of images acquired without order. The clini eugene documentation to support these images can be found on the encounter sangeeta t produced images. Provider Not In System IMG NON RAD IMAGING PROCEDUR ES Performing Organization Address City/State/ZIP Code Phon e Number [facility] NA documented in this encounter Visit Diagnoses Not on filedocumented in this encounter Care Teams Degreasing Solution Mixer Relationship Specialty Start Date End Date Elsewhere, Pcp PCP - General Family Medicine 10/25/18 documented as of this encounter
--- OUTSIDE RECORDS SUMMARY | 2022-08-27 11:27 | XMS_ITS | Encounter Summary ---
:1945 Author Organization [facility] Address [address] [place] [id number] Care Team Providers Name Role Phone Elsewhere, Pcp Primary Care Provider Unavailable Reason for Referral Outpatient (Routine) - Closed Specialty Diagnoses / Procedures Referred By Contact Refer red To Contact Cardiovascular Disease Lauren Mullins APRN, C.N.P., M.S.N. [address] [place] [phone] Referral ID Status Reason Start Date Expiration Date Visits Requ ested Visits Authorized [id number] Closed 03/20/2019 03/19/2020 1 1 Encounter Details Date Type Department Care Team Description 03/20/2019 Orders Only Department of Chai Fagan, Cardiomyop athgenaro Ischemic (Primary Dx); Cardiovascular Medicine VY Kaur Con gestive Heart Failure (HCC) in [facility] Justin, M.S.N. [address] [place] [address] [place] [phone] Social History Tobacco Use Types Packs/Day Years [...] or relatives? How often do you attend religion or More than 4 times per year 10/15/2019 lutheran services? Do you belong to any clubs or Yes 10/15/2019 organizations such as religion groups, unions, fraternal or athletic groups, or [...] Medicine Natasha Mullins APRN, Radha.N.P., M.S.N. [address] [place] [phone] (Joanie rk) 10/11/2022 Ancillary Procedure Cardiovascular Disease Natasha Cramer APRN, Radha.N.P., M.S.N. [address] [place] [phone] (Joanie rk) 10/11/2022 Appointment Cardiovascular Disease Natasha Mullins APRN, C.N.P., M.S.N. [address] [place] [phone] (Joanie rk) 10/12/2022 Office Visit Cardiovascular Disease Natasha Mullins APRN, Radha.N.P., M.S.N. [address] [place] [phone] (Joanie velázquez) Scheduled Referrals Name Type Priority Associated Order Schedule Diagnoses Cardiovascular Disease Outpatient Referral Routine Expected: office visit (clinic) 2018 (Approximate), Expires: 03/20/2022 documented as of this encounter Results ECG 12 Lead (03/22/2019 2:14 PM CDT) P athologist Signature Ventricular Rate 65 BPM MUSE ECG/Min OH Interval 180 ms MUSE QRSD Interval 156 ms MUSE QT Interval 432 ms MUSE QTC Interval 449 ms MUSE P Soso 61 degrees MUSE R Soso -9 degrees MUSE T Wave Soso 57 degrees MUSE Specimen Anatomical Collection Method Collection Time Receive d Time (Source) Location / / Volume Laterality 03/22/2019 2:14 PM 9 2:28 CDT PM CDT Impressions MUSE - 03/22/2019 2:28 PM CDT Normal sinus rhythm Right bundle branch block with secondary ST-T abnormalities Anteroseptal infarct When compared with ECG of 25-OCT-2018 10 :49, Premature ventricular complexes are no l onger present QRS axis shifted right Narrative This result has an attachment that is no t available. Procedure Note Noah Keane M.D. - 03/22/2019Form atting of this note might be different from the original. 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 ECG ORDERA BLES Performing Organization Address City/State/ZIP Code Phon e Number MUSE MUSE NA DX Chest AP or PA and Lateral [...] otherwise negative. No change since 10/25/2018. Natasha Fagan APRN, C.N.P., M.S.N. IMG DIAGNO STIC IMAGING PROCEDURES (ABNORMAL) Sodium (03/22/2019 12:54 PM CDT) [facility] Sodium, S 132 (L) 135 - 145 03/22/2019 [facility] mmol/L 2:16 PM CDT [facility] Specimen Anatomical Collection Method Collection Time Receive d Time (Source) Location / / Volume Laterality Blood (Blood, 03/22/2019 12:54 03/22/2019 1:12 Venous) PM CDT PM CDT Natasha Fagan APRN, C.N.P., M.S.N. LAB BLOOD ADD-ON Performing Organization Address City/[facility]/ZIP Code Phon e Number [facility] LAB[facility]ATORIES - [address] [place] [phone] [facility] Potassium (03/22/2019 12:54 PM CDT) [facility] Potassium, S 5.1 3.6 - 5.2 03/22/2019 [facility] mmol/L 2:16 PM CDT [facility] Specimen Anatomical Collection Method Collection Time Receive d Time (Source) Location / / Volume Laterality Blood (Blood, 03/22/2019 12:54 03/22/2019 1:12 Venous) PM CDT PM CDT Danny Eastman APRNNRenetta, M.S.N. LAB BLOOD ADD-ON Performing Organization Address City/[facility] Code Phon e Number [facility]ATORIES - [address] (ABNORMAL) NT-Pro B-Type Natriuretic Peptide (BNP) (03/22/2019 12:54 PM CDT) [facility] NT-Pro BNP 258 (H) <=113 03/22/2019 [facility] pg/mL 2:16 PM CDT [facility] Comment: NT-proBNP values less than 300 pg/mL [...] Venous) PM CDT PM CDT Natasha Fagan APRN, C.N.P., M.S.N. LAB BLOOD ADD-ON Performing Organization Address City/[facility] Phon e Number [facility]ATORIES - [address] [place], [place] [address] [facility] Creatinine with Estimated GFR (03/22/2019 12:54 PM CDT) Analysis Performed At Patho logist Time Signature Creatinine 0.89 0.74 - 03/22/2019 [facility] 1.35 mg/dL 2:16 PM CDT LABORATORIES - [facility] eGFR-Non 84 >=60 03/22/2019 [facility] Black/ mL/min/BSA 2:16 PM CDT LABORATORIES - [facility] Comment: ----ADDITIONAL INFORMATION---- Estimated GFR calculated using the 2009 CKD_EPI creatinine equation. eGFR-Black/ >90 >=60 mL/min/BSA 03/22/2019 2:16 [facility] CDT LABORATORIES - [facility] Comment: ----ADDITIONAL INFORMATION---- Estimated GFR calculated using the 2009 CKD_EPI creatinine equation. Specimen Anatomical Collection Method Collection Time Receive d Time (Source) Location / / Volume Laterality Blood (Blood, 03/22/2019 12:54 03/22/2019 1:12 Venous) PM CDT PM CDT Natasha Fagan APRN, C.N.P., M.S.N. LAB BLOOD ADD-ON Performing Organization Address City/[facility] Phon e Number [facility]ATORIES - [address] [place], [place] [address] [facility] BUN (Blood Urea Nitrogen) (03/22/2019 12:54 PM CDT) P athologist Signature BUN (Blood 21 8 - 24 03/22/2019 [facility] Urea mg/dL 2:16 PM CDT LABORATORIES - Nitrogen), S [facility] Specimen Anatomical Collection Method Collection Time Receive d Time (Source) Location / / Volume Laterality Blood (Blood, 03/22/2019 12:54 03/22/2019 1:12 Venous) PM CDT PM CDT Natasha Fagan APRN, C.N.P., M.S.N. LAB BLOOD ADD-ON Performing Organization Address City/State/ZIP Code Phon e Number [facility]ATORIES - [address] [place], [place] [address] [facility] documented in this encounter Visit Diagnoses Diagnosis Cardiomyopathy Ischemic - Primary Congestive Heart Failure (HCC) Cardiomyopathy Ischemic documented in this encounter Care Teams Html Developer Relationship Specialty Start Date End Date Elsewhere, Pcp PCP - General Family Medicine 10/25/18 documented as of this encounter
--- OUTSIDE RECORDS SUMMARY | 2022-08-27 11:27 | XMS_ITS | Encounter Summary ---
:1945 Author Organization [facility] Address [address] [place] [address] Care Team Providers Name Role Phone Elsewhere, Pcp Primary Care Provider Unavailable Encounter Details Date Type Department Care Team Description 04/17/2019 Surgery RST ROMNiurka WATKINS OR Da Carr Modified Dissection [address] [facility] Lupillo [place]ball[place], [place] [phone] indicated. [phone] Social History Tobacco Use Types Packs/Day Years [...] Sign Reading Time Taken Comments Blood Pressure 119/74 04/17/2019 10:45 AM CDT Pulse 77 04/17/2019 10:45 AM CDT Temperature 36.9 ??C (98.4 ??F) 04/17/2019 10:15 AM CDT Respiratory Rate 14 04/17/2019 10:45 AM CDT Oxygen Saturation 97% 04/17/2019 10:45 AM CDT Inhaled Oxygen Concentration - - Weight 74.4 kg (164 lb 0.4 oz) 04/17/2019 7:03 AM CDT Height 176 cm (5' 9.29) 04/17/2019 7:03 AM CDT Body Mass Index 24.02 04/17/2019 7:03 AM CDT documented in this encounter Discharge Summaries Wilbert Child M.D. - 04/18/2019 6:43 AM CDT DISCHARGE SUMMARY BRIEF OVERVIEW Discharge Provider: Da Carr M.D. Primary Care Providers: Elsewhere, Pcp (General) No address on file Primary Care Provider Phone Number: None Primary Care Provider Fax Number: None Other Providers: None Admission Date: 04/17/2019 Discharge Date: 04/18/2019 PRINCIPAL DIAGNOSIS No Principal Problem: There is no principal problem currently on the Problem List. Please update theProblem List and refresh. SECONDARY DIAGNOSES Active Problems: Malignant Neoplasm Of Thyroid Papillary (HCC) Resolved Problems: * No resolved hospital problems. * Operative Procedures: Scheduled (George), Completed (Comp) or Canceled (Can) Case IDs Date Procedure Surgeon Location Status [id number] 04/17/19 Modified Dissection Neck, proceed as indicated. Da Carr M.D. RST ROMBOR Comp DISCHARGE DISPOSITION Home or Self Care [1] ACTIVE ISSUES REQUIRING FOLLOW UP None OUTPATIENT FOLLOW UP No future appointments. TEST RESULTS PENDING AT DISCHARGE Pending Labs Order Current Status Surgical Pathology, Frozen Lab In process DETAILS OF HOSPITAL STAY REASON FOR ADMISSION Malignant Neoplasm Of Thyroid Papillary (HCC) HOSPITAL COURSE On 04/18/19 the patient was taken to the operating room and underwent the following procedure: Procedure(s): Modified Dissection Neck, proceed as indicated. (Left) Following an uneventful operative course and a brief stay in the post anesthesia care unit, the patient was transferred to the general care floor. Early mobilization after surgery was tolerated well. The postoperative course was uncomplicated. Postoperatively there were no signs or symptoms of hematoma or respiratory distress. When the patient was tolerating the goal diet at discharge, the pain was well controlled on oral medications, bowel and bladder function and ambulatory status had returned to its prior state the patient was discharged from the hospital. Patient should resume plavix on 04/23/2019 CONSULTS ORDERED DURING THIS ADMISSION None CONDITION AT DISCHARGE stable Discharge instructions were provided to the patient and caregiver(s). documented in this encounter Medications at Time [...] 2014 10 mg tablet mouth at bedtime. calcium carbonate Chew 1 tablet 2 0 [...] mg mg total) by mouth tablet daily. rosuvastatin (CRESTOR) 40 Take 1 tablet (40 30 tablet 11 10/201810/15/2019 mg tablet mg total) by mouth daily. zinc gluconate 50 mg Take 80 mg by mouth 0 10/15/2020 tablet daily with breakfast. bisacodyL (DULCOLAX) 5 mg Take by mouth. 0 200905/27/2021 EC tablet nitroglycerin (NITROSTAT) Place 1 tablet 0 201610/15/2019 [...] mg tablet documented as of this encounter Progress Notes Jessi Banuelos R.N. - 04/18/2019 10:56 AM CDT Patient discharged prior to a second midnight. Wilbert Child M.D. - 04/18/2019 8:06 AM CDT Otorhinolaryngology - Head and Neck Surgery Progress Note SUBJECTIVE: Interval History: No events overnight. Pain is well controlled. Tolerating diet and no difficulty urinating. OBJECTIVE: Vitals: 04/17/19 1717 04/17/19 2309 04/18/19 0351 04/18/19 0750 BP: 118/82 114/73 130/82 118/83 BP Location: Left arm Left arm Left arm Right arm Patient Position: Sitting Sitting Sitting Pulse: 82 77 83 87 Resp: 16 16 16 Temp: 36.5 ??C 36.9 ??C 37.8 ??C TempSrc: Oral Oral Oral SpO2: 94% 94% 96% 93% Weight: Height: General: Awake, alert, oriented. Face: symmetric with movement and at rest House-Brackman I, bilateral Eyes: PERRL, EOM Nose: No rhinorrhea or epistaxis. Oral Cavity: Mucous membranes moist. No evidence of oral cavity bleeding. Neck: Supple. Trachea is midline. Neck incision(s) clean, dry and intact. No clinical hematoma or seroma observed. Chest/Pulmonary: Patient has non-labored breathing without cough, wheeze, or stridor. Cranial Nerves grossly intact. Voice is strong. INTAKE/OUTPUT: Intake/Output Last 24 Hours: Intake/Output Summary (Last 24 hours) at 04/18/2019 0807 Last data filed at 04/18/2019 0600 Gross per 24 hour Intake 1885 ml Output 380 ml Net 1505 ml ASSESSMENT/PLAN: 1 Day Post-Op Procedure(s) (LRB): Modified Dissection Neck, proceed as indicated. (Left) #1 Malignant Neoplasm Of Thyroid Papillary (HCC) Patient can be discharged today. Drain removed output 15cc. Follow up in 8 weeks with endocrinology.May resume plavix in 5 days-04/23/19 uKn Segura M.D. - 04/18/2019 1:12 AM CDT Otorhinolaryngology - Head and Neck Surgery Progress Note SUBJECTIVE: Interval History: Patient doing well. No events. Patient denies any shortness of breath, nausea, or vomiting. Reports pain to be controlled and denies and additional concerns at this time. OBJECTIVE: Vitals: 04/17/19 1500 04/17/19 1600 04/17/19 1717 04/17/19 2309 BP: 108/74 105/80 118/82 114/73 BP Location: Left arm Left arm Left arm Patient Position: Sitting Pulse: 82 77 Resp: 16 16 16 16 Temp: 36.5 ??C 36.5 ??C TempSrc: Axillary Oral SpO2: 95% 95% 94% 94% Weight: Height: General: Patient is awake, alert and oriented. Neck: Supple. Trachea is midline. Neck incision clean, dry and intact. No clinical hematoma or seroma observed. Drain in place to high continuous wall suction, serosanguineous, appropriate output. Chest/Pulmonary: Patient breathing comfortably on room air. INTAKE/OUTPUT: Intake/Output Last 24 Hours: Intake/Output Summary (Last 24 hours) at 04/18/2019 0113 Last data filed at 04/17/2019 2040 Gross per 24 hour Intake 1788 ml Output 15 ml Net 1773 ml ASSESSMENT/PLAN: 1 Day Post-Op Procedure(s) (LRB): Modified Dissection Neck, proceed as indicated. (Left) #1 Malignant Neoplasm Of Thyroid Papillary (HCC) - Pain controlled on current medications. Will continue current medication with preference for PO/GTUBE pain meds. - PRN medications for nausea or vomiting. - Continue neck drain to suction as ordered. - Elevate head of bed minimum of 30 degrees overnight. Rebecca Alicea - 04/17/2019 7:00 AM CDT Encounter: AM Admit Situation: Mr. Khanna is here for surgery today. Family: Family is with him. Bridget Tradition: Mr. 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 Plan: Will remain available for spiritual care as needed or requested. [phone] ([place]). documented in this encounter H&P Notes Wilbert Child M.D. - 04/17/2019 6:50 AM CDT Day of Surgery H&P: Indications for Procedure: The patient was examined and the Pre-op diagnosis and planned procedure remain unchanged History of Present Illness: Reviewed and unchanged from the previous documentation - refer to the prior outpatient note for details. Allergies, Medications, Past Medical and Surgical History: Allergies reviewed and updated as necessary. Medical history reviewed and updated as necessary. Physical Exam: General: Alert, oriented, and not in distress Unchanged from prior outpatient exam. HEENT: Unchanged from prior outpatient exam Heart: Refer to anesthesiology physical examination documentation of today's date Lungs: Refer to anesthesiology physical examination documentation of today's date Abdomen: Unchanged from prior outpatient exam. Musculoskeletal/Extremities: Unchanged from prior outpatient exam. Neurological: Unchanged from prior outpatient exam Assessment and Plan: Plan Unchanged documented in this encounter Nursing Notes Orville Conner R.N. - 04/18/2019 9:33 AM CDT Reviewed AVS with patient and . All questions answered. IV removed. Patient discharged HSC with . Orville Conner R.N. - 04/18/2019 9:19 AM CDT Shift Goals: Identify possible barriers to meeting goals/advancing plan of care: None, ready for discharge. End of Shift Summary: Pain controlled, tolerating diet, voiding, incision clean dry and intact. documented in this encounter OR Notes Op Note - Da Carr M.D. - 04/17/2019 10:23 AM CDT PROCEDURE(S) Left select neck dissection, areas II, III, and area VA. Spinal accessory nerve monitoring. SURGEON(S) PRIMARY SURGEON: Da Carr M.D. COLLAR SEPARATOR SURGEONS: Wilbert Child M.D. Madhav Mendoza M.D., M.S. ANESTHESIA TYPE General anesthetic. PRE-OPERATIVE DIAGNOSIS Metastatic papillary thyroid cancer, left neck. History of CLL. POST-OPERATIVE DIAGNOSIS Metastatic papillary thyroid cancer, left neck. History of CLL. FINDINGS See below. COMPLICATIONS None. DESCRIPTION OF PROCEDURE Under satisfactory general endotracheal anesthesia, the patient's left spinal accessory nerve was monitored by placing an electrode in the midportion of the trapezius. The left lower face, neck, and upper chest were prepped and draped in a standard sterile fashion. The patient's prior apron incision in its left mid to upper portion was infiltrated with 1% lidocaine and 1:100,000 epinephrine. An incision was planned to extend further toward the mastoid tip, and this planned incision was also infiltrated with 1% lidocaine and 1:100,000 epinephrine. The skin was incised, and skin flaps were elevated in a subplatysmal plane. The great auricular nerve was identified crossing the sternocleidomastoid muscle. It was preserved. Once skin flaps were elevated, a dissection on both the anterior and posteriorsurface of the sternocleidomastoid muscle provided identification of the spinal accessory nerve. Thespinal accessory nerve was followed posteriorly and inferiorly toward the trapezius muscle. There was generous volume of lymph nodes that filled the neck deep to the sternocleidomastoid muscle superficial to the splenius and trapezius musculature, and posterior to the jugular vein. Dissecting through scar in the junction of areas III and II did gradually gain isolation of the jugular vein and the spinal accessory nerve, as well as the majority of the cervical plexus in the area. Lymph nodes, fat, and adjacent tissue were gradually mobilized out of areas II and IIB and the superior portion of area V. There was a fairly large cystic node that, when dissecting this free from the junction of the fascia next to the jugular vein and the deep cervical fascia, did develop a small opening. The specimen was removed intact, and the wound was irrigated. Hemostasis was ensured with application of bipolar cautery and suture ligature. A 10 flat channel drain was inserted and secured to the skin with a silk suture. The skin was closed with absorbable sutures in the subcutaneous tissues. Glue was used to approximate the skin edge. The patient was then extubated and transferred to the recovery room in stable condition. SPECIMENS Left select neck dissection areas II, III, and VA. DRAINS One 10 flat channel. ESTIMATED BLOOD LOSS 20 cc. TPR: [address] Job ID: [id number] Brief Op Note - Wilbert Child M.D. - 04/17/2019 8:17 AM CDT BRIEF OP NOTE Procedure(s) (LRB): Modified Dissection Neck, proceed as indicated. (Left) Surgeon(s) and Role: * Da Carr M.D. - Primary * Madhav Mendoza M.D., M.S. - Other Cost Estimating Engineer Anesthesia Type: General Pre-Operative Diagnosis: Papillary thyroid carcinoma. Brief Operative Note Details Specimens ID Type Source Tests Collected by Time A : Left select neck dissection areas 2, 3, and 5A Tissue Neck, Left SURGICAL PATHOLOGY, [facility] Da Carr M.D. 04/17/2019 0929 Drains Closed/Suction Drain 1 Left Neck Bulb 10 Fr. (Active) 04/17/19 0933 Neck Placed by External Staff?: Placed by: Wilbert Child Tube Number: 1 Orientation: Left Drain Tube Type: Bulb Size (Fr): 10 Fr. Size (mm): Size (In): Drain [place] Size (mL): 100 mL Number of Sutures Placed: Removal Reason: Estimated Blood Loss No blood loss documented. Implants * No implants in log * Wilbert Child M.D. documented in this encounter Plan of Treatment Upcoming Encounters Date Type Specialty Care Team Description 10/11/2022 Appointment Laboratory Medicine Natasha Mullins APRN, Radha.N.P., M.S.N. [address] [place] [address] [phone] (Joanie velázquez) 10/11/2022 Ancillary Procedure Cardiovascular Disease Natasha Cramer APRN, C.N.P., M.S.N. [address] [place] [phone] (Joanie rk) 10/11/2022 Appointment Cardiovascular Disease Natasha Mullins APRN, C.N.P., M.S.N. [address] [place] [phone] (Joanie velázquez) 10/12/2022 Office Visit Cardiovascular Disease Natasha Mullins APRN, C.N.P., M.S.N. [address] [place] [address] [phone] (Joanie rk) documented as of this encounter Procedures Procedure Name Priority Date/Time Associated Comments Diagnosis PULSE OXIMETRY, Routine 04/17/2019 12:10 PM CONTINUOUS CDT PULSE OXIMETRY, Routine 04/17/2019 12:10 PM CONTINUOUS CDT ADULT OXYGEN THERAPY Routine 04/17/2019 10:15 AM CDT SURGICAL PATHOLOGY, Routine 04/17/2019 9:29 AM Re sults for this [facility] CDT procedure are i n the results section. MODIFIED DISSECTION 04/17/2019 7:19 AM Papillary thyro id [id number] CDT carcinoma. documented in this encounter Results Surgical Pathology, Frozen Lab (04/17/2019 9:29 AM CDT) Component Value Ref Test Analysis Performed Pathologis t Range Method Time At Signature Gross Description A. ??Received fresh labeled left select neck dis section 04/19/2019 areas 2, 3, and 5A is an 11.1 x 7.9 x 2 cm select neck 4:14 PM dissection including levels IIA, IIB, III, and V. ??Multiple CDT lymph nodes are present within the adipose tissue with a 4.1 cm grossly positive group of probably three (3) lymph nodes located in level III. ??Lymph nodes are submitted for frozen and permanent sections. ??Grossed by [facility]. Report Kvng Jane M.D. [phone] 04/19/2019 electronically I verify that I have examined all relevant slides/ma terials 4:14 PM signed by for the specimen(s) and rendered or confirmed the diagnosis. CDT Seen in consultation with: ??Macy Grace M.D. 04/19/2019 4:14 PM CDT Block Summary A Left select neck dissection areas 2,3, and 5A 04/19/2019 A1 Left neck level 2 lymph node 1of2 (A1) 4:14 PM A2 Left neck level 2 lymph node 2of2 (A1) CDT A3 Left neck level 2 lymph nodes 3 (A2) A4 Left neck level 2 lymph node 1of3 (A3) A5 Left neck level 2 lymph node 2of3 (A3) A6 Left neck level 2 lymph node 3of3 (A3) A7 Left neck level 2 lymph node 1of2 (A4) A8 Left neck level 2 lymph node 2of2 (A4) A9 Left neck level 2 lymph node 1 (A5) A10 Left neck level 3 lymph nodes 3 (A6) A11 Left neck level 3 lymph node 1 (A7) A12 Left neck level 3 lymph nodes 2 (A8) A13 Left neck level 3 lymph node 1 (A9) A14 Left neck level 5A lymph nodes 2 (A10) A15 Left neck level 5A lymph node 1 (A11) A16 Left neck level 5A lymph nodes 2 (A12) A17 Left neck level 5A lymph nodes 2 (A13) A18 Left neck level 5A lymph node 1 (A14) Disclaimer This test was developed and its performance characteri [facility] 04/19/2019 determined by [facility] in a manner consistent with CLIA 4:14 PM requirements. This test has not been cleared or approved by CDT the [place].S. Food and Drug Administration. Interpretation FINAL DIAGNOSIS 04/19/2019 A. ??Lymph nodes, left neck areas II, III, and VA, 4:14 PM dissection: ??Multiple (2 of 23) neck lymph nodes are CDT positive for metastatic papillary carcinoma, including lymph nodes at the following levels: ??0 of 7 level II, 2 of 15 level III, and 0 of 1 level V. ??The largest tumor deposit measures 4.1 cm. This final pathology report is based on the gross/macroscopic examination, the frozen section histologic evaluation of the specimen(s), and review of the Hematoxylin and Eosin (H&E) permanent sections. ??Any revised information from the preliminary report is underlined. Diagnosis 2. ??Low grade B-cell lymphoma, most consistent with marginal zone lymphoma. Sections show profiles of lymph nodes with distorted architecture. ??There is an interfollicular population of small lymphocytes with oval nuclei, condensed chromatin, and scant to moderate amounts of pale cytoplasm. Occasional large cells are admixed. ??In some areas this infiltrate takes on a monocytoid appearance. ??Reactive germinal centers are present in the background. Immunoperoxidase stains were performed on paraffin sections of the left neck lymph nodes at [facility] in [place], [place] (CD3, CD5, CD10, CD20, CD23, BCL2, BCL6, Cyclin D1, kappa and lambda immunoglobulin light chains). Stains demonstrate that the abnormal lymphocytes are PA11-myepdrso B-cells that co-express BCL2 and show kappa light chain restriction. ??Background plasma cells appear polytypic. ??The remainder of the stains tested are negative in the neoplastic cells. ??CD10 and BCL6 highlight reactive germinal centers that are appropriately negative for BCL2. CD3 and CD5 highlight reactive T-cells. Specimen (Source) Anatomical Collection Method Collection Time Re ceived Time Location / / Volume Laterality Tissue (Neck, 04/17/2019 9:29 AM Left) CDT Narrative This result has an attachment that is no t available. Da Carr M.D. LAB SURG PATH ORDERABLES Performing Organization Address City/State/ZIP Code Phon e Number [facility] - [address] [place], [place] [address] [facility] documented in this encounter Visit Diagnoses Not on filedocumented in this encounter Admitting Diagnoses Diagnosis Malignant Neoplasm Of Thyroid Papillary (HCC) documented in this encounter Administered Medications Inactive Administered Medications - up to 3 most recent administrations Medication Order MAR Action Action Date Dose Rate Site acetaminophen tablet 1,000 mg Given 04/18/2019 6:28 AM CDT 1,000 mg (TYLENOL) 1,000 mg, oral, Every 6 hours, First dose on Tue04/17/19 at 1215, Orally or per feeding tube. Given 04/17/2019 11:11 PM CDT 1,000 mg Given 04/17/2019 6:07 PM CDT 1,[address] tablet 81 mg Given 04/18/2019 7:51 AM CDT 81 mg 81 mg, oral, Daily, First dose on Tue04/18/19 at 0900, Swallow whole. Do NOT crush, chew, or split tablet. balanced salt solution ophthalmic Given 04/17/2019 9:58 AM CDT 3 0 mL Bilateral irrigation (BSS) As needed, Starting on Tue04/17/19 at 0958, Intra-Op carvedilol tablet 25 mg (COREG) Given 04/18/2019 8:00 AM CDT 25 mg 25 mg, oral, 2 times daily, First dose on Tue04/17/19 at 2100 Given 04/17/2019 8:38 PM CDT 25 mg heparin (porcine) injection 5,000 Units 5,000 Units, subcutaneous, Every 8 hours scheduled, Fi rst dose (after last modification) on Tue04/17/19 at 2200 hydroxypropyl methylcellulose 2.5 % Given 04/17/2019 7:58 AM CDT 1 drop Bilateral ophthalmic demulcent solution (GONAK) As needed, Starting on Tue04/17/19 at 0758, Intra-Op levothyroxine tablet 200 mcg (SYNTHROID, Given 04/18/2019 6:28 A M CDT 200 mcg LEVOTHROID) 200 mcg, oral, Daily, First dose on Tue04/18/19 at 0700 lidocaine-EPINEPHrine 1 %-1:100,000 Given 04/17/2019 8:06 AM CDT 7 mL Left Neck injection (XYLOCAINE W/EPI) As needed, Starting on Tue04/17/19 at 0806, Intra-Op lisinopril tablet 40 mg (PRINIVIL,ZESTRI L) Given 04/18/2019 8:00 AM CDT 40 mg 40 mg, oral, Daily, First dose on Tue04/18/19 at 0900 loratadine tablet 10 mg (CLARITIN) Given 04/18/2019 7:52 AM CDT 10 mg 10 mg, oral, Daily, First dose on Tue04/18/19 at 0900, loratadine 10 mg oral daily was interchanged for cetirizine 10 mg oral daily montelukast tablet 10 mg (SINGULAIR) Given 04/17/2019 8:37 PM CDT 10 mg 10 mg, oral, Daily at bedtime, First dose on Tue04/17/19 at 2100 documented in this encounter Active and Recently Administered Medications Times are shown in CDT. Scheduled Medication Order 04/16/2019 04/17/2019 04/18/2019 acetaminophen injection 1,000 mg (OFIRMEV) (COMPLETED) 1026 (New Bag - Provider: Radha Macedo R.N.) 1,000 mg, intravenous, at 400 mL/hr, Adm inister over 15 Minutes, Once, On Tue04/17/19 at 1030, For 1 dose, PACU & Post-Op, Oral unless RASS less than -1 or nausea/vomiting. Do not use if given in las t 6 hours, Restriction Criteria (Pharmac y will review and approve if criteria met): Unable to take or tolerate medications administered via the enteral route or orally (not just NPO) acetaminophen tablet 1,000 mg (TYLENOL) 1259 (Not Given - Provider: Orville Conner R.N. - Reason: Other - Comment: recieved in PACU)4936 (Given - Provider: Orville Conner R.N.)6594 (Given - Provider: Katty Almanzar R.N.) 5372 (Given - Provider: Katty Almanzar R.N.) 1,000 mg, oral, Every 6 hours, First dos e on Tue04/17/19 at 1215, Orally or per feeding tube. aspirin DR tablet 81 mg 0751 (Gi janet - Provider: Orville Conner R.N.) 81 mg, oral, Daily, First dose on 04/01 at 0900, Swallow whole. Do NOT crush, chew, or split tablet. calcium carbonate tablet 500 mg of calcium (OS-ARLEEN) 1807 (Not Given - Provider: Orville Conner R.N. - Reason: Patient/family refused) 0755 (Not Given - Provider: Orville Conner R.N. - Reason: Patient/family refused) 500 mg of calcium, oral, 3 times daily w ith meals, First dose on Tue04/17/19 at 1700, calcium carbonate 1250 mg (500 mg elemental) was interchanged for calcium carbonate 1500 mg (600 mg elemental) carvedilol tablet 25 mg (COREG) 2037 (Given - Pr ovider: Kristy Yu R.N.) 0800 (Given - Provider: Orville Conner R.N.) 25 mg, oral, 2 times daily, First dose on Tue04/17/19 at 2100 carvedilol tablet 25 mg (COREG) (COMPLETED) 1304 (Given - Provider: Orville Conner R.N.) 25 mg, oral, Once, On Tue04/17/19 at 1300, For 1 dose fluticasone furoate-vilanterol 100-25 mc g/actuation inhaler 1 puff (BREO ELLIPTA DISKUS) 0756 (Not Given - Pr ovider: Orville Conner R.N. - Reason: Patient/family refused) 1 puff, inhalation, Daily (RT), First do se on Tue04/18/19 at 0800, fluticasone/vilanterol diskus 100/25 mcg was interchanged for fluticasone/salmeterol MDI 45/21 mcg heparin (porcine) injection 5,000 Units 2258 (Not Given - Provider: Kristy Yu R.N. - Reason: Patient/family refused) 0629 (Not Given - Provider: Katty Almanzar R.N. - Reason: Patient/family refused) 5,000 Units, subcutaneous, Every 8 hours scheduled, First dose (after last modification) on Tue04/17/19 at 2200 levothyroxine tablet 200 mcg (SYNTHROID, LEVOTHROID) 0628 (Given - Provider: Katty Almanzar R.N.) 200 mcg, oral, Daily, First dose on Tue04/18/19 at 0700 lisinopril tablet 40 mg (PRINIVIL,ZESTRIL) 0800 (Given - Provider: Orville Conner R.N.) 40 mg, oral, Daily, First dose on Tue04/18/19 at 0900 loratadine tablet 10 mg (CLARITIN) 0752 (Given - Provider: Orville Conner R.N.) 10 mg, oral, Daily, First dose on 04/01 at 0900, loratadine 10 mg oral daily was interchanged for cetirizine 10 mg oral daily montelukast tablet 10 mg (SINGULAIR) 203 7 (Given - Provider: Kristy Yu R.N.) 10 mg, oral, Daily at bedtime, First dose on Tue04/17/19 at 2100 rosuvastatin tablet 40 mg (CRESTOR) 0757 (Not Given - Provider: Orville Conner R.N. - Reason: Patient/family refused) 40 mg, oral, Daily, First dose on Tue04/18/19 at 0900 sennosides-docusate sodium 8.6-50 mg per tablet 1 tablet (SE NOKOT-S) 2040 (Not Given - Provider: Kristy Yu R.N. - Reason: Patient/family refused) 0759 (Not Given - Provider: Orville Conner R.N. - Reason: Patient/family refused) 1 tablet, oral, 2 times daily, First dos e on Tue04/17/19 at 2100, Hold for diarrhea. vancomycin 1000 mg in NaCl 0.9% 250 mL (VANCOCIN) IVPB (COMP LETED) 0748 (Given - Provider: Maggie Abad, TRANSPORTATION ENGINEER, SERVER SERVICE ASSISTANT) 1,000 mg (rounded from 1,084.5 mg = 15 m g/kg ? 72.3 kg Adjusted weight), intravenous, at 260 mL/hr, Administer over 60 Minutes, Once, On Tue04/17/19 at 0730, For 1 dose, Intra-Op, Preoperatively withi n 2 hours prior to surgical incision premi x bag, Drug Monitoring Program: Pharmacist to adjust medication dosing based on indication and drug clearance factors., Indications: Prophylaxis, surgical vancomycin 1000 mg in NaCl 0.9% 250 mL (VANCOCIN) IVPB (COMP LETED) 2039 (New Bag - Provider: Kristy Yu R.N.) 1,000 mg (rounded from 1,089 mg = 15 mg/ kg ? 72.6 kg Adjusted weight), intravenous, at 260 mL/hr, Administer over 60 Minutes, Every 12 hours, First dose on Tue04/17/19 at 2100, For 1 dose, Start within 12 hours of last IV dose. premix bag, Dr ug Monitoring Program: Pharmacist to adjust medication dosing based on indication and drug clearance factors., Indications: Prophylaxis, surgical zinc gluconate tablet 50 mg 0801 (Not Given - Provider: Orville Conner RDeloris. - Reason: Patient/family refused) 50 mg, oral, Daily with breakfast, First dose on Tue04/18/19 at 0800, Doses listed in zinc gluconate. Each 50 mg of zinc gluconate contains 7 mg of elemental zinc. Continuous Medication Order 04/16/2019 04/17/2019 04/18/2019 lactated ringers (CANCELED) 1015 (Contin ued from OR - Provider: Radha Macedo R.N.)1149 (Continue to Inpatient Floor - Provider: Mamie Garcia RJackson)1300 (Stopped - Provider: Orville Conner RJackson) 50 mL/hr, intravenous, Continuous, Start ing on Tue04/17/19 at 1030, PACU & Post-Op PRN Medication Order 04/16/2019 04/17/2019 04/18/2019 balanced salt solution ophthalmic irrigation (BSS) (CANCELED ) 0958 (Given - Provider: Wilbert Child M.D. - Comment: eyes) As needed, Starting on Tue04/17/19 at 0958, Intra-Op hydroxypropyl methylcellulose 2.5 % opht halmic demulcent solution (GONAK) (CANCELED) 0758 (Given - Provider: Gissell Raomn - Comment: topical) As needed, Starting on Tue04/17/19 at 0758, Intra-Op ibuprofen tablet 400 mg (ADVIL,MOTRIN) 400 mg, oral, Every 6 hours PRN, mild pa in or score 1-3 of 10, Starting Tue04/17/19 at 1210, Take with food or milk if GI disturbances occur with use. lidocaine-EPINEPHrine 1 %-1:100,000 injection (XYLOCAINE W/E PI) (CANCELED) 0806 (Given - Provider: Wilbert Child M.D.) As needed, Starting on Tue04/17/19 at 0806, Intra-Op naloxone injection 0.2 mg (NARCAN) 0.2 mg, intravenous, Once as needed, res piratory depression, Starting Tue04/17/19 at 1210, For 1 dose, For respiratory rate less than 8 breaths/min. Do not exceed 0.4 mg total dose. Notify service if given. May repeat as directed by prescriber. ondansetron (PF) injection 4 mg (ZOFRAN) 4 mg, intravenous, Every 6 hours PRN, na usea, vomiting, Starting Tue04/17/19 at 1210, For 48 hours, Reassess for nausea or vomiting after at least 10 minutes. If nausea or vomiting persists administer ne xt ordered antiemetic medications (order for antiemetic medication administration ondansetron then droperidol then promethazine). oxyCODONE IR tablet 5 mg (ROXICODONE) 5 mg, oral, Every 4 hours PRN, moderate pain or score 4-6 of 10, Starting Tue04/17/19 at 1210 documented in this encounter Care Teams Hr Manager Relationship Specialty Start Date End Date Elsewhere, Pcp PCP - General Family Medicine 10/25/18 documented as of this encounter
--- OUTSIDE RECORDS SUMMARY | 2022-08-27 11:27 | XMS_ITS | Encounter Summary ---
:1945 Author Organization [facility] Address [address] [place] [id number] Care Team Providers Name Role Phone Elsewhere, Pcp Primary Care Provider Unavailable Reason for Referral Outpatient (Routine) - Closed Specialty Diagnoses / Procedures Referred By Contact Refer red To Contact Otorhinolaryngology Wilbert Child M.D. [address] [address] Referral ID Status Reason Start Date Expiration Date Visits Requ ested Visits Authorized [id number] Closed 03/28/2019 03/27/2020 1 1 Scheduling Instructions Listing visit with dr benedict Encounter Details Date Type Department Care Team Description 03/28/2019 Orders Only Department of Wilbert Child Otorhinolaryngology in [place] [address] [phone] Social History Tobacco Use Types Packs/Day [...] 10/15/2019 organizations such as tenriism groups, unions, fraternal or athletic groups, or [...] Medicine Natasha Mullins APRN, C.N.PCarmine, M.S.N. [address] [place] [address] [phone] (Wo rk) 10/11/2022 Ancillary Procedure Cardiovascular Disease Natasha Cramer APRN, C.N.Jalen, M.S.N. [address] [place] [address] [phone] (Wo rk) 10/11/2022 Appointment Cardiovascular Disease Natasha Mullins APRN, C.N.Franklin., M.S.N. [address] [place] [address] [phone] (Wo rk) 10/12/2022 Office Visit Cardiovascular Disease Natasha Mullins APRN, C.N.P., M.S.N. [address] [place] [address] [phone] (Wo rk) Scheduled Referrals Name Type Priority Associated Order Schedule Diagnoses Otorhinolaryngology office Outpatient Routine E xpected: visit (clinic) Referral 04/16/2019 (Approximate), Expires: 03/28/2022 documented as of this encounter Visit Diagnoses Not on filedocumented in this encounter Care Teams House Worker Relationship Specialty Start Date End Date Elsewhere, Pcp PCP - General Family Medicine 10/25/18 documented as of this encounter
--- OUTSIDE RECORDS SUMMARY | 2022-08-27 11:27 | XMS_ITS | Encounter Summary ---
:1945 Author Organization [facility] Address [address] [place] [address] Care Team Providers Name Role Phone Elsewhere, Pcp Primary Care Provider Unavailable Reason for Visit Reason Onset Date Comments schedule surgery 03/28/2019 Encounter Details Date Type Department Care Team Description 03/28/2019 Clinical Department of Lilly schedule surge ry Communication Otorhinolaryngology Da marquez [place], [place] [address] [place] [phone] Social History Tobacco Use Types Packs/Day [...] or relatives? How often do you attend jehovah's witness or More than 4 times per year 10/15/2019 mormonism services? Do you belong to any clubs or Yes 10/15/2019 organizations such as jehovah's witness groups, unions, fraternal or athletic groups, or [...] this encounter Miscellaneous Notes Telephone Encounter - Wilbert Child M.D. - 03/28/2019 9:24 AM CDT I created a listing and ordered listing visit Telephone Encounter - Radha Cochran V. - 03/28/2019 9:09 AM CDT Mr. Khanna called. He would like to schedule surgery for April 17, 2019. Please order any testing and start listing Pt phone # [phone] Thank you Letty documented in this encounter Plan of Treatment Upcoming Encounters Date Type Specialty Care Team Description 10/11/2022 Appointment Laboratory Medicine Natasha Mullins APRN, C.N.P., M.S.N. [address] [place] [address] [phone] (Wo rk) 10/11/2022 Ancillary Procedure Cardiovascular Disease Natasha Cramer APRN, Radha.N.P., M.S.N. [address] [place] [phone] (Wo rk) 10/11/2022 Appointment Cardiovascular Disease Natasha Mullins APRN, C.N.P., M.S.N. [address] [place] [phone] (Wo rk) 10/12/2022 Office Visit Cardiovascular Disease Natasha Mullins APRN, C.N.P., M.S.N. [address] [place] [phone] (Wo rk) documented as of this encounter Visit Diagnoses Not on filedocumented in this encounter Care Teams Logistics Analytics Manager Relationship Specialty Start Date End Date Elsewhere, Pcp PCP - General Family Medicine 10/25/18 documented as of this encounter
--- OUTSIDE RECORDS SUMMARY | 2022-08-27 11:27 | XMS_ITS | Encounter Summary ---
:1945 Author Organization [facility] Address [address] [place] [address] Care Team Providers Name Role Phone Elsewhere, Pcp Primary Care Provider Unavailable Reason for Visit Outpatient (Routine) - Closed Specialty Diagnoses / Procedures Referred By Contact Refer red To Contact Cardiovascular Disease Lauren Mullins APRN, C.N.P., M.S.N. [address] [place] [address] Referral ID Status Reason Start Date Expiration Date Visits Requ ested Visits Authorized [id number] Closed 03/20/2019 03/19/2020 1 1 Encounter Details Date Type Department Care Team Description 03/22/2019 Office Visit Department of Chai Fagan, Cardiomyop athgenaro Ischemic (Primary Dx); Cardiovascular Medicine VY Kaur, Cor onary Artery Disease (Unspecified); in [facility] milan Anderson, M.S.N. Chronic Systolic (Congestive) Heart Fail ure (HCC); 200 [facility] 200 [facility] Malignant Neoplasm Of Thyroid (HCC) [place] [phone] Social History Tobacco Use Types Packs/Day Years [...] or relatives? How often do you attend sabianism or More than 4 times per year 10/15/2019 spiritism services? Do you belong to any clubs or Yes 10/15/2019 organizations such as sabianism groups, unions, fraternal or athletic groups, or [...] Sign Reading Time Taken Comments Blood Pressure 97/68 03/22/2019 3:11 PM CDT Pulse 80 03/22/2019 3:11 PM CDT Temperature 36.6 ??C (97.9 ??F) 03/22/2019 3:09 PM CDT Respiratory Rate - - Oxygen Saturation - - Inhaled Oxygen Concentration - - Weight 75.4 kg (166 lb 3.6 oz) 03/22/2019 3:09 PM CDT Height 174.8 cm (5' 8.82) 03/22/2019 3:09 PM CDT Body Mass Index 24.68 03/22/2019 3:09 PM CDT documented in this encounter Progress Notes Natasha Mullins APRN, C.N.P., M.S.N. - 03/22/2019 3:00 PM CDT Heart failure Established Note Referring Provider: Natasha Mullins APRN, C.N.P., M.S.N. 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 ??Ejection fraction was 30%to 35% December of 2015 by stress echocardiogram; negative for ischemia. Ejection fraction increasedto 50% October 2018. I last met with the patient on October 25, 2018. He was [employer] functional classone and euvolemic. LV ejection fraction was 50%. Received word from Dr. 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 She requested cardiac evaluation to assure he was optimized before proceeding to surgery. The patient presents alone. He can walk 1/2 mile without dyspnea. Has stable slight dyspnea climbingone set of steps. Denies chest discomfort, palpitations, edema, dizziness or lightheadedness, paroxysmal nocturnal dyspnea, or orthopnea, syncopal episodes or falls. There have been no changes to his medications other than he has been asked to hold his Plavix in preparation for surgery. REVIEW OF SYSTEMS The following portions of [...] ??EF 40% to 45%, October 2017. D. EF 50% October 2018. 3. ??Hyperlipidemia. 4. ??Asthma. 5. Thyroid cancer; Status post parathyroid resection, subsequent iatrogenic hypothyroidism. 6. ??History of rotator cuff tear with chronic right shoulder discomfort. OBJECTIVE BP 97/68 (BP Location: Right arm, Patient Position: Standing, Cuff Size: Regular) Pulse 80 Temp 36.6 ??C (Tympanic) Ht 174.8 cm Wt 75.4 kg BMI 24.68 kg/m?? Wt 75.4 kg Ht 174.8 cm Body mass index is 24.68 kg/m??. Body surface area is 1.91 meters squared. ALLERGIES Allergies Allergen Reactions ??? Clindamycin Other (see comments) Unknown. ??? Iodinated Contrast- Oral And Iv Dye Itching Possible adverse reaction to iodinated contrast given at [facility] in 2006. Visi [address] scan on 12/12/13. No reaction noted. ??? Mold Other (see comments) Unknown. ??? Penicillins Other (see comments) Unknown. ??? Pneumococcal Vaccine Other (see comments) Headache and body ache Headache and body ache ??? Shellfish Containing Products Nausea And Vomiting HOME MEDICATIONS Current Medications: ??? albuterol (PROVENTIL HFA,VENTOLIN HFA) 90 mcg/actuation inhaler, Inhale 1-2 puffs as needed. ??? aspirin 81 mg chewable tablet, Chew 1 tablet daily. Take for life. ??? calcium carbonate (OS-ARLEEN) 1,250 mg (500 mg calcium) chewable tablet, Chew 1 tablet 2 (two) times a day as needed. Heartburn. ??? carvedilol (COREG) 25 mg tablet, Take 1 tablet (25 mg total) by mouth 2 (two) times a day. ??? cetirizine (ZyrTEC) 10 mg chewable tablet, Chew 1 tablet daily. ??? cholecalciferol (VITAMIN D3) 1,000 Unit tablet, Take 1 tablet by mouth daily. ??? clopidogrel (PLAVIX) 75 mg tablet, Take 1 tablet (75 mg total) by mouth daily. ??? fluticasone (FLONASE) 50 mcg/actuation nasal spray, Administer into affected nostril(s) daily. ??? fluticasone-salmeterol (ADVAIR DISKUS) 250-50 mcg/dose diskus inhaler, Inhale 1 puff daily. ??? levothyroxine (SYNTHROID, LEVOTHROID) 200 mcg tablet, Take 1 tablet by mouth daily. ??? lisinopril (PRINIVIL,ZESTRIL) 40 [...] pain continue. Do not use with Viagra/sildenafil. ??? rosuvastatin (CRESTOR) 40 mg tablet, Take 1 tablet (40 mg total) by mouth daily. PHYSICAL EXAMINATION General: Pleasant gentleman in no apparent acute distress Vessels: Jugular veins are at 5 cm of water at a 30 degree angle. No hepatic jugular reflux. Lungs: Clear to auscultation without rales, rhonchi, or wheeze. Heart:: Regular rate and rhythm with normal S1 and S2. No S3, S4, thrill or heave appreciated. Soft 2/6 systolic murmur noted at the left sternal border. Abdomen: Soft, nontender, without palpable hepatomegaly. Extremities: No lower extremity edema or clubbing. Skin: Warm, dry, without diaphoresis or cyanosis. Musculoskeletal: Able to get on off the exam table without assistance. Neuro: Alert and able to give an adequate history. ASSESSMENT / PLAN #1 Cardiomyopathy Ischemic Patient's LV ejection fraction increased to 50% in October. His symptoms are stable. Recommend his carvedilol and lisinopril be maintained samy and postop. #2 Coronary Artery Disease (Unspecified) Asymptomatic, able to complete four Mets of activity. Does not require further cardiac testing or optimization before proceeding to surgery. He will be holding his Plavix in anticipation of surgery. Itshould be restarted as soon as safe to do so afterwards. #3 Chronic Systolic (Congestive) Heart Failure (HCC) Does not require diuretic. But recommend judicious use of fluid during surgery and should be monitored closely for fluid retention samy and postop. #4 Malignant Neoplasm Of Thyroid (HCC) The patient's resection for malignancy is not elective and needs to be completed as soon as possible. I advised the patient that I cannot reduce his cardiac risk to zero. Using the revised cardiac riskcalculator, patient gets two points, one for coronary artery disease, one for heart failure. The places him at a 10% risk of acute myocardial infarction, cardiac arrest or within 30 days of proced ure. Using the [place] calculator he has is 0.1% chance of samy op [place] or cardiac arrest during his procedure. He verbalized understanding of these risks and wishes to proceed with surgery. I contacted Dr. Wu. #5 Chronic hyponatremia Sodium is slightly low at 132. This is chronic, but should be monitored. Natasha Fagan APRN, C.N.P., M.S.N. 03/22/19 documented in this encounter Plan of Treatment Upcoming Encounters Date Type Specialty Care Team Description 10/11/2022 Appointment Laboratory Medicine Natasha Mullins APRN, C.N.P., M.S.N. [address] [place] [address] [phone] (Wo rk) 10/11/2022 Ancillary Procedure Cardiovascular Disease Natasha Cramer APRN, C.N.P., M.S.N. [address] [place] [address] [phone] (Wo rk) 10/11/2022 Appointment Cardiovascular Disease Natasha Mullins APRN, Radha.N.Franklin., M.S.N. [address] [place] [phone] (Joanie rk) 10/12/2022 Office Visit Cardiovascular Disease Natasha Mullins APRN, Radha.N.P., M.S.N. [address] [place] [phone] (Joanie rk) documented as of this encounter Visit Diagnoses Diagnosis Cardiomyopathy Ischemic - Primary Coronary Artery Disease (Unspecified) Chronic Systolic (Congestive) Heart Fail ure (HCC) Malignant Neoplasm Of Thyroid (HCC) documented in this encounter Care Teams Heater Tender Relationship Specialty Start Date End Date Elsewhere, Pcp PCP - General Family Medicine 10/25/18 documented as of this encounter
--- OUTSIDE RECORDS SUMMARY | 2022-08-27 11:27 | XMS_ITS | Encounter Summary ---
:1945 Author Organization [facility] Address [address] [place] [address] Care Team Providers Name Role Phone Elsewhere, Pcp Primary Care Provider Unavailable Encounter Details Date Type Department Care Team Description 04/17/2019 - Hospital Encounter [facility], Malignant Neoplasm 04/18/2019 Hospital, [facility] M.D[facility] Of Thyroid [facility], (HCC) (Primary Dx) [facility], Fourth Floor [address] [place] [address] Social History Tobacco Use Types Packs/Day [...] or relatives? How often do you attend synagogue or More than 4 times per year 10/15/2019 taoist services? Do you belong to any clubs or Yes 10/15/2019 organizations such as synagogue groups, unions, fraternal or athletic groups, or [...] Sign Reading Time Taken Comments Blood Pressure 118/83 04/18/2019 7:50 AM CDT Pulse 87 04/18/2019 7:50 AM CDT Temperature 37.8 ??C (100 ??F) 04/18/2019 7:50 AM CDT Respiratory Rate 16 04/18/2019 3:51 AM CDT Oxygen Saturation 93% 04/18/2019 7:50 AM CDT Inhaled Oxygen Concentration - - [...] Case IDs Date Procedure Surgeon Location Status [id number] 04/17/19 Modified Dissection Neck, proceed as indicated. [...] with endocrinology.May resume plavix in 5 days-04/23/19 Kun Segura M.D. - 04/18/2019 1:12 AM CDT [...] is with him. Bridget Tradition: Mr. Khanna's taoist affiliation is Free Christianity. Director Biomedical Engineering Services Information: The patient was provided with information about how to request group art supervisor support, the type of support we offer, and that chaplains are available 06/06. Plan: Will remain available for spiritual care as needed or requested. [facility] [phone] ([place]). documented in this encounter H&P Notes Wiblert Child M.D. - 04/17/2019 6:50 AM CDT [...] monitoring. SURGEON(S) PRIMARY SURGEON: Da Carr M.D. PROP ATTENDANT SURGEONS: Wilbert Child M.D. Madhav Mendoza M.D., [...] cc. TPR: [address] Job ID: [id number] Brief Op Note - Wilbert Child M.D. - 04/17/2019 8:17 AM CDT BRIEF OP NOTE Procedure(s) (LRB): Modified Dissection Neck, proceed as indicated. (Left) Surgeon(s) and Role: * Da Carr M.D. - Primary * Madhav Mendoza M.D., M.S. - Other Sterilization Tech Anesthesia Type: General Pre-Operative Diagnosis: Papillary thyroid carcinoma. Brief Operative Note Details Specimens ID Type Source Tests Collected by Time A : Left select neck dissection areas 2, 3, and 5A Tissue Neck, Left SURGICAL PATHOLOGY, [facility] Da Carr M.D. 04/17/2019 0929 Drains Closed/Suction Drain 1 Left Neck Bulb 10 Fr. (Active) 04/17/19 0933 Neck Placed by External Staff?: Placed by: Wlibert Child Tube Number: 1 Orientation: Left Drain Tube Type: Bulb Size (Fr): 10 Fr. Size (mm): Size (In): Drain Maria Stein Size (mL): 100 mL Number of Sutures Placed: Removal Reason: Estimated Blood Loss No blood loss documented. Implants * No implants in log * Wilbert Child M.D. documented in this encounter Plan of Treatment Upcoming Encounters Date Type Specialty Care Team Description 10/11/2022 Appointment Laboratory Medicine Natasha Mullins APRN, C.N.P., M.S.N. [address] [place] [address] [phone] (Joanie velázquez) 10/11/2022 Ancillary Procedure Cardiovascular Disease Natasha Cramer APRN, C.N.P., M.S.N. [address] [place] [phone] (Joanie velázquez) 10/11/2022 Appointment Cardiovascular Disease Natasha Mullins APRN, C.N.P., M.S.N. [address] [place] [phone] (Joanie velázquez) 10/12/2022 Office Visit Cardiovascular Disease Natasha Mullins APRN, C.N.P., M.S.N. [address] [place] [phone] (Joanie velázquez) documented as of this encounter [...] for frozen and permanent sections. ??Grossed by [facility]. Report Kvng Jane M.D. [phone] 04/19/2019 electronically I verify that I have [...] test was developed and its performance characteri [facility] 04/19/2019 determined by [facility] in a manner consistent with CLIA 4:14 [...] of the left neck lymph nodes at [facility] in [place], [place] (CD3, CD5, CD10, CD20, CD23, BCL2, BCL6, Cyclin D1, kappa and lambda immunoglobulin light chains). Stains demonstrate that the abnormal lymphocytes are VB25-opcwojiw B-cells that co-express BCL2 and show kappa [...] Address City/State/ZIP Code Phon e Number [facility] - [address] [place], [place] [address] [facility] documented in this encounter Visit Diagnoses Diagnosis Malignant Neoplasm Of Thyroid Papillary (HCC) - Primary documented in this encounter Admitting Diagnoses Diagnosis Malignant Neoplasm Of Thyroid Papillary (HCC) documented in this encounter Administered Medications Inactive Administered Medications - up to 3 most recent administrations Medication Order MAR Action Action Date Dose Rate Site acetaminophen injection 1,000 New Bag 04/17/2019 10:26 AM 1,000 mg 400 mL/hr mg (OFIRMEV) CDT 1,000 mg, intravenous, at 400 mL/hr, Administer over 15 Minutes, Once, On Tue04/17/19 at 1030, For 1 dose, PACU & Post-Op, Oral unless RASS less than -1 or nausea/vomiting. Do not use if given in last 6 hours, Restriction Criteria (Pharmacy will review and approve if criteria met): Unable to take or tolerate medications administered via the enteral route or orally (not just NPO) acetaminophen tablet 1,000 mg (TYLENOL) Given 04/18/2019 6:28 AM CDT 1,000 mg 1,000 mg, oral, Every [...] Do NOT crush, chew, or split tablet. carvedilol tablet 25 mg (COREG) Given 04/18/2019 8:00 AM CDT 25 mg 25 mg, oral, 2 times daily, First dose on Tue04/17/19 at 2100 Given 04/17/2019 8:38 PM CDT 25 mg carvedilol tablet 25 mg (COREG) Given 04/17/2019 1:04 PM CDT 25 mg 25 mg, oral, Once, On Tue04/17/19 at 1300, For 1 dose heparin (porcine) injection 5,000 Units 5,000 Units, subcutaneous, Every 8 hours scheduled, Fi rst dose (after last modification) on Tue04/17/19 at 2200 lactated ringers Continued from OR 04/17/2019 10:15 AM 50 mL/hr 50 mL/hr 50 mL/hr, intravenous, CDT Continuous, Starting on Tue04/17/19 at 1030, PACU & Post-Op levothyroxine tablet 200 mcg (SYNTHROID, Given 04/18/2019 6:28 A M CDT 200 mcg LEVOTHROID) 200 mcg, oral, Daily, First dose on Tue04/18/19 at 0700 lisinopril tablet 40 mg (PRINIVIL,ZESTRI L) Given [...] bedtime, First dose on Tue04/17/19 at 2100 vancomycin 1000 mg in NaCl 0.9% New Bag 04/17/2019 8:40 PM CDT 1,000 mg 260 mL/hr 250 mL (VANCOCIN) IVPB 1,000 mg (rounded from 1,089 mg = 15 mg/kg ? 72.6 kg Adjusted weight), intravenous, at 260 mL/hr, Administer over 60 Minutes, Every 12 hours, First dose on Tue04/17/19 at 2100, For 1 dose, Start within 12 hours of last IV dose. premix bag, Drug Monitoring Program: Pharmacist to adjust medication dosing based on indication and drug clearance factors., Indications: Prophylaxis, surgical documented in this encounter Active and Recently [...] - Reason: Other - Comment: recieved in PACU)1807 (Given - Provider: Orville Conner R.N.)2311 (Given - Provider: Katty Almanzar R.N.) 0628 (Given - Provider: Katty Almanzar R.N.) 1,000 mg, oral, Every 6 hours, First dos e on Tue04/17/19 at 1215, Orally or per feeding tube. aspirin DR tablet 81 mg 0751 (Gi janet - Provider: Octavio SullivanNCarmine) 81 mg, oral, Daily, First dose on 04/01 at 0900, Swallow whole. Do NOT crush, chew, or split tablet. calcium carbonate tablet 500 mg of calcium (OS-ARLEEN) 180 (Not Given - Provider: Orville Conner R.N. [...] at 2100 rosuvastatin tablet 40 mg (CRESTOR) 756 (Not Given - Provider: Orville Conner R.N. - Reason: Patient/family refused) 40 mg, oral, Daily, First dose on Tue04/18/19 at 0900 sennosides-docusate sodium 8.6-50 mg per tablet 1 tablet (SE NOKOT-S) 2040 (Not Given - Provider: Kristy Yu R.N. - Reason: Patient/family refused) 075 (Not Given - Provider: Orville Conner R.N. - Reason: Patient/family refused) 1 tablet, oral, 2 times daily, First dos e on Tue04/17/19 at 2100, Hold for diarrhea. vancomycin 1000 mg in NaCl 0.9% 250 mL (VANCOCIN) IVPB (COMP LETED) 747 (Given - Provider: Maggie Abad APRN, [facility]) 1,000 mg (rounded from 1,084.5 mg = [...] 12 hours of last IV dose. premix Dr al cruz Monitoring Program: Pharmacist to adjust medication dosing based on indication and drug clearance factors., Indications: Prophylaxis, surgical zinc gluconate tablet 50 mg 08 (Not Given - Provider: Orville Conner R.N. - Reason: Patient/family refused) 50 mg, oral, Daily with breakfast, First dose on Tue04/18/19 at 0800, Doses listed in zinc gluconate. Each 50 mg of zinc gluconate contains 7 mg of elemental zinc. Continuous Medication Order 04/16/2019 04/17/2019 04/18/2019 lactated ringers (CANCELED) 1015 (Contin ued from OR - Provider: Radha Macedo R.N.)1149 (Continue to Inpatient Floor - Provider: Mamie Garcia R.N.)1300 (Stopped - Provider: Orville Conner R.N.) 50 mL/hr, intravenous, Continuous, Start ing on Tue04/17/19 at 1030, PACU & Post-Op PRN Medication Order 04/16/2019 04/17/2019 04/18/2019 balanced salt solution ophthalmic irrigation (BSS) (CANCELED ) 0958 (Given - Provider: Wilbert Child M.D. - Comment: eyes) As needed, Starting on Tue04/17/19 at 0958, Intra-Op hydroxypropyl methylcellulose 2.5 % opht halmic demulcent solution (GONAK) (CANCELED) 0758 (Given - Provider: Gissell Ramon - Comment: topical) As needed, Starting on [...] 6 hours PRN, na usea, vomiting, Starting 04/17/19 at 1210, For 48 hours, Reassess for nausea or vomiting after at least 10 minutes. If nausea or vomiting persists administer ne xt ordered antiemetic medications (order for antiemetic medication administration ondansetron then droperidol then promethazine). oxyCODONE IR tablet 5 mg (ROXICODONE) 5 mg, oral, Every 4 hours PRN, moderate pain or score 4-6 of 10, Starting e 04/17/19 at 1210 documented in this encounter Care Teams Stitcher Utility Relationship Specialty Start Date End Date Elsewhere, Pcp PCP - General Family Medicine 10/25/18 documented as of this encounter
--- OUTSIDE RECORDS SUMMARY | 2022-08-27 11:27 | XMS_ITS | Encounter Summary ---
:1945 Author Organization [facility] Address [address] [place] [address] Care Team Providers Name Role Phone Elsewhere, Pcp Primary Care Provider Unavailable Encounter Details Date Type Department Care Team Description 03/20/2019 Hospital Encounter Department of March, Neha Brown Neoplasm Radiology, Jethro Wesley Of Thyroid ([facility]) Building, in [place], [place] [address] [place] [address] Social History Tobacco Use Types Packs/Day Years [...] More than 4 times per year 10/15/2019 yazidism services? Do you belong to any clubs [...] Sign Reading Time Taken Comments Blood Pressure 156/89 03/20/2019 6:00 PM CDT Pulse 68 03/20/2019 6:00 PM CDT Temperature - - Respiratory Rate - - Oxygen Saturation 100% 03/20/2019 6:00 PM CDT Inhaled Oxygen Concentration - - Weight 76.2 kg (168 lb) 03/20/2019 4:48 PM CDT Height 176 cm (5' 9.29) 03/20/2019 4:48 PM CDT Body Mass Index 24.6 03/20/2019 4:48 PM CDT documented in this encounter Medications at Time [...] mg tablet documented as of this encounter Nursing Notes Karli Arevalo R.N. - 03/20/2019 6:29 PM CDT Patient was observed post CT scan with contrast due to previous reaction of scalp itching. During observation patient developed rigors which improved with warm blankets. Vitals were taken with fluctuation in blood pressures (see vitals). Patient is on blood pressure medication and had not taken evening dose yet. Per Dr. Howe, patient was dismissed due to no shortness of breath, chest pain, or signsof allergy. lmh/lml Gallo Pop R.N. - 03/20/2019 5:06 PM CDT Patient had a previous reaction to Iodinated contrast in 2006 with itching on top of his head ( NO hives or difficulty breathing) . Patient had a Ct scan on 2013 with no reaction noted. Per Shyam ok to continues with CT contrast due that patient had itching and had a Ct on 2013 without any reaction.We will keep patient for 15 mint after scan.lm documented in this encounter Plan of Treatment Upcoming Encounters Date Type Specialty Care Team Description 10/11/2022 Appointment Laboratory Medicine Natasha Mullins APRN, C.N.P., M.S.N. [address] [place] [address] [phone] (Wo rk) 10/11/2022 Ancillary Procedure Cardiovascular Disease Natasha Cramer APRN, Radha.N.P., M.S.N. [address] [place] [address] [phone] (Wo rk) 10/11/2022 Appointment Cardiovascular Disease Natasha Mullins APRN, Radha.N.Franklin., M.S.N. [address] [place] [address] [phone] (Wo rk) 10/12/2022 Office Visit Cardiovascular Disease Natasha Mullins APRN, Radha.N.Franklin., M.S.N. [address] [place] [phone] (Joanie rk) documented as of this encounter Procedures Procedure Name Priority Date/Time Associated Comments Diagnosis CT NECK SOFT RAD - Routine 03/20/2019 5:24 Malignant Results for this TISSUE WITH IV (most inpatients PM CDT Neoplasm Of procedure are in CONTRAST and all Thyroid (HCC) the results outpatients) section. documented in this encounter Results CT Neck Soft Tissue with IV Contrast (03/20/2019 5:24 PM CDT) Anatomical Region Laterality Modality Neck, Neuroradiology RST LOS, [facility], N/A Computed Tomography Neuroradiology FLA [facility] Specimen (Source) Anatomical Collection Method Collection Time Re ceived Time Location / / Volume Laterality 03/21/2019 9:26 AM CDT Impressions 03/21/2019 9:41 AM CDT IMPRESSION: 1. Large conglomerate, partially cystic lymph node mass at left level II, likely representing metastatic papillary thyroi d carcinoma. 2. Numerous prominent lymph nodes throug hout the neck, most prominent on the left, are indeterminate and could be rel ated to known lymphoma. Narrative 03/21/2019 9:41 AM CDT EXAM: CT NECK SOFT TISSUE WITH IV CONTRAST COMPARISON: None. FINDINGS: Postoperative changes of thyro idectomy and central compartment lymph node dissection in 2014 and revision rivera tral compartment surgery and neck dissection in 2014. Additional treatment with radioactive iodine. FNA biopsy on 03/07/2019 of a left neck node showed pa pillary thyroid carcinoma, and a smaller node on the right showed B-cell lymphoma . Heterogeneous, partially cystic conglome rate lymph node mass in the left neck at level II measures up to 3.9 cm AP by 1.8 cm TR by 4.7 cm SI dimensions. This contacts the posterior aspect of the lef t internal jugular vein, the paraspinal musculature, and the left sternocleidoma stoid muscle. Additional enlarged noncystic lymph nodes throughout the lef t neck measuring up to 2.4 cm at left level II (209). Multiple less prominen t, noncystic lymph nodes throughout the right side of the neck. Mildly enlarged bilateral retropharyngeal lymph nodes, nonspecific. Calcified plaque at the bilateral caroti d bifurcations, with mild narrowing on the right. Moderate mucosal thickening a nd fluid in the paranasal sinuses. Postsurgical changes both globes. Mild d egenerative changes in the cervical spine. Procedure Note Criselda Keen M.D. - 03/21/2019Forma tting of this note might be different from the original. EXAM: CT NECK SOFT TISSUE WITH IV CONTRA ST COMPARISON: None. FINDINGS: Postoperative changes of thyro idectomy and central compartment lymph node dissection in 2013 and revision rivera tral compartment surgery and neck dissection in 2014. Additional treatment with radioactive iodine. FNA biopsy on 03/07/2019 of a left neck node showed pa pillary thyroid carcinoma, and a smaller node on the right showed B-cell lymphoma . Heterogeneous, partially cystic conglome rate lymph node mass in the left neck at level II measures up to 3.9 cm AP by 1.8 cm TR by 4.7 cm SI dimensions. This contacts the posterior aspect of the lef t internal jugular vein, the paraspinal musculature, and the left sternocleidoma stoid muscle. Additional enlarged noncystic lymph nodes throughout the lef t neck measuring up to 2.4 cm at left level II (7/209). Multiple less prominen t, noncystic lymph nodes throughout the right side of the neck. Mildly enlarged bilateral retropharyngeal lymph nodes, nonspecific. Calcified plaque at the bilateral caroti d bifurcations, with mild narrowing on the right. Moderate mucosal thickening a nd fluid in the paranasal sinuses. Postsurgical changes both globes. Mild d egenerative changes in the cervical spine. IMPRESSION: 1. Large conglomerate, partially cystic lymph node mass at left level II, likely representing metastatic papillary thyroi d carcinoma. 2. Numerous prominent lymph nodes throug hout the neck, most prominent on the left, are indeterminate and could be rel ated to known lymphoma. Wilbert Child M.D. IMAvila CT PROCEDURES documented in this encounter Visit Diagnoses Diagnosis Malignant Neoplasm Of Thyroid (HCC) documented in this encounter Administered Medications Inactive Administered Medications - up to 3 most recent administrations Medication Order MAR Action Action Date Dose Rate Site iohexol 300 mg iodine/mL solution Given 03/20/2019 5:17 PM CDT 1 00 mL 1-200 mL (OMNIPAQUE) 1-200 mL, intravenous, Once in imaging, contrast, Starting on Tue03/20/19 at 1648, For 1 dose, Imaging Protocol Orders, Dose per Radiant Medication Guidelines sodium chloride (PF) 0.9 % injection 1-1 00 mL Given 03/20/2019 5:17 PM CDT 35 mL 1-100 mL, intravenous, Once, On Tue03/20/19 at 1700, For 1 dose, Imaging Protocol Orders documented in this encounter Care Teams Online Media Buyer Relationship Specialty Start Date End Date Elsewhere, Pcp PCP - General Family Medicine 10/25/18 documented as of this encounter
--- OUTSIDE RECORDS SUMMARY | 2022-08-27 11:27 | XMS_ITS | Encounter Summary ---
:1945 Author Organization [facility] Address [address] [place] [address] Care Team Providers Name Role Phone Elsewhere, Pcp Primary Care Provider Unavailable Encounter Details Date Type Department Care Team Description 03/19/2019 Ancillary Department of [place] Malignant Neop lasm Procedure Radiology in Dante Muniz, Of Thyroid (HCC) Lupillo Gonzales [place] [address] [facility] [address] [place] [phone] Social History Tobacco Use Types Packs/Day Years [...] or relatives? How often do you attend gnosticist or More than 4 times per year 10/15/2019 worship services? Do you belong to any clubs or Yes 10/15/2019 organizations such as gnosticist groups, unions, fraternal or athletic groups, or [...] Natasha Mullins APRN, C.N.P., M.S.N. [address] [place] [phone] (Wo rk) 10/11/2022 Ancillary Procedure Cardiovascular Disease Natasha Cramer APRN, C.N.P., M.S.N. [address] [place] [phone] (Joanie rk) 10/11/2022 Appointment Cardiovascular Disease Natasha Mullins APRN, C.NRenetta, M.S.N. [address] [place] [phone] (Joanie rk) 10/12/2022 Office Visit Cardiovascular Disease Natasha Mullins APRN, C.NRenetta, M.S.N. [address] [place] [phone] (Joanie velázquez) documented as of this encounter Procedures Procedure Name Priority Date/Time Associated Comments Diagnosis INTERPRETATION OF RAD - Routine 03/19/2019 10:51 Malignant Resul ts for OUTSIDE NM PET SCAN (most inpatients AM CDT Neoplasm Of this procedure and all Thyroid (HCC) are in the outpatients) results section. documented in this encounter Results Interpretation of Outside NM PET Scan (03/19/2019 10:51 AM CDT) Anatomical Region Laterality Modality Nuclear Medicine PET RST LOS, Nuclear Medicine ARZ LOS, N/A Nuclear Medicine Nuclear Medicine FLA LOS Specimen (Source) Anatomical Collection Method Collection Time Re ceived Time Location / / Volume Laterality 03/20/2019 4:49 PM CDT Impressions 03/21/2019 5:32 PM CDT IMPRESSION: ??There are 2 focal areas of increased FDG uptake is seen in the upper left neck. No other abnormal FDG u ptake is noted. Based on the recent biopsy in the left neck these are more l ikely due to thyroid carcinoma but could represent lymphoma. Narrative 03/21/2019 5:32 PM CDT EXAM: ??INTERPRETATION OF OUTSIDE NM PET SCAN - FDG PET scan dated 02/15/2019. TECHNIQUE: ??F-18 FDG PET/CT from the or bits through the pelvis with CT fusion imaging for attenuation correction and a natomic coregistration only is provided for review. COMPARISON: ??No previous FDG PET scan. CT scan of the neck dated 03/20/2019. INDICATION: Restaging papillary thyroid carcinoma. Recent relapsed thyroid carcinoma in the left neck node. Smaller node on the right showed non-Hodgkin's lymphoma. Subsequent treatment strategy. FINDINGS: ??There is increased FDG uptak e seen in a focal area medial to the left sternocleidomastoid and posterior to the angle of mandible presumably within a left level 2 cervical lymph node. This f ocal uptake measures proximally 1.6 x 1.0 cm and has FDG SUV maximum measuring 9.4. In addition there is milder focal increased FDG uptake seen just inferior on the left likely within the level 2 node but not well seen on the CT. This m easures 1.0 x 0.8 cm and has a SUV maximum measuring 5.6. No abnormal FDG uptake seen in the remai nder of the left neck, thyroid bed, or in the right neck. Remainder the body im ages show no increased FDG uptake within lymph nodes, spleen, bone marrow, or valeria er. The spleen is normal size. Additional findings the noncontrast low- dose CT: Cardiac stent. Coronary artery calcifications. ??Scarring in the base o f the left lung. Calcifications in the prostate. Small left renal calculus with out evidence of obstruction. Procedure Note Onel Ramos M.D. - 03/21/2019For matting of this note might be different from the original. EXAM: INTERPRETATION OF OUTSIDE NM PET S CAN - FDG PET scan dated 02/15/2019. TECHNIQUE: F-18 FDG PET/CT from the orbi ts through the pelvis with CT fusion imaging for attenuation correction and a natomic coregistration only is provided for review. COMPARISON: No previous FDG PET scan. CT scan of the neck dated 03/20/2019. INDICATION: Restaging papillary thyroid carcinoma. Recent relapsed thyroid carcinoma in the left neck node. Smaller node on the right showed non-Hodgkin's lymphoma. Subsequent treatment strategy. FINDINGS: There is increased FDG uptake seen in a focal area medial to the left sternocleidomastoid and posterior to the angle of mandible presumably within a left level 2 cervical lymph node. This f ocal uptake measures proximally 1.6 x 1.0 cm and has FDG SUV maximum measuring 9.4. In addition there is milder focal increased FDG uptake seen just inferior on the left likely within the level 2 node but not well seen on the CT. This m easures 1.0 x 0.8 cm and has a SUV maximum measuring 5.6. No abnormal FDG uptake seen in the remai nder of the left neck, thyroid bed, or in the right neck. Remainder the body im ages show no increased FDG uptake within lymph nodes, spleen, bone marrow, or valeria er. The spleen is normal size. Additional findings the noncontrast low- dose CT: Cardiac stent. Coronary artery calcifications. Scarring in the base of the left lung. Calcifications in the prostate. Small left renal calculus with out evidence of obstruction. IMPRESSION: There are 2 focal areas of i ncreased FDG uptake is seen in the upper left neck. No other abnormal FDG u ptake is noted. Based on the recent biopsy in the left neck these are more l ikely due to thyroid carcinoma but could represent lymphoma. Dante Muniz M.D. IM NM PROCEDURES documented in this encounter Visit Diagnoses Diagnosis Malignant Neoplasm Of Thyroid (HCC) documented in this encounter Care Teams Manager Client Service Relationship Specialty Start Date End Date Elsewhere, Pcp PCP - General Family Medicine 10/25/18 documented as of this encounter
--- OUTSIDE RECORDS SUMMARY | 2022-08-27 11:28 | XMS_ITS | Encounter Summary ---
:1945 Author Organization [facility] Address [address] [place] [address] Care Team Providers Name Role Phone Elsewhere, Pcp Primary Care Provider Unavailable Encounter Details Date Type Department Care Team Description 10/25/2018 Hospital Encounter Department of Chai Fagan, [facility] (HCC) Radiology, [facility], [facility] [address] [place] [address] [place] [phone] [place], [place] [phone] (Work) [phone] Social History Tobacco Use Types Packs/Day Years [...] More than 4 times per year 10/15/2019 mandaen services? Do you belong to any clubs [...] 08/2409/05/2019 LEVOTHROID) 200 mcg mouth daily. tablet nitroglycerin (NITROSTAT) Place 1 tablet under 0 10/21/2017 10/15/2019 0.4 mg SL tablet the tongue as needed. Place 1 tab [...] Natasha Mullins APRN, C.N.P., M.S.N. [address] [place] [address] (Wo rk) 10/11/2022 Ancillary Procedure Cardiovascular Disease Natasha Cramer APRN, C.NRenetta, M.S.N. [address] [place] [phone] (Wo rk) 10/11/2022 Appointment Cardiovascular Disease Natasha Mullins APRN, C.NRenetta, M.S.N. [address] [place] [phone] (Joanie rk) 10/12/2022 Office Visit Cardiovascular Disease Natasha Mullins APRN, C.NRenetta, M.S.N. [address] [place] [phone] (Joanie rk) documented as of this encounter Procedures Procedure Name Priority Date/Time Associated Comments Diagnosis DX CHEST AP OR PA RAD - Routine 10/25/2018 7:28 Failure Heart Resul ts for this AND LATERAL 2 (most inpatients AM LEGAL ANALYST (HCC) procedure are in VIEWS and all the results outpatients) section. documented in this encounter Results DX Chest AP or PA and Lateral 2 Views (10/25/2018 7:28 AM LEGAL ANALYST) Anatomical Region Laterality Modality Chest, Thoracic RST LOS, Thoracic ARZ LOS, Thoracic N/A Digital Radiography FLA LOS Specimen (Source) Anatomical Collection Method Collection Time Re ceived Time Location / / Volume Laterality 10/25/2018 8:09 AM LEGAL ANALYST Impressions 10/25/2018 8:10 AM LEGAL ANALYST IMPRESSION: ??Tortuous aorta. Slight scarring left base. Chest otherwise negative. No change since 10/14/2016. Narrative 10/25/2018 8:10 AM LEGAL ANALYST EXAM: ??DX CHEST AP OR PA AND LATERAL 2 VIEWS Procedure Note Dashawn Morataya M.D. - 10/25/2018Format ting of this note might be different from the original. EXAM: DX CHEST AP OR PA AND LATERAL 2 EWS IMPRESSION: Tortuous aorta. Slight scarr ing left base. Chest otherwise negative. No change since 10/14/2016. Danny Eastman APRNNRenetta, M.S.N. IMG DIAGNO STIC IMAGING PROCEDURES documented in this encounter Visit Diagnoses Diagnosis Failure Heart (HCC) documented in this encounter Care Teams Csr Technician Relationship Specialty Start Date End Date Elsewhere, Pcp PCP - General Family Medicine 10/25/18 documented as of this encounter
--- OUTSIDE RECORDS SUMMARY | 2022-08-27 11:28 | XMS_ITS | Encounter Summary ---
:1945 Author Organization [facility] Address [address] [place] [address] Care Team Providers Name Role Phone Elsewhere, Pcp Primary Care Provider Unavailable Reason for Referral Outpatient (Routine) - Closed Specialty Diagnoses / Procedures Referred By Contact Refer red To Contact Cardiovascular Disease Lauren Mullins APRN, C.NRenetta, M.S.N. [address] [place] [phone] Referral ID Status Reason Start Date Expiration Date Visits Requ ested Visits Authorized [id number] Closed 10/25/2018 10/25/2019 1 1 INSPECTOR Reason for Visit Appointment Request (Routine) - Closed Specialty Diagnoses / Procedures Referred By Contact Refer red To Contact Cardiovascular Disease Natasha Mullins APRN, C.N.PCarmine, M.S.N. [address] [place] [phone] Referral ID Status Reason Start Date Expiration Date Visits Requ ested Visits Authorized [id number] Closed 03/07/2018 09/03/2018 1 Encounter Details Date Type Department Care Team Description 10/25/2018 Office Visit Department of Chai Fagan, Cardiomyop athy Ischemic (Primary Dx); Cardiovascular Medicine VY Kaur, Chr onic Systolic (Congestive) Heart Failure (HCC); in [facility] milan Anderson, M.S.N. Hyperlipidemia [address] [place] [phone] Social History Tobacco Use Types Packs/Day Years [...] Sign Reading Time Taken Comments Blood Pressure 96/66 10/25/2018 2:02 PM CAP INSPECTOR Pulse 84 10/25/2018 2:02 PM CAP INSPECTOR Temperature 36.4 ??C (97.5 ??F) 10/25/2018 1:58 PM CAP INSPECTOR Respiratory Rate - - Oxygen Saturation - - Inhaled Oxygen Concentration - - Weight 77.8 kg (171 lb 8.3 oz) 10/25/2018 1:58 PM CAP INSPECTOR Height - - Body Mass Index 25.67 10/21/2017 12:48 PM CAP INSPECTOR documented in this encounter Progress Notes Natasha Mullins APRN, C.N.P., M.S.N. - 10/25/2018 2:00 PM CST Heart failure Established Note Referring Provider: No ref. provider found CHIEF COMPLAINT/REASON FOR CONSULT Annual follow-up of ischemic cardiomyopathy. 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 Ejection fraction was 30% to 35% December of 2015 by stress echocardiogram; negative for ischemia. I last met with the patient on October 21, 2017. He was doing well. Ejection fraction was stable at 40 to 45%. Today the patient presents alone. Other than a episode gastroenteritis requiring emergency room visit and fluid he has had a good year. He can walk indefinitely and climb 23 stairs consecutively without dyspnea or chest discomfort. Denies paroxysmal nocturnal dyspnea or orthopnea. Denies dizziness or lightheadedness, syncopal episodes or falls. No edema. He has seen his miller helper and required no adjustment to his thyroid supplement. REVIEW OF SYSTEMS The following portions of the patient's history were reviewed and updated as appropriate: allergies,current medications, family history, medical history, social history and surgical history. PAST MEDICAL/SURGICAL HISTORY 1. ST-elevation anterior myocardial infarction, August 2015. A. Drug-eluting stents to the proximal and mid LAD. B. 80% first diagonal not approached. C. Chronically occluded proximal right coronary artery receiving collaterals from the LAD. 2. Ischemic cardiomyopathy. LV ejection fraction 30% to 35%. A. Ejection fraction 43% by visual estimate, April 14, 2016. B. Ejection fraction 41%, October 14, 2016. C. EF 40% to 45%, October 2017. D. EF 50% October 2018. 3. Hyperlipidemia. 4. Asthma. 5. Thyroid cancer; Status post parathyroid resection, subsequent iatrogenic hypothyroidism. 6. History of rotator cuff tear with chronic right shoulder discomfort. ?? OBJECTIVE BP 96/66 (BP Location: Left arm, Patient Position: Standing, Cuff Size: Regular) Pulse 84 Temp 36.4 ??C (Tympanic) Wt 77.8 kg BMI 25.67 kg/m?? Wt 77.8 kg HT: - Body mass index is 25.67 kg/m??. Body surface area is 1.94 meters squared. ALLERGIES Allergies Allergen Reactions ??? Clindamycin Other (see comments) Unknown. ??? Mold Other (see comments) Unknown. ??? Penicillins Other (see comments) Unknown. ??? Pneumococcal Vaccine Other (see comments) Headache and body ache ??? Shellfish Containing [...] (COREG) 25 mg tablet, Take 1 tablet by mouth 2 (two) times a day. ??? cetirizine (ZyrTEC) 10 mg chewable tablet, Chew 1 tablet daily. ??? cholecalciferol (VITAMIN D3) 1,000 Unit tablet, Take 1 tablet by mouth daily. ??? clopidogrel (PLAVIX) 75 mg tablet, Take 1 tablet by mouth daily. ??? fluticasone (FLONASE) 50 mcg/actuation nasal spray, Administer into affected nostril(s) daily. ??? fluticasone-salmeterol (ADVAIR DISKUS) 250-50 mcg/dose diskus inhaler, Inhale 1 puff daily. ??? levothyroxine (SYNTHROID, LEVOTHROID) 200 mcg tablet, Take 1 tablet by mouth daily. ??? lisinopril (PRINIVIL,ZESTRIL) 40 mg tablet, Take 1 tablet by mouth daily. ??? montelukast (SINGULAIR) 10 [...] apparent acute distress Vessels: Neck veins are flat at a 30 degree angle. No carotid bruits. Lungs: Clear to auscultation without rales, rhonchi, or wheeze. Heart:: Distant heart tones. Regular rate and rhythm with normal S1 and S2. No S3, S4, thrill, murmur, or heave appreciated. Abdomen: Soft, nontender, without palpable hepatomegaly. Extremities: No lower extremity edema or clubbing. Pedal pulses 3/4. Skin: Warm, dry, without diaphoresis or cyanosis. Musculoskeletal: Able to get on off the exam table without assistance. Neuro: Alert and able to give an adequate history. ECHOCARDIOGRAM: 1. Borderline left ventricular enlargement, calculated ejection fraction 50%. 2. Regional wall motion abnormalities were present (see wall motion graphics). 3. Grade 1/4 left ventricular diastolic dysfunction, consistent with low to normal left ventricular filling pressure. 4. Sclerotic aortic valve, trivial regurgitation. 5. Borderline right ventricular enlargement with normal systolic function. Estimated right ventricular systolic pressure 28 mmHg. 6. Mild tricuspid valve regurgitation. 7. Normal inferior vena cava size with normal inspiratory collapse (>50%). 8. No pericardial effusion. 9. Compared to the report of 10/21/2017 the following changes have occurred: Left ventricular ejection fraction and tricuspid regurgitation are slightly improved.. Side by side comparison of images performed. ASSESSMENT / PLAN #1 Cardiomyopathy Ischemic Patient is [place] heart Association functional class one and euvolemic. Stage C heart failure. I was pleased to advise him that his LV ejection fraction has improved to 50%. I refilled his carvediloland lisinopril. He should maintain these indefinitely. There is no role for adding spironolactone atthis juncture. #2 Chronic Systolic (Congestive) Heart Failure (HCC) As above. #3 Hyperlipidemia Total cholesterol 202, HDL 77, LDL 112, triglycerides 64. The patient is already on rosuvastatin 40 mg per day. He has an excellent HDL at 77. I do not recommend any changes to his cholesterol regime. #4 Coronary artery disease Asymptomatic. Will maintain Plavix given his history of myocardial infarction. #5 Status post thyroid resection on supplementation Patient saw his miller helper in July. He is aware that he runs very slightly hyperthyroid and prefers that given the underlying substrate. Return in one year. Patient encouraged to contact the office sooner if he develops any symptoms of heart failure or ischemia. Natasha Fagan APRN, C.N.P., M.S.N. 10/25/18 INSPECTOR documented in this encounter Plan of Treatment Upcoming Encounters Date Type Specialty Care Team Description 10/11/2022 Appointment Laboratory Medicine Natasha Mullins APRN, C.N.P., M.S.N. [address] [place] [phone] (Wo rk) 10/11/2022 Ancillary Procedure Cardiovascular Disease Natasha Cramer APRN, C.N.P., M.S.N. [address] [place] [phone] (Wo rk) 10/11/2022 Appointment Cardiovascular Disease Natasha Mullins APRN, C.N.PCarmine, M.S.N. [address] [place] [phone] (Wo rk) 10/12/2022 Office Visit Cardiovascular Disease Natasha Mullins APRN, C.N.P., M.S.N. [address] [place] [phone] (Joanie rk) Scheduled Referrals Name Type Priority Associated Order Schedule Diagnoses Cardiovascular Disease Outpatient Referral Routine Expected: office visit (clinic) 2018 (Approximate), Expires: 10/25/2021 documented as of this encounter Results ECG 12 Lead (10/15/2019 11:46 AM CAP INSPECTOR) P athologist Signature Ventricular Rate 72 BPM MUSE ECG/Min VA Interval 190 ms MUSE QRSD Interval 150 ms MUSE QT Interval 420 ms MUSE QTC Interval 459 ms MUSE P Blodgett 60 degrees MUSE R Blodgett -21 degrees MUSE T Wave Blodgett 55 degrees MUSE Specimen Anatomical Collection Method Collection Time Receive d Time (Source) Location / / Volume Laterality 10/15/2019 11:46 10/15/2019 AM CAP INSPECTOR 12:01 PM CAP INSPECTOR Impressions MUSE - 10/15/2019 12:01 PM CAP INSPECTOR Normal sinus rhythm Right bundle branch block with secondary ST-T abnormalities Anteroseptal infarct When compared with ECG of 22-MAR-2019 14 :14, No significant change was found Reviewed by WALESKA Clarke Narrative This result has an attachment that is no t available. Procedure Note Hi Khan M.D. - 10/15/2019Forma tting of this note might be different from the original. IMPRESSION: Normal sinus rhythm Right bundle branch block with secondary ST-T abnormalities Anteroseptal infarct When compared with ECG of 22-MAR-2019 14 :14, No significant change was found Reviewed by WALESKA Clarke Natasha EliseRadha Eric APRN.NCarminePCarmine, M.S.N. ECG ORDERA BLES Performing Organization Address City/State/ZIP Code Phon e Number MUSE MUSE NA (TTE) 2D ECHO DOPPLER COLOR (10/15/2019 10:40 AM CAP INSPECTOR) [facility] Method Time Signature Ejection Fraction 51 MC [...] / / Volume Laterality 10/15/2019 9:05 AM CAP INSPECTOR Impressions 10/15/2019 10:51 AM CAP INSPECTOR LEFT VENTRICLE: ??Borderline left ventricular enlargement. ??Normal [...] . For the complete report, see the [employer] Documents below. See PDF For Result Narrative 10/15/2019 10:51 AM CAP INSPECTOR For the complete report, see the [employer] Documents below. Final Impressions 1. Borderline left [...] Natasha Fagan APRN, C.N.P., M.S.N. CV ECHO VA OCEDURES Lipid Panel (10/15/2019 7:39 AM CAP INSPECTOR) P athologist Signature Cholesterol, 197 mg/dL 10/15/2019 DTL Total 9:43 AM CAP INSPECTOR Comment: ----REFERENCE VALUE---- Desirable: < 200 Borderline high: 200 - 239 High: > or = 240 Triglycerides 71 mg/dL 10/15/2019 9:43 AM CAP INSPECTOR DTL Comment: ----REFERENCE VALUE---- Normal: <150 Borderline high: 150-199 High: 200-499 Very high: > or =500 Cholesterol, HDL, S 75 >=40 mg/dL 10/15/2019 9:43 AM CAP INSPECTOR DTL Calculated LDL 108 mg/dL 10/15/2019 9:43 AM CAP INSPECTOR DT L Comment: ----REFERENCE VALUE---- Desirable: <100 Above Desirable: 100-129 Borderline high: 130-159 High: 160-189 Very high: > or =190 Cholesterol, Non-HDL, Calculated 122 mg/dL 019 9:43 AM CAP INSPECTOR DTL Comment: ----REFERENCE VALUE---- Desirable: <130 Above Desirable: 130-159 Borderline high: 160-189 High: 190-219 Very high: > or =220 Specimen Anatomical Collection Method Collection Time Receive d Time (Source) Location / / Volume Laterality Blood (Blood, 10/15/2019 7:39 AM 10/15/20 19 8:03 Venous) CAP INSPECTOR AM CAP INSPECTOR Danny Eastman APRNNRenetta, M.S.N. LAB BLOOD ADD-ON Performing Organization Address City/State/ZIP Code Phon e Number [facility] - [address] [place], [place] [address] [facility] [address] Laboratories-[facility] [address] AST (Aspartate Aminotransferase) (10/15/2019 7:39 AM CAP INSPECTOR) Patholo gist Method Time Signature Aspartate 24 8 - 48 10/15/2019 DTL Aminotransferase U/L 9:43 AM CAP INSPECTOR (AST), S Specimen Anatomical Collection Method Collection Time Receive d Time (Source) Location / / Volume Laterality Blood (Blood, 10/15/2019 7:39 AM 10/15/20 19 8:03 Venous) CAP INSPECTOR AM CAP INSPECTOR Natasha Fagan APRN, C.N.P., M.S.N. LAB BLOOD ADD-ON Performing Organization Address City/[facility] Phon e Number [facility] - [address] CBC without Differential (10/15/2019 7:39 AM CAP INSPECTOR) P athologist Signature Hemoglobin 14.6 13.2 - 10/15/2019 DTL 16.6 g/dL 8:15 AM CAP INSPECTOR Hematocrit 44.1 38.3 - 10/15/2019 DTL 48.6 % 8:15 AM CAP INSPECTOR Erythrocytes 4.76 4.35 - 10/15/2019 DTL 5.65 8:15 AM CAP INSPECTOR x10(12)/L MCV 92.6 78.2 - 10/15/2019 DTL 97.9 fL 8:15 AM CAP INSPECTOR RBC Distrib Width 13.3 11.8 - 10/15/2019 DTL 14.5 % 8:15 AM CAP INSPECTOR Platelet Count 206 135 - 317 10/15/2019 DTL x10(9)/L 8:15 AM CAP INSPECTOR Leukocytes 5.2 3.4 - 9.6 10/15/2019 DTL x10(9)/L 8:15 AM CAP INSPECTOR Specimen Anatomical Collection Method Collection Time Receive d Time (Source) Location / / Volume Laterality Blood (Blood, 10/15/2019 7:39 AM 10/15/20 19 8:03 Venous) CAP INSPECTOR AM CAP INSPECTOR Danny Eastman APRNNLibrado., M.S.N. LAB BLOOD ADD-ON Performing Organization Address City/[facility] Code Phon e Number [facility] - [address] Sodium (10/15/2019 7:39 AM CAP INSPECTOR) P athologist Signature Sodium, S 135 135 - 145 10/15/2019 9:43 DTL mmol/L AM CAP INSPECTOR Specimen Anatomical Collection Method Collection Time Receive d Time (Source) Location / / Volume Laterality Blood (Blood, 10/15/2019 7:39 AM 10/15/20 19 8:03 Venous) CAP INSPECTOR AM CAP INSPECTOR Danny Eastman APRNNLibrado., M.S.N. LAB BLOOD ADD-ON Performing Organization Address City/[facility] Phon e Number [facility] - [address] [place] [address] Laboratories-[address] Potassium (10/15/2019 7:39 AM CAP INSPECTOR) athologist Signature Potassium, S 4.7 3.6 - 5.2 10/15/2019 DTL mmol/L 9:43 AM CAP INSPECTOR Specimen Anatomical Collection Method Collection Time Receive d Time (Source) Location / / Volume Laterality Blood (Blood, 10/15/2019 7:39 AM 10/15/20 19 8:03 Venous) CAP INSPECTOR AM CAP INSPECTOR Radha Eastman APRN.N.Franklin., M.S.N. LAB BLOOD ADD-ON Performing Organization Address City/[facility] Code Phon e Number [facility] - [address] Creatinine with Estimated GFR (10/15/2019 7:39 AM CAP INSPECTOR) P athologist Signature Creatinine 0.90 0.74 - 10/15/2019 DTL 1.35 mg/dL 9:43 AM CAP INSPECTOR eGFR-Non 83 >=60 10/15/2019 DTL Black/ mL/min/BSA 9:43 AM CAP INSPECTOR Bhutanese Comment: ----ADDITIONAL INFORMATION---- Estimated GFR calculated using the 2009 CKD_EPI creatinine equation. eGFR-Black/ >90 >=60 mL/min/BSA 2018 9:43 AM CAP INSPECTOR DTL Comment: ----ADDITIONAL INFORMATION---- Estimated GFR calculated using the 2009 CKD_EPI creatinine equation. Specimen Anatomical Collection Method Collection Time Receive d Time (Source) Location / / Volume Laterality Blood (Blood, 10/15/2019 7:39 AM 10/15/20 19 8:03 Venous) CAP INSPECTOR AM CAP INSPECTOR Natasha Fagan APRN, C.N.P., M.S.N. LAB BLOOD ADD-ON Performing Organization Address City/[facility] Code Phon e Number [facility] - [address] [place], [place] [address] [place] [address] Laboratories-[facility] [address] BUN (Blood Urea Nitrogen) (10/15/2019 7:39 AM CAP INSPECTOR) P athologist Signature BUN (Blood Urea 20 8 - 24 10/15/2019 DTL Nitrogen), S mg/dL 9:43 AM CAP INSPECTOR Specimen Anatomical Collection Method Collection Time Receive d Time (Source) Location / / Volume Laterality Blood (Blood, 10/15/2019 7:39 AM 10/15/20 19 8:03 Venous) CAP INSPECTOR AM CAP INSPECTOR Natasha Fagan APRN, C.N.P., M.S.N. LAB BLOOD ADD-ON Performing Organization Address City/[facility] Phon e Number [facility] - [address] [place], [place] [address] [place] [address] Laboratories-[address] documented in this encounter Visit Diagnoses Diagnosis Cardiomyopathy Ischemic - Primary Chronic Systolic (Congestive) Heart Fail ure (HCC) Hyperlipidemia Cardiomyopathy Ischemic Chronic Systolic (Congestive) Heart Fail ure (HCC) documented in this encounter Care Teams Pharmacy Care Coordinator Relationship Specialty Start Date End Date Elsewhere, Pcp PCP - General Family Medicine 10/25/18 documented as of this encounter
--- OUTSIDE RECORDS SUMMARY | 2022-08-27 11:28 | XMS_ITS | Encounter Summary ---
:1945 Author Organization [facility] Address [address] [place] [address] Care Team Providers Name Role Phone Elsewhere, Pcp Primary Care Provider Unavailable Encounter Details Date Type Department Care Team Description 03/19/2019 Clinical Communication Department of Chai Fagan, Cardiovascular Medicine VY Kaur, in [facility] milan C.NCarminePCarmine, M.S.N. [address] [facility] [address] [place] [phone] Social History Tobacco Use Types Packs/Day Years [...] encounter Miscellaneous Notes Telephone Encounter - Michaela Lentz, R.N. - 03/19/2019 2:25 PM CDT I let Dr. Wu know that Natasha is out until tomorrow but I will have her give her a call tomorrowwhen she is in. Telephone Encounter - Satish Armas - 03/19/2019 9:[address] Owen is calling as Natasha has seen this patient for the last 3 years, however, she is away. Dr. Owen is wondering if she can talk to someone about if Mr. Khanna needs to be seen for OK for left lateral neck surgery. She is wondering if she should talk to another provider or if one of you ladies can page her?? I see Dr. Khan has seen her in the past, 2015. documented in this encounter Plan of Treatment Upcoming Encounters Date Type Specialty Care Team Description 10/11/2022 Appointment Laboratory Medicine Natasha Mullins APRN, C.N.P., M.S.N. [address] [place] [address] [phone] (Joanie velázquez) 10/11/2022 Ancillary Procedure Cardiovascular Disease Natasha Cramer APRN, C.N.P., M.S.N. [address] [place] [phone] (Joanie velázquez) 10/11/2022 Appointment Cardiovascular Disease Natasha Mullins APRN, C.N.P., M.S.N. [address] [place] [address] [phone] (Joanie velázquez) 10/12/2022 Office Visit Cardiovascular Disease Natasha Mullins APRN, C.N.P., M.S.N. [address] [place] [address] [phone] (Joanie velázquez) documented as of this encounter Visit Diagnoses Not on filedocumented in this encounter Care Teams Aviation Manager Relationship Specialty Start Date End Date Elsewhere, Pcp PCP - General Family Medicine 10/25/18 documented as of this encounter
--- OUTSIDE RECORDS SUMMARY | 2022-08-27 11:28 | XMS_ITS | Encounter Summary ---
:1945 Author Organization [facility] Address [address] [place] [address] Care Team Providers Name Role Phone Elsewhere, Pcp Primary Care Provider Unavailable Encounter Details Date Type Department Care Team Description 03/06/2019 Lab RST RO Loni Disla, Hyperlipidemia; [address] [facility] M.D. 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 Do you belong to any clubs [...] Natasha Mullins APRN, C.N.P., M.S.N. [address] [place] [address] (Wo rk) 10/11/2022 Ancillary Procedure Cardiovascular Disease Natasha Cramer APRN, C.N.P., M.S.N. [address] [place] [phone] (Wo rk) 10/11/2022 Appointment Cardiovascular Disease Natasha Mullins APRN, C.N.P., M.S.N. [address] [place] [phone] (Joanie rk) 10/12/2022 Office Visit Cardiovascular Disease Natasha Mullins APRN, C.N.P., M.S.N. [address] [place] [phone] (Joanie rk) documented as of this encounter Procedures Procedure Name Priority Date/Time Associated Diagnosis Comme nts PATHOLOGY REVIEW OF Routine 12/12/2015 10:16 AM Hyperlip idemia Results for this OUTSIDE MATERIAL VOICE INTERCEPT TECHNICIAN Chronic Systolic procedu re are in (Congestive) Heart the resul ts Failure (HCC) section. Cardiomyopathy Ischemic Failure Heart (HCC) documented in this encounter Results Pathology Review of Outside Material (12/12/2015 10:16 AM VOICE INTERCEPT TECHNICIAN) Component Value Ref Test Analysis Performed At Patholo gist Range Method Time Signature Material A. [id number]: Right parotid mass and left cervical lymph 03/09/2019 [facility] Received node 4:38 PM LABORATORIES ? 11 stained slides [facility] Report Saúl Leary M.D. 03/09/2019 [facility] electronically I verify that I have examined all relevant slides/ma terials 4:38 PM LABORATORIES signed by for the specimen(s) and rendered or confirmed the diagnosi s. [facility] 03/09/2019 [facility] 4:38 PM LABORATORIES [facility] Interpretation FINAL DIAGNOSIS 03/09/2019 [facility] Right parotid mass, ultrasound-guided fine needle 4:38 PM LABORATORIES aspiration ([id number], part A; 12/12/2015): ??Negative for [facility] malignancy. [facility] Lymph node, left cervical, ultrasound-guided fine needle aspiration ([id number], part B; 12/12/2015): ??Small lymphocytes present with immunophenotypic features consistent with involvement by a B-cell lymphoma. Flow cytometric immunophenotyping was performed at an outside laboratory on a portion of this aspirated left cervical lymph node. ??By report, there was a CD19, CD20, and CD22 positive B-cell population that was kappa immunoglobulin light chain restricted. ??These B-cells were negative for CD5, CD10, CD23, CD43, CD103, and CD138. These reported immunophenotypic data support a diagnosis of malignant lymphoma and indicate a B-cell phenotype. Specimen Anatomical Collection Method Collection Time Receive d Time (Source) Location / / Volume Laterality Varies 12/12/2015 10:16 03/08/2019 AM VOICE INTERCEPT TECHNICIAN 12:20 PM CDT Narrative This result has an attachment that is no t available. Loni Wu M.D. LAB SURG PATH ORDERABLES Performing Organization Address City/State/ZIP Code Phon e Number [facility] LABORATORIES - [address] [place] [id number] [facility] documented in this encounter Visit Diagnoses Diagnosis Hyperlipidemia Chronic Systolic (Congestive) Heart Fail ure (HCC) Cardiomyopathy Ischemic Failure Heart (HCC) documented in this encounter Care Teams Reflesher Relationship Specialty Start Date End Date Elsewhere, Pcp PCP - General Family Medicine 10/25/18 documented as of this encounter
--- OUTSIDE RECORDS SUMMARY | 2022-08-27 11:28 | XMS_ITS | Encounter Summary ---
:1945 Author Organization [facility] Address [address] [place] [address] Care Team Providers Name Role Phone Elsewhere, Pcp Primary Care Provider Unavailable Encounter Details Date Type Department Care Team Description 03/01/2019 Hospital Encounter Department of Fatourechi, Cancer T hyroid Radiology, Jethro Zee M.D. [facility] in [place], [place] [address] [place] [address] Social History Tobacco Use Types Packs/Day Years [...] Medicine Natasha Mullins APRN, Radha.N.P., M.S.N. [address] [place] [phone] (Wo rk) 10/11/2022 Ancillary Procedure Cardiovascular Disease Natasha Cramer APRN, Radha.N.P., M.S.N. [address] [place] [phone] (Wo rk) 10/11/2022 Appointment Cardiovascular Disease Natasha Mullins APRN, C.N.[place]., M.S.N. [address] [place] [phone] (Joanie rk) 10/12/2022 Office Visit Cardiovascular Disease Natasha Mullins APRN, Radha.N.P., M.S.N. [address] [place] [phone] (Joanie rk) documented as of this encounter Procedures Procedure Name Priority Date/Time Associated Comments Diagnosis US HEAD NECK SOFT RAD - Routine 03/01/2019 8:01 Cancer Thyroid Resu lts for this TISSUE (most inpatients AM CDT Papillary procedure a re in and all Personal History the results outpatients) section. documented in this encounter Results US Head Neck Soft Tissue (03/01/2019 8:01 AM CDT) Anatomical Region Laterality Modality Head and Neck, Ultrasound RST LOS, Ultrasound ARZ LOS, N/A Ultrasound Ultrasound FLA LOS Specimen (Source) Anatomical Collection Method Collection Time Re ceived Time Location / / Volume Laterality 03/01/2019 8:15 AM CDT Impressions 03/01/2019 8:26 AM CDT IMPRESSION: Thyroidectomy. Large partially cystic nodes in the left level 2 and 5 neck are suspicious for metastatic pap illary carcinoma. Tiny nodule in the left thyroid bed is indeterminate for a tiny focus of metastatic disease. There are additional prominent nodes in the bi lateral cervical chains which do not have specific suspicious cystic change o r microcalcifications and may be reactive or related to lymphoproliferati ve disease. Correlate clinically. Narrative 03/01/2019 8:26 AM CDT EXAM: US HEAD NECK SOFT TISSUE COMPARISON: None FINDINGS: Thyroidectomy. Large partially cystic nodes in the left level 2 and 5 neck are suspicious for metastatic papil jimmie carcinoma, one measuring 2.0 cm x 4.0 cm x 4.1 cm and a 2nd measuring 2.1 cm x 3.6 cm x 2.8 cm. Tiny 3 x 6 x 7 mm nodule with small cystic changes in the left thyroid bed is indeterminate for a tiny focus of metastatic disease. There are additional prominent nodes in the bilateral cervical chains which do not h ave suspicious cystic change or microcalcifications and may be reactive or related to lymphoproliferative disease. Correlate clinically. Procedure Note Audrey Lamar M.D. - 03/01/2019Form atting of this note might be different from the original. EXAM: US HEAD NECK SOFT TISSUE COMPARISON: None FINDINGS: Thyroidectomy. Large partially cystic nodes in the left level 2 and 5 neck are suspicious for metastatic papil jimmie carcinoma, one measuring 2.0 cm x 4.0 cm x 4.1 cm and a 2nd measuring 2.1 cm x 3.6 cm x 2.8 cm. Tiny 3 x 6 x 7 mm nodule with small cystic changes in the left thyroid bed is indeterminate for a tiny focus of metastatic disease. There are additional prominent nodes in the bilateral cervical chains which do not h ave suspicious cystic change or microcalcifications and may be reactive or related to lymphoproliferative disease. Correlate clinically. IMPRESSION: Thyroidectomy. Large partial ly cystic nodes in the left level 2 and 5 neck are suspicious for metastatic pap illary carcinoma. Tiny nodule in the left thyroid bed is indeterminate for a tiny focus of metastatic disease. There are additional prominent nodes in the bi lateral cervical chains which do not have specific suspicious cystic change o r microcalcifications and may be reactive or related to lymphoproliferati ve disease. Correlate clinically. Yayo CHERRYG US PROCEDURES documented in this encounter Visit Diagnoses Diagnosis Cancer Thyroid Papillary Personal Histor y documented in this encounter Care Teams Leather Stitcher Relationship Specialty Start Date End Date Elsewhere, Pcp PCP - General Family Medicine 12/12/18 documented as of this encounter
--- OUTSIDE RECORDS SUMMARY | 2022-08-27 11:28 | XMS_ITS | Encounter Summary ---
:1945 Author Organization [facility] Address [address] [place] [id number] Care Team Providers Name Role Phone Elsewhere, Pcp Primary Care Provider Unavailable Encounter Details Date Type Department Care Team Description 03/07/2019 Hospital Encounter Department of Loni Wu M.D. [address] [place] [phone] Malignant Neoplasm Of Thyroid (HCC); Radiology, Pierre Contreras M.D. 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 How [...] 40 Take 1 tablet (40 30 tablet 10/201810/15/2019 mg tablet mg total) by mouth daily. sildenafiL (Viagra) 100 Take by mouth. 0 07/10/20 10 01/05/2021 mg tablet documented as of this encounter Plan of Treatment Upcoming Encounters Date Type Specialty Care Team Description 10/11/2022 Appointment Laboratory Medicine Natasha Mullins APRN, C.N.P., M.S.N. [address] [place] [phone] (Joanie rk) 10/11/2022 Ancillary Procedure Cardiovascular Disease Natasha Cramer APRN, C.N.P., M.S.N. [address] [place] [phone] (Joanie rk) 10/11/2022 Appointment Cardiovascular Disease Natasha Mullins APRN, C.N.P., M.S.N. [address] [place] [phone] (Wo rk) 10/12/2022 Office Visit Cardiovascular Disease Natasha Mullins APRN, C.N.P., M.S.N. [address] [place] [phone] (Wo rk) documented as of this encounter Procedures Procedure Name Priority Date/Time Associated Comments Diagnosis US LYMPH NODE RAD - Routine 03/07/2019 10:12 Malignant Neoplasm Res ults for this BIOPSY (most inpatients AM CDT Of Thyroid (HCC ) procedure are in and all Diffuse Large B the results outpatients) Cell Lymphoma section. Unspecified Site (HCC) CYTOLOGY FINE Routine 03/07/2019 9:36 Malignant Neoplasm Resul ts for this NEEDLE ASPIRATION AM CDT Of Thyroid (HC C) procedure are in (INCLUDES CORE Diffuse Large B the result s BIOPSIES Cell Lymphoma section. Unspecified Site (HCC) THYROGLOBULIN, Routine 03/07/2019 9:35 Malignant Neoplasm Resu lts for this FNA, LYMPH NODE AM CDT Of Thyroid (HCC) procedure are in Diffuse Large B the results Cell Lymphoma section. Unspecified Site (HCC) documented in this encounter Results US Lymph Node Biopsy (03/07/2019 10:12 AM CDT) Anatomical Region Laterality Modality Body, Ultrasound RST LOS, Ultrasound ARZ LOS, Procedure FLA N/A Ultrasound LOS, Abdominal FLA LOS Specimen (Source) Anatomical Collection Method Collection Time Re ceived Time Location / / Volume Laterality 03/07/2019 10:34 AM CDT Impressions 03/07/2019 10:37 AM CDT IMPRESSION: Ultrasound-guided lymph node biopsy. NR Narrative 03/07/2019 10:37 AM CDT EXAM: US LYMPH NODE BIOPSY PRE-PROCEDURE: Patient seen, evaluated, and history reviewed. Discussed risks, benefits, alternatives for procedure, an d obtained informed consent. Patient understands information and questions an swered. Immediately prior to starting the procedure, in the presence of the as sisting personnel, procedural pause was conducted to verify correct patient iden tity and verification of procedure to be performed, and as applicable, correct si de and site, correct patient position, availability of implants, special equipm ent, or special requirements, and all image and specimen identification data. The roles and responsibilities of care team members, residents, and fellows ion jhaveri discussed. TECHNIQUE: Sterile. 1% lidocaine for loc al anesthesia. Location: 1. Right level 6 lymph node. This was th e lymph node felt to most amenable to core biopsy in the right side of the nec k. 2. Left level 2 lymph node Needle size: 1. 20-gauge core biopsy 2. 25-gauge FNA Number of passes: 1. 4 core samples were obtained from the right level 6 lymph node. 2. 6 FNA samples with thyroglobulin assa y were performed from the left level 2 lymph node. Complication: None. Blood loss: None. PATIENT INSTRUCTIONS: Patient may be dis missed from the radiology department when dismissal criteria met. POST-PROCEDURE DIAGNOSIS: Bilateral angelique opathy Procedure Note Pierre Mcnally M.D. - 03/07/2019Formatti ng of this note might be different from the original. EXAM: US LYMPH NODE BIOPSY PRE-PROCEDURE: Patient seen, evaluated, and history reviewed. Discussed risks, benefits, alternatives for procedure, an d obtained informed consent. Patient understands information and questions an swered. Immediately prior to starting the procedure, in the presence of the as sisting personnel, procedural pause was conducted to verify correct patient iden tity and verification of procedure to be performed, and as applicable, correct si de and site, correct patient position, availability of implants, special equipm ent, or special requirements, and all image and specimen identification data. The roles and responsibilities of care team members, residents, and fellows ion jhaveri discussed. TECHNIQUE: Sterile. 1% lidocaine for loc al anesthesia. Location: 1. Right level 6 lymph node. This was th e lymph node felt to most amenable to core biopsy in the right side of the nec k. 2. Left level 2 lymph node Needle size: 1. 20-gauge core biopsy 2. 25-gauge FNA Number of passes: 1. 4 core samples were obtained from the right level 6 lymph node. 2. 6 FNA samples with thyroglobulin assa y were performed from the left level 2 lymph node. Complication: None. Blood loss: None. PATIENT INSTRUCTIONS: Patient may be dis missed from the radiology department when dismissal criteria met. POST-PROCEDURE DIAGNOSIS: Bilateral angelique opathy IMPRESSION: Ultrasound-guided lymph node biopsy. NR Loni Wu M.D. IMG US PROCEDURES (ABNORMAL) Cytology Fine Needle Aspiration (including core biopsies) (03/07/2019 9:36 AM CDT) Component Value Ref Test Analysis Performed At [facility] Method Time Signature Gross A: ?? Received 12 alcohol-fixed smears. 03/09/2019 [facility] Description B: ?? Received 5 alcohol-fixed smears and tissue. 2:15 PM LABORATORIES - Additionally, received in formalin labeled with the CDT [facility] patient's name, medical record number and lymph node, CAMPUS right neck are five pale mcnally soft tissue cores and fragments, ranging from 0.1-0.8 cm in length. Due to the scant nature of the tissue fragments, some or all may not survive processing. Specimens are submitted en toto in cassette B1. Grossed by (A) Disclaimer This test was developed and its performance characteri stics 03/09/2019 [facility] determined by [facility] in a manner consistent with CLIA 2:15 PM LABORATORIES - requirements. This test has not been cleared or approved b y [facility] the U.S. Food and Drug Administration. CAMPUS (A) Source A. Lymph node, Left neck, fine needle aspiration 03/09/2019 [facility] B. Lymph node, Right neck, fine needle aspiration 2:15 PM LABORATORIES - (A) [facility] Report Gabbi Clifford M.D. [phone] 03/09/2019 [facility] electronically I verify that I have examined all relevant slides/ma terials 2:15 PM LABORATORIES - signed by for the specimen(s) and rendered or confirmed the diagnosi s. [facility] B seen in consultation with: ??Nafisa Kwon M.D. CAMPUS (A) (A) 03/09/2019 [facility] 2:15 PM LABORATORIES - [facility] Interpretation A. Lymph node, Left neck, fine needle aspiration (sm ears): 03/09/2019 [facility] Positive for malignancy. 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 [facility] B. Lymph node, Right neck, fine needle aspiration CAMPUS (smears/tissue): Suspicious. ??Abnormal lymphoid infiltrate, suspicious for involvement by low-grade B-cell lymphoma. See comment. Morphologically, there are multiple tiny fragments of tissue containing a diffuse proliferation of small lymphocytes with scattered plasma cells. Immunoperoxidase studies were performed on paraffin sections of the lymph node, right neck biopsy (block B1) using antibodies directed against the following antigens: CD3, CD5, CD10, CD20, CD23, BCL2, BCL6, cyclin D1, IgD, and kappa and lambda immunoglobulin light chain. There is a fairly prominent population of small [id number] B-cells that co-express BCL2, very weakly co-express IgD, are suspicious for being kappa light chain-restricted, and are negative for all other markers tested. ??The accompanied plasma cells are polytypic. The findings support the diagnosis of an abnormal lymphoid infiltrate, suspicious for involvement by low-grade B-cell lymphoma. COMMENT In order to establish a definitive diagnosis for the suspicious lymphoid infiltrate in this case, it would be helpful to obtain a larger biopsy specimen. (A) Specimen (Source) Anatomical Collection Method Collection Time Re ceived Time Location / / Volume Laterality Tissue (Lymph 03/07/2019 9:36 AM Node) CDT Comment: Test for Flow Cytometry Tissue (Lymph Node) 03/07/2019 9:36 AM CD T Comment: Test for Flow Cytometry Narrative This result has an attachment that is no t available. Loni Wu M.D. LAB SURG PATH ORDERABLES Performing Organization Address City/[facility]/ZIP Code Phon e Number [facility] LABORATORIES - [address] [place] [address] [facility] (ABNORMAL) Thyroglobulin, Tumor Marker, Fine-Needle Aspiration (FNA)-Needle Wash, Lymph Node (03/07/2019 9:35 AM CDT) athologist Signature Thyroglobulin, 2502 (H) <=1.0 03/07/2019 [facility] FNA, Lymph ng/mL 4:06 PM CDT [facility] Comment: Thyroglobulin values >1.0 ng/mL suggests the node contains differentiated follicular cell derived thyroid carcinoma. This result assumes t hyroid tissue and/or patient blood was not inadvertent ly aspirated. This test should be interpreted in the c ontext of the clinical presentation, imaging and cytol ogy findings. ----ADDITIONAL INFORMATION---- This test has been modified from the [place] ufacturer's instructions. Its performance characteri stics were determined by [facility] in a manner consistent wi CLIA requirements. This test has not been cleared or approv ed by the U.S. Food and Drug Administration. The testing method is an immunoenzymatic assay manufactured by [employer] and performed on [facility] [employer] DxI 800. Values obtained with different assay met hods or kits may be different and cannot be used interchange ably. Test results cannot be interpreted as ab solute evidence for the presence or absence of malignant disease . Site left neck LN 03/07/2019 4:06 PM CDT [facility] Specimen (Source) Anatomical Collection Method Collection Time Re ceived Time Location / / Volume Laterality FNA Needle 03/07/2019 9:35 AM [place] (Lymph CDT Node) Comment: Test for Flow Cytometry Loni Wu M.D. 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 PRN Medication Order 03/05/2019 03/06/2019 03/07/2019 lidocaine 10 mg/mL (1 %) injection (XYLOCAINE) (CANCELED) 0949 (Given - Provider: Pierre Mcnally M.D. - Comment: right neck lymph node) Code/trauma/sedation medication, Starting on Tue03/07/19 at 0949 lidocaine 10 mg/mL (1 %) injection (XYLOCAINE) (CANCELED) 1001 (Given - Provider: Pierre Mcnally M.D. - Comment: left thyroid lymph node) Code/trauma/sedation medication, Starting on Tue03/07/19 at 1001 documented in this encounter Care Teams Certified Nurse Aide Relationship Specialty Start Date End Date Elsewhere, Pcp PCP - General Family Medicine 10/25/18 documented as of this encounter
--- OUTSIDE RECORDS SUMMARY | 2022-08-27 11:28 | XMS_ITS | Encounter Summary ---
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 Do you belong to any clubs [...] Medicine Natasha Mullins APRN, C.N.P., M.S.N. [address] [place] [phone] (Joanie velázquez) 10/11/2022 Ancillary Procedure Cardiovascular Disease Natasha Cramer APRN, C.N.P., M.S.N. 200 [place] [phone] (Joanie velázquez) 10/11/2022 Appointment Cardiovascular Disease Natasha Mullins APRN, C.N.P., M.S.N. [address] [place] [phone] (Wo rk) 10/12/2022 Office Visit Cardiovascular Disease Natasha Mullins APRN, Radha.N.Franklin., M.S.N. [address] [place] [phone] (Wo rk) documented as of this encounter Procedures Procedure Name Priority Date/Time Associated Comments Diagnosis THYROGLOBULIN MASS Routine 03/01/2019 8:45 AM Res ults for this SPECTROMETRY, S CDT procedure ar e in the results section. THYROGLOBULIN, TM, S Routine 03/01/2019 8:45 AM Cancer Thyroid Results for this CDT Papillary Personal procedure are in History the results section. THYROID-STIMULATING Routine 03/01/2019 8:45 AM Cancer Thyroid Results for this HORMONE-SENSITIVE CDT Papillary Personal proc edure are in (S-TSH) History the results section. T4 (THYROXINE), FREE, Routine 03/01/2019 8:45 AM Cancer Thyroi d Results for this S CDT Papillary Personal procedure are in History the results section. documented in this encounter Results (ABNORMAL) Thyroglobulin Mass Spectrometry (03/01/2019 8:45 AM CDT) Component Value Ref Range Test Analysis Performed Pathologis t Method Time At Signature Thyroglobulin, 37 (H) Athyrotic 03/05/2019 [facility] Classroom Aide., S <0.5, 12:25 [address]IVE thyroid SUPPORT <=33 ng/mL CENTER Interpretation Thyroglobulin (Tg) levels must be interpreted in the 03/05/2019 [facility] context of TSH levels, serial Tg measurements and 12:25 PM SUPERIOR radioiodine ablation status. Tg levels of > or = 10 ng/mL CDT DRIVE in athyrotic individuals on suppressive therapy indicate SUPPORT a significant (>25%) risk of clinically detectable CENTER recurrent papillary/follicular thyroid cancer. Comment: ----ADDITIONAL INFORMATION---- PLEASE NOTE: Flagging is based on athyro tic individuals. The testing method is LC-MS/MS of an imm unoaffinity purified tryptic digest of thyroglobulin . ? Values obtained from different assay met hods or kits may be different and cannot be used inte rchangeably. ? The results cannot be interpreted as abs olute evidence for the presence or absence of malignant disease. This test was developed and its performa nce characteristics determined by [facility] in a manner consistent with CLIA requirements. This test has not been cleared or approved by the [place] d and Drug Administration. Specimen Anatomical Collection Method Collection Time Receive d Time (Source) Location / / Volume Laterality Blood 03/01/2019 8:45 AM 9 CDT 12:21 PM CDT Yayo Reese M.D. LAB BLOOD NON ADD-ON Performing Organization Address City/State/ZIP Code Phon e Number [facility] SUPERIOR [facility] [address] [place], [place] [address] [facility] [place] (ABNORMAL) Thyroglobulin, Tumor Marker (03/01/2019 8:45 AM CDT) [facility] Method Time Signature Thyroglobulin 256 (H) <4.0 03/01/2019 [facility] Antibody, S IU/mL 2:[address] [facility] Thyroglobulin, 19 (H) ng/mL 03/01/2019 [facility] Tumor Marker, S 2:[address] [facility] Comment: ----REFERENCE VALUE---- Athyrotic <0.1 Intact Thyroid <=33 Thyroglobulin SEE COMMENT 03/01/2019 2:10 PM CDT [facility] Interpretation [facility] Comment: Quantitation of thyroglobulin may be unr [...] papillary/follicular thyroid cancer. ----ADDITIONAL INFORMATION---- PLEASE NOTE: Thyroglobulin flagging is b ased on athyrotic reference values. The thyroglobulin and thyroglobulin anti body testing methods are immunoenzymatic assays manufactured by [employer] and performed on the [employer] DXI 800 . Values obtained from different assay met hods or kits may be different and cannot be used inte rchangeably. The results cannot be interpreted as abs olute evidence for the presence or absence of malignant disease. Specimen Anatomical Collection Method Collection Time Receive d Time (Source) Location / / Volume Laterality Blood (Blood, 03/01/2019 8:45 AM 03/01/20 Venous) CDT 12:59 PM CDT Yayo Reese M.D. LAB BLOOD ADD-ON Performing Organization Address City/[facility]/ZIP Code Phon e Number [facility] [address] [place] [phone] [address] [facility] (ABNORMAL) T4 (Thyroxine), Free (03/01/2019 8:45 AM CDT) [facility] [employer] Method Time Signature T4 1.9 (H) 0.9 - 1.7 03/01/2019 [facility] (Thyroxine), ng/dL 9:41 AM CDT LABORATORIES [facility], [facility] Specimen Anatomical Collection Method Collection Time Receive d Time (Source) Location / / Volume Laterality Blood (Blood, 03/01/2019 8:45 AM 03/01/20 8:51 Venous) CDT AM CDT Yayo Reese M.D. LAB BLOOD ADD-ON Performing Organization Address City/[facility]/ZIP Code Phon e Number [facility] [address] [place] [phone] [facility] (ABNORMAL) S-TSH (Thyroid-Stimulating Hormone - Sensitive) (03/01/2019 8:45 AM CDT) [facility] [employer] Method Time Signature TSH, Sensitive 0.1 (L) 0.3 - 4.2 03/01/2019 [facility] mIU/L 9:41 AM CDT [facility] Specimen Anatomical Collection Method Collection Time Receive d Time (Source) Location / / Volume Laterality Blood (Blood, 03/01/2019 8:45 AM 03/01/20 8:51 Venous) CDT AM CDT Yayo Reese M.D. LAB BLOOD ADD-ON Performing Organization Address City/[facility]/ZIP Code Phon e Number [facility] - [address] [place], [place] [address] [facility] documented in this encounter Visit Diagnoses Diagnosis Cancer Thyroid Papillary Personal Histor y documented in this encounter Care Teams Pipe Bender Relationship Specialty Start Date End Date Elsewhere, Pcp PCP - General Family Medicine 10/25/18 documented as of this encounter
--- OUTSIDE RECORDS SUMMARY | 2022-08-27 11:28 | XMS_ITS | Encounter Summary ---
:1945 Author Organization [facility] Address [address] [place] [phone] Care Team Providers Name Role Phone Elsewhere, Pcp Primary Care Provider Unavailable Encounter Details Date Type Department Care Team Description 10/25/2018 Hospital Encounter Department of Chai Fagan, [facility] Heart (HCC) Laboratory Medicine VY Kaur, and Pathology, C.N.P., [facility] [address] [place] [phone] [place] [address] [place], [place] (Work) [phone] Social History Tobacco Use Types Packs/Day Years [...] Natasha Mullins APRN, C.N.P., M.S.N. [address] [place] [phone] (Wo rk) 10/11/2022 Ancillary Procedure Cardiovascular Disease Natasha Cramer APRN, C.NRneetta, M.S.N. [address] [place] [phone] (Wo rk) 10/11/2022 Appointment Cardiovascular Disease Natasha Mullins APRN, C.NRenetta, M.S.N. [address] [place] [phone] (Wo rk) 10/12/2022 Office Visit Cardiovascular Disease Natasha Mullins APRN, C.NRenetta, M.S.N. [address] [place] [phone] (Joanie rk) documented as of this encounter Procedures Procedure Name Priority Date/Time Associated Comments Diagnosis LIPID PANEL, S Routine 10/25/2018 6:51 Failure Heart Results f or this AM PBX WIRE CHIEF (HCC) procedure are i n the results section. CBC WITHOUT Routine 10/25/2018 6:51 Failure Heart Results for this DIFFERENTIAL, B AM PBX WIRE CHIEF (HCC) procedure ar e in the results section. BUN (BLOOD UREA Routine 10/25/2018 6:51 Failure Heart Results for this NITROGEN), S/P AM PBX WIRE CHIEF (HCC) procedure are in the results section. ASPARTATE Routine 10/25/2018 6:51 Failure Heart Results for this AMINOTRANSFERASE (AST), AM PBX WIRE CHIEF (HCC) proc edure are in S/P the results section. THYROID-STIMULATING Routine 10/25/2018 6:51 Failure Heart Resu lts for this HORMONE-SENSITIVE AM PBX WIRE CHIEF (HCC) procedure are in (S-TSH) the results section. SODIUM, S/P Routine 10/25/2018 6:51 Failure Heart Results for this AM PBX WIRE CHIEF (HCC) procedure are i n the results section. POTASSIUM, S/P Routine 10/25/2018 6:51 Failure Heart Results f or this AM PBX WIRE CHIEF (HCC) procedure are i n the results section. CREATININE WITH EGFR, Routine 10/25/2018 6:51 Failure Heart Re sults for this S/P AM PBX WIRE CHIEF (HCC) procedure are i n the results section. documented in this encounter Results (ABNORMAL) Lipid Panel (10/25/2018 6:51 AM PBX WIRE CHIEF) [facility] Method Time Signature Cholesterol, 202 (H) mg/dL 10/25/2018 [facility] Total 7:56 AM [facility] Comment: ----REFERENCE VALUE---- Desirable: < 200 Borderline high: 200 - 239 High: > or = 240 Triglycerides 64 mg/dL 10/25/2018 7:56 AM PBX WIRE CHIEF [facility] Comment: ----REFERENCE VALUE---- Normal: <150 Borderline high: 150-199 High: 200-499 Very high: > or =500 Cholesterol, HDL, S 77 >=40 mg/dL 10/25/2018 7:56 AM PBX WIRE CHIEF [facility] Calculated LDL 112 mg/dL 10/25/2018 7:56 AM PBX WIRE CHIEF [facility] Comment: ----REFERENCE VALUE---- Desirable: <100 Above Desirable: 100-129 Borderline high: 130-159 High: 160-189 Very high: > or =190 Cholesterol, Non-HDL, 125 mg/dL 10/25/2018 7:5 6 AM PBX WIRE CHIEF [facility] [place] [facility] Comment: ----REFERENCE VALUE---- Desirable: <130 Above Desirable: 130-159 Borderline high: 160-189 High: 190-219 Very high: > or =220 Specimen Anatomical Collection Method Collection Time Receive d Time (Source) Location / / Volume Laterality Blood (Blood, 10/25/2018 6:51 AM 10/25/20 18 7:13 Venous) PBX WIRE CHIEF AM PBX WIRE CHIEF Natasha Fagan APRN, C.N.P., M.S.N. LAB BLOOD ADD-ON Performing Organization Address City/State/ZIP Code Phon e Number [facility] - 200 [place], [place] [address] [facility] (ABNORMAL) S-TSH (Thyroid-Stimulating Hormone - Sensitive) (10/25/2018 6:51 AM PBX WIRE CHIEF) [facility] Method Time Signature TSH, Sensitive 0.2 (L) 0.3 - 4.2 10/25/2018 [facility] mIU/L 7:56 AM [facility] Specimen Anatomical Collection Method Collection Time Receive d Time (Source) Location / / Volume Laterality Blood (Blood, 10/25/2018 6:51 AM 10/25/20 18 7:13 Venous) PBX WIRE CHIEF AM PBX WIRE CHIEF Natasha Fagan APRN, C.N.P., M.S.N. LAB BLOOD ADD-ON Performing Organization Address City/[facility]/ZIP Code Phon e Number [facility]ATORIES - 200 [place], [place] [address] [facility] AST (Aspartate Aminotransferase) (10/25/2018 6:51 AM PBX WIRE CHIEF) Patholo gist Method Time Signature Aspartate 27 8 - 48 10/25/2018 [facility] Aminotransferase U/L 7:56 AM PBX WIRE CHIEF LABORATORIE S - (AST), S [facility] Specimen Anatomical Collection Method Collection Time Receive d Time (Source) Location / / Volume Laterality Blood (Blood, 10/25/2018 6:51 AM 10/25/20 18 7:13 Venous) PBX WIRE CHIEF AM PBX WIRE CHIEF Natasha Fagan APRN, C.N.P., M.S.N. LAB BLOOD ADD-ON Performing Organization Address City/[facility]/ZIP Code Phon e Number [facility]IES - [address] [place] [phone] [facility] BUN (Blood Urea Nitrogen) (10/25/2018 6:51 AM PBX WIRE CHIEF) P athologist Signature BUN (Blood 23 8 - 24 10/25/2018 [facility] Urea mg/dL 7:56 AM PBX WIRE CHIEF LABORATORIES - Nitrogen), [facility] Specimen Anatomical Collection Method Collection Time Receive d Time (Source) Location / / Volume Laterality Blood (Blood, 10/25/2018 6:51 AM 10/25/20 18 7:13 Venous) PBX WIRE CHIEF AM PBX WIRE CHIEF Danny Eastman APRNNLibrado., M.S.N. LAB BLOOD ADD-ON Performing Organization Address City/[facility]/ZIP Code Phon e Number [facility] - [address] [place] [phone] [facility] Creatinine with Estimated GFR (10/25/2018 6:51 AM PBX WIRE CHIEF) Analysis Performed At Patho logist Time Signature Creatinine 0.88 0.74 - 10/25/2018 [facility] 1.35 mg/dL 7:56 AM PBX WIRE CHIEF LABORATORIES - [facility] eGFR-Non 84 >=60 10/25/2018 [facility] Black/ mL/min/BSA 7:56 AM PBX WIRE CHIEF LABORATORIES - [facility] Comment: ----ADDITIONAL INFORMATION---- Estimated GFR calculated using the 2009 CKD_EPI creatinine equation. eGFR-Black/ >90 >=60 mL/min/BSA 10/25/2018 7:56 [facility] Moldovan AM PBX WIRE CHIEF LABORATORIES - [facility] Comment: ----ADDITIONAL INFORMATION---- Estimated GFR calculated using the 2009 CKD_EPI creatinine equation. Specimen Anatomical Collection Method Collection Time Receive d Time (Source) Location / / Volume Laterality Blood (Blood, 10/25/2018 6:51 AM 10/25/20 18 7:13 Venous) PBX WIRE CHIEF AM PBX WIRE CHIEF Natasha Fagan APRN, Radha.N.P., M.S.N. LAB BLOOD ADD-ON Performing Organization Address City/[facility] Phon e Number [facility] - [address] [place] [phone] [facility] Potassium (10/25/2018 6:51 AM PBX WIRE CHIEF) P athologist Signature Potassium, S 4.6 3.6 - 5.2 10/25/2018 [facility] mmol/L 7:56 AM PBX WIRE CHIEF [facility] Specimen Anatomical Collection Method Collection Time Receive d Time (Source) Location / / Volume Laterality Blood (Blood, 10/25/2018 6:51 AM 10/25/20 18 7:13 Venous) PBX WIRE CHIEF AM PBX WIRE CHIEF Natasha Fagan APRN, Radha.N.P., M.S.N. LAB BLOOD ADD-ON Performing Organization Address City/[facility] Phon e Number [facility]IES - [address] [place] [address] [facility] (ABNORMAL) Sodium (10/25/2018 6:51 AM PBX WIRE CHIEF) P athologist Signature Sodium, S 133 (L) 135 - 145 10/25/2018 [facility] mmol/L 7:56 AM PBX WIRE CHIEF LABORATORIES [facility] Specimen Anatomical Collection Method Collection Time Receive d Time (Source) Location / / Volume Laterality Blood (Blood, 10/25/2018 6:51 AM 10/25/20 18 7:13 Venous) PBX WIRE CHIEF AM PBX WIRE CHIEF Natasha Fagan APRN, C.N.P., M.S.N. LAB BLOOD ADD-ON Performing Organization Address City/[facility] Code Phon e Number [facility]IES - [address] [place] [phone] [facility] CBC without Differential (10/25/2018 6:51 AM PBX WIRE CHIEF) [facility] gist Method Time Signature Hemoglobin 14.1 13.2 - 10/25/2018 [facility] 16.6 g/dL 7:36 AM PBX WIRE CHIEF LABORATORIES - [facility] Hematocrit 41.6 38.3 - 10/25/2018 [facility] 48.6 % 7:36 AM PBX WIRE CHIEF LABORATORIES - [facility] Erythrocytes 4.48 4.35 - 10/25/2018 [facility] 5.65 7:36 AM PBX WIRE CHIEF LABORATORIES - x10(12)/L [facility] MCV 92.9 78.2 - 10/25/2018 [facility] 97.9 fL 7:36 AM PBX WIRE CHIEF LABORATORIES - [facility] RBC Distrib Width 13.3 11.8 - 10/25/2018 [facility] 14.5 % 7:36 AM PBX WIRE CHIEF LABORATORIES - [facility] Platelet Count 205 135 - 317 10/25/2018 [facility] x10(9)/L 7:36 AM PBX WIRE CHIEF LABORATORIES - [facility] Leukocytes 5.4 3.4 - 9.6 10/25/2018 [facility] x10(9)/L 7:36 AM PBX WIRE CHIEF LABORATORIES - [facility] Specimen Anatomical Collection Method Collection Time Receive d Time (Source) Location / / Volume Laterality Blood (Blood, 10/25/2018 6:51 AM 10/25/20 18 7:13 Venous) PBX WIRE CHIEF AM PBX WIRE CHIEF Natasha Fagan APRN, C.N.P., M.S.N. LAB BLOOD ADD-ON Performing Organization Address City/[facility] Code Phon e Number [facility]IES - [address] [place] [phone] [facility] documented in this encounter Visit Diagnoses Diagnosis Failure Heart (HCC) documented in this encounter Care Teams Baby Formula Worker Relationship Specialty Start Date End Date Elsewhere, Pcp PCP - General Family Medicine 10/25/18 documented as of this encounter
--- OUTSIDE RECORDS SUMMARY | 2022-08-27 11:28 | XMS_ITS | Encounter Summary ---
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 Do you belong to any clubs [...] Medicine Natasha Mullins APRN, Radha.N.Franklin., M.S.N. [address] [place] [phone] (Joanie velázquez) 10/11/2022 Ancillary Procedure Cardiovascular Disease Natasha Cramer APRN, Radha.N.P., M.S.N. [address] [place] [phone] (Joanie velázquez) 10/11/2022 Appointment Cardiovascular Disease Natasha Mullins APRN, Radha.N.P., M.S.N. [address] [place] [phone] (Wo rk) 10/12/2022 Office Visit Cardiovascular Disease Natasha Mullins APRN, C.N.P., M.S.N. [address] [place] [phone] (Wo rk) documented as of this encounter Visit Diagnoses Not on filedocumented in this encounter
--- OUTSIDE RECORDS SUMMARY | 2022-08-27 11:28 | XMS_ITS | Encounter Summary ---
:1945 Author Organization [facility] Address [address] [place] [address] Care Team Providers Name Role Phone Unavailable Primary Care Provider Unavailable Reason for Visit Reason Comments Med Refill Encounter Details Date Type Department Care Team Description 10/12/2018 Refill Department of Cardiovascular Jace Rizvi, Med Refill Medicine in [facility].., C.M .S.R.N. [place] [address] [place] [address] [address] [place] [address] [place] [phone] Social History Tobacco Use Types Packs/Day Years [...] Medicine Natasha Mullins APRN, C.N.P., M.S.N. [address] [place] [phone] (Wo rk) 10/11/2022 Ancillary Procedure Cardiovascular Disease Natasha Cramer APRN, C.N.P., M.S.N. [address] [place] [phone] (Wo rk) 10/11/2022 Appointment Cardiovascular Disease Natasha Mullins APRN, Radha.N.P., M.S.N. [address] [place] [phone] (Joanie rk) 10/12/2022 Office Visit Cardiovascular Disease Natasha Mullins APRN, C.N.P., M.S.N. [address] [place] [phone] (Joanie rk) documented as of this encounter Visit Diagnoses Not on filedocumented in this encounter
--- OUTSIDE RECORDS SUMMARY | 2022-08-27 11:28 | XMS_ITS | Encounter Summary ---
:1945 Author Organization [facility] Address [address] [place] [id number] Care Team Providers Name Role Phone Elsewhere, Pcp Primary Care Provider Unavailable Reason for Visit Outpatient (Routine) - Closed Specialty Diagnoses / Procedures Referred By Contact Refer red To Contact Hematology Diagnoses Malignant Neoplasm Of Thyroid (HCC) Loni Wu M.D. [facility] [address] [place] [phone] Referral ID Status Reason Start Date Expiration Date Visits Requ ested Visits Authorized [id number] Closed 03/16/2019 03/15/2020 1 1 Encounter Details Date Type Department Care Team Description 03/19/2019 Comprehensive Visit Division of [place] [facility] [facility] Neoplasm Hematology in [place]eni Muniz, Of Thyroid (HCC) [place] [address] [place] [phone] Social History Tobacco Use Types Packs/Day Years [...] More than 4 times per year 10/15/2019 druze services? Do you belong to any clubs [...] Sign Reading Time Taken Comments Blood Pressure 114/64 03/19/2019 9:55 AM CDT Pulse 62 03/19/2019 9:55 AM CDT Temperature 35.8 ??C (96.4 ??F) 03/19/2019 9:55 AM CDT Respiratory Rate - - Oxygen Saturation - - Inhaled Oxygen Concentration - - Weight 75.4 kg (166 lb 3.6 oz) 03/19/2019 9:55 AM CDT Height 175.3 cm (5' 9.02) 03/19/2019 9:55 AM CDT Body Mass Index 24.54 03/19/2019 9:55 AM CDT documented in this encounter Consult Notes Yeni Xiong M.D. - 03/19/2019 10:00 AM CDT SUBJECTIVE REFERRING PROVIDER Loni Wu M.D. REASON FOR CONSULT B-cell non-Hodgkin lymphoma HISTORY OF PRESENT ILLNESS Patient is a 73 y.o. man with previous medical history significant for coronary artery disease, metastatic papillary thyroid carcinoma, and lymphoma whose hematological history may be summarized as follows: 1. Circa 2013: Diagnosed with papillary thyroid carcinoma with ijeoma metastasis. Underwent total thyroidectomy and lymphadenectomy followed by radioactive iodine treatment. 2. Circa 2014: Diagnosed with recurrent papillary thyroid carcinoma requiring repeat surgery and 2nddosage of radioactive iodine. 3. December 12, 2015: Fine-needle aspiration of left cervical lymph node shows involvement by B-cell lymphoma. Flow cytometry studies showed involvement by a CD5 negative kappa light chain restricted B-cell population which was positive for CD19, CD20, and CD22. Bone marrow biopsy done shortly after showing involvement by lymphoma. 4. 2016 to present: Observed without need for lymphoma treatment. INTERVAL HISTORY Patient arrives at the lymphoma Clinic for evaluation. He is referred to me by Dr. Wu from Endocrinology who he has seen for the management of recurrent papillary thyroid carcinoma. He reports no symptoms attributable to his lymphoma including constitutional symptoms such as fevers, chills, drenching night sweats, unintentional weight loss MEDICATIONS Reviewed. MEDICAL/SURGICAL HISTORY 1. Coronary artery disease 2. Papillary thyroid carcinoma 3. Ischemic congestive heart failure 4. Dyslipidemia 5. Asthma 6. 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 They have 3 children together. He has never smoked. Denies any current alcohol use. FAMILY HISTORY No family history of lymphoma or hematological diagnosis. REVIEW OF SYSTEMS All systems reviewed and negative except for HPI. OBJECTIVE Vitals: 03/19/19 0955 BP: 114/64 Patient Position: Sitting Pulse: 62 Temp: (!) 35.8 ??C Height: 175.3 cm Weight: 75.4 kg TempSrc: Tympanic Body surface area is 1.92 meters squared. PHYSICAL EXAM General: Unaccompanied. No acute distress. Eyes: Examined and normal. ENT: No oral lesions or thrush. Lymph: There is a large palpable lymph node on the left posterior neck measuring about 4 cm in largest dimension. Shotty lymph nodes on the right cervical chains. Bilateral axillary lymph nodes measuring about 1.5 cm each. Heart: Regular rate and rhythm, S1 and [...] DIAGNOSTICS I have reviewed the recent relevant labs, CT, ultrasound and diagnostics. No results found. No results found for this or any previous visit (from the past 72 hour(s)). ASSESSMENT / PLAN #1 Metastatic recurrent papillary thyroid carcinoma #2 B-cell non-Hodgkin lymphoma, untreated I had the opportunity to review his case at the request of Dr. Wu from Endocrinology. He presents with an indolent B-cell non-Hodgkin lymphoma found almost by accident during management of his papillary thyroid cancer. He reports that a bone marrow biopsy done outside was positive for lymphoma involvement. I would like to have the tissue reviewed here so will have him sign a release form on his way out. I will have his PET-CT scan obtained on February 15, 2019 reviewed by radiology although by looking at the pictures myself I do not see any areas concerning for high metabolic activity other than the lymph nodes in the left neck which we now know are involved by metastatic papillary thyroid carcinoma. I did not see areas concerning for histological transformation from his indolent B-cell non-Hodgkin lymphoma. Our pathologists reviewed the tissue from December 12, 2015 here and determined to be involved by a B-cell non-Hodgkin lymphoma. Although no sub typing was possible due to the scant nature of the material (fine-needle aspirate) I do not believe an excisional biopsy is required at this time based on thefact the disease as maintaining itself quiescent without treatment since 2016, a proof of concept for its indolent biology. Although he reports bone marrow involvement by the disease back in 2016 his bone marrow function seems preserved based on his most recent CBC. I do not see a reason to repeat a bone marrow biopsy at this time. To me, at this time, watchful waiting is an appropriate strategy for the management of his B-cell non-Hodgkin lymphoma. 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 I emphasized to the patient that his prior to now is to manage his papillary thyroid carcinoma. Monitoring of his indolent B-cell non-Hodgkin lymphoma may fall to the background of his medical priorities. Follow-up: Return on as needed basis. Education We discussed the diagnosis and treatment plan in detail. The patient expressed understanding of the content. No apparent learning barriers were identified; learning preferences include listening. I personally spent over half of a total 60 minutes face to face with the patient in counseling and discussion and/or coordination of care as described above. Signed by: Laura Muniz M.D. 03/19/2019 10:31 AM documented in this encounter Miscellaneous Notes Addendum Note - Yeni Xiong M.D. - 03/19/2019 10:00 AM CDT Addended by: YENI XIONG on: 03/19/2019 10:45 AM Modules accepted: Orders documented in this encounter Plan of Treatment Upcoming Encounters Date Type Specialty Care Team Description 10/11/2022 Appointment Laboratory Medicine Natasha Mullins, VY, C.N.P., M.S.N. [address] [place] [phone] (Wo rk) 10/11/2022 Ancillary Procedure Cardiovascular Disease Natasha Cramer APRN, Radha.N.P., M.S.N. [address] [place] [phone] (Wo rk) 10/11/2022 Appointment Cardiovascular Disease Natasha Mullins APRN, Radha.N.P., M.S.N. [address] [place] [phone] (Wo rk) 10/12/2022 Office Visit Cardiovascular Disease Natasha Mullins APRN, Radha.N.Franklin., M.S.N. [address] [place] [phone] (Joanie rk) documented as of this encounter Results Interpretation of Outside NM PET Scan (03/19/2019 10:51 AM CDT) Anatomical Region Laterality Modality Nuclear Medicine PET RST LOS, Nuclear Medicine ARLibby PATE, N/A Nuclear Medicine Nuclear Medicine FLA [facility] Specimen (Source) Anatomical Collection Method Collection Time [...] to thyroid carcinoma but could represent lymphoma. Yeni Muniz M.D. IMG NM PROCEDURES documented in this encounter Visit Diagnoses Diagnosis Malignant Neoplasm Of Thyroid (HCC) Malignant Neoplasm Of Thyroid (HCC) documented in this encounter Care Teams Color Adviser Relationship Specialty Start Date End Date Elsewhere, Pcp PCP - General Family Medicine 10/25/18 documented as of this encounter
--- OUTSIDE RECORDS SUMMARY | 2022-08-27 11:28 | XMS_ITS | Encounter Summary ---
:1945 Author Organization [facility] Address [address] [place] [address] Care Team Providers Name Role Phone Elsewhere, Pcp Primary Care Provider Unavailable Reason for Visit Reason Onset Date Comments Pre-visit Testing Orders 02/16/2019 Encounter Details Date Type Department Care Team Description 02/16/2019 Clinical Communication Division of Mary Ann Pre-v isit Testing Endocrinology in [place] Orders [place], [place] [address] [place] [phone] Social History Tobacco Use Types Packs/Day Years [...] or relatives? How often do you attend baptism or More than 4 times per year 10/15/2019 jain services? Do you belong to any clubs or Yes 10/15/2019 organizations such as baptism groups, unions, fraternal or athletic groups, or [...] this encounter Miscellaneous Notes Telephone Encounter - Crista Chauhan - 02/16/2019 9:19 AM CDT Patient is scheduled to see you on 02/22. Please sign pended orders. Thank you Crista NEUMANN to call pt on home # documented in this encounter Plan of Treatment Upcoming Encounters Date Type Specialty Care Team Description 10/11/2022 Appointment Laboratory Medicine Natasha Mullins APRN, C.N.Jalen, M.S.N. [address] [place] [phone] (Wo rk) 10/11/2022 Ancillary Procedure Cardiovascular Disease Natasha Cramer APRN, Radha.N.Jalen, M.S.N. [address] [place] [phone] (Wo rk) 10/11/2022 Appointment Cardiovascular Disease Natasha Mullins APRN, C.N.Franklin., M.S.N. [address] [place] [phone] (Wo rk) 10/12/2022 Office Visit Cardiovascular Disease Natasha Mullins APRN, C.N.Jalen, M.S.N. [address] [place] [phone] (Wo rk) documented as of this encounter Results (ABNORMAL) Thyroglobulin, Tumor Marker (03/01/2019 8:45 AM CDT) [facility] Time Signature Thyroglobulin 256 (H) <4.0 03/01/2019 [facility] Antibody, S IU/mL 2:10 PM CDT [facility] Thyroglobulin, 19 (H) ng/mL 03/01/2019 [facility] Tumor Marker, S 2:03 PM CDT [facility] Comment: ----REFERENCE VALUE---- Athyrotic <0.1 Intact Thyroid <=33 Thyroglobulin SEE COMMENT 03/01/2019 2:10 PM CDT [facility] Interpretation [facility] Comment: Quantitation of thyroglobulin may be [...] testing methods are immunoenzymatic assays manufactured by [employer] and performed on the [employer] DXI 800 . Values obtained from different [...] M.D. LAB BLOOD ADD-ON Performing Organization Address City/[facility] Phon e Number [facility] [address] [place] [phone] [facility] (ABNORMAL) T4 (Thyroxine), Free (03/01/2019 8:45 AM CDT) [facility] [employer] Method Time Signature T4 1.9 (H) 0.9 - 1.7 03/01/2019 [facility] (Thyroxine), ng/dL 9:41 AM CDT LABORATORIES [facility] Specimen Anatomical Collection Method Collection Time Receive d Time (Source) Location / / Volume Laterality Blood (Blood, 03/01/2019 8:45 AM 03/01/20 8:51 Venous) CDT AM CDT Yayo Reese M.D. LAB BLOOD ADD-ON Performing Organization Address City/State/[facility] Phon e Number [facility] [address] [place] [phone] [facility] (ABNORMAL) S-TSH (Thyroid-Stimulating Hormone - Sensitive) (03/01/2019 8:45 AM CDT) [facility] [employer] Method Time Signature TSH, Sensitive 0.1 (L) 0.3 - 4.2 03/01/2019 [facility] mIU/L 9:41 AM CDT LABORATORIES [facility] Specimen Anatomical Collection Method Collection Time Receive d Time (Source) Location / / Volume Laterality Blood (Blood, 03/01/2019 8:45 AM 04/18/20 19 8:51 Venous) CDT AM CDT Yayo Reese M.D. LAB BLOOD ADD-ON Performing Organization Address City/State/ZIP Code Phon e Number [facility] LABORATORIES - [address] [place], [place] [address] [facility] US Head Neck Soft Tissue (03/01/2019 8:01 [...] to lymphoproliferati ve disease. Correlate clinically. Yayo Reese M.D. IMG US PROCEDURES documented in this encounter Visit Diagnoses Diagnosis Cancer Thyroid Papillary Personal Histor y - Primary Cancer Thyroid Papillary Personal Histor y documented in this encounter Care Teams Regional Safety Manager Relationship Specialty Start Date End Date Elsewhere, Pcp PCP - General Family Medicine 10/25/18 documented as of this encounter
--- OUTSIDE RECORDS SUMMARY | 2022-08-27 11:28 | XMS_ITS | Encounter Summary ---
:1945 Author Organization [facility] Address [address] [place] [address] Care Team Providers Name Role Phone Elsewhere, Pcp Primary Care Provider Unavailable Encounter Details Date Type Department Care Team Description 03/06/2019 Clinical Communication Division of Loni Wu Endocrinology in [place], [place] [address] [place] [address] [place] [phone] Social History Tobacco Use Types Packs/Day Years [...] or relatives? How often do you attend jainism or More than 4 times per year 10/15/2019 episcopal services? Do you belong to any clubs or Yes 10/15/2019 organizations such as jainism groups, unions, fraternal or athletic groups, or school groups? How often do you attend meetings of the More than 4 times pe lupis year 10/15/2019 clubs or organizations you belong [...] Natasha Mullins APRN, C.N.P., M.S.N. [address] [place] [phone] (Wo rk) 10/11/2022 Ancillary Procedure Cardiovascular Disease Natasha Cramer APRN, C.N.P., M.S.N. [address] [place] [phone] (Wo rk) 10/11/2022 Appointment Cardiovascular Disease Natasha Mullins APRN, C.NRenetta, M.S.N. [address] [place] [phone] (Wo rk) 10/12/2022 Office Visit Cardiovascular Disease Natasha Mullins APRN, C.NRenetta, M.S.N. [address] [place] [phone] (Wo rk) documented as of this encounter Results Pathology Review of Outside Material (12/12/2015 10:16 AM PHOTOCOPYING EQUIPMENT MECHANIC) Component Value Ref Test Analysis Performed At [facility] Finomial Range Method Time Signature Material A. [id number]: Right parotid mass and left cervical lymph 03/09/2019 [facility] Received node 4:38 PM LABORATORIES ? 11 stained slides [facility] Report Saúl Leary M.D. 03/09/2019 [facility] AMANDA electronically I verify that I have examined all relevant slides/ma terials 4:38 PM LABORATORIES signed by for the specimen(s) and rendered or confirmed the diagnosi s. [facility] 03/09/2019 [facility] 4:38 PM LABORATORIES [facility] Interpretation FINAL DIAGNOSIS 03/09/2019 [facility] Right parotid mass, ultrasound-guided fine needle 4:38 PM LABORATORIES aspiration ([id number], part A; 12/12/2015): ??Negative for [facility] malignancy. [facility] Lymph node, left cervical, ultrasound-guided fine needle aspiration ([id number], part B; 12/12/2015): ??Small lymphocytes present with [...] Volume Laterality Varies 12/12/2015 10:16 03/08/2019 AM PHOTOCOPYING EQUIPMENT MECHANIC 12:20 PM CDT Narrative This result has an attachment that is no t available. Loni Wu M.D. LAB SURG PATH ORDERABLES Performing Organization Address City/State/ZIP Code Phon e Number [facility] LABORATORIES - [address] [place], [place] [address] [facility] documented in this encounter Visit Diagnoses Diagnosis Hyperlipidemia - Primary Chronic Systolic (Congestive) Heart Fail ure (HCC) Cardiomyopathy Ischemic Failure Heart (HCC) documented in this encounter Care Teams Blacksmith Assistant Relationship Specialty Start Date End Date Elsewhere, Pcp PCP - General Family Medicine 10/25/18 documented as of this encounter
--- OUTSIDE RECORDS SUMMARY | 2022-08-27 11:28 | XMS_ITS | Encounter Summary ---
:1945 Author Organization [facility] Address [address] [place] [id number] Care Team Providers Name Role Phone Elsewhere, Pcp Primary Care Provider Unavailable Reason for Referral Outpatient (Routine) - Closed Specialty Diagnoses / Procedures Referred By Contact Refer red To Contact Endocrinology Loni Wu M .D. [facility] [address] [place] [phone] Referral ID Status Reason Start Date Expiration Date Visits Requ ested Visits Authorized [id number] Closed 03/01/2019 02/29/2020 1 1 Scheduling Instructions In 2 weeks Reason for Visit Appointment Request (Routine) - Closed Specialty Diagnoses / Procedures Referred By Contact Refer red To Contact Endocrinology Referral ID Status Reason Start Date Expiration Date Visits Requ ested Visits Authorized [id number] Closed 02/16/2019 02/16/2020 1 1 Encounter Details Date Type Department Care Team Description 03/01/2019 Comprehensive Visit Division of Loni Wu t Neoplasm Of Thyroid (HCC) (Primary Dx); Endocrinology in [place] Diffuse Large B Cell Lymphoma Unspecifie d Site (HCC) [address] [place] [phone] Social History Tobacco Use Types Packs/Day Years [...] or relatives? How often do you attend adventism or More than 4 times per year 10/15/2019 buddhism services? Do you belong to any clubs or Yes 10/15/2019 organizations such as adventism groups, unions, fraternal or athletic groups, or [...] Sign Reading Time Taken Comments Blood Pressure 115/77 03/01/2019 1:07 PM CDT Pulse 70 03/01/2019 1:07 PM CDT Temperature - - Respiratory Rate - - Oxygen Saturation - - Inhaled Oxygen Concentration - - Weight 74.5 kg (164 lb 3.9 oz) 03/01/2019 1:07 PM CDT Height 176 cm (5' 9.29) 03/01/2019 1:07 PM CDT Body Mass Index 24.05 03/01/2019 1:07 PM CDT documented in this encounter Consult Notes Loni Wu M.D. - 03/01/2019 1:30 PM CDT SUBJECTIVE CHIEF COMPLAINT / REASON FOR VISIT Levi Khanna is a 73 y.o. 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 [facility] He was diagnosed with papillary thyroid cancer in December of 2013 at which time he presented with a nodule in his thyroid. A biopsy was done both of a nodule in the left mid thyroid lobe which was positive for PTC as well as a lymph node in the submandibular region that was also positive for PTC. He underwent a total thyroidectomy at [facility] by Dr. Dante Thomas and also had some lymph nodes removed. Final pathology showed multifocal PTC with a 3.5 cm PTC on the left lobe and a 9 mm tumor on the right lobe. 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 Margins were negative. There was no extrathyroidal extension. 2/4 lymph nodes were positive for metastases. It is not clear where these nodes came from. After that he received 106 mCi of radioactive iodine. Initial whole-body scan prior to the therapy showed a some uptake in the left thyroid bed as well as some left side uptake (3% of the administered dose) a post therapy scan on April 02, 2014 did not identify any additional disease. There was no evidence of distant metastases. On subsequent follow-up, in September of that year he had an ultrasound that showed some abnormal lymph nodes on the left lateral neck levels three and four that were increased in size up to 1.7 cm and a small, 11 mm nodule in the left thyroid bed that was slightly suspicious. In March of 2015, a subsequent follow-up ultrasound showed similar findings but the lymph nodes in the left lateral neck were increasing, now measuring 1.9 cm and a few more lymph nodes were noted. He apparently had a repeat biopsy which tested positive for PTC and he underwent a 2nd surgery on July 07 with a central and left lateral neck dissection. A total of 12/27 lymph nodes tested positive for PTC, eight from the central neck and for from the left lateral neck. Around October he received another dose of radioactive iodine, he believes 200 mCi but I cannot find this information. In November of 2015 he was diagnosed with B-cell lymphoma and had some flow cytometry studies confirming this diagnosis. By August of 2016 he had a repeat whole-body scan that was negative with only 0.5% uptake and no evidence of residual activity in the neck or elsewhere. A repeat whole-body scan in July of 2017 also was negative with 0.4% uptake and no evidence of disease. By July of 2017, a follow-up ultrasound showed enlarging cervical lymph nodes, which now measured, the largest 13.4 cm in greatest dimension and the 2nd largest 2.8 cm. He has apparently not received any treatment for his B-cell lymphoma as his local oncologist, Dr. Fairbanks in [place] felt that this was stable and did not warrant any treatment at the time. However his primary oncologist retired and since then two subsequent oncologist that have seen him have also retired or moved He presents here today because he has noticed that April his masses on the left lateral neck continueto increase in size. He had an ultrasound done this morning here at [facility] that shows pathologically enlarged lymph nodes on level two and five on the left side, both of this highly suspicious for metastatic PTC, with a very large cystic component, largest one on level two measures 2 x 4 x 4.1 cm and the other lymph node measures 2.1 x 3.6 x 2.8 cm. In addition a 3 x 6 x 7 mm suspicious nodule is notedin the left thyroid bed. On both lateral neck changes there are some prominent lymph nodes that do not have worrisome features for papillary thyroid cancer and may be either reactive or related to lymph oproliferative disorder Lab work from this morning indicates that his TSH is mildly suppressed at 0.1 free T4 is 1.9 and thyroglobulin is elevated at 19. Apparently this is a Level that has been gradually increasing. He denies any pain or discomfort related to his neck masses except with certain movements of his head. Past medical history 1. ??ST-elevation anterior myocardial infarction, August 2015. [...] tear with chronic right shoulder discomfort. ? REVIEW OF SYSTEMS The following systems were negative: Constitutional, Skin, Eyes, ENT, CV, Respiratory, GI, , Hematologic, Musculoskeletal, Neuro, Psych OBJECTIVE PHYSICAL EXAM Physical Exam Vital signs height 176 cm; weight 74.5 kg; pulse 70; blood pressure 115/77 Well-appearing man in no acute distress. General: Alert and oriented, in no acute distress. Eyes: Normal pupils, conjunctivae and sclera, normal extraocular movements. Thyroid: Healed thyroidectomy scar extending into the left upper lateral neck.. No palpable residualthyroid tissue In the left upper lateral neck around level 2-3 there is bulky palpable adenopathy. Measuring approximately 3-4 cm Heart: Regular, no murmurs. Lungs: Clear to auscultation bilaterally. Abdomen: Benign without masses or organomegaly. Extremities: No edema, clubbing or cyanosis. Recent Results (from the past 24 hour(s)) S-TSH (Thyroid-Stimulating Hormone - Sensitive) Collection Time: 03/01/19 8:45 AM Result Value TSH, Sensitive, S 0.1 (L) T4 (Thyroxine), Free Collection Time: 03/01/19 8:45 AM Result Value T4 (Thyroxine), Free, S 1.9 (H) Thyroglobulin, Tumor Marker Collection Time: 03/01/19 8:45 AM Result Value Thyroglobulin Antibody, S 256 (H) Thyroglobulin, Tumor Marker, S 19 (H) Thyroglobulin Interpretation SEE COMMENT ASSESSMENT / PLAN #1 Papillary thyroid cancer metastatic to left lateral neck ([id number]) 3.5 cm primary tumor, status post thyroidectomy with central neck dissection in January 2014 #2 Status post radioactive iodine ablation (100 mCi, elsewhere) #3 Status post repeat central and left lateral neck exploration with 11/09 positive lymph nodes fromcentral and left lateral neck in June of 2015 #4 Status post 2nd dose of radioactive iodine (presumably 200 mCi) with two subsequent posttherapy scans that were negative #5 B-cell lymphoma diagnosed November 2015 #6 Enlarging left lateral neck lymphadenopathy with increasing thyroglobulin and cystic changes. The situations rather complex. I suspect the abnormal lymph nodes with large cystic changes seen in the left lateral neck are related to metastatic papillary thyroid cancer. However what complicates the diagnosis is that he has extensive lymphadenopathy and many of these lymph nodes, particularly doseon the right side of the neck may be related to the lymphoma, rather than the papillary thyroid cancer. At this point I would like to get 1st the pathology slides from his previous biopsy in November 2015.I would also like to repeat FNA from the most suspicious lymph nodes in the left lateral neck and also from at least one cervical lymph node on the right lateral neck. We will obtain on both sides boththyroglobulin as well as a core biopsy for flow cytometry. I suspect the cystic lymph nodes on the left are related to papillary thyroid cancer while the prominent but otherwise nonsuspicious lymph nodes on the right side may relate to his B-cell lymphoma. It is important to make this clarification since it would have an impact on treatment. Because he is currently on Plavix and aspirin, I have asked him to discontinue the Plavix for five days so that we can proceed with the biopsies including the core samples next week on Tuesday. I have checked with his health service coordinator who believes it would be safe for him to discontinue Plavix temporarily. Because flow cytometry studies can take a little while, I will plan to see him back in about two weeks. In the meantime he will remain on his current dose of levothyroxine. I discussed my impressions, plan and recommendations with patient. He expressed understanding and agrees with this plan. documented in this encounter Plan of Treatment Upcoming Encounters Date Type Specialty Care Team Description 10/11/2022 Appointment Laboratory Medicine Natasha Mullins APRN, Radha.N.PCarmine, M.S.N. [address] [place] [phone] ([place]anie velázquez) 10/11/2022 Ancillary Procedure Cardiovascular Disease Natasha Cramer APRN, Radha.N.P., M.S.N. [address] [place] [phone] (Joanie velázquez) 10/11/2022 Appointment Cardiovascular Disease Natasha Mullins APRN, C.N.P., M.S.N. [address] [place] [phone] (Joanie velázquez) 10/12/2022 Office Visit Cardiovascular Disease Natasha Mullins APRN, C.N.P., M.S.N. [address] [place] [phone] (Joanie velázquez) Scheduled Referrals Name Type Priority Associated Order Schedule Diagnoses Endocrinology office Outpatient Referral Routine Expected: visit (clinic) 03/01/2019 (Approximate), Expires: 03/01/2022 documented as of this encounter Results US Lymph Node Biopsy [...] NR Loni Wu M.D. IMG US PROCEDURES Prothrombin Time (PT/INR) (03/07/2019 8:01 AM CDT) [facility] Method Time Signature Prothrombin 12.1 9.4 - 12.5 03/07/2019 [facility] Time, P sec 8:46 AM CDT LABORATORIES [facility] INR 1.1 0.9 - 1.1 03/07/2019 [facility] 8:46 AM CDT LABORATORIES - [facility] Comment: ----ADDITIONAL INFORMATION---- Standard intensity warfarin therapeutic range: 2.0 to 3.0 ?? High intensity warfarin therapeutic rang e: 2.5 to 3.5 Specimen Anatomical Collection Method Collection Time Receive d Time (Source) Location / / Volume Laterality Blood (Blood, 03/07/2019 8:01 AM 03/07/20 19 8:24 Venous) CDT AM CDT Loni Wu M.D. LAB BLOOD ADD-ON Performing Organization Address City/State/ZIP Code Phon e Number [facility] LABORATORIES - [address] [place] [phone] [facility] (ABNORMAL) Comprehensive Metabolic Panel (03/07/2019 8:01 AM CDT) [facility] Method Time Signature Potassium, S 4.7 3.6 - 5.2 03/07/2019 [facility] mmol/L 10:35 AM CDT LABORATORIES - [facility] Sodium, S 132 (L) 135 - 145 03/07/2019 [facility] mmol/L 10:35 AM CDT [facility]ATORIES [facility] Chloride, S 95 (L) 98 - 107 03/07/2019 [facility] mmol/L 10:35 AM CDT LABORATORIES - [facility] Bicarbonate, S 25 22 - 29 03/07/2019 [facility] mmol/L 10:35 AM CDT LABORATORIES - [facility] Anion Gap 12 7 - 15 03/07/2019 [facility] 10:35 AM CDT LABORATORIES - [facility] BUN (Blood Urea 18 8 - 24 03/07/2019 [facility] Nitrogen), S mg/dL 10:35 AM CDT LABORATORIES - [facility] Creatinine 0.89 0.74 - 03/07/2019 [facility] 1.35 10:35 AM CDT LABORATORIES - mg/dL [facility] eGFR-Non 84 >=60 03/07/2019 [facility] Black/ mL/min/BS 10:35 AM CDT LABORATORIES - [place] [facility] Comment: ----ADDITIONAL INFORMATION---- Estimated GFR calculated using the 2009 CKD_EPI creatinine equation. eGFR-Black/ >90 >=60 mL/min/BSA 03/07/2019 10:3 5 [facility] [place] CDT LABORATORIES - [facility] Comment: ----ADDITIONAL INFORMATION---- Estimated GFR calculated using the 2009 CKD_EPI creatinine equation. Calcium, Total, S 9.0 8.8 - 10.2 03/07/2019 10:35 [facility] mg/dL AM CDT [facility]ATORIES [facility] Glucose, S 107 70 - 140 mg/dL 03/07/2019 10:[address] [facility] AM CDT LAB[facility]ATORIES [facility] Protein, Total, S 6.9 6.3 - 7.9 g/dL 03/07/2019 10:35 [facility] AM CDT [facility]IES [facility] Albumin, S 4.1 3.5 - 5.0 g/dL 03/07/2019 10:35 [facility] AM CDT [facility] Aspartate 23 8 - 48 U/L 03/07/2019 10:35 [facility] Aminotransferase (AST), S AM CDT LABO RATORIES [facility] Alkaline Phosphatase, S 94 40 - 129 U/L 03/07/2019 10 :35 [facility] AM CDT [facility]IES [facility] Alanine Aminotransferase 18 7 - 55 U/L 03/07/2019 10: 35 [facility] (ALT), S AM CDT LAB[facility]IES [facility] Bilirubin, Total, S 0.4 <=1.2 mg/dL 03/07/2019 10:35 [facility] AM CDT LABORATORIES - [facility] Specimen Anatomical Collection Method Collection Time Receive d Time (Source) Location / / Volume Laterality Blood (Blood, 03/07/2019 8:01 AM 03/07/20 19 8:24 Venous) CDT AM CDT Loni Wu M.D. LAB BLOOD ADD-ON Performing Organization Address City/State/ZIP Code Phon e Number [facility] LABORATORIES - [address] [place], [place] [address] [facility] 25-Hydroxyvitamin D2 and D3 (03/07/2019 8:01 AM CDT) P athologist Signature 25-Hydroxy D2 <4.0 ng/mL 03/08/2019 [facility] 11:48 AM CDT [facility] 25-Hydroxy D3 48 ng/mL 03/08/2019 [facility] 11:48 AM CDT [facility] 25-Hydroxy D 48 ng/mL 03/08/2019 [facility] Total 11:48 AM CDT [facility] Comment: ----REFERENCE VALUE---- 25-HYDROXY D TOTAL (D2+D3) Optimum level s in the healthy population are 20-50, patients with bone disease may benefit from higher levels within this r kahlil. ----ADDITIONAL INFORMATION---- This test was developed and its performa nce characteristics determined by [facility] in a manner consistent with CLIA requirements. This test has not been cleared or approved by the [place] d and Drug Administration. Specimen Anatomical Collection Method Collection Time Receive d Time (Source) Location / / Volume Laterality Blood (Blood, 03/07/2019 8:01 AM 03/07/20 19 Venous) CDT 10:33 AM CDT Loni Wu M.D. LAB BLOOD ADD-ON Performing Organization Address City/State/ZIP Code Phon e Number [facility] [address] [place], [place] [address] [facility] documented in this encounter Visit Diagnoses Diagnosis Malignant Neoplasm Of Thyroid (HCC) - Pr imary Diffuse Large B Cell Lymphoma Unspecifie d Site (HCC) Malignant Neoplasm Of Thyroid (HCC) Diffuse Large B Cell Lymphoma Unspecifie d Site (HCC) documented in this encounter Care Teams Hazmat Tanker Driver Relationship Specialty Start Date End Date Elsewhere, Pcp PCP - General Family Medicine 10/25/18 documented as of this encounter
--- OUTSIDE RECORDS SUMMARY | 2022-08-27 11:28 | XMS_ITS | Encounter Summary ---
:1945 Author Organization [facility] Address [address] [place] [id number] Care Team Providers Name Role Phone Elsewhere, Pcp Primary Care Provider Unavailable Reason for Referral Outpatient (Routine) - Closed Specialty Diagnoses / Procedures Referred By Contact Refer red To Contact Otorhinolaryngology Diagnoses Malignant Neoplasm Of Thyroid (HCC) Loni Wu [place] M.D. [address] [place] [phone] Referral ID Status Reason Start Date Expiration Date Visits Requ ested Visits Authorized [id number] Closed 03/16/2019 03/15/2020 [address] Carr ONLY Outpatient (Routine) - Closed Specialty Diagnoses / Procedures Referred By Contact Refer red To Contact Hematology Diagnoses Malignant Neoplasm Of Thyroid (HCC) Loni Wu M.D. [address] [phone] Referral ID Status Reason Start Date Expiration Date Visits Requ ested Visits Authorized [id number] Closed 03/16/2019 03/15/2020 1 1 Reason for Visit Reason Comments Return Visit Outpatient (Routine) - Closed Specialty Diagnoses / Procedures Referred By Contact Refer red To Contact Endocrinology Loni Wu M .D. [address] [place] [phone] Referral ID Status Reason Start Date Expiration Date Visits Requ ested Visits Authorized [id number] Closed 03/01/2019 02/29/2020 1 1 Encounter Details Date Type Department Care Team Description 03/16/2019 Office Visit Division of Loni Wu Malignant Neopl asm Of Thyroid (HCC) (Primary Dx); Endocrinology in [place] Unspecified B Cell Lymphoma Lymph Nodes Of Multiple Sites (HCC) [place], [place] [address] [facility] [address] [place] [phone] Social History Tobacco Use Types Packs/Day Years [...] or relatives? How often do you attend mormon or More than 4 times per year 10/15/2019 yarsanism services? Do you belong to any clubs or Yes 10/15/2019 organizations such as mormon groups, unions, fraternal or athletic groups, or [...] encounter Progress Notes Loni Wu M.D. - 03/16/2019 11:00 AM CDT SUBJECTIVE CHIEF COMPLAINT / REASON FOR VISIT Levi Khanna is a 73 y.o. male who presents for follow up of papillary thyroid cancer. HISTORY OF PRESENT ILLNESS since his last visit, Mr. Khanna underwent ultrasound-guided FNA of suspicious lymph nodes on the left lateral neck and some enlarged lymph nodes on the right neck The large highly suspicious lymph node in the left side came back positive for PTC, as suspected. The lymph nodes on the right side, although enlarge are more consistent with his underlying known B-cell lymphoma. The biopsy confirm that. He has been following with a local oncologist in [place] but at this time would like to get 2nd opinion here. He needs to undergo surgery with a left lateral neck dissection to remove the very large metastatic lymph nodes. there is also a small nodule in the left thyroid bed that is indeterminate but suspicious for a possible small focus of PTC. This may need to be removed if found during surgery. Currently he feels well and voices no acute concerns. He remains on his 200 mcg of levothyroxine. Hehas no symptoms of shortness of breath or edema that would suggest that he has decompensated congestive heart failure. OBJECTIVE PHYSICAL EXAM Physical Exam ASSESSMENT / PLAN #1 Malignant Neoplasm Of Thyroid (HCC) I will arrange for him to be seen by Dr. Carr in ENT. He will need a left lateral neck dissection. Prior to this surgery I would like for him to see cardiology to make sure he is in optimal conditioncardiac otoole to undergo the surgery. #2 Low-grade B-cell lymphoma I would also like for him to visit with our colleagues in Oncology/hematology for assessment and recommendations regarding his low-grade B-cell lymphoma. Also would like to make sure that he would be okay to proceed with the necessary left lateral neck surgery at this time. I discussed with him that I would like to see him back after he has had neck surgery. Will need to follow up with laboratory test and subsequently ultrasound. I will request follow-up after reviewing final pathology from his metastatic PTC documented in this encounter Plan of Treatment Upcoming Encounters Date Type Specialty Care Team Description 10/11/2022 Appointment Laboratory Medicine Natasha Mullins APRN, C.N.P., M.S.N. [address] [place] [phone] (Joanie velázquez) 10/11/2022 Ancillary Procedure Cardiovascular Disease Natasha Cramer APRN, Radha.N.P., M.S.N. [address] [place] [phone] (Joanie velázquez) 10/11/2022 Appointment Cardiovascular Disease Natasha Mullins APRN, Radha.N.P., M.S.N. [address] [place] [phone] (Joanie velázquez) 10/12/2022 Office Visit Cardiovascular Disease Natasha Mullins APRN, C.N.P., M.S.N. 200 [place] [phone] (Wo rk) Scheduled Referrals Name Type Priority Associated Order Schedule Diagnoses Hematology - lymphoma (bx Outpatient Routine Malignant Ex pected: proven) consult (clinic) Referral Neoplasm Of 01/2019 Thyroid (HCC) (Approximate), Expires: 03/16/2022 Otorhinolaryngology - Head Outpatient Routine Malignant E xpected: and neck surgery consult Referral Neoplasm Of 01/2019 (clinic) Thyroid (HCC) (Approximate), Expires: 03/16/2022 documented as of this encounter Visit Diagnoses Diagnosis Malignant Neoplasm Of Thyroid (HCC) - Pr imary Unspecified B Cell Lymphoma Lymph Nodes Of Multiple Sites (HCC) documented in this encounter Care Teams Landcare Officer Relationship Specialty Start Date End Date Elsewhere, Pcp PCP - General Family Medicine 10/25/18 documented as of this encounter
--- OUTSIDE RECORDS SUMMARY | 2022-08-27 11:28 | XMS_ITS | Encounter Summary ---
:1945 Author Organization [facility] Address [address] [place] [phone] Care Team Providers Name Role Phone Unavailable Primary Care Provider Unavailable Reason for Referral Outpatient (Routine) - Closed Specialty Diagnoses / Procedures Referred By Contact Refer red To Contact Diagnoses Failure Heart (HCC) Chai Fagan [facility] Procedures ECG 12 Lead MI EKG 12 LEAD TRACE ONLY MI EKG I&R ONLY Justin MCCLELLAN, M.S.N. [address] [place] [phone] Referral ID Status Reason Start Date Expiration Date Visits Requ ested Visits Authorized [id number] Closed 09/19/2018 09/19/2019 1 1 utpatient (Routine) - Closed Specialty Diagnoses / Procedures Referred By Contact Refer red To Contact Diagnoses Failure Heart (HCC) hCai Fagan [facility] Procedures Echo Transthoracic (TTE) Justin MCCLELLAN, M.S.N. [address] [place] [phone] Referral ID Status Reason Start Date Expiration Date Visits Requ ested Visits Authorized [id number] Closed 09/19/2018 09/19/2019 1 1 CLEANING MACHINE FEEDER Reason for Visit Reason Onset Date Comments Pre-visit Testing Orders 09/18/2018 Encounter Details Date Type Department Care Team Description 09/18/2018 Clinical Department of Chai Pre-visit Test ing Communication Cardiovascular Natasha Fagan, Orders Medicine in [place] M.S.N. [address] [facility] [address] [place] [phone] Social History Tobacco Use Types Packs/Day Years [...] More than 4 times per year 10/15/2019 congregational services? Do you belong to any clubs [...] APRN, C.N.P., M.S.N. [address] [place] [phone] (Joanie velázquez) 10/11/2022 Ancillary Procedure Cardiovascular Disease Natasha Cramer APRN, Radha.N.P., M.S.N. [address] [place] [phone] (Joanie velázquez) 10/11/2022 Appointment Cardiovascular Disease Natasha Mullins APRN, Radha.N.P., M.S.N. [address] [place] [phone] (Joanie velázquez) 10/12/2022 Office Visit Cardiovascular Disease Natasha Mullins APRN, C.N.P., M.S.N. 200 [facility] [place] [phone] (Wo rk) documented as of this encounter Results ECG 12 Lead (10/25/2018 10:49 AM STEM CLEANING MACHINE FEEDER) P athologist Signature Ventricular Rate 69 BPM MUSE ECG/Min MI Interval 186 ms MUSE QRSD Interval 154 ms MUSE QT Interval 420 ms MUSE QTC Interval 450 ms MUSE P [place] 63 degrees MUSE R [place] -55 degrees MUSE T Wave [place] 40 degrees MUSE Specimen Anatomical Collection Method Collection Time Receive d Time (Source) Location / / Volume Laterality 10/25/2018 10:49 10/25/2018 AM STEM CLEANING MACHINE FEEDER 10:55 AM STEM CLEANING MACHINE FEEDER Impressions MUSE - 10/25/2018 10:55 AM STEM CLEANING MACHINE FEEDER Sinus rhythm Premature ventricular complexes 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 Procedure Note Varinder Tomlin M.D., Ph.D. 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 ECG ORDERA BLES Performing Organization Address City/State/ZIP Code Phon e Number MUSE MUSE NA (TTE) 2D ECHO DOPPLER COLOR (10/25/2018 10:03 AM STEM CLEANING MACHINE FEEDER) Patholo gist Method Time Signature Ejection Fraction 50 MC CV EIMS Mid-Ascending Aorta 39 MC CV EIMS Wall Motion Score 1.69 MC CV EIMS Index LV Mass Index 84 MC CV EIMS LV End-Diastolic 51 MC CV EIMS Diameter LV End-Systolic 37 MC CV EIMS Diameter MV E Velocity 0.6 MC CV EIMS MV A Velocity 0.9 MC CV EIMS MV E/A 0.67 MC CV EIMS MV e' Velocity 0.05 MC CV EIMS Medial MV e' Velocity 0.06 MC CV EIMS Lateral MV E/e' Medial 12.0 MC CV EIMS MV E/e' Lateral 10.0 MC CV EIMS Left ventricular 41 MC CV EIMS stroke volume index Cardiac Output 5.29 MC CV EIMS Cardiac Index 2.73 MC CV EIMS LV Interventricular 9 MC CV EIMS Septal Wall Thickness LV Posterior Wall 9 MC CV EIMS Thickness LV Relative Wall 35 MC CV EIMS Thickness RV 4-Chamber Basal 46 MC CV EIMS Diameter RV 4-Chamber Mid 33 MC CV EIMS Diameter RV 4-Chamber Length 94 MC CV EIMS Tricuspid Annular S? 0.12 MC CV EIMS TR Vmax 2.40 MC CV EIMS RA Pressure 5 MC CV EIMS RV Systolic Pressure 28 MC CV EIM S AV mean gradient 8 MC CV EIMS Aortic valve area 2.26 MC CV EIMS Aortic Valve 0.54 MC CV EIMS Dimensionless Index LA Volume Index 40 MC CV EIMS WMSI At Rest 1.69 MC CV EIMS WMSI At Peak Stress 1.69 MC CV EIMS Anatomical Region Laterality Modality Echocardiography Specimen (Source) Anatomical Collection Method Collection Time Re ceived Time Location / / Volume Laterality 10/25/2018 9:17 AM STEM CLEANING MACHINE FEEDER Narrative 10/25/2018 10:32 AM STEM CLEANING MACHINE FEEDER This result has an attachment that is no t available. See PDF For Result Procedure Note Fazal Travis M.D. - 10/25/2018Format ting of this note might be different from the original. See PDF For Result Natasha Fagan APRN, C.N.P., M.S.N. CV ECHO MI OCEDURES DX Chest AP or PA and Lateral 2 Views (10/25/2018 7:28 AM STEM CLEANING MACHINE FEEDER) Anatomical Region Laterality Modality Chest, Thoracic RST LOS, Thoracic ARZ LOS, Thoracic N/A Digital Radiography FLA LOS Specimen (Source) Anatomical Collection Method Collection Time Re ceived Time Location / / Volume Laterality 10/25/2018 8:09 AM STEM CLEANING MACHINE FEEDER Impressions 10/25/2018 8:10 AM STEM CLEANING MACHINE FEEDER IMPRESSION: ??Tortuous aorta. Slight scarring left base. Chest otherwise negative. No change since 10/14/2016. Narrative 10/25/2018 8:10 AM STEM CLEANING MACHINE FEEDER EXAM: ??DX CHEST AP OR PA AND LATERAL 2 VIEWS Procedure Note Dashawn Morataya M.D. - 10/25/2018Format ting of this note might be different from the original. EXAM: DX CHEST AP OR PA AND LATERAL 2 EWS IMPRESSION: Tortuous aorta. Slight scarr ing left base. Chest otherwise negative. No change since 10/14/2016. Radha Eastman APRN.NRenetta, M.S.N. IMG DIAGNO STIC IMAGING PROCEDURES (ABNORMAL) Lipid Panel (10/25/2018 6:51 AM STEM CLEANING MACHINE FEEDER) [facility] Method Time Signature Cholesterol, 202 (H) mg/dL 10/25/2018 [facility] Total 7:56 AM [facility] Comment: ----REFERENCE VALUE---- Desirable: < 200 Borderline high: 200 - 239 High: > or = 240 Triglycerides 64 mg/dL 10/25/2018 7:56 AM [facility] Comment: ----REFERENCE VALUE---- Normal: <150 Borderline high: 150-199 High: 200-499 Very high: > or =500 Cholesterol, HDL, S 77 >=40 mg/dL 10/25/2018 7:56 AM STEM CLEANING MACHINE FEEDER [facility] Calculated LDL 112 mg/dL 10/25/2018 7:56 AM STEM CLEANING MACHINE FEEDER [facility] Comment: ----REFERENCE VALUE---- Desirable: <100 Above Desirable: 100-129 Borderline high: 130-159 High: 160-189 Very high: > or =190 Cholesterol, Non-HDL, 125 mg/dL 10/25/2018 7:5 6 AM STEM CLEANING MACHINE FEEDER [facility] [place] [facility] Comment: ----REFERENCE VALUE---- Desirable: <130 Above Desirable: 130-159 Borderline high: 160-189 High: 190-219 Very high: > or =220 Specimen Anatomical Collection Method Collection Time Receive d Time (Source) Location / / Volume Laterality Blood (Blood, 10/25/2018 6:51 AM 10/25/20 18 7:13 Venous) STEM CLEANING MACHINE FEEDER AM STEM CLEANING MACHINE FEEDER Radha Eastman APRN.N.P., M.S.N. LAB BLOOD ADD-ON Performing Organization Address City/[facility]/ZIP Code Phon e Number [facility] LABORATORIES - [address] [place] [address] [facility] (ABNORMAL) S-TSH (Thyroid-Stimulating Hormone - Sensitive) (10/25/2018 6:51 AM STEM CLEANING MACHINE FEEDER) [facility] Method Time Signature TSH, Sensitive 0.2 (L) 0.3 - 4.2 10/25/2018 [facility] mIU/L 7:56 AM STEM CLEANING MACHINE FEEDER LABORATORIES - [facility] Specimen Anatomical Collection Method Collection Time Receive d Time (Source) Location / / Volume Laterality Blood (Blood, 10/25/2018 6:51 AM 10/25/20 18 7:13 Venous) STEM CLEANING MACHINE FEEDER AM STEM CLEANING MACHINE FEEDER Natasha Fagan APRN, C.N.P., M.S.N. LAB BLOOD ADD-ON Performing Organization Address City/[facility]/ZIP Code Phon e Number [facility] LABORATORIES - [address] [place] [address] [facility] AST (Aspartate Aminotransferase) (10/25/2018 6:51 AM STEM CLEANING MACHINE FEEDER) [facility] Method Time Signature Aspartate 27 8 - 48 10/25/2018 [facility] Aminotransferase U/L 7:56 AM STEM CLEANING MACHINE FEEDER LABORATORIE S - (AST), [facility] Specimen Anatomical Collection Method Collection Time Receive d Time (Source) Location / / Volume Laterality Blood (Blood, 10/25/2018 6:51 AM 10/25/20 18 7:13 Venous) STEM CLEANING MACHINE FEEDER AM STEM CLEANING MACHINE FEEDER Natasha Fagan APRN, C.N.P., M.S.N. LAB BLOOD ADD-ON Performing Organization Address City/[facility] Code Phon e Number [facility] LABORATORIES - [address] [place] [address] [facility] BUN (Blood Urea Nitrogen) (10/25/2018 6:51 AM STEM CLEANING MACHINE FEEDER) athologist Signature BUN (Blood 23 8 - 24 10/25/2018 [facility] Urea mg/dL 7:56 AM STEM CLEANING MACHINE FEEDER LABORATORIES - Nitrogen), [facility] Specimen Anatomical Collection Method Collection Time Receive d Time (Source) Location / / Volume Laterality Blood (Blood, 10/25/2018 6:51 AM 10/25/20 18 7:13 Venous) STEM CLEANING MACHINE FEEDER AM STEM CLEANING MACHINE FEEDER Natasha Fagan APRN, C.N.P., M.S.N. LAB BLOOD ADD-ON Performing Organization Address City/State/ZIP Code Phon e Number [facility] LABORATORIES - [address] [place] [address] [facility] Creatinine with Estimated GFR (10/25/2018 6:51 AM STEM CLEANING MACHINE FEEDER) Analysis Performed At Patho logist Time Signature Creatinine 0.88 0.74 - 10/25/2018 [facility] 1.35 mg/dL 7:56 AM STEM CLEANING MACHINE FEEDER LABORATORIES - [facility] eGFR-Non 84 >=60 10/25/2018 [facility] Black/ mL/min/BSA 7:56 AM STEM CLEANING MACHINE FEEDER LABORATORIES - [facility] Comment: ----ADDITIONAL INFORMATION---- Estimated GFR calculated using the 2009 CKD_EPI creatinine equation. eGFR-Black/ >90 >=60 mL/min/BSA 10/25/2018 7:56 [facility] Trinidadian AM STEM CLEANING MACHINE FEEDER LABORATORIES - [facility] Comment: ----ADDITIONAL INFORMATION---- Estimated GFR calculated using the 2009 CKD_EPI creatinine equation. Specimen Anatomical Collection Method Collection Time Receive d Time (Source) Location / / Volume Laterality Blood (Blood, 10/25/2018 6:51 AM 10/25/20 18 7:13 Venous) STEM CLEANING MACHINE FEEDER AM STEM CLEANING MACHINE FEEDER Danny Eastman APRNNLibrado., M.S.N. LAB BLOOD ADD-ON Performing Organization Address City/[facility]/ZIP Code Phon e Number [facility] LABORATORIES - 200 [place], [place] [address] [facility] Potassium (10/25/2018 6:51 AM STEM CLEANING MACHINE FEEDER) P athologist Signature Potassium, S 4.6 3.6 - 5.2 10/25/2018 [facility] mmol/L 7:56 AM STEM CLEANING MACHINE FEEDER LABORATORIES - [facility] Specimen Anatomical Collection Method Collection Time Receive d Time (Source) Location / / Volume Laterality Blood (Blood, 10/25/2018 6:51 AM 10/25/20 18 7:13 Venous) STEM CLEANING MACHINE FEEDER AM STEM CLEANING MACHINE FEEDER Danny Eastman APRNNCarmineP., M.S.N. LAB BLOOD ADD-ON Performing Organization Address City/State/ZIP Code Phon e Number [facility] LABORATORIES - [address] [place] [address] [facility] (ABNORMAL) Sodium (10/25/2018 6:51 AM STEM CLEANING MACHINE FEEDER) P athologist Signature Sodium, S 133 (L) 135 - 145 10/25/2018 [facility] mmol/L 7:56 AM STEM CLEANING MACHINE FEEDER LABORATORIES [facility] Specimen Anatomical Collection Method Collection Time Receive d Time (Source) Location / / Volume Laterality Blood (Blood, 10/25/2018 6:51 AM 10/25/20 18 7:13 Venous) STEM CLEANING MACHINE FEEDER AM STEM CLEANING MACHINE FEEDER Natasha Fagan APRN, C.N.P., M.S.N. LAB BLOOD ADD-ON Performing Organization Address City/State/ZIP Code Phon e Number [facility]ATORIES - [address] [place] [address] [facility] CBC without Differential (10/25/2018 6:51 AM STEM CLEANING MACHINE FEEDER) Patholo gist Method Time Signature Hemoglobin 14.1 13.2 - 10/25/2018 [facility] 16.6 g/dL 7:36 AM STEM CLEANING MACHINE FEEDER LABORATORIES - [facility] Hematocrit 41.6 38.3 - 10/25/2018 [facility] 48.6 % 7:36 AM STEM CLEANING MACHINE FEEDER LABORATORIES - [facility] Erythrocytes 4.48 4.35 - 10/25/2018 [facility] 5.65 7:36 AM STEM CLEANING MACHINE FEEDER LABORATORIES - x10(12)/L [facility] MCV 92.9 78.2 - 10/25/2018 [facility] 97.9 fL 7:36 AM STEM CLEANING MACHINE FEEDER LABORATORIES [facility] RBC Distrib Width 13.3 11.8 - 10/25/2018 [facility] 14.5 % 7:36 AM STEM CLEANING MACHINE FEEDER LABORATORIES [facility] Platelet Count 205 135 - 317 10/25/2018 [facility] x10(9)/L 7:36 AM STEM CLEANING MACHINE FEEDER LABORATORIES - [facility] Leukocytes 5.4 3.4 - 9.6 10/25/2018 [facility] x10(9)/L 7:36 AM STEM CLEANING MACHINE FEEDER [facility] Specimen Anatomical Collection Method Collection Time Receive d Time (Source) Location / / Volume Laterality Blood (Blood, 10/25/2018 6:51 AM 10/25/20 18 7:13 Venous) STEM CLEANING MACHINE FEEDER AM STEM CLEANING MACHINE FEEDER Danny Eastman APRNNRenetta, M.S.N. LAB BLOOD ADD-ON Performing Organization Address City/State/ZIP Code Phon e Number [facility] LABORATORIES - [address] [place], [place] [address] [facility] documented in this encounter Visit Diagnoses Diagnosis Failure Heart (HCC) - Primary Failure Heart (HCC) Failure Heart (HCC) documented in this encounter
--- OUTSIDE RECORDS SUMMARY | 2022-08-27 11:28 | XMS_ITS | Encounter Summary ---
:1945 Author Organization [facility] Address [address] [place] [address] Care Team Providers Name Role Phone Elsewhere, Pcp Primary Care Provider Unavailable Reason for Referral Outpatient (Routine) - Closed Specialty Diagnoses / Procedures Referred By Contact Refer red To Contact Diagnoses Failure [facility]) [facility] Transthoracic (TTE) Justin MCCLELLAN, M.S.N. [address] [place] [phone] Referral ID Status Reason Start Date Expiration Date Visits Requ ested Visits Authorized [id number] Closed 09/19/2018 09/19/2019 1 1 ING ASSISTANT Reason for Visit Outpatient (Routine) - Closed Specialty Diagnoses / Procedures Referred By Contact Refer red To Contact Diagnoses Failure Heart (HCC) [facility] Procedures Echo Transthoracic (TTE) Justin MCCLELLAN, M.S.N. [address] [place] [phone] Referral ID Status Reason Start Date Expiration Date Visits Requ ested Visits Authorized [id number] Closed 09/19/2018 09/19/2019 1 1 Encounter Details Date Type Department Care Team Description 10/25/2018 Hospital Department of Bry Mullins ([facility]) Encounter Cardiovascular VY Kaur, Diseases in [place], C.N.P., M .S.N. [place] [address] [facility] [address] [place] [phone] Social History Tobacco Use Types Packs/Day Years [...] More than 4 times per year 10/15/2019 hoahaoism services? Do you belong to any clubs [...] Natasha Mullins APRN, C.N.P., M.S.N. [address] [place] [phone] (Joanie velázquez) 10/11/2022 Ancillary Procedure Cardiovascular Disease Natasha Cramer APRN, C.N.P., M.S.N. [address] [place] [phone] (Joanie velázquez) 10/11/2022 Appointment Cardiovascular Disease Natasha Mullins APRN, C.NRenetta, M.S.N. [address] [place] [phone] (Wo rk) 10/12/2022 Office Visit Cardiovascular Disease Natasha Mullins APRN, C.NLibrado., M.S.N. [address] [place] [phone] (Joanie rk) documented as of this encounter Procedures Procedure Name Priority Date/Time Associated Diagnosis Comme nts (TTE) 2D ECHO Routine 10/25/2018 10:03 AM Failure Heart (HCC) Results for this DOPPLER COLOR HOUSING ASSISTANT procedure are in the results section. documented in this encounter Results (TTE) 2D ECHO DOPPLER COLOR (10/25/2018 10:03 AM HOUSING ASSISTANT) [facility] Method Time Signature Ejection Fraction 50 MC [...] / / Volume Laterality 10/25/2018 9:17 AM HOUSING ASSISTANT Narrative 10/25/2018 10:32 AM HOUSING ASSISTANT This result has an attachment that is no t available. See PDF For Result Procedure Note Fazal Travis M.D. - 10/25/2018Format ting of this note might be different from the original. See PDF For Result Natasha Fagan APRN, C.N.P., M.S.N. CV ECHO LA OCEDURES documented in this encounter Visit Diagnoses Diagnosis Failure Heart (HCC) documented in this encounter Care Teams [employer] Commissioner Relationship Specialty Start Date End Date Elsewhere, Pcp PCP - General Family Medicine 10/25/18 documented as of this encounter
--- OUTSIDE RECORDS SUMMARY | 2022-08-27 11:29 | XMS_ITS | Encounter Summary ---
:1945 Author Organization [facility] Address [address] [place] [address] Care Team Providers Name Role Phone Unavailable Primary Care Provider Unavailable Encounter Details Date Type Department Care Team Description 11/14/2009 Hospital Encounter HX NO MAPPING Provider, Historical Social History Tobacco Use Types Packs/Day Years Used Date Smoking Tobacco: Never Assessed Alcohol Habits Answer Date Recorded How often [...] Medicine Natasha Mullins APRN, Radha.N.[place]., M.S.N. [address] [place] [address] [phone] (Joanie velázquez) 10/11/2022 Ancillary Procedure Cardiovascular Disease Natasha Cramer APRN, Radha.N.P., M.S.N. [address] [place] [address] [phone] (Joanie velázquez) 10/11/2022 Appointment Cardiovascular Disease Natasha Mullins APRN, Radha.N.P., M.S.N. [address] [place] [phone] (Wo rk) 10/12/2022 Office Visit Cardiovascular Disease Natasha Mullins APRN, C.N.P., M.S.N. [address] [place] [phone] (Wo rk) documented as of this encounter Visit Diagnoses Not on filedocumented in this encounter
--- OUTSIDE RECORDS SUMMARY | 2022-08-27 11:29 | XMS_ITS | Encounter Summary ---
:1945 Author Organization [facility] Address [address] [place] [address] Care Team Providers Name Role Phone Unavailable Primary Care Provider Unavailable Encounter Details Date Type Department Care Team Description 09/08/2015 - Hospital Encounter HX [facility] Provider, Histor ical 12/24/2015 SRV Social History Tobacco Use Types Packs/Day Years [...] 0 10/2015 mg tablet mouth at bedtime. bisacodyL (DULCOLAX) 5 mg Take by mouth. 0 200905/27/2021 EC tablet calcium carbonate (OS-ARLEEN) Chew 1 tablet 2 0 08/1405/27/2021 1,250 mg (500 mg calcium) (two) times a day chewable tablet as needed. Heartburn. cholecalciferol (VITAMIN Take 1 tablet by 0 08/2410/15/2020 D3) 1,000 Unit tablet mouth daily. levothyroxine (SYNTHROID, Take 200 mcg by 0 08/2409/05/2019 LEVOTHROID) 200 mcg tablet mouth daily. polyethylene glycol Take by mouth. 0 07/10/2010 0 01/05/2021 (Miralax) 17 gram/dose oral powder sildenafiL (Viagra) 100 mg Take by mouth. 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 However, the narrative phrase printed from the coding software may appear abbreviated, or result in slightly different terminology. Coded By: TASHA CRUZ Date Saved: 09/17/2015 04:20 pm Source: [facility]ISION[employer] Systems POWERCHART Document Id: [id number] documented in this encounter Plan of Treatment Upcoming Encounters Date Type Specialty Care Team Description 10/11/2022 Appointment Laboratory Medicine Natasha Mullins APRN, C.N.P., M.S.N. [address] [place] [phone] (Wo rk) 10/11/2022 Ancillary Procedure Cardiovascular Disease Natasha Cramer APRN, C.N.P., M.S.N. [address] [place] [address] [phone] (Joanie rk) 10/11/2022 Appointment Cardiovascular Disease Natasha Mullins APRN, Radha.N.Jalen, M.S.N. [address] [place] [address] [phone] (Joanie velázquez) 10/12/2022 Office Visit Cardiovascular Disease Natasha Mullins APRN, C.N.P., M.S.N. [address] [place] [address] [phone] (Joanie velázquez) documented as of this encounter Visit Diagnoses Not on filedocumented in this encounter
--- OUTSIDE RECORDS SUMMARY | 2022-08-27 11:29 | XMS_ITS | Encounter Summary ---
:1945 Author Organization [facility] Address [address] [place] [address] Care Team Providers Name Role Phone Unavailable Primary Care Provider Unavailable Encounter Details Date Type Department Care Team Description 08/24/2015 - Hospital Encounter HX RST Yvonne Null, 08/27/2015 M.DCarmine [address] [place] [address] Social History Tobacco Use Types Packs/Day Years [...] Sign Reading Time Taken Comments Blood Pressure 94/59 08/27/2015 2:15 PM NIBP - Value from CDT Chart[facility]. Pulse 83 08/27/2015 12:30 Value from Fransisca tplus. PM CDT Temperature - - Respiratory Rate 17 08/25/2015 3:15 PM Value from Radha sulilvanplus. CDT Oxygen Saturation - - Inhaled Oxygen - - Concentration Weight 79.8 kg (175 lb 14.8 08/27/2015 5:30 AM Value fr om [facility]. oz) CDT Height - - Body Mass Index 26.06 08/24/2015 9:45 PM CDT documented in this encounter Medications [...] 07/1001/05/2021 tablet documented as of this encounter Plan of Treatment Upcoming Encounters Date Type Specialty Care Team Description 10/11/2022 Appointment Laboratory Medicine Natasha Mullins APRN, C.N.P., M.S.N. [address] [place] [phone] (Joanie velázquez) 10/11/2022 Ancillary Procedure Cardiovascular Disease Natasha Cramer APRN, C.N.P., M.S.N. [address] [place] [phone] (Joanie velázquez) 10/11/2022 Appointment Cardiovascular Disease Natasha Mullins APRN, C.N.P., M.S.N. [address] [place] [phone] (Wo rk) 10/12/2022 Office Visit Cardiovascular Disease Natasha Mullins APRN, C.N.P., M.S.N. [address] [place] [phone] (Wo rk) documented as of this encounter Procedures Procedure Name Priority Date/Time Associated Comments Diagnosis ECG Routine 08/27/2015 6:59 Results for this AM CDT procedure are i n the results section. ELECTROLYTE (CHEM 4) Routine 08/27/2015 5:18 Resu lts for this PANEL, S/P AM CDT procedure are i n the results section. CBC WITH DIFFERENTIAL, B Routine 08/27/2015 5:18 Results for this AM CDT procedure are i n the results section. MAGNESIUM, S Routine 08/27/2015 5:18 Results for this AM CDT procedure are i n the results section. CBC WITH DIFFERENTIAL, B Routine 08/26/2015 8:11 Results for this AM CDT procedure are i n the results section. ECG Routine 08/25/2015 6:44 Results for this AM CDT procedure are i n the results section. ELECTROLYTE (CHEM 4) Routine 08/25/2015 5:35 Resu lts for this PANEL, S/P AM CDT procedure are i n the results section. ACTIVATED PARTIAL Routine 08/25/2015 5:35 Results for this THROMBOPLASTIN TIME AM CDT procedur e are in (APTT), P the results section. CBC WITHOUT Routine 08/25/2015 5:35 Results for this DIFFERENTIAL, B AM CDT procedure ar e in the results section. CARDIAC BIOMARKER PANEL, Routine 08/25/2015 5:34 Results for this S AM CDT procedure are i n the results section. ECG Routine 08/25/2015 1:23 Results for this AM CDT procedure are i n the results section. ACT, POCT, B Routine 08/25/2015 12:47 Results for this AM CDT procedure are i n the results section. ACT, POCT, B Routine 08/25/2015 12:33 Results for this AM CDT procedure are i n the results section. ACT, POCT, B Routine 08/25/2015 12:20 Results for this AM CDT procedure are i n the results section. ACT, POCT, B Routine 08/24/2015 11:51 Results for this PM CDT procedure are i n the results section. ECG Routine 08/24/2015 10:59 Results for this PM CDT procedure are i n the results section. LIPID PANEL, S Routine 08/24/2015 10:31 Results f or this PM CDT procedure are i n the results section. ELECTROLYTE (CHEM 4) Routine 08/24/2015 10:31 Res ults for this PANEL, S/P PM CDT procedure are i n the results section. CARDIAC BIOMARKER PANEL, Routine 08/24/2015 10:31 Results for this S PM CDT procedure are i n the results section. TROPONIN T, 5TH GEN, P Routine 08/24/2015 10:31 R esults for this PM CDT procedure are i n the results section. ALANINE AMINOTRANSFERASE Routine 08/24/2015 10:31 Results for this (ALT), S/P PM CDT procedure are i n the results section. ASPARTATE Routine 08/24/2015 10:31 Results for this AMINOTRANSFERASE (AST), PM CDT proc edure are in S/P the results section. PROTHROMBIN TIME (PT), P Routine 08/24/2015 10:30 Results for this PM CDT procedure are i n the results section. CBC WITH DIFFERENTIAL, B Routine 08/24/2015 10:30 Results for this PM CDT procedure are i n the results section. HEMOGLOBIN A1C, B Routine 08/24/2015 10:30 Result s for this PM CDT procedure are i n the results section. ECG Routine 08/24/2015 9:49 Results for this PM CDT procedure are i n the results section. documented in this encounter Results ECG 12 Lead (08/27/2015 6:59 AM CDT) Specimen (Source) Anatomical Collection Method Collection Time Re ceived Time Location / / Volume Laterality 08/27/2015 6:59 AM CDT [facility] RADIOLOGY SYSTEM - 08/27/2015 8:18 AM CDT [id number] 06:59 VENTRICULAR RATE 83 Normal sinus rhythm Left anterior fascicular block Possible Anteroseptal infarct ST and T wave abnormality, consider ante rolateral ischemia Prolonged QT When compared with ECG of 25-AUG-2015 06 :44, No significant change was found [id number]^JR JOANNE GUZMAN^KARL Procedure Note Karl Guzman Jr., M.D. - 02/03/2018For matting of this note might be different from the original. 27Aug2015 06:59 VENTRICULAR RATE 83 Normal sinus rhythm Left anterior fascicular block Possible Anteroseptal infarct ST and T wave abnormality, consider ante rolateral ischemia Prolonged QT When compared with ECG of 25-AUG-2015 06 :44, No significant change was found [id number]^JR JOANNE GUZMAN^KARL Ira aMe M.D. ECG ORDERABLES Performing Organization Address City/State/ZIP Code Phon e Number [facility] RADIOLOGY SYSTEM [address] [place] [address], U Magnesium (08/27/2015 5:18 AM CDT) athologist Signature Magnesium, S 2.1 1.7 - 2.3 [facility] MG/DL LABORATORIES - [facility] Specimen Anatomical Collection Method Collection Time Receive d Time (Source) Location / / Volume Laterality 08/27/2015 5:18 AM 5 5:18 CDT AM CDT Ira Mae M.D. LAB BLOOD ADD-ON Performing Organization Address City/State/ZIP Code Phon e Number [facility] LABORATORIES - [address] [place], [place] [address] [facility] Electrolyte (Chem 4) Panel (08/27/2015 5:18 AM CDT) Analysis Performed At Patho logist Time Signature Sodium, S 138 135 - 145 [facility] MMOL/L LABORATORIES - [facility] Potassium, S 4.1 3.6 - 5.2 [facility] MMOL/L LAB[facility]ATORIES - [facility] Creatinine 0.9 0.8 - 1.3 [facility] MG/DL LABORATORIES - [facility] BUN (Blood Urea 15 8 - 24 [facility] Nitrogen), S MG/DL LAB[facility]ATORIES - [facility] Anion Gap 12 7 - 15 [facility] LABORATORIES - [facility] Glucose, S 105 70 - 140 [facility] MG/DL LABORATORIES - [facility] Chloride, S 103 98 - 107 [facility] MMOL/L LABORATORIES - [facility] HX Bicarbonate, 23 22 - 29 [facility] P/S MMOL/L LABORATORIES - [facility] Specimen Anatomical Collection Method Collection Time Receive d Time (Source) Location / / Volume Laterality 08/27/2015 5:18 AM 5 5:18 CDT AM CDT Ira Mae M.D. LAB BLOOD ADD-ON Performing Organization Address City/[facility]/ZIP Code Phon e Number [facility] LABORATORIES - [address] [place], [place] [address] [facility] (ABNORMAL) CBC with Differential (08/27/2015 5:18 AM CDT) [facility] gist Method Time Signature Erythrocytes 4.27 (L) 4.32 - [facility] 5.72 LABORATORIES - X10(12)/L [facility] MCV 89.5 81.2 - [facility] 95.1 FL LABORATORIES - [facility] Leukocytes 6.2 3.5 - [facility] 10.5 LABORATORIES - X10(9)/L [facility] Neutrophils 3.86 1.70 - [facility] 7.00 LABORATORIES - X10(9)/L [facility] Lymphocytes 1.41 0.90 - [facility] 2.90 LABORATORIES - X10(9)/L [facility] Monocytes 0.74 0.30 - [facility] 0.90 LABORATORIES - X10(9)/L [facility] Hemoglobin 13.0 (L) 13.5 - [facility] 17.5 G/DL LABORATORIES - [facility] Hematocrit 38.2 (L) 38.8 - [facility] 50.0 % [facility] RBC Distrib 13.9 11.8 - [facility] Width 15.6 % LABORATORIES - [facility] Platelet Count 187 150 - 450 [facility] X10(9)/L LABORATORIES [facility] Eosinophils 0.18 0.05 - [facility] 0.50 LABORATORIES - X10(9)/L [facility] Basophils 0.01 0.00 - [facility] 0.30 LABORATORIES - X10(9)/L [facility] Specimen Anatomical Collection Method Collection Time Receive d Time (Source) Location / / Volume Laterality 08/27/2015 5:18 AM 5 5:18 CDT AM CDT Ira Mae M.D. LAB BLOOD ADD-ON Performing Organization Address City/[facility] Code Phon e Number [facility] LABORATORIES - [address] [place], [place] [address] [facility] (ABNORMAL) CBC with Differential (08/26/2015 8:11 AM CDT) [facility] gist Method Time Signature Hemoglobin 13.4 (L) 13.5 - [facility] 17.5 G/DL LABORATORIES - [facility] Hematocrit 39.2 38.8 - [facility] 50.0 % LAB[facility]ATORIES - [facility] RBC Distrib 13.6 11.8 - [facility] Width 15.6 % LABORATORIES - [facility] Platelet Count 188 150 - 450 [facility] X10(9)/L LABORATORIES - [facility] Lymphocytes 1.43 0.90 - [facility] 2.90 LABORATORIES - X10(9)/L [facility] Monocytes 0.74 0.30 - [facility] 0.90 LABORATORIES - X10(9)/L [facility] Erythrocytes 4.38 4.32 - [facility] 5.72 LABORATORIES - X10(12)/L [facility] MCV 89.5 81.2 - [facility] 95.1 [place] LABORATORIES - [facility] Leukocytes 7.2 3.5 - [facility] 10.5 LABORATORIES - X10(9)/L [facility] Neutrophils 4.93 1.70 - [facility] 7.00 LABORATORIES - X10(9)/L [facility] Eosinophils 0.13 0.05 - [facility] 0.50 LABORATORIES - X10(9)/L [facility] Basophils 0.01 0.00 - [facility] 0.30 LABORATORIES - X10(9)/L [facility] Specimen Anatomical Collection Method Collection Time Receive d Time (Source) Location / / Volume Laterality 08/26/2015 8:11 AM 5 8:11 CDT AM CDT Ira Mae M.D. LAB BLOOD ADD-ON Performing Organization Address City/State/ZIP Code Phon e Number [facility] LABORATORIES - [address] [place] [address] [facility] ECG 12 Lead (08/25/2015 6:44 AM CDT) Specimen (Source) Anatomical Collection Method Collection Time Re ceived Time Location / / Volume Laterality 08/25/2015 6:44 AM CDT [facility] RADIOLOGY SYSTEM - 08/25/2015 7:21 AM CDT [id number] 06:44 VENTRICULAR RATE 90 Normal sinus rhythm Left anterior fascicular block Anteroseptal infarct ST and T wave abnormality, consider ante rolateral ischemia Prolonged QT When compared with ECG of 25-AUG-2015 01 :23, Premature ventricular complexes are no l onger present QRS axis has changed [id number]^JR JOANNE GUZMAN^KARL Procedure Note Karl Guzman Jr., M.D. - 02/03/2018For matting of this note might be different from the original. 25Aug2015 06:44 VENTRICULAR RATE 90 Normal sinus rhythm Left anterior fascicular block Anteroseptal infarct ST and T wave abnormality, consider ante rolateral ischemia Prolonged QT When compared with ECG of 25-AUG-2015 01 :23, Premature ventricular complexes are no l onger present QRS axis has changed [id number]^JR JOANNE GUZMAN^KARL Ira Mae M.D. ECG ORDERABLES Performing Organization Address City/State/ZIP Code Phon e Number [facility] RADIOLOGY SYSTEM [address] [place] [address], U [place] (ABNORMAL) CBC without Differential (08/25/2015 5:35 AM CDT) Patholo gist Method Time Signature Hemoglobin 13.3 (L) 13.5 - [facility] 17.5 G/DL LABORATORIES [facility] Hematocrit 40.3 38.8 - [facility] 50.0 % LABORATORIES - [facility] RBC Distrib 13.6 11.8 - [facility] Width 15.6 % [facility] Platelet Count 190 150 - 450 [facility] X10(9)/L LABORATORIES [facility] Leukocytes 9.0 3.5 - [facility] 10.5 LABORATORIES - X10(9)/L [facility] Erythrocytes 4.45 4.32 - [facility] 5.72 LABORATORIES - X10(12)/L [facility] MCV 90.6 81.2 - [facility] 95.1 [place] LABORATORIES - [facility] Specimen Anatomical Collection Method Collection Time Receive d Time (Source) Location / / Volume Laterality 08/25/2015 5:35 AM 5 5:35 CDT AM CDT Lazaro Rivero M.D. LAB BLOOD ADD-ON Performing Organization Address City/State/ZIP Code Phon e Number [facility] LABORATORIES - [address] [place], [place] [address] [facility] (ABNORMAL) APTT (Activated Partial Thromboplastin Time) (08/25/2015 5:35 AM CDT) P athologist Signature APTT, P 45 (H) 28 - 38 SEC [facility] Specimen Anatomical Collection Method Collection Time Receive d Time (Source) Location / / Volume Laterality 08/25/2015 5:35 AM 5 5:35 CDT AM CDT Lazaro Rivero M.D. LAB BLOOD ADD-ON Performing Organization Address City/[facility]/ZIP Code Phon e Number [facility] LABORATORIES - [address] [place] [address] [facility] (ABNORMAL) Electrolyte (Chem 4) Panel (08/25/2015 5:35 AM CDT) Patholo gist Method Time Signature Chloride, S 101 98 - 107 [facility] MMOL/L [facility] HX Bicarbonate, 20 (L) 22 - 29 [facility] P/S MMOL/L [facility] Creatinine 0.7 (L) 0.8 - 1.3 [facility] MG/DL [facility] BUN (Blood Urea 17 8 - 24 [facility] Nitrogen), S MG/DL [facility] Sodium, S 136 135 - 145 [facility] MMOL/L [facility] Potassium, S 4.4 3.6 - 5.2 [facility] MMOL/L [facility] Anion Gap 15 7 - 15 [facility] Glucose, S 141 (H) 70 - 140 [facility] MG/DL [facility] Specimen Anatomical Collection Method Collection Time Receive d Time (Source) Location / / Volume Laterality 08/25/2015 5:35 AM 5 5:35 CDT AM CDT Lazaro Rivero M.D. LAB BLOOD ADD-ON Performing Organization Address City/[facility] Code Phon e Number [facility] LABORATORIES - [address] [place] [address] [facility] Cardiac Biomarker Panel (08/25/2015 5:34 AM CDT) P athologist Signature Troponin T 3H, . NG/ML [facility] S [facility] Comment: Cardiac Biomarker Panel, S was cancelled on 08/25/2015 at 09:10; Duplicate test ? request. ? REVISED RESULTS ? PREVIOUSLY REPORTED A S ? 11.5 (Reported 08/25/2015 06:45) ? Specimen Anatomical Collection Method Collection Time Receive d Time (Source) Location / / Volume Laterality 08/25/2015 5:34 AM 5 5:34 CDT AM CDT Narrative [facility] LABORATORIES - [facility] - 08/25/2015 9:11 AM CDT Cardiac Biomarker Panel, S was cancelled on 08/25/2015 at 09:10; Duplicate test request. Ira Mae M.D. LAB BLOOD ADD-ON Performing Organization Address City/State/ZIP Code Phon e Number [facility] LABORATORIES - [address] [place], [place] [address] [facility] ECG 12 Lead (08/25/2015 1:23 AM CDT) Specimen (Source) Anatomical Collection Method Collection Time Re ceived Time Location / / Volume Laterality 08/25/2015 1:23 AM CDT [facility] RADIOLOGY SYSTEM - 08/25/2015 6:15 AM CDT [id number] 01:23 VENTRICULAR RATE 64 Sinus rhythm Premature ventricular complexes Left axis deviation Anteroseptal infarct ST and T wave abnormality, consider ante rolateral ischemia ST elevation in Anterior leads When compared with ECG of 24-AUG-2015 22 :59, Premature ventricular complexes are now present Vent. rate has decreased BY ??[address] and T waves have changed [id number]^JR JOANNE GUZMAN^KARL Procedure Note Karl Guzman Jr., M.D. - 02/03/2018For matting of this note might be different from the original. 25Aug2015 01:23 VENTRICULAR RATE 64 Sinus rhythm Premature ventricular complexes Left axis deviation Anteroseptal infarct ST and T wave abnormality, consider ante rolateral ischemia ST elevation in Anterior leads When compared with ECG of 24-AUG-2015 22 :59, Premature ventricular complexes are now present Vent. rate has decreased BY [address] and T waves have changed [id number]^JR JOANNE GUZMAN^KARL Prieto J Kumar M.D. ECG ORDERABLES Performing Organization Address City/State/ZIP Code Phon e Number [facility] RADIOLOGY SYSTEM [address] [place] [address], [place] (ABNORMAL) ACT (Activated Clotting Time), POCT (08/25/2015 12:47 AM CDT) [facility] Method Time Signature Activated 274 (H) 84 - 139 [facility] Clotting Time, SEC LABORATORIES - POCT [facility] Specimen Anatomical Collection Method Collection Time Receive d Time (Source) Location / / Volume Laterality 08/25/2015 12:47 08/25/2015 AM CDT 12:47 AM CDT Historical Provider LAB POCT ORDERABLES - DEVICE Performing Organization Address City/[facility]/ZIP Code Phon e Number [facility] LABORATORIES - [address] (ABNORMAL) ACT (Activated Clotting Time), POCT (08/25/2015 12:33 AM CDT) [facility] Method Time Signature Activated 256 (H) 84 - 139 [facility] Clotting Time, SEC LABORATORIES - POCT [facility] Specimen Anatomical Collection Method Collection Time Receive d Time (Source) Location / / Volume Laterality 08/25/2015 12:33 08/25/2015 AM CDT 12:33 AM CDT Historical Provider LAB POCT ORDERABLES - DEVICE Performing Organization Address City/[facility]/ZIP Code Phon e Number [facility] LABORATORIES - [address] (ABNORMAL) ACT (Activated Clotting Time), POCT (08/25/2015 12:20 AM CDT) [facility] Method Time Signature Activated 202 (H) 84 - 139 [facility] Clotting Time, SEC LABORATORIES - POCT [facility] Specimen Anatomical Collection Method Collection Time Receive d Time (Source) Location / / Volume Laterality 08/25/2015 12:20 08/25/2015 AM CDT 12:20 AM CDT Historical Provider LAB POCT ORDERABLES - DEVICE Performing Organization Address City/[facility]/ZIP Code Phon e Number [facility] LABORATORIES - [address] [place] [address] [facility] ACT (Activated Clotting Time), POCT (08/24/2015 11:51 PM CDT) P athologist Signature Activated 133 84 - 139 [facility] Clotting Time, SEC LABORATORIES - POCT [facility] Specimen Anatomical Collection Method Collection Time Receive d Time (Source) Location / / Volume Laterality 08/24/2015 11:51 08/24/2015 PM CDT 11:51 PM CDT Historical Provider LAB POCT ORDERABLES - DEVICE Performing Organization Address City/State/ZIP Code Phon e Number [facility] LABORATORIES - [address] [place], [place] [address] [facility] ECG 12 Lead (08/24/2015 10:59 PM CDT) Specimen (Source) Anatomical Collection Method Collection Time Re ceived Time Location / / Volume Laterality 08/24/2015 10:59 PM CDT [facility] RADIOLOGY SYSTEM - 08/25/2015 5:14 AM CDT [id number] 22:59 VENTRICULAR RATE 95 Normal sinus rhythm Left axis deviation Anteroseptal infarct ST elevation in Anterior leads When compared with ECG of 24-AUG-2015 21 :49, Premature ventricular complexes are no l onger present ST more elevated in Anterior leads [id number]^JR JOANNE GUZMAN^KARL Procedure Note Karl Guzman Jr., M.D. - 02/03/2018For matting of this note might be different from the original. 24Aug2015 22:59 VENTRICULAR RATE 95 Normal sinus rhythm Left axis deviation Anteroseptal infarct ST elevation in Anterior leads When compared with ECG of 24-AUG-2015 21 :49, Premature ventricular complexes are no l onger present ST more elevated in Anterior leads [id number]^JR JOANNE GUZMAN^KARL Ira Mae M.D. ECG ORDERABLES Performing Organization Address City/[facility]/ZIP Code Phon e Number [facility] RADIOLOGY SYSTEM [address] [place] [address], U SA Troponin T (08/24/2015 10:31 PM CDT) P athologist Signature Troponin T, S . <0.01 [facility] NG/ML LABORATORIES - [facility] Comment: Troponin T, S was cancelled on 5 at 09:15; Results moved to [id number], ? [place] PER Dr. Ira Mae [id number] ? REVISED RESULTS ? PREVIOUSLY REPORTED A S ? 2.1 (Reported 08/25/2015 00:00) ? Specimen Anatomical Collection Method Collection Time Receive d Time (Source) Location / / Volume Laterality 08/24/2015 10:31 08/24/2015 PM CDT 10:31 PM CDT Narrative [facility] - 08/25/2015 9:16 AM CDT Troponin T, S was cancelled on 08/25/2015 at 09:15; Results moved to [id number], [place] PER Dr. Ira Mae [id number] Ira Mae M.D. LAB BLOOD ADD-ON Performing Organization Address City/[facility] Phon e Number [facility] - [address] [place] [address] [facility] (ABNORMAL) AST (Aspartate Aminotransferase) (08/24/2015 10:31 PM CDT) [facility] [employer] Method Time Signature AST, Total, S 191 (H) 8 - 48 U/L [facility] Specimen Anatomical Collection Method Collection Time Receive d Time (Source) Location / / Volume Laterality 08/24/2015 10:31 08/24/2015 PM CDT 10:31 PM CDT Ira Mae M.D. LAB BLOOD ADD-ON Performing Organization Address City/[facility] Code Phon e Number [facility] LABORATORIES - [address] [place] [address] [facility] (ABNORMAL) Lipid Panel (08/24/2015 10:31 PM CDT) [facility] Method Time Signature Cholesterol, 226 (H) SeeComment [facility] Total MG/DL [facility] Comment: ? REFERENCE VALUE------ ? Desirable: < 200 ? Borderline high: 200 - 239 ? High: > or = 240 ? Triglycerides 39 SeeComment MG/DL [facility] Comment: ? REFERENCE VALUE------ ? Normal: <150 ? Borderline high: 150-199 ? High: 200-499 ? Very high: > or =500 ? Cholesterol, Non-HDL, 162 (H) SeeComment MG/DL [facility] - Calculated [facility] Comment: ? REFERENCE VALUE------ ? Desirable: <130 ? Above Desirable: 130-159 ? Borderline high: 160-189 ? High: 190-219 ? Very high: > or =220 ? Cholesterol, HDL, S 64 >=40 MG/DL [facility] Calculated LDL 154 (H) SeeComment MG/DL [facility] Comment: ? REFERENCE VALUE------ ? Desirable: <100 ? Above Desirable: 100-129 ? Borderline high: 130-159 ? High: 160-189 ? Very high: > or =190 ? Specimen Anatomical Collection Method Collection Time Receive d Time (Source) Location / / Volume Laterality 08/24/2015 10:31 08/24/2015 PM CDT 10:31 PM CDT Ira Mae M.D. LAB BLOOD ADD-ON Performing Organization Address City/State/ZIP Code Phon e Number [facility] LABORATORIES - [address] [place] [address] [facility] ALT (Alanine Aminotransferase) (08/24/2015 10:31 PM CDT) [facility] Signature Alanine 42 7 - 55 [facility] Aminotransferase U/L LABORATORIES - (ALT), S [facility] Specimen Anatomical Collection Method Collection Time Receive d Time (Source) Location / / Volume Laterality 08/24/2015 10:31 08/24/2015 PM CDT 10:31 PM CDT Ira Mae M.D. LAB BLOOD ADD-ON Performing Organization Address City/[facility] Code Phon e Number [facility] LABORATORIES - [address] [place] [phone] [facility] (ABNORMAL) Electrolyte (Chem 4) Panel (08/24/2015 10:31 PM CDT) [facility] Signature Sodium, S 140 135 - 145 [facility] MMOL/L LABORATORIES - [facility] Potassium, S 3.9 3.6 - 5.2 [facility] MMOL/L LABORATORIES - [facility] Creatinine 0.8 0.8 - 1.3 [facility] MG/DL LABORATORIES - [facility] BUN (Blood Urea 19 8 - 24 [facility] Nitrogen), S MG/DL LABORATORIES - [facility] Anion Gap 15 7 - 15 [facility] LABORATORIES - [facility] Glucose, S 147 (H) 70 - 140 [facility] MG/DL LABORATORIES - [facility] Chloride, S 103 98 - 107 [facility] MMOL/L LABORATORIES - [facility] HX Bicarbonate, 22 22 - 29 [facility] P/S MMOL/L LABORATORIES - [facility] Specimen Anatomical Collection Method Collection Time Receive d Time (Source) Location / / Volume Laterality 08/24/2015 10:31 08/24/2015 PM CDT 10:31 PM CDT Ira Mae M.D. LAB BLOOD ADD-ON Performing Organization Address City/[facility]/ZIP Code Phon e Number [facility]IES - [address] [phone] [facility] (ABNORMAL) Cardiac Biomarker Panel (08/24/2015 10:31 PM CDT) [facility] Method [place] Signature Troponin T 6H, 11.5 (H) <0.01 [facility] S NG/ML LABORATORIES [facility] Delta Interp Sig Delta [facility] LABORATORIES - [facility] Comment: Significant delta observed. Troponin Delta % 448 % [facility] Troponin T, S 2.1 (H) <0.01 NG/ML [facility] Troponin T 3H, S . [facility] Specimen Anatomical Collection Method Collection Time Receive d Time (Source) Location / / Volume Laterality 08/24/2015 10:31 08/24/2015 PM CDT 10:31 PM CDT Ira Mae M.D. LAB BLOOD ADD-ON Performing Organization Address City/State/ZIP Code Phon e Number [facility] LABORATORIES - [address] [address] [facility] Hemoglobin A1c (08/24/2015 10:30 PM CDT) Analysis Performed At [facility] logist Time Signature Hemoglobin A1c, 5.6 4.0 - 6.0 [facility] B % [facility] Specimen Anatomical Collection Method Collection Time Receive d Time (Source) Location / / Volume Laterality 08/24/2015 10:30 08/24/2015 PM CDT 10:30 PM CDT Ira Mae M.D. LAB BLOOD ADD-ON Performing Organization Address City/[facility]/ZIP Code Phon e Number [facility] LABORATORIES - [address] [address] [facility] PT (Prothrombin Time) with INR (08/24/2015 10:30 PM CDT) [facility] Method Time Signature Prothrombin 12.0 9.5 - 13.8 [facility] Time, P SEC [facility] INR 1.0 0.8 - 1.2 [facility] Specimen Anatomical Collection Method Collection Time Receive d Time (Source) Location / / Volume Laterality 08/24/2015 10:30 08/24/2015 PM CDT 10:30 PM CDT Ira Mae M.D. LAB BLOOD ADD-ON Performing Organization Address City/[facility]/ZIP Code Phon e Number [facility] LABORATORIES - [address] [phone] [facility] (ABNORMAL) CBC with Differential (08/24/2015 10:30 PM CDT) [facility] gist Method Time Signature Erythrocytes 4.35 4.32 - [facility] 5.72 LABORATORIES - X10(12)/L [facility] MCV 90.6 81.2 - [facility] 95.1 [place] LABORATORIES - [facility] RBC Distrib 13.5 11.8 - [facility] Width 15.6 % LABORATORIES - [facility] Platelet Count 187 150 - 450 [facility] X10(9)/L LABORATORIES - [facility] Leukocytes 10.0 3.5 - [facility] 10.5 LABORATORIES - X10(9)/L [facility] Neutrophils 8.92 (H) 1.70 - [facility] 7.00 LABORATORIES - X10(9)/L [facility] Eosinophils 0.07 0.05 - [facility] 0.50 LABORATORIES - X10(9)/L [facility] Basophils 0.01 0.00 - [facility] 0.30 LABORATORIES - X10(9)/L [facility] Hemoglobin 13.2 (L) 13.5 - [facility] 17.5 G/DL LABORATORIES - [facility] Hematocrit 39.4 38.8 - [facility] 50.0 % LABORATORIES - [facility] Lymphocytes 0.69 (L) 0.90 - [facility] 2.90 LABORATORIES - X10(9)/L [facility] Monocytes 0.34 0.30 - [facility] 0.90 LABORATORIES - X10(9)/L [facility] Specimen Anatomical Collection Method Collection Time Receive d Time (Source) Location / / Volume Laterality 08/24/2015 10:30 08/24/2015 PM CDT 10:30 PM CDT Ira Mae M.D. LAB BLOOD ADD-ON Performing Organization Address City/State/ZIP Code Phon e Number [facility] LABORATORIES - [address] [place], [place] [address] [facility] ECG 12 Lead (08/24/2015 9:49 PM CDT) Specimen (Source) Anatomical Collection Method Collection Time Re ceived Time Location / / Volume Laterality 08/24/2015 9:49 PM CDT [facility] RADIOLOGY SYSTEM - 08/24/2015 10:18 PM CDT 24Aug2015 21:49 VENTRICULAR RATE 96 Sinus rhythm Premature ventricular complexes Left axis deviation Anteroseptal infarct ST elevation in Anterior leads No previous ECGs available [id number]^JR JOANNE GUZMAN^KARL Procedure Note Karl Guzman Jr., M.D. - 02/03/2018For matting of this note might be different from the original. 24Aug2015 21:49 VENTRICULAR RATE 96 Sinus rhythm Premature ventricular complexes Left axis deviation Anteroseptal infarct ST elevation in Anterior leads No previous ECGs available [id number]^JR JOANNE GUZMAN^KARL Ira Mae M.D. ECG ORDERABLES Performing Organization Address City/State/ZIP Code Phon e Number [facility] [address] [place] [address], [place] documented in this encounter Visit Diagnoses Not on filedocumented in this encounter
--- OUTSIDE RECORDS SUMMARY | 2022-08-27 11:29 | XMS_ITS | Encounter Summary ---
:1945 Author Organization [facility] Address [address] [place] [address] Care Team Providers Name Role Phone Unavailable Primary Care Provider Unavailable Encounter Details Date Type Department Care Team Description 12/24/2015 Hospital Encounter HX [facility] Fazal Soto M.D., Ph.D. [address] [place], [place] [phone] (Wo rk) Social History Tobacco Use Types [...] Medicine Natasha Mullins APRN, C.N.P., M.S.N. [address] [place] [phone] (Joanie rk) 10/11/2022 Ancillary Procedure Cardiovascular Disease Natasha Cramer APRN, C.N.P., M.S.N. [address] [place] [phone] (Wo rk) 10/11/2022 Appointment Cardiovascular Disease Natasha Mullins APRN, C.N.P., M.S.N. [address] [place] [phone] (Wo rk) 10/12/2022 Office Visit Cardiovascular Disease Natasha Mullins APRN, Radha.N.P., M.S.N. [address] [place] [phone] (Wo rk) documented as of this encounter Visit Diagnoses Not on filedocumented in this encounter
--- OUTSIDE RECORDS SUMMARY | 2022-08-27 11:29 | XMS_ITS | Encounter Summary ---
:1945 Author Organization [facility] Address [address] [place] [address] Care Team Providers Name Role Phone Unavailable Primary Care Provider Unavailable Encounter Details Date Type Department Care Team Description 07/16/2010 Hospital Encounter [facility]X [facility] Cinda Pereria M.D. [address] [place] [phone] (Wo rk) Social History Tobacco Use Types [...] Sig Dispensed Refills Start Date End Date bisacodyL (DULCOLAX) 5 mg EC Take by mouth. 0 05/27/2021 tablet polyethylene glycol (Miralax) Take by mouth. 0 01/05/2021 17 gram/dose oral powder sildenafiL (Viagra) 100 mg Take by mouth. 0 07/1001/05/2021 tablet documented as of this encounter Miscellaneous Notes Miscellaneous - Singh Pereira M.D. - 07/16/2010 12:00 AM CDT [id number] Levi Khanna [id number] [place] [phone] [facility] July 16, 2010 Dear Barrington, I am writing you concerning your recent lab results obtained at our clinic. Your cholesterol results: CHOL 280 07/10/2010 desired <200 HDL 57 07/10/2010 desired >35 (good chol) LDL 205 07/10/2010 desired <130 (bad chol) TRIG 92 07/10/2010 desired <200 Your glucose (blood sugar) value is: GLC 93 07/10/2010 Normal values are between 60 and 99. Your prostate blood test: PSA 1.75 07/10/2010 normal 0-4 As you can see, your ldl cholesterol is very high. I would like to see you back about this. If you have not already done so, please make an appt to see me at your earliest convenience. I am looking forward to seeing you in the near future. Sincerely, Singh Pereira MD Source: [facility] [id number] Document Id: [id number] documented in this encounter Plan of Treatment Upcoming Encounters Date Type Specialty Care Team Description 10/11/2022 Appointment Laboratory Medicine Natasha Mullins APRN, Radha.N.[place]., M.S.N. [address] [place] [phone] (Joanie velázquez) 10/11/2022 Ancillary Procedure Cardiovascular Disease Natasha Cramer APRN, Radha.N.P., M.S.N. [address] [place] [phone] (Joanie velázquez) 10/11/2022 Appointment Cardiovascular Disease Natasha Mullins APRN, Radha.N.P., M.S.N. [address] [place] [phone] (Joanie velázquez) 10/12/2022 Office Visit Cardiovascular Disease Natasha Mullins APRN, C.N.P., M.S.N. [address] [place] [phone] (Wo rk) documented as of this encounter Visit Diagnoses Not on filedocumented in this encounter
--- OUTSIDE RECORDS SUMMARY | 2022-08-27 11:29 | XMS_ITS | Encounter Summary ---
:1945 Author Organization [facility] Address [address] [place] [address] Care Team Providers Name Role Phone Unavailable Primary Care Provider Unavailable Encounter Details Date Type Department Care Team Description 04/14/2016 Hospital Encounter HX NO MAPPING Social History Tobacco Use Types Packs/Day Years [...] Natasha Mullins APRN, C.N.P., M.S.N. [address] [place] [phone] (Joanie rk) 10/11/2022 Ancillary Procedure Cardiovascular Disease Natasha Cramer APRN, Radha.N.P., M.S.N. [address] [place] [phone] (Wo rk) 10/11/2022 Appointment Cardiovascular Disease Natasha Mullins APRN, C.N.P., M.S.N. [address] [place] [phone] (Joanie rk) 10/12/2022 Office Visit Cardiovascular Disease Natasha Mullins APRN, C.N.P., M.S.N. [address] [place] [phone] (Joanie rk) documented as of this encounter Visit Diagnoses Not on filedocumented in this encounter
--- OUTSIDE RECORDS SUMMARY | 2022-08-27 11:29 | XMS_ITS | Encounter Summary ---
:1945 Author Organization [facility] Address [address] [place] [address] Care Team Providers Name Role Phone Unavailable Primary Care Provider Unavailable Encounter Details Date Type Department Care Team Description 2010 Hospital Encounter HX NO MAPPING Provider, Historical [...] Natasha Mullins APRN, C.N.P., M.S.N. [address] [place] [phone] (Wo rk) 10/11/2022 Ancillary Procedure Cardiovascular Disease Natasha Cramer APRN, Radha.NRenetta, M.S.N. [address] [place] [phone] (Joanie rk) 10/11/2022 Appointment Cardiovascular Disease Natasha Mullins APRN, C.Vandana, M.S.N. [address] [place] [phone] (Joanie rk) 10/12/2022 Office Visit Cardiovascular Disease Natasha Mullins APRN, Radha.NLibrado., M.S.N. [address] [place] [phone] (Joanie rk) documented as of this encounter Visit Diagnoses Not on filedocumented in this encounter
--- OUTSIDE RECORDS SUMMARY | 2022-08-27 11:29 | XMS_ITS | Encounter Summary ---
:1945 Author Organization [facility] Address [address] [place] [address] Care Team Providers Name Role Phone Unavailable Primary Care Provider Unavailable Encounter Details Date Type Department Care Team Description 10/14/2015 Hospital Encounter HX NO MAPPING Social History [...] Medicine Natasha Mullins APRN, C.N.P., M.S.N. [address] [place] [phone] (Joanie rk) 10/11/2022 Ancillary Procedure Cardiovascular Disease Natasha Cramer APRN, Radha.N.P., M.S.N. [address] [place] [phone] (Wo rk) 10/11/2022 Appointment Cardiovascular Disease Natasha Mullins APRN, C.N.P., M.S.N. [address] [place] [phone] (Joanie rk) 10/12/2022 Office Visit Cardiovascular Disease Natasha Mullins APRN, C.N.P., M.S.N. [address] [place] [phone] (Joanie rk) documented as of this encounter Visit Diagnoses Not on filedocumented in this encounter
--- OUTSIDE RECORDS SUMMARY | 2022-08-27 11:29 | XMS_ITS | Encounter Summary ---
:1945 Author Organization [facility] Address [address] [place] [address] Care Team Providers Name Role Phone Unavailable Primary Care Provider Unavailable Encounter Details Date Type Department Care Team Description 02/08/2016 Hospital Encounter HX [facility] ED Kayy Teague M .D. Social History Tobacco Use Types Packs/Day Years [...] Sign Reading Time Taken Comments Blood Pressure 127/79 02/08/2016 9:40 AM CDT Pulse - - Temperature - - Respiratory Rate 14 02/08/2016 7:54 AM CDT Oxygen Saturation - - Inhaled Oxygen Concentration - - Weight - - Height 176 cm (5' 9.29) 02/08/2016 9:40 AM CDT Body Mass Index - - documented in this encounter Discharge Summaries Rosalind Junior, RCarmineN. - 02/08/2016 10:18 AM CDT ED Depart Summary [facility] Emergency Department Clinical Discharge Summary PERSON INFORMATION Name MANUEL ADKINS Age 70 Years 1945 12:00 AM Sex Male Language Pakistani PCP PCP, ELSEWHERE Marital Status Visit Id Visit Reason Episodic recurrent vertigo; Heart issues Specialty Enc Type Emergency Med Service Emergency Medicine Referred by Track Group [facility] ED Discharge 02/08/2016 10:10 AM Tracking Id [id number] Checkout 02/08/2016 10:10 AM Checkin 02/08/2016 7:47 AM Acuity 3 -Urgent Dispo Type * Discharged to Home or Self Care Arrival 02/08/2016 7:47 AM Reg Status Complete LOS 000 02:23 Address: [address] [place] [phone] Comment: PROVIDER INFORMATION Provider Role Provider Contact Time KAYY TEAGUE MD ED Provider 02/08/16 08:00 ROSALIND JUNIOR IRRIGATOR Nurse 02/08/16 08:21 DIAGNOSIS Adverse Effect Drug Sequela; Spells Undifferentiated Comment: PATIENT EDUCATION INFORMATION Instructions: SYMPTOMS WITH UNCERTAIN CAUSE Follow up: With: Address: When: Cardiology Within Tomorrow Comments: Call to inform them of symptoms and to elicit advice regarding carvedilol. Until then go back to your previous dose of carvedilol. Source: [facility] POWERCHART Document Id: [id number] Rosalind Junior RDeloris. - 02/08/2016 10:18 AM CDT ED Discharge Instructions [address] [address] Name: MANUEL ADKINS Date of : 1945 12:00 AM Visit Date: 02/08/2016 7:47 AM [facility] Number: [id number] Address: [address] [place] [phone] Primary Care Provider: PCP, ELSEWHERE IMPORTANT: [facility] in [place] would like to thank you for allowing us to assist you with your healthcare needs. The following includes patient education materials and informationregarding your injury/illness. Diagnosis: Adverse Effect Drug Sequela; Spells Undifferentiated Follow-Up Instructions: With: Address: When: Cardiology Within Tomorrow Comments: Call to inform them of symptoms and to elicit advice regarding carvedilol. Until then go back to your previous dose of carvedilol. Your Upcoming Appointments: Date Time Location Provider No Appointments found Patient Education Materials: Symptoms With Uncertain Cause [Adult] Based on the exam and any tests that were performed today, the exact cause of your symptoms is not certain. While your condition does not seem serious, the signs of a serious problem may take more timeto appear. Therefore, it is important for you to watch for any new symptoms or worsening of your condition. Follow up with your doctor or this facility, as directed. A repeat physical exam or additional testing at a later time may uncover a cause for your symptoms that is not evident today. Home Care: ?? Resume your usual activities and diet when this feels comfortable to do so. Follow Up with your doctor, or as advised by our staff. Contact your doctor sooner if your symptoms do not begin to improve in the next few days. [NOTE: If you had an x-ray, CT scan, ultrasound, or ECG (electrocardiogram), it will be reviewed by a specialist. You will be notified of any new findings that may affect your care.] Get Prompt Medical Attention if any of the following occur: ?? Current symptoms get worse ?? New symptoms appear ?? [id number] [facility], [address] [place] [address]. All rights reserved. This information is not intended as a substitute for professional medical care. Always follow your healthcare professional's instructions. Consider Using Patient Online Services Patient Online Services is a secure online and Mobile application that lets you: ?? View lab and test results ?? View portions of your medical record including clinical notes, immunizations and discharge summaries ?? Request an appointment or medication refill ?? Review your appointment schedule ?? Send secure messages to your care team Its easy to create an account if you dont have one. Go to [email or web address] and click on Create Your Account. Then, follow the directions to complete the online form. Youll be asked for your [facility] number which you can find at the top of this document. ED Tests and Procedures: Order Status Automated Diff-5 Part Completed CBC (includes Auto Differential) Completed Comprehensive Metabolic Panel Completed Troponin T Completed Discharge Prescriptions & Home Medications: Medication/Strength Dose Route Frequency Indications/Special Instructions/Comments/Notes ticagrelor (Brilinta) 90 mg Oral two times a day nitroglycerin (Nitrostat 0.4 mg sublingual tablet) 0.4 mg Sublingual every 5 minutes montelukast (Singulair 10 mg oral tablet) 10 mg Oral every evening lisinopril (lisinopril 10 mg oral tablet) 10 mg Oral once a day levothyroxine (levothyroxine 200 mcg (0.2 mg) oral tablet) 200 mcg Oral once a day *clopidogrel (Plavix 75 mg oral tablet) 75 mg Oral once a day cholecalciferol (cholecalciferol 1000 intl units oral tablet) 1,000 IntU Oral once a day cetirizine (cetirizine 10 mg oral tablet, chewable) 10 mg Oral once a day carvedilol (carvedilol 3.125 mg oral tablet) 3.125 mg Oral two times a day calcium carbonate (calcium carbonate) Oral atorvastatin (Lipitor 80 mg oral tablet) 80 mg Oral once a day (at bedtime) aspirin (Aspir 81) 81 mg Oral once a day fluticasone-salmeterol (Advair Diskus 250 mcg-50 mcg inhalation powder) 1 puff(s) Inhalation two times a day *Misc Prescription (ALBUTEROL IN) See Instructions as needed *sildenafil (Viagra 100 mg oral tablet) See Instructions 1/2 tab by mouth daily 1 hour prior to intercourse prn *fluconazole (Diflucan 100 mg oral tablet) See Instructions 1 TABLET TWICE A WEEK *fluticasone (Flovent HFA) See Instructions 1 time daily *polyethylene glycol 3350 (MiraLax oral powder for reconstitution) See Instructions 255 grams - Per Instructions - order with 4 Bisacodyl tabs as directed *aspirin (aspirin 325 mg oral tablet) See Instructions 1 tablet daily *bisacodyl (bisacodyl 5 mg oral delayed release tablet) See Instructions 4 tabs as directed * You have let us know that you are not taking this medication as listed. Please talk with your primary care provider or the health care provider who prescribed the medication as soon as possible. Comment: Attention: If you have any medications at home not on this list, DO NOT take them until you contact your provider for clarification. Give a copy of your medication list to your primary care provider. Update your medication list any time medications or doses are changed and carry your medication list at all times in case of emergency. IMPORTANT: We examined and treated you today on an emergency basis only. This was not a substitute for, or an effort to provide, complete medical care. In most cases, you must let your doctor check youagain. Tell your doctor about any new or lasting problems. We cannot recognize and treat all injuries or illnesses in one Emergency Department visit. If you had special tests, such as EKG's or X- rays, we will review them again within 24 hours. We will call you if there are any new suggestions. Please follow the instructions above carefully. If you are being transferred to another facility your followup plan of care will be determined by the receiving facility. If you are a patient that is being discharged from the Emergency Department after receiving narcotics or other medications that may impair your judgment you may be a risk to yourself or others if you operate a motor vehicle. We recommend that you arrange a ride home with a responsible democrat. IJED RONALD JEROME , or responsible democrat have received this information and my questions have been answered. I have discussed any challenges I see with this plan with the nurse or physician. Patient Signature or Responsible Constitution Party/Relationship Date Time Provider Signature Date Time IMPORTANT: We examined and treated you today on an emergency basis only. This was not a substitute for, or an effort to provide, complete medical care. In most cases, you must let your doctor check youagain. Tell your doctor about any new or lasting problems. We cannot recognize and treat all injuries or illnesses in one Emergency Department visit. If you had special tests, such as EKG's or X- rays, we will review them again within 24 hours. We will call you if there are any new suggestions. Please follow the instructions above carefully. If you are being transferred to another facility your followup plan of care will be determined by the receiving facility. If you are a patient that is being discharged from the Emergency Department after receiving narcotics or other medications that may impair your judgment you may be a risk to yourself or others if you operate a motor vehicle. We recommend that you arrange a ride home with a responsible democrat. I, MANUEL ADKINS , or responsible democrat have received this information and my questions have been answered. I have discussed any challenges I see with this plan with the nurse or physician. Patient Signature or Responsible Constitution Party/Relationship Date Time Provider Signature Date Time Source: [facility] POWERCHART Document Id: [id number] documented in this encounter Medications at Time [...] 07/1001/05/2021 tablet documented as of this encounter ED Notes Rosalind Junior R.N. - 02/08/2016 10:18 AM CDT ED Pain Assessment ED Pain Assessment Entered On: 02/08/2016 10:18 CDT Performed On: 02/08/2016 10:18 CDT by ROSALIND JUNIOR RN Pain Assessment Pain Symptoms : No ROSALIND JUNIOR RN - 02/08/2016 10:18 CDT Source: [employer] Document Id: [id number] CDT!3 Rosalind Junior R.N. - 02/08/2016 10:17 AM CDT ED Disposition Summary ED Disposition Summary Entered On: 02/08/2016 10:18 CDT Performed On: 02/08/2016 10:17 CDT by ROSALIND JUNIOR RN ED Disposition Summary Present in Room During Exam/Procedure : Spouse Mode of Discharge : Ambulatory Transportation : Private vehicle Discharge From ED With : Home Med List Printed Discharge Instructions Given to Patient : Yes Patient Status at Discharge from ED : Improved ROSALIND JUNIOR RN - 02/08/2016 10:17 CDT Source: [employer] Document Id: [id number] CDT!8 Rosalind Junior R.N. - 02/08/2016 9:40 AM CDT ED Nurse Reassess ED Nurse Reassess Entered On: 02/08/2016 9:40 CDT Performed On: 02/08/2016 9:40 CDT by ROSALIND JUNIOR RN Pain Assessment Pain Symptoms : No ROSALIND JUNIOR RN - 02/08/2016 9:40 CDT Source: [employer] Document Id: [id number] CDT!3 Rosalind Junior R.N. - 02/08/2016 9:39 AM CDT ED Treatments and Procedures ED Treatments and Procedures Entered On: 02/08/2016 9:39 CDT Performed On: 02/08/2016 9:39 CDT by ROSALIND JUNIOR RN Peripheral IV Peripheral IV Assess/Intervention Grid Peripheral IV #1 IV Activity : Start, Discontinue Number of Attempts : 1 Date of Insertion : 02/08/2016 CDT IV Site : Antecubital Laterality : Right Catheter Size : 18 Catheter Type : Safety intima Site Condition : No complications ROSALIND JUNIOR RN - 02/08/2016 9:39 CDT Source: [employer] Document Id: [id number] CDT!12 Rosalind Junior R.N. - 02/08/2016 9:13 AM CDT ED Treatments and Procedures ED Treatments and Procedures Entered On: 02/08/2016 9:18 CDT Performed On: 02/08/2016 9:13 CDT by ROSALIND JUNIOR RN Orthostatics Systolic Blood Pressure Supine : 124 mmHg Diastolic Blood Pressure Supine : 82 mmHg Pulse Supine : 70 /min Patient Response Supine : No response Systolic Blood Pressure Standing Immediate : 116 mmHg Diastolic Blood Pressure Standing Immediate : 83 mmHg Pulse Standing Immediate : 94 /min Patient Response Standing Immediate : No response Systolic Blood Pressure Standing 1 Minute : 128 mmHg Diastolic Blood Pressure Standing 1 Minute : 84 mmHg Pulse Standing 1 Minute : 95 /min Patient Response Standing 1 Minute : No response Systolic Blood Pressure Sitting : 127 mmHg Diastolic Blood Pressure Sitting : 79 mmHg Pulse Sitting : 87 /min Patient Response Sitting : No response ROSALIND JUNIOR RN - 02/08/2016 9:13 CDT Source: [employer] Document Id: [id number] CDT!18 Kayy Teague M.D. - 02/08/2016 8:22 AM CDT ED spell Patient: MANUEL ADKINS Age: 70 years Sex: Male : 1945 Author: KAYY TEAGUE MD Attachments: None Associated Diagnosis: Adverse Effect Drug Sequela; Spells Undifferentiated Basic Information Additional information: Chief Complaint from Nursing Triage Note : Chief Complaint Description 02/08/2016 7:58 CDT Chief Complaint Description see triage note 02/08/2016 7:54 CDT Chief Complaint Description 70 year old male admitted to ER wtih complaint of awakening with some dizziness and took bp and it was elevated. . History of Present Illness 70 yo m w/ anterior STEMI on 08/24/15 s/p SANTIAGO w/ stress echo done on 12/19/14 who is well monitored bycardiology as an outpatient who presents with a spell of jitteriness for about 30 minutes this morning. Mr. Adkins who otherwise has a h/o thyroid cancer s/p surgery in remission states that around 7 AM he made himself half a cup of coffee and was feeling jittery, shakey, and like he head to hold something for steadiness. He did not see the room spinning and did not feel like he would pass out. No specific lateralizing weakness. No nausea, SOB, chest pain, tingling, numbness, or speech changes. He did recently change his carvedilol dose up to 25 mg on and has since been complaining of feelingbad per . He was ambulatory at home and is currently asymptomatic (symptoms resolved sponatneously about 30 minutes in). With his heart attack he had chest pain and never had symptoms like this. He has no h/o DVT, recent surgery, immobilization, and no h/o stroke. No h/o smoking. Review of Systems Constitutional symptoms: No fever. Skin symptoms: No rash. Eye symptoms: No recent vision problems. ENMT symptoms: No nasal congestion. Respiratory symptoms: No shortness of breath. Cardiovascular symptoms: No chest pain. Gastrointestinal symptoms: No abdominal pain or no vomiting. Genitourinary symptoms: No dysuria. Musculoskeletal symptoms: No Muscle pain. Neurologic symptoms: Dizziness, but no numbness or no weakness. Hematologic/Lymphatic symptoms: Bruising tendency negative. Health Status Allergies: Nonallergic Reactions (Selected) Severity Not Documented Clindamycin- No reactions were documented. Contrast Dye- No reactions were documented. Other Environmental- No reactions were documented. Penicillins- No reactions were documented.. Past Medical/ Family/ Social History Medical history: No active or resolved past medical history items have been selected or recorded.. Surgical history: TONSILLECTOMY on . CATARACT IOL, RT/LT - bilateral on . C NONSPECIFIC PROCEDURE - (L) eye retinal surgery on . VASECTOMY on . C BIOPSY OF STOMACH,BY LAPAROTOMY on . C INTESTINE SURG PROCEDURE UNLISTED - 1994 - twisted intestine on .. Family history: No family history items have been selected or recorded.. Physical Examination Vital Signs: Per nurse's notes, Measurements 02/08/2016 7:54 CDT Height 176 cm Height Source Stated Dosing Weight 76.90 kg NA Estimated Weight 76.9 kg . General: Alert and no acute distress. Skin: Warm and dry. Head: Atraumatic. Eye: Pupils are equal, round and reactive to light, extraocular movements are intact and normal conjunctiva. Ears, nose, mouth and throat: Oral mucosa moist. Cardiovascular: Regular rate and rhythm, No murmur and Normal peripheral perfusion. Respiratory: Lungs are clear to auscultation, respirations are non-labored and breath sounds are equal. Gastrointestinal: Non distended. Musculoskeletal: No swelling Neurological: No focal neurological deficit observed, Level of consciousness: Appropriate for age, Cranial nerves II - XII: Intact and Speech: Normal. Psychiatric: Cooperative and appropriate mood & affect. Medical Decision Making Rationale:Presentation consistent with short lived spell of unsteadiness inconsistent with any specific diagnosis in a patient with recent up titration of b-casie and with recent STEMI. I do not believe this was likely ischemic cardiac disease given absence of chest pain, no associated with activity, ECG stable from previous. Arrhythmia is certainly possible. Valvular disease unlikely given recent echocardiogram w/o evidence of such. PE possible but unlikely given absence of risk factors or characteristic features. TIA possible but unlikely given absence of a distribution consistent with a focal deficit. Most concerning here would be the chance of arrhythmia but it is reassuring that the patientis followed by EP for a primary preventative ICD placement (EF 30%) and has excellent cardiology follow-up. Symptoms were short lived and associated with medication change. At this time we will do troponins, CAR, monitor, electrolytes, and if possible would d/C to home with Holter in place versus cards F/U as of tomorrow for consideration of Holter monitoring. Otherwise, would advise patient to down titrate his carvedilol again until able to speak to his cardiology nurse practitioner Teet Martin.Patient is in agreement with this plan. . Electrocardiogram:EKG shows NSR at 75, narrow complex with incomplete left bundle pattern, evidence of old anterior infarct w/ q waves, no new ST segment elevation or T wave inversions concerning for ischemia, left axis deviation, and LVH criteria. Compared to 12/19/15 stable. . Reexamination/ Reevaluation 0909: Patient continues to be asymptomatic. No ectopy on the monitor, NSR in the 70s. Labs pending. Orthostatics negative (very mild decrease in blood pressure with appropriate compensation of HR on standing posture). 0910: Labs w/ negative troponin, electrolytes remarkable only for Na of 133 from 136-which is insufficiently abnormal to cause symptoms. Will d/c to home w/ outpatient f/u. Impression and Plan Diagnosis Adverse Effect Drug Sequela (Discharge, Emergency medicine, Medical) Spells Undifferentiated (Discharge, Emergency medicine, Medical) Plan Condition: Stable. Disposition: Discharged: Time 02/08/2016 09:19:00, to home. Patient was given the following educational materials: SYMPTOMS WITH UNCERTAIN CAUSE, SYMPTOMS WITH UNCERTAIN CAUSE. Follow up with: ; Cardiology Within Tomorrow Call to inform them of symptoms and to elicit advice regarding carvedilol. Until then go back to your previous dose of carvedilol. . Counseled: Patient, Family, Regarding diagnosis, Regarding diagnostic results, Regarding treatment plan, Patient indicated understanding of instructions. Electronically Signed By: KAYY TEAGUE MD On: 02/08/2016 09:21 AM Modified by and Electronically Signed by: KAYY TEAGUE MD On: 02/08/2016 09:09 AM Source: [facility] Draft[employer]CHART Document Id: [id number]} Rosalind Junior R.N. - 02/08/2016 8:00 AM CDT ED Treatments and Procedures ED Treatments and Procedures Entered On: 02/08/2016 9:38 CDT Performed On: 02/08/2016 8:00 CDT by ROSALIND JUNIOR RN Peripheral IV Peripheral IV Assess/Intervention Grid Peripheral IV #1 IV Activity : Start Number of Attempts : 1 Date of Insertion : 02/08/2016 CDT IV Site : Antecubital Laterality : Right Catheter Size : 18 Catheter Type : Safety intima Site Condition : No complications ROSALIND JUNIOR RN - 02/08/2016 9:38 CDT Source: [facility] [email or web address] Document Id: [id number] CDT!12 Rosalind Junior RCarmineN. - 02/08/2016 7:58 AM CDT ED Primary Assessment Document Has Been Updated ED Primary Assessment Entered On: 02/08/2016 7:59 CDT Performed On: 02/08/2016 7:58 CDT by ROSALIND JUNIOR RN Reason For Visit (As Of: 02/08/2016 07:59:51 CDT) Diagnoses(Active) Episodic recurrent vertigo Date: 02/08/2016 ; Diagnosis Type: Reason For Visit ; Confirmation: Complaint of ; Clinical Dx: Episodic recurrent vertigo ; Classification: Medical ; Clinical Service: Emergency medicine ; Code: PNED ; Probability: 0 ; Diagnosis Code: [id number] Triage Chief Complaint Description : see triage note Mode of Arrival ED : Private vehicle Track : Medical Languages : Pakistani Treatments Prior to Arrival : None Is Patient Female and 13-50 no hysterectomy : No ROSALIND JUNIOR RN - 02/08/2016 7:58 CDT Pain Assessment Pain Symptoms : ROSALIND Capellan RN - 02/08/2016 7:58 CDT Respiratory Airway : Patent Respirations : Unlabored Respiratory Pattern : Regular ROSALIND JUNIOR RN - 02/08/2016 7:58 CDT Cardiovascular Heart Rhythm : Regular Skin Color : Normal for ethnicity Skin Description : Dry Skin Temperature : Warm ROSALIND JUNIOR RN - 02/08/2016 7:58 CDT Neurological Last Well Time Known : Not applicable Level of Consciousness : Alert Orientation : Oriented x 3 Characteristics of Speech : Appropriate for age ROSALIND JUNIOR RN - 02/08/2016 7:58 CDT ED Psychosocial Affect/Behavior : Calm Domestic Abuse Concerns : None Behavioral Health Screen/Safety Assmt : No ROSALIND JUNIOR RN - 02/08/2016 7:58 CDT Gastrointestinal Nutrition ED : Adequate ROSALIND JUNIOR RN - 02/08/2016 7:58 CDT Musculoskeletal Fall Prevention Education Provided : NA ROSALIND JUNIOR RN - 02/08/2016 7:58 CDT Social Habits Smoking Status : Never smoker Tobacco 2A : No Tobacco Use/Currently Using : No Tobacco Use/Last 30 Days : No Tobacco Use/Last 12 months : No ROSALIND JUNIOR RN - 02/08/2016 7:58 CDT Alcohol Use Grid Alcohol Use : Yes Type : Beer Frequency : Occasionally ROSALIND JUNIOR RN - 02/08/2016 7:58 CDT Recreational Drug Use Grid Drug Use : None ROSALIND JUNIOR RN - 02/08/2016 7:58 CDT Source: [employer] Document Id: [id number] CDT!46 Rosalind Junior R.N. - 02/08/2016 7:54 AM CDT ED Triage Assessment Document Has Been Updated ED Triage Assessment Entered On: 02/08/2016 7:58 CDT Performed On: 02/08/2016 7:54 CDT by ROSALIND JUNIOR RN Reason For Visit (As Of: 02/08/2016 07:58:35 CDT) Diagnoses(Active) Episodic recurrent vertigo Date: 02/08/2016 ; Diagnosis Type: Reason For Visit ; Confirmation: Complaint of ; Clinical Dx: Episodic recurrent vertigo ; Classification: Medical ; Clinical Service: Emergency medicine ; Code: PNED ; Probability: 0 ; Diagnosis Code: [id number] Triage Chief Complaint Description : 70 year old male admitted to ER wtih complaint of awakening with some dizziness and took bp and it was elevated. Information Given By : Patient Present in Room During Exam/Procedure : Son, Spouse Mode of Arrival ED : Private vehicle Track : Medical Languages : Pakistani Vital Signs Assessed : Yes Treatments Prior to Arrival : None Is Patient Female and 13-50 no hysterectomy : No ROSALIND JUNIOR RN - 02/08/2016 7:54 CDT Vital Signs Temperature Core : 37.1 DegC(Converted to: 98.8 DegF) Apical Heart Rate : 72 /min Respiratory Rate : 14 /min Systolic Blood Pressure : 162 mmHg (>HHI) Diastolic Blood Pressure : 96 mmHg (>HHI) NIBP Mean : 118 mmHg SpO2 : 99 % Oxygen Therapy : Room air Height : 176 cm(Converted to: 5 ft 9 inch(es)) Height Source : Stated Estimated Weight : 76.9 kg Estimated Weight Conversion to Pounds : 169.18 lb ROSALIND JUNIOR RN - 02/08/2016 7:54 CDT Pain Assessment Pain Symptoms : No ROSALIND JUNIOR RN - 02/08/2016 7:54 CDT ED Physician Notification Time ED Physician Notification Time : 02/08/2016 7:57 CDT ROSALIDN JUNIOR RN - 02/08/2016 7:54 CDT YOAN YOAN Level 1 : No YOAN Level 2 : No YOAN Level 3 : Many Vital Signs YOAN : No ROSALIND JUNIOR RN - 02/08/2016 7:54 CDT DCP GENERIC CODE Tracking Acuity : 3 -Urgent Tracking Group : [facility] ROSALIND JUNIOR RN - 02/08/2016 7:54 CDT Allergy (As Of: 02/08/2016 07:58:35 CDT) Allergies (Active) clindamycin Comments: Comment 1: CLINDAMYCIN ; Created By: ContributorPlasco Energy GroupsystemMATTCoreOpticsGIOVANI_KEREN; Reaction Status: Active ; Category: Drug ; Substance: clindamycin ; Type: Unknown ; Updated By: Contributor_system SkinMedicaVENESSA_SYJace; Reviewed Date: 02/08/2016 7:58 CDT Contrast Dye Comments: Comment 1: CONTRAST DYE ; Created By: ContributorPlasco Energy Groupsystem, MATTCoreOpticsGIOVANI_SYJace; Reaction Status: Active ; Category: Other ; Substance: Contrast Dye ; Type: Unknown ; Updated By: ContributorPlasco Energy GroupsystemMATTCoreOpticsERIKA; Reviewed Date: 02/08/2016 7:58 CDT Other Environmental Comments: Comment 1: SEASONAL ALLERGIES ; Created By: ContributorPlasco Energy GroupsystemMATTElectro-PetroleumONEALG_KEREN; Reaction Status: Active ; Category: Environment ; Substance: Other Environmental ; Type: Unknown ; Updated By: ContributorPlasco Energy Groupsystem SmartKickzGIOVANI_SYJace; Reviewed Date: 02/08/2016 7:58 CDT penicillins Comments: Comment 1: PENICILLINS ; Created By: ContributorPlasco Energy GroupsystemMATTCoreOpticsGIOVANI_KEREN; Reaction Status: Active ; Category: Drug ; Substance: penicillins ; Type: Unknown ; Updated By: ContributorPlasco Energy GroupsystemMATTElectro-PetroleumVENESSA_KEREN; Reviewed Date: 02/08/2016 7:58 CDT ID Screen Drug Resistant Organism : No Travel Within Last 21 Days : No Contact with someone with Ebola : No ROSALIND JUNIOR RN - 02/08/2016 7:54 CDT Immunizations Immunizations Current : Yes Pneumovac : Last 5 years Influenza : This year ROSALIND JUNIOR RN - 02/08/2016 7:54 CDT Source: [facility] [employer] Document Id: [id number] CDT!44 documented in this encounter Miscellaneous Notes Miscellaneous - Rosalind Junior R.N. - 02/08/2016 10:18 AM CDT Valuables/Belongings Valuables/Belongings Entered On: 02/08/2016 10:18 CDT Performed On: 02/08/2016 10:18 CDT by ROSALIND JUNIOR RN Valuables/Belongings Belongings Sent Home With : patient ROSALIND JUNIOR RN - 02/08/2016 10:18 CDT Source: [employer] Document Id: [id number] CDT!3 Miscellaneous - Violeta, Historical Provider Ser - 02/08/2016 10:10 AM CDT Coding Summary-Paper Based CODING DATE: 02/17/2016 FINAL [facility] STATUS: * Discharged to Home or Self Care PAYOR: Medicare ADMIT DX: R42 Dizziness and giddiness REASON FOR VISIT DX: R42 Dizziness and giddiness FINAL DX: PRINCIPAL: T50.905A Adverse effect of unspecified drugs, medicaments and biological substances, initial encounter SECONDARY: R42 Dizziness and giddiness Z88.1 Allergy status to other antibiotic agents status Z88.0 Allergy status to penicillin X58.XXXA Exposure to other specified factors, initial encounter Y92.[address] the place of occurrence of the external cause PROCEDURES DOCTOR NAME DATE NOTE: The code number assigned matches the documented diagnosis and / or procedure in the patient's chart. However, the narrative phrase printed from the coding software may appear abbreviated, or result in slightly different terminology. Coded By: TAMIA LUCIANO Date Saved: 02/17/2016 08:36 am Source: [employer] Document Id: [id number] Miscellaneous - Rosalind Junior RDeloris. - 02/08/2016 7:47 AM CDT Facility Charge Ticket 2.0 11.0 DX Facility Charge Ticket 2.0 11.0 DX Entered On: 02/08/2016 10:18 CDT Performed On: 02/08/2016 7:47 CDT by ROSALIND JUNIOR RN Facility Charge Ticket 2.0 11.0 DX ED Other Charges : Standard ED Encounter TVL Level Translated RTF : Episodic recurrent vertigo TVL:3 TVL Level for Facility Charge Ticket : Level 3 Arrival Mode Calc : 1 Mode of Arrival ED : Private vehicle [facility] Mode of Arrival Interpreted : Standard [facility] Process Management : None Order Management RTF : Laboratory CBC (includes Auto Differential),02/08/16 08:38,KAYY TEAGUE MD Completed Comprehensive Metabolic Panel,02/08/16 08:38,KAYY TEAGUE MD Completed Troponin T,02/08/16 08:38,KAYY TEAGUE MD Completed Automated Diff-5 Part,02/08/16 08:41,KAYY TEAGUE MD Completed [facility] Order Management : Lab tests 30 Minutes Critical Care : No Nursing Notes RTF : Triage Forms ED Triage Assessment,02/08/16 07:54,ROSALIND JUNIOR RN Nursing Notes ED Primary Assessment,02/08/16 07:58,ROSALIND JUNIOR RN ED Nurse Reassess,02/08/16 09:40,ROSALIND JUNIOR RN ED Pain Assessment,02/08/16 10:18,ROSALIND JUNIOR RN [facility] Nursing Assessment : Triage and 1-2 nursing assessments [facility] Disposition : Discharge Disposition RTF : discharge [facility] Total Points with Diagnosis Control : 6 [facility] Visit Level : 30308 Level 3 Treatments Prior to Arrival : None ORSALIND JUNIOR RN - 02/08/2016 10:18 CDT Source: [facility] POWERCHART Document Id: [id number] CDT!19 documented in this encounter Plan of Treatment Upcoming Encounters Date Type Specialty Care Team Description 10/11/2022 Appointment Laboratory Medicine Natasha Mullins APRN, C.N.P., M.S.N. [address] [place] [phone] (Wo rk) 10/11/2022 Ancillary Procedure Cardiovascular Disease Natasha Cramer APRN, Radha.N.PCarmine, M.S.N. [address] [place] [phone] (Wo rk) 10/11/2022 Appointment Cardiovascular Disease Natasha Mullins APRN, C.N.PCarmine, M.S.N. [address] [place] [phone] (Wo rk) 10/12/2022 Office Visit Cardiovascular Disease Natasha Mullins APRN, Radha.N.P., M.S.N. [address] [place] [phone] (Wo rk) documented as of this encounter Procedures Procedure Name Priority Date/Time Associated Comments Diagnosis AUTOMATED Routine 02/08/2016 8:30 AM Results f or this DIFFERENTIAL, B CDT procedure ar e in the results section. CBC WITH DIFFERENTIAL, Routine 02/08/2016 8:30 AM Results for this B CDT procedure are i n the results section. TROPONIN T, 5TH GEN, P Routine 02/08/2016 8:30 AM Results for this CDT procedure are i n the results section. COMPREHENSIVE Routine 02/08/2016 8:30 AM Results for this METABOLIC PANEL, S/P CDT procedu re are in the results section. documented in this encounter Results Automated Differential (02/08/2016 8:30 AM CDT) P athologist Signature Absolute 4.47 1.70 - POWERCHART Neutrophils 7.00 109L Lymphocytes 1.22 0.90 - POWERCHART 2.90 X109L Monocytes 0.48 0.30 - POWERCHART 0.90 X109L Eosinophils 0.36 0.05 - POWERCHART 0.50 X109L Absolute 0.01 0.00 - POWERCHART Basophil 0.30 X109L Specimen Anatomical Collection Method Collection Time Receive d Time (Source) Location / / Volume Laterality Blood 02/08/2016 8:30 AM 201 6 8:30 CDT AM CDT Kayy Teague M.D. LAB BLOOD ADD-ON Performing Organization Address City/State/ZIP Code Phon e Number POWERCHART (ABNORMAL) CBC with Differential (02/08/2016 8:30 AM CDT) Analysis Performed At Patho logist Time Signature Leukocytes 6.5 3.5 - 10.5 POWERCHART X109L Erythrocytes 4.42 4.32 - POWERCHART 5.72 M3257G Hemoglobin 13.4 (L) 13.5 - POWERCHART 17.5 GDL Hematocrit 39.1 38.8 - POWERCHART 50.0 MCV 88.5 81.2 - POWERCHART 95.1 FL HX RDW 13.3 11.8 - POWERCHART 15.6 Platelet Count 223 150 - 450 POWERCHART X109L Specimen (Source) Anatomical Collection Method Collection Time Re ceived Time Location / / Volume Laterality Blood 02/08/2016 8:30 AM CDT Kayy Teague M.D. LAB BLOOD ADD-ON Performing Organization Address City/[facility] Phon e Number POWERCHART Troponin T (02/08/2016 8:30 AM CDT) P athologist Signature Troponin T, S <0.01 <=0.01 NGML POWERCHART Comment: 0.03 - 0.1 ng/mL Intermediate Z one Specimen (Source) Anatomical Collection Method Collection Time Re ceived Time Location / / Volume Laterality Blood 02/08/2016 8:30 AM CDT Kayy Teague M.D. LAB BLOOD ADD-ON Performing Organization Address City/State/ZIP Code Phon e Number POWERCHART (ABNORMAL) CMP (Comprehensive Metabolic Panel) (02/08/2016 8:30 AM CDT) Patholo gist Method Time Signature Alanine 33 7 - 55 POWERCHART Amniotransferase, LD UNITL Albumin, S 3.8 3.5 - 5.0 POWERCHART GDL Alkaline 99 45 - 115 POWERCHART Phosphatase, S UL Aspartate 28 8 - 48 POWERCHART Aminotransferase UNITL (AST), S Sodium, S 133.6 (L) 135.0 - POWERCHART 145.0 MMOLL Potassium, S 4.1 3.6 - 4.8 POWERCHART MMOLL Chloride, S 101 98 - 107 POWERCHART MMOLL CO2 Total 22.4 (L) 23.0 - POWERCHART 29.0 MMOLL BUN (Blood Urea 20 (H) 7 - 18 POWERCHART Nitrogen), S MGDL Creatinine 0.80 0.60 - POWERCHART 1.30 MGDL Calcium, Total, S 9.0 8.8 - POWERCHART 10.2 MGDL Anion Gap 10 10 - 20 POWERCHART MMOLL HXeGFR (MDRD) >60 >=60 POWERCHART [id number] 2 eGFR Black/ >60 >=60 POWERCHART [place] [id number] 2 Bilirubin, Total, S 0.4 0.1 - 1.0 POWERCHART MGDL Total Protein, S 7.0 6.3 - 7.9 POWERCHART GDL Glucose 126 70 - 139 POWERCHART MGDL Specimen (Source) Anatomical Collection Method Collection Time Re ceived Time Location / / Volume Laterality Blood 02/08/2016 8:30 AM CDT Kayy Teague M.D. LAB BLOOD ADD-ON Performing Organization Address City/State/ZIP Code Phon e Number POWERCHART documented in this encounter Visit Diagnoses Not on filedocumented in this encounter
--- OUTSIDE RECORDS SUMMARY | 2022-08-27 11:29 | XMS_ITS | Encounter Summary ---
:1945 Author Organization [facility] Address [address] [place] [address] Care Team Providers Name Role Phone Unavailable Primary Care Provider Unavailable Encounter Details Date Type Department Care Team Description 12/19/2015 Hospital Encounter HX NO MAPPING Social History [...] More than 4 times per year 10/15/2019 [facility]? Do you belong to any clubs [...] Natasha Mullins APRN, C.N.P., M.S.N. [address] [place] [phone] (Joanie rk) 10/11/2022 Ancillary Procedure Cardiovascular Disease Natasha Cramer APRN, Radha.N.P., M.S.N. [address] [place] [phone] (Wo rk) 10/11/2022 Appointment Cardiovascular Disease Natasha Mullins APRN, C.N.P., M.S.N. [address] [place] [phone] (Joanie rk) 10/12/2022 Office Visit Cardiovascular Disease Natasha Mullins APRN, C.N.P., M.S.N. [address] [place] [phone] (Joanie rk) documented as of this encounter Visit Diagnoses Not on filedocumented in this encounter
--- OUTSIDE RECORDS SUMMARY | 2022-08-27 11:29 | XMS_ITS | Encounter Summary ---
:1945 Author Organization [facility] Address [address] [place] [address] Care Team Providers Name Role Phone Unavailable Primary Care Provider Unavailable Encounter Details Date Type Department Care Team Description 07/10/2010 Hospital Encounter [facility]X [facility] Cinda Pereira M.D. [address] [place] [phone] (Wo rk) Social History Tobacco Use [...] 07/1001/05/2021 tablet documented as of this encounter Progress Notes Singh Pereira M.D. - 07/10/2010 10:30 AM CDT [id number] Quick Note: Letter sent. Chol high. Should see him back. prob needs order worker then statin. Source: [facility] RWMCHXTRANSXSYS Document Id: [id number] Electronically signed by Conversion, [facility] [employer] [id number] at 04/17/2017 2:18 PM CDT Singh Pereira M.D. - 07/10/2010 10:30 AM CDT [id number] CLINIC ENCOUNTER SUBJECTIVE: The patient presents today to establish care and have an annual physical. He says he has a history of allergic rhinitis and asthma, followed by [facility] in [place]. He says he is on sublingual therapies. They apparently have him on Diflucan for an extended period of time to rid the body of any fungus. Apparently they take care of his asthma medications. He uses Flovent just once daily and he says that is all he needs. He rarely uses the albuterol. He also has some erectile dysfunction and difficulty getting an erection and maintaining an erection. He is able to achieve ejaculation. Normal libido. Sometimes Viagra gives him a headache, but has worked fairly well and he would like a refill on this. He also history of hyperlipidemia. He has not wanted to go on a medication for this as his parents lived a very long time and he is otherwise healthy, although he says he would take medicine if he really had to. Past medical history, family history, social history, medications and allergies are reviewed. SOCIAL HISTORY: [place] is with three children and many grandchildren. 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 Enjoys golfing once in a while. He does not drink or smoke. He was previously followed at [facility], but is changing here for insurance reasons. REVIEW OF SYSTEMS: General, eyes, ENT, neck, respiratory, cardiovascular, gastrointestinal, genitourinary, lymphatic, musculoskeletal, skin, neurologic-negative except for that stated above. OBJECTIVE: General: Patient alert and oriented, pleasant and cooperative with exam. No acute distress. Vitals: See nursing note. Head: Atraumatic, normocephalic. Eyes: Unremarkable. Discs are sharp bilaterally. Ears: Tympanic membranes appear normal bilaterally. Nose: Nares clear. Oropharynx: Clear. Neck: Supple without lymphadenopathy or thyromegaly. Lungs: Clear to auscultation bilaterally. Heart: Regular rate and rhythm, normal S1, S2 without murmurs, rubs or gallops. Abdomen: Soft, nontender, nondistended, no hepatosplenomegaly or other masses appreciated. There are positive bowel sounds. Extremities: No clubbing, cyanosis or edema. Neurologic Exam: Cranial nerves II-XII are grossly intact. Sensation and motor strength grossly intact throughout. Reflexes are 2+ and symmetric. External genitalia appear normal without any testicular masses. No evidence of hernia. Rectal with normal, symmetric prostate. No nodules or tenderness. ASSESSMENT: 1. Annual physical. 2. History of asthma and allergies followed by a specialist. 3. Erectile dysfunction. 4. Hyperlipidemia, diet controlled. PLAN: We will check a fasting lipid, PSA, glucose and he will follow up in a week or two for results and recheck. He would like to avoid a statin if possible. His Viagra is refilled and we discussed appropriate diet and exercise. Health maintenance: Will schedule a colonoscopy. I will get his old records in the meantime. Singh Pereira M.D. DARON/livier cc: Source: [facility] Document Id: [id number] Electronically signed by Conversion, [facility] [employer] [id number] at 04/17/2017 2:18 PM CDT Singh Pereira M.D. - 07/10/2010 10:30 AM CDT [id number] This office note has been dictated. Fasting. F/u. Source: [facility] Document Id: [id number] Electronically signed by Conversion, [facility] [employer] [id number] at 04/17/2017 2:18 PM CDT documented in this encounter Plan of Treatment Upcoming Encounters Date Type Specialty Care Team Description 10/11/2022 Appointment Laboratory Medicine Natasha Mullins APRN, C.N.P., M.S.N. [address] [place] [phone] (Wo rk) 10/11/2022 Ancillary Procedure Cardiovascular Disease Natasha Cramer APRN, Radha.NRenetta, M.S.N. [address] [place] [phone] (Wo rk) 10/11/2022 Appointment Cardiovascular Disease Natasha Mullins APRN, C.NRenetta, M.S.N. [address] [place] [phone] (Joanie rk) 10/12/2022 Office Visit Cardiovascular Disease Natasha Mullins APRN, Radha.N.[place]., M.S.N. [address] [place] [phone] (Joanie rk) documented as of this encounter Visit Diagnoses Not on filedocumented in this encounter
--- OUTSIDE RECORDS SUMMARY | 2022-08-27 11:29 | XMS_ITS | Encounter Summary ---
:1945 Author Organization [facility] Address [address] [place] [address] Care Team Providers Name Role Phone Unavailable Primary Care Provider Unavailable Encounter Details Date Type Department Care Team Description 09/22/[address] [facility] ED Brianne Daniel , P.A.-C. [address] [place], [place] [phone] (Wo rk) Social History Tobacco Use Types [...] or relatives? How often do you attend lutheran or More than 4 times per year 10/15/2019 yazidism services? Do you belong to any clubs or Yes 10/15/2019 organizations such as lutheran groups, unions, fraternal or athletic groups, or [...] Sign Reading Time Taken Comments Blood Pressure 96/53 09/22/2016 8:16 AM NUMERICAL CONTROL MACHINE OPERATOR Pulse - - Temperature - - Respiratory Rate 18 09/22/2016 8:16 AM NUMERICAL CONTROL MACHINE OPERATOR Oxygen Saturation - - Inhaled Oxygen Concentration - - Weight - - Height - - Body Mass Index - - documented in this encounter Discharge Summaries Judy Hernandez R.N. - 09/22/2016 8:35 AM CST ED Depart Summary [facility] Emergency Department Clinical Discharge Summary PERSON INFORMATION Name MANUEL KHANNA Age 71 Years 1945 12:00 AM Sex Male Language Egyptian PCP PCP, ELSEWHERE Marital Status Visit Id Visit Reason Medical problem - minor; Anxiety; General medical/ not feeling well Specialty Enc Type Emergency Med Service Emergency Medicine Referred by Track Group [facility] ED Discharge 09/22/2016 8:35 AM Tracking Id [id number] Checkout 09/22/2016 8:35 AM Checkin 09/22/2016 6:56 AM Acuity 2 -Emergent Dispo Type * Discharged to Home or Self Care Arrival 09/22/2016 6:56 AM Reg Status Complete LOS 000 01:39 Address: [address] [place] [phone] Comment: PROVIDER INFORMATION Provider Role Provider Contact Time JUDY HERNANDEZ RECORD TESTER Nurse 09/22/16 07:04 BRIANNE PORTER PA ED Provider 09/22/16 07:05 DIAGNOSIS Block Bundle Branch Bifascicular; Spells Undifferentiated Comment: PATIENT EDUCATION INFORMATION Instructions: ARRHYTHMIA, Unspecified; SYMPTOMS WITH UNCERTAIN CAUSE Follow up: With: Address: When: Cardiology 10/14/16 Within As Needed With: Address: When: Follow up with primary care provider Within 1 - 2 days Comments: For recheck. Return to ER if new or worsening symptoms Source: [facility] POWERCHART Document Id: [id number] RICAL CONTROL MACHINE OPERATOR Judy Hernandez, R.N. - 09/22/2016 8:35 AM CST ED Discharge Instructions [address] [address] Name: MANUEL KHANNA Date of : 1945 12:00 AM Visit Date: 09/22/2016 6:56 AM [facility] Number: [id number] Address: [address] [place] [phone] Primary Care Provider: PCP, ELSEWHERE IMPORTANT: [facility] in [place] would like to thank you for allowing us to assist you with your healthcare needs. The following includes patient education materials and informationregarding your injury/illness. Diagnosis: Block Bundle Branch Bifascicular; Spells Undifferentiated Follow-Up Instructions: With: Address: When: Cardiology 10/14/16 Within As Needed With: Address: When: Follow up with primary care provider Within 1 - 2 days Comments: For recheck. Return to ER if new or worsening symptoms Your Upcoming Appointments: Date Time Location Provider No Appointments found Patient Education Materials: Arrhythmia Electrical impulses cause the normal heart to beat 60 to 100 times a minute. These impulses come from a natural pacemaker deep inside the heart muscle. Each impulse causes the heart muscle to contract.This causes the blood to flow through the heart and out to the tissues and organs of your body. An arrhythmia is a change from the normal speed or pattern of these electrical impulses. This can cause the heart to beat too fast (tachycardia); or too slow (bradycardia); or in an unsteady pattern (irregular rhythm). Symptoms of arrhythmias Different people experience arrhythmias differently. Sometimes they may not have symptoms, but just notice a change in their pulse. Symptoms can include: ?? Fluttering feeling in the chest ?? Shortness of breath ?? Chest pain or pressure ?? Lightheadedness or dizziness ?? Fainting or nearly fainting ?? Palpitations ?? Tiredness, fatigue, or weakness Causes of arrhythmias Arrhythmias are most often due to heart disease such as: ?? Coronary artery disease (arteriosclerosis) ?? Disease of the heart valves ?? Enlarged heart ?? High blood pressure ?? Heart failure Other causes of arrhythmia include: ?? Certain medicines (such as asthma inhalers and decongestants) ?? Some herbal supplements ?? Cardiac stimulant drugs (such as cocaine, amphetamine, diet pills, certain decongestant cold medicines, caffeine, and nicotine) ?? Excessive alcohol use ?? Medical conditions such as thyroid disease, anemia, anxiety, and panic disorder Arrythmias can often be prevented. The cause and type of arrhythmia determines the best treatment. Sometimes your doctor may want to monitor your heart rate over a 24-hour period or longer. This can help identify the cause of your arrhythmia and find the best treatment. This can be done with a Holter monitor, a portable EKG recording device attached by wires to your chest. You can carry this with youas you perform your routine activities during the monitoring period. Home care Avoid cardiac stimulants (such as cocaine, amphetamine, diet pills, certain decongestant cold medicines, caffeine, and nicotine). If you smoke, stop smoking. Contact your doctor or a local stop-smoking program for help. Tell your doctor about any prescription, [id number] or herbal medicines you take. These may beaffecting your heart rhythm. Follow-up care Follow up with your health care provider or as advised by our staff. If a Holter monitor has been recommended, contact the firewall administrator you have been referred to as soon as you can picking table worker the device. Other outpatient tests may also be arranged for you at that time. Call 911 This is the fastest and safest way to get to the emergency department. The paramedics can also starttreatment on the way to the hospital, if needed. Don't wait until your symptoms are severe to call 911. Other reasons to call 911 besides chest pain include: ?? Chest, shoulder, arm, neck, or back pain ?? Shortness of breath ?? Feeling lightheaded, faint, or dizzy ?? Rapid heart beat ?? Slower than usual heart rate compared to your normal ?? Angina withweakness, dizziness, fainting, heavy sweating, nausea, or vomiting ?? Extreme drowsiness, or confusion ?? Weakness of an arm or leg or one side of the face ?? Difficulty with speech or vision When to seek medical care Remember, things are not always like they are on TV. Sometimes it is not so obvious. You may only feel weak or just not right. If it is not clear or if you have any doubt, call for advice. ?? Seek help for chest pain, or it feels different from usual, even if your symptoms are mild. ?? Do not drive yourself. Have someone else drive. If no one can drive you, call 911. ?? If your doctor has given you medicines to take when you have symptoms, take them, but do not delay getting help while trying to find them. ?? Do not delay. Fast diagnosis and treatment can prevent or limit the amount of heart damage duringa heart attack or stroke. ?? Do not go to your doctor's ofice or a clinic because they will not be able to provide all of the testing or treatment required for this condition. ?? [id number] [place] [address]. All rights reserved. This information is not intended as a substitute for professional medical care. Always follow your healthcare professional's instructions. Symptoms With Uncertain Cause [Adult] Based on [...] get worse ?? New symptoms appear ?? 40[address] [place] [address]. All rights reserved. This information is not [...] if you dont have one. Go to [email or web address] and click on Create Your Account. Then, follow the directions to complete the online form. Youll be asked for your [facility] number which you can find at the top of this document. ED Tests and Procedures: Order Status Automated Diff-5 Part Completed CBC (includes Auto Differential) Completed Comprehensive Metabolic Panel Completed PT/INR Completed Troponin T Completed Urinalysis with Microscopic Completed XR Chest 1 view portable Completed Thyroid Stimulating Hormone Completed Oxygen - ED Ordered Discharge Prescriptions & Home Medications: Medication/Strength Dose Route Frequency Indications/Special Instructions/Comments/Notes carvedilol (carvedilol 25 mg oral tablet) 25 mg Oral two times a day nitroglycerin (Nitrostat 0.4 mg sublingual tablet) 0.4 mg Sublingual every 5 minutes montelukast (Singulair 10 mg oral tablet) 10 mg Oral every evening lisinopril (lisinopril 10 mg oral tablet) 10 mg Oral two times a day levothyroxine (levothyroxine 200 mcg (0.2 mg) oral tablet) 200 mcg Oral once a day clopidogrel (Plavix 75 mg oral tablet) 75 mg Oral once a day cholecalciferol (cholecalciferol 1000 intl units oral tablet) 1,000 IntU Oral once a day cetirizine (cetirizine 10 mg oral tablet, chewable) 10 mg Oral once a day calcium carbonate (calcium carbonate) 500 mg Oral two times a day as needed for Heartburn atorvastatin (Lipitor 80 mg oral tablet) 80 mg Oral once a day (at bedtime) aspirin (Aspir 81) 81 mg Oral once a day fluticasone-salmeterol (Advair Diskus 250 mcg-50 mcg inhalation powder) 1 puff(s) Inhalation once a day Comment: Attention: If you have any medications [...] arrange a ride home with a responsible green party. JED Badillo RONALD JEROME , or responsible green party have received this information and my questions [...] arrange a ride home with a responsible green party. JED Badillo RONALD JEROME , or responsible green party have received this information and my questions have been answered. I have discussed any challenges I see with this plan with the nurse or physician. Patient Signature or Responsible Constitution Party/Relationship Date Time Provider Signature Date Time This document has images extracted. Please consider using [employer] for all your patient education needs. Source: [facility] POWERCHART Document Id: [id number] RICAL CONTROL MACHINE OPERATOR documented in this encounter Medications at Time [...] documented as of this encounter ED Notes Judy Hernandez R.N. - 09/22/2016 8:34 AM CST ED Disposition Summary ED Disposition Summary Entered On: 09/22/2016 8:34 NUMERICAL CONTROL MACHINE OPERATOR Performed On: 09/22/2016 8:34 NUMERICAL CONTROL MACHINE OPERATOR by JUDY HERNANDEZ RECORD TESTER Disposition Summary Present in Room During Exam/Procedure : Spouse Mode of Discharge : Ambulatory Transportation : Private vehicle Printed Discharge Instructions Given to Patient : Yes Patient Status at Discharge from ED : Improved JUDY HERNANDEZ RN - 09/22/2016 8:34 NUMERICAL CONTROL MACHINE OPERATOR Source: [email or web address] Document Id: [id number] NUMERICAL CONTROL MACHINE OPERATOR!7 RICAL CONTROL MACHINE OPERATOR Judy Hernandez R.N. - 09/22/2016 8:34 AM CST ED Pain Assessment ED Pain Assessment Entered On: 09/22/2016 8:34 NUMERICAL CONTROL MACHINE OPERATOR Performed On: 09/22/2016 8:34 NUMERICAL CONTROL MACHINE OPERATOR by JUDY HERNANDEZ RN Pain Assessment Pain Symptoms : No JUDY HERNANDEZ RN - 09/22/2016 8:34 NUMERICAL CONTROL MACHINE OPERATOR Source: [email or web address] Document Id: [id number] NUMERICAL CONTROL MACHINE OPERATOR!3 RICAL CONTROL MACHINE OPERATOR Judy Hernandez R.N. - 09/22/2016 7:05 AM CST ED Primary Assessment Document Has Been Updated ED Primary Assessment Entered On: 09/22/2016 7:05 NUMERICAL CONTROL MACHINE OPERATOR Performed On: 09/22/2016 7:05 NUMERICAL CONTROL MACHINE OPERATOR by JUDY HERNANDEZ RN Reason For Visit (As Of: 09/22/2016 07:05:48 NUMERICAL CONTROL MACHINE OPERATOR) Diagnoses(Active) Anxiety Date: 09/22/2016 ; Diagnosis Type: Reason For Visit ; Confirmation: Complaint of ; Clinical Dx: Anxiety ; Classification: Medical ; Clinical Service: Emergency medicine ; Code: PNED ; Probability: 0 ; Diagnosis Code: [id number] Triage Mode of Arrival ED : Private vehicle Track : Medical Languages : Egyptian Treatments Prior to Arrival : None, Nitroglycerin Is Patient Female and 13-50 no hysterectomy : No JUDY HERNANDEZ RN - 09/22/2016 7:05 NUMERICAL CONTROL MACHINE OPERATOR Pain Assessment Pain Symptoms : No JUDY HERNANDEZ RN - 09/22/2016 7:05 NUMERICAL CONTROL MACHINE OPERATOR Respiratory Airway : Patent Respirations : Unlabored Respiratory Pattern : Regular JUDY HERNANDEZ RN - 09/22/2016 7:05 NUMERICAL CONTROL MACHINE OPERATOR Cardiovascular Heart Rhythm : Regular Skin Color : Normal for ethnicity Skin Description : Dry Skin Temperature : JUDY Enriquez RN - 09/22/2016 7:05 NUMERICAL CONTROL MACHINE OPERATOR Neurological Last Well Time Known : Not applicable Level of Consciousness : Alert Orientation : Oriented x 3 Characteristics of Speech : Appropriate for age JUDY HERNANDEZ RN - 09/22/2016 7:05 NUMERICAL CONTROL MACHINE OPERATOR ED Psychosocial Affect/Behavior : Calm, Cooperative, Appropriate Domestic Abuse Concerns : None Behavioral Health Screen/Safety Assmt : No JUDY HERNANDEZ RN - 09/22/2016 7:05 NUMERICAL CONTROL MACHINE OPERATOR Gastrointestinal Nutrition ED : Adequate JUDY HERNANDEZ RN - 09/22/2016 7:05 NUMERICAL CONTROL MACHINE OPERATOR Musculoskeletal Fall Prevention Education Provided : NA JUDY HERNANDEZ RN - 09/22/2016 7:05 NUMERICAL CONTROL MACHINE OPERATOR Social Habits Smoking Status : Never smoker Tobacco 2A : No Tobacco Use/Currently Using : No Tobacco Use/Last 30 Days : No Tobacco Use/Last 12 months : No JUDY HERNANDEZ RN - 09/22/2016 7:05 NUMERICAL CONTROL MACHINE OPERATOR Alcohol Use Grid Alcohol Use : No JUDY HERNANDEZ RN - 09/22/2016 7:05 NUMERICAL CONTROL MACHINE OPERATOR Recreational Drug Use Grid Drug Use : None JUDY HERNANDEZ RN - 09/22/2016 7:05 NUMERICAL CONTROL MACHINE OPERATOR Source: [facility] POWERCHART Document Id: [id number] NUMERICAL CONTROL MACHINE OPERATOR!43 RICAL CONTROL MACHINE OPERATOR Brianne Daniel P.A.-C. - 09/22/2016 7:05 AM CST Medical problem - minor Patient: MANUEL KHANNA Age: 71 years Sex: Male : 1945 Author: BRIANNE PORTER Attachments: None Associated Diagnosis: Spells Undifferentiated; Block Bundle Branch Bifascicular Basic Information Time seen: Immediately upon arrival. History source: Patient, significant other, EMS. Arrival mode: Ambulance. History limitation: None. Additional information: Chief Complaint from Nursing Triage Note : Chief Complaint Description 09/22/2016 7:01 NUMERICAL CONTROL MACHINE OPERATOR Chief Complaint Description Pt presents to ED after waking at 0330 feeling anxious. denies chest pain or SOB . History of Present Illness Pt awoke at 0430 feeling antsy. Got up and has not been able to fall back asleep. Isn't sure why he feels this way or what is going on though he most recently felt like this on Tuesday. Isn't sure if he's anxious. Pt jokes that his son asked if the recent election was bothering him this badly.Denies chest pain or pressure. Denies jaw, shoulder, or UE discomfort. No numbness, tingling, weakness. Has a mild, chronic cough, unchanged. Denies SOB or difficulty breathing. Tells me he always has some wheezing. Denies f/c/s. Tells me he's always cold. Denies n/v/d. No recent change in meds. Prior to arrival, took his morning meds including an 81 mg ASA. Took 2 SL Nitro though denies havingCP or pressure. Nonsmoker. Denies ETOH use. H/o STEMI in August of 2015 wherein he tells me he had the classic symptoms with pressure and radiating pain into UE. Tells me he was given a good report by Cardiology Kota of this year and told to follow up in 6 months. tells me later that she has noticed he has been a little more irritable at times. They had recently traveled to their daughter's house in [place] and he was always cold and did not have a great appetite. Pt doesn't think his appetite has changed that much recently but has been less in the past year. also reports that he had his Oncology check up recently and that one of his levels was elevated. He had all the appropriate tests done and no further cancer was found. They both admit this was upsetting for a few days until the results were released. Review of Systems Constitutional symptoms: No fever, no chills, no sweats or no weakness. Skin symptoms: No rash. Eye symptoms: Negative except as documented in HPI. ENMT symptoms: H/o seasonal allergies., but no ear pain, no sore throat, no nasal congestion or no sinus pain. Respiratory symptoms: Cough and wheezing, but no shortness of breath. Cardiovascular symptoms: No chest pain, no palpitations, no tachycardia, no syncope, no diaphoresis or no peripheral edema. Gastrointestinal symptoms: No nausea, no vomiting or no diarrhea. Genitourinary symptoms: Negative except as documented in HPI. Musculoskeletal symptoms: Negative except as documented in HPI. Neurologic symptoms: Negative except as documented in HPI. Psychiatric symptoms: Negative except as documented in HPI. Endocrine symptoms: Negative except as documented in HPI. Hematologic/Lymphatic symptoms: Negative except as documented in HPI. Allergy/immunologic symptoms: Negative except as documented in HPI. Health Status Allergies: Nonallergic Reactions (Selected) Severity Not Documented Clindamycin- No reactions were documented. Contrast Dye- No reactions were documented. Other Environmental- No reactions were documented. Penicillins- No reactions were documented.. Medications: (Selected) Documented Medications Documented Advair Diskus 250 mcg-50 mcg inhalation powder: 1 puff(s), Inhalation, Daily, 28 each Aspir 81: 81 mg, PO, Daily Lipitor 80 mg oral tablet: 80 mg, 1 tab(s), PO, Bedtime Nitrostat 0.4 mg sublingual tablet: 0.4 mg, 1 tab(s), SL, q5min Plavix 75 mg oral tablet: 75 mg, 1 tab(s), PO, Daily Singulair 10 mg oral tablet: 10 mg, 1 tab(s), PO, Daily PM calcium carbonate: 500 mg, PO, 2xDay, PRN: Heartburn carvedilol 25 mg oral tablet: 25 mg, 1 tab(s), PO, 2xDay cetirizine 10 mg oral tablet, chewable: 10 mg, 1 tab(s), PO, Daily cholecalciferol 1000 intl units oral tablet: 1,000 IntU, 1 tab(s), PO, Daily, 30 tab(s) levothyroxine 200 mcg (0.2 mg) oral tablet: 200 mcg, 1 tab(s), PO, Daily lisinopril 10 mg oral tablet: 10 mg, 1 tab(s), PO, 2xDay. Past Medical/ Family/ Social History Medical history: [...] history items have been selected or recorded.. Social history: Alcohol use: Denies, Tobacco use: Denies, Family/social situation: . Problem list: No problem items selected or recorded., STEMI, Aug 2015 Iatrogenic hypothyroidism, s/p thyroid resection for cancer Hyperlipidemia Rotator cuff tear, R shoulder. Additional Past History: PCP is at [facility] Cardiology is at [facility] Oncology is at [facility]. Physical Examination Vital Signs: Vital Signs 09/22/2016 7:01 NUMERICAL CONTROL MACHINE OPERATOR Temperature Core 37.2 DegC Apical Heart Rate 76 /min Respiratory Rate 14 /min Systolic Blood Pressure 116 mmHg Diastolic Blood Pressure 74 mmHg Mean Arterial Pressure 88 mmHg BP Location Right upper . General: Alert, no acute distress and Pleasant, smiling, talkative. Skin: Warm, dry and no rash. Head: Normocephalic and atraumatic. Eye: Extraocular movements are intact and normal conjunctiva. Ears, nose, mouth and throat: Oral mucosa moist. Cardiovascular: Regular rate and rhythm, Normal peripheral perfusion and No edema. Respiratory: Respirations are non-labored, Symmetrical chest wall expansion and Mild expiratory wheeze, posterior bases. Chest wall: No tenderness. Musculoskeletal: Normal ROM. normal strength. Gastrointestinal: Soft, Nontender and Non distended. Neurological: Alert and oriented to person, place, time, and situation, No focal neurological deficit observed, CN II-XII intact, normal sensory observed, normal motor observed, normal speech observed,normal coordination observed and Neuro exam unremarkable. Psychiatric: Cooperative. Medical Decision Making Differential Diagnosis:Acute myocardial infarction, dehydration, electrolyte imbalance, thyroid disorder, pneumonia, urinary tract infection, viral syndrome, anxiety. Rationale:Labs and CXR unremarkable at this time. EKG with previous noted L anterior fascicular block. RBBB new. VSS and BP c/w SL Nitro use. Sxs completely resolved shortly after arrival. . Documents reviewed:Emergency department nurses' notes, emergency department records. OrdersLaunch Orders Laboratory: TSH (Order Processing): Stat, 09/22/2016 7:06 NUMERICAL CONTROL MACHINE OPERATOR, Once Urinalysis with Microscopic (Order Processing): Stat, 09/22/2016 7:06 NUMERICAL CONTROL MACHINE OPERATOR, Once, Urine, Clean Void (Midstream) Troponin T (Order Processing): Stat, 09/22/2016 7:06 NUMERICAL CONTROL MACHINE OPERATOR, Once PT/INR (Order Processing): Stat, 09/22/2016 7:06 NUMERICAL CONTROL MACHINE OPERATOR, Once Comprehensive Metabolic Panel (Order Processing): Stat, 09/22/2016 7:06 NUMERICAL CONTROL MACHINE OPERATOR, Once CBC (includes Auto Differential) (Order Processing): Stat, 09/22/2016 7:06 NUMERICAL CONTROL MACHINE OPERATOR, Once Radiology: XR Chest 1 view portable (Order Processing): 09/22/2016 7:06 NUMERICAL CONTROL MACHINE OPERATOR, wheezing, Stat, Patient Bed, Once,09/22/2016 7:06 NUMERICAL CONTROL MACHINE OPERATOR, [facility] ED ED: Oxygen - ED (Order Processing): 09/22/2016 7:06 NUMERICAL CONTROL MACHINE OPERATOR, Once, Stat, 09/22/2016 7:06 NUMERICAL CONTROL MACHINE OPERATOR, PRN to keep oxygen saturation above 95%.. Electrocardiogram:Vent. Rate : 073 BPM Atrial Rate : 073 BPM P-R Int : 176 ms QRS Dur : 156 ms QT Int : 416 ms P-R-T Axes : 055 -57 045 degrees QTc Int : 458 ms Normal sinus rhythm Right bundle branch block with secondary ST-T abnormalities Left anterior fascicular block Bifascicular block Anteroseptal infarct When compared with ECG of 14-APR-2016 07:53, Significant changes have occurred Referred By: BRIANNE PORTER Confirmed By:MIKAELA ALAN MD . Results review:Lab results : Lab View 09/22/2016 7:21 NUMERICAL CONTROL MACHINE OPERATOR UA Color Yellow UA Clarity Clear UA Spec Grav 1.020 UA pH 6.0 UA Protein Negative mg/dL UA Glucose Negative mg/dL UA Ketones Negative mg/dL UA Bili Negative UA Urobilinogen 0.2 mg/dL UA Blood Negative UA Nitrite Negative UA Leuk Est Negative UR WBC Occ-3 /HPF UR RBC Occ-2 /HPF UR Hyaline Cast 4-10 /LPF UR Mucous Present 09/22/2016 7:10 NUMERICAL CONTROL MACHINE OPERATOR Hgb 13.8 g/dL Hct 39.4 % WBC 9.9 x10(9)/L RBC 4.38 x10(12)/L MCV 90.0 fL RDW 12.5 % Platelet 208 x10(9)/L Neutro Absolute 7.52 10(9)/L HI Lymph Absolute 1.35 x10(9)/L Morehouse Absolute 0.60 x10(9)/L Eos Absolute 0.43 x10(9)/L Baso Absolute 0.02 x10(9)/L PT 10.3 second(s) INR 1.0 Sodium Lvl 132 mmol/L LOW Potassium Lvl 4.2 mmol/L Chloride 99 mmol/L CO2 23 mmol/L AGAP 10 mmol/L Alkaline Phosphatase 91 U/L Glucose Lvl 131 mg/dL Creatinine 0.76 mg/dL EGFR (MDRD) >60 mL/min/1.73m2 EGFR (MDRD) >60 mL/min/1.73m2 BUN 17 mg/dL Calcium Lvl 8.7 mg/dL LOW Protein Total 6.9 g/dL Albumin Lvl 3.8 g/dL AST 23 unit/L ALT 24 unit/L Bili Total 0.5 mg/dL Troponin-T <0.01 ng/mL TSH 2.29 mIU/L . Chest X-Ray:22-Sep-2016 07:21:00 Exam: Portable-Chest Indications: wheezing 22-Sep-2016 07:47 CA EXAM: Chest; 1 view IMPRESSION: No cardiomegaly, pulmonary edema, lung consolidation, pleural effusions or pneumothorax. No suspicious bone lesions. Danny Álvarez MD 22-Sep-2016 07:47 . Reexamination/ Reevaluation Vital signs results included from flowsheet : Vital Signs 09/22/2016 7:36 NUMERICAL CONTROL MACHINE OPERATOR Apical Heart Rate 71 /min Respiratory Rate 18 /min SpO2 95 % Systolic Blood Pressure 99 mmHg Diastolic Blood Pressure 57 mmHg BP Location Left upper 09/22/2016 7:33 NUMERICAL CONTROL MACHINE OPERATOR Apical Heart Rate 71 /min SpO2 96 % Systolic Blood Pressure 102 mmHg Diastolic Blood Pressure 79 mmHg BP Location Right upper 09/22/2016 7:25 NUMERICAL CONTROL MACHINE OPERATOR Apical Heart Rate 71 /min Respiratory Rate 16 /min SpO2 96 % Systolic Blood Pressure 100 mmHg Diastolic Blood Pressure 72 mmHg BP Location Right upper 09/22/2016 7:17 NUMERICAL CONTROL MACHINE OPERATOR Apical Heart Rate 73 /min Respiratory Rate 16 /min SpO2 95 % Systolic Blood Pressure 106 mmHg Diastolic Blood Pressure 71 mmHg BP Location Left upper Pt took 2 SL Nitro INSPECTOR ELECTROMECHANICAL. This has caused hypotension for him in the past Course: resolved, Pt states antsy feeling has resolved. Feeling better. Impression and Plan Diagnosis Spells Undifferentiated (Discharge, Emergency medicine, Medical) Block Bundle Branch Bifascicular (Discharge, Emergency medicine, Medical) Plan Condition: Improved, Stable. Disposition: Medically cleared, Discharged: to home. Patient was given the following educational materials: SYMPTOMS WITH UNCERTAIN CAUSE, ARRHYTHMIA, Unspecified. Follow up with: Follow up with primary care provider Within 1 - 2 days For recheck. Return to ER if new or worsening symptoms; ; Cardiology 10/14/16 Within As Needed, Cardiology 10/14/16Within As Needed; Follow up with primary care provider Within 1 - 2 days For recheck. Return to ER if new or worsening symptoms. Counseled: Patient, Family, Regarding diagnosis, Regarding diagnostic results, Regarding treatment plan, Patient indicated understanding of instructions. Notes: Pt with similar sxs January 2016. Resolved at this time without significant findings in the ED.Changes noted on EKG with new RBBB. No c/o CP or discomfort. No acute neurological findings. D/c to home with . Check in with PCP 1-2 days. Suggested PCP f/u for general overall decrease in appetite and mood changes as well. RTER if new or worsening sxs. Has Cardiology appt on 10/14/16. Discussed appropriate use of Nitro for CP, pressure, discomfort so as to avoid hypotensive complications.. Electronically Signed By: BRIANNE PORTER On: 09/22/2016 08:26 AM Modified by and Electronically Signed by: BRIANNE PORTER On: 09/22/2016 07:07 AM Co-Signed By: NICK GOLDBERG MD On: 09/22/2016 07:36 PM Source: [facility] POWERCHART Document Id: [id number]} RICAL CONTROL MACHINE OPERATOR Judy Hernandez, RCarmineN. - 09/22/2016 7:01 AM CST ED Triage Assessment Document Has Been Updated ED Triage Assessment Entered On: 09/22/2016 7:04 NUMERICAL CONTROL MACHINE OPERATOR Performed On: 09/22/2016 7:01 NUMERICAL CONTROL MACHINE OPERATOR by JUDY HERNANDEZ RN Reason For Visit (As Of: 09/22/2016 07:04:52 NUMERICAL CONTROL MACHINE OPERATOR) Diagnoses(Active) Anxiety Date: 09/22/2016 ; Diagnosis Type: Reason For Visit ; Confirmation: Complaint of ; Clinical Dx: Anxiety ; Classification: Medical ; Clinical Service: Emergency medicine ; Code: PNED ; Probability: 0 ; Diagnosis Code: [id number] Triage Chief Complaint Description : Pt presents to ED after waking at 0330 feeling anxious. denies chest pain or SOB Information Given By : Patient Present in Room During Exam/Procedure : Alone Mode of Arrival ED : Private vehicle Track : Medical Languages : Egyptian Vital Signs Assessed : Yes Treatments Prior to Arrival : None, Nitroglycerin Is Patient Female and 13-50 no hysterectomy : No JUDY HERNANDEZ RN - 09/22/2016 7:01 NUMERICAL CONTROL MACHINE OPERATOR Vital Signs Temperature Core : 37.2 DegC(Converted to: 99.0 DegF) Apical Heart Rate : 76 /min Respiratory Rate : 14 /min Systolic Blood Pressure : 116 mmHg Diastolic Blood Pressure : 74 mmHg NIBP Mean : 88 mmHg BP Location : Right upper extremity JUDY HERNANDEZ RN - 09/22/2016 7:01 NUMERICAL CONTROL MACHINE OPERATOR Pain Assessment Pain Symptoms : No JUDY HERNANDEZ RN - 09/22/2016 7:01 NUMERICAL CONTROL MACHINE OPERATOR ED Physician Notification Time ED Physician Notification Time : 09/22/2016 7:04 NUMERICAL CONTROL MACHINE OPERATOR JUDY HERNANDEZ RN - 09/22/2016 7:01 NUMERICAL CONTROL MACHINE OPERATOR YOAN DCP GENERIC CODE Tracking Acuity : 2 -Emergent Tracking Group : [facility] ED JUDY HERNANDEZ RN - 09/22/2016 7:01 NUMERICAL CONTROL MACHINE OPERATOR Allergy (As Of: 09/22/2016 07:04:52 NUMERICAL CONTROL MACHINE OPERATOR) Allergies (Active) clindamycin Comments: Comment 1: CLINDAMYCIN ; Created By: [employer]idel[employer] Security SystemsCORKY higgins_KEREN; Reaction Status: Active ; Category: Drug ; Substance: clindamycin ; Type: Unknown ; Updated By: CORKY Wright_KEREN; Reviewed Date: 09/22/2016 7:04 NUMERICAL CONTROL MACHINE OPERATOR Contrast Dye Comments: Comment 1: CONTRAST DYE ; Created By: TecogenCHAGO vásquez; Reaction Status: Active ; Category: Other ; Substance: Contrast Dye ; Type: Unknown ; Updated By: CHAGO Wright; Reviewed Date: 09/22/2016 7:04 NUMERICAL CONTROL MACHINE OPERATOR Other Environmental Comments: Comment 1: SEASONAL ALLERGIES ; Created By: CHAGO Wright; Reaction Status: Active ; Category: Environment ; Substance: Other Environmental ; Type: Unknown ; Updated By: ContributorCHAGO vásquez; Reviewed Date: 09/22/2016 7:04 NUMERICAL CONTROL MACHINE OPERATOR penicillins Comments: Comment 1: PENICILLINS ; Created By: Contributor_system, [facility]_HX_ALRG_SYS; Reaction Status: Active ; Category: Drug ; Substance: penicillins ; Type: Unknown ; Updated By: Contributor_system, [facility]_HX_ALRG_SYS; Reviewed Date: 09/22/2016 7:04 NUMERICAL CONTROL MACHINE OPERATOR ID Screen Drug Resistant Organism : No JUDY HERNANDEZ RN - 09/22/2016 7:01 NUMERICAL CONTROL MACHINE OPERATOR Immunizations Immunizations Current : Yes Influenza : This year JUDY HERNANDEZ RN - 09/22/2016 7:01 NUMERICAL CONTROL MACHINE OPERATOR [facility] Document Id: [id number] NUMERICAL CONTROL MACHINE OPERATOR!32 RICAL CONTROL MACHINE OPERATOR documented in this encounter Miscellaneous Notes Miscellaneous - Conversion, Historical Provider Ser - 09/22/2016 8:35 AM NUMERICAL CONTROL MACHINE OPERATOR Coding Summary-Paper Based CODING DATE: 09/29/2016 FINAL [facility] STATUS: * Discharged to Home or Self Care PAYOR: Medicare ADMIT DX: F41.9 Anxiety disorder, unspecified REASON FOR VISIT DX: F41.9 Anxiety disorder, unspecified FINAL DX: PRINCIPAL: I45.2 Bifascicular block SECONDARY: F41.9 Anxiety disorder, unspecified 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 However, the narrative phrase printed from the coding software may appear abbreviated, or result in slightly different terminology. Coded By: RADHA LANTIGUA Date Saved: 09/29/2016 07:37 am Source: [email or web address] Document Id: [id number] Miscellaneous - Judy Hernandez R.N. - 09/22/2016 8:34 AM CST Valuables/Belongings Valuables/Belongings Entered On: 09/22/2016 8:34 NUMERICAL CONTROL MACHINE OPERATOR Performed On: 09/22/2016 8:34 NUMERICAL CONTROL MACHINE OPERATOR by JUDY HERNANDEZ RN Valuables/Belongings Home Medication Disposition : None brought in with patient JUDY HERNANDEZ RN - 09/22/2016 8:34 NUMERICAL CONTROL MACHINE OPERATOR Source: [facility] POWERCHART Document Id: [id number] NUMERICAL CONTROL MACHINE OPERATOR!3 RICAL CONTROL MACHINE OPERATOR Miscellaneous - Judy Hernandez RJackson - 09/22/2016 6:56 AM CST Facility Charge Ticket 2.0 11.0 DX Facility Charge Ticket 2.0 11.0 DX Entered On: 09/22/2016 8:34 NUMERICAL CONTROL MACHINE OPERATOR Performed On: 09/22/2016 6:56 NUMERICAL CONTROL MACHINE OPERATOR by JUDY HERNANDEZ RN Facility Charge Ticket 2.0 11.0 DX ED Other Charges : Standard ED Encounter TVL Level Translated RTF : Anxiety, Medical problem - minor TVL:3 TVL Level for Facility Charge Ticket : Level 3 Arrival Mode Calc : 16,385 Mode of Arrival ED : Private vehicle [facility] Mode of Arrival Interpreted : Standard [facility] Process Management : None Order Management RTF : Laboratory CBC (includes Auto Differential),09/22/16 07:06,BRIANNE PORTER Completed Comprehensive Metabolic Panel,09/22/16 07:06,BRIANNE PORTER Completed PT/INR,09/22/16 07:06,BRIANNE PORTER Completed Troponin T,09/22/16 07:06,BRIANNE PORTER Completed Urinalysis with Microscopic,09/22/16 07:06,BRIANNE PORTER Completed TSH,09/22/16 07:06,BRIANNE PORTER Completed Automated Diff-5 Part,09/22/16 07:12,BRIANNE PORTER Completed Xray XR Chest 1 view portable,09/22/16 07:06,BRIANNE PORTER Completed EKG / Respiratory / Ancillary Oxygen - ED,09/22/16 07:06,BRIANNE PORTER Ordered [facility] Order Management : EKG, RT, Ancillary Services, Lab tests, Xray - plain films 30 Minutes Critical Care : No Nursing Notes RTF : Triage Forms ED Triage Assessment,09/22/16 07:01,JUDY HERNANDEZ RN Nursing Notes ED Primary Assessment,09/22/16 07:05,JUDY HERNANDEZ RN ED Pain Assessment,09/22/16 08:34,JUDY HERNANDEZ RN [facility] Nursing Assessment : Triage and 1-2 nursing assessments [facility] Disposition : Discharge Disposition RTF : discharge [facility] Total Points with Diagnosis Control : 8 [facility] Visit Level : 89728 Level 4 Treatments Prior to Arrival : None, Nitroglycerin JUDY HERNANDEZ RN - 09/22/2016 8:34 NUMERICAL CONTROL MACHINE OPERATOR Source: [facility] [employer] Document Id: [id number] NUMERICAL CONTROL MACHINE OPERATOR!19 RICAL CONTROL MACHINE OPERATOR documented in this encounter Plan of Treatment Upcoming Encounters Date Type Specialty Care Team Description 10/11/2022 Appointment Laboratory Medicine Natasha Mullins APRN, C.N.P., M.S.N. [address] [place] [address] [phone] (Joanie velázquez) 10/11/2022 Ancillary Procedure Cardiovascular Disease Natasha Cramer APRN, C.N.P., M.S.N. [address] [place] [phone] (Joanie rk) 10/11/2022 Appointment Cardiovascular Disease Natasha Mullins APRN, C.N.P., M.S.N. [address] [place] [phone] (Joanie rk) 10/12/2022 Office Visit Cardiovascular Disease Natasha Mullins APRN, C.N.P., M.S.N. [address] [place] [address] [phone] (Joanie rk) documented as of this encounter Procedures Procedure Name Priority Date/Time Associated Comments Diagnosis URINALYSIS WITH Routine 09/22/2016 7:21 AM Result s for this MICROSCOPIC NUMERICAL CONTROL MACHINE OPERATOR procedure are i n the results section. AUTOMATED Routine 09/22/2016 7:10 AM Results f or this DIFFERENTIAL, B NUMERICAL CONTROL MACHINE OPERATOR procedure ar e in the results section. PROTHROMBIN TIME (PT), Routine 09/22/2016 7:10 AM Results for this P NUMERICAL CONTROL MACHINE OPERATOR procedure are i n the results section. CBC WITH DIFFERENTIAL, Routine 09/22/2016 7:10 AM Results for this B NUMERICAL CONTROL MACHINE OPERATOR procedure are i n the results section. TROPONIN T, 5TH GEN, P Routine 09/22/2016 7:10 AM Results for this NUMERICAL CONTROL MACHINE OPERATOR procedure are i n the results section. THYROID-STIMULATING Routine 09/22/2016 7:10 AM Re sults for this HORMONE-SENSITIVE NUMERICAL CONTROL MACHINE OPERATOR procedure are in (S-TSH) the results section. COMPREHENSIVE Routine 09/22/2016 7:10 AM Results for this METABOLIC PANEL, S/P NUMERICAL CONTROL MACHINE OPERATOR procedu re are in the results section. ECG Routine 09/22/2016 7:01 AM Results f or this NUMERICAL CONTROL MACHINE OPERATOR procedure are i n the results section. documented in this encounter Results (ABNORMAL) Urinalysis, Complete, Includes Microscopic (09/22/2016 7:21 AM NUMERICAL CONTROL MACHINE OPERATOR) athologist Signature Clarity Clear Clear POWERCHART HXUr Color Yellow Colorless POWERCHART Specific 1.020 POWERCHART [place], POCT, U Comment: Reference Range Specific [place]: 1.000-1.035 pH, POCT, Urine 6.0 <5.0 POWERCHART Comment: Reference Range pH: 5.0-8.0 Protein, Ur, Dip Negative Negative MGDL POWERCHAR T Glucose Negative Negative MGDL POWERCHART Ketones, QL(U) Negative Negative MGDL POWERCHART HXBILIRUBIN Negative Negative POWERCHART HXBLOOD Negative Negative POWERCHART Leukocyte Esterase Negative Negative POWERCHART HXNITRITE Negative Negative POWERCHART Urobilinogen 0.2 0.2 MGDL POWERCHART Comment: Reference Range Urobilinogen: 0.2-1.0 mg/dL HXUR WBC. Occ-3 None Seen HPF POWERCHART HXUR RBC. Occ-2 None Seen HPF POWERCHART Casts, Hyaline 4-10 (A) None Seen LPF POWERCHART Mucus Present (A) None Seen POWERCHART Specimen (Source) Anatomical Collection Method Collection Time Re ceived Time Location / / Volume Laterality Urine, First 09/22/2016 7:21 AM Voided NUMERICAL CONTROL MACHINE OPERATOR Brianne Daniel P.A.-C. LAB URINE ORDERABLES Performing Organization Address City/State/ZIP Code Phon e Number POWERCHART (ABNORMAL) Automated Differential (09/22/2016 7:10 AM NUMERICAL CONTROL MACHINE OPERATOR) Patholo gist Method Time Signature Absolute 7.52 (H) 1.70 - POWERCHART Neutrophils 7.00 109L Lymphocytes 1.35 0.90 - POWERCHART 2.90 X109L Monocytes 0.60 0.30 - POWERCHART 0.90 X109L Eosinophils 0.43 0.05 - POWERCHART 0.50 X109L Absolute 0.02 0.00 - POWERCHART Basophil 0.30 X109L Specimen Anatomical Collection Method Collection Time Receive d Time (Source) Location / / Volume Laterality Blood 09/22/2016 7:10 AM 6 7:10 NUMERICAL CONTROL MACHINE OPERATOR AM NUMERICAL CONTROL MACHINE OPERATOR Brianne Daniel P.A.-C. LAB BLOOD ADD-ON Performing Organization Address City/[facility] Code Phon e Number POWERCHART PT (Prothrombin Time) with INR (09/22/2016 7:10 AM NUMERICAL CONTROL MACHINE OPERATOR) Analysis Performed At Patho logist Time Signature Prothrombin 10.3 8.8 - 11.9 POWERCHART Time, P SECONDS INR 1.0 0.9 - 1.2 POWERCHART Comment: Recommended INR for prophylaxis/treatme nt of Venous Thrombosis, Pulmonary Embolism, Myocardial Infarction, and Embolism from Atrial Fibrillation is 2.0- 3.0 (Standard Therapy) Recommended INR for Mechanical Heart Kathy ves and recurrent Systemic Embolism is 2.5-3.5 (Intensive Therapy) Specimen (Source) Anatomical Collection Method Collection Time Re ceived Time Location / / Volume Laterality Blood 09/22/2016 7:10 AM NUMERICAL CONTROL MACHINE OPERATOR Brianne Daniel P.A.-C. LAB BLOOD ADD-ON Performing Organization Address City/State/ZIP Code Phon e Number POWERCHART CBC with Differential (09/22/2016 7:10 AM NUMERICAL CONTROL MACHINE OPERATOR) P athologist Signature Leukocytes 9.9 3.5 - 10.5 POWERCHART X109L Erythrocytes 4.38 4.32 - 5.72 POWERCHART G7839V Hemoglobin 13.8 13.5 - 17.5 POWERCHART GDL Hematocrit 39.4 38.8 - 50.0 POWERCHART MCV 90.0 81.2 - 95.1 POWERCHART FL HX RDW 12.5 11.8 - 15.6 POWERCHART Platelet Count 208 150 - 450 POWERCHART X109L Specimen (Source) Anatomical Collection Method Collection Time Re ceived Time Location / / Volume Laterality Blood 09/22/2016 7:10 AM NUMERICAL CONTROL MACHINE OPERATOR Brianne Daniel P.A.-C. LAB BLOOD ADD-ON Performing Organization Address City/[facility] Code Phon e Number POWERCHART Thyroid-Stimulating Hormone-Sensitive (s-TSH) (09/22/2016 7:10 AM NUMERICAL CONTROL MACHINE OPERATOR) P athologist Signature TSH 2.29 0.27 - 4.20 POWERCHART (Thyrotropin) MIERIK Comment: Biotin has been identified by the [facility] ctluciusr as a potential interfering substance. Higher concentrations of biotin may be found in multivitamins, hair/nail supplements, and workout supplements. If the result does not match clinical observat ions, repeat testing after patient refrains from the use of supplements for at least 12 hours. Specimen (Source) Anatomical Collection Method Collection Time Re ceived Time Location / / Volume Laterality Blood 09/22/2016 7:10 AM NUMERICAL CONTROL MACHINE OPERATOR Brianne Daniel P.A.-C. LAB BLOOD ADD-ON Performing Organization Address [facility] Phon e Number POWERCHART Troponin T (09/22/2016 7:10 AM NUMERICAL CONTROL MACHINE OPERATOR) P athologist Signature Troponin T, S <0.01 <=0.01 NGML POWERCHART Comment: 0.03 - 0.1 ng/mL Intermediate Zone Biotin has been identified by the [facility] cturer as a potential interfering substance. Higher concentrations of biotin may be found in multivitamins, hair/nail supplements, and workout supplements. If the result does not match clinical observat ions, repeat testing after patient refrains from the use of supplements for at least 12 hours. Specimen (Source) Anatomical Collection Method Collection Time Re ceived Time Location / / Volume Laterality Blood 09/22/2016 7:10 AM NUMERICAL CONTROL MACHINE OPERATOR Brianne Daniel P.A.-C. LAB BLOOD ADD-ON Performing Organization Address City/State/ZIP Code Phon e Number POWERCHART (ABNORMAL) CMP (Comprehensive Metabolic Panel) (09/22/2016 7:10 AM NUMERICAL CONTROL MACHINE OPERATOR) [facility] gist Method Time Signature Alanine 24 7 - 55 POWERCHART Amniotransferase, LD UNITL Albumin, S 3.8 3.5 - 5.0 POWERCHART GDL Alkaline 91 45 - 115 POWERCHART Phosphatase, S UL Aspartate 23 8 - 48 POWERCHART Aminotransferase UNITL (AST), S Sodium, S 132 (L) 135 - 145 POWERCHART MMOLL Potassium, S 4.2 3.6 - 4.8 POWERCHART MMOLL Chloride, S 99 98 - 107 POWERCHART MMOLL CO2 Total 23 23 - 29 POWERCHART MMOLL BUN (Blood Urea 17 7 - 18 POWERCHART Nitrogen), S MGDL Creatinine 0.76 0.60 - POWERCHART 1.30 MGDL Calcium, Total, S 8.7 (L) 8.8 - POWERCHART 10.2 MGDL Anion Gap 10 10 - 20 POWERCHART MMOLL HXeGFR (MDRD) >60 >=60 POWERCHART [id number] 2 eGFR Black/ >60 >=60 POWERCHART [place] [id number] 2 Bilirubin, Total, S 0.5 0.1 - 1.0 POWERCHART MGDL Total Protein, S 6.9 6.3 - 7.9 POWERCHART GDL Glucose 131 70 - 139 POWERCHART MGDL Specimen (Source) Anatomical Collection Method Collection Time Re ceived Time Location / / Volume Laterality Blood 09/22/2016 7:10 AM NUMERICAL CONTROL MACHINE OPERATOR Brianne Daniel P.A.-C. LAB BLOOD ADD-ON Performing Organization Address City/State/ZIP Code Phon e Number POWERCHART ECG 12 Lead (09/22/2016 7:01 AM NUMERICAL CONTROL MACHINE OPERATOR) Specimen (Source) Anatomical Collection Method Collection Time Re ceived Time Location / / Volume Laterality 09/22/2016 7:01 AM NUMERICAL CONTROL MACHINE OPERATOR [facility] - 09/22/2016 7:01 AM NUMERICAL CONTROL MACHINE OPERATOR Test Reason : EKG Blood Pressure : / mmHG Vent. Rate : 073 BPM ? Atrial Rate : 073 BPM ?? P-R Int : 176 ms ?QRS D ur : 156 ms ?QT Int : 416 ms ? P-R-T Axe s : 055 -57 045 degrees ?? QTc Int : 458 ms Normal sinus rhythm Right bundle branch block with secondary ST-T abnormalities Left anterior fascicular block Bifascicular block Anteroseptal infarct When compared with ECG of 14-APR-2016 07 :53, Significant changes have occurred Referred By: BRIANNE PORTER ? Confirmed By:MIKAELA ALAN MD Procedure Note Provider, Lupillo Walter - 03/31/2017F ormatting of this note might be different from the original. Test Reason : EKG Blood Pressure : / mmHG Vent. Rate : 073 BPM Atrial Rate : 073 B PM P-R Int : 176 ms QRS Dur : 156 ms QT Int : 416 ms P-R-T Axes : 055 -57 04 5 degrees QTc Int : 458 ms Normal sinus rhythm Right bundle branch block with secondary ST-T abnormalities Left anterior fascicular block Bifascicular block Anteroseptal infarct When compared with ECG of 14-APR-2016 07 :53, Significant changes have occurred Referred By: BRIANNE PORTER Confirmed By:RUTHANN ALAN MD Mikaela Alan M.D. ECG ORDERABLES Performing Organization Address City/State/ZIP Code Phon e Number [facility] [address] [place] [address] documented in this encounter Visit Diagnoses Not on filedocumented in this encounter
--- OUTSIDE RECORDS SUMMARY | 2022-08-27 11:29 | XMS_ITS | Encounter Summary ---
:1945 Author Organization [facility] Address [address] [place] [address] Care Team Providers Name Role Phone Unavailable Primary Care Provider Unavailable Encounter Details Date Type Department Care Team Description 10/14/2016 Hospital Encounter HX NO MAPPING Social History [...] Medicine Natasha Mullins APRN, C.N.P., M.S.N. [address] [place] [phone] (Joanie rk) 10/11/2022 Ancillary Procedure Cardiovascular Disease Natasha Cramer APRN, Radha.N.P., M.S.N. [address] [place] [phone] (Wo rk) 10/11/2022 Appointment Cardiovascular Disease Natasha Mullins APRN, C.N.P., M.S.N. [address] [place] [phone] (Joanie rk) 10/12/2022 Office Visit Cardiovascular Disease Natasha Mullins APRN, C.N.P., M.S.N. [address] [place] [phone] (Joanie rk) documented as of this encounter Visit Diagnoses Not on filedocumented in this encounter
--- OUTSIDE RECORDS SUMMARY | 2022-08-27 11:29 | XMS_ITS | Encounter Summary ---
:1945 Author Organization [facility] Address [address] [place] [address] Care Team Providers Name Role Phone Unavailable Primary Care Provider Unavailable Encounter Details Date Type Department Care Team Description 02/25/2016 Hospital Encounter HX NO MAPPING Social History [...] Medicine Natasha Mullins APRN, C.N.P., M.S.N. [address] [place] [phone] (Joanie rk) 10/11/2022 Ancillary Procedure Cardiovascular Disease Natasha Cramer APRN, Radha.N.P., M.S.N. [address] [place] [phone] (Wo rk) 10/11/2022 Appointment Cardiovascular Disease Natasha Mullins APRN, C.N.P., M.S.N. [address] [place] [phone] (Joanie rk) 10/12/2022 Office Visit Cardiovascular Disease Natasha Mullins APRN, C.N.P., M.S.N. [address] [place] [phone] (Joanie rk) documented as of this encounter Visit Diagnoses Not on filedocumented in this encounter
--- OUTSIDE RECORDS SUMMARY | 2022-08-27 11:29 | XMS_ITS | Encounter Summary ---
:1945 Author Organization [facility] Address [address] [place] [address] Care Team Providers Name Role Phone Unavailable Primary Care Provider Unavailable Encounter Details Date Type Department Care Team Description 10/21/2017 Hospital Encounter HX NO MAPPING Social History [...] day as calcium) chewable tablet needed. Heartburn. carvedilol (COREG) 25 mg Take 1 tablet by 0 10/2110/25/2018 tablet mouth 2 (two) times a day. cholecalciferol (VITAMIN Take 1 tablet by 0 08/2410/15/2020 D3) 1,000 Unit tablet mouth daily. clopidogrel (PLAVIX) 75 Take 1 tablet by 0 201610/25/2018 mg tablet mouth daily. levothyroxine (SYNTHROID, Take 200 mcg by 0 08/2409/05/2019 LEVOTHROID) 200 mcg mouth daily. tablet lisinopril Take 1 tablet by 0 10/21/2017 10/25/20 18 (PRINIVIL,ZESTRIL) 40 mg mouth daily. tablet nitroglycerin (NITROSTAT) Place 1 [...] powder rosuvastatin (CRESTOR) 40 Take 1 tablet by 0 06/201710/12/2018 mg tablet mouth daily. sildenafiL (Viagra) 100 Take by mouth. 0 07/10/20 10 01/05/2021 mg tablet documented as of this encounter Plan of Treatment Upcoming Encounters Date Type Specialty Care Team Description 10/11/2022 Appointment Laboratory Medicine Natasha Mullins APRN, C.N.P., M.S.N. [address] [place] [phone] (Joanie velázquez) 10/11/2022 Ancillary Procedure Cardiovascular Disease Natasha Cramer APRN, C.N.P., M.S.N. [address] [place] [phone] (Joanie velázquez) 10/11/2022 Appointment Cardiovascular Disease Natasha Mullins APRN, C.N.P., M.S.N. [address] [place] [phone] (Joanie rk) 10/12/2022 Office Visit Cardiovascular Disease Natasha Mullins APRN, C.N.P., M.S.N. [address] [place] [phone] (Joanie velázquez) documented as of this encounter Visit Diagnoses Not on filedocumented in this encounter
[2022-08-27 13:06] LABS: SARS PCR* Negative SARS-CoV-2 (Negative)
== END 2022-08-27 11:19 | disposition home or self-care (01) ==
LOC: NPINS 11:18
PROVIDERS: PCP Family Medicine; Visit Provider Internal Medicine Gastroenterology
DX: Z20.822 Contact with and (suspected) exposure to COVID-19 (principal)
CPT/HCPCS: 87635

== ENCOUNTER 2022-08-30 08:33 | Outpatient (CLI) | payer MEDICARE, BC, SELFPAY ==
--- OUTSIDE RECORDS SUMMARY | 2022-08-30 08:36 | XMS_ITS | Encounter Summary ---
:1945 Author Organization [facility] Address [address] [place] [address] Care Team Providers Name Role Phone Elsewhere, Pcp Primary Care Provider Unavailable Reason for Visit Reason Onset Date Comments Outpatient COVID-19 Testing 06/28/2022 Encounter Details Date Type Department Care Team Description 06/28/2022 External Outreach Department of Family Jes Dillon ntact With And Medicine, [place] [address] Roslyn Borrero R.N. (Yadi hernandez) Exposure Street Professional To COVID -19 (Primary Building in ) [place] [address] [place] [address] Social History Tobacco Use Types Packs/Day Years [...] on one Patient refu sed 05/31/2020 occasion? Social Isolation Answer Date Recorded In a [...] as of this encounter Progress Notes Roslyn Dillon R.N. - 06/28/2022 11:59 AM CDT Encounter created for COVID-19 screening. documented in this encounter Plan of Treatment Upcoming Encounters Date Type Specialty Care Team Description 10/11/2022 Appointment Laboratory Medicine Natasha Mullins APRN, Radha.N.PCarmine, M.S.N. [address] [place] [phone] (Wo rk) 10/11/2022 Ancillary Procedure Cardiovascular Disease Natasha Cramer APRN, C.N.P., M.S.N. [address] [place] [phone] (Wo rk) 10/11/2022 Appointment Cardiovascular Disease Natasha Mullins APRN, Radha.N.P., M.S.N. [address] [place] [phone] (Wo rk) 10/12/2022 Office Visit Cardiovascular Disease Natasha Mullins APRN, C.N.P., M.S.N. [address] [place] [phone] (Wo rk) documented as of this encounter Procedures Procedure Name Priority Date/Time Associated Comments Diagnosis SARS CORONAVIRUS 2 Routine 06/28/2022 12:12 Contact With And R samirults for this PCR DETECT, V PM CDT (Suspected) procedure are in Exposure To the results COVID-19 section. documented in this encounter Results SARS Coronavirus 2 PCR Detect, V Asymptomatic (06/28/2022 12:12 PM CDT) [facility] Method Time Signature SARS-CoV-2 Swab, 06/28/2022 [facility] Specimen Nasopharynx 6:13 PM CDT Source SARS-CoV-2 Undetected Undetected 06/28/2022 [facility] RNA by PCR 6:13 PM CDT [...] using the keturah SARS-Co V-2 assay ([employer] performed on the keturah 6800/8800 S ystem has received Emergency Use Authorization (EUA) by the U.S. Food and Drug Administration, and is modified from the endless track vehicle supervisor's instructions wit h a bridging study. Performance characteristics were verified by [facility] inic in a manner consistent with CLIA requirements. Fact sheets for this Emergency Use Autho rization (EUA) assay can be found at the following links: For Healthcare Providers: https://www.SensorDynamics a.gov/media/513971/download For Patients: https://www.fda.gov/media/ 255418/download Specimen Anatomical Collection Method Collection Time Receive d Time (Source) Location / / Volume Laterality Varies 06/28/2022 12:12 06/28/2022 1:35 (Nasopharynx) PM CDT PM CDT Radha Branham APRN.N.P., D.N.P. LAB MICROBIOLOGY - GENERAL ORDERABLES Performing Organization Address City/State/ZIP Code Phon e Number [facility] [address] [place] [address] [place] [address] Laboratory Medicine and Pathology [address] [place] documented in this encounter Visit Diagnoses Diagnosis Contact With And (Suspected) Exposure To COVID-19 - Primary documented in this encounter Additional Health Concerns Infection Onset Date Last Indicated Resolved Time COVID19 Pending 06/28/2022 06/28/2022 06/28/2022 6:14 PM CDT documented as of this encounter Care Teams Filter Washer And Presser Relationship Specialty Start Date End Date Elsewhere, Pcp PCP - General Family Medicine 10/25/18 documented as of this encounter
--- OUTSIDE RECORDS SUMMARY | 2022-08-30 08:36 | XMS_ITS | Clinical Summary ---
:1945 Author Organization [employer] [facility] [place] [address] Care Team Providers Name Role Phone Tucker Currie MD Primary Care Provider [phone] Allergies Active Allergy Reactions Severity Noted Date [...] hypothyroidism fluticasone (50 mcg per Inhale 1 [place] 1 Bottle 12 04/11/2019 Active actuation) nasal [...] Date Type Specialty Care Team Description 08/30/2022 Travel 08/24/2022 Telephone Justen Lyman Proced ure MD 08/05/2022 Telephone Tucker Currie Prior Autho rization MD Sarah (famotidine (PE PCID) 20 mg tablet-PA NOT N EEDED) 08/03/2022 Office Visit Tucker Currie Follow Up ( Colonoscopy done MD Sarah at the [facility]); Immunization/In jection; Immunization/In jection (COVID-19 vacci [...] Name Administration Dates Next Due COVID-19 vaccine (Stream[employer]aver 08/03/2022 30mcg/0.3mL) 12YO+ BIVALENT BOOSTER PF, MDV COVID-19 vaccine ([employer] 04/26/2022 30mcg/0.3mL) 12YO+ SHYLA-SUCROSE PF, MDV COVID-19 vaccine ([employer] 08/05/2021, 01/22/2021, 30mcg/0.3mL) PF, MDV Hepatitis A [...] 10 days, have you been in contact Unable to asse ss 08/30/2022 8:01 AM CDT with someone who was confirmed or suspected to have Coronavirus/COVID-19? 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 Respiratory Rate 18 02/27/2019 2:21 PM CDT Oxygen Saturation 98% 08/03/2022 8:02 AM CDT Inhaled Oxygen Concentration - - Weight 80.7 kg (178 lb) 08/03/2022 8:02 AM CDT Height 170.2 cm (5' 7) 05/12/2022 2:32 PM CDT Body Mass Index 27.88 05/12/2022 2:32 PM CDT Plan of Treatment Upcoming Encounters Date Type Specialty Care Team Description 08/30/2022 Procedure Only Justen Lyman MD Arrived [address] [place], [place] [address] (Wo rk) Health Maintenance Due [...] Procedure Name Priority Date/Time Associated Comments Diagnosis ESOPHAGOGASTRODUODENOSCOPY Routine 08/30/2022 8:01 Iron defici ency AM CDT anemia, unspecified iron deficiency anemia type HEMOGLOBIN Routine 08/02/2022 10:55 Anemia of unknown Result s for AM CDT etiology this procedure are in the results section. [facility] 07/22/2022 12:00 Results for AM CDT this procedure are in the results section. [facility]DIAGNOSTICS 07/21/2022 12:00 Results for AM CDT this procedure are in the results section. [facility]DIAGNOSTICS 07/21/2022 12:00 Results for AM CDT this procedure are in the results section. [facility]AGNOST[facility] 07/21/2022 12:00 Results for AM CDT this procedure are in the results section. COLONOSCOPY SCREENING Routine 06/01/2022 12:00 Screening for R esults for AM CDT colon cancer this procedure are in the results section. SCAN-LABORATORY REPORT 05/31/2022 9:02 Re sults for AM CDT this procedure are in the results section. from Last 3 Months Results (ABNORMAL) HEMOGLOBIN (08/02/2022 10:55 AM CDT) athologist Signature HEMOGLOBIN 12.4 (L) 13.5 - 08/02/2022 [facility] 17.5 g/dL 11:48 AM CDT [facility] MCV 89 80 - 100 08/02/2022 [facility] fL 11:48 AM CDT [facility] Specimen Anatomical Collection Method / Collection Time Recei lida Time (Source) Location / Volume Laterality Blood BLOOD SPECIMEN / Venipuncture / 08/02/2022 10:55 08/02 Unknown Unknown AM CDT 10:55 AM CDT Tucker Currie MD HEMATOLOGY Performing Organization Address City/State/ZIP Code Phon e Number [facility] [address] [place] [address] SCAN [facility]RESP-DIAGNOSTICS (07/22/2022 12:00 AM CDT) Narrative [...] Group MEDICARE PART A MEDICARE PART A [id number] 2008-Presen ATTN: CLAIMS - HB USE ONLY HB ONLY t [address] [place] [address] MEDICARE PART B MEDICARE PART B [id number] 2012-Prese ATTN: CLAIMS - HB USE ONLY HB ONLY nt [address] [place] [address] MEDICARE - PB MEDICARE PB [id number] 2008-Presen ATTN : CLAIMS USE ONLY ONLY t [address] [place] [address] BLUE CROSS BLUE CROSS OF [id number] 2016-Presen [address] [place] [address] Advance Directives Latest Code Status on File Code Status Date Activated Date Inactivated Comments Full Code 07/07/2015 2:09 PM 07/08/2015 2:42 PM Full Code 07/07/2015 12:47 AM 07/07/2015 2:09 PM Care Teams Inside Parts Sales Relationship Specialty Start Date End Date Tucker Currie MD PCP - General 09/15/[address] [place] [address]
--- OUTSIDE RECORDS SUMMARY | 2022-08-30 08:36 | XMS_ITS | Encounter Summary ---
:1945 Author Organization [facility] Address [address] [place] [address] Care Team Providers Name Role Phone Elsewhere, Pcp Primary Care Provider Unavailable Encounter Details Date Type Department Care Team Description 04/08/2022 Hospital Encounter Department of John Mcintyred B Cell Laboratory Medicine Margy A, TRAINING PROGRAM ASSISTANT, Lymp joe Lymph Nodes in [place], C.N.P., D.N.P. Of Multiple Sites [place] [address] [place] [address] ([facility]) [address] [place] [address] [place], [place] [phone] [address] (Work) [phone] Social History Tobacco Use Types Packs/Day Years [...] or relatives? How often do you attend christian or More than 4 times per year 10/15/2019 scientologist services? Do you belong to any clubs or Yes 10/15/2019 organizations such as christian groups, unions, fraternal or athletic groups, or [...] Medicine Natasha Mullins APRN, C.N.Jalen, M.S.N. [address] [place] [phone] (Wo rk) 10/11/2022 Ancillary Procedure Cardiovascular Disease Natasha Cramer APRN, Radha.N.Jalen, M.S.N. [address] [place] [phone] (Wo rk) 10/11/2022 Appointment Cardiovascular Disease Natasha Mullins APRN, C.N.Jalen, M.S.N. [address] [place] [phone] (Wo rk) 10/12/2022 Office Visit Cardiovascular Disease Natasha Mullins APRN, Radha.N.Franklin., M.S.N. [address] [place] [phone] (Wo rk) documented as of this [...] AM CDT 10:41 AM CDT Margy Mcintyre APRN C.N.P., D.N.P. LAB BLOOD ADD- ON Performing Organization Address City/State/ZIP Code Phon e Number [facility]- [address] [place] [address] [place] [address] System [address] LD (Lactate Dehydrogenase) (04/08/2022 10:39 AM [...] Organization Address City/State/ZIP Code Phon e Number [facility]- [address] [place] [address] [place] [address] System in [place] [address] Creatinine with Estimated GFR (04/08/2022 10:39 AM CDT) P athologist Signature Creatinine 0.78 0.74 - 04/08/2022 CNFL 1.35 mg/dL 11:00 AM CDT eGFR-Black/Afric >90 >=60 04/08/2022 CNFL an [place] mL/min/BSA 11:00 AM CDT Comment: ----ADDITIONAL INFORMATION---- [...] Organization Address City/State/ZIP Code Phon e Number [facility]- [address] [place] [address] [place] [address] [place] [address] System in [place] [address] Bl (ABNORMAL) CBC with Differential, Blood (04/08/2022 10:39 [...] Organization Address City/State/ZIP Code Phon e Number [facility]- [address] [place] [address] [place] [address] System [address] Calcium, Total (04/08/2022 10:39 AM CDT) P athologist Signature Calcium, Total, 8.8 8.8 - 10.2 04/08/2022 CNFL P mg/dL 11:00 AM CDT Specimen Anatomical Collection Method Collection Time Receive d Time (Source) Location / / Volume Laterality Blood (Blood, 04/08/2022 10:39 04/08/2022 Venous) AM CDT 10:41 AM CDT Radha Rodas APRN.N.P., D.N.P. LAB BLOOD ADD- ON Performing Organization Address City/[facility]/ZIP Code Phon e Number [address] [address] [place] [address] System [place] [address] Bl Bilirubin, Total (04/08/2022 10:39 AM CDT) P athologist Signature Bilirubin, 0.3 <=1.2 mg/dL 04/08/2022 CNFL Total, P 11:00 AM CDT Specimen Anatomical Collection Method Collection Time Receive d Time (Source) Location / / Volume Laterality Blood (Blood, 04/08/2022 10:39 04/08/2022 Venous) AM CDT 10:41 AM CDT Margy Mcintyre APRN, Radha.N.P., D.N.P. LAB BLOOD ADD- ON Performing Organization Address [facility] Phon e Number [address] [address] [place] [address] AST (Aspartate Aminotransferase) (04/08/2022 10:39 AM [...] LAB BLOOD ADD- ON Performing Organization Address City/[facility]/ZIP Code Phon e Number [address] [address] [place] [address] System [address] Alkaline Phosphatase (04/08/2022 10:39 AM CDT) P athologist Signature Alkaline 98 40 - 129 04/08/2022 [facility] Phosphatase, P U/L 11:00 AM CDT Specimen Anatomical Collection Method Collection Time Receive d Time (Source) Location / / Volume Laterality Blood (Blood, 04/08/2022 10:39 04/08/2022 Venous) AM CDT 10:41 AM CDT Margy Mcintyre APRN, C.N.P., D.N.P. 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
--- OUTSIDE RECORDS SUMMARY | 2022-08-30 08:36 | XMS_ITS | Encounter Summary ---
:1945 Author Organization [facility] Address [address] [place] [address] Care Team Providers Name Role Phone Elsewhere, Pcp Primary Care Provider Unavailable Encounter Details Date Type Department Care Team Description 04/09/2022 Clinical Communication Division of Dionicio Muniz , Hematology in Dante Garcia M.D. [place], [place] [address] [facility] [address] [place] [phone] Social History Tobacco Use Types Packs/Day Years [...] 2:40 PM CDT Patient prefers labs at [place]. Orders placed. Telephone Encounter - Gabbie Levi [...] Medicine Natasha Mullins APRN, Radha.N.Jalen, M.S.N. [address] [place] [phone] (Joanie velázquez) 10/11/2022 Ancillary Procedure Cardiovascular Disease Natasha Cramer APRN, Radha.N.P., M.S.N. [address] [place] [phone] (Joanie velázquez) 10/11/2022 Appointment Cardiovascular Disease Natasha Mullins APRN, C.N.P., M.S.N. [address] [place] [phone] (Joanie velázquez) 10/12/2022 Office Visit Cardiovascular Disease Natasha Mullins APRN, Radha.N.P., M.S.N. [address] [place] [address] (Wo rk) documented as of this encounter Results Reticulocytes (04/16/2022 8:19 AM CDT) athologist Signature Reticulocytes, B 1.44 0.60 - [...] Organization Address City/State/ZIP Code Phon e Number [facility]- [address] [place] [address] [place] [address] System in [place] [address] [place] [address] (ABNORMAL) CBC with Differential, Blood (04/16/2022 8:19 AM CDT) [facility] gist Method Time Signature Hemoglobin 13.1 (L) [...] Organization Address City/State/ZIP Code Phon e Number [facility]- [address] [place] [address] [place] [address] System [address] LD (Lactate Dehydrogenase) (04/16/2022 8:18 AM [...] Organization Address City/State/ZIP Code Phon e Number [facility]- [address] [place], [place] [address] [facility] [place] [address] System in [place] [address] Haptoglobin (04/16/2022 8:18 AM CDT) athologist Signature Haptoglobin, S 168 30 - 200 04/16/2022 E[facility] mg/dL 3:10 PM CDT Specimen Anatomical Collection Method Collection Time Receive d Time (Source) Location / / Volume Laterality Blood (Blood, 04/16/2022 8:18 AM 04/16/20 2:37 Venous) CDT PM CDT Dante Muniz M.D. LAB BLOOD ADD-ON Performing Organization Address City/[facility]/ZIP [facility] Phon e Number [facility]- [address] [place] [address] [address] [facility] [place] [address] [address] Ferritin (04/16/2022 8:18 AM CDT) athologist [...] Organization Address City/State/ZIP Code Phon e Number [facility]- [address] [place], [place] [address] [facility] [place] [facility] [place] [address] System in [place] [address] documented in this encounter Visit Diagnoses Diagnosis 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
--- OUTSIDE RECORDS SUMMARY | 2022-08-30 08:36 | XMS_ITS | Clinical Summary ---
:1945 Author Organization [facility] Address [address] [place] [address] Care Team Providers Name Role Phone Elsewhere, Pcp Primary Care Provider Unavailable Source Comments Patient records contain information from all sites at [facility]. For routine questions regarding patient records, call [phone] during business hours, M-F 8:00 AM - 5:00 PM Central Time. 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 [address] [place] [phone] (Joanie velázquez) 10/11/2022 Ancillary Procedure Cardiovascular Disease Natasha Cramer APRN, Radha.N.P., M.S.N. [address] [place] [phone] (Joanie velázquez) 10/11/2022 Appointment Cardiovascular Disease Natasha Mullins APRN, Radha.N.P., M.S.N. [address] [place] [phone] (Joanie velázquez) 10/12/2022 Office Visit Cardiovascular Disease Natasha Mullins APRN, Radha.N.P., M.S.N. [address] [place] [phone] (Joanie velázquez) Health Maintenance Due Date [...] history exists Medical Devices Implanted Type Area Child Care Cook Device Shelf Model / Identifier Expiration Serial / Date Lot Premier 2.75 X 12 - [id number] Cardiac [place] Implanted: Qty: 1 on 08/24/2015 [employer] Description: Device Child Care Cook - TournEase. Device Status Text - [id number]. [facility] Prl Erin Polyprp Knit 6x6 - [id number] Mesh or Patch Le ft: Inguinal Ethicon 04/13/2025 PMH / Implanted: Qty: 1 on 01/16/2021 by Katty Hartley M.D. at [facility] Procedures Procedure Name Priority Date/Time Associated Comments Diagnosis SARS CORONAVIRUS 2 Routine 06/28/2022 12:12 Contact With And R esults for this PCR DETECT, V PM CDT (Suspected) procedure are in Exposure To the results COVID-19 section. from Last 3 Months Results SARS Coronavirus 2 PCR Detect, V Asymptomatic (06/28/2022 12:12 PM CDT) [facility] Method Time Signature SARS-CoV-2 Swab, 06/28/2022 [facility] Specimen Nasopharynx 6:13 PM CDT Source SARS-CoV-2 Undetected Undetected 06/28/2022 [facility] RNA by PCR 6:13 PM CDT Comment: [...] using the keturah SARS-Co V-2 assay ([employer] performed on the keturah 6800/8800 S ystem has received Emergency Use Authorization (EUA) by the U.S. Food and Drug Administration, and is modified from the clay press operator's instructions wit h a bridging study. Performance characteristics were verified by [facility] inic in a manner consistent with CLIA requirements. Fact sheets for this Emergency Use Autho rization (EUA) assay can be found at the following links: For Healthcare Providers: https://www.WizeHive a.gov/media/689165/download For Patients: https://www.fda.gov/media/ 889553/download Specimen Anatomical Collection Method Collection Time Receive d Time (Source) Location / / Volume Laterality Varies 06/28/2022 12:12 06/28/2022 1:35 (Nasopharynx) PM CDT PM CDT Monika Guzman APRN C.N.P., D.N.P. LAB MICROBIOLOGY - GENERAL ORDERABLES Performing Organization Address City/State/ZIP Code Phon e Number [facility] [address] [place] [address] SUPPORT CENTER [facility] [place] [address] Laboratory Medicine and Pathology [address] [place] from Last 3 Months Insurance Payer Benefit Plan Subscriber ID Effective Phone Address Typ e / Group Dates MEDICARE MEDICARE A [id number] 2012-Pres [address] [place] [address] BLUE CROSS [place] [id number] 2016-Prese [phone] [address] Indemnity BLUE [facility] [place] [id number] [place] [id number] Advance Directives For more information, please contact: [phone] Latest Code Status on File Code Status Date Activated Date Inactivated Comments Full Code 05/27/2021 2:58 PM 05/27/2021 8:21 PM Question Answer Comments Full Code: Not Discussed Due to: Patient does not have the capacity Care Teams Supervisor Particleboard Relationship Specialty Start Date End Date Elsewhere, Pcp PCP - General Family Medicine 10/25/18
--- OUTSIDE RECORDS SUMMARY | 2022-08-30 08:36 | XMS_ITS | Encounter Summary ---
:1945 Author Organization [facility] Address [address] [place] [address] Care Team Providers Name Role Phone Elsewhere, Pcp Primary Care Provider Unavailable Encounter Details Date Type Department Care Team Description 12/17/2021 Hospital Encounter Department of Loni Wu Neoplasm Of Laboratory Medicine Lupillo Love Thyroid (HCC) and Pathology, [address] [place] [address] in [place], [place] [phone] [place] [address] [place], [place] (Work) [phone] Social History Tobacco Use [...] Natasha Mullins APRN, C.N.P., M.S.N. [address] [place] [phone] (Wo rk) 10/11/2022 Ancillary Procedure Cardiovascular Disease Natasha Cramer APRN, C.NRenetta, M.S.N. [address] [place] [phone] (Joanie rk) 10/11/2022 Appointment Cardiovascular Disease Natasha Mullins APRN, C.NRenetta, M.S.N. [address] [place] [phone] (Joanie velázquez) 10/12/2022 Office Visit Cardiovascular Disease Natasha Mullins APRN, C.NRenetta, M.S.N. [address] [place] [phone] (Joanie velázquez) documented as of this encounter Procedures Procedure Name Priority Date/Time Associated Diagnosis Comme nts THYROGLOBULIN, TM, Routine 12/17/2021 10:47 AM Malignant Neopl asm Results for this S TEST DESK SUPERVISOR Of Thyroid (HCC) procedure a re in the results section. THYROID-STIMULATING Routine 12/17/2021 10:47 AM Malignant Neop lasm Results for this HORMONE-SENSITIVE TEST DESK SUPERVISOR Of Thyroid (HCC) proced ure are in (S-TSH) the results section. T4 (THYROXINE), Routine 12/17/2021 10:47 AM Malignant Neoplasm Results for this FREE, S TEST DESK SUPERVISOR Of Thyroid (HCC) procedure a re in the results section. documented in this encounter Results (ABNORMAL) S-TSH (Thyroid-Stimulating Hormone - Sensitive) (12/17/2021 10:47 AM TEST DESK SUPERVISOR) P athologist Signature TSH, Sensitive 0.04 (L) 0.3 - 4.2 12/17/2021 DTL mIU/L 12:11 PM TEST DESK SUPERVISOR Specimen Anatomical Collection Method Collection Time Receive d Time (Source) Location / / Volume Laterality Blood (Blood, 12/17/2021 10:47 12/17/2021 Venous) AM TEST DESK SUPERVISOR 11:43 AM TEST DESK SUPERVISOR Loni Wu M.D. LAB BLOOD ADD-ON Performing Organization Address City/State/[facility] Code Phon e Number [facility] - [address] [place], [place] [address] [place] [address] [place] [address] [address] (ABNORMAL) T4 (Thyroxine), Free (12/17/2021 10:47 AM TEST DESK SUPERVISOR) P athologist Signature T4 1.8 (H) 0.9 - 1.7 12/17/2021 DTL (Thyroxine), ng/dL 12:11 PM TEST DESK SUPERVISOR Free, S Specimen Anatomical Collection Method Collection Time Receive d Time (Source) Location / / Volume Laterality Blood (Blood, 12/17/2021 10:47 12/17/2021 Venous) AM TEST DESK SUPERVISOR 11:43 AM TEST DESK SUPERVISOR Loni Wu M.D. LAB BLOOD ADD-ON Performing Organization Address City/[facility] Phon e Number [facility] - [address] [place], [place] [address] [place] [address] [address] (ABNORMAL) Thyroglobulin, Tumor Marker (12/17/2021 10:47 AM TEST DESK SUPERVISOR) Patholo gist Method Time Signature Thyroglobulin 6.0 (H) <1.8 12/17/2021 [facility] Antibody, S IU/mL 4:14 PM TEST DESK SUPERVISOR Thyroglobulin, <0.1 ng/mL 12/17/2021 [facility] Tumor Marker, S 4:10 PM TEST DESK SUPERVISOR Comment: ----REFERENCE VALUE---- Athyrotic <0.1 Intact Thyroid <=33 Thyroglobulin Interpretation SEE COMMENT 4:14 PM TEST DESK SUPERVISOR SDSC Comment: Quantitation of thyroglobulin may be [...] testing methods are immunoenzymatic assays manufactured by [employer] and performed on the [employer] DXI 800 . Values obtained from different assay met hods or kits may be different and cannot be used inte rchangeably. The results cannot be interpreted as abs olute evidence for the presence or absence of malignant disease. Specimen Anatomical Collection Method Collection Time Receive d Time (Source) Location / / Volume Laterality Blood (Blood, 12/17/2021 10:47 12/17/2021 3:00 Venous) AM TEST DESK SUPERVISOR PM TEST DESK SUPERVISOR Loni Wu M.D. LAB BLOOD ADD-ON Performing Organization Address City/State/ZIP Code Phon e Number [facility] [address] [place] [address] SUPPORT CENTER [facility] [place] [address] Laboratory Medicine and Pathology [address] [place] documented in this encounter Visit Diagnoses Diagnosis Malignant Neoplasm Of Thyroid (HCC) documented in this encounter Care Teams Nitric Acid Plant Operator Relationship Specialty Start Date End Date Elsewhere, Pcp PCP - General Family Medicine 10/25/18 documented as of this encounter
--- OUTSIDE RECORDS SUMMARY | 2022-08-30 08:36 | XMS_ITS | Encounter Summary ---
:1945 Author Organization [facility] Address [address] [place] [address] Care Team Providers Name Role Phone Elsewhere, Pcp Primary Care Provider Unavailable Reason for Visit Reason Comments Colonoscopy locally Encounter Details Date Type Department Care Team Description 05/13/2022 Clinical Division of [facility] Colonoscopy Communication Hematology in Dante Muniz locally [place], M.D. [place] [address] [address] [facility] [address] [place] [phone] Social History Tobacco Use Types Packs/Day Years [...] many times do you More than three gretcehn es a week 10/15/2019 talk on the [...] Miscellaneous Notes Telephone Encounter - Judy Lopez Cinda - 08/23/2022 9:[address] Greenberg -- it appears as if the patient was able to get his colonoscopy on 06/01 locally. The results are in Care Everywhere. Comments from PCP at [facility] On June 01 colonoscopy was done with at [facility]. This was normal. Let me know if you need anything further. Judy Telephone Encounter - Judy Lopez - 05/13/2022 10:57 AM CDT Mr. Khanna called in to let you know that he cannot get a colonoscopy locally until August 13. He would like to know if the situation is more urgent than this, and if he needs to come to [place] to have it done earlier, he is [...] Medicine Natasha Mullins APRN, Radha.N.Jalen, M.S.N. [address] [place] [phone] (Joanie velázquez) 10/11/2022 Ancillary Procedure Cardiovascular Disease Natasha Cramer APRN, Radha.N.P., M.S.N. [address] [place] [phone] (Joanie velázquez) 10/11/2022 Appointment Cardiovascular Disease Natasha Mullins APRN, Radha.N.P., M.S.N. [address] [place] [address] [phone] (Joanie velázquez) 10/12/2022 Office Visit Cardiovascular Disease Natahsa Mullins APRN, C.N.P., M.S.N. [address] [place] [phone] (Wo rk) documented as of this encounter Visit Diagnoses Not on filedocumented in this encounter Additional Health Concerns Infection Onset Date Last Indicated Resolved Time COVID19 Pending 06/28/2022 06/28/2022 06/28/2022 6:14 PM CDT documented as of this encounter Care Teams Human Resources Technician Relationship Specialty Start Date End Date Elsewhere, Pcp PCP - General Family Medicine 10/25/18 documented as of this encounter
--- OUTSIDE RECORDS SUMMARY | 2022-08-30 08:36 | XMS_ITS | Encounter Summary ---
:1945 Author Organization [facility] Address [address] [place] [address] Care Team Providers Name Role Phone Elsewhere, Pcp Primary Care Provider Unavailable Encounter Details Date Type Department Care Team Description 04/16/2022 Hospital Encounter Department of [facility] Unspecif ied B Cell Laboratory Medicine Dante Muniz, Lymp joe Lymph in Mariusz Vazquez M.D. Nodes Of [address] ([facility]) [address] [place] [phone] [place], [place] [phone] (Work) [phone] Social History Tobacco Use Types Packs/Day Years [...] Medicine Natasha Mullins APRN, C.NRenetta, M.S.N. [address] [place] [phone] (Wo rk) 10/11/2022 Ancillary Procedure Cardiovascular Disease Natasha Cramer APRN, C.NRenetta, M.S.N. [address] [place] [phone] (Wo rk) 10/11/2022 Appointment Cardiovascular Disease Natasha Mullins APRN, C.NRenetta, M.S.N. [address] [place] [phone] (Wo rk) 10/12/2022 Office Visit Cardiovascular Disease Natasha Mullins APRN, C.NRenetta, M.S.N. [address] [place] [phone] (Wo rk) documented as of this [...] Organization Address City/State/ZIP Code Phon e Number [facility]- [address] [place], [place] [address] [place] [address] System in [place] 701 [facility] (ABNORMAL) CBC with Differential, Blood (04/16/2022 8:19 [...] Organization Address City/State/ZIP Code Phon e Number [facility]- [address] [place] [address] [place] [address] System in [address] LD (Lactate Dehydrogenase) (04/16/2022 8:18 AM [...] Organization Address City/State/ZIP Code Phon e Number [facility]- [address] [place] [address] [facility] [facility] [place] [address] System in [place] [address]in [address] Haptoglobin (04/16/2022 8:18 AM CDT) P athologist Signature Haptoglobin, S 168 30 - 200 04/16/2022 ECLR mg/dL 3:10 PM CDT Specimen Anatomical Collection Method Collection Time Receive d Time (Source) Location / / Volume Laterality Blood (Blood, 04/16/2022 8:18 AM 04/16/20 22 2:37 Venous) CDT PM CDT Dante Muniz M.D. LAB BLOOD ADD-ON Performing Organization Address City/[facility] Phon e Number [facility]- [address] [place] [address] 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
--- OUTSIDE RECORDS SUMMARY | 2022-08-30 08:36 | XMS_ITS | Encounter Summary ---
:1945 Author Organization [facility] Address [address] [place] [address] Care Team Providers Name Role Phone Elsewhere, Pcp Primary Care Provider Unavailable Reason for Referral Outpatient (Routine) - Authorized Specialty Diagnoses / Procedures Referred By Contact Refer trudi To Contact Hematology Oncology Lauren Brown M.D. [address] [place] [phone] Referral ID Status Reason Start Date Expiration Date Visits V isits Requested Authorized [id number] Authorized 04/09/2022 04/09/2023 1 1 utpatient (Routine) - Closed Specialty Diagnoses / Procedures Referred By Contact Breanne brush To Contact Dante Brown M.D. [facility] [address] [place] [phone] Referral ID Status Reason Start Date Expiration Date Visits Requ ested Visits Authorized [id number] Closed 04/09/2022 04/09/2023 1 1 Reason for Visit Outpatient (Routine) - Closed Specialty Diagnoses / Procedures Referred By Contact Breanne brush To Contact Hematology Oncology Margy Mcintyre [place] APRN, C.N.P., D.N.P. 200 [place] [address] Referral ID Status Reason Start Date Expiration Date Visits Requ ested Visits Authorized [id number] Closed 03/17/2021 03/17/2022 1 1 Encounter Details Date Type Department Care Team Description 04/09/2022 Office Visit Division of Gary Mcintyre APRN C.N.PCarmine, D.N.P. 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 [address] [place] [address] [phone] Lymphoma Nodular Multiple Site (HCC) [place], [place] 200 [place] [phone] Social History Tobacco Use Types Packs/Day Years [...] Natasha Mullins APRN, C.N.P., M.S.N. [address] [place] [phone] (Joanie velázquez) 10/11/2022 Ancillary Procedure Cardiovascular Disease Natasha Cramer APRN, C.N.P., M.S.N. [address] [place] [phone] (Joanie velázquez) 10/11/2022 Appointment Cardiovascular Disease Natasha Mullins APRN, C.N.P., M.S.N. [address] [place] [address] [phone] (Joanie velázquez) 10/12/2022 Office Visit Cardiovascular Disease Natasha Mullins APRN, C.N.P., M.S.N. [address] [place] [address] [phone] (Joanie velázquez) Scheduled Orders Name Type Priority [...] Nodular Expected: 0 04/09/2023 Dehydrogenase) Multiple Site (HCC) (Appro ximate), Expires: 2024 Potassium Lab Routine [...] (HCC) documented in this encounter Care Teams Treasury Consultant Relationship Specialty Start Date End Date Elsewhere, Pcp PCP - General Family Medicine 10/25/18 documented as of this encounter
--- OUTSIDE RECORDS SUMMARY | 2022-08-30 08:36 | XMS_ITS | Encounter Summary ---
:1945 Author Organization [facility] Address [address] [place] [address] Care Team Providers Name Role Phone Elsewhere, Pcp Primary Care Provider Unavailable Reason for Visit Outpatient (Routine) - Closed Specialty Diagnoses / Procedures Referred By Contact Refer red To Contact Dante Brown M.D. 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 Anemia Iron Deficiency [place], [place] [address] [place] [address] [place] [phone] Social History Tobacco Use Types Packs/Day Years [...] More than 4 times per year 10/15/2019 mosque services? Do you belong to any clubs or Yes 10/15/2019 organizations such as congregation groups, unions, [employer] or athletic groups, or school groups? How [...] family member. and communication with other health customer care coordinator related to ongoing patient management concerning Levi [...] iron deficiency. I recommended iron supplementation with hfkq-[id number] ferrous sulfate for the next 3 months. [...] Medicine Natasha Mullins, VY, C.N.P., M.S.N. [address] [place] [address] [phone] (Wo rk) 10/11/2022 Ancillary Procedure Cardiovascular Disease Natasha Cramer APRN, Radha.N.PCarmine, M.S.N. [address] [place] [address] [phone] (Wo rk) 10/11/2022 Appointment Cardiovascular Disease Natasha Mullins APRN, Radha.N.Franklin., M.S.N. [address] [place] [phone] (Wo rk) 10/12/2022 Office Visit Cardiovascular Disease Natasha Mullins APRN, Radha.N.P., M.S.N. 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
--- OUTSIDE RECORDS SUMMARY | 2022-08-30 08:36 | XMS_ITS | Encounter Summary ---
:1945 Author Organization [facility] Address [address] [place] [address] Care Team Providers Name Role Phone Elsewhere, Pcp Primary Care Provider Unavailable Encounter Details Date Type Department Care Team Description 06/28/2022 Admin Visit Department of Family Medicine, [address] [phone] Social History Tobacco Use Types Packs/Day Years [...] Natasha Mullins APRN, C.N.P., M.S.N. [address] [place] [address] (Wo rk) 10/11/2022 Ancillary Procedure Cardiovascular Disease Natasha Cramer APRN, C.N.P., M.S.N. [address] [place] [address] [phone] (Wo rk) 10/11/2022 Appointment Cardiovascular Disease Natasah Mullins APRN, Radha.N.Jalen, M.S.N. [address] [place] [address] [phone] (Wo rk) 10/12/2022 Office Visit Cardiovascular Disease Natasha Mullins APRN, Radha.NLibrado., M.S.N. [address] [place] [address] [phone] (Joanie rk) documented as of this encounter Visit Diagnoses Not on filedocumented in this encounter Additional Health Concerns Infection Onset Date Last Indicated Resolved Time COVID19 Pending 06/28/2022 06/28/2022 06/28/2022 6:14 PM CDT documented as of this encounter Care Teams It Service Manager Relationship Specialty Start Date End Date Elsewhere, Pcp PCP - General Family Medicine 10/25/18 documented as of this encounter
--- OUTSIDE RECORDS SUMMARY | 2022-08-30 08:36 | XMS_ITS | Encounter Summary ---
:1945 Author Organization [facility] Address [address] [place] [address] Care Team Providers Name Role Phone Elsewhere, Pcp Primary Care Provider Unavailable Reason for Referral Outpatient (Routine) - Authorized Specialty Diagnoses / Procedures Referred By Contact Refer red To Contact Endocrinology Loni Wu M .D. [facility] [address] [place] [phone] Referral ID Status Reason Start Date Expiration Date Visits V isits Requested Authorized [id number] Authorized 12/17/2021 12/17/2022 1 1 PLANT WORKER Outpatient (Routine) - Authorized Specialty Diagnoses / Procedures Referred By Contact Refer red To Contact Diagnoses Malignant Neoplasm Of Thyroid Papillary (HCC) Lymphadenopathy Cervical Loni Wu M.D. [facility] Procedures US Head Neck Soft Tissue [address] [place] [phone] Referral ID Status Reason Start Date Expiration Date Visits V isits Requested Authorized [id number] Authorized 12/17/2021 12/17/2022 1 1 PLANT WORKER Reason for Visit Outpatient (Routine) - Closed Specialty Diagnoses / Procedures Referred By Contact Refer red To Contact Endocrinology Loni Wu M .D. [facility] [address] [place] [phone] Referral ID Status Reason Start Date Expiration Date Visits Requ ested Visits Authorized [id number] Closed 05/28/2021 05/28/2022 1 1 Encounter Details Date Type Department Care Team Description 12/17/2021 Office Visit Division of Loni Wu Malignant Neopl asm Of Thyroid Papillary (HCC) (Primary Dx); Endocrinology in [place] Love Lymphadenopathy Cervical [place], [place] [address] [place] [phone] Social History Tobacco Use Types Packs/Day Years [...] Loni Wu M.D. CT CT Job ID: [id number] PLANT WORKER documented in this encounter Plan of Treatment Upcoming Encounters Date Type Specialty Care Team Description 10/11/2022 Appointment Laboratory Medicine Natasha Mullins APRN, C.N.P., M.S.N. [address] [place], [place] [phone] (Wo rk) 10/11/2022 Ancillary Procedure Cardiovascular Disease Natasha Cramer APRN, C.N.PCarmine, M.S.N. [address] [place] [phone] (Wo rk) 10/11/2022 Appointment Cardiovascular Disease Natasha Mullins APRN, C.N.P., M.S.N. [address] [place] [phone] (Wo rk) 10/12/2022 Office Visit Cardiovascular Disease Natasha Mullins APRN, Radha.N.P., M.S.N. 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
--- OUTSIDE RECORDS SUMMARY | 2022-08-30 08:37 | XMS_ITS | Encounter Summary ---
:1945 Author Organization [facility] Address [address] [place] [address] Care Team Providers Name Role Phone Elsewhere, Pcp Primary Care Provider Unavailable Reason for Referral Outpatient (Routine) - Closed Specialty Diagnoses / Procedures Referred By Contact Refer red To Contact Diagnoses Chronic Systolic (Congestive) [facility] Transthoracic (TTE) Danny MCCLELLANNRenetta, M.S.N. [address] [place] [address] [phone] Referral ID Status Reason Start Date Expiration Date Visits Requ ested Visits Authorized [id number] Closed 10/15/2020 10/15/2021 1 1 E WORKING SUPERVISOR Reason for Visit Outpatient (Routine) - Closed Specialty Diagnoses / Procedures Referred By Contact Refer red To Contact Diagnoses Chronic Systolic (Congestive) [facility]) [facility] Transthoracic (TTE) Danny MCCLELLANNRenetta, M.S.N. [address] [place] [phone] Referral ID Status Reason Start Date Expiration Date Visits Requ ested Visits Authorized [id number] Closed 10/15/2020 10/15/2021 1 1 Encounter Details Date Type Department Care Team Description 10/16/2021 Hospital Department of Chai Fagan, Chronic Sy stolic Encounter Cardiovascular VY Kaur, (Congestive) Heart Diseases in [place], C.N.P., M .S.N. Failure (HCC) [place] [address] [facility] [address] [place] [phone] Social History Tobacco Use Types Packs/Day Years [...] Natasha Mullins APRN, C.N.P., M.S.N. [address] [place] [phone] (Joanie velázquez) 10/11/2022 Ancillary Procedure Cardiovascular Disease Natasha Cramer APRN, C.N.P., M.S.N. [address] [place] [phone] (Joanie velázquez) 10/11/2022 Appointment Cardiovascular Disease Natasha Mullins APRN, C.N.P., M.S.N. [address] [place] [address] [place] [phone] (Wo rk) 10/12/2022 Office Visit Cardiovascular Disease Natasha Mullins APRN, C.N.P., M.S.N. [address] [place] [phone] (Wo rk) documented as of this encounter Procedures Procedure Name Priority Date/Time Associated Diagnosis Comme nts (TTE) 2D ECHO Routine 10/16/2021 10:35 AM Chronic Systolic Res ults for this DOPPLER COLOR SHORE WORKING SUPERVISOR (Congestive) Heart procedur e are in Failure (HCC) the results section. documented in this encounter Results (TTE) 2D ECHO DOPPLER COLOR (10/16/2021 10:35 AM SHORE WORKING SUPERVISOR) [facility] gist Method Time Signature Ejection Fraction 54 [...] / / Volume Laterality 10/16/2021 9:03 AM SHORE WORKING SUPERVISOR Impressions 10/16/2021 10:58 AM SHORE WORKING SUPERVISOR LEFT VENTRICLE: ??Normal left ventricular chamber size. [...] effusion. For the complete report, see the iPAYst Documents. Narrative 10/16/2021 10:58 AM SHORE WORKING SUPERVISOR For the complete report, see the iPAYst Documents. Final Impressions 1. Normal left ventricular [...] original. For the complete report, see the iPAYst Documents. Final Impressions 1. Normal left ventricular [...] cava size with normal inspiratory collapse (>50%) (aguliar shepatic view). Normal sinus of Valsalva diameter [...] Natasha Fagan APRN, C.N.P., M.S.N. CV ECHO MA OCEDURES documented in this encounter Visit Diagnoses Diagnosis Chronic Systolic (Congestive) Heart Fail ure (HCC) documented in this encounter Care Teams Countersinker Relationship Specialty Start Date End Date Elsewhere, Pcp PCP - General Family Medicine 10/25/18 documented as of this encounter
--- OUTSIDE RECORDS SUMMARY | 2022-08-30 08:37 | XMS_ITS | Encounter Summary ---
:1945 Author Organization [facility] Address [address] [place] [address] Care Team Providers Name Role Phone Elsewhere, Pcp Primary Care Provider Unavailable Reason for Referral Outpatient (Routine) - Closed Specialty Diagnoses / Procedures Referred By Contact Refer red To Contact Endocrinology Loni Wu M .D. [facility] [address] [place] [phone] Referral ID Status Reason Start Date Expiration Date Visits Requ ested Visits Authorized [id number] Closed 05/28/2021 05/28/2022 1 1 Outpatient (Routine) - Closed Specialty Diagnoses / Procedures Referred By Contact Refer red To Contact Diagnoses Malignant Neoplasm Of Thyroid (HCC) Loni Wu M.D. [facility] Procedures US Head Neck Soft Tissue [address] [place] [address] [phone] Referral ID Status Reason Start Date Expiration Date Visits Requ ested Visits Authorized [id number] Closed 05/28/2021 05/28/2022 1 1 Encounter Details Date Type Department Care Team Description 05/28/2021 Orders Only Division of Endocrinology Loni Wu Ma lignant Neoplasm Of in [place], [facility] milan Love M.D. Thyroid (HCC) (Primary [address] [place]x) [place] [phone] [place], [place] [phone] Social History Tobacco Use Types Packs/Day Years [...] Natasha Mullins APRN, C.N.P., M.S.N. [address] [place] [address] [phone] (Joanie velázquez) 10/11/2022 Ancillary Procedure Cardiovascular Disease Natasha Cramer APRN, C.N.P., M.S.N. [address] [place] [address] [phone] (Joanie velázquez) 10/11/2022 Appointment Cardiovascular Disease Natasha Mullins APRN, C.N.P., M.S.N. [address] [place] [address] [phone] (Joanie velázquez) 10/12/2022 Office Visit Cardiovascular Disease Natasha Mullins APRN, C.N.P., M.S.N. [address] [place] [address] [phone] (Joanie velázquez) Scheduled Referrals Name Type Priority Associated Order Schedule Diagnoses Endocrinology office Outpatient Referral Routine Expected: visit (clinic) 09/28/2021 (Approximate), Expires: 05/28/2024 documented as of this encounter Results US Head Neck Soft Tissue (12/17/2021 12:27 PM GLAZE MIXER) Anatomical Region Laterality Modality Head and Neck, Ultrasound RST LOS, Ultrasound ARZ LOS, N/A Ultrasound Ultrasound FLA LOS Specimen (Source) Anatomical Collection Method Collection Time Re ceived Time Location / / Volume Laterality 12/17/2021 12:27 PM GLAZE MIXER Impressions 12/17/2021 12:36 PM GLAZE MIXER 1. Interval lymph node dissection with removal of the biopsy-proven right level 4 metastasis. 2. Stable biopsy-proven recurrence in th e left mid bed. 3. Scattered bilateral cervical chain ly mph nodes are also unchanged. Narrative 12/17/2021 12:36 PM GLAZE MIXER EXAM: US HEAD NECK SOFT TISSUE COMPARISON: [facility] ultrasound 03/[address] 04/22/2021 [...] EXAM: US HEAD NECK SOFT TISSUE COMPARISON: [facility] ultrasound 03/[address] 04/22/2021 [...] (Thyroid-Stimulating Hormone - Sensitive) (12/17/2021 10:47 AM GLAZE MIXER) P athologist Signature TSH, Sensitive 0.04 (L) 0.3 - 4.2 12/17/2021 DTL mIU/L 12:11 PM GLAZE MIXER Specimen Anatomical Collection Method Collection Time Receive d Time (Source) Location / / Volume Laterality Blood (Blood, 12/17/2021 10:47 12/17/2021 Venous) AM GLAZE MIXER 11:43 AM GLAZE MIXER Loni Wu M.D. LAB BLOOD ADD-ON Performing Organization Address [facility] Phon e Number [facility] - [address] [place] [address] Laboratories[address] (ABNORMAL) T4 (Thyroxine), Free (12/17/2021 10:47 AM GLAZE MIXER) P athologist Signature T4 1.8 (H) 0.9 - 1.7 12/17/2021 DTL (Thyroxine), ng/dL 12:11 PM GLAZE MIXER Free, S Specimen Anatomical Collection Method Collection Time Receive d Time (Source) Location / / Volume Laterality Blood (Blood, 12/17/2021 10:47 12/17/2021 Venous) AM GLAZE MIXER 11:43 AM GLAZE MIXER Loni Wu M.D. LAB BLOOD ADD-ON Performing Organization Address City/[facility] Phon e Number [facility] - [address] (ABNORMAL) Thyroglobulin, Tumor Marker (12/17/2021 10:47 AM GLAZE MIXER) Patholo gist Method Time Signature Thyroglobulin 6.0 (H) <1.8 12/17/2021 SDSC Antibody, S IU/mL 4:14 PM GLAZE MIXER Thyroglobulin, <0.1 ng/mL 12/17/2021 SDSC Tumor Marker, S 4:10 PM GLAZE MIXER Comment: ----REFERENCE VALUE---- Athyrotic <0.1 Intact Thyroid <=33 Thyroglobulin Interpretation SEE COMMENT 2 4:14 PM GLAZE MIXER SDSC Comment: Quantitation of thyroglobulin may be [...] testing methods are immunoenzymatic assays manufactured by [employer] and performed on the [employer] DXI 800 . Values obtained from different assay met hods or kits may be different and cannot be used inte rchangeably. The results cannot be interpreted as abs olute evidence for the presence or absence of malignant disease. Specimen Anatomical Collection Method Collection Time Receive d Time (Source) Location / / Volume Laterality Blood (Blood, 12/17/2021 10:47 12/17/2021 3:00 Venous) AM GLAZE MIXER PM GLAZE MIXER Loni Wu M.D. LAB BLOOD ADD-ON Performing Organization Address City/State/ZIP Code Phon e Number [facility] [address] [place] [address] [facility] [place] [address] Laboratory Medicine and Pathology [address] [place] documented in this encounter Visit Diagnoses Diagnosis Malignant Neoplasm Of Thyroid (HCC) - Pr imary Malignant Neoplasm Of Thyroid (HCC) documented in this encounter Additional Health Concerns Infection Onset Date Last Indicated Resolved Time COVID19 Pending 06/03/2021 06/03/2021 06/03/2021 3:03 PM CDT documented as of this encounter Care Teams Petroleum Refining Firer Relationship Specialty Start Date End Date Elsewhere, Pcp PCP - General Family Medicine 10/25/18 documented as of this encounter
--- OUTSIDE RECORDS SUMMARY | 2022-08-30 08:37 | XMS_ITS | Encounter Summary ---
:1945 Author Organization [facility] Address [address] [place] [phone] Care Team Providers Name Role Phone Elsewhere, Pcp Primary Care Provider Unavailable Reason for Referral Outpatient (Routine) - Closed Specialty Diagnoses / Procedures Referred By Contact Refer red To Contact Diagnoses Seroma Initial Da Carr M.D. [facility] Procedures Incision and Drainage 200 [place] [phone] Referral ID Status Reason Start Date Expiration Date Visits Requ ested Visits Authorized [id number] Closed 06/03/2021 06/03/2022 1 1 Outpatient (Routine) - Closed Specialty Diagnoses / Procedures Referred By Contact Refer red To Contact Otorhinolaryngology Alisson Garrett M.D. [address] [phone] Referral ID Status Reason Start Date Expiration Date Visits Requ ested Visits Authorized [id number] Closed 06/03/2021 06/03/2022 1 1 Reason for Visit Appointment Request (Routine) - Closed Specialty Diagnoses / Procedures Referred By Contact Refer red To Contact Otorhinolaryngology Referral ID Status Reason Start Date Expiration Date Visits Requ ested Visits Authorized [id number] Closed 06/02/2021 06/02/2022 1 1 Encounter Details Date Type Department Care Team Description 06/03/2021 Office Visit Department of Paul Carr Initial Otorhinolaryngology in Da Carballo M.D. (Prim latesha Dx) [place], [place] [address] [place] [phone] Social History Tobacco Use Types Packs/Day [...] - documented in this encounter Progress Notes Da Carr M.D. - 06/03/2021 11:00 AM CDT SUBJECTIVE [...] Da Carr M.D. CT CT Job ID: [id number] Alisson Garrett M.D. - 06/03/2021 11:00 AM [...] fluid was expressed from the wound small [place] drain was placed and sutured in place. [...] of fluid was expressed a quarter- inch [place] drain was placed using a mosquito. This [...] Medicine Natasha Mullins APRN, Radha.N.P., M.S.N. [address] [place] [phone] (Wo rk) 10/11/2022 Ancillary Procedure Cardiovascular Disease Natasha Cramer APRN, C.N.P., M.S.N. [address] [place] [phone] (Joanie rk) 10/11/2022 Appointment Cardiovascular Disease Natasha Mullins APRN, C.N.P., M.S.N. [address] [place] [phone] (Joanie rk) 10/12/2022 Office Visit Cardiovascular Disease Natasha Mullins APRN, C.N.P., M.S.N. [address] [place] [phone] (Joanie rk) Scheduled Referrals Name Type Priority [...] documented as of this encounter Care Teams Home Health Cna Relationship Specialty Start Date End Date Elsewhere, Pcp PCP - General Family Medicine 10/25/18 documented as of this encounter
--- OUTSIDE RECORDS SUMMARY | 2022-08-30 08:37 | XMS_ITS | Encounter Summary ---
:1945 Author Organization [facility] Address [address] [place] [address] Care Team Providers Name Role Phone Elsewhere, Pcp Primary Care Provider Unavailable Reason for Referral Outpatient (Routine) - Authorized Specialty Diagnoses / Procedures Referred By Contact Refer red To Contact Cardiovascular Disease Lauren Mullins [facility] VY Kaur C.N.P., M.S.N. 200 [place] [address] Referral ID Status Reason Start Date Expiration Date Visits V isits Requested Authorized [id number] Authorized 10/16/2021 10/16/2022 1 1 utpatient (Routine) - Authorized Specialty Diagnoses / Procedures Referred By Contact Refer red To Contact Diagnoses Cardiomyopathy Ischemic Chronic Systolic (Congestive) Heart Failure (HCC) Natasha Mullins [facility] Procedures Echo Transthoracic (TTE) Justin MCCLELLAN, M.S.N. [address] [place] [address] [phone] Referral ID Status Reason Start Date Expiration Date Visits V isits Requested Authorized [id number] Authorized 10/16/2021 10/16/2022 1 1 utpatient (Routine) - Authorized Specialty Diagnoses / Procedures Referred By Contact Refer red To Contact Diagnoses Cardiomyopathy Ischemic Chronic Systolic (Congestive) Heart Failure (HCC) Chai Fagan [facility] Procedures ECG 12 Lead Justin MCCLELLAN, M.S.N. [address] [place] [phone] Referral ID Status Reason Start Date Expiration Date Visits V isits Requested Authorized [id number] Authorized 10/16/2021 10/16/2022 1 1 utpatient (Routine) - Authorized Specialty Diagnoses / Procedures Referred By Contact Refer red To Contact Diagnoses Left Anterior Fascicular Block Chai Fagan [facility] Procedures ECG Heart Rhythm Monitor (Holter) Justin MCCLELLAN, M.S.N. [address] [place] [phone] Referral ID Status Reason Start Date Expiration Date Visits V isits Requested Authorized [id number] Authorized 10/16/2021 10/16/2022 1 1 K MACHINE OPERATOR Reason for Visit Outpatient (Routine) - Closed Specialty Diagnoses / Procedures Referred By Contact Refer red To Contact Cardiovascular Disease Lauren Mullins [facility] VY Kaur C.N.P., M.S.N. [address] [place] [phone] Referral ID Status Reason Start Date Expiration Date Visits Requ ested Visits Authorized [id number] Closed 10/15/2020 10/15/2021 1 1 Encounter Details Date Type Department Care Team Description 10/16/2021 Office Visit Department of Chai Fagan, Left Anter ior Fascicular Block (Primary Dx); Cardiovascular VY Kaur, Cardiomyopat hy Ischemic; Medicine in [place], C.N.P., M .S.N. Chronic Systolic (Congestive) Heart Fail ure (HCC); [place] [address] [facility] Atherosclerotic Heart Disease Of [place] Coronary Artery Without Angina Pectoris; [address] [place], [place] [phone] Social History Tobacco Use Types Packs/Day Years [...] More than 4 times per year 10/15/2019 [employer]? Do you belong to any clubs [...] Comments Blood Pressure 98/73 10/16/2021 12:54 PM KAPOK MACHINE OPERATOR Pulse 87 10/16/2021 12:54 PM KAPOK MACHINE OPERATOR Temperature - - Respiratory Rate - - Oxygen Saturation - - Inhaled Oxygen Concentration - - Weight 78.8 kg (173 lb 11.6 oz) 10/16/2021 12:54 PM KAPOK MACHINE OPERATOR Height 173 cm (5' 8.11) 10/16/2021 12:54 PM KAPOK MACHINE OPERATOR Body Mass Index 26.33 10/16/2021 12:54 PM KAPOK MACHINE OPERATOR documented in this encounter Progress Notes Natasha [...] reaction to iodinated contrast [facility] at [facility] 2006. Visi [address] [...] Chronic Systolic (Congestive) Heart Failure (HCC) Euvolemic [place] heart [employer] functional class one. Does not require diuretic. #3 Left Anterior Fascicular Block EKG has changed. He is in sinus with PVCs right bundle-branch block and left anterior fascicular block. Bifascicular block is new. Recommended 24 hour Holter monitor. #4 Atherosclerotic Heart Disease Of [place] Coronary Artery Without Angina Pectoris Asymptomatic. He [...] to his medical regime. Natasha Fagan APRN, C.N.P., M.S.N. 10/16/21 K MACHINE OPERATOR documented in this encounter Plan of Treatment Upcoming Encounters Date Type Specialty Care Team Description 10/11/2022 Appointment Laboratory Medicine Natasha Mullins APRN, C.NRenetta, M.S.N. [address] [place] [phone] (Joanie rk) 10/11/2022 Ancillary Procedure Cardiovascular Disease Natasha Cramer APRN, C.NRenetta, M.S.N. [address] [place] [phone] (Joanie velázquez) 10/11/2022 Appointment Cardiovascular Disease Natasha Mullins APRN, C.NRenetta, M.S.N. [address] [place] [phone] (Joanie velázquez) 10/12/2022 Office Visit Cardiovascular Disease Natasha Mullins APRN, C.NRenetta, M.S.N. [address] [place] [phone] (Joanie velázquez) Scheduled Orders Name Type Priority [...] e), (Congestive) Heart Expires: Failure (HCC) 01/14/2023 ECG 12 Lead ECG Routine Cardiomyopathy Expected: Ischemic 10/16/2022 Chronic Systolic (Approximat e), (Congestive) Heart Expires: Failure ([facility]) 01/14/2023 Echo Transthoracic Echocardiography Routine Cardiomyopathy Exp ected: (TTE) Ischemic 10/16/2022 Chronic Systolic (Approximat e), (Congestive) Heart Expires: Failure (HCC) 01/14/2023 Scheduled Referrals Name Type Priority Associated Order Schedule Diagnoses Cardiovascular Disease Outpatient Referral Routine Expected: office visit (clinic) 2021 (Approximate), Expires: 01/14/2023 documented as of this encounter Results HOLTER MONITOR - IN CLINIC DIFFERENTIAL SPECIALIST (10/21/2021 2:44 PM KAPOK MACHINE OPERATOR) [facility] Method Time Signature Min Heart Rate 60 [...] AF Duration 0 duration INFOBIONIC MOME AF [place] 0 percent INFOBIONIC MOME Symptom Count 0 count INFOBIONIC MOME Specimen (Source) Anatomical Collection Method Collection Time Re ceived Time Location / / Volume Laterality 10/20/2021 2:04 PM KAPOK MACHINE OPERATOR Narrative INFOBIONIC MOME - 10/22/2021 2:50 PM KAPOK MACHINE OPERATOR 1. The basic rhythm was sinus. The [...] than 1%. 4.No symptomatic events were noted. Tip Length Checker: Heather Wade/ Te Dominguez Procedure Note Hi Khan M.D. - 10/22/2021Formatt [...] than 1%. 4.No symptomatic events were noted. Tip Length Checker: Heather Wade/ Te Dominguez Natasha Fagan APRN C.N.P., M.S.N. CV CARDIAC SERVICES PROCEDURES Performing Organization Address City/State/ZIP Code Phon e Number INFOBIONIC MOME INFOBIONIC MOME NA documented in this encounter Visit Diagnoses Diagnosis Left Anterior Fascicular Block - Primary Cardiomyopathy Ischemic Chronic Systolic (Congestive) Heart Fail ure (HCC) Atherosclerotic Heart Disease Of [place] Coronary Artery Without Angina Pectoris Hyperlipidemia Left Anterior Fascicular Block documented in this encounter Care Teams Radar Tester Relationship Specialty Start Date End Date Elsewhere, Pcp PCP - General Family Medicine 10/25/18 documented as of this encounter
--- OUTSIDE RECORDS SUMMARY | 2022-08-30 08:37 | XMS_ITS | Encounter Summary ---
:1945 Author Organization [facility] Address [address] [place] [address] Care Team Providers Name Role Phone Elsewhere, Pcp Primary Care Provider Unavailable Reason for Referral Outpatient (Routine) - Authorized Specialty Diagnoses / Procedures Referred By Contact Refer red To Contact Diagnoses Left Anterior Fascicular [facility] Heart Rhythm Monitor (Holter) Justin MCCLELLAN, M.S.N. [address] [place] [phone] Referral ID Status Reason Start Date Expiration Date Visits V isits Requested Authorized [id number] Authorized 10/16/2021 10/16/2022 1 1 RVISOR BUFFING AND PASTING Reason for Visit Outpatient (Routine) - Authorized Specialty Diagnoses / Procedures Referred By Contact Refer red To Contact Diagnoses Left [facility]terior [facility]icular [facility] Heart Rhythm Monitor (Holter) Justin MCCLELLAN, M.S.N. [address] [place] [phone] Referral ID Status Reason Start Date Expiration Date Visits V isits Requested Authorized [id number] Authorized 10/16/2021 10/16/2022 1 1 Encounter Details Date Type Department Care Team Description 10/20/2021 Hospital Department of Chai Rylan, Left Anter ior Encounter Cardiovascular VY Kaur Fascicular B lock Diseases in [place], C.N.P., M .S.N. [place] 200 [facility] [address] [place] [phone] Social History Tobacco Use Types Packs/Day Years [...] Medicine Natasha Mullins APRN, C.N.P., M.S.N. [address] [place] [phone] (Joanie velázquez) 10/11/2022 Ancillary Procedure Cardiovascular Disease Natasha Cramer APRN, C.N.P., M.S.N. [address] [place] [address] [phone] (Joanie velázquez) 10/11/2022 Appointment Cardiovascular Disease Natasha Mullins APRN, C.N.P., M.S.N. [address] [place] [address] [place] [phone] (Wo rk) 10/12/2022 Office Visit Cardiovascular Disease Natasha Mullins APRN, C.N.P., M.S.N. [address] [place] [phone] (Wo rk) documented as of this encounter Procedures Procedure Name Priority Date/Time Associated Diagnosis Comme nts HOLTER MONITOR - IN Routine 10/21/2021 2:44 PM Left Anterior R esults for this CLINIC FINANCE DIRECTOR SUPERVISOR BUFFING AND PASTING Fascicular Block procedure are in the results section. documented in this encounter Results HOLTER MONITOR - IN CLINIC FINANCE DIRECTOR (10/21/2021 2:44 PM SUPERVISOR BUFFING AND PASTING) [facility] Method Time Signature Min Heart Rate 60 [...] AF Duration 0 duration INFOBIONIC MOME AF [place] 0 percent INFOBIONIC MOME Symptom Count 0 count INFOBIONIC MOME Specimen (Source) Anatomical Collection Method Collection Time Re ceived Time Location / / Volume Laterality 10/20/2021 2:04 PM SUPERVISOR BUFFING AND PASTING Narrative INFOBIONIC MOME - 10/22/2021 2:50 PM SUPERVISOR BUFFING AND PASTING 1. The basic rhythm was sinus. The [...] than 1%. 4.No symptomatic events were noted. Production Hand: BerganLisa McKenzi e Procedure Note Hi Khan M.D. [...] than 1%. 4.No symptomatic events were noted. Production Hand: Lisa Wade McKenzi e Natasha Jasonprateekophelia Rylan MCCLELLAN C.N.P., M.S.N. CV CARDIAC SERVICES PROCEDURES Performing Organization Address City/State/ZIP Code Phon e Number INFOBIONIC MOME INFOOBINNANIC MOME NA documented in this encounter Visit Diagnoses Diagnosis Left Anterior Fascicular Block documented in this encounter Care Teams Display Specialist Relationship Specialty Start Date End Date Elsewhere, Pcp PCP - General Family Medicine 10/25/18 documented as of this encounter
--- OUTSIDE RECORDS SUMMARY | 2022-08-30 08:37 | XMS_ITS | Encounter Summary ---
:1945 Author Organization [facility] Address [address] [place] [address] Care Team Providers Name Role Phone Elsewhere, Pcp Primary Care Provider Unavailable Encounter Details Date Type Department Care Team Description 10/16/2021 Hospital Encounter Department of Justus Mullins Systolic Laboratory Medicine VY Kaur, (Conges tive) Heart and Pathology, C.N.P., M.S.N. Failure ([facility]) [facility], in [address] [facility] [phone] [place] [address] [place], [place] (Work) [phone] Social History Tobacco Use Types Packs/Day Years [...] Date acetaminophen (TYLENOL) Take 2 capsules 0 07/14/2 021 500 mg capsule (1,000 mg total) [...] Medicine Natasha Mullins APRN, Radha.N.Jalen, M.S.N. [address] [place] [phone] (Joanie velázquez) 10/11/2022 Ancillary Procedure Cardiovascular Disease Natasha Cramer APRN, Radha.N.P., M.S.N. [address] [place] [phone] (Joanie velázquez) 10/11/2022 Appointment Cardiovascular Disease Natasha Mullins APRN, Radha.N.P., M.S.N. [address] [place] [phone] (Joanie rk) 10/12/2022 Office Visit Cardiovascular Disease Natasha Mullins APRN, C.N.P., M.S.N. [address] [place] [phone] (Wo rk) documented as of this encounter Procedures Procedure Name Priority Date/Time Associated Comments Diagnosis LIPID PANEL, S Routine 10/16/2021 8:02 Chronic Systolic Result s for this AM CONFIGURATION MANAGEMENT MANAGER (Congestive) Heart procedure are in Failure (HCC) the results section. CBC WITHOUT Routine 10/16/2021 8:02 Chronic Systolic Results for this DIFFERENTIAL, B AM CONFIGURATION MANAGEMENT MANAGER (Congestive) Heart proced ure are in Failure (HCC) the results section. ASPARTATE Routine 10/16/2021 8:02 Chronic Systolic Results for this AMINOTRANSFERASE (AST), AM CONFIGURATION MANAGEMENT MANAGER (Congestive) Hear t procedure are in S/P Failure (HCC) the results section. BASIC METABOLIC PANEL, Routine 10/16/2021 8:02 Chronic Systoli c Results for this S/P AM CONFIGURATION MANAGEMENT MANAGER (Congestive) Heart procedure are in Failure (HCC) the results section. documented in this encounter Results Lipid Panel (10/16/2021 8:02 AM CONFIGURATION MANAGEMENT MANAGER) athologist Signature Cholesterol, 196 mg/dL 10/16/2021 DTL Total 9:09 AM CONFIGURATION MANAGEMENT MANAGER Comment: ----REFERENCE VALUE---- Desirable: < 200 Borderline high: 200 - 239 High: > or = 240 Triglycerides 59 mg/dL 10/16/2021 9:09 AM CONFIGURATION MANAGEMENT MANAGER DTL Comment: ----REFERENCE VALUE---- Normal: <150 Borderline high: 150-199 High: 200-499 Very high: > or =500 Cholesterol, HDL, S 75 >=40 mg/dL 10/16/2021 9:09 AM CONFIGURATION MANAGEMENT MANAGER DTL Calculated LDL 109 mg/dL 10/16/2021 9:09 AM CONFIGURATION MANAGEMENT MANAGER DT L Comment: ----REFERENCE VALUE---- Desirable: <100 mg/dL Above Desirable: 100-129 mg/dL Borderline High: 130-159 mg/dL High: 160-189 mg/dL Very High: >=190 mg/dL Cholesterol, Non-HDL, Calculated 121 mg/dL 021 9:09 AM CONFIGURATION MANAGEMENT MANAGER DTL Comment: ----REFERENCE VALUE---- Desirable: <130 Above Desirable: 130-159 Borderline high: 160-189 High: 190-219 Very high: > or =220 Specimen Anatomical Collection Method Collection Time Receive d Time (Source) Location / / Volume Laterality Blood (Blood, 10/16/2021 8:02 AM 10/16/20 8:49 Venous) CONFIGURATION MANAGEMENT MANAGER AM CONFIGURATION MANAGEMENT MANAGER Radha Eastman APRN.N.Jalen, M.S.N. LAB BLOOD ADD-ON Performing Organization Address City/[facility] Phon e Number [facility] - 200 [place], [place] [address] [facility] [place] [address] Laboratories[address] CBC without Differential (10/16/2021 8:02 AM CONFIGURATION MANAGEMENT MANAGER) athologist Signature Hemoglobin 14.1 13.2 - 10/16/2021 DTL 16.6 g/dL 8:47 AM CONFIGURATION MANAGEMENT MANAGER Hematocrit 42.2 38.3 - 10/16/2021 DTL 48.6 % 8:47 AM CONFIGURATION MANAGEMENT MANAGER Erythrocytes 4.58 4.35 - 10/16/2021 DTL 5.65 8:47 AM CONFIGURATION MANAGEMENT MANAGER x10(12)/L MCV 92.1 78.2 - 10/16/2021 DTL 97.9 fL 8:47 AM CONFIGURATION MANAGEMENT MANAGER RBC Distrib Width 13.0 11.8 - 10/16/2021 DTL 14.5 % 8:47 AM CONFIGURATION MANAGEMENT MANAGER Platelet Count 232 135 - 317 10/16/2021 DTL x10(9)/L 8:47 AM CONFIGURATION MANAGEMENT MANAGER Leukocytes 5.4 3.4 - 9.6 10/16/2021 DTL x10(9)/L 8:47 AM CONFIGURATION MANAGEMENT MANAGER Specimen Anatomical Collection Method Collection Time Receive d Time (Source) Location / / Volume Laterality Blood (Blood, 10/16/2021 8:02 AM 10/16/20 8:34 Venous) CONFIGURATION MANAGEMENT MANAGER AM CONFIGURATION MANAGEMENT MANAGER Radha Eastman APRN.N.P., M.S.N. LAB BLOOD ADD-ON Performing Organization Address City/[facility]/ZIP Code Phon e Number [facility] - 200 [place], [place] [address] [facility] [place] [place] [address] [address] AST (Aspartate Aminotransferase) (10/16/2021 8:02 AM CONFIGURATION MANAGEMENT MANAGER) Patholo gist Method Time Signature Aspartate 23 8 - 48 10/16/2021 DTL Aminotransferase U/L 9:09 AM CONFIGURATION MANAGEMENT MANAGER (AST), S Specimen Anatomical Collection Method Collection Time Receive d Time (Source) Location / / Volume Laterality Blood (Blood, 10/16/2021 8:02 AM 10/16/20 21 8:49 Venous) CONFIGURATION MANAGEMENT MANAGER AM CONFIGURATION MANAGEMENT MANAGER Radha Eastman APRN.N.P., M.S.N. LAB BLOOD ADD-ON Performing Organization Address City/State/ZIP Code Phon e Number [address] [address] [place] [address] Laboratories-[address] (ABNORMAL) Basic Metabolic Panel (10/16/2021 8:02 AM CONFIGURATION MANAGEMENT MANAGER) P athologist Signature Potassium, S 4.4 3.6 - 5.2 10/16/2021 DTL mmol/L 9:09 AM CONFIGURATION MANAGEMENT MANAGER Sodium, S 131 (L) 135 - 145 10/16/2021 DTL mmol/L 9:09 AM CONFIGURATION MANAGEMENT MANAGER Chloride, S 95 (L) 98 - 107 10/16/2021 DTL mmol/L 9:09 AM CONFIGURATION MANAGEMENT MANAGER Bicarbonate, S 25 22 - 29 10/16/2021 DTL mmol/L 9:09 AM CONFIGURATION MANAGEMENT MANAGER Anion Gap 11 7 - 15 10/16/2021 DTL 9:09 AM CONFIGURATION MANAGEMENT MANAGER BUN (Blood Urea 18 8 - 24 10/16/2021 DTL Nitrogen), S mg/dL 9:09 AM CONFIGURATION MANAGEMENT MANAGER Creatinine 0.83 0.74 - 10/16/2021 DTL 1.35 mg/dL 9:09 AM CONFIGURATION MANAGEMENT MANAGER eGFR-Non 84 >=60 10/16/2021 DTL Black/ mL/min/BSA 9:09 AM CONFIGURATION MANAGEMENT MANAGER Bulgarian Comment: ----ADDITIONAL INFORMATION---- Estimated GFR calculated using the 2009 CKD_EPI creatinine equation. eGFR-Black/ >90 >=60 mL/min/BSA 2020 9:09 AM CONFIGURATION MANAGEMENT MANAGER DTL Comment: ----ADDITIONAL INFORMATION---- Estimated GFR calculated using the 2009 CKD_EPI creatinine equation. Calcium, Total, S 8.9 8.8 - 10.2 mg/dL 10/16/2021 9:09 AM CONFIGURATION MANAGEMENT MANAGER DTL Glucose, S 102 70 - 140 mg/dL 10/16/2021 9:09 AM CONFIGURATION MANAGEMENT MANAGER D TL Specimen Anatomical Collection Method Collection Time Receive d Time (Source) Location / / Volume Laterality Blood (Blood, 10/16/2021 8:02 AM 10/16/20 8:49 Venous) CONFIGURATION MANAGEMENT MANAGER AM CONFIGURATION MANAGEMENT MANAGER Radha Eastman APRN.N.P., M.S.N. LAB BLOOD ADD-ON Performing Organization Address City/State/ZIP Code Phon e Number [facility] - [address] [place], [place] [address] [facility] [place] [place] [address] Laboratories-[facility] [address] documented in this encounter Visit Diagnoses Diagnosis Chronic Systolic (Congestive) Heart Fail ure (HCC) documented in this encounter Care Teams Pillar Worker Relationship Specialty Start Date End Date Elsewhere, Pcp PCP - General Family Medicine 10/25/18 documented as of this encounter
--- OUTSIDE RECORDS SUMMARY | 2022-08-30 08:37 | XMS_ITS | Encounter Summary ---
:1945 Author Organization [facility] Address [address] [place] [address] Care Team Providers Name Role Phone Elsewhere, Pcp Primary Care Provider Unavailable Encounter Details Date Type Department Care Team Description 12/16/2021 Clinical Communication Division of Loni Wu Endocrinology in [place], [place] [address] [place] [address] [place] [phone] Social History Tobacco Use Types Packs/Day Years [...] Natasha Mullins APRN, C.N.P., M.S.N. [address] [place] [phone] (Wo rk) 10/11/2022 Ancillary Procedure Cardiovascular Disease Natasha Cramer APRN, Radha.N.P., M.S.N. [address] [place] [phone] (Wo rk) 10/11/2022 Appointment Cardiovascular Disease Natasha Mullins APRN, Radha.N.Franklin., M.S.N. [address] [place] [phone] (Wo rk) 10/12/2022 Office Visit Cardiovascular Disease Natasha Mullins APRN, Radha.N.P., M.S.N. [address] [place] [phone] (Wo rk) documented as of this encounter Visit Diagnoses Not on filedocumented in this encounter Care Teams Herd Tester Relationship Specialty Start Date End Date Elsewhere, Pcp PCP - General Family Medicine 10/25/18 documented as of this encounter
--- OUTSIDE RECORDS SUMMARY | 2022-08-30 08:37 | XMS_ITS | Encounter Summary ---
:[address] [facility] Address [address] [place] [address] Care Team Providers Name Role Phone Elsewhere, Pcp Primary Care Provider Unavailable Encounter Details Date Type Department Care Team Description 05/27/2021 Anesthesia Event RST ROMB MAIN OR Antione Valdez, [address] [place] [address] [place] [phone] [place] [address] [place] [phone] (Wo rk) Anesthesia Record Procedure Summary Procedure [...] h andoff to the receiving staff during [facility] ch we 1. Identified the patient [...] 1418 by Left; dermbond; 08/04/21 Elizabeth Dahl, [facility] (Removed by background R.N. roslyn, [facility] completion utility); Automated B atc Job 1418 (Removed by background completion utility) (RETIRED) Incision 01/16/21; 1028; Groin; 01/16/21 1028 by 08/04 1418 by Left; 08/04/21 (Removed [facility]ins, [facility] completion nd, [facility] abhijit utility); 1418 (Removed Automate d Batch [...] 05/27/21; Placement Heath Killian, Franklin Peters T, BARK FITTER, Time: 1236 (created via BARK FITTER, CITRIX LEAD, DNAP CITRIX LEAD, D NAP procedure documentation); Mask Ventilation: Easy mask; Type: Standard ETT; Single Lumen Tube Size: 7.5 mm; Cuffed: Yes; Location: Oral; Grade View: Grade 1; Insertion Attempts: 1; Placement Verification: Bilateral breath sounds, Positive ETCO2, Symmetrical chest wall movement; Removal Date: 05/27/21; Removal Time: 1446 (RETIRED) Incision 05/27/21; 1357; Neck; 05/27/21 1357 by 1140 by Right; dermabond; [facility]ahl[facility] (Removed R.N. nd, Scheduling Automatically via Automated [facility] h Job Background Job); 1140 (Removed Automatically [...] Procedure Summary Date: 05/27/21 Room / Location: [address] 01 [facility] / [facility] in [place], [place] Anesthesia Start: 1225 Anesthesia Stop: 1458 Procedure: NECK DISSECTION, Revision neck, level IV. 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 Responsible Provider: Antione Valdez M.D., M.S. Anesthesia Type: general ASA [...] Procedure Notes - Heath Killian APRN, CRNA, BRAYAN - 05/27/2021 12:54 PM CDTAssociated Order(s): Airway Airway Date/Time: 05/27/2021 12:36 PM Performed by: Heath Killian APRN, CRNA, DNAP Authorized by: Antione Valdez M.D., M.S. 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 Location: [place] [address] / [facility] in [place], [place] Providers: Da Carr M.D. Pertinent components of the patient's history including current problem list, medical history, surgical history, family history, social history, medications and allergies were reviewed. Present illnessand pre-op diagnosis were confirmed. The planned surgery / procedure was verified with the patient /legal guardian. 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 The use of blood products not discussed Approval to Proceed: approved for anesthesia documented in this encounter Plan of Treatment Upcoming Encounters Date Type Specialty Care Team Description 10/11/2022 Appointment Laboratory Medicine Natasha Mullins APRN, C.N.P., M.S.N. [address] [place] [phone] (Wo rk) 10/11/2022 Ancillary Procedure Cardiovascular Disease Natasha Cramer APRN, C.N.P., M.S.N. [address] [place] [phone] (Wo rk) 10/11/2022 Appointment Cardiovascular Disease Natasha Mullins APRN, Radha.N.P., M.S.N. [address] [place] [phone] (Wo rk) 10/12/2022 Office Visit Cardiovascular Disease Natasha Mullins APRN, C.N.P., M.S.N. [address] [place] [phone] (Wo rk) documented as of this encounter Procedures Procedure Name Priority Date/Time Associated Comments Diagnosis LDA ANE ENDOTRACHEAL Routine 05/27/2021 12:36 Res ults for this AIRWAY PM CDT procedure are i n the results section. documented in this encounter Results LDA ANE ENDOTRACHEAL AIRWAY (05/27/2021 12:36 PM CDT) Narrative Heath Killian APRN, CRNA DNAP - 05/27/2021 12:36 PM CDT Heath Killian APRN, CRNA, DNAP ? 05/27/2021 12:55 PM Airway Date/Time: 05/27/2021 12:36 PM Performed by: Heath Killian APRN, CRNA DNAFranklin Authorized by: Antione Valdez M.D. , M.S. Patient location during procedure: OR / Procedure Area PROCEDURE DETAILS: Mask difficulty assessment: easy mask Final airway type: video laryngoscope Laryngeal Manipulation: no ?? Final best view of glottic structures - Cormack/Lehane Score: grade 1 ETT location: oral VL device: glide scope [place] scope blade size: 4 Adult tube size: [...] surgical documented in this encounter Care Teams Switchboard Receptionist Relationship Specialty Start Date End Date Elsewhere, Pcp PCP - General Family Medicine 10/25/18 documented as of this encounter
--- OUTSIDE RECORDS SUMMARY | 2022-08-30 08:37 | XMS_ITS | Encounter Summary ---
:1945 Author Organization [facility] Address [address] [place] [address] Care Team Providers Name Role Phone Elsewhere, Pcp Primary Care Provider Unavailable Reason for Referral Outpatient (Routine) - Closed Specialty Diagnoses / Procedures Referred By Contact Refer red To Contact Diagnoses Malignant Neoplasm Of Thyroid (HCC) Loni Wu M.D. [facility] Procedures US Head Neck Soft Tissue [address] [place] [phone] Referral ID Status Reason Start Date Expiration Date Visits Requ ested Visits Authorized [id number] Closed 05/28/2021 05/28/2022 1 1 ON MACHINE OPERATOR Reason for Visit Outpatient (Routine) - Closed Specialty Diagnoses / Procedures Referred By Contact Refer red To Contact Diagnoses Malignant Neoplasm Of Thyroid (HCC) Loni Wu M.D. [facility] Procedures US Head Neck Soft Tissue [address] [place] [phone] Referral ID Status Reason Start Date Expiration Date Visits Requ ested Visits Authorized [id number] Closed 05/28/2021 05/28/2022 1 1 Encounter Details Date Type Department Care Team Description 12/17/2021 Hospital Encounter Department of Loni Wu Neoplasm Of Radiology, Jethro Love M.D. Thyroid (HCC) [facility], in [address] [place] [address] [place] [phone] [place], [place] [phone] (Work) [phone] Social History Tobacco Use Types Packs/Day Years [...] Medicine Natasha Mullins APRN, Radha.N.P., M.S.N. [address] [place] [phone] (Joanie velázquez) 10/11/2022 Ancillary Procedure Cardiovascular Disease Natasha Cramer APRN, Radha.N.P., M.S.N. [address] [place] [phone] (Joanie velázquez) 10/11/2022 Appointment Cardiovascular Disease Natasha Mullins APRN, Radha.N.P., M.S.N. [address] [place] [phone] (Joanie velázquez) 10/12/2022 Office Visit Cardiovascular Disease Natasha Mullins APRN, Radha.N.P., M.S.N. [address] [place] [address] (Wo rk) documented as of this encounter Procedures Procedure Name Priority Date/Time Associated Comments Diagnosis US HEAD NECK SOFT RAD - Routine 12/17/2021 12:27 Malignant Resul ts for this TISSUE (most inpatients PM BUTTON MACHINE OPERATOR Neoplasm Of procedure a re in and all Thyroid (HCC) the results outpatients) section. documented in this encounter Results US Head Neck Soft Tissue (12/17/2021 12:27 PM BUTTON MACHINE OPERATOR) Anatomical Region Laterality Modality Head and Neck, Ultrasound RST LOS, Ultrasound ARZ LOS, N/A Ultrasound Ultrasound FLA LOS Specimen (Source) Anatomical Collection Method Collection Time Re ceived Time Location / / Volume Laterality 12/17/2021 12:27 PM BUTTON MACHINE OPERATOR Impressions 12/17/2021 12:36 PM BUTTON MACHINE OPERATOR 1. Interval lymph node dissection with removal of the biopsy-proven right level 4 metastasis. 2. Stable biopsy-proven recurrence in th e left mid bed. 3. Scattered bilateral cervical chain ly mph nodes are also unchanged. Narrative 12/17/2021 12:36 PM BUTTON MACHINE OPERATOR EXAM: US HEAD NECK SOFT TISSUE COMPARISON: [facility] ultrasound 03/[address] 04/22/2021 FINDINGS: Thyroidectomy. [...] EXAM: US HEAD NECK SOFT TISSUE COMPARISON: [facility] ultrasound 03/[address] 04/22/2021 FINDINGS: Thyroidectomy. [...] are also unchanged. Loni ALVARADO US PROCEDURES documented in this encounter Visit Diagnoses Diagnosis Malignant Neoplasm Of Thyroid (HCC) documented in this encounter Care Teams Open Cut Examiner Relationship Specialty Start Date End Date Elsewhere, Pcp PCP - General Family Medicine 10/25/18 documented as of this encounter
--- OUTSIDE RECORDS SUMMARY | 2022-08-30 08:37 | XMS_ITS | Encounter Summary ---
:1945 Author Organization [facility] Address [address] [place] [address] Care Team Providers Name Role Phone Elsewhere, Pcp Primary Care Provider Unavailable Encounter Details Date Type Department Care Team Description 10/15/2021 Clinical Communication Department of Chai Fagan, Cardiovascular Medicine VY Kaur, in [facility] milan C.NCarminePCarmine, M.S.N. [address] [facility] [address] [place] [phone] Social History Tobacco Use Types Packs/Day Years [...] More than 4 times per year 10/15/2019 voodoo services? Do you belong to any clubs [...] Natasha Mullins APRN, C.N.P., M.S.N. [address] [place] [phone] (Wo rk) 10/11/2022 Ancillary Procedure Cardiovascular Disease Natasha Cramer APRN, Radha.N.P., M.S.N. [address] [place] [address] [phone] (Wo rk) 10/11/2022 Appointment Cardiovascular Disease Natasha Mullins APRN, Radha.N.P., M.S.N. [address] [place] [phone] (Joanie rk) 10/12/2022 Office Visit Cardiovascular Disease Natasha Mullins APRN, Radha.N.P., M.S.N. [address] [place] [phone] (Joanie rk) documented as of this encounter Visit Diagnoses Not on filedocumented in this encounter Care Teams Warper Tender Relationship Specialty Start Date End Date Elsewhere, Pcp PCP - General Family Medicine 10/25/18 documented as of this encounter
--- OUTSIDE RECORDS SUMMARY | 2022-08-30 08:37 | XMS_ITS | Encounter Summary ---
:1945 Author Organization [facility] Address [address] [place] [address] Care Team Providers Name Role Phone Elsewhere, Pcp Primary Care Provider Unavailable Encounter Details Date Type Department Care Team Description 05/27/2021 Surgery RST BOAZ WATKINS OR Da Carr NECK DISSECTION, [address] [facility] Lupillo Carballo Revision [place] [address] Social History Tobacco Use [...] or relatives? How often do you attend latter-day or More than 4 times per year 10/15/2019 restorationism services? Do you belong to any clubs or Yes 10/15/2019 organizations such as latter-day groups, unions, fraternal or athletic groups, or [...] PM CDT DISCHARGE SUMMARY BRIEF OVERVIEW Hospital: [facility] Discharge Provider: Da Carr M.D. Primary [...] through Care Everywhere. About Your IV Sedation (Chinese)documented in this encounter Medications at Time of [...] cancer. History of chronic lymphocytic leukemia. A or first assist registered nurse actively participated and was necessary for one [...] Da Carr M.D. CT CT Job ID: [id number] documented in this encounter Miscellaneous Notes Hospital [...] Medicine Natasha Mullins APRN, C.N.PCarmine, M.S.N. [address] [place] [phone] (Wo rk) 10/11/2022 Ancillary Procedure Cardiovascular Disease Natasha Cramer APRN, Radha.N.P., M.S.N. [address] [place] [phone] (Joanie rk) 10/11/2022 Appointment Cardiovascular Disease Natasha Mullins APRN, Radha.N.P., M.S.N. [address] [place] [phone] (Joanie rk) 10/12/2022 Office Visit Cardiovascular Disease Natasha Mullins APRN, C.N.P., M.S.N. [address] [place] [phone] (Joanie rk) documented as of this [...] CDT Of Thyroid Papillary (HCC) Case Notes LYRIC WRITER 1036 documented in this encounter Results Surgical Pathology, Frozen Lab (05/27/2021 1:34 PM CDT) Component Value Ref Test Analysis Performed At [facility] Method Time Signature 05/28/2021 [facility] 5:05 PM CDT Participated in Deanne Jang D.O.-Pathology Resident 05/28/[address] [facility] the Interpretation Crista Lyon M.D., Ph.D.-Pathology Resident 5:05 PM CDT Report Milla Byrd M.D. [id number] [facility] electronically 5:05 PM CDT signed by I verify that I have examined all relevant slides/materials for the specimen(s) and rendered or confirmed the diagnosis. Frozen A. ??Lymph nodes, right neck area IV, dissection: ??Mu ltiple 05/28/2021 [facility] Intraoperative (2 of 18) lymph nodes are involved by metastatic pap illary 5:05 PM CDT Report carcinoma. Signed by Milla Byrd M.D. [id number] 05/28/2021 11:47 AM Gross Description A. ??Received fresh labeled right select neck di ssection 05/28/2021 [facility] area 4 is a 7.5 x 3.5 [...] neck dissection area 4 lymph nodes 05/28/2021 [facility] A1 Right select neck dissection area 4 [...] lymph nodes 2(A8)-frozen Interpretation FINAL DIAGNOSIS 05/28/[address] [facility] 5:05 PM CDT A. ??Lymph [...] Organization Address City/State/ZIP Code Phon e Number [facility] - [address] [place], [place] [address] [facility] [place] [place] 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
--- OUTSIDE RECORDS SUMMARY | 2022-08-30 08:37 | XMS_ITS | Encounter Summary ---
:1945 Author Organization [facility] Address [address] [place] [address] Care Team Providers Name Role Phone Elsewhere, Pcp Primary Care Provider Unavailable Reason for Visit Reason Comments Med Refill Encounter Details Date Type Department Care Team Description 08/16/2021 Refill Division of Endocrinology in Loni Fung M.D. Med Refill [place], [place] [address] [facility] [address] [place] [phone] [phone] (Wo rk) Social History Tobacco Use Types [...] Natasha Mullins APRN, C.N.P., M.S.N. [address] [place] [phone] (Joanie rk) 10/11/2022 Ancillary Procedure Cardiovascular Disease Natasha Cramer APRN, Radha.N.P., M.S.N. [address] [place] [phone] (Joanie rk) 10/11/2022 Appointment Cardiovascular Disease Natasha Mullins APRN, Radha.N.P., M.S.N. [address] [place] [phone] (Joanie rk) 10/12/2022 Office Visit Cardiovascular Disease Natasha Mullins APRN, Radha.N.P., M.S.N. [address] [place] [phone] (Joanie rk) documented as of this encounter Visit Diagnoses Not on filedocumented in this encounter Care Teams Television Announcer Relationship Specialty Start Date End Date Elsewhere, Pcp PCP - General Family Medicine 10/25/18 documented as of this encounter
--- OUTSIDE RECORDS SUMMARY | 2022-08-30 08:37 | XMS_ITS | Encounter Summary ---
:1945 Author Organization [facility] Address [address] [place] [address] Care Team Providers Name Role Phone Elsewhere, Pcp Primary Care Provider Unavailable Reason for Visit Reason Comments Pt called again Encounter Details Date Type Department Care Team Description 05/29/2021 Clinical Department of [facility] Pt called maria g thorpe Communication Otorhinolaryngology Da marquez [place], [place] Lupillo [address] [place] [phone] Social History Tobacco Use Types Packs/Day [...] Natasha Mullins APRN, C.N.P., M.S.N. [address] [place] [phone] (Joanie rk) 10/11/2022 Ancillary Procedure Cardiovascular Disease Natasha Cramer APRN, Radha.N.P., M.S.N. [address] [place] [phone] (Joanie rk) 10/11/2022 Appointment Cardiovascular Disease Natasha Mullins APRN, C.N.P., M.S.N. [address] [place] [phone] (Joanie rk) 10/12/2022 Office Visit Cardiovascular Disease Natasha Mullins APRN, C.N.P., M.S.N. [address] [place] [phone] (Joanie rk) documented as of this encounter Visit Diagnoses Not on filedocumented in this encounter Care Teams Manager Medical Affairs Relationship Specialty Start Date End Date Elsewhere, Pcp PCP - General Family Medicine 10/25/18 documented as of this encounter
--- OUTSIDE RECORDS SUMMARY | 2022-08-30 08:37 | XMS_ITS | Encounter Summary ---
:1945 Author Organization [facility] Address [address] [place] [address] Care Team Providers Name Role Phone Elsewhere, Pcp Primary Care Provider Unavailable Encounter Details Date Type Department Care Team Description 2021 Orders Only RST PCP [facility] ELISAT Gabbi Amaro M.D. [address] [place], [place] [phone] (Wo rk) Social History [...] Natasha Mullins APRN, C.N.P., M.S.N. [address] [place] [address] (Wo rk) 10/11/2022 Ancillary Procedure Cardiovascular Disease Natasha Cramer APRN, Radha.NRenetta, M.S.N. [address] [place] [phone] (Wo rk) 10/11/2022 Appointment Cardiovascular Disease Natasha Mullins APRN, Radha.NRenetta, M.S.N. [address] [place] [phone] (Joanie rk) 10/12/2022 Office Visit Cardiovascular Disease Natasha Mullins APRN, Radha.N.Franklin., M.S.N. [address] [place] [phone] (Joanie rk) documented as of this encounter Visit Diagnoses Not on filedocumented in this encounter Care Teams Hide House Supervisor Relationship Specialty Start Date End Date Elsewhere, Pcp PCP - General Family Medicine 10/25/18 documented as of this encounter
--- OUTSIDE RECORDS SUMMARY | 2022-08-30 08:37 | XMS_ITS | Encounter Summary ---
:1945 Author Organization [facility] Address [address] [place] [address] Care Team Providers Name Role Phone Elsewhere, Pcp Primary Care Provider Unavailable Reason for Referral Outpatient (Routine) - Closed Specialty Diagnoses / Procedures Referred By Contact Refer red To Contact Otorhinolaryngology Da Carr [place] M.D. [address] [place] [phone] Referral ID Status Reason Start Date Expiration Date Visits Requ ested Visits Authorized [id number] Closed 06/09/2021 06/09/2022 1 1 Scheduling Instructions Please schedule in 3-4 months Please coordinate with END Dr. Wu Reason for Visit Outpatient (Routine) - Closed Specialty Diagnoses / Procedures Referred By Contact Breanne brush To Contact Otorhinolaryngology GerryAlisson george M.D. [address] [phone] Referral ID Status Reason Start Date Expiration Date Visits Requ ested Visits Authorized [id number] Closed 06/03/2021 06/03/2022 1 1 Encounter Details Date Type Department Care Team Description 06/09/2021 Office Visit Department of Lilly, Follow Up Exam ination Otorhinolaryngology in Da Carballo M.D. Posto perative Visit [place], [place] (Primary Dx) [address] [place] [phone] Social History Tobacco Use Types Packs/Day [...] in his incision was made and a Ruidoso drain was placed. Patient states that since his previous visit he has done very well in the swelling has improved greatly. No concerning symptoms for infection with erythema, warmth, purulent drainage from the Ruidoso. He has had some very mild amount [...] the medial incision open from previous visit. Bruce drain sutured in place which was removed [...] after 1 week today for removal of Ruidoso drain that was placed for a postoperative seroma. His neck swelling has improved greatly since his previous visit. Small amount of some mild residual swelling. No signs of infection today. Unable to express any residual drainage from the opening in the incision. Bruce drain removed today. We discussed ongoing things [...] Da Carr M.D. CT CT Job ID: [id number] documented in this encounter Plan of Treatment Upcoming Encounters Date Type Specialty Care Team Description 10/11/2022 Appointment Laboratory Medicine Natasha Mullins APRN, Radha.N.P., M.S.N. [address] [place] [phone] (Joanie rk) 10/11/2022 Ancillary Procedure Cardiovascular Disease Natasha Cramer APRN, C.N.P., M.S.N. [address] [place] [phone] (Joanie rk) 10/11/2022 Appointment Cardiovascular Disease Natasha Mullins APRN, C.N.P., M.S.N. [address] [place] [phone] (Joanie rk) 10/12/2022 Office Visit Cardiovascular Disease Natasha Mullins APRN, C.N.P., M.S.N. [address] [place] [phone] (Joanie rk) Scheduled Referrals Name Type Priority Associated Order Schedule Diagnoses Otorhinolaryngology office Outpatient Routine E xpected: visit (clinic) Referral 09/09/2021 (Approximate), Expires: 06/09/2024 documented as of this encounter Visit Diagnoses Diagnosis Follow Up Examination Postoperative Visi t - Primary documented in this encounter Care Teams Pie Icer Machine Relationship Specialty Start Date End Date Elsewhere, Pcp PCP - General Family Medicine 10/25/18 documented as of this encounter
--- OUTSIDE RECORDS SUMMARY | 2022-08-30 08:38 | XMS_ITS | Encounter Summary ---
:1945 Author Organization [facility] Address [address] [place] [address] Care Team Providers Name Role Phone Elsewhere, Pcp Primary Care Provider Unavailable Reason for Visit Reason Comments Neck dissection at [facility] 05/[address] Carr when to stop Plavix? Encounter Details Date Type Department Care Team Description 05/21/2021 Clinical Department of [facility] Neck dissectio n at [facility] Mae in [facility], C.NCarminePCarmine, Lilly; w [place], [place] M.S.N. to stop Plavix? [address] [place] [address] [address] [place] [phone] Social History Tobacco Use Types Packs/Day Years [...] or relatives? How often do you attend orthodoxy or More than 4 times per year 10/15/2019 rastafarian services? Do you belong to any clubs or Yes 10/15/2019 organizations such as orthodoxy groups, unions, fraternal or athletic groups, or [...] / REASON FOR CALL Neck dissection at [facility] 05/[address] Carr and when to stop Plavix? Name of caller/relationship to the patient: Mr. Khanna Patient expects communication via portal: No Phone number: [phone] Please call with recommendation to stop Plavix prior to neck dissection on 05/27/21. documented in this encounter Plan of Treatment Upcoming Encounters Date Type Specialty Care Team Description 10/11/2022 Appointment Laboratory Medicine Natasha Mullins APRN, Radha.N.P., M.S.N. [address] [place] [phone] (Joanie velázquez) 10/11/2022 Ancillary Procedure Cardiovascular Disease Natasha Cramer APRN, Radha.N.P., M.S.N. [address] [place] [phone] (Joanie velázquez) 10/11/2022 Appointment Cardiovascular Disease Natasha Mullins APRN, C.N.P., M.S.N. [address] [place] [phone] (Joanie velázquez) 10/12/2022 Office Visit Cardiovascular Disease Natasha Mullins APRN, Radha.N.P., M.S.N. [address] [place] [address] (Wo rk) documented as of this encounter Visit Diagnoses Not on filedocumented in this encounter Care Teams Bottle Assembler Relationship Specialty Start Date End Date Elsewhere, Pcp PCP - General Family Medicine 10/25/18 documented as of this encounter
--- OUTSIDE RECORDS SUMMARY | 2022-08-30 08:38 | XMS_ITS | Encounter Summary ---
:1945 Author Organization [facility] Address [address] [place] [address] Care Team Providers Name Role Phone Elsewhere, Pcp Primary Care Provider Unavailable Reason for Visit Reason Comments Med Refill Encounter Details Date Type Department Care Team Description 03/16/2021 Refill Division of Hematology in Clifford Mcintyre APRN, Med Refill [place], [place] C.N.P., D.N.P. [address] [facility] [address] [place] [address] [place] [address] [phone] (Wo rk) Social History Tobacco Use Types [...] Mullins APRN, C.N.P., M.S.N. [address] [place] [phone] (Wo rk) 10/11/2022 Ancillary Procedure Cardiovascular Disease Natasha Cramer APRN, C.N.P., M.S.N. [address] [place] [address] [phone] (Wo rk) 10/11/2022 Appointment Cardiovascular Disease Natasha Mullins APRN, C.N.P., M.S.N. [address] [place] [phone] (Joanie rk) 10/12/2022 Office Visit Cardiovascular Disease Natasha Mullins APRN, C.N.P., M.S.N. [address] [place] [phone] (Joanie rk) documented as of this encounter Visit Diagnoses Not on filedocumented in this encounter Care Teams Proof Coin Collector Relationship Specialty Start Date End Date Elsewhere, Pcp PCP - General Family Medicine 10/25/18 documented as of this encounter
--- OUTSIDE RECORDS SUMMARY | 2022-08-30 08:38 | XMS_ITS | Encounter Summary ---
:1945 Author Organization [facility] Address [address] [place] [address] Care Team Providers Name Role Phone Elsewhere, Pcp Primary Care Provider Unavailable Reason for Referral MRI/CAT/PET Scan (Routine) - Closed Specialty Diagnoses / Procedures Referred By Contact Refer red To Contact Radiology Diagnoses Malignant Neoplasm Of Thyroid (HCC) Da Carr M.D. [facility] Procedures CT Neck Soft Tissue with IV Contrast CT Neck Soft Tissue without and with IV Contrast 200 [place] [address] Referral ID Status Reason Start Date Expiration Date Visits Requ ested Visits Authorized [id number] Closed 04/21/2021 04/21/2022 1 1 Reason for Visit MRI/CAT/PET Scan (Routine) - Closed Specialty Diagnoses / Procedures Referred By Contact Refer red To Contact Radiology Diagnoses Malignant Neoplasm Of Thyroid (HCC) Da Carr M.D. [facility] Procedures CT Neck Soft Tissue with IV Contrast CT Neck Soft Tissue without and with IV Contrast 200 [place] [address] Referral ID Status Reason Start Date Expiration Date Visits Requ ested Visits Authorized [id number] Closed 04/21/2021 04/21/2022 1 1 Encounter Details Date Type Department Care Team Description 04/22/2021 Hospital Encounter Department of Viviana Carr Neoplasm Of Radiology, Jethro Carballo M.D. Thyroid (HC C) Building, in [place], [place] [address] [place] [address] Social History Tobacco Use Types Packs/Day Years [...] of this encounter Nursing Notes Naveen Mckinnon M.SDeloris., R.N. - 04/22/2021 5:50 PM CDT Pt premedicated for CT allergy, pt doesn't need to be monitored he stated he was okay to leave [place] as long as he felt okay documented in this encounter Plan of Treatment Upcoming Encounters Date Type Specialty Care Team Description 10/11/2022 Appointment Laboratory Medicine Natasha Mullins APRN, C.N.P., M.S.N. [address] [place] [phone] (Joanie velázquez) 10/11/2022 Ancillary Procedure Cardiovascular Disease Natasha Cramer APRN, C.N.P., M.S.N. [address] [place] [phone] (Joanie velázquez) 10/11/2022 Appointment Cardiovascular Disease Natasha Mullins APRN, C.N.P., M.S.N. [address] [place] [address] [phone] (Joanie velázquez) 10/12/2022 Office Visit Cardiovascular Disease Natasha Mullins APRN, C.N.P., M.S.N. [address] [place] [phone] (Joanie velázquez) documented as of this encounter [...] Orders documented in this encounter Care Teams Bowling Alley Attendant Relationship Specialty Start Date End Date Elsewhere, Pcp PCP - General Family Medicine 10/25/18 documented as of this encounter
--- OUTSIDE RECORDS SUMMARY | 2022-08-30 08:38 | XMS_ITS | Encounter Summary ---
:1945 Author Organization [facility] Address [address] [place] [address] Care Team Providers Name Role Phone Elsewhere, Pcp Primary Care Provider Unavailable Reason for Visit Reason Comments May 4 or 5? Encounter Details Date Type Department Care Team Description 03/13/2021 Clinical Communication Division of Dionicio Muniz , March 4 or 5? Hematology in Dante Garcia M.D. [place], [place] [address] [facility] [address] [place] [address] [phone] Social History Tobacco Use Types Packs/Day Years [...] Miscellaneous Notes Telephone Encounter - Katherin Porter - 03/13/2021 3:27 PM CDT PET/labs and [...] NEL PASS: [place] [phone]. documented in this encounter Plan of Treatment Upcoming Encounters Date Type Specialty Care Team Description 10/11/2022 Appointment Laboratory Medicine Natasha Mullins APRN, C.N.P., M.S.N. 200 [place] [address] (Wo rk) 10/11/2022 Ancillary Procedure Cardiovascular Disease Natasha Cramer APRN, C.N.P., M.S.N. [address] [place] [phone] (Joanie rk) 10/11/2022 Appointment Cardiovascular Disease Natasha Mullins APRN, C.N.P., M.S.N. [address] [place] [phone] (Joanie velázquez) 10/12/2022 Office Visit Cardiovascular Disease Natasha Mullins APRN, C.NRenetta, M.S.N. [address] [place] [phone] (Joanie velázquez) documented as of this encounter Visit Diagnoses Not on filedocumented in this encounter Care Teams Door Liner Relationship Specialty Start Date End Date Elsewhere, Pcp PCP - General Family Medicine 10/25/18 documented as of this encounter
--- OUTSIDE RECORDS SUMMARY | 2022-08-30 08:38 | XMS_ITS | Encounter Summary ---
:1945 Author Organization [facility] Address [address] [place] [address] Care Team Providers Name Role Phone Elsewhere, Pcp Primary Care Provider Unavailable Encounter Details Date Type Department Care Team Description 05/27/2021 Hospital Encounter RST [facility], Malignant Neoplasm Of [address] [facility] Da Carballo M.D. Thyroid Papillary [place], [place] (HCC) (Primary Dx) [phone] Social History [...] PM CDT DISCHARGE SUMMARY BRIEF OVERVIEW [facility]: Da Carr M.D. Primary Care [...] through Care Everywhere. About Your IV Sedation (Kosovan)documented in this encounter Medications at Time of [...] cancer. History of chronic lymphocytic leukemia. A sugar laboratory assistant actively participated and was necessary for [...] Da Carr M.D. CT CT Job ID: [id number] documented in this encounter Miscellaneous Notes Hospital [...] Medicine Natasha Mullins APRN, C.N.PCarmine, M.S.N. [address] [place] [phone] (Wo rk) 10/11/2022 Ancillary Procedure Cardiovascular Disease Natasha Cramer APRN, Radha.N.P., M.S.N. [address] [place] [phone] (Wo rk) 10/11/2022 Appointment Cardiovascular Disease Natasha Mullins APRN, Radha.N.P., M.S.N. [address] [place] [phone] (Joanie rk) 10/12/2022 Office Visit Cardiovascular Disease Natasha Mullins APRN, C.N.P., M.S.N. [address] [place] [phone] (Wo rk) documented as of this [...] CDT Of Thyroid Papillary (HCC) Case Notes FISH CLEANER MACHINE TENDER 1036 documented in this encounter Results Surgical Pathology, Frozen Lab (05/27/2021 1:34 PM CDT) Component Value Ref Test Analysis Performed At [facility] Method Time Signature 05/28/2021 [facility] 5:05 PM CDT Participated in Deanne Jang D.O.-Pathology Resident 05/28/2021 [facility] the Interpretation Crista Cook, M.D., Ph.D.-Pathology Resident 5:05 PM CDT Report Milla Byrd M.D. [id number] [facility] electronically 5:05 PM CDT signed by I verify that I have examined all relevant slides/materials for the specimen(s) and rendered or confirmed the diagnosis. Frozen A. ??Lymph nodes, right neck area IV, dissection: ??Mu ltiple 05/28/2021 [facility] Intraoperative (2 of 18) lymph nodes are involved by metastatic pap illary 5:05 PM CDT Report carcinoma. Signed by Milla Byrd M.D. [id number] 05/28/2021 11:47 AM Gross Description A. ??Received fresh labeled right select neck di ssection 05/28/2021 [facility] area 4 is a 7.5 [...] neck dissection area 4 lymph nodes 05/28/2021 [facility] A1 Right select neck dissection [...] lymph nodes 2(A8)-frozen Interpretation FINAL DIAGNOSIS 05/28/2021 [facility] 5:05 PM CDT A. ??Lymph [...] Code Phon e Number [facility] - [address] [place], [place] [address] [place] [address] [facility] [address] documented [...] (COMPLETED) 1250 (Given - Provider: Heath Killian, SALES HOST, HOUSEKEEPER HOME, DNAP) 1,250 mg, intravenous, at 175 mL/hr, [...] Bag - Provider: Heath Killian APRN, KARISSA, DNAP)1328 (Rate/Dose Change - Provider: Heath Killian APRN, KARISSA, DNAP)1422 (Rate/Dose Change - Provider: Rui Peters APRN, CRNA, DNAP) 0-1 mcg/kg/min ? 77.1 kg Dosing [...] 1457 documented in this encounter Care Teams Regional Vice President Surgical Sales Relationship Specialty Start Date End Date Elsewhere, Pcp PCP - General Family Medicine 10/25/18 documented as of this encounter
--- OUTSIDE RECORDS SUMMARY | 2022-08-30 08:38 | XMS_ITS | Encounter Summary ---
:1945 Author Organization [facility] Address [address] [place] [address] Care Team Providers Name Role Phone Elsewhere, Pcp Primary Care Provider Unavailable Encounter Details Date Type Department Care Team Description 04/29/2021 Clinical Communication Department of Jazmyn Zamora Otorhinolaryngology in [place], [place] [phone] [address] [facility] ([place]) [place] [address] Social History Tobacco Use Types Packs/Day [...] Natasha Mullins APRN, C.N.P., M.S.N. [address] [place] [phone] (Wo rk) 10/11/2022 Ancillary Procedure Cardiovascular Disease Natasha Cramer APRN, C.N.P., M.S.N. [address] [place] [phone] (Wo rk) 10/11/2022 Appointment Cardiovascular Disease Natasha Mullins APRN, C.N.P., M.S.N. [address] [place] [phone] (Wo rk) 10/12/2022 Office Visit Cardiovascular Disease Natasha Mullins APRN, Radha.N.P., M.S.N. [address] [place] [phone] (Joanie rk) documented as of this encounter Visit Diagnoses Not on filedocumented in this encounter Care Teams Health Data Administrator Relationship Specialty Start Date End Date Elsewhere, Pcp PCP - General Family Medicine 10/25/18 documented as of this encounter
--- OUTSIDE RECORDS SUMMARY | 2022-08-30 08:38 | XMS_ITS | Encounter Summary ---
:1945 Author Organization [facility] Address [address] [place] [address] Care Team Providers Name Role Phone Elsewhere, Pcp Primary Care Provider Unavailable Encounter Details Date Type Department Care Team Description 04/30/2021 Clinical Communication Department of Lilly Otorhinolaryngology in Da Carballo M.D. [place], [place] [address] [place] [address] Social History Tobacco Use Types Packs/Day [...] Medicine Natasha Mullins APRN, Radha.N.P., M.S.N. [address] [place] [address] [phone] (Wo rk) 10/11/2022 Ancillary Procedure Cardiovascular Disease Natasha Cramer APRN, Radha.N.P., M.S.N. [address] [place] [address] [phone] (Wo rk) 10/11/2022 Appointment Cardiovascular Disease Natasha Mullins APRN, Radha.N.P., M.S.N. [address] [place] [address] [phone] (Wo rk) 10/12/2022 Office Visit Cardiovascular Disease Natasha Mullins APRN, C.N.P., M.S.N. [address] [place] [address] [phone] (Wo rk) documented as of this encounter Visit Diagnoses Not on filedocumented in this encounter Care Teams Enologist Relationship Specialty Start Date End Date Elsewhere, Pcp PCP - General Family Medicine 10/25/18 documented as of this encounter
--- OUTSIDE RECORDS SUMMARY | 2022-08-30 08:38 | XMS_ITS | Encounter Summary ---
:1945 Author Organization [facility] Address [address] [place] [address] Care Team Providers Name Role Phone Elsewhere, Pcp Primary Care Provider Unavailable Encounter Details Date Type Department Care Team Description 04/29/2021 Orders Only Department of Yo Joyner Neop las Otorhinolaryngology in [place] Bustamante Of Thyroid Papillary [place], [place] [address] [facility] (HCC) (Primary Dx) [address] [place] [phone] Social History Tobacco Use Types Packs/Day Years [...] More than 4 times per year 10/15/2019 oriental orthodox services? Do you belong to any [...] Team Description 10/11/2022 Appointment Laboratory Medicine Natasha Mlulins APRN, C.N.P., M.S.N. [address] [place] [address] [phone] (Wo rk) 10/11/2022 Ancillary Procedure Cardiovascular Disease Natasha Cramer APRN, C.N.Jalen, M.S.N. [address] [place] [address] [phone] (Wo rk) 10/11/2022 Appointment Cardiovascular Disease Natasha Mullins APRN, Radha.N.Jalen, M.S.N. [address] [place] [phone] (Wo rk) 10/12/2022 Office Visit Cardiovascular Disease Natasha Mullins APRN, C.N.Jalen, M.S.N. [address] [place] [phone] (Wo rk) documented as of this encounter Results SARS Coronavirus 2, Molecular Detection, PCR, Varies Asymptomatic (05/26/2021 8:50 AM CDT) [facility] Method Time Signature COVID-19, Swab, 05/26/2021 DTL [...] ----ADDITIONAL INFORMATION---- This RT-PCR test using the [employer] SARS-Co V-2 Assay ( [employer].) performed on the [employer] Two Module System has received Emergency Use Authorization (EUA) by the U.S. Food and Drug Administration, and is modified from the wood flour miller's instructions with a bridging study. Performance characteristics were verifie d by [facility] in a manner consistent with CLIA requirements. Visit the CDC website: https://www.cdc.g ov/coronavirus/ for the most recent guidelines on Mcclain virus testing. Fact Sheet for Healthcare Providers: https://www.fda.gov/media/370340/downloa d Fact Sheet for Patients: https://www.fda.gov/media/938304/downloa d Specimen Anatomical Collection Method Collection Time Receive d Time (Source) Location / / Volume Laterality Varies 05/26/2021 8:50 AM 9:09 (Nasopharynx) CDT AM CDT Adams Joyner M.D. 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
--- OUTSIDE RECORDS SUMMARY | 2022-08-30 08:38 | XMS_ITS | Encounter Summary ---
:1945 Author Organization [facility] Address [address] [place] [address] Care Team Providers Name Role Phone Elsewhere, Pcp Primary Care Provider Unavailable Reason for Referral Outpatient (Routine) - Closed Specialty Diagnoses / Procedures Referred By Contact Refer red To Contact Diagnoses Malignant Neoplasm Of Thyroid (HCC) Loni Wu M.D. [facility] Procedures US Superficial Tissue Fine Needle Aspiration [address] [place] [address] Referral ID Status Reason Start Date Expiration Date Visits Requ ested Visits Authorized [id number] Closed 03/11/2021 03/11/2022 1 1 Reason for Visit Outpatient (Routine) - Closed Specialty Diagnoses / Procedures Referred By Contact Refer red To Contact Diagnoses Malignant Neoplasm Of Thyroid (HCC) Loni Wu M.D. [facility] Procedures US Superficial Tissue Fine Needle Aspiration [address] [place] [address] Referral ID Status Reason Start Date Expiration Date Visits Requ ested Visits Authorized [id number] Closed 03/11/2021 03/11/2022 1 1 Encounter Details Date Type Department Care Team Description 03/12/2021 Hospital Encounter Department of Loni Wu M.D. [address] [place] [phone] Malignant Neoplasm Radiology, Cornell Albrecht M.D. 200 [place] [phone] Of Thyroid (HCC) Building, in [place], [place] 200 [place] [phone] Social History Tobacco Use Types Packs/Day Years [...] or relatives? How often do you attend alevism or More than 4 times per year 10/15/2019 baptist services? Do you belong to any clubs or Yes 10/15/2019 organizations such as alevism groups, unions, fraternal or athletic groups, or [...] for pain. ALBUTEROL SULFATE INHL Inhale. 0 07 / bisacodyL (DULCOLAX) 5 Take by mouth. 0 [...] Medicine Natasha Mullins APRN, C.N.P., M.S.N. [address] [place] [phone] (Wo rk) 10/11/2022 Ancillary Procedure Cardiovascular Disease Natasha Cramer APRN, C.N.P., M.S.N. [address] [place] [phone] (Wo rk) 10/11/2022 Appointment Cardiovascular Disease Natasha Mullins APRN, C.N.P., M.S.N. [address] [place] [phone] (Wo rk) 10/12/2022 Office Visit Cardiovascular Disease Natasha Mullins APRN, C.N.P., M.S.N. [address] [place] [phone] (Wo rk) documented as of this [...] Component Value Ref Test Analysis Performed At [facility] Range Method Time Signature 03/12/2021 DTL (A) 4:17 PM CDT Source A. Thyroid 03/12/2021 DTL Bed, Left 4:17 PM CDT nodule, fine needle aspiration (A) Report Kosta Bennett M.D. [id number] 03/12/2021 D TL electronically 4:17 PM CDT [...] Organization Address City/State/ZIP Code Phon e Number [facility] - 200 [place], [place] [address] [facility] [place] [address] (ABNORMAL) Reflex, Thyroglobin (Tg) Cytology Fine-Needle Aspiration (03/12/2021 2:05 PM CDT) Component Value Ref Test Analysis Performed At [facility] gist Range Method Time Signature 03/12/2021 DTL (A) 4:26 PM CDT Source A. Lymph 03/12/2021 DTL node, Right 4:26 PM CDT neck, fine needle aspiration (A) Report Kosta Bennett M.D. [id number] 03/12/2021 D TL electronically 4:26 PM CDT [...] Organization Address City/State/ZIP Code Phon e Number [facility] - [address] documented in this encounter Visit Diagnoses [...] 1433 documented in this encounter Care Teams Barking Machine Feeder Relationship Specialty Start Date End Date Elsewhere, Pcp PCP - General Family Medicine 10/25/18 documented as of this encounter
--- OUTSIDE RECORDS SUMMARY | 2022-08-30 08:38 | XMS_ITS | Encounter Summary ---
:1945 Author Organization [facility] Address [address] [place] [address] Care Team Providers Name Role Phone Elsewhere, Pcp Primary Care Provider Unavailable Reason for Referral Outpatient (Routine) - Closed Specialty Diagnoses / Procedures Referred By Contact Refer red To Contact Diagnoses Lymphoma Nodular Multiple Site (HCC) Edison Avlarez M.B.B.S. [facility] Procedures PET CT Skull to Thigh FDG Referral ID Status Reason Start Date Expiration Date Visits Requ ested Visits Authorized [id number] Closed 04/28/2020 04/28/2021 6 6 Reason for Visit Outpatient (Routine) - Closed Specialty Diagnoses / Procedures Referred By Contact Refer red To Contact Diagnoses Lymphoma Nodular Multiple Site (HCC) Edison Alvarez M.B.B.S. [facility] Procedures PET CT Skull to Thigh FDG Referral ID Status Reason Start Date Expiration Date Visits Requ ested Visits Authorized [id number] Closed 04/28/2020 04/28/2021 6 6 Encounter Details Date Type Department Care Team Description 03/17/2021 Hospital Encounter Department of Edison Alvarez Lymphoma Nodular Radiology, Darvin LoweBCarmineSCarmine Multiple Site (HCC) [facility], in [place], [place] [address] [place] [address] Social History Tobacco Use Types Packs/Day Years [...] tablet (40 mg 90 tablet 3 10/15/2020 1201/2021 (PRINIVIL,ZESTRIL) 40 mg total) by mouth tablet [...] Natasha Mullins APRN, C.N.P., M.S.N. [address] [place] [address] (Wo rk) 10/11/2022 Ancillary Procedure Cardiovascular Disease Natasha Cramer APRN, Radha.N.P., M.S.N. [address] [place] [phone] (Wo rk) 10/11/2022 Appointment Cardiovascular Disease Natasha Mullins APRN, C.N.PCarmine, M.S.N. [address] [place] [phone] (Wo rk) 10/12/2022 Office Visit Cardiovascular Disease Natasha Mullins APRN, Radha.N.[place]., M.S.N. [address] [place] [address] [phone] (Joanie rk) documented as of this encounter [...] RADIOPHARMACEUTICAL/MEDS: Route: intravenous fludeoxyglucose F 18 injection [facility] (FDG F-18),9.95 millicurie TECHNIQUE: ??F-18 FDG PET/CT [...] RADIOPHARMACEUTICAL/MEDS: Route: intravenous fludeoxyglucose F 18 injection [facility] (FDG F-18),9.95 millicurie TECHNIQUE: F-18 FDG PET/CT [...] focal prostate cancer would appear similar. Edison DouglassSCarmine IMG NM PROCEDURES documented in this encounter Visit Diagnoses Diagnosis Lymphoma Nodular Multiple Site (HCC) documented in this encounter Administered Medications Inactive Administered Medications - up to 3 most recent administrations Medication Order MAR Action Action Date Dose Rate Site fludeoxyglucose F 18 Given 03/17/2021 6:56 AM 9.95 millicuries injection [facility] (FDG F-18) CDT 9.95 millicurie, intravenous, Once, On Tue03/17/21 at 0715, For 1 dose documented in this encounter Care Teams Crepe Sole Scourer Relationship Specialty Start Date End Date Elsewhere, Pcp PCP - General Family Medicine 10/25/18 documented as of this encounter
--- OUTSIDE RECORDS SUMMARY | 2022-08-30 08:38 | XMS_ITS | Encounter Summary ---
:1945 Author Organization [facility] Address [address] [place] [address] Care Team Providers Name Role Phone Elsewhere, Pcp Primary Care Provider Unavailable Encounter Details Date Type Department Care Team Description 04/30/2021 Documentation Preoperative Evaluation Charmaine Ramos, [place] in [facility] [address] [facility] [address] [place] [phone] Social History Tobacco Use Types Packs/Day Years [...] (Electronic Medical Record) to ascertain if a JENNIFRE (Pre-Op Exam) appointment is needed. Scheduled for [...] should skip all oral anti-diabetic agents, ANGELIC (zgzsmdjehxr-fuftjfjgzz-qkmkqf) inhibitors, diuretics, ARB's (angiotensin receptor blockers) and tobacco products on the day of the procedure. This is a JENNIFER pre-screening note. The patient was not seen in JENNIFER. documented in this encounter Plan of Treatment Upcoming Encounters Date Type Specialty Care Team Description 10/11/2022 Appointment Laboratory Medicine Natasha Mullins APRN, C.N.P., M.S.N. [address] [place] [phone] (Joanie velázquez) 10/11/2022 Ancillary Procedure Cardiovascular Disease Natasha Cramer APRN, C.N.P., M.S.N. [address] [place] [phone] (Joanie velázquez) 10/11/2022 Appointment Cardiovascular Disease Natasha Mullins APRN, C.N.P., M.S.N. [address] [place] [address] [phone] (Joanie velázquez) 10/12/2022 Office Visit Cardiovascular Disease Natasha Mullins APRN, C.N.P., M.S.N. [address] [place] [phone] (Joanie velázquez) documented as of this encounter Visit Diagnoses Not on filedocumented in this encounter Care Teams Data Assistant Relationship Specialty Start Date End Date Elsewhere, Pcp PCP - General Family Medicine 10/25/18 documented as of this encounter
--- OUTSIDE RECORDS SUMMARY | 2022-08-30 08:38 | XMS_ITS | Encounter Summary ---
:1945 Author Organization [facility] Address [address] [place] [address] Care Team Providers Name Role Phone Elsewhere, Pcp Primary Care Provider Unavailable Reason for Referral Outpatient (Routine) - Closed Specialty Diagnoses / Procedures Referred By Contact Refer red To Contact Hematology Oncology Margy Mcintyre Rochest [facility] VY, C.N.PCarmine, D.N.P. [address] [place] [phone] Referral ID Status Reason Start Date Expiration Date Visits Requ ested Visits Authorized [id number] Closed 03/17/2021 03/17/2022 1 1 Reason for Visit Outpatient (Routine) - Closed Specialty Diagnoses / Procedures Referred By Contact Refer red To Contact Hematology Oncology Edison Alvarez M.B.B.S. 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 200 [facility] [address] [facility] [place] [phone] Social History Tobacco Use Types Packs/Day Years [...] CHIEF COMPLAINT / REASON FOR VISIT Primary insole bottom filler: Dr. Dionicio Muniz low-grade B-cell lymphoma HISTORY [...] Natasha Mullins APRN, C.N.P., M.S.N. [address] [place] [phone] (Joanie ) 10/11/2022 Ancillary Procedure Cardiovascular Disease Natasha Cramer APRN, C.N.P., M.S.N. [address] [place] [phone] (Joanie rk) 10/11/2022 Appointment Cardiovascular Disease Natasha Mullins APRN, C.NRenetta, M.S.N. [address] [place] [phone] (Wo rk) 10/12/2022 Office Visit Cardiovascular Disease Natasha Mullins APRN, C.NRenetta, M.S.N. [address] [place] [phone] (Wo rk) Scheduled Referrals Name Type Priority [...] Organization Address City/State/ZIP Code Phon e Number [place] [address] [place] [address] [place] [address] System in [place] [address] Bl LD (Lactate Dehydrogenase) (04/08/2022 10:39 AM CDT) [...] Organization Address City/State/ZIP Code Phon e Number [facility]- [address] [place] [place] [address] [place] [address] System in [place] [address] Creatinine with Estimated GFR (04/08/2022 10:39 AM CDT) P athologist Signature Creatinine 0.78 0.74 - 04/08/2022 CNFL 1.35 mg/dL 11:00 AM CDT eGFR-Black/Afric >90 >=60 04/08/2022 CNFL an Bruneian mL/min/BSA 11:00 AM CDT Comment: ----ADDITIONAL INFORMATION---- [...] AM CDT 10:41 AM CDT Danny Rodas APRNNLibrado., D.N.P. LAB BLOOD ADD- ON Performing Organization Address City/State/[facility] Code Phon e Number [facility]- [address] [place] [address] [place] [address] [place] [address] [address] (ABNORMAL) CBC with Differential, Blood (04/08/2022 [...] Organization Address City/State/ZIP Code Phon e Number [facility]- [address] [place] [address] [place] [address] System in [address] Calcium, Total (04/08/2022 10:39 AM CDT) P athologist Signature Calcium, Total, 8.8 8.8 - 10.2 04/08/2022 CNFL P mg/dL 11:00 AM CDT Specimen Anatomical Collection Method Collection Time Receive d Time (Source) Location / / Volume Laterality Blood (Blood, 04/08/2022 10:39 04/08/2022 Venous) AM CDT 10:41 AM CDT Radha Rodas APRN.N.P., D.N.P. LAB BLOOD ADD- ON Performing Organization Address City/[facility] Code Phon e Number [address] [address] [place] [address] System in [place] [address] Bl Bilirubin, Total (04/08/2022 10:39 AM CDT) P athologist Signature Bilirubin, 0.3 <=1.2 mg/dL 04/08/2022 CNFL Total, P 11:00 AM CDT Specimen Anatomical Collection Method Collection Time Receive d Time (Source) Location / / Volume Laterality Blood (Blood, 04/08/2022 10:39 04/08/2022 Venous) AM CDT 10:41 AM CDT Radha Rodas APRN.N.P., D.N.P. LAB BLOOD ADD- ON Performing Organization Address [facility] Phon e Number [address] [address] [place] [address] System in [address] AST (Aspartate Aminotransferase) (04/08/2022 10:39 AM [...] LAB BLOOD ADD- ON Performing Organization Address City/[facility]/ZIP Code Phon e Number [address] [address] [place] [address] System in [address] Alkaline Phosphatase (04/08/2022 10:39 AM CDT) [...] Organization Address City/State/ZIP Code Phon e Number [address] [address] [place] [address] System in [address] documented in this encounter Visit Diagnoses Diagnosis Unspecified 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
--- OUTSIDE RECORDS SUMMARY | 2022-08-30 08:38 | XMS_ITS | Encounter Summary ---
:1945 Author Organization [facility] Address [address] [place] [address] Care Team Providers Name Role Phone Elsewhere, Pcp Primary Care Provider Unavailable Reason for Referral MRI/CAT/PET Scan (Routine) - Closed Specialty Diagnoses / Procedures Referred By Contact Refer red To Contact Radiology Diagnoses Malignant Neoplasm Of Thyroid (HCC) Da Carr M.D. [facility] Procedures CT Neck Soft Tissue with IV Contrast CT Neck Soft Tissue without and with IV Contrast [address] [place] [address] Referral ID Status Reason Start Date Expiration Date Visits Requ ested Visits Authorized [id number] Closed 04/21/2021 04/21/2022 1 1 Reason for Visit Outpatient (Routine) - Closed Specialty Diagnoses / Procedures Referred By Contact Refer red To Contact Otorhinolaryngology Diagnoses Malignant Neoplasm [facility]roid (HCC) [facility] [place] [address] [place] [address] Referral ID Status Reason Start Date Expiration Date Visits Requ ested Visits Authorized [id number] Closed 03/19/2021 03/19/2022 1 1 Encounter Details Date Type Department Care Team Description 04/21/2021 Comprehensive Visit Department of Lilly matias Otorhinolaryngology in Da Neopl asm [place], [place] Lupillo Thyroid (HCC) [address] [place] [address] (Primary Dx) [place] [address] Social History Tobacco Use Types Packs/Day [...] or relatives? How often do you attend episcopal or More than 4 times per year 10/15/2019 scientologist services? Do you belong to any clubs or Yes 10/15/2019 organizations such as episcopal groups, unions, fraternal or athletic groups, or [...] Da Carr M.D. CT CT Job ID: [id number] documented in this encounter Plan of Treatment Upcoming Encounters Date Type Specialty Care Team Description 10/11/2022 Appointment Laboratory Medicine Natasha Mullins APRN, C.N.P., M.S.N. [address] [place] [phone] (Joanie velázquez) 10/11/2022 Ancillary Procedure Cardiovascular Disease Natasha Cramer APRN, C.N.P., M.S.N. [address] [place] [phone] (Joanie velázquez) 10/11/2022 Appointment Cardiovascular Disease Natasha Mullins APRN, Radha.NLibrado., M.S.N. [address] [place] [address] (Wo rk) 10/12/2022 Office Visit Cardiovascular Disease Natasha Mullins APRN, C.NLibrado., M.S.N. [address] [place] [phone] (Wo rk) documented as of this encounter [...] 04/22/2021 DTL Black/ mL/min/BSA 4:53 PM CDT Jordanian Comment: ----ADDITIONAL INFORMATION---- Estimated GFR calculated using [...] Organization Address City/State/ZIP Code Phon e Number [facility] - [address] [place], [place] [address] [facility] [place] [address] [facility] [address] documented in this encounter Visit Diagnoses Diagnosis Malignant Neoplasm Of Thyroid (HCC) - Pr imary Malignant Neoplasm Of Thyroid (HCC) documented in this encounter Care Teams Director Of Strategic Communications Relationship Specialty Start Date End Date Elsewhere, Pcp PCP - General Family Medicine 10/25/18 documented as of this encounter
--- OUTSIDE RECORDS SUMMARY | 2022-08-30 08:38 | XMS_ITS | Encounter Summary ---
:1945 Author Organization [facility] Address [address] [place] [address] Care Team Providers Name Role Phone Elsewhere, Pcp Primary Care Provider Unavailable Encounter Details Date Type Department Care Team Description 04/23/2021 Documentation Department of [facility] Otorhinolaryngology alma Carballo M.D. [place], [place] [address] [place] [address] Social History Tobacco Use Types Packs/Day [...] Medicine Natasha Mullins APRN, C.N.P., M.S.N. [address] [place] [phone] (Joanie rk) 10/11/2022 Ancillary Procedure Cardiovascular Disease Natasha Cramer APRN, Radha.N.P., M.S.N. [address] [place] [phone] (Joanie velázquez) 10/11/2022 Appointment Cardiovascular Disease Natasha Mullins APRN, Radha.N.P., M.S.N. [address] [place] [phone] (Joanie rk) 10/12/2022 Office Visit Cardiovascular Disease Natasha Mullins APRN, C.N.P., M.S.N. [address] [place] [phone] (Joanie rk) documented as of this encounter Visit Diagnoses Not on filedocumented in this encounter Care Teams Paleology Teacher Relationship Specialty Start Date End Date Elsewhere, Pcp PCP - General Family Medicine 10/25/18 documented as of this encounter
--- OUTSIDE RECORDS SUMMARY | 2022-08-30 08:38 | XMS_ITS | Encounter Summary ---
:1945 Author Organization [facility] Address [address] [place] [address] Care Team Providers Name Role Phone Elsewhere, Pcp Primary Care Provider Unavailable Reason for Referral MRI/CAT/PET Scan (Routine) - Closed Specialty Diagnoses / Procedures Referred By Contact Refer red To Contact Radiology Diagnoses Malignant Neoplasm Of Thyroid (HCC) Loni Wu M.D. [facility] Procedures CT Chest without IV Contrast [address] [place] [phone] Referral ID Status Reason Start Date Expiration Date Visits Requ ested Visits Authorized [id number] Closed 03/10/2021 03/10/2022 1 1 Reason for Visit MRI/CAT/PET Scan (Routine) - Closed Specialty Diagnoses / Procedures Referred By Contact Refer red To Contact Radiology Diagnoses Malignant Neoplasm Of Thyroid (HCC) Loni Wu M.D. [facility] Procedures CT Chest without IV Contrast [address] [place] [phone] Referral ID Status Reason Start Date Expiration Date Visits Requ ested Visits Authorized [id number] Closed 03/10/2021 03/10/2022 1 1 Encounter Details Date Type Department Care Team Description 03/12/2021 Hospital Encounter Department of Loni Wu Neoplasm Of Radiology, Jethro Love M.D. Thyroid (HCC) Building, in [address] [place] [address] [place] [phone] [place], [place] [phone] (Work) [phone] Social History Tobacco Use Types Packs/Day Years [...] Medicine Natasha Mullins APRN, Radha.N.P., M.S.N. [address] [place] [phone] (Wo rk) 10/11/2022 Ancillary Procedure Cardiovascular Disease Natasha Cramer APRN, Radha.N.P., M.S.N. [address] [place] [phone] (Wo rk) 10/11/2022 Appointment Cardiovascular Disease Natasha Mullins APRN, Radha.N.P., M.S.N. [address] [place] [phone] (Joanie rk) 10/12/2022 Office Visit Cardiovascular Disease Natasha Mullins APRN, C.N.P., M.S.N. [address] [place] [phone] (Joanie rk) documented as of this [...] (HCC) documented in this encounter Care Teams Brim Setter Relationship Specialty Start Date End Date Elsewhere, Pcp PCP - General Family Medicine 10/25/18 documented as of this encounter
--- OUTSIDE RECORDS SUMMARY | 2022-08-30 08:38 | XMS_ITS | Encounter Summary ---
:1945 Author Organization [facility] Address [address] [place] [address] Care Team Providers Name Role Phone Elsewhere, Pcp Primary Care Provider Unavailable Reason for Referral Outpatient (Routine) - Closed Specialty Diagnoses / Procedures Referred By Contact Refer red To Contact Endocrinology Loni uW M .D. [address] [phone] Referral ID Status Reason Start Date Expiration Date Visits Requ ested Visits Authorized [id number] Closed 03/13/2021 03/13/2022 1 1 Scheduling Instructions Return after PET. Discussed with him. Reason for Visit Outpatient (Routine) - Closed Specialty Diagnoses / Procedures Referred By Contact Refer trudi To Contact Endocrinology Loni Wu M .D. [address] [phone] Referral ID Status Reason Start Date Expiration Date Visits Requ ested Visits Authorized [id number] Closed 03/11/2021 03/11/2022 1 1 Encounter Details Date Type Department Care Team Description 03/13/2021 Office Visit Division of Loni Wu Neopl asm Of Endocrinology in [place] Thyroid Papillary [place], [place] 200 [facility] (HCC) (Primary Dx) [address] [place] [phone] Social History Tobacco Use Types Packs/Day Years [...] spent some time also talking to his lab rn. He was expected to come back forfollowup with a repeat PET scan in April of this year as his previous PET [...] Loni Wu M.D. CT CT Job ID: [id number] documented in this encounter Plan of Treatment Upcoming Encounters Date Type Specialty Care Team Description 10/11/2022 Appointment Laboratory Medicine Natasha Mullins APRN, Radha.N.P., M.S.N. [address] [place] [phone] (Joanie velázquez) 10/11/2022 Ancillary Procedure Cardiovascular Disease Natasha Cramer APRN, Radha.N.P., M.S.N. [address] [place] [phone] (Joanie velázquez) 10/11/2022 Appointment Cardiovascular Disease Natasha Mullins APRN, C.N.P., M.S.N. [address] [place] [phone] (Joanie velázquez) 10/12/2022 Office Visit Cardiovascular Disease Natasha Mullins APRN, Radha.N.P., M.S.N. 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
--- OUTSIDE RECORDS SUMMARY | 2022-08-30 08:38 | XMS_ITS | Encounter Summary ---
:1945 Author Organization [facility] Address [address] [place] [address] Care Team Providers Name Role Phone Elsewhere, Pcp Primary Care Provider Unavailable Reason for Visit Reason Comments Return Visit Outpatient (Routine) - Closed Specialty Diagnoses / Procedures Referred By Contact Refer red To Contact Endocrinology Loni Wu M .D. [facility] [address] [place] [phone] Referral ID Status Reason Start Date Expiration Date Visits Requ ested Visits Authorized [id number] Closed 03/13/2021 03/13/2022 1 1 Encounter Details Date Type Department Care Team Description 04/22/2021 Office Visit Division of Loni Wu Lymphadenopathy Cervical Endocrinology in [place] (Primary Dx) [place], [place] [address] [place] [address] [place] [phone] Social History Tobacco Use Types Packs/Day Years [...] 10/15/2019 organizations such as jewish groups, unions, [employer] or athletic groups, or school groups? [...] Loni Wu M.D. CT CT Job ID: [id number] documented in this encounter Plan of Treatment Upcoming Encounters Date Type Specialty Care Team Description 10/11/2022 Appointment Laboratory Medicine Natasha Mullins APRN, Radha.N.PCarmine, M.S.N. [address] [place] [phone] (Wo rk) 10/11/2022 Ancillary Procedure Cardiovascular Disease Natasha Cramer APRN, C.N.Jalen, M.S.N. [address] [place] [phone] (Wo rk) 10/11/2022 Appointment Cardiovascular Disease Natasha Mullins APRN, Radha.N.[place]., M.S.N. [address] [place] [phone] (Wo rk) 10/12/2022 Office Visit Cardiovascular Disease Natasha Mullins APRN, C.N.P., M.S.N. [address] [place] [phone] (Wo rk) documented as of this encounter Visit Diagnoses Diagnosis Lymphadenopathy Cervical - Primary documented in this encounter Care Teams Early Years Teacher Relationship Specialty Start Date End Date Elsewhere, Pcp PCP - General Family Medicine 10/25/18 documented as of this encounter
--- OUTSIDE RECORDS SUMMARY | 2022-08-30 08:38 | XMS_ITS | Encounter Summary ---
:1945 Author Organization [facility] Address [address] [place] [address] Care Team Providers Name Role Phone Elsewhere, Pcp Primary Care Provider Unavailable Reason for Visit Reason Comments questions about stopping plavix before surgery Encounter Details Date Type Department Care Team Description 05/21/2021 [facility] t Communication Otorhinolaryngology in , Da Carballo, stop ping plavix [place], [place] M.DCarmine before surgery [address] [place], [place] [phone] Social History Tobacco Use Types Packs/Day [...] Miscellaneous Notes Telephone Encounter - Iqra Rose - 05/21/2021 2:12 PM CDT Patient called. [...] History of lymphoma #3 Bilateral nasal polyps [phone] ok to leave message Thanks Iqra documented in this encounter Plan of Treatment Upcoming Encounters Date Type Specialty Care Team Description 10/11/2022 Appointment Laboratory Medicine Natasha Mullins APRN, C.N.P., M.S.N. [address] [place] [phone] (Wo rk) 10/11/2022 Ancillary Procedure Cardiovascular Disease Natasha Cramer APRN, C.N.P., M.S.N. [address] [place] [phone] (Wo rk) 10/11/2022 Appointment Cardiovascular Disease Natasha Mullins APRN, C.N.P., M.S.N. [address] [place] [phone] (Wo rk) 10/12/2022 Office Visit Cardiovascular Disease Natasha Mullins APRN, C.N.P., M.S.N. [address] [place] [phone] (Wo rk) documented as of this encounter Visit Diagnoses Not on filedocumented in this encounter Additional Health Concerns Infection Onset Date Last Indicated Resolved Time COVID19 Pending 05/26/2021 05/26/2021 05/26/2021 12:04 PM CDT documented as of this encounter Care Teams Western Felt Hat Blocker Relationship Specialty Start Date End Date Elsewhere, Pcp PCP - General Family Medicine 10/25/18 documented as of this encounter
--- OUTSIDE RECORDS SUMMARY | 2022-08-30 08:38 | XMS_ITS | Encounter Summary ---
:1945 Author Organization [facility] Address [address] [place] [address] Care Team Providers Name Role Phone Elsewhere, Pcp Primary Care Provider Unavailable Reason for Referral Outpatient (Routine) - Closed Specialty Diagnoses / Procedures Referred By Contact Refer red To Contact Otorhinolaryngology Diagnoses Malignant Neoplasm Of Thyroid (HCC) Loni Wu [place] M.D. [address] [place] [address] Referral ID Status Reason Start Date Expiration Date Visits Requ ested Visits Authorized [id number] Closed 03/19/2021 03/19/2022 1 1 Scheduling Instructions Please schedule with Lilly as it i s his patient Encounter Details Date Type Department Care Team Description 03/19/2021 Orders Only Division of Endocrinology Loni Wu Ma lignant Neoplasm Of in [facility] milan Love M.D. Thyroid (HCC) (Primary [address] Dx) [place] [address] [place], [place] [phone] Social History Tobacco Use Types Packs/Day Years [...] 10/15/2019 organizations such as samaritan groups, unions, [employer] or athletic groups, or school groups? How [...] Medicine Natasha Mullins APRN, C.N.P., M.S.N. [address] [place] [phone] (Joanie velázquez) 10/11/2022 Ancillary Procedure Cardiovascular Disease Natasha Cramer APRN, Radha.N.P., M.S.N. [address] [place] [phone] (Joanie rk) 10/11/2022 Appointment Cardiovascular Disease Natasha Mullins APRN, C.N.P., M.S.N. [address] [place] [phone] (Joanie rk) 10/12/2022 Office Visit Cardiovascular Disease Natasha Mullins APRN, Radha.N.P., M.S.N. [address] [place] [phone] (Joanie rk) Scheduled Referrals Name Type Priority Associated Order Schedule Diagnoses Otorhinolaryngology - Head Outpatient Routine Malignant E xpected: and neck surgery consult Referral Neoplasm Of 04/2021 (clinic) Thyroid (HCC) (Approximate), Expires: 03/19/2024 documented as of this encounter Visit Diagnoses Diagnosis Malignant Neoplasm Of Thyroid (HCC) - Pr imary documented in this encounter Care Teams Wedding Coordinator Relationship Specialty Start Date End Date Elsewhere, Pcp PCP - General Family Medicine 10/25/18 documented as of this encounter
--- OUTSIDE RECORDS SUMMARY | 2022-08-30 08:38 | XMS_ITS | Encounter Summary ---
:1945 Author Organization [facility] Address [address] [place] [address] Care Team Providers Name Role Phone Elsewhere, Pcp Primary Care Provider Unavailable Reason for Visit Reason Comments clarify order Encounter Details Date Type Department Care Team Description 03/27/2021 Clinical Communication Division of Loni Wu order Endocrinology in [place], [place] [address] [facility] [address] [place] [phone] Social History Tobacco Use Types Packs/Day Years [...] Natasha Mullins APRN, C.N.P., M.S.N. [address] [place] [phone] (Joanie rk) 10/11/2022 Ancillary Procedure Cardiovascular Disease Natasha Cramer APRN, C.N.P., M.S.N. [address] [place] [phone] (Joanie rk) 10/11/2022 Appointment Cardiovascular Disease Natasha Mullins APRN, C.N.P., M.S.N. [address] [place] [phone] (Joanie rk) 10/12/2022 Office Visit Cardiovascular Disease Natasha Mullins APRN, C.N.P., M.S.N. [address] [place] [phone] (Joanie rk) documented as of this encounter Visit Diagnoses Not on filedocumented in this encounter Care Teams Paleology Teacher Relationship Specialty Start Date End Date Elsewhere, Pcp PCP - General Family Medicine 10/25/18 documented as of this encounter
--- OUTSIDE RECORDS SUMMARY | 2022-08-30 08:38 | XMS_ITS | Encounter Summary ---
:1945 Author Organization [facility] Address [address] [place] [address] Care Team Providers Name Role Phone Elsewhere, Pcp Primary Care Provider Unavailable Encounter Details Date Type Department Care Team Description 04/22/2021 Hospital Encounter Department of Viviana Carr Neoplasm Of Laboratory Medicine Da Carballo M.D. Thyroid (HCC) and Pathology, [facility] in [place], [place] [address] [place] [address] Social History Tobacco Use Types Packs/Day Years [...] Natasha Mullins APRN, C.N.P., M.S.N. [address] [place] [phone] (Joanie velázquez) 10/11/2022 Ancillary Procedure Cardiovascular Disease Natasha Cramer APRN, C.N.Jalen, M.S.N. [address] [place] [phone] (Joanie velázquez) 10/11/2022 Appointment Cardiovascular Disease Natasha Mullins APRN, C.NLibrado., M.S.N. [address] [place] [phone] (Wo rk) 10/12/2022 Office Visit Cardiovascular Disease Natasha Mullins APRN, C.NRenetta, M.S.N. [address] [place] [phone] (Wo rk) documented as of this encounter [...] 04/22/2021 DTL Black/ mL/min/BSA 4:53 PM CDT [place] Citizen Comment: ----ADDITIONAL INFORMATION---- Estimated GFR calculated using [...] Organization Address City/State/ZIP Code Phon e Number [facility] - [address] [place] [address] [facility] [place] [address] Laboratories-[facility] 200 [facility] documented in this encounter Visit Diagnoses Diagnosis Malignant Neoplasm Of Thyroid (HCC) documented in this encounter Care Teams Extruding Press Adjuster Relationship Specialty Start Date End Date Elsewhere, Pcp PCP - General Family Medicine 10/25/18 documented as of this encounter
--- OUTSIDE RECORDS SUMMARY | 2022-08-30 08:39 | XMS_ITS | Encounter Summary ---
:1945 Author Organization [facility] Address [address] [place] [address] Care Team Providers Name Role Phone Elsewhere, Pcp Primary Care Provider Unavailable Encounter Details Date Type Department Care Team Description 01/14/2021 Lab Department of Laboratory Bay Mccurdy, Hernia Inguinal Left Medicine and Pathology, D.O. [facility] in [address] [place] [phone] [place] [phone] Social History Tobacco Use Types Packs/Day Years [...] or relatives? How often do you attend zoroastrian or More than 4 times per year 10/15/2019 mormonism services? Do you belong to any clubs or Yes 10/15/2019 organizations such as zoroastrian groups, unions, fraternal or athletic groups, or [...] Natasha Mullins APRN, C.N.P., M.S.N. [address] [place] [phone] (Wo rk) 10/11/2022 Ancillary Procedure Cardiovascular Disease Natasha Cramer APRN, Radha.N.[place]., M.S.N. [address] [place] [phone] (Wo rk) 10/11/2022 Appointment Cardiovascular Disease Natasha Mullins APRN, C.N.[place]., M.S.N. [address] [place] [phone] (Wo rk) 10/12/2022 Office Visit Cardiovascular Disease Natasha Mullins APRN, Radha.N.Jalen, M.S.N. [address] [place] [phone] (Wo rk) documented as of this encounter Procedures Procedure Name Priority Date/Time Associated Diagnosis Comme nts SARS CORONAVIRUS-2, Routine 01/14/2021 10:02 AM Hernia Inguina l Left Results for this PCR ROUSTABOUT CREW LEADER procedure are i n the results section. documented in this encounter Results SARS Coronavirus-2, PCR Asymptomatic (01/14/2021 10:02 AM ROUSTABOUT CREW LEADER) [facility] gist Method Time Signature SARS Swab, 01/14/2021 DTL Coronavirus-2 Nasopharynx 11:55 PM Source ROUSTABOUT CREW LEADER SARS Undetected Undetected 01/14/2021 DTL Coronavirus-2 11:55 PM , PCR ROUSTABOUT CREW LEADER Comment: SARS-CoV-2 RNA absent. This result does not rule out COVID-19 in the patient, as the sensitivity of the test depends o n the timing of the specimen collection and quality of the specimen. Result should be correlated with patient's history and clinical presentat ion. ----ADDITIONAL INFORMATION---- This test was developed and its performa nce characteristics determined by [facility] in a manner co nsistent with CLIA requirements. Independent review by the U.S. Food and Drug Administration is pending. Visit the CDC website: https://www.cdc.gov/coronavirus/ ?? for the most recent guidelines on [place] virus testing. Fact Sheet for Healthcare Providers: (https://www.[employer]/it-mmfil es/ Provider_Fact_Sheet_for_[facility]_COVI D-19.pdf) Fact Sheet for Patients: (https://www.[employer]/it-mmfil es/ Patient_Fact_Sheet_for_COVID-19.pdf) Specimen Anatomical Collection Method Collection Time Receive d Time (Source) Location / / Volume Laterality Varies 01/14/2021 10:02 01/14/2021 (Nasopharynx) AM ROUSTABOUT CREW LEADER 11:13 AM ROUSTABOUT CREW LEADER Bay Mccurdy D.O. LAB MICROBIOLOGY - GENERAL O RDERABLES Performing Organization Address City/State/ZIP Code Phon e Number [facility] - [address] [place], [place] [address] [facility] [place] [address] Laboratories-[facility] [address] documented in this encounter Visit Diagnoses Diagnosis Hernia Inguinal Left documented in this encounter Additional Health Concerns Infection Onset Date Last Indicated Resolved Time COVID19 Pending 01/14/2021 01/14/2021 01/14/2021 11:55 PM ROUSTABOUT CREW LEADER documented as of this encounter Care Teams Mid Wife Relationship Specialty Start Date End Date Elsewhere, Pcp PCP - General Family Medicine 10/25/18 documented as of this encounter
--- OUTSIDE RECORDS SUMMARY | 2022-08-30 08:39 | XMS_ITS | Encounter Summary ---
:1945 Author Organization [facility] Address [address] [place] [address] Care Team Providers Name Role Phone Elsewhere, Pcp Primary Care Provider Unavailable Reason for Visit Reason Comments Post Hospital Follow-up 01/16/2021 Left Inquinal Herni a Repair with mesh Outpatient (Routine) - Closed Specialty Diagnoses / Procedures Referred By Contact Refer red To Contact Steven Trotter M.D. [facility] [address] [place] [phone] Referral ID Status Reason Start Date Expiration Date Visits Requ ested Visits Authorized [id number] Closed 01/16/2021 01/16/2022 1 1 Encounter Details Date Type Department Care Team Description 01/28/2021 Clinical Communication Division of Trauma Sergo , Post Hospital Critical Care and Steven Garcia M.D. Follow-up (01/16/2021 General Surgery in [address] [facility] Left Inquinal [place], [place] Hernia Repair with [place] [phone] mesh) [address] [facility] [phone] [place], [place] (Work) [phone] Social History Tobacco Use Types Packs/Day Years [...] requested a letter to be sent by [facility] corporation secretary. documented in this encounter Plan of Treatment Upcoming Encounters Date Type Specialty Care Team Description 10/11/2022 Appointment Laboratory Medicine Natasha Mullins APRN, C.N.P., M.S.N. [address] [place] [phone] (Joanie velázquez) 10/11/2022 Ancillary Procedure Cardiovascular Disease Natasha Cramer APRN, C.N.P., M.S.N. [address] [place] [phone] (Joanie velázquez) 10/11/2022 Appointment Cardiovascular Disease Natasha Mullins APRN, C.N.P., M.S.N. [address] [place] [phone] (Joanie velázquez) 10/12/2022 Office Visit Cardiovascular Disease Natasha Mullins APRN, C.N.P., M.S.N. [address] [place] [phone] (Joanie velázquez) documented as of this encounter Visit Diagnoses Not on filedocumented in this encounter Care Teams [place] Pilot Relationship Specialty Start Date End Date Elsewhere, Pcp PCP - General Family Medicine 10/25/18 documented as of this encounter
--- OUTSIDE RECORDS SUMMARY | 2022-08-30 08:39 | XMS_ITS | Encounter Summary ---
:1945 Author Organization [facility] Address [address] [place] [address] Care Team Providers Name Role Phone Elsewhere, Pcp Primary Care Provider Unavailable Encounter Details Date Type Department Care Team Description 01/05/2021 Documentation Preoperative Evaluation Charmaine Ramos, Docena in [facility] [address] [facility] [address] [place] [phone] Social History Tobacco Use Types Packs/Day Years [...] should skip all oral anti-diabetic agents, ANGELIC (lqyenkgydwm-pocyhddkfb-zeqlja) inhibitors, diuretics, ARB's (angiotensin receptor blockers) and tobacco products on the day of the procedure. This is a JENNIFER pre-screening note. The patient was not seen in JENNIFER. BILITY MANAGER documented in this encounter Plan of Treatment Upcoming Encounters Date Type Specialty Care Team Description 10/11/2022 Appointment Laboratory Medicine Natasha Mullins APRN, C.N.P., M.S.N. [address] [place] [address] [phone] (Joanie velázquez) 10/11/2022 Ancillary Procedure Cardiovascular Disease Natasha Cramer APRN, Radha.N.P., M.S.N. [address] [place] [address] [phone] (Joanie velázquez) 10/11/2022 Appointment Cardiovascular Disease Natasha Mullins APRN, C.N.P., M.S.N. [address] [place] [address] [phone] (Joanie velázquez) 10/12/2022 Office Visit Cardiovascular Disease Natasha uMllins APRN, Radha.N.P., M.S.N. [address] [place] [address] [phone] (Wo rk) documented as of this encounter Visit Diagnoses Not on filedocumented in this encounter Care Teams Salt Refiner Relationship Specialty Start Date End Date Elsewhere, Pcp PCP - General Family Medicine 10/25/18 documented as of this encounter
--- OUTSIDE RECORDS SUMMARY | 2022-08-30 08:39 | XMS_ITS | Encounter Summary ---
:[address] [facility] Address [address] [place] [address] Care Team Providers Name Role Phone Elsewhere, Pcp Primary Care Provider Unavailable Reason for Referral MRI/CAT/PET Scan (Routine) - Closed Specialty Diagnoses / Procedures Referred By Contact Refer red To Contact Radiology Diagnoses Malignant Neoplasm Of Thyroid (HCC) Loni Wu M.D. [facility] Procedures CT Chest without IV Contrast [address] [place] [address] Referral ID Status Reason Start Date Expiration Date Visits Requ ested Visits Authorized [id number] Closed 03/10/2021 03/10/2022 1 1 Encounter Details Date Type Department Care Team Description 03/10/2021 Orders Only Division of Endocrinology Loni Wu Ma lignant Neoplasm Of in [facility] milan Love M.D. Thyroid (HCC) (Primary [address] [place]x) [place] [address] [place], [place] [phone] Social History Tobacco Use Types Packs/Day Years [...] Medicine Natasha Mullins APRN, C.N.P., M.S.N. [address] [place] [phone] (Joanie velázquez) 10/11/2022 Ancillary Procedure Cardiovascular Disease Natasha Cramer APRN, C.N.P., M.S.N. [address] [place] [phone] (Joanie velázquez) 10/11/2022 Appointment Cardiovascular Disease Natasha Mullins APRN, C.N.P., M.S.N. [address] [place] [phone] (Joanie velázquez) 10/12/2022 Office Visit Cardiovascular Disease Natasha Mullins APRN, C.N.P., M.S.N. [address] [place] [phone] (Joanie velázquez) documented as of this encounter Results CT [...] documented in this encounter Care Teams Director Loss Prevention Relationship Specialty Start Date End Date Elsewhere, Pcp PCP - General Family Medicine 10/25/18 documented as of this encounter
--- OUTSIDE RECORDS SUMMARY | 2022-08-30 08:39 | XMS_ITS | Encounter Summary ---
:1945 Author Organization [facility] Address [address] [place] [address] Care Team Providers Name Role Phone Elsewhere, Pcp Primary Care Provider Unavailable Encounter Details Date Type Department Care Team Description 03/10/2021 Hospital Encounter Department of Loni Wu Neoplasm Of Laboratory Medicine Lupillo Love Thyroid (HCC) and Pathology, [address] [place] [address] in [place], [place] [phone] [place] [address] [place], [place] (Work) [phone] Social History Tobacco Use [...] Natasha Mullins APRN, Radha.N.P., M.S.N. [address] [place] [phone] (Joanie velázquez) 10/11/2022 Ancillary Procedure Cardiovascular Disease Natasha Cramer APRN, Radha.N.P., M.S.N. [address] [place] [phone] (Wo rk) 10/11/2022 Appointment Cardiovascular Disease Natasha Mullins APRN, Radha.N.P., M.S.N. [address] [place] [phone] (Wo rk) 10/12/2022 Office Visit Cardiovascular Disease Natasha Mullins APRN, C.N.P., M.S.N. [address] [place] [address] (Wo rk) documented as of this encounter [...] Address City/State/ZIP Code Phon e Number [facility] - [address] [place] [phone] [facility] [place] [address] [facility] 200 [facility] (ABNORMAL) T4 (Thyroxine), Free (03/10/2021 9:44 [...] Address City/State/ZIP Code Phon e Number [facility] - [address] [place], [place] [address] [facility] [place] [address] [facility] [address] (ABNORMAL) Thyroglobulin, Tumor Marker (03/10/2021 9:44 AM CDT) [facility] Method Time Signature Thyroglobulin 27 (H) <1.8 IU/mL 03/10/2021 [facility] Antibody, S 2:35 PM CDT Thyroglobulin, 17 (H) ng/mL 03/10/2021 [facility] Tumor Marker, S 2:52 PM CDT Comment: ----REFERENCE VALUE---- Athyrotic <0.1 Intact Thyroid <=33 Thyroglobulin Interpretation SEE COMMENT 2:52 PM CDT [facility] Comment: Quantitation of thyroglobulin may be [...] testing methods are immunoenzymatic assays manufactured by [employer] and performed on the Dental Fix RX DXI 800 . Values obtained from different [...] Address City/State/ZIP Code Phon e Number [facility] [address] [place] [address] [place] [address] Laboratory Medicine and Pathology [address] [place] documented in this encounter Visit Diagnoses Diagnosis Malignant Neoplasm Of Thyroid (HCC) documented in this encounter Care Teams Assistant Professor Of Music Relationship Specialty Start Date End Date Elsewhere, Pcp PCP - General Family Medicine 10/25/18 documented as of this encounter
--- OUTSIDE RECORDS SUMMARY | 2022-08-30 08:39 | XMS_ITS | Encounter Summary ---
:1945 Author Organization [facility] Address [address] [place] [address] Care Team Providers Name Role Phone Elsewhere, Pcp Primary Care Provider Unavailable Reason for Referral Outpatient (Routine) - Closed Specialty Diagnoses / Procedures Referred By Contact Refer red To Contact Endocrinology Loni Wu M .D. [facility] [address] [place] [phone] Referral ID Status Reason Start Date Expiration Date Visits Requ ested Visits Authorized [id number] Closed 03/11/2021 03/11/2022 1 1 Outpatient (Routine) - Closed Specialty Diagnoses / Procedures Referred By Contact Refer red To Contact Diagnoses Malignant Neoplasm Of Thyroid (HCC) Loni Wu M.D. [facility] Procedures US Superficial Tissue Fine Needle Aspiration [address] [place] [address] [phone] Referral ID Status Reason Start Date Expiration Date Visits Requ ested Visits Authorized [id number] Closed 03/11/2021 03/11/2022 1 1 Reason for Visit Outpatient (Routine) - Closed Specialty Diagnoses / Procedures Referred By Contact Refer red To Contact Endocrinology Loni Wu M .D. [facility] [address] [place] [address] [phone] Referral ID Status Reason Start Date Expiration Date Visits Requ ested Visits Authorized [id number] Closed 06/03/2020 06/03/2021 1 1 Encounter Details Date Type Department Care Team Description 03/11/2021 Virtual Visit Division of Loni Wu Of Endocrinology in Lupillo Love Thyroid (HCC) [place], [place] [address] [facility] (Primary Dx) [address] [place] [phone] Social History Tobacco Use Types Packs/Day Years [...] More than 4 times per year 10/15/2019 church services? Do you belong to any clubs [...] CDT documented as of this encounter Progress Loni Bellamy M.D. - 03/11/2021 10:30 AM CDT SUBJECTIVE [...] with this plan. He anticipates being at [facility] for the rest of the week as [...] Loni Wu M.D. CT CT Job ID: [id number] documented in this encounter Plan of Treatment Upcoming Encounters Date Type Specialty Care Team Description 10/11/2022 Appointment Laboratory Medicine Natasha Mullins APRN, C.NRenetta, M.S.N. [address] [place] [phone] (Wo rk) 10/11/2022 Ancillary Procedure Cardiovascular Disease Natasha Cramer APRN, C.N.Jalen, M.S.N. [address] [place] [phone] (Wo rk) 10/11/2022 Appointment Cardiovascular Disease Natasha Mullins APRN, C.N.Jalen, M.S.N. [address] [place] [phone] (Joanie rk) 10/12/2022 Office Visit Cardiovascular Disease Natasha Mullins APRN, C.N.Jalen, M.S.N. [address] [place] [phone] (Joanie rk) Scheduled Referrals Name Type [...] (HCC) documented in this encounter Care Teams Soap Tender Relationship Specialty Start Date End Date Elsewhere, Pcp PCP - General Family Medicine 10/25/18 documented as of this encounter
--- OUTSIDE RECORDS SUMMARY | 2022-08-30 08:39 | XMS_ITS | Encounter Summary ---
:1945 Author Organization [facility] Address [address] [place] [address] Care Team Providers Name Role Phone Elsewhere, Pcp Primary Care Provider Unavailable Encounter Details Date Type Department Care Team Description 01/05/2021 Orders Only Division of Trauma Bay Mccurdy Herni a Inguinal Left Critical Care and D, D.O. (Primary Dx) General Surgery in [address] [place] [address] [place] [phone] [place], [place] [phone] (Work) [phone] Social History Tobacco Use Types Packs/Day Years [...] Natasha Mullins APRN, C.N.P., M.S.N. [address] [place] [phone] (Wo rk) 10/11/2022 Ancillary Procedure Cardiovascular Disease Natasha Cramer APRN, Radha.N.Jalen, M.S.N. [address] [place] [phone] (Wo rk) 10/11/2022 Appointment Cardiovascular Disease Natasha Mullins APRN, Radha.N.Jalen, M.S.N. [address] [place] [phone] (Wo rk) 10/12/2022 Office Visit Cardiovascular Disease Natasha Mullins APRN, C.N.Jalen, M.S.N. [address] [place] [phone] (Wo rk) documented as of this encounter Results SARS Coronavirus-2, PCR Asymptomatic (01/14/2021 10:02 AM FISH CUTTER) [facility] Method Time Signature SARS Swab, 01/14/2021 DTL Coronavirus-2 Nasopharynx 11:55 PM Source FISH CUTTER SARS Undetected Undetected 01/14/2021 DTL Coronavirus-2 11:55 PM , PCR FISH CUTTER Comment: SARS-CoV-2 RNA absent. This result does not rule out COVID-19 in the patient, as the sensitivity of the test depends o n the timing of the specimen collection and quality of the specimen. Result should be correlated with patient's history and clinical presentat ion. ----ADDITIONAL INFORMATION---- This test was developed and its performa nce characteristics determined by [facility] in a manner co nsistent with CLIA requirements. Independent review by the U.S. Food and Drug Administration is pending. Visit the CDC website: https://www.cdc.gov/coronavirus/ ?? for the most recent guidelines on [place] virus testing. Fact Sheet for Healthcare Providers: (https://www.Wildfire.MassBioEd/it-mmfil es/ Provider_Fact_Sheet_for_[facility]_COVI D-19.pdf) Fact Sheet for Patients: (https://www.veronaN4MD.com/it-rei es/ Patient_Fact_Sheet_for_COVID-19.pdf) Specimen Anatomical Collection Method Collection Time Receive d Time (Source) Location / / Volume Laterality Varies 01/14/2021 10:02 01/14/2021 (Nasopharynx) AM FISH CUTTER 11:13 AM FISH CUTTER Bay Mccurdy D.O. LAB MICROBIOLOGY - GENERAL O RDERABLES Performing Organization Address City/State/ZIP Code Phon e Number [facility] - [address] [place], [place] [address] [place] [address] [facility] [address] documented in this encounter Visit Diagnoses Diagnosis Hernia Inguinal Left - Primary documented in this encounter Care Teams Pricing Supervisor Relationship Specialty Start Date End Date Elsewhere, Pcp PCP - General Family Medicine 10/25/18 documented as of this encounter
--- OUTSIDE RECORDS SUMMARY | 2022-08-30 08:39 | XMS_ITS | Encounter Summary ---
:1945 Author Organization [facility] Address [address] [place] [address] Care Team Providers Name Role Phone Elsewhere, Pcp Primary Care Provider Unavailable Reason for Referral Outpatient (Routine) - Closed Specialty Diagnoses / Procedures Referred By Contact Refer red To Contact Diagnoses Malignant Neoplasm Of Thyroid (HCC) Loni Wu M.D. [facility] Procedures US Head Neck Soft Tissue [address] [place] [phone] Referral ID Status Reason Start Date Expiration Date Visits Requ ested Visits Authorized [id number] Closed 06/03/2020 06/03/2021 1 1 Reason for Visit Outpatient (Routine) - Closed Specialty Diagnoses / Procedures Referred By Contact Refer red To Contact Diagnoses Malignant Neoplasm Of Thyroid (HCC) Loni Wu M.D. [facility] Procedures US Head Neck Soft Tissue [address] [place] [phone] Referral ID Status Reason Start Date Expiration Date Visits Requ ested Visits Authorized [id number] Closed 06/03/2020 06/03/2021 1 1 Encounter Details Date Type Department Care Team Description 03/10/2021 Hospital Encounter Department of Loni Wu Neoplasm Of Radiology, Jethro Love M.D. Thyroid (HCC) [facility], in [address] [place], [place] [address] [facility] [address] [place], [place] [phone] (Work) [phone] Social History Tobacco Use Types Packs/Day Years [...] More than 4 times per year 10/15/2019 pentecostalism services? Do you belong to any clubs [...] Natasha Mullins APRN, Radha.N.P., M.S.N. [address] [place] [address] [phone] (Wo rk) 10/11/2022 Ancillary Procedure Cardiovascular Disease Natasha Cramer APRN, Radha.N.P., M.S.N. [address] [place] [address] [phone] (Wo rk) 10/11/2022 Appointment Cardiovascular Disease Natasha Mullins APRN, C.N.P., M.S.N. [address] [place] [address] [phone] (Wo rk) 10/12/2022 Office Visit Cardiovascular Disease Natasha Mullins APRN, Radha.N.P., M.S.N. [address] [place] [phone] (Wo rk) documented as of this [...] significant interval change Authorizing Provider Result Manuel Wu M.D. [facility] PROCEDURES documented in this encounter Visit Diagnoses Diagnosis Malignant Neoplasm Of Thyroid (HCC) documented in this encounter Care Teams Furniture Builder Relationship Specialty Start Date End Date Elsewhere, Pcp PCP - General Family Medicine 12/12/18 documented as of this encounter
--- OUTSIDE RECORDS SUMMARY | 2022-08-30 08:39 | XMS_ITS | Encounter Summary ---
:1945 Author Organization [facility] Address [address] [place] [address] Care Team Providers Name Role Phone Elsewhere, Pcp Primary Care Provider Unavailable Reason for Visit Reason Comments Consult Appointment Request (Routine) - Closed Specialty Diagnoses / Referred By Contact Referred To Procedures Contact Breast, Endocrine, Diagnoses Hernia Inguinal Metabolic, and Gastrointestinal Surgery Referral ID Status Reason Start Date Expiration Date Visits Requ ested Visits Authorized [id number] Closed 12/30/2020 12/30/2021 1 1 Encounter Details Date Type Department Care Team Description 01/05/2021 Comprehensive Visit Division of Trauma Gigi Quiroga H ernia Inguinal Left Critical Care and Lupillo, Ph.D. (Primary Dx) General Surgery in [address] [place], [place] [address] [facility] [address] [place], [place] [phone] (Work) [phone] Social History Tobacco Use Types Packs/Day Years [...] of CAD with drug-eluting stent placement in 2015,CHF, ischemic cardiomyopathy, HTN, HLD, thyroid cancer status [...] complications from anesthesia. We discussed that at [facility] there is a full team incorporated into [...] Juan F Mccurdy D.O. General Surgery PGY-1 ITUTION LIBRARIAN Associated attestation - Gigi Quiroga M.D., Ph.D. - 01/05/2021 5:41 PM INSTITUTION LIBRARIAN I have discussed the care of Mr. Khanna with the resident/PLC ENGINEER-PA team. Please see the team's documentation from [...] Medicine Natasha Mullins APRN, C.N.[place]., M.S.N. [address] [place] [address] [phone] (Joanie velázquez) 10/11/2022 Ancillary Procedure Cardiovascular Disease Natasha Cramer APRN, Radha.N.P., M.S.N. [address] [place] [address] [phone] (Joanie velázquez) 10/11/2022 Appointment Cardiovascular Disease Natasha Mullins APRN, Radha.N.P., M.S.N. [address] [place] [address] [phone] (Joanie velázquez) 10/12/2022 Office Visit Cardiovascular Disease Natasha Mullins APRN, C.N.P., M.S.N. [address] [place] [address] [phone] (Wo rk) documented as of this encounter Visit Diagnoses Diagnosis Hernia Inguinal Left - Primary documented in this encounter Care Teams Repeat Photocomposing Machine Operator Relationship Specialty Start Date End Date Elsewhere, Pcp PCP - General Family Medicine 10/25/18 documented as of this encounter
--- OUTSIDE RECORDS SUMMARY | 2022-08-30 08:39 | XMS_ITS | Encounter Summary ---
:[address] [facility] Address [address] [place] [address] Care Team Providers Name Role Phone Elsewhere, Pcp Primary Care Provider Unavailable Reason for Referral Outpatient (Routine) - Closed Specialty Diagnoses / Procedures Referred By Contact Refer red To Contact Steven Trotter M.D. [facility] [address] [place] [phone] Referral ID Status Reason Start Date Expiration Date Visits Requ ested Visits Authorized [id number] Closed 01/16/2021 01/16/2022 1 1 OLL ACCOUNTANT Encounter Details Date Type Department Care Team Description 01/16/2021 Hospital Encounter [facility] OR Gigi Quiroga, [address] [place] [address] Lupillo, Ph.D. [place], [place] [phone] [phone] [place] [address] [place] [phone] Social History Tobacco Use Types Packs/Day Years [...] Pressure 165/100 01/16/2021 4:00 PM okay to ECHO baugh Dr PAYROLL ACCOUNTANT Merrek Pulse 100 01/16/2021 4:00 PM PAYROLL ACCOUNTANT Temperature 36.5 ??C (97.7 ??F) 01/16/2021 4:03 PM PAYROLL ACCOUNTANT Respiratory Rate 15 01/16/2021 11:00 AM PAYROLL ACCOUNTANT Oxygen Saturation 96% 01/16/2021 4:00 PM PAYROLL ACCOUNTANT Inhaled Oxygen - - Concentration Weight 73.4 kg (161 lb 13.1 01/16/2021 7:17 AM oz) PAYROLL ACCOUNTANT Height 173.3 cm (5' 8.23) 01/16/2021 7:17 AM PAYROLL ACCOUNTANT Body Mass Index 24.44 01/16/2021 7:17 AM PAYROLL ACCOUNTANT documented in this encounter Medications at Time [...] 1 tablet (40 mg 90 tablet 3 10/15/2020/01/2021 (PRINIVIL,ZESTRIL) 40 mg total) by mouth tablet [...] Has a good understanding of planned procedure OLL ACCOUNTANT documented in this encounter OR Notes Op Note - Katty Clarke M.D. - 01/16/2021 8:35 AM CST FULL OP NOTE Procedure(s) (LRB): Repair Hernia Inguinal With Mesh (Left) Surgeon(s) and Role: * Katty Clarke M.D. - Primary * Steven Trotter M.D. - Cement Finisher Helper Anesthesia Type General Pre-operative Diagnosis Hernia Inguinal Left Post-operative Diagnosis Hernia Inguinal Left, both direct and indirect components A first dyer actively participated and was necessary for one [...] Implant Name Type Inv. Item Serial No. Personnel Consultant Lot No. LRB No. Used Action [facility] ROHAN FAITH POLYPRP KNIT 6X6 - [id number] Mesh or Patch [facility] PRL FAITH POLYPRP KNIT 6X6 Ethicon QGBCQA Left 1 Implanted Steven Trotter M.D. OLL ACCOUNTANT Brief Op Note - Steven Trotter M.D. - 01/16/2021 8:35 AM CST BRIEF OP NOTE Procedure(s) (LRB): Repair Hernia Inguinal With Mesh (Left) Surgeon(s) and Role: * Katty Clarke M.D. - Primary * Steven Trotter M.D. - Cement Finisher Helper Anesthesia Type General Pre-operative Diagnosis Hernia Inguinal Left Post-operative Diagnosis Hernia Inguinal Left Findings Direct inguinal hernia, no contents within the sac. Open jordy repair with mesh. Complications None Specimens None Drains None Estimated Blood Loss 20 mL Implants Implant Name Type Inv. Item Serial No. Personnel Consultant Lot No. LRB No. Used Action [facility] PRL FAITH POLYPRP KNIT 6X6 - [id number] Mesh or Patch [facility] PRL FAITH POLYPRP KNIT 6X6 [employer]icon QGBCQA Left 1 Implanted Steven Trotter M.D. OLL ACCOUNTANT documented in this encounter Plan of Treatment Upcoming Encounters Date Type Specialty Care Team Description 10/11/2022 Appointment Laboratory Medicine Natasha Mullins APRN, Radha.N.P., M.S.N. [address] [place] [address] [phone] (Joanie velázquez) 10/11/2022 Ancillary Procedure Cardiovascular Disease Natasha Cramer APRN, C.N.P., M.S.N. [address] [place] [phone] (Joanie rk) 10/11/2022 Appointment Cardiovascular Disease Natasha Mullins APRN, C.N.P., M.S.N. [address] [place] [address] [phone] (Joanie rk) 10/12/2022 Office Visit Cardiovascular Disease Natasha Mullins APRN, C.N.P., M.S.N. [address] [place] [phone] (Joanie velázquez) Scheduled Referrals Name Type Priority Associated Diagnoses Order S chedule Trauma Critical Outpatient Referral Routine Expec cristobal: Care and General 01/30/2021 Surgery - Nurse (Approximate ), phone visit Expires: (clinic) 01/17/2024 documented as of this encounter Procedures Procedure Name Priority Date/Time Associated Diagnosis Comme nts ADULT OXYGEN THERAPY Routine 01/16/2021 10:54 AM PAYROLL ACCOUNTANT REPAIR HERNIA INGUINAL 01/16/2021 7:33 AM PAYROLL ACCOUNTANT Hernia I nguinal Left WITH MESH documented in this encounter Visit Diagnoses Not on filedocumented in this encounter Administered Medications Inactive Administered Medications - up to 3 most recent administrations Medication Order MAR Action Action Date Dose Rate Site acetaminophen tablet 1,000 mg Given 01/16/2021 11:38 AM PAYROLL ACCOUNTANT 1,00 0 mg (TYLENOL) 1,000 mg, oral, [...] Recently Administered Medications Times are shown in PAYROLL ACCOUNTANT. Scheduled Medication Order 01/14/2021 01/15/2021 01/16/2021 heparin [...] 1054 documented in this encounter Care Teams Diesel Pile Hammer Operator Relationship Specialty Start Date End Date Elsewhere, Pcp PCP - General Family Medicine 10/25/18 documented as of this encounter
--- OUTSIDE RECORDS SUMMARY | 2022-08-30 08:39 | XMS_ITS | Encounter Summary ---
:1945 Author Organization [facility] Address [address] [place] [address] Care Team Providers Name Role Phone Elsewhere, Pcp Primary Care Provider Unavailable Reason for Referral Outpatient (Routine) - Closed Specialty Diagnoses / Procedures Referred By Contact Refer red To Contact Cardiovascular Disease Lauren Mullins [facility] VY Kaur C.NRenetta, M.S.N. [address] [place] [address] Referral ID Status Reason Start Date Expiration Date Visits Requ ested Visits Authorized [id number] Closed 10/15/2020 10/15/2021 1 1 utpatient (Routine) - Closed Specialty Diagnoses / Procedures Referred By Contact Refer red To Contact Diagnoses Chronic Systolic (Congestive) Heart Failure (HCC) Natasha Mullins [facility] Procedures Echo Transthoracic (TTE) Danny MCCLELLANNRenetta, M.S.N. [address] [place] [phone] Referral ID Status Reason Start Date Expiration Date Visits Requ ested Visits Authorized [id number] Closed 10/15/2020 10/15/2021 1 1 utpatient (Routine) - Closed Specialty Diagnoses / Procedures Referred By Contact Refer red To Contact Diagnoses Chronic Systolic (Congestive) [facility] 12 Lead Justin MCCLELLAN, M.S.N. [address] [place] [phone] Referral ID Status Reason Start Date Expiration Date Visits Requ ested Visits Authorized [id number] Closed 10/15/2020 10/15/2021 1 1 IGHT KNIFE MACHINE CUTTER Reason for Visit Outpatient (Routine) - Closed Specialty Diagnoses / Procedures Referred By Contact Refer red To Contact Cardiovascular Disease Chai Fagan [facility] VY Kaur C.N.P., M.S.N. [address] [place] [phone] Referral ID Status Reason Start Date Expiration Date Visits Requ ested Visits Authorized [id number] Closed 10/15/2019 10/14/2020 1 1 Encounter Details Date Type Department Care Team Description 10/15/2020 Office Visit Department of Chai Fagan, Cardiomyop athgenaro Ischemic (Primary Dx); Cardiovascular VY Kaur, Chronic Syst olic (Congestive) Heart Failure (HCC); Medicine in [place], CAdal, M .S.N. Atherosclerotic Heart Disease Of [place] Coronary Artery Without Angina Pectoris; [place] [address] [place] [address] Hyperlipidemia [address] [place] [phone] Social History Tobacco Use Types Packs/Day Years [...] Comments Blood Pressure 102/63 10/15/2020 12:45 PM STRAIGHT KNIFE MACHINE CUTTER Pulse 69 10/15/2020 12:45 PM STRAIGHT KNIFE MACHINE CUTTER Temperature - - Respiratory Rate - - Oxygen Saturation - - Inhaled Oxygen Concentration - - Weight 76.3 kg (168 lb 3.4 oz) 10/15/2020 12:43 PM STRAIGHT KNIFE MACHINE CUTTER Height 175.3 cm (5' 9.02) 10/15/2020 12:43 PM STRAIGHT KNIFE MACHINE CUTTER Body Mass Index 24.83 10/15/2020 12:43 PM STRAIGHT KNIFE MACHINE CUTTER documented in this encounter Progress Notes Natasha Mullins APRN, Radha.N.Franklin., M.S.N. - 10/15/2020 1:00 PM CST Heart failure Established Note Referring Provider: Natasha Mullins APRN, Radha.N.P., M.S.N. CHIEF COMPLAINT/REASON FOR CONSULT Annual follow [...] 15, 2020. He continued to do well [place] heart [employer] functional class 1 to 2 with a stable ejection fraction 51%. He was euvolemic. Since last visit patient met with Hematology. [place] to be doing well from a lymphoma [...] reaction to iodinated contrast given at [facility] in 2006. Visi 320 given during [...] Systolic (Congestive) Heart Failure (HCC) Patient is [place] heart [employer] functional class 1 to 2. Euvolemic. Does not require diuretic. #3 Atherosclerotic Heart Disease Of [place] Coronary Artery Without Angina Pectoris Asymptomatic. Recommended [...] age and risk for poor outcomes with CELESTINA. At his age, he has an 8 times higher risk of hospitalization than 18 to 53-ifar-ulcm and a 220 times higher risk of . He also has multiple comorbidities, which were outlined for him, that increase his risk for poor outcome. He should continue strict adherence to COVID-19 prevention strategies. Follow-up one year. Natasha Fagan APRN, C.N.P., M.S.N. 10/15/20 IGHT KNIFE MACHINE CUTTER documented in this encounter Plan of Treatment Upcoming Encounters Date Type Specialty Care Team Description 10/11/2022 Appointment Laboratory Medicine Natasha Mullins APRN, C.NRenetta, M.S.N. [address] [place] [phone] (Joanie velázquez) 10/11/2022 Ancillary Procedure Cardiovascular Disease Natasha Cramer APRN, C.NLibrado., M.S.N. [address] [place] [address] [phone] (Joanie velázquez) 10/11/2022 Appointment Cardiovascular Disease Natasha Mullins APRN, C.NRenetta, M.S.N. [address] [place] [phone] (Joanie velázquez) 10/12/2022 Office Visit Cardiovascular Disease Natsaha uMllins APRN, C.NRenetta, M.S.N. [address] [place] [phone] (Joanie velázquez) Scheduled Referrals Name Type Priority Associated Order Schedule Diagnoses Cardiovascular Disease Outpatient Referral Routine Expected: office visit (clinic) 2020 (Approximate), Expires: 10/15/2022 documented as of this encounter Results ECG 12 Lead (10/16/2021 10:47 AM STRAIGHT KNIFE MACHINE CUTTER) P athologist Signature Ventricular Rate 69 BPM MUSE ECG/Min CA Interval 192 ms MUSE QRSD Interval 156 ms MUSE QT Interval 416 ms MUSE QTC Interval 445 ms MUSE P [place] 44 degrees MUSE R [place] -67 degrees MUSE T Wave [place] 36 degrees MUSE Specimen Anatomical Collection Method Collection Time Receive d Time (Source) Location / / Volume Laterality 10/16/2021 10:47 10/16/2021 AM STRAIGHT KNIFE MACHINE CUTTER 10:52 AM STRAIGHT KNIFE MACHINE CUTTER Impressions MUSE - 10/16/2021 10:52 AM STRAIGHT KNIFE MACHINE CUTTER Sinus rhythm Premature ventricular complexes Right bundle [...] Paula Rylan MCCLELLAN, C.N.P., M.S.N. ECG ORDERA [facility] Performing Organization Address City/State/ZIP Code Phon e Number MUSE MUSE NA (TTE) 2D ECHO DOPPLER COLOR (10/16/2021 10:35 AM STRAIGHT KNIFE MACHINE CUTTER) Patholo gist Method Time Signature Ejection Fraction [...] / / Volume Laterality 10/16/2021 9:03 AM STRAIGHT KNIFE MACHINE CUTTER Impressions 10/16/2021 10:58 AM STRAIGHT KNIFE MACHINE CUTTER LEFT VENTRICLE: ??Normal left ventricular chamber size. [...] effusion. For the complete report, see the [employer] Documents. Narrative 10/16/2021 10:58 AM STRAIGHT KNIFE MACHINE CUTTER For the complete report, see the [employer] Documents. Final Impressions 1. Normal left ventricular [...] original. For the complete report, see the [employer] Documents. Final Impressions 1. Normal left ventricular [...] complete report, see the Order-L evel Documents. Radha Eastman APRN.N.Franklin., M.S.N. CV ECHO CA OCEDURES Lipid Panel (10/16/2021 8:02 AM STRAIGHT KNIFE MACHINE CUTTER) athologist Signature Cholesterol, 196 mg/dL 10/16/2021 DTL Total 9:09 AM STRAIGHT KNIFE MACHINE CUTTER Comment: ----REFERENCE VALUE---- Desirable: < 200 Borderline high: 200 - 239 High: > or = 240 Triglycerides 59 mg/dL 10/16/2021 9:09 AM STRAIGHT KNIFE MACHINE CUTTER DTL Comment: ----REFERENCE VALUE---- Normal: <150 Borderline high: 150-199 High: 200-499 Very high: > or =500 Cholesterol, HDL, S 75 >=40 mg/dL 10/16/2021 9:09 AM STRAIGHT KNIFE MACHINE CUTTER DTL Calculated LDL 109 mg/dL 10/16/2021 9:09 AM STRAIGHT KNIFE MACHINE CUTTER DT L Comment: ----REFERENCE VALUE---- Desirable: <100 mg/dL Above Desirable: 100-129 mg/dL Borderline High: 130-159 mg/dL High: 160-189 mg/dL Very High: >=190 mg/dL Cholesterol, Non-HDL, Calculated 121 mg/dL 021 9:09 AM STRAIGHT KNIFE MACHINE CUTTER DTL Comment: ----REFERENCE VALUE---- Desirable: <130 Above Desirable: 130-159 Borderline high: 160-189 High: 190-219 Very high: > or =220 Specimen Anatomical Collection Method Collection Time Receive d Time (Source) Location / / Volume Laterality Blood (Blood, 10/16/2021 8:02 AM 10/16/20 8:49 Venous) STRAIGHT KNIFE MACHINE CUTTER AM STRAIGHT KNIFE MACHINE CUTTER Radha Eastman APRN.N.P., M.S.N. LAB BLOOD ADD-ON Performing Organization Address City/State/ZIP Code Phon e Number [facility] - [address] [place], [place] [address] [facility] [place] [address] Laboratories-[facility] [address] CBC without Differential (10/16/2021 8:02 AM STRAIGHT KNIFE MACHINE CUTTER) athologist Signature Hemoglobin 14.1 13.2 - 10/16/2021 DTL 16.6 g/dL 8:47 AM STRAIGHT KNIFE MACHINE CUTTER Hematocrit 42.2 38.3 - 10/16/2021 DTL 48.6 % 8:47 AM STRAIGHT KNIFE MACHINE CUTTER Erythrocytes 4.58 4.35 - 10/16/2021 DTL 5.65 8:47 AM STRAIGHT KNIFE MACHINE CUTTER x10(12)/L MCV 92.1 78.2 - 10/16/2021 DTL 97.9 fL 8:47 AM STRAIGHT KNIFE MACHINE CUTTER RBC Distrib Width 13.0 11.8 - 10/16/2021 DTL 14.5 % 8:47 AM STRAIGHT KNIFE MACHINE CUTTER Platelet Count 232 135 - 317 10/16/2021 DTL x10(9)/L 8:47 AM STRAIGHT KNIFE MACHINE CUTTER Leukocytes 5.4 3.4 - 9.6 10/16/2021 DTL x10(9)/L 8:47 AM STRAIGHT KNIFE MACHINE CUTTER Specimen Anatomical Collection Method Collection Time Receive d Time (Source) Location / / Volume Laterality Blood (Blood, 10/16/2021 8:02 AM 10/16/20 21 8:34 Venous) STRAIGHT KNIFE MACHINE CUTTER AM STRAIGHT KNIFE MACHINE CUTTER Radha Eastman APRN.N.Franklin., M.S.N. LAB BLOOD ADD-ON Performing Organization Address City/[facility] Phon e Number [facility] - [address] AST (Aspartate Aminotransferase) (10/16/2021 8:02 AM STRAIGHT KNIFE MACHINE CUTTER) [facility] Method Time Signature Aspartate 23 8 - 48 10/16/2021 DTL Aminotransferase U/L 9:09 AM STRAIGHT KNIFE MACHINE CUTTER (AST), S Specimen Anatomical Collection Method Collection Time Receive d Time (Source) Location / / Volume Laterality Blood (Blood, 10/16/2021 8:02 AM 10/16/20 21 8:49 Venous) STRAIGHT KNIFE MACHINE CUTTER AM STRAIGHT KNIFE MACHINE CUTTER Natasha Fagan APRN, Radha.N.P., M.S.N. LAB BLOOD ADD-ON Performing Organization Address City/[facility] Phon e Number [facility] - [address] (ABNORMAL) Basic Metabolic Panel (10/16/2021 8:02 AM STRAIGHT KNIFE MACHINE CUTTER) P athologist Signature Potassium, S 4.4 3.6 - 5.2 10/16/2021 DTL mmol/L 9:09 AM STRAIGHT KNIFE MACHINE CUTTER Sodium, S 131 (L) 135 - 145 10/16/2021 DTL mmol/L 9:09 AM STRAIGHT KNIFE MACHINE CUTTER Chloride, S 95 (L) 98 - 107 10/16/2021 DTL mmol/L 9:09 AM STRAIGHT KNIFE MACHINE CUTTER Bicarbonate, S 25 22 - 29 10/16/2021 DTL mmol/L 9:09 AM STRAIGHT KNIFE MACHINE CUTTER Anion Gap 11 7 - 15 10/16/2021 DTL 9:09 AM STRAIGHT KNIFE MACHINE CUTTER BUN (Blood Urea 18 8 - 24 10/16/2021 DTL Nitrogen), S mg/dL 9:09 AM STRAIGHT KNIFE MACHINE CUTTER Creatinine 0.83 0.74 - 10/16/2021 DTL 1.35 mg/dL 9:09 AM STRAIGHT KNIFE MACHINE CUTTER eGFR-Non 84 >=60 10/16/2021 DTL Black/ mL/min/BSA 9:09 AM STRAIGHT KNIFE MACHINE CUTTER [place] Comment: ----ADDITIONAL INFORMATION---- Estimated GFR calculated using the 2009 CKD_EPI creatinine equation. eGFR-Black/ >90 >=60 mL/min/BSA 2020 9:09 AM STRAIGHT KNIFE MACHINE CUTTER DTL Comment: ----ADDITIONAL INFORMATION---- Estimated GFR calculated using the 2009 CKD_EPI creatinine equation. Calcium, Total, S 8.9 8.8 - 10.2 mg/dL 10/16/2021 9:09 AM STRAIGHT KNIFE MACHINE CUTTER DTL Glucose, S 102 70 - 140 mg/dL 10/16/2021 9:09 AM STRAIGHT KNIFE MACHINE CUTTER D TL Specimen Anatomical Collection Method Collection Time Receive d Time (Source) Location / / Volume Laterality Blood (Blood, 10/16/2021 8:02 AM 10/16/20 8:49 Venous) STRAIGHT KNIFE MACHINE CUTTER AM STRAIGHT KNIFE MACHINE CUTTER Natasha Fagan APRN C.N.P., M.S.N. LAB BLOOD ADD-ON Performing Organization Address City/State/ZIP Code Phon e Number [facility] - [address] [place], [place] [address] [facility] [place] [address] Laboratories-[facility] [address] documented in this encounter Visit Diagnoses Diagnosis Cardiomyopathy Ischemic - Primary Chronic Systolic (Congestive) Heart Fail ure (HCC) Atherosclerotic Heart Disease Of [place] Coronary Artery Without Angina Pectoris Hyperlipidemia Chronic Systolic (Congestive) Heart Fail ure (HCC) documented in this encounter Care Teams Maintenance Pipefitter Relationship Specialty Start Date End Date Elsewhere, Pcp PCP - General Family Medicine 10/25/18 documented as of this encounter
--- OUTSIDE RECORDS SUMMARY | 2022-08-30 08:39 | XMS_ITS | Encounter Summary ---
:1945 Author Organization [facility] Address [address] [place] [address] Care Team Providers Name Role Phone Elsewhere, Pcp Primary Care Provider Unavailable Encounter Details Date Type Department Care Team Description 01/16/2021 Surgery RST ROMB MAIN OR Katty Clarke, Repair Hernia Inguinal [address] [facility] [place]ía [place] [phone] [place] [address] [place] [phone] Social History Tobacco Use Types Packs/Day Years [...] Comments Blood Pressure 112/75 01/16/2021 11:00 AM PRESS OPERATOR CARBON BLOCKS Pulse 85 01/16/2021 11:15 AM PRESS OPERATOR CARBON BLOCKS Temperature 36.7 ??C (98.1 ??F) 01/16/2021 10:54 AM PRESS OPERATOR CARBON BLOCKS Respiratory Rate 15 01/16/2021 11:00 AM PRESS OPERATOR CARBON BLOCKS Oxygen Saturation 90% 01/16/2021 11:15 AM PRESS OPERATOR CARBON BLOCKS Inhaled Oxygen Concentration - - Weight 73.4 kg (161 lb 13.1 oz) 01/16/2021 7:17 AM PRESS OPERATOR CARBON BLOCKS Height 173.3 cm (5' 8.23) 01/16/2021 7:17 AM PRESS OPERATOR CARBON BLOCKS Body Mass Index 24.44 01/16/2021 7:17 AM PRESS OPERATOR CARBON BLOCKS documented in this encounter Medications at Time [...] as of this encounter Nursing Notes Orville Hankins, RCarmineN. - 01/16/2021 7:58 AM CST Family here with patient. Denies chest pain or shortness of breath. Denies any metal on body. Intraoperative routine discussed with no questions from the patient. Complaints of discomfort, 4/10 groin/abdomen. Has a good understanding of planned procedure S OPERATOR CARBON BLOCKS documented in this encounter OR Notes Op Note - Katty Clarke M.D. - 01/16/2021 8:35 AM CST FULL OP NOTE Procedure(s) (LRB): Repair Hernia Inguinal With Mesh (Left) Surgeon(s) and Role: * Katty Clarke M.D. - Primary * Steven Trotter M.D. - Skilled Labor Anesthesia Type General Pre-operative Diagnosis Hernia Inguinal Left Post-operative Diagnosis Hernia Inguinal Left, both direct and indirect components A digital marketing assistant actively participated and was necessary for [...] Implant Name Type Inv. Item Serial No. Production Posting Clerk Lot No. LRB No. Used Action MSH PRL FAITH POLYPRP KNIT 6X6 - [id number] Mesh or Patch MSH PRL FAITH POLYPRP KNIT 6X6 Ethicon QGBCQA Left 1 Implanted Steven Trotter M.D. S OPERATOR CARBON BLOCKS Brief Op Note - Steven Trotter M.D. - 01/16/2021 8:35 AM CST BRIEF OP NOTE Procedure(s) (LRB): Repair Hernia Inguinal With Mesh (Left) Surgeon(s) and Role: * Katty Clarke M.D. - Primary * Steven Trotter M.D. - Skilled Labor Anesthesia Type General Pre-operative Diagnosis Hernia Inguinal Left Post-operative Diagnosis Hernia Inguinal Left Findings Direct inguinal hernia, no contents within the sac. Open jordy repair with mesh. Complications None Specimens None Drains None Estimated Blood Loss 20 mL Implants Implant Name Type Inv. Item Serial No. Production Posting Clerk Lot No. LRB No. Used Action MSH PRL FAITH POLYPRP KNIT 6X6 - [id number] Mesh or Patch MSH PRL FAITH POLYPRP KNIT 6X6 Ethicon QGBCQA Left 1 Implanted Steven Trotter M.D. S OPERATOR CARBON BLOCKS documented in this encounter Plan of Treatment Upcoming Encounters Date Type Specialty Care Team Description 10/11/2022 Appointment Laboratory Medicine Natasha Mullins APRN, Radha.N.P., M.S.N. [address] [place] [phone] (Wo rk) 10/11/2022 Ancillary Procedure Cardiovascular Disease Natasha Cramer APRN, C.N.P., M.S.N. [address] [place] [phone] (Wo rk) 10/11/2022 Appointment Cardiovascular Disease Natasha Mullins APRN, Radha.N.P., M.S.N. [address] [place] [phone] (Wo rk) 10/12/2022 Office Visit Cardiovascular Disease Natasha Mullins APRN, C.N.P., M.S.N. [address] [place] [phone] (Wo rk) Scheduled Referrals Name Type Priority Associated Diagnoses Order S chedule Trauma Critical Outpatient Referral Routine Expec cristobal: Care and General 01/30/2021 Surgery - Nurse (Approximate ), phone visit Expires: (clinic) 01/17/2024 documented as of this encounter Procedures Procedure Name Priority Date/Time Associated Diagnosis Comme nts ADULT OXYGEN THERAPY Routine 01/16/2021 10:54 AM PRESS OPERATOR CARBON BLOCKS REPAIR HERNIA INGUINAL 01/16/2021 7:33 AM PRESS OPERATOR CARBON BLOCKS Hernia I nguinal Left WITH MESH documented in this encounter Visit Diagnoses Diagnosis Hernia Inguinal Left documented in this encounter Administered Medications Inactive Administered Medications - up to 3 most recent administrations Medication Order MAR Action Action Date Dose Rate Site acetaminophen tablet 1,000 mg Given 01/16/2021 11:38 AM PRESS OPERATOR CARBON BLOCKS 1,00 0 mg (TYLENOL) 1,000 mg, oral, Every 6 hours PRN, mild pain or score 1-3 of 10, Starting on Tue01/16/21 at 1054 bupivacaine-EPINEPHrine (PF) 0.25 Given 01/16/2021 10:25 AM PRESS OPERATOR CARBON BLOCKS 60 mL Left Groin %-1:200,000 injection (MARCAINE [...] Recently Administered Medications Times are shown in PRESS OPERATOR CARBON BLOCKS. Scheduled Medication Order 01/14/2021 01/15/2021 01/16/2021 heparin [...] 1054 documented in this encounter Care Teams Healthcare Marketer Relationship Specialty Start Date End Date Elsewhere, Pcp PCP - General Family Medicine 10/25/18 documented as of this encounter
--- OUTSIDE RECORDS SUMMARY | 2022-08-30 08:39 | XMS_ITS | Encounter Summary ---
:1945 Author Organization [facility] Address [address] [place] [phone] Care Team Providers Name Role Phone Elsewhere, Pcp Primary Care Provider Unavailable Reason for Referral Outpatient (Routine) - Closed Specialty Diagnoses / Procedures Referred By Contact Refer red To Contact Diagnoses Chronic Systolic (Congestive) Heart Failure (HCC) [facility] Transthoracic (TTE) Justin MCCLELLAN, M.S.N. [address] [place] [phone] Referral ID Status Reason Start Date Expiration Date Visits Requ ested Visits Authorized [id number] Closed 10/15/2019 10/14/2020 1 1 ENTICE COOK Reason for Visit Outpatient (Routine) - Closed Specialty Diagnoses / Procedures Referred By Contact Refer red To Contact Diagnoses Chronic Systolic (Congestive) Heart Failure (HCC) Cardiomyopathy [facility]schemic [facility] Transthoracic (TTE) Danny MCCLELLANNRenetta, M.S.N. [address] [place] [phone] Referral ID Status Reason Start Date Expiration Date Visits Requ ested Visits Authorized [id number] Closed 10/15/2019 10/14/2020 1 1 Encounter Details Date Type Department Care Team Description 10/15/2020 Hospital Department of Chai Chronic Systol ic (Congestive) Heart Failure (HCC); Encounter Cardiovascular Natasha Fagan, Nicop athy Ischemic Diseases in [facility], C.N.P.[place], [place] M.S.N. 200 [address] [place] [phone] Social History Tobacco Use Types Packs/Day Years [...] Medicine Natasha Mullins APRN, C.N.P., M.S.N. [address] [place] [phone] (Wo rk) 10/11/2022 Ancillary Procedure Cardiovascular Disease Natasha Cramer APRN, C.N.P., M.S.N. [address] [place] [phone] (Wo rk) 10/11/2022 Appointment Cardiovascular Disease Natasha Mullins APRN, C.NRenetta, M.S.N. [address] [place] [phone] (Wo rk) 10/12/2022 Office Visit Cardiovascular Disease Natasha Mullins APRN, Radha.NRenetta, M.S.N. [address] [place] [phone] (Wo rk) documented as of this encounter Procedures Procedure Name Priority Date/Time Associated Diagnosis Comme nts (TTE) 2D ECHO Routine 10/15/2020 9:58 AM Chronic Systolic Resu lts for this DOPPLER COLOR APPRENTICE COOK (Congestive) Heart procedur e are in Failure (HCC) the results Cardiomyopathy section. Ischemic documented in this encounter Results (TTE) 2D ECHO DOPPLER COLOR (10/15/2020 9:58 AM APPRENTICE COOK) Analysis Performed At Patho logist Time Signature [...] / / Volume Laterality 10/15/2020 8:39 AM APPRENTICE COOK Impressions 10/15/2020 10:47 AM APPRENTICE COOK Last full echocardiogram performed 10/15/2019. ??Echocardiogram performed [...] effusion. For the complete report, see the [employer] Documents. Narrative 10/15/2020 10:47 AM APPRENTICE COOK For the complete report, see the [employer] Documents. Final Impressions 1. Borderline enlarged left [...] see the Order-L evel Documents. Natasha Fagan APRN C.N.P., M.S.N. CV ECHO MT OCEDURES documented in this encounter Visit Diagnoses Diagnosis Chronic Systolic (Congestive) Heart Fail ure (HCC) Cardiomyopathy Ischemic documented in this encounter Care Teams Battery Container Finishing Hand Relationship Specialty Start Date End Date Elsewhere, Pcp PCP - General Family Medicine 10/25/18 documented as of this encounter
--- OUTSIDE RECORDS SUMMARY | 2022-08-30 08:39 | XMS_ITS | Encounter Summary ---
:1945 Author Organization [facility] Address [address] [place] [address] Care Team Providers Name Role Phone Elsewhere, Pcp Primary Care Provider Unavailable Encounter Details Date Type Department Care Team Description 10/15/2020 Hospital Encounter Department of Justus Mullins Systolic (Congestive) Heart Failure (HCC); Laboratory VY Kaur, Cardiomyopathy Ischemic Medicine and C.N.P., M.S.N. Pathology, [place] [address] [place] [address], in [place] [phone] [place] [phone] [place] [address] (Work) [place], [place] [phone] [phone] (Fax) [phone] Social History Tobacco Use Types Packs/Day Years [...] or relatives? How often do you attend nondenominational or More than 4 times per year 10/15/2019 muslim services? Do you belong to any clubs or Yes 10/15/2019 organizations such as nondenominational groups, unions, fraternal or athletic groups, or [...] Natasha Mullins APRN, C.N.P., M.S.N. [address] [place] [phone] (Joanie velázquez) 10/11/2022 Ancillary Procedure Cardiovascular Disease Natasha Cramer APRN, Radha.N.P., M.S.N. [address] [place] [phone] (Joanie velázquez) 10/11/2022 Appointment Cardiovascular Disease Natasha Mullins APRN, C.NRenetta, M.S.N. [address] [place] [phone] (Wo rk) 10/12/2022 Office Visit Cardiovascular Disease Natasha Mullins APRN, C.NRenetta, M.S.N. [address] [place] [phone] (Wo rk) documented as of this encounter Procedures Procedure Name Priority Date/Time Associated Comments Diagnosis LIPID PANEL, S Routine 10/15/2020 7:59 Chronic Systolic Result s for this AM CRUTCHER HELPER (Congestive) Heart procedure are in Failure (HCC) the results Cardiomyopathy section. Ischemic CBC WITHOUT Routine 10/15/2020 7:59 Chronic Systolic Results for this DIFFERENTIAL, B AM CRUTCHER HELPER (Congestive) Heart proced ure are in Failure (HCC) the results Cardiomyopathy section. Ischemic ALANINE AMINOTRANSFERASE Routine 10/15/2020 7:59 Chronic Systo lic Results for this (ALT), S/P AM CRUTCHER HELPER (Congestive) Heart procedure are in Failure (HCC) the results Cardiomyopathy section. Ischemic BASIC METABOLIC PANEL, Routine 10/15/2020 7:59 Chronic Systoli c Results for this S/P AM CRUTCHER HELPER (Congestive) Heart procedure are in Failure (HCC) the results Cardiomyopathy section. Ischemic documented in this encounter Results Lipid Panel (10/15/2020 7:59 AM CRUTCHER HELPER) athologist Signature Cholesterol, 198 mg/dL 10/15/2020 DTL Total 9:14 AM CRUTCHER HELPER Comment: ----REFERENCE VALUE---- Desirable: < 200 Borderline high: 200 - 239 High: > or = 240 Triglycerides 56 mg/dL 10/15/2020 9:14 AM CRUTCHER HELPER DTL Comment: ----REFERENCE VALUE---- Normal: <150 Borderline high: 150-199 High: 200-499 Very high: > or =500 Cholesterol, HDL, S 75 >=40 mg/dL 10/15/2020 9:14 AM CRUTCHER HELPER DTL Calculated LDL 112 mg/dL 10/15/2020 9:14 AM CRUTCHER HELPER DT L Comment: ----REFERENCE VALUE---- Desirable: <100 Above Desirable: 100-129 Borderline high: 130-159 High: 160-189 Very high: > or =190 Cholesterol, Non-HDL, Calculated 123 mg/dL 020 9:14 AM CRUTCHER HELPER DTL Comment: ----REFERENCE VALUE---- Desirable: <130 Above Desirable: 130-159 Borderline high: 160-189 High: 190-219 Very high: > or =220 Specimen Anatomical Collection Method Collection Time Receive d Time (Source) Location / / Volume Laterality Blood (Blood, 10/15/2020 7:59 AM 10/15/20 20 8:52 Venous) CRUTCHER HELPER AM CRUTCHER HELPER Natasha Fagan APRN, Radha.N.P., M.S.N. LAB BLOOD ADD-ON Performing Organization Address City/[facility] Phon e Number [facility] - [address] ALT (Alanine Aminotransferase) (10/15/2020 7:59 AM CRUTCHER HELPER) Patholo gist Method Time Signature Alanine 21 7 - 55 10/15/2020 DTL Aminotransferase U/L 9:14 AM CRUTCHER HELPER (ALT), S Specimen Anatomical Collection Method Collection Time Receive d Time (Source) Location / / Volume Laterality Blood (Blood, 10/15/2020 7:59 AM 10/15/20 20 8:52 Venous) CRUTCHER HELPER AM CRUTCHER HELPER Natasha Fagan APRN, Radha.N.P., M.S.N. LAB BLOOD ADD-ON Performing Organization Address City/[facility] Phon e Number [facility] - [address] CBC without Differential (10/15/2020 7:59 AM CRUTCHER HELPER) P athologist Signature Hemoglobin 13.8 13.2 - 10/15/2020 DTL 16.6 g/dL 8:42 AM CRUTCHER HELPER Hematocrit 41.0 38.3 - 10/15/2020 DTL 48.6 % 8:42 AM CRUTCHER HELPER Erythrocytes 4.43 4.35 - 10/15/2020 DTL 5.65 8:42 AM CRUTCHER HELPER x10(12)/L MCV 92.6 78.2 - 10/15/2020 DTL 97.9 fL 8:42 AM CRUTCHER HELPER RBC Distrib Width 13.2 11.8 - 10/15/2020 DTL 14.5 % 8:42 AM CRUTCHER HELPER Platelet Count 212 135 - 317 10/15/2020 DTL x10(9)/L 8:42 AM CRUTCHER HELPER Leukocytes 5.2 3.4 - 9.6 10/15/2020 DTL x10(9)/L 8:42 AM CRUTCHER HELPER Specimen Anatomical Collection Method Collection Time Receive d Time (Source) Location / / Volume Laterality Blood (Blood, 10/15/2020 7:59 AM 10/15/20 20 8:28 Venous) CRUTCHER HELPER AM CRUTCHER HELPER Natasha Fagan APRN, C.N.P., M.S.N. LAB BLOOD ADD-ON Performing Organization Address City/State/[facility] Code Phon e Number [facility] - [address] [place] [phone] [facility] [place] [address] Laboratories-[facility] 200 [facility] (ABNORMAL) Basic Metabolic Panel (10/15/2020 7:59 AM CRUTCHER HELPER) P athologist Signature Potassium, S 5.0 3.6 - 5.2 10/15/2020 DTL mmol/L 9:11 AM CRUTCHER HELPER Sodium, S 127 (L) 135 - 145 10/15/2020 DTL mmol/L 9:11 AM CRUTCHER HELPER Chloride, S 92 (L) 98 - 107 10/15/2020 DTL mmol/L 9:11 AM CRUTCHER HELPER Bicarbonate, S 27 22 - 29 10/15/2020 DTL mmol/L 9:11 AM CRUTCHER HELPER Anion Gap 8 7 - 15 10/15/2020 DTL 9:11 AM CRUTCHER HELPER BUN (Blood Urea 16 8 - 24 10/15/2020 DTL Nitrogen), S mg/dL 9:11 AM CRUTCHER HELPER Creatinine 0.89 0.74 - 10/15/2020 DTL 1.35 mg/dL 9:11 AM CRUTCHER HELPER eGFR-Non 82 >=60 10/15/2020 DTL Black/ mL/min/BSA 9:11 AM CRUTCHER HELPER [place] Comment: ----ADDITIONAL INFORMATION---- Estimated GFR calculated using the 2009 CKD_EPI creatinine equation. eGFR-Black/ >90 >=60 mL/min/BSA 2019 9:11 AM CRUTCHER HELPER DTL Comment: ----ADDITIONAL INFORMATION---- Estimated GFR calculated using the 2009 CKD_EPI creatinine equation. Calcium, Total, S 9.0 8.8 - 10.2 mg/dL 10/15/2020 9:11 AM CRUTCHER HELPER DTL Glucose, S 105 70 - 140 mg/dL 10/15/2020 9:11 AM CRUTCHER HELPER D TL Specimen Anatomical Collection Method Collection Time Receive d Time (Source) Location / / Volume Laterality Blood (Blood, 10/15/2020 7:59 AM 10/15/20 20 8:50 Venous) CRUTCHER HELPER AM CRUTCHER HELPER Natasha Fagan APRN C.N.P., M.S.N. LAB BLOOD ADD-ON Performing Organization Address City/State/ZIP Code Phon e Number [facility] - [address] [place], [place] [phone] [facility] [place] [address] Laboratories-[facility] [address] documented in this encounter Visit Diagnoses Diagnosis Chronic Systolic (Congestive) Heart Fail ure (HCC) Cardiomyopathy Ischemic documented in this encounter Care Teams Mileage Clerk Relationship Specialty Start Date End Date Elsewhere, Pcp PCP - General Family Medicine 10/25/18 documented as of this encounter
--- OUTSIDE RECORDS SUMMARY | 2022-08-30 08:39 | XMS_ITS | Encounter Summary ---
:1945 Author Organization [facility] Address [address] [place] [address] Care Team Providers Name Role Phone Elsewhere, Pcp Primary Care Provider Unavailable Encounter Details Date Type Department Care Team Description 01/16/2021 Anesthesia Event RST ROMB MAIN OR Dian Palumbo M.D., Ph.D. [address] [place] [phone] [address] [facility] Brandon Rossi M.D. [address] [place] [phone] [place] [phone] Anesthesia Record Procedure Summary [...] 1418 by Left; dermbond; 08/04/21 Elizabeth Dahl, [facility]-Back[facility] (Removed by background R.NAni mueller completion utility); Automated [facility] Job 1418 (Removed by background completion [...] Left; 08/04/21 (Removed Orville Hankins R.N. Ma gx-[id number]-[id number] by background completion d, Sche duling utility); [...] or relatives? How often do you attend pentecostalism or More than 4 times per year 10/15/2019 moravian services? Do you belong to any clubs or Yes 10/15/2019 organizations such as pentecostalism groups, unions, fraternal or athletic groups, or [...] Procedure Summary Date: 01/16/21 Room / Location: [place] [address] / [facility] in [place], [place] Anesthesia Start: 0753 Anesthesia Stop: 1057 Procedure: Repair Hernia Inguinal With Mesh (Left [...] CP, SOB, paresthesia, eye pain or blurriness. NERATOR OPERATOR Anesthesia Procedure Notes - Hayley Killian R.N., [...] Procedure outcome: successful Airway event: no complications NERATOR OPERATOR Anesthesia Preprocedure Evaluation - Brandon Rossi M.D. - 01/16/2021 7:53 AM CST Preprocedure Anesthesia & H&P Assessment Procedure Summary Date/Time: 01/16/21 0815 Procedure: REPAIR HERNIA INGUINAL WITH MESH. (Left ) Diagnosis: Hernia Inguinal Left [K40.90] Pre-op diagnosis: Left inguinal hernia. Location: RM OR [address] 1552 / [facility] in [place], [place] Providers: Gigi Quiroga M.D., Ph.D. Pertinent components of the patient's history including current problem list, medical history, surgical history, family history, social history, medications and allergies were reviewed. Present illnessand pre-op diagnosis were confirmed. The planned surgery / procedure was verified with the patient /legal guardian. The patient's general health condition remains unchanged RELEVANT COMORBID CONDITIONS CV (+) Atherosclerotic Heart Disease Of [place] Coronary Artery Without Angina Pectoris (+) Heart [...] 15, 2020. He continued to do well [place] heart Association functional class 1 to 2 with a stable ejection fraction 51%. He was euvolemic. ?? Since last visit patient met with Hematology. [place] to be doing well from a lymphoma [...] Systolic (Congestive) Heart Failure (HCC) Patient is [place] heart Association functional class 1 to 2. Euvolemic. Does not require diuretic. 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 Recommended [...] with patient /legal guardian or through an interpreter deaf. Risks/Benefits/Alternatives of Blood transfusion discussed with patient / legal guardian, including an opportunity to ask questions and/or decline some or all transfusion therapies. The patient / legalguardian consented to the use of all blood products, as deemed medically necessary Approval to Proceed: approved for anesthesia NERATOR OPERATOR documented in this encounter Plan of Treatment Upcoming Encounters Date Type Specialty Care Team Description 10/11/2022 Appointment Laboratory Medicine Natasha Mullins APRN, C.N.P., M.S.N. [address] [place] [address] [phone] (Joanie velázquez) 10/11/2022 Ancillary Procedure Cardiovascular Disease Natasha Cramer APRN, C.N.P., M.S.N. [address] [place] [phone] (Joanie velázquez) 10/11/2022 Appointment Cardiovascular Disease Natasha Mullins APRN, C.N.P., M.S.N. [address] [place] [address] [phone] (Joanie velázquez) 10/12/2022 Office Visit Cardiovascular Disease Natasha Mullins APRN, C.N.P., M.S.N. [address] [place] [address] [phone] (Joanie velázquez) documented as of this encounter Procedures Procedure Name Priority Date/Time Associated Comments Diagnosis LDA ANE ENDOTRACHEAL Routine 01/16/2021 8:24 AM R esults for this AIRWAY REGENERATOR OPERATOR procedure are i n the results section. documented in this encounter Results LDA ANE ENDOTRACHEAL AIRWAY (01/16/2021 8:24 AM REGENERATOR OPERATOR) Narrative Hayley Killian R.N., CCRN - 01/16 8:24 AM REGENERATOR OPERATOR Hayley Killian R.N., CCRN ? 01/16/2021 ??9:13 [...] ePHEDrine (PF) injection Given 01/16/2021 8:49 AM REGENERATOR OPERATOR 5 mg intravenous, As needed, Starting on Tue01/16/21 at 0810, Anesthesia Intra-op Given 01/16/2021 8:43 AM REGENERATOR OPERATOR 5 mg Given 01/16/2021 8:31 AM REGENERATOR OPERATOR 5 mg fentaNYL injection (SUBLIMAZE) Given 01/16/2021 10:37 AM REGENERATOR OPERATOR 25 mcg intravenous, As needed, Starting on Tue01/16/21 at 0808, Anesthesia Intra-op Given 01/16/2021 10:06 AM REGENERATOR OPERATOR 25 mcg Given 01/16/2021 9:27 AM REGENERATOR OPERATOR 25 mcg glycopyrrolate injection (ROBINUL) Given 01/16/2021 8:21 AM REGENERATOR OPERATOR 0.2 mg intravenous, As needed, Starting on Tue01/16/21 at 0821, Anesthesia Intra-op heparin (porcine) injection 5,000 Units Given 01/16/2021 8:19 AM REGENERATOR OPERATOR 5,000 Units 5,000 Units, subcutaneous, Once, On Tue01/16/21 at 0715, For 1 dose, Intra-Op, Administer prior to induction of anesthesia. ketorolac injection (TORADOL) Given 01/16/2021 10:14 AM REGENERATOR OPERATOR 15 mg As needed, Starting on Tue01/16/21 at 1014, Anesthesia Intra-op lactated ringers New Bag 01/16/2021 7:56 AM REGENERATOR OPERATOR intravenous, Continuous Infusion: Per Instructions PRN, Starting on Tue01/16/21 at 0756, Anesthesia Intra-op lidocaine (PF) (cardiac) injection Given 01/16/2021 8:08 AM REGENERATOR OPERATOR 100 mg intravenous, As needed, Starting on Tue01/16/21 at 0808, Anesthesia Intra-op ondansetron (PF) injection (ZOFRAN) Given 01/16/2021 10:32 AM REGENERATOR OPERATOR 4 mg intravenous, As needed, Starting on Tue01/16/21 at 1032, Anesthesia Intra-op phenylephrine injection Given 01/16/2021 8:49 AM REGENERATOR OPERATOR 50 mcg intravenous, As needed, Starting on Tue01/16/21 at 0813, Anesthesia Intra-op Given 01/16/2021 8:43 AM REGENERATOR OPERATOR 50 mcg Given 01/16/2021 8:15 AM REGENERATOR OPERATOR 50 mcg propofoL injection (DIPRIVAN) Given 01/16/2021 10:35 AM REGENERATOR OPERATOR 20 mg intravenous, As needed, Starting on Tue01/16/21 at 0808, Anesthesia Intra-op Given 01/16/2021 8:08 AM REGENERATOR OPERATOR 100 mg sugammadex injection (BRIDION) Given 01/16/2021 10:32 AM REGENERATOR OPERATOR 150 mg As needed, Starting on Tue01/16/21 at 1032, Anesthesia Intra-op vancomycin 1,000 mg in NaCl 0.9% 250 mL Given 01/16/2021 8:19 AM REGENERATOR OPERATOR 1 g (VANCOCIN) IVPB 1,000 mg (rounded from 1,101 mg = 15 mg/ kg ? 73.4 kg), intravenous, at 260 mL/hr, Administer over 60 Minutes, Once, On Tue01/16/21 at 0745, For 1 dose, Pre-Op, Drug Monitoring Program: Pharmacist to adjust medication dosing based on indication and drug clearance factors., Indications: Prophylaxis, surgical vecuronium injection (NORCURON) Given 01/16/2021 10:13 AM REGENERATOR OPERATOR 1 mg As needed, Starting on Tue01/16/21 at 0809, Anesthesia Intra-op Given 01/16/2021 9:52 AM REGENERATOR OPERATOR 1 mg Given 01/16/2021 9:37 AM REGENERATOR OPERATOR 1 mg documented in this encounter Care Teams Brakes Inspector Relationship Specialty Start Date End Date Elsewhere, Pcp PCP - General Family Medicine 10/25/18 documented as of this encounter
--- OUTSIDE RECORDS SUMMARY | 2022-08-30 08:40 | XMS_ITS | Encounter Summary ---
:1945 Author Organization [facility] Address [address] [place] [address] Care Team Providers Name Role Phone Elsewhere, Pcp Primary Care Provider Unavailable Reason for Visit Appointment Request (Routine) - Closed Specialty Diagnoses / Procedures Referred By Contact Refer red To Contact Preventive Medicine Referral ID Status Reason Start Date Expiration Date Visits Requ ested Visits Authorized [id number] Closed 09/05/2019 09/04/2020 1 Encounter Details Date Type Department Care Team Description 09/05/2019 Immunization Section of Preventive, Need Vaccine Transportation and Immunizat ion Influenza Occupational Medicine in [place], [place] [address] [place] [phone] Social History Tobacco Use Types Packs/Day [...] Natasha Mullins APRN, C.N.P., M.S.N. [address] [place] [phone] (Wo rk) 10/11/2022 Ancillary Procedure Cardiovascular Disease Natasha Cramer APRN, Radha.N.[place]., M.S.N. [address] [place] [phone] (Wo rk) 10/11/2022 Appointment Cardiovascular Disease Natasha Mullins APRN, C.NRenetta, M.S.N. [address] [place] [phone] (Wo rk) 10/12/2022 Office Visit Cardiovascular Disease Natasha Mullins APRN, Radha.N.P., M.S.N. [address] [place] [phone] (Wo rk) documented as of this encounter Visit Diagnoses Diagnosis Need Vaccine Immunization Influenza documented in this encounter Care Teams Sheet Metal Helper Relationship Specialty Start Date End Date Elsewhere, Pcp PCP - General Family Medicine 10/25/18 documented as of this encounter
--- OUTSIDE RECORDS SUMMARY | 2022-08-30 08:40 | XMS_ITS | Encounter Summary ---
:1945 Author Organization [facility] Address [address] [place] [address] Care Team Providers Name Role Phone Elsewhere, Pcp Primary Care Provider Unavailable Reason for Referral Outpatient (Routine) - Closed Specialty Diagnoses / Procedures Referred By Contact Refer red To Contact Diagnoses Lymphoma Nodular Multiple Site (HCC) Edison Alvarez M.B.B.S. [facility] Procedures PET CT Skull to Thigh FDG Referral ID Status Reason Start Date Expiration Date Visits Requ ested Visits Authorized [id number] Closed 04/28/2020 04/28/2021 6 6 utpatient (Routine) - Closed Specialty Diagnoses / Procedures Referred By Contact Refer red To Contact Hematology Oncology Edison Alvarez M.B.BCarmineSCarmine [facility] Referral ID Status Reason Start Date Expiration Date Visits Requ ested Visits Authorized [id number] Closed 04/28/2020 04/28/2021 1 1 Reason for Visit Outpatient (Routine) - Closed Specialty Diagnoses / Procedures Referred By Contact Refer red To Contact Hematology Oncology Lauren Brown M.D. [address] [place] [address] Referral ID Status Reason Start Date Expiration Date Visits Requ ested Visits Authorized [id number] Closed 09/06/2019 09/05/2020 1 1 Encounter Details Date Type Department Care Team Description 04/28/2020 Office Visit Division of Dionicio Muniz, Lymphoma Nodular Multiple Site (HCC) (Primary Dx); Hematology in Dante Garcia M.D. Malignant Neoplasm Of Thyroid (HCC); [place] [address] [address] [facility] Atherosclerotic Heart Disease Of [place] Coronary Artery Without Angina Pectoris; [place], [place] Lesion Skin Polypoid 200 [facility] [address] [place], [place] [phone] (Wo rk) [phone] Social History Tobacco Use Types Packs/Day Years [...] in this encounter Progress Notes Edison Alvarez M.B.BCarmineS. - 04/28/2020 2:30 PM CDT SUBJECTIVE CHIEF COMPLAINT / REASON FOR VISIT Primary senior premium auditor: Dr. Greenberg Low grade lymphoma HISTORY OF [...] Encounters: 04/28/20 75.8 kg 10/15/19 73.6 kg 10/23/19 76.2 kg PHYSICAL EXAM General: Well-nourished, in [...] Dr. Wu. #3 Atherosclerotic Heart Disease Of [place] Coronary Artery Without Angina Pectoris To continue [...] Medicine Natasha Mullins APRN, C.N.P., M.S.N. [address] [place] [address] [phone] (Joanie velázquez) 10/11/2022 Ancillary Procedure Cardiovascular Disease Natasha Cramer APRN, Radha.N.P., M.S.N. [address] [place] [address] [phone] (Joanie velázquez) 10/11/2022 Appointment Cardiovascular Disease Natasha Mullins APRN, C.N.P., M.S.N. [address] [place] [address] [phone] (Joanie velázquez) 10/12/2022 Office Visit Cardiovascular Disease Natasha Mullins APRN, Radha.N.P., M.S.N. [address] [place] [address] [phone] (Joanie velázquez) Scheduled Referrals Name Type Priority Associated Order Schedule Diagnoses Hematology office Outpatient Referral Routine Exp ected: visit (clinic) 04/28/2021 (Approximate), Expires: 04/28/2023 documented as of this encounter Results Potassium (03/17/2021 2:36 PM CDT) [facility] Potassium, S 4.4 3.6 - 5.2 03/17/2021 DTL mmol/L 3:26 PM CDT Specimen Anatomical Collection Method Collection Time Receive d Time (Source) Location / / Volume Laterality Blood (Blood, 03/17/2021 2:36 PM 03/17/20 2:44 Venous) CDT PM CDT Edison DouglassS. LAB BLOOD ADD-ON Performing Organization Address City/[facility] Phon e Number [facility] - [address] LD (Lactate Dehydrogenase) (03/17/2021 2:36 PM CDT) [facility] Meme LD 184 122 - 222 03/17/2021 DTL U/L 3:50 PM CDT Specimen Anatomical Collection Method Collection Time Receive d Time (Source) Location / / Volume Laterality Blood (Blood, 03/17/2021 2:36 PM 03/17/20 21 3:10 Venous) CDT PM CDT Edison DouglassSCarmine LAB BLOOD NON ADD-ON Performing Organization Address City/[facility] Phon e Number [facility] - [address] Creatinine with Estimated GFR (03/17/2021 2:36 PM CDT) [facility] Creatinine 0.92 0.74 - 03/17/2021 DTL 1.35 mg/dL 3:26 PM CDT eGFR-Non 80 >=60 03/17/2021 DTL Black/ mL/min/BSA 3:26 PM CDT Salvadorean Comment: ----ADDITIONAL INFORMATION---- Estimated GFR calculated using the 2009 CKD_EPI creatinine equation. eGFR-Black/ >90 >=60 mL/min/BSA 2020 3:26 PM CDT DTL Comment: ----ADDITIONAL INFORMATION---- Estimated GFR calculated using the 2009 CKD_EPI creatinine equation. Specimen Anatomical Collection Method Collection Time Receive d Time (Source) Location / / Volume Laterality Blood (Blood, 03/17/2021 2:36 PM 03/17/20 2:44 Venous) CDT PM CDT Edison Medina LAB BLOOD ADD-ON Performing Organization Address City/State/ZIP Code Phon e Number [facility] - [address] [place] [phone] [facility] [place] [address] [facility] 200 [facility] CBC with Differential, Blood (03/17/2021 2:36 PM [...] 21 2:44 Venous) CDT PM CDT Edison Wray.S. LAB BLOOD ADD-ON Performing Organization Address City/[facility] Phon e Number [address] Calcium, Total (03/17/2021 2:36 PM CDT) P athologist Signature Calcium, Total, 8.8 8.8 - 10.2 03/17/2021 DTL S mg/dL 3:26 PM CDT Specimen Anatomical Collection Method Collection Time Receive d Time (Source) Location / / Volume Laterality Blood (Blood, 03/17/2021 2:36 PM 03/17/20 2:44 Venous) CDT PM CDT Edison LoweB.S. LAB BLOOD ADD-ON Performing Organization Address City/State/[facility] Phon e Number [facility] - [address] [place] [address] [place] [address] Bilirubin, Total (03/17/2021 2:36 PM CDT) P athologist Signature Bilirubin, 0.3 <=1.2 mg/dL 03/17/2021 DTL Total, S 3:26 PM CDT Specimen Anatomical Collection Method Collection Time Receive d Time (Source) Location / / Volume Laterality Blood (Blood, 03/17/2021 2:36 PM 03/17/20 21 2:44 Venous) CDT PM CDT Edison LoweBCarmineS. LAB BLOOD ADD-ON Performing Organization Address City/[facility] Phon e Number [facility] - [address] AST (Aspartate Aminotransferase) (03/17/2021 2:36 PM CDT) Patholo gist Method Time Signature Aspartate 20 8 - 48 03/17/2021 DTL Aminotransferase U/L 3:26 PM CDT (AST), S Specimen Anatomical Collection Method Collection Time Receive d Time (Source) Location / / Volume Laterality Blood (Blood, 03/17/2021 2:36 PM 03/17/20 2:44 Venous) CDT PM CDT Edison Medina LAB BLOOD ADD-ON Performing Organization Address [facility] Phon e Number [facility] - [address] Alkaline Phosphatase (03/17/2021 2:36 PM CDT) P athologist Signature Alkaline 113 40 - 129 03/17/2021 DTL Phosphatase, S U/L 3:26 PM CDT Specimen Anatomical Collection Method Collection Time Receive d Time (Source) Location / / Volume Laterality Blood (Blood, 03/17/2021 2:36 PM 03/17/20 21 2:44 Venous) CDT PM CDT Edison Medina LAB BLOOD ADD-ON Performing Organization Address City/[facility] Phon e Number [facility] - 200 [place], [place] [address] [place] [address] Skull to Thigh FDG (03/17/2021 [...] fludeoxyglucose F 18 injection CARE HOME (FDG F-18),9.95 millicurie TECHNIQUE: ??F-18 FDG PET/CT [...] fludeoxyglucose F 18 injection CARE HOME (FDG F-18),9.95 millicurie TECHNIQUE: F-18 FDG PET/CT [...] focal prostate cancer would appear similar. Edison DouglassS. 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
--- OUTSIDE RECORDS SUMMARY | 2022-08-30 08:40 | XMS_ITS | Encounter Summary ---
:1945 Author Organization [facility] Address [address] [place] [address] Care Team Providers Name Role Phone Elsewhere, Pcp Primary Care Provider Unavailable Encounter Details Date Type Department Care Team Description 09/05/2019 Hospital Encounter Department of Loni Wu Neoplasm Of Radiology, Jethro Love M.D. Thyroid (HCC) Building, in [address] [place] [phone] [place], [place] [phone] (Work) [phone] Social History Tobacco Use Types Packs/Day Years [...] Medicine Natasha Mullins APRN, Radha.N.P., M.S.N. [address] [place] [phone] (Joanie velázquez) 10/11/2022 Ancillary Procedure Cardiovascular Disease Natasha Cramer APRN, C.N.P., M.S.N. [address] [place] [phone] (Joanie velázquez) 10/11/2022 Appointment Cardiovascular Disease Natasha Mullins APRN, C.N.P., M.S.N. [address] [place] [phone] (Joanie velázquez) 10/12/2022 Office Visit Cardiovascular Disease Natasha Mullins APRN, C.N.P., M.S.N. [address] [place] [phone] (Joanie velázquez) documented as of this [...] (HCC) documented in this encounter Care Teams Improvement Intern Relationship Specialty Start Date End Date Elsewhere, Pcp PCP - General Family Medicine 10/25/18 documented as of this encounter
--- OUTSIDE RECORDS SUMMARY | 2022-08-30 08:40 | XMS_ITS | Encounter Summary ---
:1945 Author Organization [facility] Address [address] [place] [address] Care Team Providers Name Role Phone Elsewhere, Pcp Primary Care Provider Unavailable Reason for Visit Reason Comments Phone Contact Encounter Details Date Type Department Care Team Description 02/13/2020 Clinical Communication Division of Dionicio Muniz , Phone Contact Hematology in Dante Garcia M.D. [place], [facility] [address] [place], [place] [address] [place] [phone] [place], [place] [phone] (Wo rk) [phone] Social History Tobacco Use Types Packs/Day Years [...] or relatives? How often do you attend temple or More than 4 times per year 10/15/2019 latter day services? Do you belong to any clubs or Yes 10/15/2019 organizations such as temple groups, unions, fraternal or athletic groups, or [...] AM CDT Caller is: Levi Khanna Primary Hot Pipe Gauger: Dr. Greenberg Reason for call (be specific): Patient calling today he found blood in his urine this am about 6:30am. It was colored ting red with little clots. Can you please call him and speak with him on this. Advice/Action: Can you please contact patient and give him advice on this. Best phone number to call back [phone] Additional instructions: Thank you, Johanna If replying please route to P RST HEM SCHEDULING documented in this encounter Plan of Treatment Upcoming Encounters Date Type Specialty Care Team Description 10/11/2022 Appointment Laboratory Medicine Natasha Mullins APRN, C.N.P., M.S.N. [address] [place] [phone] (Joanie velázquez) 10/11/2022 Ancillary Procedure Cardiovascular Disease Natasha Cramer APRN, Radha.N.P., M.S.N. [address] [place] [phone] (Wo rk) 10/11/2022 Appointment Cardiovascular Disease Natasha Mullins APRN, Radha.N.P., M.S.N. [address] [place] [phone] (Wo rk) 10/12/2022 Office Visit Cardiovascular Disease Natasha Mullins APRN, Radha.N.[place]., M.S.N. [address] [place] [phone] (Wo rk) documented as of this encounter Visit Diagnoses Not on filedocumented in this encounter Care Teams Child Care Relationship Specialty Start Date End Date Elsewhere, Pcp PCP - General Family Medicine 10/25/18 documented as of this encounter
--- OUTSIDE RECORDS SUMMARY | 2022-08-30 08:40 | XMS_ITS | Encounter Summary ---
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 [address] [place] [address] Referral ID Status Reason Start Date Expiration Date Visits Requ ested Visits Authorized [id number] Closed 09/06/2019 09/05/2020 1 1 Encounter Details Date Type Department Care Team Description 09/06/2019 Orders Only Division of [place], Unspecif ied B Cell Hematology in Dante Garcia M.D. Lymphoma Lymph Nodes [place], [place] [address] [facility] [address] [place], [place] (HCC) (Primary Dx) [place] [phone] Social History Tobacco Use Types Packs/Day Years [...] Medicine Natasha Mullins APRN, C.N.P., M.S.N. [address] [place] [phone] (Joanie velázquez) 10/11/2022 Ancillary Procedure Cardiovascular Disease Natasha Cramer APRN, C.N.P., M.S.N. [address] [place] [address] [phone] (Joanie velázquez) 10/11/2022 Appointment Cardiovascular Disease Natasha Mullins APRN, C.N.P., M.S.N. [address] [place] [address] [phone] (Joanie velázquez) 10/12/2022 Office Visit Cardiovascular Disease Natasha Mullins APRN, C.N.P., M.S.N. [address] [place] [address] [phone] (Joanie velázquez) Scheduled Referrals Name Type Priority [...] RADIOPHARMACEUTICAL/MEDS: Route: intravenous fludeoxyglucose F 18 injection LONG-TERM (FDG F-18),14.81 millicurie TECHNIQUE: ??F-18 FDG PET/CT [...] RADIOPHARMACEUTICAL/MEDS: Route: intravenous fludeoxyglucose F 18 injection LONG-TERM (FDG F-18),14.81 millicurie TECHNIQUE: F-18 FDG PET/CT [...] This is unchanged since the prior. Dante Muniz M.D. IMG NM PROCEDURES Potassium (04/28/2020 8:19 AM CDT) P athologist Signature Potassium, S 4.8 3.6 - 5.2 04/28/2020 DTL mmol/L 9:20 AM CDT Specimen Anatomical Collection Method Collection Time Receive d Time (Source) Location / / Volume Laterality Blood (Blood, 04/28/2020 8:19 AM 04/28/20 20 8:46 Venous) CDT AM CDT Dante Muniz M.D. LAB BLOOD ADD-ON Performing Organization Address City/State/ZIP Code Phon e Number [facility] - [address] [place], [place] [address] [place] [address] [address] LD (Lactate Dehydrogenase) (04/28/2020 8:19 AM CDT) [facility] LD 174 122 - 222 04/28/2020 DTL U/L 12:47 PM CDT Specimen Anatomical Collection Method Collection Time Receive d Time (Source) Location / / Volume Laterality Blood (Blood, 04/28/2020 8:19 AM 04/28/20 9:18 Venous) CDT AM CDT Authorizing Provider Result Manuel Muniz M.D. LAB BLOOD NON ADD-ON Performing Organization Address City/[facility] [[email or web address]] Code Phon e Number [facility] - 200 [place], [place] [address] [address] [place] [address] Laboratories-[address] Creatinine with Estimated GFR (04/28/2020 8:19 AM CDT) [facility] Creatinine 0.84 0.74 - 04/28/2020 DTL 1.35 mg/dL 9:20 AM CDT eGFR-Non 85 >=60 04/28/2020 DTL Black/ mL/min/BSA 9:20 AM CDT Salvadorean Comment: ----ADDITIONAL INFORMATION---- Estimated GFR [...] Organization Address City/State/ZIP Code Phon e Number [facility] - [address] [place], [place] [address] [facility] [place] [address] Laboratories-[facility] [address] [facility] (ABNORMAL) CBC with Differential, Blood (04/28/2020 8:19 AM CDT) [facility] gist Method Time Signature Hemoglobin 14.4 13.2 - [...] Organization Address City/State/ZIP Code Phon e Number [facility] - 200 [place], [place] [address] [place] [address] [facility] [address] [facility] (ABNORMAL) Calcium, Total (04/28/2020 8:19 AM CDT) P athologist Signature Calcium, 8.7 (L) 8.8 - 10.2 04/28/2020 DT Total, S mg/dL 9:20 AM CDT Specimen Anatomical Collection Method Collection Time Receive d Time (Source) Location / / Volume Laterality Blood (Blood, 04/28/2020 8:19 AM 04/28/20 20 8:46 Venous) CDT AM CDT Dante Muniz M.D. LAB BLOOD ADD-ON Performing Organization Address City/[facility]/ZIP Code Phon e Number [facility] - [address] [place] [address] Bilirubin, Total (04/28/2020 8:19 AM CDT) athologist Signature Bilirubin, 0.4 <=1.2 mg/dL 04/28/2020 DT Total, S 9:20 AM CDT Specimen Anatomical Collection Method Collection Time Receive d Time (Source) Location / / Volume Laterality Blood (Blood, 04/28/2020 8:19 AM 04/28/20 20 8:46 Venous) CDT AM CDT Dante Muniz M.D. LAB BLOOD ADD-ON Performing Organization Address City/State/ZIP Code Phon e Number [facility] - [address] [place] [address] AST (Aspartate Aminotransferase) (04/28/2020 8:19 AM CDT) Patholo gist Method Time Signature Aspartate 24 8 - 48 04/28/2020 DTL Aminotransferase U/L 9:20 AM CDT (AST), S Specimen Anatomical Collection Method Collection Time Receive d Time (Source) Location / / Volume Laterality Blood (Blood, 04/28/2020 8:19 AM 04/28/20 20 8:46 Venous) CDT AM CDT Dante Muniz M.D. LAB BLOOD ADD-ON Performing Organization Address City/[facility] Phon e Number [facility] - [address] [address] Laboratories-[address] Alkaline Phosphatase (04/28/2020 8:19 AM CDT) P athologist Signature Alkaline 106 40 - 129 04/28/2020 DTL Phosphatase, S U/L 9:20 AM CDT Specimen Anatomical Collection Method Collection Time Receive d Time (Source) Location / / Volume Laterality Blood (Blood, 04/28/2020 8:19 AM 04/28/20 20 8:46 Venous) CDT AM CDT Dante Muniz M.D. LAB BLOOD ADD-ON Performing Organization Address City/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
--- OUTSIDE RECORDS SUMMARY | 2022-08-30 08:40 | XMS_ITS | Encounter Summary ---
:1945 Author Organization [facility] Address [address] [place] [address] Care Team Providers Name Role Phone Elsewhere, Pcp Primary Care Provider Unavailable Reason for Referral Outpatient (Routine) - Closed Specialty Diagnoses / Procedures Referred By Contact Refer red To Contact Cardiovascular Disease Lauren Mullins [facility] VY Kaur C.N.P., M.S.N. [address] [place] [phone] Referral ID Status Reason Start Date Expiration Date Visits Requ ested Visits Authorized [id number] Closed 10/15/2019 10/14/2020 1 1 utpatient (Routine) - Closed Specialty Diagnoses / Procedures Referred By Contact Refer red To Contact Diagnoses Chronic Systolic (Congestive) Heart Failure (HCC) Cardiomyopathy [facility]schem[facility] Transthoracic (TTE) Justin MCCLELLAN, M.S.N. [address] [place] [phone] Referral ID Status Reason Start Date Expiration Date Visits Requ ested Visits Authorized [id number] Closed 10/15/2019 10/14/2020 1 1 utpatient (Routine) - Closed Specialty Diagnoses / Procedures Referred By Contact Refer red To Contact Diagnoses Chronic Systolic (Congestive) Heart Failure (HCC) Cardiomyopathy [facility]schemic [facility] Procedures ECG 12 Lead Justin MCCLELLAN, M.S.N. [address] [place] [phone] Referral ID Status Reason Start Date Expiration Date Visits Requ ested Visits Authorized [id number] Closed 10/15/2019 10/14/2020 1 1 INSPECTOR Reason for Visit Outpatient (Routine) - Closed Specialty Diagnoses / Procedures Referred By Contact Refer red To Contact Cardiovascular Disease Chai Fagan [facility] VY Kaur C.N.P., M.S.N. [address] [place] [phone] Referral ID Status Reason Start Date Expiration Date Visits Requ ested Visits Authorized [id number] Closed 10/25/2018 10/25/2019 1 1 Encounter Details Date Type Department Care Team Description 10/15/2019 Office Visit Department of Chai Fagan, Chronic Sy stolic (Congestive) Heart Failure (HCC) (Primary Dx); Cardiovascular VY Kaur, Cardiomyopat hy Ischemic; Medicine in [place], CAdal, M .S.N. Hyperlipidemia; [place] [address] [place] [address] Atherosclerotic Heart Disease Of [place] Coronary Artery Without Angina Pectoris [address] [place] [phone] Social History Tobacco Use Types Packs/Day Years [...] or relatives? How often do you attend caodaism or More than 4 times per year 10/15/2019 christianity services? Do you belong to any clubs or Yes 10/15/2019 organizations such as caodaism groups, unions, fraternal or athletic groups, or [...] Comments Blood Pressure 103/72 10/15/2019 12:46 PM OIL INSPECTOR Pulse 89 10/15/2019 12:46 PM OIL INSPECTOR Temperature 36.9 ??C (98.4 ??F) 10/15/2019 12:43 PM OIL INSPECTOR Respiratory Rate - - Oxygen Saturation - - Inhaled Oxygen Concentration - - Weight 73.6 kg (162 lb 4.1 oz) 10/15/2019 12:43 PM OIL INSPECTOR Height 176 cm (5' 9.29) 10/15/2019 12:43 PM OIL INSPECTOR Body Mass Index 23.76 10/15/2019 12:43 PM OIL INSPECTOR documented in this encounter Progress Notes Natasha Mullins APRN, Radha.N.Franklin., M.S.N. - 10/15/2019 1:00 PM CST Heart failure Established Note Referring Provider: Natasha Mullins APRN, Radha.N.Franklin., M.S.N. CHIEF COMPLAINT/REASON FOR CONSULT Interval follow-up [...] reaction to iodinated contrast given at [facility] [place] in 2006. Visi [address] [...] refilled. Follow-up one year. Natasha Fagan APRN, C.N.P., M.S.N. 10/15/19 INSPECTOR documented in this encounter Plan of Treatment Upcoming Encounters Date Type Specialty Care Team Description 10/11/2022 Appointment Laboratory Medicine Natasha Mullins APRN, C.N.P., M.S.N. [address] [place] [phone] (Wo rk) 10/11/2022 Ancillary Procedure Cardiovascular Disease Natasha Cramer APRN, C.N.P., M.S.N. [address] [place] [phone] (Wo rk) 10/11/2022 Appointment Cardiovascular Disease Natasha Mullins APRN, C.N.P., M.S.N. [address] [place] [phone] (Wo rk) 10/12/2022 Office Visit Cardiovascular Disease Natasha Mullins APRN, C.N.P., M.S.N. [address] [place] [phone] (Joanie rk) Scheduled Referrals Name Type Priority Associated Order Schedule Diagnoses Cardiovascular Disease Outpatient Referral Routine Expected: office visit (clinic) 2019 (Approximate), Expires: 10/15/2021 documented as of this encounter Results ECG 12 Lead (10/15/2020 11:32 AM OIL INSPECTOR) P athologist Signature Ventricular Rate 65 BPM MUSE ECG/Min IN Interval 192 ms MUSE QRSD Interval 154 ms MUSE QT Interval 426 ms MUSE QTC Interval 443 ms MUSE P [place] 63 degrees MUSE R [place] -30 degrees MUSE T Wave [place] 60 degrees MUSE Specimen Anatomical Collection Method Collection Time Receive d Time (Source) Location / / Volume Laterality 10/15/2020 11:32 10/15/2020 AM OIL INSPECTOR 11:36 AM OIL INSPECTOR Impressions MUSE - 10/15/2020 11:36 AM OIL INSPECTOR Normal sinus rhythm Left axis deviation Right bundle branch block with secondary ST-T abnormalities Anteroseptal infarct When compared with ECG of 15-OCT-2019 11 :46, No significant change was found Reviewed by WALESKA Huerta Narrative This result has an attachment that is no t available. Procedure Note Kalr Guzman Jr., M.D. - 10/15/2020For matting of this note might be different from the original. IMPRESSION: Normal sinus rhythm Left axis deviation Right bundle branch block with secondary ST-T abnormalities Anteroseptal infarct When compared with ECG of 15-OCT-2019 11 :46, No significant change was found Reviewed by WALESKA Huerta Natasha Paula Rylan MCCLELLAN, C.N.P., M.S.N. ECG ORDERA BLES Performing Organization Address City/State/ZIP Code Phon e Number MUSE MUSE NA (TTE) 2D ECHO DOPPLER COLOR (10/15/2020 9:58 AM OIL INSPECTOR) Analysis Performed At Patho logist Time Signature [...] / / Volume Laterality 10/15/2020 8:39 AM OIL INSPECTOR Impressions 10/15/2020 10:47 AM OIL INSPECTOR Last full echocardiogram performed 10/15/2019. ??Echocardiogram performed [...] effusion. For the complete report, see the [employer] Documents. Narrative 10/15/2020 10:47 AM OIL INSPECTOR For the complete report, see the [employer] Documents. Final Impressions 1. Borderline enlarged left [...] Natasha Fagan APRN, C.N.P., M.S.N. CV ECHO IN OCEDURES Lipid Panel (10/15/2020 7:59 AM OIL INSPECTOR) P athologist Signature Cholesterol, 198 mg/dL 10/15/2020 DTL Total 9:14 AM OIL INSPECTOR Comment: ----REFERENCE VALUE---- Desirable: < 200 Borderline high: 200 - 239 High: > or = 240 Triglycerides 56 mg/dL 10/15/2020 9:14 AM OIL INSPECTOR DTL Comment: ----REFERENCE VALUE---- Normal: <150 Borderline high: 150-199 High: 200-499 Very high: > or =500 Cholesterol, HDL, S 75 >=40 mg/dL 10/15/2020 9:14 AM OIL INSPECTOR DTL Calculated LDL 112 mg/dL 10/15/2020 9:14 AM OIL INSPECTOR DT L Comment: ----REFERENCE VALUE---- Desirable: <100 Above Desirable: 100-129 Borderline high: 130-159 High: 160-189 Very high: > or =190 Cholesterol, Non-HDL, Calculated 123 mg/dL 020 9:14 AM OIL INSPECTOR DTL Comment: ----REFERENCE VALUE---- Desirable: <130 Above Desirable: 130-159 Borderline high: 160-189 High: 190-219 Very high: > or =220 Specimen Anatomical Collection Method Collection Time Receive d Time (Source) Location / / Volume Laterality Blood (Blood, 10/15/2020 7:59 AM 10/15/20 20 8:52 Venous) OIL INSPECTOR AM OIL INSPECTOR Natasha Fagan APRN, C.N.P., M.S.N. LAB BLOOD ADD-ON Performing Organization Address City/State/ZIP Code Phon e Number [facility] - [address] [place], [place] [address] [facility] [place] [address] Laboratories-[facility] [address] ALT (Alanine Aminotransferase) (10/15/2020 7:59 AM OIL INSPECTOR) Patholo gist Method Time Signature Alanine 21 7 - 55 10/15/2020 DTL Aminotransferase U/L 9:14 AM OIL INSPECTOR (ALT), S Specimen Anatomical Collection Method Collection Time Receive d Time (Source) Location / / Volume Laterality Blood (Blood, 10/15/2020 7:59 AM 10/15/20 8:52 Venous) OIL INSPECTOR AM OIL INSPECTOR Danny Eastman APRNNLibrado., M.S.N. LAB BLOOD ADD-ON Performing Organization Address City/[facility] Phon e Number [facility] - [address] CBC without Differential (10/15/2020 7:59 AM OIL INSPECTOR) P athologist Signature Hemoglobin 13.8 13.2 - 10/15/2020 DTL 16.6 g/dL 8:42 AM OIL INSPECTOR Hematocrit 41.0 38.3 - 10/15/2020 DTL 48.6 % 8:42 AM OIL INSPECTOR Erythrocytes 4.43 4.35 - 10/15/2020 DTL 5.65 8:42 AM OIL INSPECTOR x10(12)/L MCV 92.6 78.2 - 10/15/2020 DTL 97.9 fL 8:42 AM OIL INSPECTOR RBC Distrib Width 13.2 11.8 - 10/15/2020 DTL 14.5 % 8:42 AM OIL INSPECTOR Platelet Count 212 135 - 317 10/15/2020 DTL x10(9)/L 8:42 AM OIL INSPECTOR Leukocytes 5.2 3.4 - 9.6 10/15/2020 DTL x10(9)/L 8:42 AM OIL INSPECTOR Specimen Anatomical Collection Method Collection Time Receive d Time (Source) Location / / Volume Laterality Blood (Blood, 10/15/2020 7:59 AM 10/15/20 8:28 Venous) OIL INSPECTOR AM OIL INSPECTOR Danny Eastman APRNNLibrado., M.S.N. LAB BLOOD ADD-ON Performing Organization Address City/[facility] Phon e Number [facility] - [address] [place] [phone] [facility] [address] (ABNORMAL) Basic Metabolic Panel (10/15/2020 7:59 AM OIL INSPECTOR) P athologist Signature Potassium, S 5.0 3.6 - 5.2 10/15/2020 DTL mmol/L 9:11 AM OIL INSPECTOR Sodium, S 127 (L) 135 - 145 10/15/2020 DTL mmol/L 9:11 AM OIL INSPECTOR Chloride, S 92 (L) 98 - 107 10/15/2020 DTL mmol/L 9:11 AM OIL INSPECTOR Bicarbonate, S 27 22 - 29 10/15/2020 DTL mmol/L 9:11 AM OIL INSPECTOR Anion Gap 8 7 - 15 10/15/2020 DTL 9:11 AM OIL INSPECTOR BUN (Blood Urea 16 8 - 24 10/15/2020 DTL Nitrogen), S mg/dL 9:11 AM OIL INSPECTOR Creatinine 0.89 0.74 - 10/15/2020 DTL 1.35 mg/dL 9:11 AM OIL INSPECTOR eGFR-Non 82 >=60 10/15/2020 DTL Black/ mL/min/BSA 9:11 AM OIL INSPECTOR Polish Comment: ----ADDITIONAL INFORMATION---- Estimated GFR calculated using the 2009 CKD_EPI creatinine equation. eGFR-Black/ >90 >=60 mL/min/BSA 2019 9:11 AM OIL INSPECTOR DTL Comment: ----ADDITIONAL INFORMATION---- Estimated GFR calculated using the 2009 CKD_EPI creatinine equation. Calcium, Total, S 9.0 8.8 - 10.2 mg/dL 10/15/2020 9:11 AM OIL INSPECTOR DTL Glucose, S 105 70 - 140 mg/dL 10/15/2020 9:11 AM OIL INSPECTOR D TL Specimen Anatomical Collection Method Collection Time Receive d Time (Source) Location / / Volume Laterality Blood (Blood, 10/15/2020 7:59 AM 10/15/20 8:50 Venous) OIL INSPECTOR AM OIL INSPECTOR Natasha Fagan APRN C.N.P., M.S.N. LAB BLOOD ADD-ON Performing Organization Address City/State/ZIP Code Phon e Number [facility] - [address] [place] [phone] [facility] [place] [address] Laboratories-[facility] 200 [facility] documented in this encounter Visit Diagnoses Diagnosis Chronic Systolic (Congestive) Heart Fail ure (HCC) - Primary Cardiomyopathy Ischemic Hyperlipidemia Atherosclerotic Heart Disease Of [place] Coronary Artery Without Angina Pectoris Chronic Systolic (Congestive) Heart Fail ure (HCC) Cardiomyopathy Ischemic documented in this encounter Care Teams Mortgage Broker Relationship Specialty Start Date End Date Elsewhere, Pcp PCP - General Family Medicine 10/25/18 documented as of this encounter
--- OUTSIDE RECORDS SUMMARY | 2022-08-30 08:40 | XMS_ITS | Encounter Summary ---
:1945 Author Organization [facility] Address [address] [place] [address] Care Team Providers Name Role Phone Elsewhere, Pcp Primary Care Provider Unavailable Encounter Details Date Type Department Care Team Description 10/15/2019 Hospital Department of [facility] Cardiomyopathy Ischemic; Encounter Cardiovascular Natasha Fagan, Jaqui Sy stolic (Congestive) Heart Failure (HCC) Diseases in [facility], C.N.P.[place], [place] M.S.N. [address] [facility] [address] [place] [address] [phone] Social History Tobacco Use Types Packs/Day Years [...] Medicine Natasha Mullins APRN, C.N.P., M.S.N. [address] [place] [phone] (Joanie velázquez) 10/11/2022 Ancillary Procedure Cardiovascular Disease Natasha Cramer APRN, C.N.P., M.S.N. [address] [place] [phone] (Joanie velázquez) 10/11/2022 Appointment Cardiovascular Disease Natasha Mullins APRN, C.N.P., M.S.N. [address] [place] [phone] (Joanie velázquez) 10/12/2022 Office Visit Cardiovascular Disease Natasha Mullins APRN, C.N.P., M.S.N. [address] [place] [phone] (Joanie velázquez) documented as of this encounter Procedures Procedure Name Priority Date/Time Associated Diagnosis Comme nts (TTE) 2D ECHO Routine 10/15/2019 10:40 Cardiomyopathy Ischemic Results for this DOPPLER COLOR AM PROFESSOR OF FOOD BIOCHEMISTRY Chronic Systolic procedure are in (Congestive) Heart the resul ts Failure (HCC) section. documented in this encounter Results (TTE) 2D ECHO DOPPLER COLOR (10/15/2019 10:40 AM PROFESSOR OF FOOD BIOCHEMISTRY) [facility] Method Time Signature Ejection Fraction 51 MC [...] / / Volume Laterality 10/15/2019 9:05 AM PROFESSOR OF FOOD BIOCHEMISTRY Impressions 10/15/2019 10:51 AM PROFESSOR OF FOOD BIOCHEMISTRY LEFT VENTRICLE: ??Borderline left ventricular enlargement. ??Normal [...] . For the complete report, see the [employer] Documents below. See PDF For Result Narrative 10/15/2019 10:51 AM PROFESSOR OF FOOD BIOCHEMISTRY For the complete report, see the [employer] Documents below. Final Impressions 1. Borderline left [...] (HCC) documented in this encounter Care Teams Merchandising Coordinator Relationship Specialty Start Date End Date Elsewhere, Pcp PCP - General Family Medicine 10/25/18 documented as of this encounter
--- OUTSIDE RECORDS SUMMARY | 2022-08-30 08:40 | XMS_ITS | Encounter Summary ---
:1945 Author Organization [facility] Address [address] [place] [address] Care Team Providers Name Role Phone Elsewhere, Pcp Primary Care Provider Unavailable Reason for Visit Reason Comments COVID Inquiry Encounter Details Date Type Department Care Team Description 06/02/2020 Clinical Communication Division of Loni Wu Endocrinology in [place], [place] [address] [facility] [address] [place] [address] [phone] Social History Tobacco Use Types Packs/Day Years [...] Patient Requesting COVID PCR Test OTG COVID-19 [place] Patient Requesting COVID PCR Test). 1. Do [...] Medicine Natasha Mullins APRN, Radha.N.P., M.S.N. [address] [place] [phone] (Joanie velázquez) 10/11/2022 Ancillary Procedure Cardiovascular Disease Natasha Cramer APRN, C.N.P., M.S.N. [address] [place] [phone] (Joanie velázquez) 10/11/2022 Appointment Cardiovascular Disease Natasha Mullins APRN, Radha.N.P., M.S.N. [address] [place] [phone] (Joanie rk) 10/12/2022 Office Visit Cardiovascular Disease Natasha Mullins APRN, C.N.P., M.S.N. [address] [place] [address] (Wo rk) documented as of this encounter Visit Diagnoses Not on filedocumented in this encounter Care Teams Floor Layer Apprentice Relationship Specialty Start Date End Date Elsewhere, Pcp PCP - General Family Medicine 10/25/18 documented as of this encounter
--- OUTSIDE RECORDS SUMMARY | 2022-08-30 08:40 | XMS_ITS | Encounter Summary ---
:1945 Author Organization [facility] Address [address] [place] [address] Care Team Providers Name Role Phone Elsewhere, Pcp Primary Care Provider Unavailable Encounter Details Date Type Department Care Team Description 06/03/2020 Hospital Encounter Department of Loni Wu t Neoplasm Of Thyroid Papillary (HCC); Radiology, Jethro Love M.D. 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 [address] [place] [phone] (Joanie velázquez) 10/11/2022 Ancillary Procedure Cardiovascular Disease Natasha Cramer APRN, C.N.P., M.S.N. [address] [place] [phone] (Joanie vleázquez) 10/11/2022 Appointment Cardiovascular Disease Natasha Mullins APRN, C.N.P., M.S.N. [address] [place] [phone] (Joanie velázquez) 10/12/2022 Office Visit Cardiovascular Disease Natasha Mullins APRN, C.N.P., M.S.N. [address] [place] [phone] (Joanie velázquez) documented as of this [...] (HCC) documented in this encounter Care Teams Supervisor Refining Relationship Specialty Start Date End Date Elsewhere, Pcp PCP - General Family Medicine 10/25/18 documented as of this encounter
--- OUTSIDE RECORDS SUMMARY | 2022-08-30 08:40 | XMS_ITS | Encounter Summary ---
:1945 Author Organization [facility] Address [address] [place] [address] Care Team Providers Name Role Phone Elsewhere, Pcp Primary Care Provider Unavailable Encounter Details Date Type Department Care Team Description 09/05/2019 Hospital Encounter Department of Loni Wu Neoplasm Of Laboratory Medicine [place] Love Thyroid (HCC) and Pathology, [address] [place] [address] in [place], [place] [address] [place] [address] [place], [place] (Work) [phone] Social History Tobacco Use [...] Medicine Natasha Mullins APRN, Radha.N.P., M.S.N. [address] [place] [phone] (Wo rk) 10/11/2022 Ancillary Procedure Cardiovascular Disease Natasha Cramer APRN, Radha.N.P., M.S.N. [address] [place] [phone] (Wo rk) 10/11/2022 Appointment Cardiovascular Disease Natasha Mullins APRN, Radha.N.P., M.S.N. [address] [place] [phone] (Wo rk) 10/12/2022 Office Visit Cardiovascular Disease Natasha Mullins APRN, Radha.N.P., M.S.N. [address] [place] [phone] (Wo rk) documented as of this [...] 09/05/2019 Venous) AM CDT 10:53 AM CDT Authorizing Provider Result Manuel Wu M.D. LAB BLOOD ADD-ON Performing Organization Address City/State/ZIP Code Phon e Number [facility] - [address] [place], [place] [address] [facility] [place] [address] [facility] [address] (ABNORMAL) Thyroglobulin, Tumor Marker (09/05/2019 10:32 AM CDT) Patholo gist Method Time Signature Thyroglobulin 19 (H) <4.0 09/05/2019 [facility] Antibody, S IU/mL 3:08 PM CDT Thyroglobulin, 0.3 (H) ng/mL 09/05/2019 [facility] Tumor Marker, S 3:00 PM CDT Comment: ----REFERENCE VALUE---- Athyrotic <0.1 Intact Thyroid <=33 Thyroglobulin Interpretation SEE COMMENT 9 3:08 PM CDT [facility] Comment: Quantitation of thyroglobulin may [...] testing methods are immunoenzymatic assays manufactured by [employer] and performed on the Arden Reed DXI 800 . Values obtained from different [...] Performing Organization Address City/[facility]/ZIP Code Phon e Number [facility] [address] [place], [place] [address] [place] [address] [place] [address] Laboratory Medicine and Pathology [address] [...] Performing Organization Address City/[facility] Code Phon e Number [facility] - [address] [place], [place] [address] [facility] [address] [facility] [address] documented in this encounter Visit Diagnoses Diagnosis Malignant Neoplasm Of Thyroid (HCC) documented in this encounter Care Teams Line Installer Trolley Relationship Specialty Start Date End Date Elsewhere, Pcp PCP - General Family Medicine 10/25/18 documented as of this encounter
--- OUTSIDE RECORDS SUMMARY | 2022-08-30 08:40 | XMS_ITS | Encounter Summary ---
:1945 Author Organization [facility] Address [address] [place] [address] Care Team Providers Name Role Phone Elsewhere, Pcp Primary Care Provider Unavailable Reason for Visit Reason Onset Date Comments Med Rec 10/12/2019 Encounter Details Date Type Department Care Team Description 10/12/2019 Clinical Communication Department of Radha Ramos Rec Cardiovascular Medicine S, R.N. in [facility] [phone] [address] [facility] (Work) [place] [address] Social History Tobacco Use Types Packs/Day Years [...] Medication reconciliation will be done in person. TAL X RAY SERVICE ENGINEER documented in this encounter Plan of Treatment Upcoming Encounters Date Type Specialty Care Team Description 10/11/2022 Appointment Laboratory Medicine Natasha Mullins APRN, Radha.N.P., M.S.N. [address] [place] [address] [phone] (Wo rk) 10/11/2022 Ancillary Procedure Cardiovascular Disease Natasha Cramer APRN, C.N.P., M.S.N. [address] [place] [phone] (Wo rk) 10/11/2022 Appointment Cardiovascular Disease Natasha Mullins APRN, C.N.P., M.S.N. [address] [place] [address] [phone] (Wo rk) 10/12/2022 Office Visit Cardiovascular Disease Natasha Mullins APRN, Radha.N.P., M.S.N. [address] [place] [address] [phone] (Wo rk) documented as of this encounter Visit Diagnoses Not on filedocumented in this encounter Care Teams Automotive Mechanic Relationship Specialty Start Date End Date Elsewhere, Pcp PCP - General Family Medicine 10/25/18 documented as of this encounter
--- OUTSIDE RECORDS SUMMARY | 2022-08-30 08:40 | XMS_ITS | Encounter Summary ---
:[address] [facility] Address [address] [place] [address] Care Team Providers Name Role Phone Elsewhere, Pcp Primary Care Provider Unavailable Encounter Details Date Type Department Care Team Description 10/15/2019 Hospital Encounter Department of Chai Fagan, Card iomyopathy Ischemic; Laboratory VY Kaur, Chronic Systol ic (Congestive) Heart Failure (HCC) Medicine and C.N.P., M.S.N. Pathology, [place] [address] [place] [address], in [facility] [address] [place] [phone] [place] [address] (Work) [place], [place] [phone] (Fax) [phone] Social History Tobacco Use Types Packs/Day Years [...] Natasha Mullins APRN, C.N.P., M.S.N. [address] [place] [address] (Wo rk) 10/11/2022 Ancillary Procedure Cardiovascular Disease Natasha Cramer APRN, Radha.NRenetta, M.S.N. [address] [place] [address] (Wo rk) 10/11/2022 Appointment Cardiovascular Disease Natasha Mullins APRN, Radha.NRenetta, M.S.N. [address] [place] [phone] (Wo rk) 10/12/2022 Office Visit Cardiovascular Disease Natasha Mullins APRN, Radha.N.Jalen, M.S.N. [address] [place] [phone] (Wo rk) documented as of this encounter Procedures Procedure Name Priority Date/Time Associated Diagnosis Comme nts LIPID PANEL, S Routine 10/15/2019 7:39 Cardiomyopathy Results for this AM DEBT AND BUDGET COUNSELOR Ischemic procedure are in Chronic Systolic the results (Congestive) Heart section. Failure (HCC) CBC WITHOUT Routine 10/15/2019 7:39 Cardiomyopathy Results fo r this DIFFERENTIAL, B AM DEBT AND BUDGET COUNSELOR Ischemic procedure are in Chronic Systolic the results (Congestive) Heart section. Failure (HCC) BUN (BLOOD UREA Routine 10/15/2019 7:39 Cardiomyopathy Results for this NITROGEN), S/P AM DEBT AND BUDGET COUNSELOR Ischemic procedure are in Chronic Systolic the results (Congestive) Heart section. Failure (HCC) ASPARTATE Routine 10/15/2019 7:39 Cardiomyopathy Results fo r this AMINOTRANSFERASE (AST), AM DEBT AND BUDGET COUNSELOR Ischemic procedure are in S/P Chronic Systolic the results (Congestive) Heart section. Failure (HCC) SODIUM, S/P Routine 10/15/2019 7:39 Cardiomyopathy Results fo r this AM DEBT AND BUDGET COUNSELOR Ischemic procedure are in Chronic Systolic the results (Congestive) Heart section. Failure (HCC) POTASSIUM, S/P Routine 10/15/2019 7:39 Cardiomyopathy Results for this AM DEBT AND BUDGET COUNSELOR Ischemic procedure are in Chronic Systolic the results (Congestive) Heart section. Failure (HCC) CREATININE WITH EGFR, Routine 10/15/2019 7:39 Cardiomyopathy R esults for this S/P AM DEBT AND BUDGET COUNSELOR Ischemic procedure are in Chronic Systolic the results (Congestive) Heart section. Failure (HCC) documented in this encounter Results Lipid Panel (10/15/2019 7:39 AM DEBT AND BUDGET COUNSELOR) P athologist Signature Cholesterol, 197 mg/dL 10/15/2019 DTL Total 9:43 AM DEBT AND BUDGET COUNSELOR Comment: ----REFERENCE VALUE---- Desirable: < 200 Borderline high: 200 - 239 High: > or = 240 Triglycerides 71 mg/dL 10/15/2019 9:43 AM DEBT AND BUDGET COUNSELOR DTL Comment: ----REFERENCE VALUE---- Normal: <150 Borderline high: 150-199 High: 200-499 Very high: > or =500 Cholesterol, HDL, S 75 >=40 mg/dL 10/15/2019 9:43 AM DEBT AND BUDGET COUNSELOR DTL Calculated LDL 108 mg/dL 10/15/2019 9:43 AM DEBT AND BUDGET COUNSELOR DT L Comment: ----REFERENCE VALUE---- Desirable: <100 Above Desirable: 100-129 Borderline high: 130-159 High: 160-189 Very high: > or =190 Cholesterol, Non-HDL, Calculated 122 mg/dL 019 9:43 AM DEBT AND BUDGET COUNSELOR DTL Comment: ----REFERENCE VALUE---- Desirable: <130 Above Desirable: 130-159 Borderline high: 160-189 High: 190-219 Very high: > or =220 Specimen Anatomical Collection Method Collection Time Receive d Time (Source) Location / / Volume Laterality Blood (Blood, 10/15/2019 7:39 AM 10/15/20 19 8:03 Venous) DEBT AND BUDGET COUNSELOR AM DEBT AND BUDGET COUNSELOR Radha Eastman APRN.N.P., M.S.N. LAB BLOOD ADD-ON Performing Organization Address City/State/ZIP Code Phon e Number [facility] - [address] [place], [place] [address] [facility] [place] [address] Laboratories-[facility] [address] AST (Aspartate Aminotransferase) (10/15/2019 7:39 AM DEBT AND BUDGET COUNSELOR) Patholo gist Method Time Signature Aspartate 24 8 - 48 10/15/2019 DTL Aminotransferase U/L 9:43 AM DEBT AND BUDGET COUNSELOR (AST), S Specimen Anatomical Collection Method Collection Time Receive d Time (Source) Location / / Volume Laterality Blood (Blood, 10/15/2019 7:39 AM 10/15/20 19 8:03 Venous) DEBT AND BUDGET COUNSELOR AM DEBT AND BUDGET COUNSELOR Natasha Fagan APRN, C.N.P., M.S.N. LAB BLOOD ADD-ON Performing Organization Address City/[facility] Phon e Number [facility] - [address] [place], [place] [address] [place], [place] [phone] [place] [address] 200 [facility] CBC without Differential (10/15/2019 7:39 AM DEBT AND BUDGET COUNSELOR) athologist Signature Hemoglobin 14.6 13.2 - 10/15/2019 DTL 16.6 g/dL 8:15 AM DEBT AND BUDGET COUNSELOR Hematocrit 44.1 38.3 - 10/15/2019 DTL 48.6 % 8:15 AM DEBT AND BUDGET COUNSELOR Erythrocytes 4.76 4.35 - 10/15/2019 DTL 5.65 8:15 AM DEBT AND BUDGET COUNSELOR x10(12)/L MCV 92.6 78.2 - 10/15/2019 DTL 97.9 fL 8:15 AM DEBT AND BUDGET COUNSELOR RBC Distrib Width 13.3 11.8 - 10/15/2019 DTL 14.5 % 8:15 AM DEBT AND BUDGET COUNSELOR Platelet Count 206 135 - 317 10/15/2019 DTL x10(9)/L 8:15 AM DEBT AND BUDGET COUNSELOR Leukocytes 5.2 3.4 - 9.6 10/15/2019 DTL x10(9)/L 8:15 AM DEBT AND BUDGET COUNSELOR Specimen Anatomical Collection Method Collection Time Receive d Time (Source) Location / / Volume Laterality Blood (Blood, 10/15/2019 7:39 AM 10/15/20 8:03 Venous) DEBT AND BUDGET COUNSELOR AM DEBT AND BUDGET COUNSELOR Natasha Fagan APRN, C.N.P., M.S.N. LAB BLOOD ADD-ON Performing Organization Address City/State/ZIP Code Phon e Number [facility] - [address] [place], [place] [address] [facility] [place], [place] [phone] [place] [address] 200 [facility] Sodium (10/15/2019 7:39 AM DEBT AND BUDGET COUNSELOR) athologist Signature Sodium, S 135 135 - 145 10/15/2019 9:43 DTL mmol/L AM DEBT AND BUDGET COUNSELOR Specimen Anatomical Collection Method Collection Time Receive d Time (Source) Location / / Volume Laterality Blood (Blood, 10/15/2019 7:39 AM 10/15/20 19 8:03 Venous) DEBT AND BUDGET COUNSELOR AM DEBT AND BUDGET COUNSELOR Natasha Fagan APRN, C.N.P., M.S.N. LAB BLOOD ADD-ON Performing Organization Address City/[facility] Phon e Number [facility] - [address] [place], [place] [address] [place] [address] [facility] 200 [facility] Potassium (10/15/2019 7:39 AM DEBT AND BUDGET COUNSELOR) athologist Signature Potassium, S 4.7 3.6 - 5.2 10/15/2019 DTL mmol/L 9:43 AM DEBT AND BUDGET COUNSELOR Specimen Anatomical Collection Method Collection Time Receive d Time (Source) Location / / Volume Laterality Blood (Blood, 10/15/2019 7:39 AM 10/15/20 19 8:03 Venous) DEBT AND BUDGET COUNSELOR AM DEBT AND BUDGET COUNSELOR Natasha Fagan APRN, C.N.P., M.S.N. LAB BLOOD ADD-ON Performing Organization Address City/State/[facility] Phon e Number [facility] - 200 [place], [place] [address] [place] [address] Laboratories-[address] Creatinine with Estimated GFR (10/15/2019 7:39 AM DEBT AND BUDGET COUNSELOR) athologist Signature Creatinine 0.90 0.74 - 10/15/2019 DTL 1.35 mg/dL 9:43 AM DEBT AND BUDGET COUNSELOR eGFR-Non 83 >=60 10/15/2019 DTL Black/ mL/min/BSA 9:43 AM DEBT AND BUDGET COUNSELOR [place]ander Comment: ----ADDITIONAL INFORMATION---- Estimated GFR calculated using the 2009 CKD_EPI creatinine equation. eGFR-Black/ >90 >=60 mL/min/BSA 2018 9:43 AM DEBT AND BUDGET COUNSELOR DTL Comment: ----ADDITIONAL INFORMATION---- Estimated GFR calculated using the 2009 CKD_EPI creatinine equation. Specimen Anatomical Collection Method Collection Time Receive d Time (Source) Location / / Volume Laterality Blood (Blood, 10/15/2019 7:39 AM 10/15/20 19 8:03 Venous) DEBT AND BUDGET COUNSELOR AM DEBT AND BUDGET COUNSELOR Radha Eastman APRN.N.P., M.S.N. LAB BLOOD ADD-ON Performing Organization Address City/State/[facility] Code Phon e Number [facility] - [address] [address] Laboratories-[address] BUN (Blood Urea Nitrogen) (10/15/2019 7:39 AM DEBT AND BUDGET COUNSELOR) P athologist Signature BUN (Blood Urea 20 8 - 24 10/15/2019 DTL Nitrogen), S mg/dL 9:43 AM DEBT AND BUDGET COUNSELOR Specimen Anatomical Collection Method Collection Time Receive d Time (Source) Location / / Volume Laterality Blood (Blood, 10/15/2019 7:39 AM 10/15/20 19 8:03 Venous) DEBT AND BUDGET COUNSELOR AM DEBT AND BUDGET COUNSELOR Natasha Chai Fagan APRN, C.N.P., M.S.N. LAB BLOOD ADD-ON Performing Organization Address City/[facility] Code Phon e Number [facility] - [address] documented in this encounter Visit Diagnoses Diagnosis Cardiomyopathy Ischemic Chronic Systolic (Congestive) Heart Fail ure (HCC) documented in this encounter Care Teams Macaroni Press Operator Relationship Specialty Start Date End Date Elsewhere, Pcp PCP - General Family Medicine 10/25/18 documented as of this encounter
--- OUTSIDE RECORDS SUMMARY | 2022-08-30 08:40 | XMS_ITS | Encounter Summary ---
:1945 Author Organization [facility] Address [address] [place] [address] Care Team Providers Name Role Phone Elsewhere, Pcp Primary Care Provider Unavailable Reason for Visit Reason Comments Communication med questions Encounter Details Date Type Department Care Team Description 02/14/2020 Clinical Department of Chai Communication (med Communication Cardiovascular Rylan, radha) Medicine in [place], [place] C.N.P., M.S.N. [address] [facility] [address] [place] [phone] Social History Tobacco Use Types Packs/Day Years [...] Telephone Encounter - Michaela Lentz, R.N. - 02/15/2020 3:13 PM CDT RN spoke [...] call. Please call him back on cell [phone]. Thanks, Satish- Electrical Timing Device Calibrator Telephone Encounter - Michaela Lentz R.N. - [...] with a question. He was seen at [facility] by Dr. Currie, and instructed (can see in Care Everywhere- phone consult) to hold his baby Asprin and Plavix for 1 week. He is having some urinary bleeding. He asking if this is Okay? He also is asking to be seen/phone call consult with urology here at [facility]. Please call him back at [phone]. Thank you, Satish- Electrical Timing Device Calibrator documented in this encounter Plan of Treatment Upcoming Encounters Date Type Specialty Care Team Description 10/11/2022 Appointment Laboratory Medicine Natasha Mullins APRN, Radha.N.P., M.S.N. [address] [place] [phone] (Wo rk) 10/11/2022 Ancillary Procedure Cardiovascular Disease Natasha Cramer APRN, C.N.P., M.S.N. [address] [place] [phone] (Wo rk) 10/11/2022 Appointment Cardiovascular Disease Natasha Mullins APRN, C.N.P., M.S.N. [address] [place] [phone] (Wo rk) 10/12/2022 Office Visit Cardiovascular Disease Natasha Mullins APRN, Radha.N.P., M.S.N. [address] [place] [phone] (Wo rk) documented as of this encounter Visit Diagnoses Not on filedocumented in this encounter Care Teams Action Installer Relationship Specialty Start Date End Date Elsewhere, Pcp PCP - General Family Medicine 10/25/18 documented as of this encounter
--- OUTSIDE RECORDS SUMMARY | 2022-08-30 08:40 | XMS_ITS | Encounter Summary ---
:1945 Author Organization [facility] Address [address] [place] [address] Care Team Providers Name Role Phone Elsewhere, Pcp Primary Care Provider Unavailable Encounter Details Date Type Department Care Team Description 04/25/2020 Clinical Communication Division of Dionicio Muniz , Hematology in Dante Garcia M.D. [place], [place] [address] [facility] [address] [place] [phone] [phone] Social History Tobacco Use Types Packs/Day Years [...] Miscellaneous Notes Telephone Encounter - Amy Michel N - 04/25/2020 12:19 PM CDT (Note for [...] no Route reply to: [email or web address] Scheduling Contact Number:[phone] documented in this encounter Plan of Treatment Upcoming Encounters Date Type Specialty Care Team Description 10/11/2022 Appointment Laboratory Medicine Natasha Mullins APRN, Radha.N.P., M.S.N. [address] [place] [phone] (Joanie velázquez) 10/11/2022 Ancillary Procedure Cardiovascular Disease Natasha Cramer APRN, Radha.N.P., M.S.N. [address] [place] [phone] (Joanie velázquez) 10/11/2022 Appointment Cardiovascular Disease Natasha Mullins APRN, Radha.N.P., M.S.N. [address] [place] [phone] (Joanie velázquez) 10/12/2022 Office Visit Cardiovascular Disease Natasha Mullins APRN, Radha.N.P., M.S.N. [address] [place] [address] (Wo rk) documented as of this encounter Visit Diagnoses Not on filedocumented in this encounter Care Teams Entry Level Sales Consultant Relationship Specialty Start Date End Date Elsewhere, Pcp PCP - General Family Medicine 10/25/18 documented as of this encounter
--- OUTSIDE RECORDS SUMMARY | 2022-08-30 08:40 | XMS_ITS | Encounter Summary ---
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 [address] [place], [place] [phone] Referral ID Status Reason Start Date Expiration Date Visits Requ ested Visits Authorized [id number] Closed 09/06/2019 09/05/2020 6 6 Encounter Details Date Type Department Care Team Description 04/28/2020 Hospital Encounter Department of Dionicio Lopez ied B Cell Radiology, Dante Galindo, [facility], in M.D. Nodes Of Multiple [place], [address] [facility] Sites ([facility]) [place], [place] [address] [facility] [address] [place], [place] [phone] (Work) [phone] Social History Tobacco Use Types Packs/Day Years [...] More than 4 times per year 10/15/2019 evangelical services? Do you belong to any clubs [...] Natasha Mullins APRN, C.N.P., M.S.N. [address] [place] [address] (Wo rk) 10/11/2022 Ancillary Procedure Cardiovascular Disease Natasha Cramer APRN, Radha.N.PCarmine, M.S.N. [address] [place] [phone] (Wo rk) 10/11/2022 Appointment Cardiovascular Disease Natasha Mullins APRN, C.N.Jalen, M.S.N. [address] [place] [phone] (Wo rk) 10/12/2022 Office Visit Cardiovascular Disease Natasha Mullins APRN, Radha.N.Franklin., M.S.N. [address] [place] [phone] (Joanie rk) documented as of this encounter [...] RADIOPHARMACEUTICAL/MEDS: Route: intravenous fludeoxyglucose F 18 injection [facility] (FDG F-18),14.81 millicurie TECHNIQUE: ??F-18 FDG PET/CT [...] RADIOPHARMACEUTICAL/MEDS: Route: intravenous fludeoxyglucose F 18 injection [facility] (FDG F-18),14.81 millicurie TECHNIQUE: F-18 FDG PET/CT [...] prior. Dante Muniz M.D. 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
--- OUTSIDE RECORDS SUMMARY | 2022-08-30 08:40 | XMS_ITS | Encounter Summary ---
:1945 Author Organization [facility] Address [address] [place] [address] Care Team Providers Name Role Phone Elsewhere, Pcp Primary Care Provider Unavailable Reason for Referral Outpatient (Routine) - Closed Specialty Diagnoses / Procedures Referred By Contact Refer red To Contact Endocrinology Loni Wu M .D. [facility] [address] [place] [phone] Referral ID Status Reason Start Date Expiration Date Visits Requ ested Visits Authorized [id number] Closed 06/03/2020 06/03/2021 1 1 Outpatient (Routine) - Closed Specialty Diagnoses / Procedures Referred By Contact Refer red To Contact Diagnoses Malignant Neoplasm Of Thyroid (HCC) Loni Wu M.D. [facility] Procedures US Head Neck Soft Tissue [address] [place] [phone] Referral ID Status Reason Start Date Expiration Date Visits Requ ested Visits Authorized [id number] Closed 06/03/2020 06/03/2021 1 1 Reason for Visit Outpatient (Routine) - Closed Specialty Diagnoses / Procedures Referred By Contact Refer red To Contact Endocrinology Loni Wu M .D. [facility] 200 [place], [place] [phone] Referral ID Status Reason Start Date Expiration Date Visits Requ ested Visits Authorized [id number] Closed 09/05/2019 09/04/2020 1 1 Encounter Details Date Type Department Care Team Description 06/03/2020 Office Visit Division of Loni Wu Malignant Neopl asm Of Endocrinology in [place] Love Thyroid (HCC) (Primary [place], [place] [address] [place]) [address] [place] [phone] Social History Tobacco Use Types Packs/Day Years [...] CDT documented in this encounter Progress Notes Lnoi Wu M.D. - 06/03/2020 9:30 AM CDT [...] Natasha Mullins APRN, C.N.P., M.S.N. [address] [place] [phone] (Wo rk) 10/11/2022 Ancillary Procedure Cardiovascular Disease Natasha Cramer APRN, Radha.N.Jalen, M.S.N. [address] [place] [phone] (Wo rk) 10/11/2022 Appointment Cardiovascular Disease Natasha Mullins APRN, C.N.Jalen, M.S.N. [address] [place] [phone] (Wo rk) 10/12/2022 Office Visit Cardiovascular Disease Natasha Mullins APRN, C.N.Jalen, M.S.N. [address] [place] [phone] (Wo rk) Scheduled Referrals Name Type Priority [...] Organization Address City/State/ZIP Code Phon e Number [facility] - [address] [place] [address] [facility] [place] [address] Laboratories-[facility] 200 [facility] (ABNORMAL) T4 (Thyroxine), Free (03/10/2021 9:44 AM CDT) athologist Signature T4 1.9 (H) 0.9 - 1.7 03/10/2021 DTL (Thyroxine), ng/dL 10:51 AM CDT Free, S Specimen Anatomical Collection Method Collection Time Receive d Time (Source) Location / / Volume Laterality Blood (Blood, 03/10/2021 9:44 AM 03/10/20 21 Venous) CDT 10:08 AM CDT Authorizing Provider Result Manuel uW M.D. LAB BLOOD ADD-ON Performing Organization Address City/State/ZIP Code Phon e Number [facility] - [address] [place], [place] [address] [facility] [place] [address] Laboratories-[facility] [address] (ABNORMAL) Thyroglobulin, Tumor Marker (03/10/2021 9:44 AM CDT) [facility] Method Time Signature Thyroglobulin 27 (H) <1.8 IU/mL 03/10/2021 [facility] Antibody, S 2:35 PM CDT Thyroglobulin, 17 (H) ng/mL 03/10/[address] [facility] Tumor Marker, S 2:52 PM CDT Comment: [...] testing methods are immunoenzymatic assays manufactured by [employer] and performed on the Ovonyx DXI 800 . Values obtained from different [...] Organization Address City/State/ZIP Code Phon e Number [facility] [address] [place], [place] [address] SUPPORT CENTER [facility] [place] [address] Laboratory Medicine and Pathology [address] [place] US Head Neck Soft Tissue [...] nopathy otherwise without significant interval change Loni Wu M.D. IMAvila US PROCEDURES documented in this encounter Visit Diagnoses Diagnosis Malignant Neoplasm Of Thyroid (HCC) - Pr imary Malignant Neoplasm Of Thyroid (HCC) documented in this encounter Care Teams Head End Desizing Machine Operator Relationship Specialty Start Date End Date Elsewhere, Pcp PCP - General Family Medicine 10/25/18 documented as of this encounter
--- OUTSIDE RECORDS SUMMARY | 2022-08-30 08:41 | XMS_ITS | Encounter Summary ---
:1945 Author Organization [facility] Address [address] [place] [address] Care Team Providers Name Role Phone Elsewhere, Pcp Primary Care Provider Unavailable Encounter Details Date Type Department Care Team Description 03/27/2019 Documentation Department of MarchWilbert, Otorhinolaryngology in .Carmine [place], [place] [address] [place] [address] Social History Tobacco Use Types Packs/Day [...] I received a note from the patient's behavioral sciences instructor that he is cleared from surgery. The patient has some important dates coming up soon and will get back to us to pick a surgical date. documented in this encounter Plan of Treatment Upcoming Encounters Date Type Specialty Care Team Description 10/11/2022 Appointment Laboratory Medicine Natasha Mullins APRN, C.NRenetta, M.S.N. [address] [place] [phone] (Wo rk) 10/11/2022 Ancillary Procedure Cardiovascular Disease Natasha Cramer APRN, C.NRenetta, M.S.N. [address] [place] [phone] (Wo rk) 10/11/2022 Appointment Cardiovascular Disease Natasha Mullins APRN, C.NRenetta, M.S.N. [address] [place] [phone] (Wo rk) 10/12/2022 Office Visit Cardiovascular Disease Natasha Mullins APRN, Radha.N.Franklin., M.S.N. [address] [place] [phone] (Wo rk) documented as of this encounter Visit Diagnoses Not on filedocumented in this encounter Care Teams Ui Programmer Relationship Specialty Start Date End Date Elsewhere, Pcp PCP - General Family Medicine 10/25/18 documented as of this encounter
--- OUTSIDE RECORDS SUMMARY | 2022-08-30 08:41 | XMS_ITS | Encounter Summary ---
:1945 Author Organization [facility] Address [address] [place] [address] Care Team Providers Name Role Phone Elsewhere, Pcp Primary Care Provider Unavailable Encounter Details Date Type Department Care Team Description 03/21/2019 Orders Only Division of Endocrinology Loni Wu ngestive Heart in [facility] milan Love M.D. Failure (HCC) (Primary [address] Dx) [place], [place] [address] [place], [place] [phone] Social History Tobacco Use Types Packs/Day Years [...] More than 4 times per year 10/15/2019 episcopalian services? Do you belong to any clubs [...] Medicine Natasha Mullins APRN, C.N.P., M.S.N. 200 [place] [address] (Wo rk) 10/11/2022 Ancillary Procedure Cardiovascular Disease Natasha Cramer APRN, C.N.P., M.S.N. [address] [place] [address] [phone] (Wo rk) 10/11/2022 Appointment Cardiovascular Disease Natasha Mullins APRN, DannyNRenetta, M.S.N. [address] [place] [address] [phone] (Joanie rk) 10/12/2022 Office Visit Cardiovascular Disease Natasha Mullins APRN, Radha.NRenetta, M.S.N. [address] [place] [address] [phone] (Joanie rk) documented as of this encounter Visit Diagnoses Diagnosis Congestive Heart Failure (HCC) - Primary documented in this encounter Care Teams Family Assistant Relationship Specialty Start Date End Date Elsewhere, Pcp PCP - General Family Medicine 10/25/18 documented as of this encounter
--- OUTSIDE RECORDS SUMMARY | 2022-08-30 08:41 | XMS_ITS | Encounter Summary ---
:1945 Author Organization [facility] Address [address] [place] [address] Care Team Providers Name Role Phone Elsewhere, Pcp Primary Care Provider Unavailable Reason for Visit Reason Onset Date Comments schedule surgery 03/28/2019 Encounter Details Date Type Department Care Team Description 03/28/2019 Clinical Department of Lilly schedule surge ry Communication Otorhinolaryngology Da marquez [place], [place] [address] [place] [address] Social History Tobacco Use Types Packs/Day [...] or relatives? How often do you attend restoration or More than 4 times per year 10/15/2019 hindu services? Do you belong to any clubs or Yes 10/15/2019 organizations such as restoration groups, unions, fraternal or athletic groups, or [...] testing and start listing Pt phone # [phone] Thank you Letty documented in this encounter Plan of Treatment Upcoming Encounters Date Type Specialty Care Team Description 10/11/2022 Appointment Laboratory Medicine Natasha Mullins APRN, Radha.N.P., M.S.N. [address] [place] [address] [phone] (Wo rk) 10/11/2022 Ancillary Procedure Cardiovascular Disease Natasha Cramer APRN, Radha.N.P., M.S.N. [address] [place] [phone] (Wo rk) 10/11/2022 Appointment Cardiovascular Disease Natasha Mullins APRN, Radha.N.P., M.S.N. [address] [place] [phone] (Wo rk) 10/12/2022 Office Visit Cardiovascular Disease Natasha Mullins APRN, C.N.P., M.S.N. [address] [place] [phone] (Wo rk) documented as of this encounter Visit Diagnoses Not on filedocumented in this encounter Care Teams Hl7 Interface Developer Relationship Specialty Start Date End Date Elsewhere, Pcp PCP - General Family Medicine 10/25/18 documented as of this encounter
--- OUTSIDE RECORDS SUMMARY | 2022-08-30 08:41 | XMS_ITS | Encounter Summary ---
:[address] [facility] Address [address] [place] [address] Care Team Providers Name Role Phone Elsewhere, Pcp Primary Care Provider Unavailable Encounter Details Date Type Department Care Team Description 03/21/2019 Clinical Communication Division of Dionicio Muniz , Hematology in Dante Garcia M.D. [place], [place] [address] [place] [phone] Social History Tobacco Use Types Packs/Day Years [...] Medicine Natasha Mullins APRN, C.N.P., M.S.N. [address] [place] [phone] (Wo rk) 10/11/2022 Ancillary Procedure Cardiovascular Disease Natasha Cramer APRN, C.N.P., M.S.N. [address] [place] [address] [phone] (Wo rk) 10/11/2022 Appointment Cardiovascular Disease Natasha Mullins APRN, C.NRenetta, M.S.N. [address] [place] [phone] (Wo rk) 10/12/2022 Office Visit Cardiovascular Disease Natasha Mullins APRN, C.NRenetta, M.S.N. [address] [place] [phone] (Wo rk) documented as of this encounter Results Pathology Review of Outside Material (12/30/2015 9:00 AM BENEFITS CONSULTING ANALYST) Component Value Ref Test Analysis Performed At [facility] Range Method Time Signature Material A. [id number]: Bone marrow MAY [facility] Received ? 22 stained slides 9 11:13 LABOR ATORIES [facility] Participated in Citlalli Meyer MLS [facility] the (ASCP) 9 11:13 LABORATORIES Interpretation [facility] Report Ruben Gould D.O., M.S. [facility] LINBASHIR electronically I verify that I have examined all relevant slides/ma terials 9 11:13 LABORATORIES signed by for the specimen(s) and rendered or confirmed the diagnosi s. AM [facility] 9 11:13 LABORATORIES [facility] Interpretation FINAL DIAGNOSIS [facility] Peripheral blood, bone marrow aspirate, biopsy, and clot 9 11:13 LABORATORIES sections ([id number]; collected 12/30/2015): AM [facility] 1. ??Minimal marrow involvement (<5% of total marrow [facility] cellularity) by a low-grade, kappa light chain-restricted [...] left cervical lymph node fine needle aspiration ([facility] case CR [id number] case [id number], part B; collected 12/12/2015, not reviewed) suggesting [...] H-and-E sections is predominantly composed of small IL85-gukqbrby B-cells with fewer admixed CD3-positive T-cells. ??Other [...] Laterality Varies 12/30/2015 9:00 AM 9 2:24 BENEFITS CONSULTING ANALYST PM CDT Narrative This result has an attachment that is no t available. Dante Muniz M.D. LAB SURG PATH ORDERABLE S Performing Organization Address City/State/ZIP Code Phon e Number [facility] - [address] [place] [address] [facility] documented in this encounter Visit Diagnoses Diagnosis Malignant Neoplasm Of Thyroid (HCC) - Pr imary documented in this encounter Care Teams Gerontological Nurse Practitioner Relationship Specialty Start Date End Date Elsewhere, Pcp PCP - General Family Medicine 10/25/18 documented as of this encounter
--- OUTSIDE RECORDS SUMMARY | 2022-08-30 08:41 | XMS_ITS | Encounter Summary ---
:1945 Author Organization [facility] Address [address] [place] [address] Care Team Providers Name Role Phone Elsewhere, Pcp Primary Care Provider Unavailable Reason for Referral Outpatient (Routine) - Closed Specialty Diagnoses / Procedures Referred By Contact Refer red To Contact Cardiovascular Disease Lauren Mullins APRN, C.N.P., M.S.N. [address] [place] [phone] Referral ID Status Reason Start Date Expiration Date Visits Requ ested Visits Authorized [id number] Closed 03/20/2019 03/19/2020 1 1 Encounter Details Date Type Department Care Team Description 03/20/2019 Orders Only Department of Chai Fagan, Cardiomyop athgenaro Ischemic (Primary Dx); Cardiovascular Medicine VY Kaur Con gestive Heart Failure (HCC) in [facility] Justin, M.S.N. [address] [place] [address] 200 [place] [phone] Social History Tobacco Use Types Packs/Day Years [...] More than 4 times per year 10/15/2019 sikhism services? Do you belong to any clubs or Yes 10/15/2019 organizations such as presybeterian groups, unions, [employer] or athletic groups, or school groups? How [...] Medicine Natasha Mullins APRN, Radha.N.PCarmine, M.S.N. [address] [place] [phone] (Joanie rk) 10/11/2022 Ancillary Procedure Cardiovascular Disease Natasha Cramer APRN, Radha.N.P., M.S.N. [address] [place] [phone] (Joanie rk) 10/11/2022 Appointment Cardiovascular Disease Natasha Mullins APRN, Radha.N.P., M.S.N. [address] [place] [phone] (Jaonie rk) 10/12/2022 Office Visit Cardiovascular Disease Natasha Mullins APRN, C.N.P., M.S.N. [address] [place] [phone] (Joanie rk) Scheduled Referrals Name Type Priority Associated Order Schedule Diagnoses Cardiovascular Disease Outpatient Referral Routine Expected: office visit (clinic) 2018 (Approximate), Expires: 03/20/2022 documented as of this encounter Results ECG 12 Lead (03/22/2019 2:14 PM CDT) P athologist Signature Ventricular Rate 65 BPM MUSE ECG/Min NV Interval 180 ms MUSE QRSD Interval 156 ms MUSE QT Interval 432 ms MUSE QTC Interval 449 ms MUSE P Haskell 61 degrees MUSE R Haskell -9 degrees MUSE T Wave Haskell 57 degrees MUSE Specimen Anatomical Collection Method [...] l onger present QRS axis shifted right Natasha Fagan APRN, C.N.P., M.S.N. ECG ORDERA [...] PROCEDURES (ABNORMAL) Sodium (03/22/2019 12:54 PM CDT) [facility], S 132 (L) 135 - 145 03/22/2019 [facility] mmol/L 2:16 PM CDT [facility] Specimen Anatomical Collection Method Collection Time Receive d Time (Source) Location / / Volume Laterality Blood (Blood, 03/22/2019 12:54 03/22/2019 1:12 Venous) PM CDT PM CDT Natasha Fagan APRN, C.N.P., M.S.N. LAB BLOOD ADD-ON Performing Organization Address City/[facility] Code Phon e Number [facility]IES - 200 [place] [address] [facility] Potassium (03/22/2019 12:54 PM CDT) [facility] Potassium, S 5.1 3.6 - 5.2 03/22/2019 [facility] mmol/L 2:16 PM CDT [facility] Specimen Anatomical Collection Method Collection Time Receive d Time (Source) Location / / Volume Laterality Blood (Blood, 03/22/2019 12:54 03/22/2019 1:12 Venous) PM CDT PM CDT Danny Eastman APRNN.Jalen, M.S.N. LAB BLOOD ADD-ON Performing Organization Address City/[facility] Code Phon e Number [facility] - [address] (ABNORMAL) NT-Pro B-Type Natriuretic Peptide (BNP) (03/22/2019 12:54 PM CDT) [facility] NT-Pro BNP 258 (H) <=113 03/22/2019 [facility] pg/mL 2:16 PM CDT [facility] Comment: NT-proBNP values less than 300 [...] M.S.N. LAB BLOOD ADD-ON Performing Organization Address City/[facility] Phon e Number [facility]IES - 200 [place], [place] [address] [facility] Creatinine with Estimated GFR (03/22/2019 12:54 PM CDT) Analysis Performed At Patho logist Time Signature Creatinine 0.89 0.74 - 03/22/2019 [facility] 1.35 mg/dL 2:16 PM CDT LABORATORIES - [facility] eGFR-Non 84 >=60 03/22/2019 [facility] Black/ mL/min/BSA 2:16 PM CDT LABORATORIES - [facility] Comment: ----ADDITIONAL INFORMATION---- Estimated GFR calculated using the 2009 CKD_EPI creatinine equation. eGFR-Black/ >90 >=60 mL/min/BSA 03/22/2019 2:16 [facility] CDT LABORATORIES - [facility] Comment: ----ADDITIONAL INFORMATION---- Estimated GFR calculated using the 2009 CKD_EPI creatinine equation. Specimen Anatomical Collection Method Collection Time Receive d Time (Source) Location / / Volume Laterality Blood (Blood, 03/22/2019 12:54 03/22/2019 1:12 Venous) PM CDT PM CDT Radha Eastman APRN.NLibrado., M.S.N. LAB BLOOD ADD-ON Performing Organization Address City/[facility] Phon e Number [facility]IES - 200 [place], [place] [address] [facility] BUN (Blood Urea Nitrogen) (03/22/2019 12:54 PM CDT) P athologist Signature BUN (Blood 21 8 - 24 03/22/2019 [facility] Urea mg/dL 2:16 PM CDT LABORATORIES - Nitrogen), S [facility] Specimen Anatomical Collection Method Collection Time Receive d Time (Source) Location / / Volume Laterality Blood (Blood, 03/22/2019 12:54 03/22/2019 1:12 Venous) PM CDT PM CDT Danny Eastman APRNNLibrado., M.S.N. LAB BLOOD ADD-ON Performing Organization Address City/State/ZIP Code Phon e Number [facility] - [address] [place], [place] [address] [facility] documented in this encounter Visit Diagnoses Diagnosis Cardiomyopathy Ischemic - Primary Congestive Heart Failure (HCC) Cardiomyopathy Ischemic documented in this encounter Care Teams Billet Assembler Relationship Specialty Start Date End Date Elsewhere, Pcp PCP - General Family Medicine 10/25/18 documented as of this encounter
--- OUTSIDE RECORDS SUMMARY | 2022-08-30 08:41 | XMS_ITS | Encounter Summary ---
:1945 Author Organization [facility] Address [address] [place] [address] Care Team Providers Name Role Phone Elsewhere, Pcp Primary Care Provider Unavailable Reason for Referral Outpatient (Routine) - Closed Specialty Diagnoses / Procedures Referred By Contact Refer red To Contact Otorhinolaryngology Wilbert Child M.D. [address] [phone] Referral ID Status Reason Start Date Expiration Date Visits Requ ested Visits Authorized [id number] Closed 04/18/2019 04/17/2020 1 1 Scheduling Instructions rtn with CHRISTIANO Encounter Details Date Type Department Care Team Description 04/18/2019 Orders Only Department of Wilbert Child Otorhinolaryngology in [place] [address] [phone] Social History Tobacco Use Types Packs/Day [...] Medicine Natasha Mullins APRN, C.N.Jalen, M.S.N. [address] [place] [phone] (Wo rk) 10/11/2022 Ancillary Procedure Cardiovascular Disease Natasha Cramer APRN, Radha.N.PCarmine, M.S.N. [address] [place] [phone] (Wo rk) 10/11/2022 Appointment Cardiovascular Disease Natasha Mullins APRN, C.N.Farnklin., M.S.N. [address] [place] [phone] (Wo rk) 10/12/2022 Office Visit Cardiovascular Disease Natasha Mullins APRN, Radha.N.P., M.S.N. [address] [place] [phone] (Wo rk) Scheduled Referrals Name Type Priority Associated Order Schedule Diagnoses Otorhinolaryngology office Outpatient Routine E xpected: visit (clinic) Referral 06/26/2019 (Approximate), Expires: 04/18/2022 documented as of this encounter Visit Diagnoses Not on filedocumented in this encounter Care Teams Process Inspector Relationship Specialty Start Date End Date Elsewhere, Pcp PCP - General Family Medicine 10/25/18 documented as of this encounter
--- OUTSIDE RECORDS SUMMARY | 2022-08-30 08:41 | XMS_ITS | Encounter Summary ---
:1945 Author Organization [facility] Address 200 [place] [address] Care Team Providers Name Role Phone Elsewhere, Pcp Primary Care Provider Unavailable Reason for Visit Outpatient (Routine) - Closed Specialty Diagnoses / Procedures Referred By Contact Refer red To Contact Cardiovascular Disease Lauren Mullins APRN, C.N.P., M.S.N. 200 [place] [address] Referral ID Status Reason Start Date Expiration Date Visits Requ ested Visits Authorized [id number] Closed 03/20/2019 03/19/2020 1 1 Encounter Details Date Type Department Care Team Description 03/22/2019 Office Visit Department of Chai Fagan, Cardiomyop athgenaro Ischemic (Primary Dx); Cardiovascular Medicine VY Kaur, Cor onary Artery Disease (Unspecified); in [facility] milan Anderson, M.S.N. Chronic Systolic (Congestive) Heart Fail ure (HCC); [address] [facility] [[email or web address]] Malignant Neoplasm Of Thyroid (H[place]) [place] [address] [phone] Social History Tobacco Use Types Packs/Day Years [...] patient on October 25, 2018. He was [place] [employer] functional classone and euvolemic. LV [...] has is 0.1% chance of samy op [place] or cardiac arrest during his procedure. He [...] Natasha Mullins APRN, C.N.P., M.S.N. [address] [place] [address] [phone] (Wo rk) 10/11/2022 Ancillary Procedure Cardiovascular Disease Natasha Cramer APRN, Radha.N.P., M.S.N. [address] [place] [address] [phone] (Wo rk) 10/11/2022 Appointment Cardiovascular Disease Natasha Mullins APRN, Radha.N.Franklin., M.S.N. [address] [place] [phone] (Wo rk) 10/12/2022 Office Visit Cardiovascular Disease Natasha Mullins APRN, Radha.N.Franklin., M.S.N. [address] [place] [phone] (Joanie rk) documented as of this encounter Visit Diagnoses Diagnosis Cardiomyopathy Ischemic - Primary Coronary Artery Disease (Unspecified) Chronic Systolic (Congestive) Heart Fail ure (HCC) Malignant Neoplasm Of Thyroid (HCC) documented in this encounter Care Teams Plastic Welder Relationship Specialty Start Date End Date Elsewhere, Pcp PCP - General Family Medicine 10/25/18 documented as of this encounter
--- OUTSIDE RECORDS SUMMARY | 2022-08-30 08:41 | XMS_ITS | Encounter Summary ---
:1945 Author Organization [facility] Address [address] [place] [address] Care Team Providers Name Role Phone Elsewhere, Pcp Primary Care Provider Unavailable Encounter Details Date Type Department Care Team Description 04/17/2019 Surgery RST ROMB MAIN OR Da Carr Modified Dissection [address] [facility] [place] Neck, [place] [address] indicated. [phone] Social History Tobacco Use Types Packs/Day Years [...] Case IDs Date Procedure Surgeon Location Status [id number] 04/17/19 Modified Dissection Neck, proceed as indicated. [...] with breakfast. documented as of this encounter Progress Notes [...] with endocrinology.May resume plavix in 5 days-04/23/19 JÚNIORT Kun Segura M.D. - 04/18/2019 1:12 AM [...] is with him. Bridget Tradition: Mr. Khanna's confucianist affiliation is Free Mandaeism. Education Trainer Services Information: The patient was provided with information about how to request tool carrier support, the type of support we offer, and that chaplains are available 06/06. Plan: Will remain available for spiritual care as needed or requested. Chaplains can be [facility] [phone] ([place]). documented in this encounter H&P Notes Wilbert [...] monitoring. SURGEON(S) PRIMARY SURGEON: Da Carr M.D. HAIRSPRING VIBRATOR SURGEONS: Wilbert Child M.D. Madhav Mendoza M.D., [...] cc. TPR: [address] Job ID: [id number] Brief Op Note - Wilbert Child M.D. - 04/17/2019 8:17 AM CDT BRIEF OP NOTE Procedure(s) (LRB): Modified Dissection Neck, proceed as indicated. (Left) Surgeon(s) and Role: * Da Carr M.D. - Primary * Madhav Mendoza M.D., M.S. - Other President/[employer] Anesthesia Type: General Pre-Operative Diagnosis: Papillary thyroid [...] 10 Fr. Size (mm): Size (In): Drain [place] Size (mL): 100 mL Number of Sutures Placed: Removal Reason: Estimated Blood Loss No blood loss documented. Implants * No implants in log * Wilbert Child M.D. documented in this encounter Plan of Treatment Upcoming Encounters Date Type Specialty Care Team Description 10/11/2022 Appointment Laboratory Medicine Natasha Mullins APRN, Radha.N.P., M.S.N. [address] [place] [address] [phone] (Joanie velázquez) 10/11/2022 Ancillary Procedure Cardiovascular Disease Natasha Cramer APRN, C.N.P., M.S.N. [address] [place] [address] [phone] (Joanie velázquez) 10/11/2022 Appointment Cardiovascular Disease Natasha Mullins APRN, Radha.N.P., M.S.N. [address] [place] [address] [phone] (Joanie velázquez) 10/12/2022 Office Visit Cardiovascular Disease Natasha Mullins APRN C.N.P., M.S.N. [address] [place] [address] [phone] (Joanie velázquez) documented as of this encounter [...] for frozen and permanent sections. ??Grossed by [facility]. Report Kvng Jane M.D. [phone] 04/19/2019 electronically I verify that I have [...] test was developed and its performance characteri [facility] 04/19/2019 determined by [facility] in a manner consistent with CLIA 4:14 [...] of the left neck lymph nodes at [facility] in [place], [place] (CD3, CD5, CD10, CD20, CD23, BCL2, BCL6, Cyclin D1, kappa and lambda immunoglobulin light chains). Stains demonstrate that the abnormal lymphocytes are TD36-gmscflsm B-cells that co-express BCL2 and show kappa [...] City/State/ZIP Code Phon e Number [facility] - [address] [place], [place] [address] [facility] documented in this encounter Visit Diagnoses [...] - Reason: Other - Comment: recieved in PACU)1594 (Given - Provider: Orville Conner R.N.)2310 (Given - Provider: Katty Almanzar R.N.) 0628 [...] refused) 0629 (Not Given - Provider: Katty A Almanzar, R.N. - Reason: Patient/family refused) 5,000 Units, [...] (COMP LETED) 0748 (Given - Provider: Maggie Abad APRN, COMMERCIAL TIRE SERVICE TECHNICIAN) 1,000 mg (rounded from 1,084.5 mg = [...] 12 hours of last IV dose. premix anthony Dr al Monitoring Program: Pharmacist to adjust medication dosing based on indication and drug clearance factors., Indications: Prophylaxis, surgical zinc gluconate tablet 50 mg 0801 (Not Given - Provider: Orville Conner R.N. [...] Garcia R.N.)1300 (Stopped - Provider: Orville Conner RJackson) 50 [...] PI) (CANCELED) 0806 (Given - Provider: Wilbert Cihld M.D.) As needed, Starting on Tue04/17/19 at [...] 1210 documented in this encounter Care Teams Flat Knitter Helper Relationship Specialty Start Date End Date Elsewhere, Pcp PCP - General Family Medicine 10/25/18 documented as of this encounter
--- OUTSIDE RECORDS SUMMARY | 2022-08-30 08:41 | XMS_ITS | Encounter Summary ---
:1945 Author Organization [facility] Address [address] [place] [address] Care Team Providers Name Role Phone Elsewhere, Pcp Primary Care Provider Unavailable Encounter Details Date Type Department Care Team Description 04/17/2019 Anesthesia Event RST ROMB MAIN OR Kosta Lopes M.D. [address] [place] [phone] 1947 [address] [facility] Maggie Gomez APRN, KARISSA, B.S., M.P.H., M.S.N., B.S.N., R.N. [place], [place] [phone] Anesthesia Record Procedure Summary Procedure Name [...] h andoff to the receiving staff during [facility] we 1. Identified the patient 2. [...] (created via VY Bah CRNA, B.S., VY Bah CRNA, B.S., procedure M.P.H., M.S.N., M.P.H., M.S.N., documentation); Mask B.S.N., R.N. B.S.N., R.N . Ventilation: Easy mask; Type: Standard ETT; Single Lumen Tube Size: 7.5 mm; Cuffed: Yes; Blade Size: MAC 3; Location: Oral; Removal Date: 04/17/19; Removal Time: 1006 (RETIRED) Incision 04/17/19; 932; Neck; 04/17/19932 by [id number] by Left; dermbond; 08/04/21 Elizabeth Dahl, [facility] (Removed by background R.NCarmine nd, Sched uling completion utility); Automated B [facility] Job 1418 (Removed by background completion utility) [...] Procedure Summary Date: 04/17/19 Room / Location: [address] 01 527 / [facility] in [place], [place] Anesthesia Start: 0739 Anesthesia Stop: 103 Procedure: Modified Dissection Neck, proceed as indicated. [...] patient / legal guardian, or through an museum exhibit designer; patient evaluated and approved for anesthesia / sedation. Use of blood products discussed with patient who consented to blood products. Anesthesia Procedure Notes - Maggie Gomez APRN, CRNA - 04/17/2019 8:04 AM CDTAssociated Order(s): Airway [...] Natasha Mullins APRN, C.N.P., M.S.N. [address] [place] [phone] (Wo rk) 10/11/2022 Ancillary Procedure Cardiovascular Disease Natasha Cramer APRN, C.N.P., M.S.N. [address] [place] [phone] (Wo rk) 10/11/2022 Appointment Cardiovascular Disease Natasha Mullins APRN, C.NRenetta, M.S.N. [address] [place] [address] [phone] (Joanie rk) 10/12/2022 Office Visit Cardiovascular Disease Natasha Mullins APRN, C.NRenetta, M.S.N. [address] [place] [phone] (Joanie rk) documented as of this [...] surgical documented in this encounter Care Teams Tree Puller Relationship Specialty Start Date End Date Elsewhere, Pcp PCP - General Family Medicine 10/25/18 documented as of this encounter
--- OUTSIDE RECORDS SUMMARY | 2022-08-30 08:41 | XMS_ITS | Encounter Summary ---
:1945 Author Organization [facility] Address [address] [place] [address] Care Team Providers Name Role Phone Elsewhere, Pcp Primary Care Provider Unavailable Encounter Details Date Type Department Care Team Description 03/22/2019 Hospital Encounter Department of Elzbieta Mullins iomyopathy Radiology, Natasha, CUSTOMER ACCOUNT TECHNICIAN, Ischemic [facility], C.N.P., M.S.N . in [place], [address] [place] [address] [place] [phone] [place], [place] [phone] (Work) [phone] Social History Tobacco Use Types Packs/Day Years [...] Medicine Natasha Mullins APRN, C.N.P., M.S.N. [address] [place] [phone] (Joanie rk) 10/11/2022 Ancillary Procedure Cardiovascular Disease Natasha Cramer APRN, Radha.N.P., M.S.N. [address] [place] [phone] (Joanie rk) 10/11/2022 Appointment Cardiovascular Disease Natasha Mullins APRN, C.N.P., M.S.N. [address] [place] [phone] (Joanie rk) 10/12/2022 Office Visit Cardiovascular Disease Natasha Mullins APRN, Radha.N.P., M.S.N. [address] [place] [phone] (Joanie rk) documented as of this [...] Ischemic documented in this encounter Care Teams Women'S Studies Professor Relationship Specialty Start Date End Date Elsewhere, Pcp PCP - General Family Medicine 10/25/18 documented as of this encounter
--- OUTSIDE RECORDS SUMMARY | 2022-08-30 08:41 | XMS_ITS | Encounter Summary ---
:1945 Author Organization [facility] Address [address] [place] [address] Care Team Providers Name Role Phone Elsewhere, Pcp Primary Care Provider Unavailable Reason for Referral Outpatient (Routine) - Closed Specialty Diagnoses / Procedures Referred By Contact Refer red To Contact Endocrinology Loni Wu M .D. [place] 200 [place] [phone] Referral ID Status Reason Start Date Expiration Date Visits Requ ested Visits Authorized [id number] Closed 06/26/2019 06/25/2020 1 1 Encounter Details Date Type Department Care Team Description 06/26/2019 Orders Only Division of Endocrinology Loni Wu Ma lignant Neoplasm Of in [facility] milan Love M.D. Thyroid (HCC) (Primary 200 [facility] [address] [facility] Dx) [place], [place] [phone] [place], [place] [phone] Social History Tobacco Use Types Packs/Day Years [...] Natasha Mullins APRN, C.N.P., M.S.N. [address] [place] [phone] (Joanie rk) 10/11/2022 Ancillary Procedure Cardiovascular Disease Natasha Cramer APRN, Radha.N.P., M.S.N. [address] [place] [phone] (Joanie rk) 10/11/2022 Appointment Cardiovascular Disease Natasha Mullins APRN, Radha.N.P., M.S.N. [address] [place] [phone] (Joanie rk) 10/12/2022 Office Visit Cardiovascular Disease Natasha Mullins APRN, C.N.P., M.S.N. [address] [place] [phone] (Joanie rk) Scheduled Referrals Name Type [...] M.D. LAB BLOOD ADD-ON Performing Organization Address City/[facility] Phon e Number [facility] - [address] [place], [place] [address] [facility] [place] [address] Laboratories-[facility] [address] (ABNORMAL) Thyroglobulin, Tumor Marker (09/05/2019 10:32 AM CDT) [facility] Method Time Signature Thyroglobulin 19 (H) <4.0 09/05/2019 [facility] Antibody, S IU/mL 3:08 PM CDT Thyroglobulin, 0.3 (H) ng/mL 09/05/2019 [facility] Tumor Marker, S 3:00 PM CDT Comment: ----REFERENCE VALUE---- Athyrotic <0.1 Intact Thyroid <=33 Thyroglobulin Interpretation SEE COMMENT 9 3:08 PM CDT [facility] Comment: Quantitation of thyroglobulin may be [...] testing methods are immunoenzymatic assays manufactured by [employer] and performed on the Bur[employer] DXI 800 . Values obtained from different [...] Address City/State/ZIP Code Phon e Number [facility] [address] [place], [place] [address] [facility] [place] [address] Laboratory Medicine and Pathology [address] [...] Address City/State/ZIP Code Phon e Number [facility] - [address] [place], [place] [address] [place] [address] [facility] [address] documented in this encounter Visit Diagnoses Diagnosis Malignant Neoplasm Of Thyroid (HCC) - Pr imary Malignant Neoplasm Of Thyroid (HCC) documented in this encounter Care Teams Front End Java Developer Relationship Specialty Start Date End Date Elsewhere, Pcp PCP - General Family Medicine 10/25/18 documented as of this encounter
--- OUTSIDE RECORDS SUMMARY | 2022-08-30 08:41 | XMS_ITS | Encounter Summary ---
:[address] [facility] Address [address] [place] [address] Care Team Providers Name Role Phone Elsewhere, Pcp Primary Care Provider Unavailable Reason for Referral Outpatient (Routine) - Closed Specialty Diagnoses / Procedures Referred By Contact Refer red To Contact Otorhinolaryngology Wilbert Child M.D. [address] [phone] Referral ID Status Reason Start Date Expiration Date Visits Requ ested Visits Authorized [id number] Closed 03/28/2019 03/27/2020 1 1 Scheduling Instructions Listing visit with dr benedict Encounter Details Date Type Department Care Team Description 03/28/2019 Orders Only Department of Wilbert Child Otorhinolaryngology in [place] [address] [phone] Social History Tobacco Use Types Packs/Day [...] or relatives? How often do you attend druze or More than 4 times per year 10/15/2019 presybeterian services? Do you belong to any clubs or Yes 10/15/2019 organizations such as druze groups, unions, fraternal or athletic groups, or [...] Medicine Natasha Mullins APRN, Radha.N.Jalen, M.S.N. [address] [place] [phone] (Wo rk) 10/11/2022 Ancillary Procedure Cardiovascular Disease Natasha Cramer APRN, Radha.N.P., M.S.N. [address] [place] [phone] (Wo rk) 10/11/2022 Appointment Cardiovascular Disease Natasha Mullins APRN, Radha.N.P., M.S.N. [address] [place] [phone] (Wo rk) 10/12/2022 Office Visit Cardiovascular Disease Natasha Mullins APRN, Radha.N.P., M.S.N. [address] [place] [phone] (Wo rk) Scheduled Referrals Name Type Priority Associated Order Schedule Diagnoses Otorhinolaryngology office Outpatient Routine E xpected: visit (clinic) Referral 04/16/2019 (Approximate), Expires: 03/28/2022 documented as of this encounter Visit Diagnoses Not on filedocumented in this encounter Care Teams Elevator Mechanic Relationship Specialty Start Date End Date Elsewhere, Pcp PCP - General Family Medicine 10/25/18 documented as of this encounter
--- OUTSIDE RECORDS SUMMARY | 2022-08-30 08:41 | XMS_ITS | Encounter Summary ---
:1945 Author Organization [facility] Address [address] [place] [address] Care Team Providers Name Role Phone Elsewhere, Pcp Primary Care Provider Unavailable Reason for Visit Outpatient (Routine) - Closed Specialty Diagnoses / Procedures Referred By Contact Refer red To Contact Otorhinolaryngology Wilbert Child M.D. [place] 200 [place] [address] Referral ID Status Reason Start Date Expiration Date Visits Requ ested Visits Authorized [id number] Closed 03/28/2019 03/27/2020 1 1 Encounter Details Date Type Department Care Team Description 04/16/2019 Office Visit Department of Yo Carrp ko Otorhinolaryngology in [place] M.D. Of yr [place], [place] ([facility]) (Primary Dx) [address] [place] [phone] Social History Tobacco Use Types Packs/Day [...] on anti-platelet agents. He met with his vice chancellor on 03/22/2019 and he was cleared for [...] breathing, no wheezing or stridor noted. Cardiac: Valle, well-perfused extremities, no signs of cyanosis. ASSESSMENT [...] to proceed tomorrow. CT CT Job ID: [id number] documented in this encounter Plan of Treatment Upcoming Encounters Date Type Specialty Care Team Description 10/11/2022 Appointment Laboratory Medicine Natasha Mullins APRN, Radha.N.P., M.S.N. [address] [place] [phone] (Joanie velázquez) 10/11/2022 Ancillary Procedure Cardiovascular Disease Natasha Craemr APRN, C.N.P., M.S.N. [address] [place] [phone] (Joanie rk) 10/11/2022 Appointment Cardiovascular Disease Natasha Mullins APRN, C.N.P., M.S.N. [address] [place] [phone] (Joanie rk) 10/12/2022 Office Visit Cardiovascular Disease Natasha Mullins APRN, Radha.N.P., M.S.N. 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
--- OUTSIDE RECORDS SUMMARY | 2022-08-30 08:41 | XMS_ITS | Encounter Summary ---
:1945 Author Organization [facility] Address [address] [place] [address] Care Team Providers Name Role Phone Elsewhere, Pcp Primary Care Provider Unavailable Encounter Details Date Type Department Care Team Description 03/21/2019 Lab RST RO LMP Dionicio Muniz, Malignant Neoplasm Of [address] [facility] Dante Garcia M.D. Thyroid (HCC) [place], [place] [address] [place] [phone] [place] [phone] (Wo rk) Social History Tobacco Use Types [...] Medicine Natasha Mullins APRN, C.N.P., M.S.N. [address] [place] [phone] (Wo rk) 10/11/2022 Ancillary Procedure Cardiovascular Disease Natasha Cramer APRN, C.N.P., M.S.N. [address] [place] [address] [phone] (Wo rk) 10/11/2022 Appointment Cardiovascular Disease Natasha Mullins APRN, C.NRenetta, M.S.N. [address] [place] [phone] (Wo rk) 10/12/2022 Office Visit Cardiovascular Disease Natasha Mullins APRN, C.NRenetta, M.S.N. [address] [place] [phone] (Wo rk) documented as of this encounter Procedures Procedure Name Priority Date/Time Associated Diagnosis Comme nts PATHOLOGY REVIEW OF Routine 12/30/2015 9:00 AM Malignant Neopl asm Results for this OUTSIDE MATERIAL TOWER FOREMAN Of Thyroid (HCC) procedu re are in the results section. documented in this encounter Results Pathology Review of Outside Material (12/30/2015 9:00 AM TOWER FOREMAN) Component Value Ref Test Analysis Performed At [facility] gist Range Method Time Signature Material A. [id number]: Bone marrow [facility] Received ? 22 stained slides 9 11:13 LABOR ATORIES [facility] Participated in ROMARIO ConnerS [facility] the (ASCP) 9 11:13 LABORATORIES Interpretation [facility] Report Ruben Gould D.O., M.S. [facility] electronically I verify that I have examined all relevant slides/ma terials 9 11:13 LABORATORIES signed by for the specimen(s) and rendered or confirmed the diagnosi s. AM [facility] 9 11:13 LABORATORIES [facility] Interpretation FINAL DIAGNOSIS [facility] Peripheral blood, bone marrow aspirate, biopsy, and clot 9 11:13 LABORATORIES sections ([id number]; collected 12/30/2015): AM [facility] 1. ??Minimal marrow involvement (<5% of total marrow [facility] cellularity) by a low-grade, kappa light chain-restricted [...] cervical lymph node fine needle aspiration ([facility] case CR [id number] case [id number], part B; collected 12/12/2015, not reviewed) suggesting [...] H-and-E sections is predominantly composed of small SQ28-wxhxpiue B-cells with fewer admixed CD3-positive T-cells. ??Other [...] Laterality Varies 12/30/2015 9:00 AM 9 2:24 TOWER FOREMAN PM CDT Narrative This result has an attachment that is no t available. Dante Muniz M.D. LAB SURG PATH ORDERABLE S Performing Organization Address City/State/ZIP Code Phon e Number [facility] - [address] [place], [place] [address] [facility] documented in this encounter Visit Diagnoses Diagnosis Malignant Neoplasm Of Thyroid (HCC) documented in this encounter Care Teams Bat Boy/Girl Relationship Specialty Start Date End Date Elsewhere, Pcp PCP - General Family Medicine 10/25/18 documented as of this encounter
--- OUTSIDE RECORDS SUMMARY | 2022-08-30 08:41 | XMS_ITS | Encounter Summary ---
:1945 Author Organization [facility] Address [address] [place] [address] Care Team Providers Name Role Phone Elsewhere, Pcp Primary Care Provider Unavailable Reason for Referral Outpatient (Routine) - Closed Specialty Diagnoses / Procedures Referred By Contact Refer red To Contact Endocrinology Loni Wu M .D. [address] [phone] Referral ID Status Reason Start Date Expiration Date Visits Requ ested Visits Authorized [id number] Closed 09/05/2019 09/04/2020 1 1 Reason for Visit Reason Comments Return Visit Outpatient (Routine) - Closed Specialty Diagnoses / Procedures Referred By Contact Refer red To Contact Endocrinology Loni Wu M .D. 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 How often do you attend moravian or More than 4 times per year 10/15/2019 buddhism services? Do you belong to any clubs or Yes 10/15/2019 organizations such as moravian groups, unions, fraternal or athletic groups, or [...] like to follow-up with hematology here at [place]. I told her that I would contact his charge lpn and will send him a copy of this note. I have also asked him to get in touch with his charge lpn to request a follow-up appointment which could potentially be coordinated we his return visit with me in six months or sooner if it is deemed necessary. documented in this encounter Plan of Treatment Upcoming Encounters Date Type Specialty Care Team Description 10/11/2022 Appointment Laboratory Medicine Natasha Mullins APRN, Radha.N.P., M.S.N. [address] [place] [phone] (Joanie rk) 10/11/2022 Ancillary Procedure Cardiovascular Disease Natasha Cramer APRN, Radha.N.P., M.S.N. [address] [place] [phone] (Joanie rk) 10/11/2022 Appointment Cardiovascular Disease Natasha Mullins APRN, C.N.P., M.S.N. [address] [place] [phone] (Joanie rk) 10/12/2022 Office Visit Cardiovascular Disease Natasha Mullins APRN, Radha.N.P., M.S.N. [address] [place] [phone] (Joanie velázquez) Scheduled Referrals Name Type [...] M.D. LAB BLOOD ADD-ON Performing Organization Address [facility] Phon e Number [facility] - [address] (ABNORMAL) T4 (Thyroxine), Free (04/28/2020 8:19 AM CDT) athologist Signature T4 1.9 (H) 0.9 - 1.7 04/28/2020 DTL (Thyroxine), ng/dL 9:20 AM CDT Free, S Specimen Anatomical Collection Method Collection Time Receive d Time (Source) Location / / Volume Laterality Blood (Blood, 04/28/2020 8:19 AM 04/28/20 8:46 Venous) CDT AM CDT Loni Wu M.D. LAB BLOOD ADD-ON Performing Organization Address [facility] Phon e Number [facility] - [address] (ABNORMAL) Thyroglobulin, Tumor Marker (04/28/2020 8:19 AM CDT) Patholo gist Method Time Signature Thyroglobulin 32 (H) <1.8 04/28/2020 [facility] Antibody, S IU/mL 5:50 PM CDT Thyroglobulin, 0.9 (H) ng/mL 04/28/2020 [facility] Tumor Marker, S 5:47 PM CDT Comment: ----REFERENCE VALUE---- Athyrotic <0.1 Intact Thyroid <=33 Thyroglobulin Interpretation SEE COMMENT 0 5:50 PM CDT [facility] Comment: Quantitation of thyroglobulin may [...] testing methods are immunoenzymatic assays manufactured by [employer] and performed on the [employer] DXI 800 . Values obtained from different [...] City/State/ZIP Code Phon e Number [facility] [address] [place] [address] [facility] [place] [address] Laboratory Medicine and Pathology [address] 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
--- OUTSIDE RECORDS SUMMARY | 2022-08-30 08:41 | XMS_ITS | Encounter Summary ---
:[address] [facility] Address [address] [place] [phone] Care Team Providers Name Role Phone Elsewhere, Pcp Primary Care Provider Unavailable Encounter Details Date Type Department Care Team Description 03/22/2019 Hospital Encounter Department of Chai Fagan, Card iomyopathy Ischemic; Laboratory VY Kaur, Congestive Hea rt Failure (HCC) Medicine and C.N.P., M.S.N. Pathology, [place] [address] [place] [address], in [facility] [address] [place] [phone] [place] [address] (Work) [place], [place] [phone] (Fax) [phone] Social History Tobacco Use Types Packs/Day Years [...] tablet Take 81 mg by mouth 0 10/ daily. Take for life. cetirizine (ZyrTEC) 10 [...] Natasha Mullins APRN, C.N.P., M.S.N. [address] [place] [phone] (Joanie velázquez) 10/11/2022 Ancillary Procedure Cardiovascular Disease Natasha Cramer APRN, C.N.P., M.S.N. [address] [place] [phone] (Joanie velázquez) 10/11/2022 Appointment Cardiovascular Disease Natasha Mullins APRN, C.N.P., M.S.N. [address] [place] [phone] (Joanie velázquez) 10/12/2022 Office Visit Cardiovascular Disease Natasha Mullins APRN, Radha.N.P., M.S.N. [address] [place] [phone] (Joanie velázquez) documented as of this [...] S 132 (L) 135 - 145 03/22/2019 [facility] mmol/L 2:16 PM CDT [facility] Specimen Anatomical Collection Method Collection Time Receive d Time (Source) Location / / Volume Laterality Blood (Blood, 03/22/2019 12:54 03/22/2019 1:12 Venous) PM CDT PM CDT Radha Eastman APRN.N.[place]., M.S.N. LAB BLOOD ADD-ON Performing Organization Address City/[facility] Code Phon e Number [facility] LAB[facility]ATORIES - [address] [place] [phone] [facility] Potassium (03/22/2019 12:54 PM CDT) athologist [facility] Potassium, S 5.1 3.6 - 5.2 03/22/2019 [facility] mmol/L 2:16 PM CDT [facility] Specimen Anatomical Collection Method Collection Time Receive d Time (Source) Location / / Volume Laterality Blood (Blood, 03/22/2019 12:54 03/22/2019 1:12 Venous) PM CDT PM CDT Radha Eastman APRN.N.P., M.S.N. LAB BLOOD ADD-ON Performing Organization Address City/[facility] Phon e Number [facility] - [address] [place] [phone] [facility] (ABNORMAL) NT-Pro B-Type Natriuretic Peptide (BNP) (03/22/2019 12:54 PM CDT) athologist Signature NT-Pro BNP 258 (H) <=113 03/22/2019 [facility] pg/mL 2:16 PM CDT [facility] Comment: NT-proBNP values less than [...] Address City/[facility] Phon e Number [facility] - [address] Creatinine with Estimated GFR (03/22/2019 12:54 PM CDT) Analysis Performed At [facility] Time Signature Creatinine 0.89 0.74 - 03/22/2019 [facility] 1.35 mg/dL 2:16 PM CDT LABORATORIES - [facility] eGFR-Non 84 >=60 03/22/2019 [facility] Black/ mL/min/BSA 2:16 PM CDT LABORATORIES - [facility] Comment: ----ADDITIONAL INFORMATION---- Estimated GFR calculated using the 2009 CKD_EPI creatinine equation. eGFR-Black/ >90 >=60 mL/min/BSA 03/22/2019 2:16 [facility] CDT LABORATORIES - [facility] Comment: ----ADDITIONAL INFORMATION---- Estimated GFR calculated using the 2009 CKD_EPI creatinine equation. Specimen Anatomical Collection Method Collection Time Receive d Time (Source) Location / / Volume Laterality Blood (Blood, 03/22/2019 12:54 03/22/2019 1:12 Venous) PM CDT PM CDT Radha Eastman APRN.N.P., M.S.N. LAB BLOOD ADD-ON Performing Organization Address [facility] Phon e Number [facility] - [address] [place] [phone] [facility] BUN (Blood Urea Nitrogen) (03/22/2019 12:54 PM CDT) P athologist Signature BUN (Blood 21 8 - 24 03/22/2019 [facility] Urea mg/dL 2:16 PM CDT LABORATORIES - Nitrogen), S [facility] Specimen Anatomical Collection Method Collection Time Receive d Time (Source) Location / / Volume Laterality Blood (Blood, 03/22/2019 12:54 03/22/2019 1:12 Venous) PM CDT PM CDT Natasha Fagan APRN C.N.P., M.S.N. LAB BLOOD ADD-ON Performing Organization Address City/State/ZIP Code Phon e Number [facility] - [address] [place], [place] [address] [facility] documented in this encounter Visit Diagnoses Diagnosis Cardiomyopathy Ischemic Congestive Heart Failure (HCC) documented in this encounter Care Teams Director Cost Relationship Specialty Start Date End Date Elsewhere, Pcp PCP - General Family Medicine 10/25/18 documented as of this encounter
--- OUTSIDE RECORDS SUMMARY | 2022-08-30 08:41 | XMS_ITS | Encounter Summary ---
:1945 Author Organization [facility] Address [address] [place] [address] Care Team Providers Name Role Phone Elsewhere, [...] Natasha Mullins APRN, C.N.P., M.S.N. [address] [place] [phone] (Joanie velázquez) 10/11/2022 Ancillary Procedure Cardiovascular Disease Natasha Cramer APRN, C.N.P., M.S.N. [address] [place] [phone] (Joanie velázquez) 10/11/2022 Appointment Cardiovascular Disease Natasha Mullins APRN, C.N.P., M.S.N. [address] [place] [phone] (Wo rk) 10/12/2022 Office Visit Cardiovascular Disease Natasha Mullins APRN, C.N.P., M.S.N. [address] [place] [phone] (Wo rk) documented as of this encounter [...] on filedocumented in this encounter Care Teams Supervisor Intermediates Relationship Specialty Start Date End Date Elsewhere, Pcp PCP - General Family Medicine 10/25/18 documented as of this encounter
--- OUTSIDE RECORDS SUMMARY | 2022-08-30 08:41 | XMS_ITS | Encounter Summary ---
:1945 Author Organization [facility] Address [address] [place] [phone] Care Team Providers Name Role Phone Elsewhere, Pcp Primary Care Provider Unavailable Reason for Visit Outpatient (Routine) - Closed Specialty Diagnoses / Procedures Referred By Contact Refer red To Contact Otorhinolaryngology Wilbert Child M.D. [address] [phone] Referral ID Status Reason Start Date Expiration Date Visits Requ ested Visits Authorized [id number] Closed 04/18/2019 04/17/2020 1 1 Encounter Details Date Type Department Care Team Description 06/26/2019 Office Visit Department of Yo Carr Neop lasm Of Thyroid Papillary (HCC) (Primary Dx); Otorhinolaryngology in Da Carballo M.D. Unspe cified B Cell Lymphoma Lymph Nodes Of Multiple Sites (HCC); [place], [place] Follow Up Examination Postop erative Visit [address] [place] [phone] Social History Tobacco Use Types Packs/Day [...] as of this encounter Progress Notes Anai Torres, VY, C.N.P. - 06/26/2019 3:00 PM CDT CHIEF [...] adverse reaction to iodinated contrast given at [facility] in 2006. Visi [address] [...] as indicated.; Surgeon: Da Carr M.D.; Location: [facility] OR ??? THYROID SURGERY ??? TONSILLECTOMY ??? [...] file Gets together: Not on file Attends pentecostal service: Not on file Active member of [...] will contact Dr. Wu in endocrinology and dairy feed worker that the patient's at [facility] for further follow-up related to papillary thyroid [...] Natasha Mullins APRN, C.N.P., M.S.N. [address] [place] [phone] (Joanie velázquez) 10/11/2022 Ancillary Procedure Cardiovascular Disease Natasha Cramer APRN, C.N.P., M.S.N. [address] [place] [phone] (Joanie velázquez) 10/11/2022 Appointment Cardiovascular Disease Natasha Mullins APRN, C.N.P., M.S.N. [address] [place] [phone] (Joanie rk) 10/12/2022 Office Visit Cardiovascular Disease Natasha Mullins APRN, C.N.P., M.S.N. 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
--- OUTSIDE RECORDS SUMMARY | 2022-08-30 08:41 | XMS_ITS | Encounter Summary ---
:1945 Author Organization [facility] Address [address] [place] [address] Care Team Providers Name Role Phone Elsewhere, Pcp Primary Care Provider Unavailable Encounter Details Date Type Department Care Team Description 04/17/2019 - Hospital Encounter [facility] [place], Malignant Neoplasm 04/18/2019 Hospital, [facility] M.D[facility] Of Thyroid [facility], (HCC) (Primary Dx) [facility], Fourth Floor [address] [place] [phone] Social History Tobacco Use Types Packs/Day Years [...] Case IDs Date Procedure Surgeon Location Status [id number] 04/17/19 Modified Dissection Neck, proceed as indicated. [...] is with him. Bridget Tradition: Mr. Khanna's sabianism affiliation is Free Nondenominational. Home [employer] Information: The patient was provided with information about how to request lumber straightened support, the type of support we offer, and that chaplains are available 06/06. Plan: Will remain available for spiritual care as needed or requested. [phone] ([place]). documented in this encounter H&P Notes Wilbert [...] monitoring. SURGEON(S) PRIMARY SURGEON: Da Carr M.D. BOILING OFF WINDER SURGEONS: Wilbert Child M.D. Madhav Mendoza M.D., [...] cc. TPR: [address] Job ID: [id number] Brief Op Note - Wilbert Child M.D. - 04/17/2019 8:17 AM CDT BRIEF OP NOTE Procedure(s) (LRB): Modified Dissection Neck, proceed as indicated. (Left) Surgeon(s) and Role: * Da Carr M.D. - Primary * Madhav Mendoza M.D., M.S. - Other Merchandise Stocker Anesthesia Type: General Pre-Operative Diagnosis: Papillary thyroid [...] 10 Fr. Size (mm): Size (In): Drain Huckabay Size (mL): 100 mL Number of Sutures Placed: Removal Reason: Estimated Blood Loss No blood loss documented. Implants * No implants in log * Wilbert Child M.D. documented in this encounter Plan of Treatment Upcoming Encounters Date Type Specialty Care Team Description 10/11/2022 Appointment Laboratory Medicine Natasha Mullins APRN, C.N.P., M.S.N. [address] [place] [phone] (Joanie velázquez) 10/11/2022 Ancillary Procedure Cardiovascular Disease Natasha Cramer APRN, C.N.P., M.S.N. [address] [place] [phone] (Joanie velázquez) 10/11/2022 Appointment Cardiovascular Disease Natasha Mullins APRN, C.N.P., M.S.N. [address] [place] [phone] (Joanie velázquez) 10/12/2022 Office Visit Cardiovascular Disease Natasha Mullins APRN, C.N.P., M.S.N. [address] [place] [phone] (Joanie velázquez) documented as of this encounter [...] for frozen and permanent sections. ??Grossed by GAC. Report Kvng Jane M.D. [phone] 04/19/2019 electronically I verify that I have [...] was developed and its performance characteri stics 04/19/2019 determined by [facility] in a manner consistent with [...] of the left neck lymph nodes at [facility] in [place], [place] (CD3, CD5, CD10, CD20, CD23, BCL2, BCL6, Cyclin D1, kappa and lambda immunoglobulin light chains). Stains demonstrate that the abnormal lymphocytes are [id number] B-cells that co-express BCL2 and show kappa [...] Code Phon e Number 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
--- OUTSIDE RECORDS SUMMARY | 2022-08-30 08:42 | XMS_ITS | Encounter Summary ---
:1945 Author Organization [facility] Address [address] [place] [address] Care Team Providers Name Role Phone Elsewhere, Pcp Primary Care Provider Unavailable Reason for Visit Reason Onset Date Comments Pre-visit Testing Orders 02/16/2019 Encounter Details Date Type Department Care Team Description 02/16/2019 Clinical Communication Division of Ratna Reese-v isit Testing Endocrinology in [place] Orders [place], [place] [address] [place] [phone] Social History Tobacco Use Types Packs/Day Years [...] Medicine Natasha Mullins APRN, C.N.P., M.S.N. [address] [place] [phone] (Wo rk) 10/11/2022 Ancillary Procedure Cardiovascular Disease Natasha Cramer APRN, Radha.N.Jalen, M.S.N. [address] [place] [phone] (Wo rk) 10/11/2022 Appointment Cardiovascular Disease Natasha Mullins APRN, C.N.Jalen, M.S.N. [address] [place] [phone] (Wo rk) 10/12/2022 Office Visit Cardiovascular Disease Natasha Mullins APRN, DannyNRenetta, M.S.N. [address] [place] [phone] (Joanie rk) documented as of this encounter Results (ABNORMAL) Thyroglobulin, Tumor Marker (03/01/2019 8:45 AM CDT) [facility] Time Signature Thyroglobulin 256 (H) <4.0 03/01/2019 [facility] Antibody, S IU/mL 2:10 PM CDT [facility] Thyroglobulin, 19 (H) ng/mL 03/01/2019 [facility] Tumor Marker, S 2:03 PM CDT [facility] Comment: ----REFERENCE VALUE---- Athyrotic <0.1 Intact Thyroid <=33 Thyroglobulin SEE COMMENT 03/01/2019 2:10 PM CDT [facility] Interpretation [facility] Comment: Quantitation of thyroglobulin may [...] testing methods are immunoenzymatic assays manufactured by [employer] and performed on the Snapt DXI 800 . Values obtained from different [...] M.D. LAB BLOOD ADD-ON Performing Organization Address City/[facility] Phon e Number [facility] [address] [phone] [facility] (ABNORMAL) T4 (Thyroxine), Free (03/01/2019 8:45 AM CDT) [facility] [employer] Method Time Signature T4 1.9 (H) 0.9 - 1.7 03/01/2019 [facility] (Thyroxine), ng/dL 9:[address] [facility] Specimen Anatomical Collection Method Collection Time Receive d Time (Source) Location / / Volume Laterality Blood (Blood, 03/01/2019 8:45 AM 03/01/20 8:51 Venous) CDT AM CDT Yayo Reese M.D. LAB BLOOD ADD-ON Performing Organization Address City/[facility] Phon e Number [place] [phone] [facility] (ABNORMAL) S-TSH (Thyroid-Stimulating Hormone - Sensitive) (03/01/2019 8:45 AM CDT) [facility] [employer] Method Time Signature TSH, Sensitive 0.1 (L) 0.3 - 4.2 03/01/2019 [facility] mIU/L 9:41 AM CDT LABORATORIES - [facility] Specimen Anatomical Collection Method Collection Time Receive d Time (Source) Location / / Volume Laterality Blood (Blood, 03/01/2019 8:45 AM 03/01/20 8:51 Venous) CDT AM CDT Yayo Reese M.D. LAB BLOOD ADD-ON Performing Organization Address City/State/ZIP Code Phon e Number [facility]IES - [address] [place], [place] [address] [facility] US Head Neck Soft Tissue (03/01/2019 8:01 [...] ve disease. Correlate clinically. Yayo Reese M.D. IMA[facility] US PROCEDURES documented in this encounter Visit Diagnoses Diagnosis Cancer Thyroid Papillary Personal Histor y - Primary Cancer Thyroid Papillary Personal Histor y documented in this encounter Care Teams Card Fixer Relationship Specialty Start Date End Date Elsewhere, Pcp PCP - General Family Medicine 10/25/18 documented as of this encounter
--- OUTSIDE RECORDS SUMMARY | 2022-08-30 08:42 | XMS_ITS | Encounter Summary ---
:1945 Author Organization [facility] Address [address] [place] [address] Care Team Providers Name Role Phone Elsewhere, Pcp Primary Care Provider Unavailable Encounter Details Date Type Department Care Team Description 10/25/2018 Hospital Encounter Department of Chai Fagan, [facility] Heart ([facility]) Laboratory Medicine VY Kaur, and Pathology, C.N.PCarmine, M.S.[facility] in [address] [place] [phone] [place] [address] [place], [place] (Work) [phone] Social History Tobacco Use Types Packs/Day Years [...] Natasha Mullins APRN, C.N.P., M.S.N. [address] [place] [address] (Wo rk) 10/11/2022 Ancillary Procedure Cardiovascular Disease Natasha Cramer APRN, C.NRenetta, M.S.N. [address] [place] [phone] (Wo rk) 10/11/2022 Appointment Cardiovascular Disease Natasha Mullins APRN, C.N.P., M.S.N. [address] [place] [phone] (Joanie rk) 10/12/2022 Office Visit Cardiovascular Disease Natasha Mullins APRN, C.NRenetta, M.S.N. [address] [place] [phone] (Joanie rk) documented as of this encounter Procedures Procedure Name Priority Date/Time Associated Comments Diagnosis LIPID PANEL, S Routine 10/25/2018 6:51 Failure Heart Results f or this AM FABRIC WORKER FITTER (HCC) procedure are i n the results section. CBC WITHOUT Routine 10/25/2018 6:51 Failure Heart Results for this DIFFERENTIAL, B AM FABRIC WORKER FITTER (HCC) procedure ar e in the results section. BUN (BLOOD UREA Routine 10/25/2018 6:51 Failure Heart Results for this NITROGEN), S/P AM FABRIC WORKER FITTER (HCC) procedure are in the results section. ASPARTATE Routine 10/25/2018 6:51 Failure Heart Results for this AMINOTRANSFERASE (AST), AM FABRIC WORKER FITTER (HCC) proc edure are in S/P the results section. THYROID-STIMULATING Routine 10/25/2018 6:51 Failure Heart Resu lts for this HORMONE-SENSITIVE AM FABRIC WORKER FITTER (HCC) procedure are in (S-TSH) the results section. SODIUM, S/P Routine 10/25/2018 6:51 Failure Heart Results for this AM FABRIC WORKER FITTER (HCC) procedure are i n the results section. POTASSIUM, S/P Routine 10/25/2018 6:51 Failure Heart Results f or this AM FABRIC WORKER FITTER (HCC) procedure are i n the results section. CREATININE WITH EGFR, Routine 10/25/2018 6:51 Failure Heart Re sults for this S/P AM FABRIC WORKER FITTER (HCC) procedure are i n the results section. documented in this encounter Results (ABNORMAL) Lipid Panel (10/25/2018 6:51 AM FABRIC WORKER FITTER) [facility] Method Time Signature Cholesterol, 202 (H) mg/dL 10/25/2018 [facility] Total 7:56 AM [facility] Comment: ----REFERENCE VALUE---- Desirable: < 200 Borderline high: 200 - 239 High: > or = 240 Triglycerides 64 mg/dL 10/25/2018 7:56 AM [facility] Comment: ----REFERENCE VALUE---- Normal: <150 Borderline high: 150-199 High: 200-499 Very high: > or =500 Cholesterol, HDL, S 77 >=40 mg/dL 10/25/2018 7:56 AM FABRIC WORKER FITTER [facility] PUS Calculated LDL 112 mg/dL 10/25/2018 7:56 AM FABRIC WORKER FITTER [facility] PUS Comment: ----REFERENCE VALUE---- Desirable: <100 Above Desirable: 100-129 Borderline high: 130-159 High: 160-189 Very high: > or =190 Cholesterol, Non-HDL, 125 mg/dL 10/25/2018 7:5 6 AM FABRIC WORKER FITTER [facility] Comment: ----REFERENCE VALUE---- Desirable: <130 Above Desirable: 130-159 Borderline high: 160-189 High: 190-219 Very high: > or =220 Specimen Anatomical Collection Method Collection Time Receive d Time (Source) Location / / Volume Laterality Blood (Blood, 10/25/2018 6:51 AM 10/25/20 18 7:13 Venous) FABRIC WORKER FITTER AM FABRIC WORKER FITTER Natasha Fagan APRN C.N.P., M.S.N. LAB BLOOD ADD-ON Performing Organization Address City/State/ZIP Code Phon e Number [facility] LABORATORIES - 200 [employer], [place] [address] [place] (ABNORMAL) S-TSH (Thyroid-Stimulating Hormone - Sensitive) (10/25/2018 6:51 AM [facility]) [facility] Method Time Signature TSH, Sensitive 0.2 (L) 0.3 - 4.2 10/25/2018 [facility] mIU/L 7:56 AM [facility] Specimen Anatomical Collection Method Collection Time Receive d Time (Source) Location / / Volume Laterality Blood (Blood, 10/25/2018 6:51 AM 10/25/20 18 7:13 Venous) FABRIC WORKER FITTER AM FABRIC WORKER FITTER Natasha Fagan APRN, C.N.P., M.S.N. LAB BLOOD ADD-ON Performing Organization Address City/State/ZIP Code Phon e Number [facility] - 200 [place] [address] [place] AST (Aspartate Aminotransferase) (10/25/2018 6:51 AM FABRIC WORKER FITTER) Patholo gist Method Time Signature Aspartate 27 8 - 48 10/25/2018 [facility] Aminotransferase U/L 7:56 AM FABRIC WORKER FITTER LABORATORIE S - (AST), [facility] Specimen Anatomical Collection Method Collection Time Receive d Time (Source) Location / / Volume Laterality Blood (Blood, 10/25/2018 6:51 AM 10/25/20 18 7:13 Venous) FABRIC WORKER FITTER AM FABRIC WORKER FITTER Natasha Fagan APRN, C.N.P., M.S.N. LAB BLOOD ADD-ON Performing Organization Address City/State/ZIP Code Phon e Number [facility] - 200 [place] [address] [place] BUN (Blood Urea Nitrogen) (10/25/2018 6:51 AM FABRIC WORKER FITTER) P athologist Signature BUN (Blood 23 8 - 24 10/25/2018 [facility] Urea mg/dL 7:56 AM FABRIC WORKER FITTER LABORATORIES - Nitrogen), [facility] Specimen Anatomical Collection Method Collection Time Receive d Time (Source) Location / / Volume Laterality Blood (Blood, 10/25/2018 6:51 AM 10/25/20 18 7:13 Venous) FABRIC WORKER FITTER AM FABRIC WORKER FITTER Danny Eastman APRNNLibrado., M.S.N. LAB BLOOD ADD-ON Performing Organization Address City/State/ZIP Code Phon e Number [facility] - [address] [place] [address] [place] Creatinine with Estimated GFR (10/25/2018 6:51 AM FABRIC WORKER FITTER) Analysis Performed At Patho logist Time Signature Creatinine 0.88 0.74 - 10/25/2018 [facility] 1.35 mg/dL 7:56 AM FABRIC WORKER FITTER LABORATORIES - [place] eGFR-Non 84 >=60 10/25/2018 [facility] Black/ mL/min/BSA 7:56 AM FABRIC WORKER FITTER LABORATORIES - [facility] Comment: ----ADDITIONAL INFORMATION---- Estimated GFR calculated using the 2009 CKD_EPI creatinine equation. eGFR-Black/ >90 >=60 mL/min/BSA 10/25/2018 7:56 [facility] Cambodian AM FABRIC WORKER FITTER LABORATORIES - [place] Comment: ----ADDITIONAL INFORMATION---- Estimated GFR calculated using the 2009 CKD_EPI creatinine equation. Specimen Anatomical Collection Method Collection Time Receive d Time (Source) Location / / Volume Laterality Blood (Blood, 10/25/2018 6:51 AM 10/25/20 18 7:13 Venous) FABRIC WORKER FITTER AM FABRIC WORKER FITTER Radha Eastman APRN.NLibrado., M.S.N. LAB BLOOD ADD-ON Performing Organization Address City/[facility] Phon e Number [facility] - [address] [place] [address] [place] Potassium (10/25/2018 6:51 AM FABRIC WORKER FITTER) P athologist Signature Potassium, S 4.6 3.6 - 5.2 10/25/2018 [facility] mmol/L 7:56 AM FABRIC WORKER FITTER LABORATORIES [facility] Specimen Anatomical Collection Method Collection Time Receive d Time (Source) Location / / Volume Laterality Blood (Blood, 10/25/2018 6:51 AM 10/25/20 18 7:13 Venous) FABRIC WORKER FITTER AM FABRIC WORKER FITTER Radha Eastman APRN.N.P., M.S.N. LAB BLOOD ADD-ON Performing Organization Address City/[facility] Phon e Number [facility] - [address] [place] [address] [place] (ABNORMAL) Sodium (10/25/2018 6:51 AM FABRIC WORKER FITTER) P athologist Signature Sodium, S 133 (L) 135 - 145 10/25/2018 [facility] mmol/L 7:56 AM FABRIC WORKER FITTER LABORATORIES [facility] Specimen Anatomical Collection Method Collection Time Receive d Time (Source) Location / / Volume Laterality Blood (Blood, 10/25/2018 6:51 AM 10/25/20 18 7:13 Venous) FABRIC WORKER FITTER AM FABRIC WORKER FITTER Natasha Fagan APRN, C.N.P., M.S.N. LAB BLOOD ADD-ON Performing Organization Address City/[facility] Code Phon e Number [facility] - [address] [place] [address] [place] CBC without Differential (10/25/2018 6:51 AM FABRIC WORKER FITTER) [facility] Method Time Signature Hemoglobin 14.1 13.2 - 10/25/2018 [facility] 16.6 g/dL 7:36 AM FABRIC WORKER FITTER LABORATORIES - [place] Hematocrit 41.6 38.3 - 10/25/2018 [facility] 48.6 % 7:36 AM FABRIC WORKER FITTER LABORATORIES - [place] Erythrocytes 4.48 4.35 - 10/25/2018 [facility] 5.65 7:36 AM FABRIC WORKER FITTER LABORATORIES - x10(12)/L [place] MCV 92.9 78.2 - 10/25/2018 [facility] 97.9 fL 7:36 AM FABRIC WORKER FITTER LABORATORIES - [place] RBC Distrib Width 13.3 11.8 - 10/25/2018 [facility] 14.5 % 7:36 AM FABRIC WORKER FITTER LABORATORIES - [place] Platelet Count 205 135 - 317 10/25/2018 [facility] x10(9)/L 7:36 AM FABRIC WORKER FITTER LABORATORIES - [place] Leukocytes 5.4 3.4 - 9.6 10/25/2018 [facility] x10(9)/L 7:36 AM FABRIC WORKER FITTER LABORATORIES - [place] Specimen Anatomical Collection Method Collection Time Receive d Time (Source) Location / / Volume Laterality Blood (Blood, 10/25/2018 6:51 AM 10/25/20 18 7:13 Venous) FABRIC WORKER FITTER AM FABRIC WORKER FITTER Natasha Fagan APRN, C.N.P., M.S.N. LAB BLOOD ADD-ON Performing Organization Address City/State/ZIP Code Phon e Number [facility] - [address] [place] [address] [place] documented in this encounter Visit Diagnoses Diagnosis Failure Heart (HCC) documented in this encounter Care Teams Wire Fence Builder Relationship Specialty Start Date End Date Elsewhere, Pcp PCP - General Family Medicine 10/25/18 documented as of this encounter
--- OUTSIDE RECORDS SUMMARY | 2022-08-30 08:42 | XMS_ITS | Encounter Summary ---
:1945 Author Organization [facility] Address [address] [place] [address] Care Team Providers Name Role Phone Elsewhere, Pcp Primary Care Provider Unavailable Reason for Visit Outpatient (Routine) - Closed Specialty Diagnoses / Procedures Referred By Contact Refer red To Contact Hematology Diagnoses Malignant Neoplasm Of Thyroid (HCC) Loni Wu M.D. [facility] [address] [place] [phone] Referral ID Status Reason Start Date Expiration Date Visits Requ ested Visits Authorized [id number] Closed 03/16/2019 03/15/2020 1 1 Encounter Details Date Type Department Care Team Description 03/19/2019 Comprehensive Visit Division of [place] Malignan t Neoplasm Hematology in Dante Muniz, Of Thyroid (HCC) Lupillo [place] [address] [address] [facility] [address] [place] [phone] Social History Tobacco Use Types Packs/Day Years [...] CDT documented in this encounter Consult Notes Dante Xiong M.D. - 03/19/2019 10:00 AM CDT [...] as maintaining itself quiescent without treatment since 2015, a proof of concept for its indolent [...] continue to follow up with his local fleece tier and may return to my clinic on [...] this encounter Miscellaneous Notes Addendum Note - Dante Xiong M.D. - 03/19/2019 10:00 AM CDT Addended by: DANTE XIONG on: 03/19/2019 10:45 AM Modules accepted: Orders documented in this encounter Plan of Treatment Upcoming Encounters Date Type Specialty Care Team Description 10/11/2022 Appointment Laboratory Medicine Natasha Mullins APRN, C.N.P., M.S.N. [address] [place] [phone] (Wo rk) 10/11/2022 Ancillary Procedure Cardiovascular Disease Natasha Cramer APRN, Radha.N.PCarmine, M.S.N. [address] [place] [phone] (Wo rk) 10/11/2022 Appointment Cardiovascular Disease Natasha Mullins APRN, Radha.N.P., M.S.N. [address] [place] [phone] (Wo rk) 10/12/2022 Office Visit Cardiovascular Disease Natasha Mullins APRN, C.N.Jalen, M.S.N. [address] [place] [phone] (Joanie rk) documented as of this encounter Results Interpretation of Outside NM PET Scan (03/19/2019 10:51 AM CDT) Anatomical Region Laterality Modality Nuclear Medicine PET RST LOS, Nuclear Medicine ARLibby PATE, N/A Nuclear Medicine Nuclear Medicine FLA [facility] Specimen (Source) Anatomical Collection Method Collection [...] but could represent lymphoma. Dante Muniz M.D. IMG NM PROCEDURES documented in this encounter Visit Diagnoses Diagnosis Malignant Neoplasm Of Thyroid (HCC) Malignant Neoplasm Of Thyroid (HCC) documented in this encounter Care Teams Automatic Fabric Cutter Relationship Specialty Start Date End Date Elsewhere, Pcp PCP - General Family Medicine 10/25/18 documented as of this encounter
--- OUTSIDE RECORDS SUMMARY | 2022-08-30 08:42 | XMS_ITS | Encounter Summary ---
:1945 Author Organization [facility] Address [address] [place] [address] Care Team Providers Name Role Phone Elsewhere, Pcp Primary Care Provider Unavailable Encounter Details Date Type Department Care Team Description 10/25/2018 Hospital Encounter Department of Chai Fagan [facility] ([facility]) Radiology, [facility], in C.N.P., [facility], [address] [place] [address] [place] [phone] [place], [place] [phone] (Work) [phone] Social History Tobacco Use Types Packs/Day Years [...] More than 4 times per year 10/15/2019 mu-ism services? Do you belong to any clubs [...] Natasha Mullins APRN, C.N.P., M.S.N. [address] [place] [address] (Wo rk) 10/11/2022 Ancillary Procedure Cardiovascular Disease Natasha Cramer APRN, C.N.P., M.S.N. [address] [place] [phone] (Joanie velázquez) 10/11/2022 Appointment Cardiovascular Disease Natasha Mullins APRN, C.N.P., M.S.N. [address] [place] [phone] (Joanie velázquez) 10/12/2022 Office Visit Cardiovascular Disease Natasha Mullins APRN, C.N.P., M.S.N. [address] [place] [phone] (Joanie velázquez) documented as of this encounter Procedures Procedure Name Priority Date/Time Associated Comments Diagnosis DX CHEST AP OR PA RAD - Routine 10/25/2018 7:28 Failure Heart Resul ts for this AND LATERAL 2 (most inpatients AM ADOBE FLEX DEVELOPER (HCC) procedure are in VIEWS and all the results outpatients) section. documented in this encounter Results DX Chest AP or PA and Lateral 2 Views (10/25/2018 7:28 AM ADOBE FLEX DEVELOPER) Anatomical Region Laterality Modality Chest, Thoracic RST LOS, Thoracic ARZ LOS, Thoracic N/A Digital Radiography FLA LOS Specimen (Source) Anatomical Collection Method Collection Time Re ceived Time Location / / Volume Laterality 10/25/2018 8:09 AM ADOBE FLEX DEVELOPER Impressions 10/25/2018 8:10 AM ADOBE FLEX DEVELOPER IMPRESSION: ??Tortuous aorta. Slight scarring left base. Chest otherwise negative. No change since 10/14/2016. Narrative 10/25/2018 8:10 AM ADOBE FLEX DEVELOPER EXAM: ??DX CHEST AP OR PA AND LATERAL 2 VIEWS Procedure Note Dashawn Morataya M.D. - 10/25/2018Format ting of this note might be different from the original. EXAM: DX CHEST AP OR PA AND LATERAL 2 EWS IMPRESSION: Tortuous aorta. Slight scarr ing left base. Chest otherwise negative. No change since 10/14/2016. Natasha Fagan APRN, C.N.P., M.S.N. IMG DIAGNO STIC IMAGING PROCEDURES documented in this encounter Visit Diagnoses Diagnosis Failure Heart (HCC) documented in this encounter Care Teams Director Specialty Relationship Specialty Start Date End Date Elsewhere, Pcp PCP - General Family Medicine 10/25/18 documented as of this encounter
--- OUTSIDE RECORDS SUMMARY | 2022-08-30 08:42 | XMS_ITS | Encounter Summary ---
:1945 Author Organization [facility] Address [address] [place] [address] Care Team Providers Name Role Phone Elsewhere, Pcp Primary Care Provider Unavailable Encounter Details Date Type Department Care Team Description 03/07/2019 Hospital Encounter Department of Loni Wu M.D. [address] [place] [phone] Malignant Neoplasm Of Thyroid (HCC); Radiology, Pierre Contreras M.D. 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 aspirin 81 mg tablet Take 81 mg by mouth 0 [...] Natasha Mullins APRN, C.N.P., M.S.N. [address] [place] [phone] (Joanie rk) 10/11/2022 Ancillary Procedure Cardiovascular Disease Natasha Cramer APRN, Radha.N.P., M.S.N. [address] [place] [phone] (Joanie rk) 10/11/2022 Appointment Cardiovascular Disease Natasha Mullins APRN, C.N.P., M.S.N. [address] [place] [phone] (Joanie rk) 10/12/2022 Office Visit Cardiovascular Disease Natasha Mullins APRN, Radha.N.P., M.S.N. [address] [place] [phone] (Joanie rk) documented as of this [...] care team members, residents, and fellows ion e discussed. TECHNIQUE: Sterile. 1% lidocaine for loc [...] Discussed risks, benefits, alternatives for procedure, an isis obtained informed consent. Patient understands information and [...] Component Value Ref Test Analysis Performed At [facility] Range Method Time Signature Gross A: ?? Received 12 alcohol-fixed smears. 03/09/2019 [facility] Description B: ?? Received 5 alcohol-fixed [...] developed and its performance characteri stics 03/09/2019 [facility] determined by [facility] in a manner consistent with CLIA 2:15 PM LABORATORIES - requirements. This test has not been cleared or approved b y [facility] the U.S. Food and Drug Administration. CAMPUS (A) Source A. Lymph node, Left neck, fine needle aspiration 03/09/2019 [facility] B. Lymph node, Right neck, fine needle aspiration 2:15 PM LABORATORIES - (A) [facility] Report Gabbi Clifford M.D. [phone] 03/09/2019 [facility] electronically I verify that I have examined all relevant slides/ma terials 2:15 PM LABORATORIES - signed by for the specimen(s) and rendered or confirmed the diagnosi s. [facility] Part B seen in consultation with: ??Nafisa Kwon M.D. CAMPUS (A) (A) 03/09/2019 [facility] 2:15 PM LABORATORIES - [facility] Interpretation A. Lymph node, Left neck, fine needle aspiration (sm ears): 03/09/2019 [facility] Positive for malignancy. 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 [facility] B. Lymph node, Right neck, fine needle [...] is a fairly prominent population of small SA51-uamyvlos B-cells that co-express BCL2, very weakly co-express [...] Address City/State/ZIP Code Phon e Number [facility] LABORATORIES - [address] [place] [address] [facility] (ABNORMAL) Thyroglobulin, Tumor Marker, Fine-Needle Aspiration (FNA)-Needle Wash, Lymph Node (03/07/2019 9:35 AM CDT) athologist Signature Thyroglobulin, 2502 (H) <=1.0 03/07/2019 [facility] FNA, Lymph ng/mL 4:06 PM CDT [facility] Comment: Thyroglobulin values >1.0 ng/mL suggests the node contains differentiated follicular cell derived thyroid carcinoma. This result assumes t hyroid tissue and/or patient blood was not inadvertent ly aspirated. This test should be interpreted in the c ontext of the clinical presentation, imaging and cytol ogy findings. ----ADDITIONAL INFORMATION---- This test has been modified from the man ufacturer's instructions. Its performance characteri stics were determined by [facility] in a manner consistent wi CLIA requirements. This test has not been cleared or approv ed by the U.S. Food and Drug Administration. The testing method is an immunoenzymatic assay manufactured by [employer] and performed on [facility] [employer] DxI 800. Values obtained with different assay met hods or kits may be different and cannot be used interchange ably. Test results cannot be interpreted as ab solute evidence for the presence or absence of malignant disease . Site left neck LN 03/07/2019 4:06 PM CDT [facility] Specimen (Source) Anatomical Collection Method Collection Time Re ceived Time Location / / Volume Laterality FNA Needle 03/07/2019 9:35 AM [place] (Lymph CDT Node) Comment: Test for Flow Cytometry Loni Wu M.D. LAB BODY FLUIDS AND STOOLS O RDERABLES Performing Organization Address City/[facility]/ZIP Code Phon e Number [facility] [address] [place] [address] [facility] documented in this encounter [...] 1001 documented in this encounter Care Teams Shingle Trimmer Relationship Specialty Start Date End Date Elsewhere, Pcp PCP - General Family Medicine 10/25/18 documented as of this encounter
--- OUTSIDE RECORDS SUMMARY | 2022-08-30 08:42 | XMS_ITS | Encounter Summary ---
:1945 Author Organization [facility] Address [address] [place] [address] Care Team Providers Name Role Phone Elsewhere, Pcp Primary Care Provider Unavailable Encounter Details Date Type Department Care Team Description 03/19/2019 Ancillary Department of [place] Malignant Neop lasm Procedure Radiology in Dante Muniz, Of Thyroid (HCC) Lupillo Gonzales [place] [address] [address] [facility] [address] [place] [phone] Social History Tobacco Use Types Packs/Day Years [...] Natasha Mullins APRN, C.N.P., M.S.N. [address] [place] [phone] (Wo rk) 10/11/2022 Ancillary Procedure Cardiovascular Disease Natasha Cramer APRN, C.N.P., M.S.N. [address] [place] [address] [place] [phone] (Joanie rk) 10/11/2022 Appointment Cardiovascular Disease Natasha Mullins APRN, C.NRenetta, M.S.N. [address] [place] [phone] (Joanie rk) 10/12/2022 Office Visit Cardiovascular Disease Natasha Mullins APRN, C.NLibrado., M.S.N. [address] [place] [phone] (Joanie rk) documented as of [...] (HCC) documented in this encounter Care Teams Bag Loader Relationship Specialty Start Date End Date Elsewhere, Pcp PCP - General Family Medicine 10/25/18 documented as of this encounter
--- OUTSIDE RECORDS SUMMARY | 2022-08-30 08:42 | XMS_ITS | Encounter Summary ---
:1945 Author Organization [facility] Address [address] [place] [address] Care Team Providers Name Role Phone Elsewhere, Pcp Primary Care Provider Unavailable Encounter Details Date Type Department Care Team Description 03/19/2019 Clinical Communication Department of Chai Fagan, Cardiovascular Medicine VY Kaur, in [facility] milan C.NCarminePCarmine, M.S.N. [address] [facility] [address] [place] [phone] Social History Tobacco Use Types Packs/Day Years [...] Natasha Mullins APRN, C.N.P., M.S.N. [address] [place] [address] [phone] (Joanie velázquez) 10/11/2022 Ancillary Procedure Cardiovascular Disease Natasha Cramer APRN, C.N.P., M.S.N. [address] [place] [address] [phone] (Joanie velázquez) 10/11/2022 Appointment Cardiovascular Disease Natasha Mullins APRN, C.N.P., M.S.N. [address] [place] [phone] (Joanie velázquez) 10/12/2022 Office Visit Cardiovascular Disease Natasha Mullins APRN, C.N.P., M.S.N. [address] [place] [address] [phone] (Joanie velázquez) documented as of this encounter Visit Diagnoses Not on filedocumented in this encounter Care Teams Construction Cost Estimator Relationship Specialty Start Date End Date Elsewhere, Pcp PCP - General Family Medicine 10/25/18 documented as of this encounter
--- OUTSIDE RECORDS SUMMARY | 2022-08-30 08:42 | XMS_ITS | Encounter Summary ---
:1945 Author Organization [facility] Address [address] [place] [address] Care Team Providers Name Role Phone Elsewhere, Pcp Primary Care Provider Unavailable Encounter Details Date Type Department Care Team Description 03/01/2019 Lab Department of Laboratory Pamela Reese, Cancer Thyroid Papillary Medicine and Pathology, [facility], in [place], [place] [address] [place] [phone] Social History Tobacco Use Types Packs/Day [...] Medicine Natasha Mullins APRN, C.N.P., M.S.N. [address] [place] [address] [phone] (Joanie velázquez) 10/11/2022 Ancillary Procedure Cardiovascular Disease Natasha Cramer APRN, C.N.P., M.S.N. [address] [place] [address] [phone] (Joanie velázquez) 10/11/2022 Appointment Cardiovascular Disease Natasha Mullins APRN, Radha.N.P., M.S.N. [address] [place] [address] [phone] (Wo rk) 10/12/2022 Office Visit Cardiovascular Disease Natasha Mullins APRN, C.N.Franklin., M.S.N. [address] [place] [address] [phone] (Wo rk) documented as of this encounter [...] At Signature Thyroglobulin, 37 (H) Athyrotic 03/05/[address] [facility] Intensive Care Ambulance Paramedic., S <0.5, 12:[address] thyroid SUPPORT <=33 ng/mL CENTER Interpretation Thyroglobulin (Tg) levels must be interpreted in the 03/05/[address] [facility] context of TSH levels, serial Tg measurements [...] performa nce characteristics determined by [facility] in a manner consistent with CLIA [...] Number [facility] SUPERIOR [facility] [address] [place], [place] [address] SUPPORT GRAY (ABNORMAL) Thyroglobulin, Tumor Marker (03/01/2019 8:45 AM CDT) [facility] Method Time Signature Thyroglobulin 256 (H) <4.0 03/01/[address] [facility] Antibody, S IU/mL 2:10 PM CDT [facility] Thyroglobulin, 19 (H) ng/mL 03/01/[address] [facility] Tumor Marker, S 2:03 PM CDT [facility] Comment: ----REFERENCE VALUE---- Athyrotic <0.1 Intact Thyroid <=33 Thyroglobulin SEE COMMENT 03/01/2019 2:10 PM CDT [facility] Interpretation [facility] Comment: Quantitation of thyroglobulin may be [...] testing methods are immunoenzymatic assays manufactured by [employer] and performed on the [employer] DXI 800 . Values obtained from different [...] Organization Address City/[facility]/ZIP [facility] [place] Phon e Number [facility] [address] [place], [place] [address] [facility] (ABNORMAL) T4 (Thyroxine), Free (03/01/2019 8:45 AM CDT) [facility] Method Time Signature T4 1.9 (H) 0.9 - 1.7 03/01/[address] [facility] (Thyroxine), ng/dL 9:41 AM CDT LABORATORIES [facility], [facility] Specimen Anatomical Collection Method Collection Time Receive d Time (Source) Location / / Volume Laterality Blood (Blood, 03/01/2019 8:45 AM 03/01/20 8:51 Venous) CDT AM CDT Yayo Reese M.D. LAB BLOOD ADD-ON Performing Organization Address City/[facility]/ZIP Code Phon e Number [facility] LABORATORIES - [address] [place] [address] [facility] (ABNORMAL) S-TSH (Thyroid-Stimulating Hormone - Sensitive) (03/01/2019 8:45 AM CDT) [facility] Method Time Signature TSH, Sensitive 0.1 (L) 0.3 - 4.2 03/01/[address] [facility] mIU/L 9:41 AM CDT LABORATORIES [facility] Specimen Anatomical Collection Method Collection Time Receive d Time (Source) Location / / Volume Laterality Blood (Blood, 03/01/2019 8:45 AM 03/01/20 8:51 Venous) CDT AM CDT Yayo Reese M.D. LAB BLOOD ADD-ON Performing Organization Address City/[facility] Code Phon e Number [facility] - [address] [place], [place] [address] [facility] documented in this encounter Visit Diagnoses Diagnosis Cancer Thyroid Papillary Personal Histor y documented in this encounter Care Teams Heat Engineering Teacher Relationship Specialty Start Date End Date Elsewhere, Pcp PCP - General Family Medicine 10/25/18 documented as of this encounter
--- OUTSIDE RECORDS SUMMARY | 2022-08-30 08:42 | XMS_ITS | Encounter Summary ---
:1945 Author Organization [facility] Address [address] [place] [address] Care Team Providers Name Role Phone Elsewhere, Pcp Primary Care Provider Unavailable Reason for Referral Outpatient (Routine) - Closed Specialty Diagnoses / Procedures Referred By Contact Refer red To Contact Diagnoses Failure Heart [facility]) [facility] Procedures Echo Transthoracic (TTE) Justin MCCLELLAN, M.S.N. [address] [place] [phone] Referral ID Status Reason Start Date Expiration Date Visits Requ ested Visits Authorized [id number] Closed 09/19/2018 09/19/2019 1 1 ER AIRCRAFT Reason for Visit Outpatient (Routine) - Closed Specialty Diagnoses / Procedures Referred By Contact Refer red To Contact Diagnoses Failure Heart (HCC) [facility] Procedures Echo Transthoracic (TTE) Justin MCCLELLAN, M.S.N. [address] [place] [phone] Referral ID Status Reason Start Date Expiration Date Visits Requ ested Visits Authorized [id number] Closed 09/19/2018 09/19/2019 1 1 Encounter Details Date Type Department Care Team Description 10/25/2018 Hospital Department of Bry Mullins art ([facility]) Encounter Cardiovascular VY Kaur, Diseases in [place], C.N.P., M .S.N. [place] [address] [facility] [address] [place] [phone] Social History Tobacco Use Types Packs/Day Years [...] Natasha Mullins APRN, C.N.P., M.S.N. [address] [place] [phone] (Joanie velázquez) 10/11/2022 Ancillary Procedure Cardiovascular Disease Natasha Cramer APRN, C.N.P., M.S.N. [address] [place] [phone] (Joanie velázquez) 10/11/2022 Appointment Cardiovascular Disease GrazNatasha Jenkins APRN, C.NRenetta, M.S.N. [address] [place] [phone] (Wo rk) 10/12/2022 Office Visit Cardiovascular Disease Natasha Mullins APRN, C.NLibrado., M.S.N. [address] [place] [phone] (Joanie rk) documented as of this encounter Procedures Procedure Name Priority Date/Time Associated Diagnosis Comme nts (TTE) 2D ECHO Routine 10/25/2018 10:03 AM Failure Heart (HCC) Results for this DOPPLER COLOR SEALER AIRCRAFT procedure are in the results section. documented in this encounter Results (TTE) 2D ECHO DOPPLER COLOR (10/25/2018 10:03 AM SEALER AIRCRAFT) [facility] gist Method Time Signature Ejection Fraction 50 [...] / / Volume Laterality 10/25/2018 9:17 AM SEALER AIRCRAFT Narrative 10/25/2018 10:32 AM SEALER AIRCRAFT This result has an attachment that is no t available. See PDF For Result Procedure Note Fazal Travis M.D. - 10/25/2018Format ting of this note might be different from the original. See PDF For Result Natasha Fagan APRN, C.N.P., M.S.N. CV ECHO CA OCEDURES documented in this encounter Visit Diagnoses Diagnosis Failure Heart (HCC) documented in this encounter Care Teams Ophthalmic Surgeon Relationship Specialty Start Date End Date Elsewhere, Pcp PCP - General Family Medicine 10/25/18 documented as of this encounter
--- OUTSIDE RECORDS SUMMARY | 2022-08-30 08:42 | XMS_ITS | Encounter Summary ---
:1945 Author Organization [facility] Address [address] [place] [address] Care Team Providers Name Role Phone Elsewhere, Pcp Primary Care Provider Unavailable Reason for Referral Outpatient (Routine) - Closed Specialty Diagnoses / Procedures Referred By Contact Refer red To Contact Endocrinology Loni Wu M .D. [facility] [address] [place] [address] [phone] Referral ID Status Reason Start Date Expiration Date Visits Requ ested Visits Authorized [id number] Closed 03/01/2019 02/29/2020 1 1 Scheduling Instructions In 2 weeks Reason for Visit Appointment Request (Routine) - Closed Specialty Diagnoses / Procedures Referred By Contact Refer red To Contact Endocrinology Referral ID Status Reason Start Date Expiration Date Visits Requ ested Visits Authorized [id number] Closed 02/16/2019 02/16/2020 1 1 Encounter Details Date Type Department Care Team Description 03/01/2019 Comprehensive Visit Division of Loni Wu t Neoplasm Of Thyroid (HCC) (Primary Dx); Endocrinology in [place] 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 Most of the history has been obtained from [facility] Care everywhere. He was diagnosed with papillary [...] PTC. He underwent a total thyroidectomy at [facility] by Dr. Dante Thomas and also had [...] as his local oncologist, Dr. Fairbanks in [place] felt that this was stable and did [...] an ultrasound done this morning here at [place] that shows pathologically enlarged lymph nodes on [...] thyroid cancer metastatic to left lateral neck ([id number]) 3.5 cm primary tumor, status post thyroidectomy [...] on Tuesday. I have checked with his heel reducer who believes it would be safe for [...] Medicine Natasha Mullins APRN, C.N.Jalen, M.S.N. [address] [place] [address] [phone] (Joanie velázquez) 10/11/2022 Ancillary Procedure Cardiovascular Disease Natasha Cramer APRN, Radha.N.P., M.S.N. [address] [place] [phone] (Joanie velázquez) 10/11/2022 Appointment Cardiovascular Disease Natasha Mullins APRN, C.N.P., M.S.N. [address] [place] [phone] (Joanie velázquez) 10/12/2022 Office Visit Cardiovascular Disease Natasha Mullins APRN, C.N.P., M.S.N. [address] [place] [phone] (Joanie velázquez) Scheduled Referrals Name Type [...] Prothrombin Time (PT/INR) (03/07/2019 8:01 AM CDT) [facility] Time Signature Prothrombin 12.1 9.4 - 12.5 03/07/2019 [facility] Time, P sec 8:46 AM [facility] INR 1.1 0.9 - 1.1 03/07/2019 [facility] 8:46 AM [facility] Comment: ----ADDITIONAL INFORMATION---- Standard intensity warfarin therapeutic [...] City/State/ZIP Code Phon e Number [facility] LABORATORIES - [address] [facility] [address] [place], [place] [address] [facility] (ABNORMAL) Comprehensive Metabolic Panel (03/07/2019 8:01 AM CDT) [facility] Signature Potassium, S 4.7 3.6 - 5.2 03/07/2019 [facility] mmol/L 10:35 AM [facility] Sodium, S 132 (L) 135 - 145 03/07/2019 [facility] mmol/L 10:35 AM [facility] Chloride, S 95 (L) 98 - 107 03/07/2019 [facility] mmol/L 10:35 AM CDT LABORATORIES - [facility] Bicarbonate, S 25 22 - 29 03/07/2019 [facility] mmol/L 10:35 AM CDT LABORATORIES - [facility] Anion Gap 12 7 - 15 03/07/2019 [facility] 10:35 AM CDT LABORATORIES - [facility] BUN (Blood Urea 18 8 - 24 03/07/2019 [facility] Nitrogen), S mg/dL 10:35 AM CDT LABORATORIES - [facility] Creatinine 0.89 0.74 - 03/07/2019 [facility] 1.35 10:35 AM CDT LABORATORIES - mg/dL [facility] eGFR-Non 84 >=60 03/07/2019 [facility] Black/ mL/min/BS 10:35 AM CDT LABORATORIES - [place] [facility] Comment: ----ADDITIONAL INFORMATION---- Estimated GFR calculated using the 2009 CKD_EPI creatinine equation. eGFR-Black/ >90 >=60 mL/min/BSA 03/07/2019 10:3 5 [facility] [place] CDT LABORATORIES - [facility] Comment: ----ADDITIONAL INFORMATION---- Estimated GFR calculated using the 2009 CKD_EPI creatinine equation. Calcium, Total, S 9.0 8.8 - 10.2 03/07/2019 10:35 [facility] mg/dL AM CDT LABORATORIES [facility] Glucose, S 107 70 - 140 mg/dL 03/07/2019 10:35 [facility] AM CDT LABORATORIES [facility] Protein, Total, S 6.9 6.3 - 7.9 g/dL 03/07/2019 10:35 [facility] CDT [facility] Albumin, S 4.1 3.5 - 5.0 g/dL 03/07/2019 10:35 [facility] AM CDT LABORATORIES [facility] Aspartate 23 8 - 48 U/L 03/07/2019 10:35 [facility] Aminotransferase (AST), S AM CD[facility] Alkaline Phosphatase, S 94 40 - 129 U/L 03/07/2019 10 :35 [facility] AM CDT LABORATORIES [facility] Alanine Aminotransferase 18 7 - 55 U/L 03/07/2019 10: 35 [facility] (ALT), S AM CDT LABORATORIES [facility] Bilirubin, Total, S 0.4 <=1.2 mg/dL 03/07/2019 10:35 M [facility] AM CDT LABORATORIES - [facility] Specimen Anatomical Collection Method Collection Time Receive d Time (Source) Location / / Volume Laterality Blood (Blood, 03/07/2019 8:01 AM 03/07/20 19 8:24 Venous) CDT AM CDT Loni Wu M.D. LAB BLOOD ADD-ON Performing Organization Address City/[facility]/ZIP Code Phon e Number [facility] LABORATORIES - [address] [place], [place] [address] [facility] 25-Hydroxyvitamin D2 and D3 (03/07/2019 8:01 AM CDT) P athologist Signature 25-Hydroxy D2 <4.0 ng/mL 03/08/2019 [facility] 11:48 AM CDT [facility] 25-Hydroxy D3 48 ng/mL 03/08/2019 [facility] 11:48 AM CDT [facility] CENTER 25-Hydroxy D 48 ng/mL 03/08/2019 [facility] Total 11:48 AM CDT [facility] Comment: ----REFERENCE VALUE---- 25-HYDROXY D TOTAL (D2+D3) Optimum level s in the healthy population are 20-50, patients with bone disease may benefit from higher levels within this r kahill. ----ADDITIONAL INFORMATION---- This test was developed and its performa nce characteristics determined by [facility] in a manner consistent with CLIA requirements. 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
--- OUTSIDE RECORDS SUMMARY | 2022-08-30 08:42 | XMS_ITS | Encounter Summary ---
:1945 Author Organization [facility] Address [address] [place] [address] Care Team Providers Name Role Phone Elsewhere, Pcp Primary Care Provider Unavailable Encounter Details Date Type Department Care Team Description 03/20/2019 Hospital Encounter Department of March, Neha Brown Neoplasm Radiology, Jethro Wesley Of Thyroid ([facility]) Building, in [place], [place] [address] [place] [address] Social History Tobacco Use Types Packs/Day Years [...] Medicine Natasha Mullins APRN, C.N.P., M.S.N. [address] [place] [address] [phone] (Wo rk) 10/11/2022 Ancillary Procedure Cardiovascular Disease Natasha Cramer APRN, C.N.P., M.S.N. [address] [place] [address] [phone] (Wo rk) 10/11/2022 Appointment Cardiovascular Disease Natasha Mullins APRN, Radha.N.Franklin., M.S.N. [address] [place] [phone] (Wo rk) 10/12/2022 Office Visit Cardiovascular Disease Natasha Mullins APRN, Radha.N.Franklin., M.S.N. [address] [place] [phone] (Joanie rk) documented as of this [...] Laterality Modality Neck, Neuroradiology RST LOS, Neuroradiology [facility], N/A Computed Tomography Neuroradiology [facility] Specimen (Source) Anatomical Collection Method Collection [...] to 2.4 cm at left level II (). Multiple less prominen t, noncystic lymph nodes [...] be rel ated to known lymphoma. Wilbert ALVARADO CT PROCEDURES documented in this encounter [...] intravenous, Once in imaging, contrast, Starting on 03/20/19 at 1648, For 1 dose, Imaging Protocol Orders, Dose per Radiant Medication Guidelines sodium chloride (PF) 0.9 % injection 1-1 00 mL Given 03/20/2019 5:17 PM CDT 35 mL 1-100 mL, intravenous, Once, On 03/20/19 at 1700, For 1 dose, Imaging Protocol Orders documented in this encounter Care Teams Salvage Engineering Technician Relationship Specialty Start Date End Date Elsewhere, Pcp PCP - General Family Medicine 10/25/18 documented as of this encounter
--- OUTSIDE RECORDS SUMMARY | 2022-08-30 08:42 | XMS_ITS | Encounter Summary ---
:1945 Author Organization [facility] Address [address] [place] [address] Care Team Providers Name Role Phone Elsewhere, Pcp Primary Care Provider Unavailable Encounter Details Date Type Department Care Team Description 03/19/2019 Orders Only Division of Dionicio Muniz, Lymphoma (HCC) Hematology in Dante Garcia M.D. (Primary Dx) [place], [place] [address] [facility] [address] [place] [phone] Social History Tobacco Use Types Packs/Day Years [...] Medicine Natasha Mullins APRN, C.N.P., M.S.N. 200 [place] [phone] (Wo rk) 10/11/2022 Ancillary Procedure Cardiovascular Disease Natasha Cramer APRN, C.N.P., M.S.N. [address] [place] [address] [phone] (Wo rk) 10/11/2022 Appointment Cardiovascular Disease Natasha Mullins APRN, Radha.NRenetta, M.S.N. [address] [place] [address] [phone] (Wo rk) 10/12/2022 Office Visit Cardiovascular Disease Natasha Mullins APRN, Radha.NRenetta, M.S.N. [address] [place] [address] [phone] (Joanie rk) documented as of this encounter Visit Diagnoses Diagnosis Lymphoma (HCC) - Primary documented in this encounter Care Teams Professional Wrestler Relationship Specialty Start Date End Date Elsewhere, Pcp PCP - General Family Medicine 10/25/18 documented as of this encounter
--- OUTSIDE RECORDS SUMMARY | 2022-08-30 08:42 | XMS_ITS | Encounter Summary ---
:1945 Author Organization [facility] Address [address] [place] [address] Care Team Providers Name Role Phone Elsewhere, Pcp Primary Care Provider Unavailable Encounter Details Date Type Department Care Team Description 03/06/2019 [address] Loni Disla, Hyperlipidemia; [address] [facility] M.D. Chronic Systolic (Congestive) Heart Fail ure (HCC); [place] [address] [address] [facility] Cardiomyopathy Ischemic; [place], [place] Failure Heart (HCC) [address] Social History Tobacco Use Types Packs/Day Years [...] Medicine Natasha Mullins APRN, C.N.P., M.S.N. 200 [place] [address] (Wo rk) 10/11/2022 Ancillary Procedure Cardiovascular Disease Natasha Cramer APRN, C.N.P., M.S.N. 200 [place] [phone] (Wo rk) 10/11/2022 Appointment Cardiovascular Disease Natasha Mullins APRN, C.NRenetta, M.S.N. [address] [place] [phone] (Wo rk) 10/12/2022 Office Visit Cardiovascular Disease Natasha Mullins APRN, C.NRenetta, M.S.N. [address] [place] [phone] (Wo rk) documented as of this encounter Procedures Procedure Name Priority Date/Time Associated Diagnosis Comme nts PATHOLOGY REVIEW OF Routine 12/12/2015 10:16 AM Hyperlip idemia Results for this OUTSIDE MATERIAL SIDE SEAM ENVELOPE MACHINE OPERATOR Chronic Systolic procedu re are in (Congestive) Heart the resul ts Failure (HCC) section. Cardiomyopathy Ischemic Failure Heart (HCC) documented in this encounter Results Pathology Review of Outside Material (12/12/2015 10:16 AM SIDE SEAM ENVELOPE MACHINE OPERATOR) Component Value Ref Test [facility] Range Method Time Signature Material A. [id number]: Right parotid mass and left cervical lymph 03/09/2019 [facility] Received node 4:38 PM LABORATORIES ? 11 stained slides [facility] Report Saúl Leary M.D. 03/09/2019 [facility] electronically I verify that I have examined all relevant slides/ma terials 4:38 PM LABORATORIES signed by for the specimen(s) and rendered or confirmed the diagnosi s. [facility] 03/09/2019 [facility] 4:38 PM LABORATORIES [facility] Interpretation FINAL DIAGNOSIS 03/09/2019 [facility] Right parotid mass, ultrasound-guided fine needle 4:38 PM LABORATORIES aspiration ([id number], part A; 12/12/2015): ??Negative for [facility] malignancy. [facility] Lymph node, left cervical, ultrasound-guided fine needle aspiration ([id number], part B; 12/12/2015): ??Small lymphocytes present with [...] Volume Laterality Varies 12/12/2015 10:16 03/08/2019 AM SIDE SEAM ENVELOPE MACHINE OPERATOR 12:20 PM CDT Narrative This result has an attachment that is no t available. Loni Wu M.D. LAB SURG PATH ORDERABLES Performing Organization Address City/State/ZIP Code Phon e Number [facility] LABORATORIES - [address] [place] [phone] [facility] documented in this encounter Visit Diagnoses Diagnosis Hyperlipidemia Chronic Systolic (Congestive) Heart Fail ure (HCC) Cardiomyopathy Ischemic Failure Heart (HCC) documented in this encounter Care Teams Director Hr Communications Relationship Specialty Start Date End Date Elsewhere, Pcp PCP - General Family Medicine 10/25/18 documented as of this encounter
--- OUTSIDE RECORDS SUMMARY | 2022-08-30 08:42 | XMS_ITS | Encounter Summary ---
:1945 Author Organization [facility] Address [address] [place] [address] Care Team Providers Name Role Phone Elsewhere, Pcp Primary Care Provider Unavailable Reason for Referral Outpatient (Routine) - Closed Specialty Diagnoses / Procedures Referred By Contact Refer red To Contact Otorhinolaryngology Diagnoses Malignant Neoplasm Of Thyroid (HCC) Loni Wu [place] M.D. 200 [place] [address] Referral ID Status Reason Start Date Expiration Date Visits Requ ested Visits Authorized [id number] Closed 03/16/2019 03/15/2020 [address] Carr ONLY Outpatient (Routine) - Closed Specialty Diagnoses / Procedures Referred By Contact Refer red To Contact Hematology Diagnoses Malignant Neoplasm Of Thyroid (HCC) Loni Wu M.D. [address] [phone] Referral ID Status Reason Start Date Expiration Date Visits Requ ested Visits Authorized [id number] Closed 03/16/2019 03/15/2020 1 1 Reason for Visit Reason Comments Return Visit Outpatient (Routine) - Closed Specialty Diagnoses / Procedures Referred By Contact Refer red To Contact Endocrinology Loni Wu M .D. 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 [address] [place] [phone] (Joanie velázquez) 10/11/2022 Ancillary Procedure Cardiovascular Disease Natasha Cramer APRN, Radha.N.P., M.S.N. [address] [place] [phone] (Joanie velázquez) 10/11/2022 Appointment Cardiovascular Disease Natasha Mullins APRN, Radha.N.P., M.S.N. [address] [place] [phone] (Joanie velázquez) 10/12/2022 Office Visit Cardiovascular Disease Natasha Mullins APRN, C.N.P., M.S.N. 200 [place] [address] (Wo rk) Scheduled Referrals Name Type Priority [...] (HCC) documented in this encounter Care Teams Community Support Professional Relationship Specialty Start Date End Date Elsewhere, Pcp PCP - General Family Medicine 10/25/18 documented as of this encounter
--- OUTSIDE RECORDS SUMMARY | 2022-08-30 08:42 | XMS_ITS | Encounter Summary ---
:1945 Author Organization [facility] Address [address] [place] [address] Care Team Providers Name Role Phone Elsewhere, Pcp Primary Care Provider Unavailable Encounter Details Date Type Department Care Team Description 03/06/2019 Clinical Communication Division of Loni Wu Endocrinology in [place], [place] [address] [facility] [address] [place] [phone] Social History Tobacco Use Types Packs/Day Years [...] Natasha Mullins APRN, C.N.P., M.S.N. [address] [place] [phone] (Wo rk) 10/11/2022 Ancillary Procedure Cardiovascular Disease Natasha Cramer APRN, Radha.N.P., M.S.N. [address] [place] [address] [phone] (Wo rk) 10/11/2022 Appointment Cardiovascular Disease Natasha Mullins APRN, C.NRenetta, M.S.N. [address] [place] [address] [phone] (Wo rk) 10/12/2022 Office Visit Cardiovascular Disease Natasha Mullins APRN, C.NRenetta, M.S.N. [address] [place] [phone] (Wo rk) documented as of this encounter Results Pathology Review of Outside Material (12/12/2015 10:16 AM MED ADMIN) Component Value Ref Test Analysis Performed At [facility] [employer] Range Method Time Signature Material A. [id number]: Right parotid mass and left cervical lymph 03/09/[address] [facility] Received node 4:38 PM LABORATORIES ? 11 stained slides [facility] Report Saúl Leary M.D. 03/09/2019 [facility] AMANDA electronically I verify that I have examined all relevant slides/ma terials 4:38 PM LABORATORIES signed by for the specimen(s) and rendered or confirmed the diagnosi s. [facility] 03/09/[address] [facility] 4:38 PM LABORATORIES [facility] Interpretation FINAL DIAGNOSIS 03/09/2019 [facility] Right parotid mass, ultrasound-guided fine needle 4:38 PM LABORATORIES aspiration ([id number], part A; 12/12/2015): ??Negative for [facility] malignancy. [facility] Lymph node, left cervical, ultrasound-guided fine needle aspiration ([id number], part B; 12/12/2015): ??Small lymphocytes present with [...] Volume Laterality Varies 12/12/2015 10:16 03/08/2019 AM MED ADMIN 12:20 PM CDT Narrative This result has an attachment that is no t available. Loni Wu M.D. LAB SURG PATH ORDERABLES Performing Organization Address City/State/ZIP Code Phon e Number [facility] LABORATORIES - [address] [place] [address] 05 [facility] documented in this encounter Visit Diagnoses Diagnosis Hyperlipidemia - Primary Chronic Systolic (Congestive) Heart Fail ure (HCC) Cardiomyopathy Ischemic Failure Heart (HCC) documented in this encounter Care Teams License Registration Examiner Relationship Specialty Start Date End Date Elsewhere, Pcp PCP - General Family Medicine 10/25/18 documented as of this encounter
--- OUTSIDE RECORDS SUMMARY | 2022-08-30 08:42 | XMS_ITS | Encounter Summary ---
:1945 Author Organization [facility] Address [address] [place] [address] Care Team Providers Name Role Phone Elsewhere, Pcp Primary Care Provider Unavailable Encounter Details Date Type Department Care Team Description 03/01/2019 Hospital Encounter Department of [place], Cancer T hyroid Radiology, Jethro Zee M.D. [place], [place] [address] [place] [address] Social History Tobacco Use Types Packs/Day Years [...] or relatives? How often do you attend confucianist or More than 4 times per year 10/15/2019 yazidi services? Do you belong to any clubs or Yes 10/15/2019 organizations such as confucianist groups, unions, fraternal or athletic groups, or [...] Medicine Natasha Mullins APRN, Radha.N.P., M.S.N. [address] [place] [address] [phone] (Wo rk) 10/11/2022 Ancillary Procedure Cardiovascular Disease Natasha Cramer APRN, Radha.N.P., M.S.N. [address] [place] [address] [phone] (Wo rk) 10/11/2022 Appointment Cardiovascular Disease Natasha Mullins APRN, C.N.Franklin., M.S.N. [address] [place] [address] [phone] (Wo rk) 10/12/2022 Office Visit Cardiovascular Disease Natasha Mullins APRN, Radha.N.P., M.S.N. [address] [place] [phone] (Joanie rk) documented as of this [...] to lymphoproliferati ve disease. Correlate clinically. Yayo ALVARADO US PROCEDURES documented in this encounter Visit Diagnoses Diagnosis Cancer Thyroid Papillary Personal Histor y documented in this encounter Care Teams Digital Solution Architect Relationship Specialty Start Date End Date Elsewhere, Pcp PCP - General Family Medicine 10/25/18 documented as of this encounter
--- OUTSIDE RECORDS SUMMARY | 2022-08-30 08:42 | XMS_ITS | Encounter Summary ---
:1945 Author Organization [facility] Address [address] [place] [address] Care Team Providers Name Role Phone Elsewhere, Pcp Primary Care Provider Unavailable Reason for Visit Outpatient (Routine) - Closed Specialty Diagnoses / Procedures Referred By Contact Refer red To Contact Otorhinolaryngology Diagnoses [facility] [place] [address] [place] [address] Referral ID Status Reason Start Date Expiration Date Visits Requ ested Visits Authorized [id number] Closed 03/16/2019 03/15/2020 1 1 Encounter Details Date Type Department Care Team Description 03/20/2019 Comprehensive Visit Department of Lilly matias Otorhinolaryngology in , Wilfred Monreal [place], [place] Thyroid (HCC) [address] [place] [address] Social History Tobacco Use Types Packs/Day [...] or relatives? How often do you attend worship or More than 4 times per year 10/15/2019 jain services? Do you belong to any clubs or Yes 10/15/2019 organizations such as worship groups, unions, fraternal or athletic groups, or [...] breathing, no wheezing or stridor noted. Cardiac: [place], well-perfused extremities, no signs of cyanosis. ASSESSMENT [...] who expressed understanding. CT CT Job ID: [id number] documented in this encounter Plan of Treatment Upcoming Encounters Date Type Specialty Care Team Description 10/11/2022 Appointment Laboratory Medicine Natasha Mullins APRN, C.N.P., M.S.N. [address] [place] [address] [phone] (Joanie rk) 10/11/2022 Ancillary Procedure Cardiovascular Disease Natasha Cramer APRN, Radha.N.P., M.S.N. [address] [place] [phone] (Joanie rk) 10/11/2022 Appointment Cardiovascular Disease Natasha Mullins APRN, C.N.P., M.S.N. [address] [place] [phone] (Joanie rk) 10/12/2022 Office Visit Cardiovascular Disease Natasha Mullins APRN, C.N.P., M.S.N. [address] [place] [phone] (Joanie rk) documented as of this encounter [...] (HCC) documented in this encounter Care Teams Aerospace Project Manager Relationship Specialty Start Date End Date Elsewhere, Pcp PCP - General Family Medicine 10/25/18 documented as of this encounter
--- OUTSIDE RECORDS SUMMARY | 2022-08-30 08:43 | XMS_ITS | Encounter Summary ---
:1945 Author Organization [facility] Address [address] [place] [address] Care Team Providers Name Role Phone Unavailable [...] Natasha Mullins APRN, C.N.P., M.S.N. [address] [place] [phone] (Joanie rk) 10/11/2022 Ancillary Procedure Cardiovascular Disease Natasha Cramer APRN, Radha.N.P., M.S.N. [address] [place] [phone] (Wo rk) 10/11/2022 Appointment Cardiovascular Disease Natasha Mullins APRN, Radha.N.P., M.S.N. [address] [place] [phone] (Wo rk) 10/12/2022 Office Visit Cardiovascular Disease Natasha Mullins APRN, C.N.P., M.S.N. [address] [place] [phone] (Wo rk) documented as of this encounter Visit Diagnoses Not on filedocumented in this encounter
--- OUTSIDE RECORDS SUMMARY | 2022-08-30 08:43 | XMS_ITS | Encounter Summary ---
:1945 Author Organization [facility] Address [address] [place] [address] Care Team Providers Name Role Phone Unavailable Primary Care Provider Unavailable Encounter Details Date Type Department Care Team Description 02/08/2016 Hospital Encounter [facility] ED Kayy Teague M .D. Social History [...] documented in this encounter Discharge Summaries Rosalind Junior R.N. - 02/08/2016 10:18 AM CDT ED Depart Summary [facility] Emergency Department Clinical Discharge Summary PERSON INFORMATION Name MANUEL ADKINS Age 70 Years 1945 12:00 AM Sex Male Language Uruguayan PCP PCP, ELSEWHERE Marital Status Visit Id Visit Reason Episodic recurrent vertigo; Heart issues Specialty Enc Type Emergency Med Service Emergency Medicine Referred by Track Group [facility] ED Discharge 02/08/2016 10:10 AM Tracking Id [id number] Checkout 02/08/2016 10:10 AM Checkin 02/08/2016 7:47 AM Acuity 3 -Urgent Dispo Type * Discharged to Home or Self Care Arrival 02/08/2016 7:47 AM Reg Status Complete LOS 000 02:23 Address: [address] [place] [phone] Comment: PROVIDER INFORMATION Provider Role Provider Contact Time KAYY TEAGUE MD ED Provider 02/08/16 08:00 ROSALIND JUNIOR CHILD & ADOLESCENT PSYCHIATRIST Nurse 02/08/16 08:21 DIAGNOSIS Adverse Effect Drug Sequela; Spells Undifferentiated Comment: PATIENT EDUCATION INFORMATION Instructions: SYMPTOMS WITH UNCERTAIN CAUSE Follow up: With: Address: When: Cardiology Within Tomorrow Comments: Call to inform them of symptoms and to elicit advice regarding carvedilol. Until then go back to your previous dose of carvedilol. Source: [facility] POWERCHART Document Id: [id number] Rosalind Junior RDeloris. - 02/08/2016 10:18 AM CDT ED Discharge Instructions [address] [address] Name: MANUEL ADKINS Date of : 1945 12:00 AM Visit Date: 02/08/2016 7:47 AM [facility] Number: [phone] Address: [address] [place] [phone] Primary Care Provider: PCP, ELSEWHERE IMPORTANT: [facility] in [place] would like to thank you for allowing [...] get worse ?? New symptoms appear ?? [phone] [facility], [address] [place] [address]. All rights reserved. This information is not [...] if you dont have one. Go to [email or web address] and click on Create Your Account. Then, follow the directions to complete the online form. Youll be asked for your [facility] number which you can find [...] arrange a ride home with a responsible constitution party. IJED RONALD JEROME , or responsible constitution party have received this information and my questions have been answered. I have discussed any challenges I see with this plan with the nurse or physician. Patient Signature or Responsible Libertarian/Relationship Date Time Provider Signature Date Time IMPORTANT: [...] arrange a ride home with a responsible constitution party. I, MANUEL ADKINS , or responsible constitution party have received this information and my questions have been answered. I have discussed any challenges I see with this plan with the nurse or physician. Patient Signature or Responsible Libertarian/Relationship Date Time Provider Signature Date Time Source: [facility] POWERCHART Document Id: [id number] documented in this encounter Medications at Time [...] JUNIOR RN - 02/08/2016 10:18 CDT Source: [employer] Document Id: [id number] CDT!3 Rosalind Junior R.N. - 02/08/2016 10:17 [...] JUNIOR RN - 02/08/2016 10:17 CDT Source: [employer] Document Id: [id number] CDT!8 Rosalind Junior R.N. - 02/08/2016 9:40 AM CDT ED Nurse Reassess ED Nurse Reassess Entered On: 02/08/2016 9:40 CDT Performed On: 02/08/2016 9:40 CDT by ROSALIND JUNIOR RN Pain Assessment Pain Symptoms : No ROSALIND JUNIOR RN - 02/08/2016 9:40 CDT Source: [employer] Document Id: [id number] CDT!3 Rosalind Junior R.N. - 02/08/2016 9:39 [...] JUNIOR RN - 02/08/2016 9:39 CDT Source: [employer] Document Id: [id number] CDT!12 Rosalind Junior R.N. - 02/08/2016 9:13 [...] JUNIOR RN - 02/08/2016 9:13 CDT Source: [employer] Document Id: [id number] CDT!18 Kayy Teague M.D. - 02/08/2016 8:22 [...] to speak to his cardiology nurse practitioner Tete Martin.Patient is in agreement with this plan. [...] TEAGUE MD On: 02/08/2016 09:09 AM Source: [facility] [employer]ART Document Id: [id number]} Rosalind Junior R.N. - 02/08/2016 8:00 AM [...] Safety intima Site Condition : No complications ORSALIND JUNIOR RN - 02/08/2016 9:38 CDT Source: [facility] [employer] Document Id: [id number] CDT!12 Rosalind Junior RCarmineN. - 02/08/2016 7:58 [...] PNED ; Probability: 0 ; Diagnosis Code: [id number] Triage Chief Complaint Description : see triage note Mode of Arrival ED : Private vehicle Track : Medical Languages : Uruguayan Treatments Prior to Arrival : None Is Patient Female and 13-50 no hysterectomy : No ROSALIND JUNIOR RN - 02/08/2016 7:58 CDT Pain Assessment Pain Symptoms : No ROSALIND JUNIOR RN - 02/08/2016 7:58 CDT Respiratory Airway [...] JUNIOR RN - 02/08/2016 7:58 CDT Source: [employer] Document Id: [id number] CDT!46 Rosalind Junior R.N. - 02/08/2016 7:54 [...] PNED ; Probability: 0 ; Diagnosis Code: [id number] Triage Chief Complaint Description : 70 year old male admitted to ER wtih complaint of awakening with some dizziness and took bp and it was elevated. Information Given By : Patient Present in Room During Exam/Procedure : Son, Spouse Mode of Arrival ED : Private vehicle Track : Medical Languages : Uruguayan Vital Signs Assessed : Yes Treatments Prior [...] Physician Notification Time : 02/08/2016 7:57 CDT ROSALIND JUNIOR RN - 02/08/2016 7:54 CDT YOAN YOAN Level 1 : No YOAN Level 2 : No YOAN Level 3 : Many Vital Signs YOAN : No ROSALIND JUNIOR RN - 02/08/2016 7:54 CDT DCP GENERIC CODE Tracking Acuity : 3 -Urgent Tracking Group : [facility] ED ROSALIND JUNIOR RN - 02/08/2016 7:54 CDT Allergy (As Of: 02/08/2016 07:58:35 CDT) Allergies (Active) clindamycin Comments: Comment 1: CLINDAMYCIN ; Created By: ContributorMobivitysystemCORKY_KEREN; Reaction Status: Active ; Category: Drug ; Substance: clindamycin ; Type: Unknown ; Updated By: Contributor_systemMATTAngleWareERIKA; Reviewed Date: 02/08/2016 7:58 CDT Contrast Dye Comments: Comment 1: CONTRAST DYE ; Created By: ContributorMobivitysystemCHAGO; Reaction Status: Active ; Category: Other ; Substance: Contrast Dye ; Type: Unknown ; Updated By: ContributorMobivitysystemCHAGO; Reviewed Date: 02/08/2016 7:58 CDT Other Environmental Comments: Comment 1: SEASONAL ALLERGIES ; Created By: ContributorMobivitysystemCHAGO; Reaction Status: Active ; Category: Environment ; Substance: Other Environmental ; Type: Unknown ; Updated By: ContributorMobivitysystemCORKY_KEREN; Reviewed Date: 02/08/2016 7:58 CDT penicillins Comments: Comment 1: PENICILLINS ; Created By: ContributorMobivitysystemCHAGO; Reaction Status: Active ; Category: Drug ; Substance: penicillins ; Type: Unknown ; Updated By: ContributorMobivitysystemCORKY_KEREN; Reviewed Date: 02/08/2016 7:58 CDT ID Screen Drug Resistant Organism : No Travel Within Last 21 Days : No Contact with someone with Ebola : No ROSALIND JUNIOR RN - 02/08/2016 7:54 CDT Immunizations Immunizations Current : Yes Pneumovac : Last 5 years Influenza : This year ROSALIND JUNIOR RN - 02/08/2016 7:54 CDT Source: [facility] [employer] Document Id: [id number] CDT!44 documented in this encounter Miscellaneous Notes Miscellaneous - Rosalind Junior R.N. - 02/08/2016 10:18 AM CDT Valuables/Belongings Valuables/Belongings Entered On: 02/08/2016 10:18 CDT Performed On: 02/08/2016 10:18 CDT by ROSALIND JUNIOR RN Valuables/Belongings Belongings Sent Home With : patient ROSALIND JUNIOR RN - 02/08/2016 10:18 CDT Source: [employer] Document Id: [id number] CDT!3 Miscellaneous - Conversion, Historical Provider Ser - 02/08/2016 10:10 AM CDT Coding Summary-Paper Based CODING DATE: 02/17/2016 FINAL [place] [facility] STATUS: * Discharged to Home or [...] LUCIANO Date Saved: 02/17/2016 08:36 am Source: [employer] Document Id: [id number] Miscellaneous - Rosalind Junior RDeloris. - 02/08/2016 [...] Control : 6 Lynx Visit Level : 34495 Level 3 Treatments Prior to Arrival : None ROSALIND JUNIOR RN - 02/08/2016 10:18 CDT Source: [facility] POWERCHART Document Id: [id number] CDT!19 documented in this encounter Plan of Treatment Upcoming Encounters Date Type Specialty Care Team Description 10/11/2022 Appointment Laboratory Medicine Natasha Mullins APRN, C.N.P., M.S.N. [address] [place] [address] [phone] (Wo rk) 10/11/2022 Ancillary Procedure Cardiovascular Disease Natasha Cramer APRN, C.N.P., M.S.N. [address] [place] [address] [phone] (Wo rk) 10/11/2022 Appointment Cardiovascular Disease Natasha Mullins APRN, Radha.N.P., M.S.N. [address] [place] [phone] (Wo rk) 10/12/2022 Office Visit Cardiovascular Disease Natasha Mullins APRN, Radha.N.Franklin., M.S.N. [address] [place] [phone] (Wo rk) documented as of this [...] 201 6 8:30 CDT AM CDT Kayy eTague M.D. LAB BLOOD ADD-ON Performing Organization Address City/State/ZIP Code Phon e Number POWERCHART (ABNORMAL) CBC with Differential (02/08/2016 8:30 AM CDT) Analysis Performed At Patho logist Time Signature Leukocytes 6.5 3.5 - 10.5 POWERCHART X109L Erythrocytes 4.42 4.32 - POWERCHART 5.72 K4564I Hemoglobin 13.4 (L) 13.5 - POWERCHART 17.5 [...] Performing Organization Address City/[facility]/ZIP Code Phon e Number POWERCHART Troponin T (02/08/2016 [...] POWERCHART MMOLL HXeGFR (MDRD) >60 >=60 POWERCHART [id number] 2 eGFR Black/ >60 >=60 POWERCHART Serbian [id number] 2 Bilirubin, Total, S 0.4 0.1 - [...]
--- OUTSIDE RECORDS SUMMARY | 2022-08-30 08:43 | XMS_ITS | Encounter Summary ---
:1945 Author Organization [facility] Address [address] [place] [address] Care Team Providers Name Role Phone Unavailable Primary Care Provider Unavailable Encounter Details Date Type Department Care Team Description 12/24/2015 Hospital Encounter HX [facility] Fazal Soto M.D., Ph.D. [address] [place], [place] [phone] (Wo rk) Social History [...] Medicine Natasha Mullins APRN, C.N.P., M.S.N. [address] [place] [phone] (Joanie rk) 10/11/2022 Ancillary Procedure Cardiovascular Disease Natasha Cramer APRN, C.N.P., M.S.N. [address] [place] [phone] (Wo rk) 10/11/2022 Appointment Cardiovascular Disease Natasha Mullins APRN, C.N.P., M.S.N. [address] [place] [phone] (Wo rk) 10/12/2022 Office Visit Cardiovascular Disease Natasha Mullins APRN, C.N.P., M.S.N. [address] [place] [phone] (Wo rk) documented as of this encounter Visit Diagnoses Not on filedocumented in this encounter
--- OUTSIDE RECORDS SUMMARY | 2022-08-30 08:43 | XMS_ITS | Encounter Summary ---
:1945 Author Organization [facility] Address [address] [place] [address] Care Team Providers Name Role Phone Unavailable [...] Natasha Mullins APRN, C.N.P., M.S.N. [address] [place] [phone] (Joanie rk) 10/11/2022 Ancillary Procedure Cardiovascular Disease Natasha Cramer APRN, Radha.N.P., M.S.N. [address] [place] [phone] (Wo rk) 10/11/2022 Appointment Cardiovascular Disease Natasha Mullins APRN, Radha.N.P., M.S.N. [address] [place] [phone] (Wo rk) 10/12/2022 Office Visit Cardiovascular Disease Natasha Mullins APRN, C.N.P., M.S.N. [address] [place] [phone] (Wo rk) documented as of this encounter Visit Diagnoses Not on filedocumented in this encounter
--- OUTSIDE RECORDS SUMMARY | 2022-08-30 08:43 | XMS_ITS | Encounter Summary ---
:1945 Author Organization [facility] Address [address] [place] [address] Care Team Providers Name Role Phone Unavailable [...] Natasha Mullins APRN, C.N.P., M.S.N. [address] [place] [phone] (Joanie velázquez) 10/11/2022 Ancillary Procedure Cardiovascular Disease Natasha Cramer APRN, C.N.P., M.S.N. [address] [place] [phone] (Joanie velázquez) 10/11/2022 Appointment Cardiovascular Disease Natasha Mullins APRN, C.N.P., M.S.N. [address] [place] [phone] (Wo rk) 10/12/2022 Office Visit Cardiovascular Disease Natasha Mullins APRN, C.N.P., M.S.N. [address] [place] [phone] (Joanie velázquez) documented as of this encounter Visit Diagnoses Not on filedocumented in this encounter
--- OUTSIDE RECORDS SUMMARY | 2022-08-30 08:43 | XMS_ITS | Encounter Summary ---
:1945 Author Organization [facility] Address [address] [place] [address] Care Team Providers Name Role Phone Unavailable Primary Care Provider Unavailable Encounter Details Date Type Department Care Team Description 08/24/2015 - Hospital Encounter HX RST Yvonne Null, 08/27/2015 M.DCarmine [address] [place] [address] Social History Tobacco Use Types Packs/Day Years [...] 17 08/25/2015 3:15 PM Value from Radha [facility]artplus. CDT Oxygen Saturation - - Inhaled Oxygen [...] Natasha Mullins APRN, C.N.P., M.S.N. [address] [place] [phone] (Joanie velázquez) 10/11/2022 Ancillary Procedure Cardiovascular Disease Natasha Cramer APRN, C.N.P., M.S.N. [address] [place] [phone] (Joanie velázquez) 10/11/2022 Appointment Cardiovascular Disease Natasha Mullins APRN, C.N.P., M.S.N. [address] [place] [phone] (Wo rk) 10/12/2022 Office Visit Cardiovascular Disease Natasha Mullins APRN, C.N.[place]., M.S.N. [address] [place] [phone] (Wo rk) documented as of this encounter [...] 06 :44, No significant change was found [id number]^JR JOANNE GUZMAN^KARL Procedure Note Karl Guzman Jr., M.D. - 02/03/2018For matting of this note might be different from the original. 27Aug2015 06:59 VENTRICULAR RATE 83 Normal sinus rhythm Left anterior fascicular block Possible Anteroseptal infarct ST and T wave abnormality, consider ante rolateral ischemia Prolonged QT When compared with ECG of 25-AUG-2015 06 :44, No significant change was found [id number]^JR JOANNE GUZMAN^KARL Ira Mae M.D. ECG ORDERABLES Performing Organization Address City/State/ZIP Code Phon e Number HX [facility] RADIOLOGY SYSTEM [address] [place] [address], U Magnesium (08/27/2015 5:18 AM CDT) athologist Signature Magnesium, S 2.1 1.7 - 2.3 [facility] MG/DL [facility] Specimen Anatomical Collection Method Collection Time Receive d Time (Source) Location / / Volume Laterality 08/27/2015 5:18 AM 5 5:18 CDT AM CDT Ira Mae M.D. LAB BLOOD ADD-ON Performing Organization Address City/State/ZIP Code Phon e Number [facility] - [address] [place], [place] [address] [facility] Electrolyte (Chem 4) Panel (08/27/2015 5:18 AM CDT) Analysis Performed At Patho logist Time Signature Sodium, S 138 135 - 145 [facility] MMOL/L [facility] Potassium, S 4.1 3.6 - 5.2 [facility] MMOL/L [facility] Creatinine 0.9 0.8 - 1.3 [facility] MG/DL [facility] BUN (Blood Urea 15 8 - 24 [facility] Nitrogen), S MG/DL [facility] Anion Gap 12 7 - 15 [facility] Glucose, S 105 70 - 140 [facility] MG/DL [facility] Chloride, S 103 98 - 107 [facility] MMOL/L [facility] HX Bicarbonate, 23 22 - 29 [facility] P/S MMOL/L [facility] Specimen Anatomical Collection Method Collection Time Receive d Time (Source) Location / / Volume Laterality 08/27/2015 5:18 AM 5 5:18 CDT AM CDT Ira Mae M.D. LAB BLOOD ADD-ON Performing Organization Address City/State/ZIP Code Phon e Number [facility] - [address] [place] [phone] [facility] (ABNORMAL) CBC with Differential (08/27/2015 5:18 AM CDT) [facility] Method Time Signature Erythrocytes 4.27 (L) 4.32 - [facility] 5.72 LABORATORIES - X10(12)/L [facility] MCV 89.5 81.2 - [facility] 95.1 FL LABORATORIES - [facility] Leukocytes 6.2 3.5 - [facility] 10.5 LABORATORIES - X10(9)/L [facility] Neutrophils 3.86 1.70 - [facility] 7.00 LABORATORIES - X10(9)/L [facility] Lymphocytes 1.41 0.90 - [facility] 2.90 LABORATORIES - X10(9)/L [facility] Monocytes 0.74 0.30 - [facility] 0.90 LABORATORIES - X10(9)/L [facility] Hemoglobin 13.0 (L) 13.5 - [facility] 17.5 G/DL LAB[facility]IES - [facility] Hematocrit 38.2 (L) 38.8 - [facility] 50.0 % LAB[facility]ATORIES - [facility] RBC Distrib 13.9 11.8 - [facility] Width 15.6 % [facility] Platelet Count 187 150 - 450 [facility] X10(9)/L [facility]IES - [facility] Eosinophils 0.18 0.05 - [facility] 0.50 LABORATORIES - X10(9)/L [facility] Basophils 0.01 0.00 - [facility] 0.30 LABORATORIES - X10(9)/L [facility] Specimen Anatomical Collection Method Collection Time Receive d Time (Source) Location / / Volume Laterality 08/27/2015 5:18 AM 5 5:18 CDT AM CDT Ira Mae M.D. LAB BLOOD ADD-ON Performing Organization Address City/State/ZIP Code Phon e Number [facility] - [address] [place], [place] [address] [facility] (ABNORMAL) CBC with Differential (08/26/2015 8:11 AM CDT) [facility] gist Method Time Signature Hemoglobin 13.4 (L) 13.5 - [facility] 17.5 G/DL [facility] Hematocrit 39.2 38.8 - [facility] 50.0 % [facility] RBC Distrib 13.6 11.8 - [facility] Width 15.6 % [facility] Platelet Count 188 150 - 450 [facility] X10(9)/L [facility] Lymphocytes 1.43 0.90 - [facility] 2.90 LABORATORIES - X10(9)/L [facility] Monocytes 0.74 0.30 - [facility] 0.90 LABORATORIES - X10(9)/L [facility] Erythrocytes 4.38 4.32 - [facility] 5.72 LABORATORIES - X10(12)/L [facility] MCV 89.5 81.2 - [facility] 95.1 FL [facility]ORATORIES - [facility] Leukocytes 7.2 3.5 - [facility] 10.5 LABORATORIES - X10(9)/L [facility] Neutrophils 4.93 1.70 - [facility] 7.00 LABORATORIES - X10(9)/L [facility] Eosinophils 0.13 0.05 - [facility] 0.50 LABORATORIES - X10(9)/L [facility] Basophils 0.01 0.00 - [facility] 0.30 LABORATORIES - X10(9)/L [facility] Specimen Anatomical Collection Method Collection Time Receive d Time (Source) Location / / Volume Laterality 08/26/2015 8:11 AM 5 8:11 CDT AM CDT Ira Mae M.D. LAB BLOOD ADD-ON Performing Organization Address City/State/ZIP Code Phon e Number [facility] - [address] [place], [place] [address] [facility] ECG 12 Lead (08/25/2015 6:44 AM [...] l onger present QRS axis has changed [id number]^JR JOANNE GUZMAN^KARL Procedure Note Karl Guzman Jr., [...] l onger present QRS axis has changed [id number]^JR JOANNE GUZMAN^KARL Ira Mae M.D. ECG ORDERABLES Performing Organization Address City/State/ZIP Code Phon e Number HX [facility] RADIOLOGY SYSTEM [address] [place] [address], U SA (ABNORMAL) CBC without Differential (08/25/2015 5:35 AM CDT) Patholo gist Method Time Signature Hemoglobin 13.3 (L) 13.5 - [facility] 17.5 G/DL LABORATORIES [facility] Hematocrit 40.3 38.8 - [facility] 50.0 % [facility] RBC Distrib 13.6 11.8 - [facility] Width 15.6 % [facility] Platelet Count 190 150 - 450 [facility] X10(9)/L LABORATORIES [facility] Leukocytes 9.0 3.5 - [facility] 10.5 LABORATORIES - X10(9)/L [facility] Erythrocytes 4.45 4.32 - [facility] 5.72 LABORATORIES - X10(12)/L [facility] MCV 90.6 81.2 - [facility] 95.1 FL LABORATORIES [facility] Specimen Anatomical Collection Method Collection Time Receive d Time (Source) Location / / Volume Laterality 08/25/2015 5:35 AM 5 5:35 CDT AM CDT Lazaro Rivero M.D. LAB BLOOD ADD-ON Performing Organization Address City/State/ZIP Code Phon e Number [facility] - [address] [place], [place] [address] [facility] (ABNORMAL) APTT (Activated Partial Thromboplastin Time) (08/25/2015 5:35 AM CDT) P athologist Signature APTT, P 45 (H) 28 - 38 SEC [facility] Specimen Anatomical Collection Method Collection Time Receive d Time (Source) Location / / Volume Laterality 08/25/2015 5:35 AM 5 5:35 CDT AM CDT Lazaro Rivero M.D. LAB BLOOD ADD-ON Performing Organization Address City/[facility]/ZIP Code Phon e Number [facility] - [address] [place] [phone] [facility] (ABNORMAL) Electrolyte (Chem 4) Panel (08/25/2015 5:35 AM CDT) Patholo gist Method Time Signature Chloride, S 101 98 - 107 [facility] MMOL/L [facility] HX Bicarbonate, 20 (L) 22 - 29 [facility] P/S MMOL/L [facility] Creatinine 0.7 (L) 0.8 - 1.3 [facility] MG/DL [facility] BUN (Blood Urea 17 8 - 24 [facility] Nitrogen), S MG/DL [facility] Sodium, S 136 135 - 145 [facility] MMOL/L [facility] Potassium, S 4.4 3.6 - 5.2 [facility] MMOL/L [facility] Anion Gap 15 7 - 15 [facility] Glucose, S 141 (H) 70 - 140 [facility] MG/DL [facility] Specimen Anatomical Collection Method Collection Time Receive d Time (Source) Location / / Volume Laterality 08/25/2015 5:35 AM 5 5:35 CDT AM CDT Lazaro Rivero M.D. LAB BLOOD ADD-ON Performing Organization Address City/[facility] Code Phon e Number [facility] - [address] [place] [phone] [facility] Cardiac Biomarker Panel (08/25/2015 5:34 AM CDT) P athologist Signature Troponin T 3H, . NG/ML [facility] S [facility] Comment: Cardiac Biomarker Panel, S was cancelled on 08/25/2015 at 09:10; Duplicate test ? request. ? REVISED RESULTS ? PREVIOUSLY REPORTED A S ? 11.5 (Reported 08/25/2015 06:45) ? Specimen Anatomical Collection Method Collection Time Receive d Time (Source) Location / / Volume Laterality 08/25/2015 5:34 AM 5 5:34 CDT AM CDT Narrative [facility] - [facility] - 08/25/2015 9:11 AM CDT Cardiac Biomarker Panel, S was cancelled on 08/25/2015 at 09:10; Duplicate test request. Ira Mae M.D. LAB BLOOD ADD-ON Performing Organization Address City/State/ZIP Code Phon e Number [facility] - [address] [place], [place] [address] [facility] ECG 12 Lead (08/25/2015 1:23 AM CDT) Specimen (Source) Anatomical Collection Method Collection Time Re ceived Time Location / / Volume Laterality 08/25/2015 1:23 AM CDT [facility] RADIOLOGY SYSTEM - 08/25/2015 6:15 AM CDT 25Aug2015 01:23 VENTRICULAR RATE 64 Sinus rhythm Premature ventricular complexes Left axis deviation Anteroseptal infarct ST and T wave abnormality, consider ante rolateral ischemia ST elevation in Anterior leads When compared with ECG of 24-AUG-2015 22 :59, Premature ventricular complexes are now present Vent. rate has decreased BY ??[address] and T waves have changed [id number]^JR JOANNE GUZMAN^KARL Procedure Note Karl Guzman Jr., [...] BPM ST and T waves have changed [id number]^JR JOANNE GUZMAN^KARL Prieto Kumar M.D. ECG ORDERABLES Performing Organization Address City/State/ZIP Code Phon e Number HX [facility] RADIOLOGY SYSTEM [address] [place] [address], U SA (ABNORMAL) ACT (Activated Clotting Time), POCT (08/25/2015 12:47 AM CDT) [facility] Method Time Signature Activated 274 (H) 84 - 139 [facility] Clotting Time, SEC LABORATORIES - POCT [facility] Specimen Anatomical Collection Method Collection Time Receive d Time (Source) Location / / Volume Laterality 08/25/2015 12:47 08/25/2015 AM CDT 12:47 AM CDT Historical Provider LAB POCT ORDERABLES - DEVICE Performing Organization Address City/State/ZIP Code Phon e Number [facility] - [address] [place] [address] [facility] (ABNORMAL) ACT (Activated Clotting Time), POCT (08/25/2015 12:33 AM CDT) [facility] Method Time Signature Activated 256 (H) 84 - 139 [facility] Clotting Time, SEC LABORATORIES - POCT [facility] Specimen Anatomical Collection Method Collection Time Receive d Time (Source) Location / / Volume Laterality 08/25/2015 12:33 08/25/2015 AM CDT 12:33 AM CDT Historical Provider LAB POCT ORDERABLES - DEVICE Performing Organization Address City/[facility]/ZIP Code Phon e Number [facility] - [address] (ABNORMAL) ACT (Activated Clotting Time), POCT (08/25/2015 12:20 AM CDT) [facility] Method Time Signature Activated 202 (H) 84 - 139 [facility] Clotting Time, SEC LABORATORIES - POCT [facility] Specimen Anatomical Collection Method Collection Time Receive d Time (Source) Location / / Volume Laterality 08/25/2015 12:20 08/25/2015 AM CDT 12:20 AM CDT Historical Provider LAB POCT ORDERABLES - DEVICE Performing Organization Address City/[facility]/ZIP Code Phon e Number [facility] - [address] [place] [address] [facility] ACT (Activated Clotting Time), POCT (08/24/2015 11:51 PM CDT) P athologist Signature Activated 133 84 - 139 [facility] Clotting Time, SEC LABORATORIES - POCT [facility] Specimen Anatomical Collection Method Collection Time Receive d Time (Source) Location / / Volume Laterality 08/24/2015 11:51 08/24/2015 PM CDT 11:51 PM CDT Historical Provider LAB POCT ORDERABLES - DEVICE Performing Organization Address City/State/ZIP Code Phon e Number [facility] - [address] [place], [place] [address] [facility] ECG 12 Lead (08/24/2015 10:59 PM CDT) Specimen (Source) Anatomical Collection Method Collection Time Re ceived Time Location / / Volume Laterality 08/24/2015 10:59 PM CDT [facility] SYSTEM - 08/25/2015 5:14 AM CDT 24Aug2015 22:59 VENTRICULAR RATE 95 Normal sinus rhythm Left axis deviation Anteroseptal infarct ST elevation in Anterior leads When compared with ECG of 24-AUG-2015 21 :49, Premature ventricular complexes are no l onger present ST more elevated in Anterior leads [id number]^JR JOANNE GUZMAN^KARL Procedure Note Karl Guzman Jr., M.D. - 02/03/2018For matting of this note might be different from the original. 24Aug2015 22:59 VENTRICULAR RATE 95 Normal sinus rhythm Left axis deviation Anteroseptal infarct ST elevation in Anterior leads When compared with ECG of 24-AUG-2015 21 :49, Premature ventricular complexes are no l onger present ST more elevated in Anterior leads [id number]^JR JOANNE GUZMAN^KARL Ira Mae M.D. ECG ORDERABLES Performing Organization Address City/State/ZIP Code Phon e Number HX [facility] SYSTEM [address] [place] [address], U Troponin T (08/24/2015 10:31 PM CDT) P athologist Signature Troponin T, S . <0.01 [facility] NG/ML LABORATORIES [facility] Comment: Troponin T, S was cancelled on 5 at 09:15; Results moved to [id number], ? [place] PER Dr. Ira Mae [id number] ? REVISED RESULTS ? PREVIOUSLY REPORTED A S ? 2.1 (Reported 08/25/2015 00:00) ? Specimen Anatomical Collection Method Collection Time Receive d Time (Source) Location / / Volume Laterality 08/24/2015 10:31 08/24/2015 PM CDT 10:31 PM CDT Narrative [facility] - 08/25/2015 9:16 AM CDT Troponin T, S was cancelled on 08/25/2015 at 09:15; Results moved to [id number], [place] PER Dr. Ira Mae [id number] Ira Mae M.D. LAB BLOOD ADD-ON Performing Organization Address City/[facility]/ZIP Code Phon e Number [facility] - [address] [place] [address] [facility] (ABNORMAL) AST (Aspartate Aminotransferase) (08/24/2015 10:31 PM CDT) [facility] Method Time Signature AST, Total, S 191 (H) 8 - 48 U/L [facility] Specimen Anatomical Collection Method Collection Time Receive d Time (Source) Location / / Volume Laterality 08/24/2015 10:31 08/24/2015 PM CDT 10:31 PM CDT Ira Mae M.D. LAB BLOOD ADD-ON Performing Organization Address City/[facility]/ZIP Code Phon e Number [facility] - [address] [place] [address] [facility] (ABNORMAL) Lipid Panel (08/24/2015 10:31 PM CDT) [facility] Method Time Signature Cholesterol, 226 (H) SeeComment [facility] Total MG/DL [facility] Comment: ? REFERENCE VALUE------ ? Desirable: < 200 ? Borderline high: 200 - 239 ? High: > or = 240 ? Triglycerides 39 SeeComment MG/DL [facility] Comment: ? REFERENCE VALUE------ ? Normal: <150 ? Borderline high: 150-199 ? High: 200-499 ? Very high: > or =500 ? Cholesterol, Non-HDL, 162 (H) SeeComment MG/DL [facility] - Calculated [facility] Comment: ? REFERENCE VALUE------ ? Desirable: <130 ? Above Desirable: 130-159 ? Borderline high: 160-189 ? High: 190-219 ? Very high: > or =220 ? Cholesterol, HDL, S 64 >=40 MG/DL [facility] S Calculated LDL 154 (H) SeeComment MG/DL [facility] S Comment: ? REFERENCE VALUE------ ? Desirable: [...] Address City/State/ZIP Code Phon e Number [facility] - [address] [place], [place] [address] [facility] ALT (Alanine Aminotransferase) (08/24/2015 10:31 PM CDT) [facility] Method Time Signature Alanine 42 7 - 55 [facility] Aminotransferase U/L LABORATORIES - (ALT), S [facility] Specimen Anatomical Collection Method Collection Time Receive d Time (Source) Location / / Volume Laterality 08/24/2015 10:31 08/24/2015 PM CDT 10:31 PM CDT Ira Mae M.D. LAB BLOOD ADD-ON Performing Organization Address City/[facility] Code Phon e Number [facility] - [address] [place] [phone] [facility] (ABNORMAL) Electrolyte (Chem 4) Panel (08/24/2015 10:31 PM CDT) [facility] Signature Sodium, S 140 135 - 145 [facility] MMOL/L [facility] Potassium, S 3.9 3.6 - 5.2 [facility] MMOL/L [facility] Creatinine 0.8 0.8 - 1.3 [facility] MG/DL [facility] BUN (Blood Urea 19 8 - 24 [facility] Nitrogen), S MG/DL [facility] Anion Gap 15 7 - 15 [facility] Glucose, S 147 (H) 70 - 140 [facility] MG/DL [facility] Chloride, S 103 98 - 107 [facility] MMOL/L [facility] HX Bicarbonate, 22 22 - 29 [facility] P/S MMOL/L [facility] Specimen Anatomical Collection Method Collection Time Receive d Time (Source) Location / / Volume Laterality 08/24/2015 10:31 08/24/2015 PM CDT 10:31 PM CDT Ira Mae M.D. LAB BLOOD ADD-ON Performing Organization Address City/[facility]/ZIP Code Phon e Number [facility] - [address] [place] [phone] [facility] (ABNORMAL) Cardiac Biomarker Panel (08/24/2015 10:31 PM CDT) [facility] Method Time Signature Troponin T 6H, 11.5 (H) <0.01 [facility] S NG/ML LAB[facility]IES [facility] Delta Interp Sig Delta [facility] Comment: Significant delta observed. Troponin Delta % 448 % [facility] Troponin T, S 2.1 (H) <0.01 NG/ML [facility] Troponin T 3H, S . [facility] Specimen Anatomical Collection Method Collection Time Receive d Time (Source) Location / / Volume Laterality 08/24/2015 10:31 08/24/2015 PM CDT 10:31 PM CDT Ira Mae M.D. LAB BLOOD ADD-ON Performing Organization Address City/State/ZIP Code Phon e Number [facility] - [address] [place] [address] [facility] Hemoglobin A1c (08/24/2015 10:30 PM CDT) Analysis Performed At [facility] logist Time Signature Hemoglobin A1c, 5.6 4.0 - 6.0 [facility] B % [facility] Specimen Anatomical Collection Method Collection Time Receive d Time (Source) Location / / Volume Laterality 08/24/2015 10:30 08/24/2015 PM CDT 10:30 PM CDT Ira Mae M.D. LAB BLOOD ADD-ON Performing Organization Address City/State/ZIP Code Phon e Number [facility] - [address] PT (Prothrombin Time) with INR (08/24/2015 10:30 PM CDT) [facility] gist Method Time Signature Prothrombin 12.0 9.5 - 13.8 [facility] Time, P SEC [facility] INR 1.0 0.8 - 1.2 [facility] Specimen Anatomical Collection Method Collection Time Receive d Time (Source) Location / / Volume Laterality 08/24/2015 10:30 08/24/2015 PM CDT 10:30 PM CDT Ira Mae M.D. LAB BLOOD ADD-ON Performing Organization Address City/State/ZIP Code Phon e Number [facility] - [address] (ABNORMAL) CBC with Differential (08/24/2015 10:30 PM CDT) [facility] gist Method Time Signature Erythrocytes 4.35 4.32 - [facility] 5.72 LABORATORIES - X10(12)/L [facility] MCV 90.6 81.2 - [facility] 95.1 [place] LABORATORIES - [facility] RBC Distrib 13.5 11.8 - [facility] Width 15.6 % LAB[facility]ATORIES - [facility] Platelet Count 187 150 - 450 [facility] X10(9)/L [facility]ATORIES - [facility] Leukocytes 10.0 3.5 - [facility] 10.5 LABORATORIES - X10(9)/L [facility] Neutrophils 8.92 (H) 1.70 - [facility] 7.00 LABORATORIES - X10(9)/L [facility] Eosinophils 0.07 0.05 - [facility] 0.50 LABORATORIES - X10(9)/L [facility] Basophils 0.01 0.00 - [facility] 0.30 LABORATORIES - X10(9)/L [facility] Hemoglobin 13.2 (L) 13.5 - [facility] 17.5 G/DL LAB[facility]ATORIES - [facility] Hematocrit 39.4 38.8 - [facility] 50.0 % LABORATORIES - [facility] Lymphocytes 0.69 (L) 0.90 - [facility] 2.90 LABORATORIES - X10(9)/L [facility] Monocytes 0.34 0.30 - [facility] 0.90 LABORATORIES - X10(9)/L [facility] Specimen Anatomical Collection Method Collection Time Receive d Time (Source) Location / / Volume Laterality 08/24/2015 10:30 08/24/2015 PM CDT 10:30 PM CDT Ira Mae M.D. LAB BLOOD ADD-ON Performing Organization Address City/State/ZIP Code Phon e Number [facility] - [address] [place], [place] [address] [facility] ECG 12 Lead (08/24/2015 9:49 PM CDT) Specimen (Source) Anatomical Collection Method Collection Time Re ceived Time Location / / Volume Laterality 08/24/2015 9:49 PM CDT [facility] RADIOLOGY SYSTEM - 08/24/2015 10:18 PM CDT 24Aug2015 21:49 VENTRICULAR RATE 96 Sinus rhythm Premature ventricular complexes Left axis deviation Anteroseptal infarct ST elevation in Anterior leads No previous ECGs available [id number]^JR JOANNE GUZMAN^KARL Procedure Note Karl Guzman Jr., M.D. - 02/03/2018For matting of this note might be different from the original. 24Aug2015 21:49 VENTRICULAR RATE 96 Sinus rhythm Premature ventricular complexes Left axis deviation Anteroseptal infarct ST elevation in Anterior leads No previous ECGs available [id number]^JR JOANNE GUZMAN^KARL Ira Mae M.D. ECG ORDERABLES Performing Organization Address City/State/ZIP Code Phon e Number HX [facility] RADIOLOGY SYSTEM [address] [place] [address], U SA documented in this encounter Visit Diagnoses Not on filedocumented in this encounter
--- OUTSIDE RECORDS SUMMARY | 2022-08-30 08:43 | XMS_ITS | Encounter Summary ---
:1945 Author Organization [facility] Address [address] [place] [address] Care Team Providers Name Role Phone Unavailable Primary Care Provider Unavailable Encounter Details Date Type Department Care Team Description 09/22/[address] [facility] ED Brianne Daniel , P.A.-C. [address] [place], [place] [phone] (Wo rk) Social History [...] 10/15/2019 organizations such as advent groups, unions, fraternal or athletic groups, or [...] Comments Blood Pressure 96/53 09/22/2016 8:16 AM CLOTHES SEPARATOR Pulse - - Temperature - - Respiratory Rate 18 09/22/2016 8:16 AM CLOTHES SEPARATOR Oxygen Saturation - - Inhaled Oxygen Concentration - - Weight - - Height - - Body Mass Index - - documented in this encounter Discharge Summaries Judy Hernandez R.N. - 09/22/2016 8:35 AM CST ED Depart Summary [facility] Emergency Department Clinical Discharge Summary PERSON INFORMATION Name MANUEL KHANNA Age 71 Years 1945 12:00 AM Sex Male Language Palauan PCP PCP, ELSEWHERE Marital Status Visit Id Visit Reason Medical problem - minor; Anxiety; General medical/ not feeling well Specialty Enc Type Emergency Med Service Emergency Medicine Referred by Track Group [facility] ED Discharge 09/22/2016 8:35 AM Tracking Id [id number] Checkout 09/22/2016 8:35 AM Checkin 09/22/2016 6:56 AM Acuity 2 -Emergent Dispo Type * Discharged to Home or Self Care Arrival 09/22/2016 6:56 AM Reg Status Complete LOS 000 01:39 Address: [address] [place] [phone] Comment: PROVIDER INFORMATION Provider Role Provider Contact Time JUDY HERNANDEZ TUNNEL MUCKER Nurse 09/22/16 07:04 BRIANNE PORTER PA ED [...] ER if new or worsening symptoms Source: [facility] POWERCHART Document Id: [id number] HES SEPARATOR Judy Hernandez, R.N. - 09/22/2016 8:35 AM CST ED Discharge Instructions [address] [address] Name: MANUEL KHANNA Date of : 1945 12:00 AM Visit Date: 09/22/2016 6:56 AM [facility] Number: [id number] Address: [address] [place] [phone] Primary Care Provider: PCP, ELSEWHERE IMPORTANT: [facility] in [place] would like to thank you for allowing [...] help. Tell your doctor about any prescription, [id number]-ttssxaq or herbal medicines you take. These may beaffecting your heart rhythm. Follow-up care Follow up with your health care provider or as advised by our staff. If a Holter monitor has been recommended, contact the screen operator you have been referred to as soon as you can continuous pickling line pickler helper the device. Other outpatient tests may also [...] or treatment required for this condition. ?? [phone] Darryn Garcia, [address] [place] [address]. All rights reserved. This information is not [...] get worse ?? New symptoms appear ?? [phone] Darryn Calderón[facility], [address] [place] [address]. All rights reserved. This information is not [...] if you dont have one. Go to [email or web address] and click on Create Your Account. Then, follow the directions to complete the online form. Youll be asked for your [facility] number which you can find at the [...] a ride home with a responsible democrat. JED Badillo RONALD JEROME , or responsible democrat have [...] a ride home with a responsible democrat. JED Badillo RONALD JEROME , or responsible democrat have received this information and my questions have been answered. I have discussed any challenges I see with this plan with the nurse or physician. Patient Signature or Responsible Libertarian/Relationship Date Time Provider Signature Date Time This document has images extracted. Please consider using [employer] for all your patient education needs. Source: [facility] POWERCHART Document Id: [id number] HES SEPARATOR documented in this encounter Medications at Time [...] ED Disposition Summary Entered On: 09/22/2016 8:34 CLOTHES SEPARATOR Performed On: 09/22/2016 8:34 CLOTHES SEPARATOR by JUDY HERNANDEZ TUNNEL MUCKER Disposition Summary Present in Room During Exam/Procedure : Spouse Mode of Discharge : Ambulatory Transportation : Private vehicle Printed Discharge Instructions Given to Patient : Yes Patient Status at Discharge from ED : Improved JUDY HERNANDEZ RN - 09/22/2016 8:34 CLOTHES SEPARATOR Source: [employer] Document Id: [id number] CLOTHES SEPARATOR!7 HES SEPARATOR Judy Hernandez R.N. - 09/22/2016 8:34 AM CST ED Pain Assessment ED Pain Assessment Entered On: 09/22/2016 8:34 CLOTHES SEPARATOR Performed On: 09/22/2016 8:34 CLOTHES SEPARATOR by JUDY HERNANDEZ RN Pain Assessment Pain Symptoms : No JUDY HERNANDEZ RN - 09/22/2016 8:34 CLOTHES SEPARATOR Source: [employer] Document Id: [id number] CLOTHES SEPARATOR!3 HES SEPARATOR Judy Hernandez R.N. - 09/22/2016 7:05 AM CST ED Primary Assessment Document Has Been Updated ED Primary Assessment Entered On: 09/22/2016 7:05 CLOTHES SEPARATOR Performed On: 09/22/2016 7:05 CLOTHES SEPARATOR by JUDY HERNANDEZ RN Reason For Visit (As Of: 09/22/2016 07:05:48 CLOTHES SEPARATOR) Diagnoses(Active) Anxiety Date: 09/22/2016 ; Diagnosis Type: Reason For Visit ; Confirmation: Complaint of ; Clinical Dx: Anxiety ; Classification: Medical ; Clinical Service: Emergency medicine ; Code: PNED ; Probability: 0 ; Diagnosis Code: [id number] Triage Mode of Arrival ED : Private vehicle Track : Medical Languages : Palauan Treatments Prior to Arrival : None, Nitroglycerin Is Patient Female and 13-50 no hysterectomy : No JUDY HERNANDEZ RN - 09/22/2016 7:05 CLOTHES SEPARATOR Pain Assessment Pain Symptoms : No JUDY HERNANDEZ RN - 09/22/2016 7:05 CLOTHES SEPARATOR Respiratory Airway : Patent Respirations : Unlabored Respiratory Pattern : Regular JUDY HERNANDEZ RN - 09/22/2016 7:05 CLOTHES SEPARATOR Cardiovascular Heart Rhythm : Regular Skin Color : Normal for ethnicity Skin Description : Dry Skin Temperature : JUDY Enriquez RN - 09/22/2016 7:05 CLOTHES SEPARATOR Neurological Last Well Time Known : Not applicable Level of Consciousness : Alert Orientation : Oriented x 3 Characteristics of Speech : Appropriate for age JUDY HERNANDEZ RN - 09/22/2016 7:05 CLOTHES SEPARATOR ED Psychosocial Affect/Behavior : Calm, Cooperative, Appropriate Domestic Abuse Concerns : None Behavioral Health Screen/Safety Assmt : No JUDY HERNANDEZ RN - 09/22/2016 7:05 CLOTHES SEPARATOR Gastrointestinal Nutrition ED : Adequate JUDY HERNANDEZ RN - 09/22/2016 7:05 CLOTHES SEPARATOR Musculoskeletal Fall Prevention Education Provided : NA JUDY HERNANDEZ RN - 09/22/2016 7:05 CLOTHES SEPARATOR Social Habits Smoking Status : Never smoker Tobacco 2A : No Tobacco Use/Currently Using : No Tobacco Use/Last 30 Days : No Tobacco Use/Last 12 months : No JUDY HERNANDEZ RN - 09/22/2016 7:05 CLOTHES SEPARATOR Alcohol Use Grid Alcohol Use : No JUDY HERNANDEZ RN - 09/22/2016 7:05 CLOTHES SEPARATOR Recreational Drug Use Grid Drug Use : None JUDY HERNANDEZ RN - 09/22/2016 7:05 CLOTHES SEPARATOR Source: [facility] POWERCHART Document Id: [id number] CLOTHES SEPARATOR!43 HES SEPARATOR Brianne Daniel P.A.-C. - 09/22/2016 7:05 AM [...] Note : Chief Complaint Description 09/22/2016 7:01 CLOTHES SEPARATOR Chief Complaint Description Pt presents to ED [...] recently traveled to their daughter's house in [place] and he was always cold and did [...] shoulder. Additional Past History: PCP is at [facility] Cardiology is at [facility] Oncology is at [facility]. Physical Examination Vital Signs: Vital Signs 09/22/2016 7:01 CLOTHES SEPARATOR Temperature Core 37.2 DegC Apical Heart Rate [...] Laboratory: TSH (Order Processing): Stat, 09/22/2016 7:06 CLOTHES SEPARATOR, Once Urinalysis with Microscopic (Order Processing): Stat, 09/22/2016 7:06 CLOTHES SEPARATOR, Once, Urine, Clean Void (Midstream) Troponin T (Order Processing): Stat, 09/22/2016 7:06 CLOTHES SEPARATOR, Once PT/INR (Order Processing): Stat, 09/22/2016 7:06 CLOTHES SEPARATOR, Once Comprehensive Metabolic Panel (Order Processing): Stat, 09/22/2016 7:06 CLOTHES SEPARATOR, Once CBC (includes Auto Differential) (Order Processing): Stat, 09/22/2016 7:06 CLOTHES SEPARATOR, Once Radiology: XR Chest 1 view portable (Order Processing): 09/22/2016 7:06 CLOTHES SEPARATOR, wheezing, Stat, Patient Bed, Once,09/22/2016 7:06 CLOTHES SEPARATOR, [facility] ED ED: Oxygen - ED (Order Processing): 09/22/2016 7:06 CLOTHES SEPARATOR, Once, Stat, 09/22/2016 7:06 CLOTHES SEPARATOR, PRN to keep oxygen saturation above 95%.. [...] review:Lab results : Lab View 09/22/2016 7:21 CLOTHES SEPARATOR UA Color Yellow UA Clarity Clear UA Spec Grav 1.020 UA pH 6.0 UA Protein Negative mg/dL UA Glucose Negative mg/dL UA Ketones Negative mg/dL UA Bili Negative UA Urobilinogen 0.2 mg/dL UA Blood Negative UA Nitrite Negative UA Leuk Est Negative UR WBC Occ-3 /HPF UR RBC Occ-2 /HPF UR Hyaline Cast 4-10 /LPF UR Mucous Present 09/22/2016 7:10 CLOTHES SEPARATOR Hgb 13.8 g/dL Hct 39.4 % WBC 9.9 x10(9)/L RBC 4.38 x10(12)/L MCV 90.0 fL RDW 12.5 % Platelet 208 x10(9)/L Neutro Absolute 7.52 10(9)/L HI Lymph Absolute 1.35 x10(9)/L [place] Absolute 0.60 x10(9)/L Eos Absolute 0.43 x10(9)/L [...] from flowsheet : Vital Signs 09/22/2016 7:36 CLOTHES SEPARATOR Apical Heart Rate 71 /min Respiratory Rate 18 /min SpO2 95 % Systolic Blood Pressure 99 mmHg Diastolic Blood Pressure 57 mmHg BP Location Left upper 09/22/2016 7:33 CLOTHES SEPARATOR Apical Heart Rate 71 /min SpO2 96 % Systolic Blood Pressure 102 mmHg Diastolic Blood Pressure 79 mmHg BP Location Right upper 09/22/2016 7:25 CLOTHES SEPARATOR Apical Heart Rate 71 /min Respiratory Rate 16 /min SpO2 96 % Systolic Blood Pressure 100 mmHg Diastolic Blood Pressure 72 mmHg BP Location Right upper 09/22/2016 7:17 CLOTHES SEPARATOR Apical Heart Rate 73 /min Respiratory Rate 16 /min SpO2 95 % Systolic Blood Pressure 106 mmHg Diastolic Blood Pressure 71 mmHg BP Location Left upper 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 This has caused hypotension for him in [...] GOLDBERG MD On: 09/22/2016 07:36 PM Source: [facility] POWERCHART Document Id: [id number]} HES SEPARATOR Judy Hernandez, R.N. - 09/22/2016 7:01 AM CST ED Triage Assessment Document Has Been Updated ED Triage Assessment Entered On: 09/22/2016 7:04 CLOTHES SEPARATOR Performed On: 09/22/2016 7:01 CLOTHES SEPARATOR by JUDY HERNANDEZ RN Reason For Visit (As Of: 09/22/2016 07:04:52 CLOTHES SEPARATOR) Diagnoses(Active) Anxiety Date: 09/22/2016 ; Diagnosis Type: Reason For Visit ; Confirmation: Complaint of ; Clinical Dx: Anxiety ; Classification: Medical ; Clinical Service: Emergency medicine ; Code: PNED ; Probability: 0 ; Diagnosis Code: [id number] Triage Chief Complaint Description : Pt presents to ED after waking at 0330 feeling anxious. denies chest pain or SOB Information Given By : Patient Present in Room During Exam/Procedure : Alone Mode of Arrival ED : Private vehicle Track : Medical Languages : Palauan Vital Signs Assessed : Yes Treatments Prior to Arrival : None, Nitroglycerin Is Patient Female and 13-50 no hysterectomy : No JUDY HERNANDEZ RN - 09/22/2016 7:01 CLOTHES SEPARATOR Vital Signs Temperature Core : 37.2 DegC(Converted to: 99.0 DegF) Apical Heart Rate : 76 /min Respiratory Rate : 14 /min Systolic Blood Pressure : 116 mmHg Diastolic Blood Pressure : 74 mmHg NIBP Mean : 88 mmHg BP Location : Right upper extremity JUDY HERNANDEZ RN - 09/22/2016 7:01 CLOTHES SEPARATOR Pain Assessment Pain Symptoms : No JUDY HERNANDEZ RN - 09/22/2016 7:01 CLOTHES SEPARATOR ED Physician Notification Time ED Physician Notification Time : 09/22/2016 7:04 CLOTHES SEPARATOR JUDY HERNANDEZ RN - 09/22/2016 7:01 CLOTHES SEPARATOR YOAN DCP GENERIC CODE Tracking Acuity : 2 -Emergent Tracking Group : [facility] ED JUDY HERNANDEZ RN - 09/22/2016 7:01 CLOTHES SEPARATOR Allergy (As Of: 09/22/2016 07:04:52 CLOTHES SEPARATOR) Allergies (Active) clindamycin Comments: Comment 1: CLINDAMYCIN ; Created By: ContributorIunikaCORKY higgins_KEREN; Reaction Status: Active ; Category: Drug ; Substance: clindamycin ; Type: Unknown ; Updated By: ContributorIunikaCORKY higgins_KEREN; Reviewed Date: 09/22/2016 7:04 CLOTHES SEPARATOR Contrast Dye Comments: Comment 1: CONTRAST DYE ; Created By: Gallery AlSharqCORKY higgins_KEREN; Reaction Status: Active ; Category: Other ; Substance: Contrast Dye ; Type: Unknown ; Updated By: ContributorCORKY [email or web address]_KEREN; Reviewed Date: 09/22/2016 7:04 CLOTHES SEPARATOR Other Environmental Comments: Comment 1: SEASONAL ALLERGIES ; Created By: Benjamin's DeskCHAGO vásquez; Reaction Status: Active ; Category: Environment ; Substance: Other Environmental ; Type: Unknown ; Updated By: ContributorCORKY vásquez_KEREN; Reviewed Date: 09/22/2016 7:04 CLOTHES SEPARATOR penicillins Comments: Comment 1: PENICILLINS ; Created By: Contributor_system, [facility]_HX_ALRG_SYS; Reaction Status: Active ; Category: Drug ; Substance: penicillins ; Type: Unknown ; Updated By: Contributor_system, [facility]_HX_AL[facility]_SYS; Reviewed Date: 09/22/2016 7:04 CLOTHES SEPARATOR ID Screen Drug Resistant Organism : No JUDY HERNANDEZ RN - 09/22/2016 7:01 CLOTHES SEPARATOR Immunizations Immunizations Current : Yes Influenza : This year JUDY HERNANDEZ RN - 09/22/2016 7:01 CLOTHES SEPARATOR Source: [facility] [employer] Document Id: [id number] CLOTHES SEPARATOR!32 HES SEPARATOR documented in this encounter Miscellaneous Notes Miscellaneous - Conversion, Historical Provider Ser - 09/22/2016 8:35 AM CLOTHES SEPARATOR Coding Summary-Paper Based CODING DATE: 09/29/2016 FINAL [facility] STATUS: * Discharged to Home or Self Care PAYOR: Medicare ADMIT DX: F41.9 Anxiety disorder, unspecified REASON FOR VISIT DX: F41.9 Anxiety disorder, unspecified FINAL DX: PRINCIPAL: I45.2 Bifascicular block SECONDARY: F41.9 Anxiety disorder, unspecified Z79.82 skilled nursing (current) use of aspirin Z88.0 Allergy status [...] LANTIGUA Date Saved: 09/29/2016 07:37 am Source: [employer] Document Id: [id number] Miscellaneous - Judy Hernandez RCarmineN. - 09/22/2016 8:34 AM CST Valuables/Belongings Valuables/Belongings Entered On: 09/22/2016 8:34 CLOTHES SEPARATOR Performed On: 09/22/2016 8:34 CLOTHES SEPARATOR by JUDY HERNANDEZ RN Valuables/Belongings Home Medication Disposition : None brought in with patient JUDY HERNANDEZ RN - 09/22/2016 8:34 CLOTHES SEPARATOR Source: [facility] POWERCHART Document Id: [id number] CLOTHES SEPARATOR!3 HES SEPARATOR Miscellaneous - Judy Hernandez R.N. - 09/22/2016 6:56 AM CST Facility Charge Ticket 2.0 11.0 DX Facility Charge Ticket 2.0 11.0 DX Entered On: 09/22/2016 8:34 CLOTHES SEPARATOR Performed On: 09/22/2016 6:56 CLOTHES SEPARATOR by JUDY HERNANDEZ RN Facility Charge Ticket [...] Nursing Notes ED Primary Assessment,09/22/16 07:05,JUDY HERNANDEZ TUNNEL MUCKER Pain Assessment,09/22/16 08:34,JUDY HERNANDEZ RN Lynx Nursing Assessment : Triage and 1-2 nursing assessments Lynx Disposition : Discharge Disposition RTF : discharge Lynx Total Points with Diagnosis Control : 8 Lynx Visit Level : 02184 Level 4 Treatments Prior to Arrival : None, Nitroglycerin JUDY HERNANDEZ RN - 09/22/2016 8:34 CLOTHES SEPARATOR Source: [facility] [employer] Document Id: [id number] CLOTHES SEPARATOR!19 HES SEPARATOR documented in this encounter Plan of Treatment Upcoming Encounters Date Type Specialty Care Team Description 10/11/2022 Appointment Laboratory Medicine Natasha Mullins APRN, C.N.PCarmine, M.S.N. [address] [place] [phone] (Joanie velázquez) 10/11/2022 Ancillary Procedure Cardiovascular Disease Natasha Cramer APRN, C.N.P., M.S.N. [address] [place] [phone] (Joanie rk) 10/11/2022 Appointment Cardiovascular Disease Natasha Mullins APRN, C.N.P., M.S.N. [address] [place] [phone] (Joanie rk) 10/12/2022 Office Visit Cardiovascular Disease Natasha Mullins APRN, C.N.P., M.S.N. [address] [place] [phone] (Joanie rk) documented as of this encounter Procedures Procedure Name Priority Date/Time Associated Comments Diagnosis URINALYSIS WITH Routine 09/22/2016 7:21 AM Result s for this MICROSCOPIC CLOTHES SEPARATOR procedure are i n the results section. AUTOMATED Routine 09/22/2016 7:10 AM Results f or this DIFFERENTIAL, B CLOTHES SEPARATOR procedure ar e in the results section. PROTHROMBIN TIME (PT), Routine 09/22/2016 7:10 AM Results for this P CLOTHES SEPARATOR procedure are i n the results section. CBC WITH DIFFERENTIAL, Routine 09/22/2016 7:10 AM Results for this B CLOTHES SEPARATOR procedure are i n the results section. TROPONIN T, 5TH GEN, P Routine 09/22/2016 7:10 AM Results for this CLOTHES SEPARATOR procedure are i n the results section. THYROID-STIMULATING Routine 09/22/2016 7:10 AM Re sults for this HORMONE-SENSITIVE CLOTHES SEPARATOR procedure are in (S-TSH) the results section. COMPREHENSIVE Routine 09/22/2016 7:10 AM Results for this METABOLIC PANEL, S/P CLOTHES SEPARATOR procedu re are in the results section. ECG Routine 09/22/2016 7:01 AM Results f or this CLOTHES SEPARATOR procedure are i n the results section. documented in this encounter Results (ABNORMAL) Urinalysis, Complete, Includes Microscopic (09/22/2016 7:21 AM CLOTHES SEPARATOR) P athologist Signature Clarity Clear Clear POWERCHART HXUr Color Yellow Colorless POWERCHART Specific 1.020 POWERCHART [place], POCT, U Comment: Reference Range Specific [place]: 1.000-1.035 pH, POCT, Urine 6.0 <5.0 POWERCHART [...] Laterality Urine, First 09/22/2016 7:21 AM Voided CLOTHES SEPARATOR Brianne Daniel P.A.-C. LAB URINE ORDERABLES Performing Organization Address City/State/ZIP Code Phon e Number POWERCHART (ABNORMAL) Automated Differential (09/22/2016 7:10 AM CLOTHES SEPARATOR) Patholo gist Method Time Signature Absolute 7.52 [...] Laterality Blood 09/22/2016 7:10 AM 6 7:10 CLOTHES SEPARATOR AM CLOTHES SEPARATOR Brianne Daniel P.A.-C. LAB BLOOD ADD-ON Performing Organization Address City/[facility]/ZIP Code Phon e Number POWERCHART PT (Prothrombin Time) with INR (09/22/2016 7:10 AM CLOTHES SEPARATOR) Analysis Performed At Patho logist Time Signature [...] / Volume Laterality Blood 09/22/2016 7:10 AM CLOTHES SEPARATOR Brianne Daniel P.A.-C. LAB BLOOD ADD-ON Performing Organization Address City/State/ZIP Code Phon e Number POWERCHART CBC with Differential (09/22/2016 7:10 AM CLOTHES SEPARATOR) P athologist Signature Leukocytes 9.9 3.5 - 10.5 POWERCHART X109L Erythrocytes 4.38 4.32 - 5.72 POWERCHART D9636S Hemoglobin 13.8 13.5 - 17.5 POWERCHART GDL Hematocrit 39.4 38.8 - 50.0 POWERCHART MCV 90.0 81.2 - 95.1 POWERCHART FL HX RDW 12.5 11.8 - 15.6 POWERCHART Platelet Count 208 150 - 450 POWERCHART X109L Specimen (Source) Anatomical Collection Method Collection Time Re ceived Time Location / / Volume Laterality Blood 09/22/2016 7:10 AM CLOTHES SEPARATOR Brianne Daniel P.A.-C. LAB BLOOD ADD-ON Performing Organization Address City/[facility]/ZIP Code Phon e Number POWERCHART Thyroid-Stimulating Hormone-Sensitive (s-TSH) (09/22/2016 7:10 AM CLOTHES SEPARATOR) P athologist Signature TSH 2.29 0.27 - 4.20 POWERCHART (Thyrotropin) ANGELES Comment: Biotin has been identified by the [employer] hunter[employer] as a potential interfering substance. Higher concentrations of biotin may be found in multivitamins, hair/nail supplements, and workout supplements. If the result does not match clinical observat ions, repeat testing after patient refrains from the use of supplements for at least 12 hours. Specimen (Source) Anatomical Collection Method Collection Time Re ceived Time Location / / Volume Laterality Blood 09/22/2016 7:10 AM CLOTHES SEPARATOR Brianne Daniel P.A.-C. LAB BLOOD ADD-ON Performing Organization Address City/[facility] Code Phon e Number POWERCHART Troponin T (09/22/2016 7:10 AM CLOTHES SEPARATOR) P athologist Signature Troponin T, S <0.01 <=0.01 NGML POWERCHART Comment: 0.03 - 0.1 ng/mL Intermediate Zone Biotin has been identified by the [facility]tluc[facility] as a potential interfering substance. Higher concentrations of biotin may be found in multivitamins, hair/nail supplements, and workout supplements. If the result does not match clinical observat ions, repeat testing after patient refrains from the use of supplements for at least 12 hours. Specimen (Source) Anatomical Collection Method Collection Time Re ceived Time Location / / Volume Laterality Blood 09/22/2016 7:10 AM CLOTHES SEPARATOR Brianne Daniel P.A.-C. LAB BLOOD ADD-ON Performing Organization Address City/State/ZIP Code Phon e Number POWERCHART (ABNORMAL) CMP (Comprehensive Metabolic Panel) (09/22/2016 7:10 AM CLOTHES SEPARATOR) [facility] gist Method Time Signature Alanine 24 7 [...] POWERCHART MMOLL HXeGFR (MDRD) >60 >=60 POWERCHART [id number] 2 eGFR Black/ >60 >=60 POWERCHART [place] [id number] 2 Bilirubin, Total, S 0.5 0.1 - 1.0 POWERCHART MGDL Total Protein, S 6.9 6.3 - 7.9 POWERCHART GDL Glucose 131 70 - 139 POWERCHART MGDL Specimen (Source) Anatomical Collection Method Collection Time Re ceived Time Location / / Volume Laterality Blood 09/22/2016 7:10 AM CLOTHES SEPARATOR Brianne Daniel P.A.-C. LAB BLOOD ADD-ON Performing Organization Address City/State/ZIP Code Phon e Number POWERCHART ECG 12 Lead (09/22/2016 7:01 AM CLOTHES SEPARATOR) Specimen (Source) Anatomical Collection Method Collection Time Re ceived Time Location / / Volume Laterality 09/22/2016 7:01 AM CLOTHES SEPARATOR [facility] - 09/22/2016 7:01 AM CLOTHES SEPARATOR Test Reason : EKG Blood Pressure : [...] Organization Address City/State/ZIP Code Phon e Number [facility] [address] [place] [phone] documented in this encounter Visit Diagnoses Not on filedocumented in this encounter
--- OUTSIDE RECORDS SUMMARY | 2022-08-30 08:43 | XMS_ITS | Encounter Summary ---
:1945 Author Organization [facility] Address [address] [place] [address] Care Team Providers Name Role Phone Unavailable [...] Medicine Natasha Mullins APRN, Radha.N.[place]., M.S.N. [address] [place] [phone] (Joanie velázquez) 10/11/2022 Ancillary Procedure Cardiovascular Disease Natasha Cramer APRN, Radha.N.P., M.S.N. [address] [place] [phone] (Joanie velázquez) 10/11/2022 Appointment Cardiovascular Disease Natasha Mullins APRN, Radha.N.P., M.S.N. [address] [place] [phone] (Joanie rk) 10/12/2022 Office Visit Cardiovascular Disease Natasha Mullins APRN, C.N.P., M.S.N. [address] [place] [phone] (Wo rk) documented as of this encounter Visit Diagnoses Not on filedocumented in this encounter
--- OUTSIDE RECORDS SUMMARY | 2022-08-30 08:43 | XMS_ITS | Encounter Summary ---
:1945 Author Organization [facility] Address [address] [place] [address] Care Team Providers Name Role Phone Unavailable [...] or relatives? How often do you attend taoism or More than 4 times per year 10/15/2019 jehovah's witness services? Do you belong to any clubs or Yes 10/15/2019 organizations such as taoism groups, unions, fraternal or athletic groups, or [...] Natasha Mullins APRN, C.N.P., M.S.N. [address] [place] [phone] (Joanie rk) 10/11/2022 Ancillary Procedure Cardiovascular Disease Natasha Cramer APRN, Radha.N.P., M.S.N. [address] [place] [phone] (Wo rk) 10/11/2022 Appointment Cardiovascular Disease Natasha Mullins APRN, Radha.N.P., M.S.N. [address] [place] [phone] (Wo rk) 10/12/2022 Office Visit Cardiovascular Disease Natasha Mullins APRN, C.N.P., M.S.N. [address] [place] [phone] (Wo rk) documented as of this encounter Visit Diagnoses Not on filedocumented in this encounter
--- OUTSIDE RECORDS SUMMARY | 2022-08-30 08:43 | XMS_ITS | Encounter Summary ---
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 However, the narrative phrase printed from the coding software may appear abbreviated, or result in slightly different terminology. Coded By: TASHA CRUZ Date Saved: 09/17/2015 04:20 pm [facility] Document Id: [id number] documented in this encounter Plan of Treatment Upcoming Encounters Date Type Specialty Care Team Description 10/11/2022 Appointment Laboratory Medicine Natasha Mullins APRN, C.N.P., M.S.N. [address] [place] [phone] (Wo rk) 10/11/2022 Ancillary Procedure Cardiovascular Disease Natasha Cramer APRN, C.N.P., M.S.N. [address] [place] [address] [phone] (Wo rk) 10/11/2022 Appointment Cardiovascular Disease Natasha Mullins APRN, Radha.N.Franklin., M.S.N. [address] [place] [phone] (Wo rk) 10/12/2022 Office Visit Cardiovascular Disease Natasha Mullins APRN, C.N.P., M.S.N. [address] [place] [phone] (Wo rk) documented as of this encounter Visit Diagnoses Not on filedocumented in this encounter
--- OUTSIDE RECORDS SUMMARY | 2022-08-30 08:43 | XMS_ITS | Encounter Summary ---
:1945 Author Organization [facility] Address [address] [place] [address] Care Team Providers Name Role Phone Unavailable [...] Medicine Natasha Mullins APRN, C.N.P., M.S.N. [address] [place] [phone] (Joanie rk) 10/11/2022 Ancillary Procedure Cardiovascular Disease Natasha Cramer APRN, Radha.N.P., M.S.N. [address] [place] [phone] (Wo rk) 10/11/2022 Appointment Cardiovascular Disease Natasha Mullins APRN, Radha.N.P., M.S.N. [address] [place] [phone] (Wo rk) 10/12/2022 Office Visit Cardiovascular Disease Natasha Mullins APRN, C.N.P., M.S.N. [address] [place] [phone] (Wo rk) documented as of this encounter Visit Diagnoses Not on filedocumented in this encounter
--- OUTSIDE RECORDS SUMMARY | 2022-08-30 08:43 | XMS_ITS | Encounter Summary ---
:[address] [facility] Address [address] [place] [address] Care Team Providers Name Role Phone Unavailable [...] Natasha Mullins APRN, C.N.P., M.S.N. [address] [place] [phone] (Wo rk) 10/11/2022 Ancillary Procedure Cardiovascular Disease Natasha Cramer APRN, C.NRenetta, M.S.N. [address] [place] [phone] (Wo rk) 10/11/2022 Appointment Cardiovascular Disease Natasha Mullins APRN, C.N.P., M.S.N. [address] [place] [phone] (Joanie velázquez) 10/12/2022 Office Visit Cardiovascular Disease Natasha Mullins APRN, C.NRenetta, M.S.N. [address] [place] [phone] (Joanie velázquez) documented as of this encounter Visit Diagnoses Not on filedocumented in this encounter
--- OUTSIDE RECORDS SUMMARY | 2022-08-30 08:43 | XMS_ITS | Encounter Summary ---
:1945 Author Organization [facility] Address [address] [place] [address] Care Team Providers Name Role Phone Unavailable Primary Care Provider Unavailable Reason for Referral Outpatient (Routine) - Closed Specialty Diagnoses / Procedures Referred By Contact Refer red To Contact Diagnoses Failure Heart (HCC) Chai Fagan [facility] Procedures ECG 12 Lead OR EKG 12 LEAD TRACE ONLY OR EKG I&R ONLY Danny MCCLELLANNRenetta, M.S.N. [address] [place] [phone] Referral ID Status Reason Start Date Expiration Date Visits Requ ested Visits Authorized [id number] Closed 09/19/2018 09/19/2019 1 1 utpatient (Routine) - Closed Specialty Diagnoses / Procedures Referred By Contact Refer red To Contact Diagnoses Failure Heart (HCC) Chai Fagan [facility] Procedures Echo Transthoracic (TTE) Danny MCCLELLANNRenetta, M.S.N. [address] [place] [phone] Referral ID Status Reason Start Date Expiration Date Visits Requ ested Visits Authorized [id number] Closed 09/19/2018 09/19/2019 1 1 ROBE SUPERVISOR Reason for Visit Reason Onset Date Comments Pre-visit Testing Orders 09/18/2018 Encounter Details Date Type Department Care Team Description 09/18/2018 Clinical Department of Chai Pre-visit Test ing Communication Cardiovascular Natasha Fagan, Orders Medicine in Justin [place], [place] M.S.N. [address] [facility] [address] [place] [phone] Social History Tobacco Use Types Packs/Day Years [...] Medicine Natasha Mullins APRN, Radha.N.P., M.S.N. [address] [place] [phone] (Joanie velázquez) 10/11/2022 Ancillary Procedure Cardiovascular Disease Natasha Cramer APRN, Radha.N.P., M.S.N. [address] [place] [phone] (Joanie rk) 10/11/2022 Appointment Cardiovascular Disease Natasha Mullins APRN, Radha.N.P., M.S.N. [address] [place] [phone] (Joanie rk) 10/12/2022 Office Visit Cardiovascular Disease Natasha Mullins APRN, Radha.N.P., M.S.N. [address] [place] [phone] (Wo rk) documented as of this encounter Results ECG 12 Lead (10/25/2018 10:49 AM WARDROBE SUPERVISOR) P athologist Signature Ventricular Rate 69 BPM MUSE ECG/Min OR Interval 186 ms MUSE QRSD Interval 154 ms MUSE QT Interval 420 ms MUSE QTC Interval 450 ms MUSE P [place] 63 degrees MUSE R [place] -55 degrees MUSE T Wave [place] 40 degrees MUSE Specimen Anatomical Collection Method Collection Time Receive d Time (Source) Location / / Volume Laterality 10/25/2018 10:49 10/25/2018 AM WARDROBE SUPERVISOR 10:55 AM WARDROBE SUPERVISOR Impressions MUSE - 10/25/2018 10:55 AM WARDROBE SUPERVISOR Sinus rhythm Premature ventricular complexes Anteroseptal infarct [...] 2D ECHO DOPPLER COLOR (10/25/2018 10:03 AM WARDROBE SUPERVISOR) Patholo gist Method Time Signature Ejection Fraction [...] / / Volume Laterality 10/25/2018 9:17 AM WARDROBE SUPERVISOR Narrative 10/25/2018 10:32 AM WARDROBE SUPERVISOR This result has an attachment that is no t available. See PDF For Result Procedure Note Fazal Travis M.D. - 10/25/2018Format ting of this note might be different from the original. See PDF For Result Natasha Chai Fagan APRN, C.N.P., M.S.N. CV ECHO OR OCEDURES DX Chest AP or PA and Lateral 2 Views (10/25/2018 7:28 AM WARDROBE SUPERVISOR) Anatomical Region Laterality Modality Chest, Thoracic RST LOS, Thoracic ARZ LOS, Thoracic N/A Digital Radiography FLA LOS Specimen (Source) Anatomical Collection Method Collection Time Re ceived Time Location / / Volume Laterality 10/25/2018 8:09 AM WARDROBE SUPERVISOR Impressions 10/25/2018 8:10 AM WARDROBE SUPERVISOR IMPRESSION: ??Tortuous aorta. Slight scarring left base. Chest otherwise negative. No change since 10/14/2016. Narrative 10/25/2018 8:10 AM WARDROBE SUPERVISOR EXAM: ??DX CHEST AP OR PA AND [...] PROCEDURES (ABNORMAL) Lipid Panel (10/25/2018 6:51 AM WARDROBE SUPERVISOR) [facility] Method Time Signature Cholesterol, 202 (H) mg/dL 10/25/2018 [facility] Total 7:56 AM [facility] Comment: ----REFERENCE VALUE---- Desirable: < 200 Borderline high: 200 - 239 High: > or = 240 Triglycerides 64 mg/dL 10/25/2018 7:56 AM [facility] Comment: ----REFERENCE VALUE---- Normal: <150 Borderline high: 150-199 High: 200-499 Very high: > or =500 Cholesterol, HDL, S 77 >=40 mg/dL 10/25/2018 7:56 AM [facility] Calculated LDL 112 mg/dL 10/25/2018 7:56 AM [facility] Comment: ----REFERENCE VALUE---- Desirable: <100 Above Desirable: 100-129 Borderline high: 130-159 High: 160-189 Very high: > or =190 Cholesterol, Non-HDL, 125 mg/dL 10/25/2018 7:5 6 AM [facility] [place] [facility] Comment: ----REFERENCE VALUE---- Desirable: <130 Above Desirable: 130-159 Borderline high: 160-189 High: 190-219 Very high: > or =220 Specimen Anatomical Collection Method Collection Time Receive d Time (Source) Location / / Volume Laterality Blood (Blood, 10/25/2018 6:51 AM 10/25/20 18 7:13 Venous) WARDROBE SUPERVISOR AM WARDROBE SUPERVISOR Radha Eastman APRN.N.P., M.S.N. LAB BLOOD ADD-ON Performing Organization Address City/[facility]/ZIP Code Phon e Number [facility] - [address] [place] [phone] [facility] (ABNORMAL) S-TSH (Thyroid-Stimulating Hormone - Sensitive) (10/25/2018 6:51 AM WARDROBE SUPERVISOR) [facility] Method Time Signature TSH, Sensitive 0.2 (L) 0.3 - 4.2 10/25/2018 [facility] mIU/L 7:56 AM WARDROBE SUPERVISOR LABORATORIES - [facility] Specimen Anatomical Collection Method Collection Time Receive d Time (Source) Location / / Volume Laterality Blood (Blood, 10/25/2018 6:51 AM 10/25/20 18 7:13 Venous) WARDROBE SUPERVISOR AM WARDROBE SUPERVISOR Natasha Fagan APRN, C.N.P., M.S.N. LAB BLOOD ADD-ON Performing Organization Address City/[facility]/ZIP Code Phon e Number [facility] - [address] [place] [address] [facility] AST (Aspartate Aminotransferase) (10/25/2018 6:51 AM WARDROBE SUPERVISOR) [facility] Method Time Signature Aspartate 27 8 - 48 10/25/2018 [facility] Aminotransferase U/L 7:56 AM WARDROBE SUPERVISOR LABORATORIE S - (AST), [facility] Specimen Anatomical Collection Method Collection Time Receive d Time (Source) Location / / Volume Laterality Blood (Blood, 10/25/2018 6:51 AM 10/25/20 18 7:13 Venous) WARDROBE SUPERVISOR AM WARDROBE SUPERVISOR Danny Eastman APRNNLibrado., M.S.N. LAB BLOOD ADD-ON Performing Organization Address City/[facility] Code Phon e Number [facility] - [address] [place] [phone] [facility] BUN (Blood Urea Nitrogen) (10/25/2018 6:51 AM WARDROBE SUPERVISOR) P athologist Signature BUN (Blood 23 8 - 24 10/25/2018 [facility] Urea mg/dL 7:56 AM WARDROBE SUPERVISOR LABORATORIES - Nitrogen), [facility] Specimen Anatomical Collection Method Collection Time Receive d Time (Source) Location / / Volume Laterality Blood (Blood, 10/25/2018 6:51 AM 10/25/20 18 7:13 Venous) WARDROBE SUPERVISOR AM WARDROBE SUPERVISOR Natasha Fagan APRN, C.N.P., M.S.N. LAB BLOOD ADD-ON Performing Organization Address City/State/ZIP Code Phon e Number [facility] - [address] [place] [phone] [facility] Creatinine with Estimated GFR (10/25/2018 6:51 AM WARDROBE SUPERVISOR) Analysis Performed At Patho logist Time Signature Creatinine 0.88 0.74 - 10/25/2018 [facility] 1.35 mg/dL 7:56 AM WARDROBE SUPERVISOR LABORATORIES - [facility] eGFR-Non 84 >=60 10/25/2018 [facility] Black/ mL/min/BSA 7:56 AM WARDROBE SUPERVISOR LABORATORIES - [facility] Comment: ----ADDITIONAL INFORMATION---- Estimated GFR calculated using the 2009 CKD_EPI creatinine equation. eGFR-Black/ >90 >=60 mL/min/BSA 10/25/2018 7:56 [facility] Angolan AM WARDROBE SUPERVISOR LABORATORIES - [facility] Comment: ----ADDITIONAL INFORMATION---- Estimated GFR calculated using the 2009 CKD_EPI creatinine equation. Specimen Anatomical Collection Method Collection Time Receive d Time (Source) Location / / Volume Laterality Blood (Blood, 10/25/2018 6:51 AM 10/25/20 18 7:13 Venous) WARDROBE SUPERVISOR AM WARDROBE SUPERVISOR Natasha Fagan APRN, C.N.P., M.S.N. LAB BLOOD ADD-ON Performing Organization Address City/[facility]/ZIP Code Phon e Number [facility] - [address] [place] [phone] [facility] Potassium (10/25/2018 6:51 AM WARDROBE SUPERVISOR) P athologist Signature Potassium, S 4.6 3.6 - 5.2 10/25/2018 [facility] mmol/L 7:56 AM WARDROBE SUPERVISOR LABORATORIES - [facility] Specimen Anatomical Collection Method Collection Time Receive d Time (Source) Location / / Volume Laterality Blood (Blood, 10/25/2018 6:51 AM 10/25/20 18 7:13 Venous) WARDROBE SUPERVISOR AM WARDROBE SUPERVISOR Natasha Faagn APRN, C.N.P., M.S.N. LAB BLOOD ADD-ON Performing Organization Address City/State/ZIP Code Phon e Number [facility] - [address] [place] [phone] [facility] (ABNORMAL) Sodium (10/25/2018 6:51 AM WARDROBE SUPERVISOR) P athologist Signature Sodium, S 133 (L) 135 - 145 10/25/2018 [facility] mmol/L 7:56 AM WARDROBE SUPERVISOR LABORATORIES - [facility] Specimen Anatomical Collection Method Collection Time Receive d Time (Source) Location / / Volume Laterality Blood (Blood, 10/25/2018 6:51 AM 10/25/20 18 7:13 Venous) WARDROBE SUPERVISOR AM WARDROBE SUPERVISOR Natasha Fagan APRN, C.N.P., M.S.N. LAB BLOOD ADD-ON Performing Organization Address City/State/ZIP Code Phon e Number [facility] - [address] [place] [phone] [facility] CBC without Differential (10/25/2018 6:51 AM WARDROBE SUPERVISOR) Patholo gist Method Time Signature Hemoglobin 14.1 13.2 - 10/25/2018 [facility] 16.6 g/dL 7:[address] [facility] Hematocrit 41.6 38.3 - 10/25/2018 [facility] 48.6 % 7:[address] [facility] Erythrocytes 4.48 4.35 - 10/25/2018 [facility] 5.65 7:36 AM [facility] - x10(12)/L [facility] MCV 92.9 78.2 - 10/25/2018 [facility] 97.9 fL 7:36 AM [facility] RBC Distrib Width 13.3 11.8 - 10/25/2018 [facility] 14.5 % 7:[address] [facility] Platelet Count 205 135 - 317 10/25/2018 [facility] x10(9)/L 7:36 AM [facility] Leukocytes 5.4 3.4 - 9.6 10/25/2018 [facility] x10(9)/L 7:36 AM [facility] Specimen Anatomical Collection Method Collection Time Receive d Time (Source) Location / / Volume Laterality Blood (Blood, 10/25/2018 6:51 AM 10/25/20 18 7:13 Venous) WARDROBE SUPERVISOR AM WARDROBE SUPERVISOR Radha Eastman APRN.N.Franklin., M.S.N. LAB BLOOD ADD-ON Performing Organization Address City/State/ZIP Code Phon e Number [facility] - [address] [place], [place] [address] [facility] documented in this encounter Visit Diagnoses Diagnosis Failure Heart (HCC) - Primary Failure Heart (HCC) Failure Heart (HCC) documented in this encounter
--- OUTSIDE RECORDS SUMMARY | 2022-08-30 08:43 | XMS_ITS | Encounter Summary ---
:1945 Author Organization [facility] Address [address] [place] [address] Care Team Providers Name Role Phone Unavailable [...] or relatives? How often do you attend mandaeism or More than 4 times per year 10/15/2019 nondenominational services? Do you belong to any clubs or Yes 10/15/2019 organizations such as mandaeism groups, unions, fraternal or athletic groups, or [...] Natasha Mullins APRN, C.N.P., M.S.N. [address] [place] [phone] (Joanie rk) 10/11/2022 Ancillary Procedure Cardiovascular Disease Natasha Cramer APRN, Radha.N.P., M.S.N. [address] [place] [phone] (Wo rk) 10/11/2022 Appointment Cardiovascular Disease Natasha Mullins APRN, Radha.N.P., M.S.N. [address] [place] [phone] (Wo rk) 10/12/2022 Office Visit Cardiovascular Disease Natasha Mullins APRN, C.N.P., M.S.N. [address] [place] [phone] (Wo rk) documented as of this encounter Visit Diagnoses Not on filedocumented in this encounter
--- OUTSIDE RECORDS SUMMARY | 2022-08-30 08:43 | XMS_ITS | Encounter Summary ---
:1945 Author Organization [facility] Address [address] [place] [address] Care Team Providers Name Role Phone Elsewhere, Pcp Primary Care Provider Unavailable Reason for Referral Outpatient (Routine) - Closed Specialty Diagnoses / Procedures Referred By Contact Refer red To Contact Cardiovascular Disease Lauren Mullins APRN, C.NRenetta, M.S.N. [address] [place] [phone] Referral ID Status Reason Start Date Expiration Date Visits Requ ested Visits Authorized [id number] Closed 10/25/2018 10/25/2019 1 1 MAKER Reason for Visit Appointment Request (Routine) - Closed Specialty Diagnoses / Procedures Referred By Contact Refer red To Contact Cardiovascular Disease Natasha Mullins APRN, C.N.P., M.S.N. [address] [place] [phone] Referral ID Status Reason Start Date Expiration Date Visits Requ ested Visits Authorized [id number] Closed 03/07/2018 09/03/2018 1 Encounter Details Date Type Department Care Team Description 10/25/2018 Office Visit Department of Chai Fagan, Cardiomyop athgenaro Ischemic (Primary Dx); Cardiovascular Medicine Natasha, DEPUTY CHIEF SHERIFF, Chr onic Systolic (Congestive) Heart Failure (HCC); in [facility] milan Anderson, M.S.N. Hyperlipidemia [address] [place] [phone] Social History Tobacco Use Types Packs/Day Years [...] Comments Blood Pressure 96/66 10/25/2018 2:02 PM TACK MAKER Pulse 84 10/25/2018 2:02 PM TACK MAKER Temperature 36.4 ??C (97.5 ??F) 10/25/2018 1:58 PM TACK MAKER Respiratory Rate - - Oxygen Saturation - - Inhaled Oxygen Concentration - - Weight 77.8 kg (171 lb 8.3 oz) 10/25/2018 1:58 PM TACK MAKER Height - - Body Mass Index 25.67 10/21/2017 12:48 PM TACK MAKER documented in this encounter Progress Notes Natasha [...] falls. No edema. He has seen his finishing range feeder and required no adjustment to his thyroid [...] / PLAN #1 Cardiomyopathy Ischemic Patient is [place] heart Association functional class one and euvolemic. [...] thyroid resection on supplementation Patient saw his finishing range feeder in July. He is aware that he runs very slightly hyperthyroid and prefers that given the underlying substrate. Return in one year. Patient encouraged to contact the office sooner if he develops any symptoms of heart failure or ischemia. Natasha Fagan APRN, C.N.P., M.S.N. 10/25/18 MAKER documented in this encounter Plan of Treatment Upcoming Encounters Date Type Specialty Care Team Description 10/11/2022 Appointment Laboratory Medicine Natasha Mullins APRN, Radha.N.P., M.S.N. [address] [place] [phone] (Wo rk) 10/11/2022 Ancillary Procedure Cardiovascular Disease Natasha Cramer APRN, C.N.P., M.S.N. [address] [place] [phone] (Wo rk) 10/11/2022 Appointment Cardiovascular Disease Natasha Mullins APRN, Radha.N.P., M.S.N. [address] [place] [phone] (Wo rk) 10/12/2022 Office Visit Cardiovascular Disease Natasha Mullins APRN, C.N.P., M.S.N. [address] [place] [phone] (Wo rk) Scheduled Referrals Name Type Priority Associated Order Schedule Diagnoses Cardiovascular Disease Outpatient Referral Routine Expected: office visit (clinic) 2018 (Approximate), Expires: 10/25/2021 documented as of this encounter Results ECG 12 Lead (10/15/2019 11:46 AM TACK MAKER) P athologist Signature Ventricular Rate 72 BPM MUSE ECG/Min TX Interval 190 ms MUSE QRSD Interval 150 ms MUSE QT Interval 420 ms MUSE QTC Interval 459 ms MUSE P Hibbs 60 degrees MUSE R Hibbs -21 degrees MUSE T Wave Hibbs 55 degrees MUSE Specimen Anatomical Collection Method Collection Time Receive d Time (Source) Location / / Volume Laterality 10/15/2019 11:46 10/15/2019 AM TACK MAKER 12:01 PM TACK MAKER Impressions MUSE - 10/15/2019 12:01 PM TACK MAKER Normal sinus rhythm Right bundle branch block [...] was found Reviewed by WALESKA Clarke Natasha Chai Fagan APRN, C.N.P., M.S.N. ECG ORDERA BLES Performing Organization Address City/State/ZIP Code Phon e Number MUSE MUSE NA (TTE) 2D ECHO DOPPLER COLOR (10/15/2019 10:40 AM TACK MAKER) [facility] Method Time Signature Ejection Fraction 51 MC [...] / / Volume Laterality 10/15/2019 9:05 AM TACK MAKER Impressions 10/15/2019 10:51 AM TACK MAKER LEFT VENTRICLE: ??Borderline left ventricular enlargement. ??Normal [...] . For the complete report, see the [employer] Documents below. See PDF For Result Narrative 10/15/2019 10:51 AM TACK MAKER For the complete report, see the [email or web address] Documents below. Final Impressions 1. Borderline left [...] Natasha Fagan APRN, C.N.P., M.S.N. CV ECHO TX OCEDURES Lipid Panel (10/15/2019 7:39 AM TACK MAKER) P athologist Signature Cholesterol, 197 mg/dL 10/15/2019 DTL Total 9:43 AM TACK MAKER Comment: ----REFERENCE VALUE---- Desirable: < 200 Borderline high: 200 - 239 High: > or = 240 Triglycerides 71 mg/dL 10/15/2019 9:43 AM TACK MAKER DTL Comment: ----REFERENCE VALUE---- Normal: <150 Borderline high: 150-199 High: 200-499 Very high: > or =500 Cholesterol, HDL, S 75 >=40 mg/dL 10/15/2019 9:43 AM TACK MAKER DTL Calculated LDL 108 mg/dL 10/15/2019 9:43 AM TACK MAKER DT L Comment: ----REFERENCE VALUE---- Desirable: <100 Above Desirable: 100-129 Borderline high: 130-159 High: 160-189 Very high: > or =190 Cholesterol, Non-HDL, Calculated 122 mg/dL 019 9:43 AM TACK MAKER DTL Comment: ----REFERENCE VALUE---- Desirable: <130 Above Desirable: 130-159 Borderline high: 160-189 High: 190-219 Very high: > or =220 Specimen Anatomical Collection Method Collection Time Receive d Time (Source) Location / / Volume Laterality Blood (Blood, 10/15/2019 7:39 AM 10/15/20 19 8:03 Venous) TACK MAKER AM TACK MAKER Natasha Fagan APRN, C.N.P., M.S.N. LAB BLOOD ADD-ON Performing Organization Address City/State/ZIP Code Phon e Number [facility] - [address] [place], [place] [address] [employer] [facility] [place] [place] [address] Laboratories-[facility] [address] AST (Aspartate Aminotransferase) (10/15/2019 7:39 AM TACK MAKER) Patholo gist Method Time Signature Aspartate 24 8 - 48 10/15/2019 DTL Aminotransferase U/L 9:43 AM TACK MAKER (AST), S Specimen Anatomical Collection Method Collection Time Receive d Time (Source) Location / / Volume Laterality Blood (Blood, 10/15/2019 7:39 AM 10/15/20 19 8:03 Venous) TACK MAKER AM TACK MAKER Natasha Fagan APRN, C.N.P., M.S.N. LAB BLOOD ADD-ON Performing Organization Address City/[facility] Phon e Number [facility] - [address] CBC without Differential (10/15/2019 7:39 AM TACK MAKER) P athologist Signature Hemoglobin 14.6 13.2 - 10/15/2019 DTL 16.6 g/dL 8:15 AM TACK MAKER Hematocrit 44.1 38.3 - 10/15/2019 DTL 48.6 % 8:15 AM TACK MAKER Erythrocytes 4.76 4.35 - 10/15/2019 DTL 5.65 8:15 AM TACK MAKER x10(12)/L MCV 92.6 78.2 - 10/15/2019 DTL 97.9 fL 8:15 AM TACK MAKER RBC Distrib Width 13.3 11.8 - 10/15/2019 DTL 14.5 % 8:15 AM TACK MAKER Platelet Count 206 135 - 317 10/15/2019 DTL x10(9)/L 8:15 AM TACK MAKER Leukocytes 5.2 3.4 - 9.6 10/15/2019 DTL x10(9)/L 8:15 AM TACK MAKER Specimen Anatomical Collection Method Collection Time Receive d Time (Source) Location / / Volume Laterality Blood (Blood, 10/15/2019 7:39 AM 10/15/20 19 8:03 Venous) TACK MAKER AM TACK MAKER Natasha Fagan APRN, C.N.P., M.S.N. LAB BLOOD ADD-ON Performing Organization Address City/[facility] Code Phon e Number [facility] - 200 [place], [place] [address] [place] [address] Sodium (10/15/2019 7:39 AM TACK MAKER) P athologist Signature Sodium, S 135 135 - 145 10/15/2019 9:43 DTL mmol/L AM TACK MAKER Specimen Anatomical Collection Method Collection Time Receive d Time (Source) Location / / Volume Laterality Blood (Blood, 10/15/2019 7:39 AM 10/15/20 19 8:03 Venous) TACK MAKER AM TACK MAKER Natasha Fagan APRN, C.N.P., M.S.N. LAB BLOOD ADD-ON Performing Organization Address City/[facility] Phon e Number [facility] - [address] [place] [address] [facility] 200 [facility] Potassium (10/15/2019 7:39 AM TACK MAKER) P athologist Signature Potassium, S 4.7 3.6 - 5.2 10/15/2019 DTL mmol/L 9:43 AM TACK MAKER Specimen Anatomical Collection Method Collection Time Receive d Time (Source) Location / / Volume Laterality Blood (Blood, 10/15/2019 7:39 AM 10/15/20 19 8:03 Venous) TACK MAKER AM TACK MAKER Danny Eastman APRNNLibrado., M.S.N. LAB BLOOD ADD-ON Performing Organization Address City/[facility] Phon e Number [facility] - [address] Creatinine with Estimated GFR (10/15/2019 7:39 AM TACK MAKER) P athologist Signature Creatinine 0.90 0.74 - 10/15/2019 DTL 1.35 mg/dL 9:43 AM TACK MAKER eGFR-Non 83 >=60 10/15/2019 DTL Black/ mL/min/BSA 9:43 AM TACK MAKER Swazi Comment: ----ADDITIONAL INFORMATION---- Estimated GFR calculated using the 2009 CKD_EPI creatinine equation. eGFR-Black/ >90 >=60 mL/min/BSA 2018 9:43 AM TACK MAKER DTL Comment: ----ADDITIONAL INFORMATION---- Estimated GFR calculated using the 2009 CKD_EPI creatinine equation. Specimen Anatomical Collection Method Collection Time Receive d Time (Source) Location / / Volume Laterality Blood (Blood, 10/15/2019 7:39 AM 10/15/20 19 8:03 Venous) TACK MAKER AM TACK MAKER Natasha Fagan APRN, C.N.P., M.S.N. LAB BLOOD ADD-ON Performing Organization Address City/[facility] Phon e Number [facility] - [address] [address] Laboratories-[address] BUN (Blood Urea Nitrogen) (10/15/2019 7:39 AM TACK MAKER) P athologist Signature BUN (Blood Urea 20 8 - 24 10/15/2019 DTL Nitrogen), S mg/dL 9:43 AM TACK MAKER Specimen Anatomical Collection Method Collection Time Receive d Time (Source) Location / / Volume Laterality Blood (Blood, 10/15/2019 7:39 AM 10/15/20 19 8:03 Venous) TACK MAKER AM TACK MAKER Natasha Fagan APRN, C.N.P., M.S.N. 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
--- OUTSIDE RECORDS SUMMARY | 2022-08-30 08:43 | XMS_ITS | Encounter Summary ---
:1945 Author Organization [facility] Address [address] [place] [address] Care Team Providers Name Role Phone Unavailable Primary Care Provider Unavailable Reason for Visit Reason Comments Med Refill Encounter Details Date Type Department Care Team Description 10/12/2018 Refill Department of Cardiovascular Jace Rizvi, Med Refill Medicine in [facility] R.., C.M .S.R.N. [place] [address] [facility] [address] [place] [address] [place] [phone] Social History Tobacco Use Types Packs/Day Years [...] Natasha Mullins APRN, C.N.P., M.S.N. [address] [place] [phone] (Wo rk) 10/11/2022 Ancillary Procedure Cardiovascular Disease Natasha Cramer APRN, C.N.P., M.S.N. [address] [place] [phone] (Wo rk) 10/11/2022 Appointment Cardiovascular Disease Natasha Mullins APRN, Radha.N.[place]., M.S.N. [address] [place] [phone] (Wo rk) 10/12/2022 Office Visit Cardiovascular Disease Natasha Mullins APRN, Radha.N.[place]., M.S.N. [address] [place] [phone] (Wo rk) documented as of this encounter Visit Diagnoses Not on filedocumented in this encounter
--- OUTSIDE RECORDS SUMMARY | 2022-08-30 08:44 | XMS_ITS | Encounter Summary ---
:1945 Author Organization [facility] Address [address] [place] [address] Care Team Providers Name Role Phone Unavailable [...] Medicine Natasha Mullins APRN, Radha.N.[place]., M.S.N. [address] [place] [phone] (Joanie velázquez) 10/11/2022 Ancillary Procedure Cardiovascular Disease Natasha Cramer APRN, Radha.N.P., M.S.N. [address] [place] [phone] (Joanie velázquez) 10/11/2022 Appointment Cardiovascular Disease Natasha Mullins APRN, C.N.P., M.S.N. [address] [place] [phone] (Wo rk) 10/12/2022 Office Visit Cardiovascular Disease Natasha Mullins APRN, C.N.P., M.S.N. [address] [place] [address] (Wo rk) documented as of this encounter Visit Diagnoses Not on filedocumented in this encounter
--- OUTSIDE RECORDS SUMMARY | 2022-08-30 08:44 | XMS_ITS | Encounter Summary ---
:1945 Author Organization [facility] Address [address] [place] [address] Care Team Providers Name Role Phone Unavailable Primary Care Provider Unavailable Encounter Details Date Type Department Care Team Description 07/10/[address] [facility] Cinda Pereira M.D. [address] [place] [phone] (Wo rk) Social History Tobacco Use [...] Pereira M.D. - 07/10/2010 10:30 AM CDT [id number] Quick Note: Letter sent. Chol high. Should see him back. prob needs physician general practice then statin. Source: [facility] RWMCHXTRANSXSYS Document Id: [id number] JÚNIORT Singh Pereira M.D. - 07/10/2010 10:30 AM CDT [id number] CLINIC ENCOUNTER SUBJECTIVE: The patient presents today to establish care and have an annual physical. He says he has a history of allergic rhinitis and asthma, followed by [facility] in [place]. He says he is on sublingual therapies. [...] grandchildren. 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 Enjoys golfing once in a while. He does not drink or smoke. He was previously followed at [facility], but is changing here for insurance reasons. [...] meantime. Singh Pereira M.D. DARON/livier cc: Source: [facility] Document Id: [id number] Electronically signed by Conversion, [facility] Beverage Steward [id number] at 04/17/2017 2:18 PM CDT Singh Pereira M.D. - 07/10/2010 10:30 AM CDT [id number] This office note has been dictated. Fasting. F/u. Source: [facility] Document Id: [id number] Electronically signed by Conversion, [facility] Beverage Steward [id number] at 04/17/2017 2:18 PM CDT documented in this encounter Plan of Treatment Upcoming Encounters Date Type Specialty Care Team Description 10/11/2022 Appointment Laboratory Medicine Natasha Mullins APRN, C.N.P., M.S.N. [address] [place] [phone] (Wo rk) 10/11/2022 Ancillary Procedure Cardiovascular Disease Natasha Cramer APRN, Radha.NRenetta, M.S.N. [address] [place] [phone] (Joanie rk) 10/11/2022 Appointment Cardiovascular Disease Natasha Mullins APRN, C.Vandana, M.S.N. [address] [place] [phone] (Joanie rk) 10/12/2022 Office Visit Cardiovascular Disease Natasha Mullins APRN, Radha.NLibrado., M.S.N. [address] [place] [phone] (Joanie rk) documented as of this encounter Visit Diagnoses Not on filedocumented in this encounter
--- OUTSIDE RECORDS SUMMARY | 2022-08-30 08:44 | XMS_ITS | Encounter Summary ---
:1945 Author Organization [facility] Address [address] [place] [address] Care Team Providers Name Role Phone Unavailable Primary Care Provider Unavailable Encounter Details Date Type Department Care Team Description 07/16/2010 Hospital Encounter [facility] Cinda Pereira M.D. [address] [place] [phone] (Wo rk) Social History Tobacco Use [...] Pereira M.D. - 07/16/2010 12:00 AM CDT [id number] Levi Khanan [address] [place] [phone] [facility] July 16, 2010 Dear Barrington, I am [...] near future. Sincerely, Singh Pereira MD Source: [facility] RWHXTRANSXRTFSYS Document Id: [id number] Electronically signed by Violeta, [facility] Shredded Filler Machine Wrapper Layer [id number] at 04/17/2017 7:45 AM CDT documented in this encounter Plan of Treatment Upcoming Encounters Date Type Specialty Care Team Description 10/11/2022 Appointment Laboratory Medicine Natasha Mullins APRN, Radha.N.P., M.S.N. [address] [place] [phone] (Joanie velázquez) 10/11/2022 Ancillary Procedure Cardiovascular Disease Natasha Cramer APRN, Radha.N.P., M.S.N. [address] [place] [phone] (Joanie velázquez) 10/11/2022 Appointment Cardiovascular Disease Natasha Mullins APRN, Radha.N.P., M.S.N. [address] [place] [phone] (Joanie velázquez) 10/12/2022 Office Visit Cardiovascular Disease Natasha Mullins APRN, Radha.N.P., M.S.N. [address] [place] [phone] (Wo rk) documented as of this encounter Visit Diagnoses Not on filedocumented in this encounter
== END 2022-08-30 08:34 | disposition home or self-care (01) ==
LOC: OP CLINIC 08:33
PROVIDERS: PCP Family Medicine; Visit Provider Internal Medicine Gastroenterology
DX: D50.9 Iron deficiency anemia, unspecified (principal); K44.9 Diaphragmatic hernia without obstruction or gangrene; K31.89 Other diseases of stomach and duodenum
CPT/HCPCS: 43239; 88305; 88342; J2250; J3010

== ENCOUNTER 2023-08-09 06:16 | Day surgery (SDC) | payer MEDICARE, BC, SELFPAY ==
[2023-08-09] VITALS (7 sets, daily range): BP systolic 120–147; BP diastolic 69–90; PULSE 56–80; RESP 16; TEMP 36.6; O2SAT 98; BMI 27.1
[2023-08-09] MEDS: LACTATED RINGERS 1000 ML 1,000 ML 100 ML IV (07:45)
[2023-08-09] MEDS: CEFAZOLIN 2 GM INJ IVP (07:50)
[2023-08-09] MEDS: LIDOCAINE 1% MDV 9 ML INJECTION (09:01)
[2023-08-09] MEDS: BUPIVACAINE 0.25% 30 ML INJECTION (09:01)
--- NOTE | 2023-08-09 09:02 | PM.GSPRC ---
Operative Note Pre-op diagnosis: Right inguinal hernia Post-op diagnosis: Same, direct Type of Procedure: Open right inguinal hernia repair Indications: Patient is an 78-year-old male who presented to clinic a symptomatic right inguinal hernia. Different treatment options were reviewed, with him deciding to proceed with operative intervention. Risks and benefits of operative intervention were discussed at length with the patient. Risks included but was not limited to: Bleeding, infection, risk of damage to surrounding structures, possible need for additional procedures, risk of recurrence and postoperative complications such as pneumonia, pulmonary emboli or DE. All questions and concerns were addressed with the patient agreeing to proceed. Procedure Description: After discussing the risks and benefits of the procedure, the patient signed informed consent.? The operative site was marked and the patient was brought to the operating room and placed on the operating table in supine position.? Care was taken to pad the patient's pressure points.?? The patient was then given sedation by anesthesia.?? The operative site was then prepped and draped in the usual sterile fashion.? A time-out was then performed. Local anesthetic was injected into the skin and subcutaneous tissue overlying the inguinal canal. An oblique incision would was made over the external ring. Dissection was carried down into the subcutaneous tissue using cautery until the external oblique fascia was encountered. This was cleared off. The external ring was identified and after injection of more local anesthetic, the external oblique was incised using a knife. This was extended using the Metzenbaum scissors with care to dissect the underlying cord structures away before cutting. The cord was cleared from the inside of the inguinal canal and looped with a [place] drain. A large direct inguinal hernia was identified. The floor of the inguinal canal was dissected free from the inguinal ligament. The cord structure was thoroughly dissected, with no identification of indirect hernia. A large piece of plug and patch mesh was used. The plug was placed in the inguinal canal floor and secured in place with several interrupted 0 Nurolon suture. A piece of polypropylene mesh was obtained and cut to size. This was placed over the plug and secured to the pubic tubercle using interrupted 0 Nurolon suture. The mesh was then secured with interrupted 0 Nurolon suture along the inguinal ligament and superiorly along the transversalis fascia securing the tails behind the cord and recreating the internal ring. Wound was examined for hemostasis. The external oblique fascia was then reapproximated with absorbable suture. The wound was then closed in layers including Omid's fascia and the dermis with the cervical suture. The skin was then closed with a running subcuticular suture. Sterile dressings were applied. Instrument sponge and needle counts were correct at the end of the case. The patient was woken and taken to the PACU in stable condition. Sterile dressings were then applied. ? The patient was then woken and transported to the recovery area in stable condition. ? The patient tolerated the procedure well. Findings: Large direct inguinal hernia, right Anesthesia: MAC and local Surgeon: Sylvie Jeong MD Estimated blood loss (mL): 2 Condition: stable Disposition: PACU Date of procedure: 08/09/23
--- NOTE | 2023-08-09 09:50 | W.ANESCHARGE ---
Anesthesia Charges Start Date/Time Anesthesia Start Date: 08/09/23 Anesthesia Start Time: 07:40 Stop Date/Time Anesthesia Stop Date: 08/09/23 Anesthesia Stop Time: 09:17
--- NOTE | 2023-08-09 10:13 | W.ANESCHARGE ---
Anesthesia Charges Start Date/Time Anesthesia Start Date: 08/09/23 Anesthesia Start Time: 07:40 Stop Date/Time Anesthesia Stop Date: 08/09/23 Anesthesia Stop Time: 09:17 Summary Extremes of Age - Over 70 or under 1: MDA
== END 2023-08-09 10:40 | disposition home or self-care (01) ==
PROVIDERS: PCP Family Medicine; Visit Provider Surgery
PROC: (CPT 49505; principal; 2023-08-09 07:30)
DX: K40.90 Unilateral inguinal hernia, without obstruction or gangrene, not specified as recurrent (principal)
CPT/HCPCS: 49505; 00830; 99100; C1781; J0665; J0690; J1100; J1885; J2405; J2704; J3010; J3490; J7120

== ENCOUNTER 2023-08-10 21:47 | Emergency (ER) | payer MEDICARE, BC, SELFPAY ==
[2023-08-10 21:51] VITALS: BP 142/76; PULSE 85; RESP 20; TEMP 36.6; O2SAT 97; BMI 26.6
--- NOTE | 2023-08-10 22:03 | ED_ITS ---
HPI - General Adult General Chief complaint: Constipation Stated complaint: hernia surg 08/09, consitpated Time Seen by Provider: 08/10/23 22:00 History of Present Illness HPI narrative: Pt aox4, ABCs intact. Pt c/o having issues with urination and being unable to have a bowel movement. Patient had hernia surgery yesterday. 78-year-old man presenting to the emergency department with complaint of difficulty with urination and 3 days without a bowel movement. Yesterday did have right open inguinal herniorrhaphy. It is hard for him to tell if he has a sense of pressure at therefore need to have a bowel movement. Spouse has noted him to be particularly restless. He new he would not be able to sleep. No fever. He knew himself to be sore postoperatively; that he had had a catheter placement. He has only taken acetaminophen; no opiates. Later conversation reveals he had anticipated straight cathing at some point in the more remote past. Related Data Home Medications Medication Instructions Recorded Confirmed albuterol sulfate 90 mcg/actuation 1 - 2 inh inhalation Q4H PRN 08/04/23 08/10/23 aerosol inhaler aspirin 81 mg chewable tablet DAILY 08/04/23 carvedilol 25 mg tablet mg BID 08/04/23 cetirizine 10 mg tablet mg PRN 08/04/23 cholecalciferol (vitamin D3) 25 DAILY 08/04/23 mcg (1,000 unit) tablet clopidogrel 75 mg tablet mg DAILY 08/04/23 fluticasone 250 mcg-salmeterol 50 1 inh inhalation BID 08/04/23 08/10/23 mcg/dose blistr powdr for inhalation (Advair Diskus) fluticasone propionate 50 intranasal DAILY 08/04/23 mcg/actuation nasal spray,suspension lisinopril 40 mg tablet mg DAILY 08/04/23 montelukast 10 mg tablet mg 08/04/23 nitroglycerin 0.4 mg sublingual mg PRN 08/04/23 tablet rosuvastatin 40 mg tablet mg 08/04/23 tamsulosin 0.4 mg capsule mg PO 08/04/23 Previous Rx's Medication Instructions Recorded oxycodone 5 mg tablet 2.5 mg (1/2 x 5 mg) PO Q6H PRN 08/09/23 pain #10 tabs Allergies Allergy/AdvReac Type Severity Reaction Status Date / Time iodine Allergy Mild rash,itchin Verified 08/10/23 21:54 g pneumococcal vaccine Allergy Mild Headache, Verified 08/10/23 21:54 [From Pneumovax-] body aches clindamycin Allergy Unknown Unknown Verified 08/10/23 21:54 DUST MITES Allergy Mild Sneezing Uncoded 05/27/22 14:02 Penicillin Allergy Mild itching Uncoded 05/27/22 14:02 CONTRAST DYE Allergy Unknown itching Uncoded 05/27/22 14:02 MOLDS Allergy Unknown Sneezing Uncoded 05/27/22 14:02 Shellfish Allergy Allergy Unknown nausea and Uncoded 05/27/22 14:02 vomiting Review of Systems Status of ROS: Reports: 6 or more systems reviewed and unremarkable except as noted in History and below [facility] Medical History Asthma ?J45.909 - Unspecified asthma, uncomplicated (ICD-10) Papillary thyroid carcinoma ?C73 - Malignant neoplasm of thyroid gland (ICD-10) Lymphoma ?C85.90 - Non-Hodgkin lymphoma, unspecified, unspecified site (ICD-10) STEMI (ST elevation myocardial infarction) ?I21.3 - ST elevation (STEMI) myocardial infarction of unspecified site (ICD- 10) Surgical History History of total thyroidectomy ?E89.0 - Postprocedural hypothyroidism (ICD-10) Social History Smoking Status: Never smoker How often do you have a drink containing alcohol: never AUDIT-C Alcohol total score: 0 Non-prescribed substance use: denies use service: Yes Exam Narrative: Exam Narrative: Pleasant. Does seem a little uncomfortable. Skin is warm dry. Breathing easily. Heart in regular rate and rhythm. Extremities are without edema and well perfused. Abdomen is normoactive bowel sounds is soft. Right inguinal area with intact postoperative incision covered by Steri-Strips. Some inferior bruising and mild swelling. Most tenderness and fullness in the suprapubic area. Const: Vital Signs, click to edit/add: Vital Signs - 24 hr 08/10/23 21:51 Temperature 97.8 F Pulse Rate [Pulse Oximeter] 85 Respiratory Rate 20 Blood Pressure [Ri ght Upper Arm] 142/76 H Pulse Oximetry 97 Oxygen Delivery Me thod Room Air Documenting provider has reviewed patient's vital signs: yes Course Vital Signs Vital signs: Initial Vital Signs Temperature 97.8 F 08/10/23 21:51 Temperature Source Temporal Artery Scan 08/10/23 21:51 Pulse Rate 85 08/10/23 21:51 Respiratory Rate 20 08/10/23 21:51 Blood Pressure 142/76 H 08/10/23 21:51 Blood Pressure Mean 98 08/10/23 21:51 Blood Pressure Position Sitting 08/10/23 21:51 Pulse Oximetry 97 08/10/23 21:51 Oxygen Delivery Method Room Air 08/10/23 21:51 Vital Signs Temperature 97.8 F 08/10/23 21:51 Pulse Rate 85 08/10/23 21:51 Respiratory Rate 20 08/10/23 21:51 Blood Pressure 142/76 H 08/10/23 21:51 Pulse Oximetry 97 08/10/23 21:51 Oxygen Delivery Method Room Air 08/10/23 21:51 Temperature 97.8 F 08/10/23 21:51 Pulse Rate 85 08/10/23 21:51 Respiratory Rate 20 08/10/23 21:51 Blood Pressure 142/76 H 08/10/23 21:51 Pulse Oximetry 97 08/10/23 21:51 Oxygen Delivery Method Room Air 08/10/23 21:51 Medical Decision Making MDM Narrative Medical decision making narrative: I would suspect majority of symptoms are due to urinary retention. Will bladder scan and treat accordingly. May need help with constipation as well. Mr. Khanna appears to think that constipation is major issue. Bladder scanned for nearly around 350 mL of fluid. I would suspect there is probably double that considering typical results from catheter placement after bladder scanner. Postvoid scanned for nearly 300. Coude tip catheter placed aided with Uro jet. Drained of nearly 600 mL of flui d. Marked improvement in symptoms. See patient discharge plan Medical Records Medical records reviewed: Yes I reviewed the patient's medical records Discharge Plan Discharge Clinical Impression: Acute urinary retention, Constipation Patient Disposition: Home w/ Parent or Adult Condition: Improved Instructions: Urinary Retention in Men (ED) Additional Instructions: Presumably you had more than 600 mL of urine in your bladder at 1 point. I am concerned that this will build up again. We are sending you with some kits for self catheterization as you are familiar. Be seen though if it seems that you starting to build up again. If you are experiencing hard stool, consider placement of an enema or suppository. You can repeat this enema in an hour or so if no good result. The suppository is something you typically leave in overnight. You can also accomplish further bowel cleanout by drinking 1/2-1 bottle of Mag citrate and repeating the next day if no good result. Consider also dosing with MiraLax equivalent in at least 10 oz of liquid twice a day. Take more less according to stool consistency. Generally increase the amount of water/liquid your drinking. FruitLax recipe Prescriptions: No Action albuterol sulfate 90 mcg/actuation HFA aerosol inhaler 1 - 2 inh inhalation Q4H PRN fluticasone propion-salmeterol [Advair Diskus] 250-50 mcg/dose blister with device 1 inh inhalation BID carvedilol 25 mg tablet BID cetirizine 10 mg tablet PRN clopidogrel 75 mg tablet DAILY aspirin 81 mg tablet,chewable DAILY fluticasone propionate 50 mcg/actuation spray,suspension INTRANASAL DAILY cholecalciferol (vitamin D3) 25 mcg (1,000 unit) tablet DAILY tamsulosin 0.4 mg capsule PO nitroglycerin 0.4 mg tablet, sublingual PRN Rx Instructions: PRN CHEST PAIN montelukast 10 mg tablet lisinopril 40 mg tablet DAILY rosuvastatin 40 mg tablet oxycodone 5 mg tablet 2.5 mg PO Q6H PRN (Reason: pain) Qty: 10 0RF Rx Instructions: take 0.5-1 tab as needed for severe pain. Follow Up/Referrals: Tucker Currie MD [Primary Care Provider] - Stand Alone Forms: [employer] Info Instructions
--- NOTE | 2023-08-10 22:39 | ED.NURSE ---
post void bladder scan 269
[2023-08-10] MEDS: lidocaine HCL 2 % JELLY (TOP) STERILE 6 ML UR (23:13)
--- NOTE | 2023-08-10 23:14 | ED.NURSE ---
Straight cath done, patient feels much better. Educated patient and on stool softener options at home including adding miralax, prune juice, increasing hydration, prunes, and OTC suppositories.
== END 2023-08-10 23:42 | disposition home or self-care (01) ==
PROVIDERS: Emergency Provider Family Medicine; PCP Family Medicine
DX: R33.9 Retention of urine, unspecified (principal); K59.00 Constipation, unspecified
CPT/HCPCS: 51702; 99283; 99284

== ENCOUNTER 2023-11-28 19:27 | Outpatient (CLI) | payer MEDICARE, BC, SELFPAY ==
--- OUTSIDE RECORDS SUMMARY | 2023-12-09 00:02 | XMS_ITS | Clinical Summary ---
Author Name Unknown Organization [facility] Address [address] [place] [address] Care Team Providers Care Ict Support Engineer Name Role Phone Elsewhere, Pcp Primary Care Provider Unavailabl e Source Comments Patient records contain information from all sites at [facility]. For routine questions regarding patient records, call [phone] during business hours, M-F 8:00 AM - 5:00 PM Central Time. Record requests for emergency care only can be directed to [phone] at any time.[facility] Allergies Active Allergy Reactions Criticality Noted Date Comments Clindamycin Other (see comments) 11/17/2007 Please Verify & complete Reaction & Severity barboza! House Dust Mite Other (see comments) Low 05/27/2022 Iodinated Contrast Media Itching,Rash Medium 11/17/2007 Possible adverse reaction to iodinated contrast given at eye center in 2006. Visi [address] scan on 12/12/13. No reaction noted. Mold Other (see comments) 08/24/2015 Please Verify & complete Reaction & Severity barboza! Penicillin Itching Medium 07/10/2010 Patient reported allergy occurred in the 1950s. No hospitalization/celine naphylaxis, only itching. Has tolerated cefazolin, ceftriaxone, and cephalexin. Penicillins Other (see comments) 07/07/2015 Please Verify & complete Reaction & Severity barboza! Pneumococcal Vaccine Headache Medium 12/24/2014 Headache and body ache Shellfish Containing Products GI intolerance Medium 07/07/2015 Nausea & Vomiting Miranda Pollen Itching Medium 07/10/2010 Seasonal Allergies: Allergic Rhinitis, Itchy watery eyes Medications Medication Sig Dispensed Refills Start Date End Date Status fluticasone propion-salmeter oL 250-50 mcg/dose diskus inhaler Inhale 1 puff daily as needed. 0 [address] Active [address] tablet Take 81 mg by mouth daily. Take for life. 0 5 Active cetirizine (ZyrTEC) 10 mg tablet Take 10 mg by mouth daily. 0 5 Active montelukast (SINGULAIR) 10 mg tablet Take 1 tablet by mouth at bedtime. 0 5 Active albuterol (PROVENTIL HFA,VENTOLIN HFA) 90 mcg/actuation inhaler Inhale 1-2 puffs as needed for wheezing or shortness of breath. 0 8 Active multivitamin tablet Take 1 tablet by mouth daily. 0 Active calcium carbonate (TUMS) 500 mg (200 mg calcium) chewable tablet Chew 1 tablet 2 (two) times a day as needed for indigestion or heartburn. 0 Active acetaminophen (TYLENOL) 500 mg capsule Take 2 capsules (1,000 mg total) by mouth every 6 (six) hours as needed for pain. 0 1 Active lisinopriL (PRINIVIL,ZESTRI L) 40 mg tablet Take 1 tablet (40 mg total) by mouth daily. 90 tablet 3 3 10/19/20 24 Active rosuvastatin (Crestor) 40 mg tablet Take 1 tablet (40 mg total) by mouth daily. 90 tablet 3 3 10/19/20 24 Active carvediloL (COREG) 25 mg tablet Take 1 tablet (25 mg total) by mouth 2 (two) times a day with meals. 60 tablet 11 3 11/01/20 24 Active tamsulosin (FLOMAX) 0.4 mg 24 hr capsule Take 2 capsules (0.8 mg total) by mouth at bedtime. 60 capsule 11 4 11/21/19 25 Active Additional Information Patient taking differently: 0.4 mgoral2 times daily, Reported on 11/29/2023 finasteride (PROSCAR) 5 mg tablet Take 1 tablet (5 mg total) by mouth daily. 90 tablet 3 4 Active levothyroxine (SYNTHROID, LEVOTHROID) 175 mcg tablet Take 1 tablet (175 mcg total) by mouth daily with breakfast. 90 tablet 3 4 Active tamsulosin (FLOMAX) 0.4 mg 24 hr capsule Take 0.4 mg by mouth at bedtime. 0 1 11/22/19 24 Discontinued(Reo rder) levothyroxine (SYNTHROID, LEVOTHROID) 175 mcg tablet Take 1 tablet (175 mcg total) by mouth every morning before breakfast. 90 tablet 3 3 11/24/19 24 Discontinued levothyroxine (SYNTHROID, LEVOTHROID) 175 mcg tablet take one tablet by mouth every morning before breakfast 90 tablet 3 4 12/05/19 24 Discontinued(Reo rder) clopidogreL (PLAVIX) 75 mg tablet Take 75 mg by mouth daily. 0 11/30/19 24 Discontinued(Sto p Taking at Discharge) doxycycline monohydrate (ADOXA) 100 mg tablet Take 1 tablet (100 mg total) by mouth 2 (two) times a day before breakfast and dinner for 7 doses. 7 tablet 0 4 12/04/19 24 cefdinir (OMNICEF) 300 mg capsule Take 1 capsule (300 mg total) by mouth 2 (two) times a day before breakfast and dinner for 7 doses. 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 Lymphadenopathy Cervical 04/23/2021 Lesion Skin Polypoid 04/28/2020 Follow Up Examination Postoperative Visit 2018 Malignant Neoplasm Of Thyroid 03/16/2019 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 Congestive Heart Failure Sys tolic Chronic Heart Failure With Reduced Ejection Fraction 10/14/2016 Cardiomyopathy Ischemic 04/15/2016 Hyperlipidemia 10/14/2015 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 Cardiomyopathy Ischemic (Primary Dx); Dyspnea On Exertion 12/05/2023 3:30 PM CLINICAL STATISTICS MANAGER Office Visit Division of Endocrinology in [place], [place] [address] [place] [phone] Loni Wu M.D. Malignant Neoplasm Of Thyroid Papillary (HCC) 12/05/2023 12:44 PM CLINICAL STATISTICS MANAGER - 12/05/2023 11:59 PM CLINICAL STATISTICS MANAGER Hospital Encounter Department of Radiology, [facility] in [place], [place] [address] [place] [phone] Loni Wu M.D. Malignant Neoplasm Of Thyroid Papillary (HCC) Discharge Disposition: Home or Self Care 12/05/2023 12:09 PM CLINICAL STATISTICS MANAGER - 12/05/2023 12:43 PM CLINICAL STATISTICS MANAGER Hospital Encounter Department of Laboratory Medicine and Pathology, [facility] in [place], [place] [address] [place] [phone] Loni Wu M.D. Malignant Neoplasm Of Thyroid Papillary (HCC); Cardiomyopathy Ischemic Discharge Disposition: Home or Self Care 12/05/2023 4:00 AM CLINICAL STATISTICS MANAGER - 12/05/2023 12:08 PM CLINICAL STATISTICS MANAGER Hospital Encounter Department of Cardiovascular Diseases in [place], [place] [address] [place] [phone] Bautista Moore M.D., M.P.H. Encounter For Checking And Testing Of Cardiac Pacemaker Pulse Generator Battery Discharge Disposition: Home or Self Care 12/05/2023 Clinical Communication Department of Cardiovascular Medicine in [address] [phone] Renetta Tyler R.N. patient update 12/02/2023 Clinical Communication Department of Cardiovascular Medicine in [place], [place] [address] [place] [phone] Renetta Tyler R.N. concern for slow atrial flutter 12/01/2023 Refill Department of Cardiovascular Medicine in [place], [place] [address] [place] [phone] Natasha Mullins APRN, C.NLibrado., M.S., M.S.N. Med Refill 11/29/2023 1:15 PM CLINICAL STATISTICS MANAGER Ancillary Procedure [facility] Emergency Department [address] [place] [phone] Hector Barragan M.D. 11/28/2023 8:45 PM CLINICAL STATISTICS MANAGER Ancillary Procedure [facility] Emergency Department [address] [place] [phone] Hector Barragan M.D. 11/28/2023 8:37 PM CLINICAL STATISTICS MANAGER - 11/30/2023 1:48 PM CLINICAL STATISTICS MANAGER Hospital Encounter [facility], [facility], Third Floor [address] [place] [phone] Hector Barragan M.D. Kinni, Harish A, M.D. Stultz, Benjamin R, M.D. Ahmad, Sumera R, M.B.B.S. Pneumonia (Primary Dx); Hypoxia; Respiratory Failure (HCC) Discharge Disposition: Home or Self Care 11/28/2023 4:00 AM CLINICAL STATISTICS MANAGER - 11/28/2023 8:36 PM CLINICAL STATISTICS MANAGER Hospital Encounter Department of Cardiovascular Diseases in [place], [place] [address] [place] [phone] Heraclio Schulz M.B.B.S. Encounter For Checking And Testing Of Cardiac Pacemaker Pulse Generator Battery Discharge Disposition: Home or Self Care 11/28/2023 Clinical Communication Department of Cardiovascular Medicine in [place], [place] [address] [place] [phone] Sofie Barba R.N. [place] recorded on pacemaker 11/25/2023 4:00 AM CLINICAL STATISTICS MANAGER - 11/25/2023 11:59 PM CLINICAL STATISTICS MANAGER Hospital Encounter Department of Cardiovascular Diseases in [place], [place] [address] [place] [phone] Dylan Dietrich M.B.B.S. Encounter For Checking And Testing Of Cardiac Pacemaker Pulse Generator Battery Discharge Disposition: Home or Self Care 11/22/2023 8:30 AM CLINICAL STATISTICS MANAGER Comprehensive Visit Department of Urology in [place], [place] [address] [place] [phone] Margaux Adams D.O. Nodule Prostate; Retention Urinary 11/22/2023 Refill Division of Endocrinology in [address] [phone] Loni Wu M.D. Med Refill 11/18/2023 7:00 AM CLINICAL STATISTICS MANAGER Clinical Communication Virtual Review in [place], [place] [address] [place] [address] Pre-visit Intake 11/15/2023 3:00 PM CLINICAL STATISTICS MANAGER Office Visit Department of Cardiovascular Medicine in [place], [place] [address] [place] [phone] Eugene Slaughter M.D., Ph.D. Cardiomyopathy Ischemic (Primary Dx) 11/15/2023 Documentation Department of Cardiovascular Medicine in [place], [place] [address] [place] [phone] Radha Gray 11/02/2023 Orders Only Department of Cardiovascular Diseases in [place], [place] [address] [place] [phone] Hugh Chisholm R.N. Encounter For Checking And Testing Of Cardiac Pacemaker Pulse Generator Battery (Primary Dx) 11/02/2023 Clinical Communication Department of Cardiovascular Medicine in [address] [phone] Kg Holguin M.D. DEVICE REGISTRATION (COMMUNICATION) 11/01/2023 4:34 PM CLINICAL STATISTICS MANAGER - 11/01/2023 7:04 PM CLINICAL STATISTICS MANAGER Surgery Division of Cardiovascular Diseases in [address] [place] [phone] Kg Holguin M.D. PPM IMPLANT - DUAL CHAMBER 11/01/2023 3:50 PM CLINICAL STATISTICS MANAGER Anesthesia Event Division of Cardiovascular Diseases in [place], [place] [address] [place] [phone] Rodrick Ortega, SANITATION INSPECTOR, CALCULATING MACHINE OPERATOR Marcela Lamas APRN, CALCULATING MACHINE OPERATOR 10/31/2023 2:44 AM CLINICAL STATISTICS MANAGER - 11/02/2023 1:04 PM CLINICAL STATISTICS MANAGER Hospital Encounter [facility], [facility], Fourth Floor [address] [place] [phone] Beau Grubbs M.D. Ben Mittal M.D., Ph.D. Block Atrioventricular Second Degree (Primary Dx) Discharge Disposition: Home or Self Care 10/31/2023 Clinical Communication Department of Urology in [place], [place] [address] [place] [phone] Margaux Adams D.O. 10/31/2023 Intake [facility] 10/30/2023 11:27 PM CLINICAL STATISTICS MANAGER - 10/31/2023 1:52 AM CLINICAL STATISTICS MANAGER Emergency [facility] [address] [place] [phone] Hernandez Bacon, P.A.-C. Shortness Of Breath (Primary Dx); Failure Heart (HCC); Bradycardia Discharge Disposition: Acute Care Hospital 10/27/2023 1:37 PM CLINICAL STATISTICS MANAGER - 10/27/2023 11:59 PM CLINICAL STATISTICS MANAGER Hospital Encounter Department of Laboratory Medicine in [place], [place] [address] [place] [phone] Dayami Murillo P.A.-C. Dysuria Discharge Disposition: Home or Self Care 10/27/2023 1:30 PM CLINICAL STATISTICS MANAGER Office Visit Department of Family Medicine, [facility], in [place], [place] [address] [place] [phone] Dayami Murillo P.A.-C. Dysuria (Primary Dx) 10/27/2023 Nurse Triage Department of Family Medicine, [facility], in [place], [place] [address] [place] [phone] Chula Ruiz R.N. Urinary Symptom 10/21/2023 8:13 AM CLINICAL STATISTICS MANAGER - 10/21/2023 9:37 AM CLINICAL STATISTICS MANAGER Emergency [facility] [address] [place] [phone] Orville Khalil P.A.-C., P.A. Beat Premature Ventricular (Primary Dx); Hyponatremia; Failure Heart (HCC); Dyspnea On Exertion Discharge Disposition: Home or Self Care 10/21/2023 Clinical Communication Department of Cardiovascular Medicine in [place], [place] [address] [place] [phone] Natasha Mullins APRN, C.N.P., M.S., M.S.N. Shortness of breath abrupt episode (Seen this morning at [facility]. See chart.) 10/20/2023 Refill Department of Cardiovascular Medicine in [place], [place] [address] [place] [phone] Natasha Mullins APRN, C.NLibrado., M.S., M.S.N. Med Refill 10/10/2023 Clinical Communication Department of Urology in [place], [place] [address] [place] [phone] Jonnathan Rahman APRN, C.N.P., Ana.N.PCarmine, M.S. 10/03/2023 3:35 PM CLINICAL STATISTICS MANAGER Ancillary Procedure Department of Urology 10/03/2023 1:30 PM CLINICAL STATISTICS MANAGER Procedure visit Department of Urology in [place], [place] [address] [place] [phone] Jonnathan Rahman APRN, C.N.P., Ana.N.P., M.S. Sadia Amato M.D. Nodule Prostate; Retention Urinary 10/03/2023 11:00 AM CLINICAL STATISTICS MANAGER Procedure visit Department of Urology in [place], [place] [address] [place] [address] [facility], C.N.P., Ana.N.P., M.S. Sherri Lopez L.P.N. Incomplete Bladder Emptying (Primary Dx); Nodule Prostate; Retention Urinary 10/03/2023 9:30 AM CLINICAL STATISTICS MANAGER Procedure visit Department of Urology in [place], [place] [address] [place] [address] rondaJonnathan APRN, C.N.PCarmine, D.N.P., M.S. Anai Wong P.A.-C. Nodule Prostate; Retention Urinary 10/03/2023 7:06 AM CLINICAL STATISTICS MANAGER - 10/03/2023 11:59 PM CLINICAL STATISTICS MANAGER Hospital Encounter Department of Laboratory Medicine and Pathology, [place], [place] [address] [place] [phone] rondaJonnathan APRN, C.N.PCarmine, Ana.N.P., M.S. Nodule Prostate; Retention Urinary Discharge Disposition: Home or Self Care 09/08/2023 1:00 PM CDT Comprehensive Visit Department of Urology in [place], [place] [address] [place] [phone] rondaJonnathan APRN, C.N.PCarmine, Ana.N.P., M.S. 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 Nodule Prostate Discharge Disposition: Home or Self Care 09/08/2023 10:28 AM CDT Hospital Encounter Department of Laboratory Medicine and Pathology, [place], [place] [address] [place] [address] [place] [phone] Nsamel, Jonnathan, SANITATION INSPECTOR, C.N.P., D.N.P., M.S. Nodule Prostate Discharge Disposition: Home or Self Care from Last 3 Months Immunizations Name Administration Dates Next Due H1N1 Inj 11/03/2009 HZV (ZOSTAVAX) 11/26/2011 HepA Adult 10/17/2003,12/24/2002 HepA, Unspecified 10/17/2003,12/24/2002 Influenza (IM) Preservative Free 09/07/2010 Influenza TIV (IM) 07/31/2018,10/30/2007, 005 Influenza high dose QV(65 ye ars or older) (PF) 09/10/2021,09/03/2020 Influenza, Injectable, Quadrivalent 07/16,09/05/2019,07/31/2018,2015,07/28/2015,08/29/2014,09/23/2011,1 ,11/03/2009,10/30/2007, 003 Influenza, Quadrivalent, Adj uvanted, Preservative Free 08/29/2023,08/03/2022 Influenza, Seasonal, Injectable 09/23/2011,10/30,10/17/2003 Influenza, Unspecified 10/30/2007 PPSV23 09/07/2012 SARS-COV-2 (COVID-19) - PFIZ ER TS(12 years or older) 04/26/2022 Td (Adult), adsorbed 01/10/2009 Td Preservative Free (TENIVA C, DECAVAC) 01/10/2009 Td, (Adult) Unspecified 08/24/1999 influenza high dose (65 year s or older) (PF) 09/05/2019,08/02/2016,07/28/2015,2013 influenza vaccine quad (FLUZONE/FLUARIX) (6 months and older)(PF) 07/26/2017 Family History Medical History Relation Name Comments No Known Problems Daughter Coronary artery disease Father vanessa lovell Heart disease Maternal Grandfather Stroke Maternal Grandmother B Asthma Mother ykle lovell Hypertension Mother kyle lovell Migraines Mother kyle lovell Old age Mother kyle lovell No Known Problems Paternal Grandfather Heart disease Paternal Grandmother Stroke Sister 1 A No Known Problems Sister 2 No Known Problems Son Relation Name Status Comments Daughter Alive Father vanessa lovell Maternal Grandfather Maternal Grandmother B Mother kyle lovell Paternal Grandfather Paternal Grandmother Sister 1 A Alive Sister 2 Alive Son Alive Social History Tobacco Use Types Packs/Day Years Used Date Smoking Tobacco: Never Passive Smoke Exposure: Past Smokeless Tobacco: Never Tobacco Cessation:Counseling Given: Not Answered Passive Exposure Comments:Growing up for Many years - Father Alcohol Use Standard Drinks/Week Comments No 0 (1 standard drink = 0.6 oz pur e alcohol) [facility] Utilities Answer Date Recorded In the past 12 months has e [employer], gas, oil, or water [facility] threatened to shut off services in your home? No 11/29/2023 Humiliation, Afraid, Rape, and Kick questionnair e Answer Date Recorded Within the last year, have y ou been afraid of your partner or ex-partner? No 11/29/2023 Within the last year, have y ou been humiliated or emotionally abused in other ways by your partner or ex-partner? No Within the last year, have y ou been kicked, hit, slapped, or otherwise physically hurt by your partner or ex-partner? No 11/29/2023 Within the last year, have y ou been raped or forced to have any kind of sexual activity by your partner or ex-partner? No 11/29/2023 Social Connection and Isolation Panel [NHANES] A nswer Date Recorded Frequency of Communication with Friends and Fami ly Not on file 05/31/2020 How often do you get together with friends or re latives? Once a week 05/31/2020 Attends Mosque Services Not on file 05/31 Active Member of Clubs or Organizations Not on f ile 05/31/2020 Attends Club or Organization Meetings Not on stewart e 05/31/2020 Marital Status Not on file 05/31/2020 AUDIT-C Answer Date Recorded Q1: How often do you have a drink containing alc ohol? 2-4 times a month 05/31/2020 Average Number of Drinks Not on file 020 Q3: How often do you have si x or more drinks on one occasion? Patient declined 05/31/2020 Overall Financial Resource Strain (CARDIA) Answe r Date Recorded How hard is it for you to pa y for the very basics like food, housing, medical care, and heating? Not hard at all 10/27/2023 PHQ-2 Answer Date Recorded PHQ-2 Score 0 10/27/2023 [facility] - Occupational Stress Questionnaire Answer Date Recorded Do you feel stress - tense, restless, nervous, or anxious, or unable to sleep at night because your mind is troubled all the time - these days? Only a little 05/31/2020 Exercise Vital Sign Answer Date Recorde d On average, how many days pe r week do you engage in moderate to strenuous exercise (like a brisk walk)? 2 days 10/27/2023 On average, how many minutes do you engage in exercise at this level? 20 min 10/27/2023 Hunger Vital Sign Answer Date Recorded Within the past 12 months, y ou worried that your food would run out before you got the money to buy more. Never true 11/29/19 24 Within the past 12 months, t he food you bought just didn't last and you didn't have money to get more. Never true 11/29/2023 PRAPARE - Transportation Answer Date Re corded In the past 12 months, has l ack of transportation kept you from medical appointments or from getting medications? No 11/14 In the past 12 months, has l ack of transportation kept you from meetings, work, or from getting things needed for daily living? No 11/29/2023 Nutrition Answer Date Recorded Nutrition: EVOO Fat Source Unknown 10/27 On average, how many serving s of fruits and vegetables do you eat per day (serving size is equal to 1 cup or approximately the size of a tennis ball)? 0-2 10/27/2023 Dental Answer Date Recorded Dental: Regular Dentist Yes 10/27/20 Employment Answer Date Recorded Employment status Retired 10/27/2023 Housing Stability Answer Date Recorded What is your living situation today? I have a [facility] place to live 11/29/2023 Education Answer Date Recorded What is the highest level of school you have completed or the highest degree you have received? 12th grade 10/15/2019 Sex and Gender Information Value Date Recorded Sex Assigned at Male 03/01/2019 1:23 PM CDT Gender Identity Male 03/01/2019 1:23 PM CDT Sexual Orientation Straight 03/01/2019 1: 23 PM CDT Last Filed Vital Signs Vital Sign Reading Time Taken Comments Blood Pressure 124/75 11/30/2023 8:00 AM CLINICAL STATISTICS MANAGER Pulse 78 11/30/2023 8:00 AM CLINICAL STATISTICS MANAGER Temperature 36.2 ??C (97.2 ??F) 11/30/2023 8:00 AM CS T Respiratory Rate 17 11/30/2023 8:00 AM CLINICAL STATISTICS MANAGER Oxygen Saturation 95% 11/30/2023 8:00 AM CLINICAL STATISTICS MANAGER Inhaled Oxygen Concentration - - Weight 80.6 kg (177 lb 11.1 oz) 11/29/2023 3:45 AM CLINICAL STATISTICS MANAGER Height 175 cm (5' 8.9) 11/28/2023 11:4 5 PM CLINICAL STATISTICS MANAGER Body Mass Index 26.32 11/28/2023 11:45 PM CLINICAL STATISTICS MANAGER Plan of Treatment Upcoming Encounters Date Type Department Care Team (Late st Contact Info) Description 12/13/2023 8:50 AM CLINICAL STATISTICS MANAGER Appointment Department of Laboratory Medicine and Pathology, [facility] in [place], [place] [address] [place] [phone] Natasha Mullins APRN, DannyNLibrado., M.S., M.S.N. [address] [place] [phone] 12/13/2023 11:00 AM CLINICAL STATISTICS MANAGER Office Visit Department of Cardiovascular Medicine in [place], [place] [address] [place] [phone] Natasha Mullins APRN, C.NLibrado., M.S., M.S.N. [address] [place] [phone] 02/02/2024 9:15 AM CDT Appointment Department of Cardiovascular Diseases in [place], [place] [address] [place] [phone] Fazal Reynoso M.D. [address] [place] [address] Health Maintenance Due Date Last Done Comments DTaP,Tdap,and Td Vaccines (1 - Tdap) 01/11/2009 01/10/2009, 01/10/2009, 08/24/1999 Zoster Vaccines (1 of 2) 01/21/2012 11/26/2011 Pneumococcal vaccine (65+ years) (2 of 2 - PCV) 09/07/2013 09/07/2012 COVID-19 Vaccine (6 - 2022- season) 2023 08/03/2022, 04/26/2022, 08/05/2021, Additional history exists Depression Screening (Annual PHQ-2) 11/14/2023 Fall Risk Screen (Annual) 11/14/2023 Office Visit for Blood Pressure Check / Re-check 02/14/2024 11/15/2023 Creatinine Level (Kidney Function Test) 11/30/2024 11/30/2023, 11/29/2023, 11/28/2023, Additional history exists Potassium Level 11/30/2024 11/30/2023, 11/14, 11/28/2023, Additional history exists Sodium Level 11/30/2024 11/30/2023, 11/14, 11/28/2023, Additional history exists Thyroid Stimulating Hormone (TSH) test for thyroid function 12/05/2024 12/05/2023, 10/31/2023, 02/09/2023, Additional history exists Hepatitis A Vaccines Completed 10/17/2003, 10/17/2003, 12/24/2002, Additional history exists Influenza Vaccine Completed 08/29/2023, , 08/03/2022, Additional history exists HPV Vaccines Aged Out No longer eligi ble based on patient's age to complete this topic Medical Devices Implanted Type Area K 12 [employer] Professional Device Identifier Shelf Expiration Date Model / Serial / Lot Lead Ppm Capsure Fix Novus 52 - [id number] - [id number] Implanted:Qty: 1 on 11/01/2023 by Kg Holguin M.D. at [facility] Cardiac Lead Medtronic 08/09/2025 [id number] / [id number] / Premier 2.75 X 12 - [id number] Implanted:Qty: 1 on 08/24/2015 Cardiac Stent Sinch Scientific Description:Device Manufactu rer - [employer]. Device Status Text - [id number]. Dental Crowns Hardware e.g. pins/screws/ rods Tooth Msh Prl Erin Polyprp Knit 6x6 - [id number] Implanted:Qty: 1 on 01/16/2021 by Katty Clarke M.D. at [facility] Mesh or Patch Left: Inguinal Ethicon 04/13/2025 PMH / / [id number] Ocular Lens Ocular Lens Bilateral: Eye Ppm Stamps - [id number] - [id number] Implanted:Qty: 1 on 11/01/2023 by Kg Holguin M.D. at [facility] Pacemaker Medtronic 04/10/2025 [id number] / [id number] / Procedures Procedure Name Priority Date/Time Associated Diagnosis Comments US HEAD NECK SOFT TISSUE RAD - Routine (most inpatients and all outpatients) 12/05/2023 1:49 PM CLINICAL STATISTICS MANAGER Malignant Neoplasm Of Thyroid Papillary (HCC) LIPID PANEL, S Routine 12/05/2023 12:19 PM CLINICAL STATISTICS MANAGER Cardiomyopathy Ischemic T4 (THYROXINE), FREE, S Routine 12/05/2023 12:19 PM CLINICAL STATISTICS MANAGER Malignant Neoplasm Of Thyroid Papillary (HCC) THYROGLOBULIN, TM, S Routine 12/05/2023 12:19 PM CLINICAL STATISTICS MANAGER Malignant Neoplasm Of Thyroid Papillary (HCC) THYROID-STIMULATING HORMONE-SENSITIVE (S-TSH) Routine 12/05/2023 12:19 PM CLINICAL STATISTICS MANAGER Malignant Neoplasm Of Thyroid Papillary (HCC) CAR CARDIAC DEVICE INTERROGATION Routine 12/05/2023 11:10 AM CLINICAL STATISTICS MANAGER Encounter For Checking And Testing Of Cardiac Pacemaker Pulse Generator Battery CAR CARDIAC DEVICE INTERROGATION Routine 12/02/2023 3:21 PM CLINICAL STATISTICS MANAGER Encounter For Checking And Testing Of Cardiac Pacemaker Pulse Generator Battery Procedure Note - 12/02/2023 3:21 PM CSTThis note is in progress. PURPOSE OF VISIT: Unscheduled remote. PRESENTING EGM: Suggestive of slow atrial flutter at 135 bpm, with Vpacing at 62 bpm. Mode switch rate is programmed at 171 bpm. ATRIAL ARRHYTHMIAS: Due to flutter rate falling below mode switch detectrate, the device is reporting no episodes. I also contacted [employer] to evaluate rhythm as well. The consensus was likely slow Atrialflutter. I sent a message to Dr. Slaughter, whom he saw on 11-15-2023. VENTRICULAR ARRHYTHMIAS: No episodes. PVC [place]: 99.6/hr BATTERY LONGEVITY: Expected battery longevity trends reviewed and arestable and consistent with device settings and use. SUMMARY: All device function appears normal. FOLLOW UP: Next routine follow-up will be in clinic on 02-02-2024. DEVICE RN: Renetta Tyler RN Provider statement: This patient underwent device interrogation. I agreethat the device interrogation was medically indicated to provideappropriate care and continue routine device interrogations asindicated. GLUCOSE POCT, B Routine 11/30/2023 12:06 PM CLINICAL STATISTICS MANAGER GLUCOSE POCT, B Routine 11/30/2023 8:15 AM CLINICAL STATISTICS MANAGER BASIC METABOLIC PANEL, S/P Routine 11/30/2023 8:14 AM CLINICAL STATISTICS MANAGER CBC WITHOUT DIFFERENTIAL, B Routine 11/30/2023 8:14 AM CLINICAL STATISTICS MANAGER GLUCOSE POCT, B Routine 11/29/2023 9:47 PM CLINICAL STATISTICS MANAGER GLUCOSE POCT, B Routine 11/29/2023 4:27 PM CLINICAL STATISTICS MANAGER THORACIC ULTRASOUND Routine 11/29/2023 1:13 PM CLINICAL STATISTICS MANAGER GLUCOSE POCT, B Routine 11/29/2023 11:47 AM CLINICAL STATISTICS MANAGER GLUCOSE POCT, B Routine 11/29/2023 8:56 AM CLINICAL STATISTICS MANAGER ADULT OXYGEN THERAPY Routine 11/29/2023 8:02 AM CLINICAL STATISTICS MANAGER BASIC METABOLIC PANEL, S/P Routine 11/29/2023 4:48 AM CLINICAL STATISTICS MANAGER CBC WITHOUT DIFFERENTIAL, B Routine 11/29/2023 4:48 AM CLINICAL STATISTICS MANAGER GRAM STAIN Routine 11/29/2023 3:18 AM CLINICAL STATISTICS MANAGER BACTERIA / LAUREL CULTURE, BLOOD STAT 11/29/2023 12:31 AM CLINICAL STATISTICS MANAGER BACTERIA / LAUREL CULTURE, BLOOD STAT 11/29/2023 12:24 AM CLINICAL STATISTICS MANAGER STREPTOCOCCUS PNEUMONIAE AG, U Routine 11/29/2023 12:08 AM CLINICAL STATISTICS MANAGER LEGIONELLA AG, U Routine 11/29/2023 12:08 AM CLINICAL STATISTICS MANAGER TROPONIN T, 2H/6H, 5TH GEN, P Timed 11/28/2023 11:33 PM CLINICAL STATISTICS MANAGER ADULT OXYGEN THERAPY Routine 11/28/2023 11:18 PM CLINICAL STATISTICS MANAGER ADULT OXYGEN THERAPY Routine 11/28/2023 11:18 PM CLINICAL STATISTICS MANAGER ADULT OXYGEN THERAPY Routine 11/28/2023 11:18 PM CLINICAL STATISTICS MANAGER CRITICAL CARE Routine 11/28/2023 10:57 PM CLINICAL STATISTICS MANAGER NON-INVASIVE VENTILATION Routine 11/28/2023 10:44 PM CLINICAL STATISTICS MANAGER NON-INVASIVE VENTILATION Routine 11/28/2023 10:44 PM CLINICAL STATISTICS MANAGER NON-INVASIVE VENTILATION Routine 11/28/2023 10:44 PM CLINICAL STATISTICS MANAGER NON-INVASIVE VENTILATION Routine 11/28/2023 10:44 PM CLINICAL STATISTICS MANAGER NON-INVASIVE VENTILATION Routine 11/28/2023 10:44 PM CLINICAL STATISTICS MANAGER MRSA/STAPHYLOCOCCUS AUREUS, NASAL, BY PCR Routine 11/28/2023 10:17 PM CLINICAL STATISTICS MANAGER LACTATE, POCT, B STAT 11/28/2023 10:[address]NA[address] CHEST ANGIOGRAM AND PULMONARY ARTERIES WITH IV CONTRAST RAD - Semiurgent (Fast; most ED patients; some inpatients) 11/28/2023 10:01 PM CLINICAL STATISTICS MANAGER DX CHEST PORTABLE 1 VIEW RAD - Semiurgent (Fast; most ED patients; some inpatients) 11/28/2023 8:56 PM CLINICAL STATISTICS MANAGER VBG & LYTES CG8+, POCT, B STAT 11/28/2023 8:50 PM CLINICAL STATISTICS MANAGER NT-PRO B-TYPE NATRIURETIC PEPTIDE (BNP), S STAT 11/28/2023 8:50 PM CLINICAL STATISTICS MANAGER TROPONIN T, BASELINE, 5TH GEN, P STAT 11/28/2023 8:50 PM CLINICAL STATISTICS MANAGER BASIC METABOLIC PANEL, S/P STAT 11/28/2023 8:50 PM CLINICAL STATISTICS MANAGER D-DIMER, P STAT 11/28/2023 8:50 PM CLINICAL STATISTICS MANAGER CBC WITH DIFFERENTIAL, B STAT 11/28/2023 8:50 PM CLINICAL STATISTICS MANAGER ECG STAT 11/28/2023 8:47 PM CLINICAL STATISTICS MANAGER IFLU A, B, SARS COV-2, PCR, RAPID,V STAT 11/28/2023 8:47 PM CLINICAL STATISTICS MANAGER FOCUSED CARDIAC ULTRASOUND Routine 11/28/2023 8:45 PM CLINICAL STATISTICS MANAGER CAR CARDIAC DEVICE INTERROGATION Routine 11/28/2023 8:57 AM CLINICAL STATISTICS MANAGER Encounter For Checking And Testing Of Cardiac Pacemaker Pulse Generator Battery CAR CARDIAC DEVICE INTERROGATION Routine 11/02/2023 10:11 AM CLINICAL STATISTICS MANAGER BASIC METABOLIC PANEL, S/P Routine 11/02/2023 9:39 AM CLINICAL STATISTICS MANAGER CBC WITHOUT DIFFERENTIAL, B Routine 11/02/2023 9:39 AM CLINICAL STATISTICS MANAGER ECG Routine 11/02/2023 4:42 AM CLINICAL STATISTICS MANAGER DX CHEST AP OR PA AND LATERAL 2 VIEWS RAD - Routine (most inpatients and all outpatients) 11/01/2023 9:18 PM CLINICAL STATISTICS MANAGER ADULT OXYGEN THERAPY Routine 11/01/2023 5:55 PM CLINICAL STATISTICS MANAGER ADULT OXYGEN THERAPY Routine 11/01/2023 5:55 PM CLINICAL STATISTICS MANAGER HEART RHYTHM PROCEDURE Routine 11/01/2023 5:12 PM CLINICAL STATISTICS MANAGER Block Atrioventricular Second Degree CAR CARDIAC DEVICE INTERROGATION Routine 11/01/2023 4:07 PM CLINICAL STATISTICS MANAGER SODIUM, RANDOM, U Routine 11/01/2023 10:44 AM CLINICAL STATISTICS MANAGER OSMOLALITY, U Routine 11/01/2023 10:44 AM CLINICAL STATISTICS MANAGER ADULT OXYGEN THERAPY Routine 11/01/2023 8:01 AM CLINICAL STATISTICS MANAGER MAGNESIUM, S Routine 11/01/2023 6:35 AM CLINICAL STATISTICS MANAGER BASIC METABOLIC PANEL, S/P Routine 11/01/2023 6:35 AM CLINICAL STATISTICS MANAGER CBC WITH DIFFERENTIAL, B Routine 11/01/2023 6:35 AM CLINICAL STATISTICS MANAGER OSMOLALITY, S Routine 11/01/2023 6:35 AM CLINICAL STATISTICS MANAGER ADULT OXYGEN THERAPY Routine 10/31/2023 8:01 PM CLINICAL STATISTICS MANAGER DIPSTICK, U Routine 10/31/2023 12:22 PM CLINICAL STATISTICS MANAGER MICROSCOPIC AUTOMATED Routine 10/31/2023 12:22 PM CLINICAL STATISTICS MANAGER OSMOLALITY, U Routine 10/31/2023 12:22 PM CLINICAL STATISTICS MANAGER PH, U Routine 10/31/2023 12:22 PM CLINICAL STATISTICS MANAGER URINALYSIS WITH MICROSCOPIC Routine 10/31/2023 12:22 PM CLINICAL STATISTICS MANAGER (TTE) 2D ECHO DOPPLER COLOR Routine 10/31/2023 9:42 AM CLINICAL STATISTICS MANAGER TROPONIN T, 5TH GEN, P Routine 10/31/2023 8:14 AM CLINICAL STATISTICS MANAGER THYROID FUNCTION CASCADE, S Routine 10/31/2023 8:14 AM CLINICAL STATISTICS MANAGER HEMOGLOBIN A1C, B Routine 10/31/2023 8:14 AM CLINICAL STATISTICS MANAGER MAGNESIUM, S Routine 10/31/2023 8:14 AM CLINICAL STATISTICS MANAGER COMPREHENSIVE METABOLIC PANEL, S/P Routine 10/31/2023 8:14 AM CLINICAL STATISTICS MANAGER CBC WITHOUT DIFFERENTIAL, B Routine 10/31/2023 8:14 AM CLINICAL STATISTICS MANAGER ADULT OXYGEN THERAPY Routine 10/31/2023 8:01 AM CLINICAL STATISTICS MANAGER ADULT OXYGEN THERAPY Routine 10/31/2023 3:46 AM CLINICAL STATISTICS MANAGER ADULT OXYGEN THERAPY Routine 10/31/2023 3:46 AM CLINICAL STATISTICS MANAGER TROPONIN T, 5TH GEN, P STAT 10/31/2023 12:38 AM CLINICAL STATISTICS MANAGER D-DIMER, P STAT 10/31/2023 12:38 AM CLINICAL STATISTICS MANAGER DX CHEST PORTABLE 1 VIEW RAD - Semiurgent (Fast; most ED patients; some inpatients) 10/31/2023 12:11 AM CLINICAL STATISTICS MANAGER NT-PRO B-TYPE NATRIURETIC PEPTIDE (BNP), S STAT 10/30/2023 11:48 PM CLINICAL STATISTICS MANAGER BASIC METABOLIC PANEL, S/P STAT 10/30/2023 11:48 PM CLINICAL STATISTICS MANAGER CBC WITH DIFFERENTIAL, B STAT 10/30/2023 11:48 PM CLINICAL STATISTICS MANAGER ECG STAT 10/30/2023 11:43 PM CLINICAL STATISTICS MANAGER URINALYSIS WITH MICROSCOPIC Routine 10/27/2023 1:40 PM CLINICAL STATISTICS MANAGER Dysuria BACTERIAL CULTURE, AEROBIC + SUSC, URINE Routine 10/27/2023 1:40 PM CLINICAL STATISTICS MANAGER Dysuria NT-PRO B-TYPE NATRIURETIC PEPTIDE (BNP), S STAT 10/21/2023 8:45 AM CLINICAL STATISTICS MANAGER BASIC METABOLIC PANEL, S/P STAT 10/21/2023 8:45 AM CLINICAL STATISTICS MANAGER CBC WITH DIFFERENTIAL, B STAT 10/21/2023 8:45 AM CLINICAL STATISTICS MANAGER DX CHEST AP OR PA AND LATERAL 2 VIEWS RAD - Semiurgent (Fast; most ED patients; some inpatients) 10/21/2023 8:44 AM CLINICAL STATISTICS MANAGER ECG STAT 10/21/2023 8:35 AM CLINICAL STATISTICS MANAGER UROLOGY IMAGE EXAM Routine 10/03/2023 1:56 PM CLINICAL STATISTICS MANAGER OH US TRANSRECTAL Routine 10/03/2023 1:30 PM CLINICAL STATISTICS MANAGER Nodule Prostate Retention Urinary URO UROFLOW Routine 10/03/2023 11:00 AM CLINICAL STATISTICS MANAGER Nodule Prostate Retention Urinary OH CYSTOURETHROSCOPY Routine 10/03/2023 9:30 AM CLINICAL STATISTICS MANAGER Nodule Prostate Retention Urinary DIPSTICK, U Routine 10/03/2023 7:17 AM CLINICAL STATISTICS MANAGER PH, U Routine 10/03/2023 7:17 AM CLINICAL STATISTICS MANAGER OSMOLALITY, U Routine 10/03/2023 7:17 AM CLINICAL STATISTICS MANAGER MICROSCOPIC AUTOMATED Routine 10/03/2023 7:17 AM CLINICAL STATISTICS MANAGER URINALYSIS WITH MICROSCOPIC Routine 10/03/2023 7:17 AM CLINICAL STATISTICS MANAGER Nodule Prostate Retention Urinary BACTERIAL CULTURE, AEROBIC + SUSC, URINE Routine 10/03/2023 7:17 AM CLINICAL STATISTICS MANAGER Nodule Prostate Retention Urinary DIPSTICK, U Routine 09/08/2023 10:49 AM CDT OH OSMOLALITY ASSAY URINE Routine 09/08/2023 10:49 AM CDT PH, RANDOM, U Routine 09/08/2023 10:49 AM CDT MICROSCOPIC MANUAL Routine 09/08/2023 10:49 AM CDT URINALYSIS WITH MICROSCOPIC Routine 09/08/2023 10:49 AM CDT Nodule Prostate PROSTATE-SPECIFIC AG (PSA) DIAGNOSTIC, S Routine 09/08/2023 10:43 AM CDT Nodule Prostate from Last 3 Months Results * US Head Neck Soft Tissue (12/05/2023 1:49 PM CLINICAL STATISTICS MANAGER) Anatomical Region Laterality Modality Head and Neck, Ultrasound RS T LOS, Ultrasound ARZ LOS, Ultrasound FLA LOS N/A Ultrasound Impressions 12/05/2023 2:06 PM CLINICAL STATISTICS MANAGER 1. Slight enlargement of two left thyroid bed nodules, consistent with recurrent disease. 2. A tiny hypoechoic nodule in the right thyroid bed is of doubtful significance; attention on follow-up. 3. No cervical lymphadenopathy. Narrative 12/05/2023 2:06 PM CLINICAL STATISTICS MANAGER EXAM: US HEAD NECK SOFT TISSUE COMPARISON: Neck ultrasound 11/26/2022. FINDINGS: Thyroidectomy for papillary carcinoma. Again seen are two adjacent hypoechoic nodules in the left mid bed. The largest measures 7 mm today versus 5 mm previously. The smaller nodule measures 4 mm today versus 3 mm previously. Both demonstrate internal vascularity. Additional 3 mm hypoechoic avascular nodule in the low right thyroid bed, of doubtful significance. Lymph nodes: ??Neck levels 1-7 were surveyed and demonstrated no lymphadenopathy. The previously seen prominent level 2 lymph nodes are less prominent today. Procedure Note Jennifer Craft M.D. - 12/05/2023 EXAM: US HEAD NECK SOFT TISSUE COMPARISON: Neck ultrasound 11/26/2022. FINDINGS: Thyroidectomy for papillary carcinoma. Again seen are two adjacent hypoechoic nodules in the left mid bed. Thelargest measures 7 mm today versus 5 mm previously. The smaller nodulemeasures 4 mm today versus 3 mm previously. Both demonstrate internalvascularity. Additional 3 mm hypoechoic avascular nodule in the low right thyroid bed, of doubtful significance. Lymph nodes: Neck levels 1-7 were surveyed and demonstrated nolymphadenopathy. The previously seen prominent level 2 lymph nodes areless prominent today. IMPRESSION: 1. Slight enlargement of two left thyroid bed nodules, consistent withrecurrent disease. 2. A tiny hypoechoic nodule in the right thyroid bed is of doubtfulsignificance; attention on follow-up. 3. No cervical lymphadenopathy. Loni ALVARADO US PROCEDURES * Lipid Panel (12/05/2023 12:19 PM CLINICAL STATISTICS MANAGER) Triglycerides 89 mg/dL 12/05/2023 1:38 PM CLINICAL STATISTICS MANAGER DTL Comment: ----REFERENCE VALUE---- Normal: <150 mg/dL Borderline High: 150-199 mg/dL High: 200-499 mg/dL Very High: > or =500 mg/dL Cholesterol, Total 162 mg/dL 2023 1:38 PM CLINICAL STATISTICS MANAGER DTL Comment: ----REFERENCE VALUE---- Desirable: < 200 mg/dL Borderline High: 200 - 239 mg/dL High: > or = 240 mg/dL Cholesterol, LDL, Calculated 82 mg/dL 12/05/2023 1:38 PM CLINICAL STATISTICS MANAGER DTL Comment: ----REFERENCE VALUE---- Desirable: <100 mg/dL Above Desirable: 100-129 mg/dL Borderline High: 130-159 mg/dL High: 160-189 mg/dL Very High: >=190 mg/dL ----ADDITIONAL INFORMATION---- LDL cholesterol calculated using the Rodriguez/NIH equation. Cholesterol, HDL, S 64 >=40 mg/dL 12/05/2023 1:38 PM CLINICAL STATISTICS MANAGER DTL Cholesterol, Non-HDL, Calculated 98 mg/dL 12/05/2023 1:38 PM CLINICAL STATISTICS MANAGER DTL Comment: ----REFERENCE VALUE---- Desirable: <130 mg/dL Above Desirable: 130-159 mg/dL Borderline High: 160-189 mg/dL High: 190-219 mg/dL Very High: > or =220 mg/dL Fasting (8 HR or more) No 12/05/2023 1:03 PM CLINICAL STATISTICS MANAGER DTL Blood (Blood, Venous) 12/05/2023 12:19 PM CLINICAL STATISTICS MANAGER 12/05/2023 1:03 PM CLINICAL STATISTICS MANAGER Eugene Slaughter M.D., Ph.D. LAB BLOO D ADD-ON [facility] [address] [place] [address], [facility] [address] [place] [address] * (ABNORMAL) Thyroglobulin, Tumor Marker (12/05/2023 12:19 PM CLINICAL STATISTICS MANAGER) Pathologist [facility] Thyroglobulin Antibody, S 7.5(H) <1.8 IU/mL 12/05/2023 7:02 PM CLINICAL STATISTICS MANAGER SDSC Thyroglobulin, Tumor Marker, S 0.4(H) ng/mL 12/05/2023 6:57 PM CLINICAL STATISTICS MANAGER SDS Comment: ----REFERENCE VALUE---- Athyrotic <0.1 Intact Thyroid <=33 Thyroglobulin Interpretation SEE COMMENT 12/05/2023 7:02 PM CLINICAL STATISTICS MANAGER SDS Comment: Quantitation of thyroglobulin may be unreliable due to the presence of anti-thyroglobulin antibodies. Thyroglobulin (Tg) levels must be interpreted in the context of TSH levels, serial Tg measurements and radioiodine ablation status. ??Tg levels of 0.1-2.0 ng/mL in athyrotic individuals on suppressive therapy indicate a low risk of clinically detectable recurrent papillary/follicular thyroid cancer. ?? ----ADDITIONAL INFORMATION---- PLEASE NOTE: The given cutoff of <1.8 IU/mL is for the detection of potential thyroglobulin antibody (TgAb) interference in thyroglobulin immunoassays. Thyroglobulin flagging is based on athyrotic reference values. A thyroglobulin antibody (TgAb) reference cutoff of <4.0 IU/mL may be more suitable for the evaluation of autoimmune thyroiditis. The thyroglobulin and thyroglobulin antibody testing methods are immunoenzymatic assays manufactured by [employer] and performed on the [employer] DXI 800. Values obtained from different assay methods or kits may be different and cannot be used interchangeably. The results cannot be interpreted as absolute evidence for the presence or absence of malignant disease. Blood (Blood, Venous) 12/05/2023 12:19 PM CLINICAL STATISTICS MANAGER 12/05/2023 5:56 PM CLINICAL STATISTICS MANAGER Loni Wu M.D. LAB BLOOD ADD-ON [facility] [address] [place] [address] [facility] [place] [facility] [place] [address] [place] [address] * S-TSH (Thyroid-Stimulating Hormone - Sensitive) (12/05/2023 12:19 PM CLINICAL STATISTICS MANAGER) TSH, Sensitive 0.5 0.3 - 4.2 mIU/L 12/05/2023 1:38 PM CLINICAL STATISTICS MANAGER DTL Blood (Blood, Venous) 12/05/2023 12:19 PM CLINICAL STATISTICS MANAGER 12/05/2023 1:03 PM CLINICAL STATISTICS MANAGER Loni Wu M.D. LAB BLOOD ADD-ON Performing Organization Address [facility] Co de Phone Number [facility] [address] [place] [address], [facility] [address] [place] [address] * (ABNORMAL) T4 (Thyroxine), Free (12/05/2023 12:19 PM CLINICAL STATISTICS MANAGER) T4 (Thyroxine), Free, S 1.8(H) 0.9 - 1.7 ng/dL 12/05/2023 1:38 PM CLINICAL STATISTICS MANAGER DTL Blood (Blood, Venous) 12/05/2023 12:19 PM CLINICAL STATISTICS MANAGER 12/05/2023 1:03 PM CLINICAL STATISTICS MANAGER Loni Wu M.D. LAB BLOOD ADD-ON Performing Organization Address City/[facility]/ZIP Co de Phone Number [facility] [address] [place] [address], [place] DTL [facility] [address] [place] [address] * CARDIOVASCULAR IMPLANTABLE ELECTRONIC DEVICE - NO CHARGE (12/05/2023 11:10 AM CLINICAL STATISTICS MANAGER) Only the most recent of4 resultswithin the time period is included. Date Time Interrogation Session [id number] [facility] Implantable Pulse Generator K [employer] Medtronic [facility] Implantable Pulse Generator Model [id number] [place] XT DR MRI [facility] Implantable Pulse Generator Serial Number [id number] [facility] Type Interrogation Session Remote [facility] Clinic Name [facility] Implantable Pulse Generator Type Pacemaker [facility] Implantable Pulse Generator Implant Date 20231101 [facility] Implantable Lead K 12 [employer] Medtronic [facility] Implantable Lead Model 4076 CapsureFix Novus MRI SureScan [facility] Implantable Lead Serial Number [id number] [facility] Implantable Lead Implant Date 20231101 [facility] Implantable Lead Polarity Type Bipolar Lead [facility] Implantable Lead Location Detail 1 UNKNOWN [facility] Implantable Lead Special Function Lead length: 52 cm [facility] Implantable Lead Location Right Atrium [facility] Implantable Lead K 12 [employer] Medtronic [facility] Implantable Lead Model 4076 CapsureFix Novus MRI SureScan [facility] Implantable Lead Serial Number [id number] [facility] Implantable Lead Implant Date 20231101 [facility] Implantable Lead Polarity Type Bipolar Lead [facility] Implantable Lead Location Detail 1 UNKNOWN [facility] Implantable Lead Special Function Lead length: 58 cm [facility] Implantable Lead Location Right Ventricle [facility] Сергей Setting Mode (NBG Code) DDD [facility] Сергей Setting Lower Rate Limit 60 {beats}/ min [facility] Сергей Setting Maximum Tracking Rate 120 {beats}/ min [facility] Сергей Setting Maximum Sensor Rate 120 {beats}/ min [facility] Сергей Setting KATHY Delay Low 150 ms [facility] Сергей Setting PAV Delay Low 180 ms [facility] Сергей Setting AT Mode Switch Rate 171 {beats}/ min [facility] Lead Channel Setting Sensing Polarity Bipolar [facility] Lead Channel Setting Sensing Anode Location Right At[facility] Lead Channel Setting Sensing Anode Terminal Ring [facility] Lead Channel Setting Sensing Cathode Location Right Atrium [facility] Lead Channel Setting Sensing Cathode Terminal Tip [facility] Lead Channel Setting Sensing Sensitivity 0.3 mV [facility] Lead Channel Setting Sensing Polarity Bipolar [facility] Lead Channel Setting Sensing Anode Location Right Ventricle [facility] Lead Channel Setting Sensing Anode Terminal Ring [facility] Lead Channel Setting Sensing Cathode Location Right Ventricle [facility] Lead Channel Setting Sensing Cathode Terminal Tip [facility] Lead Channel Setting Sensing Sensitivity 0.9 mV [facility] Lead Channel Setting Pacing Polarity Bipolar [facility] Lead Channel Setting Pacing Anode Location Right Atrium [facility] Lead Channel Setting Pacing Anode Terminal Ring [facility] Lead Channel Setting Sensing Cathode Location Right Atrium [facility] Lead Channel Setting Sensing Cathode Terminal Tip [facility] Lead Channel Setting Pacing Pulse Width 0.4 ms [facility] Lead Channel Setting Pacing Amplitude 3.5 V [facility] Lead Channel Setting Pacing Capture Mode Adaptive [facility] Lead Channel Setting Pacing Polarity Bipolar [facility] Lead Channel Setting Pacing Anode Location Right Ventricle [facility] Lead Channel Setting Pacing Anode Terminal Ring [facility] Lead Channel Setting Sensing Cathode Location Right Ventricle [facility] Lead Channel Setting Sensing Cathode Terminal Tip [facility] Lead Channel Setting Pacing Pulse Width 0.4 ms [facility] Lead Channel Setting Pacing Amplitude 3.5 V [facility] Lead Channel Setting Pacing Capture Mode Adaptive [facility] Zone Setting Type Category VF [facility] Zone Setting Type Category [facility] Zone Setting Type Category VT [facility] Zone Setting Type Category VT [facility] Zone Setting Detection Interval 360 ms [facility] Zone Setting Type Category ATRIAL_FIBRILLATI ON [facility] LAB SYSTEM Zone Setting Type Category AT/AF [facility] Zone Setting Detection Interval 350 ms [facility] Lead Channel Impedance Value 513 ohm [facility] Lead Channel Impedance Value 323 ohm [facility] Lead Channel Sensing Intrinsic Amplitude 3 mV [facility] Lead Channel Sensing Intrinsic Amplitude 3 mV [facility] Lead Channel Pacing Threshold Amplitude 0.75 V [facility] Lead Channel Pacing Threshold Pulse Width 0.4 ms [facility] Lead Channel Impedance Value 475 ohm [facility] Lead Channel Impedance Value 380 ohm [facility] Lead Channel Sensing Intrinsic Amplitude 10.75 mV [facility] Lead Channel Sensing Intrinsic Amplitude 10.75 mV [facility] Lead Channel Pacing Threshold Amplitude 0.5 V [facility] Lead Channel Pacing Threshold Pulse Width 0.4 ms [facility] Battery Date Time of Measurements [id number] [facility] Battery BATTERY CHARGER Trigger 2.625 [facility] Battery Remaining Longevity 137 mo [facility] Battery Voltage 3.20 V [facility] Statistic Date Time Start [id number] [facility] Statistic Date Time End [facility] Statistic RA Percent Paced 6.56 % [facility] Statistic RV Percent Paced 93.83 % [facility] Statistic AP WAITER/WAITRESS TAKE OUT Percent 4.84 % [facility] Statistic WAITER/WAITRESS TAKE OUT Percent 88.99 % [facility] Statistic AP VS Percent 0.02 % [facility] Statistic VS Percent 6.15 % [facility] Atrial Tachy Statistic Date Time Start [facility] Atrial Tachy Statistic Date Time End [facility] Atrial Tachy Statistic AT/AF [place] Percent 0 % [facility] Episode Statistic Recent Count 0 [facility] Episode Statistic Type Category AT/AF [facility] Episode Statistic Recent Count 0 [facility] Episode Statistic Type Category Patient Activated [facility] Episode Statistic Recent Count 0 [facility] Episode Statistic Type Category SVT [facility] Episode Statistic Recent Count 0 [facility] Episode Statistic Type Category VT [facility] Episode Statistic Recent Count 0 [facility] Episode Statistic Type Category VT [facility] Episode Statistic Recent Date Time Start [id number] [facility] Episode Statistic Recent Date Time End F[facility] Episode Statistic Recent Date Time Start [id number] [facility] Episode Statistic Recent Date Time End F[facility] Episode Statistic Recent Date Time Start [id number] [facility] Episode Statistic Recent Date Time End F[facility] Episode Statistic Recent Date Time Start [id number] [facility] Episode Statistic Recent Date Time End F[facility] Episode Statistic Recent Date Time Start [id number] [facility] Episode Statistic Recent Date Time End F[facility] Episode Statistic Total Count 0 [facility] Episode Statistic Type Category AT/AF [facility] Episode Statistic Total Count 0 [facility] Episode Statistic Type Category Patient Activated F[facility] Episode Statistic Total Count 0 [facility] Episode Statistic Type Category SVT [facility] Episode Statistic Total Count 0 [facility] Episode Statistic Type Category VT [facility] Episode Statistic Total Count 1 [facility] Episode Statistic Type Category VT [facility] Episode Statistic Total Date Time Start [id number] [facility] Episode Statistic Total Date Time End [id number] [facility] Episode Statistic Total Date Time Start [id number] [facility] Episode Statistic Total Date Time End [id number] [facility] Episode Statistic Total Date Time Start [id number] [facility] Episode Statistic Total Date Time End [id number] [facility] Episode Statistic Total Date Time Start [id number] [facility] Episode Statistic Total Date Time End [id number] [facility] Episode Statistic Total Date Time Start [id number] [facility] Episode Statistic Total Date Time End [id number] [facility] Anatomical Region Laterality Modality Other 12/05/2023 10:5 0 AM CLINICAL STATISTICS MANAGER Narrative 12/06/2023 7:42 AM CLINICAL STATISTICS MANAGER PURPOSE OF VISIT: ??Physician requested patient initiated remote. PRESENTING EGM: ??-WAITER/WAITRESS TAKE OUT at 80 bpm. ATRIAL ARRHYTHMIAS: ??None recorded. ?Atrial fibrillation burden: 0% VENTRICULAR ARRHYTHMIAS: ??None recorded. ?PVC [place]: 76/hr BATTERY LONGEVITY: Expected battery longevity trends reviewed and are stable and consistent with device settings and use. SUMMARY: All device function appears normal. I have updated Dr. Slaughter with these results. FOLLOW UP: Next routine follow-up will be in clinic on 02-02-2024. DEVICE RN: Renetta Tyler RN Provider statement: This patient underwent device interrogation. I agree that the device interrogation was medically indicated to provide appropriate care and continue routine device interrogations as indicated. Bautista Moore M.D., M.P.H. CV IMPLANTAB LE CARDIAC DEVICE * Glucose, POCT (11/30/2023 12:06 PM CLINICAL STATISTICS MANAGER) Only the most recent of6 resultswithin the time period is included. Glucose, POCT, B 96 70 - 140 mg/dL 11/30/2023 12:08 PM CLINICAL STATISTICS MANAGER PCLX Site Capillary 11/30/2023 12:08 PM CLINICAL STATISTICS MANAGER PCLX Last Intake 3-4 hours 11/30/2023 12:08 PM CLINICAL STATISTICS MANAGER PCLX Blood 11/30/2023 12:0 6 PM CLINICAL STATISTICS MANAGER 11/30/2023 12:08 PM CLINICAL STATISTICS MANAGER Unknown Provider LAB POCT ORDERABLES- MANUAL Performing Organization Address [facility] Co de Phone Number POC [facility] [address] [place] [address], [facility] PCLX [facility] POC [address] [place] [address] * (ABNORMAL) CBC without Differential (11/30/2023 8:14 AM CLINICAL STATISTICS MANAGER) Only the most recent of4 resultswithin the time period is included. Hemoglobin 11.7(L) 13.2 - 16.6 g/dL 11/30/2023 9:26 AM CLINICAL STATISTICS MANAGER DTL Hematocrit 34.6(L) 38.3 - 48.6 % 11/30/2023 9:26 AM CLINICAL STATISTICS MANAGER DTL Erythrocytes 3.78(L) 4.35 - 5.65 x10(12)/L 11/30/2023 9:26 AM CLINICAL STATISTICS MANAGER DTL MCV 91.5 78.2 - 97.9 fL 11/30/2023 9:26 AM CLINICAL STATISTICS MANAGER DTL RBC Distrib Width 14.3 11.8 - 14.5 % 11/30/2023 9:26 AM CLINICAL STATISTICS MANAGER DTL Platelet Count 189 135 - 317 x10(9)/L 11/30/2023 9:26 AM CLINICAL STATISTICS MANAGER DTL Leukocytes 9.3 3.4 - 9.6 x10(9)/L 11/30/2023 9:26 AM CLINICAL STATISTICS MANAGER DTL Blood (Blood, Venous) 11/30/2023 8:14 AM CLINICAL STATISTICS MANAGER 11/30/2023 9:08 AM CLINICAL STATISTICS MANAGER Zeinab Alba M.D. LAB BLOOD ADD -ON [facility] [address] [place] [address], [facility] DTL [facility] [address] [place] [address] * (ABNORMAL) Basic Metabolic Panel (11/30/2023 8:14 AM CLINICAL STATISTICS MANAGER) Only the most recent of7 resultswithin the time period is included. Potassium, S 4.0 3.6 - 5.2 mmol/L 11/30/2023 9:37 AM CLINICAL STATISTICS MANAGER DTL Sodium, S 134(L) 135 - 145 mmol/L 11/30/2023 9:37 AM CLINICAL STATISTICS MANAGER DTL Chloride, S 99 98 - 107 mmol/L 11/30/2023 9:37 AM CLINICAL STATISTICS MANAGER DTL Bicarbonate, S 24 22 - 29 mmol/L 11/30/2023 9:37 AM CLINICAL STATISTICS MANAGER DTL Anion Gap 11 7 - 15 11/30/2023 9:37 AM CLINICAL STATISTICS MANAGER DTL BUN (Blood Urea Nitrogen), S 16 8 - 24 mg/dL 11/30/2023 9:37 AM CLINICAL STATISTICS MANAGER DTL Creatinine 0.78 0.74 - 1.35 mg/dL 11/30/2023 9:37 AM CLINICAL STATISTICS MANAGER DTL Estimated GFR (eGFR) >90 >=60 mL/min/BSA 11/30/2023 9:37 AM CLINICAL STATISTICS MANAGER DTL Comment: Estimated GFR calculated using the 2020 CKD_EPI creatinine equation. Calcium, Total, S 8.6(L) 8.8 - 10.2 mg/dL 11/30/2023 9:37 AM CLINICAL STATISTICS MANAGER DTL Glucose, S 100 70 - 140 mg/dL 11/30/2023 9:37 AM CLINICAL STATISTICS MANAGER DTL Blood (Blood, Venous) 11/30/2023 8:14 AM CLINICAL STATISTICS MANAGER 11/30/2023 9:21 AM CLINICAL STATISTICS MANAGER Zeinab Alba M.D. LAB BLOOD ADD -ON [facility] [address] [place] [address], [facility] [address] [place] [address] * POCUS Thoracic (11/29/2023 1:13 PM CLINICAL STATISTICS MANAGER) 11/28/2023 8:45 PM CLINICAL STATISTICS MANAGER Narrative [facility] - 11/28/2023 8:45 PM CLINICAL STATISTICS MANAGER Lung ?[id number] ULTRASOUND - EMERGENCY MEDICINE - [facility]: ?Exam Type: ??Diagnostic ?Indication(s) for Exam: ?Dyspnea, Hypoxia, rales ?VIEWS: ?RIGHT Pleura: ??adequate ?RIGHT pleural space: ??adequate ?RIGHT Lung: ??adequate ?LEFT Pleura: ??adequate ?LEFT pleural space: ??adequate ?LEFT Lung: ??adequate ?Findings: ?RT Pleura: ?Lung Sliding - normal ?RT Pleural Space: ?indeterminate ?RT Lung: ?B-lines ?LT Pleura: ?Lung Sliding - normal ?LT Pleural Space: ?indeterminate ?LT Lung: ?B-lines ?Interpretation: ?RT Pleura: ?NO sonographic evidence of pneumothorax ?RT Pleural Space: ?NO pleural effusion ?RT Lung: ?Interstitial syndrome ?LT Pleural Space: ?indeterminate ?LT Lung: ?indeterminate ?Other Findings: ??Right sided B lines concern for PNA vs Pulmonary EDEMA Electronically signed by Mesfin Manzanares on Tuesday, November 28, 2023 at 9:53 PM Electronically signed by Hector Barragan on Wednesday, November 29, 2023 at 1:13 PM Procedure Note Hector Barragan M.D. - 11/29/2023 Lung [id number] ULTRASOUND - EMERGENCY MEDICINE - [facility]: Exam Type: Diagnostic Indication(s) for Exam: Dyspnea, Hypoxia, rales VIEWS: RIGHT Pleura: adequate RIGHT pleural space: adequate RIGHT Lung: adequate LEFT Pleura: adequate LEFT pleural space: adequate LEFT Lung: adequate Findings: RT Pleura: Lung Sliding - normal RT Pleural Space: indeterminate RT Lung: B-lines LT Pleura: Lung Sliding - normal LT Pleural Space: indeterminate LT Lung: B-lines Interpretation: RT Pleura: NO sonographic evidence of pneumothorax RT Pleural Space: NO pleural effusion RT Lung: Interstitial syndrome LT Pleural Space: indeterminate LT Lung: indeterminate Other Findings: Right sided B lines concern for PNA vs PulmonaryEDEMA Electronically signed by Mesfin Manzanares on Tuesday, November 28, 2023 at9:53 PM Electronically signed by Hector Barragan on Wednesday, November 29, 2023 at1:13 PM Hector Barragan M.D. PROCEDURE/MINOR SURG ICAL ORDERABLES Performing Organization Address City/[facility]/ZIP Co de Phone Number [facility]PATH * Gram Stain (11/29/2023 3:18 AM CLINICAL STATISTICS MANAGER) Gram Stain Microscopic examination shows many epithelial cells indicating oropharyngeal contamination-nestor terial culture not performed. 11/29/2023 1:24 PM CLINICAL STATISTICS MANAGER DTL Sputum 11/29/2023 3:18 AM CLINICAL STATISTICS MANAGER 11/29/2023 5:11 AM CLINICAL STATISTICS MANAGER Comment:Specimen Source Site : Sputum Farhat Bhagat M.D. LAB MICROBIOLOGY - GENERAL ORDERABLES Performing Organization Address City/[facility]/ZIP Co de Phone Number [facility] [address] [place] [address], [facility] [address] [place] [address] * Bacteria / [place] Culture, Blood #2 (11/29/2023 12:31 AM CLINICAL STATISTICS MANAGER) Only the most recent of2 resultswithin the time period is included. Bacteria/April da Culture, Blood No growth after 5 days of incubation. 12/04/2023 1:02 AM CLINICAL STATISTICS MANAGER DTL Blood (Blood, Peripheral Draw) 11/29/2023 12:31 AM CLINICAL STATISTICS MANAGER 11/29/2023 12:51 AM CLINICAL STATISTICS MANAGER Comment:Specimen Source Site : Blood Farhat Bhagat M.D. LAB MICROBIOLOGY - GENERAL ORDERABLES Performing Organization Address City/[facility] Co de Phone Number [facility] [address] [place] [address], [place] DTL [facility] [address] [place] [address] * Streptococcus pneumoniae Antigen, Urine (11/29/2023 12:08 AM CLINICAL STATISTICS MANAGER) Streptococcus pneumoniae Ag, U Negative Negative 11/29/2023 2:50 PM CLINICAL STATISTICS MANAGER [facility] Comment: Negative for pneumococcal pneumonia, suggesting no current or recent infection. ??Infection due to S. pneumoniae cannot be ruled out since the antigen present in the sample may be below detection limit of the test. ----ADDITIONAL INFORMATION---- This assay was performed using the FDA-cleared BinaxNOW Streptococcus pneumoniae Antigen test, a rapid immunochromatographic assay. Urine (Urine, Indwelling Catheter) 11/29/2023 12:08 AM CLINICAL STATISTICS MANAGER 11/29/2023 8:16 AM CLINICAL STATISTICS MANAGER Farhat Bhagat M.D. LAB MICROBIOLOGY - GENERAL ORDERABLES Performing Organization Address City/[facility] Co de Phone Number [facility] [address] [place] [address] [facility] [address] [place] [address] [place] [address] * Legionella Antigen, Urine (11/29/2023 12:08 AM CLINICAL STATISTICS MANAGER) Legionella Ag, U Negative Negative 11/29/19 24 2:56 PM CLINICAL STATISTICS MANAGER [facility] Comment: Negative for L. pneumophila serogroup 1 antigen, suggesting no recent or current infection. ??Infection due to Legionella cannot be ruled out since other serogroups and species may cause disease, antigen may not be present in urine in early infection, and the level of antigen present in the urine may be below the detection limit of the test. ----ADDITIONAL INFORMATION---- This assay was performed using the FDA-cleared BinaxNOW Legionella Urinary Antigen Test, a rapid immunochromatographic assay. Urine (Urine, Indwelling Catheter) 11/29/2023 12:08 AM CLINICAL STATISTICS MANAGER 11/29/2023 8:16 AM CLINICAL STATISTICS MANAGER Farhat Bhagat M.D. LAB MICROBIOLOGY - GENERAL ORDERABLES [facility] [address] [place] [address] [facility] [address] [place] [address] [place] [address] * (ABNORMAL) Troponin T, 2h/6h, 5th Gen (11/28/2023 11:33 PM CLINICAL STATISTICS MANAGER) Troponin T, 2 hr, 5th gen 19(H) <=15 ng/L 11/29/2023 12:06 AM CLINICAL STATISTICS MANAGER [facility] 2H Delta 4 ng/L 11/29/2023 12:06 AM CLINICAL STATISTICS MANAGER [facility] 2H Delta Interp Indeterminate 11/29/2023 12:06 AM CLINICAL STATISTICS MANAGER [facility] Comment:Indeterminate delta, additional sample suggested Troponin T, 6 hr, 5th gen 16(H) <=15 ng/L 11/29/2023 5:31 AM CLINICAL STATISTICS MANAGER [facility] 6H Delta 1 ng/L 11/29/2023 5:31 AM CLINICAL STATISTICS MANAGER [facility] 6H Delta Interp Not Changing 11/29/2023 5:31 AM CLINICAL STATISTICS MANAGER [facility] Blood (Blood, Venous) 11/28/2023 11:33 PM CLINICAL STATISTICS MANAGER 11/28/2023 11:37 PM CLINICAL STATISTICS MANAGER Narrative [facility] - 11/29/2023 5:31 AM CLINICAL STATISTICS MANAGER Specimen Information: Specimen ID: [id number] Specimen Type: Blood Specimen Collection Start Date: 11/28/2023 11:33 PM Specimen Received Date: 11/28/2023 11:37 PM Specimen ID: [id number] Specimen Type: Blood Specimen Collection Start Date: 11/29/2023 ??4:48 AM Specimen Received Date: 11/29/2023 ??4:54 AM Mesfin Michael M.D. LAB BLOO D TROPONIN [facility] [address] [place] [address], [place] ST[place] [facility] [address] [place] [address] * Critical Care (11/28/2023 10:57 PM CLINICAL STATISTICS MANAGER) Narrative Hector Barragan M.D. - 11/28/2023 10:57 PM CLINICAL STATISTICS MANAGER Hector Barragan M.D. ? 11/29/2023 11:53 AM Critical Care Performed by: Hector Barragan M.D. Authorized by: Hector Barragan M.D. ?? Critical care provider statement: Critical care total time (minutes): 60 CPR was performed on this patient: no ?? Critical care was necessary to treat or prevent imminent or life-threatening deterioration of the following conditions: respiratory failure Critical care was time spent personally by me on the following activities: examination of patient, evaluation of patient's response to treatment, re-evaluation of patient's condition, obtaining history from patient or surrogate, ordering and performing treatments and interventions, ordering and review of laboratory studies, development of treatment plan with patient or surrogate, ordering and review of radiographic studies, pulse oximetry, discussing treatment issues with family or surrogate, discussions with consultants and documenting in the patient chart I assumed direction of critical care for this patient from another provider in my specialty: no ?? Hector Barragan M.D. PROCEDURE/MINOR SURG ICAL ORDERABLES * Staph aureus / MRSA, Nasal, PCR (11/28/2023 10:17 PM CLINICAL STATISTICS MANAGER) Staphylococcus aureus, PCR Negative Negative 11/29/2023 12:22 AM CLINICAL STATISTICS MANAGER DTL MRSA, PCR Negative Negative 11/29/2023 12:22 AM CLINICAL STATISTICS MANAGER DTL Swab (Nares) 11/28/2023 10:1 7 PM CLINICAL STATISTICS MANAGER 11/28/2023 11:00 PM CLINICAL STATISTICS MANAGER Macy Toledo M.D. LAB MICROBIOLOGY - G ENERAL ORDERABLES [facility] [address] [place] [address], [place] D[place] [facility] [address] [place] [address] * Lactate, POCT (11/28/2023 10:07 PM CLINICAL STATISTICS MANAGER) Lactate, POCT 2.17 0.50 - 2.20 mmol/L 11/28/2023 10:39 PM CLINICAL STATISTICS MANAGER PCLX Blood (Blood, Venous) 11/28/2023 10:07 PM CLINICAL STATISTICS MANAGER 11/28/2023 10:07 PM CLINICAL STATISTICS MANAGER Narrative Authorizing Provider Result Manuel Michael M.D. LAB POCT ORDERABLES - DEVICE POC [facility] [address] [place] [address], [facility] PCLX [facility] POC [address] [place] [address] * CT Chest Angiogram and Pulmonary Arteries with IV Contrast (11/28/2023 10:01 PM CLINICAL STATISTICS MANAGER) Anatomical Region Laterality Modality Chest, Cardiovascular RST LO S, Thoracic ARZ LOS, Thoracic FLA LOS N/A Computed Tomography, Compute d Tomography 11/28/2023 9:58 PM CLINICAL STATISTICS MANAGER Impressions 11/29/2023 12:40 AM CLINICAL STATISTICS MANAGER 1. No pulmonary embolism. 2. Bilateral probably pneumonia and/or pulmonary edema. Narrative 11/29/2023 12:40 AM CLINICAL STATISTICS MANAGER EXAM: ??CT CHEST ANGIOGRAM AND PULMONARY ARTERIES WITH IV CONTRAST Including 3D image post-processing with or without AI assistance. COMPARISON: ??CT chest 03/12/2021 FINDINGS: No evidence of pulmonary embolism. New ill-defined airspace opacities in the right lung with peripheral and lower lobe predominant intralobular septal thickening, ill-defined groundglass and consolidative nodularity, and small bilateral pleural effusions greater right than left. Increased lower lobe predominant bronchial wall thickening. Numerous prominent but nonenlarged mediastinal lymph nodes, probably reactive. No significant pericardial effusion. Grossly normal cardiac chamber sizes. Moderate esophageal hiatal hernia containing roughly half of the stomach. Left chest dual-lead pacemaker. Procedure Note Tita Carrion M.D. - 11/29/2023 EXAM: CT CHEST ANGIOGRAM AND PULMONARY ARTERIES WITH IV CONTRAST Including 3D image post-processing with or without AI assistance. COMPARISON: CT chest 03/12/2021 FINDINGS: No evidence of pulmonary embolism. New ill-defined airspace opacities in the right lung with peripheral andlower lobe predominant intralobular septal thickening, ill-definedgroundglass and consolidative nodularity, and small bilateral pleuraleffusions greater right than left. Increased lower lobe predominant bronchial wall thickening. Numerous prominent but nonenlarged mediastinal lymph nodes, probablyreactive. No significant pericardial effusion. Grossly normal cardiac chamber sizes. Moderate esophageal hiatal hernia containing roughly half of the stomach. Left chest dual-lead pacemaker. IMPRESSION: 1. No pulmonary embolism. 2. Bilateral probably pneumonia and/or pulmonary edema. Hector Barragan M.D. IMG CT PROCEDURES * DX Chest Portable 1 View (11/28/2023 8:56 PM CLINICAL STATISTICS MANAGER) Only the most recent of2 resultswithin the time period is included. Anatomical Region Laterality Modality Chest, Thoracic RST LOS, Tho racic ARZ LOS, Thoracic FLA LOS N/A Digital Radiography Impressions 11/28/2023 9:36 PM CLINICAL STATISTICS MANAGER Since 11/01/2023, new interstitial opacities in the mid to lower lungs, right greater than left. Groundglass and/or consolidative opacities in the right mid and lower lung. No pneumothorax. Right costophrenic angle is not completely included on the exam. Hiatal hernia. Dual lead pacemaker. Demineralization. Narrative 11/28/2023 9:36 PM CLINICAL STATISTICS MANAGER EXAM: ??DX CHEST PORTABLE 1 VIEW Procedure Note Makayla Acosta M.D. - 11/28/2023 EXAM: DX CHEST PORTABLE 1 VIEW IMPRESSION: Since 11/01/2023, new interstitial opacities in the mid to lower lungs,right greater than left. Groundglass and/or consolidative opacities in theright mid and lower lung. No pneumothorax. Right costophrenic angle is notcompletely included on the exam. Hiatal hernia. Dual lead pacemaker. Demineralization. Mesfin Michael M.D. IMG DIAG NOSTIC IMAGING PROCEDURES * (ABNORMAL) Venous Blood Gas and Electrolytes CG8+, POCT (11/28/2023 8:50 PM CLINICAL STATISTICS MANAGER) [facility] Sample Site, POCT Venstick 11/28/2023 9:54 PM CLINICAL STATISTICS MANAGER PCLX Comment: ----ADDITIONAL INFORMATION---- Performed at the Point of Care pH, Venous, POCT, B 7.33 7.32 - 7.43 11/28/2023 9:54 PM CLINICAL STATISTICS MANAGER PCSM Comment: ----ADDITIONAL INFORMATION---- Performed at the Point of Care pCO2, Venous, POCT, B 45 41 - 51 mm Hg 11/28/2023 9:54 PM CLINICAL STATISTICS MANAGER PCSM Comment: ----ADDITIONAL INFORMATION---- Performed at the Point of Care pO2, Venous, POCT, B 34 Not Applicable mm Hg 11/28/2023 9:54 PM CLINICAL STATISTICS MANAGER PCSM Comment: ----ADDITIONAL INFORMATION---- Performed at the Point of Care Base Excess, Venous, POCT, B -2 Not Applicable mmol/L 11/28/2023 9:54 PM CLINICAL STATISTICS MANAGER PCSM Comment: ----ADDITIONAL INFORMATION---- Performed at the Point of Care HCO3, Venous, POCT, B 24 Not Applicable mmol/L 11/28/2023 9:54 PM CLINICAL STATISTICS MANAGER PCSM Comment: ----ADDITIONAL INFORMATION---- Performed at the Point of Care Sodium, POCT, B 130(L) 135 - 145 mmol/L 11/28/2023 9:54 PM CLINICAL STATISTICS MANAGER PCLX Comment: ----ADDITIONAL INFORMATION---- Performed at the Point of Care Potassium, POCT, B 4.7 3.6 - 5.2 mmol/L 11/28/2023 9:54 PM CLINICAL STATISTICS MANAGER PCLX Comment: ----ADDITIONAL INFORMATION---- Performed at the Point of Care Calcium, Ionized, POCT, B 4.90 4.65 - 5.30 mg/dL 11/28/2023 9:54 PM CLINICAL STATISTICS MANAGER PCLX Comment: ----ADDITIONAL INFORMATION---- Performed at the Point of Care Glucose, POCT, B 216(H) 70 - 140 mg/dL 11/28/2023 9:54 PM CLINICAL STATISTICS MANAGER PCLX Comment: ----ADDITIONAL INFORMATION---- Performed at the Point of Care Hematocrit, POCT, B 43.0 38.3 - 48.6 % 11/28/2023 9:54 PM CLINICAL STATISTICS MANAGER PCLX Comment: ----ADDITIONAL INFORMATION---- Performed at the Point of Care Blood (Blood, Venous) 11/28/2023 8:50 PM CLINICAL STATISTICS MANAGER 11/28/2023 8:50 PM CLINICAL STATISTICS MANAGER Narrative Authorizing Provider Result Manuel Michael M.D. LAB POCT ORDERABLES - DEVICE Performing Organization Address [facility] Co de Phone Number POC [facility] [address] [place] [address], [facility] PCLX [facility] POC [address] [place] [address] PCSM [facility] POC [address] [place] [id number] * Troponin T, Baseline, 5th gen (11/28/2023 8:50 PM CLINICAL STATISTICS MANAGER) Troponin T, Baseline, 5th gen 15 <=15 ng/L 11/28/2023 9:27 PM CLINICAL STATISTICS MANAGER [facility] Blood (Blood, Venous) 11/28/2023 8:50 PM CLINICAL STATISTICS MANAGER 11/28/2023 9:07 PM CLINICAL STATISTICS MANAGER Narrative Authorizing Provider Result Manuel Michael M.D. LAB BLOO D TROPONIN Performing Organization Address [facility] Co de Phone Number [facility] [address] [place] [address], [facility] [address] [place] [address] * (ABNORMAL) NT-Pro B-Type Natriuretic Peptide (BNP) (11/28/2023 8:50 PM CLINICAL STATISTICS MANAGER) Only the most recent of3 resultswithin the time period is included. NT-Pro BNP 3189(H) <=540 pg/mL 11/28/2023 9:38 PM CLINICAL STATISTICS MANAGER [facility] Comment: NT-proBNP values less than 300 pg/mL have a 99% negative predictive value for excluding acute congestive heart failure. A cutoff of 1200 pg/mL for patients with an eGFR<60 yields a diagnostic sensitivity and specificity of 89% and 72% for acute congestive heart failure. A diagnostic NT-proBNP cutoff of 1800 pg/mL has been suggested in adults over 75 years of age in the absence of renal failure. Blood (Blood, Venous) 11/28/2023 8:50 PM CLINICAL STATISTICS MANAGER 11/28/2023 9:07 PM CLINICAL STATISTICS MANAGER Mesfin Michael M.D. LAB BLOO D ADD-ON Performing Organization Address [facility] Co de Phone Number [facility] [address] [place] [address], [facility] [address] [place] [address] * (ABNORMAL) D-Dimer (11/28/2023 8:50 PM CLINICAL STATISTICS MANAGER) Only the most recent of2 resultswithin the time period is included. Pathologist [facility] D-Dimer, P 2075(H) <=500 ng/mL FEU 11/28/2023 9:17 PM CLINICAL STATISTICS MANAGER [facility] Comment: D-dimer concentrations increase with age. ??For DVT/PE exclusion, in addition to clinical pre-test probability, age-adjusted D-dimer cut-offs are suggested for patients >50 years old. For additional information refer to the D-dimer assay in the Laboratory Test Catalog (LTC) and/or [employer]pert (TRINITY). ----ADDITIONAL INFORMATION---- D-dimer values less than or equal to 500 ng/mL fibrinogen equivalent units (FEU) may be used in conjunction with clinical pre-test probability to exclude deep vein thrombosis (DVT) and/or pulmonary embolism (PE). Blood (Blood, Venous) 11/28/2023 8:50 PM CLINICAL STATISTICS MANAGER 11/28/2023 9:07 PM CLINICAL STATISTICS MANAGER Mesfin Michael M.D. LAB BLOO D ADD-ON Performing Organization Address [facility] Co de Phone Number [facility] [address] [place] [address], [facility] [address] [place] [address] * (ABNORMAL) CBC with Differential, Blood (11/28/2023 8:50 PM CLINICAL STATISTICS MANAGER) Only the most recent of4 resultswithin the time period is included. Hemoglobin 13.7 13.2 - 16.6 g/dL 11/28/2023 9:10 PM CLINICAL STATISTICS MANAGER [facility] Hematocrit 41.5 38.3 - 48.6 % 11/28/2023 9:10 PM CLINICAL STATISTICS MANAGER [facility] Erythrocytes 4.55 4.35 - 5.65 x10(12)/L 11/28/2023 9:10 PM CLINICAL STATISTICS MANAGER [facility] MCV 91.2 78.2 - 97.9 fL 11/28/2023 9:10 PM CLINICAL STATISTICS MANAGER [facility] RBC Distrib Width 13.7 11.8 - 14.5 % 11/28/2023 9:10 PM CLINICAL STATISTICS MANAGER [facility] Platelet Count 216 135 - 317 x10(9)/L 11/28/2023 9:10 PM CLINICAL STATISTICS MANAGER [facility] Leukocytes 12.2(H) 3.4 - 9.6 x10(9)/L 11/28/2023 9:10 PM CLINICAL STATISTICS MANAGER [facility] Neutrophils 8.98(H) 1.56 - 6.45 x10(9)/L 11/28/2023 9:10 PM CLINICAL STATISTICS MANAGER [facility] Lymphocytes 1.77 0.95 - 3.07 x10(9)/L 11/28/2023 9:10 PM CLINICAL STATISTICS MANAGER [facility] Monocytes 0.98(H) 0.26 - 0.81 x10(9)/L 11/28/2023 9:10 PM CLINICAL STATISTICS MANAGER [facility] Eosinophils 0.46 0.03 - 0.48 x10(9)/L 11/28/2023 9:10 PM CLINICAL STATISTICS MANAGER [facility] Basophils <0.03 0.01 - 0.08 x10(9)/L 11/28/2023 9:10 PM CLINICAL STATISTICS MANAGER [facility] Blood (Blood, Venous) 11/28/2023 8:50 PM CLINICAL STATISTICS MANAGER 11/28/2023 9:07 PM CLINICAL STATISTICS MANAGER Mesfin Michael M.D. LAB BLOO D ADD-ON [facility] [address] [place] [address], [facility] [address] [place] [address] [facility] [address] [place] [address] * Influenza A/B, SARS CoV-2, PCR, Rapid Symptomatic (11/28/2023 8:47 PM CLINICAL STATISTICS MANAGER) Pathologist [facility] Influenza A, PCR, Rapid, V Negative Negative 11/28/2023 9:33 PM CLINICAL STATISTICS MANAGER [facility] Influenza B, PCR, Rapid, V Negative Negative 11/28/2023 9:33 PM CLINICAL STATISTICS MANAGER [facility] SARS CoV-2, PCR, Rapid, V Undetected Undetected 11/28/2023 9:33 PM CLINICAL STATISTICS MANAGER [facility] Comment: ----ADDITIONAL INFORMATION---- This RT-PCR test was performed using the [employer] SARS-CoV-2 and Influenza A/B Reagent assay from [employer], which has received Emergency Use Authorization(EUA) by the U.S. Food and Drug Administration. Fact sheets for this Emergency Use Authorization (EUA) assay can be found at the following links: For Healthcare Providers: https://www.fda.gov/media/505240/download For Patients: https://www.fda.gov/media/538095/download Infl A/B, SARS CoV-2, PCR, Source Swab, Nasopharynx 11/28/2023 8:57 PM CLINICAL STATISTICS MANAGER [facility] Swab (Nasopharynx) 11/28/2023 8:47 PM CLINICAL STATISTICS MANAGER 11/28/2023 8:57 PM CLINICAL STATISTICS MANAGER Narrative Authorizing Provider Result Manuel Michael M.D. LAB MICR OBIOLOGY - GENERAL ORDERABLES [facility] [address] [place] [address], [facility] [address] [place] [address] * ECG 12 Lead (11/28/2023 8:47 PM CLINICAL STATISTICS MANAGER) Only the most recent of4 resultswithin the time period is included. Pathologist [facility] Ventricular Rate ECG/Min 111 BPM MUSE [place] Interval 164 ms MUSE QRSD Interval 180 ms MUSE QT Interval 390 ms MUSE QTC Interval 530 ms MUSE P [place] 44 degrees MUSE R [place] 59 degrees MUSE T Wave [place] 53 degrees MUSE 11/28/2023 8:47 PM CLINICAL STATISTICS MANAGER 11/28/2023 9:11 PM CLINICAL STATISTICS MANAGER Impressions MUSE - 11/28/2023 9:11 PM CLINICAL STATISTICS MANAGER Dual chamber electronic pacemaker Sinus tachycardia When compared with ECG of 02-NOV-2023 04:42, Vent. rate has increased Premature ventricular complexes are no longer present Premature supraventricular complexes are no longer present Reviewed by WALESKA Pickard Narrative Procedure Note Fazal Soto M.D., Ph.D. - 11/28/2023 IMPRESSION: Dual chamber electronic pacemaker Sinus tachycardia When compared with ECG of 02-NOV-2023 04:42, Vent. rate has increased Premature ventricular complexes are no longer present Premature supraventricular complexes are no longer present Reviewed by WALESKA Pickard Mesfin Michael M.D. ECG [facility] NA * POCUS Cardiac (11/28/2023 8:45 PM CLINICAL STATISTICS MANAGER) 11/28/2023 8:45 PM CLINICAL STATISTICS MANAGER Narrative QPATH - 11/28/2023 8:45 PM CLINICAL STATISTICS MANAGER Cardiac ?[id number] ULTRASOUND - EMERGENCY MEDICINE - [facility]: ?Exam Type: ??Diagnostic ?Indication(s) for Exam: ?Dyspnea ?VIEWS: ?Parasternal long axis: ??adequate ?Parasternal short axis: ??adequate ?Apical (four-chamber): ??adequate ?Subcostal (four-chamber): ??Limited ?IVC: ??Not obtained ?Findings: ?Pericardial effusion: ??Absent ?Evidence of tamponade: ??None ?Global Ventricular Function: ??Reduced ?Right ventricular size: ??indeterminate ?Signs of RV strain: ??None ?Aortic root: ??not assessed ?IVC: ??indeterminate ?Interpretation: ?Contractility: ??Reduced ?Pericardial effusion: ??No pericardial effusion ?Acute Right Heart strain: ??indeterminate ?Intravascular Volume Assessment: ??indeterminate Electronically signed by Mesfin Manzanares on Thursday, November 30, 2023 at 11:03 AM Electronically signed by Hector Barragan on Monday, December 04, 2023 at 11:49 AM Procedure Note Hector Barragan M.D. - 12/04/2023 Cardiac [id number] ULTRASOUND - EMERGENCY MEDICINE - [facility]: Exam Type: Diagnostic Indication(s) for Exam: Dyspnea VIEWS: Parasternal long axis: adequate Parasternal short axis: adequate Apical (four-chamber): adequate Subcostal (four-chamber): Limited IVC: Not obtained Findings: Pericardial effusion: Absent Evidence of tamponade: None Global Ventricular Function: Reduced Right ventricular size: indeterminate Signs of RV strain: None Aortic root: not assessed IVC: indeterminate Interpretation: Contractility: Reduced Pericardial effusion: No pericardial effusion Acute Right Heart strain: indeterminate Intravascular Volume Assessment: indeterminate Electronically signed by Mesfin Manzanares on November 30t 11:03 AM Electronically signed by Hector Barragan on Monday, December 04, 2023 at11:49 AM Hector Barragan M.D. PROCEDURE/MINOR SURG ICAL ORDERABLES QPATH * DX Chest AP or PA and Lateral 2 Views (11/01/2023 9:18 PM CLINICAL STATISTICS MANAGER) Only the most recent of2 resultswithin the time period is included. Anatomical Region Laterality Modality Chest, Thoracic RST LOS, Tho racic ARZ LOS, Thoracic FLA LOS N/A Digital Radiography 11/01/2023 10:2 3 PM CLINICAL STATISTICS MANAGER Impressions 11/02/2023 10:43 AM CLINICAL STATISTICS MANAGER Since 10/31/2023, interval placement of left chest wall dual-chamber pacemaker with leads in appropriate position. No focal consolidation, large pleural effusion, or discernible pneumothorax. ??Normal heart size. Large hiatal hernia containing air-fluid level. Narrative 11/02/2023 10:43 AM CLINICAL STATISTICS MANAGER EXAM: ??DX CHEST AP OR PA AND LATERAL 2 VIEWS Procedure Note Naveen Samuels D.O. - 11/02/2023 EXAM: DX CHEST AP OR PA AND LATERAL 2 VIEWS IMPRESSION: Since 10/31/2023, interval placement of left chest wall dual-chamberpacemaker with leads in appropriate position. No focal consolidation,large pleural effusion, or discernible pneumothorax. Normal heart size.Large hiatal hernia containing air-fluid level. Kg Holguin M.D. IMG DIAGNOSTIC IMAGI NG PROCEDURES * PPM IMPLANT - DUAL CHAMBER (11/01/2023 5:12 PM CLINICAL STATISTICS MANAGER) Anatomical Region Laterality Modality X-Ray Angiograph y 11/01/2023 4:16 PM CLINICAL STATISTICS MANAGER Narrative 11/01/2023 5:21 PM CLINICAL STATISTICS MANAGER For the complete report, see the Order-Level Documents. PROCEDURE TYPES 1. ??PPM IMPLANT - DUAL CHAMBER ?? PRE-PROCEDURE DIAGNOSIS 1. ??Block Atrioventricular Second Degree ?? HRS NOTE Diagnosis: ?? Bradycardia Procedure: Dual chamber pacemaker ? Proceduralist: Kg Holguin M.D.? Gilbert Goss MD ? Anesthesia: MAC Estimated Blood Loss: 1-75 mL Complications: None Operative Note: The patient was brought to the Cardiac Electrophysiology Laboratory in the post-absorptive, non-sedated state. ??A procedure pause/time-out took place for patient identification and to confirm that the checklists were complete. Conscious sedation was instituted by the Anesthesia service. ??IV antibiotics were given prior to skin incision. ??The left clavicular area was prepped and draped in a sterile manner. Lidocaine 1% was used for local anesthesia. ??An approximately 5 cm incision was made inferior to the left clavicle. This incision was carried down through the subcutaneous tissue to the prepectoral fascia using sharp and blunt dissection and electrocautery. ??A subcutaneous pocket was created for the pacemaker pulse generator. ?? Venography was performed and venous access was achieved with an 21G micropuncture needle into the left axillary vein under direct fluoroscopic and ultrasound guidance. ??A guidewire was passed into the vein and positioning of the end of the guidewire in the inferior vena cava was confirmed fluoroscopically. This was upgraded to a standard J wire. A second access was obtained similarly. One wire was secured in place for later use. A 7F lead introducer sheath was passed over the guidewire and the dilator was removed. The pacing lead was placed without difficulty into the RA, and then advanced to the mid RV septum with the use of straight and curved stylets and multiple fluoroscopic views. ??The lead was actively fixed on the RV septum using a Mond stylet after adequate sensing and pacing values were confirmed with good injury current. ??The sheath was split and torn away. ??A second 7F introducer was then placed over the remaining guidewire and the dilator and wire were removed. ??Again using straight and curved stylets and multiple fluoroscopic views, a pacing lead was actively fixed to the right atrial appendage after adequate sensing and pacing values were confirmed with good injury current. ?? Hemostasis was obtained. After adequate slack was ensured, the leads were anchored in the subcutaneous tissue with multiple non-absorbable sutures. ??Testing of the leads using an external developer programmer analyst was performed revealing adequate threshold, sensitivity, and impedance. Then, maximum output pacing was used temporarily in both leads and assessment was made for diaphragmatic/extracardiac stimulation; there was none. The leads were inserted into the pacemaker generator header and the set screws were tightened. ??Nominal and stable pacing function was confirmed. ??The pocket was irrigated. Pocket hemostasis was obtained. ??The leads were wrapped carefully behind the generator and the generator placed in the pocket. ??An anchoring suture was placed for the generator. ??Final checks revealed stable/satisfactory sensing, impedance, and pacing thresholds. ??The pectoral fascia was closed with 2-0 Vicryl using interrupted sutures. The subcutaneous layer was then closed with a 2-0 Vicryl using horizontal mattress sutures.??The skin layer was closed with a 4-0 monocryl suture, and Mepilex dressing was used. The patient tolerated the procedure well. ?? The patient tolerated the procedure well and left the laboratory in stable condition without complications. ??The attending technical support representative was present for the entire procedure. Plan: - PA/lateral CXR - Avoid heparin products - Device pocket assessment and device check per protocol RADIATION DOSE DATA Procedure cumulative skin dose (mGy): 12.60 Procedure cumulative dose area product (Gy-cm2): 1.42 Fluoro Time (Min): 6.29 CONTRAST DOSE DATA iohexoL 300 mg iodine/mL solution (OMNIPAQUE): 10mL For the complete report, see the Order-Level Documents. Procedure Note Kg Holguin M.D. - 11/01/2023 For the complete report, see the Order-Level Documents. PROCEDURE TYPES 1. PPM IMPLANT - DUAL CHAMBER PRE-PROCEDURE DIAGNOSIS 1. Block Atrioventricular Second Degree HRS NOTE Diagnosis: Bradycardia Procedure: Dual chamber pacemaker ? Proceduralist: Kg Holguin M.D.? Gilbert Goss MD ? Anesthesia: MAC Estimated Blood Loss: 1-75 mL Complications: None Operative Note: The patient was brought to the Cardiac Electrophysiology Laboratory in thepost-absorptive, non-sedated state. A procedure pause/time-out took placefor patient identification and to confirm that the checklists werecomplete. Conscious sedation was instituted by the Anesthesia service. IVantibiotics were given prior to skin incision. The left clavicular areawas prepped and draped in a sterile manner. Lidocaine 1% was used forlocal anesthesia. An approximately 5 cm incision was made inferior to theleft clavicle. This incision was carried down through the subcutaneoustissue to the prepectoral fascia using sharp and blunt dissection andelectrocautery. A subcutaneous pocket was created for the pacemaker pulsegenerator. Venography was performed and venous access was achieved with an 21Gmicropuncture needle into the left axillary vein under direct fluoroscopicand ultrasound guidance. A guidewire was passed into the vein andpositioning of the end of the guidewire in the inferior vena cava wasconfirmed fluoroscopically. This was upgraded to a standard J wire. Asecond access was obtained similarly. One wire was secured in place forlater use. A 7F lead introducer sheath was passed over the guidewire andthe dilator was removed. The pacing lead was placed without difficultyinto the RA, and then advanced to the mid RV septum with the use ofstraight and curved stylets and multiple fluoroscopic views. The lead wasactively fixed on the RV septum using a Mond stylet after adequate sensingand pacing values were confirmed with good injury current. The sheath wassplit and torn away. A second 7F introducer was then placed over theremaining guidewire and the dilator and wire were removed. Again usingstraight and curved stylets and multiple fluoroscopic views, a pacing leadwas actively fixed to the right atrial appendage after adequate sensingand pacing values were confirmed with good injury current. Hemostasis was obtained. After adequate slack was ensured, the leads wereanchored in the subcutaneous tissue with multiple non-absorbable sutures.Testing of the leads using an external developer programmer analyst was performed revealingadequate threshold, sensitivity, and impedance. Then, maximum outputpacing was used temporarily in both leads and assessment was made fordiaphragmatic/extracardiac stimulation; there was none. The leads wereinserted into the pacemaker generator header and the set screws weretightened. Nominal and stable pacing function was confirmed. The pocketwas irrigated. Pocket hemostasis was obtained. The leads were wrappedcarefully behind the generator and the generator placed in the pocket. Ananchoring suture was placed for the generator. Final checks revealedstable/satisfactory sensing, impedance, and pacing thresholds. Thepectoral fascia was closed with 2-0 Vicryl using interrupted sutures. Thesubcutaneous layer was then closed with a 2-0 Vicryl using horizontalmattress sutures.??The skin layer was closed with a 4-0 monocryl suture,and Mepilex dressing was used. The patient tolerated the procedure well. The patient tolerated the procedure well and left the laboratory instable condition without complications. The attending electrophysiologistwas present for the entire procedure. Plan: - PA/lateral CXR - Avoid heparin products - Device pocket assessment and device check per protocol RADIATION DOSE DATA Procedure cumulative skin dose (mGy): 12.60 Procedure cumulative dose area product (Gy-cm2): 1.42 Fluoro Time (Min): 6.29 CONTRAST DOSE DATA iohexoL 300 mg iodine/mL solution (OMNIPAQUE): 10mL For the complete report, see the Order-Level Documents. Delilah Lopez P.A.-C., M.S. CV ELECTROPHYS IOLOGY PROCS * Sodium, Random, Urine (11/01/2023 10:44 AM CLINICAL STATISTICS MANAGER) Sodium, Random, U 48 mmol/L 11/01/2023 12:55 PM CLINICAL STATISTICS MANAGER DT Comment: ----REFERENCE VALUE---- Random urine sodium may be interpreted in conjunction with serum sodium, using both values to calculate fractional excretion of sodium. Urine (Urine, Straight Catheter) 11/01/2023 10:44 AM CLINICAL STATISTICS MANAGER 11/01/2023 11:37 AM CLINICAL STATISTICS MANAGER Delilah Lopez P.A.-C. M.SCarmine LAB URINE ORDE BENNIE Performing Organization Address City/[facility]/ZIP Co de Phone Number [facility] [address] [place] [address], [facility] [address] [place] [address] * Osmolality, Urine (11/01/2023 10:44 AM CLINICAL STATISTICS MANAGER) Only the most recent of3 resultswithin the time period is included. Osmolality, U 426 150 - 1150 mOsm/kg 11/01/2023 12:03 PM CLINICAL STATISTICS MANAGER DT Urine (Urine, Straight Catheter) 11/01/2023 10:44 AM CLINICAL STATISTICS MANAGER 11/01/2023 11:37 AM CLINICAL STATISTICS MANAGER Delilah Lopez P.A.-C. M.SCarmine LAB URINE ORDE BENNIE [facility] [address] [place] [address], [facility] [address] [place] [address] * (ABNORMAL) Osmolality (11/01/2023 6:35 AM CLINICAL STATISTICS MANAGER) Osmolality, S 265(L) 275 - 295 mOsm/kg 11/01/2023 9:40 AM CLINICAL STATISTICS MANAGER DTL Blood (Blood, Venous) 11/01/2023 6:35 AM CLINICAL STATISTICS MANAGER 11/01/2023 7:18 AM CLINICAL STATISTICS MANAGER Delilah Lopez P.A.-C., M.S. LAB BLOOD ADD- ON Performing Organization Address [facility] [place] [address] * Magnesium (11/01/2023 6:35 AM CLINICAL STATISTICS MANAGER) Only the most recent of2 resultswithin the time period is included. Pathologist [facility] Magnesium, S 2.1 1.7 - 2.3 mg/dL 11/01/2023 7:35 AM CLINICAL STATISTICS MANAGER DTL Blood (Blood, Venous) 11/01/2023 6:35 AM CLINICAL STATISTICS MANAGER 11/01/2023 7:18 AM CLINICAL STATISTICS MANAGER Delilah Lopez P.A.-C., M.S. LAB BLOOD ADD- ON Performing Organization Address [facility] [place] [address] * (ABNORMAL) Dipstick, Urine (10/31/2023 12:22 PM CLINICAL STATISTICS MANAGER) Only the most recent of3 resultswithin the time period is included. Hemoglobin, QL Moderate(A) Negative 10/31/2023 2:05 PM CLINICAL STATISTICS MANAGER DTL Leukocyte Esterase, U Trace(A) Negative 10/31/2023 2:05 PM CLINICAL STATISTICS MANAGER DTL Nitrite, U Negative Negative 10/31/2023 2:05 PM CLINICAL STATISTICS MANAGER DTL Ketones, U Negative Negative mg/dL 10/31/2023 2:05 PM CLINICAL STATISTICS MANAGER DTL Glucose, U Negative Negative mg/dL 10/31/2023 2:05 PM CLINICAL STATISTICS MANAGER DTL Urine 10/31/2023 12:2 2 PM CLINICAL STATISTICS MANAGER 10/31/2023 12:49 PM CLINICAL STATISTICS MANAGER Delilah Lopez P.A.-C. MCarmineSCarmine LAB URINE ORDCinda DURANDKATERYNA Performing Organization Address City/[facility] Co de Phone Number [facility] [address] [place] [address], [facility] [address] [place] [address] * (ABNORMAL) Microscopic Automated (10/31/2023 12:22 PM CLINICAL STATISTICS MANAGER) Only the most recent of2 resultswithin the time period is included. Microscopy Abnormal 10/31/2023 2:05 PM CLINICAL STATISTICS MANAGER DTL RBC 51-100(A) <3 /hpf 10/31/2023 2:05 PM CLINICAL STATISTICS MANAGER DTL Dysmorphic RBC <25 <25 % 10/31/2023 2:05 PM CLINICAL STATISTICS MANAGER DTL WBC 1-3 /hpf 10/31/2023 2:05 PM CLINICAL STATISTICS MANAGER DTL Comment: ----REFERENCE VALUE---- <4 ??(Males) <11 (Females) Urine 10/31/2023 12:2 2 PM CLINICAL STATISTICS MANAGER 10/31/2023 12:49 PM CLINICAL STATISTICS MANAGER Delilah Lopez P.A.-C. MCarmineSCarmine LAB URINE FRANDYCinda DURANDKATERYNA Performing Organization Address City/[facility] Co de Phone Number [facility] [address] [place] [address], [facility] [address] [place] [address] * pH, Urine (10/31/2023 12:22 PM CLINICAL STATISTICS MANAGER) Only the most recent of2 resultswithin the time period is included. pH, U 6.5 4.5 - 8.0 10/31/2023 2:1 1 PM CLINICAL STATISTICS MANAGER DTL Urine 10/31/2023 12:2 2 PM CLINICAL STATISTICS MANAGER 10/31/2023 12:49 PM CLINICAL STATISTICS MANAGER Delilah Lopez P.A.-C. MCarmineS. LAB URINE CARLOS EDUARDO AVERY Performing Organization Address City/[facility] Co de Phone Number [facility] [address] [place], [place] [id number] [place] [address] [address] [place] [address] * (ABNORMAL) Urinalysis with Microscopic: Urine, Straight Catheter (10/31/2023 12:22 PM CLINICAL STATISTICS MANAGER) Only the most recent of4 resultswithin the time period is included. Source Urine, Urine, Straight Catheter 10/31/2023 12:49 PM CLINICAL STATISTICS MANAGER DTL Color, U Yellow 10/31/2023 12:49 PM CLINICAL STATISTICS MANAGER DTL Clarity, U Clear 10/31/2023 12:49 PM CLINICAL STATISTICS MANAGER DTL Protein, U 23 <26 mg/dL 10/31/2023 1:41 PM CLINICAL STATISTICS MANAGER DTL Protein/Osmola lity 0.63(H) <0.42 ratio 10/31/2023 2:11 PM CLINICAL STATISTICS MANAGER DTL Predicted 24 HR Protein, U 603(H) <229 mg/24 h 10/31/2023 2:11 PM CLINICAL STATISTICS MANAGER DTL Predicted Range 191-1901 mg/24 h 10/31/2023 2:11 PM CLINICAL STATISTICS MANAGER DTL Urine (Urine, Straight Catheter) 10/31/2023 12:22 PM CLINICAL STATISTICS MANAGER 10/31/2023 12:49 PM CLINICAL STATISTICS MANAGER Delilah Lopez P.A.-C. M.S. LAB URINE CARLOS EDUARDO AVERY Performing Organization Address [facility]/ZIP Co de Phone Number [facility] [address] [place] [address], [facility] [address] [place] [address] * (TTE) 2D ECHO DOPPLER COLOR (10/31/2023 9:42 AM CLINICAL STATISTICS MANAGER) [facility] Ejection Fraction 51 MC CV EIMS Wall Motion Score Index 1.69 MC CV EIMS LV End-Diastolic Diameter 64 MC CV EIMS LV End-Systolic Diameter 46 MC CV EIMS LV End-Diastolic Volume 196 MC CV EIMS LV End-Systolic Volume 96 MC CV EIMS Left ventricular stroke volume index 52 MC CV EIMS Cardiac Output 3.77 MC CV EIMS Cardiac Index 1.96 MC CV EIMS TR Vmax 3.93 MC CV EIMS RA Pressure 5 MC CV EIMS RV Systolic Pressure 67 MC CV EIMS AV mean gradient 20 MC CV EIMS Aortic valve area 1.29 MC CV EIMS Aortic Valve Area Index 0.67 MC CV EIMS Aortic Valve Dimensionless Index 0.26 MC CV EIMS Aortic Valve Systolic Peak Velocity 3 MC CV EIMS Anatomical Region Laterality Modality Echocardiography 10/31/2023 7:59 AM CLINICAL STATISTICS MANAGER Impressions 10/31/2023 10:20 AM CLINICAL STATISTICS MANAGER Echo performed at the patient's bedside. Echocardiogram performed per left ventricular function protocol with assessment of aortic stenosis. Last full echocardiogram performed 10/11/2022. Status post coronary artery stent implantation x 2 to proximal and mid-LAD (24-AUG-2015). LEFT VENTRICLE:Severely enlarged left ventricular chamber size. Calculated 2-D biplane volumetric left ventricular ejection fraction of 51%. Left ventricular cardiac index 1.96 l/min/m2 at HR 38 bpm. Left ventricular stroke volume index 52 ml/m2. Regional wall motion abnormalities were present (see wall motion graphics). Indeterminate left ventricular filling pressure. RIGHT VENTRICLE:Enlarged right ventricular chamber size by visual estimate. Mildly reduced right ventricular systolic function. Estimated right ventricular systolic pressure 67 mmHg (systolic blood pressure 152 mmHg). ATRIA:Moderately enlarged left atrial size by visual estimate. Enlarged right atrial size by visual estimate. CARDIAC VALVES:Trileaflet aortic valve. Moderate ??aortic valve stenosis. Aortic valve systolic mean Doppler gradient 20 mmHg. Aortic valve area by Doppler 1.29 cm2. Mild aortic valve regurgitation. Mildly thickened mitral valve. Mild mitral valve regurgitation. Normal pulmonary valve. Mild pulmonary valve regurgitation. Tricuspid annulus dilatation. Moderate tricuspid valve regurgitation. OTHER ECHO FINDINGS:Normal inferior vena cava size with normal inspiratory collapse (>50%). Agitated saline injection(s) performed at prior TTE 10/11/2022: no intracardiac nor intrapulmonary shunt. No intracardiac mass or thrombus, but the left atrial appendage cannot be visualized adequately with transthoracic echo to exclude thrombus in this location. No ??pericardial effusion. For the complete report, see the Order-Level Documents. Narrative 10/31/2023 10:20 AM CLINICAL STATISTICS MANAGER For the complete report, see the Order-Level Documents. Hemodynamics Heart Rate: 38 BPM Blood Pressure: 152 / 102 mmHg ECG: Sinus rhythm with ectopics, 2nd degree A-V block, Right bundle branch block, Bradycardia; frequent ectopy Final Impressions 1. Severely enlarged left ventricular chamber size. 2. Calculated 2-D biplane volumetric left ventricular ejection fraction of 51%. 3. Regional wall motion abnormalities were present (see wall motion graphics). 4. Enlarged right ventricular chamber size by visual estimate. 5. Mildly reduced right ventricular systolic function. 6. Estimated right ventricular systolic pressure 67 mmHg (systolic blood pressure 152 mmHg). 7. Moderate ??aortic valve stenosis. 8. Aortic valve systolic mean Doppler gradient 20 mmHg. 9. Aortic valve area by Doppler 1.29 cm2. 10. Mild aortic valve regurgitation. 11. Moderate tricuspid valve regurgitation. 12. No ??pericardial effusion. 13. Compared to the report of 10/11/2022 the following changes have occurred: Patient has high grade heart block with higher PA systolic pressure and lower cardiac output. Procedure Note Chito Phillips M.D. - 10/31/2023 For the complete report, see the Order-Level Documents. Hemodynamics Heart Rate: 38 BPM Blood Pressure: 152 / 102 mmHg ECG: Sinus rhythm with ectopics, 2nd degree A-V block, Right bundle branchblock, Bradycardia; frequent ectopy Final Impressions 1. Severely enlarged left ventricular chamber size. 2. Calculated 2-D biplane volumetric left ventricular ejection fraction of51%. 3. Regional wall motion abnormalities were present (see wall motiongraphics). 4. Enlarged right ventricular chamber size by visual estimate. 5. Mildly reduced right ventricular systolic function. 6. Estimated right ventricular systolic pressure 67 mmHg (systolic bloodpressure 152 mmHg). 7. Moderate aortic valve stenosis. 8. Aortic valve systolic mean Doppler gradient 20 mmHg. 9. Aortic valve area by Doppler 1.29 cm2. 10. Mild aortic valve regurgitation. 11. Moderate tricuspid valve regurgitation. 12. No pericardial effusion. 13. Compared to the report of 10/11/2022 the following changes haveoccurred: Patient has high grade heart block with higher PA systolicpressure and lower cardiac output. Findings Echo performed at the patient's bedside. Echocardiogram performed per leftventricular function protocol with assessment of aortic stenosis. Lastfull echocardiogram performed 10/11/2022. Status post coronary arterystent implantation x 2 to proximal and mid-LAD (24-AUG-2015). LEFT VENTRICLE:Severely enlarged left ventricular chamber size. Calculated2-D biplane volumetric left ventricular ejection fraction of 51%. Leftventricular cardiac index 1.96 l/min/m2 at HR 38 bpm. Left ventricularstroke volume index 52 ml/m2. Regional wall motion abnormalities werepresent (see wall motion graphics). Indeterminate left ventricular fillingpressure. RIGHT VENTRICLE:Enlarged right ventricular chamber size by visualestimate. Mildly reduced right ventricular systolic function. Estimatedright ventricular systolic pressure 67 mmHg (systolic blood pressure 152mmHg). ATRIA:Moderately enlarged left atrial size by visual estimate. Enlargedright atrial size by visual estimate. CARDIAC VALVES:Trileaflet aortic valve. Moderate aortic valve stenosis.Aortic valve systolic mean Doppler gradient 20 mmHg. Aortic valve area byDoppler 1.29 cm2. Mild aortic valve regurgitation. Mildly thickened mitralvalve. Mild mitral valve regurgitation. Normal pulmonary valve. Mildpulmonary valve regurgitation. Tricuspid annulus dilatation. Moderatetricuspid valve regurgitation. OTHER ECHO FINDINGS:Normal inferior vena cava size with normal inspiratorycollapse (>50%). Agitated saline injection(s) performed at prior TTE112/11/2021: no intracardiac nor intrapulmonary shunt. No intracardiac massor thrombus, but the left atrial appendage cannot be visualized adequatelywith transthoracic echo to exclude thrombus in this location. Nopericardial effusion. For the complete report, see the Order-Level Documents. Naveen Bell P.A.-C. CV ECHO PROCEDURES * Thyroid Function [place] (10/31/2023 8:14 AM CLINICAL STATISTICS MANAGER) TSH, Sensitive 0.6 0.3 - 4.2 mIU/L 10/31/2023 10:43 AM CLINICAL STATISTICS MANAGER DTL Blood (Blood, Venous) 10/31/2023 8:14 AM CLINICAL STATISTICS MANAGER 10/31/2023 9:05 AM CLINICAL STATISTICS MANAGER Naveen Bell P.A.-C. LAB BLOOD ADD-ON [facility] [address] [place] [address], [facility] [address] [place] [address] * (ABNORMAL) Troponin T, 5th Generation (10/31/2023 8:14 AM CLINICAL STATISTICS MANAGER) Only the most recent of2 resultswithin the time period is included. Troponin T, 5th gen 21(H) <=15 ng/L 10/31/2023 8:40 AM CLINICAL STATISTICS MANAGER [facility] Blood (Blood, Venous) 10/31/2023 8:14 AM CLINICAL STATISTICS MANAGER 10/31/2023 8:40 AM CLINICAL STATISTICS MANAGER Naveen Bell P.A.-C. LAB BLOOD ADD-ON Performing Organization Address City/[facility]/ZIP Co de Phone Number [facility] [address] [place] [address], [facility] [address] [place] [address] * (ABNORMAL) Hemoglobin A1c (10/31/2023 8:14 AM CLINICAL STATISTICS MANAGER) Hemoglobin A1c, B 6.1(H) 4.0 - 5.6 % 10/31/2023 11:41 AM CLINICAL STATISTICS MANAGER DT Comment: Hemoglobin A1c values of 5.7-6.4 percent indicate an increased risk for developing diabetes mellitus. In diabetic patients, HbA1c goals should be discussed with healthcare provider. Blood (Blood, Venous) 10/31/2023 8:14 AM CLINICAL STATISTICS MANAGER 10/31/2023 8:37 AM CLINICAL STATISTICS MANAGER Naveen Bell P.A.-C. LAB BLOOD ADD-ON [facility] [address] [place] [address], [facility] [address] [place] [address] * (ABNORMAL) Comprehensive Metabolic Panel (10/31/2023 8:14 AM CLINICAL STATISTICS MANAGER) Potassium, S 4.6 3.6 - 5.2 mmol/L 10/31/2023 10:43 AM CLINICAL STATISTICS MANAGER DTL Sodium, S 130(L) 135 - 145 mmol/L 10/31/2023 10:43 AM CLINICAL STATISTICS MANAGER DTL Chloride, S 94(L) 98 - 107 mmol/L 10/31/2023 10:43 AM CLINICAL STATISTICS MANAGER DTL Bicarbonate, S 22 22 - 29 mmol/L 10/31/2023 10:43 AM CLINICAL STATISTICS MANAGER DTL Anion Gap 14 7 - 15 10/31/2023 10:43 AM CLINICAL STATISTICS MANAGER DTL BUN (Blood Urea Nitrogen), S 13 8 - 24 mg/dL 10/31/2023 10:43 AM CLINICAL STATISTICS MANAGER DTL Creatinine 0.80 0.74 - 1.35 mg/dL 10/31/2023 10:43 AM CLINICAL STATISTICS MANAGER DTL Estimated GFR (eGFR) 89 >=60 mL/min/BS A 10/31/2023 10:43 AM CLINICAL STATISTICS MANAGER DTL Comment: Estimated GFR calculated using the 2020 CKD_EPI creatinine equation. Calcium, Total, S 8.7(L) 8.8 - 10.2 mg/dL 10/31/2023 10:43 AM CLINICAL STATISTICS MANAGER DTL Glucose, S 107 70 - 140 mg/dL 10/31/2023 10:43 AM CLINICAL STATISTICS MANAGER DTL Protein, Total, S 6.8 6.3 - 7.9 g/dL 10/31/2023 10:43 AM CLINICAL STATISTICS MANAGER DTL Albumin, S 3.9 3.5 - 5.0 g/dL 10/31/2023 10:43 AM CLINICAL STATISTICS MANAGER DTL Aspartate Aminotransferase (AST), S 25 8 - 48 U/L 10/31/2023 10:43 AM CLINICAL STATISTICS MANAGER DTL Alkaline Phosphatase, S 112 40 - 129 U/L 10/31/2023 10:43 AM CLINICAL STATISTICS MANAGER DTL Alanine Aminotransferase (ALT), S 20 7 - 55 U/L 10/31/2023 10:43 AM CLINICAL STATISTICS MANAGER DTL Bilirubin, Total, S 0.5 0.0 - 1.2 mg/dL 10/31/2023 10:43 AM CLINICAL STATISTICS MANAGER DTL Blood (Blood, Venous) 10/31/2023 8:14 AM CLINICAL STATISTICS MANAGER 10/31/2023 9:05 AM CLINICAL STATISTICS MANAGER Narrative Authorizing Provider Result Manuel Bell P.A.-C. LAB BLOOD ADD-ON Performing Organization Address [facility] Co de Phone Number [facility] [address] [place] [address], [facility] DTL [facility] [address] [place] [address] * (ABNORMAL) Bacterial Culture, Aerobic + Susceptibility, Urine (10/27/2023 1:40 PM CLINICAL STATISTICS MANAGER) Only the most recent of2 resultswithin the time period is included. Urine Culture Mixed microbiota (A) 10/29/2023 9:19 AM CLINICAL STATISTICS MANAGER [facility] Urine (Urine, Midstream) 10/27/2023 1:40 PM CLINICAL STATISTICS MANAGER 10/27/2023 7:07 PM CLINICAL STATISTICS MANAGER Comment:Specimen Source Site : Urine Dayami Murillo P.A.-C. LAB MICROBIOLOGY - GENERAL ORDERABLES Performing Organization Address [facility] Co de Phone Number [facility] [address] [place] [address], [facility] MKTO [facility] [address] [place] [address] * Non-Radiology Image-Urology Image Exam (10/03/2023 1:56 PM CLINICAL STATISTICS MANAGER) 10/03/2023 3:34 PM CLINICAL STATISTICS MANAGER Narrative [facility] - 10/03/2023 1:56 PM CLINICAL STATISTICS MANAGER This order has been created and auto-finalized to support the import of images acquired without order. The clinical documentation to support these images can be found on the encounter that produced images. Provider Not In System IMG NON RAD IMAGI NG PROCEDURES Performing Organization Address [facility] Co de Phone Number [facility] NA * [place] US TRANSRECTAL (10/03/2023 1:30 PM CLINICAL STATISTICS MANAGER) Narrative Sadia Amato M.D. - 10/03/2023 1:30 PM CLINICAL STATISTICS MANAGER Sadia Amato M.D. ? 10/03/2023 ??2:04 PM URO Prostate US Performed by: Sadia Amato M.D. Authorized by: Jonnathan Rahman, Danny MCCLELLANNRenetta, Ana.N.P., M.S. ?? IMPRESSION: ??Normal prostate ultrasound PROCEDURE DETAILS: Palpable nodule at right prostatic apex. ??Ultrasound demonstrated width of 58.8 mm, height of 33.0 mm, length of 67.1 mm. ??Total volume 68.1 cc. Ultrasound image guidance used to localize target, identify at risk structures, and dynamically used to direct therapy to the target. Image(s) acquired and saved. ??Number of images obtained: 3. COMMENTS Palpable nodule at right prostatic apex. ??Ultrasound demonstrated width of 58.8 mm, height of 33.0 mm, length of 67.1 mm. ??Total volume 68.[address] [facility] Danny MCCLELLANN.Jalen, Ana.N.P., M. S. UROLOGY ORDERABLES * URO Uroflow (10/03/2023 11:00 AM CLINICAL STATISTICS MANAGER) Narrative Orville Jeter M.D. - 10/03/2023 11:00 AM CLINICAL STATISTICS MANAGER Orville Jeter M.D. ? 10/03/2023 12:31 PM Reason for visit: UROFLOW The patient is here for a complex uroflow via calibrated electronic equipment and residual urine checked by ultrasound. Indications: ??Incomplete bladder emptying Peak flow: ??7.8 ml/sec Average flow: 4 ml/sec Voiding time: ??49.3 sec Total voided volume: ??193 mls Continuous (fluctuating) flow pattern Residual urine: ??170 ml by ultrasound Impression: Abnormal Uroflow. Elevated post void residual with low Qmax. ??Differential diagnosis includes bladder outlet obstruction vs hypocontractile bladder. Clinical correlation is recommended. [facility] Danny MCCLELLANN.P., D.N.P., M. S. UROLOGY ORDERABLES * OH CYSTOURETHROSCOPY (10/03/2023 9:30 AM CLINICAL STATISTICS MANAGER) Narrative Anai Wong P.A.-C. - 10/03/2023 9:30 AM CLINICAL STATISTICS MANAGER Anai Wong P.A.-C. ? 10/03/2023 10:08 AM URO Cystoscopy (general) Performed by: Anai Wong P.A.-C. Authorized by: Jonnathan Rahman APRN, C.N.P., D.N.P., M.S. ?? IMPRESSION ?? BPH and other Additional procedures performed: cystoscopy ?? PROCEDURE DETAILS Mr. Lovell is an 78-year-old gentleman who presents today for evaluation of BPH. The patient was brought to cystoscopy suite and placed in lithotomy position. He was prepped and draped in the standard fashion. A flexible cystoscope was inserted through the urethra into the bladder. Urethroscopy demonstrated normal-appearing urethra mucosa. ??Prostatic urethra was notable for evidence of stone. ??Given position elected to utilize the scope to push the stone back into the bladder. ??There was evidence of lateral lobe hyperplasia. ??Upon entrance into the bladder, berg cystoscopy was performed. ??Significant bladder wall trabeculation. ??No erythematous or papillary bladder lesions were noted. ??Approximately 4-5 mm bladder calculus was present. ??Ureteral orifices were identified in their orthotopic position bilaterally and seen to efflux clear urine. Retroflex view demonstrated normal appearing bladder neck. ??Multiple pictures were taken. ??Cystoscope was then removed, patient tolerated the procedure well. DIAGNOSIS: ??Bilobar hyperplasia Bladder calculus PLAN: ??Patient has upcoming consultation with Dr. Adams for further evaluation. ??He was provided with a strainer given presence of bladder calculus. A flexible cystoscope was inserted through the urethra into the bladder. Cystoscope was removed at the end of procedure. CONSENT Consent obtained: verbal Consent given by: patient The benefits, risks and alternatives to the procedure and the potential need for sedation or anesthesia as well as the names, roles, and responsibilities of healthcare team members performing significant interventional tasks were discussed with the patient and/or decision maker. UNIVERSAL PROTOCOL All relevant documentation and testing were reviewed and available. All required blood products, implants, devices and or special equipment were made available as applicable. Pre-procedure verification was conducted and the correct site was marked if required. A fire risk assessment was done as applicable. The procedural time-out to verify correct patient, correct side/site, and procedure was conducted prior to performing the procedure and confirmed in a procedural pause. PRE-PROCEDURE DETAILS Procedure purpose: ??Diagnostic Indications: ??BPH Appropriate hand hygiene, gown, cap, mask, protective eyewear, sterile gloves, skin preparation, sterile drape, and strict aseptic technique were utilized as applicable for the procedure.: yes ?? Site preparation: ??Povidone-iodine SEDATION / ANESTHESIA Anesthesia method: none POST-PROCEDURE DETAILS Procedure completed successfully: yes ?? Complications: no apparent complications ?? COMMENTS The ordering provider is responsible for reviewing results of the procedure and communicating the findings to the patient. ??Patient was educated on post procedure instructions. ?? Jonnathan Rahman APRN, C.N.P., Ana.N.P., M. S. UROLOGY ORDERABLES * Osmolality, Urine (09/08/2023 10:49 AM CDT) Osmolality, U 467 150 - 1150 mOsm/kg 09/08/2023 11:49 AM CDT DTL Urine 09/08/2023 10:4 9 AM CDT 09/08/2023 11:10 AM CDT Bandarme Josiah MCCLELLAN C.N.P., Ana.N.P., M. S. LAB URINE ORDERABLES [facility] [address] [place] [address], [facility] [address] [place] [address] * pH, Random, Urine (09/08/2023 10:49 AM CDT) pH, Random, U 6.5 4.5 - 8.0 09/08/2023 11:49 AM CDT DTL Urine 09/08/2023 10:4 9 AM CDT 09/08/2023 11:10 AM CDT Jonnathan Rahman APRN, C.N.P., Ana.N.P., M. S. LAB URINE ORDERABLES Performing Organization Address [facility] de Phone Number [facility] [address] [place], [place] [id number] [place] [phone] * (ABNORMAL) Microscopic Manual (09/08/2023 10:49 AM CDT) Microscopy Abnormal 09/08/2023 12:00 PM CDT DTL RBC <3 <3 /hpf 09/08/2023 12:00 PM CDT DTL WBC 4-10(A) /hpf 09/08/2023 12:00 PM CDT DTL Comment: ----REFERENCE VALUE---- 1-3 ??(Males) 1-10 (Females) Urine 09/08/2023 10:4 9 AM CDT 09/08/2023 11:10 AM CDT Bandarme Danny Rahman APRNNRenetta, NuhaP., M. S. LAB URINE ORDERABLES Performing Organization Address [facility] de Phone Number [id number] [place] [id number] * PSA (Prostate-Specific Antigen), Diagnostic (09/08/2023 10:43 AM CDT) Prostate-Specific Ag 0.93 <=7.2 ng/mL 09/08/2023 11:51 AM CDT DTL Comment: ----ADDITIONAL INFORMATION---- The testing method is an electrochemiluminescence assay manufactured by [employer] and performed on the [employer] or [employer] system. Values obtained with different assay methods or kits may be different and cannot be used interchangeably. Test results cannot be interpreted as absolute evidence for the presence or absence of malignant disease. Blood (Blood, Venous) 09/08/2023 10:43 AM CDT 09/08/2023 11:16 AM CDT Jonnathan Rahman APRN C.N.P., D.Blu.P., M. S. LAB BLOOD ADD-ON [facility] [address] [place] [address], [place] DTL [facility] [address] [place] [address] from Last 3 Months Advance Directives For more information, please contact: [phone] Latest Code Status on File Code Status Date Activated Date Inactivated Comments Full Code 11/28/2023 11:18 PM 11/30/2023 4:03 PM Question Answer Comments Full Code: Discussed Code Status History Code Status Date Activated Date Inactivated Comments Full Code 10/31/2023 3:46 AM 11/02/2023 3:15 PM Question Answer Comments Full Code: Discussed Full Code 05/27/2021 2:58 PM 05/27/2021 8:21 PM Question Answer Comments Full Code: Not Discussed Due to: Patient does not have the [facility] ty Care Teams Ict Support Engineer Relationship Specialty Start Date End Date Elsewhere, Pcp PCP - General Family Medicine 10/25/18
--- OUTSIDE RECORDS SUMMARY | 2023-12-09 00:03 | XMS_ITS | Encounter Summary ---
Author Name Unknown Organization [facility] Address [address] [place] [address] Care Team Providers Care Jockey Room Custodian Name Role Phone Elsewhere, Pcp Primary Care Provider Unavailabl e Reason for Visit * Reason Onset Date Comments patient update 12/05/2023 Encounter Details Date Type Department Care Team (Latest Contact Info) Description 12/05/2023 Clinical Communication Department of Cardiovascular Medicine in [place], [place] [address] [place] [phone] Renetta Tyler, R.N. patient update Social History Tobacco Use Types Packs/Day Years Used Date Smoking Tobacco: Never Passive Smoke Exposure: Past Smokeless Tobacco: Never Passive Exposure Comments:Gr owing up for Many years - Father Alcohol Use Standard Drinks/Week Comments No 0 (1 standard drink = 0.6 oz pur e alcohol) [facility] Utilities Answer Date Recorded In the past 12 months has e [employer], gas, oil, or water [employer] threatened to shut off services in your [...] re latives? Once a week 05/31/2020 Attends [employer] Not on file 05/31 Active Member [...] Answer Date Recorded PHQ-2 Score 0 10/27/2023 [facility] of Occupat ional Health - Occupational Stress Questionnaire Answer Date Recorded [...] your living situation today? I have a [facility] place to live 11/29/2023 Education Answer Date Recorded What is the highest level of school you have completed or the highest degree you have received? 12th grade 10/15/2019 Sex and Gender Information Value Date Recorded Sex Assigned at Male 03/01/2019 1:23 PM CDT Gender Identity Male 03/01/2019 1:23 PM CDT Sexual Orientation Straight 03/01/2019 1: 23 PM CDT documented as of this encounter Miscellaneous Notes * Telephone Encounter - Renetta Tyler R.N. - 12/05/2023 11:08 AM CST Zeynep Badillo did receive a remote to follow up on the slow flutter last reported. The report from today shows he is no longer in the rhythm. His rhythm is Atrial sensing with ventricular pacing at 80 bpm. Just wanted to update you. Thanks! Renetta Tyler RN ICAL TEAM MANAGER documented in this encounter Plan of Treatment Upcoming Encounters Date Type Department Care Team (Late st Contact Info) Description 12/13/2023 8:50 AM CLINICAL TEAM MANAGER Appointment Department of Laboratory Medicine and Pathology, [facility], in [place], [place] [address] [place] [phone] Natasha Mullins APRN, C.N.P., M.S., M.S.N. [address] [place] [phone] 12/13/2023 11:00 AM CLINICAL TEAM MANAGER Office Visit Department of Cardiovascular Medicine in [place], [place] [address] [place] [phone] Natasha Mullins APRN, C.N.P., M.S., M.S.N. [address] [place] [phone] 02/02/2024 9:15 AM CDT Appointment Department of Cardiovascular Diseases in [place], [place] [address] [place] [phone] Fazal Reynoso M.D. [address] [place] [phone] documented as of this encounter Visit Diagnoses Not on filedocumented in this encounter Care Teams Jockey Room Custodian Relationship Specialty Start Date End Date Elsewhere, Pcp PCP - General Family Medicine 10/25/18 documented as of this encounter
--- OUTSIDE RECORDS SUMMARY | 2023-12-09 00:03 | XMS_ITS | Encounter Summary ---
Author Name Unknown Organization [facility] Address [address] [place] [id number] Care Team Providers Care Second Facing Baster Name Role Phone Elsewhere, Pcp Primary Care Provider Unavailabl e Reason for Referral * Outpatient (Routine) - Authorized Specialty Diagnoses / Procedures Referred By Contnae t Referred To Contact Cardiovascular Disease Natasha Mullins APRN, DannyNRenetta, M.S., M.S.N. [address] [place] [phone] [facility] Referral ID Status Reason Start Date Expiration Date V isits Requested Visits Authorized [id number] Authorized 12/08/2023 06/08/2025 1 1 Scheduling Instructions Use any open slot including urgent. But not as an extra. D WING AIRCRAFT FLIGHT MECHANIC Encounter Details Date Type Department Care Team (Latest Contact Info) Description 12/08/2023 Orders Only Department of Cardiovascular Medicine in [place], [place] [address] [place] [phone] Natasha Mullins APRN, C.N.P., M.S., M.S.N. [address] [place] [phone] Cardiomyopathy Ischemic (Primary Dx); Dyspnea On Exertion Social History Tobacco Use Types Packs/Day Years Used Date Smoking Tobacco: Never Passive Smoke Exposure: Past Smokeless Tobacco: Never Passive Exposure Comments:Gr owing up for Many years - Father Alcohol Use Standard Drinks/Week Comments No 0 (1 standard drink = 0.6 oz pur e alcohol) [facility] Utilities Answer Date Recorded In the past 12 months has e electric, gas, oil, or water company threatened to shut off services in your [...] re latives? Once a week 05/31/2020 Attends [employer] Not on file 05/31 Active Member [...] Answer Date Recorded PHQ-2 Score 0 10/27/2023 [employer] [place] of Occupat ional Health - Occupational Stress [...] your living situation today? I have a [facility] place to live 11/29/2023 Education Answer [...] st Contact Info) Description 12/13/2023 8:50 AM FIXED WING AIRCRAFT FLIGHT MECHANIC Appointment Department of Laboratory Medicine and Pathology, [facility], in [place], [place] [address] [place] [phone] Natasha Mullins APRN, Justin, M.S., M.S.N. [address] [place] [phone] 12/13/2023 11:00 AM FIXED [employer]ING [employer] MECH[employer]IC Office Visit Department of Cardiovascular Medicine in [place], [place] [address] [place] [phone] Natasha Mullins APRN, Radha.Diego., M.S., M.S.N. [address] [place] [phone] 02/02/2024 9:15 AM CDT Appointment Department of Cardiovascular Diseases in [place], [place] [address] [place] [phone] Fazal Reynoso M.D. [address] [place] [phone] Scheduled Orders Name Type Priority Associated Diagnoses Orde r Schedule BUN (Blood Urea Nitrogen) Lab Routine Cardiomyopathy Ischemic Dyspnea On Exertion Expected: 12/12/2023, Expires: 12/08/2024 Creatinine with Estimated GFR Lab Routine Cardiomyopathy Ischemic Dyspnea On Exertion Expected: 12/12/2023, Expires: 12/08/2024 NT-Pro B-Type Natriuretic Peptide (BNP) Lab Routine Cardiomyopathy Ischemic Dyspnea On Exertion Expected: 12/12/2023, Expires: 12/08/2024 Potassium Lab Routine Cardiomyopathy Ischemic Dyspnea On Exertion Expected: 12/12/2023, Expires: 12/08/2024 Sodium Lab Routine Cardiomyopathy Ischemic Dyspnea On Exertion Expected: 12/12/2023, Expires: 12/08/2024 Scheduled Referrals Name Type Priority Associated Diagnoses Order Schedule Cardiovascular Disease office visit (clinic) Outpatient Referral Routine Expect ed: 12/12/2023, Expires: 03/08/2025 documented as of this encounter Visit Diagnoses Diagnosis Cardiomyopathy Ischemic- Primary Dyspnea On Exertion documented in this encounter Care Teams Second Facing Baster Relationship Specialty Start Date End Date Elsewhere, Pcp PCP - General Family Medicine 10/25/18 documented as of this encounter
--- OUTSIDE RECORDS SUMMARY | 2023-12-09 00:03 | XMS_ITS ---
Author Name Unknown Organization [facility] Address [address] [place] [address] Care Team Providers Care Wooden Furniture Polisher Name Role Phone Unavailable Unavailable Unavailable Surgery Details Not on file Complications Check Surgery Details section. Procedure Estimated Blood Loss Check Surgery Details section. Procedure Findings Check Surgery Details section. Procedure Specimens Taken Check Surgery Details section.
--- OUTSIDE RECORDS SUMMARY | 2023-12-09 00:03 | XMS_ITS | Referral Summary ---
Author Name Unknown Organization [facility] Address [address] [place] [id number] Care Team Providers Care Tagman Name Role Phone Elsewhere, Pcp Primary Care Provider Unavailabl e Source Comments Patient records contain information from all sites at [facility]. For routine questions regarding patient records, call [phone] during business hours, M-F 8:00 AM - 5:00 PM Central Time. Record requests for emergency care only can be directed to [phone] at any time.[facility] Encounters Date Type Department Care Team Description 12/08/2023 Orders Only Department of Cardiovascular Medicine in [place], [place] [address] [place] [phone] Natasha Mullins APRN, C.N.P., M.S., M.S.N. Cardiomyopathy Ischemic (Primary Dx); Dyspnea On Exertion 12/05/2023 Clinical Communication Department of Cardiovascular Medicine in [place], [place] [address] [place] [phone] Renetta Tyler R.N. patient update 12/05/2023 4:00 AM FAST BRIM POUNCER - 12/05/2023 12:08 PM FAST BRIM POUNCER Hospital Encounter Department of Cardiovascular Diseases in [place], [place] [address] [place] [phone] Bautista Moore M.D., M.P.H. Encounter For Checking And Testing Of Cardiac Pacemaker Pulse Generator Battery Discharge Disposition: Home or Self Care 12/05/2023 12:09 PM FAST BRIM POUNCER - 12/05/2023 12:43 PM FAST BRIM POUNCER Hospital Encounter Department of Laboratory Medicine and Pathology, [facility] in [place], [place] [address] [place] [phone] Loni Wu M.D. Malignant Neoplasm Of Thyroid Papillary (HCC); Cardiomyopathy Ischemic Discharge Disposition: Home or Self Care 12/05/2023 12:44 PM FAST BRIM POUNCER - 12/05/2023 11:59 PM FAST BRIM POUNCER Hospital Encounter Department of Radiology, [facility] in [place], [place] [address] [place] [phone] Loni Wu M.D. Malignant Neoplasm Of Thyroid Papillary (HCC) Discharge Disposition: Home or Self Care 12/05/2023 3:30 PM FAST BRIM POUNCER Office Visit Division of Endocrinology in [place], [place] [address] [place] [phone] Loni Wu M.D. Malignant Neoplasm Of Thyroid Papillary (HCC) 12/02/2023 Clinical Communication Department of Cardiovascular Medicine in [place], [place] [address] [place] [phone] Renetta Tyler, R.N. concern for slow atrial flutter 12/01/2023 Refill Department of Cardiovascular Medicine in [address] [phone] Natasha Mullins APRN, C.N.P., M.S., M.S.N. Med Refill 11/28/2023 8:37 PM FAST BRIM POUNCER - 11/30/2023 1:48 PM FAST BRIM POUNCER Hospital Encounter [facility], Third Floor [address] [place] [phone] Hector Barragan M.D. Alonzo Royal M.D. Stultz, Benjamin R, M.D. Ahmad, Sumera R, M.B.B.S. Pneumonia (Primary Dx); Hypoxia; Respiratory Failure (HCC) Discharge Disposition: Home or Self Care 11/29/2023 1:15 PM FAST BRIM POUNCER Ancillary Procedure Emergency Department [address] [place] [phone] Hector Barragan M.D. 11/28/2023 8:45 PM FAST BRIM POUNCER Ancillary Procedure Emergency Department [facility] [place] [phone] Hector Barragan M.D. 11/28/2023 4:00 AM FAST BRIM POUNCER - 11/28/2023 8:36 PM FAST BRIM POUNCER Hospital Encounter Department of Cardiovascular Diseases in [address] [phone] Heraclio Schulz M.B.B.S. Encounter For Checking And Testing Of Cardiac Pacemaker Pulse Generator Battery Discharge Disposition: Home or Self Care 11/28/2023 Clinical Communication Department of Cardiovascular Medicine in [address] [phone] Sofie Barba R.N. [place] recorded on pacemaker 11/25/2023 4:00 AM FAST BRIM POUNCER - 11/25/2023 11:59 PM FAST BRIM POUNCER Hospital Encounter Department of Cardiovascular Diseases in [address] [phone] Dylan Dietrich M.B.B.S. Encounter For Checking And Testing Of Cardiac Pacemaker Pulse Generator Battery Discharge Disposition: Home or Self Care 11/22/2023 Refill Division of Endocrinology in [address] [phone] Loni Wu M.D. Med Refill 11/22/2023 8:30 AM FAST BRIM POUNCER Comprehensive Visit Department of Urology in [address] [phone] Margaux Adams D.O. Nodule Prostate; Retention Urinary 11/18/2023 7:00 AM FAST BRIM POUNCER Clinical Communication Virtual Review in [address] [address] Pre-visit Intake 11/15/2023 Documentation Department of Cardiovascular Medicine in [address] [phone] Radha Gray 11/15/2023 3:00 PM FAST BRIM POUNCER Office Visit Department of Cardiovascular Medicine in [place], [place] [address] [place] [address] Eugene Slaughter M.D., Ph.D. Cardiomyopathy Ischemic (Primary Dx) 11/02/2023 Orders Only Department of Cardiovascular Diseases in [place], [place] [address] [place] [address] Hugh Chisholm R.N. Encounter For Checking And Testing Of Cardiac Pacemaker Pulse Generator Battery (Primary Dx) 11/02/2023 Clinical Communication Department of Cardiovascular Medicine in [place], [place] [address] [place] [phone] Kg Holguin M.D. DEVICE REGISTRATION (COMMUNICATION) 10/31/2023 2:44 AM FAST BRIM POUNCER - 11/02/2023 1:04 PM FAST BRIM POUNCER Hospital Encounter , [facility], [facility], Fourth Floor [address] [place] [phone] Beau Grubbs M.D. Giudicessi, John R, M.D., Ph.D. Block Atrioventricular Second Degree (Primary Dx) Discharge Disposition: Home or Self Care 11/01/2023 3:50 PM FAST BRIM POUNCER Anesthesia Event Division of Cardiovascular Diseases in [address] [phone] Rodrick Ortega APRN, SUBWAREHOUSE SUPERVISOR Marcela Lamas APRN, CRNA 11/01/2023 4:34 PM FAST BRIM POUNCER - 11/01/2023 7:04 PM FAST BRIM POUNCER Surgery Division of Cardiovascular Diseases in [place], [place] [address] [place] [phone] Kg Holguin M.D. PPM IMPLANT - DUAL CHAMBER 10/31/2023 Clinical Communication Department of Urology in [place], [place] [address] [place] [phone] Margaux Adams D.O. 10/31/2023 Intake [facility] 10/30/2023 11:27 PM FAST BRIM POUNCER - 10/31/2023 1:52 AM FAST BRIM POUNCER Emergency [facility] [address] [place] [phone] Hernandez Bacon P.A.-C. Shortness Of Breath (Primary Dx); Failure Heart (HCC); Bradycardia Discharge Disposition: [facility] 10/27/2023 1:37 PM FAST BRIM POUNCER - 10/27/2023 11:59 PM FAST BRIM POUNCER Hospital Encounter Department of Laboratory Medicine in [place], [place] [address] [place] [phone] Dayami Murillo P.A.-C. Dysuria Discharge Disposition: Home or Self Care 10/27/2023 1:30 PM FAST BRIM POUNCER Office Visit Department of Family Medicine, [facility], in [place], [place] 300 [place] [phone] Dayami Murillo P.A.-C. Dysuria (Primary Dx) 10/27/2023 Nurse Triage Department of Family Medicine, [facility], in [place], [place] [address] [place] [phone] Chula Ruiz R.N. Urinary Symptom 10/21/2023 Clinical Communication Department of Cardiovascular Medicine in [place], [place] [address] [place] [phone] Natasha Mullins APRN, Radha.N.PCarmine, M.S., M.S.N. Shortness of breath abrupt episode (Seen this morning at [facility]. See chart.) 10/21/2023 8:13 AM FAST BRIM POUNCER - 10/21/2023 9:37 AM [facility] Emergency [facility] [address] [place] [phone] Orville Khalil P.A.-C., P.A. Beat Premature Ventricular (Primary Dx); Hyponatremia; Failure Heart (HCC); Dyspnea On Exertion Discharge Disposition: Home or Self Care 10/20/2023 Refill Department of Cardiovascular Medicine in [place], [place] [address] [place] [phone] Natasha Mullins APRN, Radha.N.P., M.S., M.S.N. Med Refill 10/10/2023 Clinical Communication Department of Urology in [place], [place] [address] [place] [phone] [facility] C.N.PCarmine, Isis.N.P., M.S. 10/03/2023 3:35 PM FAST BRIM POUNCER Ancillary Procedure Department of Urology 10/03/2023 11:00 AM FAST BRIM POUNCER Procedure visit Department of Urology in [place], [place] [address] [place] [phone] [facility] C.N.P., Isis.N.P., M.S. Sherri Lopez, L.P.N. Incomplete Bladder Emptying (Primary Dx); Nodule Prostate; Retention Urinary 10/03/2023 7:06 AM FAST BRIM POUNCER - 10/03/2023 11:59 PM FAST BRIM POUNCER Hospital Encounter Department of Laboratory Medicine and Pathology, [place], [place] [address] [place] [phone] [facility] C.N.Jalen, Isis.N.P., M.S. Nodule Prostate; Retention Urinary Discharge Disposition: Home or Self Care 10/03/2023 9:30 AM FAST BRIM POUNCER Procedure visit Department of Urology in [place], [place] [address] [place] [phone] [facility] C.N.P., Isis.N.P., M.S. Anai Wong, P.A.-Radha. Nodule Prostate; Retention Urinary 10/03/2023 1:30 PM FAST BRIM POUNCER Procedure visit Department of Urology in [place], [place] [address] [place] [phone] [facility] C.NCarmineP., D.N.P., M.S. Sadia Amato M.D. Nodule Prostate; Retention Urinary 09/08/2023 10:28 AM CDT Hospital Encounter Department of Laboratory Medicine and Pathology, [facility] in [place], [place] [address] [place] [phone] rondaJonnathan APRN, C.N.Jalen, Isis.N.P., M.S. Nodule Prostate Discharge Disposition: Home or Self Care 09/08/2023 10:29 AM CDT - 09/08/2023 11:59 PM CDT Hospital Encounter Department of Laboratory Medicine and Pathology, [facility], in [place], [place] [address] [place] [phone] rondaJonnathan APRN, C.N.Jalen, Isis.N.P., M.S. Nodule Prostate Discharge Disposition: Home or Self Care 09/08/2023 1:00 PM CDT Comprehensive Visit Department of Urology in [place], [place] [address] [place] [phone] rondaJonnathan APRN, C.N.P., Isis.N.P., M.S. 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); Chronic Kidney Disease (CKD), Stage 3a Glomerular Filtration Rate (GFR) 45 To 59 (HCC) from Last 3 Months Allergies Active Allergy Reactions Criticality Noted Date [...] GI intolerance Medium 07/07/2015 Nausea & Vomiting Lawrence Pollen Itching Medium 07/10/2010 Seasonal Allergies: Allergic [...] 02/10/2023 Malignant Neoplasm Of Thyroid Papillary 05/27/20 21 Lymphadenopathy Cervical 04/23/2021 Lesion Skin Polypoid 04/28/2020 Follow Up Examination Postoperative Visit 2018 Malignant Neoplasm Of Thyroid 03/16/2019 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 Congestive Heart Failure Sys tolic Chronic Heart Failure With Reduced Ejection Fraction 10/14/2016 Cardiomyopathy Ischemic 04/15/2016 Hyperlipidemia 10/14/2015 Atherosclerotic Heart Diseas e Of [place] Coronary Artery Without Angina Pectoris 10/14/2015 Heart Failure NOS 10/14/2015 Resolved Problems Problem Noted Date Diagnosed Date Resolved Date Respiratory Failure 11/28/2023 11/30/19 24 Malignant Neoplasm Of Thyroid Papillary 04/17/2019 04/23/2021 Immunizations Name Administration Dates Next Due H1N1 [...] quad (FLUZONE/FLUARIX) (6 months and older)(PF) 07/26/2017 Social History Tobacco Use Types Packs/Day Years Used Date Smoking Tobacco: Never Passive Smoke Exposure: Past Smokeless Tobacco: Never Tobacco Cessation:Counseling Given: Not Answered Passive Exposure Comments:Growing up for Many years - Father Alcohol Use Standard Drinks/Week Comments No 0 (1 standard drink = 0.6 oz pur e alcohol) [facility] Utilities Answer Date Recorded In the past 12 months has th e electric, gas, oil, or water company [...] re latives? Once a week 05/31/2020 Attends [employer] Not on file 05/31 Active Member [...] Answer Date Recorded PHQ-2 Score 0 10/27/2023 [facility] [place] of Occupat ional Health - Occupational Stress [...] your living situation today? I have a [facility] place to live 11/29/2023 Education Answer Date [...] Comments Blood Pressure 124/75 11/30/2023 8:00 AM FAST BRIM POUNCER Pulse 78 11/30/2023 8:00 AM FAST BRIM POUNCER Temperature 36.2 ??C (97.2 ??F) 11/30/2023 8:00 AM CS T Respiratory Rate 17 11/30/2023 8:00 AM FAST BRIM POUNCER Oxygen Saturation 95% 11/30/2023 8:00 AM FAST BRIM POUNCER Inhaled Oxygen Concentration - - Weight 80.6 kg (177 lb 11.1 oz) 11/29/2023 3:45 AM FAST BRIM POUNCER Height 175 cm (5' 8.9) 11/28/2023 11:4 5 PM FAST BRIM POUNCER Body Mass Index 26.32 11/28/2023 11:45 PM FAST BRIM POUNCER Plan of Treatment Upcoming Encounters Date Type Department Care Team (Late st Contact Info) Description 12/13/2023 8:50 AM FAST BRIM POUNCER Appointment Department of Laboratory Medicine and Pathology, [facility] in [place], [place] [address] [place] [phone] Natasha Mullins APRN, C.N.P., M.S., M.S.N. [address] [place] [phone] 12/13/2023 11:00 AM FAST BRIM POUNCER Office Visit Department of Cardiovascular Medicine in [address] [phone] Natasha Mullins APRN, Radha.N.P., M.S., M.S.N. [address] [place] [phone] 02/02/2024 9:15 AM CDT Appointment Department of Cardiovascular Diseases in [address] [phone] Fazal Reynoso M.D. [address] [place] [phone] Medical Devices Implanted Type Area Furniture Servicer Device Identifier Shelf Expiration Date Model / Serial / Lot Lead Ppm Capsure Fix Novus 52 - [id number] - [id number] Implanted:Qty: 1 on 11/01/2023 by Kg Holguin M.D. at [facility] Cardiac Lead Medtronic 08/09/2025 [id number] / [id number] / Premier 2.75 X 12 - [id number] Implanted:Qty: 1 on 08/24/2015 Cardiac Stent Fitocracy Scientific Description:Device Manufactu rer - [employer]. Device Status Text - [id number]. Dental Crowns Hardware e.g. pins/screws/ rods Tooth Msh Prl Erin Polyprp Knit 6x6 - [id number] Implanted:Qty: 1 on 01/16/2021 by Katty Clarke M.D. at [facility] Mesh or Patch Left: Inguinal Ethicon 04/13/2025 PMH / / [id number] Ocular Lens Ocular Lens Bilateral: Eye Ppm Anne Marie - [id number] - [id number] Implanted:Qty: 1 on 11/01/2023 by Kg Holguin M.D. at [facility] Pacemaker Medtronic 04/10/2025 [id number] / [id number] / Procedures Procedure Name Priority Date/Time Associated Diagnosis Comments US HEAD NECK SOFT TISSUE RAD - Routine (most inpatients and all outpatients) 12/05/2023 1:49 PM FAST BRIM POUNCER Malignant Neoplasm Of Thyroid Papillary (HCC) LIPID PANEL, S Routine 12/05/2023 12:19 PM FAST BRIM POUNCER Cardiomyopathy Ischemic T4 (THYROXINE), FREE, S Routine 12/05/2023 12:19 PM FAST BRIM POUNCER Malignant Neoplasm Of Thyroid Papillary (HCC) THYROGLOBULIN, TM, S Routine 12/05/2023 12:19 PM FAST BRIM POUNCER Malignant Neoplasm Of Thyroid Papillary (HCC) THYROID-STIMULATING HORMONE-SENSITIVE (S-TSH) Routine 12/05/2023 12:19 PM FAST BRIM POUNCER Malignant Neoplasm Of Thyroid Papillary (HCC) CAR CARDIAC DEVICE INTERROGATION Routine 12/05/2023 11:10 AM FAST BRIM POUNCER Encounter For Checking And Testing Of Cardiac Pacemaker Pulse Generator Battery CAR CARDIAC DEVICE INTERROGATION Routine 12/02/2023 3:21 PM FAST BRIM POUNCER Encounter For Checking And Testing Of Cardiac [...] is reporting no episodes. I also contacted [email or web address] to evaluate rhythm as well. The consensus was likely slow Atrialflutter. I sent a message to Dr. Slaughter, whom he saw on 11-15-2023. VENTRICULAR ARRHYTHMIAS: No episodes. PVC [place]: 99.6/hr BATTERY LONGEVITY: Expected battery longevity trends [...] GLUCOSE POCT, B Routine 11/30/2023 12:06 PM FAST BRIM POUNCER GLUCOSE POCT, B Routine 11/30/2023 8:15 AM FAST BRIM POUNCER BASIC METABOLIC PANEL, S/P Routine 11/30/2023 8:14 AM FAST BRIM POUNCER CBC WITHOUT DIFFERENTIAL, B Routine 11/30/2023 8:14 AM FAST BRIM POUNCER GLUCOSE POCT, B Routine 11/29/2023 9:47 PM FAST BRIM POUNCER GLUCOSE POCT, B Routine 11/29/2023 4:27 PM FAST BRIM POUNCER THORACIC ULTRASOUND Routine 11/29/2023 1:13 PM FAST BRIM POUNCER GLUCOSE POCT, B Routine 11/29/2023 11:47 AM FAST BRIM POUNCER GLUCOSE POCT, B Routine 11/29/2023 8:56 AM FAST BRIM POUNCER ADULT OXYGEN THERAPY Routine 11/29/2023 8:02 AM FAST BRIM POUNCER BASIC METABOLIC PANEL, S/P Routine 11/29/2023 4:48 AM FAST BRIM POUNCER CBC WITHOUT DIFFERENTIAL, B Routine 11/29/2023 4:48 AM FAST BRIM POUNCER GRAM STAIN Routine 11/29/2023 3:18 AM FAST BRIM POUNCER BACTERIA / DANNA CULTURE, BLOOD STAT 11/29/2023 12:31 AM FAST BRIM POUNCER BACTERIA / DANNA CULTURE, BLOOD STAT 11/29/2023 12:24 AM FAST BRIM POUNCER STREPTOCOCCUS PNEUMONIAE AG, U Routine 11/29/2023 12:08 AM FAST BRIM POUNCER LEGIONELLA AG, U Routine 11/29/2023 12:08 AM FAST BRIM POUNCER TROPONIN T, 2H/6H, 5TH GEN, P Timed 11/28/2023 11:33 PM FAST BRIM POUNCER ADULT OXYGEN THERAPY Routine 11/28/2023 11:18 PM FAST BRIM POUNCER ADULT OXYGEN THERAPY Routine 11/28/2023 11:18 PM FAST BRIM POUNCER ADULT OXYGEN THERAPY Routine 11/28/2023 11:18 PM FAST BRIM POUNCER CRITICAL CARE Routine 11/28/2023 10:57 PM FAST BRIM POUNCER NON-INVASIVE VENTILATION Routine 11/28/2023 10:44 PM FAST BRIM POUNCER NON-INVASIVE VENTILATION Routine 11/28/2023 10:44 PM FAST BRIM POUNCER NON-INVASIVE VENTILATION Routine 11/28/2023 10:44 PM FAST BRIM POUNCER NON-INVASIVE VENTILATION Routine 11/28/2023 10:44 PM FAST BRIM POUNCER NON-INVASIVE VENTILATION Routine 11/28/2023 10:44 PM FAST BRIM POUNCER MRSA/STAPHYLOCOCCUS AUREUS, NASAL, BY PCR Routine 11/28/2023 10:17 PM FAST BRIM POUNCER LACTATE, POCT, B STAT 11/28/2023 10:[address] CHEST ANGIOGRAM AND PULMONARY ARTERIES WITH IV CONTRAST RAD - Semiurgent (Fast; most ED patients; some inpatients) 11/28/2023 10:01 PM FAST BRIM POUNCER DX CHEST PORTABLE 1 VIEW RAD - Semiurgent (Fast; most ED patients; some inpatients) 11/28/2023 8:56 PM FAST BRIM POUNCER VBG & LYTES CG8+, POCT, B STAT 11/28/2023 8:50 PM FAST BRIM POUNCER NT-PRO B-TYPE NATRIURETIC PEPTIDE (BNP), S STAT 11/28/2023 8:50 PM FAST BRIM POUNCER TROPONIN T, BASELINE, 5TH GEN, P STAT 11/28/2023 8:50 PM FAST BRIM POUNCER BASIC METABOLIC PANEL, S/P STAT 11/28/2023 8:50 PM FAST BRIM POUNCER D-DIMER, P STAT 11/28/2023 8:50 PM FAST BRIM POUNCER CBC WITH DIFFERENTIAL, B STAT 11/28/2023 8:50 PM FAST BRIM POUNCER ECG STAT 11/28/2023 8:47 PM FAST BRIM POUNCER IFLU A, B, SARS COV-2, PCR, RAPID,V STAT 11/28/2023 8:47 PM FAST BRIM POUNCER FOCUSED CARDIAC ULTRASOUND Routine 11/28/2023 8:45 PM FAST BRIM POUNCER CAR CARDIAC DEVICE INTERROGATION Routine 11/28/2023 8:57 AM FAST BRIM POUNCER Encounter For Checking And Testing Of Cardiac Pacemaker Pulse Generator Battery CAR CARDIAC DEVICE INTERROGATION Routine 11/02/2023 10:11 AM FAST BRIM POUNCER BASIC METABOLIC PANEL, S/P Routine 11/02/2023 9:39 AM FAST BRIM POUNCER CBC WITHOUT DIFFERENTIAL, B Routine 11/02/2023 9:39 AM FAST BRIM POUNCER ECG Routine 11/02/2023 4:42 AM FAST BRIM POUNCER DX CHEST AP OR PA AND LATERAL 2 VIEWS RAD - Routine (most inpatients and all outpatients) 11/01/2023 9:18 PM FAST BRIM POUNCER ADULT OXYGEN THERAPY Routine 11/01/2023 5:55 PM FAST BRIM POUNCER ADULT OXYGEN THERAPY Routine 11/01/2023 5:55 PM FAST BRIM POUNCER HEART RHYTHM PROCEDURE Routine 11/01/2023 5:12 PM FAST BRIM POUNCER Block Atrioventricular Second Degree CAR CARDIAC DEVICE INTERROGATION Routine 11/01/2023 4:07 PM FAST BRIM POUNCER SODIUM, RANDOM, U Routine 11/01/2023 10:44 AM FAST BRIM POUNCER OSMOLALITY, U Routine 11/01/2023 10:44 AM FAST BRIM POUNCER ADULT OXYGEN THERAPY Routine 11/01/2023 8:01 AM FAST BRIM POUNCER MAGNESIUM, S Routine 11/01/2023 6:35 AM FAST BRIM POUNCER BASIC METABOLIC PANEL, S/P Routine 11/01/2023 6:35 AM FAST BRIM POUNCER CBC WITH DIFFERENTIAL, B Routine 11/01/2023 6:35 AM FAST BRIM POUNCER OSMOLALITY, S Routine 11/01/2023 6:35 AM FAST BRIM POUNCER ADULT OXYGEN THERAPY Routine 10/31/2023 8:01 PM FAST BRIM POUNCER DIPSTICK, U Routine 10/31/2023 12:22 PM FAST BRIM POUNCER MICROSCOPIC AUTOMATED Routine 10/31/2023 12:22 PM FAST BRIM POUNCER OSMOLALITY, U Routine 10/31/2023 12:22 PM FAST BRIM POUNCER PH, U Routine 10/31/2023 12:22 PM FAST BRIM POUNCER URINALYSIS WITH MICROSCOPIC Routine 10/31/2023 12:22 PM FAST BRIM POUNCER (TTE) 2D ECHO DOPPLER COLOR Routine 10/31/2023 9:42 AM FAST BRIM POUNCER TROPONIN T, 5TH GEN, P Routine 10/31/2023 8:14 AM FAST BRIM POUNCER THYROID FUNCTION CASCADE, S Routine 10/31/2023 8:14 AM FAST BRIM POUNCER HEMOGLOBIN A1C, B Routine 10/31/2023 8:14 AM FAST BRIM POUNCER MAGNESIUM, S Routine 10/31/2023 8:14 AM FAST BRIM POUNCER COMPREHENSIVE METABOLIC PANEL, S/P Routine 10/31/2023 8:14 AM FAST BRIM POUNCER CBC WITHOUT DIFFERENTIAL, B Routine 10/31/2023 8:14 AM FAST BRIM POUNCER ADULT OXYGEN THERAPY Routine 10/31/2023 8:01 AM FAST BRIM POUNCER ADULT OXYGEN THERAPY Routine 10/31/2023 3:46 AM FAST BRIM POUNCER ADULT OXYGEN THERAPY Routine 10/31/2023 3:46 AM FAST BRIM POUNCER TROPONIN T, 5TH GEN, P STAT 10/31/2023 12:38 AM FAST BRIM POUNCER D-DIMER, P STAT 10/31/2023 12:38 AM FAST BRIM POUNCER DX CHEST PORTABLE 1 VIEW RAD - Semiurgent (Fast; most ED patients; some inpatients) 10/31/2023 12:11 AM FAST BRIM POUNCER NT-PRO B-TYPE NATRIURETIC PEPTIDE (BNP), S STAT 10/30/2023 11:48 PM FAST BRIM POUNCER BASIC METABOLIC PANEL, S/P STAT 10/30/2023 11:48 PM FAST BRIM POUNCER CBC WITH DIFFERENTIAL, B STAT 10/30/2023 11:48 PM FAST BRIM POUNCER ECG STAT 10/30/2023 11:43 PM FAST BRIM POUNCER URINALYSIS WITH MICROSCOPIC Routine 10/27/2023 1:40 PM FAST BRIM POUNCER Dysuria BACTERIAL CULTURE, AEROBIC + SUSC, URINE Routine 10/27/2023 1:40 PM FAST BRIM POUNCER Dysuria NT-PRO B-TYPE NATRIURETIC PEPTIDE (BNP), S STAT 10/21/2023 8:45 AM FAST BRIM POUNCER BASIC METABOLIC PANEL, S/P STAT 10/21/2023 8:45 AM FAST BRIM POUNCER CBC WITH DIFFERENTIAL, B STAT 10/21/2023 8:45 AM FAST BRIM POUNCER DX CHEST AP OR PA AND LATERAL 2 VIEWS RAD - Semiurgent (Fast; most ED patients; some inpatients) 10/21/2023 8:44 AM FAST BRIM POUNCER ECG STAT 10/21/2023 8:35 AM FAST BRIM POUNCER UROLOGY IMAGE EXAM Routine 10/03/2023 1:56 PM FAST BRIM POUNCER WA US TRANSRECTAL Routine 10/03/2023 1:30 PM FAST BRIM POUNCER Nodule Prostate Retention Urinary URO UROFLOW Routine 10/03/2023 11:00 AM FAST BRIM POUNCER Nodule Prostate Retention Urinary WA CYSTOURETHROSCOPY Routine 10/03/2023 9:30 AM FAST BRIM POUNCER Nodule Prostate Retention Urinary DIPSTICK, U Routine 10/03/2023 7:17 AM FAST BRIM POUNCER PH, U Routine 10/03/2023 7:17 AM FAST BRIM POUNCER OSMOLALITY, U Routine 10/03/2023 7:17 AM FAST BRIM POUNCER MICROSCOPIC AUTOMATED Routine 10/03/2023 7:17 AM FAST [employer] URINALYSIS WITH MICROSCOPIC Routine 10/03/2023 7:17 AM FAST [employer] P[employer] Nodule Prostate Retention Urinary BACTERIAL CULTURE, AEROBIC + SUSC, URINE Routine 10/03/2023 7:17 AM FAST [employer] P[employer] Nodule Prostate Retention Urinary DIPSTICK, U Routine 09/08/2023 10:49 AM CDT WA OSMOLALITY ASSAY URINE Routine 09/08/2023 10:49 AM CDT PH, RANDOM, U Routine 09/08/2023 10:49 AM CDT MICROSCOPIC MANUAL Routine 09/08/2023 10:49 AM CDT URINALYSIS WITH MICROSCOPIC Routine 09/08/2023 10:49 AM CDT Nodule Prostate PROSTATE-SPECIFIC AG (PSA) DIAGNOSTIC, S Routine 09/08/2023 10:43 AM CDT Nodule Prostate from Last 3 Months Results * US Head Neck Soft Tissue (12/05/2023 1:49 PM FAST BRIM POUNCER) Anatomical Region Laterality Modality Head and Neck, Ultrasound RS T LOS, Ultrasound ARZ LOS, Ultrasound FLA LOS N/A Ultrasound Impressions 12/05/2023 2:06 PM FAST BRIM POUNCER 1. Slight enlargement of two left thyroid bed nodules, consistent with recurrent disease. 2. A tiny hypoechoic nodule in the right thyroid bed is of doubtful significance; attention on follow-up. 3. No cervical lymphadenopathy. Narrative 12/05/2023 2:06 PM FAST BRIM POUNCER EXAM: US HEAD NECK SOFT TISSUE COMPARISON: [...] PROCEDURES * Lipid Panel (12/05/2023 12:19 PM FAST BRIM POUNCER) Triglycerides 89 mg/dL 12/05/2023 1:38 PM FAST BRIM POUNCER DTL Comment: ----REFERENCE VALUE---- Normal: <150 mg/dL Borderline High: 150-199 mg/dL High: 200-499 mg/dL Very High: > or =500 mg/dL Cholesterol, Total 162 mg/dL 2023 1:38 PM FAST BRIM POUNCER DTL Comment: ----REFERENCE VALUE---- Desirable: < 200 mg/dL Borderline High: 200 - 239 mg/dL High: > or = 240 mg/dL Cholesterol, LDL, Calculated 82 mg/dL 12/05/2023 1:38 PM FAST BRIM POUNCER DTL Comment: ----REFERENCE VALUE---- Desirable: <100 mg/dL Above Desirable: 100-129 mg/dL Borderline High: 130-159 mg/dL High: 160-189 mg/dL Very High: >=190 mg/dL ----ADDITIONAL INFORMATION---- LDL cholesterol calculated using the Rodriguez/NIH equation. Cholesterol, HDL, S 64 >=40 mg/dL 12/05/2023 1:38 PM FAST BRIM POUNCER DTL Cholesterol, Non-HDL, Calculated 98 mg/dL 12/05/2023 1:38 PM FAST BRIM POUNCER DTL Comment: ----REFERENCE VALUE---- Desirable: <130 mg/dL Above Desirable: 130-159 mg/dL Borderline High: 160-189 mg/dL High: 190-219 mg/dL Very High: > or =220 mg/dL Fasting (8 HR or more) No 12/05/2023 1:03 PM FAST BRIM POUNCER DTL Blood (Blood, Venous) 12/05/2023 12:19 PM FAST BRIM POUNCER 12/05/2023 1:03 PM FAST BRIM POUNCER Eugene Slaughter M.D., Ph.D. LAB BLOO D ADD-ON [facility] [address] [place] [address], [facility] [address] [place] [address] * (ABNORMAL) Thyroglobulin, Tumor Marker (12/05/2023 12:19 PM FAST BRIM POUNCER) Pathologist [facility] [place] Thyroglobulin Antibody, S 7.5(H) <1.8 IU/mL 12/05/2023 7:02 PM FAST BRIM POUNCER SDSC Thyroglobulin, Tumor Marker, S 0.4(H) ng/mL 12/05/2023 6:57 PM FAST BRIM POUNCER SDS Comment: ----REFERENCE VALUE---- Athyrotic <0.1 Intact Thyroid <=33 Thyroglobulin Interpretation SEE COMMENT 12/05/2023 7:02 PM FAST BRIM POUNCER SDS Comment: Quantitation of thyroglobulin may be [...] testing methods are immunoenzymatic assays manufactured by [employer] and performed on the 500px DXI 800. Values obtained from different assay methods or kits may be different and cannot be used interchangeably. The results cannot be interpreted as absolute evidence for the presence or absence of malignant disease. Blood (Blood, Venous) 12/05/2023 12:19 PM FAST BRIM POUNCER 12/05/2023 5:56 PM FAST BRIM POUNCER Loni Wu M.D. LAB BLOOD ADD-ON Performing Organization Address City/[facility]/ZIP Co de Phone Number [facility] [address] [place] [address] Formerly [facility] [address] [place] [address] * S-TSH (Thyroid-Stimulating Hormone - Sensitive) (12/05/2023 12:19 PM FAST BRIM POUNCER) Pathologist [facility] [place] TSH, Sensitive 0.5 0.3 - 4.2 mIU/L 12/05/2023 1:38 PM FAST BRIM POUNCER DTL Blood (Blood, Venous) 12/05/2023 12:19 PM FAST BRIM POUNCER 12/05/2023 1:03 PM FAST BRIM POUNCER Loni Wu M.D. LAB BLOOD ADD-ON Performing Organization Address [facility]/ZIP Co de Phone Number [facility] [address] [place] [address] * (ABNORMAL) T4 (Thyroxine), Free (12/05/2023 12:19 PM FAST BRIM POUNCER) T4 (Thyroxine), Free, S 1.8(H) 0.9 - 1.7 ng/dL 12/05/2023 1:38 PM FAST BRIM POUNCER DTL Blood (Blood, Venous) 12/05/2023 12:19 PM FAST BRIM POUNCER 12/05/2023 1:03 PM FAST BRIM POUNCER Loni Wu M.D. LAB BLOOD ADD-ON Performing Organization Address City/[facility]/ZIP Co de Phone Number [facility] [address] [place] [address], [facility] DTL [facility] [address] * CARDIOVASCULAR IMPLANTABLE ELECTRONIC DEVICE - NO CHARGE (12/05/2023 11:10 AM FAST BRIM POUNCER) Only the most recent of4 resultswithin the time period is included. Date Time Interrogation Session [id number] [facility] Implantable Pulse Generator Furniture Servicer Medtronic [facility] Implantable Pulse Generator Model [id number] [place] XT DR MRI [facility] Implantable Pulse Generator Serial Number [id number] [facility] Type Interrogation Session Remote [facility] Clinic Name [facility] Implantable Pulse Generator Type Pacemaker [facility] Implantable Pulse Generator Implant Date 20231101 [facility] Implantable Lead Furniture Servicer [employer] [facility] Implantable Lead Model 4076 CapsureFix Novus MRI SureScan [facility] Implantable Lead Serial Number [id number] [facility] Implantable Lead Implant Date 20231101 [facility] Implantable Lead Polarity Type Bipolar Lead [facility] Implantable Lead Location Detail 1 UNKNOWN [facility] Implantable Lead Special Function Lead length: 52 cm [facility] Implantable Lead Location Right Atrium [facility] Implantable Lead Furniture Servicer [employer] [facility] Implantable Lead Model 4076 CapsureFix Novus MRI SureScan [facility] Implantable Lead Serial Number [id number] [facility] Implantable Lead Implant Date 20231101 [facility] Implantable Lead Polarity Type Bipolar Lead [facility] Implantable Lead Location Detail 1 UNKNOWN [facility] Implantable Lead Special Function Lead length: 58 cm [facility] Implantable Lead Location Right Ventricle [facility] Сергей Setting Mode (NBG Code) DDD [facility] Сергей Setting Lower Rate Limit 60 {beats}/ min [facility] Сергей Setting Maximum Tracking Rate 120 {beats}/ min [facility] Сергей Setting Maximum Sensor Rate 120 {beats}/ min [facility] Сергей Setting KATHY Delay Low 150 ms [facility] Сергей Setting PAV Delay Low 180 ms [facility] Сергйе Setting AT Mode Switch Rate 171 {beats}/ min [facility] Lead Channel Setting Sensing Polarity Bipolar [facility] Lead Channel Setting Sensing Anode Location Right At[facility] Lead Channel Setting Sensing Anode Terminal Ring [facility] Lead Channel Setting Sensing Cathode Location Right At[facility] Lead Channel Setting Sensing Cathode Terminal Tip [facility] Lead Channel Setting Sensing Sensitivity 0.3 mV [facility] Lead Channel Setting Sensing Polarity Bipolar [facility] Lead Channel Setting Sensing Anode Location Right Ventricle [facility] Lead Channel Setting Sensing Anode Terminal Ring [facility] Lead Channel Setting Sensing Cathode Location Right Ventricle [facility] Lead Channel Setting Sensing Cathode Terminal Tip [facility] Lead Channel Setting Sensing Sensitivity 0.9 mV [facility] Lead Channel Setting Pacing Polarity Bipolar [facility] Lead Channel Setting Pacing Anode Location Right At[facility] Lead Channel Setting Pacing Anode Terminal Ring [facility] Lead Channel Setting Sensing Cathode Location Right Atrium [facility] Lead Channel Setting Sensing Cathode Terminal Tip [facility] Lead Channel Setting Pacing Pulse Width 0.4 ms [facility] Lead Channel Setting Pacing Amplitude 3.5 V [facility] Lead Channel Setting Pacing Capture Mode Adaptive [facility] Lead Channel Setting Pacing Polarity Bipolar [facility] Lead Channel Setting Pacing Anode Location Right Ventricle [facility] Lead Channel Setting Pacing Anode Terminal Ring [facility] Lead Channel Setting Sensing Cathode Location Right Ventricle [facility] Lead Channel Setting Sensing Cathode Terminal Tip [facility] Lead Channel Setting Pacing Pulse Width 0.4 ms [facility] Lead Channel Setting Pacing Amplitude 3.5 V [facility] Lead Channel Setting Pacing Capture Mode Adaptive [facility] Zone Setting Type Category VF [facility] Zone Setting Type Category VT [facility] Zone Setting Type Category VT [facility] Zone Setting Type Category VT [facility] Zone Setting Detection Interval 360 ms [facility] Zone Setting Type Category ATRIAL_FIBRILLATI ON [facility] Zone Setting Type Category AT/AF [facility] Zone Setting Detection Interval 350 ms [facility] Lead Channel Impedance Value 513 ohm [facility] Lead Channel Impedance Value 323 ohm [facility] Lead Channel Sensing Intrinsic Amplitude 3 mV [facility] Lead Channel Sensing Intrinsic Amplitude 3 mV [facility] Lead Channel Pacing Threshold Amplitude 0.75 V [facility] Lead Channel Pacing Threshold Pulse Width 0.4 ms [facility] Lead Channel Impedance Value 475 ohm [facility] Lead Channel Impedance Value 380 ohm [facility] Lead Channel Sensing Intrinsic Amplitude 10.75 mV [facility] Lead Channel Sensing Intrinsic Amplitude 10.75 mV [facility] Lead Channel Pacing Threshold Amplitude 0.5 V [facility] Lead Channel Pacing Threshold Pulse Width 0.4 ms [facility] Battery Date Time of Measurements [id number] [facility] Battery COLD ROLLING SUPERVISOR Trigger 2.625 [facility] Battery Remaining Longevity 137 mo [facility] Battery Voltage 3.20 V [facility] Сергей Statistic Date Time Start [id number] [facility] Сергей Statistic Date Time End [id number] [facility]ер[facility] Statistic RA Percent Paced 6.56 % [facility] Сергей Statistic RV Percent Paced 93.83 % [facility] Сергей Statistic AP RN OTOLARYNGOLOGY Percent 4.84 % [facility] Сергей Statistic RN OTOLARYNGOLOGY Percent 88.99 % [facility] Сергей Statistic AP VS Percent 0.02 % [facility] Сергей Statistic VS Percent 6.15 % [facility] Atrial Tachy Statistic Date Time Start [facility] Atrial Tachy Statistic Date Time End [facility] Atrial Tachy Statistic AT/AF [place] Percent 0 % [facility] Episode [...] SYSTEM Episode Statistic Recent Date Time Start [id number] [facility] Episode Statistic Recent Date Time End [facility] Episode Statistic Recent Date Time Start [id number] [facility] Episode Statistic Recent Date Time End [id number] [facility] Episode Statistic Recent Date Time Start [id number] [facility] Episode Statistic Recent Date Time End [facility] Episode Statistic Recent Date Time Start [id number] [facility] Episode Statistic Recent Date Time End [id number] [facility] Episode Statistic Recent Date Time Start [id number] [facility] Episode Statistic Recent Date Time End [id number] [facility] Episode Statistic Total Count [...] SYSTEM Episode Statistic Total Date Time Start [id number] [facility] Episode Statistic Total Date Time End [id number] [facility] Episode Statistic Total Date Time Start [id number] [facility] Episode Statistic Total Date Time End [id number] [facility] Episode Statistic Total Date Time Start [id number] [facility] Episode Statistic Total Date Time End [id number] [facility] Episode Statistic Total Date Time Start [id number] [facility] Episode Statistic Total Date Time End [facility] Episode Statistic Total Date Time Start [id number] [facility] Episode Statistic Total Date Time End [id number] [facility] Anatomical Region Laterality Modality Other 12/05/2023 10:5 0 AM FAST BRIM POUNCER Narrative 12/06/2023 7:42 AM FAST BRIM POUNCER PURPOSE OF VISIT: ??Physician requested patient initiated remote. PRESENTING EGM: ??-RN OTOLARYNGOLOGY at 80 bpm. ATRIAL ARRHYTHMIAS: ??None recorded. ?Atrial fibrillation burden: 0% VENTRICULAR ARRHYTHMIAS: ??None recorded. ?PVC [place]: 76/hr BATTERY LONGEVITY: Expected battery longevity trends reviewed and are stable and consistent with device settings and use. SUMMARY: All device function appears normal. I have updated Dr. Slauhgter with these results. FOLLOW UP: Next routine follow-up will be in clinic on 02-02-2024. DEVICE RN: Renetta Tyler RN Provider statement: This patient underwent device interrogation. I agree that the device interrogation was medically indicated to provide appropriate care and continue routine device interrogations as indicated. Bautista Moore M.D., M.P.H. CV IMPLANTAB LE CARDIAC DEVICE * Glucose, POCT (11/30/2023 12:06 PM FAST BRIM POUNCER) Only the most recent of6 resultswithin the time period is included. Glucose, POCT, B 96 70 - 140 mg/dL 11/30/2023 12:08 PM FAST BRIM POUNCER PCLX Site Capillary 11/30/2023 12:08 PM FAST BRIM POUNCER PCLX Last Intake 3-4 hours 11/30/2023 12:08 PM FAST BRIM POUNCER PCLX Blood 11/30/2023 12:0 6 PM FAST BRIM POUNCER 11/30/2023 12:08 PM FAST BRIM POUNCER Unknown Provider LAB POCT ORDERABLES- MANUAL POC [facility] [address] [place] [address], [facility] PCLX [facility] POC [address] [place] [address] * (ABNORMAL) CBC without Differential (11/30/2023 8:14 AM FAST BRIM POUNCER) Only the most recent of4 resultswithin the time period is included. Hemoglobin 11.7(L) 13.2 - 16.6 g/dL 11/30/2023 9:26 AM FAST BRIM POUNCER DTL Hematocrit 34.6(L) 38.3 - 48.6 % 11/30/2023 9:26 AM FAST BRIM POUNCER DTL Erythrocytes 3.78(L) 4.35 - 5.65 x10(12)/L 11/30/2023 9:26 AM FAST BRIM POUNCER DTL MCV 91.5 78.2 - 97.9 fL 11/30/2023 9:26 AM FAST BRIM POUNCER DTL RBC Distrib Width 14.3 11.8 - 14.5 % 11/30/2023 9:26 AM FAST BRIM POUNCER DTL Platelet Count 189 135 - 317 x10(9)/L 11/30/2023 9:26 AM FAST BRIM POUNCER DTL Leukocytes 9.3 3.4 - 9.6 x10(9)/L 11/30/2023 9:26 AM FAST BRIM POUNCER DTL Blood (Blood, Venous) 11/30/2023 8:14 AM FAST BRIM POUNCER 11/30/2023 9:08 AM FAST BRIM POUNCER Zeinab Alba M.D. LAB BLOOD ADD -ON [facility] [address] [place] [address], [facility] [address] [place] [address] * (ABNORMAL) Basic Metabolic Panel (11/30/2023 8:14 AM FAST BRIM POUNCER) Only the most recent of7 resultswithin the time period is included. Potassium, S 4.0 3.6 - 5.2 mmol/L 11/30/2023 9:37 AM FAST BRIM POUNCER DTL Sodium, S 134(L) 135 - 145 mmol/L 11/30/2023 9:37 AM FAST BRIM POUNCER DTL Chloride, S 99 98 - 107 mmol/L 11/30/2023 9:37 AM FAST BRIM POUNCER DTL Bicarbonate, S 24 22 - 29 mmol/L 11/30/2023 9:37 AM FAST BRIM POUNCER DTL Anion Gap 11 7 - 15 11/30/2023 9:37 AM FAST BRIM POUNCER DTL BUN (Blood Urea Nitrogen), S 16 8 - 24 mg/dL 11/30/2023 9:37 AM FAST BRIM POUNCER DTL Creatinine 0.78 0.74 - 1.35 mg/dL 11/30/2023 9:37 AM FAST BRIM POUNCER DTL Estimated GFR (eGFR) >90 >=60 mL/min/BSA 11/30/2023 9:37 AM FAST BRIM POUNCER DTL Comment: Estimated GFR calculated using the 2020 CKD_EPI creatinine equation. Calcium, Total, S 8.6(L) 8.8 - 10.2 mg/dL 11/30/2023 9:37 AM FAST BRIM POUNCER DTL Glucose, S 100 70 - 140 mg/dL 11/30/2023 9:37 AM FAST BRIM POUNCER DTL Blood (Blood, Venous) 11/30/2023 8:14 AM FAST BRIM POUNCER 11/30/2023 9:21 AM FAST BRIM POUNCER Zeinab Alba M.D. LAB BLOOD ADD -ON [facility] [address] [place] [address], [facility] [address] [place] [address] * POCUS Thoracic (11/29/2023 1:13 PM FAST BRIM POUNCER) 11/28/2023 8:45 PM FAST BRIM POUNCER Narrative QPATH - 11/28/2023 8:45 PM FAST BRIM POUNCER Lung ?[id number]-[id number] ULTRASOUND - EMERGENCY MEDICINE - [facility]: ?Exam Type: ??Diagnostic ?Indication(s) for Exam: ?Dyspnea, [...] Note Hector Barragan M.D. - 11/29/2023 Lung [id number] ULTRASOUND - EMERGENCY MEDICINE - [facility]: Exam Type: Diagnostic Indication(s) for Exam: Dyspnea, [...] PROCEDURE/MINOR SURG ICAL ORDERABLES Performing Organization Address City/[facility]/ZIP Co de Phone Number QPATH * Gram Stain (11/29/2023 3:18 AM FAST BRIM POUNCER) Gram Stain Microscopic examination shows many epithelial cells indicating oropharyngeal contamination-nestor terial culture not performed. 11/29/2023 1:24 PM FAST BRIM POUNCER DTL Sputum 11/29/2023 3:18 AM FAST BRIM POUNCER 11/29/2023 5:11 AM FAST BRIM POUNCER Comment:Specimen Source Site : Sputum Farhat Bhagat M.D. LAB MICROBIOLOGY - GENERAL ORDERABLES Performing Organization Address City/[facility] Co de Phone Number [facility] [address] [place] [address], [facility] [address] [place] [address] * Bacteria / Danna Culture, Blood #2 (11/29/2023 12:31 AM FAST BRIM POUNCER) Only the most recent of2 resultswithin the time period is included. Bacteria/April da Culture, Blood No growth after 5 days of incubation. 12/04/2023 1:02 AM FAST BRIM POUNCER DTL Blood (Blood, Peripheral Draw) 11/29/2023 12:31 AM FAST BRIM POUNCER 11/29/2023 12:51 AM FAST BRIM POUNCER Comment:Specimen Source Site : Blood Farhat Bhagat M.D. LAB MICROBIOLOGY - GENERAL ORDERABLES Performing Organization Address [facility] Co de Phone Number [facility] [address] [place] [address], [place] DTL [facility] [address] [place] [address] * Streptococcus pneumoniae Antigen, Urine (11/29/2023 12:08 AM FAST BRIM POUNCER) Streptococcus pneumoniae Ag, U Negative Negative 11/29/2023 2:50 PM FAST BRIM POUNCER [facility] Comment: Negative for pneumococcal pneumonia, suggesting no current or recent infection. ??Infection due to S. pneumoniae cannot be ruled out since the antigen present in the sample may be below detection limit of the test. ----ADDITIONAL INFORMATION---- This assay was performed using the FDA-cleared BinaxNOW Streptococcus pneumoniae Antigen test, a rapid immunochromatographic assay. Urine (Urine, Indwelling Catheter) 11/29/2023 12:08 AM FAST BRIM POUNCER 11/29/2023 8:16 AM FAST BRIM POUNCER Farhat Bhagat M.D. LAB MICROBIOLOGY - GENERAL ORDERABLES Performing Organization Address [facility] Co de Phone Number [facility] [address] [place] [address] [facility] [address] [place] [address] [place] [address] * Legionella Antigen, Urine (11/29/2023 12:08 AM FAST BRIM POUNCER) Legionella Ag, U Negative Negative 11/29/19 2:56 PM FAST BRIM POUNCER [facility] Comment: Negative for L. pneumophila serogroup 1 [...] Urine (Urine, Indwelling Catheter) 11/29/2023 12:08 AM FAST BRIM POUNCER 11/29/2023 8:16 AM FAST BRIM POUNCER Farhat Bhagat M.D. LAB MICROBIOLOGY - GENERAL ORDERABLES [facility] [address] [place] [address] [facility] [address] [place] [address] [place] [address] * (ABNORMAL) Troponin T, 2h/6h, 5th Gen (11/28/2023 11:33 PM FAST BRIM POUNCER) Troponin T, 2 hr, 5th gen 19(H) <=15 ng/L 11/29/2023 12:06 AM FAST BRIM POUNCER [facility] 2H Delta 4 ng/L 11/29/2023 12:06 AM FAST BRIM POUNCER [facility] 2H Delta Interp Indeterminate 11/29/2023 12:06 AM FAST BRIM POUNCER [facility] Comment:Indeterminate delta, additional sample suggested Troponin T, 6 hr, 5th gen 16(H) <=15 ng/L 11/29/2023 5:31 AM FAST BRIM POUNCER [facility] 6H Delta 1 ng/L 11/29/2023 5:31 AM FAST BRIM POUNCER [facility] 6H Delta Interp Not Changing 11/29/2023 5:31 AM FAST BRIM POUNCER [facility] Blood (Blood, Venous) 11/28/2023 11:33 PM FAST BRIM POUNCER 11/28/2023 11:37 PM FAST BRIM POUNCER Narrative [facility] - 11/29/2023 5:31 AM FAST BRIM POUNCER Specimen Information: Specimen ID: [id number] Specimen Type: Blood Specimen Collection Start Date: 11/28/2023 11:33 PM Specimen Received Date: 11/28/2023 11:37 PM Specimen ID: [id number] Specimen Type: Blood Specimen Collection Start Date: 11/29/2023 ??4:48 AM Specimen Received Date: 11/29/2023 ??4:54 AM Mesfin Michael M.D. LAB BLOO D TROPONIN [facility] [address] [place] [address], [facility] STMA [facility] [address] [place] [address] * Critical Care (11/28/2023 10:57 PM FAST BRIM POUNCER) Narrative Hector Barragan M.D. - 11/28/2023 10:57 PM FAST BRIM POUNCER Hector Barragan M.D. ? 11/29/2023 11:53 AM [...] / MRSA, Nasal, PCR (11/28/2023 10:17 PM FAST BRIM POUNCER) [facility] Staphylococcus aureus, PCR Negative Negative 11/29/2023 12:22 AM FAST BRIM POUNCER DTL MRSA, PCR Negative Negative 11/29/2023 12:22 AM FAST BRIM POUNCER DTL Swab (Nares) 11/28/2023 10:1 7 PM FAST BRIM POUNCER 11/28/2023 11:00 PM FAST BRIM POUNCER Macy Toledo M.D. LAB MICROBIOLOGY - G ENERAL ORDERABLES [facility] [address] [place] [address], [place] [facility] [address] [place] [address] * Lactate, POCT (11/28/2023 10:07 PM FAST BRIM POUNCER) Pathologist [facility] Lactate, POCT 2.17 0.50 - 2.20 mmol/L 11/28/2023 10:39 PM FAST BRIM POUNCER PCLX Blood (Blood, Venous) 11/28/2023 10:07 PM FAST BRIM POUNCER 11/28/2023 10:07 PM FAST BRIM POUNCER Narrative Authorizing Provider Result Manuel iMchael M.D. LAB POCT ORDERABLES - DEVICE POC [facility] [address] [place] [address], [facility] PCLX [facility] POC [address] [place] [address] * CT Chest Angiogram and Pulmonary Arteries with IV Contrast (11/28/2023 10:01 PM FAST BRIM POUNCER) Anatomical Region Laterality Modality Chest, Cardiovascular RST LO S, Thoracic ARZ LOS, Thoracic FLA LOS N/A Computed Tomography, Compute d Tomography 11/28/2023 9:58 PM FAST BRIM POUNCER Impressions 11/29/2023 12:40 AM FAST BRIM POUNCER 1. No pulmonary embolism. 2. Bilateral probably pneumonia and/or pulmonary edema. Narrative 11/29/2023 12:40 AM FAST BRIM POUNCER EXAM: ??CT CHEST ANGIOGRAM AND PULMONARY ARTERIES [...] Chest Portable 1 View (11/28/2023 8:56 PM FAST BRIM POUNCER) Only the most recent of2 resultswithin the time period is included. Anatomical Region Laterality Modality Chest, Thoracic RST LOS, Tho racic ARZ LOS, Thoracic FLA LOS N/A Digital Radiography Impressions 11/28/2023 9:36 PM FAST BRIM POUNCER Since 11/01/2023, new interstitial opacities in the mid to lower lungs, right greater than left. Groundglass and/or consolidative opacities in the right mid and lower lung. No pneumothorax. Right costophrenic angle is not completely included on the exam. Hiatal hernia. Dual lead pacemaker. Demineralization. Narrative 11/28/2023 9:36 PM FAST BRIM POUNCER EXAM: ??DX CHEST PORTABLE 1 VIEW Procedure [...] and Electrolytes CG8+, POCT (11/28/2023 8:50 PM FAST BRIM POUNCER) [facility] Sample Site, POCT Venstick 11/28/2023 9:54 PM FAST BRIM POUNCER PCLX Comment: ----ADDITIONAL INFORMATION---- Performed at the Point of Care pH, Venous, POCT, B 7.33 7.32 - 7.43 11/28/2023 9:54 PM FAST BRIM POUNCER PCSM Comment: ----ADDITIONAL INFORMATION---- Performed at the Point of Care pCO2, Venous, POCT, B 45 41 - 51 mm Hg 11/28/2023 9:54 PM FAST BRIM POUNCER PCSM Comment: ----ADDITIONAL INFORMATION---- Performed at the Point of Care pO2, Venous, POCT, B 34 Not Applicable mm Hg 11/28/2023 9:54 PM FAST BRIM POUNCER PCSM Comment: ----ADDITIONAL INFORMATION---- Performed at the Point of Care Base Excess, Venous, POCT, B -2 Not Applicable mmol/L 11/28/2023 9:54 PM FAST BRIM POUNCER PCSM Comment: ----ADDITIONAL INFORMATION---- Performed at the Point of Care HCO3, Venous, POCT, B 24 Not Applicable mmol/L 11/28/2023 9:54 PM FAST BRIM POUNCER PCSM Comment: ----ADDITIONAL INFORMATION---- Performed at the Point of Care Sodium, POCT, B 130(L) 135 - 145 mmol/L 11/28/2023 9:54 PM FAST BRIM POUNCER PCLX Comment: ----ADDITIONAL INFORMATION---- Performed at the Point of Care Potassium, POCT, B 4.7 3.6 - 5.2 mmol/L 11/28/2023 9:54 PM FAST BRIM POUNCER PCLX Comment: ----ADDITIONAL INFORMATION---- Performed at the Point of Care Calcium, Ionized, POCT, B 4.90 4.65 - 5.30 mg/dL 11/28/2023 9:54 PM FAST BRIM POUNCER PCLX Comment: ----ADDITIONAL INFORMATION---- Performed at the Point of Care Glucose, POCT, B 216(H) 70 - 140 mg/dL 11/28/2023 9:54 PM FAST BRIM POUNCER PCLX Comment: ----ADDITIONAL INFORMATION---- Performed at the Point of Care Hematocrit, POCT, B 43.0 38.3 - 48.6 % 11/28/2023 9:54 PM FAST BRIM POUNCER PCLX Comment: ----ADDITIONAL INFORMATION---- Performed at the Point of Care Blood (Blood, Venous) 11/28/2023 8:50 PM FAST BRIM POUNCER 11/28/2023 8:50 PM FAST BRIM POUNCER Narrative Authorizing Provider Result Manuel Michael M.D. LAB POCT ORDERABLES - DEVICE Performing Organization Address [facility] Co de Phone Number POC [facility] [address] [place] [address], [facility] PCLX [facility] POC [address] [place] [address] PCSM [facility] POC [address] [place] [address] * Troponin T, Baseline, 5th gen (11/28/2023 8:50 PM FAST BRIM POUNCER) Troponin T, Baseline, 5th gen 15 <=15 ng/L 11/28/2023 9:27 PM FAST BRIM POUNCER [facility] Blood (Blood, Venous) 11/28/2023 8:50 PM FAST BRIM POUNCER 11/28/2023 9:07 PM FAST BRIM POUNCER Narrative Authorizing Provider Result Manuel Michael M.D. LAB BLOO D TROPONIN Performing Organization Address [facility] de Phone Number [facility] [address] [place] [address], [facility] STMA [facility] [address] [place] [address] * (ABNORMAL) NT-Pro B-Type Natriuretic Peptide (BNP) (11/28/2023 8:50 PM FAST BRIM POUNCER) Only the most recent of3 resultswithin the time period is included. NT-Pro BNP 3189(H) <=540 pg/mL 11/28/2023 9:38 PM FAST BRIM POUNCER [facility] Comment: NT-proBNP values less than 300 [...] failure. Blood (Blood, Venous) 11/28/2023 8:50 PM FAST BRIM POUNCER 11/28/2023 9:07 PM FAST BRIM POUNCER Narrative Authorizing Provider Result Manuel Michael M.D. LAB BLOO D ADD-ON Performing Organization Address City/[facility] Co de Phone Number [facility] [address] [place] [address], [facility] [address] [place] [address] * (ABNORMAL) D-Dimer (11/28/2023 8:50 PM FAST BRIM POUNCER) Only the most recent of2 resultswithin the time period is included. [facility] D-Dimer, P 2075(H) <=500 ng/mL FEU 11/28/2023 9:17 PM FAST BRIM POUNCER [facility] Comment: D-dimer concentrations increase with age. ??For [...] (PE). Blood (Blood, Venous) 11/28/2023 8:50 PM FAST BRIM POUNCER 11/28/2023 9:07 PM FAST BRIM POUNCER Narrative Authorizing Provider Result Manuel Michael M.D. LAB BLOO D ADD-ON Performing Organization Address City/[facility]/ZIP Co de Phone Number [facility] [address] [place] [address], [facility] [address] [place] [address] * (ABNORMAL) CBC with Differential, Blood (11/28/2023 8:50 PM FAST BRIM POUNCER) Only the most recent of4 resultswithin the time period is included. [facility] Hemoglobin 13.7 13.2 - 16.6 g/dL 11/28/2023 9:10 PM FAST BRIM POUNCER STMA Hematocrit 41.5 38.3 - 48.6 % 11/28/2023 9:10 PM FAST BRIM POUNCER ST[facility] Erythrocytes 4.55 4.35 - 5.65 x10(12)/L 11/28/2023 9:10 PM FAST BRIM POUNCER [facility] MCV 91.2 78.2 - 97.9 fL 11/28/2023 9:10 PM FAST BRIM POUNCER ST[facility] RBC Distrib Width 13.7 11.8 - 14.5 % 11/28/2023 9:10 PM FAST BRIM POUNCER [facility] Platelet Count 216 135 - 317 x10(9)/L 11/28/2023 9:10 PM FAST BRIM POUNCER ST[facility] Leukocytes 12.2(H) 3.4 - 9.6 x10(9)/L 11/28/2023 9:10 PM FAST BRIM POUNCER ST[facility] Neutrophils 8.98(H) 1.56 - 6.45 x10(9)/L 11/28/2023 9:10 PM FAST BRIM POUNCER PM Lymphocytes 1.77 0.95 - 3.07 x10(9)/L 11/28/2023 9:10 PM FAST BRIM POUNCER ST[facility] Monocytes 0.98(H) 0.26 - 0.81 x10(9)/L 11/28/2023 9:10 PM FAST BRIM POUNCER ST[facility] Eosinophils 0.46 0.03 - 0.48 x10(9)/L 11/28/2023 9:10 PM FAST BRIM POUNCER ST[facility] Basophils <0.03 0.01 - 0.08 x10(9)/L 11/28/2023 9:10 PM FAST BRIM POUNCER ST[facility] Blood (Blood, Venous) 11/28/2023 8:50 PM FAST BRIM POUNCER 11/28/2023 9:07 PM FAST BRIM POUNCER Narrative Authorizing Provider Result Manuel Michael M.D. LAB BLOO D ADD-ON [facility] [address] [place] [address], [facility] STMA [facility] [address] [place] [address] [facility] [address] [place] [address] * Influenza A/B, SARS CoV-2, PCR, Rapid Symptomatic (11/28/2023 8:47 PM FAST BRIM POUNCER) Influenza A, PCR, Rapid, V Negative Negative 11/28/2023 9:33 PM FAST BRIM POUNCER [facility] Influenza B, PCR, Rapid, V Negative Negative 11/28/2023 9:33 PM FAST BRIM POUNCER [facility] SARS CoV-2, PCR, Rapid, V Undetected Undetected 11/28/2023 9:33 PM FAST BRIM POUNCER ST[facility] Comment: ----ADDITIONAL INFORMATION---- This RT-PCR test was performed using the Megan SARS-CoV-2 and Influenza A/B Reagent assay from [employer], which has received Emergency Use Authorization(EUA) by the U.S. Food and Drug Administration. Fact sheets for this Emergency Use Authorization (EUA) assay can be found at the following links: For Healthcare Providers: https://www.fda.gov/media/576959/download For Patients: https://www.fda.gov/media/447531/download Infl A/B, SARS CoV-2, PCR, Source Swab, Nasopharynx 11/28/2023 8:57 PM FAST BRIM POUNCER [facility] Swab (Nasopharynx) 11/28/2023 8:47 PM FAST BRIM POUNCER 11/28/2023 8:57 PM FAST BRIM POUNCER Mesfin Michael M.D. LAB MICR OBIOLOGY - GENERAL ORDERABLES [facility] [address] [place] [address], [facility] [address] [place] [address] * ECG 12 Lead (11/28/2023 8:47 PM FAST BRIM POUNCER) Only the most recent of4 resultswithin the time period is included. Pathologist [facility] Ventricular Rate ECG/Min 111 BPM MUSE WA Interval 164 ms MUSE QRSD Interval 180 ms MUSE QT Interval 390 ms MUSE QTC Interval 530 ms MUSE P Napoleon 44 degrees MUSE R Napoleon 59 degrees MUSE T Wave Napoleon 53 degrees MUSE 11/28/2023 8:47 PM FAST BRIM POUNCER 11/28/2023 9:11 PM FAST BRIM POUNCER Impressions MUSE - 11/28/2023 9:11 PM FAST BRIM POUNCER Dual chamber electronic pacemaker Sinus tachycardia When [...] Pickard Mesfin Michael M.D. ECG CARLOS EDUARDO AVERY MUSE NA * POCUS Cardiac (11/28/2023 8:45 PM FAST BRIM POUNCER) 11/28/2023 8:45 PM FAST BRIM POUNCER Narrative QPATH - 11/28/2023 8:45 PM FAST BRIM POUNCER Cardiac ?[id number] ULTRASOUND - EMERGENCY MEDICINE - [facility]: ?Exam Type: ??Diagnostic ?Indication(s) for Exam: ?Dyspnea [...] Note Hector Barragan M.D. - 12/04/2023 Cardiac [id number] ULTRASOUND - EMERGENCY MEDICINE - [facility]: Exam Type: Diagnostic Indication(s) for Exam: Dyspnea [...] and Lateral 2 Views (11/01/2023 9:18 PM FAST BRIM POUNCER) Only the most recent of2 resultswithin the time period is included. Anatomical Region Laterality Modality Chest, Thoracic RST LOS, Tho racic ARZ LOS, Thoracic FLA LOS N/A Digital Radiography 11/01/2023 10:2 3 PM FAST BRIM POUNCER Impressions 11/02/2023 10:43 AM FAST BRIM POUNCER Since 10/31/2023, interval placement of left chest wall dual-chamber pacemaker with leads in appropriate position. No focal consolidation, large pleural effusion, or discernible pneumothorax. ??Normal heart size. Large hiatal hernia containing air-fluid level. Narrative 11/02/2023 10:43 AM FAST BRIM POUNCER EXAM: ??DX CHEST AP OR PA AND [...] IMPLANT - DUAL CHAMBER (11/01/2023 5:12 PM FAST BRIM POUNCER) Anatomical Region Laterality Modality X-Ray Angiograph y 11/01/2023 4:16 PM FAST BRIM POUNCER Narrative 11/01/2023 5:21 PM FAST BRIM POUNCER For the complete report, see the Order-Level [...] ??Testing of the leads using an external asp net programmer was performed revealing adequate threshold, sensitivity, and [...] in stable condition without complications. ??The attending corn press operator was present for the entire procedure. Plan: [...] sutures.Testing of the leads using an external asp net programmer was performed revealingadequate threshold, sensitivity, and impedance. [...] the complete report, see the Order-Level Documents. Loni Johnson P.A.-C.S. CV ELECTROPHYS IOLOGY PROCS * Sodium, Random, Urine (11/01/2023 10:44 AM FAST BRIM POUNCER) Sodium, Random, U 48 mmol/L 11/01/2023 12:55 PM FAST BRIM POUNCER DT Comment: ----REFERENCE VALUE---- Random urine sodium may be interpreted in conjunction with serum sodium, using both values to calculate fractional excretion of sodium. Urine (Urine, Straight Catheter) 11/01/2023 10:44 AM FAST BRIM POUNCER 11/01/2023 11:37 AM FAST BRIM POUNCER Delilah Lopez P.A.-C. M.S. LAB URINE ORDE RABKATERYNA Performing Organization Address City/[facility]/ZIP Co de Phone Number [facility] [address] [place], [place] [address] [place] [address] 200 [place] [address] * Osmolality, Urine (11/01/2023 10:44 AM FAST BRIM POUNCER) Only the most recent of3 resultswithin the time period is included. Osmolality, U 426 150 - 1150 mOsm/kg 11/01/2023 12:03 PM FAST BRIM POUNCER DT Urine (Urine, Straight Catheter) 11/01/2023 10:44 AM FAST BRIM POUNCER 11/01/2023 11:37 AM FAST BRIM POUNCER Delilah Lopez P.A.-C. M.S. LAB URINE ORDE RABKATERYNA Performing Organization Address City/[facility]/ZIP Co de Phone Number [facility] [address] [place] [address], [facility] [address] [place] [address] * (ABNORMAL) Osmolality (11/01/2023 6:35 AM FAST BRIM POUNCER) Osmolality, S 265(L) 275 - 295 mOsm/kg 11/01/2023 9:40 AM FAST BRIM POUNCER DTL Blood (Blood, Venous) 11/01/2023 6:35 AM FAST BRIM POUNCER 11/01/2023 7:18 AM FAST BRIM POUNCER Delilah Lopez P.A.-C. M.S. LAB BLOOD ADD- ON Performing Organization Address [facility] [place] [address] * Magnesium (11/01/2023 6:35 AM FAST BRIM POUNCER) Only the most recent of2 resultswithin the time period is included. Magnesium, S 2.1 1.7 - 2.3 mg/dL 11/01/2023 7:35 AM FAST BRIM POUNCER DTL Blood (Blood, Venous) 11/01/2023 6:35 AM FAST BRIM POUNCER 11/01/2023 7:18 AM FAST BRIM POUNCER Delilah Lopez P.A.-C., M.S. LAB BLOOD ADD- ON Performing Organization Address [facility] [place] [address] * (ABNORMAL) Dipstick, Urine (10/31/2023 12:22 PM FAST BRIM POUNCER) Only the most recent of3 resultswithin the time period is included. Hemoglobin, QL Moderate(A) Negative 10/31/2023 2:05 PM FAST BRIM POUNCER DTL Leukocyte Esterase, U Trace(A) Negative 10/31/2023 2:05 PM FAST BRIM POUNCER DTL Nitrite, U Negative Negative 10/31/2023 2:05 PM FAST BRIM POUNCER DTL Ketones, U Negative Negative mg/dL 10/31/2023 2:05 PM FAST BRIM POUNCER DTL Glucose, U Negative Negative mg/dL 10/31/2023 2:05 PM FAST BRIM POUNCER DTL Urine 10/31/2023 12:2 2 PM FAST BRIM POUNCER 10/31/2023 12:49 PM FAST BRIM POUNCER Delilah Lopez P.A.-C. MCarmineSCarmine LAB URINE ORDE BENNIE Performing Organization Address [facility] Co de Phone Number [facility] [address] [facility] [address] [place] [address] * (ABNORMAL) Microscopic Automated (10/31/2023 12:22 PM FAST BRIM POUNCER) Only the most recent of2 resultswithin the time period is included. Microscopy Abnormal 10/31/2023 2:05 PM FAST BRIM POUNCER DTL RBC 51-100(A) <3 /hpf 10/31/2023 2:05 PM FAST BRIM POUNCER DTL Dysmorphic RBC <25 <25 % 10/31/2023 2:05 PM FAST BRIM POUNCER DTL WBC 1-3 /hpf 10/31/2023 2:05 PM FAST BRIM POUNCER DTL Comment: ----REFERENCE VALUE---- <4 ??(Males) <11 (Females) Urine 10/31/2023 12:2 2 PM FAST BRIM POUNCER 10/31/2023 12:49 PM FAST BRIM POUNCER Delilah Lopez P.A.-C. MCarmineSCarmine LAB URINE CARLOS EDUARDO AVERY Performing Organization Address [facility] Co de Phone Number [facility] [address] [place] [address], [facility] [address] [place] [address] * pH, Urine (10/31/2023 12:22 PM FAST BRIM POUNCER) Only the most recent of2 resultswithin the time period is included. pH, U 6.5 4.5 - 8.0 10/31/2023 2:1 1 PM FAST BRIM POUNCER DTL Urine 10/31/2023 12:2 2 PM FAST BRIM POUNCER 10/31/2023 12:49 PM FAST BRIM POUNCER Delilah Lopez P.A.-C. MJeet LAB URINE ORDE BENNIE Performing Organization Address City/[facility] Co de Phone Number [facility] [address] [place] [address], [facility] [address] [place] [address] * (ABNORMAL) Urinalysis with Microscopic: Urine, Straight Catheter (10/31/2023 12:22 PM FAST BRIM POUNCER) Only the most recent of4 resultswithin the time period is included. Source Urine, Urine, Straight Catheter 10/31/2023 12:49 PM FAST BRIM POUNCER DTL Color, U Yellow 10/31/2023 12:49 PM FAST BRIM POUNCER DTL Clarity, U Clear 10/31/2023 12:49 PM FAST BRIM POUNCER DTL Protein, U 23 <26 mg/dL 10/31/2023 1:41 PM FAST BRIM POUNCER DTL Protein/Osmola lity 0.63(H) <0.42 ratio 10/31/2023 2:11 PM FAST BRIM POUNCER DTL Predicted 24 HR Protein, U 603(H) <229 mg/24 h 10/31/2023 2:11 PM FAST BRIM POUNCER DTL Predicted Range 191-1901 mg/24 h 10/31/2023 2:11 PM FAST BRIM POUNCER DTL Urine (Urine, Straight Catheter) 10/31/2023 12:22 PM FAST BRIM POUNCER 10/31/2023 12:49 PM FAST BRIM POUNCER Delilah Lopez P.A.-C., M.S. LAB URINE CARLOS EDUARDO AVERY Performing Organization Address [facility] Co de Phone Number [facility] [address] [place] [address], [facility] [address] [place] [address] * (TTE) 2D ECHO DOPPLER COLOR (10/31/2023 9:42 AM FAST BRIM POUNCER) Pathologist [facility] Ejection Fraction 51 MC CV EIMS Wall [...] Region Laterality Modality Echocardiography 10/31/2023 7:59 AM FAST BRIM POUNCER Impressions 10/31/2023 10:20 AM FAST BRIM POUNCER Echo performed at the patient's bedside. Echocardiogram [...] the Order-Level Documents. Narrative 10/31/2023 10:20 AM FAST BRIM POUNCER For the complete report, see the Order-Level [...] P.A.-C. CV ECHO PROCEDURES * Thyroid Function [place] (10/31/2023 8:14 AM FAST BRIM POUNCER) TSH, Sensitive 0.6 0.3 - 4.2 mIU/L 10/31/2023 10:43 AM FAST BRIM POUNCER DTL Blood (Blood, Venous) 10/31/2023 8:14 AM FAST BRIM POUNCER 10/31/2023 9:05 AM FAST BRIM POUNCER Naveen Bell P.A.-C. LAB BLOOD ADD-ON [place] [address] [place], [place] [address] [address] [place] [address] * (ABNORMAL) Troponin T, 5th Generation (10/31/2023 8:14 AM FAST BRIM POUNCER) Only the most recent of2 resultswithin the time period is included. Troponin T, 5th gen 21(H) <=15 ng/L 10/31/2023 8:40 AM FAST BRIM POUNCER [facility] Blood (Blood, Venous) 10/31/2023 8:14 AM FAST BRIM POUNCER 10/31/2023 8:40 AM FAST BRIM POUNCER Naveen Bell P.A.-C. LAB BLOOD ADD-ON Performing Organization Address City/[facility]/ZIP Co de Phone Number [facility] [address] [place] [address], [facility] [address] [place] [address] * (ABNORMAL) Hemoglobin A1c (10/31/2023 8:14 AM FAST BRIM POUNCER) Pathologist [facility] Hemoglobin A1c, B 6.1(H) 4.0 - 5.6 % 10/31/2023 11:41 AM FAST BRIM POUNCER DTL Comment: Hemoglobin A1c values of 5.7-6.4 percent indicate an increased risk for developing diabetes mellitus. In diabetic patients, HbA1c goals should be discussed with healthcare provider. Blood (Blood, Venous) 10/31/2023 8:14 AM FAST BRIM POUNCER 10/31/2023 8:37 AM FAST BRIM POUNCER Naveen Bell P.A.-C. LAB BLOOD ADD-ON [facility] [address] [place] [address], [facility] [address] [place] [address] * (ABNORMAL) Comprehensive Metabolic Panel (10/31/2023 8:14 AM FAST BRIM POUNCER) Potassium, S 4.6 3.6 - 5.2 mmol/L 10/31/2023 10:43 AM FAST BRIM POUNCER DTL Sodium, S 130(L) 135 - 145 mmol/L 10/31/2023 10:43 AM FAST BRIM POUNCER DTL Chloride, S 94(L) 98 - 107 mmol/L 10/31/2023 10:43 AM FAST BRIM POUNCER DTL Bicarbonate, S 22 22 - 29 mmol/L 10/31/2023 10:43 AM FAST BRIM POUNCER DTL Anion Gap 14 7 - 15 10/31/2023 10:43 AM FAST BRIM POUNCER DTL BUN (Blood Urea Nitrogen), S 13 8 - 24 mg/dL 10/31/2023 10:43 AM FAST BRIM POUNCER DTL Creatinine 0.80 0.74 - 1.35 mg/dL 10/31/2023 10:43 AM FAST BRIM POUNCER DTL Estimated GFR (eGFR) 89 >=60 mL/min/BS A 10/31/2023 10:43 AM FAST BRIM POUNCER DTL Comment: Estimated GFR calculated using the 2020 CKD_EPI creatinine equation. Calcium, Total, S 8.7(L) 8.8 - 10.2 mg/dL 10/31/2023 10:43 AM FAST BRIM POUNCER DTL Glucose, S 107 70 - 140 mg/dL 10/31/2023 10:43 AM FAST BRIM POUNCER DTL Protein, Total, S 6.8 6.3 - 7.9 g/dL 10/31/2023 10:43 AM FAST BRIM POUNCER DTL Albumin, S 3.9 3.5 - 5.0 g/dL 10/31/2023 10:43 AM FAST BRIM POUNCER DTL Aspartate Aminotransferase (AST), S 25 8 - 48 U/L 10/31/2023 10:43 AM FAST BRIM POUNCER DTL Alkaline Phosphatase, S 112 40 - 129 U/L 10/31/2023 10:43 AM FAST BRIM POUNCER DTL Alanine Aminotransferase (ALT), S 20 7 - 55 U/L 10/31/2023 10:43 AM FAST BRIM POUNCER DTL Bilirubin, Total, S 0.5 0.0 - 1.2 mg/dL 10/31/2023 10:43 AM FAST BRIM POUNCER DTL Blood (Blood, Venous) 10/31/2023 8:14 AM FAST BRIM POUNCER 10/31/2023 9:05 AM FAST BRIM POUNCER Naveen Bell P.A.-C. LAB BLOOD ADD-ON [facility] [address] [place] [address], [place] DTL [facility] [address] [place] [address] * (ABNORMAL) Bacterial Culture, Aerobic + Susceptibility, Urine (10/27/2023 1:40 PM FAST BRIM POUNCER) Only the most recent of2 resultswithin the time period is included. Urine Culture Mixed microbiota (A) 10/29/2023 9:19 AM FAST BRIM POUNCER TO Urine (Urine, Midstream) 10/27/2023 1:40 PM FAST BRIM POUNCER 10/27/2023 7:07 PM FAST BRIM POUNCER Comment:Specimen Source Site : Urine Dayami Murillo P.A.-C. LAB MICROBIOLOGY - GENERAL ORDERABLES Performing Organization Address City/[facility] Co de Phone Number [facility] [address] [place] [address], [facility] MKTO [place] [address] * Non-Radiology Image-Urology Image Exam (10/03/2023 1:56 PM FAST BRIM POUNCER) 10/03/2023 3:34 PM FAST BRIM POUNCER Narrative IIMS - 10/03/2023 1:56 PM FAST BRIM POUNCER This order has been created and auto-finalized to support the import of images acquired without order. The clinical documentation to support these images can be found on the encounter that produced images. Provider Not In System IMG NON RAD IMAGI NG PROCEDURES IIMS NA * WA US TRANSRECTAL (10/03/2023 1:30 PM FAST BRIM POUNCER) Narrative Sadia Amato M.D. - 10/03/2023 1:30 PM FAST BRIM POUNCER Sadia Amato M.D. ? 10/03/2023 ??2:04 PM URO Prostate US Performed by: Sadia Amato M.D. Authorized by: Jonnathan Rahman APRN, C.N.PCarmine, D.N.P., M.S. ?? IMPRESSION: ??Normal prostate ultrasound PROCEDURE [...] 67.1 mm. ??Total volume 68.[address] [facility] Justin MCCLELLAN, Isis.N.P., M. S. UROLOGY ORDERABLES * URO Uroflow (10/03/2023 11:00 AM FAST BRIM POUNCER) Narrative Orvilel Jeter M.D. - 10/03/2023 11:00 AM FAST BRIM POUNCER Orville Jeter M.D. ? 10/03/2023 12:31 PM [...] hypocontractile bladder. Clinical correlation is recommended. [facility] Justin MCCLELLAN, Isis.N.P., M. S. UROLOGY ORDERABLES * [place] CYSTOURETHROSCOPY (10/03/2023 9:30 AM FAST BRIM POUNCER) Narrative Anai Wong P.A.-C. - 10/03/2023 9:30 AM FAST BRIM POUNCER Anai Wong P.A.-C. ? 10/03/2023 10:08 AM URO Cystoscopy (general) Performed by: Anai Wong P.A.-C. Authorized by: Jonnathan Rahman APRN, C.N.P., D.N.P., M.S. ?? IMPRESSION ?? BPH and other Additional procedures performed: cystoscopy ?? PROCEDURE DETAILS Mr. Khanna is an 78-year-old gentleman who presents today [...] was educated on post procedure instructions. ?? [facility] Josiah MCCLELLAN C.N.P., Isis.N.P., M. S. UROLOGY ORDERABLES * Osmolality, Urine (09/08/2023 10:49 AM CDT) Osmolality, U 467 150 - 1150 mOsm/kg 09/08/2023 11:49 AM CDT DTL Urine 09/08/2023 10:4 9 AM CDT 09/08/2023 11:[address] [facility] Nery Justin MCCLELLAN, Isis.N.P., M. S. LAB URINE ORDERABLES Performing Organization Address City/[facility]/ZIP Co de Phone Number [facility] [address] [place] [address], [facility] [address] [place] [address] * pH, Random, Urine (09/08/2023 10:49 AM CDT) pH, Random, U 6.5 4.5 - 8.0 09/08/2023 11:49 AM CDT DTL Urine 09/08/2023 10:4 9 AM CDT 09/08/2023 11:[address] [facility] Danny Rahman APRNNRenetta, Isis.N.P., M. S. LAB URINE ORDERABLES [facility] [address] [place], [place] [address] [address] [place] [address] * (ABNORMAL) Microscopic Manual (09/08/2023 10:49 AM CDT) Microscopy Abnormal 09/08/2023 12:00 PM CDT DTL RBC <3 <3 /hpf 09/08/2023 12:00 PM CDT DTL WBC 4-10(A) /hpf 09/08/2023 12:00 PM CDT DTL Comment: ----REFERENCE VALUE---- 1-3 ??(Males) 1-10 (Females) Urine 09/08/2023 10:4 9 AM CDT 09/08/2023 11:10 AM CDT Danny García APRNNRenetta, Isis.N.P., M. S. LAB URINE ORDERABLES Performing Organization Address City/State/[facility] Co de Phone Number [facility] [address] [place], [place] [address] [address] [place] [address] * PSA (Prostate-Specific Antigen), Diagnostic (09/08/2023 10:43 [...] 10:43 AM CDT 09/08/2023 11:16 AM CDT Radha García APRN.N.PCarmine, D.N.P., M. S. LAB BLOOD ADD-ON [facility] [address] [place] [address], [place] DTL [facility] [address] [place] [address] from Last 3 Months Advance Directives For more information, please contact: [phone] Latest Code Status on File Code Status [...] Due to: Patient does not have the [facility] Care Teams Tagman Relationship Specialty Start Date End Date Elsewhere, Pcp PCP - General Family Medicine 10/25/18
--- OUTSIDE RECORDS SUMMARY | 2023-12-09 00:03 | XMS_ITS | Encounter Summary ---
Author Name Unknown Organization [facility] Address [address] [place] [address] Care Team Providers Care Plastics Repairer Name Role Phone Elsewhere, Pcp Primary Care Provider Unavailabl e Encounter Details Date Type Department Care Team (Latest Contact Info) Description 12/05/2023 4:00 AM ROUTER OPERATOR PIN - 12/05/2023 12:08 PM ROUTER OPERATOR PIN Hospital Encounter Department of Cardiovascular Diseases in [place], [place] [address] [place] [address] Bautista Moore M.D., M.P.H. [address] [place] [phone] Encounter For Checking And Testing Of Cardiac Pacemaker Pulse Generator Battery Discharge Disposition: Home or Self Care Social History Tobacco Use Types Packs/Day Years Used Date Smoking Tobacco: Never Passive Smoke Exposure: Past Smokeless Tobacco: Never Passive Exposure Comments:Gr owing up for Many years - Father Alcohol Use Standard Drinks/Week Comments No 0 (1 standard drink = 0.6 oz pur e alcohol) [facility] Utilities Answer Date Recorded In the [...] re latives? Once a week 05/31/2020 Attends Buddhism Services Not on file 05/31 Active Member [...] Answer Date Recorded PHQ-2 Score 0 10/27/2023 [facility] - Occupational Stress [...] your living situation today? [facility] 11/29/2023 Education Answer [...] Refills Start Date End Date acetaminophen (TYLENOL) 500 mg capsule Take 2 capsules (1,000 mg total) by mouth every 6 (six) hours as needed for pain. 0 05/27/2021 albuterol (PROVENTIL HFA,VENTOLIN HFA) 90 mcg/actuation inhaler Inhale 1-2 puffs as needed for wheezing or shortness of breath. 0 03/31/[address] tablet Take 81 mg by mouth daily. Take for life. 0 08/27/2015 calcium carbonate (TUMS) 500 mg (200 mg calcium) chewable tablet Chew 1 tablet 2 (two) times a day as needed for indigestion or heartburn. 0 carvediloL (COREG) 25 mg tablet Take 1 tablet (25 mg total) by mouth 2 (two) times a day with meals. 60 tablet 11 11/02/2023 11/01/2024 cetirizine (ZyrTEC) 10 mg tablet Take 10 mg by mouth daily. 0 08/24/2015 finasteride (PROSCAR) 5 mg tablet Take 1 tablet (5 mg total) by mouth daily. 90 tablet 3 11/22/2023 fluticasone propion-salmeteroL 250-50 mcg/dose diskus inhaler Inhale 1 puff daily as needed. 0 08/25/2015 lisinopriL (PRINIVIL,ZESTRIL) 40 mg tablet Take 1 tablet (40 mg total) by mouth daily. 90 tablet 3 10/20/2023 10/19/2024 montelukast (SINGULAIR) 10 mg tablet Take 1 tablet by mouth at bedtime. 0 08/25/2015 multivitamin tablet Take 1 tablet by mouth daily. 0 rosuvastatin (Crestor) 40 mg tablet Take 1 tablet (40 mg total) by mouth daily. 90 tablet 3 10/20/2023 10/19/2024 tamsulosin (FLOMAX) 0.4 mg 24 hr capsule Take 2 capsules (0.8 mg total) by mouth at bedtime. 60 capsule 11 11/22/2023 11/21/2024 documented as of this encounter Plan of Treatment Upcoming Encounters Date Type Department Care Team (Late st Contact Info) Description 12/13/2023 8:50 AM ROUTER OPERATOR PIN Appointment Department of Laboratory Medicine and Pathology, [facility] in [place], [place] [address] [place] [phone] Natasha Mullins APRN, Radha.N.P., M.S., M.S.N. [address] [place] [phone] 12/13/2023 11:00 AM ROUTER OPERATOR PIN Office Visit Department of Cardiovascular Medicine in [place], [place] [address] [place] [phone] Natasha Mullins APRN, Radha.N.Franklin., M.S., M.S.N. [address] [place] [phone] 02/02/2024 9:15 AM CDT Appointment Department of Cardiovascular Diseases in [place], [place] [address] [place] [phone] Fazal Reynoso M.D. [address] [place] [address] documented as of this encounter Procedures Procedure Name Priority Date/Time Associated Diagnosis Comments CAR CARDIAC DEVICE INTERROGATION Routine 12/05/2023 11:10 AM ROUTER OPERATOR PIN Encounter For Checking And Testing Of Cardiac Pacemaker Pulse Generator Battery documented in this encounter Results * CARDIOVASCULAR IMPLANTABLE ELECTRONIC DEVICE - NO CHARGE (12/05/2023 11:10 AM ROUTER OPERATOR PIN) Date Time Interrogation Session [id number] [facility] Implantable Pulse Generator Senior Hris Analyst Medtronic [facility] Implantable Pulse Generator Model [id number] [place] XT MRI [facility] Implantable Pulse Generator Serial Number [id number] [facility] Type Interrogation Session Remote [facility] Clinic Name [facility] Implantable Pulse Generator Type Pacemaker [facility] Implantable Pulse Generator Implant Date [id number] [facility] Implantable Lead Senior Hris Analyst Medtronic [facility] Implantable Lead Model 4076 CapsureFix Novus MRI SureScan [facility] Implantable Lead Serial Number [id number] [facility] Implantable Lead Implant Date 20231101 [facility] Implantable Lead Polarity Type Bipolar Lead [facility] Implantable Lead Location Detail 1 UNKNOWN [facility] Implantable Lead Special Function Lead length: 52 cm [facility] Implantable Lead Location Right Atrium [facility] Implantable Lead Senior Hris Analyst Medtronic [facility] Implantable Lead Model 4076 CapsureFix Novus MRI SureScan [facility] Implantable Lead Serial Number [id number] [facility] Implantable Lead Implant Date 20231101 [facility] Implantable Lead Polarity Type Bipolar Lead [facility] Implantable Lead Location Detail 1 UNKNOWN [facility] Implantable Lead Special Function Lead length: 58 cm [facility] Implantable Lead Location Right Ventricle [facility] Сергей Setting Mode (NBG Code) DDD [facility] Сергей Setting Lower Rate Limit 60 {beats}/ min [facility] Сергей Setting Maximum Tracking Rate 120 {beats}/ min [facility] Сергей Setting Maximum Sensor Rate 120 {beats}/ min [facility] Сергей Setting KATHY Delay Low 150 ms [facility] Сергей Setting PAV Delay Low 180 ms [facility] Сергей Setting AT Mode Switch Rate 171 {beats}/ min [facility] Lead Channel Setting Sensing Polarity Bipolar [facility] Lead Channel Setting Sensing Anode Location Right Atrium [facility] Lead Channel Setting Sensing Anode Terminal Ring [facility] Lead Channel Setting Sensing Cathode Location Right Atrium [facility] Lead Channel Setting Sensing Cathode Terminal Tip [facility] Lead Channel Setting Sensing Sensitivity 0.3 mV [facility] Lead Channel Setting Sensing Polarity Bipolar [facility] Lead Channel Setting Sensing Anode Location Right Ventricle [facility] Lead Channel Setting Sensing Anode Terminal Ring [facility] Lead Channel Setting Sensing Cathode Location Right Ventricle [facility] Lead Channel Setting Sensing Cathode Terminal Tip [facility] Lead Channel Setting Sensing Sensitivity 0.9 mV [facility] Lead Channel Setting Pacing Polarity Bipolar [facility] Lead Channel Setting Pacing Anode Location Right Atrium [facility] Lead Channel Setting Pacing Anode Terminal Ring [facility] Lead Channel Setting Sensing Cathode Location Right Atrium [facility] Lead Channel Setting Sensing Cathode Terminal Tip [facility] Lead Channel Setting Pacing Pulse Width 0.4 ms [facility] Lead Channel Setting Pacing Amplitude 3.5 V [facility] Lead Channel Setting Pacing Capture Mode Adaptive [facility] Lead Channel Setting Pacing Polarity Bipolar [facility] Lead Channel Setting Pacing Anode Location Right Ventricle [facility] Lead Channel Setting Pacing Anode Terminal Ring [facility] Lead Channel Setting Sensing Cathode Location Right Ventricle [facility] Lead Channel Setting Sensing Cathode Terminal Tip [facility] Lead Channel Setting Pacing Pulse Width 0.4 ms [facility] Lead Channel Setting Pacing Amplitude 3.5 V [facility] Lead Channel Setting Pacing Capture Mode Adaptive [facility] Zone Setting Type Category VF [facility] Zone Setting Type Category VT [facility] Zone Setting Type Category VT [facility] Zone Setting Type Category VT [facility] Zone Setting Detection Interval 360 ms [facility] Zone Setting Type Category ATRIAL_FIBRILLATI ON [facility] Zone Setting Type Category AT/AF [facility] Zone Setting Detection Interval 350 ms [facility] Lead Channel Impedance Value 513 ohm [facility] Lead Channel Impedance Value 323 ohm [facility] Lead Channel Sensing Intrinsic Amplitude 3 mV [facility] Lead Channel Sensing Intrinsic Amplitude 3 mV [facility] Lead Channel Pacing Threshold Amplitude 0.75 V [facility] Lead Channel Pacing Threshold Pulse Width 0.4 ms [facility] Lead Channel Impedance Value 475 ohm [facility] Lead Channel Impedance Value 380 ohm [facility] Lead Channel Sensing Intrinsic Amplitude 10.75 mV [facility] Lead Channel Sensing Intrinsic Amplitude 10.75 mV [facility] Lead Channel Pacing Threshold Amplitude 0.5 V [facility] Lead Channel Pacing Threshold Pulse Width 0.4 ms [facility] Battery Date Time of Measurements [facility] Battery WINDOW CLERK Trigger 2.625 [facility] Battery Remaining Longevity 137 mo [facility] Battery Voltage 3.20 V [facility] Сергей Statistic Date Time Start [facility] Сергей Statistic Date Time End [facility] Сергей Statistic RA Percent Paced 6.56 % [facility] Сергей Statistic RV Percent Paced 93.83 % [facility] Сергей Statistic AP TOUR MANAGER Percent 4.84 % [facility] Сергей Statistic TOUR MANAGER Percent 88.99 % [facility] Сергей Statistic AP VS Percent 0.02 % [facility] Сергей Statistic VS Percent 6.15 % [facility] Atrial Tachy Statistic Date Time Start [facility] Atrial Tachy Statistic Date Time End [facility] Atrial Tachy Statistic AT/AF [place] Percent 0 % [facility] Episode [...] SYSTEM Episode Statistic Recent Date Time Start [facility] Episode Statistic Recent Date Time End [facility] Episode Statistic Recent Date Time Start [facility] Episode Statistic Recent Date Time End [facility] Episode Statistic Recent Date Time Start [facility] Episode Statistic Recent Date Time End [facility] Episode Statistic Recent Date Time Start [facility] Episode Statistic Recent Date Time End [facility] Episode Statistic Recent Date Time Start F[facility] Episode Statistic Recent Date [...] SYSTEM Episode Statistic Total Date Time Start [facility] Episode Statistic Total Date Time End [facility] Episode Statistic Total Date Time Start [facility] Episode Statistic Total Date Time End [facility] Episode Statistic Total Date Time Start [facility] Episode Statistic Total Date Time End [facility] Episode Statistic Total Date Time Start F[facility] Episode Statistic Total Date Time End [facility] Episode Statistic Total Date Time Start [facility] Episode Statistic Total Date Time End [facility] Anatomical Region Laterality Modality Other 12/05/2023 10:5 0 AM ROUTER OPERATOR PIN Narrative 12/06/2023 7:42 AM ROUTER OPERATOR PIN PURPOSE OF VISIT: ??Physician requested patient initiated remote. PRESENTING EGM: ??-TOUR MANAGER at 80 bpm. ATRIAL ARRHYTHMIAS: ??None recorded. ?Atrial fibrillation burden: 0% VENTRICULAR ARRHYTHMIAS: ??None recorded. ?PVC [place]: 76/hr BATTERY LONGEVITY: Expected battery longevity trends [...] M.D., M.P.H. CV IMPLANTAB LE CARDIAC DEVICE documented in this encounter Visit Diagnoses Diagnosis Encounter For Checking And Testing Of Cardiac Pacemaker Pulse Generator Battery documented in this encounter Care Teams Plastics Repairer Relationship Specialty Start Date End Date Elsewhere, Pcp PCP - General Family Medicine 10/25/18 documented as of this encounter
--- OUTSIDE RECORDS SUMMARY | 2023-12-09 00:04 | XMS_ITS | Encounter Summary ---
Author Name Unknown Organization [facility] Address [address] [place] [address] Care Team Providers Care Field Specialist Name Role Phone Elsewhere, Pcp Primary Care Provider Unavailabl e Reason for Referral * Outpatient (Routine) - Authorized Specialty Diagnoses / Procedures Referred By Miguel arzola Referred To Contact Endocrinology Diagnoses Malignant Neoplasm Of Thyroid Papillary (HCC) Loni Wu M.D. [address] [place] [address] [facility] Referral ID Status Reason Start Date Expiration Date V isits Requested Visits Authorized [id number] Authorized 12/05/2023 06/05/2025 1 1 TROPLATER * Outpatient (Routine) - Authorized Specialty Diagnoses / Procedures Referred By Miguel arzola Referred To Contact Diagnoses Malignant Neoplasm Of Thyroid Papillary (HCC) Procedures US Head Neck Soft Tissue Loni Wu M.D. [address] [place] [address] [facility] Referral ID Status Reason Start Date Expiration Date V isits Requested Visits Authorized [id number] Authorized 12/05/2023 12/04/2024 1 1 TROPLATER Reason for Visit * Outpatient (Routine) - Closed Specialty Diagnoses / Procedures Referred By Contac t Referred To Contact Endocrinology Diagnoses Malignant Neoplasm Of Thyroid Papillary (HCC) Loni Wu M.D. [address] [place] [address] [facility] Referral ID Status Reason Start Date Expiration Date Visits Re quested Visits Authorized [id number] Closed 11/26/2022 11/25/2025 1 1 Encounter Details Date Type Department Care Team (Latest Contact Info) Description 12/05/2023 3:30 PM ELECTROPLATER Office Visit Division of Endocrinology in [place], [place] [address] [place] [phone] Loni Wu M.D. [address] [place] [address] Malignant Neoplasm Of Thyroid Papillary (HCC) Social History Tobacco Use Types Packs/Day Years Used Date Smoking Tobacco: Never Passive Smoke Exposure: Past Smokeless Tobacco: Never Passive Exposure Comments:Gr owing up for Many years - Father Alcohol Use Standard Drinks/Week Comments No 0 (1 standard drink = 0.6 oz pur e alcohol) [facility] Utilities Answer Date Recorded In the past [...] re latives? Once a week 05/31/2020 Attends Scientology Services Not on file 05/31 Active Member [...] Answer Date Recorded PHQ-2 Score 0 10/27/2023 [facility] - Occupational [...] living situation today? I have a [facility] place to live 11/29/2023 Education Answer Date [...] documented as of this encounter Progress Notes * Loni Wu M.D. - 12/05/2023 3:30 PM CST SUBJECTIVE CHIEF COMPLAINT/REASON FOR VISIT Mr. Khanna is here today for followup of thyroid cancer. HISTORY OF PRESENT ILLNESS Mr. Khanna is well known to me. I have been following him since 2019 for papillary thyroid cancer. Last visit with me was November of last year. He has a known history of metastatic papillary thyroid cancer and has undergone thyroidectomy with a modified neck dissection and a subsequent neck exploration for excision of multiple metastatic lymph nodes. 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 He tells me that, since his last visit here a year ago, he had a pacemaker placed in October, and he was also recently hospitalized with bilateral pneumonia. He is now finally doing better, but it has taken a toll on him. Regarding his thyroid cancer, he has had no specific thyroid-related concerns. He remains on his usual dose of levothyroxine 175 mcg with a low-normal TSH.His thyroglobulin is currently pending. He had his neck ultrasound completed this morning, which shows a slight increase in the size of 2 nodules in the left mid thyroid bed, one of which now measures 7 mm versus 5 mm a year ago; the smaller nodule measures 4 mm versus 3 mm previously. Both of these have internal vascularity. No other neck lymphadenopathy. No other current concerns. OBJECTIVE PHYSICAL EXAMINATION General: This is an elderly man in no acute distress. Vital Signs: Height 175 cm. Weight 80.6 kg. Eyes: Negative. Neck: Examination shows a healed thyroidectomy scar. No palpable residual thyroid tissue. No palpable lymphadenopathy. Lungs: Clear to auscultation bilaterally. Heart: Regular. ASSESSMENT / PLAN #1 Metastatic papillary thyroid cancer, status post total thyroidectomy and subsequent modified neck dissection #2 Status post right lateral neck exploration with excision of multiple metastatic lymph nodes #3 Adequate thyroid hormone therapy #4 Recent pacemaker placement #5 Low-grade lymphoma, followed by Hematology I reviewed with Levi the results of his current labs. They appear satisfactory. Thyroglobulin is currently pending, but I anticipate it might be slightly higher. However, his neck ultrasound is quite reassuring. Although there are 2 tiny nodules and although these have grown, they remain very small, and he would rather observe for now than intervene at this time, given that he has had so many health issues recently. I think this is quite reasonable. I would like to see him back in about 6 months, and I have issued orders for this. I have also refilled his current prescription and expect to see him in 6 months. He is in agreement with this plan. Loni Wu M.D. CT CT Job ID: [id number] TROPLATER documented in this encounter Plan of Treatment Upcoming Encounters Date Type Department Care Team (Late st Contact Info) Description 12/13/2023 8:50 AM ELECTROPLATER Appointment Department of Laboratory Medicine and Pathology, [facility], in [place], [place] [address] [place] [phone] Naatsha Mullins APRN, Radha.NLibrado., M.S., M.S.N. [address] [place] [phone] 12/13/2023 11:00 AM ELECTROPLATER Office Visit Department of Cardiovascular Medicine in [place], [place] [address] [place] [phone] Natasha Mullins APRN, Radha.N.Franklin., M.S., M.S.N. [address] [place] [address] 02/02/2024 9:15 AM CDT Appointment Department of Cardiovascular Diseases in [place], [place] [address] [place] [address] Fazal Reynoso M.D. [address] [place] [address] Scheduled Orders Name Type Priority Associated Diagnoses Orde r Schedule US Head Neck Soft Tissue Imaging RAD - Routine (most inpatients and all outpatients) Malignant Neoplasm Of Thyroid Papillary (HCC) Expected: 06/04/2024 (Approximate), Expires: 03/05/2025 Thyroglobulin, Tumor Marker Lab Routine Malignant Neoplasm Of Thyroid Papillary (HCC) Expected: 06/04/2024 (Approximate), Expires: 03/05/2025 T4 (Thyroxine), Free Lab Routine Malignant Neoplasm Of Thyroid Papillary (HCC) Expected: 06/04/2024 (Approximate), Expires: 12/05/2024 S-TSH (Thyroid-Stimulati ng Hormone - Sensitive) Lab Routine Malignant Neoplasm Of Thyroid Papillary (HCC) Expected: 06/04/2024 (Approximate), Expires: 12/05/2024 Scheduled Referrals Name Type Priority Associated Diagnoses Order Schedule Endocrinology office visit (clinic) Outpatient Referral Routine Malignant Neoplasm Of Thyroid Papillary (HCC) Expected: 06/04/2024 (Approximate), Expires: 03/05/2025 documented as of this encounter Visit Diagnoses Diagnosis Malignant Neoplasm Of Thyroid Papillary (HCC) documented in this encounter Care Teams Field Specialist Relationship Specialty Start Date End Date Elsewhere, Pcp PCP - General Family Medicine 10/25/18 documented as of this encounter
--- OUTSIDE RECORDS SUMMARY | 2023-12-09 00:04 | XMS_ITS | Encounter Summary ---
Author Name Unknown Organization [facility] Address [address] [place] [address] Care Team Providers Care Front Desk Team Member Name Role Phone Elsewhere, Pcp Primary Care Provider Unavailabl e Reason for Visit * Reason Onset Date Comments concern for slow atrial flutter 12/02/2023 Encounter Details Date Type Department Care Team (Latest Contact Info) Description 12/02/2023 Clinical Communication Department of Cardiovascular Medicine in [place], [place] [address] [place] [phone] Renetta Tyler, R.N. concern for slow atrial flutter Social History Tobacco Use Types Packs/Day Years Used Date Smoking Tobacco: Never Passive Smoke Exposure: Past Smokeless Tobacco: Never Passive Exposure Comments:Gr owing up for Many years - Father Alcohol Use Standard Drinks/Week Comments No 0 (1 standard drink = 0.6 oz pur e alcohol) [facility] Utilities Answer Date Recorded In the past 12 months has [employer], gas, oil, or water [employer] threatened to shut off services in your [...] re latives? Once a week 05/31/2020 Attends Sikh Services Not on file 05/31 Active Member [...] Answer Date Recorded PHQ-2 Score 0 10/27/2023 [facility] [place] of Occupat ional Health - Occupational Stress [...] your living situation today? I have a [facility] place to live 11/29/2023 Education Answer [...] Notes * Telephone Encounter - Renetta Tyler RDeloris. - 12/02/2023 3:12 PM CST Images from the original note were not included. Yee- I am reviewing a remote from Mr. Khanna. It appears that at the time of this remote on 11-28-2022 at6:57 pm, he was in slow atrial flutter. The device did not record this episode as the rate of the flutter falls below the AF detection rate programmed in the device. I contacted [employer] technical support to have them review this EGM, and slow AF is a concern. I attempted to reach him, to request another remote, to see if he still presented with this rhythm.He has been sick with an upper respiratory infection, per notes. Please advise. Thanks! Renetta Tyler RN BLASTER documented in this encounter Plan of Treatment Upcoming Encounters Date Type Department Care Team (Late st Contact Info) Description 12/13/2023 8:50 AM SAND BLASTER Appointment Department of Laboratory Medicine and Pathology, [facility], in [place], [place] [address] [place] [phone] Natasha Mullins APRN, C.N.P., M.S., M.S.N. [address] [place] [phone] 12/13/2023 11:00 AM SAND BLASTER Office Visit Department of Cardiovascular Medicine in [place], [place] [address] [place] [address] Natasha Mullins APRN, Niranjan., M.S., M.S.N. [address] [place] [phone] 02/02/2024 9:15 AM CDT Appointment Department of Cardiovascular Diseases in [place], [place] [address] [place] [address] Fazal Reynoso M.D. [address] [place] [phone] documented as of this encounter Visit Diagnoses Not on filedocumented in this encounter Care Teams Front Desk Team Member Relationship Specialty Start Date End Date Elsewhere, Pcp PCP - General Family Medicine 10/25/18 documented as of this encounter
--- OUTSIDE RECORDS SUMMARY | 2023-12-09 00:04 | XMS_ITS | Encounter Summary ---
Author Name Unknown Organization [facility] Address [address] [place] [phone] Care Team Providers Care Personnel Training Officer Name Role Phone Elsewhere, Pcp Primary Care Provider Unavailabl e Reason for Visit * Reason Comments Med Refill Encounter Details Date Type Department Care Team ([facility] st Contact Info) Description 12/01/2023 Refill Department of Cardiovascular Medicine in [place], [place] [address] [place] [phone] Natasha Mullins APRN, C.N.P., M.S., M.S.N. [address] [place] [phone] Med Refill Social History Tobacco Use Types Packs/Day Years Used Date Smoking Tobacco: Never Passive Smoke Exposure: Past Smokeless Tobacco: Never Passive Exposure Comments:Gr owing up for Many years - Father Alcohol Use Standard Drinks/Week Comments No 0 (1 standard drink = 0.6 oz pur e alcohol) [facility] Utilities Answer Date Recorded In [...] Answer Date Recorded PHQ-2 Score 0 10/27/2023 [facility] of Occupat ional Health - Occupational Stress [...] your living situation today? I have a [facility] place to live 11/29/2023 Education Answer [...] encounter Miscellaneous Notes * Telephone Encounter - Samreen Disla - 12/01/2023 9:37 AM CST Nurse review: Unable to pend medication to provider: Requested Med not on patient's current Med List Name of Medication: Plavix Strength: 75 mg Frequency: 1 tab daily Last seen: 11-15-23 Pharmacy: [facility] [address] [place] [address] ATTENDANT documented in this encounter Plan of Treatment Upcoming Encounters Date Type Department Care Team (Late st Contact Info) Description 12/13/2023 8:50 AM CURB ATTENDANT Appointment Department of Laboratory Medicine and Pathology, [facility], in [place], [place] [address] [place] [address] Natasha Mullins APRN, C.N.P., M.S., M.S.N. [address] [place] [phone] 12/13/2023 11:00 AM CURB ATTENDANT Office Visit Department of Cardiovascular Medicine in [place], [place] [address] [place] [phone] Natasha Mullins APRN, C.N.P., M.S., M.S.N. [address] [place] [phone] 02/02/2024 9:15 AM CDT Appointment Department of Cardiovascular Diseases in [place], [place] [address] [place] [phone] Fazal Reynoso M.D. [address] [place] [phone] documented as of this encounter Visit Diagnoses Not on filedocumented in this encounter Care Teams Personnel Training Officer Relationship Specialty Start Date End Date Elsewhere, Pcp PCP - General Family Medicine 10/25/18 documented as of this encounter
--- OUTSIDE RECORDS SUMMARY | 2023-12-09 00:04 | XMS_ITS | Encounter Summary ---
Author Name Unknown Organization [facility] Address [address] [place] [address] Care Team Providers Care Service Technician Name Role Phone Elsewhere, Pcp Primary Care Provider Unavailabl e Encounter Details Date Type Department Care Team (Latest Contact Info) Description 12/05/2023 12:09 PM ACID OPERATOR - 12/05/2023 12:43 PM ACID OPERATOR Hospital Encounter Department of Laboratory Medicine and Pathology, [facility] in [place], [place] [address] [place] [phone] Loni Wu M.D. [address] [place] [phone] Malignant Neoplasm Of Thyroid Papillary (HCC); Cardiomyopathy Ischemic Discharge Disposition: Home or Self Care Social History Tobacco Use Types Packs/Day Years Used Date Smoking Tobacco: Never Passive Smoke Exposure: Past Smokeless Tobacco: Never Passive Exposure Comments:Gr owing up for Many years - Father Alcohol Use Standard Drinks/Week Comments No 0 (1 standard drink = 0.6 oz pur e alcohol) [facility] Utilities Answer Date Recorded In the [...] re latives? Once a week 05/31/2020 Attends Islam Services Not on file 05/31 Active Member [...] Answer Date Recorded PHQ-2 Score 0 10/27/2023 [facility] [place] [facility] of Occupat ional Health - [...] your living situation today? I have a [facility] place to live 11/29/2023 Education Answer [...] st Contact Info) Description 12/13/2023 8:50 AM ACID OPERATOR Appointment Department of Laboratory Medicine and Pathology, [facility] in [place], [place] [address] [place] [phone] Natasha Mullins APRN, Radha.N.P., M.S., M.S.N. [address] [place] [phone] 12/13/2023 11:00 AM ACID OPERATOR Office Visit Department of Cardiovascular Medicine in [place], [place] [address] [place] [phone] Natasha Mullins APRN, Radha.N.Franklin., M.S., M.S.N. [address] [place] [phone] 02/02/2024 9:15 AM CDT Appointment Department of Cardiovascular Diseases in [place], [place] [address] [place] [phone] Fazal Reynoso M.D. [address] [place] [phone] documented as of this encounter Procedures Procedure Name Priority Date/Time Associated Diagnosis Comments LIPID PANEL, S Routine 12/05/2023 12:19 PM ACID OPERATOR Cardiomyopathy Ischemic THYROGLOBULIN, TM, S Routine 12/05/2023 12:19 PM ACID OPERATOR Malignant Neoplasm Of Thyroid Papillary (HCC) THYROID-STIMULATING HORMONE-SENSITIVE (S-TSH) Routine 12/05/2023 12:19 PM ACID OPERATOR Malignant Neoplasm Of Thyroid Papillary (HCC) T4 (THYROXINE), FREE, S Routine 12/05/2023 12:19 PM ACID OPERATOR Malignant Neoplasm Of Thyroid Papillary (HCC) documented in this encounter Results * Lipid Panel (12/05/2023 12:19 PM ACID OPERATOR) Triglycerides 89 mg/dL 12/05/2023 1:38 PM ACID OPERATOR DTL Comment: ----REFERENCE VALUE---- Normal: <150 mg/dL Borderline High: 150-199 mg/dL High: 200-499 mg/dL Very High: > or =500 mg/dL Cholesterol, Total 162 mg/dL 2023 1:38 PM ACID OPERATOR DTL Comment: ----REFERENCE VALUE---- Desirable: < 200 mg/dL Borderline High: 200 - 239 mg/dL High: > or = 240 mg/dL Cholesterol, LDL, Calculated 82 mg/dL 12/05/2023 1:38 PM ACID OPERATOR DTL Comment: ----REFERENCE VALUE---- Desirable: <100 mg/dL Above Desirable: 100-129 mg/dL Borderline High: 130-159 mg/dL High: 160-189 mg/dL Very High: >=190 mg/dL ----ADDITIONAL INFORMATION---- LDL cholesterol calculated using the Rodriguez/NIH equation. Cholesterol, HDL, S 64 >=40 mg/dL 12/05/2023 1:38 PM ACID OPERATOR DTL Cholesterol, Non-HDL, Calculated 98 mg/dL 12/05/2023 1:38 PM ACID OPERATOR DTL Comment: ----REFERENCE VALUE---- Desirable: <130 mg/dL Above Desirable: 130-159 mg/dL Borderline High: 160-189 mg/dL High: 190-219 mg/dL Very High: > or =220 mg/dL Fasting (8 HR or more) No 12/05/2023 1:03 PM ACID OPERATOR DTL Blood (Blood, Venous) 12/05/2023 12:19 PM ACID OPERATOR 12/05/2023 1:03 PM ACID OPERATOR Eugene Slaughter M.D., Ph.D. LAB BLOO D ADD-ON Performing Organization Address City/[facility]/ZIP Co de Phone Number [facility] [address] [place] [address] * (ABNORMAL) T4 (Thyroxine), Free (12/05/2023 12:19 PM ACID OPERATOR) T4 (Thyroxine), Free, S 1.8(H) 0.9 - 1.7 ng/dL 12/05/2023 1:38 PM ACID OPERATOR DTL Blood (Blood, Venous) 12/05/2023 12:19 PM ACID OPERATOR 12/05/2023 1:03 PM ACID OPERATOR Loni Wu M.D. LAB BLOOD ADD-ON Performing Organization Address City/[facility]/ZIP Co de Phone Number [facility] [address] [place] [address] * (ABNORMAL) Thyroglobulin, Tumor Marker (12/05/2023 12:19 PM ACID OPERATOR) Thyroglobulin Antibody, S 7.5(H) <1.8 IU/mL 12/05/2023 7:[address] [facility] Thyroglobulin, Tumor Marker, S 0.4(H) ng/mL 12/05/2023 6:[address] [facility] Comment: ----REFERENCE VALUE---- Athyrotic <0.1 Intact Thyroid <=33 Thyroglobulin Interpretation SEE COMMENT 12/05/2023 7:[address] [facility] Comment: Quantitation of thyroglobulin may be unreliable [...] testing methods are immunoenzymatic assays manufactured by [employer] and performed on the [employer] DXI 800. Values obtained from different assay methods or kits may be different and cannot be used interchangeably. The results cannot be interpreted as absolute evidence for the presence or absence of malignant disease. Blood (Blood, Venous) 12/05/2023 12:19 PM ACID OPERATOR 12/05/2023 5:56 PM ACID OPERATOR Loni Wu M.D. LAB BLOOD ADD-ON [facility] [address] [place] [address] [facility] [address] [place] [id number] * S-TSH (Thyroid-Stimulating Hormone - Sensitive) (12/05/2023 12:19 PM ACID OPERATOR) TSH, Sensitive 0.5 0.3 - 4.2 mIU/L 12/05/2023 1:38 PM ACID OPERATOR DTL Blood (Blood, Venous) 12/05/2023 12:19 PM ACID OPERATOR 12/05/2023 1:03 PM ACID OPERATOR Loni Wu M.D. 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
--- OUTSIDE RECORDS SUMMARY | 2023-12-09 00:04 | XMS_ITS | Encounter Summary ---
Author Name Unknown Organization [facility] Address [address] [place] [address] Care Team Providers Care Sign Language Interpreter Name Role Phone Elsewhere, Pcp Primary Care Provider Unavailabl e Reason for Referral * Outpatient (Routine) - Closed Specialty Diagnoses / Procedures Referred By Miguel arzola Referred To Contact Diagnoses Malignant Neoplasm Of Thyroid Papillary (HCC) Procedures US Head Neck Soft Tissue Loni Wu M.D. [address] [place] [address] [facility] Referral ID Status Reason Start Date Expiration Date Visits Re quested Visits Authorized [id number] Closed 11/26/2022 11/26/2023 1 1 ORK ANALYST Reason for Visit * Outpatient (Routine) - Closed Specialty Diagnoses / Procedures Referred By Miguel arzola Referred To Contact Diagnoses Malignant Neoplasm Of Thyroid Papillary (HCC) Procedures US Head Neck Soft Tissue Loni Wu M.D. [address] [place] [address] [facility] Referral ID Status Reason Start Date Expiration Date Visits Re quested Visits Authorized [id number] Closed 11/26/2022 11/26/2023 1 1 Encounter Details Date Type Department Care Team (Latest Contact Info) Description 12/05/2023 12:44 PM NETWORK ANALYST - 12/05/2023 11:59 PM NETWORK ANALYST Hospital Encounter Department of Radiology, [facility], in [place], [place] [address] [place] [address] Loni Wu M.D. [address] [place] [address] Malignant Neoplasm Of Thyroid Papillary (HCC) Discharge Disposition: Home or Self Care Social History Tobacco Use Types Packs/Day Years Used Date Smoking Tobacco: Never Passive Smoke Exposure: Past Smokeless Tobacco: Never Passive Exposure Comments:Gr owing up for Many years - Father Alcohol Use Standard Drinks/Week Comments No 0 (1 standard drink = 0.6 oz pur e alcohol) [facility] Utilities Answer Date Recorded In the [...] Answer Date Recorded PHQ-2 Score 0 10/27/2023 [facility] - Occupational Stress Questionnaire Answer Date Recorded [...] 1 puff daily as needed. 0 08/25/2015 levothyroxine (SYNTHROID, LEVOTHROID) 175 mcg tablet Take 1 tablet (175 mcg total) by mouth daily with breakfast. 90 tablet 3 12/05/2023 lisinopriL (PRINIVIL,ZESTRIL) 40 mg tablet Take 1 [...] st Contact Info) Description 12/13/2023 8:50 AM NETWORK ANALYST Appointment Department of Laboratory Medicine and Pathology, [facility] in [place], [place] [address] [place] [phone] Natasha Mullins APRN, Radha.NLibrado., M.S., M.S.N. [address] [place] [phone] 12/13/2023 11:00 AM NETWORK ANALYST Office Visit Department of Cardiovascular Medicine in [place], [place] [address] [place] [phone] Natasha Mullins APRN, Radha.N.Franklin., M.S., M.S.N. [address] [place] [phone] 02/02/2024 9:15 AM CDT Appointment Department of Cardiovascular Diseases in [place], [place] [address] [place] [phone] Fazal Reynoso M.D. [address] [place] [phone] documented as of this encounter Procedures Procedure Name Priority Date/Time Associated Diagnosis Comments US HEAD NECK SOFT TISSUE RAD - Routine (most inpatients and all outpatients) 12/05/2023 1:49 PM NETWORK ANALYST Malignant Neoplasm Of Thyroid Papillary (HCC) documented in this encounter Results * US Head Neck Soft Tissue (12/05/2023 1:49 PM NETWORK ANALYST) Anatomical Region Laterality Modality Head and Neck, Ultrasound RS T LOS, Ultrasound ARZ LOS, Ultrasound FLA LOS N/A Ultrasound Impressions 12/05/2023 2:06 PM NETWORK ANALYST 1. Slight enlargement of two left thyroid bed nodules, consistent with recurrent disease. 2. A tiny hypoechoic nodule in the right thyroid bed is of doubtful significance; attention on follow-up. 3. No cervical lymphadenopathy. Narrative 12/05/2023 2:06 PM NETWORK ANALYST EXAM: US HEAD NECK SOFT TISSUE COMPARISON: [...] No cervical lymphadenopathy. Loni ALVARADO US PROCEDURES documented in this encounter Visit Diagnoses Diagnosis Malignant Neoplasm Of Thyroid Papillary (HCC) documented in this encounter Care Teams Sign Language Interpreter Relationship Specialty Start Date End Date Elsewhere, Pcp PCP - General Family Medicine 10/25/18 documented as of this encounter
--- OUTSIDE RECORDS SUMMARY | 2023-12-09 00:05 | XMS_ITS | Encounter Summary ---
Author Name Unknown Organization [facility] Address [address] [place] [address] Care Team Providers Care Reclamation Worker Name Role Phone Elsewhere, Pcp Primary Care Provider Unavailabl e Encounter Details Date Type Department Care Team (Late st Contact Info) Description 11/28/2023 8:45 PM IT DIRECTOR Ancillary Procedure [facility] [place] [facility] [address] [place] [phone] Hector Barragan M.D. [address] [place] [address] Social History Tobacco Use Types Packs/Day Years Used Date Smoking Tobacco: Never Passive Smoke Exposure: Past Smokeless Tobacco: Never Passive Exposure Comments:Gr owing up for Many years - Father Alcohol Use Standard Drinks/Week Comments No 0 (1 standard drink = 0.6 oz pur e alcohol) [facility] Utilities Answer Date Recorded In the past 12 months has [facility] [employer], gas, oil, or water [employer] threatened to shut off services in your [...] re latives? Once a week 05/31/2020 Attends Gnosticist Services Not on file 05/31 Active Member [...] Answer Date Recorded PHQ-2 Score 0 10/27/2023 [facility] [place] of Occupat ional Health - Occupational Stress [...] your living situation today? I have a [facility] place to live 11/29/2023 Education Answer [...] st Contact Info) Description 12/13/2023 8:50 AM IT DIRECTOR Appointment Department of Laboratory Medicine and Pathology, [facility] in [place], [place] [address] [place] [phone] Natasha Mullins APRN, Radha.N.P., M.S., M.S.N. [address] [place] [phone] 12/13/2023 11:00 AM IT DIRECTOR Office Visit Department of Cardiovascular Medicine in [place], [place] [address] [place] [phone] Natasha Mullins APRN, Radha.N.Franklin., M.S., M.S.N. [address] [place] [phone] 02/02/2024 9:15 AM CDT Appointment Department of Cardiovascular Diseases in [place], [place] [address] [place] [address] Fazal Reynoso M.D. [address] [place] [phone] documented as of this encounter Procedures Procedure Name Priority Date/Time Associated Diagnosis Comments FOCUSED CARDIAC ULTRASOUND Routine 11/28/2023 8:45 PM IT DIRECTOR documented in this encounter Results * POCUS Cardiac (11/28/2023 8:45 PM IT DIRECTOR) 11/28/2023 8:45 PM IT DIRECTOR Narrative QPATH - 11/28/2023 8:45 PM IT DIRECTOR Cardiac ?[id number] ULTRASOUND - EMERGENCY MEDICINE - [facility]: ?Exam Type: ??Diagnostic ?Indication(s) for Exam: ?Dyspnea [...] Note Hector Barragan M.D. - 12/04/2023 Cardiac [id number] ULTRASOUND - EMERGENCY MEDICINE - [facility]: Exam Type: Diagnostic Indication(s) for Exam: Dyspnea [...] Barragan M.D. PROCEDURE/MINOR SURG ICAL ORDERABLES QPATH documented in this encounter Visit Diagnoses Not on filedocumented in this encounter Additional Health Concerns Infection Onset Date Last Indicated Resolved Time COVID19 Pending 11/28/2023 11/28/2023 11/28/2023 9 :33 PM IT DIRECTOR documented as of this encounter Care Teams Reclamation Worker Relationship Specialty Start Date End Date Elsewhere, Pcp PCP - General Family Medicine 10/25/18 documented as of this encounter
--- OUTSIDE RECORDS SUMMARY | 2023-12-09 00:05 | XMS_ITS | Encounter Summary ---
Author Name Unknown Organization [facility] Address [address] [place] [address] Care Team Providers Care Vibration Engineer Name Role Phone Elsewhere, Pcp Primary Care Provider Unavailabl e Reason for Visit * Reason Onset Date Comments VT recorded on pacemaker 11/28/2023 Encounter Details Date Type Department Care Team (Latest Contact Info) Description 11/28/2023 Clinical Communication Department of Cardiovascular Medicine in [place], [place] [address] [place] [phone] Sofie Barba, RCarmineN. VT recorded on pacemaker Social History Tobacco Use Types Packs/Day Years Used Date Smoking Tobacco: Never Passive Smoke Exposure: Past Smokeless Tobacco: Never Passive Exposure Comments:Gr owing up for Many years - Father Alcohol Use Standard Drinks/Week Comments No 0 (1 standard drink = 0.6 oz pur e alcohol) [facility] Utilities Answer Date Recorded In the past 12 months has [employer], gas, oil, or water [employer] threatened to shut off services in your [...] re latives? Once a week 05/31/2020 Attends [employer] Services Not on file 05/31 Active Member [...] Date Recorded PHQ-2 Score 0 10/27/2023 [facility] of Occupat ional Health - Occupational Stress [...] your living situation today? [facility] live 11/29/2023 Education Answer [...] encounter Miscellaneous Notes * Telephone Encounter - Sofie Barba R.N. - 11/28/2023 8:52 AM CIRCLE BEVELER Communication to the attention of Dr. 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 Significant findings are asfollows: VENTRICULAR ARRHYTHMIAS: Since 11/02/2023, one ventricular high rate episode recorded. Available EGM was reviewed and appears to show appropriate sensing and detection of 10 seconds of monomorphic non-sustained VT at 214 bpm on 11/25 at 4:49 pm. I contacted the patient regarding this episode. He states he was working to plug in his computer battery and experienced brief lightheadedness for ~10 seconds. Denies syncope or pre-syncope, and states that he thought that the computer had caused pacemaker interference, but this is not observed in the EGM. Patient is aware he has a pacemaker (not ICD) and there are no rhythm termination capabilities on a pacemaker. Dr. Slaughter was informed of the above symptomatic VT recorded on this pacemaker for further recommendations. Please reach out to the patient if you have any new recommendations considering the above. LE BEVELER documented in this encounter Plan of Treatment Upcoming Encounters Date Type Department Care Team (Late st Contact Info) Description 12/13/2023 8:50 AM CIRCLE BEVELER Appointment Department of Laboratory Medicine and Pathology, [facility] in [place], [place] [address] [place] [phone] Natasha Mullins APRN, C.N.P., M.S., M.S.N. [address] [place] [phone] 12/13/2023 11:00 AM CIRCLE BEVELER Office Visit Department of Cardiovascular Medicine in [place], [place] [address] [place] [phone] Natasha Mullins APRN, Niranjan., M.S., M.S.N. [address] [place] [phone] 02/02/2024 9:15 AM CDT Appointment Department of Cardiovascular Diseases in [place], [place] [address] [place] [phone] Fazal Reynoso M.D. [address] [place] [phone] documented as of this encounter Visit Diagnoses Not on filedocumented in this encounter Additional Health Concerns Infection Onset Date Last Indicated Resolved Time COVID19 Pending 11/28/2023 11/28/2023 11/28/2023 9 :33 PM CIRCLE BEVELER documented as of this encounter Care Teams Vibration Engineer Relationship Specialty Start Date End Date Elsewhere, Pcp PCP - General Family Medicine 10/25/18 documented as of this encounter
--- OUTSIDE RECORDS SUMMARY | 2023-12-09 00:05 | XMS_ITS | Encounter Summary ---
Author Name Unknown Organization [facility] Address [address] [place] [address] Care Team Providers Care Learning Support Assistant Name Role Phone Elsewhere, Pcp Primary Care Provider Unavailabl e Encounter Details Date Type Department Care Team (Latest Contact Info) Description 11/28/2023 4:00 AM SEAMARK ADVANCED OPERATOR MAINTAINER - 11/28/2023 8:36 PM SEAMARK ADVANCED OPERATOR MAINTAINER Hospital Encounter Department of Cardiovascular Diseases in [place], [place] [address] [place] [phone] Heraclio Schulz M.B.B.S. [address] [place] [address] Encounter For Checking And Testing Of Cardiac [...] 0.6 oz pur e alcohol) [facility] Utilities Answer Date Recorded In the [...] re latives? Once a week 05/31/2020 Attends [employer] Services Not on file 05/31 Active Member [...] Answer Date Recorded PHQ-2 Score 0 10/27/2023 [facility] of Occupat ional Health - Occupational [...] your living situation today? [facility] 11/29/2023 Education Answer Date [...] at bedtime. 60 capsule 11 11/22/2023 11/21/2024 cefdinir (OMNICEF) 300 mg capsule Take 1 capsule (300 mg total) by mouth 2 (two) times a day before breakfast and dinner for 7 doses. 7 capsule 0 11/30/2023 12/04/2023 doxycycline monohydrate (ADOXA) 100 mg tablet Take 1 tablet (100 mg total) by mouth 2 (two) times a day before breakfast and dinner for 7 doses. 7 tablet 0 11/30/2023 12/04/2023 clopidogreL (PLAVIX) 75 mg tablet Take 75 mg by mouth daily. 0 11/30/2023 levothyroxine (SYNTHROID, LEVOTHROID) 175 mcg tablet take one tablet by mouth every morning before breakfast 90 tablet 3 11/24/2023 12/05/2023 documented as of this encounter Plan of Treatment Upcoming Encounters Date Type Department Care Team (Late st Contact Info) Description 12/13/2023 8:50 AM SEAMARK ADVANCED OPERATOR MAINTAINER Appointment Department of Laboratory Medicine and Pathology, [facility], in [place], [place] [address] [place] [phone] Natasha Mullins APRN, C.N.P., M.S., M.S.N. [address] [place] [phone] 12/13/2023 11:00 AM SEAMARK ADVANCED OPERATOR MAINTAINER Office Visit Department of Cardiovascular Medicine in [place], [place] [address] [place] [phone] Natasha Mullins APRN, C.N.P., M.S., M.S.N. [address] [place] [phone] 02/02/2024 9:15 AM CDT Appointment Department of Cardiovascular Diseases in [place], [place] [address] [place] [phone] Fazal Reynoso M.D. [address] [place] [phone] Pending Results Name Type Priority Associated Diagnoses Date/Time Cardiac Device Interrogation Implantable Cardiac Device Routine Encounter For Checking And Testing Of Cardiac Pacemaker Pulse Generator Battery 12/02/2023 3:21 PM SEAMARK ADVANCED OPERATOR MAINTAINER documented as of this encounter Procedures Procedure Name Priority Date/Time Associated Diagnosis Comments CAR CARDIAC DEVICE INTERROGATION Routine 12/02/2023 3:21 PM SEAMARK ADVANCED OPERATOR MAINTAINER Encounter For Checking And Testing Of Cardiac [...] is reporting no episodes. I also contacted [employer] to evaluate rhythm as well. The consensus was likely slow Atrialflutter. I sent a message to Dr. Slaughter, whom he saw on 11-15-2023. VENTRICULAR ARRHYTHMIAS: No episodes. PVC [place]: 99.6/hr BATTERY LONGEVITY: Expected battery longevity trends reviewed and arestable and consistent with device settings and use. SUMMARY: All device function appears normal. FOLLOW UP: Next routine follow-up will be in clinic on 02-02-2024. DEVICE RN: Renetta Tyler RN Provider statement: This patient underwent device interrogation. I agreethat the device interrogation was medically indicated to provideappropriate care and continue routine device interrogations asindicated. documented in this encounter Visit Diagnoses Diagnosis Encounter For Checking And Testing Of Cardiac Pacemaker Pulse Generator Battery documented in this encounter Care Teams Learning Support Assistant Relationship Specialty Start Date End Date Elsewhere, Pcp PCP - General Family Medicine 10/25/18 documented as of this encounter
--- OUTSIDE RECORDS SUMMARY | 2023-12-09 00:05 | XMS_ITS | Encounter Summary ---
Author Name Unknown Organization [facility] Address [address] [place] [address] Care Team Providers Care Hide Buyer Name Role Phone Elsewhere, Pcp Primary Care Provider Unavailabl e Encounter Details Date Type Department Care Team (Late st Contact Info) Description 11/29/2023 1:15 PM FISH CUTTER Ancillary Procedure [facility] Emergency Department [address] [place] [address] Hector Barragan M.D. [address] [place] [phone] Social History Tobacco Use Types Packs/Day Years Used Date Smoking Tobacco: Never Passive Smoke Exposure: Past Smokeless Tobacco: Never Passive Exposure Comments:Gr owing up for Many years - Father Alcohol Use Standard Drinks/Week Comments No 0 (1 standard drink = 0.6 oz pur e alcohol) [facility] Utilities Answer Date Recorded In the past 12 months has [facility] [employer], gas, oil, or water [employer] threatened to shut off services in your [...] re latives? Once a week 05/31/2020 Attends [employer] Services Not on file 05/31 Active Member [...] Answer Date Recorded PHQ-2 Score 0 10/27/2023 [facility] of Occupat ional Health - Occupational Stress [...] your living situation today? I have a [facility] place to live 11/29/2023 Education Answer [...] st Contact Info) Description 12/13/2023 8:50 AM FISH CUTTER Appointment Department of Laboratory Medicine and Pathology, [facility] in [place], [place] [address] [place] [phone] Natasha Mullins APRN, Radha.N.P., M.S., M.S.N. [address] [place] [phone] 12/13/2023 11:00 AM FISH CUTTER Office Visit Department of Cardiovascular Medicine in [place], [place] [address] [place] [phone] Natasha Mullins APRN, Radha.N.[place]lin., M.S., M.S.N. [address] [place] [phone] 02/02/2024 9:15 AM CDT Appointment Department of Cardiovascular Diseases in [place], [place] [address] [place] [address] Fazal Reynoso M.D. [address] [place] [phone] documented as of this encounter Procedures Procedure Name Priority Date/Time Associated Diagnosis Comments THORACIC ULTRASOUND Routine 11/29/2023 1 :13 PM FISH CUTTER documented in this encounter Results * POCUS Thoracic (11/29/2023 1:13 PM FISH CUTTER) 11/28/2023 8:45 PM FISH CUTTER Narrative [facility] - 11/28/2023 8:45 PM FISH CUTTER Lung ?[id number] ULTRASOUND - EMERGENCY MEDICINE - [facility]: ?Exam Type: ??Diagnostic ?Indication(s) for Exam: [...] Note Hector Barragan M.D. - 11/29/2023 Lung [id number] ULTRASOUND - EMERGENCY MEDICINE - [facility]: Exam Type: Diagnostic Indication(s) for Exam: [...] filedocumented in this encounter Care Teams Hide Buyer Relationship Specialty Start Date End Date Elsewhere, Pcp PCP - General Family Medicine 10/25/18 documented as of this encounter
--- OUTSIDE RECORDS SUMMARY | 2023-12-09 00:05 | XMS_ITS | Encounter Summary ---
Author Name Unknown Organization [facility] Address [address] [place] [address] Care Team Providers Care Venetian Blind Cleaner Name Role Phone Elsewhere, Pcp Primary Care Provider Unavailabl e Reason for Visit * Reason Comments Respiratory Distress Encounter Details Date Type Department Care Team (Latest Contact Info) Description 11/28/2023 8:37 PM SALES AND MANAGEMENT TRAINEE - 11/30/2023 1:48 PM SALES AND MANAGEMENT TRAINEE Hospital Encounter [facility], [facility], [facility], Third Floor [address] [place] [phone] Hector Barragan M.D. [address] [place] [phone] Alonzo Royal M.D. [address] [place] [phone] Joseph Rai M.D. [address] [place] [phone] Tamie Rodriguez M.B.B.S. [address] [place] [phone] Pneumonia (Primary Dx); Hypoxia; Respiratory Failure (HCC) [...] re latives? Once a week 05/31/2020 Attends [employer] Not on file 05/31 Active Member [...] Date Recorded PHQ-2 Score 0 10/27/2023 [facility] Salters of Occupat ional Health - Occupational Stress [...] your living situation today? I have a [facility] place to live 11/29/2023 Education Answer [...] Comments Blood Pressure 124/75 11/30/2023 8:00 AM SALES AND MANAGEMENT TRAINEE Pulse 78 11/30/2023 8:00 AM SALES AND MANAGEMENT TRAINEE Temperature 36.2 ??C (97.2 ??F) 11/30/2023 8:00 AM CS T Respiratory Rate 17 11/30/2023 8:00 AM SALES AND MANAGEMENT TRAINEE Oxygen Saturation 95% 11/30/2023 8:00 AM SALES AND MANAGEMENT TRAINEE Inhaled Oxygen Concentration - - Weight 80.6 kg (177 lb 11.1 oz) 11/29/2023 3:45 AM SALES AND MANAGEMENT TRAINEE Height 175 cm (5' 8.9) 11/28/2023 11:4 5 PM SALES AND MANAGEMENT TRAINEE Body Mass Index 26.32 11/28/2023 11:45 PM SALES AND MANAGEMENT TRAINEE documented in this encounter Discharge Summaries * Zeinab Alba M.D. - 11/30/2023 6:19 AM CST Images from the original note were not included. DISCHARGE SUMMARY Discharge Provider: Joseph Rai M.D. Primary Care Providers: Elsewhere, Pcp (General) No address on file Discharge Provider Team: [facility] Medicine 2 ([facility]) Primary Care Provider Phone Number: None Primary Care Provider Fax Number: None Admission Date: 11/28/2023 Discharge Date: 11/30/2023 PRINCIPAL DIAGNOSIS Pneumonia SECONDARY DIAGNOSES Principal Problem: Pneumonia Resolved Problems: Respiratory Failure (HCC) REASON FOR ADMISSION Pneumonia HOSPITAL COURSE Mr. Khanna is an 78-year-old gentleman with a past medical history significant for ischemic cardiomyopathy (LVEF 45 50%, October 2023), coronary artery disease (status post PCI frozen 15 LAD x2 withcomplete total occlusion proximal RCA), moderate , high-degree AV block (status post dual-chamberpacemaker placed October 2023), hypertension, hyperlipidemia, metastatic and recurrent papillary thyroid carcinoma (diagnosed 2013, status post total thyroidectomy and radioactive iodine with recurrence in 2014), CKD 3, and indolent B-cell lymphoma who presented to the emergency department for progressive dyspnea x5 days. In the emergency department, he was afebrile but demonstrated tachycardia and tachypnea with normaloxygen saturations on BiPAP. CTA was negative for pulmonary embolism and the patient was admitted to the medical ICU for further management with initial lactate 2.17 after being started on community-acquired pneumonia coverage. On arrival to the medical ICU, the patient was hemodynamically stable with FiO2 30% utilizing CPAP,appearing comfortable. He was transitioned to nasal cannula and was observed for 8 hours in the medical ICU with stable respiratory status. He was continued on for any acquired pneumonia coverage with ceftriaxone and doxycycline. Pulmonary hygiene was initiated with DuoNebs 4 times daily. After remaining hemodynamically stable in the intensive care unit, the patient was transferred to the floor. He was quickly transitioned to room air and continued saturating well. His blood cultures remained with no growth. His home carvedilol was restarted given his hemodynamic stability. He was continued on ceftriaxone and doxycycline for CAP coverage. He was deemed stable for discharge to home on 11/30 in stable and improved condition. He will be transitioned to oral antibiotics with doxycycline and cefdinir, given reported penicillin allergy. Thiswill be a 5 day course, through 12/03. ACTIVE ISSUES REQUIRING FOLLOW UP Instructions for patient -continue cefdinir and doxycycline through 12/03 -follow-up with your primary care provider DISCHARGE PHYSICAL EXAM General: Alert, interactive, not acutely ill. Skin: No rashes or lesions. Eyes: Pupils equal and round. Sclera anicteric. Lungs: Decreased breath sounds in bilateral lower lung barboza. No increased work of breathing on room air Heart: Regular rate and rhythm. No murmurs appreciated. No lower extremity edema. Abdomen: Soft, flat, bowel sounds normoactive, nontender, nondistended, no palpable masses or organomegaly. Neuro: Cranial nerves II-XII intact. Strength 5/5 in all extremities. Mental: Mood and affect congruent. Alert and oriented. Attention intact. No evidence of disorganized thinking. Reliable history track layer head. MEDICATION CHANGES THIS ADMISSION Medications stopped: None Medications changed: None Medications added: Doxycycline 100 mg twice daily through 12/03 PM Cefdinir 300 mg twice daily through 12/03 PM DISCHARGE MEDICATIONS Discharge Medications TAKE these medications acetaminophen 500 mg capsule Commonly known as: TYLENOL Take 2 capsules (1,000 mg total) by mouth every 6 (six) hours as needed for pain. albuterol 90 mcg/actuation inhaler Inhale 1-2 puffs as needed for wheezing or shortness of breath. aspirin [address] tablet Take 81 mg by mouth daily. Take for life. calcium carbonate 500 mg (200 mg calcium) chewable tablet Commonly known as: TUMS Chew 1 tablet 2 (two) times a day as needed for indigestion or heartburn. carvediloL 25 mg tablet Commonly known as: COREG Take 1 tablet (25 mg total) by mouth 2 (two) times a day with meals. cefdinir 300 mg capsule Commonly known as: OMNICEF Take 1 capsule (300 mg total) by mouth 2 (two) times a day before breakfast and dinner for 7 doses. cetirizine 10 mg tablet Commonly known as: ZyrTEC Take 10 mg by mouth daily. doxycycline monohydrate 100 mg tablet Commonly known as: ADOXA Take 1 tablet (100 mg total) by mouth 2 (two) times a day before breakfast and dinner for 7 doses. finasteride 5 mg tablet Commonly known as: PROSCAR Take 1 tablet (5 mg total) by mouth daily. fluticasone propion-salmeteroL 250-50 mcg/dose diskus inhaler Inhale 1 puff daily as needed. levothyroxine 175 mcg tablet Commonly known as: SYNTHROID, LEVOTHROID take one tablet by mouth every morning before breakfast lisinopriL 40 mg tablet Commonly known as: PRINIVIL,ZESTRIL Take 1 tablet (40 mg total) by mouth daily. montelukast 10 mg tablet Commonly known as: SINGULAIR Take 1 tablet by mouth at bedtime. multivitamin tablet Take 1 tablet by mouth daily. rosuvastatin 40 mg tablet Commonly known as: Crestor Take 1 tablet (40 mg total) by mouth daily. tamsulosin 0.4 mg 24 hr capsule Commonly known as: FLOMAX Take 2 capsules (0.8 mg total) by mouth at bedtime. PROCEDURES / TEST RESULTS Recent Results (from the past 24 hour(s)) Glucose, POCT Collection Time: 11/29/23 4:27 PM Result Value Glucose, POCT, B 198 (H) Site Capillary Last Intake <1 hour Glucose, POCT Collection Time: 11/29/23 9:47 PM Result Value Glucose, POCT, B 126 Site Capillary Last Intake 2-3 hours CBC without Differential Collection Time: 11/30/23 8:14 AM Result Value Hemoglobin 11.7 (L) Hematocrit 34.6 (L) Erythrocytes 3.78 (L) MCV 91.5 RBC Distrib Width 14.3 Platelet Count 189 Leukocytes 9.3 Basic Metabolic Panel Collection Time: 11/30/23 8:14 AM Result Value Potassium, S 4.0 Sodium, S 134 (L) Chloride, S 99 Bicarbonate, S 24 Anion Gap 11 BUN (Blood Urea Nitrogen), S 16 Creatinine 0.78 Estimated GFR (eGFR) >90 Calcium, Total, S 8.6 (L) Glucose, S 100 Glucose, POCT Collection Time: 11/30/23 8:15 AM Result Value Glucose, POCT, B 120 Last Intake 3-4 hours TEST RESULTS PENDING AT DISCHARGE Pending Labs Order Current Status Bacteria / Danna Culture, Blood #1 Preliminary result Bacteria / Danna Culture, Blood #2 Preliminary result CONSULTS ORDERED None FOLLOW UP APPOINTMENTS Scheduled Appointments 12/05/2023 12:30 PM LAB BLOOD [facility] Laboratory Medicine 12/05/2023 12:45 PM US ROGO 03 RM 8 Radiology 12/05/2023 3:30 PM Loni Wu M.D. Endocrinology 02/02/2024 9:15 AM [facility] Cardiovascular Disease 05/02/2024 4:00 AM [facility] [place] Cardiovascular Disease DISCHARGE DISPOSITION Home or Self Care [1] CONDITION AT DISCHARGE Stable and improved S AND MANAGEMENT TRAINEE * Che Jasso, R.N. - 11/29/2023 5:21 PM CST Patient Transfer Note Patient transferred to: [facility] room 255 Accompanied by: rigger Report called? YES Nurse receiving report: Tatum Carballo RN Belongings sent with patient? YES Current vital signs: BP 111/68 (BP Location: Right arm;Upper, Patient Position: Sitting) Pulse 80 Temp 37.2 ??C (Axillary) Resp 20 Ht 175 cm Wt 80.6 kg SpO2 96% BMI 26.32 kg/m?? Critical Care Service aware of current vital signs? YES Electronically signed by: Che Jasso R.N. 11/29/23 5:26 PM SALES AND MANAGEMENT TRAINEE S AND MANAGEMENT TRAINEE * Sarah Banks M.D., M.S. - 11/29/2023 4:00 PM CST CCM1 TRANSFER NOTE REASON FOR TRANSFER No longer requiring ICU level cares CONDITION AT TRANSFER Stable. PHYSICAL EXAM Please see physical exam in the progress note from today. SUMMARY OF CARE Mr. Khanna is an 78-year-old gentleman with a past medical history significant for ischemic cardiomyopathy (LVEF 45 50%, October 2023), coronary artery disease (status post PCI frozen 15 LAD x2 withcomplete total occlusion proximal RCA), moderate , high-degree AV block (status post dual-chamberpacemaker placed October 2023), hypertension, hyperlipidemia, metastatic and recurrent papillary thyroid carcinoma (diagnosed 2013, status post total thyroidectomy and radioactive iodine with recurrence in 2014), CKD 3, and indolent B-cell lymphoma who presented to the emergency department for progressive dyspnea x5 days. In the emergency department, he was afebrile but demonstrated tachycardia and tachypnea with normaloxygen saturations on BiPAP. CTA was negative for pulmonary embolism and the patient was admitted to the medical ICU for further management with initial lactate 2.17 after being started on community-acquired pneumonia coverage. Medical ICU (11/28/2023 - 11/29/2023): On arrival to the medical ICU, the patient was hemodynamically stable with FiO2 30% utilizing CPAP,appearing comfortable. He was transitioned to nasal cannula and was observed for 8 hours in the medical ICU with stable respiratory status. He was continued on for any acquired pneumonia coverage with ceftriaxone and doxycycline. Pulmonary hygiene was initiated with DuoNebs 4 times daily. After remaining hemodynamically stable in the intensive care unit, the patient was transferred to the floor. SUMMARY DIAGNOSES Acute hypoxic respiratory failure needing CPAP Right lung predominant pneumonia, CAP versus possible aspiration Recent pacemaker placement 11/05 for second degree AVB Pulmonary hypertension Severely enlarged LV size, EF of 51% CAD, h/o PCI Untreated indolent B cell lymphoma Metastatic papillary thyroid cancer in past, treated Hiatal hernia RECOMMENDATIONS: - Restart carvedilol and uptitrate GDMT as tolerated - Continue ceftriaxone and doxycycline for 5 day course for CAP - Remainder per accepting unit Sarah Banks M.D., M.S. Internal Medicine, PGY3 11/29/23 S AND MANAGEMENT TRAINEE documented in this encounter Discharge Instructions * Discharge Instructions* Martha Palencia - 11/30/2023 7:11 AM SALES AND MANAGEMENT TRAINEE You were discharged from the [facility] Medicine 2 ([facility]) Service. Please identify this service name if youcall with questions after hospitalization. S AND MANAGEMENT TRAINEE * Attachments The following attachments cannot be sent through Care Everywhere. * Cefdinir (By mouth) (Liberian) * Doxycycline (By mouth) (Liberian) documented in this encounter Medications at Time [...] 7 doses. 7 tablet 0 11/30/2023 12/04/2023 levothyroxine (SYNTHROID, LEVOTHROID) 175 mcg tablet take one tablet by mouth every morning before breakfast 90 tablet 3 11/24/2023 12/05/2023 documented as of this encounter Progress Notes * Joseph Rai M.D. - 11/30/2023 1:25 PM CST Medicine 2 Supervisory Progress Note I saw and examined the patient on rounds today and discussed the case with the team and agree with their history, exam, and assessment/plan as outlined in their note from 11/30/2023. OBJECTIVE: PHYSICAL EXAMINATION: Vitals: 11/30/23 0800 BP: 124/75 Pulse: 78 Resp: 17 Temp: 36.2 ??C SpO2: 95% Well-appearing, no acute distress Breathing comfortably on room air ASSESSMENT/PLAN: Mr. Khanna is an 78-year-old man who presented with acute hypoxemic respiratory failure in the setting of community-acquired pneumonia. 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 After initially presenting to the emergency department, he was placed on BiPAP and then transferredto the medical ICU on CPAP. Shortly after his arrival the medical ICU he was able to transitioned to nasal cannula. He has continued on antibiotic therapy aimed at community-acquired pneumonia and has made great recovery. Since transfer to the floor yesterday, he has been breathing comfortably on room air and now states that he feels returned to his prior baseline. We will plan to discharge him today and will complete a 5 day total course of antibiotics. Please refer to the team's note from today for further details. Joseph Rai M.D. 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 ASSESSMENT / PLAN Shortness of Breath and Community Acquired Pneumonia Patient on Day 2 of CAP antibiotics Ceftriaxone and doxycycline IV - Plan to transition to cefdinirand doxycycline oral to finish the patient's five days of treatment. Continue duonebs, continue home montelukast Medication Reconciliation Continued home: carvedilol (HF), finasteride (BPH), tamsulosin (BPH), lisinopril (HTN), levothyroxine (hypothyroidism), rosuvastatin (HLD) Jovanni Avalos S AND MANAGEMENT TRAINEE * Zeinab Alba M.D. - 11/29/2023 4:07 PM CST [facility] Medicine 2 ([facility]) TRANSFER ACCEPTANCE NOTE SUBJECTIVE Mr. Khanna is an 78-year-old male with past medical history significant of ischemic cardiomyopathy (LVEF 45-50%), CAD status post multiple SANTIAGO in 2014, moderate aortic stenosis, high degree AV block s/p dual chamber PPM in 10/2023, HTN, HLD, untreated indolent B-cell lymphoma, and metastatic recurrent papillary thyroid carcinoma diagnosed in 2013 s/p total thyroidectomy + radioactive iodine treatment in 2013 complicated by recurrence in 2014 s/p 2nd dosage of radioactive iodine in 2014. He came to the ED yesterday evening (11/28) with worsening dyspnea over the last 5 days. He tried inhalers at home without relief. EMS was called and SpO2 on their arrival was in the 80s. He was placed on BiPAP and received 2 DuoNebs en route to the ED. On arrival to [facility], he was afebrile but mildly tachypneic in the low 20s. He was transitioned to CPAP in the ED. Labs showed elevated BNP (3189, similar to previous presentation to hospital) and leukocytosis to 12.2. D-dimer elevated to 2075. Initial chest x-ray showed interstitial opacity. Given initial concern for PE, he underwent CTA which was negative. He was initiated on CAP coverage with ceftriaxone and doxycycline. He was admitted to the ICU given initial need for CPAP, although he was immediately transitioned to2L nasal cannula in the ICU. He had no increased work of breathing on 2L NC and was quickly transitioned to room air. He denies chest pain, fevers, chills, cough and reports his dyspnea has significantly improved even since admission. He was continued on ceftriaxone and doxycycline, along with addition of vancomycin for potential MRSA coverage given recent hospitalization. MRSA nares was negative. Strep and legionella urine antigen negative. Blood cultures obtained and with no growth to date. On arrival to the floor, patient was hemodynamically stable and afebrile and satting well on room air. I have reviewed the current medication list. OBJECTIVE VITAL SIGNS Temperature: [36.4 ??C-37.2 ??C] 37.2 ??C Heart Rate: [72-119] 94 Resp Rate: [13-34] 20 Blood Pressure: (85-156)/(61-99) 111/68 FiO2 (%): [30 %-40 %] 30 % SpO2: [92 %-98 %] 96 % Flow Rate (L/min): [2 L/min] 2 L/min Height: [175 cm] 175 cm Weight: [80.6 kg] 80.6 kg BSA (Calculated - sq m): [1.98 sq meters] 1.98 sq meters BMI (Calculated): [26.3 kg/m??] 26.3 kg/m?? Pulse Rate: [65-121] 80 PHYSICAL EXAM General: Alert, interactive, not acutely ill. Skin: No rashes or lesions. Eyes: Pupils equal and round. Sclera anicteric. Lungs: Decreased breath sounds in bilateral lower lung barboza. No increased work of breathing on room air Heart: Regular rate and rhythm. No murmurs appreciated. No lower extremity edema. Abdomen: Soft, flat, bowel sounds normoactive, nontender, nondistended, no palpable masses or organomegaly. Neuro: Cranial nerves II-XII intact. Strength 5/5 in all extremities. Mental: Mood and affect congruent. Alert and oriented. Attention intact. No evidence of disorganized thinking. Reliable history track layer head. DIAGNOSTICS I have personally reviewed the laboratory data and imaging since admission, and in/outs for past 72hours. ASSESSMENT / PLAN Mr. Khanna is hospitalized on [facility] 2 ([facility]) for evaluation and management of Pneumonia. He is currently on ceftriaxone and azithromycin and has improved greatly since admission. He feels nearly back to baseline which I would agree with. I do not think that heart failure is likely contributing to his current presentation given his significant improvement with initiation of antibiotics and his lack of evidence of fluid overload on clinical exam. We will continue with management as initiated in the ICU and monitor for improvement. # community-acquired pneumonia -continue ceftriaxone and doxycycline for 5 total days, transitioning ceftriaxone to Augmentin on discharge - Supplemental O2 for goal sat > 90% - DuoNeb and aerobika - Incentive spirometry - Continue home monelukast # ischemic cardiomyopathy (LVEF 45-50%) # CAD status post multiple SANTIAGO 2014 # moderate # high-degree AV block status post recent dual chamber ppm 11/02/2023 # HTN # HLD - No sign of volume overload to suggest heart failure - Continue lisinopril 40 mg, rosuvastatin 40 mg, aspirin 81 mg - Continue carvedilol (prior GDMT, home dose 25 mg BID) with hold params # BPH - Continue home finasteride and tamsulosin # Hypothyroidism, s/p thyroidectomy for recurrent thyroid cancer Continue levothyroxine 175 mcg / day # Elevated blood glucose - Sugars elevated to 200 this admission - Continue SSI mild Fall Injury Prevention: I have discussed My Plan for Safe Activity with the patient. Diet: general diet Tubes/lines: PIV VTE prophylaxis: enoxaparin Disposition: Home Stable to discharge criteria (not met): Labs Plan discussed with [facility] Medicine 2 ([facility]) Cigar Brander, Joseph Garcia M.D., who was present during treadwell portions of the evaluation today. Please page the [facility] Medicine 2 ([facility]) service pager at [phone] with any questions. S AND MANAGEMENT TRAINEE * Tyrel Boothe Pharm.D., R.Ph. - 11/29/2023 1:32 PM CST Images from the original note were not included. Admission Medication History Note Adherence issues: No concerns Medication list source: Patient Medication related information: He states he is still taking clopidogrel. It appears this was not given to him during his recent cardiology admission in October and the most recent cardiology follow-up note does not mention clopidogrel either. Suggested that he clarify if he should be taking it with his scada technician. He states his respiratory symptoms ebb and flow with the season and he doesn't always take his Advair, but may take it daily depending on the time of year. Patient states he takes tamsulosin twice daily instead of 2 capsules at once, per his preference. Prior to Admission Medications Med List Status: Pharmacy Complete Set By: Tyrel Boothe Pharm.D., R.Ph. at 11/29/2023 1:32 PM Taking? Last Dose Informant Start Date End Date LT acetaminophen (TYLENOL) 500 mg capsule -- -- 05/27/21 -- Take 2 capsules (1,000 mg total) by mouth every 6 (six) hours as needed for pain. albuterol (PROVENTIL HFA,VENTOLIN HFA) 90 mcg/actuation inhaler -- -- 03/31/18 -- Inhale 1-2 puffs as needed for wheezing or shortness of breath. aspirin [address] tablet 11/28/2023 -- 08/27/15 -- Take 81 mg by mouth daily. Take for life. calcium carbonate (TUMS) 500 mg (200 mg calcium) chewable tablet -- -- -- -- Chew 1 tablet 2 (two) times a day as needed for indigestion or heartburn. carvediloL (COREG) 25 mg tablet 11/28/2023 -- 11/02/23 11/01/24 Take 1 tablet (25 mg total) by mouth 2 (two) times a day with meals. cetirizine (ZyrTEC) 10 mg tablet -- -- 08/24/15 -- Take 10 mg by mouth daily. clopidogreL (PLAVIX) 75 mg tablet -- -- -- -- Take 75 mg by mouth daily. finasteride (PROSCAR) 5 mg tablet 11/28/2023 -- 11/22/23 -- Take 1 tablet (5 mg total) by mouth daily. fluticasone propion-salmeteroL 250-50 mcg/dose diskus inhaler -- -- 08/25/15 -- Inhale 1 puff daily as needed. levothyroxine (SYNTHROID, LEVOTHROID) 175 mcg tablet 11/28/2023 -- 11/24/23 -- take one tablet by mouth every morning before breakfast lisinopriL (PRINIVIL,ZESTRIL) 40 mg tablet 11/28/2023 -- 10/20/23 10/19/24 Take 1 tablet (40 mg total) by mouth daily. montelukast (SINGULAIR) 10 mg tablet 11/27/2023 -- 08/25/15 -- Take 1 tablet by mouth at bedtime. multivitamin tablet 11/28/2023 Self -- -- Take 1 tablet by mouth daily. rosuvastatin (Crestor) 40 mg tablet 11/28/2023 -- 10/20/23 10/19/24 Take 1 tablet (40 mg total) by mouth daily. tamsulosin (FLOMAX) 0.4 mg 24 hr capsule 11/27/2023 -- 11/22/23 11/21/24 Take 2 capsules (0.8 mg total) by mouth at bedtime. Patient taking differently: Take 0.4 mg by mouth 2 (two) times a day. S AND MANAGEMENT TRAINEE * Ember Lee PharmGarcía, R.Ph. - 11/29/2023 9:58 AM CST Pharmacist Progress Note HPI: 78 y.o. 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 PRN APAP for pain; pain scores 0. CV: HDS without intervention. Continue home lisinopril, rosuvastatin, aspirin, carvedilol (hold parameters for HR/BP in place). PPM in place. Pulm: satting in 90s on RA; continuing abx for CAP (see below). MRSA NS negative. PRN duonebs. Continue home loratadine, montelukast for allergies. Neph: continue home tamsulosin, finasteride. Na 130 - appears to be chronically hyponatremic, no acute concerns. ID: ceftriaxone/doxycycline x5 days (stop dates entered) GI/Endo: moderate SSI. Regular diet. Continue home levothyroxine, multivitamin. Bowel regimen (abbey/PRN) available. Prophy: enoxaparin Recommendations: Continue antibiotics for CAP x5 day consider transition to PO cephalexin/doxycyline if clinically stable. Anastasiia Lee Pharm.D., R.Ph. S AND MANAGEMENT TRAINEE * Amador Rubio M.D. - 11/29/2023 7:19 AM CST MICU 1 PROGRESS NOTE SUBJECTIVE Patient Summary Patient is an 78-year-old male who presented via EMS to the ED for shortness for breath. 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 Likely cause of SOB community acquired pneumonia. Saturating well on 2L NC upon arrival to ICU. Currently on Vanc, ceftriaxone, doxy because he was technically inpatient 11/02 for pacemaker placement. Interval Events Day 11/29 Night 11/28: - turned off bipap, put on 2L NC and saturating well - vanc, ceftriaxone, doxy for likely pneumonia - blood cultures collected - held carvedilol in case there was an underlying aspect of heart failure This morning patient reports feeling at baseline, no shortness of breath. Off supplemental oxygen. Able to stand and ambulate without needing oxygen. OBJECTIVE VITAL SIGNS Temperature: [36.4 ??C-36.7 ??C] 36.6 ??C Heart Rate: [75-119] 80 Resp Rate: [13-34] 18 Blood Pressure: (85-156)/(64-99) 123/84 FiO2 (%): [30 %-40 %] 30 % SpO2: [92 %-98 %] 95 % Flow Rate (L/min): [2 L/min] 2 L/min Height: [175 cm] 175 cm Weight: [80.6 kg] 80.6 kg BSA (Calculated - sq m): [1.98 sq meters] 1.98 sq meters BMI (Calculated): [26.3 kg/m??] 26.3 kg/m?? Pulse Rate: [74-121] 85 I/O 11/27 0701 11/28 0700 11/28 0701 11/29 0700 11/29 0701 11/30 0700 P.O. 440 Crystalloid Bolus 500 Intermittent Medications 100 Total Intake(mL/kg) 1040 (12.9) Urine (mL/kg/hr) 950 Total Output 950 Net +90 PHYSICAL EXAM General: Alert, interactive, not acutely ill. Lungs: Clear to auscultation. No wheezes or crackles. Heart: Regular rate and rhythm. No murmurs appreciated. No lower extremity edema. Abdomen: Soft, flat, bowel sounds normoactive, nontender, nondistended, no palpable masses or organomegaly. ASSESSMENT / PLAN Mr. Levi Khanna is a 78 y.o. 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 Will continue to monitor in the hospital today given the significant hypoxia requiring PAP therapy just earlier this morning. However he does not have ICU level needs and we will request transfer to the medicine floor. NEURO No acute issues. Mentating at baseline. Tylenol for pain. PSYCH No acute issues. 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 Suggests against something like COPD in exacerbation. - f/u blood cultures, urine sterp and legionella - Continue ceftriaxone and doxycycline for 5 total days - transition ceftriaxone to oral prior to discharge - Supplemental O2 for goal sat > 90% - DuoNeb and aerobika - Incentive spirometry - Continue home monelukast RENAL # CKD 3 # Hyponatremia # BPH - Kidneys at baseline. GFR > 90 and Cr 0.7, may not truly have CKD. - Mild hyponatremia 130 (improved from prior). Improved from prior. Monitor with oral intake. - Lyte repletion PRN - Avoid nephrotoxins - Continue home finasteride and tamsulosin GI/NUTRITION - Diet: Regular ID - Infection as above, likely pneumonia. Leukocytosis has now resolved. HEME # Normocytic anemia - Normal Hgb in past few weeks. Recheck as outpatient once recovered from pneumonia. ENDO # Pre-diabetes # Hypothyroidism, s/p thyroidectomy for recurrent thyroid cancer - Sugars elevated 200 this admission - Start SSI-mild - Continue levothyroxine 175 mcg / day ACCESS/LINES Lines, Drains, and Airways Peripheral IV Duration Peripheral IV 11/29/23 Lower;Posterior;Right Forearm 2h Peripheral IV 11/28/23 20 G Left Antecubital 10h Wound Duration Wound 11/01/23 Incision Chest Left;Upper Pacemaker incision 27d 15h PROPHYLAXIS -DVT prophylaxis: enoxaparin -GI prophylaxis: none. CODE STATUS: Full Code DISPO: Admit for further evaluation and management. S AND MANAGEMENT TRAINEE * Joseph Mon, R.R.T., L.R.T. - 11/28/2023 10:45 PM CST Patient arrived to ED on BPAP per EMS for shortness of breath and work of breathing with hypoxia. Patient was transitioned to CPAP 12 and 40% FiO2 on hospital machine. SpO2 stable at 97%. Patient states his breathing has improved and is visibly relaxed. Patient RR now at 20 on non invasive ventilation. No further interventions needed. Patient transported to [place] on CPAP and is awaiting transport toICU. Report given to ICU therapist. S AND MANAGEMENT TRAINEE * Ale Beckwith L.G.S.W., M.S.W. - 11/28/2023 9:14 PM CST SUBJECTIVE Patient presents as an adult respiratory distress page from home for medical work up. Patient is not assessed due to receiving urgent medical evaluation. [facility] reported to Emergency Department (ED) social science research assistant that family was at home and already present in the ED. ED social science research assistant calledED Welcome to determine if patient's family were in the waiting room. ED Welcome stated that no family was present. ED Welcome notified ED social work that patient's family were in the lobby. ED social science research assistant met patient's and son in [facility] and escorted them back to patient's room in . Patient's and ED provider Dr. Barragan discussed patient's health history. Patient will be admitted to the ICU. OBJECTIVE Emergency Department (ED) social science research assistant [facility] in the context of an adult respiratory distress page. Levi Khanna was brought by [facility] ground. ASSESSMENT / PLAN ASSESSMENT Patient appears alert and oriented as evidenced by ED social science research assistant observing patient responding tothe medical team. Patient was on a CPAP machine. A full psychosocial assessment was not completed due to the nature of the medical evaluation. ED social science research assistant provided therapeutic support to patient's and son through: empathetic listening, active and reflective listening, and validation and normalization of feelings. PLAN Patient will be admitted to [id number] Please contact social work should any needs arise. Candice Morrissey, M.S.W. 11/28/2023 S AND MANAGEMENT TRAINEE documented in this encounter H&P Notes * Tamie Rodriguez M.B.B.S. - 11/29/2023 12:35 AM CST SUBJECTIVE CHIEF COMPLAINT Shortness of breath HISTORY OF PRESENT ILLNESS I have seen patient personally, reviewed in multidisciplinary rounds chart, imaging and labs and agree with the plan per critical care team note. Briefly, Mr. Levi Khanna is an 78 year old gentleman who is came to the ED with worsening shortness of breath over 5 days. He tried inhalers at home. EMS found him with saturation in the 80s. He was placed on CPAP. Imaging revealed lung infiltrates, right side predominant, concerning for pneumonia. He was given ceftriaxone, vancomycin, doxycycline in the ER. He was in the hospital in Oct 2023, when he had received pacemaker for 2 degree AVB. His BNP is stable in the 3K range. Other medical history is significant for ICMP, EF of 45-50%, CAD, s/p PCI, HTN, untreated indolent B cell lymphoma, metastatic recurrent papillary thyroid cancer in 2013, s/p total thyroidectomy+ radioactive iodine treatment. Mr. Khanna is arriving, on CPAP, but alert and awake, and interactive. OBJECTIVE VITAL SIGNS I have reviewed the current vital sign data as applicable to this admission. PHYSICAL EXAM Gen: alert,a wake, in NAD, crackles right lung predominant Rest as per critical care team note DIAGNOSTICS I have reviewed relevant laboratory, imaging, and other diagnostics as applicable to this admission. ASSESSMENT / PLAN Acute hypoxic respiratory failure needing CPAP Right lung predominant pneumonia, CAP versus possible aspiration Recent pacemaker placement 11/05 for second degree AVB Pulmonary hypertension Severely enlarged LV size, EF of 51% CAD, h/o PCI Untreated indolent B cell lymphoma Metastatic papillary thyroid cancer in past, treated Hiatal hernia Mr. Khanna is coming in acute hypoxic respiratory failure, needing CPAP. He has right predominant infiltrate and it does appear most consistent with pneumonia. Whereas, he does not have lorenzo swallowing problems, I do wonder if he may have some silent aspiration from his large hiatal hernia seen onhis CT chest. Agree with vancomycin and CAP coverage. Blood and sputum cultures. Wean oxygen as able. Head of bed elevated Rest as per critical care team note. Critical care time 30 minutes. This is time spent at this critically ill patient's bedside activelyinvolved in patient care as well as the coordination of care and discussions with the patient's family. This does not include any procedural time which has been billed separately. S AND MANAGEMENT TRAINEE * Farhat Bhagat M.D. - 11/28/2023 10:41 PM CST RST [facility] Medicine 1 Admission Note SUBJECTIVE CHIEF COMPLAINT Shortness of breath HISTORY OF PRESENT ILLNESS Mr. Levi Khanna is a 78 y.o. male who presents with pneumonia and acute hypoxic respiratory failure. 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 Patient with 5 days of ongoing shortness of breath that acutely worsened this evening. EMS was called and they noted oxygen saturation in the 80s and he was escalated to BiPAP and received 2 DuoNebs and route to the ED. On arrival to the ED he was transitioned to CPAP. Vital signs were concerning for tachycardia and tachypnea but patient was afebrile. Initial chest x-ray showed interstitial opacity. There was some concern for PE hand the patient underwent CTA which was negative. Given the patient's chest x-ray findings he was initiated on CAP coverage. Laboratory evaluation was remarkable for an elevated BNP to 3189 similar to previous presentation to the hospital. Lactate 2.17 patient was hyponatremic to 130 which is similar to previous presentations. He had a mild leukocytosis to 12.2. D-dimer was elevated 2075. No sputum or blood cultures collected in the ED. Upon arrival to the ICU with the patient was hemodynamically stable and on CPAP therapy with an FiO2 of 30%. He was displaying a normal work breathing and so was transitioned immediately to nasal cannula. He had no increased work of breathing on 2 L of oxygen via nasal cannula. He reported no current symptoms such as chest pain, fever, chills, cough, abdominal pain, nausea, vomiting, diarrhea. Hestated that he still felt some shortness for breath but was significantly improved from his earlierpresentation. Family arrived and confirmed the patient's story of several days of shortness of breath with an acute worsening today. They deny any sick contacts. Current Outpatient Medications on File Prior to Encounter: aspirin [address] tablet, Take 81 mg by mouth daily. Take for life. , 11/28/2023 carvediloL (COREG) 25 mg tablet, Take 1 tablet (25 mg total) by mouth 2 (two) times a day with meals., 11/28/2023 finasteride (PROSCAR) 5 mg tablet, Take 1 tablet (5 mg total) by mouth daily., 11/28/2023 levothyroxine (SYNTHROID, LEVOTHROID) 175 mcg tablet, take one tablet by mouth every morning beforebreakfast, 11/28/2023 lisinopriL (PRINIVIL,ZESTRIL) 40 mg tablet, Take 1 tablet (40 mg total) by mouth daily., 11/28/2023 montelukast (SINGULAIR) 10 mg tablet, Take 1 tablet by mouth at bedtime., 11/27/2023 multivitamin tablet, Take 1 tablet by mouth daily., 11/28/2023 rosuvastatin (Crestor) 40 mg tablet, Take 1 tablet (40 mg total) by mouth daily., 11/28/2023 tamsulosin (FLOMAX) 0.4 mg 24 hr capsule, Take 2 capsules (0.8 mg total) by mouth at bedtime., 11/27/2023 acetaminophen (TYLENOL) 500 mg capsule, Take 2 capsules (1,000 mg total) by mouth every 6 (six) hours as needed for pain. albuterol (PROVENTIL HFA,VENTOLIN HFA) 90 mcg/actuation inhaler, Inhale 1-2 puffs as needed for wheezing or shortness of breath. calcium carbonate (TUMS) 500 mg (200 mg calcium) chewable tablet, Chew 1 tablet 2 (two) times a dayas needed for indigestion or heartburn. cetirizine (ZyrTEC) 10 mg tablet, Take 10 mg by mouth daily. fluticasone propion-salmeteroL 250-50 mcg/dose diskus inhaler, Inhale 1 puff daily as needed. OBJECTIVE VITAL SIGNS Temperature: [36.4 ??C] 36.4 ??C Heart Rate: [86-119] 86 Resp Rate: [13-34] 24 Blood Pressure: (85-143)/(68-99) 92/78 SpO2: [96 %-98 %] 98 % Pulse Rate: [85-121] 85 PHYSICAL EXAM General: Alert, interactive, not acutely ill. Skin: No rashes or lesions on examined skin. Eyes: Pupils equal, round, and reactive. Sclera anicteric. Extraocular motion intact. ENT: Hearing grossly intact. Minimal nasal discharge. Supple, no JVD. Oral mucosa pink. Trachea midline. Lymph: No cervical or subclavicular adenopathy. Pulmonary: Rhonchorous breath sounds particularly the right middle and lower lung barboza. Mild crackle at the base of the right lung.. No nasal flaring or accessory muscle use. Cardiovascular: Regular rate and rhythm. No murmurs appreciated. No lower extremity edema. GI: Soft, flat, bowel sounds normoactive, nontender, nondistended, no palpable masses or organomegaly. Neuro: Cranial nerves II-XII intact. Moves all four extremities purposefully antigravity. Strength is full in upper and lower extremities. Sensation intact to light touch bilaterally at the upper andlower extremities. Mental: Mood and affect congruent. Alert and oriented. Attention intact. No evidence of disorganized thinking. Reliable historian. DIAGNOSTICS I have reviewed the labs, ECG, xray, and diagnostics from admission. ASSESSMENT / PLAN Patient is an 78-year-old male who presented via EMS to the ED for shortness for breath. 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 Patient with only mild increased work of breathing upon arrival to the ICU and was transitioned to nasal cannula. Likely etiology of his shortness of breath acute pneumonia based on imaging in mild leukocytosis. The patient was recently hospitalized there was some concern for hospital-acquired pneumonia. Therefore the patient was initiated on vancomycin in addition to ceftriaxone and doxycycline.We will obtain MRSA nares, strep and Legionella urine antigen, and blood cultures for further characterization of possible underlying infection. Other things to consider include aspect of heart failure exacerbation. Consider getting a formal echocardiogram for further evaluation but the patient does not appear to be volume overloaded based onphysical exam. His BNP was elevated to 3200. Troponin 15 -> 19. The patient's D-dimer was elevated at 2000 in the emergency department but no evidence of DVT on physical exam and CTA was negative for PE. Patient's pacemaker site is nontender and non erythematous with no signs of active infection. PLAN BY SYSTEMS: NEURO: -Sedation: none -Pain management: Tylenol prn for fevers and pain. -- CARDIAC: - pacemaker implanted 11/01 -MAP Goal: > 65. - D dimer 2000 - BNP 3200 - Troponin 15-> 19 on recheck - holding carvedilol due to concern for any aspect of decompensated heart failure - could repeat echo for further evaluation -ECG: sinus tach, paced -- troponin 15->19. - BNP 3200 - c/w lisinopril 40 - c/w rosuvastatin 40 daily - c/w aspirin 81 daily RESP: -Oxygen via nasal cannula to keep sats > 90% -CXR: Interstitial opacities -- baseline VBG collected ED was unremarkable -- Continue home inhalers and p.r.n. DuoNeb : -- Obtain baseline UA with Gram???s stain. -- Monitor electrolytes and replace as needed. -- Avoid nephrotoxic medications. -- UCI for strict I&Os. GI: -Nutrition: NPO. -- PPI not indicated ENDO: -- RMGs -- Consider stress dose steroids if MAP remains low despite fluids and pressors ID: -Cultures: blood pending from ICU -- Obtain MRSA nasal swab. -- Obtain urine legionella and strep antigens. -- COVID and flu negative -Abx: Received vancomycin in ED -- Initiate empiric coverage with vancomcyin, ceftriaxone, doxycycline - f/u MRSA nares, strep pneumo, legionella - f/u sputum cultures - lactate wnl HEME: -Goal Hg >7.0. Transfuse as indicated. -- Anticoagulation/DVT prophylaxis: lovenox ACCESS: -PIV DISPO -Code Status: full code -ICU level of cares. -Family updated. S AND MANAGEMENT TRAINEE documented in this encounter Procedure Notes * Hector Barragan M.D. - 11/28/2023 10:57 PM CSTAssociated Order(s): Critical Care Procedure Critical Care Performed by: Hector Barragan M.D. Authorized by: Hector Barragan M.D. Critical care provider statement: Critical care total time (minutes): 60 CPR was performed on this patient: no Critical care was necessary to treat or prevent imminent or life-threatening deterioration of the following conditions: respiratory failure Critical care was time spent personally by me on the following activities: examination of patient, evaluation of patient's response to treatment, re- evaluation of patient's condition, obtaining history from patient [...] from another provider in my specialty: no Hector Barragan M.D. 11/29/23 1153 S AND MANAGEMENT TRAINEE documented in this encounter Nursing Notes * Ravi Harding, R.R.T., L.R.T. - 11/28/2023 11:28 PM CST Patient is a 78 y.o. male admitted on 11/28/2023 Shift note: 2300 ED admit to 6 on V60 CPAP 12 40%. Sats 98%. Decreased fiO2 to 30%. No respiratory distress observed at this time. 2320 Patient seen on 2 L nasal cannula, sats 95%. No respiratory distress at this time. Service aware. Plan of Care: Continue to assess and monitor respiratory status while in ICU. Manage V60 and wean as tolerated. Principal Problem Pneumonia Oxygen Therapy $Delivery Method: Nasal cannula Social History Tobacco Use Smoking Status Never Passive exposure: Past (Growing up for Many years - Father) Smokeless Tobacco Never No results for input(s): PO2 ART, PCO2 ART, PH ART in the last 24 hours. Skin integrity checked: No concerns S AND MANAGEMENT TRAINEE documented in this encounter ED Notes * Macy Toledo M.D. - 11/28/2023 9:32 PM CST Care of patient transferred to in by Dr. Manzanares. This is an 78 yo who presents with acute shortness of breath this evening after being hypoxic the past week days thought to have pneumonia with possible pulmonary edema. CPAP 12 FiO2 50% currently. CAP coverage given. We are getting CTA chest to r/o pulmonary embolism. Received ceftriaxone and and doxycyline. Will get MRSA swab and give Vancomycin given concern for hospitalization in the past month. UPDATE: CTA chest chest showed no pulmonary embolism with bilateral most likely pneumonia vs pulmoanry edema. Patient with improved respiratory rate on CPAP 12 and 40% FiO2. Patient admitted to ICU. VITAL SIGNS BP 94/77 Pulse 102 Temp 36.4 ??C (Axillary) Resp 22 SpO2 98% Final Diagnoses: as of 11/28/232131 Pneumonia Hypoxia Respiratory Failure (HCC) Macy Toledo M.D. Resident 12/01/231810 S AND MANAGEMENT TRAINEE * Hector Barragan M.D. - 11/28/2023 9:06 PM CST SUBJECTIVE CHIEF COMPLAINT/REASON FOR VISIT Respiratory Distress HISTORY OF PRESENT ILLNESS He is a very pleasant 78-year-old male who was just discharged from the cardiology service on November 02 after having a pacemaker placed on 11/01/23. He presents with sudden-onset, severe shortness of breath. REVIEW OF SYSTEMS OBJECTIVE Initial Vitals Temperature 11/28/233 36.4 ??C Pulse Rate 11/28/232040 (!) 118 Heart Rate 11/28/232040 107 Resp Rate 11/28/232040 24 Blood Pressure 11/28/232040 (!) 143/97 SpO2 11/28/232040 96 % Pain Score -- PHYSICAL EXAMINATION Constitutional: He is tachypneic and speaking in only few-word sentences, but does state he is feeling better on BiPAP/CPAP. HENT: Head: Normocephalic and atraumatic. Mouth/Throat: Mucous membranes are moist. Eyes: Conjunctivae are normal. Pulmonary/Chest: There is normal air entry. Tachypnea noted. He is in respiratory distress. He has no wheezes. He exhibits retraction. Neurological: Alert. He is not disoriented. Skin: Skin is normal color. Psychiatric: He has a normal mood and affect. ASSESSMENT/PLAN Assessment and Plan He has multiple comorbidities including heart failure and aortic stenosis. His portable chest x-rayrevealed fluid and infiltrates in the lower lung barboza on the right with minimal findings on the left. Given his acute onset of symptoms, we also had some concern for pulmonary embolism. A D-dimer was obtained and was elevated. CT scan was obtained and also suggested likely pneumonia. He was given ceftriaxone, doxycycline, and vancomycin for antibiotic coverage. Initially, there wassome question about asthma exacerbation, and he did get dexamethasone. However, further discussing with the patient and reviewing his history, it seems unlikely that this is an asthma exacerbation. His EKG shows tachycardia with a paced rhythm. Given his improved clinical course, we have been able to wean down the oxygen level working with respiratory therapy. He remains on CPAP, however, and will require ICU level admission. He did have some brief periods of relative hypotension with blood pressures in the 90s over 60s. His lactate is minimally elevated. Sepsis is certainly in the differential, however we are being very judicious with IV fluids given his significant cardiac history.. DIFFERENTIAL DIAGNOSES Pulmonary edema, congestive heart failure exacerbation, pneumonia, pulmonary embolism, acute coronary syndrome, sepsis. ED Course as of 11/28/232237Nov 28, 20232211 His lactate is 2.17. His CT suggest pneumonia with no evidence of pulmonary embolism (PE). 2216 I have spoken with the [facility] and we will plan on MICU admission. 2237 He will be admitted to the [facility] ICU service. Final Diagnoses: as of 01/15/24 2238 Pneumonia Hypoxia Respiratory Failure (HCC) My ECG interpretation is documented in ED Course. My Plain Films interpretation is documented in ED Course. I have personally seen and examined this patient. I have fully participated in the care of this patient. I have reviewed all clinical information including history, physical exam, orders, and plan. Evangelista with the note of the resident. Hector Barragan M.D. 11/29/23 1153 Hector Barragan M.D. 12/03/237 S AND MANAGEMENT TRAINEE * Mesfin Michael M.D. - 11/28/2023 8:56 PM CST EMERGENCY MEDICINE MEDICAL RESUSCITATION NOTE CHIEF COMPLAINT Respiratory Distress HISTORY OF PRESENTING ILLNESS Levi Khanna is a 78 y.o. male presenting as a medical resuscitation for acute hypoxic respiratory failure by EMS. Per EMS report the patient reported 5 days of ongoing breath, that acutely worsened this evening. On EMS arrival they appreciated SpO2 of 80%, he was promptly escalated from supplemental oxygen to BiPAP 5/5, 60% FiO2, he received 2 DuoNebs on route. They placed an 18 gauge in the right AC. They didappreciate diminished breath sound left side as well as the right side. Initial blood glucose 297. Patient's medical comorbidities include heart failure with a recent ejection fraction on 11/0201/31/2050 1%, hyperlipidemia, papillary thyroid cancer, CKD stage IIIA, and second-degree AV block witha recent hospitalization on 10/2023 for pacemaker placement. PAST MEDICAL HISTORY Levi Khanna has a past medical history of Asthma NOS (HCC), Cataract, Coronary Artery Disease (Unspecified), Gastroesophageal Reflux Disease NOS, Hyperlipidemia, Hypertension NOS, Lymphoma (HCC), Malignant Neoplasm Of Thyroid (HCC), Other Injury Of Unspecified Body Region, and ST ElevationMyocardial Infarction Of Unspecified Site (HCC). REVIEW OF SYSTEMS Full review of systems limited due to acuity of the situation. Initial Vitals Temperature 11/28/232042 36.4 ??C Pulse Rate 11/28/232040 (!) 118 Heart Rate 11/28/232040 107 Resp Rate 11/28/232040 24 Blood Pressure 11/28/232040 (!) 143/97 SpO2 11/28/232040 96 % Pain Score 11/28/230 0 - No pain PHYSICAL EXAM Primary survey: Airway is intact, bilateral breath sounds present, coarse breath sounds in the right lung field, adequate air entry in the left lung field, increased work of breathing, palpable peripheral pulse, alert, exposure completed on arrival. Patient is satting 99% on 60% FiO2 5/5 BiPAP ASSESSMENT AND PLAN Briefly this is a 78 y.o. male presenting as a medical resuscitation for acute hypoxic respiratory failure. Please see HPI for further information. On arrival to the emergency department the patient was roomed immediately in our resuscitation bay where he was met and assessed by our resuscitation team. Patient was connected to the monitor, vitalsigns were obtained, and IV access was secured. On exam the patient was patient was acutely tachypneic, with diminished breath sounds bilaterally, right greater than left. Our point of care ultrasound did show diffuse B-lines throughout the right lung barboza, scattered B-lines left lung field. Patient was promptly deescalated to a CPAP of 12. The appropriate diagnostic studies were considered and obtained. POC VBG showed 7.33/45/34/24, no obvious evidence of hypercapnia. Lactate was 2.17. EKG showed a paced rhythm. CXR showed right-sided pulmonary opacities, consistent with point of care ultrasound Differential diagnosis includes but is not limited to acute heart failure, acute hypoxic respiratory failure secondary to pneumonia, sepsis, and pulmonary embolism Disposition pending results from workup and clinical course. LABORATORY RESULTS: Abnormal Labs Reviewed CBC WITH DIFFERENTIAL, B - Abnormal; Notable for the following components: Result Value Leukocytes 12.2 (*) Neutrophils 8.98 (*) Monocytes 0.98 (*) All other components within normal limits D-DIMER, P - Abnormal; Notable for the following components: D-Dimer, P 2075 (*) All other components within normal limits BASIC METABOLIC PANEL, S/P - Abnormal; Notable for the following components: Sodium, P 129 (*) Chloride, P 95 (*) Bicarbonate, P 21 (*) Calcium, Total, P 8.7 (*) Glucose, P 209 (*) All other components within normal limits NT-PRO B-TYPE NATRIURETIC PEPTIDE (BNP), S - Abnormal; Notable for the following components: NT-Pro BNP 3189 (*) All other components within normal limits VBG & LYTES CG8+, POCT, B - Abnormal; Notable for the following components: Sodium, POCT, B 130 (*) Glucose, POCT, B 216 (*) All other components within normal limits IMAGING STUDIES: CT Chest Angiogram and Pulmonary Arteries with IV Contrast Preliminary Result 1. No pulmonary embolism. 2. Extensive airspace opacities, interlobular septal thickening, and bronchial wall thickening about the right lung, greatest within the inferior right upper and middle lobes. Findings most compatible with pneumonia and/or pulmonary edema. 3. Small bilateral pleural effusions greater right than left. DX Chest Portable 1 View Final Result Since 11/01/2023, new interstitial opacities in the mid to lower lungs, right greater than left. Groundglass and/or consolidative opacities in the right mid and lower lung. No pneumothorax. Right costophrenic angle is not completely included on the exam. Hiatal hernia. Dual lead pacemaker. Demineralization. ED Course as of 11/28/232255Nov 28, 20232250 Lactate, POCT: 2.17 2253 Influenza A, PCR, Rapid, V: Negative Viral swab negative. 2255 CT Chest Angiogram and Pulmonary Arteries with IV Contrast Personally reviewed this patient's CT, no obvious signs of pulmonary embolism, increased pulmonary opacities on the right lung field. 225 ECG 12 Lead Dual chamber electronic pacemaker Sinus tachycardia 2255 Care for this patient has been signed out to the ICU team. He remains on CPAP of 10, hemodynamically stable at the moment of sign-out. Final Diagnoses: as of 11/28/232255 Pneumonia Hypoxia Respiratory Failure (HCC) I reviewed previous medical records including lab results and EKG images/reports. I personally reviewed the lab result(s) and my interpretation is documented in ED Course. I reviewed the radiology report(s). Mesfin Micahel M.D. Resident 11/28/232255 S AND MANAGEMENT TRAINEE documented in this encounter Miscellaneous Notes * Hospital Course - Zeinab Alba M.D. - 11/29/2023 7:33 AM SALES AND MANAGEMENT TRAINEE Mr. Khanna is an 78-year-old gentleman with a past medical history significant for ischemic cardiomyopathy (LVEF 45 50%, October 2023), coronary artery disease (status post PCI frozen 15 LAD x2 withcomplete total occlusion proximal RCA), moderate , high-degree AV block (status post dual-chamberpacemaker placed October 2023), hypertension, hyperlipidemia, metastatic and recurrent papillary thyroid carcinoma (diagnosed 2013, status post total thyroidectomy and radioactive iodine with recurrence in 2014), CKD 3, and indolent B-cell lymphoma who presented to the emergency department for progressive dyspnea x5 days. In the emergency department, he was afebrile but demonstrated tachycardia and tachypnea with normaloxygen saturations on BiPAP. CTA was negative for pulmonary embolism and the patient was admitted to the medical ICU for further management with initial lactate 2.17 after being started on community-acquired pneumonia coverage. On arrival to the medical ICU, the patient was hemodynamically stable with FiO2 30% utilizing CPAP,appearing comfortable. He was transitioned to nasal cannula and was observed for 8 hours in the medical ICU with stable respiratory status. He was continued on for any acquired pneumonia coverage with ceftriaxone and doxycycline. Pulmonary hygiene was initiated with DuoNebs 4 times daily. After remaining hemodynamically stable in the intensive care unit, the patient was transferred to the floor. He was quickly transitioned to room air and continued saturating well. His blood cultures remained with no growth. His home carvedilol was restarted given his hemodynamic stability. He was continued on ceftriaxone and doxycycline for CAP coverage. He was deemed stable for discharge to home on 11/30 in stable and improved condition. He will be transitioned to oral antibiotics with doxycycline and cefdinir, given reported penicillin allergy. Thiswill be a 5 day course, through 12/03. S AND MANAGEMENT TRAINEE documented in this encounter Plan of Treatment Upcoming Encounters Date Type Department Care Team (Late st Contact Info) Description 12/13/2023 8:50 AM SALES AND MANAGEMENT TRAINEE Appointment Department of Laboratory Medicine and Pathology, [facility], in [place], [place] [address] [place] [address] Natasha Mullins, VY, C.N.P., M.S., M.S.N. [address] [place] [phone] 12/13/2023 11:00 AM SALES AND MANAGEMENT TRAINEE Office Visit Department of Cardiovascular Medicine in [place], [place] [address] [place] [phone] Natasha Mullins APRN, Radha.NRenetta, M.S., M.S.N. [address] [place] [phone] 02/02/2024 9:15 AM CDT Appointment Department of Cardiovascular Diseases in [place], [place] [address] [place] [phone] Fazal Reynoso M.D. [address] [place] [phone] documented as of this encounter Procedures Procedure Name Priority Date/Time Associated Diagnosis Comments GLUCOSE POCT, B Routine 11/30/2023 12:06 PM SALES AND MANAGEMENT TRAINEE GLUCOSE POCT, B Routine 11/30/2023 8:15 AM SALES AND MANAGEMENT TRAINEE CBC WITHOUT DIFFERENTIAL, B Routine 11/30/2023 8:14 AM SALES AND MANAGEMENT TRAINEE BASIC METABOLIC PANEL, S/P Routine 11/30/2023 8:14 AM SALES AND MANAGEMENT TRAINEE GLUCOSE POCT, B Routine 11/29/2023 9:47 PM SALES AND MANAGEMENT TRAINEE GLUCOSE POCT, B Routine 11/29/2023 4:27 PM SALES AND MANAGEMENT TRAINEE THORACIC ULTRASOUND Routine 11/29/2023 1 :13 PM SALES AND MANAGEMENT TRAINEE GLUCOSE POCT, B Routine 11/29/2023 11:47 AM SALES AND MANAGEMENT TRAINEE GLUCOSE POCT, B Routine 11/29/2023 8:56 AM SALES AND MANAGEMENT TRAINEE ADULT OXYGEN THERAPY Routine 11/29/2023 8:02 AM SALES AND MANAGEMENT TRAINEE CBC WITHOUT DIFFERENTIAL, B Routine 11/29/2023 4:48 AM SALES AND MANAGEMENT TRAINEE BASIC METABOLIC PANEL, S/P Routine 11/29/2023 4:48 AM SALES AND MANAGEMENT TRAINEE GRAM STAIN Routine 11/29/2023 3:18 AM SALES AND MANAGEMENT TRAINEE BACTERIA / DANNA CULTURE, BLOOD STAT 11/29/2023 12:31 AM SALES AND MANAGEMENT TRAINEE BACTERIA / DANNA CULTURE, BLOOD STAT 11/29/2023 12:24 AM SALES AND MANAGEMENT TRAINEE STREPTOCOCCUS PNEUMONIAE AG, U Routine 11/29/2023 12:08 AM SALES AND MANAGEMENT TRAINEE LEGIONELLA AG, U Routine 11/29/2023 12:0 8 AM SALES AND MANAGEMENT TRAINEE TROPONIN T, 2H/6H, 5TH GEN, P Timed 11/28/2023 11:33 PM SALES AND MANAGEMENT TRAINEE ADULT OXYGEN THERAPY Routine 11/28/2023 11:18 PM SALES AND MANAGEMENT TRAINEE ADULT OXYGEN THERAPY Routine 11/28/2023 11:18 PM SALES AND MANAGEMENT TRAINEE ADULT OXYGEN THERAPY Routine 11/28/2023 11:18 PM SALES AND MANAGEMENT TRAINEE CRITICAL CARE Routine 11/28/2023 10:57 PM SALES AND MANAGEMENT TRAINEE NON-INVASIVE VENTILATION Routine 11/28/2023 10:44 PM SALES AND MANAGEMENT TRAINEE NON-INVASIVE VENTILATION Routine 11/28/2023 10:44 PM SALES AND MANAGEMENT TRAINEE NON-INVASIVE VENTILATION Routine 11/28/2023 10:44 PM SALES AND MANAGEMENT TRAINEE NON-INVASIVE VENTILATION Routine 11/28/2023 10:44 PM SALES AND MANAGEMENT TRAINEE NON-INVASIVE VENTILATION Routine 11/28/2023 10:44 PM SALES AND MANAGEMENT TRAINEE MRSA/STAPHYLOCOCCUS AUREUS, NASAL, BY PCR Routine 11/28/2023 10:17 PM SALES AND MANAGEMENT TRAINEE LACTATE, POCT, B STAT 11/28/2023 10:0 7 PM SALES AND MANAGEMENT TRAINEE CT CHEST ANGIOGRAM AND PULMONARY ARTERIES WITH IV CONTRAST RAD - Semiurgent (Fast; most ED patients; some inpatients) 11/28/2023 10:01 PM SALES AND MANAGEMENT TRAINEE DX CHEST PORTABLE 1 VIEW RAD - Semiurgent (Fast; most ED patients; some inpatients) 11/28/2023 8:56 PM SALES AND MANAGEMENT TRAINEE VBG & LYTES CG8+, POCT, B STAT 11/28/2023 8:50 PM SALES AND MANAGEMENT TRAINEE TROPONIN T, BASELINE, 5TH GEN, P STAT 11/28/2023 8:50 PM SALES AND MANAGEMENT TRAINEE NT-PRO B-TYPE NATRIURETIC PEPTIDE (BNP), S STAT 11/28/2023 8:50 PM SALES AND MANAGEMENT TRAINEE D-DIMER, P STAT 11/28/2023 8:50 PM SALES AND MANAGEMENT TRAINEE CBC WITH DIFFERENTIAL, B STAT 11/28/2023 8:50 PM SALES AND MANAGEMENT TRAINEE BASIC METABOLIC PANEL, S/P STAT 11/28/2023 8:50 PM SALES AND MANAGEMENT TRAINEE IFLU A, B, SARS COV-2, PCR, RAPID,V STAT 11/28/2023 8:47 PM SALES AND MANAGEMENT TRAINEE ECG STAT 11/28/2023 8:47 PM SALES AND MANAGEMENT TRAINEE FOCUSED CARDIAC ULTRASOUND Routine 11/28/2023 8:45 PM SALES AND MANAGEMENT TRAINEE documented in this encounter Results * Glucose, POCT (11/30/2023 12:06 PM SALES AND MANAGEMENT TRAINEE) Glucose, POCT, B 96 70 - 140 mg/dL 11/30/2023 12:08 PM SALES AND MANAGEMENT TRAINEE PCLX Site Capillary 11/30/2023 12:08 PM SALES AND MANAGEMENT TRAINEE PCLX Last Intake 3-4 hours 11/30/2023 12:08 PM SALES AND MANAGEMENT TRAINEE PCLX Blood 11/30/2023 12:0 6 PM SALES AND MANAGEMENT TRAINEE 11/30/2023 12:08 PM SALES AND MANAGEMENT TRAINEE Unknown Provider LAB POCT ORDERABLES- MANUAL Performing Organization Address [facility]/ZIP Co de Phone Number POC [facility] [address] [place] [address], [facility] PCLX [facility] POC [address] [place] [address] * Glucose, POCT (11/30/2023 8:15 AM SALES AND MANAGEMENT TRAINEE) Glucose, POCT, B 120 70 - 140 mg/dL 11/30/2023 8:18 AM SALES AND MANAGEMENT TRAINEE PCLX Last Intake 3-4 hours 11/30/2023 8:18 AM SALES AND MANAGEMENT TRAINEE PCLX Blood 11/30/2023 8:15 AM SALES AND MANAGEMENT TRAINEE 11/30/2023 8:18 AM SALES AND MANAGEMENT TRAINEE Unknown Provider LAB POCT ORDERABLES- MANUAL Performing Organization Address [facility] Co de Phone Number [facility] [address] [place] [address], [facility] PCLX [facility] POC [address] [place] [address] * (ABNORMAL) Basic Metabolic Panel (11/30/2023 8:14 AM SALES AND MANAGEMENT TRAINEE) Potassium, S 4.0 3.6 - 5.2 mmol/L 11/30/2023 9:37 AM SALES AND MANAGEMENT TRAINEE DTL Sodium, S 134(L) 135 - 145 mmol/L 11/30/2023 9:37 AM SALES AND MANAGEMENT TRAINEE DTL Chloride, S 99 98 - 107 mmol/L 11/30/2023 9:37 AM SALES AND MANAGEMENT TRAINEE DTL Bicarbonate, S 24 22 - 29 mmol/L 11/30/2023 9:37 AM SALES AND MANAGEMENT TRAINEE DTL Anion Gap 11 7 - 15 11/30/2023 9:37 AM SALES AND MANAGEMENT TRAINEE DTL BUN (Blood Urea Nitrogen), S 16 8 - 24 mg/dL 11/30/2023 9:37 AM SALES AND MANAGEMENT TRAINEE DTL Creatinine 0.78 0.74 - 1.35 mg/dL 11/30/2023 9:37 AM SALES AND MANAGEMENT TRAINEE DTL Estimated GFR (eGFR) >90 >=60 mL/min/BSA 11/30/2023 9:37 AM SALES AND MANAGEMENT TRAINEE DTL Comment: Estimated GFR calculated using the 2020 CKD_EPI creatinine equation. Calcium, Total, S 8.6(L) 8.8 - 10.2 mg/dL 11/30/2023 9:37 AM SALES AND MANAGEMENT TRAINEE DTL Glucose, S 100 70 - 140 mg/dL 11/30/2023 9:37 AM SALES AND MANAGEMENT TRAINEE DTL Blood (Blood, Venous) 11/30/2023 8:14 AM SALES AND MANAGEMENT TRAINEE 11/30/2023 9:21 AM SALES AND MANAGEMENT TRAINEE Zeinab Alba M.D. LAB BLOOD ADD -ON [facility] [address] [place] [address], [facility] DTL [facility] [address] [place] [address] * (ABNORMAL) CBC without Differential (11/30/2023 8:14 AM SALES AND MANAGEMENT TRAINEE) Pathologist [facility] Hemoglobin 11.7(L) 13.2 - 16.6 g/dL 11/30/2023 9:26 AM SALES AND MANAGEMENT TRAINEE DTL Hematocrit 34.6(L) 38.3 - 48.6 % 11/30/2023 9:26 AM SALES AND MANAGEMENT TRAINEE DTL Erythrocytes 3.78(L) 4.35 - 5.65 x10(12)/L 11/30/2023 9:26 AM SALES AND MANAGEMENT TRAINEE DTL MCV 91.5 78.2 - 97.9 fL 11/30/2023 9:26 AM SALES AND MANAGEMENT TRAINEE DTL RBC Distrib Width 14.3 11.8 - 14.5 % 11/30/2023 9:26 AM SALES AND MANAGEMENT TRAINEE DTL Platelet Count 189 135 - 317 x10(9)/L 11/30/2023 9:26 AM SALES AND MANAGEMENT TRAINEE DTL Leukocytes 9.3 3.4 - 9.6 x10(9)/L 11/30/2023 9:26 AM SALES AND MANAGEMENT TRAINEE DTL Blood (Blood, Venous) 11/30/2023 8:14 AM SALES AND MANAGEMENT TRAINEE 11/30/2023 9:08 AM SALES AND MANAGEMENT TRAINEE Zeinab Alba M.D. LAB BLOOD ADD -ON [facility] [address] [place] [address], [facility] DTL [facility] [address] [place] [address] * Glucose, POCT (11/29/2023 9:47 PM SALES AND MANAGEMENT TRAINEE) Glucose, POCT, B 126 70 - 140 mg/dL 11/29/2023 9:51 PM SALES AND MANAGEMENT TRAINEE PCLX Site Capillary 11/29/2023 9:51 PM SALES AND MANAGEMENT TRAINEE PCLX Last Intake 2-3 hours 11/29/2023 9:51 PM SALES AND MANAGEMENT TRAINEE PCLX Blood 11/29/2023 9:47 PM SALES AND MANAGEMENT TRAINEE 11/29/2023 9:51 PM SALES AND MANAGEMENT TRAINEE Unknown Provider LAB POCT ORDERABLES- MANUAL Performing Organization Address City/[facility]/ZIP Co de Phone Number POC [facility] [address] [place] [address], [facility] PCLX [facility] POC [address] [place] [address] * (ABNORMAL) Glucose, POCT (11/29/2023 4:27 PM SALES AND MANAGEMENT TRAINEE) Glucose, POCT, B 198(H) 70 - 140 mg/dL 11/29/2023 4:29 PM SALES AND MANAGEMENT TRAINEE PCLX Site Capillary 11/29/2023 4:29 PM SALES AND MANAGEMENT TRAINEE PCLX Last Intake <1 hour 11/29/2023 4:29 PM SALES AND MANAGEMENT TRAINEE PCLX Blood 11/29/2023 4:27 PM SALES AND MANAGEMENT TRAINEE 11/29/2023 4:29 PM SALES AND MANAGEMENT TRAINEE Unknown Provider LAB POCT ORDERABLES- MANUAL Performing Organization Address City/[facility]/ZIP Co de Phone Number POC [facility] [address] [place] [address], [place] PCLX [facility] POC [address] [place] [address] * POCUS Thoracic (11/29/2023 1:13 PM SALES AND MANAGEMENT TRAINEE) 11/28/2023 8:45 PM SALES AND MANAGEMENT TRAINEE Narrative [facility] - 11/28/2023 8:45 PM SALES AND MANAGEMENT TRAINEE Lung ?[id number] ULTRASOUND - EMERGENCY MEDICINE - [facility]: ?Exam Type: ??Diagnostic ?Indication(s) for Exam: [...] Note Hector Barragan M.D. - 11/29/2023 Lung [id number] ULTRASOUND - EMERGENCY MEDICINE - [facility]: Exam Type: Diagnostic Indication(s) for Exam: [...] on Wednesday, November 29, 2023 at1:13 PM Hecotr Barragan M.D. PROCEDURE/MINOR SURG ICAL ORDERABLES Performing Organization Address City/[facility]/ZIP Co de Phone Number [facility] * (ABNORMAL) Glucose, POCT (11/29/2023 11:47 AM SALES AND MANAGEMENT TRAINEE) Glucose, POCT, B 180(H) 70 - 140 mg/dL 11/29/2023 11:59 AM SALES AND MANAGEMENT TRAINEE PCLX Site Capillary 11/29/2023 11:59 AM SALES AND MANAGEMENT TRAINEE PCLX Last Intake <1 hour 11/29/2023 11:59 AM SALES AND MANAGEMENT TRAINEE PCLX Blood 11/29/2023 11:4 7 AM SALES AND MANAGEMENT TRAINEE 11/29/2023 12:00 PM SALES AND MANAGEMENT TRAINEE Unknown Provider LAB POCT ORDERABLES- MANUAL POC [facility] [address] [place] [address], [facility] PCLX [facility] POC [address] [place] [address] * (ABNORMAL) Glucose, POCT (11/29/2023 8:56 AM SALES AND MANAGEMENT TRAINEE) Glucose, POCT, B 147(H) 70 - 140 mg/dL 11/29/2023 8:58 AM SALES AND MANAGEMENT TRAINEE PCLX Site Capillary 11/29/2023 8:58 AM SALES AND MANAGEMENT TRAINEE PCLX Last Intake > 4 hours 11/29/2023 8:58 AM SALES AND MANAGEMENT TRAINEE PCLX Blood 11/29/2023 8:56 AM SALES AND MANAGEMENT TRAINEE 11/29/2023 8:59 AM SALES AND MANAGEMENT TRAINEE Unknown Provider LAB POCT ORDERABLES- MANUAL POC [facility] [address] [place] [address], [facility] PCLX [facility] POC [address] [place] [address] * (ABNORMAL) Basic Metabolic Panel (11/29/2023 4:48 AM SALES AND MANAGEMENT TRAINEE) Pathologist [facility] Potassium, S 4.3 3.6 - 5.2 mmol/L 11/29/2023 6:11 AM SALES AND MANAGEMENT TRAINEE DTL Sodium, S 130(L) 135 - 145 mmol/L 11/29/2023 6:11 AM SALES AND MANAGEMENT TRAINEE DTL Chloride, S 97(L) 98 - 107 mmol/L 11/29/2023 6:11 AM SALES AND MANAGEMENT TRAINEE DTL Bicarbonate, S 20(L) 22 - 29 mmol/L 11/29/2023 6:11 AM SALES AND MANAGEMENT TRAINEE DTL Anion Gap 13 7 - 15 11/29/2023 6:11 AM SALES AND MANAGEMENT TRAINEE DTL BUN (Blood Urea Nitrogen), S 16 8 - 24 mg/dL 11/29/2023 6:11 AM SALES AND MANAGEMENT TRAINEE DTL Creatinine 0.70(L) 0.74 - 1.35 mg/dL 11/29/2023 6:11 AM SALES AND MANAGEMENT TRAINEE DTL Estimated GFR (eGFR) >90 >=60 mL/min/BSA 11/29/2023 6:11 AM SALES AND MANAGEMENT TRAINEE DTL Comment: Estimated GFR calculated using the 2020 CKD_EPI creatinine equation. Calcium, Total, S 8.3(L) 8.8 - 10.2 mg/dL 11/29/2023 6:11 AM SALES AND MANAGEMENT TRAINEE DTL Glucose, S 155(H) 70 - 140 mg/dL 11/29/2023 6:11 AM SALES AND MANAGEMENT TRAINEE DTL Blood (Blood, Venous) 11/29/2023 4:48 AM SALES AND MANAGEMENT TRAINEE 11/29/2023 5:49 AM SALES AND MANAGEMENT TRAINEE Farhat Bhagat M.D. LAB BLOOD ADD-ON [facility] [address] [place] [address], [facility] [address] [place] [address] * (ABNORMAL) CBC without Differential (11/29/2023 4:48 AM SALES AND MANAGEMENT TRAINEE) Pathologist [facility] Hemoglobin 12.1(L) 13.2 - 16.6 g/dL 11/29/2023 5:45 AM SALES AND MANAGEMENT TRAINEE DTL Hematocrit 35.1(L) 38.3 - 48.6 % 11/29/2023 5:45 AM SALES AND MANAGEMENT TRAINEE DTL Erythrocytes 3.86(L) 4.35 - 5.65 x10(12)/L 11/29/2023 5:45 AM SALES AND MANAGEMENT TRAINEE DTL MCV 90.9 78.2 - 97.9 fL 11/29/2023 5:45 AM SALES AND MANAGEMENT TRAINEE DTL RBC Distrib Width 13.7 11.8 - 14.5 % 11/29/2023 5:45 AM SALES AND MANAGEMENT TRAINEE DTL Platelet Count 186 135 - 317 x10(9)/L 11/29/2023 5:45 AM SALES AND MANAGEMENT TRAINEE DTL Leukocytes 5.5 3.4 - 9.6 x10(9)/L 11/29/2023 5:45 AM SALES AND MANAGEMENT TRAINEE DTL Blood (Blood, Venous) 11/29/2023 4:48 AM SALES AND MANAGEMENT TRAINEE 11/29/2023 5:35 AM SALES AND MANAGEMENT TRAINEE Farhat Bhagat M.D. LAB BLOOD ADD-ON Performing Organization Address City/[facility]/ZIP Co de Phone Number [facility] [address] [place], [place] [address] [address] [place] [address] * Gram Stain (11/29/2023 3:18 AM SALES AND MANAGEMENT TRAINEE) [facility] Gram Stain Microscopic examination shows many epithelial cells indicating oropharyngeal contamination-jen terial culture not performed. 11/29/2023 1:24 PM SALES AND MANAGEMENT TRAINEE DTL Sputum 11/29/2023 3:18 AM SALES AND MANAGEMENT TRAINEE 11/29/2023 5:11 AM SALES AND MANAGEMENT TRAINEE Comment:Specimen Source Site : Sputum Farhat Bhagat M.D. LAB MICROBIOLOGY - GENERAL ORDERABLES Performing Organization Address City/[facility] Co de Phone Number [facility] [address] [place] [address] * Bacteria / Danna Culture, Blood #2 (11/29/2023 12:31 AM SALES AND MANAGEMENT TRAINEE) Bacteria/April da Culture, Blood No growth after 5 days of incubation. 12/04/2023 1:02 AM SALES AND MANAGEMENT TRAINEE DTL Blood (Blood, Peripheral Draw) 11/29/2023 12:31 AM SALES AND MANAGEMENT TRAINEE 11/29/2023 12:51 AM SALES AND MANAGEMENT TRAINEE Comment:Specimen Source Site : Blood Farhat Bhagat M.D. LAB MICROBIOLOGY - GENERAL ORDERABLES Performing Organization Address City/[facility] Co de Phone Number [facility] [address] 200 [place] [address] * Bacteria / Danna Culture, Blood #1 (11/29/2023 12:24 AM SALES AND MANAGEMENT TRAINEE) Pathologist [facility] Bacteria/April da Culture, Blood No growth after 5 days of incubation. 12/04/2023 1:02 AM SALES AND MANAGEMENT TRAINEE DTL Blood (Blood, Peripheral Draw) 11/29/2023 12:24 AM SALES AND MANAGEMENT TRAINEE 11/29/2023 12:48 AM SALES AND MANAGEMENT TRAINEE Comment:Specimen Source Site : Blood Farhat Bhagat M.D. LAB MICROBIOLOGY - GENERAL ORDERABLES Performing Organization Address City/[facility] Co de Phone Number [facility] 200 [place] [address] * Streptococcus pneumoniae Antigen, Urine (11/29/2023 12:08 AM SALES AND MANAGEMENT TRAINEE) Pathologist [facility] Streptococcus pneumoniae Ag, U Negative Negative 11/29/2023 2:50 PM SALES AND MANAGEMENT TRAINEE [facility] Comment: Negative for pneumococcal pneumonia, suggesting no current or recent infection. ??Infection due to S. pneumoniae cannot be ruled out since the antigen present in the sample may be below detection limit of the test. ----ADDITIONAL INFORMATION---- This assay was performed using the FDA-cleared BinaxNOW Streptococcus pneumoniae Antigen test, a rapid immunochromatographic assay. Urine (Urine, Indwelling Catheter) 11/29/2023 12:08 AM SALES AND MANAGEMENT TRAINEE 11/29/2023 8:16 AM SALES AND MANAGEMENT TRAINEE Farhat Bhagat M.D. LAB MICROBIOLOGY - GENERAL ORDERABLES Performing Organization Address City/[facility]/ZIP Co de Phone Number [facility] [address] [place] [id number] [facility] [address] [place] [address] [place] [id number] * Legionella Antigen, Urine (11/29/2023 12:08 AM SALES AND MANAGEMENT TRAINEE) Pathologist [facility] Legionella Ag, U Negative Negative 11/29/19 24 2:56 PM SALES AND MANAGEMENT TRAINEE [facility] Comment: Negative for L. pneumophila [...] Urine (Urine, Indwelling Catheter) 11/29/2023 12:08 AM SALES AND MANAGEMENT TRAINEE 11/29/2023 8:16 AM SALES AND MANAGEMENT TRAINEE Farhat Bhagat M.D. LAB MICROBIOLOGY - GENERAL ORDERABLES Performing Organization Address City/[facility]/ZIP Co de Phone Number [facility] [address] [place] [id number] [facility] [address] [place] [address] [place] [id number] * (ABNORMAL) Troponin T, 2h/6h, 5th Gen (11/28/2023 11:33 PM SALES AND MANAGEMENT TRAINEE) Troponin T, 2 hr, 5th gen 19(H) <=15 ng/L 11/29/2023 12:06 AM SALES AND MANAGEMENT TRAINEE [facility] 2H Delta 4 ng/L 11/29/2023 12:06 AM SALES AND MANAGEMENT TRAINEE [facility] 2H Delta Interp Indeterminate 11/29/2023 12:06 AM SALES AND MANAGEMENT TRAINEE [facility] Comment:Indeterminate delta, additional sample suggested Troponin T, 6 hr, 5th gen 16(H) <=15 ng/L 11/29/2023 5:31 AM SALES AND MANAGEMENT TRAINEE [facility] 6H Delta 1 ng/L 11/29/2023 5:31 AM SALES AND MANAGEMENT TRAINEE [facility] 6H Delta Interp Not Changing 11/29/2023 5:31 AM SALES AND MANAGEMENT TRAINEE [facility] Blood (Blood, Venous) 11/28/2023 11:33 PM SALES AND MANAGEMENT TRAINEE 11/28/2023 11:37 PM SALES AND MANAGEMENT TRAINEE Narrative [facility] - 11/29/2023 5:31 AM SALES AND MANAGEMENT TRAINEE Specimen Information: Specimen ID: [id number] Specimen Type: Blood Specimen Collection Start Date: 11/28/2023 11:33 PM Specimen Received Date: 11/28/2023 11:37 PM Specimen ID: [id number] Specimen Type: Blood Specimen Collection Start Date: 11/29/2023 ??4:48 AM Specimen Received Date: 11/29/2023 ??4:54 AM Mesfin Michael M.D. LAB BLOO D TROPONIN Performing Organization Address City/State/[facility] Co de Phone Number [facility] [address] [place] [address] * Critical Care (11/28/2023 10:57 PM SALES AND MANAGEMENT TRAINEE) Narrative Hector Barragan M.D. - 11/28/2023 10:57 PM SALES AND MANAGEMENT TRAINEE Hector Barragan M.D. ? 11/29/2023 11:53 AM [...] / MRSA, Nasal, PCR (11/28/2023 10:17 PM SALES AND MANAGEMENT TRAINEE) Staphylococcus aureus, PCR Negative Negative 11/29/2023 12:22 AM SALES AND MANAGEMENT TRAINEE DTL MRSA, PCR Negative Negative 11/29/2023 12:22 AM SALES AND MANAGEMENT TRAINEE DTL Swab (Nares) 11/28/2023 10:1 7 PM SALES AND MANAGEMENT TRAINEE 11/28/2023 11:00 PM SALES AND MANAGEMENT TRAINEE Macy Toledo M.D. LAB MICROBIOLOGY - G ENERAL ORDERABLES Performing Organization Address City/[facility]/[place] [address], [facility] [place] [place] [address] * Lactate, POCT (11/28/2023 10:07 PM SALES AND MANAGEMENT TRAINEE) Lactate, POCT 2.17 0.50 - 2.20 mmol/L 11/28/2023 10:39 PM SALES AND MANAGEMENT TRAINEE PCLX Blood (Blood, Venous) 11/28/2023 10:07 PM SALES AND MANAGEMENT TRAINEE 11/28/2023 10:07 PM SALES AND MANAGEMENT TRAINEE Mesfin Michael M.D. LAB POCT ORDERABLES - DEVICE POC [facility] [address] [place] [address], [place] PCLX [facility] [address] [place] [address] * CT Chest Angiogram and Pulmonary Arteries with IV Contrast (11/28/2023 10:01 PM SALES AND MANAGEMENT TRAINEE) Anatomical Region Laterality Modality Chest, Cardiovascular RST LO S, Thoracic ARZ LOS, Thoracic FLA LOS N/A Computed Tomography, Compute d Tomography 11/28/2023 9:58 PM SALES AND MANAGEMENT TRAINEE Impressions 11/29/2023 12:40 AM SALES AND MANAGEMENT TRAINEE 1. No pulmonary embolism. 2. Bilateral probably pneumonia and/or pulmonary edema. Narrative 11/29/2023 12:40 AM SALES AND MANAGEMENT TRAINEE EXAM: ??CT CHEST ANGIOGRAM AND PULMONARY ARTERIES [...] Chest Portable 1 View (11/28/2023 8:56 PM SALES AND MANAGEMENT TRAINEE) Anatomical Region Laterality Modality Chest, Thoracic RST LOS, Tho racic ARZ LOS, Thoracic FLA LOS N/A Digital Radiography Impressions 11/28/2023 9:36 PM SALES AND MANAGEMENT TRAINEE Since 11/01/2023, new interstitial opacities in the mid to lower lungs, right greater than left. Groundglass and/or consolidative opacities in the right mid and lower lung. No pneumothorax. Right costophrenic angle is not completely included on the exam. Hiatal hernia. Dual lead pacemaker. Demineralization. Narrative 11/28/2023 9:36 PM SALES AND MANAGEMENT TRAINEE EXAM: ??DX CHEST PORTABLE 1 VIEW Procedure [...] IMG DIAG NOSTIC IMAGING PROCEDURES * (ABNORMAL) NT-Pro B-Type Natriuretic Peptide (BNP) (11/28/2023 8:50 PM SALES AND MANAGEMENT TRAINEE) NT-Pro BNP 3189(H) <=540 pg/mL 11/28/2023 9:38 PM SALES AND MANAGEMENT TRAINEE [facility] Comment: NT-proBNP values less than 300 pg/mL [...] failure. Blood (Blood, Venous) 11/28/2023 8:50 PM SALES AND MANAGEMENT TRAINEE 11/28/2023 9:07 PM SALES AND MANAGEMENT TRAINEE Narrative Authorizing Provider Result Manuel Michael M.D. LAB BLOO D ADD-ON Performing Organization Address City/[facility]/ZIP Co de Phone Number [facility] [address] 200 [place] [address] * Troponin T, Baseline, 5th gen (11/28/2023 8:50 PM SALES AND MANAGEMENT TRAINEE) Troponin T, Baseline, 5th gen 15 <=15 ng/L 11/28/2023 9:27 PM SALES AND MANAGEMENT TRAINEE [facility] Blood (Blood, Venous) 11/28/2023 8:50 PM SALES AND MANAGEMENT TRAINEE 11/28/2023 9:07 PM SALES AND MANAGEMENT TRAINEE Narrative Authorizing Provider Result Manuel Michael M.D. LAB BLOO D TROPONIN Performing Organization Address [facility] Co de Phone Number [facility] 200 [place] [address], [place] [address] * (ABNORMAL) Basic Metabolic Panel (11/28/2023 8:50 PM SALES AND MANAGEMENT TRAINEE) Potassium, P 4.7 3.6 - 5.2 mmol/L 11/28/2023 9:23 PM SALES AND MANAGEMENT TRAINEE [facility] Sodium, P 129(L) 135 - 145 mmol/L 11/28/2023 9:23 PM SALES AND MANAGEMENT TRAINEE [facility] Chloride, P 95(L) 98 - 107 mmol/L 11/28/2023 9:23 PM SALES AND MANAGEMENT TRAINEE [facility] Bicarbonate, P 21(L) 22 - 29 mmol/L 11/28/2023 9:23 PM SALES AND MANAGEMENT TRAINEE [facility] Anion Gap, P 13 7 - 15 11/28/2023 9:23 PM SALES AND MANAGEMENT TRAINEE [facility] BUN (Blood Urea Nitrogen), P 20 8 - 24 mg/dL 11/28/2023 9:23 PM SALES AND MANAGEMENT TRAINEE [facility] Creatinine 0.74 0.74 - 1.35 mg/dL 11/28/2023 9:23 PM SALES AND MANAGEMENT TRAINEE [facility] Estimated GFR (eGFR) >90 >=60 mL/min/BSA 11/28/2023 9:23 PM SALES AND MANAGEMENT TRAINEE [facility] Comment: Estimated GFR calculated using the 2020 CKD_EPI creatinine equation. Calcium, Total, P 8.7(L) 8.8 - 10.2 mg/dL 11/28/2023 9:23 PM SALES AND MANAGEMENT TRAINEE [facility] Glucose, P 209(H) 70 - 140 mg/dL 11/28/2023 9:23 PM SALES AND MANAGEMENT TRAINEE [facility] Blood (Blood, Venous) 11/28/2023 8:50 PM SALES AND MANAGEMENT TRAINEE 11/28/2023 9:07 PM SALES AND MANAGEMENT TRAINEE Narrative Authorizing Provider Result Manuel Michael M.D. LAB BLOO D ADD-ON [facility] [address] [place] [address], [facility] [address] [place] [address] * (ABNORMAL) D-Dimer (11/28/2023 8:50 PM SALES AND MANAGEMENT TRAINEE) D-Dimer, P 2075(H) <=500 ng/mL FEU 11/28/2023 9:17 PM SALES AND MANAGEMENT TRAINEE [facility] Comment: D-dimer concentrations increase with age. ??For [...] (PE). Blood (Blood, Venous) 11/28/2023 8:50 PM SALES AND MANAGEMENT TRAINEE 11/28/2023 9:07 PM SALES AND MANAGEMENT TRAINEE Narrative Authorizing Provider Result Manuel Michael M.D. LAB BLOO D ADD-ON [facility] [employer] [address] [place] [address], [facility] STMA [facility] [address] [place] [address] * (ABNORMAL) CBC with Differential, Blood (11/28/2023 8:50 PM SALES AND MANAGEMENT TRAINEE) Hemoglobin 13.7 13.2 - 16.6 g/dL 11/28/2023 9:10 PM SALES AND MANAGEMENT TRAINEE [facility] Hematocrit 41.5 38.3 - 48.6 % 11/28/2023 9:10 PM SALES AND MANAGEMENT TRAINEE [facility] Erythrocytes 4.55 4.35 - 5.65 x10(12)/L 11/28/2023 9:10 PM SALES AND MANAGEMENT TRAINEE [facility] MCV 91.2 78.2 - 97.9 fL 11/28/2023 9:10 PM SALES AND MANAGEMENT TRAINEE [facility] RBC Distrib Width 13.7 11.8 - 14.5 % 11/28/2023 9:10 PM SALES AND MANAGEMENT TRAINEE [facility] Platelet Count 216 135 - 317 x10(9)/L 11/28/2023 9:10 PM SALES AND MANAGEMENT TRAINEE [facility] Leukocytes 12.2(H) 3.4 - 9.6 x10(9)/L 11/28/2023 9:10 PM SALES AND MANAGEMENT TRAINEE [facility] Neutrophils 8.98(H) 1.56 - 6.45 x10(9)/L 11/28/2023 9:10 PM SALES AND MANAGEMENT TRAINEE [facility] Lymphocytes 1.77 0.95 - 3.07 x10(9)/L 11/28/2023 9:10 PM SALES AND MANAGEMENT TRAINEE [facility] Monocytes 0.98(H) 0.26 - 0.81 x10(9)/L 11/28/2023 9:10 PM SALES AND MANAGEMENT TRAINEE [facility] Eosinophils 0.46 0.03 - 0.48 x10(9)/L 11/28/2023 9:10 PM SALES AND MANAGEMENT TRAINEE [facility] Basophils <0.03 0.01 - 0.08 x10(9)/L 11/28/2023 9:10 PM SALES AND MANAGEMENT TRAINEE [facility] Blood (Blood, Venous) 11/28/2023 8:50 PM SALES AND MANAGEMENT TRAINEE 11/28/2023 9:07 PM SALES AND MANAGEMENT TRAINEE Mesfin Borrero.D. LAB BLOO D ADD-ON [facility] [address] [place] [address], [place] STMA [facility] [address] [place] [address] [facility] [address] [place] [address] * (ABNORMAL) Venous Blood Gas and Electrolytes CG8+, POCT (11/28/2023 8:50 PM SALES AND MANAGEMENT TRAINEE) Pathologist [facility] Sample Site, POCT Venstick 11/28/2023 9:54 PM SALES AND MANAGEMENT TRAINEE PCLX Comment: ----ADDITIONAL INFORMATION---- Performed at the Point of Care pH, Venous, POCT, B 7.33 7.32 - 7.43 11/28/2023 9:54 PM SALES AND MANAGEMENT TRAINEE PCSM Comment: ----ADDITIONAL INFORMATION---- Performed at the Point of Care pCO2, Venous, POCT, B 45 41 - 51 mm Hg 11/28/2023 9:54 PM SALES AND MANAGEMENT TRAINEE PCSM Comment: ----ADDITIONAL INFORMATION---- Performed at the Point of Care pO2, Venous, POCT, B 34 Not Applicable mm Hg 11/28/2023 9:54 PM SALES AND MANAGEMENT TRAINEE PCSM Comment: ----ADDITIONAL INFORMATION---- Performed at the Point of Care Base Excess, Venous, POCT, B -2 Not Applicable mmol/L 11/28/2023 9:54 PM SALES AND MANAGEMENT TRAINEE PCSM Comment: ----ADDITIONAL INFORMATION---- Performed at the Point of Care HCO3, Venous, POCT, B 24 Not Applicable mmol/L 11/28/2023 9:54 PM SALES AND MANAGEMENT TRAINEE PCSM Comment: ----ADDITIONAL INFORMATION---- Performed at the Point of Care Sodium, POCT, B 130(L) 135 - 145 mmol/L 11/28/2023 9:54 PM SALES AND MANAGEMENT TRAINEE PCLX Comment: ----ADDITIONAL INFORMATION---- Performed at the Point of Care Potassium, POCT, B 4.7 3.6 - 5.2 mmol/L 11/28/2023 9:54 PM SALES AND MANAGEMENT TRAINEE PCLX Comment: ----ADDITIONAL INFORMATION---- Performed at the Point of Care Calcium, Ionized, POCT, B 4.90 4.65 - 5.30 mg/dL 11/28/2023 9:54 PM SALES AND MANAGEMENT TRAINEE PCLX Comment: ----ADDITIONAL INFORMATION---- Performed at the Point of Care Glucose, POCT, B 216(H) 70 - 140 mg/dL 11/28/2023 9:54 PM SALES AND MANAGEMENT TRAINEE PCLX Comment: ----ADDITIONAL INFORMATION---- Performed at the Point of Care Hematocrit, POCT, B 43.0 38.3 - 48.6 % 11/28/2023 9:54 PM SALES AND MANAGEMENT TRAINEE PCLX Comment: ----ADDITIONAL INFORMATION---- Performed at the Point of Care Blood (Blood, Venous) 11/28/2023 8:50 PM SALES AND MANAGEMENT TRAINEE 11/28/2023 8:50 PM SALES AND MANAGEMENT TRAINEE Narrative Authorizing Provider Result Manuel Michael M.D. LAB POCT ORDERABLES - DEVICE POC [facility] [address] [place] [address], [facility] PCLX [facility] [address] [place] [address] PCSM [facility] [address] [place] [address] * Influenza A/B, SARS CoV-2, PCR, Rapid Symptomatic (11/28/2023 8:47 PM SALES AND MANAGEMENT TRAINEE) [facility] Influenza A, PCR, Rapid, V Negative Negative 11/28/2023 9:33 PM SALES AND MANAGEMENT TRAINEE [facility] Influenza B, PCR, Rapid, V Negative Negative 11/28/2023 9:33 PM SALES AND MANAGEMENT TRAINEE [facility] SARS CoV-2, PCR, Rapid, V Undetected Undetected 11/28/2023 9:33 PM SALES AND MANAGEMENT TRAINEE [facility] Comment: ----ADDITIONAL INFORMATION---- This RT-PCR test was performed using the [employer] SARS-CoV-2 and Influenza A/B Reagent assay from [employer], which has received Emergency Use Authorization(EUA) by the U.S. Food and Drug Administration. Fact sheets for this Emergency Use Authorization (EUA) assay can be found at the following links: For Healthcare Providers: https://www.fda.gov/media/917931/download For Patients: https://www.fda.gov/media/028301/download Infl A/B, SARS CoV-2, PCR, Source Swab, Nasopharynx 11/28/2023 8:57 PM SALES AND MANAGEMENT TRAINEE [facility] Swab (Nasopharynx) 11/28/2023 8:47 PM SALES AND MANAGEMENT TRAINEE 11/28/2023 8:57 PM SALES AND MANAGEMENT TRAINEE Mesfin Michael M.D. LAB MICR OBIOLOGY - GENERAL ORDERABLES Performing Organization Address [facility] Co de Phone Number [facility] [address] [place] [address], [facility] STMA [facility] [address] [place] [address] * ECG 12 Lead (11/28/2023 8:47 PM SALES AND MANAGEMENT TRAINEE) Ventricular Rate ECG/Min 111 BPM MUSE MA Interval 164 ms MUSE QRSD Interval 180 ms MUSE QT Interval 390 ms MUSE QTC Interval 530 ms MUSE P Alexander 44 degrees MUSE R Alexander 59 degrees MUSE T Wave Alexander 53 degrees MUSE 11/28/2023 8:47 PM SALES AND MANAGEMENT TRAINEE 11/28/2023 9:11 PM SALES AND MANAGEMENT TRAINEE Impressions MUSE - 11/28/2023 9:11 PM SALES AND MANAGEMENT TRAINEE Dual chamber electronic pacemaker Sinus tachycardia When [...] by WALESKA Pickard Mesfin Michael M.D. ECG ORDE RABLES Performing Organization Address [facility] Co de Phone Number MUSE NA * POCUS Cardiac (11/28/2023 8:45 PM SALES AND MANAGEMENT TRAINEE) 11/28/2023 8:45 PM SALES AND MANAGEMENT TRAINEE Narrative QPATH - 11/28/2023 8:45 PM SALES AND MANAGEMENT TRAINEE Cardiac ?NTAGR-DC-SFFA ULTRASOUND - EMERGENCY MEDICINE - [facility]: ?Exam Type: ??Diagnostic ?Indication(s) for Exam: [...] Note Hector Barragan M.D. - 12/04/2023 Cardiac EGYSA-RH-FAOL ULTRASOUND - EMERGENCY MEDICINE - [facility]: Exam Type: Diagnostic Indication(s) for Exam: [...] QPATH documented in this encounter Visit Diagnoses Diagnosis Pneumonia- Primary Pneumonia Hypoxia Respiratory Failure (HCC) Respiratory Failure (HCC) documented in this encounter Admitting Diagnoses Diagnosis Pneumonia Respiratory Failure (HCC) documented in this encounter Administered Medications Inactive Administered Medications - up to 3 most recent administrations Medication Order MAR Action Action Date Dose Rate Site aspirin DR tablet 81 mg 81 mg, oral, Daily, First dose on Tue11/29/23 at 0900, Swallow whole. Do NOT crush, chew, or split tablet. Given 11/30/2023 8:02 AM SALES AND MANAGEMENT TRAINEE 81 mg Given 11/29/2023 8:19 AM SALES AND MANAGEMENT TRAINEE 81 mg calcium carbonate tablet 500 mg of calcium 500 mg of calcium, oral, Daily with breakfast, First dose on Tue11/29/23 at 0800, calcium carbonate 1250 mg (500 mg elemental) was interchanged for calcium carbonate 1500 mg (600 mg elemental) Given 11/30/2023 8:02 AM SALES AND MANAGEMENT TRAINEE 500 mg of calcium Given 11/29/2023 8:14 AM SALES AND MANAGEMENT TRAINEE 500 mg of calcium carvediloL tablet 25 mg (COREG) 25 mg, oral, 2 times daily with meals, First dose on Tue11/29/23 at 1700, Hold if systolic <100 or HR <60 Given 11/30/2023 8:02 AM SALES AND MANAGEMENT TRAINEE 25 mg Given 11/29/2023 4:35 PM SALES AND MANAGEMENT TRAINEE 25 mg cefTRIAXone in dextrose (iso osm) IVPB 2 g (ROCEPHIN) 2 g, intravenous, at 200 mL/hr, Administer over 15 Minutes, Every 24 hours, First dose on Tue11/29/23 at 2100, For 4 doses, Drug Monitoring Program: Pharmacist to adjust medication dosing based on indication and drug clearance factors., Indications: Respiratory tract infection, healthcare associated New Bag 11/29/2023 9:35 PM SALES AND MANAGEMENT TRAINEE 2 g 200 mL/hr cefTRIAXone injection 2 g (ROCEPHIN) 2 g, intravenous, Once, On Tue11/28/23 at 2057, For 1 dose, [place] IV push over 3 minutes., Drug Monitoring Program: Pharmacist to adjust medication dosing based on indication and drug clearance factors., Indications: Intra-abdominal infection, community acquired Given 11/28/2023 9:00 PM SALES AND MANAGEMENT TRAINEE 2 g dexAMETHasone injection (DECADRON) Code/trauma/sedation medication, Starting on Tue11/28/23 at 2056 Given 11/28/2023 8:57 PM SALES AND MANAGEMENT TRAINEE 10 mg Left Antecubital doxycycline 100 mg in NaCl 0.9% IVPB (VIBRAMYCIN) 100 mg, intravenous, at 100 mL/hr, Administer over 60 Minutes, Every 12 hours, First dose on Tue11/29/23 at 0900, For 9 doses, Mini-Bag Plus bag, Indications: Respiratory tract infection, healthcare associated New Bag 11/30/2023 9:47 AM SALES AND MANAGEMENT TRAINEE 100 mg 100 mL/hr New Bag 11/29/2023 9:27 PM SALES AND MANAGEMENT TRAINEE 100 mg 100 mL/hr New Bag 11/29/2023 8:49 AM SALES AND MANAGEMENT TRAINEE 100 mg 100 mL/hr doxycycline in NaCl 0.9% 100 ML IVPB (Mini-Bag Plus) 100 mg (VIBRAMYCIN) 100 mg, intravenous, at 100 mL/hr, Administer over 60 Minutes, Once, On Tue11/28/23 at 2057, For 1 dose, Mini-Bag Plus bag, Indications: Intra-abdominal infection, community acquired New Bag 11/28/2023 9:11 PM SALES AND MANAGEMENT TRAINEE 100 mg 100 mL/hr enoxaparin injection 40 mg (LOVENOX) 40 mg, subcutaneous, Daily, First dose on Tue11/29/23 at 0900 Given 11/29/2023 9:52 AM SALES AND MANAGEMENT TRAINEE 40 mg Left Lower Abdomen finasteride tablet 5 mg (PROSCAR) 5 mg, oral, Daily, First dose on Tue11/29/23 at 0900, See tube feeding guidelines for tube feeding administration instructions. Given 11/30/2023 8:04 AM SALES AND MANAGEMENT TRAINEE 5 mg Given 11/29/2023 8:14 AM SALES AND MANAGEMENT TRAINEE 5 mg insulin aspart U-100 injection 0-7 Units (NovoLOG FlexPen) 0-7 Units, subcutaneous, 3 times daily, First dose on Tue11/29/23 at 0800, Insulin Scale: Mild Correction Scale, 180 - 219: 2 units, 220 - 259: 3 units, 260 - 299: 4 units, 300 - 339: 5 units, 340 - 379: 6 units, 380 - 399: 7 units, Greater than 399: Call service writing Insulin orders Given 11/29/2023 4:28 PM SALES AND MANAGEMENT TRAINEE 2 Units Right Upper Arm (Jen k) Given 11/29/2023 11:57 AM SALES AND MANAGEMENT TRAINEE 2 Units L eft Upper Arm (Back) iopromide 370 mg iodine/mL injection 1-162 mL (ULTRAVIST) 1-162 mL, intravenous, Once in imaging, contrast, Starting on Tue11/28/23 at 2134, For 1 dose, Imaging Protocol Orders, Dose per Radiant Medication Guidelines Given 11/28/2023 9:54 PM SALES AND MANAGEMENT TRAINEE 79 mL ipratropium-albuteroL 0.5-2.5 mg/3 mL nebulizer solution 3 mL (DUONEB) 3 mL, nebulization, 4 times daily PRN, wheezing, shortness of breath, Starting on Tue11/29/23 at 1245 levothyroxine tablet 175 mcg (SYNTHROID, LEVOTHROID) 175 mcg, oral, Daily with breakfast, First dose on Tue11/29/23 at 0800 Given 11/30/2023 8:01 AM SALES AND MANAGEMENT TRAINEE 175 mcg Given 11/29/2023 8:13 AM SALES AND MANAGEMENT TRAINEE 175 mcg lisinopriL tablet 40 mg (PRINIVIL,ZESTRIL) 40 mg, oral, Daily, First dose on Tue11/29/23 at 0900 Given 11/30/2023 8:01 AM SALES AND MANAGEMENT TRAINEE 40 mg Given 11/29/2023 8:14 AM SALES AND MANAGEMENT TRAINEE 40 mg loratadine tablet 10 mg (CLARITIN) 10 mg, oral, Daily, First dose on Tue11/29/23 at 0900, loratadine 10 mg oral daily was interchanged for cetirizine 5 mg oral twice daily Given 11/30/2023 8:02 AM SALES AND MANAGEMENT TRAINEE 10 mg Given 11/29/2023 8:14 AM SALES AND MANAGEMENT TRAINEE 10 mg montelukast tablet 10 mg (SINGULAIR) 10 mg, oral, Daily at bedtime, First dose on 1/16/24 at 2100 Given 11/29/2023 9:31 PM SALES AND MANAGEMENT TRAINEE 10 mg nukmbrmaekms-jjcv-JW-Ca-minerals 400 mcg (folic acid) tablet 1 tablet (THERAPEUTIC-M) 1 tablet, oral, Daily, First dose on Tue11/29/23 at 0900 Given 11/30/2023 8:02 AM SALES AND MANAGEMENT TRAINEE 1 tablet Given 11/29/2023 8:13 AM SALES AND MANAGEMENT TRAINEE 1 tablet rosuvastatin tablet 40 mg (CRESTOR) 40 mg, oral, Daily, First dose on Tue11/29/23 at 0900 Given 11/30/2023 8:02 AM SALES AND MANAGEMENT TRAINEE 40 mg Given 11/29/2023 8:15 AM SALES AND MANAGEMENT TRAINEE 40 mg sennosides-docusate sodium 8.6-50 mg per tablet 1 tablet (SENOKOT-S) 1 tablet, oral, 2 times daily, First dose on Tue11/29/23 at 0900, Do not give if patient has diarrhea. Given 11/29/2023 9:31 PM SALES AND MANAGEMENT TRAINEE 1 tablet Given 11/29/2023 8:14 AM SALES AND MANAGEMENT TRAINEE 1 tablet sodium chloride (PF) 0.9 % injection 1-100 mL 1-100 mL, intravenous, Once, On Tue11/28/23 at 2135, For 1 dose, Imaging Protocol Orders Given 11/28/2023 9:54 PM SALES AND MANAGEMENT TRAINEE 30 mL tamsulosin 24 hr capsule 0.8 mg (FLOMAX) 0.8 mg, oral, Daily at bedtime, First dose on Tue11/29/23 at 2100, For 359 days, Swallow whole. Do NOT crush, chew or open capsule. Given 11/29/2023 9:31 PM SALES AND MANAGEMENT TRAINEE 0.8 mg vancomycin in NaCl 0.9% IVPB 1,500 mg 1,500 mg (rounded from 1,556 mg = 20 mg/kg ? 77.8 kg), intravenous, at 167 mL/hr, Administer over 90 Minutes, Once, On Tue11/28/23 at 2214, For 1 dose, Drug Monitoring Program: Pharmacist to adjust medication dosing based on indication and drug clearance factors., Indications: Respiratory tract infection, healthcare associated New Bag 11/28/2023 11:32 PM SALES AND MANAGEMENT TRAINEE 1,500 mg 167 mL/h r documented in this encounter Active and Recently Administered Medications Times are shown in SALES AND MANAGEMENT TRAINEE. Scheduled Medication Order 11/28/2023 11/29/2023 11/30/[address] tablet 81 mg 81 mg, oral, Daily, First dose on Tue11/29/23 at 0900, Swallow whole. Do NOT crush, chew, or split tablet. 0819 (Given - Provider: Che Jasso R.N.) 0802 (Given - Provider: Bela Haley R.N.) calcium carbonate tablet 500 mg of calcium 500 mg of calcium, oral, Daily with breakfast, First dose on Tue11/29/23 at 0800, calcium carbonate 1250 mg (500 mg elemental) was interchanged for calcium carbonate 1500 mg (600 mg elemental) 0814 (Given - Provider: Che Jasso R.N.) 08 (Given - Provider: Bela Haley R.N.) carvediloL tablet 25 mg (COREG) 25 mg, oral, 2 times daily with meals, First dose on Tue11/29/23 at 1700, Hold if systolic <100 or HR <60 1635 (Given - Provider: Che Jasso R.N.) 08 (Given - Provider: Bela Haley R.N.) cefTRIAXone in dextrose (iso osm) IVPB 2 g (ROCEPHIN) 2 g, intravenous, at 200 mL/hr, Administer over 15 Minutes, Every 24 hours, First dose on Tue11/29/23 at 2100, For 4 doses, Drug Monitoring Program: Pharmacist to adjust medication dosing based on indication and drug clearance factors., Indications: Respiratory tract infection, healthcare associated 2134 (New Bag - Provider: Jimmy Rios R.N.) cefTRIAXone injection 2 g (ROCEPHIN) (COMPLETED) 2 g, intravenous, Once, On Tue11/28/23 at 2058, For 1 dose, [place]minster IV push over 3 minutes., Drug Monitoring Program: Pharmacist to adjust medication dosing based on indication and drug clearance factors., Indications: Intra-abdominal infection, community acquired 2100 (Given - Provider: Beverley Menezes R.N.) doxycycline 100 mg in NaCl 0.9% IVPB (VIBRAMYCIN) 100 mg, intravenous, at 100 mL/hr, Administer over 60 Minutes, Every 12 hours, First dose on Tue11/29/23 at 0900, For 9 doses, Mini-Bag Plus bag, Indications: Respiratory tract infection, healthcare associated 0849 (New Bag - Provider: Che Jasso R.N.)2126 (New Bag - Provider: Jimmy Rios R.N.)2134 (Stopped - Provider: Jimmy Rios R.N.) 0947 (New Bag - Provider: Bela Haley R.N.) doxycycline in NaCl 0.9% 100 ML IVPB (Mini-Bag Plus) 100 mg (VIBRAMYCIN) (COMPLETED) 100 mg, intravenous, at 100 mL/hr, Administer over 60 Minutes, Once, On Tue11/28/23 at 2058, For 1 dose, Mini-Bag Plus bag, Indications: Intra-abdominal infection, community acquired 2110 (New Bag - Provider: Beverley Menezes R.N.)2223 (Stopped - Provider: Beverley Menezes R.N.) enoxaparin injection 40 mg (LOVENOX) 40 mg, subcutaneous, Daily, First dose on Tue11/29/23 at 0900 0952 (Given - Provider: Che Jasso R.N.) 0803 (Not Given - Provider: Bela Haley R.N. - Reason: Patient/family refused) finasteride tablet 5 mg (PROSCAR) 5 mg, oral, Daily, First dose on Tue11/29/23 at 0900, See tube feeding guidelines for tube feeding administration instructions. 0814 (Given - Provider: Che Jasso R.N.) 0804 (Given - Provider: Bela Haley R.N.) insulin aspart U-100 injection 0-7 Units (NovoLOG FlexPen) 0-7 Units, subcutaneous, 3 times daily, First dose on Tue11/29/23 at 0800, Insulin Scale: Mild Correction Scale, 180 - 219: 2 units, 220 - 259: 3 units, 260 - 299: 4 units, 300 - 339: 5 units, 340 - 379: 6 units, 380 - 399: 7 units, Greater than 399: Call service writing Insulin orders 0900 (Not Given - Provider: Che Jasso R.N. - Reason: Order parameters not met)1157 (Given - Provider: Che Jasso R.N.)1628 (Given - Provider: Che Jasso R.N.) 0916 (Not Given - Provider: Bela Haley R.N. - Reason: Order parameters not met)1207 (Not Given - Provider: Bela Haley R.N. - Reason: Order parameters not met) levothyroxine tablet 175 mcg (SYNTHROID, LEVOTHROID) 175 mcg, oral, Daily with breakfast, First dose on Tue11/29/23 at 0800 0813 (Given - Provider: Che Jasso R.N.) 08 (Given - Provider: Bela Haley R.N.) lisinopriL tablet 40 mg (PRINIVIL,ZESTRIL) 40 mg, oral, Daily, First dose on Tue11/29/23 at 0900 0814 (Given - Provider: Che Jasos R.N.) 0801 (Given - Provider: Bela Haley R.N.) loratadine tablet 10 mg (CLARITIN) 10 mg, oral, Daily, First dose on Tue11/29/23 at 0900, loratadine 10 mg oral daily was interchanged for cetirizine 5 mg oral twice daily 0814 (Given - Provider: Che Jasso R.N.) 08 (Given - Provider: Bela Haley R.N.) montelukast tablet 10 mg (SINGULAIR) 10 mg, oral, Daily at bedtime, First dose on Tue11/29/23 at 2100 2131 (Given - Provider: Jimmy Rios R.N.) ulsyxbmescwd-xgid-MX-Ca-m inerals 400 mcg (folic acid) tablet 1 tablet (THERAPEUTIC-M) 1 tablet, oral, Daily, First dose on Tue11/29/23 at 0900 0813 (Given - Provider: Che Jasso R.N.) 0802 (Given - Provider: Bela Haley R.N.) rosuvastatin tablet 40 mg (CRESTOR) 40 mg, oral, Daily, First dose on Tue11/29/23 at 0900 0815 (Given - Provider: Che Jasso R.N.) 0802 (Given - Provider: Bela Haley R.N.) sennosides-docusate sodium 8.6-50 mg per tablet 1 tablet (SENOKOT-S) 1 tablet, oral, 2 times daily, First dose on Tue11/29/23 at 0900, Do not give if patient has diarrhea. 14 (Given - Provider: Che Jasso R.N.)2130 (Given - Provider: Jimmy Rios R.N.) 807 (Not Given - Provider: Bela Haley R.N. - Reason: Patient/family refused) sodium chloride (PF) 0.9 % injection 1-100 mL (COMPLETED) 1-100 mL, intravenous, Once, On Tue11/28/23 at 2135, For 1 dose, Imaging Protocol Orders 2153 (Given - Provider: Maye Jade R.N.) tamsulosin 24 hr capsule 0.8 mg (FLOMAX) 0.8 mg, oral, Daily at bedtime, First dose on Tue11/29/23 at 2100, For 359 days, Swallow whole. Do NOT crush, chew or open capsule. 2130 (Given - Provider: Jimmy Rios R.N.) vancomycin in NaCl 0.9% IVPB 1,500 mg (COMPLETED) 1,500 mg (rounded from 1,556 mg = 20 mg/kg ? 77.8 kg), intravenous, at 167 mL/hr, Administer over 90 Minutes, Once, On Tue11/28/23 at 2214, For 1 dose, Drug Monitoring Program: Pharmacist to adjust medication dosing based on indication and drug clearance factors., Indications: Respiratory tract infection, healthcare associated 2332 (New Bag - Provider: Eduarda Landry R.N. - Comment: started in ED, Received ongoing half of bag) PRN Medication Order 11/28/2023 11/29/2023 11/30/2023 acetaminophen tablet 1,000 mg (TYLENOL) 1,000 mg, oral, 4 times daily PRN, mild pain or score 1-3 of 10, Starting on Tue11/28/23 at 2315 bisacodyL suppository 10 mg (DULCOLAX) 10 mg, rectal, Daily PRN, constipation, Starting on Tue11/28/23 at 2315, Ordered sequence of administration: polyethylene glycol, then bisacodyl until BM achieved. dexAMETHasone injection (DECADRON) (COMPLETED) Code/trauma/sedation medication, Starting on Tue11/28/23 at 2057 2057 (Given - Provider: Manuel Ramos RCarmineNCarmine) iopromide 370 mg iodine/mL injection 1-162 mL (ULTRAVIST) (COMPLETED) 1-162 mL, intravenous, Once in imaging, contrast, Starting on Tue11/28/23 at 2134, For 1 dose, Imaging Protocol Orders, Dose per Radiant Medication Guidelines 2153 (Given - Provider: Maye Jade R.N.) ipratropium-albuteroL 0.5-2.5 mg/3 mL nebulizer solution 3 mL (DUONEB) 3 mL, nebulization, 4 times daily PRN, wheezing, shortness of breath, Starting on Tue11/29/23 at 1245 polyethylene glycol powder packet 17 g (MIRALAX) 17 g, oral, Daily PRN, constipation, Starting on Tue11/28/23 at 2315, Ordered sequence of administration: polyethylene glycol, then bisacodyl until BM achieved. Avoid mixing with starch-based thickened liquids. 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
--- OUTSIDE RECORDS SUMMARY | 2023-12-09 00:06 | XMS_ITS | Encounter Summary ---
Author Name Unknown Organization [facility] Address [address] [place] [address] Care Team Providers Care Certified Hand Therapist Name Role Phone Elsewhere, Pcp Primary Care Provider Unavailabl e Reason for Visit * Reason Comments Med Refill Encounter Details Date Type Department Care Team ([facility] st Contact Info) Description 11/22/2023 Refill Division of Endocrinology in [place], [place] [address] [place] [address] Loni Wu M.D. [address] [place] [phone] Med Refill Social History Tobacco Use Types Packs/Day Years Used Date Smoking Tobacco: Never Passive Smoke Exposure: Past Smokeless Tobacco: Never Passive Exposure Comments:Gr owing up for Many years - Father Alcohol Use Standard Drinks/Week Comments No 0 (1 standard drink = 0.6 oz pur e alcohol) Social Connection and Isolation Panel [NHANES] A nswer Date Recorded Frequency of Communication with Friends and Fami ly Not on file 05/31/2020 How often do you get together with friends or re latives? Once a week 05/31/2020 Attends Nondenominational Services Not on file 05/31 Active Member [...] Date Recorded PHQ-2 Score 0 10/27/2023 [facility] - Occupational Stress Questionnaire Answer Date [...] the money to buy more. Never true 10/27/20 Within the past 12 months, t he food you bought just didn't last and you didn't have money to get more. Never true 10/27/2023 [facility]AP[facility] - Transportation Answer Date Re corded In the past 12 months, has l ack of transportation kept you from medical appointments or from getting medications? No 10/14 In the past 12 months, has l ack of transportation kept you from meetings, work, or from getting things needed for daily living? No 10/27/2023 Nutrition Answer Date Recorded Nutrition: EVOO Fat [...] your living situation today? I have a [facility] place to live 10/31/2023 Education Answer Date Recorded What is the [...] st Contact Info) Description 12/13/2023 8:50 AM NEWS ANCHOR Appointment Department of Laboratory Medicine and Pathology, [facility] in [place], [place] [address] [place] [phone] Natasha Mullins APRN, Radha.N.P., M.S., M.S.N. [address] [place] [phone] 12/13/2023 11:00 AM NEWS ANCHOR Office Visit Department of Cardiovascular Medicine in [place], [place] [address] [place] [phone] Natasha Mullins APRN, Radha.N.Franklin., M.S., M.S.N. [address] [place] [phone] 02/02/2024 9:15 AM CDT Appointment Department of Cardiovascular Diseases in [place], [place] [address] [place] [phone] Fazal Reynoso M.D. [address] [place] [phone] documented as of this encounter Visit Diagnoses Not on filedocumented in this encounter Care Teams Certified Hand Therapist Relationship Specialty Start Date End Date Elsewhere, Pcp PCP - General Family Medicine 10/25/18 documented as of this encounter
--- OUTSIDE RECORDS SUMMARY | 2023-12-09 00:06 | XMS_ITS | Encounter Summary ---
Author Name Unknown Organization [facility] Address [address] [place] [address] Care Team Providers Care Wire Splicer Name Role Phone Elsewhere, Pcp Primary Care Provider Unavailabl e Reason for Visit * Reason Onset Date Comments DEVICE REGISTRATION 11/02/2023 COMMUNICATIO N Encounter Details Date Type Department Care Team (Latest Contact Info) Description 11/02/2023 Clinical Communication Department of Cardiovascular Medicine in [place], [place] [address] [place] [address] Kg Holguin M.D. [address] [place] [phone] DEVICE REGISTRATION (COMMUNICATION) Social History Tobacco Use Types Packs/Day Years Used Date Smoking Tobacco: Never Passive Smoke Exposure: Past Smokeless Tobacco: Never Passive Exposure Comments:Gr owing up for Many years - Father Alcohol Use Standard Drinks/Week Comments No 0 (1 standard drink = 0.6 oz pur e alcohol) [facility] Utilities Answer Date Recorded In the [...] re latives? Once a week 05/31/2020 Attends Mandaeism Services Not on file 05/31 Active Member [...] Answer Date Recorded PHQ-2 Score 0 10/27/2023 [facility] - [...] your living situation today? I have a [facility] place to live 11/29/2023 Education [...] encounter Miscellaneous Notes * Telephone Encounter - Di Bernstein - 11/02/2023 8:32 AM CST Images from the original note were not included. 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, in [place], [place] [address] [place] [phone] Natasha Mullins APRN, C.N.P., M.S., M.S.N. [address] [place] [phone] 12/13/2023 11:00 AM PULP MILL SUPERVISOR Office Visit Department of Cardiovascular Medicine in [place], [place] [address] [place] [phone] Natasha Mullins APRN, C.N.P., M.S., M.S.N. [address] [place] [phone] 02/02/2024 9:15 AM CDT Appointment Department of Cardiovascular Diseases in [place], [place] [address] [place] [phone] Fazal Reynoso M.D. [address] [place] [phone] documented as of this encounter Visit Diagnoses Not on filedocumented in this encounter Additional Health Concerns Infection Onset Date Last Indicated Resolved Time COVID19 Pending 11/28/2023 11/28/2023 11/28/2023 9 :33 PM PULP MILL SUPERVISOR documented as of this encounter Care Teams Wire Splicer Relationship Specialty Start Date End Date Elsewhere, Pcp PCP - General Family Medicine 10/25/18 documented as of this encounter
--- OUTSIDE RECORDS SUMMARY | 2023-12-09 00:06 | XMS_ITS | Encounter Summary ---
Author Name Unknown Organization [facility] Address [address] [place] [address] Care Team Providers Care Hand Mica Plate Layer Name Role Phone Elsewhere, Pcp Primary Care Provider Unavailabl e Reason for Referral * Outpatient (Routine) - Authorized Specialty Diagnoses / Procedures Referred By Miguel arzola Referred To Contact Cardiovascular Disease Eugene Slaughter M.D., Ph.D. [address] [place] [address] [facility] Referral ID Status Reason Start Date Expiration Date V isits Requested Visits Authorized [id number] Authorized 11/15/2023 11/14/2026 1 1 CTOR TRANSLATION Reason for Visit * Outpatient (Routine) - Closed Specialty Diagnoses / Procedures Referred By Miguel arzola Referred To Contact Cardiovascular Disease Natasha Mullins APRN, C.N.P., M.S., M.S.N. [address] [place] [address] [facility] Referral ID Status Reason Start Date Expiration Date Visits Re quested Visits Authorized [id number] Closed 09/07/2023 09/06/2026 1 1 Encounter Details Date Type Department Care Team (Latest Contact Info) Description 11/15/2023 3:00 PM DIRECTOR TRANSLATION Office Visit Department of Cardiovascular Medicine in [place], [place] [address] [place] [address] Eugene Slaughter M.D., Ph.D. [address] [place] [address] Cardiomyopathy Ischemic (Primary Dx) Social History Tobacco Use Types Packs/Day Years [...] re latives? Once a week 05/31/2020 Attends [employer] Not on file 05/31 Active Member [...] Answer Date Recorded PHQ-2 Score 0 10/27/2023 [facility] of Occupat ional Health - Occupational Stress [...] your living situation today? I have a [facility] place to live 10/31/2023 Education Answer Date [...] Sign Reading Time Taken Comments Blood Pressure 144/79 11/15/2023 2:48 PM DIRECTOR TRANSLATION Pulse 76 11/15/2023 2:48 PM DIRECTOR TRANSLATION Temperature - - Respiratory Rate - - Oxygen Saturation - - Inhaled Oxygen Concentration - - Weight 77.7 kg (171 lb 6.5 oz) 11/15/2023 2:48 P M DIRECTOR TRANSLATION Height 172.4 cm (5' 7.87) 11/15/2023 2:48 PM CS T Body Mass Index 26.16 11/15/2023 2:48 PM DIRECTOR TRANSLATION documented in this encounter Progress Notes * Eugene Slaughter M.D., Ph.D. - 11/15/2023 3:00 PM CST Images from the original note were not included. HEART FAILURE CLINIC SUBSEQUENT VISIT SUBJECTIVE PRIMARY CARE PROVIDER: ELSEWHERE, PCP HISTORY OF PRESENT ILLNESS Levi Khanna is a very pleasant 78 y.o. male with a medical history significant for ICM (LVEF 45-50%, NYHA II, Stage C), CAD s/p PCI SANTIAGO pLAD & mLAD in 2014, known pRCA [employer], moderate aortic stenosis, HTN, HLD, untreated indolent B-cell lymphoma, metastatic recurrent papillary thyroid carcinoma diagnosed in 2013 s/p total thyroidectomy + radioactive iodine treatment in 2013 complicated by recurrence in 2014 s/p 2nd dosage of radioactive iodine in 2014 and CKD III who comes in as partof his heart failure care. Patient was last seen in clinic about one year ago. At the time he was found to have a PVC buren of19% and had a nuclear stress test showing medium size mostly reversible perfusion defect along the anterior and septal segments from base to apex. Medical management for the ischemia was pursued and was referred to EP who felt that his thyroid hormone replacement was the cause. He had another Holter monitor that showed a decrease in PVC burden to 2% in 01/2023. He had been doing well until 10/21/2023 when he went to local ED because of orthopnea, URI symptomsand worsening shortness of breath. EKG at the time showed second degree Mobitz type II. Then on 10/30/23 patient went back to ED as dyspnea and orthopnea were worsening. EKG demonstrated 2:1 AV block. He therefore underwent dual chamber PPM on 11/02/23. Since then, patient has been feeling well and states above symptoms resolved. He denies fever, chills, night sweats, headaches, sore throat, rhinorrhea, vision changes, coughing, chest pain, shortness of breath, palpitations, abdominal pain, nausea, vomiting, diarrhea, constipation, melena, hematochezia, dysuria, hematuria, joint pain, focal weakness, tingling, numbness, presyncope, syncope, paroxysmal nocturnal dyspnea and orthopnea. He is fully compliant with his medications. REVIEW OF SYSTEMS Reviewed encounter review of systems and pertinent responses are noted in the history. The following portions of the patient's history were also reviewed and updated as appropriate: Allergies, current medications, outpatient medications, family history, medical history, social history, surgical history and problem list. CURRENT MEDICATIONS Per HER ALLERGIES/CONTRAINDICATIONS Allergies Allergen Reactions Iodinated Contrast Media Itching and Rash Possible adverse reaction to iodinated contrast given at eye center in 2006. Visi [address] scan on 12/12/13. No reaction noted. Penicillin Itching Pneumococcal Vaccine Headache Headache and body ache Shellfish Containing Products GI intolerance Nausea & Vomiting Nazareth Pollen Itching Seasonal Allergies: Allergic Rhinitis, Itchy watery eyes Clindamycin Other (see comments) Please Verify & complete Reaction & Severity barboza! Mold Other (see comments) Please Verify & complete Reaction & Severity barboza! Penicillins Other (see comments) Please Verify & complete Reaction & Severity barboza! House Dust Mite Other (see comments) SOCIAL HISTORY Social History Tobacco Use Smoking status: Never Passive exposure: Past (Growing up for Many years - Father) Smokeless tobacco: Never Vaping Use Vaping Use: never used Substance Use Topics Alcohol use: No Drug use: No FAMILY HISTORY Family History Problem Relation Age of Onset Coronary artery disease Father Hypertension Mother Asthma Mother Migraines Mother Old age Mother Stroke Sister No Known Problems Sister No Known Problems Daughter No Known Problems Son Heart disease Paternal Grandmother No Known Problems Paternal Grandfather Stroke Maternal Grandmother Heart disease Maternal Grandfather OBJECTIVE VITAL SIGNS BP 144/79 (BP Location: Left arm, Patient Position: Sitting, Cuff Size: Regular) Pulse 76 Ht 172.4 cm Wt 77.7 kg BMI 26.16 kg/m?? PHYSICAL EXAMINATION General: AAOx3, NAD Head: NCAT Eyes: PERRLA, EOMI, anicteric sclera Oropharynx: No ulcers, moist mucous membranes Heart: regular rhythm, normal rate, 3/6 systolic murmur in right upper sternal border, no rubs, no gallops, JVP 5cmH2O Lungs: Clear to auscultation bilaterally, no wheezes, crackles or rhonchi Abdomen: Non tender, non distended, no organomegaly, +bs Extremities: WWPx2, no edema Skin:No rashes or notable lesions were appreciated, no cyanosis Neuro: No gross motor deficit Psych Euthymic DIAGNOSTICS No results found for: SIROLIMUS, TACROLIMUS Lab Results Component Value Date WBC 6.8 11/10/2023 HGB 12.8 (L) 11/10/2023 HCT 37.2 11/10/2023 MCV 91 11/10/2023 PLT 216 11/10/2023 EXT Neutrophils Date Value Ref Range Status 11/10/2023 4.0 1.7 - 7.0 thou/cu mm Final EXT Lymphocytes Date Value Ref Range Status 11/10/2023 21.6 % Final 11/10/2023 1.5 0.9 - 2.9 thou/cu mm Final EXT Eosinophils Date Value Ref Range Status 11/10/2023 0.5 (H) <0.5 thou/cu mm Final EXT Eosinophils % Date Value Ref Range Status 11/10/2023 6.6 % Final Lab Results Component Value Date NA 128 (L) 11/10/2023 KSERUM 4.5 11/10/2023 KPLASMA 4.2 10/30/2023 CL 96 (L) 11/10/2023 BICARB 21 (L) 11/10/2023 CREATININE 0.97 11/10/2023 EGFRBLKAA >90 04/08/2022 EGFRNONBLKAA 86 04/08/2022 EGFR 89 11/02/2023 BUN 24 (H) 11/10/2023 ANIONGAP 11 11/10/2023 GLUCOSE 114 (H) 11/10/2023 CALCIUM 8.8 11/10/2023 Lab Results Component Value Date ALT 20 10/31/2023 AST 25 10/31/2023 ALKPHOS 112 10/31/2023 BILITOT 0.5 10/31/2023 Lab Results Component Value Date TSH 0.6 10/31/2023 NT-Pro BNP Date Value Ref Range Status 03/22/2019 258 (H) <=113 pg/mL Final Comment: NT-proBNP values less than 300 pg/mL have a 99% negative predictive value for excluding acute congestive heart failure. A cutoff of 1200 pg/mL for patients with an eGFR<60 yields a diagnostic sensitivity and specificity of 89% and 72% for acute congestive heart failure. A diagnostic NT-proBNP cutoff of 900 pg/mL has been suggested in adults 50-75 years of age in the absence of renal failure. Lab Results Component Value Date HGBA1C 6.1 (H) 10/31/2023 EKG 11/02/23 Device interrogation 11/02/23 PRESENTING RHYTHM: Atrial sense Ventricular pace at 75 bpm UNDERLYING RHYTHM: Sinus w/sinus rate at 75 bpm w/CHB and junctional escape at 38 bpm ATRIAL ARRHYTHMIAS: No episodes VENTRICULAR ARRHYTHMIAS: No episodes BATTERY LONGEVITY: Expected battery longevity trends reviewed and are stable and consistent with device settings and use. SUMMARY: All device function appears normal. The left pectoral incision is in the process of healing with a mepilex in place and a slight hematoma. PROGRAMMING CHANGES: No changes Echocardiogram 10/31/23 1. Severely enlarged left ventricular chamber size. 2. Calculated 2-D biplane volumetric left ventricular ejection fraction of 51%. 3. Regional wall motion abnormalities were present (see wall motion graphics). 4. Enlarged right ventricular chamber size by visual estimate. 5. Mildly reduced right ventricular systolic function. 6. Estimated right ventricular systolic pressure 67 mmHg (systolic blood pressure 152 mmHg). 7. Moderate aortic valve stenosis. [...] PA systolic pressure and lower cardiac output. Stress test 11/26/22 ASSESSMENT / PLAN 78 y.o. male with a medical history significant for ICM (LVEF 45-50%, NYHA II, Stage C), CAD s/p PCI SANTIAGO pLAD & mLAD in 2014, known pRCA [employer], moderate aortic stenosis, high degree AV block s/p dual chamber PPM 11/02/23, HTN, HLD, untreated indolent B-cell lymphoma, metastatic recurrent papillary thyroid carcinoma diagnosed in 2013 s/p total thyroidectomy + radioactive iodine treatment in 2013complicated by recurrence in 2014 s/p 2nd dosage of radioactive iodine in 2014 and CKD III who comes in as part of his heart failure care. 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 Symptoms of dyspnea have resolved since PPM. He is BB and ACEi. Since LVEF has improved since prior and patient asymptomatic while also hyponatremic will avoid MRA. Also, he has longstanding issues with urinary retentionand bacteriuria, thus SGLT2i not appropriate. Will continue with current medical regimen. - Continue aspirin 81mg PO Daily - Continue carvedilol 25mg PO BID - Continue lisinopril 40mg PO Daily - Continue rosuvastatin 40mg PO Daily - No ICD indications #Moderate aortic stenosis (Vmax 3.0m/s, mean PG 20, CHARLENE 1.3cm2 DVI 0.27) - Continue to monitor with serial echo #High degree AV block s/p dual chamber PPM 11/02/23 Will monitor if symptoms of heart failure ensue as patient is 95% RV paced with structural heart disease and QRS of 170ms. - GDMT as above #HTN #HLD Last LDL in 2021 was 111. Level is unacceptable based on past CAD - Continue rosuvastatin as above - Antihypertensive as above - Repeat lipid panel FOLLOWUP: 6 months #1 Heart Failure NOS #2 Hyperlipidemia #3 Congestive Heart Failure Systolic Chronic Heart Failure With Reduced Ejection Fraction (HCC) #4 Atherosclerotic Heart Disease Of [place] Coronary Artery Without Angina Pectoris #5 Cardiomyopathy Ischemic #6 Malignant Neoplasm Of Thyroid (HCC) #7 Unspecified B Cell Lymphoma Lymph Nodes Of Multiple Sites (HCC) #8 Follow Up Examination Postoperative Visit #9 Lesion Skin Polypoid #10 Lymphadenopathy Cervical #11 Malignant Neoplasm Of Thyroid Papillary (HCC) #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 Explained diagnosis and treatment plan; patient expressed understanding of the content. CTOR TRANSLATION documented in this encounter Plan of Treatment Upcoming Encounters Date Type Department Care Team (Late st Contact Info) Description 12/13/2023 8:50 AM DIRECTOR TRANSLATION Appointment Department of Laboratory Medicine and Pathology, [facility], in [place], [place] [address] [place] [address] Natasha Mullins APRN, C.NLibrado., M.S., M.S.N. [address] [place] [phone] 12/13/2023 11:00 AM DIRECTOR TRANSLATION Office Visit Department of Cardiovascular Medicine in [place], [place] [address] [place] [phone] Natasha Mullins APRN, Radha.NRenetta, M.S., M.S.N. [address] [place] [phone] 02/02/2024 9:15 AM CDT Appointment Department of Cardiovascular Diseases in [place], [place] [address] [place] [phone] Fazal Reynoso M.D. [address] [place] [phone] Scheduled Referrals Name Type Priority Associated Diagnoses Order Schedule Cardiovascular Disease office visit (clinic) HF Clinic Outpatient Referral Routine Expected: 05/15/2024 (Approximate), Expires: 02/13/2025 documented as of this encounter Results * Lipid Panel (12/05/2023 12:19 PM DIRECTOR TRANSLATION) Triglycerides 89 mg/dL 12/05/2023 1:38 PM DIRECTOR TRANSLATION DTL Comment: ----REFERENCE VALUE---- Normal: <150 mg/dL Borderline High: 150-199 mg/dL High: 200-499 mg/dL Very High: > or =500 mg/dL Cholesterol, Total 162 mg/dL 2023 1:38 PM DIRECTOR TRANSLATION DTL Comment: ----REFERENCE VALUE---- Desirable: < 200 mg/dL Borderline High: 200 - 239 mg/dL High: > or = 240 mg/dL Cholesterol, LDL, Calculated 82 mg/dL 12/05/2023 1:38 PM DIRECTOR TRANSLATION DTL Comment: ----REFERENCE VALUE---- Desirable: <100 mg/dL Above Desirable: 100-129 mg/dL Borderline High: 130-159 mg/dL High: 160-189 mg/dL Very High: >=190 mg/dL ----ADDITIONAL INFORMATION---- LDL cholesterol calculated using the Rodriguez/NIH equation. Cholesterol, HDL, S 64 >=40 mg/dL 12/05/2023 1:38 PM DIRECTOR TRANSLATION DTL Cholesterol, Non-HDL, Calculated 98 mg/dL 12/05/2023 1:38 PM DIRECTOR TRANSLATION DTL Comment: ----REFERENCE VALUE---- Desirable: <130 mg/dL Above Desirable: 130-159 mg/dL Borderline High: 160-189 mg/dL High: 190-219 mg/dL Very High: > or =220 mg/dL Fasting (8 HR or more) No 12/05/2023 1:03 PM DIRECTOR TRANSLATION DTL Blood (Blood, Venous) 12/05/2023 12:19 PM DIRECTOR TRANSLATION 12/05/2023 1:03 PM DIRECTOR TRANSLATION Eugene Slaughter M.D., Ph.D. LAB BLOO D ADD-ON [facility] [place] [address] [place] [address], [facility] [address] [place] [address] documented in this encounter Visit Diagnoses Diagnosis Cardiomyopathy Ischemic- Primary documented in this encounter Care Teams Hand Mica Plate Layer Relationship Specialty Start Date End Date Elsewhere, Pcp PCP - General Family Medicine 10/25/18 documented as of this encounter
--- OUTSIDE RECORDS SUMMARY | 2023-12-09 00:06 | XMS_ITS | Encounter Summary ---
Author Name Unknown Organization [facility] Address [address] [place] [address] Care Team Providers Care Unit Clerk Name Role Phone Elsewhere, Pcp Primary Care Provider Unavailabl e Reason for Visit * Reason Onset Date Comments Pre-visit Intake 11/18/2023 Encounter Details Date Type Department Care Team (Latest Contact Info) Description 11/18/2023 7:00 AM DESIGN PRINTER BALLOON Clinical Communication Virtual Review in [place], [place] [address] [place], [place] [address] Pre-visit Intake Social History Tobacco Use Types Packs/Day Years [...] re latives? Once a week 05/31/2020 Attends [employer] Services Not on file 05/31 Active Member [...] Answer Date Recorded PHQ-2 Score 0 10/27/2023 [facility] Occupat ional Health - [...] your living situation today? I have a [facility] place to live 10/31/2023 Education Answer [...] st Contact Info) Description 12/13/2023 8:50 AM DESIGN PRINTER BALLOON Appointment Department of Laboratory Medicine and Pathology, [facility], in [place], [place] [address] [place] [phone] Natasha Mullins APRN, Radha.NLibrado., M.S., M.S.N. [address] [place] [phone] 12/13/2023 11:00 AM DESIGN PRINTER BALLOON Office Visit Department of Cardiovascular Medicine in [place], [place] [address] [place] [phone] Natasha Mullins APRN, Radha.NLibrado., M.S., M.S.N. [address] [place] [phone] 02/02/2024 9:15 AM CDT Appointment Department of Cardiovascular Diseases in [place], [place] [address] [place] [phone] Fazal Reynoso M.D. [address] [place] [phone] documented as of this encounter Visit Diagnoses Not on filedocumented in this encounter Care Teams Unit Clerk Relationship Specialty Start Date End Date Elsewhere, Pcp PCP - General Family Medicine 10/25/18 documented as of this encounter
--- OUTSIDE RECORDS SUMMARY | 2023-12-09 00:06 | XMS_ITS | Encounter Summary ---
Author Name Unknown Organization [facility] Address [address] [place] [address] Care Team Providers Care Trench Pipe Layer Helper Name Role Phone Elsewhere, Pcp Primary Care Provider Unavailabl e Encounter Details Date Type Department Care Team (Late st Contact Info) Description 11/15/2023 Documentation Department of Cardiovascular Medicine in [place], [place] [address] [place] [phone] Radha Gray Social History Tobacco Use Types Packs/Day Years [...] re latives? Once a week 05/31/2020 Attends [employer] Services Not on file 05/31 Active Member [...] Answer Date Recorded PHQ-2 Score 0 10/27/2023 [facility] - Occupational Stress Questionnaire Answer Date [...] your living situation today? I have a [facility] place to live 10/31/2023 Education Answer [...] st Contact Info) Description 12/13/2023 8:50 AM FINE JEWELRY SALES ASSOCIATE Appointment Department of Laboratory Medicine and Pathology, [facility], in [place], [place] [address] [place] [phone] Natasha Mullins APRN, Radha.NRenetta, M.S., M.S.N. [address] [place] [phone] 12/13/2023 11:00 AM FINE JEWELRY SALES ASSOCIATE Office Visit Department of Cardiovascular Medicine in [place], [place] [address] [place] [phone] Natasha Mullins APRN, Radha.N.[place]., M.S., M.S.N. [address] [place] [phone] 02/02/2024 9:15 AM CDT Appointment Department of Cardiovascular Diseases in [place], [place] [address] [place] [phone] Fazal Reynoso M.D. [address] [place] [phone] documented as of this encounter Visit Diagnoses Not on filedocumented in this encounter Care Teams Trench Pipe Layer Helper Relationship Specialty Start Date End Date Elsewhere, Pcp PCP - General Family Medicine 10/25/18 documented as of this encounter
--- OUTSIDE RECORDS SUMMARY | 2023-12-09 00:06 | XMS_ITS | Encounter Summary ---
Author Name Unknown Organization [facility] Address [address] [place] [address] Care Team Providers Care Cap Jewel Plate Assembler Name Role Phone Elsewhere, Pcp Primary Care Provider Unavailabl e Encounter Details Date Type Department Care Team (Latest Contact Info) Description 11/25/2023 4:00 AM BIT TRIPOLER - 11/25/2023 11:59 PM BIT TRIPOLER Hospital Encounter Department of Cardiovascular Diseases in [place], [place] [address] [place] [phone] Dylan Dietrich M.B.B.S. [address] [place] [phone] Encounter For Checking And Testing Of Cardiac [...] re latives? Once a week 05/31/2020 Attends [facility] Not on file 05/31 Active Member [...] Answer Date Recorded PHQ-2 Score 0 10/27/2023 [facility] [place] [facility] - Occupational Stress [...] your living situation today? I have a [facility] place to live 10/31/2023 [...] at bedtime. 60 capsule 11 11/22/2023 11/21/2024 levothyroxine (SYNTHROID, LEVOTHROID) 175 mcg tablet take one tablet by mouth every morning before breakfast 90 tablet 3 11/24/2023 12/05/2023 documented as of this encounter Plan of Treatment Upcoming Encounters Date Type Department Care Team (Late st Contact Info) Description 12/13/2023 8:50 AM BIT TRIPOLER Appointment Department of Laboratory Medicine and Pathology, [facility] in [place], [place] [address] [place] [phone] Natasha Mullins APRN, Radha.N.Franklin., M.S., M.S.N. [address] [place] [phone] 12/13/2023 11:00 AM BIT TRIPOLER Office Visit Department of Cardiovascular Medicine in [place], [place] [address] [place] [phone] Natasha Mullins APRN, Radha.N.P., M.S., M.S.N. [address] [place] [phone] 02/02/2024 9:15 AM CDT Appointment Department of Cardiovascular Diseases in [place], [place] [address] [place] [phone] Fazal Reynoso M.D. [address] [place] [phone] documented as of this encounter Procedures Procedure Name Priority Date/Time Associated Diagnosis Comments CAR CARDIAC DEVICE INTERROGATION Routine 11/28/2023 8:57 AM BIT TRIPOLER Encounter For Checking And Testing Of Cardiac Pacemaker Pulse Generator Battery documented in this encounter Results * CARDIOVASCULAR IMPLANTABLE ELECTRONIC DEVICE - NO CHARGE (11/28/2023 8:57 AM BIT TRIPOLER) Date Time Interrogation Session [id number] [facility] Implantable Pulse Generator Recruitment Internship Med[employer] [facility] Implantable Pulse Generator Model [id number] [place] XT DR MRI [facility] Implantable Pulse Generator Serial Number [id number] [facility] Type Interrogation Session Remote [facility] Clinic Name [facility] Implantable Pulse Generator Type Pacemaker [facility] Implantable Pulse Generator Implant Date 20231101 [facility] Implantable Lead Recruitment Internship [employer] [facility] Implantable Lead Model 4076 CapsureFix Novus MRI SureScan [facility] Implantable Lead Serial Number [id number] [facility] Implantable Lead Implant Date 20231101 [facility] Implantable Lead Polarity Type Bipolar Lead [facility] Implantable Lead Location Detail 1 UNKNOWN [facility] Implantable Lead Special Function Lead length: 52 cm [facility] Implantable Lead Location Right Atrium [facility] Implantable Lead Recruitment Internship [employer] [facility] Implantable Lead Model 4076 CapsureFix Novus MRI SureScan [facility] Implantable Lead Serial Number [id number] [facility] Implantable Lead Implant Date 20231101 [facility] Implantable Lead Polarity Type Bipolar Lead [facility] Implantable Lead Location Detail 1 UNKNOWN [facility] Implantable Lead Special Function Lead length: 58 cm [facility] Implantable Lead Location Right Ventricle [facility] Сергей Setting Mode (NBG Code) DDD [facility] С[facility]ей Setting Lower Rate Limit 60 {beats}/ min [facility] Setting Maximum Tracking Rate 120 {beats}/ min [facility] С[facility] Setting Maximum Sensor Rate 120 {beats}/ min [facility] С[facility] Setting KATHY Delay Low 150 ms [facility] Setting PAV Delay Low 180 ms [facility] Сер[facility]ей Setting AT Mode Switch Rate 171 {beats}/ min [facility] Сергей Setting AT Mode Switch Mode DDIR [facility] Lead Channel Setting Sensing Polarity Bipolar [facility] Lead Channel Setting Sensing Anode Location Right Atrium [facility] Lead Channel Setting Sensing Anode Terminal Ring [facility] Lead Channel Setting Sensing Cathode Location Right Atrium [facility] Lead Channel Setting Sensing Cathode Terminal Tip [facility] Lead Channel Setting Sensing Sensitivity 0.3 mV [facility] Lead Channel Setting Sensing Adaptation Mode Fixed [facility] Lead Channel Setting Sensing Polarity Bipolar [facility] Lead Channel Setting Sensing Anode Location Right Ventricle [facility] Lead Channel Setting Sensing Anode Terminal Ring [facility] Lead Channel Setting Sensing Cathode Location Right Ventricle [facility] Lead Channel Setting Sensing Cathode Terminal Tip [facility] Lead Channel Setting Sensing Sensitivity 0.9 mV [facility] Lead Channel Setting Sensing Adaptation Mode Fixed [facility] Lead Channel Setting Pacing Polarity Bipolar [facility] Lead Channel Setting Pacing Anode Location Right [facility] Lead Channel Setting Pacing Anode Terminal Ring [facility] Lead Channel Setting Sensing Cathode Location Right Atrium [facility] Lead Channel Setting Sensing Cathode Terminal Tip [facility] Lead Channel Setting Pacing Pulse Width 0.4 ms [facility] Lead Channel Setting Pacing Amplitude 3.5 V [facility] Lead Channel Setting Pacing Capture Mode Adaptive [facility] Lead Channel Setting Pacing Polarity Bipolar [facility] Lead Channel Setting Pacing Anode Location Right Ventricle [facility] Lead Channel Setting Pacing Anode Terminal Ring [facility] Lead Channel Setting Sensing Cathode Location Right Ventricle [facility] Lead Channel Setting Sensing Cathode Terminal Tip [facility] Lead Channel Setting Pacing Pulse Width 0.4 ms [facility] Lead Channel Setting Pacing Amplitude 3.5 V [facility] Lead Channel Setting Pacing Capture Mode Adaptive [facility] Zone Setting Type Category VF [facility] Zone Setting Type Category VT [facility] Zone Setting Type Category VT [facility] Zone Setting Type Category VT [facility] Zone Setting Detection Interval 360 ms [facility] Zone Setting Type Category ATRIAL_FIBRILLATI ON [facility] Zone Setting Type Category AT/AF [facility] Zone Setting Detection Interval 350 ms [facility] Lead Channel Impedance Value 456 ohm [facility] Lead Channel Impedance Value 323 ohm [facility] Lead Channel Sensing Intrinsic Amplitude 2.375 mV [facility] Lead Channel Sensing Intrinsic Amplitude 2.375 mV [facility] Lead Channel Pacing Threshold Amplitude 0.75 V [facility] Lead Channel Pacing Threshold Pulse Width 0.4 ms [facility] Lead Channel Impedance Value 456 ohm [facility] Lead Channel Impedance Value 361 ohm [facility] Lead Channel Sensing Intrinsic Amplitude 3.125 mV [facility] Lead Channel Sensing Intrinsic Amplitude 3.125 mV [facility] Lead Channel Pacing Threshold Amplitude 0.5 V [facility] Lead Channel Pacing Threshold Pulse Width 0.4 ms [facility] Battery Date Time of Measurements [id number] [facility] Battery PUBLISHING SPECIALIST Trigger 2.625 [facility] Battery Remaining Longevity 136 mo [facility] Battery Voltage 3.21 V [facility] Сергей Statistic Date Time Start [id number] [facility] Сергей Statistic Date Time End [id number] [facility] Сер[facility] Statistic RA Percent Paced 13.65 % [facility] Statistic RV Percent Paced 93.18 % [facility] Сергей Statistic AP BACTERIOLOGY TEACHER Percent 10.97 % [facility] Сергей Statistic BACTERIOLOGY TEACHER Percent 82.21 % [facility] Сергей Statistic AP VS Percent 0.06 % [facility] Сергей Statistic VS Percent 6.76 % [facility] Atrial Tachy Statistic Date Time Start [id number] [facility] Atrial Tachy Statistic Date Time End [id number] [facility] Atrial Tachy Statistic AT/AF [place] Percent 0 % [facility] Episode [...] [facility] Episode Statistic Recent Count 1 [facility] Episode Statistic Type Category VT [facility] Episode Statistic Recent Date Time Start [id number] [facility] Episode Statistic Recent Date Time End [id number] [facility] Episode Statistic Recent Date Time Start [id number] [facility] Episode Statistic Recent Date Time End [id number] [facility] Episode Statistic Recent Date Time Start [id number] [facility] Episode Statistic Recent Date Time End [id number] [facility] Episode Statistic Recent Date Time Start [id number] [facility] Episode Statistic Recent Date Time End [id number] [facility] Episode Statistic Recent Date Time Start [id number] [facility] Episode Statistic Recent Date Time End [id number] [facility] Episode Statistic Total Count [...] SYSTEM Episode Statistic Total Date Time Start [id number] [facility] Episode Statistic Total Date Time End [id number] [facility] Episode Statistic Total Date Time Start [id number] [facility] Episode Statistic Total Date Time End [id number] [facility] Episode Statistic Total Date Time Start [id number] [facility] Episode Statistic Total Date Time End [facility] Episode Statistic Total Date Time Start [facility] Episode Statistic Total Date Time End [facility] Episode Statistic Total Date Time Start [id number] [facility] Episode Statistic Total Date Time End [facility] Episode Identifier 1 [facility] Episode Type Category VT1_MONITOR [facility] Episode Date Time [facility] Episode Duration 10 s [facility] Anatomical Region Laterality Modality Other 11/25/2023 4:58 PM BIT TRIPOLER Narrative 11/30/2023 8:52 AM BIT TRIPOLER PURPOSE OF VISIT: ??Unscheduled alert initiated remote transmission due to VT episode recording. PRESENTING EGM: ??Atrial sensed/Ventricular paced at 98 bpm. ARRHYTHMIAS: ??Since 11/02/2023, one ventricular high rate episode recorded. [...] this is not observed in the EGM. Dr. Slaughter was informed of the above symptomatic VT recorded on this pacemaker for further recommendations. Battery Longevity: Expected battery longevity trends reviewed and are stable and consistent with device settings and use. SUMMARY: All device function appears normal. Note that since implant, p-wave has decreased from ~5-6 mV to ~2.5 mV, and R-wave decreased from 9 mV to 3 mV (note v-paced burden of 93% and consider measurement of PVC). Daily lead testing shows no consistent measurable R-wave, consider device dependency during testing. Continue to monitor. FOLLOW UP: Next routine follow-up will be as previously scheduled. DEVICE RN: ALEX Marquez Dylan Medina CV IMPLANTABLE CA RDIAC DEVICE documented in this encounter Visit Diagnoses Diagnosis Encounter For Checking And Testing Of Cardiac Pacemaker Pulse Generator Battery documented in this encounter Care Teams Cap Jewel Plate Assembler Relationship Specialty Start Date End Date Elsewhere, Pcp PCP - General Family Medicine 10/25/18 documented as of this encounter
--- OUTSIDE RECORDS SUMMARY | 2023-12-09 00:06 | XMS_ITS | Encounter Summary ---
Author Name Unknown Organization [facility] Address [address] [place] [id number] Care Team Providers Care Regulatory Agency Director Name Role Phone Elsewhere, Pcp Primary Care Provider Unavailabl e Reason for Visit * Outpatient (Routine) - Closed Specialty Diagnoses / Procedures Referred By Miguel arzola Referred To Contact Urology Diagnoses Nodule Prostate Retention Urinary Nsamelchintan, Jonnathan, VY, C.N.P., D.N.P., M.S. [address] [place] [phone] [facility] Referral ID Status Reason Start Date Expiration Date Visits Re quested Visits Authorized [id number] Closed 09/08/2023 09/07/2024 1 1 Encounter Details Date Type Department Care Team (Latest Contact Info) Description 11/22/2023 8:30 AM ELECTROTYPE FINISHER Comprehensive Visit Department of Urology in [place], [place] [address] [place] [phone] Margaux Adams D.O. [address] [place] [phone] Nodule Prostate; Retention Urinary Social History Tobacco Use Types Packs/Day Years [...] re latives? Once a week 05/31/2020 Attends [employer] Not on file 05/31 Active Member [...] Answer Date Recorded PHQ-2 Score 0 10/27/2023 [facility] - [...] money to buy more. Never true 10/27/20 23 Within the past 12 months, t he [...] your living situation today? I have a [facility] place to live 10/31/2023 Education Answer [...] PM CDT documented as of this encounter H&P Notes * Tamar Maravilla APRN, C.N.P., M.S.N. - 11/22/2023 8:30 AM CST Images from the original note were not included. SUBJECTIVE REFERRAL SOURCE The patient is being seen in consultation at the request of Jonnathan Rahman APRN, C.N.P., D.N.P.,M.S. [address] [place] [phone] CHIEF COMPLAINT Urinary retention Patient seen on Dr. Adams's calendar in conjunction with Dr. Adams HISTORY OF PRESENT ILLNESS Mr. Khanna is a pleasant 78 y.o. male who presents today for urinary retention, BPH. He was recently seen by our colleagues for prostate nodule and urinary symptoms. He was recently noted to have dysuria and placed on a 14 day course of doxycycline, and was incidentally found to have prostate nodule on LEONEL. During this evaluation, he was determined to have BPH type symptoms as for to our clinic to further evaluate. On evaluation, cystoscopy showed a 4-5 mm bladder stone. Ultrasound showed a volume of 68 cc. Uroflow showed peak flow 7.8 with a residual of 170 mL. Patient does state that in late October, he noted significant blood in his urine with clots and passed he thought to be a stone with a large clot. He denies hematuria since that time. Prior to this, he did notice intermittently weak stream that waxed and waned during urination. This improved with over hydration and walking. Symptoms include nocturia up to 4 times a night, frequency, pelvic pressure, incomplete emptying. He notes that drinking a lot of water does help with the elimination. He does take Tylenol at night to help with the abdominal pressure. He notes mild dysuria. He has been managed on Flomax since December 2020. He notes no appreciable improvement on this. He is not read any other medications. Medical history is significant for his pacemaker placement, myocardial infarction requiring 2 stents in 2014, B-cell lymphoma, thyroid cancer. He has had 2 hernia repairs, and node dissection in his neck, and small bowel surgery for obstruction. He is a nonsmoker, nondrinker. No family history of urogenital cancers. PAST MEDICAL/SURGICAL HISTORY MEDICAL Past Medical History: Diagnosis Date Asthma NOS (HCC) Cataract Coronary Artery Disease (Unspecified) Gastroesophageal Reflux Disease NOS Hyperlipidemia Hypertension NOS Lymphoma (HCC) Malignant Neoplasm Of Thyroid (HCC) Other Injury Of Unspecified Body Region ST Elevation Myocardial Infarction Of Unspecified Site (HCC) SURGICAL Past Surgical History: Procedure Laterality Date CATH PACEMAKER Left 11/01/2023 Procedure: PPM IMPLANT - DUAL CHAMBER; Surgeon: Kg Holguin M.D.; Location: [facility] HRS CORONARY ANGIOPLASTY WITH STENT PLACEMENT N/A 08/24/2015 >1. PTCA and drug-eluting stent placement to the mid- LAD. 2. Drug-eluting stent placement to the proximal LAD. MODIFIED DISSECTION NECK Left 04/17/2019 Procedure: Modified Dissection Neck, proceed as indicated.; Surgeon: Da Carr M.D.; Location: [facility] OR NECK DISSECTION Right 05/27/2021 Procedure: NECK DISSECTION, Revision neck, level IV.; Surgeon: Da Carr M.D.; Location: [facility] OR REPAIR HERNIA INGUINAL WITH MESH Left 01/16/2021 Procedure: Repair Hernia Inguinal With Mesh; Surgeon: Katty Clarke M.D.; Location: [facility] OR THYROID SURGERY TONSILLECTOMY VASECTOMY MEDICATIONS Current Outpatient Medications: acetaminophen (TYLENOL) 500 mg capsule, Take 2 capsules (1,000 mg total) by mouth every 6 (six) hours as needed for pain., Disp: , Rfl: albuterol (PROVENTIL HFA,VENTOLIN HFA) 90 mcg/actuation inhaler, Inhale 1-2 puffs as needed for wheezing or shortness of breath. , Disp: , Rfl: aspirin [address] tablet, Take 81 mg by mouth daily. Take for life. , Disp: , Rfl: calcium carbonate (TUMS) 500 mg (200 mg calcium) chewable tablet, Chew 1 tablet 2 (two) times a dayas needed for indigestion or heartburn., Disp: , Rfl: carvediloL (COREG) 25 mg tablet, Take 1 tablet (25 mg total) by mouth 2 (two) times a day with meals., Disp: 60 tablet, Rfl: 11 cetirizine (ZyrTEC) 10 mg tablet, Take 10 mg by mouth daily. , Disp: , Rfl: fluticasone propion-salmeteroL 250-50 mcg/dose diskus inhaler, Inhale 1 puff daily as needed. , Disp: , Rfl: levothyroxine (SYNTHROID, LEVOTHROID) 175 mcg tablet, Take 1 tablet (175 mcg total) by mouth every morning before breakfast., Disp: 90 tablet, Rfl: 3 lisinopriL (PRINIVIL,ZESTRIL) 40 mg tablet, Take 1 tablet (40 mg total) by mouth daily., Disp: 90 tablet, Rfl: 3 montelukast (SINGULAIR) 10 mg tablet, Take 1 tablet by mouth at bedtime., Disp: , Rfl: multivitamin tablet, Take 1 tablet by mouth daily., Disp: , Rfl: rosuvastatin (Crestor) 40 mg tablet, Take 1 tablet (40 mg total) by mouth daily., Disp: 90 tablet, Rfl: 3 tamsulosin (FLOMAX) 0.4 mg 24 hr capsule, Take 0.4 mg by mouth at bedtime., Disp: , Rfl: ALLERGIES Allergies Allergen Reactions Iodinated Contrast Media Itching and Rash Possible adverse reaction to iodinated contrast given at eye center in 2006. Visi [address] scan on 12/12/13. No reaction noted. Penicillin Itching Pneumococcal Vaccine Headache Headache and body ache Shellfish Containing Products GI intolerance Nausea & Vomiting [place] Pollen Itching Seasonal Allergies: Allergic Rhinitis, Itchy [...] Many years - Father) Smokeless tobacco: Never Substance Use Topics Alcohol use: No FAMILY HISTORY Family History Problem Relation Age of Onset Coronary artery disease Father Hypertension Mother Asthma Mother Migraines Mother Old age Mother Stroke Sister No Known Problems Sister No Known Problems Daughter No Known Problems Son Heart disease Paternal Grandmother No Known Problems Paternal Grandfather Stroke Maternal Grandmother Heart disease Maternal Grandfather SYSTEMS REVIEW REVIEW OF SYSTEMS OBJECTIVE PHYSICAL EXAMINATION Physical Exam LABS Lab Results Component Value Date NA 128 (L) 11/10/2023 CL 96 (L) 11/10/2023 BUN 24 (H) 11/10/2023 CO2 22 02/13/2020 HGB 12.8 (L) 11/10/2023 HCT 37.2 11/10/2023 WBC 6.8 11/10/2023 PSA 0.93 09/08/2023 Lab Results Component Value Date/Time CREATININE 0.97 11/10/2023 02:37 PM CREATININE 0.80 11/02/2023 09:39 AM CREATININE 0.84 11/01/2023 06:35 AM CREATININE 0.80 10/31/2023 08:14 AM CREATININE 0.73 (L) 10/30/2023 11:48 PM CREATININE 0.76 10/21/2023 08:45 AM CREATININE 0.82 08/01/2023 09:16 AM CREATININE 0.78 04/08/2022 10:39 AM MICROBIOLOGY/CULTURE DATA Microbiology Results (last 30 days) Procedure Component Value - Date/Time Bacterial Culture, Aerobic + Susceptibility, Urine [[id number]] (Abnormal) Collected: 10/27/23 1340 Lab Status: Final result Specimen: Urine, Midstream Updated: 10/29/23918 Urine Culture Mixed microbiota IMAGING AND TESTS TRUS--volume 68.1 cc UROFLOW Peak flow: 7.8 ml/sec Average flow: 4 ml/sec Voiding time: 49.3 sec Total voided volume: 193 mls Continuous (fluctuating) flow pattern Residual urine: 170 ml by ultrasound Impression: Abnormal Uroflow. Elevated post void residual with low Qmax. Differential diagnosis includes bladder outlet obstruction vs hypocontractile bladder. Clinical correlation is recommended. Cystosocpy: Prostatic urethra was notable for evidence of stone. Given position elected to utilize the scope topush the stone back into the bladder. There was evidence of lateral lobe hyperplasia. Upon entranceinto the bladder, berg cystoscopy was performed. Significant bladder wall trabeculation. No erythematous or papillary bladder lesions were noted. Approximately 4-5 mm bladder calculus was present. ASSESSMENT / PLAN IMPRESSION/REPORT/PLAN #1 Nodule Prostate #2 Retention Urinary It was my pleasure to meet Mr. Khanna in clinic today. We discussed symptoms and laboratory work indetail. I have personally reviewed the patient's outside imaging including TRUS, uroflow, cystoscopy. Together, we discussed his overall symptom complex, including his previous appreciated stone. We discussed how this could impact his symptoms and why some of the symptoms have improved/evolved since passing of the stone. Overall, given his comorbidities and previous pelvic and abdominal surgeries, we discussed that he may not be the most ideal surgical candidate, however certainly would be an option. Since he is not maximized medical therapies, we discussed the potential of trialing an increased dose of Flomax and potentially trialing finasteride given his large prostate size on ultrasound. PLAN -increased dose of Flomax to 0.8 a day -finasteride trial He will follow up as needed. All questions answered, patient in agreement. Signed by: Tamar Maravilla APRN, C.N.P., M.S.N. 11/22/2023 8:57 AM ELECTROTYPE FINISHER Answers submitted by the patient for this visit: Urinary Symptoms (Submitted on 11/21/2023) Frequent urination (more than what you would consider normal): Yes Weak/poor urine stream: Yes None of the above: Yes Are you able to sense when your bladder is full?: Yes How many times do you typically wake up and urinate at night?: 4 Have you had a urinary tract infection (UTI) within the past 1 year, and if so how many?: 1 or 2 Have you had any kidney infections or required hospitalized for kidney failure?: No Have you required a catheter placed because you could not empty your bladder?: Yes Do you ever unintentionally leak urine?: No Have you ever or are currently taking any treatments to treat your urinary symptoms?: medications Have you ever had any surgical or office procedures to improve your urinary symptoms?: Yes (Submitted on 11/21/2023) Did those treatments help your symptoms?: Yes TROTYPE FINISHER Associated attestation - Margaux Adams D.O. - 11/22/2023 10:01 AM ELECTROTYPE FINISHER I have personally reviewed the past medical history, pertinent review of systems, family history, surgical history and physical exam. I have met with and evaluated the patient. I have discussed the case with my clinical team and I agree with the plan and action as outlined by my team. 78-year-old pleasant male with significant comorbidities who presents for urinary retention and BPH. He has been on Flomax for about a year with minimal improvement. On cystoscopy he was noted to have a bladder stone that he is since passed. 68 g prostate. PVR 170 cc. He is still bothered and wishes for further intervention. We discussed maximal medication management with increasing his Flomax to0.8 mg daily as well as adding finasteride. Given his significant comorbidities I would recommend surgery as a last resort. He is willing to try this and understands it may take several months for the medications to take full effect. He will reach back out if he has no improvement. All questions add ressed and answered. documented in this encounter Plan of Treatment Upcoming Encounters Date Type Department Care Team (Late st Contact Info) Description 12/13/2023 8:50 AM ELECTROTYPE FINISHER Appointment Department of Laboratory Medicine and Pathology, [facility] in [place], [place] [address] [place] [phone] Natasha Mullins APRN, C.N.P., M.S., M.S.N. [address] [place] [phone] 12/13/2023 11:00 AM ELECTROTYPE FINISHER Office Visit Department of Cardiovascular Medicine in [place], [place] [address] [place] [phone] Natasha Mullins APRN, C.N.P., MCarmineS., M.S.N. [address] [place] [phone] 02/02/2024 9:15 AM CDT Appointment Department of Cardiovascular Diseases in [place], [place] [address] [place] [phone] Fazal Reynoso M.D. [address] [place] [phone] documented as of this encounter Visit Diagnoses Diagnosis Nodule Prostate Retention Urinary documented in this encounter Care Teams Regulatory Agency Director Relationship Specialty Start Date End Date Elsewhere, Pcp PCP - General Family Medicine 10/25/18 documented as of this encounter
--- OUTSIDE RECORDS SUMMARY | 2023-12-09 00:06 | XMS_ITS | Encounter Summary ---
Author Name Unknown Organization [facility] Address [address] [place] [address] Care Team Providers Care Filtration Plant Mechanic Name Role Phone Elsewhere, Pcp Primary Care Provider Unavailabl e Encounter Details Date Type Department Care Team (Late st Contact Info) Description 11/02/2023 Orders Only Department of Cardiovascular Diseases in [place], [place] [address] [place] [phone] Hugh Chisholm, RCarmineN. [address] [place] [phone] Encounter For Checking And Testing Of Cardiac Pacemaker Pulse Generator Battery (Primary Dx) Social History Tobacco Use Types [...] re latives? Once a week 05/31/2020 Attends [employer] Not on file 05/31 Active Member [...] Answer Date Recorded PHQ-2 Score 0 10/27/2023 [facility] - Occupational Stress Questionnaire Answer Date [...] have a [facility] place to live 10/31/2023 Education Answer Date [...] st Contact Info) Description 12/13/2023 8:50 AM ORGAN PIPE MAKER METAL Appointment Department of Laboratory Medicine and Pathology, [facility] in [place], [place] [address] [place] [phone] Natasha Mullins APRN, Radha.N.Franklin., M.S., M.S.N. [address] [place] [phone] 12/13/2023 11:00 AM ORGAN PIPE MAKER METAL Office Visit Department of Cardiovascular Medicine in [address] [phone] Natasha Mullins APRN, Radha.N.Franklin., M.S., M.S.N. [address] [place] [phone] 02/02/2024 9:15 AM CDT Appointment Department of Cardiovascular Diseases in [address] [phone] Fazal Reynoso M.D. [address] [place] [phone] Scheduled Orders Name Type Priority Associated Diagnoses Order Schedule Cardiac Device Interrogation Implantable Cardiac Device Routine Encounter For Checking And Testing Of Cardiac Pacemaker Pulse Generator Battery Ordered: 11/02/2023 Cardiac Device Interrogation Implantable Cardiac Device Routine Encounter For Checking And Testing Of Cardiac Pacemaker Pulse Generator Battery Expected: 02/01/2024 (Approximate), Expires: 01/31/2025 documented as of this encounter Visit Diagnoses Diagnosis Encounter For Checking And Testing Of Cardiac Pacemaker Pulse Generator Battery- Primary documented in this encounter Care Teams Filtration Plant Mechanic Relationship Specialty Start Date End Date Elsewhere, Pcp PCP - General Family Medicine 10/25/18 documented as of this encounter
--- OUTSIDE RECORDS SUMMARY | 2023-12-09 00:07 | XMS_ITS | Encounter Summary ---
Author Name Unknown Organization [facility] Address [address] [place] [id number] Care Team Providers Care Cadastral Engineer Name Role Phone Elsewhere, Pcp Primary Care Provider Unavailabl e Encounter Details Date Type Department Care Team (Late st Contact Info) Description 11/01/2023 3:50 PM TEST CENTER MANAGER Anesthesia Event Division of Cardiovascular Diseases in [place], [place] [address] [place] [phone] Rodrick Ortega APRN, PST SUPERVISOR [address] [place] [phone] Marcela Lamas APRN, PST SUPERVISOR [address] [place] [phone] Anesthesia Record Procedure Summary Procedure Name Responsible Anesthesiologist Anesthesia Start Time Anesthesia Stop Time PPM IMPLANT - DUAL CHAMBER (Left) Rodrick Ortega APRN, CRNA 11/01/23 1550 11/01/23 1721 Events Date Time Event Comment 11/01/2023 1550 An Start Machine/Equipme nt Checked Infection Precautions Followed Procedure/Site Verified NPO Status Verified Supine Standard ASA Monitors Applied 1558 Turnover to Proceduralist 1616 Proc Start 1629 Anes CS Handoff I, Marcela thorpe APRN, KARISSA, attest that I have reconciled the controlled substances and that I have reviewed all the significant information with the next anesthesia provider assuming care of this patient. 1647 Anes CS Handoff I, Marcela thorpe APRN, KARISSA, attest that I have reconciled the controlled substances and that I have reviewed all the significant information with the next anesthesia provider assuming care of this patient. 170 Anes CS Handoff I, Marcela thorpe, CHIEF COMPLIANCE OFFICER, PST SUPERVISOR, attest that I have reconciled the controlled substances and that I have reviewed all the significant information with the next anesthesia provider assuming care of this patient. 170 Proc Fin 1721 An End I completed my handoff to the receiving staff during which we 1. Identified the patient 2. Identified the responsible provider 3. Reviewed the pertinent medical history 4. Discussed the surgical course 5. Reviewed intra-op anesthesia management and issues during anesthesia 6. Set expectations for post-procedure period 7. Allowed opportunity for questions and acknowledgement of understanding. Meds Name Total fentanyl injection 50 mcg/mL 75 mcg propofol 10 mg/mL infusion 191.64 mg ceFAZolin 2 g remimazolam 2.5 mg/mL injection 10 mg diphenhydrAMINE 50 mg/mL injection 25 mg dexAMETHasone (DECADRON) injection 4 mg/ mL 16 mg famotidine 20 mg in NaCl 0.9% IVPB (PEPC ID) 20 mg iohexol (OMNIPAQUE) 300 mg/mL solution 1 0 mL Lactated Ringers Free Drip 400 mL * Agents No agents on file. * Blood No blood administrations on file. Lines, Drains, and Airways Type Details Placement Removal Wound 11/01/23; 1619; N; Incision; Chest; Left, Upper; Pacemaker incision; Mepilex 11/01/23 1619 by Gabbi English, R.N. Peripheral IV Placement Date: 10/14 07/06; Placement Time: 39; Catheter Size: 20 G; Orientation: Left; Location: Antecubital; Site Prep: Alcohol; Technique: Anatomical landmarks; Inserted by: ALEX Manzo; Insertion Attempts: 1; Removal Date: 11/02/23; Removal Time: 1201; Removal Reason: Patient discharged 10/31/23 004 by Jovany Grant, R.NCarmine 11/02/23 120 by Elsa Rome RJackson documented in this encounter Social History Tobacco [...] re latives? Once a week 05/31/2020 Attends [employer] Not on file 05/31 Active Member [...] Answer Date Recorded PHQ-2 Score 0 10/27/2023 [facility] Freedom of Occupat ional Health - Occupational Stress [...] your living situation today? I have a [facility] place to live 10/31/2023 Education Answer [...] documented as of this encounter OR Notes * Anesthesia Postprocedure Evaluation - Rodrick Ortega APRN, CRNA - 11/01/2023 5:21 PM CST Patient: Levi Khanna Procedure Summary Date: 11/01/23 Room / Location: [place] [address] / 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 Responsible Provider: Rodrick Ortega APRN, CRNA Anesthesia Type: MAC ASA Status: 3 Anesthesia Type: MAC Last vitals Vitals Value Taken Time BP 136/81 11/01/23 1717 Temp Pulse 61 11/01/23 1720 Resp SpO2 96 % 11/01/23 1720 Vitals shown include unfiled device data. Please reference Vitals flowsheet for most recent vital signs. Anesthesia Post Evaluation Patient Disposition: monitored unit, expectation for recovery time deferred to receiving unit Cardiovascular status: hemodynamics (HR & BP) acceptable Respiratory status: patent airway with spontaneous effort Temperature: normothermic Oxygen requirements: room air Level of consciousness: awake Pain score: pain adequately controlled and/or at baseline Post Op nausea/vomiting: none Hydration status: euvolemic CENTER MANAGER * Anesthesia Preprocedure Evaluation - Marcela Lamas APRN, CRNA - 11/01/2023 3:56 PM CST Preprocedure Anesthesia & H&P Assessment Procedure Summary Anesthesia Start Date/Time: 11/01/23 1550 Procedure: PPM IMPLANT - DUAL CHAMBER (Left) Diagnosis: 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 Surgeons: Kg Holguin M.D. Pertinent components of the patient's history including current problem list, medical history, surgical history, family history, social history, medications and allergies were reviewed. Present illness and pre-op diagnosis were confirmed. The planned surgery / procedure was verified with the patient / legal guardian. 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) OBJECTIVE PHYSICAL EXAMINATION Airway (HEENT) Mallampati: II TM Distance: >3 FB Neck ROM: Limited Mouth Opening: >3 cm Upper Lip Bite Test Class: II Cardiovascular Rhythm: Regular Rate: Abnormal Cardiovascular Assessment: cardiovascular normal Pulmonary Pulmonary Assessment: Clear General / Constitutional Constitutional Assessment: Normal General State of Health:: calm Neurological Neurologic Assessment: alert and alert and oriented x 3 Dental Dental Assessment: dentition intact Will pre medicate for possible contrast dye allergy ASSESSMENT / PLAN ANESTHESIA PLAN ASA: 3 Anesthesia Plan: MAC Patient seen and allergies reviewed, anesthesia plan and risks discussed directly with patient /legal guardian or through an test fixture assembler. Risks/Benefits/Alternatives of Blood transfusion discussed with patient / legal guardian, includingan opportunity to ask questions and/or decline some or all transfusion therapies. The patient / legal guardian consented to the use of all blood products, as deemed medically necessary Approval to Proceed: approved for anesthesia CENTER MANAGER documented in this encounter Plan of Treatment Upcoming Encounters Date Type Department Care Team (Late st Contact Info) Description 12/13/2023 8:50 AM TEST CENTER MANAGER Appointment Department [facility] in [place], [place] [address] [place] [phone] Natasha Mullins APRN, Radha.NLibrado., M.S., M.S.N. [address] [place] [phone] 12/13/2023 11:00 AM TEST CENTER MANAGER Office Visit Department of Cardiovascular Medicine in [place], [place] [address] [place] [phone] Natasha Mullins APRN, C.N.P., M.S., M.S.N. [address] [place] [phone] 02/02/2024 9:15 AM CDT Appointment Department of Cardiovascular Diseases in [place], [place] [address] [place] [phone] Fazal Reynoso M.D. [address] [place] [phone] documented as of this encounter Visit Diagnoses Not on filedocumented in this encounter Administered Medications Inactive Administered Medications - up to 3 most recent administrations Medication Order MAR Action Action Date Dose Rate Site ceFAZolin injection (ANCEF) intravenous, As needed, Starting on Tue11/01/23 at 1558, Anesthesia Intra-op Given 11/01/2023 3:58 PM TEST CENTER MANAGER 2 g dexAMETHasone injection (DECADRON) intravenous, As needed, Starting on Tue11/01/23 at 1612, Anesthesia Intra-op Given 11/01/2023 4:12 PM TEST CENTER MANAGER 16 mg diphenhydrAMINE injection (BENADRYL) intravenous, As needed, Starting on Tue11/01/23 at 1608, Anesthesia Intra-op Given 11/01/2023 4:08 PM TEST CENTER MANAGER 25 mg famotidine 20 mg in NaCl 0.9% IVPB (PEPCID) intravenous, Administer over 15 Minutes, Continuous Infusion: Per Instructions PRN, Starting on Tue11/01/23 at 1615, Anesthesia Intra-op New Bag 11/01/2023 4:15 PM TEST CENTER MANAGER 20 mg fentaNYL injection (SUBLIMAZE) intravenous, As needed, Starting on Tue11/01/23 at 1619, Anesthesia Intra-op Given 11/01/2023 4:47 PM TEST CENTER MANAGER 25 mcg Given 11/01/2023 4:27 PM TEST CENTER MANAGER 25 mcg Given 11/01/2023 4:19 PM TEST CENTER MANAGER 25 mcg iohexoL 300 mg iodine/mL solution (OMNIPAQUE) intravenous, As needed, Starting on Tue11/01/23 at 1627, Anesthesia Intra-op Given 11/01/2023 4:27 PM TEST CENTER MANAGER 10 mL Lactated Ringer's intravenous, Continuous Infusion: Per Instructions PRN, Starting on Tue11/01/23 at 1550, Anesthesia Intra-op New Bag 11/01/2023 3:50 PM TEST CENTER MANAGER propofol 10 mg/mL infusion (DIPRIVAN) intravenous, Continuous Infusion: Per Instructions PRN, Starting on Tue11/01/23 at 1556, Anesthesia Intra-op Rate/Dose Change 11/01/2023 4:24 PM TEST CENTER MANAGER 30 mcg/kg/min 13.716 mL/hr Rate/Dose Change 11/01/2023 4:15 PM TEST CENTER MANAGER 40 mcg/kg/min 18.2 88 mL/hr Rate/Dose Change 11/01/2023 4:01 PM TEST CENTER MANAGER 50 mcg/kg/min 22.8 6 mL/hr remimazolam injection (BYFAVO) intravenous, As needed, Starting on Tue11/01/23 at 1558, Anesthesia Intra-op Given 11/01/2023 4:40 PM TEST CENTER MANAGER 4 mg Given 11/01/2023 4:02 PM TEST CENTER MANAGER 4 mg Given 11/01/2023 3:58 PM TEST CENTER MANAGER 2 mg documented in this encounter Care Teams Cadastral Engineer Relationship Specialty Start Date End Date Elsewhere, Pcp PCP - General Family Medicine 10/25/18 documented as of this encounter
--- OUTSIDE RECORDS SUMMARY | 2023-12-09 00:07 | XMS_ITS | Encounter Summary ---
Author Name Unknown Organization [facility] Address [address] [place] [id number] Care Team Providers Care Senior Windows Administrator Name Role Phone Elsewhere, Pcp Primary Care Provider Unavailabl e Encounter Details Date Type Department Care Team (Latest Contact Info) Description 10/31/2023 2:44 AM MOLDED GOODS INSPECTOR TRIMMER - 11/02/2023 1:04 PM MOLDED GOODS INSPECTOR TRIMMER Hospital Encounter [facility], [facility], Fourth Floor [address] [place] [id number] Beau Grubbs M.D. [address] [place] [phone] Ben Mittal M.D., Ph.D. [address] [place] [address] [phone] Block Atrioventricular Second Degree (Primary Dx) Discharge Disposition: Home or Self Care Social [...] re latives? Once a week 05/31/2020 Attends [employer] Not on file 05/31 Active Member [...] Answer Date Recorded PHQ-2 Score 0 10/27/2023 [facility] [place] [facility] Occupat ional Health - Occupational Stress [...] living situation today? I have a [facility] place to live 10/31/2023 Education Answer [...] Sign Reading Time Taken Comments Blood Pressure 133/87 11/02/2023 11:05 AM MOLDED GOODS INSPECTOR TRIMMER Pulse 51 10/31/2023 2:50 AM MOLDED GOODS INSPECTOR TRIMMER Temperature 36.3 ??C (97.3 ??F) 11/02/2023 11:[address] Respiratory Rate 20 11/02/2023 12:06 PM MOLDED GOODS INSPECTOR TRIMMER Oxygen Saturation 95% 11/02/2023 11:05 AM MOLDED GOODS INSPECTOR TRIMMER Inhaled Oxygen Concentration - - Weight 75.8 kg (167 lb 1.7 oz) 11/02/2023 3:31 A M MOLDED GOODS INSPECTOR TRIMMER Height 175.3 cm (5' 9) 10/31/2023 3:53 AM MOLDED GOODS INSPECTOR TRIMMER Body Mass Index 24.68 10/31/2023 3:53 AM MOLDED GOODS INSPECTOR TRIMMER documented in this encounter Discharge Summaries * Cain Holguin, PCarmineA.-C. - 11/02/2023 11:36 AM CST Images from the original note were not included. CARDIOLOGY HOSPITAL DISCHARGE SUMMARY DATE OF ADMISSION: 10/31/2023 DATE OF DISCHARGE: 11/02/2023 Discharge Provider: Ben Mittal M.D., Ph.D. 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 #3 Moderate aortic stenosis #4 Moderate tricuspid regurgitation #5 Urinary tract infection, on nitrofurantoin #6 Acute on chronic heart failure with recovered ejection fraction LVEF 51% (recovered from 40 to 45% 10/03/2022) secondary to ischemic cardiomyopathy #7 Coronary artery disease with history of STEMI and SANTIAGO x2 to proximal and mid LAD in 2014 #8 Metastatic papillary thyroid cancer status post resection in 2019, on replacement #9 Hyperlipidemia #10 Hypertension #11 GERD #12 Asthma #13 BPH #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 Please recheck CBC/BMP and monitor healing at the device pocket site Heart Failure follow up on 11/15/20[address] for 10 days Continue nitrofurantoin twice daily through , 11/03/2023 This patient would benefit from further titration of their guideline directed medical therapy (GDMT) for heart failure. Recommendations below: Continue lisinopril 40 mg daily Continue Coreg 25 mg BID Once on goal doses ANGELIC-I and beta blockade, would recommend the addition of spironolactone. Would start at 12.5 mg daily with goal doses of 25 mg daily. Per ACC/AHA guidelines potassium and creatinine should be checked 3 days, 1 week and monthly for 3 months after each dose increase. Then at least annually going forward. Consider starting SGLT2 inhibitor, dapagliflozin or empagliflozin, for treatment of systolic heart failure, 10 mg daily. This may be used in patients who either have diabetes and also those patients who do not have diabetes. If using in those patients with diabetes, please contact their provider who manages their diabetes to ensure closer monitoring of their blood sugars. Recommend rechecking basic metabolic panel in 2 weeks after starting this medication. RESTRICTIONS: Please see AVS FOLLOW-UP APPOINTMENTS Scheduled Appointments 11/15/2023 3:00 PM Eugene Slaughter M.D., Ph.D. Cardiovascular Disease 11/18/2023 7:00 AM RST INTAKE VISIT POD A 01 Admitting/Central Scheduling 11/22/2023 8:30 AM Margaux Adams D.O. Urology 12/05/2023 12:45 PM ROGO 03 RM 8 Radiology 12/05/2023 3:30 PM Loni Wu M.D. Endocrinology 05/02/2024 4:00 AM [facility] Cardiovascular Disease For appointment details refer to your Patient Appointment Guide. HOSPITAL COURSE Admission Weight: 76.5 kg Dismissal Weight: 75.8 kg BMI: Body mass index is 24.68 kg/m??. Mr. Khanna is a 78 year old male who presented to local emergency department for evaluation of shortness of breath. He was admitted to the [facility] CVD Admit/Triage Hospital service. He has medical comorbidities including, but not limited to, CAD s/p STEMI with SANTIAGO x2 to proximal and mid LAD (2014), ischemic cardiomyopathy with midrange ejection fraction (40-45%), hypertension, hyperlipidemia, thyroidcancer s/p resection (2018), B-cell lymphoma, history of frequent ventricular ectopy and second-degree AV block Mobitz 1, asthma, BPH, GERD, and recently diagnosed urinary tract infection. Patient reported experiencing worsening shortness of breath over the past 2 weeks that worsened with exertion. He first noticed symptoms when walking with his family, and he simply could not keep up with them due to dyspnea. He therefore presented to his local emergency department on 10/21/23 whereworkup was largely unremarkable and he was discharged home. However, he continued to experience significant shortness of breath which prompted him to present to the emergency department again on 10/30/2023. In the emergency department, lab work demonstrated mild anemia, hyponatremia with sodium 126, no leukocytosis, electrolytes within normal limits, creatinine 0.73, elevated NT proBNP from priorat 2796, troponin 16, D-dimer 307. ECG demonstrated bradycardia at 43 beats per minute with second-degree AV block with 2:1 A-V conduction. Chest x-ray revealed mild pulmonary vascular congestion. Hewas given 20 mg of IV furosemide and transferred to [facility] for further evaluation. Upon arrival to the floor, patient was hemodynamically stable and asymptomatic at rest and remainedin high grade AV block. Given his significant bradycardia, his home carvedilol was held. Transthoracic echocardiogram was obtained which demonstrated a preserved LVEF of 51% and progression of his valvular disease from mild to moderate aortic stenosis and mild to moderate tricuspid regurgitation. Of note, he was diagnosed with urinary tract infection on 10/27/2023 and was receiving treatment with nitrofurantoin. Due to a mild leukocytosis of 9.7 permanent pacemaker implantation was temporarily delayed. The following day leukocytosis resolved, patient was nontoxic appearing and had no systemic signs of infection, therefore patient underwent left-sided dual-chamber pacemaker implantation on11/01/23 without acute complication. Postprocedure CXR that was treated appropriate lead placement and no pneumothorax. Device interrogation demonstrated appropriate function. For guideline directed medical therapy carvedilol was resumed post device implantation. Patient was recommended to continue his nitrofurantoin through the evening of , 11/03/2023 for a total of 7-day course for his UTI. Patient was discharged home on 11/02/2023 in stable condition with his family. TEST RESULTS PENDING AT DISCHARGE: Pending Labs None DISCHARGE DISPOSITION: Home or Self Care [1] CONDITION ON DISCHARGE: Stable. DIET AT DISCHARGE: Cardiovascular diet PRIMARY PROVIDER Patient Care Team: Tucker Currie II, M.D. as External Primary Care Physician (Family Medicine) Primary Care Providers: Elsewhere, Pcp (General) No address on file Primary Care Provider Phone Number: None Primary Care Provider Fax Number: None MARGIN CODE I personally spent total time of 45 minutes with >50% spent with counseling/coordination of care, independent from other providers on our team. ED GOODS INSPECTOR TRIMMER documented in this encounter Discharge Instructions * Discharge Instructions* Hugh Chisholm, R.N. - 10/31/2023 7:04 AM MOLDED GOODS INSPECTOR TRIMMER You were discharged from the T CARD 3 Service. Please identify this service name if you call withquestions after hospitalization. Permanent Pacemaker Implant Instructions Remember Your Arm Restrictions No vigorous, upper body activity for 4 weeks. No raising affected arm above shoulder level for 4 weeks. 5 pound weight limit with affected arm (this includes pushing, pulling, lifting) for 4 weeks. No driving for 10 days. Wear sling for 1 week, or as directed. Wound Care: Watch incision daily for signs and symptoms of infection and/or bleeding: Redness, swelling, drainage, oral temperature greater than 100.4??F. *If any of these are present, please contact us or your local doctor as soon as possible. Types of dressings over device incision: - MEPILEX: Remove dressing in 1 week. Check dressing daily for intact seal. If dressing is no longer intact, may need to remove sooner. Ok to shower day after implant with dressing on. Once dressing is removed, leave incision open to air. - DERMABOND: Telfa or gauze dressing should be removed day after procedure. Dermabond skin glue will dissolve on its own, over the next 1-2 weeks. Ok to shower in 24 hours. Pat incision dry after showering. Do not apply any lotions or creams directly to incision. Do not submerge incision in water until completely healed (usually 3-4 weeks). Pain: You may use tjna-cit-msycduo Extra Strength Tylenol (acetaminophen) 500 mg tablets, one to two tablets by mouth every six hours as needed for incisional discomfort. DO NOT EXCEED 4 grams of acetaminophen in any 24-hour period, or per your providers recommendations. Follow-Up: In clinic appointments will be scheduled for you for 3-months from implant. Routine remote transmitter follow-up dates will be scheduled every 3 months after this appointment, with in clinic device check per your clinic's request. If you plan to have your device followed locally, YOU are responsible for scheduling an appointment with a device specialist in 3 months. This appointment is very important as adjustments are madewhich will affect the device battery. If you wish to have your local clinic follow your remote transmitter as well, please contact us to request this transfer at or [phone]. Remote Transmitter: You will be provided with a remote home transmitter to assist you in ongoing follow up of your device. The transmitter will send information to your designated clinic on a quarterly basis, and in between those times, ONLY if the implanted device detects something it wants your clinic to be aware of. This transmitter is NOT a lifesaving device, nor will it contact anyone in an emergency. If you are experiencing any abnormal symptoms, please DO NOT rely on this transmitter. Call your local physician, or if an emergency, report to the closest emergency room, or dial 911. It is recommended these transmitters remain plugged in at all times. When you arrive home, please connect your transmitter as instructed. If you have a manual transmitter, please send a manual transmission as instructed. You may verify receipt of this transmission by calling the [facility] at or [phone]. Please contact your device company with concerns or issues regarding your home transmitter. [employer] [phone] ALWAYS call 911 in the event of an emergency. ED GOODS INSPECTOR TRIMMER documented in this encounter Medications at Time [...] 10 mg by mouth daily. 0 08/24/2015 fluticasone propion-salmeteroL 250-50 mcg/dose diskus inhaler Inhale [...] mouth daily. 90 tablet 3 10/20/2023 10/19/2024 nitrofurantoin monohydrate (MACROBID) 100 mg capsule Take 1 capsule (100 mg total) by mouth 2 (two) times a day for 7 days. 14 capsule 0 10/27/2023 11/03/2023 levothyroxine (SYNTHROID, LEVOTHROID) 175 mcg tablet Take 1 tablet (175 mcg total) by mouth every morning before breakfast. 90 tablet 3 11/29/2022 11/24/2023 tamsulosin (FLOMAX) 0.4 mg 24 hr capsule Take 0.4 mg by mouth at bedtime. 0 12/12/2020 11/22/2023 documented as of this encounter Progress Notes * Kg Holguin M.D. - 11/01/2023 4:04 PM CST EP Note In summary, Patient is experiencing bradycardia, which is symptomatic. We discussed that there are no medications to treat bradycardia. We would try to reverse any potential reversible causes or stopbradycardia-inducing medications if they are not required. However, if symptomatic bradycardia persists, then this is an indication for a pacemaker. We discussed the risks/benefits/alternatives of each strategy as above. I explained to the patient in layman's terms the details of the procedure and the risks associated with pacemaker placement, which include, but are not limited to, bleeding, infection, cardiac perforation, pneumothorax, stroke,myocardial infarction, need for emergent procedures or surgery, and . We also discussed risks of device malfunction, lead fracture, and need for future generator changes.Patient understands thatthere is a 2-4% risk of these major complications and is able to reiterate their understanding to me. Future risks includes valvular damage, chronic RV pacing, generator and lead related issues. I have reviewed with Levi Khanna the procedure, includes making an incision in the skin, accessing a blood vessel, placement of a catheter, insertion of wire/s into the heart tissue. We discussed the use of light to moderate sedation and the necessity of post procedure recovery and transpor tation assistance. The procedure takes approximately 1-2 hours. Procedural risks discussed included but are not limited to: pain, infection, hematoma, cardiac tamponade, pneumothorax, valvular damage, perforation of the vessels, perforation of the heart muscle, or possibility of implanting the device to the opposite chest wall. There is a risk of heart attack, stroke, and related to any of the above. We discussed that other team members will be involvedin the procedure and patient's care. . Many patients go home the same day but may require longer hospitalization if necessary. We have discussed post-procedure activity restrictions and bathing to prevent infection and wire dislodgement. We covered avoidance of high powered magnets, industrial machinery, and high impact activities. We discussed home monitoring and device registration card. All questions have been answered. This procedure has been fully reviewed with the patient and written informed consent has been obtained by the primary team. Placement for the device will be: Left-sided The patient was given ample opportunity to ask any questions, and all questions were answered. ED GOODS INSPECTOR TRIMMER * Delilah Lopez P.A.-C., M.S. - 11/01/2023 7:35 AM CST RST CARD 3 CARDIOLOGY INPATIENT PROGRESS NOTE SUBJECTIVE Mr. Khanna was seen and examined on morning rounds. Patient is feeling well this morning. He stateshe slept well overnight. No acute concerns. Discussed plan for permanent pacemaker implantation today. Family was at bedside. Consent was obtained. OBJECTIVE TELEMETRY High-grade 2 to 1 AV block overnight. Bradycardic 30s to 40s. INTAKE/OUTPUT Past 24 hours: Intake/Output Summary (Last 24 hours) at 11/01/2023 0735 Last data filed at 11/01/2023 0639 Gross per 24 hour Intake 450 ml Output 1305 ml Net -855 ml Net Hospitalization: -1.7 L Admission Weight: 76.5 kg Today's weight: 76.2 kg Weight change since admit: -0.3 kg. Body mass index is 24.81 kg/m??. VITAL SIGNS Temperature: [36.3 ??C-36.8 ??C] 36.8 ??C Heart Rate: [31-71] 47 Resp Rate: [12-25] 20 Blood Pressure: (108-151)/(57-75) 123/72 SpO2: [93 %-97 %] 93 % Weight: [76.2 kg] 76.2 kg BMI (Calculated): [24.8 kg/m??] 24.8 kg/m?? PHYSICAL EXAMINATION General: Alert and oriented in no acute distress. Lying semi recumbent in hospital bed. Able to easily mobilize to participate in physical exam. Appropriately conversational. Heart: Irregular rhythm. Bradycardic. 2/6 early peaking systolic murmur at USB. JVP elevated. Lungs: Clear to auscultation bilaterally and throughout. Breathing nonlabored on room air. Abdomen: Soft, nondistended, nontender to palpation throughout. Extremities: No significant peripheral edema. DIAGNOSTICS I personally reviewed all radiology and labs from the past 24 hrs. 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 #3 Moderate aortic stenosis #4 Moderate tricuspid regurgitation #5 Urinary tract infection, on nitrofurantoin #6 Acute on chronic heart failure with recovered ejection fraction LVEF 51% (recovered from 40 to 45% 10/03/2022) secondary to ischemic cardiomyopathy #7 Coronary artery disease with history of STEMI and SANTIAGO x2 to proximal and mid LAD in 2014 #8 Metastatic papillary thyroid cancer status post resection in 2019, on replacement #9 Hyperlipidemia #10 Hypertension #11 GERD #12 Asthma #13 BPH #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 Khanna as an 78-year-old male who presented to local emergency department for shortness of breath over 2 weeks. He was found to be in second-degree AV block with 2 to 1 conduction, rates in the 30s to 40s. He has known conduction system disease with pre-existing RBBB, LAFB, and first-degree AV block therefore most likely etiology of high-grade AV block is progression of underlying conduction system disease. He is currently being treated for a UTI with nitrofurantoin. Yesterday he had a mild leukocytosis, WBC 9.7 therefore we we delayed permanent pacemaker implantation to ensure there was no systemic infection. Leukocytosis today has resolved (WBC 7.3, neutrophils normal at 4). He has no signs of systemic infection. He is nontoxic-appearing, he has had no fever or chills. We will proceed with left-sided permanent pacemaker implantation today for symptomatic high-grade AV block. LVEF is preserved therefore will pursue dual chamber pacemaker. Consent has been obtained. On TTE valve disease has progressed, aortic stenosis from mild to moderate and tricuspid regurgitation for [id number]-wompffjc. This will require surveillance going forward, does not require intervention at this time. Would recommend repeat TTE in 1 year and referral to valve clinic if there is progression to severe disease or he develops symptoms related to his valve disease. Of note, patient has been chronically hyponatremic on outside EMR since around 2016. It appears this has been slowly getting worse. Sodium has thus far nadired at 126 during this admission. Serum osmolality is low suggestive of excess free water whether from heart failure or another process such asSIADH. I have ordered urine sodium and osmolality which have not yet been collected, will be today to further investigate source of hyponatremia. For now, patient is on a 2 L fluid restriction. We may need to intensify this depending on results. PLAN: -- L sided dual-chamber pacemaker implantation today. Consent obtained. Hibiclens/Bactroban applied. -- CXR and ECG post procedure. NPO at MI for device interrogation tomorrow AM. -- carvedilol held on admission the setting of AV block. Resume postprocedure for GDMT. -- urine studies to further evaluate hyponatremia. -- continue nitrofurantoin 100 mg twice daily to complete UTI treatment through 11/03 -- continue remainder of cardiac medications as ordered including aspirin 81 mg daily, lisinopril 40 mg daily, and rosuvastatin 40 mg daily -- continue remainder ASSISTANT PROGRAM MANAGER medications including levothyroxine was 85 mcg daily, loratadine 10 mg daily, montelukast 10 mg daily, multivitamin daily, tamsulosin 0.4 mg daily -- TTE in 1 year to reevaluate valvular disease -- outpatient urology appointments rescheduled to evaluate urinary retention/prostate disease VTE: holding for procedure Gi: not indicated Tubes/lines: PIV Telemetry Indication: high grade AVB, continuous until PPM Code Status: Full Code Disposition: Home - self care Delilah Lopez P.A.-C., M.S. 11/01/23 RST CARD 3 I personally spent a total 50 minutes providing and coordinating care today. ED GOODS INSPECTOR TRIMMER * Ben Mittal M.D., Ph.D. - 11/01/2023 6:43 AM CST This is a collaborative note with STACIE Abdi and the Cardiology 3 team. I independently reviewed Mr. Khanna's interval clinical history and pertinent recent electrocardiographic, imaging and laboratory data and agree with the assessment and plan of STACIE Rodriguez except for where it may differ below. Mr. Khanna is an 78-year old male with a previous medical history significant for coronary artery disease complicated by prior STEMI s/p PCI/SANTIAGO to the mid- LAD in 2014 complicated by residual heart failure with mid-range ejection fraction (most recent LVEF of 40%-45%) in the setting of an ischemic c ardiomyopathy, kiwl-xx-yzwwezgf and TR, hypertension, hyperlipidemia and a history of Mobitz I second-degree AV block admitted to the Cardiology 3 service after presenting to a local ER for evaluation of a 2 week history of progressive dyspnea on exertion in the setting of newly documented 2:1/Mobitz II AV block. #1 2:1 AV block and Mobitz II/infra-Hisian disease, in the setting of #2 and #3 #2 Pre-existing RBBB/LAFB #3 Coronary artery disease complicated by prior STEMI s/p PCI/SANTIAGO to the mid-LAD in 2014 complicated by residual heart failure with mid-range ejection fraction (most recent LVEF of 40%-45%) in the setting of an ischemic cardiomyopathy #4 Dbkl-cn-satwjown #5 Cfnq-eg-gcditfyi TR #6 Hypertension #7 Hyperlipidemia PLAN: - NPO this morning. As Mr. Khanna's white blood cell count has downtrended (9.7 --> 7.3; no neutrophilia) we will plan on proceeding with implantation of a left-sided dual-chamber PPM today. To this end, I reviewed the risks, including but not limited to vascular damage/myocardial perforation during the procedure itself and potentially requiring additional procedures, stroke, [place], , deviceinfection and device malfunction, and benefits of PPM implantation and overall risk of an adverse event was quoted at 1%-2%. Mr. Khanna acknowledged these risks and is interested in proceeding. - Barring any unforeseen issues, I anticipate Mr. Khanna should be medically ready for discharge asearly as tomorrow following device interrogation, CXR and device nurse education. - Remainder per the excellent documentation of the Cardiology 3 team. ED GOODS INSPECTOR TRIMMER * Teresa Sims Pharm.D., R.Ph. - 10/31/2023 7:40 AM CST Pharmacist Progress Note Reason for admission: Shortness of breath x 2 weeks with exertion PMH: CAD s/p STEMI with SANTIAGO x 2 2014, ICM with midrange EF 40-45%, HTN, HLD, mild-moderate , mild-moderate TR, thyroid cancer s/p resection 2018, B cell lymphoma, ventricular ectopy, 2nd degree AC block, asthma, BPH, GERD, recently diagnosed UTI OBJECTIVE CV: HFmrEF: lisinopril CAD: aspirin 81, rosuvastatin 40, lisinopril 10 Lab Results Component Value Date LDLCALC 111 10/14/2022 Pulm: Montelukast Neph: Baseline Scr 0.8 mg/dL;Estimated Creatinine Clearance: 87.3 mL/min (A) (by C-G formula based on SCr of 0.73 mg/dL (L)). Endo: levothyroxine ID: UTI- urine Cx 10/27 with mixed microbiota- nitrofurantoin day 5 of 7 VTE ppx: held for procedure Medication Reconciliation: Held: carvedilol Changed: New: ASSESSMENT / PLAN Symptomatic with second-degree AV block with 2:1 AV conduction noted on ECG Consideration for PPM or WATERMASTER-D pending TTE results HFmrEF: Patient has been hypertensive since admission. Consider optimizing GDMT with the addition of spironolactone. Hold off on SGLT2i in the setting of UTI. Entresto co-pay is estimated at $137/mo co-pay through his insurance. UTI: Prescribed a 7 day course of nitrofurantoin on 10/27 for a UTI without identified pathogen. Of note, nitrofurantoin does not provide coverage of systemic infection outside of the bladder. If patient has continued dysuria or develops signs on systemic infection, would recommend re-collecting a urine sample and switching antibiotics. Teresa Sims Pharm.D., R.Ph. ED GOODS INSPECTOR TRIMMER documented in this encounter H&P Notes * Ben Mittal M.D., Ph.D. - 10/31/2023 8:20 AM CST This is a collaborative note with STACIE Mccracken and the Cardiology 3 team. I independently reviewed Mr. Khanna's clinical history and pertinent recent electrocardiographic, imaging and laboratory data and agree with the assessment and plan of STACIE Montoya except for where it may differ below. Mr. Khanna is an 78-year old male with a previous medical history significant for coronary artery disease complicated by prior STEMI s/p PCI/SANTIAGO to the mid- LAD in 2014 complicated by residual heart failure with mid-range ejection fraction (most recent LVEF of 40%-45%) in the setting of an ischemic c ardiomyopathy, [id number] and TR, hypertension, hyperlipidemia and a history of Mobitz I second-degree AV block admitted to the Cardiology 3 service after presenting to a local ER for evaluation of a 2 week history of progressive dyspnea on exertion in the setting of newly documented 2:1/Mobitz II AV block. #1 2:1 AV block and Mobitz II/infra-Hisian disease, in the setting of #2 and #3 #2 Pre-existing RBBB/LAFB #3 Coronary artery disease complicated by prior STEMI s/p PCI/SANTIAGO to the mid-LAD in 2014 complicated by residual heart failure with mid-range ejection fraction (most recent LVEF of 40%-45%) in the setting of an ischemic cardiomyopathy #4 Wpfh-pu-gjwufepc #5 Mqxn-dp-rnkcxtkw TR #6 Hypertension #7 Hyperlipidemia PLAN: - As it has been over a year since last LV function assessment we will obtain a TTE today to help us select an optimal device configuration. - We will keep Mr. Khanna NPO this morning in the event there is room in the device lab as I anticipate he will benefit from/require either a dual-chamber conduction system PPM or WATERMASTER system to address his high-grade AV block/infra- Hisian disease. He understands that due to volume/demand this may well get delayed until tomorrow given his clinical stability but we will do everything we can to assure this is accomplished in an expedited manner. - Remainder per the excellent documentation of Mr. Bell, PAC and the Cardiology 3 team. ED GOODS INSPECTOR TRIMMER * Naveen Bell Abilio Garcia. - 10/31/2023 1:47 AM CST Images from the original note were not included. CARDIOLOGY INPATIENT ADMISSION NOTE CHIEF COMPLAINT/REASON FOR VISIT Shortness of breath Collaborating physician: Beau Grubbs M.D. Admitting service: [facility] Admit/Triage Hospital HISTORY OF PRESENT ILLNESS Mr. Khanna is a 78 y.o. male who presented to local emergency department for evaluation of shortness of breath. He is being admitted to the [facility] CVD Admit/Triage Hospital service. He has medical comorbidities including, but not limited to, CAD s/p STEMI with SANTIAGO x2 to proximal and mid LAD (2014), ischemic cardiomyopathy with midrange ejection fraction (40-45%), hypertension, hyperlipidemia, mild-moderate , mild-moderate TR, thyroid cancer s/p resection (2019), B-cell lymphoma, history of frequent ventricular ectopy and second- degree AV block Mobitz 1, asthma, BPH, GERD, and recently diagnosed urinary tract infection. Patient reports he has been experiencing worsening shortness of breath over the past 2 weeks that is worsened with exertion. He first noticed symptoms when walking with his family, and he simply could not keep up with them due to dyspnea. He therefore presented to his local emergency department on 10/21/23 where workup was largely unremarkable and he was discharged home. However, he continued to experience significant shortness of breath which prompted him to present to the emergency departmentagain yesterday. In the emergency department, lab work demonstrated mild anemia, hyponatremia with sodium 126, no leukocytosis, electrolytes within normal limits, creatinine 0.73, elevated NT proBNP from prior at 2796, troponin 16, D-dimer 307. ECG demonstrated bradycardia at 43 beats per minute with second-degree AV block with 2:1 A-V conduction. Chest x-ray revealed mild pulmonary vascular congestion. He was given 20 mg of IV furosemide and transferred to [facility] for further evaluation. Upon arrival to the floor, patient is hemodynamically stable and asymptomatic at rest. He does endorse experiencing shortness of breath with exertion. He also endorses having orthopnea and states he has been having trouble sleeping due to the shortness of breath. He denies having any chest pain/discomfort, chest palpitations, or lower extremity edema. He does occasionally get dizzy/lightheaded when getting up from a seated position. He denies any recent weight changes, cough, fevers/chills, or night sweats. He has not had any syncopal episodes. He was diagnosed with urinary tract infection on10/27/2023 and is currently being treated with a 7 day course of nitrofurantoin. He follows with Yumiko Fagan in the heart failure Clinic, and was supposed to have an outpatient TTE today and follow-up in the heart failure Clinic tomorrow. He was screened for sleep apnea in December of this year, which resulted as a normal study. His heart failure regimen consists of carvedilol 25 mg b.i.d. and lisinopril 40 mg daily. He is not on any diuretic therapy. The following portions of the patient's history were reviewed and updated as appropriate: allergies, current medications, family history, medical history, social history, surgical history and problemlist. PAST MEDICAL HISTORY Past Medical History: Diagnosis Date Asthma NOS (HCC) Cataract Coronary Artery Disease (Unspecified) Gastroesophageal Reflux Disease NOS Hyperlipidemia Hypertension NOS Lymphoma (HCC) Malignant Neoplasm Of Thyroid (HCC) Other Injury Of Unspecified Body Region ST Elevation Myocardial Infarction Of Unspecified Site (HCC) Past Surgical History: Procedure Laterality Date CORONARY ANGIOPLASTY WITH STENT PLACEMENT N/A 08/24/2015 >1. PTCA and drug-eluting stent placement to the mid- LAD. 2. Drug-eluting stent placement to the proximal LAD. MODIFIED DISSECTION NECK Left 04/17/2019 Procedure: Modified Dissection Neck, proceed as indicated.; Surgeon: Da Carr M.D.; Location: [facility] OR NECK DISSECTION Right 05/27/2021 Procedure: NECK DISSECTION, Revision neck, level IV.; Surgeon: Da Carr M.D.; Location: [facility] OR REPAIR HERNIA INGUINAL WITH MESH Left 01/16/2021 Procedure: Repair Hernia Inguinal With Mesh; Surgeon: Katty Clarke M.D.; Location: [facility] OR THYROID SURGERY TONSILLECTOMY VASECTOMY REVIEW OF SYSTEMS A complete 10 point review of systems was completed and negative except for as mentioned in the HPI. ALLERGIES Allergies Allergen Reactions Iodinated Contrast Media Itching and Rash Possible adverse reaction to iodinated contrast given at [facility] in 2006. Visi [address] scan on 12/12/13. No reaction noted. Penicillin Itching Pneumococcal Vaccine Headache Headache and body ache Shellfish Containing Products GI intolerance Nausea & Vomiting [place] Pollen Itching Seasonal Allergies: Allergic Rhinitis, Itchy watery eyes Clindamycin Other (see comments) Please Verify & complete Reaction & Severity barboza! Mold Other (see comments) Please Verify & complete Reaction & Severity barboza! Penicillins Other (see comments) Please Verify & complete Reaction & Severity barboza! House Dust Mite Other (see comments) HOME MEDICATIONS Active Home Medications Medication Sig Taking acetaminophen (TYLENOL) 500 mg capsule Take 2 [...] or heartburn. carvediloL (COREG) 25 mg tablet Take 1 tablet (25 mg total) by mouth 2 (two) times a day. cetirizine (ZyrTEC) 10 mg tablet Take 10 mg by mouth daily. fluticasone propion-salmeteroL 250-50 mcg/dose diskus inhaler Inhale 1 puff daily as needed. levothyroxine (SYNTHROID, LEVOTHROID) 175 mcg tablet Take 1 tablet (175 mcg total) by mouth every morning before breakfast. lisinopriL (PRINIVIL,ZESTRIL) 40 mg tablet Take 1 tablet (40 mg total) by mouth daily. montelukast (SINGULAIR) 10 mg tablet Take 1 tablet by mouth at bedtime. multivitamin tablet Take 1 tablet by mouth daily. nitrofurantoin monohydrate (MACROBID) 100 mg capsule Take 1 capsule (100 mg total) by mouth 2 (two)times a day for 7 days. rosuvastatin (Crestor) 40 mg tablet Take 1 tablet (40 mg total) by mouth daily. tamsulosin (FLOMAX) 0.4 mg 24 hr capsule Take 0.4 mg by mouth at bedtime. SOCIAL HISTORY Reports that he has never smoked. He has been exposed to tobacco smoke. He has never used smokelesstobacco. He reports that he does not drink alcohol and does not use drugs. Retired [employer], and lives at home with his FAMILY HISTORY Family History Problem Relation Age of Onset Coronary artery disease Father Hypertension Mother Asthma Mother Migraines Mother Old age Mother Stroke Sister No Known Problems Sister No Known Problems Daughter No Known Problems Son Heart disease Paternal Grandmother No Known Problems Paternal Grandfather Stroke Maternal Grandmother Heart disease Maternal Grandfather OBJECTIVE VITAL SIGNS: Temperature: [36 ??C-36.4 ??C] 36.4 ??C Heart Rate: [39-48] 40 Resp Rate: [15-26] 16 Blood Pressure: (136-180)/(66-102) 152/102 SpO2: [95 %-98 %] 97 % Weight: [82.2 kg] 82.2 kg Pulse Rate: [39-54] 51 There is no height or weight on file to calculate BMI. PHYSICAL EXAMINATION General: Mr. Khanna is a 78 y.o. year old male. Pleasant and conversant, responds to questions appropriately. Heart: Bradycardic rhythm, grade 1-2/6 systolic murmur heard best at upper sternal border. JVP slightly elevated above the clavicle Lungs: Decreased lung sounds at the bases otherwise clear to auscultation bilaterally and throughout. On room air. No cough. Nonlabored breathing. Abdomen: Soft, non-distended, non-tender to palpation throughout. Positive bowel sounds. Musculoskeletal/Joints: No joint erythema, swelling, tenderness. Mental: Alert and oriented to person place time and situation. Good historian. Neuro: No neurological deficits were appreciated. Skin: Warm, dry, color normal for race. Grossly intact. Eyes: EOM intact, no scleral icterus. ENT: Mucous membranes moist, no oral lesions. Extremities: Peripheral pulses intact, trace lower extremity edema DIAGNOSTICS I have reviewed the following labs: Hemoglobin 12.8, hematocrit 37.2, platelets 192, WBC 8.2 Potassium 4.2, sodium 126, chloride 94, bicarb 20, BUN 18, creatinine 0.73 NT proBNP 2796, D-dimer 307, troponin 16 ECG 12 Lead 10/31/2023 Marked sinus bradycardia with 2nd degree A-V block (Mobitz II) with 2:1 A-V conduction Cannot rule out Anteroseptal infarct Right bundle branch block with secondary ST-T abnormalities Left anterior fascicular block Bifascicular block When compared with ECG of 21-OCT-2023 08:35, Sinus rhythm is now with 2nd degree A-V block (Mobitz II) with 2:1 A-V conduction Emergent Criteria: Communicated to RN via phone call regarding 2nd Degree type 2 heart block with 2:1 A-V conduction on 10/30 @ 23:57. DX Chest Portable 1 View 10/31/2023 Result Date: 10/31/2023 Impression: Comparison 10/21/2023. Normal heart size. Mild central pulmonary vascular congestion. Redemonstrated small hiatal hernia. Diffuse reticular parenchymal opacity throughout both lungs suggestive of interstitial edema. No dense consolidation, pleural effusion, or pneumothorax. Transthoracic echocardiogram: 10/12/2022 Final Impressions 1. Mildly enlarged left ventricular chamber size. Calculated left ventricular ejection fraction 47 % and visually appears less at times (closer to 40 % - 45 %). 2. Accurate calculation of LV ejection fraction challenging due to ectopy with significant [id number]-jn-fzuo variability. 3. Regional wall motion abnormalities were present (see wall motion graphics). 4. Findings consistent with normal left ventricular filling pressure at rest. 5. Mildly enlarged right ventricular chamber size with mildly reduced systolic function. 6. Estimated right ventricular systolic pressure 46 mmHg (systolic blood pressure 121 mmHg). 7. Mild-moderate aortic valve stenosis (mean gradient 18 mmHg; valve area 1.48 cm2). Mild aortic valve regurgitation. 8. Tricuspid annulus dilatation with mild to moderate tricuspid valve regurgitation (accentuated during inspiration). 9. Normal inferior vena cava size with normal inspiratory collapse (>50%). 10. No intracardiac or intrapulmonary shunt. 11. No pericardial effusion. 12. Compared to the report of 10/16/2021 the following changes have occurred: Left ventricle measures larger with a lower ejection fraction. LV regional wall motion abnormalities are modestly more extensive and more severe at the apex. Estimated RV systolic pressure is higher with a mild increase in tricuspid regurgitation. Suspect that more ectopy was present during today's study. Side by side comparison of images performed. ASSESSMENT / PLAN #1 Shortness of breath #2 Symptomatic bradycardia with 2nd degree A-V block with 2:1 A-V conduction #3 Acute on chronic systolic heart failure with midrange ejection fraction (LVEF 40-45%, TTE 10/12/2022) #4 Coronary artery disease, s/p STEMI with SANTIAGO x2 to proximal and mid LAD (2014) #5 Ischemic cardiomyopathy with midrange ejection fraction #6 History of frequent ventricular ectopy #7 Mild-moderate aortic valve stenosis #8 Mild-moderate tricuspid valve regurgitation #9 Metastatic papillary thyroid cancer, s/p resection (2019), on replacement #10 History of Mobitz I second-degree AV block #11 Hyperlipidemia #12 Hypertension #13 GERD #14 Asthma #15 BPH #16 B-cell non-Hodgkin lymphoma #17 Recent Urinary tract infection, on Macrobid #18 Mild normocytic anemia #19 Hyponatremia Mr. Khanna is a 78 y.o. male who presented to his local emergency department for shortness of breath over the past 2 weeks. He has medical comorbidities including, but not limited to, CAD s/p STEMI with SANTIAGO x2 to proximal and mid LAD (2014), ischemic cardiomyopathy with midrange ejection fraction (40-45%), hypertension, hyperlipidemia, mild-moderate , mild-moderate TR, thyroid cancer s/p resection (2018), B-cell lymphoma, history of frequent ventricular ectopy and second-degree AV block Mobitz 1, asthma, BPH, GERD, and recently diagnosed urinary tract infection. Patient appears to have progression of his conduction system disease that is symptomatic with second-degree AV block with 2:1 AV conduction noted on ECG. We will plan to obtain transthoracic echocardiogram today to assess his cardiac function, patient would likely benefit from permanent pacemaker or WATERMASTER-D pending TTE results. Patient is currently hemodynamically stable and asymptomatic at rest. His heart rate did improve into the high 50s/low 60s when walking around his room. Patient will be made NPO until staffed with mental hygiene consultant in the morning. We will hold his home carvedilol. His troponin at outside ED was 16, we will trend troponin here. He denies having any chest pain at rest or chest pain/discomfort with exertion. He did undergo a stress test in November of this year which demonstrated a reversible defect confined to the apical anterior wall, consistent with his previous myocardial infarction. Regarding his volume status, he was given 20 mg of IV furosemide at outside ED prior to transfer due to mild pulmonary congestion and elevated NT proBNP. He now appears near euvolemic on exam, does not have any shortness of breath at rest, and is oxygenating well on room air. I will therefore hold off on any further diuresis at this time, he is not on any home diuretic. PLAN: Continuous monitoring on telemetry Obtain transthoracic echocardiogram to assess general cardiac function and valve disease NPO until staffed with mental hygiene consultant, patient would likely benefit from pacing system Hold carvedilol Monitor response to 20 mg IV furosemide given at outside ED Continue home medications including aspirin 81 mg daily, levothyroxine, lisinopril 40 mg daily, loratadine, Singulair, multivitamin, rosuvastatin, and tamsulosin Continue nitrofurantoin to complete a 7 day course for urinary tract infection (last dose 11/03/2023) Obtain CBC, CMP, TSH, Hgb A1c, Mg, and trend troponin with a.m. labs VTE: SCDs GI: not indicated Code Status: Full Code Disposition: Home - self care Naveen Bell P.A.-C. 10/31/23 I personally spent a total of 90 minutes providing and coordinating care today. ED GOODS INSPECTOR TRIMMER documented in this encounter Procedure Notes * Gilbert Goss M.D. - 11/01/2023 6:32 PM CST POST-PROCEDURE NOTE: PROCEDURE: Dual chamber pacemaker implantation PROCEDURALIST: MD Gilbert Saldana M.D. BRIEF OPERATIVE NOTE: The patient was prepped and draped in a sterile field. The left infraclavicular region was then liberally infiltrated with local anesthetic agent. A 4-cm long transverse incision was made through theskin and subcutaneous tissue exposing the pectoral fascia and muscle beneath. A pocket was fashioned for the pulse generator in the subcutaneous space. Hemostasis was readily achieved with electrocautery. A left upper extremity peripheral venogram was performed using 10 mL radiocontrast dye in order to determine location of the subclavian vein. The left subclavian vein was punctured percutaneously in an extrathoracic approach using a Micropuncture needle and cannulated using the modified [place] er technique, leaving a guidewire in place. Following this, venous access was similarly obtained for a second wire. A peel-away sheath was inserted over one of the guidewires and the ventricular leadwas positioned in the RV mid septum using fluoroscopic guidance; satisfactory pacing thresholds andR wave sensing was obtained. Ten-volt pacing was performed for assessment of diaphragmatic stimulation; there was none. Following this, a peel-away sheath was inserted over the second guidewire. Then, the atrial lead was advanced through a similarly placed peel-away sheath in the same fashion and positioned in the right atrial appendage and screwed in place under fluoroscopic guidance. Satisfactory pacing thresholdsand P wave sensing was likewise obtained. The previously formed pocket was irrigated with saline solution. After this, the leads were connected securely to the pulse generator. The leads were wrappedcarefully behind the generator and the generator placed in the pocket. The pacemaker generator was sutured to the pocket. The pectoral fascia was closed with 2-0 Vicryl using interrupted sutures. Thesubcutaneous layer was then closed with a continuous layer of 2-0 Vicryl sutures. The superficial skin layer was closed using continuous layer of 4-0 stratifix sutures. A meplex dressing was applied over the site. ESTIMATED BLOOD LOSS: 10 mL COMPLICATIONS: No acute complications RECOMMENDATIONS: 1. PA and lateral chest x-ra. 2. ECG in the morning 3. Device interrogation in the morning. ED GOODS INSPECTOR TRIMMER documented in this encounter Consult Notes * Gabbi Canales R.N. - 10/31/2023 10:48 AM CSTAssociated Order(s): IP CONSULT TO CARE MANAGEMENT Discharge Planning Assessment SUBJECTIVE Assessment Information Referral Source: Early Screen for Discharge Planning Referral Reason: Discharge Planning Primary Language: Belgian Manager Zone Services Used: No Person(s) present during interview: Person(s) Present During Interview: patient History of Present Illness #1 Heart Failure NOS #2 Hyperlipidemia #3 Atherosclerotic Heart Disease Of [place] Coronary Artery Without Angina Pectoris #4 Cardiomyopathy Ischemic #5 Malignant Neoplasm Of Thyroid (HCC) #6 Unspecified B Cell Lymphoma Lymph Nodes Of Multiple Sites (HCC) #7 Beat Premature Ventricular #8 Retention Urinary #9 Chronic Kidney Disease (CKD), Stage 3a Glomerular Filtration Rate (GFR) 45 To 59 (HCC) #10 Bradycardia Social History Marital Status: Finance/Insurance Primary insurance: MEDICARE A AND B Secondary insurance: [employer] benefits: No Advance Directives Legal Decision Maker: Self OBJECTIVE Baseline Functional Status Baseline Activities of Daily Living Mobility: Independent Dressing: Independent Feeding: Independent Bathing: Independent Grooming: Independent Toileting: Independent Behavior: Appropriate, Pleasant, Cooperative, Calm, Oriented Communication: Can write, Talks, Understands speaking, Understands Belgian, Reads Shopping: Independent Medication Management: Independent Housekeeping: Independent Meal Prep: Independent Assistive Devices: Eyeglasses Baseline Services/Resources Primary care clinic and provider: ELSEWHERE, PCP Additional Resources: n/a Anticipated Needs Functional Status: None Assistive Devices: None Anticipated Modifications to the Patient's Home: None Transportation Needs: Support from family, Independent to drive Does the patient need discharge transport arranged?: No Anticipated Discharge Destination: Home or Self Care ASSESSMENT / PLAN Assessment: The sales assoc met with Levi Khanna to discuss his current hospitalization and home going needs. The patient was accompanied by his son . The patient was a reliable historian. The role of sales assoc was reviewed. The patient reviewed his prior level of care and support system. The patient receives support from his . The patient described his living environment as a multiple level home with stairs to enter with rails. Housekeeping, grocery shopping, meal prep, and other household responsibilities have previously been completed by patient. sales assoc discussed the patient's potential needs at dismissal based on their home setting, previous needs and responsibilities, homebound status, and relevant assessments with the patient. The patient will be safe and supported to return home with spouse/S.O. when medically ready. Support will be provided by his and children. The patient demonstrated understanding when discussing his home going plans and anticipated needs. Patient shared that he lives with his in [place], [place] where he is independent with ADL/IADL needs and feels safe and supported to return home when medically ready to discharge. His family will provide transportation. At this time, the care team has not identified any skilled post-hospital discharge care needs that require the assistance of the Care Management Team. After reviewing the patient's chart and meeting with the patient, the sales assoc deemed the LACE+/readmission questions were not necessary. The patient reports understanding that he will dismiss from the hospital when medically stable. Pending hospital course and medical readiness, no barriers to dismissal have been identified at this time. Plan: The patient agrees with the following plan. Patient's anticipated discharge disposition is: Home to Self Care Transportation upon dismissal will be provided by family--son . sales assoc recommended nothing at this time. sales assoc provided information regarding the dismissal process. sales assoc placed or requested the following hospital-based consult orders and/or referrals: None. sales assoc will continue to assess for homegoing needs with the interdisciplinary team. sales assoc encouraged the patient to reach out with any questions/concerns. Signed by: Gabbi Canales R.N. 10/31/2023 ED GOODS INSPECTOR TRIMMER documented in this encounter Nursing Notes * Elsa Rome R.N. - 11/02/2023 12:42 PM CST Shift Goals: Clinical Goals for the Shift: Patient will remain free from pain this shift. Identify possible barriers to meeting goals/advancing plan of care: none End of Shift Summary: Goal met. Patient complained of slight achiness at PPM site, relieved with one dose of PRN tylenol. Device interrogation completed this morning. Patient, again, had clots in urine this morning. Sx notified and not concerned, and pt does have f/u set up with PCP and urology in the next couple of weeks. RN provided discharge education and reviewed AVS, discharge summary, and patient appointment guide with patient and family. RN reviewed activity restrictions with patient regarding new pacemaker. PIV removed and telemetry discontinued. Patient left unit with all belongings via wheelchair. Patient going [facility] with family providing transportation. Problem: PAIN - ADULT Goal: PT VERBALIZES/DEMONSTRATES ADEQUATE COMFORT LEVEL OR BASELINE Outcome: Adequate for Discharge Problem: KNOWLEDGE DEFICIT Goal: Patient/family/caregiver demonstrates understanding of disease process, treatment plan, medications, and discharge instructions Outcome: Adequate for Discharge Problem: INFECTION - ADULT Goal: Absence of infection during hospitalization Outcome: Adequate for Discharge Problem: SKIN/TISSUE INTEGRITY Goal: Skin/Tissue integrity maintained or improved Outcome: Adequate for Discharge Goal: Oral and Nasal mucous membranes remain intact Outcome: Adequate for Discharge Problem: SAFETY ADULT Goal: Maintain a safe environment Outcome: Adequate for Discharge Problem: DISCHARGE PLANNING Goal: Patient discharge needs identified Outcome: Adequate for Discharge Problem: SAFETY ADULT - RISK FOR FALL AND OR FALL INJURY Goal: Patient remains free from fall/fall injury Outcome: Adequate for Discharge Electronically signed by: Elsa Rome R.N. 11/02/23 12:47 PM MOLDED GOODS INSPECTOR TRIMMER ED GOODS INSPECTOR TRIMMER documented in this encounter Miscellaneous Notes * Hospital Course - Cain Holguin P.A.-C. - 10/31/2023 1:52 AM CST Mr. Khanna is a 78 year old male who presented to local emergency department for evaluation of shortness of breath. He was admitted to the [facility] Admit/Triage Hospital service. He has medical comorbidities including, but not limited to, CAD s/p STEMI with SANTIAGO x2 to proximal and mid LAD (2014), ischemic cardiomyopathy with midrange ejection fraction (40-45%), hypertension, hyperlipidemia, thyroidcancer s/p resection (2018), B-cell lymphoma, history of frequent ventricular ectopy and second-degree AV block Mobitz 1, asthma, BPH, GERD, and recently diagnosed urinary tract infection. Patient reported experiencing worsening shortness of breath over the past 2 weeks that worsened with exertion. He first noticed symptoms when walking with his family, and he simply could not keep up with them due to dyspnea. He therefore presented to his local emergency department on 10/21/23 whereworkup was largely unremarkable and he was discharged home. However, he continued to experience significant shortness of breath which prompted him to present to the emergency department again on 10/30/2023. In the emergency department, lab work demonstrated mild anemia, hyponatremia with sodium 126, no leukocytosis, electrolytes within normal limits, creatinine 0.73, elevated NT proBNP from priorat 2796, troponin 16, D-dimer 307. ECG demonstrated bradycardia at 43 beats per minute with second-degree AV block with 2:1 A-V conduction. Chest x-ray revealed mild pulmonary vascular congestion. Hewas given 20 mg of IV furosemide and transferred to [facility] for further evaluation. Upon arrival to the floor, patient was hemodynamically stable and asymptomatic at rest and remainedin high grade AV block. Given his significant bradycardia, his home carvedilol was held. Transthoracic echocardiogram was obtained which demonstrated a preserved LVEF of 51% and progression of his valvular disease from mild to moderate aortic stenosis and mild to moderate tricuspid regurgitation. Of note, he was diagnosed with urinary tract infection on 10/27/2023 and was receiving treatment with nitrofurantoin. Due to a mild leukocytosis of 9.7 permanent pacemaker implantation was temporarily delayed. The following day leukocytosis resolved, patient was nontoxic appearing and had no systemic signs of infection, therefore patient underwent left-sided dual-chamber pacemaker implantation on11/01/23 without acute complication. Postprocedure CXR that was treated appropriate lead placement and no pneumothorax. Device interrogation demonstrated appropriate function. For guideline directed medical therapy carvedilol was resumed post device implantation. Patient was recommended to continue his nitrofurantoin through the evening of , 11/03/2023 for a total of 7-day course for his UTI. Patient was discharged home on 11/02/2023 in stable condition with his family. ED GOODS INSPECTOR TRIMMER documented in this encounter Plan of Treatment Upcoming Encounters Date Type Department Care Team (Late st Contact Info) Description 12/13/2023 8:50 AM MOLDED GOODS INSPECTOR TRIMMER Appointment Department of Laboratory Medicine and Pathology, [facility] [place], [place] [address] [place] [phone] Natasha Mullins APRN, C.N.P., M.S., M.S.N. [address] [place] [phone] 12/13/2023 11:00 AM MOLDED GOODS INSPECTOR TRIMMER Office Visit Department of Cardiovascular Medicine in [place], [place] [address] [place] [phone] Natasha Mullins APRN, C.N.P., M.S., M.S.N. [address] [place] [phone] 02/02/2024 9:15 AM CDT Appointment Department of Cardiovascular Diseases in [place], [place] [address] [place] [phone] Fazal Reynoso M.D. [address] [place] [phone] documented as of this encounter Procedures Procedure Name Priority Date/Time Associated Diagnosis Comments CAR CARDIAC DEVICE INTERROGATION Routine 11/02/2023 10:11 AM MOLDED GOODS INSPECTOR TRIMMER CBC WITHOUT DIFFERENTIAL, B Routine 11/02/2023 9:39 AM MOLDED GOODS INSPECTOR TRIMMER BASIC METABOLIC PANEL, S/P Routine 11/02/2023 9:39 AM MOLDED GOODS INSPECTOR TRIMMER ECG Routine 11/02/2023 4:42 AM MOLDED GOODS INSPECTOR TRIMMER DX CHEST AP OR PA AND LATERAL 2 VIEWS RAD - Routine (most inpatients and all outpatients) 11/01/2023 9:18 PM MOLDED GOODS INSPECTOR TRIMMER ADULT OXYGEN THERAPY Routine 11/01/2023 5:55 PM MOLDED GOODS INSPECTOR TRIMMER ADULT OXYGEN THERAPY Routine 11/01/2023 5:55 PM MOLDED GOODS INSPECTOR TRIMMER HEART RHYTHM PROCEDURE Routine 11/01/2023 5:12 PM MOLDED GOODS INSPECTOR TRIMMER Block Atrioventricular Second Degree CAR CARDIAC DEVICE INTERROGATION Routine 11/01/2023 4:07 PM MOLDED GOODS INSPECTOR TRIMMER SODIUM, RANDOM, U Routine 11/01/2023 10:44 AM MOLDED GOODS INSPECTOR TRIMMER OSMOLALITY, U Routine 11/01/2023 10:44 AM MOLDED GOODS INSPECTOR TRIMMER ADULT OXYGEN THERAPY Routine 11/01/2023 8:01 AM MOLDED GOODS INSPECTOR TRIMMER CBC WITH DIFFERENTIAL, B Routine 11/01/2023 6:35 AM MOLDED GOODS INSPECTOR TRIMMER OSMOLALITY, S Routine 11/01/2023 6:35 AM MOLDED GOODS INSPECTOR TRIMMER MAGNESIUM, S Routine 11/01/2023 6:35 AM MOLDED GOODS INSPECTOR TRIMMER BASIC METABOLIC PANEL, S/P Routine 11/01/2023 6:35 AM MOLDED GOODS INSPECTOR TRIMMER ADULT OXYGEN THERAPY Routine 10/31/2023 8:01 PM MOLDED GOODS INSPECTOR TRIMMER DIPSTICK, U Routine 10/31/2023 12:22 PM MOLDED GOODS INSPECTOR TRIMMER MICROSCOPIC AUTOMATED Routine 10/31/2023 12:22 PM MOLDED GOODS INSPECTOR TRIMMER PH, U Routine 10/31/2023 12:22 PM MOLDED GOODS INSPECTOR TRIMMER OSMOLALITY, U Routine 10/31/2023 12:22 PM MOLDED GOODS INSPECTOR TRIMMER URINALYSIS WITH MICROSCOPIC Routine 10/31/2023 12:22 PM MOLDED GOODS INSPECTOR TRIMMER (TTE) 2D ECHO DOPPLER COLOR Routine 10/31/2023 9:42 AM MOLDED GOODS INSPECTOR TRIMMER THYROID FUNCTION CASCADE, S Routine 10/31/2023 8:14 AM MOLDED GOODS INSPECTOR TRIMMER CBC WITHOUT DIFFERENTIAL, B Routine 10/31/2023 8:14 AM MOLDED GOODS INSPECTOR TRIMMER TROPONIN T, 5TH GEN, P Routine 10/31/2023 8:14 AM MOLDED GOODS INSPECTOR TRIMMER MAGNESIUM, S Routine 10/31/2023 8:14 AM MOLDED GOODS INSPECTOR TRIMMER HEMOGLOBIN A1C, B Routine 10/31/2023 8:14 AM MOLDED GOODS INSPECTOR TRIMMER COMPREHENSIVE METABOLIC PANEL, S/P Routine 10/31/2023 8:14 AM MOLDED GOODS INSPECTOR TRIMMER ADULT OXYGEN THERAPY Routine 10/31/2023 8:01 AM MOLDED GOODS INSPECTOR TRIMMER ADULT OXYGEN THERAPY Routine 10/31/2023 3:46 AM MOLDED GOODS INSPECTOR TRIMMER ADULT OXYGEN THERAPY Routine 10/31/2023 3:46 AM MOLDED GOODS INSPECTOR TRIMMER documented in this encounter Results * CARDIOVASCULAR IMPLANTABLE ELECTRONIC DEVICE - NO CHARGE (11/02/2023 10:11 AM MOLDED GOODS INSPECTOR TRIMMER) Date Time Interrogation Session [id number] [facility] Implantable Pulse Generator Design Technician Medtronic [facility] Implantable Pulse Generator Model [id number] Forest XT DR MRI [facility] Implantable Pulse Generator Serial Number [id number] [facility] Type Interrogation Session In [facility] Clinic Name [facility] Implantable Pulse Generator Type Pacemaker [facility] Implantable Pulse Generator Implant Date 20231101 [facility] Implantable Lead Design Technician Medtronic [facility] Implantable Lead Model 4076 CapsureFix Novus MRI SureScan [facility] Implantable Lead Serial Number [id number] [facility] Implantable Lead Implant Date 20231101 [facility] Implantable Lead Polarity Type Bipolar Lead [facility] Implantable Lead Location Detail 1 UNKNOWN [facility] Implantable Lead Special Function Lead length: 52 cm [facility] Implantable Lead Location Right Atrium [facility] Implantable Lead Design Technician Medtronic [facility] Implantable Lead Model 4076 CapsureFix Novus MRI [employer] [facility] Implantable Lead Serial Number [id number] [facility] Implantable Lead Implant Date 20231101 [facility] Implantable Lead Polarity Type Bipolar Lead [facility] Implantable Lead Location Detail 1 UNKNOWN [facility] Implantable Lead Special Function Lead length: 58 cm [facility] Implantable Lead Location Right Ventricle [facility] Сергей Setting Mode (NBG Code) DDD [facility] Сергей Setting Lower Rate Limit 60 {beats}/ min [facility] Сергей Setting Maximum Tracking Rate 120 {beats}/ min [facility] Сергей Setting Maximum Sensor Rate 120 {beats}/ min [facility] Сергей Setting KATHY Delay Low 150 ms [facility] Сергей Setting PAV Delay Low 180 ms [facility] Сергей Setting AT Mode Switch Rate 171 {beats}/ min [facility] Сергей Setting AT Mode Switch Mode DDIR [facility] Lead Channel Setting Sensing Polarity Bipolar [facility] Lead Channel Setting Sensing Anode Location Right Atrium [facility] Lead Channel Setting Sensing Anode Terminal Ring [facility] Lead Channel Setting Sensing Cathode Location Right Atrium [facility] Lead Channel Setting Sensing Cathode Terminal Tip [facility] Lead Channel Setting Sensing Sensitivity 0.3 mV [facility] Lead Channel Setting Sensing Polarity Bipolar [facility] Lead Channel Setting Sensing Anode Location Right Ventricle [facility] Lead Channel Setting Sensing Anode Terminal Ring [facility] Lead Channel Setting Sensing Cathode Location Right Ventricle [facility] Lead Channel Setting Sensing Cathode Terminal Tip [facility] Lead Channel Setting Sensing Sensitivity 0.9 mV [facility] Lead Channel Setting Pacing Polarity Bipolar [facility] Lead Channel Setting Pacing Anode Location Right Atrium [facility] Lead Channel Setting Pacing Anode Terminal Ring [facility] Lead Channel Setting Sensing Cathode Location Right Atrium [facility] Lead Channel Setting Sensing Cathode Terminal Tip [facility] Lead Channel Setting Pacing Pulse Width 0.4 ms [facility] Lead Channel Setting Pacing Amplitude 3.5 V [facility] Lead Channel Setting Pacing Capture Mode Adaptive [facility] Lead Channel Setting Pacing Polarity Bipolar [facility] Lead Channel Setting Pacing Anode Location Right Ventricle [facility] Lead Channel Setting Pacing Anode Terminal Ring [facility] Lead Channel Setting Sensing Cathode Location Right Ventricle [facility] Lead Channel Setting Sensing Cathode Terminal Tip [facility] Lead Channel Setting Pacing Pulse Width 0.4 ms [facility] Lead Channel Setting Pacing Amplitude 3.5 V [facility] Lead Channel Setting Pacing Capture Mode Adaptive [facility] Zone Setting Type Category VF [facility] Zone Setting Type Category VT [facility] Zone Setting Type Category VT [facility] Zone Setting Type Category VT [facility] Zone Setting Detection Interval 360 ms [facility] Zone Setting Type Category ATRIAL_FIBRILLATI ON [facility] Zone Setting Type Category AT/AF [facility] Zone Setting Detection Interval 350 ms [facility] Lead Channel Impedance Value 589 ohm [facility] Lead Channel Impedance Value 532 ohm [facility] Lead Channel Sensing Intrinsic Amplitude 6.125 mV [facility] Lead Channel Sensing Intrinsic Amplitude 5.75 mV [facility] Lead Channel Pacing Threshold Amplitude 0.25 V [facility] Lead Channel Pacing Threshold Pulse Width 0.4 ms [facility] Lead Channel Impedance Value 589 ohm [facility] Lead Channel Impedance Value 475 ohm [facility] Lead Channel Sensing Intrinsic Amplitude 9.875 mV [facility] Lead Channel Sensing Intrinsic Amplitude 7.375 mV [facility] Lead Channel Pacing Threshold Amplitude 0.5 V [facility] Lead Channel Pacing Threshold Pulse Width 0.4 ms [facility] Battery Date Time of Measurements [id number] [facility] Battery Status Beginning of Service [facility] Battery APPLICATION ARCHITECT Trigger 2.625 [facility] Battery Voltage 3.19 V [facility] Сергей Statistic Date Time Start [id number] [facility] Сергей Statistic Date Time End [id number] [facility] Сергей Statistic RA Percent Paced 6.8 % [facility] Сергей Statistic RV Percent Paced 95.31 % [facility] Сергей Statistic AP STOVE CARRIAGE OPERATOR Percent 5.62 % [facility] Сергей Statistic STOVE CARRIAGE OPERATOR Percent 89.69 % [facility] Сергей Statistic AP VS Percent 0.07 % [facility] Сергей Statistic VS Percent 4.63 % [facility] Atrial Tachy Statistic Date Time Start [id number] [facility] Atrial Tachy Statistic Date Time End [id number] [facility] Atrial Tachy Statistic AT/AF [place] Percent 0 % [facility] Episode [...] SYSTEM Episode Statistic Recent Date Time Start [id number] [facility] Episode Statistic Recent Date Time End [id number] [facility] Episode Statistic Recent Date Time Start [id number] [facility] Episode Statistic Recent Date Time End [id number] [facility] Episode Statistic Recent Date Time Start [id number] [facility] Episode Statistic Recent Date Time End [id number] [facility] Episode Statistic Recent Date Time Start [id number] [facility] Episode Statistic Recent Date Time End [id number] [facility] Episode Statistic Recent Date Time Start [id number] [facility] Episode Statistic Recent Date Time End [id number] [facility] Episode Statistic Total Count [...] SYSTEM Episode Statistic Total Date Time Start [id number] [facility] Episode Statistic Total Date Time End [id number] [facility] Episode Statistic Total Date Time Start [id number] [facility] Episode Statistic Total Date Time End [id number] [facility] Episode Statistic Total Date Time Start [id number] [facility] Episode Statistic Total Date Time End [id number] [facility] Episode Statistic Total Date Time Start [id number] [facility] Episode Statistic Total Date Time End [id number] [facility] Episode Statistic Total Date Time Start [id number] [facility] Episode Statistic Total Date Time End [id number] [facility] Anatomical Region Laterality Modality Other 11/02/2023 9:44 AM MOLDED GOODS INSPECTOR TRIMMER Narrative 11/03/2023 10:13 AM MOLDED GOODS INSPECTOR TRIMMER PURPOSE OF VISIT: ??Patient seen post op day one PRESENTING RHYTHM: ??Atrial sense Ventricular pace at 75 bpm UNDERLYING RHYTHM: ??Sinus w/sinus rate at 75 bpm w/CHB and junctional escape at 38 bpm ?? ATRIAL ARRHYTHMIAS: ??No episodes VENTRICULAR ARRHYTHMIAS: ??No episodes BATTERY LONGEVITY: ??Expected battery longevity trends reviewed and are stable and consistent with device settings and use. SUMMARY: ??All device function appears normal. The left pectoral incision is in the process of healing with a mepilex in place and a slight hematoma. PROGRAMMING CHANGES: ??No changes EDUCATION: Patient is ready to learn with no apparent learning barriers. ?? I explained the interrogation findings and follow-up plan; patient asked appropriate questions and expressed understanding. FOLLOW UP LOCATION STATUS: [facility] ([place]) NEXT FOLLOW UP: Next routine follow-up will be in 3 months via in clinic DEVICE RN: Loni Parkinson RN Provider statement: This patient underwent device interrogation. I agree that the device interrogation was medically indicated to provide appropriate care and continue routine device interrogations as indicated. Kg Holguin M.D. CV IMPLANTABLE CARDI AC DEVICE * (ABNORMAL) Basic Metabolic Panel (11/02/2023 9:39 AM MOLDED GOODS INSPECTOR TRIMMER) Potassium, S 4.8 3.6 - 5.2 mmol/L 11/02/2023 10:36 AM MOLDED GOODS INSPECTOR TRIMMER DTL Sodium, S 127(L) 135 - 145 mmol/L 11/02/2023 10:36 AM MOLDED GOODS INSPECTOR TRIMMER DTL Chloride, S 94(L) 98 - 107 mmol/L 11/02/2023 10:36 AM MOLDED GOODS INSPECTOR TRIMMER DTL Bicarbonate, S 20(L) 22 - 29 mmol/L 11/02/2023 10:36 AM MOLDED GOODS INSPECTOR TRIMMER DTL Anion Gap 13 7 - 15 11/02/2023 10:36 AM MOLDED GOODS INSPECTOR TRIMMER DTL BUN (Blood Urea Nitrogen), S 15 8 - 24 mg/dL 11/02/2023 10:36 AM MOLDED GOODS INSPECTOR TRIMMER DTL Creatinine 0.80 0.74 - 1.35 mg/dL 11/02/2023 10:36 AM MOLDED GOODS INSPECTOR TRIMMER DTL Estimated GFR (eGFR) 89 >=60 mL/min/BSA 11/02/2023 10:36 AM MOLDED GOODS INSPECTOR TRIMMER DTL Comment: Estimated GFR calculated using the 2020 CKD_EPI creatinine equation. Calcium, Total, S 9.3 8.8 - 10.2 mg/dL 11/02/2023 10:36 AM MOLDED GOODS INSPECTOR TRIMMER DTL Glucose, S 140 70 - 140 mg/dL 11/02/2023 10:36 AM MOLDED GOODS INSPECTOR TRIMMER DTL Blood (Blood, Venous) 11/02/2023 9:39 AM MOLDED GOODS INSPECTOR TRIMMER 11/02/2023 10:17 AM MOLDED GOODS INSPECTOR TRIMMER Delilah Lopez P.A.-C., M.S. LAB [place] [address], [place] [address] * (ABNORMAL) CBC without Differential (11/02/2023 9:39 AM MOLDED GOODS INSPECTOR TRIMMER) Hemoglobin 14.1 13.2 - 16.6 g/dL 11/02/2023 10:57 AM MOLDED GOODS INSPECTOR TRIMMER DHPM Hematocrit 40.7 38.3 - 48.6 % 11/02/2023 10:57 AM MOLDED GOODS INSPECTOR TRIMMER DHPM Erythrocytes 4.53 4.35 - 5.65 x10(12)/L 11/02/2023 10:57 AM MOLDED GOODS INSPECTOR TRIMMER DHPM MCV 89.8 78.2 - 97.9 fL 11/02/2023 10:57 AM MOLDED GOODS INSPECTOR TRIMMER DHPM RBC Distrib Width 12.8 11.8 - 14.5 % 11/02/2023 10:57 AM MOLDED GOODS INSPECTOR TRIMMER DHPM Platelet Count 238 135 - 317 x10(9)/L 11/02/2023 10:57 AM MOLDED GOODS INSPECTOR TRIMMER DHPM Leukocytes 12.7(H) 3.4 - 9.6 x10(9)/L 11/02/2023 10:57 AM MOLDED GOODS INSPECTOR TRIMMER [facility] Blood (Blood, Venous) 11/02/2023 9:39 AM MOLDED GOODS INSPECTOR TRIMMER 11/02/2023 10:07 AM MOLDED GOODS INSPECTOR TRIMMER Delilah Lopez P.A.-C., M.SCarmine LAB BLOOD ADD- ON Performing Organization Address City/[facility] Co de Phone Number [facility] [address] [place], [place] [phone] [place] [address] [place] [address] * ECG 12 Lead (11/02/2023 4:42 AM MOLDED GOODS INSPECTOR TRIMMER) Ventricular Rate ECG/Min 81 BPM MUSE AK Interval 190 ms MUSE QRSD Interval 170 ms MUSE QT Interval 416 ms MUSE QTC Interval 483 ms MUSE P [place] 65 degrees MUSE R [place] 65 degrees MUSE T Wave [place] 265 degrees MUSE 11/02/2023 4:42 AM MOLDED GOODS INSPECTOR TRIMMER 11/02/2023 5:21 AM MOLDED GOODS INSPECTOR TRIMMER Impressions MUSE - 11/02/2023 5:12 AM MOLDED GOODS INSPECTOR TRIMMER Dual chamber electronic pacemaker Sinus rhythm Premature ventricular complexes Premature supraventricular complexes When compared with ECG of 30-OCT-2023 23:43, Significant changes have occurred Reviewed by WALESKA Barajas Narrative Procedure Note Hi Khan M.D. - 11/02/2023 IMPRESSION: Dual chamber electronic pacemaker Sinus rhythm Premature ventricular complexes Premature supraventricular complexes When compared with ECG of 30-OCT-2023 23:43, Significant changes have occurred Reviewed by WALESKA Barajas Kg Holguin M.D. ECG ORDERABLES Performing Organization Address [facility] Co de Phone Number MUSE NA * DX Chest AP or PA and Lateral 2 Views (11/01/2023 9:18 PM MOLDED GOODS INSPECTOR TRIMMER) Anatomical Region Laterality Modality Chest, Thoracic RST LOS, Tho racic ARZ LOS, Thoracic FLA LOS N/A Digital Radiography 11/01/2023 10:2 3 PM MOLDED GOODS INSPECTOR TRIMMER Impressions 11/02/2023 10:43 AM MOLDED GOODS INSPECTOR TRIMMER Since 10/31/2023, interval placement of left chest wall dual-chamber pacemaker with leads in appropriate position. No focal consolidation, large pleural effusion, or discernible pneumothorax. ??Normal heart size. Large hiatal hernia containing air-fluid level. Narrative 11/02/2023 10:43 AM MOLDED GOODS INSPECTOR TRIMMER EXAM: ??DX CHEST AP OR PA AND [...] IMPLANT - DUAL CHAMBER (11/01/2023 5:12 PM MOLDED GOODS INSPECTOR TRIMMER) Anatomical Region Laterality Modality X-Ray Angiograph y 11/01/2023 4:16 PM MOLDED GOODS INSPECTOR TRIMMER Narrative 11/01/2023 5:21 PM MOLDED GOODS INSPECTOR TRIMMER For the complete report, see the Order-Level [...] ??Testing of the leads using an external visual basic programmer was performed revealing adequate threshold, sensitivity, [...] in stable condition without complications. ??The attending explosive technician was present for the entire procedure. Plan: [...] sutures.Testing of the leads using an external visual basic programmer was performed revealingadequate threshold, sensitivity, and [...] report, see the Order-Level Documents. Delilah Lopez P.A.-C. MCarmineSCarmine CV ELECTROPHYS IOLOGY PROCS * CARDIOVASCULAR IMPLANTABLE ELECTRONIC DEVICE - NO CHARGE (11/01/2023 4:07 PM MOLDED GOODS INSPECTOR TRIMMER) Date Time Interrogation Session [id number] [facility] Implantable Pulse Generator Design Technician Medtronic [facility] Implantable Pulse Generator Model [id number] [place] XT DR MRI [facility] Implantable Pulse Generator Serial Number [id number] [facility] Type Interrogation Session Implant [facility] Clinic Name [facility] Implantable Pulse Generator Type Pacemaker [facility] Implantable Pulse Generator Implant Date 20231101 [facility] Implantable Lead Design Technician Medtronic [facility] Implantable Lead Model 4076 CapsureFix Novus MRI SureScan [facility] Implantable Lead Serial Number [id number] [facility] Implantable Lead Implant Date 20231101 [facility] Implantable Lead Polarity Type Bipolar Lead [facility] Implantable Lead Location Detail 1 UNKNOWN [facility] Implantable Lead Special Function Lead length: 52 cm [facility] Implantable Lead Location Right Atrium [facility] Implantable Lead Design Technician Medtronic [facility] Implantable Lead Model 4076 CapsureFix Novus [place] SureScan [facility] Implantable Lead Serial Number [id number] [facility] Implantable Lead Implant Date 20231101 [facility] Implantable Lead Polarity Type Bipolar Lead [facility] Implantable Lead Location Detail 1 UNKNOWN [facility] Implantable Lead Special Function Lead length: 58 cm [facility] Implantable Lead Location Right Ventricle [facility] Сергей Setting Mode (NBG Code) DDD [facility] Сергей Setting Lower Rate Limit 60 {beats}/ min [facility] Сергей Setting Maximum Tracking Rate 120 {beats}/ min [facility] Сергей Setting Maximum Sensor Rate 120 {beats}/ min [facility] Сергей Setting KATHY Delay Low 150 ms [facility] Сергей Setting PAV Delay Low 180 ms [facility] Сергей Setting AT Mode Switch Rate 171 {beats}/ min [facility] Сергей Setting AT Mode Switch Mode DDIR [facility] Lead Channel Setting Sensing Polarity Bipolar [facility] Lead Channel Setting Sensing Anode Location Right Atrium [facility] Lead Channel Setting Sensing Anode Terminal Ring [facility] Lead Channel Setting Sensing Cathode Location Right Atrium [facility] Lead Channel Setting Sensing Cathode Terminal Tip [facility] Lead Channel Setting Sensing Sensitivity 0.3 mV [facility] Lead Channel Setting Sensing Polarity Bipolar [facility] Lead Channel Setting Sensing Anode Location Right Ventricle [facility] Lead Channel Setting Sensing Anode Terminal Ring [facility] Lead Channel Setting Sensing Cathode Location Right Ventricle [facility] Lead Channel Setting Sensing Cathode Terminal Tip [facility] Lead Channel Setting Sensing Sensitivity 0.9 mV [facility] Lead Channel Setting Pacing Polarity Bipolar [facility] Lead Channel Setting Pacing Anode Location Right Atrium [facility] Lead Channel Setting Pacing Anode Terminal Ring [facility] Lead Channel Setting Sensing Cathode Location Right Atrium [facility] Lead Channel Setting Sensing Cathode Terminal Tip [facility] Lead Channel Setting Pacing Pulse Width 0.4 ms [facility] Lead Channel Setting Pacing Amplitude 3.5 V [facility] Lead Channel Setting Pacing Capture Mode Adaptive [facility] Lead Channel Setting Pacing Polarity Bipolar [facility] Lead Channel Setting Pacing Anode Location Right Ventricle [facility] Lead Channel Setting Pacing Anode Terminal Ring [facility] Lead Channel Setting Sensing Cathode Location Right Ventricle [facility] Lead Channel Setting Sensing Cathode Terminal Tip [facility] Lead Channel Setting Pacing Pulse Width 0.4 ms [facility] Lead Channel Setting Pacing Amplitude 3.5 V [facility] Lead Channel Setting Pacing Capture Mode Adaptive [facility] Zone Setting Type Category VF [facility] Zone Setting Type Category [facility] Zone Setting Type Category VT [facility] Zone Setting Type Category [facility] Zone Setting Detection Interval 360 ms [facility] Zone Setting Type Category ATRIAL_FIBRILLATI ON [facility] Zone Setting Type Category AT/AF [facility] Zone Setting Detection Interval 350 ms [facility] Lead Channel Impedance Value 608 ohm [facility] Lead Channel Sensing Intrinsic Amplitude 2.75 mV [facility] Lead Channel Pacing Threshold Amplitude 0.5 V [facility] Lead Channel Pacing Threshold Pulse Width 0.4 ms [facility] Lead Channel Impedance Value 741 ohm [facility] Lead Channel Sensing Intrinsic Amplitude 6.625 mV [facility] Lead Channel Pacing Threshold Amplitude 0.25 V [facility] Lead Channel Pacing Threshold Pulse Width 0.4 ms [facility] Battery Date Time of Measurements [id number] [facility] Battery APPLICATION ARCHITECT Trigger 2.625 [facility] Battery Voltage 3.20 V [facility] Сергей Statistic Date Time Start [id number] [facility] Сергей Statistic Date Time End [id number] [facility] Сергей Statistic RA Percent Paced 0 % [facility] Сергей Statistic RV Percent Paced 0 % [facility] Сергей Statistic AP STOVE CARRIAGE OPERATOR Percent 0 % [facility] Сергей Statistic STOVE CARRIAGE OPERATOR Percent 0 % [facility] Сергей Statistic AP VS Percent 0 % [facility] Сергей Statistic VS Percent 0 % [facility] Atrial Tachy Statistic Date Time Start [id number] [facility] Atrial Tachy Statistic Date Time End [id number] [facility] Atrial Tachy Statistic AT/AF [place] Percent 0 % [facility] Episode [...] SYSTEM Episode Statistic Recent Date Time Start [id number] [facility] Episode Statistic Recent Date Time End [id number] [facility] Episode Statistic Recent Date Time Start [id number] [facility] Episode Statistic Recent Date Time End [id number] [facility] Episode Statistic Recent Date Time Start [id number] [facility] Episode Statistic Recent Date Time End [id number] [facility] Episode Statistic Recent Date Time Start [id number] [facility] Episode Statistic Recent Date Time End [id number] [facility] Episode Statistic Recent Date Time Start [id number] [facility] Episode Statistic Recent Date Time End [id number] [facility] Episode Statistic Total Count [...] SYSTEM Episode Statistic Total Date Time End [id number] [facility] Episode Statistic Total Date Time End [id number] [facility] Episode Statistic Total Date Time End [id number] [facility] Episode Statistic Total Date Time End [id number] [facility] Episode Statistic Total Date Time End [facility] Anatomical Region Laterality Modality Other 11/01/2023 3:49 PM MOLDED GOODS INSPECTOR TRIMMER Narrative 11/04/2023 11:15 AM MOLDED GOODS INSPECTOR TRIMMER PURPOSE OF VISIT: ?? Implant DCPM PRESENTING RHYTHM: ??2:1 AVB UNDERLYING RHYTHM: ??2:1 AVB, ventricular rate 33 bpm TEMPORARY PACEMAKER USED: N ? DRESSING: Mepilex SAME DAY DISMISSAL: ??N; already admitted at time of implant SUMMARY: ??All device function appears normal. DEVICE RN: ALEX Edwards Provider statement: This patient underwent device interrogation. I agree that the device interrogation was medically indicated to provide appropriate care and continue routine device interrogations as indicated. Kg Holguin M.D. CV IMPLANTABLE CARDI AC DEVICE * Sodium, Random, Urine (11/01/2023 10:44 AM MOLDED GOODS INSPECTOR TRIMMER) Sodium, Random, U 48 mmol/L 11/01/2023 12:55 PM MOLDED GOODS INSPECTOR TRIMMER DTL Comment: ----REFERENCE VALUE---- Random urine sodium may be interpreted in conjunction with serum sodium, using both values to calculate fractional excretion of sodium. Urine (Urine, Straight Catheter) 11/01/2023 10:44 AM MOLDED GOODS INSPECTOR TRIMMER 11/01/2023 11:37 AM MOLDED GOODS INSPECTOR TRIMMER Delilah Lopez P.A.-C., M.S. LAB URINE FRANDYE BENNIE [facility] [address] [place] [address], [facility] [address] [place] [address] * Osmolality, Urine (11/01/2023 10:44 AM MOLDED GOODS INSPECTOR TRIMMER) Osmolality, U 426 150 - 1150 mOsm/kg 11/01/2023 12:03 PM MOLDED GOODS INSPECTOR TRIMMER DTL Urine (Urine, Straight Catheter) 11/01/2023 10:44 AM MOLDED GOODS INSPECTOR TRIMMER 11/01/2023 11:37 AM MOLDED GOODS INSPECTOR TRIMMER Delilah Lopez P.A.-C. M.S. LAB URINE ORDE RABLES Performing Organization Address City/[facility]/[place] [address] * Magnesium (11/01/2023 6:35 AM MOLDED GOODS INSPECTOR TRIMMER) Magnesium, S 2.1 1.7 - 2.3 mg/dL 11/01/2023 7:35 AM MOLDED GOODS INSPECTOR TRIMMER DTL Blood (Blood, Venous) 11/01/2023 6:35 AM MOLDED GOODS INSPECTOR TRIMMER 11/01/2023 7:18 AM MOLDED GOODS INSPECTOR TRIMMER Delilah Lopez P.A.-C. M.S. LAB BLOOD ADD- ON Performing Organization Address [facility] [place] [address], [place] [address] * (ABNORMAL) Basic Metabolic Panel (11/01/2023 6:35 AM MOLDED GOODS INSPECTOR TRIMMER) Potassium, S 4.2 3.6 - 5.2 mmol/L 11/01/2023 7:35 AM MOLDED GOODS INSPECTOR TRIMMER DTL Sodium, S 128(L) 135 - 145 mmol/L 11/01/2023 7:35 AM MOLDED GOODS INSPECTOR TRIMMER DTL Chloride, S 94(L) 98 - 107 mmol/L 11/01/2023 7:35 AM MOLDED GOODS INSPECTOR TRIMMER DTL Bicarbonate, S 23 22 - 29 mmol/L 11/01/2023 7:35 AM MOLDED GOODS INSPECTOR TRIMMER DTL Anion Gap 11 7 - 15 11/01/2023 7:35 AM MOLDED GOODS INSPECTOR TRIMMER DTL BUN (Blood Urea Nitrogen), S 14 8 - 24 mg/dL 11/01/2023 7:35 AM MOLDED GOODS INSPECTOR TRIMMER DTL Creatinine 0.84 0.74 - 1.35 mg/dL 11/01/2023 7:35 AM MOLDED GOODS INSPECTOR TRIMMER DTL Estimated GFR (eGFR) 88 >=60 mL/min/BSA 11/01/2023 7:35 AM MOLDED GOODS INSPECTOR TRIMMER DTL Comment: Estimated GFR calculated using the 2020 CKD_EPI creatinine equation. Calcium, Total, S 8.4(L) 8.8 - 10.2 mg/dL 11/01/2023 7:35 AM MOLDED GOODS INSPECTOR TRIMMER DTL Glucose, S 98 70 - 140 mg/dL 11/01/2023 7:35 AM MOLDED GOODS INSPECTOR TRIMMER DTL Blood (Blood, Venous) 11/01/2023 6:35 AM MOLDED GOODS INSPECTOR TRIMMER 11/01/2023 7:18 AM MOLDED GOODS INSPECTOR TRIMMER Delilah Lopez P.A.-C. M.S. LAB BLOOD ADD- ON [facility] [address] [place] [address], [facility] [address] [place] [address] * (ABNORMAL) CBC with Differential, Blood (11/01/2023 6:35 AM MOLDED GOODS INSPECTOR TRIMMER) Hemoglobin 12.2(L) 13.2 - 16.6 g/dL 11/01/2023 7:18 AM MOLDED GOODS INSPECTOR TRIMMER DTL Hematocrit 34.5(L) 38.3 - 48.6 % 11/01/2023 7:18 AM MOLDED GOODS INSPECTOR TRIMMER DTL Erythrocytes 3.89(L) 4.35 - 5.65 x10(12)/L 11/01/2023 7:18 AM MOLDED GOODS INSPECTOR TRIMMER DTL MCV 88.7 78.2 - 97.9 fL 11/01/2023 7:18 AM MOLDED GOODS INSPECTOR TRIMMER DTL RBC Distrib Width 13.2 11.8 - 14.5 % 11/01/2023 7:18 AM MOLDED GOODS INSPECTOR TRIMMER DTL Platelet Count 183 135 - 317 x10(9)/L 11/01/2023 7:18 AM MOLDED GOODS INSPECTOR TRIMMER DTL Leukocytes 7.3 3.4 - 9.6 x10(9)/L 11/01/2023 7:18 AM MOLDED GOODS INSPECTOR TRIMMER DTL Neutrophils 4.04 1.56 - 6.45 x10(9)/L 11/01/2023 7:18 AM MOLDED GOODS INSPECTOR TRIMMER DHPM Lymphocytes 1.94 0.95 - 3.07 x10(9)/L 11/01/2023 7:18 AM MOLDED GOODS INSPECTOR TRIMMER DTL Monocytes 0.91(H) 0.26 - 0.81 x10(9)/L 11/01/2023 7:18 AM MOLDED GOODS INSPECTOR TRIMMER DTL Eosinophils 0.34 0.03 - 0.48 x10(9)/L 11/01/2023 7:18 AM MOLDED GOODS INSPECTOR TRIMMER DTL Basophils 0.03 0.01 - 0.08 x10(9)/L 11/01/2023 7:18 AM MOLDED GOODS INSPECTOR TRIMMER DTL Blood (Blood, Venous) 11/01/2023 6:35 AM MOLDED GOODS INSPECTOR TRIMMER 11/01/2023 7:04 AM MOLDED GOODS INSPECTOR TRIMMER Delilah Lopez P.A.-C., M.S. LAB BLOOD ADD- ON Performing Organization Address City/[facility] Co de Phone Number [facility] [address] [place], [place] [id number] [place] [id number] [place] [address] * (ABNORMAL) Osmolality (11/01/2023 6:35 AM MOLDED GOODS INSPECTOR TRIMMER) Pathologist [facility] Osmolality, S 265(L) 275 - 295 mOsm/kg 11/01/2023 9:40 AM MOLDED GOODS INSPECTOR TRIMMER DTL Blood (Blood, Venous) 11/01/2023 6:35 AM MOLDED GOODS INSPECTOR TRIMMER 11/01/2023 7:18 AM MOLDED GOODS INSPECTOR TRIMMER Delilah Lopez P.A.-C., M.S. LAB BLOOD ADD- ON Performing Organization Address City/[facility] Co de Phone Number [facility] [address] [place], [place] [address] [address] [place] [address] * (ABNORMAL) Dipstick, Urine (10/31/2023 12:22 PM MOLDED GOODS INSPECTOR TRIMMER) Pathologist [facility] Hemoglobin, QL Moderate(A) Negative 10/31/2023 2:05 PM MOLDED GOODS INSPECTOR TRIMMER DTL Leukocyte Esterase, U Trace(A) Negative 10/31/2023 2:05 PM MOLDED GOODS INSPECTOR TRIMMER DTL Nitrite, U Negative Negative 10/31/2023 2:05 PM MOLDED GOODS INSPECTOR TRIMMER DTL Ketones, U Negative Negative mg/dL 10/31/2023 2:05 PM MOLDED GOODS INSPECTOR TRIMMER DTL Glucose, U Negative Negative mg/dL 10/31/2023 2:05 PM MOLDED GOODS INSPECTOR TRIMMER DTL Urine 10/31/2023 12:2 2 PM MOLDED GOODS INSPECTOR TRIMMER 10/31/2023 12:49 PM MOLDED GOODS INSPECTOR TRIMMER Delilah Lopez P.A.-C. M.SCarmine LAB URINE ORDE KIZZYKATERYNA Performing Organization Address City/[facility] Co de Phone Number [facility] [address] [place] [address], [facility] DTL [facility] [address] [place] [address] * (ABNORMAL) Microscopic Automated (10/31/2023 12:22 PM MOLDED GOODS INSPECTOR TRIMMER) Microscopy Abnormal 10/31/2023 2:05 PM MOLDED GOODS INSPECTOR TRIMMER DTL RBC 51-100(A) <3 /hpf 10/31/2023 2:05 PM MOLDED GOODS INSPECTOR TRIMMER DTL Dysmorphic RBC <25 <25 % 10/31/2023 2:05 PM MOLDED GOODS INSPECTOR TRIMMER DTL WBC 1-3 /hpf 10/31/2023 2:05 PM MOLDED GOODS INSPECTOR TRIMMER DTL Comment: ----REFERENCE VALUE---- <4 ??(Males) <11 (Females) Urine 10/31/2023 12:2 2 PM MOLDED GOODS INSPECTOR TRIMMER 10/31/2023 12:49 PM MOLDED GOODS INSPECTOR TRIMMER Delilah Lopez P.A.-C., M.S. LAB URINE FRANDYE KIZZYKATERYNA Performing Organization Address [facility] Co de Phone Number [facility] [address] [place] [address], [facility] DTL [facility] [address] [place] [address] * Osmolality, Urine (10/31/2023 12:22 PM MOLDED GOODS INSPECTOR TRIMMER) Osmolality, U 367 150 - 1150 mOsm/kg 10/31/2023 2:11 PM MOLDED GOODS INSPECTOR TRIMMER DTL Urine 10/31/2023 12:2 2 PM MOLDED GOODS INSPECTOR TRIMMER 10/31/2023 12:49 PM MOLDED GOODS INSPECTOR TRIMMER Delilah Lopez P.A.-C. M.S. LAB URINE CARLOS EDUARDO AVERY Performing Organization Address City/[facility] Co de Phone Number [facility] [address] [place], [place] [id number] [place] [address] [address] [place] [address] * pH, Urine (10/31/2023 12:22 PM MOLDED GOODS INSPECTOR TRIMMER) pH, U 6.5 4.5 - 8.0 10/31/2023 2:1 1 PM MOLDED GOODS INSPECTOR TRIMMER DTL Urine 10/31/2023 12:2 2 PM MOLDED GOODS INSPECTOR TRIMMER 10/31/2023 12:49 PM MOLDED GOODS INSPECTOR TRIMMER Delilah Lopez P.A.-C. M.S. LAB URINE CARLOS EDUARDO DURANDKATERYNA Performing Organization Address [facility] de Phone Number [facility] [address] [place], [place] [phone] [place] [address] [address] [place] [address] * (ABNORMAL) Urinalysis with Microscopic: Urine, Straight Catheter (10/31/2023 12:22 PM MOLDED GOODS INSPECTOR TRIMMER) Source Urine, Urine, Straight Catheter 10/31/2023 12:49 PM MOLDED GOODS INSPECTOR TRIMMER DTL Color, U Yellow 10/31/2023 12:49 PM MOLDED GOODS INSPECTOR TRIMMER DTL Clarity, U Clear 10/31/2023 12:49 PM MOLDED GOODS INSPECTOR TRIMMER DTL Protein, U 23 <26 mg/dL 10/31/2023 1:41 PM MOLDED GOODS INSPECTOR TRIMMER DTL Protein/Osmola lity 0.63(H) <0.42 ratio 10/31/2023 2:11 PM MOLDED GOODS INSPECTOR TRIMMER DTL Predicted 24 HR Protein, U 603(H) <229 mg/24 h 10/31/2023 2:11 PM MOLDED GOODS INSPECTOR TRIMMER DTL Predicted Range 191-1901 mg/24 h 10/31/2023 2:11 PM MOLDED GOODS INSPECTOR TRIMMER DTL Urine (Urine, Straight Catheter) 10/31/2023 12:22 PM MOLDED GOODS INSPECTOR TRIMMER 10/31/2023 12:49 PM MOLDED GOODS INSPECTOR TRIMMER Delilah Lopez P.A.-C. MCarmineS. LAB URINE ORDE BENNIE [facility] [address] [place] [address], [place] DTL [facility] [address] [place] [address] * (TTE) 2D ECHO DOPPLER COLOR (10/31/2023 9:42 AM MOLDED GOODS INSPECTOR TRIMMER) Ejection Fraction 51 MC CV EIMS Wall [...] Region Laterality Modality Echocardiography 10/31/2023 7:59 AM MOLDED GOODS INSPECTOR TRIMMER Impressions 10/31/2023 10:20 AM MOLDED GOODS INSPECTOR TRIMMER Echo performed at the patient's bedside. Echocardiogram [...] the Order-Level Documents. Narrative 10/31/2023 10:20 AM MOLDED GOODS INSPECTOR TRIMMER For the complete report, see the Order-Level [...] Naveen Bell P.A.-C. CV ECHO PROCEDURES * (ABNORMAL) Troponin T, 5th Generation (10/31/2023 8:14 AM MOLDED GOODS INSPECTOR TRIMMER) [facility] Troponin T, 5th gen 21(H) <=15 ng/L 10/31/2023 8:40 AM MOLDED GOODS INSPECTOR TRIMMER STMA Blood (Blood, Venous) 10/31/2023 8:14 AM MOLDED GOODS INSPECTOR TRIMMER 10/31/2023 8:40 AM MOLDED GOODS INSPECTOR TRIMMER Naveen Bell P.A.-C. LAB BLOOD ADD-ON Performing Organization Address City/[facility]/ZIP Co de Phone Number [facility] [address] [place] [address] * Thyroid Function [place] (10/31/2023 8:14 AM MOLDED GOODS INSPECTOR TRIMMER) [facility] TSH, Sensitive 0.6 0.3 - 4.2 mIU/L 10/31/2023 10:43 AM MOLDED GOODS INSPECTOR TRIMMER DTL Blood (Blood, Venous) 10/31/2023 8:14 AM MOLDED GOODS INSPECTOR TRIMMER 10/31/2023 9:05 AM MOLDED GOODS INSPECTOR TRIMMER Naveen Bell P.A.-C. LAB BLOOD ADD-ON Performing Organization Address City/[facility]/ZIP Co de Phone Number [facility] [address] [place] [address], [facility] [place] [address] * (ABNORMAL) Hemoglobin A1c (10/31/2023 8:14 AM MOLDED GOODS INSPECTOR TRIMMER) [facility] Hemoglobin A1c, B 6.1(H) 4.0 - 5.6 % 10/31/2023 11:41 AM MOLDED GOODS INSPECTOR TRIMMER DTL Comment: Hemoglobin A1c values of 5.7-6.4 percent indicate an increased risk for developing diabetes mellitus. In diabetic patients, HbA1c goals should be discussed with healthcare provider. Blood (Blood, Venous) 10/31/2023 8:14 AM MOLDED GOODS INSPECTOR TRIMMER 10/31/2023 8:37 AM MOLDED GOODS INSPECTOR TRIMMER Narrative Authorizing Provider Result Manuel Bell P.A.-C. LAB BLOOD ADD-ON Performing Organization Address City/[facility]/ZIP Co de Phone Number [facility] [address] [place] [address] * Magnesium (10/31/2023 8:14 AM MOLDED GOODS INSPECTOR TRIMMER) Magnesium, S 2.1 1.7 - 2.3 mg/dL 10/31/2023 10:43 AM MOLDED GOODS INSPECTOR TRIMMER DTL Blood (Blood, Venous) 10/31/2023 8:14 AM MOLDED GOODS INSPECTOR TRIMMER 10/31/2023 9:05 AM MOLDED GOODS INSPECTOR TRIMMER Narrative Authorizing Provider Result Manuel Bell P.A.-C. LAB BLOOD ADD-ON Performing Organization Address [facility] Co de Phone Number [facility] [address] [place] [address], [place] [address] * (ABNORMAL) Comprehensive Metabolic Panel (10/31/2023 8:14 AM MOLDED GOODS INSPECTOR TRIMMER) Potassium, S 4.6 3.6 - 5.2 mmol/L 10/31/2023 10:43 AM MOLDED GOODS INSPECTOR TRIMMER DTL Sodium, S 130(L) 135 - 145 mmol/L 10/31/2023 10:43 AM MOLDED GOODS INSPECTOR TRIMMER DTL Chloride, S 94(L) 98 - 107 mmol/L 10/31/2023 10:43 AM MOLDED GOODS INSPECTOR TRIMMER DTL Bicarbonate, S 22 22 - 29 mmol/L 10/31/2023 10:43 AM MOLDED GOODS INSPECTOR TRIMMER DTL Anion Gap 14 7 - 15 10/31/2023 10:43 AM MOLDED GOODS INSPECTOR TRIMMER DTL BUN (Blood Urea Nitrogen), S 13 8 - 24 mg/dL 10/31/2023 10:43 AM MOLDED GOODS INSPECTOR TRIMMER DTL Creatinine 0.80 0.74 - 1.35 mg/dL 10/31/2023 10:43 AM MOLDED GOODS INSPECTOR TRIMMER DTL Estimated GFR (eGFR) 89 >=60 mL/min/BS A 10/31/2023 10:43 AM MOLDED GOODS INSPECTOR TRIMMER DTL Comment: Estimated GFR calculated using the 2020 CKD_EPI creatinine equation. Calcium, Total, S 8.7(L) 8.8 - 10.2 mg/dL 10/31/2023 10:43 AM MOLDED GOODS INSPECTOR TRIMMER DTL Glucose, S 107 70 - 140 mg/dL 10/31/2023 10:43 AM MOLDED GOODS INSPECTOR TRIMMER DTL Protein, Total, S 6.8 6.3 - 7.9 g/dL 10/31/2023 10:43 AM MOLDED GOODS INSPECTOR TRIMMER DTL Albumin, S 3.9 3.5 - 5.0 g/dL 10/31/2023 10:43 AM MOLDED GOODS INSPECTOR TRIMMER DTL Aspartate Aminotransferase (AST), S 25 8 - 48 U/L 10/31/2023 10:43 AM MOLDED GOODS INSPECTOR TRIMMER DTL Alkaline Phosphatase, S 112 40 - 129 U/L 10/31/2023 10:43 AM MOLDED GOODS INSPECTOR TRIMMER DTL Alanine Aminotransferase (ALT), S 20 7 - 55 U/L 10/31/2023 10:43 AM MOLDED GOODS INSPECTOR TRIMMER DTL Bilirubin, Total, S 0.5 0.0 - 1.2 mg/dL 10/31/2023 10:43 AM MOLDED GOODS INSPECTOR TRIMMER DTL Blood (Blood, Venous) 10/31/2023 8:14 AM MOLDED GOODS INSPECTOR TRIMMER 10/31/2023 9:05 AM MOLDED GOODS INSPECTOR TRIMMER Naveen Bell P.A.-C. LAB BLOOD ADD-ON [facility] [address] [place] [address], [facility] [address] [place] [address] * (ABNORMAL) CBC without Differential (10/31/2023 8:14 AM MOLDED GOODS INSPECTOR TRIMMER) Hemoglobin 14.0 13.2 - 16.6 g/dL 10/31/2023 10:28 AM MOLDED GOODS INSPECTOR TRIMMER DTL Hematocrit 40.5 38.3 - 48.6 % 10/31/2023 10:28 AM MOLDED GOODS INSPECTOR TRIMMER DTL Erythrocytes 4.50 4.35 - 5.65 x10(12)/L 10/31/2023 10:28 AM MOLDED GOODS INSPECTOR TRIMMER DTL MCV 90.0 78.2 - 97.9 fL 10/31/2023 10:28 AM MOLDED GOODS INSPECTOR TRIMMER DTL RBC Distrib Width 13.1 11.8 - 14.5 % 10/31/2023 10:28 AM MOLDED GOODS INSPECTOR TRIMMER DTL Platelet Count 230 135 - 317 x10(9)/L 10/31/2023 10:28 AM MOLDED GOODS INSPECTOR TRIMMER DTL Leukocytes 9.7(H) 3.4 - 9.6 x10(9)/L 10/31/2023 10:28 AM [employer] DTL Blood (Blood, Venous) 10/31/2023 8:14 AM [employer]ED [employer] INSPECT[employer]IMMER 10/31/2023 8:37 AM [employer] INSPECT[employer] TRIMMER Naveen Bell P.A.-C. 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 Urinary Chronic Kidney Disease (CKD), Stage 3a 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 documented in this encounter Admitting Diagnoses Diagnosis Bradycardia documented in this encounter Administered Medications Inactive Administered Medications - up to 3 most recent administrations Medication Order MAR Action Action Date Dose Rate Site acetaminophen tablet 1,000 mg (TYLENOL) 1,000 mg, oral, Every 6 hours PRN, mild pain or score 1-3 of 10, fever, Notify sevice prior to first administration for fever, Starting on Tue10/31/23 at 0346 Given 11/02/2023 11:06 AM [employer] 1,000 mg Given 11/02/2023 3:14 AM [employer]MER 1,000 mg Given 11/01/2023 7:43 PM M[employer] INSPECTOR TRIMMER 1,[address] tablet 81 mg 81 mg, oral, Daily, First dose on Tue10/31/23 at 0900, Swallow whole. Do NOT crush, chew, or split tablet. Given 11/02/2023 8:49 AM [employer]MER 81 mg Given 11/01/2023 9:56 AM [employer] INSPECT[employer] TRIMMER 81 mg Given 10/31/2023 10:50 AM [employer]MER 81 mg carvediloL tablet 25 mg (COREG) 25 mg, oral, 2 times daily with meals, First dose on Tue11/02/23 at 0800 Given 11/02/2023 8:49 AM [employer]MER 25 mg chlorhexidine 4 % external solution 1 Application (HIBICLENS) 1 Application, topical, 2 times daily, First dose on Tue10/31/23 at 2100, For 2 doses, Scrub chest tonight and tomorrow am - pre procedure Given 11/01/2023 9:58 AM [employer] INS[employer]MER 1 Application Given 10/31/2023 8:34 PM [employer] INS[employer]IMMER 1 Application fentaNYL injection 25 mcg (SUBLIMAZE) 25 mcg, intravenous, Every 2 hour PRN, moderate pain or score 4-6 of 10, Starting on Tue11/01/23 at 1755, Postprocedure (CV), May repeat x1 dosing interval, if patient unable to take oral analgesics or oral analgesics are ineffective fentaNYL injection 50 mcg (SUBLIMAZE) 50 mcg, intravenous, Every 2 hour PRN, severe pain or score 7-10 of 10, Starting on Tue11/01/23 at 1755, Postprocedure (CV), May repeat x1 dosing interval, if patient unable to take oral analgesics or oral analgesics are ineffective levothyroxine tablet 175 mcg (SYNTHROID, LEVOTHROID) 175 mcg, oral, Daily before breakfast, First dose on Tue10/31/23 at 0700 Given 11/02/2023 5:16 AM [employer]MER 175 mcg Given 11/01/2023 6:36 AM [employer] INS[employer]IMMER 175 mcg Given 10/31/2023 6:20 AM [employer] INS[employer]IMMER 175 mcg lisinopriL tablet 40 mg (PRINIVIL,ZESTRIL) 40 mg, oral, Daily, First dose on Tue10/31/23 at 0900 Given 11/02/2023 8:49 AM [employer]MER 40 mg Given 11/01/2023 9:56 AM [employer] INS[employer]IMMER 40 mg Given 10/31/2023 10:50 AM [employer]MER 40 mg loratadine tablet 10 mg (CLARITIN) 10 mg, oral, Daily, First dose on Tue10/31/23 at 0900, loratadine 10 mg oral daily was interchanged for cetirizine 5 mg oral twice daily Given 11/02/2023 8:49 AM [employer]MER 10 mg Given 10/31/2023 10:50 AM [employer] INS[employer]MER 10 mg montelukast tablet 10 mg (SINGULAIR) 10 mg, oral, Daily at bedtime, First dose on Tue10/31/23 at 2100 Given 11/01/2023 8:04 PM [employer]MER 10 mg Given 10/31/2023 8:31 PM [employer] INS[employer]IMMER 10 mg lcucjbukeftu-lvio-DT-Ca-minerals 400 mcg (folic acid) tablet 1 tablet (THERAPEUTIC-M) 1 tablet, oral, Daily, First dose on Tue10/31/23 at 0900 Given 11/02/2023 8:49 AM [employer] INS[employer]MER 1 tablet Given 11/01/2023 9:56 AM [employer] INSPECTOR TRIMMER 1 tablet Given 10/31/2023 10:50 AM [employer] INS[employer] TRIMMER 1 tablet mupirocin 2 % ointment 1 Application (BACTROBAN) 1 Application, each nostril, 2 times daily, First dose on Tue10/31/23 at 2100, For 2 doses Given 11/01/2023 9:56 AM [employer]MER 1 Application Given 10/31/2023 8:31 PM [employer] INS[employer]IMMER 1 Application nitrofurantoin monohydrate capsule 100 mg (MACROBID) 100 mg, oral, 2 times daily, First dose on Tue10/31/23 at 0900, For 4 days, Drug Monitoring Program: Pharmacist to adjust medication dosing based on indication and drug clearance factors., Indications: Lower UTI, Non-Catheter Given 11/02/2023 8:49 AM [employer]MER 100 mg Given 11/01/2023 8:04 PM [employer] INS[employer] TRIMMER 100 mg Given 11/01/2023 9:56 AM [employer] INS[employer]MER 100 mg rosuvastatin tablet 40 mg (CRESTOR) 40 mg, oral, Daily, First dose on Tue10/31/23 at 0900 Given 11/02/2023 8:49 AM [employer] INS[employer]IMMER 40 mg Given 11/01/2023 9:56 AM [employer] INS[employer]IMMER 40 mg Given 10/31/2023 10:50 AM [employer] INS[employer] TRIMMER 40 mg sodium chloride 0.9 % injection 3 mL 3 mL, intravenous, Every 12 hours scheduled, First dose on Tue10/31/23 at 0900, Peripheral Intravenous Catheter and Rapid Infusion Catheter, when no infusion to maintain patency Given 11/02/2023 8: 49 AM [employer] INS[employer]IMMER 3 mL Given 11/01/2023 8:06 PM [employer] INSPECTOR TRIMMER 3 mL Given 11/01/2023 9:57 AM [employer] INS[employer]OR TRIMMER 3 mL tamsulosin 24 hr capsule 0.4 mg (FLOMAX) 0.4 mg, oral, Daily at bedtime, First dose on Tue10/31/23 at 2100, Swallow whole. Do NOT crush, chew or open capsule. Given 11/01/2023 8:04 PM [employer]MER 0.4 mg Given 10/31/2023 8:31 PM [employer]IMMER 0.4 mg documented in this encounter Active and Recently Administered Medications Times are shown in [employer]. Scheduled Medication Order 10/31/2023 11/01/2023 11/02/[address] tablet 81 mg 81 mg, oral, Daily, First dose on Tue10/31/23 at 0900, Swallow whole. Do NOT crush, chew, or split tablet. 1050 (Given - Provider: Viviane Maldonado R.N.) 0956 (Given - Provider: Viviane Maldonado R.N.)1444 (JAN Hold - Provider: Transfer Provider, Automatic - Reason: Patient not available)1748 (JAN Unhold - Provider: Transfer Provider, Automatic) 0849 (Given - Provider: Elsa Rome R.N.) carvediloL tablet 25 mg (COREG) 25 mg, oral, 2 times daily with meals, First dose on Tue11/02/23 at 0800 0849 (Given - Provider: Elsa Rome R.N.) chlorhexidine 4 % external solution 1 Application (HIBICLENS) (COMPLETED) 1 Application, topical, 2 times daily, First dose on Tue10/31/23 at 2100, For 2 doses, Scrub chest tonight and tomorrow am - pre procedure 2033 (Given - Provider: Octavio MejiaNCarmine) 0958 (Given - Provider: Viviane Maldonado R.N.) levothyroxine tablet 175 mcg (SYNTHROID, LEVOTHROID) 175 mcg, oral, Daily before breakfast, First dose on Tue10/31/23 at 0700 0620 (Given - Provider: Criselda Lindquist R.N.) 0636 (Given - Provider: Elisabeth Collins RCarmineNCarmine)1444 (JAN Hold - Provider: Transfer Provider, Automatic - Reason: Patient not available)1748 (JAN [place] - Provider: Transfer Provider, Automatic) 0516 (Given - Provider: Heather Montemayor R.N.) lisinopriL tablet 40 mg (PRINIVIL,ZESTRIL) 40 mg, oral, Daily, First dose on Tue10/31/23 at 0900 1050 (Given - Provider: Viviane Maldonado RCarmineN.) 0956 (Given - Provider: Octavio LeviN.)1444 (JAN Hold - Provider: Transfer Provider, Automatic - Reason: Patient not available)1748 (JAN [place] - Provider: Transfer Provider, Automatic) 0849 (Given - Provider: Elsa Rome RCamrineN.) loratadine tablet 10 mg (CLARITIN) 10 mg, oral, Daily, First dose on Tue10/31/23 at 0900, loratadine 10 mg oral daily was interchanged for cetirizine 5 mg oral twice daily 1050 (Given - Provider: Viviane Maldonado RCarmineN.) 0958 (Not Given - Provider: Viviane Maldonado R.N. - Reason: Patient/family refused)1444 ([facility] Hold - Provider: Transfer Provider, Automatic - Reason: Patient not available)1748 ([facility] Unhold - Provider: Transfer Provider, Automatic) 0849 (Given - Provider: Elsa Rome RCarmineNCarmine) montelukast tablet 10 mg (SINGULAIR) 10 mg, oral, Daily at bedtime, First dose on Tue10/31/23 at 2100 2031 (Given - Provider: Radha Bassett RCarmineN.) 1444 (JAN Hold - Provider: Transfer Provider, Automatic - Reason: Patient not available)1748 (JAN [place] - Provider: Transfer Provider, Automatic)2004 (Given - Provider: Heather Montemayor R.N.) xizalaxbolcl-nack-LA-Ca -minerals 400 mcg (folic acid) tablet 1 tablet (THERAPEUTIC-M) 1 tablet, oral, Daily, First dose on Tue10/31/23 at 0900 1050 (Given - Provider: Viviane Madlonado RCarmineN.) 0956 (Given - Provider: Chang Levi.N.)144 (JAN Hold - Provider: Transfer Provider, Automatic - Reason: Patient not available)174 (JAN [place] - Provider: Transfer Provider, Automatic) 0849 (Given - Provider: Elsa Rome RJackson) mupirocin 2 % ointment 1 Application (BACTROBAN) (COMPLETED) 1 Application, each nostril, 2 times daily, First dose on Tue10/31/23 at 2100, For 2 doses 2030 (Given - Provider: Radha Bassett R.N.) 0956 (Given - Provider: Octavio LeviN.) nitrofurantoin monohydrate capsule 100 mg (MACROBID) 100 mg, oral, 2 times daily, First dose on Tue10/31/23 at 0900, For 4 days, Drug Monitoring Program: Pharmacist to adjust medication dosing based on indication and drug clearance factors., Indications: Lower UTI, Non-Catheter 1050 (Given - Provider: Viviane Maldonado R.N.)2030 (Given - Provider: Radha Bassett R.N.) 0956 (Given - Provider: Viviane Maldonado R.N.)1444 (JAN Hold - Provider: Transfer Provider, Automatic - Reason: Patient not available)174 (JAN [place] - Provider: Transfer Provider, Automatic)2003 (Given - Provider: Heather Montemayor RCarmineN.) 0849 (Given - Provider: Elsa Rome RCarmineNCarmine) rosuvastatin tablet 40 mg (CRESTOR) 40 mg, oral, Daily, First dose on Tue10/31/23 at 0900 1050 (Given - Provider: Viviane Maldonado RCarmineN.) 0956 (Given - Provider: Viviane Maldonado R.N.)144 (JAN Hold - Provider: Transfer Provider, Automatic - Reason: Patient not available)1748 (JAN [place] - Provider: Transfer Provider, Automatic) 0849 (Given - Provider: Elsa Rome RCarmineNCarmine) sodium chloride 0.9 % injection 3 mL 3 mL, intravenous, Every 12 hours scheduled, First dose on Tue10/31/23 at 0900, Peripheral Intravenous Catheter and Rapid Infusion Catheter, when no infusion to maintain patency 1050 (Given - Provider: Viviane Maldonado RCarmineNCarmine)2033 (Given - Provider: Radha Bassett R.N.) 0957 (Given - Provider: Octavio LeviNCarmine)1444 ([facility] Hold - Provider: Transfer Provider, Automatic - Reason: Patient not available)174 ([facility] Unhold - Provider: Transfer Provider, Automatic)2005 (Given - Provider: Heather Montemayor RCarmineNCarmine) 0849 (Given - Provider: Elsa Rome R.N.) tamsulosin 24 hr capsule 0.4 mg (FLOMAX) 0.4 mg, oral, Daily at bedtime, First dose on Tue10/31/23 at 2100, Swallow whole. Do NOT crush, chew or open capsule. 2030 (Given - Provider: Radha Bassett R.N.) 1444 ([facility] Hold - Provider: Transfer Provider, Automatic - Reason: Patient not available)174 ([facility] Unhold - Provider: Transfer Provider, Automatic)2003 (Given - Provider: Heather Montemayor RCarmineNCarmine) PRN Medication Order 10/31/2023 11/01/2023 11/02/2023 acetaminophen tablet 1,000 mg (TYLENOL) 1,000 mg, oral, Every 6 hours PRN, mild pain or score 1-3 of 10, fever, Notify sevice prior to first administration for fever, Starting on Tue10/31/23 at 0346 0006 (Given - Provider: Elisabeth Collins RJackson)1444 ([facility] Hold - Provider: Transfer Provider, Automatic - Reason: Patient not available)174 ([facility] Unhold - Provider: Transfer Provider, Automatic)194 (Given - Provider: Heather Montemayor R.N.) 031 (Given - Provider: Heather Montemayor RCarmineNCarmine)1106 (Given - Provider: Elsa Rome R.N.) albuterol nebulizer solution 2.5 mg 2.5 mg, nebulization, Daily PRN, wheezing, shortness of breath, Starting on Tue10/31/23 at 0340, Albuterol nebs were interchanged for albuterol/levalbuterol MDI (same frequency) 1444 ([facility] Hold - Provider: Transfer Provider, Automatic - Reason: Patient not available)1748 ([facility] Unhold - Provider: Transfer Provider, Automatic) bisacodyL DR tablet 10 mg (DULCOLAX) 10 mg, oral, Daily PRN, constipation, Starting on Tue10/31/23 at 0345, PO route preferred. Constipation unrelieved by docusate sodium (COLACE) if ordered. If results needed within 2 hours give rectal suppository if ordered. Swallow whole. Do NOT crush, chew, or split tablet. 1444 ([facility] Hold - Provider: Transfer Provider, Automatic - Reason: Patient not available)1748 ([facility] Unhold - Provider: Transfer Provider, Automatic) bisacodyL suppository 10 mg (DULCOLAX) 10 mg, rectal, Daily PRN, constipation, Starting on Tue10/31/23 at 0345, PO route preferred. Constipation unrelieved by docusate sodium (COLACE) if ordered. If results needed within 2 hours - give rectal suppository. 1444 ([facility] Hold - Provider: Transfer Provider, Automatic - Reason: Patient not available)1748 ([facility] Unhold - Provider: Transfer Provider, Automatic) calcium carbonate chewable tablet 400 mg of calcium (TUMS) 400 mg of calcium, oral, Every 2 hour PRN, indigestion, Not to exceed 12 tablets in 24 hours, Starting on Tue10/31/23 at 0345, Doses listed are in mg of elemental calcium. Take with food. 500 mg calcium carbonate contains 200 mg of elemental calcium. 1444 ([facility] Hold - Provider: Transfer Provider, Automatic - Reason: Patient not available)1748 ([facility] Unhold - Provider: Transfer Provider, Automatic) fentaNYL injection 25 mcg (SUBLIMAZE)(Linked Group 1) 25 mcg, intravenous, Every 2 hour PRN, moderate pain or score 4-6 of 10, Starting on Tue11/01/23 at 1755, Postprocedure (CV), May repeat x1 dosing interval, if patient unable to take oral analgesics or oral analgesics are ineffective fentaNYL injection 50 mcg (SUBLIMAZE)(Linked Group 1) 50 mcg, intravenous, Every 2 hour PRN, severe pain or score 7-10 of 10, Starting on Tue11/01/23 at 1755, Postprocedure (CV), May repeat x1 dosing interval, if patient unable to take oral analgesics or oral analgesics are ineffective fluticasone furoate-vilanteroL 100-25 mcg/actuation inhaler 1 puff (BREO ELLIPTA DISKUS) 1 puff, inhalation, Daily PRN, SOB/wheezing, Starting on Tue10/31/23 at 0340, fluticasone/vilanterol diskus 100/25 mcg was interchanged for fluticasone/salmeterol MDI 45/21 mcg 1. Hold device upright in right hand with rough edge. 2. Using left hand open lid (toward left) until click is heard. 3. Tilt inhaler flat so air entrainment vents & counter face up. 4. Inhale to full breath somewhat fast. 5. Hold breath up to 10 seconds. 6. Remove inhaler from mouth. 7. Close lid. 1444 (JAN Hold - Provider: Transfer Provider, Automatic - Reason: Patient not available)1748 (JAN Unhold - Provider: Transfer Provider, Automatic) lidocaine 10 mg/mL (1 %) injection (XYLOCAINE) (CANCELED) Code/trauma/sedation medication, Starting on Tue11/01/23 at 1619, Intraprocedure (CV) 1619 (Given - Provider: Gilbert Goss M.D.)1622 (Given - Provider: Gilbert Goss M.D.) naloxone injection 0.2 mg (NARCAN) 0.2 mg, intravenous, As needed, respiratory depression, Starting on Tue11/01/23 at 1755, Postprocedure (CV), For RASS Score -4 or less, respiratory rate of less than 8 breaths/min. Notify provider/service and rapid response team (if available at institution). sodium chloride 0.9 % injection 10 mL 10 mL, intravenous, As needed, line care, Starting on Tue10/31/23 at 0343, Peripheral Intravenous Catheter and Rapid Infusion Catheter, prior to blood sampling, post blood transfusion or post blood sampling 1444 (JAN Hold - Provider: Transfer Provider, Automatic - Reason: Patient not available)1748 (JAN Unhold - Provider: Transfer Provider, Automatic) sodium chloride 0.9 % injection 3 mL 3 mL, intravenous, As needed, line care, Starting on Tue10/31/23 at 0343, Prior to and following infusion and between multiple consecutive infusions: sodium chloride 0.9 % injection 1444 (JAN Hold - Provider: Transfer Provider, Automatic - Reason: Patient not available)1748 (JAN Unhold - Provider: Transfer Provider, Automatic) Linked Groups Order Group 1: fentaNYL injection 25 mcg (SUBLIMAZE)Jump to med 25 mcg, intravenous, Every 2 hour PRN, moderate pain or score 4-6 of 10, Starting on Tue11/01/23 at 1755, Postprocedure (CV), May repeat x1 dosing interval, if patient unable to take oral analgesics or oral analgesics are ineffective Or fentaNYL injection 50 mcg (SUBLIMAZE)Jump to med 50 mcg, intravenous, Every 2 hour PRN, severe pain or score 7-10 of 10, Starting on Tue11/01/23 at 1755, Postprocedure (CV), May repeat x1 dosing interval, if patient unable to take oral analgesics or oral analgesics are ineffective documented in this encounter Care Teams Senior Windows Administrator Relationship Specialty Start Date End Date Elsewhere, Pcp PCP - General Family Medicine 10/25/18 documented as of this encounter
--- OUTSIDE RECORDS SUMMARY | 2023-12-09 00:08 | XMS_ITS | Encounter Summary ---
Author Name Unknown Organization [facility] Address [address] [place] [address] Care Team Providers Care Ultrasonic Seaming Machine Operator Name Role Phone Elsewhere, Pcp Primary Care Provider Unavailabl e Encounter Details Date Type Department Care Team (Late st Contact Info) Description 11/01/2023 4:34 PM CATTLE MANAGER - 11/01/2023 7:04 PM CATTLE MANAGER Surgery Division of Cardiovascular Diseases in [place], [place] [address] [place] [address] Kg Holguin M.D. [address] [place] [address] PPM IMPLANT - DUAL CHAMBER Social History Tobacco Use Types Packs/Day Years [...] re latives? Once a week 05/31/2020 Attends [employer] Not on file 05/31 Active Member [...] Answer Date Recorded PHQ-2 Score 0 10/27/2023 [facility] - Occupational [...] your living situation today? I have a [facility] place to live 10/31/2023 Education Answer Date [...] Sign Reading Time Taken Comments Blood Pressure 140/76 11/01/2023 5:53 PM CATTLE MANAGER Pulse 51 10/31/2023 2:50 AM CATTLE MANAGER Temperature 36.3 ??C (97.3 ??F) 11/01/2023 5:53 PM CS T Respiratory Rate 18 11/01/2023 6:45 PM CATTLE MANAGER Oxygen Saturation 95% 11/01/2023 7:00 PM CATTLE MANAGER Inhaled Oxygen Concentration - - Weight 76.2 kg (167 lb 15.9 oz) 11/01/2023 6:39 AM CATTLE MANAGER Height 175.3 cm (5' 9) 10/31/2023 3:53 AM CATTLE MANAGER Body Mass Index 24.68 10/31/2023 3:53 AM CATTLE MANAGER documented in this encounter Discharge Summaries * Cain Holguin P.A.-C. - 11/02/2023 11:36 AM CST Images from the original note were not included. CARDIOLOGY HOSPITAL DISCHARGE SUMMARY DATE OF ADMISSION: 10/31/2023 DATE OF DISCHARGE: 11/02/2023 Discharge Provider: Ben Mittal M.D., Ph.D. Discharge Provider Team: [facility] 3 PRINCIPAL DIAGNOSIS Bradycardia DISMISSAL DIAGNOSES [...] Endocrinology 05/02/2024 4:00 AM [facility] DEVICE [facility] Cardiovascular Disease For appointment details refer to your Patient Appointment Guide. HOSPITAL COURSE Admission Weight: 76.5 kg Dismissal Weight: 75.8 kg BMI: Body mass index is 24.68 kg/m??. Mr. Khanna is a 78 year old male who presented to local emergency department for evaluation of shortness of breath. He was admitted to the [facility] CVD Admit/Triage Hospital service. He has medical [...] mg of IV furosemide and transferred to [facility] for further evaluation. Upon arrival to [...] independent from other providers on our team. LE MANAGER documented in this encounter Discharge Instructions * Discharge Instructions* Hugh Chisholm, R.N. - 10/31/2023 7:04 AM CATTLE MANAGER You were discharged from the [facility] 3 Service. Please identify this service [...] (usually 3-4 weeks). Pain: You may use uasq-rpx-iuqgqed Extra Strength Tylenol (acetaminophen) 500 mg tablets, [...] us to request this transfer at or [phone]. Remote Transmitter: You will be provided with [...] receipt of this transmission by calling the [facility] at or [phone]. Please contact your device company with concerns or issues regarding your home transmitter. [employer] [phone] ALWAYS call 911 in the event of an emergency. LE MANAGER documented in this encounter Medications at Time [...] any questions, and all questions were answered. LE MANAGER * Delilah Lopez P.A.-C., M.S. - 11/01/2023 [...] mild to moderate and tricuspid regurgitation for kykv-ty-csiaapld. This will require surveillance going forward, does [...] CXR and ECG post procedure. NPO at [place] for device interrogation tomorrow AM. -- carvedilol [...] rosuvastatin 40 mg daily -- continue remainder ACCOUNT DEVELOPMENT REPRESENTATIVE medications including levothyroxine was 85 mcg daily, [...] 50 minutes providing and coordinating care today. LE MANAGER * Ben Mittal M.D., Ph.D. - 11/01/2023 6:43 AM CST This is a collaborative note with Ms. Delilah Lopez, PAC and the Cardiology 3 team. I independently [...] the setting of an ischemic c ardiomyopathy, kvqf-ls-uchkmmsb and TR, hypertension, hyperlipidemia and a history [...] the setting of an ischemic cardiomyopathy #4 Wfhl-bc-ijgkqbli #5 Yedj-sh-hifqfjwr TR #6 Hypertension #7 Hyperlipidemia PLAN: - NPO this morning. As Mr. Khanna's white blood cell count has downtrended (9.7 --> 7.3; no neutrophilia) we will plan on proceeding with implantation of a left-sided dual-chamber PPM today. To this end, I reviewed the risks, including but not limited to vascular damage/myocardial perforation during the procedure itself and potentially requiring additional procedures, stroke, NH, , deviceinfection and device malfunction, and benefits [...] excellent documentation of the Cardiology 3 team. LE MANAGER * Teresa Sims, Pharm.D., R.Ph. 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 Teresa Sims, PharmCarmineD., R.Ph. LE MANAGER documented in this encounter H&P Notes * [...] s/p PCI/SANTIAGO to the mid- LAD in 2015 complicated by residual heart failure with mid-range ejection fraction (most recent LVEF of 40%-45%) in the setting of an ischemic c ardiomyopathy, efgb-xg-bkctilon and TR, hypertension, hyperlipidemia and a history [...] STEMI s/p PCI/SANTIAGO to the mid-LAD in 2015 complicated by residual heart failure with mid-range ejection fraction (most recent LVEF of 40%-45%) in the setting of an ischemic cardiomyopathy #4 Ogio-oz-imojzvtq #5 Lize-wk-ygbozlsx TR #6 Hypertension #7 Hyperlipidemia PLAN: - [...] either a dual-chamber conduction system PPM or LOGGING EQUIPMENT OPERATOR system to address his high-grade AV block/infra- Hisian disease. He understands that due to volume/demand this may well get delayed until tomorrow given his clinical stability but we will do everything we can to assure this is accomplished in an expedited manner. - Remainder per the excellent documentation of STACIE Montoya and the Cardiology 3 team. LE MANAGER * Naveen Bell P.A.-C. - 10/31/2023 1:47 AM CST Images from the original note were not included. CARDIOLOGY INPATIENT ADMISSION NOTE CHIEF COMPLAINT/REASON FOR VISIT Shortness of breath Collaborating physician: Beau Grubbs M.D. Admitting service: [facility] CVD Admit/Triage Hospital HISTORY OF PRESENT ILLNESS Mr. Khanna is a 78 y.o. male who presented to local emergency department for evaluation of shortness of breath. He is being admitted to the [facility] CVD Admit/Triage Hospital service. He has medical [...] mg of IV furosemide and transferred to [facility] for further evaluation. Upon arrival to [...] adverse reaction to iodinated contrast given at [facility] in 2006. Visi [address] scan on 12/12/13. No reaction noted. Penicillin Itching Pneumococcal Vaccine Headache Headache and body ache Shellfish Containing Products GI intolerance Nausea & Vomiting [place] Pollen Itching Seasonal Allergies: Allergic Rhinitis, Itchy [...] fraction challenging due to ectopy with significant jgyn-yj-enfa variability. 3. Regional wall motion abnormalities were [...] would likely benefit from permanent pacemaker or LOGGING EQUIPMENT OPERATOR-D pending TTE results. Patient is currently hemodynamically stable and asymptomatic at rest. His heart rate did improve into the high 50s/low 60s when walking around his room. Patient will be made NPO until staffed with business objects consultant in the morning. We will hold [...] and valve disease NPO until staffed with business objects consultant, patient would likely benefit from pacing [...] 90 minutes providing and coordinating care today. LE MANAGER documented in this encounter Procedure Notes * [...] morning 3. Device interrogation in the morning. LE MANAGER documented in this encounter Consult Notes * Gabbi Canales R.N. 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 #9 Chronic Kidney Disease (CKD), Stage 3a Glomerular Filtration Rate (GFR) 45 To 59 (HCC) #10 Bradycardia Social History Marital Status: Finance/Insurance Primary insurance: MEDICARE A AND B Secondary insurance: [employer] benefits: No Advance Directives Legal Decision Maker: Self OBJECTIVE Baseline Functional Status Baseline Activities of Daily Living Mobility: Independent Dressing: Independent Feeding: Independent Bathing: Independent Grooming: Independent Toileting: Independent Behavior: Appropriate, Pleasant, Cooperative, Calm, Oriented Communication: Can write, Talks, Understands speaking, Understands Polish, Reads Shopping: Independent Medication Management: Independent Housekeeping: [...] Self Care ASSESSMENT / PLAN Assessment: The taffy puller met with Levi Khanna to discuss his current hospitalization and home going needs. The patient was accompanied by his son . The patient was a reliable historian. The role of taffy puller was reviewed. The patient reviewed his prior level of care and support system. The patient receives support from his . The patient described his living environment as a multiple level home with stairs to enter with rails. Housekeeping, grocery shopping, meal prep, and other household responsibilities have previously been completed by patient. taffy puller discussed the patient's potential needs at dismissal [...] shared that he lives with his in [place], [place] where he is independent with ADL/IADL needs and feels safe and supported to return home when medically ready to discharge. His family will provide transportation. At this time, the care team has not identified any skilled post-hospital discharge care needs that require the assistance of the Care Management Team. After reviewing the patient's chart and meeting with the patient, the taffy puller deemed the LACE+/readmission questions were not necessary. The patient reports understanding that he will dismiss from the hospital when medically stable. Pending hospital course and medical readiness, no barriers to dismissal have been identified at this time. Plan: The patient agrees with the following plan. Patient's anticipated discharge disposition is: Home to Self Care Transportation upon dismissal will be provided by family--son . taffy puller recommended nothing at this time. taffy puller provided information regarding the dismissal process. taffy puller placed or requested the following hospital-based consult orders and/or referrals: None. taffy puller will continue to assess for homegoing needs with the interdisciplinary team. taffy puller encouraged the patient to reach out with any questions/concerns. Signed by: Gabbi Canales R.N. 10/31/2023 LE MANAGER documented in this encounter Nursing Notes * [...] by: Elsa Rome R.N. 11/02/23 12:47 PM CATTLE MANAGER LE MANAGER documented in this encounter Miscellaneous Notes * Hospital Course - Cain Holguin P.A.-C. - 10/31/2023 1:52 AM CST Mr. Khanna is a 78 year old male who presented to local emergency department for evaluation of shortness of breath. He was admitted to the [facility] CVD Admit/Triage Hospital service. He has medical [...] mg of IV furosemide and transferred to [facility] for further evaluation. Upon arrival to [...] 11/02/2023 in stable condition with his family. LE MANAGER documented in this encounter Plan of Treatment Upcoming Encounters Date Type Department Care Team (Late st Contact Info) Description 12/13/2023 8:50 AM CATTLE MANAGER Appointment Department of Laboratory Medicine and Pathology, [facility] in [place], [place] [address] [place] [phone] Natasha Mullins APRN, C.N.P., M.S., M.S.N. [address] [place] [phone] 12/13/2023 11:00 AM CATTLE MANAGER Office Visit Department of Cardiovascular Medicine in [place], [place] [address] [place] [phone] Natasha Mullins APRN, C.N.P., M.S., M.S.N. [address] [place] [phone] 02/02/2024 9:15 AM CDT Appointment Department of Cardiovascular Diseases in [place], [place] [address] [place] [address] Fazal Reynoso M.D. [address] [place] [address] documented as of this encounter Procedures Procedure Name Priority Date/Time Associated Diagnosis Comments CAR CARDIAC DEVICE INTERROGATION Routine 11/02/2023 10:11 AM CATTLE MANAGER CBC WITHOUT DIFFERENTIAL, B Routine 11/02/2023 9:39 AM CATTLE MANAGER BASIC METABOLIC PANEL, S/P Routine 11/02/2023 9:39 AM CATTLE MANAGER ECG Routine 11/02/2023 4:42 AM CATTLE MANAGER DX CHEST AP OR PA AND LATERAL 2 VIEWS RAD - Routine (most inpatients and all outpatients) 11/01/2023 9:18 PM CATTLE MANAGER ADULT OXYGEN THERAPY Routine 11/01/2023 5:55 PM CATTLE MANAGER ADULT OXYGEN THERAPY Routine 11/01/2023 5:55 PM CATTLE MANAGER HEART RHYTHM PROCEDURE Routine 11/01/2023 5:12 PM CATTLE MANAGER Block Atrioventricular Second Degree CAR CARDIAC DEVICE INTERROGATION Routine 11/01/2023 4:07 PM CATTLE MANAGER SODIUM, RANDOM, U Routine 11/01/2023 10:44 AM CATTLE MANAGER OSMOLALITY, U Routine 11/01/2023 10:44 AM CATTLE MANAGER ADULT OXYGEN THERAPY Routine 11/01/2023 8:01 AM CATTLE MANAGER CBC WITH DIFFERENTIAL, B Routine 11/01/2023 6:35 AM CATTLE MANAGER OSMOLALITY, S Routine 11/01/2023 6:35 AM CATTLE MANAGER MAGNESIUM, S Routine 11/01/2023 6:35 AM CATTLE MANAGER BASIC METABOLIC PANEL, S/P Routine 11/01/2023 6:35 AM CATTLE MANAGER ADULT OXYGEN THERAPY Routine 10/31/2023 8:01 PM CATTLE MANAGER DIPSTICK, U Routine 10/31/2023 12:22 PM CATTLE MANAGER MICROSCOPIC AUTOMATED Routine 10/31/2023 12:22 PM CATTLE MANAGER PH, U Routine 10/31/2023 12:22 PM CATTLE MANAGER OSMOLALITY, U Routine 10/31/2023 12:22 PM CATTLE MANAGER URINALYSIS WITH MICROSCOPIC Routine 10/31/2023 12:22 PM CATTLE MANAGER (TTE) 2D ECHO DOPPLER COLOR Routine 10/31/2023 9:42 AM CATTLE MANAGER THYROID FUNCTION CASCADE, S Routine 10/31/2023 8:14 AM CATTLE MANAGER CBC WITHOUT DIFFERENTIAL, B Routine 10/31/2023 8:14 AM CATTLE MANAGER TROPONIN T, 5TH GEN, P Routine 10/31/2023 8:14 AM CATTLE MANAGER MAGNESIUM, S Routine 10/31/2023 8:14 AM CATTLE MANAGER HEMOGLOBIN A1C, B Routine 10/31/2023 8:14 AM CATTLE MANAGER COMPREHENSIVE METABOLIC PANEL, S/P Routine 10/31/2023 8:14 AM CATTLE MANAGER ADULT OXYGEN THERAPY Routine 10/31/2023 8:01 AM CATTLE MANAGER ADULT OXYGEN THERAPY Routine 10/31/2023 3:46 AM CATTLE MANAGER ADULT OXYGEN THERAPY Routine 10/31/2023 3:46 AM CATTLE MANAGER documented in this encounter Results * CARDIOVASCULAR IMPLANTABLE ELECTRONIC DEVICE - NO CHARGE (11/02/2023 10:11 AM CATTLE MANAGER) Date Time Interrogation Session [id number] [facility] Implantable Pulse Generator Career Portals Teacher [employer] [facility] Implantable Pulse Generator Model [id number] [place] [facility] Implantable Pulse Generator Serial Number [id number] [facility] Type Interrogation Session In Clinic [facility] Clinic Name [facility] [place] [facility] Implantable Pulse Generator Type Pacemaker [facility] Implantable Pulse Generator Implant Date [id number] [facility] Implantable Lead Career Portals Teacher Medtronic [facility] Implantable Lead Model 4076 CapsureFix Novus MRI SureScan [facility] Implantable Lead Serial Number [id number] [facility] Implantable Lead Implant Date 20231101 [facility] Implantable Lead Polarity Type Bipolar Lead [facility] Implantable Lead Location Detail 1 UNKNOWN [facility] Implantable Lead Special Function Lead length: 52 cm [facility] Implantable Lead Location Right Atrium [facility] Implantable Lead Career Portals Teacher Medtronic [facility] Implantable Lead Model 4076 CapsureFix Novus MRI SureScan [facility] Implantable Lead Serial Number [id number] [facility] Implantable Lead Implant Date 20231101 [facility] Implantable Lead Polarity Type Bipolar Lead [facility] Implantable Lead Location Detail 1 UNKNOWN [facility] Implantable Lead Special Function Lead length: 58 cm [facility] Implantable Lead Location Right Ventricle [facility] Сергей Setting Mode (NBG Code) DDD [facility] Сергей Setting Lower Rate Limit 60 {beats}/ min [facility] Есргей Setting Maximum Tracking Rate 120 {beats}/ min [facility] Сергей Setting Maximum Sensor Rate 120 {beats}/ min [facility] Сергей Setting KATHY Delay Low 150 ms [facility] Сергей Setting PAV Delay Low 180 ms [facility] Сергей Setting AT Mode Switch Rate 171 {beats}/ min [facility] Сергей Setting AT Mode Switch Mode DDIR [facility] Lead Channel Setting Sensing Polarity Bipolar [facility] Lead Channel Setting Sensing Anode Location Right Atrium [facility] Lead Channel Setting Sensing Anode Terminal Ring [facility] Lead Channel Setting Sensing Cathode Location Right Atrium [facility] Lead Channel Setting Sensing Cathode Terminal Tip [facility] Lead Channel Setting Sensing Sensitivity 0.3 mV [facility] Lead Channel Setting Sensing Polarity Bipolar [facility] Lead Channel Setting Sensing Anode Location Right Ventricle [facility] Lead Channel Setting Sensing Anode Terminal Ring [facility] Lead Channel Setting Sensing Cathode Location Right Ventricle [facility] Lead Channel Setting Sensing Cathode Terminal Tip [facility] Lead Channel Setting Sensing Sensitivity 0.9 mV [facility] Lead Channel Setting Pacing Polarity Bipolar [facility] Lead Channel Setting Pacing Anode Location Right Atrium [facility] Lead Channel Setting Pacing Anode Terminal Ring [facility] Lead Channel Setting Sensing Cathode Location Right Atrium [facility] Lead Channel Setting Sensing Cathode Terminal Tip [facility] Lead Channel Setting Pacing Pulse Width 0.4 ms [facility] Lead Channel Setting Pacing Amplitude 3.5 V [facility] Lead Channel Setting Pacing Capture Mode Adaptive [facility] Lead Channel Setting Pacing Polarity Bipolar [facility] Lead Channel Setting Pacing Anode Location Right Ventricle [facility] Lead Channel Setting Pacing Anode Terminal Ring [facility] Lead Channel Setting Sensing Cathode Location Right Ventricle [facility] Lead Channel Setting Sensing Cathode Terminal Tip [facility] Lead Channel Setting Pacing Pulse Width 0.4 ms [facility] Lead Channel Setting Pacing Amplitude 3.5 V [facility] Lead Channel Setting Pacing Capture Mode Adaptive [facility] Zone Setting Type Category VF [facility] Zone Setting Type Category VT [facility] Zone Setting Type Category VT [facility] Zone Setting Type Category VT [facility] Zone Setting Detection Interval 360 ms [facility] Zone Setting Type Category ATRIAL_FIBRILLATI ON [facility] Zone Setting Type Category AT/AF [facility] Zone Setting Detection Interval 350 ms [facility] Lead Channel Impedance Value 589 ohm [facility] Lead Channel Impedance Value 532 ohm [facility] Lead Channel Sensing Intrinsic Amplitude 6.125 mV [facility] Lead Channel Sensing Intrinsic Amplitude 5.75 mV [facility] Lead Channel Pacing Threshold Amplitude 0.25 V [facility] Lead Channel Pacing Threshold Pulse Width 0.4 ms [facility] Lead Channel Impedance Value 589 ohm [facility] Lead Channel Impedance Value 475 ohm [facility] Lead Channel Sensing Intrinsic Amplitude 9.875 mV [facility] Lead Channel Sensing Intrinsic Amplitude 7.375 mV [facility] Lead Channel Pacing Threshold Amplitude 0.5 V [facility] Lead Channel Pacing Threshold Pulse Width 0.4 ms [facility] Battery Date Time of Measurements [facility] Battery Status Beginning of Service [facility] Battery WOOD TANK BUILDER Trigger 2.625 [facility] Battery Voltage 3.19 V [facility] Сергей Statistic Date Time Start [id number] [facility] Сергей Statistic Date Time End [id number] [facility] Сергей Statistic RA Percent Paced 6.8 % [facility] Сергей Statistic RV Percent Paced 95.31 % [facility] Сергей Statistic AP STULL HEWER Percent 5.62 % [facility] Сергей Statistic STULL HEWER Percent 89.69 % [facility] Сергей Statistic AP VS Percent 0.07 % [facility] Сергей Statistic VS Percent 4.63 % [facility] Atrial Tachy Statistic Date Time Start [id number] [facility] Atrial Tachy Statistic Date Time End [id number] [facility] Atrial Tachy Statistic AT/AF [place] Percent 0 % [facility] Episode [...] SYSTEM Episode Statistic Recent Date Time Start [id number] [facility] Episode Statistic Recent Date Time End [id number] [facility] Episode Statistic Recent Date Time Start [id number] [facility] Episode Statistic Recent Date Time End [id number] [facility] Episode Statistic Recent Date Time Start [id number] [facility] Episode Statistic Recent Date Time End [id number] [facility] Episode Statistic Recent Date Time Start [id number] [facility] Episode Statistic Recent Date Time End [id number] [facility] Episode Statistic Recent Date Time Start [id number] [facility] Episode Statistic Recent Date Time End [id number] [facility] Episode Statistic Total Count [...] SYSTEM Episode Statistic Total Date Time Start [id number] [facility] Episode Statistic Total Date Time End [id number] [facility] Episode Statistic Total Date Time Start [id number] [facility] Episode Statistic Total Date Time End [id number] [facility] Episode Statistic Total Date Time Start [id number] [facility] Episode Statistic Total Date Time End [id number] [facility] Episode Statistic Total Date Time Start [id number] [facility] Episode Statistic Total Date Time End [id number] [facility] Episode Statistic Total Date Time Start [id number] [facility] Episode Statistic Total Date Time End [id number] [facility] Anatomical Region Laterality Modality Other 11/02/2023 9:44 AM CATTLE MANAGER Narrative 11/03/2023 10:13 AM CATTLE MANAGER PURPOSE OF VISIT: ??Patient seen post op [...] and expressed understanding. FOLLOW UP LOCATION STATUS: [facility] (A) NEXT FOLLOW UP: Next routine follow-up will be in 3 months via in clinic DEVICE RN: Loni Parkinson RN Provider statement: This patient underwent device interrogation. I agree that the device interrogation was medically indicated to provide appropriate care and continue routine device interrogations as indicated. Kg Holguin M.D. CV IMPLANTABLE CARDI AC DEVICE * (ABNORMAL) Basic Metabolic Panel (11/02/2023 9:39 AM CATTLE MANAGER) Potassium, S 4.8 3.6 - 5.2 mmol/L 11/02/2023 10:36 AM CATTLE MANAGER DTL Sodium, S 127(L) 135 - 145 mmol/L 11/02/2023 10:36 AM CATTLE MANAGER DTL Chloride, S 94(L) 98 - 107 mmol/L 11/02/2023 10:36 AM CATTLE MANAGER DTL Bicarbonate, S 20(L) 22 - 29 mmol/L 11/02/2023 10:36 AM CATTLE MANAGER DTL Anion Gap 13 7 - 15 11/02/2023 10:36 AM CATTLE MANAGER DTL BUN (Blood Urea Nitrogen), S 15 8 - 24 mg/dL 11/02/2023 10:36 AM CATTLE MANAGER DTL Creatinine 0.80 0.74 - 1.35 mg/dL 11/02/2023 10:36 AM CATTLE MANAGER DTL Estimated GFR (eGFR) 89 >=60 mL/min/BSA 11/02/2023 10:36 AM CATTLE MANAGER DTL Comment: Estimated GFR calculated using the 2020 CKD_EPI creatinine equation. Calcium, Total, S 9.3 8.8 - 10.2 mg/dL 11/02/2023 10:36 AM CATTLE MANAGER DTL Glucose, S 140 70 - 140 mg/dL 11/02/2023 10:36 AM CATTLE MANAGER DTL Blood (Blood, Venous) 11/02/2023 9:39 AM CATTLE MANAGER 11/02/2023 10:17 AM CATTLE MANAGER Delilah Lopez P.A.-C., M.S. LAB BLOOD ADD- ON [facility] [address] [place] [address], [address] [address] * (ABNORMAL) CBC without Differential (11/02/2023 9:39 AM CATTLE MANAGER) Pathologist [facility] Hemoglobin 14.1 13.2 - 16.6 g/dL 11/02/2023 10:57 AM CATTLE MANAGER DHPM Hematocrit 40.7 38.3 - 48.6 % 11/02/2023 10:57 AM CATTLE MANAGER DHPM Erythrocytes 4.53 4.35 - 5.65 x10(12)/L 11/02/2023 10:57 AM CATTLE MANAGER DHPM MCV 89.8 78.2 - 97.9 fL 11/02/2023 10:57 AM CATTLE MANAGER DHPM RBC Distrib Width 12.8 11.8 - 14.5 % 11/02/2023 10:57 AM CATTLE MANAGER DHPM Platelet Count 238 135 - 317 x10(9)/L 11/02/2023 10:57 AM CATTLE MANAGER DHPM Leukocytes 12.7(H) 3.4 - 9.6 x10(9)/L 11/02/2023 10:57 AM CATTLE MANAGER DHPM Blood (Blood, Venous) 11/02/2023 9:39 AM CATTLE MANAGER 11/02/2023 10:07 AM CATTLE MANAGER Delilah Lopez P.A.-C., M.S. LAB BLOOD ADD- ON Performing Organization Address City/[facility] Co de Phone Number [facility] [address] [place] [address], [facility] [address] [place] [address] * ECG 12 Lead (11/02/2023 4:42 AM CATTLE MANAGER) Ventricular Rate ECG/Min 81 BPM MUSE MI Interval 190 ms MUSE QRSD Interval 170 ms MUSE QT Interval 416 ms MUSE QTC Interval 483 ms MUSE P [place] 65 degrees MUSE R [place] 65 degrees MUSE T Wave [place] 265 degrees MUSE 11/02/2023 4:42 AM CATTLE MANAGER 11/02/2023 5:21 AM CATTLE MANAGER Impressions MUSE - 11/02/2023 5:12 AM CATTLE MANAGER Dual chamber electronic pacemaker Sinus rhythm Premature [...] Holguin M.D. ECG ORDERABLES Performing Organization Address City/[facility] Co de Phone Number MUSE NA * DX Chest AP or PA and Lateral 2 Views (11/01/2023 9:18 PM CATTLE MANAGER) Anatomical Region Laterality Modality Chest, Thoracic RST LOS, Tho racic ARZ LOS, Thoracic FLA LOS N/A Digital Radiography 11/01/2023 10:2 3 PM CATTLE MANAGER Impressions 11/02/2023 10:43 AM CATTLE MANAGER Since 10/31/2023, interval placement of left chest wall dual-chamber pacemaker with leads in appropriate position. No focal consolidation, large pleural effusion, or discernible pneumothorax. ??Normal heart size. Large hiatal hernia containing air-fluid level. Narrative 11/02/2023 10:43 AM CATTLE MANAGER EXAM: ??DX CHEST AP OR PA [...] IMPLANT - DUAL CHAMBER (11/01/2023 5:12 PM CATTLE MANAGER) Anatomical Region Laterality Modality X-Ray Angiograph y 11/01/2023 4:16 PM CATTLE MANAGER Narrative 11/01/2023 5:21 PM CATTLE MANAGER For the complete report, see the [...] ??Testing of the leads using an external sas programmer analyst was performed revealing adequate threshold, [...] in stable condition without complications. ??The attending shirt marker was present for the entire procedure. Plan: [...] sutures.Testing of the leads using an external sas programmer analyst was performed revealingadequate threshold, sensitivity, [...] P.A.-C., M.S. CV ELECTROPHYS IOLOGY PROCS * CARDIOVASCULAR IMPLANTABLE ELECTRONIC DEVICE - NO CHARGE (11/01/2023 4:07 PM CATTLE MANAGER) Date Time Interrogation Session [id number] [facility] Implantable Pulse Generator Career Portals Teacher Medtronic [facility] Implantable Pulse Generator Model [id number] [place] XT DR MRI [facility] Implantable Pulse Generator Serial Number [id number] [facility] Type Interrogation Session Implant [facility] Clinic Name [facility] Implantable Pulse Generator Type Pacemaker [facility] Implantable Pulse Generator Implant Date [id number] [facility] Implantable Lead Career Portals Teacher Medtronic [facility] Implantable Lead Model 4076 CapsureFix Novus MRI SureScan [facility] Implantable Lead Serial Number [id number] [facility] Implantable Lead Implant Date 20231101 [facility] Implantable Lead Polarity Type Bipolar Lead [facility] Implantable Lead Location Detail 1 UNKNOWN [facility] Implantable Lead Special Function Lead length: 52 cm [facility] Implantable Lead Location Right Atrium [facility] Implantable Lead Career Portals Teacher Medtronic [facility] Implantable Lead Model 4076 CapsureFix Novus MRI SureScIndyGeek [facility] Implantable Lead Serial Number [id number] [facility] Implantable Lead Implant Date 20231101 [facility] Implantable Lead Polarity Type Bipolar Lead [facility] Implantable Lead Location Detail 1 UNKNOWN [facility] Implantable Lead Special Function Lead length: 58 cm [facility] Implantable Lead Location Right Ventricle [facility] Сергей Setting Mode (NBG Code) DDD [facility] Сергей Setting Lower Rate Limit 60 {beats}/ min [facility] Сергей Setting Maximum Tracking Rate 120 {beats}/ min [facility] Сергей Setting Maximum Sensor Rate 120 {beats}/ min [facility] Сергей Setting KATHY Delay Low 150 ms [facility] Сергей Setting PAV Delay Low 180 ms [facility] Сергей Setting AT Mode Switch Rate 171 {beats}/ min [facility] Сергей Setting AT Mode Switch Mode DDIR [facility] Lead Channel Setting Sensing Polarity Bipolar [facility] Lead Channel Setting Sensing Anode Location Right Atrium [facility] Lead Channel Setting Sensing Anode Terminal Ring [facility] Lead Channel Setting Sensing Cathode Location Right Atrium [facility] Lead Channel Setting Sensing Cathode Terminal Tip [facility] Lead Channel Setting Sensing Sensitivity 0.3 mV [facility] Lead Channel Setting Sensing Polarity Bipolar [facility] Lead Channel Setting Sensing Anode Location Right Ventricle [facility] Lead Channel Setting Sensing Anode Terminal Ring [facility] Lead Channel Setting Sensing Cathode Location Right Ventricle [facility] Lead Channel Setting Sensing Cathode Terminal Tip [facility] Lead Channel Setting Sensing Sensitivity 0.9 mV [facility] Lead Channel Setting Pacing Polarity Bipolar [facility] Lead Channel Setting Pacing Anode Location Right Atrium [facility] Lead Channel Setting Pacing Anode Terminal Ring [facility] Lead Channel Setting Sensing Cathode Location Right Atrium [facility] Lead Channel Setting Sensing Cathode Terminal Tip [facility] Lead Channel Setting Pacing Pulse Width 0.4 ms [facility] Lead Channel Setting Pacing Amplitude 3.5 V [facility] Lead Channel Setting Pacing Capture Mode Adaptive [facility] Lead Channel Setting Pacing Polarity Bipolar [facility] Lead Channel Setting Pacing Anode Location Right Ventricle [facility] Lead Channel Setting Pacing Anode Terminal Ring [facility] Lead Channel Setting Sensing Cathode Location Right Ventricle [facility] Lead Channel Setting Sensing Cathode Terminal Tip [facility] Lead Channel Setting Pacing Pulse Width 0.4 ms [facility] Lead Channel Setting Pacing Amplitude 3.5 V [facility] Lead Channel Setting Pacing Capture Mode Adaptive [facility] Zone Setting Type Category VF [facility] Zone Setting Type Category VT [facility] Zone Setting Type Category VT [facility] Zone Setting Type Category VT [facility] Zone Setting Detection Interval 360 ms [facility] Zone Setting Type Category ATRIAL_FIBRILLATI ON [facility] Zone Setting Type Category AT/AF [facility] Zone Setting Detection Interval 350 ms [facility] Lead Channel Impedance Value 608 ohm [facility] Lead Channel Sensing Intrinsic Amplitude 2.75 mV [facility] Lead Channel Pacing Threshold Amplitude 0.5 V [facility] Lead Channel Pacing Threshold Pulse Width 0.4 ms [facility] Lead Channel Impedance Value 741 ohm [facility] Lead Channel Sensing Intrinsic Amplitude 6.625 mV [facility] Lead Channel Pacing Threshold Amplitude 0.25 V [facility] Lead Channel Pacing Threshold Pulse Width 0.4 ms [facility] Battery Date Time of Measurements [id number] [facility] Battery WOOD TANK BUILDER Trigger 2.625 [facility] Battery Voltage 3.20 V [facility] Сергей Statistic Date Time Start [id number] [facility] Сергей Statistic Date Time End [id number] [facility] Сергей Statistic RA Percent Paced 0 % [facility] Сергей Statistic RV Percent Paced 0 % [facility] Сергей Statistic AP STULL HEWER Percent 0 % [facility] Сергей Statistic STULL HEWER Percent 0 % [facility] Сергей Statistic AP VS Percent 0 % [facility] Сергей Statistic VS Percent 0 % [facility] Atrial Tachy Statistic Date Time Start [id number] [facility] Atrial Tachy Statistic Date Time End [id number] [facility] Atrial Tachy Statistic AT/AF [place] Percent 0 % [facility] Episode [...] SYSTEM Episode Statistic Recent Date Time End [id number] [facility] Episode Statistic Recent Date Time Start [id number] [facility] Episode Statistic Recent Date Time End [id number] [facility] Episode Statistic Recent Date Time Start [id number] [facility] Episode Statistic Recent Date Time End [id number] [facility] Episode Statistic Recent Date Time Start [id number] [facility] Episode Statistic Recent Date Time End [id number] [facility] Episode Statistic Total Count [...] SYSTEM Episode Statistic Total Date Time End [id number] [facility] Episode Statistic Total Date Time End [id number] [facility] Episode Statistic Total Date Time End [id number] [facility] Episode Statistic Total Date Time End [facility] Episode Statistic Total Date Time End [facility] Anatomical Region Laterality Modality Other 11/01/2023 3:49 PM CATTLE MANAGER Narrative 11/04/2023 11:15 AM CATTLE MANAGER PURPOSE OF VISIT: ?? Implant DCPM PRESENTING [...] * Sodium, Random, Urine (11/01/2023 10:44 AM CATTLE MANAGER) Sodium, Random, U 48 mmol/L 11/01/2023 12:55 PM CATTLE MANAGER DT Comment: ----REFERENCE VALUE---- Random urine sodium may be interpreted in conjunction with serum sodium, using both values to calculate fractional excretion of sodium. Urine (Urine, Straight Catheter) 11/01/2023 10:44 AM CATTLE MANAGER 11/01/2023 11:37 AM CATTLE MANAGER Delilah Lopez P.A.-C., M.S. LAB URINE ORDE RABKATERYNA Performing Organization Address City/[facility]/ZIP Co de Phone Number [facility] [address] [place] [address], [facility] [address] [place] [address] * Osmolality, Urine (11/01/2023 10:44 AM CATTLE MANAGER) Osmolality, U 426 150 - 1150 mOsm/kg 11/01/2023 12:03 PM CATTLE MANAGER DTL Urine (Urine, Straight Catheter) 11/01/2023 10:44 AM CATTLE MANAGER 11/01/2023 11:37 AM CATTLE MANAGER Delilah Lopez P.A.-C., M.S. LAB URINE ORDE RABKATERYNA Performing Organization Address City/[facility]/ZIP Co de Phone Number [facility] [address] [place] [address], [facility] [address] [place] [address] * Magnesium (11/01/2023 6:35 AM CATTLE MANAGER) Magnesium, S 2.1 1.7 - 2.3 mg/dL 11/01/2023 7:35 AM CATTLE MANAGER DTL Blood (Blood, Venous) 11/01/2023 6:35 AM CATTLE MANAGER 11/01/2023 7:18 AM CATTLE MANAGER Delilah Lopez P.A.-C. M.S. LAB BLOOD ADD- ON [facility] [address] [place] [address], [facility] [address] [place] [address] * (ABNORMAL) Basic Metabolic Panel (11/01/2023 6:35 AM CATTLE MANAGER) Potassium, S 4.2 3.6 - 5.2 mmol/L 11/01/2023 7:35 AM CATTLE MANAGER DTL Sodium, S 128(L) 135 - 145 mmol/L 11/01/2023 7:35 AM CATTLE MANAGER DTL Chloride, S 94(L) 98 - 107 mmol/L 11/01/2023 7:35 AM CATTLE MANAGER DTL Bicarbonate, S 23 22 - 29 mmol/L 11/01/2023 7:35 AM CATTLE MANAGER DTL Anion Gap 11 7 - 15 11/01/2023 7:35 AM CATTLE MANAGER DTL BUN (Blood Urea Nitrogen), S 14 8 - 24 mg/dL 11/01/2023 7:35 AM CATTLE MANAGER DTL Creatinine 0.84 0.74 - 1.35 mg/dL 11/01/2023 7:35 AM CATTLE MANAGER DTL Estimated GFR (eGFR) 88 >=60 mL/min/BSA 11/01/2023 7:35 AM CATTLE MANAGER DTL Comment: Estimated GFR calculated using the 2020 CKD_EPI creatinine equation. Calcium, Total, S 8.4(L) 8.8 - 10.2 mg/dL 11/01/2023 7:35 AM CATTLE MANAGER DTL Glucose, S 98 70 - 140 mg/dL 11/01/2023 7:35 AM CATTLE MANAGER DTL Blood (Blood, Venous) 11/01/2023 6:35 AM CATTLE MANAGER 11/01/2023 7:18 AM CATTLE MANAGER Delilah Lopez P.A.-C. MCarmineS. LAB BLOOD ADD- ON [facility] [address] [place] [address], [facility] DTL [facility] [address] [place] [address] * (ABNORMAL) CBC with Differential, Blood (11/01/2023 6:35 AM CATTLE MANAGER) Hemoglobin 12.2(L) 13.2 - 16.6 g/dL 11/01/2023 7:18 AM CATTLE MANAGER DTL Hematocrit 34.5(L) 38.3 - 48.6 % 11/01/2023 7:18 AM CATTLE MANAGER DTL Erythrocytes 3.89(L) 4.35 - 5.65 x10(12)/L 11/01/2023 7:18 AM CATTLE MANAGER DTL MCV 88.7 78.2 - 97.9 fL 11/01/2023 7:18 AM CATTLE MANAGER DTL RBC Distrib Width 13.2 11.8 - 14.5 % 11/01/2023 7:18 AM CATTLE MANAGER DTL Platelet Count 183 135 - 317 x10(9)/L 11/01/2023 7:18 AM CATTLE MANAGER DTL Leukocytes 7.3 3.4 - 9.6 x10(9)/L 11/01/2023 7:18 AM CATTLE MANAGER DTL Neutrophils 4.04 1.56 - 6.45 x10(9)/L 11/01/2023 7:18 AM CATTLE MANAGER DHPM Lymphocytes 1.94 0.95 - 3.07 x10(9)/L 11/01/2023 7:18 AM CATTLE MANAGER DTL Monocytes 0.91(H) 0.26 - 0.81 x10(9)/L 11/01/2023 7:18 AM CATTLE MANAGER DTL Eosinophils 0.34 0.03 - 0.48 x10(9)/L 11/01/2023 7:18 AM CATTLE MANAGER DTL Basophils 0.03 0.01 - 0.08 x10(9)/L 11/01/2023 7:18 AM CATTLE MANAGER DTL Blood (Blood, Venous) 11/01/2023 6:35 AM CATTLE MANAGER 11/01/2023 7:04 AM CATTLE MANAGER Narrative Authorizing Provider Result Manuel Lopez P.A.-C. M.S. LAB BLOOD ADD- ON Performing Organization Address City/[facility]/ZIP Co de Phone Number [facility] [address] [place] [address], [facility] [address] [place], [place] [id number] [place] [address] [address] [place] [address] * (ABNORMAL) Osmolality (11/01/2023 6:35 AM CATTLE MANAGER) Pathologist [facility] Osmolality, S 265(L) 275 - 295 mOsm/kg 11/01/2023 9:40 AM CATTLE MANAGER DTL Blood (Blood, Venous) 11/01/2023 6:35 AM CATTLE MANAGER 11/01/2023 7:18 AM CATTLE MANAGER Narrative Authorizing Provider Result Manuel Lopez P.A.-C., M.S. LAB BLOOD ADD- ON Performing Organization Address [facility] Co de Phone Number [facility] [address] [place] [address], [facility] [address] [place] [address] * (ABNORMAL) Dipstick, Urine (10/31/2023 12:22 PM CATTLE MANAGER) Hemoglobin, QL Moderate(A) Negative 10/31/2023 2:05 PM CATTLE MANAGER DTL Leukocyte Esterase, U Trace(A) Negative 10/31/2023 2:05 PM CATTLE MANAGER DTL Nitrite, U Negative Negative 10/31/2023 2:05 PM CATTLE MANAGER DTL Ketones, U Negative Negative mg/dL 10/31/2023 2:05 PM CATTLE MANAGER DTL Glucose, U Negative Negative mg/dL 10/31/2023 2:05 PM CATTLE MANAGER DTL Urine 10/31/2023 12:2 2 PM CATTLE MANAGER 10/31/2023 12:49 PM CATTLE MANAGER Delilah Lopez P.A.-C. M.S. LAB URINE ORDE BENNIE [facility] [address] [place] [address], [facility] DTL [facility] [address] [place] [address] * (ABNORMAL) Microscopic Automated (10/31/2023 12:22 PM CATTLE MANAGER) Microscopy Abnormal 10/31/2023 2:05 PM CATTLE MANAGER DTL RBC 51-100(A) <3 /hpf 10/31/2023 2:05 PM CATTLE MANAGER DTL Dysmorphic RBC <25 <25 % 10/31/2023 2:05 PM CATTLE MANAGER DTL WBC 1-3 /hpf 10/31/2023 2:05 PM CATTLE MANAGER DTL Comment: ----REFERENCE VALUE---- <4 ??(Males) <11 (Females) Urine 10/31/2023 12:2 2 PM CATTLE MANAGER 10/31/2023 12:49 PM CATTLE MANAGER Delilah Lopez P.A.-C., M.S. LAB URINE FRANDYE BENNIE Performing Organization Address [facility] Co de Phone Number [facility] [address] [place] [address], [facility] [address] [place] [address] * Osmolality, Urine (10/31/2023 12:22 PM CATTLE MANAGER) Osmolality, U 367 150 - 1150 mOsm/kg 10/31/2023 2:11 PM CATTLE MANAGER DTL Urine 10/31/2023 12:2 2 PM CATTLE MANAGER 10/31/2023 12:49 PM CATTLE MANAGER Delilah Lopez P.A.-C., M.S. LAB URINE ORDE BENNIE Performing Organization Address City/[facility]/ZIP Co de Phone Number [facility] [address] DTL [facility] [address] [place] [phone] * pH, Urine (10/31/2023 12:22 PM CATTLE MANAGER) pH, U 6.5 4.5 - 8.0 10/31/2023 2:1 1 PM CATTLE MANAGER DTL Urine 10/31/2023 12:2 2 PM CATTLE MANAGER 10/31/2023 12:49 PM CATTLE MANAGER Delilah Lopez P.A.-C., M.S. LAB URINE ORDE KIZZYKATERYNA Performing Organization Address City/[facility]/ZIP Co de Phone Number [facility] [address] [place], [place] [phone] [place] [address] DTL [facility] [address] [place] [address] * (ABNORMAL) Urinalysis with Microscopic: Urine, Straight Catheter (10/31/2023 12:22 PM CATTLE MANAGER) Source Urine, Urine, Straight Catheter 10/31/2023 12:49 PM CATTLE MANAGER DTL Color, U Yellow 10/31/2023 12:49 PM CATTLE MANAGER DTL Clarity, U Clear 10/31/2023 12:49 PM CATTLE MANAGER DTL Protein, U 23 <26 mg/dL 10/31/2023 1:41 PM CATTLE MANAGER DTL Protein/Osmola lity 0.63(H) <0.42 ratio 10/31/2023 2:11 PM CATTLE MANAGER DTL Predicted 24 HR Protein, U 603(H) <229 mg/24 h 10/31/2023 2:11 PM CATTLE MANAGER DTL Predicted Range 191-1901 mg/24 h 10/31/2023 2:11 PM CATTLE MANAGER DTL Urine (Urine, Straight Catheter) 10/31/2023 12:22 PM CATTLE MANAGER 10/31/2023 12:49 PM CATTLE MANAGER Delilah Lopez P.A.-C., M.S. LAB URINE ORDCinda DURANDKATERYNA Performing Organization Address City/[facility]/ZIP Co de Phone Number [facility] [address] DTL [facility] [address] [place] [address] * (TTE) 2D ECHO DOPPLER COLOR (10/31/2023 9:42 AM CATTLE MANAGER) Ejection Fraction 51 MC CV EIMS Wall [...] Region Laterality Modality Echocardiography 10/31/2023 7:59 AM CATTLE MANAGER Impressions 10/31/2023 10:20 AM CATTLE MANAGER Echo performed at the patient's bedside. [...] the Order-Level Documents. Narrative 10/31/2023 10:20 AM CATTLE MANAGER For the complete report, see the [...] Troponin T, 5th Generation (10/31/2023 8:14 AM CATTLE MANAGER) Pathologist [facility] Troponin T, 5th gen 21(H) <=15 ng/L 10/31/2023 8:40 AM CATTLE [facility]NAGER [facility] Blood (Blood, Venous) 10/31/2023 8:14 AM CATTLE MANAGER 10/31/2023 8:40 AM CATTLE MANAGER Narrative Authorizing Provider Result Manuel Bell P.A.-C. LAB BLOOD ADD-ON Performing Organization Address City/[facility] Co de Phone Number [facility] [address] [place] [address], [facility] [address] [place] [address] * Thyroid Function [place] (10/31/2023 8:14 AM CATTLE MANAGER) [facility] TSH, Sensitive 0.6 0.3 - 4.2 mIU/L 10/31/2023 10:43 AM CATTLE MANAGER DTL Blood (Blood, Venous) 10/31/2023 8:14 AM CATTLE MANAGER 10/31/2023 9:05 AM CATTLE MANAGER Narrative Authorizing Provider Result Manuel Bell P.A.-C. LAB BLOOD ADD-ON Performing Organization Address [facility] de Phone Number [facility] [address] [place] [address], [facility] [address] [place] [address] * (ABNORMAL) Hemoglobin A1c (10/31/2023 8:14 AM CATTLE MANAGER) [facility] Hemoglobin A1c, B 6.1(H) 4.0 - 5.6 % 10/31/2023 11:41 AM CATTLE MANAGER DTL Comment: Hemoglobin A1c values of 5.7-6.4 percent indicate an increased risk for developing diabetes mellitus. In diabetic patients, HbA1c goals should be discussed with healthcare provider. Blood (Blood, Venous) 10/31/2023 8:14 AM CATTLE MANAGER 10/31/2023 8:37 AM CATTLE MANAGER Narrative Authorizing Provider Result Manuel Bell P.A.-C. LAB BLOOD ADD-ON Performing Organization Address [facility] Co de Phone Number [facility] [address] [place] [address] * Magnesium (10/31/2023 8:14 AM CATTLE MANAGER) Magnesium, S 2.1 1.7 - 2.3 mg/dL 10/31/2023 10:43 AM CATTLE MANAGER DTL Blood (Blood, Venous) 10/31/2023 8:14 AM CATTLE MANAGER 10/31/2023 9:05 AM CATTLE MANAGER Naveen Bell P.A.-C. LAB BLOOD ADD-ON Performing Organization Address [facility] Co de Phone Number [facility] [address] [place] [address] * (ABNORMAL) Comprehensive Metabolic Panel (10/31/2023 8:14 AM CATTLE MANAGER) Potassium, S 4.6 3.6 - 5.2 mmol/L 10/31/2023 10:43 AM CATTLE MANAGER DTL Sodium, S 130(L) 135 - 145 mmol/L 10/31/2023 10:43 AM CATTLE MANAGER DTL Chloride, S 94(L) 98 - 107 mmol/L 10/31/2023 10:43 AM CATTLE MANAGER DTL Bicarbonate, S 22 22 - 29 mmol/L 10/31/2023 10:43 AM CATTLE MANAGER DTL Anion Gap 14 7 - 15 10/31/2023 10:43 AM CATTLE MANAGER DTL BUN (Blood Urea Nitrogen), S 13 8 - 24 mg/dL 10/31/2023 10:43 AM CATTLE MANAGER DTL Creatinine 0.80 0.74 - 1.35 mg/dL 10/31/2023 10:43 AM CATTLE MANAGER DTL Estimated GFR (eGFR) 89 >=60 mL/min/BS A 10/31/2023 10:43 AM CATTLE MANAGER DTL Comment: Estimated GFR calculated using the 2020 CKD_EPI creatinine equation. Calcium, Total, S 8.7(L) 8.8 - 10.2 mg/dL 10/31/2023 10:43 AM CATTLE MANAGER DTL Glucose, S 107 70 - 140 mg/dL 10/31/2023 10:43 AM CATTLE MANAGER DTL Protein, Total, S 6.8 6.3 - 7.9 g/dL 10/31/2023 10:43 AM CATTLE MANAGER DTL Albumin, S 3.9 3.5 - 5.0 g/dL 10/31/2023 10:43 AM CATTLE MANAGER DTL Aspartate Aminotransferase (AST), S 25 8 - 48 U/L 10/31/2023 10:43 AM CATTLE MANAGER DTL Alkaline Phosphatase, S 112 40 - 129 U/L 10/31/2023 10:43 AM CATTLE MANAGER DTL Alanine Aminotransferase (ALT), S 20 7 - 55 U/L 10/31/2023 10:43 AM CATTLE MANAGER DTL Bilirubin, Total, S 0.5 0.0 - 1.2 mg/dL 10/31/2023 10:43 AM CATTLE MANAGER DTL Blood (Blood, Venous) 10/31/2023 8:14 AM CATTLE MANAGER 10/31/2023 9:05 AM CATTLE MANAGER Naveen Bell P.A.-C. LAB BLOOD ADD-ON [facility] [address] [place] [address], [facility] [address] [place] [address] * (ABNORMAL) CBC without Differential (10/31/2023 8:14 AM CATTLE MANAGER) Hemoglobin 14.0 13.2 - 16.6 g/dL 10/31/2023 10:28 AM CATTLE MANAGER DTL Hematocrit 40.5 38.3 - 48.6 % 10/31/2023 10:28 AM CATTLE MANAGER DTL Erythrocytes 4.50 4.35 - 5.65 x10(12)/L 10/31/2023 10:28 AM CATTLE MANAGER DTL MCV 90.0 78.2 - 97.9 fL 10/31/2023 10:28 AM CATTLE MANAGER DTL RBC Distrib Width 13.1 11.8 - 14.5 % 10/31/2023 10:28 AM CATTLE MANAGER DTL Platelet Count 230 135 - 317 x10(9)/L 10/31/2023 10:28 AM CATTLE MANAGER DTL Leukocytes 9.7(H) 3.4 - 9.6 x10(9)/L 10/31/2023 10:28 AM CATTLE MANAGER DTL Blood (Blood, Venous) 10/31/2023 8:14 AM CATTLE MANAGER 10/31/2023 8:37 AM CATTLE MANAGER Naveen Bell P.A.-C. 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 Do NOT crush, chew, or split tablet. Given 11/02/2023 8:49 AM CATTLE MANAGER 81 mg Given 11/01/2023 9:56 AM CATTLE MANAGER 81 mg Given 10/31/2023 10:50 AM CATTLE MANAGER 81 mg carvediloL tablet 25 mg (COREG) 25 mg, oral, 2 times daily with meals, First dose on Tue11/02/23 at 0800 Given 11/02/2023 8:49 AM CATTLE MANAGER 25 mg fentaNYL injection 25 mcg (SUBLIMAZE) 25 mcg, [...] Tue10/31/23 at 0700 Given 11/02/2023 5:16 AM CATTLE MANAGER 175 mcg Given 11/01/2023 6:36 AM CATTLE MANAGER 175 mcg Given 10/31/2023 6:20 AM CATTLE MANAGER 175 mcg lidocaine 10 mg/mL (1 %) injection (XYLOCAINE) Code/trauma/sedation medication, Starting on Tue11/01/23 at 1619, Intraprocedure (CV) Given 11/01/2023 4:22 PM CATTLE MANAGER 10 mL Left Chest Given 11/01/2023 4:19 PM CATTLE MANAGER 10 mL Le ft Chest lisinopriL tablet 40 mg (PRINIVIL,ZESTRIL) 40 mg, oral, Daily, First dose on Tue10/31/23 at 0900 Given 11/02/2023 8:49 AM CATTLE MANAGER 40 mg Given 11/01/2023 9:56 AM CATTLE MANAGER 40 mg Given 10/31/2023 10:50 AM CATTLE MANAGER 40 mg loratadine tablet 10 mg (CLARITIN) 10 mg, oral, Daily, First dose on Tue10/31/23 at 0900, loratadine 10 mg oral daily was interchanged for cetirizine 5 mg oral twice daily Given 11/02/2023 8:49 AM CATTLE MANAGER 10 mg Given 10/31/2023 10:50 AM CATTLE MANAGER 10 mg montelukast tablet 10 mg (SINGULAIR) 10 mg, oral, Daily at bedtime, First dose on Tue10/31/23 at 2100 Given 11/01/2023 8:04 PM CATTLE MANAGER 10 mg Given 10/31/2023 8:31 PM CATTLE MANAGER 10 mg ldwxsbqqkznd-bxkk-LP-Ca-minerals 400 mcg (folic acid) tablet 1 tablet (THERAPEUTIC-M) 1 tablet, oral, Daily, First dose on Tue10/31/23 at 0900 Given 11/02/2023 8:49 AM CATTLE MANAGER 1 tablet Given 11/01/2023 9:56 AM CATTLE MANAGER 1 tablet Given 10/31/2023 10:50 AM CATTLE MANAGER 1 tablet nitrofurantoin monohydrate capsule 100 mg (MACROBID) 100 mg, oral, 2 times daily, First dose on Tue10/31/23 at 0900, For 4 days, Drug Monitoring Program: Pharmacist to adjust medication dosing based on indication and drug clearance factors., Indications: Lower UTI, Non-Catheter Given 11/02/2023 8:49 AM CATTLE MANAGER 100 mg Given 11/01/2023 8:04 PM CATTLE MANAGER 100 mg Given 11/01/2023 9:56 AM CATTLE MANAGER 100 mg rosuvastatin tablet 40 mg (CRESTOR) 40 mg, oral, Daily, First dose on Tue10/31/23 at 0900 Given 11/02/2023 8:49 AM CATTLE MANAGER 40 mg Given 11/01/2023 9:56 AM CATTLE MANAGER 40 mg Given 10/31/2023 10:50 AM CATTLE MANAGER 40 mg sodium chloride 0.9 % injection 3 mL 3 mL, intravenous, Every 12 hours scheduled, First dose on Tue10/31/23 at 0900, Peripheral Intravenous Catheter and Rapid Infusion Catheter, when no infusion to maintain patency Given 11/02/2023 8: 49 AM CATTLE MANAGER 3 mL Given 11/01/2023 8:06 PM CATTLE MANAGER 3 mL Given 11/01/2023 9:57 AM CATTLE MANAGER 3 mL tamsulosin 24 hr capsule 0.4 mg (FLOMAX) 0.4 mg, oral, Daily at bedtime, First dose on Tue10/31/23 at 2100, Swallow whole. Do NOT crush, chew or open capsule. Given 11/01/2023 8:04 PM CATTLE MANAGER 0.4 mg Given 10/31/2023 8:31 PM CATTLE MANAGER 0.4 mg documented in this encounter Active and Recently Administered Medications Times are shown in CATTLE MANAGER. Scheduled Medication Order 10/31/2023 11/01/2023 11/02/2023 aspirin [...] 0849 (Given - Provider: Elsa Rome RCarmineNCarmine) carvediloL tablet 25 mg (COREG) 25 mg, oral, 2 times daily with meals, First dose on Tue11/02/23 at 0800 0849 (Given - Provider: Elsa Rome RCarmineNCarmine) chlorhexidine 4 % external solution 1 Application (HIBICLENS) (COMPLETED) 1 Application, topical, 2 times daily, First dose on Tue10/31/23 at 2100, For 2 doses, Scrub chest tonight and tomorrow am - pre procedure 2033 (Given - Provider: Radha Bassett RCarmineNCramine) 0958 (Given - Provider: Viviane Maldonado R.N.) levothyroxine tablet 175 mcg (SYNTHROID, LEVOTHROID) 175 mcg, oral, Daily before breakfast, First dose on Tue10/31/23 at 0700 0620 (Given - Provider: Criselda Lindquist RCarmineNCarmine) 0636 (Given - Provider: Elisabeth Collins RCarmineNCarmine)1444 (JAN Hold - Provider: Transfer Provider, Automatic - Reason: Patient not available)1748 (JAN Unhold - Provider: Transfer Provider, Automatic) 0516 (Given - Provider: Heather Montemayor R.NCarmine) lisinopriL tablet 40 mg (PRINIVIL,ZESTRIL) 40 mg, oral, Daily, First dose on Tue10/31/23 at 0900 1050 (Given - Provider: Viviane Maldonado R.N.) 0956 (Given - Provider: Viviane Maldonado R.N.)1444 (JAN Hold - Provider: Transfer Provider, Automatic - Reason: Patient not available)1748 (JAN Unhold - Provider: Transfer Provider, Automatic) 0849 (Given - Provider: Elsa Rome RCarmineNCarmine) loratadine tablet 10 mg (CLARITIN) 10 mg, oral, Daily, First dose on Tue10/31/23 at 0900, loratadine 10 mg oral daily was interchanged for cetirizine 5 mg oral twice daily 1050 (Given - Provider: Viviane Maldonado RCarmineN.) 0958 (Not Given - Provider: Viviane Maldonado R.N. - Reason: Patient/family refused)1444 (JAN Hold - Provider: Transfer Provider, Automatic - Reason: Patient not available)1748 (JAN Unhold - Provider: Transfer Provider, Automatic) 0849 (Given - Provider: Elsa Rome R.N.) montelukast tablet 10 mg (SINGULAIR) 10 mg, oral, Daily at bedtime, First dose on Tue10/31/23 at 2100 2030 (Given - Provider: Radha Bassett RCarmineN.) 1444 (JAN Hold - Provider: Transfer Provider, Automatic - Reason: Patient not available)1748 (JAN Unhold - Provider: Transfer Provider, Automatic)2003 (Given - Provider: Heather Montemayor R.N.) irvknosrtmlo-ummh-VL-Ca -minerals 400 mcg (folic acid) tablet 1 tablet (THERAPEUTIC-M) 1 tablet, oral, Daily, First dose on Tue10/31/23 at 0900 1050 (Given - Provider: Viviane Maldonado RCarmineN.) 0956 (Given - Provider: Viviane Maldonado RCarmineN.)1444 (JAN Hold - Provider: Transfer Provider, Automatic - Reason: Patient not available)1748 (JAN Unhold - Provider: Transfer Provider, Automatic) 0849 (Given - Provider: Elsa Rome R.N.) mupirocin 2 % ointment 1 Application (BACTROBAN) (COMPLETED) 1 Application, each nostril, 2 times daily, First dose on Tue10/31/23 at 2100, For 2 doses 2030 (Given - Provider: Radha Bassett R.N.) 0956 (Given - Provider: Viviane Maldonado R.N.) nitrofurantoin monohydrate capsule 100 mg (MACROBID) 100 mg, oral, 2 times daily, First dose on Tue10/31/23 at 0900, For 4 days, Drug Monitoring Program: Pharmacist to adjust medication dosing based on indication and drug clearance factors., Indications: Lower UTI, Non-Catheter 1050 (Given - Provider: Viviane Maldonado R.N.)2030 (Given - Provider: Radha Bassett R.N.) 0956 (Given - Provider: Viviane Maldonado R.N.)144 (JAN Hold - Provider: Transfer Provider, Automatic - Reason: Patient not available)174 (JAN Unhold - Provider: Transfer Provider, Automatic)2003 (Given - Provider: Heather Montemayor RCarmineNCarmine) 0849 (Given - Provider: Elsa Rome R.N.) rosuvastatin tablet 40 mg (CRESTOR) 40 mg, oral, Daily, First dose on Tue10/31/23 at 0900 1050 (Given - Provider: Viviane Maldonado R.N.) 0956 (Given - Provider: Viviane Maldonado R.N.)144 (JAN Hold - Provider: Transfer Provider, Automatic - Reason: Patient not available)174 (JAN Unhold - Provider: Transfer Provider, Automatic) 0849 (Given - Provider: Elsa Rome R.N.) sodium chloride 0.9 % injection 3 mL 3 mL, intravenous, Every 12 hours scheduled, First dose on Tue10/31/23 at 0900, Peripheral Intravenous Catheter and Rapid Infusion Catheter, when no infusion to maintain patency 1050 (Given - Provider: Viviane Maldonado R.N.)2033 (Given - Provider: Radha Bassett R.N.) 0957 (Given - Provider: Viviane Maldonado R.N.)1444 (JAN Hold - Provider: Transfer Provider, Automatic - Reason: Patient not available)1748 (JAN Unhold - Provider: Transfer Provider, Automatic)2005 (Given - Provider: Heather Montemayor RCarmineN.) 0849 (Given - Provider: Elsa Rome R.N.) tamsulosin 24 hr capsule 0.4 mg (FLOMAX) 0.4 mg, oral, Daily at bedtime, First dose on Tue10/31/23 at 2100, Swallow whole. Do NOT crush, chew or open capsule. 2030 (Given - Provider: Radha Bassett RJackson) 1444 (JAN Hold - Provider: Transfer Provider, Automatic - Reason: Patient not available)1748 ([facility] Unhold - Provider: Transfer Provider, Automatic)2003 (Given - Provider: Heather Montemayor RJackson) PRN Medication Order 10/31/2023 11/01/2023 11/02/2023 acetaminophen tablet 1,000 mg (TYLENOL) 1,000 mg, oral, Every 6 hours PRN, mild pain or score 1-3 of 10, fever, Notify sevice prior to first administration for fever, Starting on Tue10/31/23 at 0346 0006 (Given - Provider: Elisabeth Collins R.N.)1444 ([facility] Hold - Provider: Transfer Provider, Automatic - Reason: Patient not available)1748 ([facility] Unhold - Provider: Transfer Provider, Automatic)1943 (Given - Provider: Heather Montemayor RCarmineN.) 0314 (Given - Provider: Heather Montemayor RCarmineN.)1106 (Given - Provider: Elsa Rome R.N.) albuterol nebulizer solution 2.5 mg 2.5 mg, nebulization, Daily PRN, wheezing, shortness of breath, Starting on Tue10/31/23 at 0340, Albuterol nebs were interchanged for albuterol/levalbuterol MDI (same frequency) 1444 ([facility] Hold - Provider: Transfer Provider, Automatic - Reason: Patient not available)174 ([facility] Unhold - Provider: Transfer Provider, Automatic) bisacodyL DR tablet 10 mg (DULCOLAX) 10 mg, oral, Daily PRN, constipation, Starting on Tue10/31/23 at 0345, PO route preferred. Constipation unrelieved by docusate sodium (COLACE) if ordered. If results needed within 2 hours give rectal suppository if ordered. Swallow whole. Do NOT crush, chew, or split tablet. 1444 ([facility] Hold - Provider: Transfer Provider, Automatic - Reason: Patient not available)1748 ([facility] Unhold - Provider: Transfer Provider, Automatic) bisacodyL suppository 10 mg (DULCOLAX) 10 mg, rectal, Daily PRN, constipation, Starting on Tue10/31/23 at 0345, PO route preferred. Constipation unrelieved by docusate sodium (COLACE) if ordered. If results needed within 2 hours - give rectal suppository. 1444 ([facility] Hold - Provider: Transfer Provider, Automatic - Reason: Patient not available)1748 ([facility] Unhold - Provider: Transfer Provider, Automatic) calcium carbonate chewable tablet 400 mg of calcium (TUMS) 400 mg of calcium, oral, Every 2 hour PRN, indigestion, Not to exceed 12 tablets in 24 hours, Starting on Tue10/31/23 at 0345, Doses listed are in mg of elemental calcium. Take with food. 500 mg calcium carbonate contains 200 mg of elemental calcium. 1444 ([facility] Hold - Provider: Transfer Provider, Automatic - Reason: Patient not available)1748 ([facility] Unhold - Provider: Transfer Provider, Automatic) fentaNYL [...] inhaler from mouth. 7. Close lid. 1444 ([facility] Hold - Provider: Transfer Provider, Automatic - Reason: Patient not available)1748 ([facility] Unhold - Provider: Transfer Provider, Automatic) lidocaine [...] blood transfusion or post blood sampling 1444 ([facility] Hold - Provider: Transfer Provider, Automatic - Reason: Patient not available)1748 ([facility] Unhold - Provider: Transfer Provider, Automatic) sodium chloride 0.9 % injection 3 mL 3 mL, intravenous, As needed, line care, Starting on Tue10/31/23 at 0343, Prior to and following infusion and between multiple consecutive infusions: sodium chloride 0.9 % injection 1444 ([facility] Hold - Provider: Transfer Provider, Automatic - Reason: Patient not available)1748 ([facility] Unhold - Provider: Transfer Provider, Automatic) Linked [...] ineffective documented in this encounter Care Teams [employer] Machine Operator Relationship Specialty Start Date End Date Elsewhere, Pcp PCP - General Family Medicine 10/25/18 documented as of this encounter
--- OUTSIDE RECORDS SUMMARY | 2023-12-09 00:08 | XMS_ITS | Encounter Summary ---
Author Name Unknown Organization [facility] Address [address] [place] [address] Care Team Providers Care Lawn Care Technician Name Role Phone Elsewhere, Pcp Primary Care Provider Unavailabl e Reason for Visit * Reason Comments Shortness of Breath Chest Pain Encounter Details Date Type Department Care Team (Late st Contact Info) Description 10/30/2023 11:27 PM MENTAL HEALTH COUNSELOR - 10/31/2023 1:52 AM [facility] Emergency [facility] [address] [place] [address] [phone] Hernandez Bacon, P.A.-C. [address] [place] [address] [phone] Shortness Of Breath (Primary Dx); Failure Heart (HCC); Bradycardia Discharge Disposition: Acute Care Hospital Social History Tobacco Use Types Packs/Day Years [...] re latives? Once a week 05/31/2020 Attends Confucianist Services Not on file 05/31 Active Member [...] Answer Date Recorded PHQ-2 Score 0 10/27/2023 [facility] [place] of Occupat ional Health - Occupational Stress [...] your living situation today? [facility] 10/31/2023 Education Answer Date [...] Sign Reading Time Taken Comments Blood Pressure 153/84 10/31/2023 1:45 AM MENTAL HEALTH COUNSELOR Pulse 40 10/31/2023 1:45 AM MENTAL HEALTH COUNSELOR Temperature 36.1 ??C (97 ??F) 10/31/2023 1:45 AM MENTAL HEALTH COUNSELOR Respiratory Rate 25 10/31/2023 1:45 AM MENTAL HEALTH COUNSELOR Oxygen Saturation 98% 10/31/2023 1:45 AM MENTAL HEALTH COUNSELOR Inhaled Oxygen Concentration - - Weight 82.2 kg (181 lb 3.5 oz) 10/30/2023 11:30 PM MENTAL HEALTH COUNSELOR Height - - Body Mass Index 26.84 04/05/2023 10:18 AM CDT documented in this encounter Medications at [...] 7 days. 14 capsule 0 10/27/2023 11/03/2023 carvediloL (COREG) 25 mg tablet Take 1 tablet (25 mg total) by mouth 2 (two) times a day. 180 tablet 3 10/12/2022 11/02/2023 levothyroxine (SYNTHROID, LEVOTHROID) 175 mcg tablet Take 1 tablet (175 mcg total) by mouth every morning before breakfast. 90 tablet 3 11/29/2022 11/24/2023 tamsulosin (FLOMAX) 0.4 mg 24 hr capsule Take 0.4 mg by mouth at bedtime. 0 12/12/2020 11/22/2023 documented as of this encounter ED Notes * Hernandez Bacon, P.A.-C. - 10/31/2023 1:13 AM CST SUBJECTIVE CHIEF COMPLAINT/REASON FOR VISIT Shortness of Breath and Chest Pain HISTORY OF PRESENT ILLNESS 78-year-old male with history of ischemic heart disease, coronary artery disease, congestive heart failure presents ER with complaints of worsening shortness of breath over the last several weeks. Patient states that he is unable to sleep because he becomes so short of breath after he falls asleep.He denies diaphoresis, pain, or radiation of any symptoms. He does have appointment set up tomorrowfor further evaluation in [place]. He does have mild increase in symptoms with exertion. Symptomsdo not resolve with rest. History provided by: Patient and significant other REVIEW OF SYSTEMS All pertinent systems reviewed and are negative except as discussed in HPI OBJECTIVE Initial Vitals Temperature 10/30/23 2330 36 ??C Pulse Rate 10/30/232329 (!) 54 Heart Rate 10/30/232329 (!) 48 Resp Rate 10/30/232329 20 Blood Pressure 10/30/232329 (!) 180/91 SpO2 10/30/232329 96 % Pain Score 10/30/232328 0 - No pain PHYSICAL EXAMINATION Constitutional: Nursing note and vitals reviewed. HENT: Head: Normocephalic and atraumatic. Right Ear: Tympanic membrane normal. Left Ear: Tympanic membrane normal. Nose: No nasal discharge. Mouth/Throat: Oropharynx is clear and moist. Mucous membranes are moist. Eyes: Pupils are equal, round, and reactive to light. Neck: Neck supple. Cardiovascular: Regular rhythm, S1 normal, S2 normal, normal heart sounds, normal pulses and normalperipheral perfusion. Bradycardia present. Pulses are palpable. Pulmonary/Chest: Effort normal and breath sounds normal. There is normal air entry. Tachypnea noted. Abdominal: Soft. Bowel sounds are normal. There is no hepatosplenomegaly. There is no abdominal tenderness. There is no rebound and no guarding. Musculoskeletal: Cervical back: Normal range of motion and neck supple. Neurological: Alert and oriented to person, place, and time. Skin: Skin is warm. No rash noted. ASSESSMENT/PLAN Assessment and Plan Patient is found to be significantly bradycardic with a heart rate between 35 and 45 in the emergency department. EKG does reveal marked sinus bradycardia with Mobitz type 2. Chest x-ray does not reveal significant new abnormalities. D-dimer is negative. Troponin is found to be 16 and will be repeated at receiving facility. Patient's BNP is elevated. Given his marked bradycardia, heart disease, congestive heart failure, and advanced age: Admission to Cardiology Services indicated. Discussed thecase with sas sql developer in [place] who agreed to accept the patient for transfer. He asked the patient received 20 of IV Lasix prior to transfer. Patient is agreeable with this transfer in his stable at time of transfer. Blood pressures have been stable. Differential diagnosis includes bradycardia, congestive heart failure, ischemic heart disease.. I reviewed the following external records: primary care records, prior outpatient labs, inpatient records, office records, prior outpatient radiology tests and outside ED records. Final Diagnoses: as of 10/31/23 0119 Shortness Of Breath Failure Heart (HCC) Bradycardia Escalation of care, including admission/observation, considered: Patient meets criteria for admission.. My ECG interpretation includes the following comments: Marked bradycardia. Multiple blocks.. My [employer] interpretation includes the following comments: No significant acute changes.. I discussed the management of the patient with: Admitting Provider and Cardiology. Hernandez Bacon P.A.-C. 10/31/23 0120 AL HEALTH COUNSELOR documented in this encounter Plan of Treatment Upcoming Encounters Date Type Department Care Team (Late st Contact Info) Description 12/13/2023 8:50 AM MENTAL HEALTH COUNSELOR Appointment Department of Laboratory Medicine and Pathology, [facility] in [address] [phone] Natasha Mullins APRN, Radha.N.Franklin., M.S., M.S.N. [address] [place] [phone] 12/13/2023 11:00 AM MENTAL HEALTH COUNSELOR Office Visit Department of Cardiovascular Medicine in [address] [phone] Natasha Mullins APRN, C.N.Franklin., M.S., M.S.N. [address] [place] [phone] 02/02/2024 9:15 AM CDT Appointment Department of Cardiovascular Diseases in [address] [phone] Fazal Reynoso M.D. [address] [place] [phone] documented as of this encounter Procedures Procedure Name Priority Date/Time Associated Diagnosis Comments D-DIMER, P STAT 10/31/2023 12:38 AM MENTAL HEALTH COUNSELOR TROPONIN T, 5TH GEN, P STAT 10/31/2023 12:38 AM MENTAL HEALTH COUNSELOR DX CHEST PORTABLE 1 VIEW RAD - Semiurgent (Fast; most ED patients; some inpatients) 10/31/2023 12:11 AM MENTAL HEALTH COUNSELOR NT-PRO B-TYPE NATRIURETIC PEPTIDE (BNP), S STAT 10/30/2023 11:48 PM MENTAL HEALTH COUNSELOR CBC WITH DIFFERENTIAL, B STAT 10/30/2023 11:48 PM MENTAL HEALTH COUNSELOR BASIC METABOLIC PANEL, S/P STAT 10/30/2023 11:48 PM MENTAL HEALTH COUNSELOR ECG STAT 10/30/2023 11:43 PM MENTAL HEALTH COUNSELOR documented in this encounter Results * (ABNORMAL) Troponin T, 5th Generation (10/31/2023 12:38 AM MENTAL HEALTH COUNSELOR) Pathologist [facility] Troponin T, 5th gen 16(H) <=15 ng/L 10/31/2023 1:00 AM MENTAL HEALTH COUNSELOR CNFL Blood (Blood, Venous) 10/31/2023 12:38 AM MENTAL HEALTH COUNSELOR 10/31/2023 12:39 AM MENTAL HEALTH COUNSELOR Hernandez Bacon P.A.-C. LAB BLOOD ADD-ON Performing Organization Address City/State/[facility] Co de Phone Number [facility] [address] [place] [phone], [facility] in [address] [address] * D-Dimer (10/31/2023 12:38 AM MENTAL HEALTH COUNSELOR) D-Dimer, P 307 <=500 ng/mL FEU 10/31/2023 1:01 AM MENTAL HEALTH COUNSELOR FL Comment: ----ADDITIONAL INFORMATION---- D-dimer values less than or equal to 500 ng/mL fibrinogen equivalent units (FEU) may be used in conjunction with clinical pre-test probability to exclude deep vein thrombosis (DVT) and/or pulmonary embolism (PE). Blood (Blood, Venous) 10/31/2023 12:38 AM MENTAL HEALTH COUNSELOR 10/31/2023 12:39 AM MENTAL HEALTH COUNSELOR Hernandez Bacon P.A.-C. LAB BLOOD ADD-ON [facility] [address] [place] [phone], [facility] CNFL [facility] in [address] [address] * DX Chest Portable 1 View (10/31/2023 12:11 AM MENTAL HEALTH COUNSELOR) Anatomical Region Laterality Modality Chest, Thoracic RST LOS, Tho racic ARZ LOS, Thoracic FLA LOS N/A Digital Radiography 10/31/2023 12:1 3 AM MENTAL HEALTH COUNSELOR Impressions 10/31/2023 12:19 AM MENTAL HEALTH COUNSELOR Comparison 10/21/2023. Normal heart size. Mild central pulmonary vascular congestion. Redemonstrated small hiatal hernia. Diffuse reticular parenchymal opacity throughout both lungs suggestive of interstitial edema. No dense consolidation, pleural effusion, or pneumothorax. Narrative 10/31/2023 12:19 AM MENTAL HEALTH COUNSELOR EXAM: DX CHEST PORTABLE 1 VIEW Procedure Note Linwood Moseley M.D. - 10/31/2023 EXAM: DX CHEST PORTABLE 1 VIEW IMPRESSION: Comparison 10/21/2023. Normal heart size. Mild central pulmonary vascularcongestion. Redemonstrated small hiatal hernia. Diffuse reticularparenchymal opacity throughout both lungs suggestive of interstitialedema. No dense consolidation, pleural effusion, or pneumothorax. Hernandez Bacon P.A.-C. IMG DIAGNOSTIC I MAGING PROCEDURES * (ABNORMAL) NT-Pro B-Type Natriuretic Peptide (BNP) (10/30/2023 11:48 PM MENTAL HEALTH COUNSELOR) NT-Pro BNP 2796(H) <=540 pg/mL 10/31/2023 12:22 AM MENTAL HEALTH COUNSELOR CNFL Comment: NT-proBNP values less than 300 pg/mL [...] absence of renal failure. Blood (Blood, Venous) 10/30/2023 11:48 PM MENTAL HEALTH COUNSELOR 10/30/2023 11:50 PM MENTAL HEALTH COUNSELOR Hernandez Bacon P.A.-C. LAB BLOOD ADD-ON [facility] [address] [place] [address], [facility] [place] [address] * (ABNORMAL) Basic Metabolic Panel (10/30/2023 11:48 PM MENTAL HEALTH COUNSELOR) Potassium, P 4.2 3.6 - 5.2 mmol/L 10/31/2023 12:14 AM MENTAL HEALTH COUNSELOR CNFL Sodium, P 126(L) 135 - 145 mmol/L 10/31/2023 12:14 AM MENTAL HEALTH COUNSELOR CNFL Chloride, P 94(L) 98 - 107 mmol/L 10/31/2023 12:14 AM MENTAL HEALTH COUNSELOR CNFL Bicarbonate, P 20(L) 22 - 29 mmol/L 10/31/2023 12:14 AM MENTAL HEALTH COUNSELOR CNFL Anion Gap, P 12 7 - 15 10/31/2023 12:14 AM MENTAL HEALTH COUNSELOR CNFL BUN (Blood Urea Nitrogen), P 18 8 - 24 mg/dL 10/31/2023 12:14 AM MENTAL HEALTH COUNSELOR CNFL Creatinine 0.73(L) 0.74 - 1.35 mg/dL 10/31/2023 12:14 AM MENTAL HEALTH COUNSELOR CNFL Estimated GFR (eGFR) >90 >=60 mL/min/BSA 10/31/2023 12:14 AM MENTAL HEALTH COUNSELOR CNFL Comment: Estimated GFR calculated using the 2020 CKD_EPI creatinine equation. Calcium, Total, P 8.4(L) 8.8 - 10.2 mg/dL 10/31/2023 12:14 AM MENTAL HEALTH COUNSELOR CNFL Glucose, P 127 70 - 140 mg/dL 10/31/2023 12:14 AM MENTAL HEALTH COUNSELOR CNFL Blood (Blood, Venous) 10/30/2023 11:48 PM MENTAL HEALTH COUNSELOR 10/30/2023 11:50 PM MENTAL HEALTH COUNSELOR Hernandez Bacon P.A.-C. LAB BLOOD ADD-ON [facility] [address] [place] [phone], [facility] [address] * (ABNORMAL) CBC with Differential, Blood (10/30/2023 11:48 PM MENTAL HEALTH COUNSELOR) Hemoglobin 12.8(L) 13.2 - 16.6 g/dL 10/30/2023 11:58 PM MENTAL HEALTH COUNSELOR CNFL Hematocrit 37.2(L) 38.3 - 48.6 % 10/30/2023 11:58 PM MENTAL HEALTH COUNSELOR CNFL Erythrocytes 4.19(L) 4.35 - 5.65 x10(12)/L 10/30/2023 11:58 PM MENTAL HEALTH COUNSELOR CNFL MCV 88.8 78.2 - 97.9 fL 10/30/2023 11:58 PM MENTAL HEALTH COUNSELOR CNFL RBC Distrib Width 12.8 11.8 - 14.5 % 10/30/2023 11:58 PM MENTAL HEALTH COUNSELOR CNFL Platelet Count 192 135 - 317 x10(9)/L 10/30/2023 11:58 PM MENTAL HEALTH COUNSELOR CNFL Leukocytes 8.2 3.4 - 9.6 x10(9)/L 10/30/2023 11:58 PM MENTAL HEALTH COUNSELOR CNFL Neutrophils 5.70 1.56 - 6.45 x10(9)/L 10/30/2023 11:58 PM MENTAL HEALTH COUNSELOR CNFL Lymphocytes 1.32 0.95 - 3.07 x10(9)/L 10/30/2023 11:58 PM MENTAL HEALTH COUNSELOR CNFL Monocytes 0.87(H) 0.26 - 0.81 x10(9)/L 10/30/2023 11:58 PM MENTAL HEALTH COUNSELOR CNFL Eosinophils 0.27 0.03 - 0.48 x10(9)/L 10/30/2023 11:58 PM MENTAL HEALTH COUNSELOR CNFL Basophils <0.04 0.01 - 0.08 x10(9)/L 10/30/2023 11:58 PM MENTAL HEALTH COUNSELOR CNFL Blood (Blood, Venous) 10/30/2023 11:48 PM MENTAL HEALTH COUNSELOR 10/30/2023 11:50 PM MENTAL HEALTH COUNSELOR Hernandez Bacon P.A.-C. LAB BLOOD ADD-ON [facility] [address] [place] [phone], [facility] CNFL [facility] in [address] [phone] * ECG 12 Lead (10/30/2023 11:43 PM MENTAL HEALTH COUNSELOR) Ventricular Rate ECG/Min 43 BPM MUSE DC Interval 216 ms MUSE QRSD Interval 158 ms MUSE QT Interval 472 ms MUSE QTC Interval 400 ms MUSE P [place] 54 degrees MUSE R [place] -56 degrees MUSE T Wave [place] 29 degrees MUSE 10/30/2023 11:4 3 PM MENTAL HEALTH COUNSELOR 10/31/2023 8:42 AM MENTAL HEALTH COUNSELOR Impressions MUSE - 10/31/2023 12:12 AM MENTAL HEALTH COUNSELOR Marked sinus bradycardia with 2:1 A-V conduction Cannot rule out Anteroseptal infarct 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 Narrative Procedure Note Cornell Zavala M.D. 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 Hernandez Bacon P.A.-C. ECG ORDERABLES MUSE NA documented in this encounter Visit Diagnoses Diagnosis Shortness Of Breath- Primary Failure Heart (HCC) Bradycardia documented in this encounter Administered Medications Inactive Administered Medications - up to 3 most recent administrations Medication Order MAR Action Action Date Dose Rate Site furosemide injection 20 mg (LASIX) 20 mg, intravenous, Once, On Tue10/31/23 at 0114, For 1 dose, Adults: Doses less than 120 mg: IV push over 20 mg/minute. Doses 120 mg or greater: IVPB at 4 mg/minute. Peds/Neonates: Doses less than 120 mg over 0.5 mg/kg/minute. Doses 120 mg or greater: IVPB at 4 mg/minute. Given 10/31/2023 1:19 AM MENTAL HEALTH COUNSELOR 20 mg Left Antecubital documented in this encounter Active and Recently Administered Medications Times are shown in MENTAL HEALTH COUNSELOR. Scheduled Medication Order 10/29/2023 10/30/2023 10/31/2023 furosemide injection 20 mg (LASIX) (COMPLETED) 20 mg, intravenous, Once, On Tue10/31/23 at 0114, For 1 dose, Adults: Doses less than 120 mg: IV push over 20 mg/minute. Doses 120 mg or greater: IVPB at 4 mg/minute. Peds/Neonates: Doses less than 120 mg over 0.5 mg/kg/minute. Doses 120 mg or greater: IVPB at 4 mg/minute. 0119 (Given - Provid er: Jovany Grant R.N.) documented in this encounter Care Teams Lawn Care Technician Relationship Specialty Start Date End Date Elsewhere, Pcp PCP - General Family Medicine 10/25/18 documented as of this encounter
--- OUTSIDE RECORDS SUMMARY | 2023-12-09 00:08 | XMS_ITS | Encounter Summary ---
Author Name Unknown Organization [facility] Address [address] [place] [address] Care Team Providers Care Electrical Line Worker Name Role Phone Elsewhere, Pcp Primary Care Provider Unavailabl e Encounter Details Date Type Department Care Team (Latest Contact Info) Description 10/31/2023 Intake [facility] Social History Tobacco Use Types Packs/Day Years [...] re latives? Once a week 05/31/2020 Attends [employer] Services Not on file 05/31 Active Member [...] Answer Date Recorded PHQ-2 Score 0 10/27/2023 [facility] [place] of Occupat ional [place] - Occupational Stress Questionnaire Answer Date Recorded [...] st Contact Info) Description 12/13/2023 8:50 AM FURNACE INSTALLER HELPER Appointment Department of Laboratory Medicine and Pathology, [facility], in [place], [place] [address] [place] [phone] Natasha Mullins APRN, Justin, M.S., M.S.N. [address] [place] [phone] 12/13/2023 11:00 AM FURNACE INSTALLER HELPER Office Visit Department of Cardiovascular Medicine in [place], [place] [address] [place] [phone] Natasha Mullins APRN, Niranjan., M.S., M.S.N. [address] [place] [phone] 02/02/2024 9:15 AM CDT Appointment Department of Cardiovascular Diseases in [place], [place] [address] [place] [phone] Fazal Reynoso M.D. [address] [place] [phone] documented as of this encounter Visit Diagnoses Not on filedocumented in this encounter Care Teams Electrical Line Worker Relationship Specialty Start Date End Date Elsewhere, Pcp PCP - General Family Medicine 10/25/18 documented as of this encounter
--- OUTSIDE RECORDS SUMMARY | 2023-12-09 00:08 | XMS_ITS | Encounter Summary ---
Author Name Unknown Organization [facility] Address [address] [place] [id number] Care Team Providers Care Horizontal Boring Mill Set Up Operator Name Role Phone Elsewhere, Pcp Primary Care Provider Unavailabl e Encounter Details Date Type Department Care Team (Late st Contact Info) Description 10/31/2023 Clinical Communication Department of Urology in [place], [place] [address] [place] [phone] Margaux Adams D.O. [address] [place] [phone] Social History Tobacco Use Types Packs/Day Years Used Date Smoking Tobacco: Never Passive Smoke Exposure: Past Smokeless Tobacco: Never Passive Exposure Comments:Gr owing up for Many years - Father Alcohol Use Standard Drinks/Week Comments No 0 (1 standard drink = 0.6 oz pur e alcohol) [facility] Utilities Answer Date Recorded In the past 12 months has e [employer], gas, oil, or water [employer] threatened to shut off services in your [...] re latives? Once a week 05/31/2020 Attends Holiness Services Not on file 05/31 Active Member [...] Answer Date Recorded PHQ-2 Score 0 10/27/2023 [facility] [place] of Occupat ional Health - Occupational Stress [...] your living situation today? I have a [facility] place to live 11/29/2023 Education Answer [...] st Contact Info) Description 12/13/2023 8:50 AM FRAME RUNNER Appointment Department of Laboratory Medicine and Pathology, [facility] in [place], [place] [address] [place] [phone] Natasha Mullins APRN, C.N.Franklin., M.S., M.S.N. [address] [place] [phone] 12/13/2023 11:00 AM FRAME RUNNER Office Visit Department of Cardiovascular Medicine in [place], [place] [address] [place] [phone] Natasha Mullins APRN, C.NRenetta, M.S., M.S.N. [address] [place] [phone] 02/02/2024 9:15 AM CDT Appointment Department of Cardiovascular Diseases in [place], [place] [address] [place] [phone] Fazal Reynoso M.D. [address] [place] [phone] documented as of this encounter Visit Diagnoses Not on filedocumented in this encounter Additional Health Concerns Infection Onset Date Last Indicated Resolved Time COVID19 Pending 11/28/2023 11/28/2023 11/28/2023 9 :33 PM FRAME RUNNER documented as of this encounter Care Teams Horizontal Boring Mill Set Up Operator Relationship Specialty Start Date End Date Elsewhere, Pcp PCP - General Family Medicine 10/25/18 documented as of this encounter
--- OUTSIDE RECORDS SUMMARY | 2023-12-09 00:08 | XMS_ITS | Encounter Summary ---
Author Name Unknown Organization [facility] Address [address] [place] [address] Care Team Providers Care It Technical Architect Name Role Phone Elsewhere, Pcp Primary Care Provider Unavailabl e Reason for Visit * Reason Comments Urinary Symptom Per NL Other Patient was at [facility] in [place] on October 03, they told him he had bladder stones. * Appointment Request (Routine) - Closed Specialty Diagnoses / Procedures Referred By Miguel t Referred To Contact Family Medicine Referral ID Status Reason Start Date Expiration Date Visits Re quested Visits Authorized [id number] Closed 10/27/2023 10/26/2024 1 1 Encounter Details Date Type Department Care Team (Late st Contact Info) Description 10/27/2023 1:30 PM WORKDAY SENIOR ASSOCIATE Office Visit Department of Family Medicine, [facility], in [place] [address] [place] [phone] Dayami Murillo, PCarmineACarmine-CCarmine [address] [place] [phone] Dysuria (Primary Dx) Social History Tobacco Use Types [...] Answer Date Recorded PHQ-2 Score 0 10/27/2023 [facility] of Occupat ional Health - [...] your living situation today? I have a [facility] place to live 10/27/2023 Education Answer Date Recorded What is the [...] Sign Reading Time Taken Comments Blood Pressure 143/70 10/27/2023 1:31 PM WORKDAY SENIOR ASSOCIATE Pulse 37 10/27/2023 1:31 PM WORKDAY SENIOR ASSOCIATE Temperature 36.1 ??C (97 ??F) 10/27/2023 1:27 PM WORKDAY SENIOR ASSOCIATE Respiratory Rate 18 10/27/2023 1:27 PM WORKDAY SENIOR ASSOCIATE Oxygen Saturation - - Inhaled Oxygen Concentration - - Weight - - Height - - Body Mass Index - - documented in this encounter Progress Notes * Dayami Murillo P.A.-C. - 10/27/2023 1:30 PM CST SUBJECTIVE CHIEF COMPLAINT/REASON FOR VISIT Chief Complaint Patient presents with Urinary Symptom Per NL Other Patient was at [facility] in [place] on October 03, they told him he had bladder stones. HISTORY OF PRESENT ILLNESS Levi Khanna is a pleasant 78 y.o. male who presents to the clinic today for evaluation of dysuria. Patient reports history of stone in his bladder. From cystoscopy report it looks like he had a 4-5 mm calculus with in his urethra which was pushed into his bladder. He does have follow-up with Urology scheduled next week. Patient reports last night / this morning he developed pain with urination. He does have baseline urgency. No fevers or chills. He has been using Tylenol for treatment. REVIEW OF SYSTEMS Pertinent positive ROS are listed above in HPI. 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 Iodinated Contrast Media Itching Possible adverse reaction to iodinated contrast given at [facility] in 2006. Visi [address] scan on 12/12/13. No reaction noted. Mold Other (see comments) Unknown. Penicillins Other (see comments) Unknown. Pollen Extracts Other (see comments) Shellfish Containing Products Nausea And Vomiting House Dust Mite Other (see comments) Iodine Rash Penicillin Itching Pneumococcal Vaccine Other (see comments) and Headache Headache and body ache CURRENT MEDICATIONS Current Outpatient Medications: acetaminophen (TYLENOL) 500 [...] a day., Disp: 180 tablet, Rfl: 3 cetirizine (ZyrTEC) 10 mg tablet, Take 10 [...] capsule, Take 0.4 mg by mouth daily. , Disp: , Rfl: OBJECTIVE VITAL SIGNS Vitals: 10/27/23 1331 BP: 143/70 Pulse: (!) 37 Resp: Temp: PHYSICAL EXAMINATION General: Well-nourished, well-developed 78 y.o. in no apparent distress. Awake, alert, age appropriate. LABS Recent Results (from the past 24 hour(s)) Urinalysis with Microscopic: Urine, Midstream Collection Time: 10/27/23 1:40 PM Result Value Source Urine, Urine, Midstream Clarity Cloudy (A) Color Yellow Blood Small (A) Nitrite Negative Leukocyte Esterase Large (A) Protein 30 (A) Glucose Negative Ketones, QI(U) Negative Bilirubin Negative pH 6.5 Specific [place] 1.015 Urobilinogen 1.0 White Blood Cells >100 (A) Red Blood Cells 3-10 (A) Dysmorphic Red Blood Cells <=25 Hyaline Casts 1-3 Bacteria Present (A) ASSESSMENT / PLAN IMPRESSION/REPORT/PLAN: #1 Dysuria -UA and urine culture ordered today. -UA with concern for urinary tract infection. Will treat with Macrobid twice daily x7 days. If any antibiotic changes needed based on steps as patient will be contacted. Continue with good oral hydration. Patient has follow-up with Urology next week. All questions have been answered. Patient demonstrated understanding and verbalized agreement with the plan. Total time spent is 20 minutes. Dayami Murillo P.A.-C. DAY SENIOR ASSOCIATE documented in this encounter Plan of Treatment Upcoming Encounters Date Type Department Care Team (Late st Contact Info) Description 12/13/2023 8:50 AM WORKDAY SENIOR ASSOCIATE Appointment Department of Laboratory Medicine and Pathology, [facility], in [place], [place] [address] [place] [phone] Natasha Mullins APRN, Justin, M.S., M.S.N. [address] [place] [phone] 12/13/2023 11:00 AM WORKDAY SENIOR ASSOCIATE Office Visit Department of Cardiovascular Medicine in [place], [place] [address] [place] [phone] Natasha Mullins APRN, Niranjan., M.S., M.S.N. [address] [place] [phone] 02/02/2024 9:15 AM CDT Appointment Department of Cardiovascular Diseases in [place], [place] [address] [place] [phone] Fazal Reynoso M.D. [address] [place] [phone] documented as of this encounter Procedures Procedure Name Priority Date/Time Associated Diagnosis Comments BACTERIAL CULTURE, AEROBIC + SUSC, URINE Routine 10/27/2023 1:40 PM WORKDAY SENIOR ASSOCIATE Dysuria documented in this encounter Results * (ABNORMAL) Bacterial Culture, Aerobic + Susceptibility, Urine (10/27/2023 1:40 PM WORKDAY SENIOR ASSOCIATE) Urine Culture Mixed microbiota (A) 10/29/2023 9:19 AM WORKDAY SENIOR ASSOCIATE MKTO Urine (Urine, Midstream) 10/27/2023 1:40 PM WORKDAY SENIOR ASSOCIATE 10/27/2023 7:07 PM WORKDAY SENIOR ASSOCIATE Comment:Specimen Source Site : Urine Dayami Murillo P.A.-C. LAB MICROBIOLOGY - GENERAL ORDERABLES [facility] [address] [place] [address], [facility] MKTO [facility] [place] [address] [place] [address] * (ABNORMAL) Urinalysis with Microscopic: Urine, Midstream (10/27/2023 1:40 PM WORKDAY SENIOR ASSOCIATE) Source Urine, Urine, Midstream 10/27/2023 2:22 PM WORKDAY SENIOR ASSOCIATE FB60 Clarity Cloudy(A) Clear 10/27/2023 2:23 PM WORKDAY SENIOR ASSOCIATE FB60 Color Yellow 10/27/2023 2:23 PM WORKDAY SENIOR ASSOCIATE FB60 Comment: ----REFERENCE VALUE---- Colorless Yellow Sharon Blood Small(A) Negative 10/27/2023 2:23 PM WORKDAY SENIOR ASSOCIATE FB60 Nitrite Negative Negative 10/27/2023 2:23 PM WORKDAY SENIOR ASSOCIATE FB60 Leukocyte Esterase Large(A) Negative 10/27/2023 2:23 PM WORKDAY SENIOR ASSOCIATE FB60 Protein 30(A) mg/dL 10/27/2023 2:23 PM WORKDAY SENIOR ASSOCIATE FB60 Comment: ----REFERENCE VALUE---- Negative Trace Glucose Negative Negative mg/dL 10/27/2023 2:23 PM WORKDAY SENIOR ASSOCIATE FB60 Ketones, QI(U) Negative Negative mg/dL 10/27/2023 2:23 PM WORKDAY SENIOR ASSOCIATE FB60 Bilirubin Negative Negative 10/27/2023 2:23 PM WORKDAY SENIOR ASSOCIATE FB60 pH 6.5 5.0 - 8.0 10/27/2023 2:23 PM WORKDAY SENIOR ASSOCIATE FB60 Specific [place] 1.015 1.001 - 1.035 10/27/2023 2:23 PM WORKDAY SENIOR ASSOCIATE FB60 Urobilinogen 1.0 0.2 - 1.0 mg/dL 10/27/2023 2:23 PM WORKDAY SENIOR ASSOCIATE FB60 White Blood Cells >100(A) /hpf 10/27/2023 2:33 PM WORKDAY SENIOR ASSOCIATE FB60 Comment: ----REFERENCE VALUE---- Males: 0-3 Females: 0-10 Unknown: 0-10 Red Blood Cells 3-10(A) 0 - 2 /hpf 2:33 PM WORKDAY SENIOR ASSOCIATE FB60 Dysmorphic Red Blood Cells <=25 <=25 % 10/27/2023 2:33 PM WORKDAY SENIOR ASSOCIATE FB60 Hyaline Casts 1-3 /lpf 10/27/2023 2:33 PM WORKDAY SENIOR ASSOCIATE FB60 Bacteria Present(A) None Seen 10/27/2023 2:33 PM WORKDAY SENIOR ASSOCIATE FB60 Urine (Urine, Midstream) 10/27/2023 1:40 PM WORKDAY SENIOR ASSOCIATE 10/27/2023 2:20 PM WORKDAY SENIOR ASSOCIATE Dayami Murillo P.A.-C. LAB URINE ORDERABL ES [facility] [address] [place] [address], [facility] FB60 [facility] in [place] [address] [place] [address] documented in this encounter Visit Diagnoses Diagnosis Dysuria- Primary documented in this encounter Care Teams It Technical Architect Relationship Specialty Start Date End Date Elsewhere, Pcp PCP - General Family Medicine 10/25/18 documented as of this encounter
--- OUTSIDE RECORDS SUMMARY | 2023-12-09 00:08 | XMS_ITS | Encounter Summary ---
Author Name Unknown Organization [facility] Address [address] [place] [address] Care Team Providers Care Sales Training Representative Name Role Phone Elsewhere, Pcp Primary Care Provider Unavailabl e Encounter Details Date Type Department Care Team (Latest Contact Info) Description 10/27/2023 1:37 PM CASINO BEVERAGE SERVER - 10/27/2023 11:59 PM CASINO BEVERAGE SERVER Hospital Encounter Department of Laboratory Medicine in [place] [address] [place] [phone] Dayami Murillo, P.A.-C. [address] [phone] Dysuria Discharge Disposition: Home or Self Care Social [...] re latives? Once a week 05/31/2020 Attends [employer] Services Not on file 05/31 Active Member [...] Answer Date Recorded PHQ-2 Score 0 10/27/2023 [facility] of Occupat ional Health - Occupational Stress [...] a [facility] place to live 10/27/2023 Education Answer [...] as needed for indigestion or heartburn. 0 cetirizine (ZyrTEC) 10 mg tablet Take 10 [...] 12/12/2020 11/22/2023 documented as of this encounter Plan of Treatment Upcoming Encounters Date Type Department Care Team (Late st Contact Info) Description 12/13/2023 8:50 AM CASINO BEVERAGE SERVER Appointment Department of Laboratory Medicine and Pathology, [facility] in [place], [place] [address] [place] [phone] Ntaasha Mullins APRN, C.N.P., M.S., M.S.N. [address] [place] [phone] 12/13/2023 11:00 AM CASINO BEVERAGE SERVER Office Visit Department of Cardiovascular Medicine in [place], [place] [address] [place] [phone] Natasha Mullins APRN, C.N.P., M.S., M.S.N. [address] [place] [phone] 02/02/2024 9:15 AM CDT Appointment Department of Cardiovascular Diseases in [place], [place] [address] [place] [phone] Fazal Reynoso M.D. [address] [place] [phone] documented as of this encounter Procedures Procedure Name Priority Date/Time Associated Diagnosis Comments URINALYSIS WITH MICROSCOPIC Routine 10/27/2023 1:40 PM CASINO BEVERAGE SERVER Dysuria documented in this encounter Results * (ABNORMAL) Urinalysis with Microscopic: Urine, Midstream (10/27/2023 1:40 PM CASINO BEVERAGE SERVER) Source Urine, Urine, Midstream 10/27/2023 2:22 PM CASINO BEVERAGE SERVER FB60 Clarity Cloudy(A) Clear 10/27/2023 2:23 PM CASINO BEVERAGE SERVER FB60 Color Yellow 10/27/2023 2:23 PM CASINO BEVERAGE SERVER FB60 Comment: ----REFERENCE VALUE---- Colorless Yellow Sharon Blood Small(A) Negative 10/27/2023 2:23 PM CASINO BEVERAGE SERVER FB60 Nitrite Negative Negative 10/27/2023 2:23 PM CASINO BEVERAGE SERVER FB60 Leukocyte Esterase Large(A) Negative 10/27/2023 2:23 PM CASINO BEVERAGE SERVER FB60 Protein 30(A) mg/dL 10/27/2023 2:23 PM CASINO BEVERAGE SERVER FB60 Comment: ----REFERENCE VALUE---- Negative Trace Glucose Negative Negative mg/dL 10/27/2023 2:23 PM CASINO BEVERAGE SERVER FB60 Ketones, QI(U) Negative Negative mg/dL 10/27/2023 2:23 PM CASINO BEVERAGE SERVER FB60 Bilirubin Negative Negative 10/27/2023 2:23 PM CASINO BEVERAGE SERVER FB60 pH 6.5 5.0 - 8.0 10/27/2023 2:23 PM CASINO BEVERAGE SERVER FB60 Specific [place] 1.015 1.001 - 1.035 10/27/2023 2:23 PM CASINO BEVERAGE SERVER FB60 Urobilinogen 1.0 0.2 - 1.0 mg/dL 10/27/2023 2:23 PM CASINO BEVERAGE SERVER FB60 White Blood Cells >100(A) /hpf 10/27/2023 2:33 PM CASINO BEVERAGE SERVER FB60 Comment: ----REFERENCE VALUE---- Males: 0-3 Females: 0-10 Unknown: 0-10 Red Blood Cells 3-10(A) 0 - 2 /hpf 2:33 PM CASINO BEVERAGE SERVER FB60 Dysmorphic Red Blood Cells <=25 <=25 % 10/27/2023 2:33 PM CASINO BEVERAGE SERVER FB60 Hyaline Casts 1-3 /lpf 10/27/2023 2:33 PM CASINO BEVERAGE SERVER FB60 Bacteria Present(A) None Seen 10/27/2023 2:33 PM CASINO BEVERAGE SERVER FB60 Urine (Urine, Midstream) 10/27/2023 1:40 PM CASINO BEVERAGE SERVER 10/27/2023 2:20 PM CASINO BEVERAGE SERVER Dayami Murillo P.A.-C. LAB URINE ORDERABL ES [facility] [address] [place] [address], [facility] FB60 [facility] in [place] [address] [place] [address] documented in this encounter Visit Diagnoses Diagnosis Dysuria documented in this encounter Care Teams Sales Training Representative Relationship Specialty Start Date End Date Elsewhere, Pcp PCP - General Family Medicine 10/25/18 documented as of this encounter
--- OUTSIDE RECORDS SUMMARY | 2023-12-09 00:09 | XMS_ITS | Encounter Summary ---
Author Name Unknown Organization [facility] Address [address] [place] [phone] Care Team Providers Care Photo Optics Technician Name Role Phone Elsewhere, Pcp Primary Care Provider Unavailabl e Reason for Visit * Reason Comments Med Refill Encounter Details Date Type Department Care Team ([facility] st Contact Info) Description 10/20/2023 Refill Department of Cardiovascular Medicine in [place], [place] [address] [place] [phone] Natasha Mullins APRN, C.N.P., M.S., M.S.N. [address] [place] [phone] Med Refill Social History Tobacco Use Types [...] re latives? Once a week 05/31/2020 Attends Sikhism Services Not on file 05/31 Active Member [...] care, and heating? Not hard at all 05/31/2020 [facility] of Occupat ional Health - Occupational Stress Questionnaire Answer Date Recorded Do you feel stress - tense, restless, nervous, or anxious, or unable to sleep at night because your mind is troubled all the time - these days? Only a little 05/31/2020 Exercise Vital Sign Answer Date Recorde d Days of Exercise per Week 3 days 2018 Minutes of Exercise per Session 20 min 10/15/2019 Hunger Vital Sign Answer Date Recorded Worried About Running Out of Food in the Last Ye ar Never true 10/15/2019 Ran Out of Food in the Last Year Never true 10/15/2019 PRAPARE - Transportation Answer Date Re corded Lack of Transportation (Medical) No 10/15/2019 Lack of Transportation (Non-Medical) No 10/15/2019 Nutrition Answer Date Recorded Nutrition: EVOO Fat Source Unknown 07/14 Nutrition: Servings of Fruits/Vegetables per Day Not on file 07/14/2023 Dental Answer Date Recorded Dental: Regular Dentist Unknown 07/14/20 23 Education Answer Date Recorded What is the [...] st Contact Info) Description 12/13/2023 8:50 AM RESEARCH CONTRACTS SUPERVISOR Appointment Department of Laboratory Medicine and Pathology, [facility] in [place], [place] [address] [place] [phone] Natasha Mullins APRN, C.N.P., M.S., M.S.N. [address] [place] [phone] 12/13/2023 11:00 AM RESEARCH CONTRACTS SUPERVISOR Office Visit Department of Cardiovascular Medicine in [place], [place] [address] [place] [phone] Natasha Mullins APRN, Justin, M.S., M.S.N. [address] [place] [phone] 02/02/2024 9:15 AM CDT Appointment Department of Cardiovascular Diseases in [address] [phone] Fazal Reynoso M.D. [address] [place] [phone] documented as of this encounter Visit Diagnoses Not on filedocumented in this encounter Care Teams Photo Optics Technician Relationship Specialty Start Date End Date Elsewhere, Pcp PCP - General Family Medicine 10/25/18 documented as of this encounter
--- OUTSIDE RECORDS SUMMARY | 2023-12-09 00:09 | XMS_ITS | Encounter Summary ---
Author Name Unknown Organization [facility] Address [address] [place] [phone] Care Team Providers Care Tariff Publishing Agent Name Role Phone Elsewhere, Pcp Primary Care Provider Unavailabl e Reason for Visit * Outpatient (Routine) - Closed Specialty Diagnoses / Procedures Referred By Miguel arzola Referred To Contact Diagnoses Nodule Prostate Retention Urinary Procedures URO Uroflow [email or web address] APRN, C.N.P., D.N.P., M.S. [address] [place] [phone] [facility] Referral ID Status Reason Start Date Expiration Date Visits Re quested Visits Authorized [id number] Closed 09/08/2023 09/07/2024 1 1 Encounter Details Date Type Department Care Team (Latest Contact Info) Description 10/03/2023 11:00 AM COMBAT SYSTEMS OPERATOR [employer] Procedure visit Department of Urology in [place], [place] [address] [place] [phone] [email or web address] APRN, C.N.P., D.N.P., M.S. [address] [place] [phone] Sherri Lopez L.P.NCarmine Incomplete Bladder Emptying (Primary Dx); Nodule Prostate; Retention Urinary Social History Tobacco [...] re latives? Once a week 05/31/2020 Attends [employer] Services Not on file 05/31 Active Member [...] and heating? Not hard at all 05/31/2020 [facility] of Occupat ional Health - Occupational Stress [...] as of this encounter Progress Notes * Sherri Lopez L.P.N. - 10/03/2023 11:00 AM CST CHIEF COMPLAINT Patient here for a complex uroflow via calibrated electronic equipment and a residual urine check by ultrasound. IMPRESSION/REPORT/PLAN [facility] [place], C.N.P., D.N.P., M.S. ordered the patient to have a complex uroflow with residual urine check via ultrasound. Patient had a moderate urge to void. Uroflow was completed at this time. Patient voided 193 mL's and had a ultrasound residual of 170 mL's. Patient rates pain at 0 on the 0 to 10 pain scale post procedure. AT SYSTEMS OPERATOR [employer] documented in this encounter Procedure Notes * Orville Jeter M.D. - 10/03/2023 11:00 AM CSTAssociated Order(s): URO UROFLOW Reason for visit: UROFLOW The patient is here for a complex uroflow via calibrated electronic equipment and residual urine checked by ultrasound. Indications: Incomplete bladder emptying Peak flow: 7.8 ml/sec Average flow: 4 ml/sec Voiding time: 49.3 sec Total voided volume: 193 mls Continuous (fluctuating) flow pattern Residual urine: 170 ml by ultrasound Impression: Abnormal Uroflow. Elevated post void residual with low Qmax. Differential diagnosis includes bladder outlet obstruction vs hypocontractile bladder. Clinical correlation is recommended. AT SYSTEMS OPERATOR [employer] documented in this encounter Plan of Treatment Upcoming Encounters Date Type Department Care Team (Late st Contact Info) Description 12/13/2023 8:50 AM COMBAT SYSTEMS OPERATOR [employer] Appointment Department of Laboratory Medicine and Pathology, [facility], in [place], [place] [address] [place] [phone] Natasha Mullins APRN, C.N.P., M.S., M.S.N. [address] [place] [phone] 12/13/2023 11:00 AM COMBAT SYSTEMS OPERATOR [employer] Office Visit Department of Cardiovascular Medicine in [place], [place] [address] [place] [phone] Natasha Mullins APRN, C.N.P., MCarmineS., M.S.N. [address] [place] [phone] 02/02/2024 9:15 AM CDT Appointment Department of Cardiovascular Diseases in [place], [place] [address] [place] [phone] Fazal Reynoso M.D. [address] [place] [phone] documented as of this encounter Procedures Procedure Name Priority Date/Time Associated Diagnosis Comments URO UROFLOW Routine 10/03/2023 11:00 AM COMBAT SYSTEMS OPERATOR [employer] Nodule Prostate Retention Urinary documented in this encounter Results * URO Uroflow (10/03/2023 11:00 AM COMBAT SYSTEMS OPERATOR [employer]) Narrative Orville Jeter M.D. - 10/03/2023 11:00 AM COMBAT SYSTEMS OPERATOR [employer] Orville Jeter M.D. ? 10/03/2023 12:31 PM [...] vs hypocontractile bladder. Clinical correlation is recommended. [facility] Danny MCCLELLANNCarmineP., D.N.P., M. S. UROLOGY ORDERABLES documented in this encounter Visit Diagnoses Diagnosis Incomplete Bladder Emptying- Primary Nodule Prostate Retention Urinary documented in this encounter Care Teams Tariff Publishing Agent Relationship Specialty Start Date End Date Elsewhere, Pcp PCP - General Family Medicine 10/25/18 documented as of this encounter
--- OUTSIDE RECORDS SUMMARY | 2023-12-09 00:09 | XMS_ITS | Encounter Summary ---
Author Name Unknown Organization [facility] Address [address] [place] [address] Care Team Providers Care Staple Laster Name Role Phone Elsewhere, Pcp Primary Care Provider Unavailabl e Encounter Details Date Type Department Care Team (Late st Contact Info) Description 10/03/2023 3:35 PM BLUE LINE TRIMMER Ancillary Procedure Department of Urology Social History Tobacco Use Types Packs/Day Years [...] re latives? Once a week 05/31/2020 Attends Taoism Services Not on file 05/31 Active Member [...] and heating? Not hard at all 05/31/2020 [facility] of Occupat ional Health - Occupational Stress [...] st Contact Info) Description 12/13/2023 8:50 AM BLUE LINE TRIMMER Appointment Department of Laboratory Medicine and Pathology, [facility] in [place], [place] [address] [place] [phone] Natasha Mullins APRN, C.N.P., M.S., M.S.N. [address] [place] [phone] 12/13/2023 11:00 AM BLUE LINE TRIMMER Office Visit Department of Cardiovascular Medicine in [place], [place] [address] [place] [phone] Natasha Mullins APRN, C.N.P., M.S., M.S.N. [address] [place] [phone] 02/02/2024 9:15 AM CDT Appointment Department of Cardiovascular Diseases in [place], [place] [address] [place] [phone] Fazal Reynoso M.D. [address] [place] [phone] documented as of this encounter Procedures Procedure Name Priority Date/Time Associated Diagnosis Comments UROLOGY IMAGE EXAM Routine 10/03/2023 1: 56 PM BLUE LINE TRIMMER documented in this encounter Results * Non-Radiology Image-Urology Image Exam (10/03/2023 1:56 PM BLUE LINE TRIMMER) 10/03/2023 3:34 PM BLUE LINE TRIMMER Narrative [facility] - 10/03/2023 1:56 PM BLUE LINE TRIMMER This order has been created and auto-finalized to support the import of images acquired without order. The clinical documentation to support these images can be found on the encounter that produced images. Provider Not In System IMG NON RAD IMAGI NG PROCEDURES [facility] NA documented in this encounter Visit Diagnoses Not on filedocumented in this encounter Care Teams Staple Laster Relationship Specialty Start Date End Date Elsewhere, Pcp PCP - General Family Medicine 10/25/18 documented as of this encounter
--- OUTSIDE RECORDS SUMMARY | 2023-12-09 00:09 | XMS_ITS | Encounter Summary ---
Author Name Unknown Organization [facility] Address [address] [place] [address] Care Team Providers Care Director Of Claims Name Role Phone Elsewhere, Pcp Primary Care Provider Unavailabl e Reason for Visit * Reason Comments Shortness of Breath Encounter Details Date Type Department Care Team (Late st Contact Info) Description 10/21/2023 8:13 AM OPERATING ROOM REGISTERED NURSE - 10/21/2023 9:37 AM OPERATING ROOM REGISTERED NURSE [facility] [address] [place] [phone] Orville Khalil, P.A.-C., P.A. [address] [place] [phone] Beat Premature Ventricular (Primary Dx); Hyponatremia; Failure Heart (HCC); Dyspnea On Exertion Discharge Disposition: Home or Self Care Social [...] and heating? Not hard at all 05/31/2020 [facility] of Occupat ional Health - Occupational Stress [...] Sign Reading Time Taken Comments Blood Pressure 95/79 10/21/2023 9:30 AM OPERATING ROOM REGISTERED NURSE Pulse 61 10/21/2023 9:30 AM OPERATING ROOM REGISTERED NURSE Temperature 36.8 ??C (98.2 ??F) 10/21/2023 8:18 AM CS T Respiratory Rate 18 10/21/2023 9:30 AM OPERATING ROOM REGISTERED NURSE Oxygen Saturation 95% 10/21/2023 9:30 AM OPERATING ROOM REGISTERED NURSE Inhaled Oxygen Concentration - - Weight 79.3 kg (174 lb 13.2 oz) 10/21/2023 8:17 AM OPERATING ROOM REGISTERED NURSE Height - - Body Mass Index 25.89 04/05/2023 10:18 AM CDT documented in this encounter Discharge Instructions * Discharge Instructions* Orville Khalil P.A.-C., P.A. - 10/21/2023 9:29 AM OPERATING ROOM REGISTERED NURSE Make sure to eat and drink enough. Schedule an appointment in clinic - I sent a message to your [employer].Talk to her about PVC's and shortness of breath. Come back here if you worsen. ATING ROOM REGISTERED NURSE * Attachments The following attachments cannot be sent through Care Everywhere. * Premature Ventricular Contraction (Ethiopian) * Shortness of Breath Adult (Ethiopian) documented in this encounter Medications at Time [...] mouth daily. 90 tablet 3 10/20/2023 10/19/2024 carvediloL (COREG) 25 mg tablet Take 1 [...] as of this encounter ED Notes * Orville Khalil P.A.-C., P.A. - 10/21/2023 8:32 AM CST SUBJECTIVE CHIEF COMPLAINT/REASON FOR VISIT Shortness of Breath HISTORY OF PRESENT ILLNESS Levi Khanna is an 78-year-old male that presents with shortness of breath. He states that he noticed that he is having some shortness of breath especially with exertion starting yesterday evening. He notices that he is having a hard time keeping up with people when walking around. He continued to notice it this morning and decided to be evaluated for it. Otherwise he has been well recently with no other complaints. He does have a history of heart failure, hypertension and coronary artery disease. He has had coronary stents. He takes carvedilol and lisinopril. He denies any other specific complaints. History provided by: Patient service officer needed/used: no Shortness of Breath Severity: Mild Onset quality: Gradual Duration: 1 day Timing: Constant Progression: Unchanged Chronicity: New Context: activity Context: not URI Relieved by: None tried Worsened by: Activity and exertion Ineffective treatments: None tried Associated symptoms: no abdominal pain, no chest pain, no claudication, no cough, no diaphoresis, no ear pain, no fever, no headaches, no PND, no rash, no sore throat, no sputum production, no syncope, no vomiting and no wheezing Risk factors: hx of cancer Risk factors: no hx of PE/DVT, no prolonged immobilization and no recent surgery REVIEW OF SYSTEMS Constitutional: Negative for activity change, appetite change, chills, diaphoresis, fatigue and fever. HENT: Negative for congestion, ear pain, rhinorrhea, sinus pressure and sore throat. Respiratory: Positive for shortness of breath. Negative for cough, sputum production, chest tightness and wheezing. Cardiovascular: Negative for chest pain, palpitations, claudication, leg swelling, syncope and PND. Gastrointestinal: Negative for abdominal pain, diarrhea, nausea and vomiting. Musculoskeletal: Negative for myalgias. Skin: Negative for pallor and rash. Neurological: Negative for light-headedness and headaches. OBJECTIVE Initial Vitals Temperature 10/21/23 0818 36.8 ??C Pulse Rate 10/21/23 0818 78 Heart Rate 10/21/23 0853 67 Resp Rate 10/21/2318 22 Blood Pressure 10/21/23 0818 (!) 131/91 SpO2 10/21/23 0818 99 % Pain Score 10/21/23 0817 0 - No pain PHYSICAL EXAMINATION Constitutional: Nursing note and vitals reviewed. He is cooperative. He does not appear ill. No distress. HENT: Head: Normocephalic and atraumatic. Mouth/Throat: Oropharynx is clear and moist. Mucous membranes are moist. Mucous membranes are not dry. Eyes: Lids are normal. Periorbital area normal appearing. Neck: Phonation normal. Cardiovascular: Normal rate, regular rhythm and normal pulses. Frequent extrasystoles are present. Pulmonary/Chest: Effort normal and breath sounds normal. No tachypnea. No respiratory distress. Musculoskeletal: Cervical back: No pain with movement. Neurological: Alert and oriented to person, place, and time. Normal speech. Skin: Skin is warm, dry and normal color. No rash noted. Psychiatric: He has a normal mood and affect. ASSESSMENT/PLAN Assessment and Plan Levi Khanna is an 78-year-old male that presents with shortness of breath. He is noticed some mild dyspnea with exertion starting yesterday evening. He denies any other complaints. He does have a history of mild heart failure, hyperlipidemia, coronary artery disease and hypertension. He otherwise has been well recently and has not noticed any shortness of breath in the previous weeks. Hehas not been sick recently although his has had URI type symptoms for the past couple of months. On exam he appears well and in no distress. Vital signs are all fairly normal. His lungs are clear and full. He does not appear to be fluid overloaded. I have low suspicion for pneumonia or sepsis.He does not have any symptoms suggestive of a viral illness. He is denying any chest pain and I have low suspicion for ACS. EKG shows a sinus rhythm with occasional dropped beats and occasional PVCs with a right bundle- branch block. No signs of ST segment elevation or depression. Holter monitor in January showed frequent second-degree AV block with occasional SVT. Echocardiogram in September of 2022had an EF of 47% with regional wall motion abnormalities. Chest x-ray did not show any evidence of pulmonary edema or pneumonia. ProBNP was elevated compared to 4 years ago. He is a mild hyponatremia. No other labs were significantly abnormal. He does have frequent PVCs compared to his Holter monitor in January. This may be explaining his symptoms or possibly worsening heart failure. He does have aclinic appointment in about a month and a half. I sent a message to his primary care provider to move that up. I did recommend that he come back to the emergency department if he worsens.. DIFFERENTIAL DIAGNOSES Heart failure, cardiac arrhythmia, heart block, pneumonia, viral illness, ACS, asthma exacerbation,pneumothorax, aortic dissection, anemia, dehydration, medication adverse effect, electrolyte abnormality. PROBLEMS ADDRESSED THIS VISIT Shortness of breath. I reviewed the following external records: primary care records. ED Course as of 10/21/23 0930 TueOct 21, 2023 0835 ECG 12 Lead Remi - sinus rhythm with first-degree AV block, right bundle-branch block and occasional P waveswith no conducting QRS with no ST segment or T wave changes. Normal QTC. 0854 Hemoglobin: 13.5 0855 White Blood Cell Count: 9.3 0908 Sodium, P(!): 128 NA mildly low 0908 Basic Metabolic Panel(!): Potassium, P 4.3 Sodium, P 128(!) Chloride, P 95(!) Bicarbonate, P 23 Anion Gap, P 10 BUN (Blood Urea Nitrogen), P 19 Creatinine 0.76 Estimated GFR (eGFR) >90 Calcium, Total, P 8.8 Glucose, P 111 0908 DX Chest AP or PA and Lateral 2 Views IMPRESSION: Comparison 03/22/2019. No pleural effusion, pneumothorax or focal consolidation. Heart size normal. Moderate hiatal hernia. 0916 NT-Pro BNP(!): 1095 Increased compared to 4 years ago. Final Diagnoses: as of 10/21/23 0930 Beat Premature Ventricular Hyponatremia Failure Heart (HCC) Dyspnea On Exertion The following tests were considered but ultimately not performed: None. Escalation of care, including admission/observation, considered: None. My ECG interpretation is documented in ED Course. My ECG Rhythm Strip interpretation includes the following comments: Frequent PVCs. Occasional second-degree AV block with dropped beats. Mostly sinus rhythm.. Orville Khalil P.A.-C., P.A. 10/21/23 0930 ATING ROOM REGISTERED NURSE * Verna Zuleta R.N. - 10/21/2023 8:21 AM CST Pt presents to ED with c/o SOB with activity that started last night. Denies pain, cough, fever, nausea, vomiting, or chills. Pt reports when on flat ground he's okay but when he has to move a little quicker or up stairs he becomes SOB. On arrival pt is 99% on room air. Verna Zuleat R.N. 10/21/23 08 ATING ROOM REGISTERED NURSE documented in this encounter Plan of Treatment Upcoming Encounters Date Type Department Care Team (Late st Contact Info) Description 12/13/2023 8:50 AM OPERATING ROOM REGISTERED NURSE Appointment Department of Laboratory Medicine and Pathology, [facility], in [place], [place] [address] [place] [phone] Natasha Mullins APRN, C.N.P., M.S., M.S.N. [address] [place] [phone] 12/13/2023 11:00 AM OPERATING ROOM REGISTERED NURSE Office Visit Department of Cardiovascular Medicine in [place], [place] [address] [place] [phone] Natasha Mullins APRN, C.N.P., M.S., M.S.N. [address] [place] [phone] 02/02/2024 9:15 AM CDT Appointment Department of Cardiovascular Diseases in [place], [place] [address] [place] [phone] Fazal Reynoso M.D. [address] [place] [phone] documented as of this encounter Procedures Procedure Name Priority Date/Time Associated Diagnosis Comments NT-PRO B-TYPE NATRIURETIC PEPTIDE (BNP), S STAT 10/21/2023 8:45 AM OPERATING ROOM REGISTERED NURSE CBC WITH DIFFERENTIAL, B STAT 10/21/2023 8:45 AM OPERATING ROOM REGISTERED NURSE BASIC METABOLIC PANEL, S/P STAT 10/21/2023 8:45 AM OPERATING ROOM REGISTERED NURSE DX CHEST AP OR PA AND LATERAL 2 VIEWS RAD - Semiurgent (Fast; most ED patients; some inpatients) 10/21/2023 8:44 AM OPERATING ROOM REGISTERED NURSE ECG STAT 10/21/2023 8:35 AM OPERATING ROOM REGISTERED NURSE documented in this encounter Results * (ABNORMAL) NT-Pro B-Type Natriuretic Peptide (BNP) (10/21/2023 8:45 AM OPERATING ROOM REGISTERED NURSE) [facility] Signature NT-Pro BNP 1095(H) <=540 pg/mL 10/21/2023 9:15 AM OPERATING ROOM REGISTERED NURSE CNFL Comment: NT-proBNP values less than 300 [...] absence of renal failure. Blood (Blood, Venous) 10/21/2023 8:45 AM OPERATING ROOM REGISTERED NURSE 10/21/2023 8:48 AM OPERATING ROOM REGISTERED NURSE Orville Khalil P.A.-C., P.A. LAB BLOOD ADD-ON [facility] [address] [place] [phone], [facility] CNFL [facility] [place] [address] * (ABNORMAL) Basic Metabolic Panel (10/21/2023 8:45 AM OPERATING ROOM REGISTERED NURSE) Potassium, P 4.3 3.6 - 5.2 mmol/L 10/21/2023 9:07 AM OPERATING ROOM REGISTERED NURSE CNFL Sodium, P 128(L) 135 - 145 mmol/L 10/21/2023 9:07 AM OPERATING ROOM REGISTERED NURSE CNFL Chloride, P 95(L) 98 - 107 mmol/L 10/21/2023 9:07 AM OPERATING ROOM REGISTERED NURSE CNFL Bicarbonate, P 23 22 - 29 mmol/L 10/21/2023 9:07 AM OPERATING ROOM REGISTERED NURSE CNFL Anion Gap, P 10 7 - 15 10/21/2023 9:07 AM OPERATING ROOM REGISTERED NURSE CNFL BUN (Blood Urea Nitrogen), P 19 8 - 24 mg/dL 10/21/2023 9:07 AM OPERATING ROOM REGISTERED NURSE CNFL Creatinine 0.76 0.74 - 1.35 mg/dL 10/21/2023 9:07 AM OPERATING ROOM REGISTERED NURSE CNFL Estimated GFR (eGFR) >90 >=60 mL/min/BSA 10/21/2023 9:07 AM OPERATING ROOM REGISTERED NURSE CNFL Comment: Estimated GFR calculated using the 2020 CKD_EPI creatinine equation. Calcium, Total, P 8.8 8.8 - 10.2 mg/dL 10/21/2023 9:07 AM OPERATING ROOM REGISTERED NURSE CNFL Glucose, P 111 70 - 140 mg/dL 10/21/2023 9:07 AM OPERATING ROOM REGISTERED NURSE CNFL Blood (Blood, Venous) 10/21/2023 8:45 AM OPERATING ROOM REGISTERED NURSE 10/21/2023 8:48 AM OPERATING ROOM REGISTERED NURSE Orville Khalil P.A.-C., P.A. LAB BLOOD ADD-ON [facility] [address] [place] [phone], [facility] [place] [address] * (ABNORMAL) CBC with Differential, Blood (10/21/2023 8:45 AM OPERATING ROOM REGISTERED NURSE) Hemoglobin 13.5 13.2 - 16.6 g/dL 10/21/2023 8:54 AM OPERATING ROOM REGISTERED NURSE CNFL Hematocrit 40.0 38.3 - 48.6 % 10/21/2023 8:54 AM OPERATING ROOM REGISTERED NURSE CNFL Erythrocytes 4.42 4.35 - 5.65 x10(12)/L 10/21/2023 8:54 AM OPERATING ROOM REGISTERED NURSE CNFL MCV 90.5 78.2 - 97.9 fL 10/21/2023 8:54 AM OPERATING ROOM REGISTERED NURSE CNFL RBC Distrib Width 12.8 11.8 - 14.5 % 10/21/2023 8:54 AM OPERATING ROOM REGISTERED NURSE CNFL Platelet Count 197 135 - 317 x10(9)/L 10/21/2023 8:54 AM OPERATING ROOM REGISTERED NURSE CNFL Leukocytes 9.3 3.4 - 9.6 x10(9)/L 10/21/2023 8:54 AM OPERATING ROOM REGISTERED NURSE CNFL Neutrophils 6.74(H) 1.56 - 6.45 x10(9)/L 10/21/2023 8:54 AM OPERATING ROOM REGISTERED NURSE CNFL Lymphocytes 1.40 0.95 - 3.07 x10(9)/L 10/21/2023 8:54 AM OPERATING ROOM REGISTERED NURSE CNFL Monocytes 0.79 0.26 - 0.81 x10(9)/L 10/21/2023 8:54 AM OPERATING ROOM REGISTERED NURSE CNFL Eosinophils 0.39 0.03 - 0.48 x10(9)/L 10/21/2023 8:54 AM OPERATING ROOM REGISTERED NURSE CNFL Basophils <0.04 0.01 - 0.08 x10(9)/L 10/21/2023 8:54 AM OPERATING ROOM REGISTERED NURSE CNFL Blood (Blood, Venous) 10/21/2023 8:45 AM OPERATING ROOM REGISTERED NURSE 10/21/2023 8:48 AM OPERATING ROOM REGISTERED NURSE Orville Khalil P.A.-C., P.A. LAB BLOOD ADD-ON [facility] [address] [place] [phone], [facility] in [address] [phone] * DX Chest AP or PA and Lateral 2 Views (10/21/2023 8:44 AM OPERATING ROOM REGISTERED NURSE) Anatomical Region Laterality Modality Chest, Thoracic RST LOS, Tho racic ARZ LOS, Thoracic FLA LOS N/A Digital Radiography 10/21/2023 8:45 AM OPERATING ROOM REGISTERED NURSE Impressions 10/21/2023 8:49 AM OPERATING ROOM REGISTERED NURSE Comparison 03/22/2019. No pleural effusion, pneumothorax or focal consolidation. Heart size normal. Moderate hiatal hernia. Narrative 10/21/2023 8:49 AM OPERATING ROOM REGISTERED NURSE EXAM: DX CHEST AP OR PA AND LATERAL 2 VIEWS Procedure Note Branden Sheehan M.D. - 10/21/2023 EXAM: DX CHEST AP OR PA AND LATERAL 2 VIEWS IMPRESSION: Comparison 03/22/2019. No pleural effusion, pneumothorax or focal consolidation. Heart sizenormal. Moderate hiatal hernia. Orville Khalil P.A.-C., P.A. IMG DIAGNO STIC IMAGING PROCEDURES * ECG 12 Lead (10/21/2023 8:35 AM OPERATING ROOM REGISTERED NURSE) Ventricular Rate ECG/Min 64 BPM MUSE AR Interval 224 ms MUSE QRSD Interval 160 ms MUSE QT Interval 450 ms MUSE QTC Interval 464 ms MUSE P Leon 67 degrees MUSE R Leon -60 degrees MUSE T Wave Leon 23 degrees MUSE 10/21/2023 8:35 AM OPERATING ROOM REGISTERED NURSE 10/21/2023 10:48 AM OPERATING ROOM REGISTERED NURSE Impressions MUSE - 10/21/2023 8:49 AM OPERATING ROOM REGISTERED NURSE Sinus rhythm with sinus arrhythmia with 2nd degree A-V block (Mobitz I) Premature ventricular complexes Right bundle branch block Left anterior fascicular block Bifascicular block with secondary ST-T abnormalities Cannot rule out Anteroseptal infarct When compared with ECG of 26-NOV-2022 15:16, Premature ventricular complexes are now present Revised Report Narrative Procedure Note Fazal Soto M.D., Ph.D. 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 ECG ORDERA [facility] Organization Address City/State/ZIP Co de Phone Number MUSE NA documented in this encounter Visit Diagnoses Diagnosis Beat Premature Ventricular- Primary Hyponatremia Failure Heart (HCC) Dyspnea On Exertion documented in this encounter Care Teams Director Of Claims Relationship Specialty Start Date End Date Elsewhere, Pcp PCP - General Family Medicine 10/25/18 documented as of this encounter
--- OUTSIDE RECORDS SUMMARY | 2023-12-09 00:09 | XMS_ITS | Encounter Summary ---
Author Name Unknown Organization [facility] Address [address] [place] [address] Care Team Providers Care Cross Country Coach Name Role Phone Elsewhere, Pcp Primary Care Provider Unavailabl e Reason for Visit * Reason Onset Date Comments Urinary Symptom 10/27/2023 Encounter Details Date Type Department Care Team (Late st Contact Info) Description 10/27/2023 Nurse Triage Department of Family Medicine, [facility], in [place], [place] [address] [place] [phone] Chula Ruiz, RCarmineNCarmine Urinary Symptom Social History Tobacco Use Types Packs/Day Years [...] re latives? Once a week 05/31/2020 Attends Shinto Services Not on file 05/31 Active Member [...] Answer Date Recorded PHQ-2 Score 0 10/27/2023 [facility] Occupational Stress Questionnaire Answer Date [...] have a [facility] place to live 10/27/2023 Education Answer Date [...] encounter Miscellaneous Notes * Telephone Encounter - Chula Ruiz R.N. - 10/27/2023 8:55 AM EXPERT MEDICAL WRITER Chief Complaint / Reason for Call Patient is a 78 y.o. male calling regarding Urinary Symptom. Assessment Concern: Levi has a bladder stone and has been evaluated for this and has an upcoming consult on 11/02 regarding this issue. He states that the stone moves around and sometimes his urine stream is slow. Today the urine stream seems slower than usual and he also has pain at the base of his penisand a constant pressure over the bladder area. He is able to urinate and empty his bladder. He denies any fever or flank pain. Present for: started today Home cares tried: Tylenol three times a day Calling to request: advice The recommended disposition is See a health care provider within 24 hours. Patient was warm transferred toJackie, Patient Appointment Blintze Roller at the clinic for further assistance. Reason for Disposition All other males with painful urination Protocols used: Urination Pain - [id number] Care Advice Patient/Caregiver understands and will follow care advice?: Yes, able to teach back SEE PCP WITHIN 24 HOURS DRINK EXTRA FLUIDS: * Drink extra fluids. * Drink 8 to 10 cups (1,800 to 2,400 ml) of liquids a day. * Reason: This will water-down your urine and make it less painful to pass. It will also help wash out any germs that may be in your bladder. DRINK EXTRA FLUIDS - EXTRA NOTES AND WARNINGS: * Increased fluid intake may be contraindicated in adults with renal failure or heart failure. * Discuss with your doctor (or ROAD GRADER OPERATOR/PA). PAIN MEDICINES: * For pain relief, you can take either acetaminophen PAIN MEDICINES - EXTRA NOTES AND WARNINGS: * Before taking any medicine, read all the instructions on the package. CALL BACK IF: * Fever over 100.4 F (38.0 C) occurs * Side (flank) or lower back pain occurs * You become worse RT MEDICAL WRITER documented in this encounter Plan of Treatment Upcoming Encounters Date Type Department Care Team (Late st Contact Info) Description 12/13/2023 8:50 AM EXPERT MEDICAL WRITER Appointment Department of Laboratory Medicine and Pathology, [facility], in [place], [place] [address] [place] [phone] Natasha Mullins APRN, Niranjan., M.S., M.S.N. [address] [place] [phone] 12/13/2023 11:00 AM EXPERT MEDICAL WRITER Office Visit Department of Cardiovascular Medicine in [place], [place] [address] [place] [phone] Natasha Mullins APRN, Justin, M.S., M.S.N. [address] [place] [phone] 02/02/2024 9:15 AM CDT Appointment Department of Cardiovascular Diseases in [place], [place] [address] [place] [phone] Fazal Reynoso M.D. [address] [place] [phone] documented as of this encounter Visit Diagnoses Not on filedocumented in this encounter Care Teams Cross Country Coach Relationship Specialty Start Date End Date Elsewhere, Pcp PCP - General Family Medicine 10/25/18 documented as of this encounter
--- OUTSIDE RECORDS SUMMARY | 2023-12-09 00:09 | XMS_ITS | Encounter Summary ---
Author Name Unknown Organization [facility] Address [address] [place] [address] Care Team Providers Care Foreign Service Teacher Name Role Phone Elsewhere, Pcp Primary Care Provider Unavailabl e Encounter Details Date Type Department Care Team (Latest Contact Info) Description 10/03/2023 7:06 AM MARBLEIZING MACHINE TENDER - 10/03/2023 11:59 PM MARBLEIZING MACHINE TENDER Hospital Encounter Department of Laboratory Medicine and Pathology, [facility] in [place], [place] [address] [place] [phone] Nery, Jonnathan, VY, C.N.P., D.N.P., M.S. [address] [place] [phone] Nodule Prostate; Retention Urinary Discharge Disposition: Home or Self Care Social [...] re latives? Once a week 05/31/2020 Attends [employer] Services Not on file 05/31 Active Member [...] and heating? Not hard at all 05/31/2020 [facility] of Occupat ional Health - Occupational Stress [...] 1 puff daily as needed. 0 08/25/2015 montelukast (SINGULAIR) 10 mg tablet Take 1 tablet by mouth at bedtime. 0 08/25/2015 multivitamin tablet Take 1 tablet by mouth daily. 0 clopidogreL (PLAVIX) 75 mg tablet Take 1 tablet (75 mg total) by mouth daily. 90 tablet 3 10/12/2022 10/12/2023 nitroglycerin (NITROSTAT) 0.[address] 1 tablet (0.4 mg total) under the tongue as needed for chest pain. May repeat every 5 x 2. If no relief with 3rd tab call 911. 25 tablet 3 10/12/2022 10/12/2023 carvediloL (COREG) 25 mg tablet Take 1 tablet (25 mg total) by mouth 2 (two) times a day. 180 tablet 3 10/12/2022 11/02/2023 levothyroxine (SYNTHROID, LEVOTHROID) 175 mcg tablet Take 1 tablet (175 mcg total) by mouth every morning before breakfast. 90 tablet 3 11/29/2022 11/24/2023 lisinopriL (PRINIVIL,ZESTRIL) 40 mg tablet Take 1 tablet (40 mg total) by mouth daily. 90 tablet 3 10/12/2022 10/20/2023 rosuvastatin (Crestor) 40 mg tablet Take 1 tablet (40 mg total) by mouth daily. 90 tablet 3 10/27/2022 10/20/2023 tamsulosin (FLOMAX) 0.4 mg 24 hr capsule Take 0.4 mg by mouth at bedtime. 0 12/12/2020 11/22/2023 documented as of this encounter Plan of Treatment Upcoming Encounters Date Type Department Care Team (Late st Contact Info) Description 12/13/2023 8:50 AM MARBLEIZING MACHINE TENDER Appointment Department of Laboratory Medicine and Pathology, [facility], in [place], [place] [address] [place] [phone] Natasha Mullins APRN, Niranjan., M.S., M.S.N. [address] [place] [phone] 12/13/2023 11:00 AM MARBLEIZING MACHINE TENDER Office Visit Department of Cardiovascular Medicine in [place], [place] [address] [place] [phone] Natasha Mullins APRN, Justin, M.S., M.S.N. [address] [place] [phone] 02/02/2024 9:15 AM CDT Appointment Department of Cardiovascular Diseases in [place], [place] [address] [place] [phone] Fazal Reynoso M.D. [address] [place] [phone] documented as of this encounter Procedures Procedure Name Priority Date/Time Associated Diagnosis Comments DIPSTICK, U Routine 10/03/2023 7:17 AM MARBLEIZING MACHINE TENDER MICROSCOPIC AUTOMATED Routine 10/03/2023 7:17 AM MARBLEIZING MACHINE TENDER BACTERIAL CULTURE, AEROBIC + SUSC, URINE Routine 10/03/2023 7:17 AM MARBLEIZING MACHINE TENDER Nodule Prostate Retention Urinary PH, U Routine 10/03/2023 7:17 AM MARBLEIZING MACHINE TENDER OSMOLALITY, U Routine 10/03/2023 7:17 AM MARBLEIZING MACHINE TENDER URINALYSIS WITH MICROSCOPIC Routine 10/03/2023 7:17 AM MARBLEIZING MACHINE TENDER Nodule Prostate Retention Urinary documented in this encounter Results * (ABNORMAL) Dipstick, Urine (10/03/2023 7:17 AM MARBLEIZING MACHINE TENDER) Hemoglobin, QL, U Negative Negative 10/03/2023 8:05 AM MARBLEIZING MACHINE TENDER DTL Leukocyte Esterase, U Small(A) Negative 10/03/2023 8:05 AM MARBLEIZING MACHINE TENDER DTL Nitrite, U Negative Negative 10/03/2023 8:05 AM MARBLEIZING MACHINE TENDER DTL Ketone, U Negative Negative mg/dL 10/03/2023 8:05 AM MARBLEIZING MACHINE TENDER DTL Glucose, U Negative Negative mg/dL 10/03/2023 8:05 AM MARBLEIZING MACHINE TENDER DTL Urine 10/03/2023 7:17 AM MARBLEIZING MACHINE TENDER 10/03/2023 7:42 AM MARBLEIZING MACHINE TENDER [facility] VY, C.N.P., D.N.P., M. S. LAB URINE ORDERABLES Performing Organization Address City/[facility]/ZIP Co de Phone Number [facility] [address] 200 [place] [address] * pH, Urine (10/03/2023 7:17 AM MARBLEIZING MACHINE TENDER) Pathologist [facility] pH, U 6.4 4.5 - 8.0 10/03/2023 8:4 4 AM MARBLEIZING MACHINE TENDER DTL Urine 10/03/2023 7:17 AM MARBLEIZING MACHINE TENDER 10/03/2023 7:42 AM MARBLEIZING MACHINE TENDER [facility] VY, C.N.P., D.N.P., M. S. LAB URINE ORDERABLES Performing Organization Address City/[facility] Co de Phone Number [facility] [address] 200 [place] [address] * Osmolality, Urine (10/03/2023 7:17 AM MARBLEIZING MACHINE TENDER) Pathologist [facility] Osmolality, U 422 150 - 1150 mOsm/kg 10/03/2023 8:44 AM MARBLEIZING MACHINE TENDER DTL Urine 10/03/2023 7:17 AM MARBLEIZING MACHINE TENDER 10/03/2023 7:42 AM MARBLEIZING MACHINE TENDER [facility] Danny Rahman APRNN.Jalen, Isis.N.P., M. S. LAB URINE ORDERABLES Performing Organization Address [facility] de Phone Number [facility] 200 [place] [address], [facility] 200 [place] [address] * Microscopic Automated (10/03/2023 7:17 AM MARBLEIZING MACHINE TENDER) Microscopy Normal 10/03/2023 8:05 AM MARBLEIZING MACHINE TENDER DTL RBC None Seen <3 /hpf 10/03/2023 8:05 AM MARBLEIZING MACHINE TENDER DTL WBC 1-3 /hpf 10/03/2023 8:05 AM MARBLEIZING MACHINE TENDER DTL Comment: ----REFERENCE VALUE---- <4 ??(Males) <11 (Females) Urine 10/03/2023 7:17 AM MARBLEIZING MACHINE TENDER 10/03/2023 7:42 AM MARBLEIZING MACHINE TENDER [facility] Danny Rahman APRNN.Jalen, D.N.P., M. S. LAB URINE ORDERABLES Performing Organization Address [facility] de Phone Number [facility] 200 [place] [address], [facility] 200 [place] [address] * Bacterial Culture, Aerobic + Susceptibility, Urine (10/03/2023 7:17 AM MARBLEIZING MACHINE TENDER) Urine Culture No growth after 1 day of incubation. 10/04/2023 8:09 AM MARBLEIZING MACHINE TENDER DTL Urine (Urine, Midstream) 10/03/2023 7:17 AM MARBLEIZING MACHINE TENDER 10/03/2023 8:21 AM MARBLEIZING MACHINE TENDER Comment:Specimen Source Site : Urine Bandar[facility] Radha Rahman APRN.N.PCarmine, Isis.N.P., M. S. LAB MICROBIOLOGY - GENERAL ORDERABLES Performing Organization Address City/[facility] Co de Phone Number [facility] 200 [place] [address], [facility] 200 [place] [address] * (ABNORMAL) Urinalysis with Microscopic: Urine, Midstream (10/03/2023 7:17 AM MARBLEIZING MACHINE TENDER) Source Urine, Urine, Midstream 10/03/2023 7:42 AM MARBLEIZING MACHINE TENDER DTL Color, U Yellow 10/03/2023 7:42 AM MARBLEIZING MACHINE TENDER DTL Clarity, U Clear 10/03/2023 7:42 AM MARBLEIZING MACHINE TENDER DTL Protein, U 10 <26 mg/dL 10/03/2023 8:33 AM MARBLEIZING MACHINE TENDER DTL Protein/Osmol ality 0.24 <0.42 ratio 10/03/2023 8:44 AM MARBLEIZING MACHINE TENDER DTL Predicted 24 HR Protein, U 239(H) <229 mg/24 h 10/03/2023 8:44 AM MARBLEIZING MACHINE TENDER DTL Predicted Range 76-752 mg/24 h 10/03/2023 8:44 AM MARBLEIZING MACHINE TENDER DTL Urine (Urine, Midstream) 10/03/2023 7:17 AM MARBLEIZING MACHINE TENDER 10/03/2023 7:42 AM MARBLEIZING MACHINE TENDER Jonnathan Nsameluh Justin MCCLELLAN, Isis.N.P., M. S. LAB URINE ORDERABLES Performing Organization Address City/[facility] Co de Phone Number [facility] 200 [place] [address], [facility] [place] 200 [place] [address] documented in this encounter Visit Diagnoses Diagnosis Nodule Prostate Retention Urinary documented in this encounter Care Teams Foreign Service Teacher Relationship Specialty Start Date End Date Elsewhere, Pcp PCP - General Family Medicine 10/25/18 documented as of this encounter
--- OUTSIDE RECORDS SUMMARY | 2023-12-09 00:09 | XMS_ITS | Encounter Summary ---
Author Name Unknown Organization [facility] Address [address] [place] [address] Care Team Providers Care Associate Professor Of Automation Name Role Phone Elsewhere, Pcp Primary Care Provider Unavailabl e Reason for Visit * Reason Onset Date Comments Shortness of breath abrupt episode 10/21/2023 Seen this morning at [place] ED. See chart. Encounter Details Date Type Department Care Team (Latest Contact Info) Description 10/21/2023 Clinical Communication Department of Cardiovascular Medicine in [place], [place] [address] [place] [address] Natasha Mullins APRN, C.N.P., M.S., M.S.N. [address] [place] [phone] Shortness of breath abrupt episode (Seen this morning at [place] ED. See chart.) Social History Tobacco Use Types Packs/Day Years [...] Answer Date Recorded PHQ-2 Score 0 10/27/2023 [facility] - Occupational Stress Questionnaire Answer Date [...] encounter Miscellaneous Notes * Telephone Encounter - Chichi Cool R.N. - 10/28/2023 9:46 AM ORE TESTER CHIEF COMPLAINT / REASON FOR CALL Shortness of breath abrupt episode (Seen this morning at [place] ED. See chart.) Information Discussed Patient contacted today to follow up on dyspnea upon exertion symptoms. He was walking on 10/20/23 and noticed increased dyspnea upon exertion and went to the ED on 10/21/23 for persistent dyspnea. He continues to limit activity to accommodate for this. He denies chest pain, but reports that head, neck, and shoulders have a mild ache. He is using a Diskus inhaler as needed which helps. He reports that after walking 100 ft uphill he will become SOB, but is not short of breath ambulating shorter distances. He denies edema, changes in weight, or orthopnea. On ED exam on 10/21/23, he reports that his lungs were clear and did not appear to be fluid overloaded. EKG showed a sinus rhythm with occasional dropped beats and occasional PVCs with a right bundle-branch block. Chest x-ray did not show any evidence of pulmonary edema or pneumonia. No labs were significantly abnormal. He does have frequent PVCs compared to his Holter monitor in January. The provider recommended that he try to move his appointment up to evaluate for worsening heart failure. 09/02/23 - He was seen in urology for a cystoscopy, and his bladder stone is his biggest concern today. He has a virtual follow up visit on 11/02/23 with them. He saw family medicine yesterday and was treated for a urinary tract infection. PLAN Patient is agreeable to seeing other providers in the [facility] Failure [facility] so RN will contact the [facility] office to check on availability to move up appointment. Natasha Fagan APRN will be updated to the above information and RN will call to relay any new recommendations. Disposition/Recommendation: notified provider and awaiting recommendations and recommended continueengagement in self-management activities Information/Education: patient/caller able to teach back Caller agreeable to plan of care: yes The following references were used: nursing clinical judgement and provider Natasha Fagan APRN TESTER documented in this encounter Plan of Treatment Upcoming Encounters Date Type Department Care Team (Late st Contact Info) Description 12/13/2023 8:50 AM ORE TESTER Appointment Department of Laboratory Medicine and Pathology, [facility], in [address] [phone] Natasha Mullins APRN, C.N.P., M.S., M.S.N. [address] [place] [phone] 12/13/2023 11:00 AM ORE TESTER Office Visit Department of Cardiovascular Medicine in [address] [phone] Natasha Mullins APRN, C.N.P., M.S., M.S.N. [address] [place] [phone] 02/02/2024 9:15 AM CDT Appointment Department of Cardiovascular Diseases in [address] [phone] Fazal Reynoso M.D. [address] [place] [phone] documented as of this encounter Visit Diagnoses Not on filedocumented in this encounter Care Teams Associate Professor Of Automation Relationship Specialty Start Date End Date Elsewhere, Pcp PCP - General Family Medicine 10/25/18 documented as of this encounter
--- OUTSIDE RECORDS SUMMARY | 2023-12-09 00:09 | XMS_ITS | Encounter Summary ---
Author Name Unknown Organization [facility] Address [address] [place] [address] Care Team Providers Care Benchroom Shop Optician Name Role Phone Elsewhere, Pcp Primary Care Provider Unavailabl e Encounter Details Date Type Department Care Team (Late st Contact Info) Description 10/10/2023 Clinical Communication Department of Urology in [place], [place] [address] [place] [phone] Josiah, Jonnathan, VY, C.N.P., D.N.P., M.S. [address] [place] [phone] Social History Tobacco Use Types Packs/Day Years [...] re latives? Once a week 05/31/2020 Attends [employer] Not on file 05/31 Active Member [...] Answer Date Recorded PHQ-2 Score 0 10/27/2023 [facility] of Occupat ional Health - Occupational [...] your living situation today? I have a [employer] place to live 10/31/2023 Education Answer Date [...] st Contact Info) Description 12/13/2023 8:50 AM HYDRAULIC BULL RIVETER OPERATOR Appointment Department of Laboratory Medicine and Pathology, [facility] in [place], [place] [address] [place] [phone] Natasha Mullins APRN, Radha.N.P., M.S., M.S.N. [address] [place] [phone] 12/13/2023 11:00 AM HYDRAULIC BULL RIVETER OPERATOR Office Visit Department of Cardiovascular Medicine in [place], [place] [address] [place] [phone] Natasha Mullins APRN, Radha.N.P., M.S., M.S.N. [address] [place] [phone] 02/02/2024 9:15 AM CDT Appointment Department of Cardiovascular Diseases in [place], [place] [address] [place] [phone] Fazal Reynoso M.D. [address] [place] [phone] documented as of this encounter Visit Diagnoses Not on filedocumented in this encounter Care Teams Benchroom Shop Optician Relationship Specialty Start Date End Date Elsewhere, Pcp PCP - General Family Medicine 10/25/18 documented as of this encounter
--- OUTSIDE RECORDS SUMMARY | 2023-12-09 00:10 | XMS_ITS | Encounter Summary ---
Author Name Unknown Organization [facility] Address [address] [place] [address] Care Team Providers Care Loan Collector Name Role Phone Elsewhere, Pcp Primary Care Provider Unavailabl e Reason for Visit * Reason Onset Date Comments Pre-visit Intake 09/07/2023 Encounter Details Date Type Department Care Team (Latest Contact Info) Description 09/07/2023 10:45 AM CDT Clinical Communication Virtual Review in [place], [place] [address] [place] [address] Pre-visit Intake Social History Tobacco Use Types Packs/Day Years Used Date Smoking Tobacco: Never Passive Smoke Exposure: Past Smokeless Tobacco: Never Tobacco Cessation:Counseling Given: Yes Passive Exposure Comments:Growing up for Many years [...] and heating? Not hard at all 05/31/2020 [facility] of Occupat ional Health - [...] st Contact Info) Description 12/13/2023 8:50 AM WOOD TYPE CUTTER Appointment Department of Laboratory Medicine and Pathology, [facility], in [place], [place] [address] [place] [phone] Natasha Mullins APRN, C.N.P., M.S., M.S.N. [address] [place] [phone] 12/13/2023 11:00 AM WOOD TYPE CUTTER Office Visit Department of Cardiovascular Medicine in [place], [place] [address] [place] [address] Natasha Mullins APRN, C.N.P., M.S., M.S.N. [address] [place] [phone] 02/02/2024 9:15 AM CDT Appointment Department of Cardiovascular Diseases in [place], [place] [address] [place] [phone] Fazal Reynoso M.D. [address] [place] [phone] documented as of this encounter Visit Diagnoses Not on filedocumented in this encounter Care Teams Loan Collector Relationship Specialty Start Date End Date Elsewhere, Pcp PCP - General Family Medicine 10/25/18 documented as of this encounter
--- OUTSIDE RECORDS SUMMARY | 2023-12-09 00:10 | XMS_ITS | Encounter Summary ---
Author Name Unknown Organization [facility] Address [address] [place] [address] Care Team Providers Care Pot Maker Name Role Phone Elsewhere, Pcp Primary Care Provider Unavailabl e Reason for Visit * Reason Onset Date Comments Appt Request 09/07/2023 Yearly check Encounter Details Date Type Department Care Team (Latest Contact Info) Description 09/07/2023 Clinical Communication Department of Cardiovascular Medicine in [place], [place] [address] [place] [phone] Natasha Mullins APRN, C.N.P., M.S., M.S.N. [address] [place] [phone] Appt Request (Yearly check) Social History Tobacco Use Types Packs/Day Years [...] re latives? Once a week 05/31/2020 Attends [employer] Not on file 05/31 Active Member [...] and heating? Not hard at all 05/31/2020 [facility] of Occupat ional Health - Occupational [...] st Contact Info) Description 12/13/2023 8:50 AM CREATIVE SERVICES MANAGER Appointment Department of Laboratory Medicine and Pathology, [facility], in [place], [place] [address] [place] [address] Grazzini RylanNatasha ackerman APRN, C.N.P., M.S., M.S.N. [address] [place] [phone] 12/13/2023 11:00 AM CREATIVE SERVICES MANAGER Office Visit Department of Cardiovascular Medicine in [place], [place] [address] [place] [phone] Natasha Mullins APRN, C.N.P., M.S., M.S.N. [address] [place] [phone] 02/02/2024 9:15 AM CDT Appointment Department of Cardiovascular Diseases in [place], [place] [address] [place] [phone] Fazal Reynoso M.D. [address] [place] [phone] documented as of this encounter Visit Diagnoses Not on filedocumented in this encounter Care Teams Pot Maker Relationship Specialty Start Date End Date Elsewhere, Pcp PCP - General Family Medicine 10/25/18 documented as of this encounter
--- OUTSIDE RECORDS SUMMARY | 2023-12-09 00:10 | XMS_ITS | Encounter Summary ---
Author Name Unknown Organization [facility] Address [address] [place] [id number] Care Team Providers Care Marketing Systems Manager Name Role Phone Elsewhere, Pcp Primary Care Provider Unavailabl e Reason for Visit * Outpatient (Routine) - Closed Specialty Diagnoses / Procedures Referred By Miguel arzola Referred To Contact Diagnoses Nodule Prostate Retention Urinary Procedures URO Cystoscopy (general) Jonnathan Rahman APRN C.N.PCarmine, D.N.P., M.S. [address] [place] [phone] [facility] Referral ID Status Reason Start Date Expiration Date Visits Re quested Visits Authorized [id number] Closed 09/08/2023 09/07/2024 1 1 Encounter Details Date Type Department Care Team (Late st Contact Info) Description 10/03/2023 9:30 AM FINANCIAL PROCESSING CLERK Procedure visit Department of Urology in [place], [place] [address] [place] [phone] Jonnathan Rahman APRN, C.N.P., D.N.P., M.S. [address] [place] [phone] Anai Wong P.A.-C. [address] [place] [phone] Nodule Prostate; Retention Urinary Social History Tobacco [...] re latives? Once a week 05/31/2020 Attends [employer] Services Not on file 05/31 Active Member [...] and heating? Not hard at all 05/31/2020 [facility] [place] of Occupat ional Health - Occupational Stress [...] as of this encounter Progress Notes * Cinthya Leary L.P.N. - 10/03/2023 9:30 AM CST Patient here for a cystoscopy performed by Anai Wong Cystoscope CYF-VH #[id number] was used during today's cystoscopy procedure. Accessories used: disposable stop cock. Load number from processing via [employer]: [id number] Urines sent: No 4. Was dye used? No NCIAL PROCESSING CLERK documented in this encounter Procedure Notes * Anai Wong P.A.-C. - 10/03/2023 9:30 AM CSTAssociated Order(s): URO Cystoscopy (general) Pre-Procedure Diagnose(s): Nodule Prostate; Retention Urinary Post-Procedure Diagnose(s): Nodule Prostate; Retention Urinary URO Cystoscopy (general) Performed by: Anai Wong P.A.-C. Authorized by: Jonnathan Rahman APRN, C.N.P., D.N.P., M.S. IMPRESSION BPH and other Additional procedures performed: cystoscopy PROCEDURE DETAILS Mr. Khanna is an 78-year-old gentleman who presents today for evaluation of BPH. The patient was brought to cystoscopy suite and placed in lithotomy position. He was prepped and draped in the standard fashion. A flexible cystoscope was inserted through the urethra into the bladder. Urethroscopy demonstrated normal- appearing urethra mucosa. Prostatic urethra was notable for evidence of stone. Given position elected to utilize the scope to push the stone back into the bladder. There was evidence of lateral lobe hyperplasia. Upon entrance into the bladder, berg cystoscopy was performed. Significant bladder wall trabeculation. No erythematous or papillary bladder lesions were noted. Approximately 4-5 mm bladder calculus was present. Ureteral orifices were identified in their orthotopic position bilaterally and seen to efflux clear urine. Retroflex view demonstrated normal appearing bladder neck. Multiple pictures were taken. Cystoscope was then removed, patient toleratedthe procedure well. DIAGNOSIS: Bilobar hyperplasia Bladder calculus PLAN: Patient has upcoming consultation with Dr. Adams for further evaluation. He was provided with a strainer given presence [...] a procedural pause. PRE-PROCEDURE DETAILS Procedure purpose: Diagnostic Indications: BPH Appropriate hand hygiene, gown, cap, mask, protective eyewear, sterile gloves, skin preparation, sterile drape, and strict aseptic technique were utilized as applicable for the procedure.: yes Site preparation: Povidone-iodine SEDATION / ANESTHESIA Anesthesia method: none POST-PROCEDURE DETAILS Procedure completed successfully: yes Complications: no apparent complications COMMENTS The ordering provider is responsible for reviewing results of the procedure and communicating the findings to the patient. Patient was educated on post procedure instructions. NCIAL PROCESSING CLERK documented in this encounter Plan of Treatment Upcoming Encounters Date Type Department Care Team (Late st Contact Info) Description 12/13/2023 8:50 AM FINANCIAL PROCESSING CLERK Appointment Department of Laboratory Medicine and Pathology, [facility], in [place], [place] [address] [place] [phone] Natasha Mullins APRN, C.N.P., M.S., M.S.N. [address] [place] [phone] 12/13/2023 11:00 AM FINANCIAL PROCESSING CLERK Office Visit Department of Cardiovascular Medicine in [place], [place] [address] [place] [phone] Natasha Mullins APRN, C.N.PCarmine, M.S., M.S.N. [address] [place] [phone] 02/02/2024 9:15 AM CDT Appointment Department of Cardiovascular Diseases in [place], [place] [address] [place] [phone] Fazal Reynoso M.D. [address] [place] [phone] documented as of this encounter Procedures Procedure Name Priority Date/Time Associated Diagnosis Comments WI CYSTOURETHROSCOPY Routine 10/03/2023 9:30 AM FINANCIAL PROCESSING CLERK Nodule Prostate Retention Urinary documented in this encounter Results * WI CYSTOURETHROSCOPY (10/03/2023 9:30 AM FINANCIAL PROCESSING CLERK) Narrative Anai Wong P.A.-C. - 10/03/2023 9:30 AM FINANCIAL PROCESSING CLERK Anai Wong P.A.-C. ? 10/03/2023 10:08 AM URO Cystoscopy (general) Performed by: Anai Wong P.A.-C. Authorized by: Jonnathan Rahman APRN, C.N.PCarmine, D.N.P., M.S. ?? IMPRESSION ?? BPH and [...] was educated on post procedure instructions. ?? [facility] VY, C.N.P., D.N.P., M. S. UROLOGY ORDERABLES documented in this encounter Visit Diagnoses Diagnosis Nodule Prostate Retention Urinary documented in this encounter Care Teams Marketing Systems Manager Relationship Specialty Start Date End Date Elsewhere, Pcp PCP - General Family Medicine 10/25/18 documented as of this encounter
--- OUTSIDE RECORDS SUMMARY | 2023-12-09 00:10 | XMS_ITS | Encounter Summary ---
Author Name Unknown Organization [facility] Address [address] [place] [phone] Care Team Providers Care Fine Chemicals Operator Name Role Phone Elsewhere, Pcp Primary Care Provider Unavailabl e Encounter Details Date Type Department Care Team (Latest Contact Info) Description 09/08/2023 10:29 AM CDT - 09/08/2023 11:59 PM CDT Hospital Encounter Department of Laboratory Medicine and Pathology, [facility] in [place], [place] [address] [place] [phone] Josiah, Jonnathan, VY, C.N.P., D.N.P., M.S. [address] [place] [phone] Nodule Prostate Discharge Disposition: Home or Self Care Social [...] re latives? Once a week 05/31/2020 Attends [employer] Not on file 05/31 Active Member [...] and heating? Not hard at all 05/31/2020 [facility] [place] of Occupat ional Health - Occupational Stress [...] st Contact Info) Description 12/13/2023 8:50 AM DISPLAY DECORATOR Appointment Department of Laboratory Medicine and Pathology, [facility], in [place], [place] [address] [place] [phone] Natasha Mullins APRN, Niranjan., M.S., M.S.N. [address] [place] [phone] 12/13/2023 11:00 AM DISPLAY DECORATOR Office Visit Department of Cardiovascular Medicine in [place], [place] [address] [place] [phone] Natasha Mullins APRN, Justin, M.S., M.S.N. [address] [place] [phone] 02/02/2024 9:15 AM CDT Appointment Department of Cardiovascular Diseases in [place], [place] [address] [place] [phone] Fazal Reynoso M.D. [address] [place] [phone] documented as of this encounter Procedures Procedure Name Priority Date/Time Associated Diagnosis Comments ND OSMOLALITY ASSAY URINE Routine 09/08/2023 10:49 AM CDT DIPSTICK, U Routine 09/08/2023 10:49 AM CDT PH, RANDOM, U Routine 09/08/2023 10:49 AM CDT MICROSCOPIC MANUAL Routine 09/08/2023 10 :49 AM CDT URINALYSIS WITH MICROSCOPIC Routine 09/08/2023 10:49 AM CDT Nodule Prostate documented in this encounter Results * (ABNORMAL) Dipstick, Urine (09/08/2023 10:49 AM CDT) Hemoglobin, QL, U Negative Negative 09/08/2023 11:24 AM CDT DTL Leukocyte Esterase, U Trace(A) Negative 09/08/2023 11:24 AM CDT DTL Nitrite, U Negative Negative 09/08/2023 11:24 AM CDT DTL Ketone, U Negative Negative mg/dL 09/08/2023 11:24 AM CDT DTL Glucose, U Negative Negative mg/dL 09/08/2023 11:24 AM CDT DTL Urine 09/08/2023 10:4 9 AM CDT 09/08/2023 11:10 AM CDT Jonnathan Rahman APRN C.N.P., D.N.P., M. S. LAB URINE ORDERABLES Performing Organization Address City/[facility]/ZIP Co de Phone Number [facility] [address] [place] [address] * Osmolality, Urine (09/08/2023 10:49 AM CDT) Osmolality, U 467 150 - 1150 mOsm/kg 09/08/2023 11:49 AM CDT DTL Urine 09/08/2023 10:4 9 AM CDT 09/08/2023 11:10 AM CDT [facility] Josiah MCCLELLAN, C.N.P., D.N.P., M. S. LAB URINE ORDERABLES [facility] [address] [place] [address] * pH, Random, Urine (09/08/2023 10:49 AM CDT) pH, Random, U 6.5 4.5 - 8.0 09/08/2023 11:49 AM CDT DTL Urine 09/08/2023 10:4 9 AM CDT 09/08/2023 11:10 AM CDT [facility] Josiah MCCLELLAN C.N.PCarmine, D.N.P., M. S. LAB URINE ORDERABLES [facility] [address] [place] [address], [facility] [address] [place] [address] * (ABNORMAL) Microscopic Manual (09/08/2023 10:49 AM CDT) Microscopy Abnormal 09/08/2023 12:00 PM CDT DTL RBC <3 <3 /hpf 09/08/2023 12:00 PM CDT DTL WBC 4-10(A) /hpf 09/08/2023 12:00 PM CDT DTL Comment: ----REFERENCE VALUE---- 1-3 ??(Males) 1-10 (Females) Urine 09/08/2023 10:4 9 AM CDT 09/08/2023 11:10 AM CDT [facility] Josiah MCCLELLAN C.N.P., D.N.P., M. S. LAB URINE ORDERABLES [facility] [address] [place] [address], [facility] [place] [address] [place] [address] * Urinalysis with Microscopic: Urine, Midstream (09/08/2023 10:49 AM CDT) Source Urine, Urine, Midstream 09/08/2023 11:10 AM CDT DTL Color, U Yellow 09/08/2023 11:10 AM CDT DTL Clarity, U Clear 09/08/2023 11:10 AM CDT DTL Protein, U 9 <26 mg/dL 09/08/2023 11:53 AM CDT DTL Protein/Osmol ality 0.19 <0.42 ratio 09/08/2023 11:53 AM CDT DTL Predicted 24 HR Protein, U 196 <229 mg/24 h 09/08/2023 11:53 AM CDT DTL Predicted Range 62-618 mg/24 h 09/08/2023 11:53 AM CDT DTL Comment Micro done on <5 mL 09/08/2023 11:57 AM CDT DTL Urine (Urine, Midstream) 09/08/2023 10:49 AM CDT 09/08/2023 11:10 AM CDT Jonnathan Rahman APRN, C.N.P., D.N.P., M. S. LAB URINE ORDERABLES [place] [address] [place] [address], [facility] DTL [facility] [address] [place] [address] documented in this encounter Visit Diagnoses Diagnosis Nodule Prostate documented in this encounter Care Teams Fine Chemicals Operator Relationship Specialty Start Date End Date Elsewhere, Pcp PCP - General Family Medicine 10/25/18 documented as of this encounter
--- OUTSIDE RECORDS SUMMARY | 2023-12-09 00:10 | XMS_ITS | Encounter Summary ---
Author Name Unknown Organization [facility] Address [address] [place] [phone] Care Team Providers Care Dough Mixing Machine Operator Name Role Phone Elsewhere, Pcp Primary Care Provider Unavailabl e Reason for Referral * Outpatient (Routine) - Closed Specialty Diagnoses / Procedures Referred By Contac t Referred To Contact Urology Diagnoses Nodule Prostate Retention Urinary Jonnathan Rahman APRN, C.N.P., Ana.N.P., M.S. [address] [place] [phone] [facility] Referral ID Status Reason Start Date Expiration Date Visits Re quested Visits Authorized [id number] Closed 09/08/2023 09/07/2024 1 1 * Outpatient (Routine) - Closed Specialty Diagnoses / Procedures Referred By Miguel t Referred To Contact Diagnoses Nodule Prostate Retention Urinary Procedures URO Uroflow Jonnathan Rahman APRN, C.N.P., Ana.N.P., M.S. [address] [place] [phone] [facility] Referral ID Status Reason Start Date Expiration Date Visits Re quested Visits Authorized [id number] Closed 09/08/2023 09/07/2024 1 1 * Outpatient (Routine) - Closed Specialty Diagnoses / Procedures Referred By Helenac t Referred To Contact Diagnoses Nodule Prostate Retention Urinary Procedures [facility] (general) [facility] Ana.N.P., M.S. [address] [place] [phone] [facility] Referral ID Status Reason Start Date Expiration Date Visits Re quested Visits Authorized [id number] Closed 09/08/2023 09/07/2024 1 1 Electronically signed by [facility] Justin MCCLELLAN, Rock.Franklin., M.S. at 09/08/2023 1:22 PM CDT * Outpatient (Routine) - Closed Specialty Diagnoses / Procedures Referred By Miguel t Referred To Contact Diagnoses Nodule Prostate Retention Urinary Procedures [facility] Ana.N.P., M.S. [address] [place] [phone] Referral ID Status Reason Start Date Expiration Date Visits Re quested Visits Authorized [id number] Closed 09/08/2023 09/07/2024 1 1 Electronically signed by [facility] Justin MCCLELLAN, Rock.Franklin., M.S. at 09/08/2023 1:22 PM CDT Reason for Visit * Appointment Request (Routine) - Closed Specialty Diagnoses / Procedures Referred By Contac t Referred To Contact Urology Diagnoses Nodule Prostate Without Obstruction Saúl Saunders M.D. [address] [place] [phone] Referral ID Status Reason Start Date Expiration Date Visits Re quested Visits Authorized [id number] Closed 08/26/2023 08/25/2024 1 1 Encounter Details Date Type Department Care Team (Latest Contact Info) Description 09/08/2023 1:00 PM CDT Comprehensive Visit Department of Urology in [place], [place] [address] [place] [address] Jonnathan Rahman APRN, C.N.P., D.N.P., M.S. 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 Once a week 05/31/2020 Attends Christianity Services Not on file 05/31 Active Member [...] and heating? Not hard at all 05/31/2020 [facility] - Occupational Stress [...] Date Recorded Dental: Regular Dentist Unknown 07/14/20 Education Answer Date Recorded What is the highest level of school you have completed or the highest degree you have received? 12th grade 10/15/2019 Sex and Gender Information Value Date Recorded Sex Assigned at Male 03/01/2019 1:23 PM CDT Gender Identity Male 03/01/2019 1:23 PM CDT Sexual Orientation Straight 03/01/2019 1: 23 PM CDT documented as of this encounter Consult Notes * Josiah, Jonnathan, VY, C.N.P., D.N.P., M.S. - 09/08/2023 1:00 PM CDT SUBJECTIVE REQUESTING PROVIDER Saúl Saunders M.D. CHIEF COMPLAINT / REASON FOR VISIT Prostate nodule Patient seen on elevated PSA calendar. HISTORY OF PRESENT ILLNESS Mr. Khanna is a pleasant 78 y.o. male who presents from [facility] seeking for evaluation and treatment of a prostate nodule that was noted during visit with his local provider Dr. Saúl Saunders MD on 07/28/2023. Today 09/08/2023 PSA blood test results show a normal PSA of 0.93, abnormal microscopic urinalysis with WBC 4-10!/hpf, and an abnormal dipstick urine with trace of leukocyte Esterase. His medical history is significant for papillary thyroid carcinoma, post surgical hypothyroidism, coronary artery disease, mild intermittent asthma, BPH with urinary obstruction, hyperlipidemia, B-cell lymphoma and normal cystic anemia. Currently he is on long-term anticoagulation therapy 81 mg of aspirin and Plavix for stents, and also takes tamsulosin for lower urinary tract symptoms. His past surgical history is significant for tonsillectomy, bilateral inguinal hernia repair with mesh, vasectomy, laparotomy, cataract surgery, retinal surgery, thyroidectomy and central neck lymph node dissection. Left neck dissection, colonoscopy screening and esophagogastroduodenoscopy. During clinic visit he states that he voids about twice at night and about 4 times during the day but denies having any issues with voiding except for urinary frequency and sometimes difficulty with starting his urine but states that when he takes a walk he is able to urinate well without any problems. He also admits that in the past after surgery he has had problem with urination and had to be catheterized. Of recent he has been taking Flomax and states that he started taking Flomax on 01/05/2021 since then he takes 1 tablet of Flomax every day in the evening. Of late he presented with his local provider and a LEONEL was done and is noted that he had a prostatenodule and also it was noted that he had dysuria and was placed on doxycycline for 14 days. Today he admits that he completed taking all the antibiotics. He denies pain with urination, denies fevers and chills and denies any signs and symptoms of urinary tract infection. However he admits that if he does not take a walk he has a hard time starting his urine. He thinks he might not be emptying hisbladder very well, and admits sometimes he experiences dribbling with urine. The following portions of the patient's history were reviewed and updated as appropriate: allergies, current medications, family history, medical history, social history, surgical history and problemlist. REVIEW OF SYSTEMS ENT: Positive for difficulty hearing. Genitourinary: Positive for difficulty urinating. Musculoskeletal: Positive for pain or stiffness in the joints, back pain, joint swelling and musclepain/stiffness. The following systems were negative: Constitutional, Skin, Eyes, Respiratory, Cardiovascular, Gastrointestinal, Hematologic, Neurological, Psychiatric Past Medical History: Diagnosis Date Asthma NOS Cataract Coronary Artery Disease (Unspecified) Gastroesophageal Reflux [...] RST ROMB OR THYROID SURGERY TONSILLECTOMY VASECTOMY Family History Problem Relation Age of Onset Coronary artery disease Father Hypertension Mother Asthma Mother Migraines Mother Old age Mother Stroke Sister No Known Problems Sister No Known Problems Daughter No Known Problems Son Heart disease Paternal Grandmother No Known Problems Paternal Grandfather Stroke Maternal Grandmother Heart disease Maternal Grandfather Social History Socioeconomic History Marital status: Spouse name: Not on file Number of children: Not on file Years of education: Not on file Highest education level: 12th grade Occupational History Not on file Tobacco Use Smoking status: Never Passive exposure: Past (Growing up for Many years - Father) Smokeless tobacco: Never Vaping Use Vaping Use: never used Substance and Sexual Activity Alcohol use: No Drug use: No Sexual activity: Not Currently Other Topics Concern Not on file Social History Narrative Not on file Social Determinants of Health Financial Resource Strain: Low Risk (05/31/2020) Overall Financial Resource Strain (CARDIA) Difficulty of Paying Living Expenses: Not hard at all Food Insecurity: No Food Insecurity (10/15/2019) Hunger Vital Sign Worried About Running Out of Food in the Last Year: Never true Ran Out of Food in the Last Year: Never true Transportation Needs: No Transportation Needs (10/15/2019) PRAPARE - Transportation Lack of Transportation (Medical): No Lack of Transportation (Non-Medical): No Physical Activity: Insufficiently Active (10/15/2019) Exercise Vital Sign Days of Exercise per Week: 3 days Minutes of Exercise per Session: 20 min Intimate Partner Violence: Not on file Housing Stability: Not on file Lower Urinary Symptoms: Lower Urinary Sx: able to sense full bladder (+) 4 x per day 2 x nightly difficulty urinating (+) Obstructive Sx: kidney infections or required hospitalization for kidney failure (-) # of UTI's in past year: Not applicable Required catheter: no Incontinence: dribbling (+) unintentionally leaks urine (-) Comment: Currently takes 1 tablet of Flomax 0.4 mg daily Treatments: Treatments taken for urinary symptoms: medications treatments helped (+) had surgical or office procedures to improve urinary symptoms (-) OBJECTIVE PHYSICAL EXAMINATION Generally in no distress. Alert and oriented x3. Constitutional: He is oriented to person, place, and time. Musculoskeletal: Normal range of motion. Neurological: He is alert and oriented to person, place, and time. Skin: Skin is warm and dry. Capillary refill takes less than 2 seconds. Psychiatric: He has a normal mood and affect. His behavior is normal. Judgment and thought content normal. Genitourinary: Rectum normal. Small nodule palpated on the anterior and right lateral prostate gland. Patient admitted discomfort with palpation but denied pain. No blood was seen on gloved finger. DIAGNOSTICS Laboratory: Lab Results Component Value Date NA 131 (L) 08/01/2023 CL 97 (L) 08/01/2023 BUN 17 08/01/2023 CO2 22 02/13/2020 HGB 13.1 (L) 08/01/2023 HCT 40.2 04/05/2023 WBC 4.7 04/05/2023 PSA 0.93 09/08/2023 Lab Results Component Value Date/Time CREATININE 0.82 08/01/2023 09:16 AM CREATININE 0.91 04/05/2023 07:45 AM CREATININE 0.84 11/26/2022 07:27 AM CREATININE 0.91 10/14/2022 09:24 AM CREATININE 1.26 10/11/2022 12:54 PM CREATININE 0.78 04/08/2022 10:39 AM CREATININE 0.83 10/16/2021 08:02 AM CREATININE 0.77 02/13/2020 11:58 AM CREATININE 0.83 01/29/2019 02:24 PM CREATININE 0.86 07/21/2018 03:37 PM Lab Results Component Value Date/Time PSA 0.93 09/08/2023 10:43 AM Imaging: No results found. ASSESSMENT / PLAN #1 Nodule Prostate #2 Retention Urinary It was a pleasure meeting Mr. Khanna we reviewed his history and currently he understands he has a prostate nodule that is not very much concerning to him because his PSA today was 0.93 and he does not have a family history of prostate cancer. However he admits he is experiencing a difficulty with starting his urine and sometimes has to take a walk before he will be able to urinate without difficulty. Currently on Flomax 0.4 mg daily. He denies any side effects from the Flomax. We accepted that will do a prostate ultrasound to size his prostate and also to evaluate for possible mass or nodule in his prostate. We also accepted he will need to have a cystoscopy and then will be seen by 1 of our BPH urology consultants for evaluation and treatment of inability to void or completely empty his bladder. And should he have an enlarged prostate he will pursue treatment. Plan In view of the prostate nodule we accepted that he has a normal PSA and will not pursue a prostate MRI for now and no treatment for the nodule for now but he will pursue evaluation for possible BPH, urinary retention and obstruction. Prostate ultrasound to size the prostate and evaluate for possible mass in the prostate. Cystoscopy to evaluate bladder for possible mass and also evaluate for possible prostate obstruction. Urine flow to rule out possible urine retention. Follow-up with 1 of our BPH providers for evaluation and treatment. I personally spent over half of a total 60 minutes face to face (F2F) with the patient in counseling and discussion and/or coordination of care as well as rzm-rkgu-hg-face (NF2F) time documenting in the [facility] Chart, medical record review, ordering/reviewing tests, or communicating with other health healthcare management as described above. Jonnathan Rahman APRN, C.N.P., Ana.N.Franklin., M.S. 09/08/2023 12:25 PM CDT documented in this encounter Plan of Treatment Upcoming Encounters Date Type Department Care Team (Late st Contact Info) Description 12/13/2023 8:50 AM FASHION ADVISER Appointment Department of Laboratory Medicine and Pathology, [facility], in [place], [place] [address] [place] [phone] Natasha Mullins APRN, C.N.P., M.S., M.S.N. [address] [place] [phone] 12/13/2023 11:00 AM FASHION ADVISER Office Visit Department of Cardiovascular Medicine in [place], [place] [address] [place] [address] Natasha Mullins APRN, C.N.P., M.S., M.S.N. [address] [place] [phone] 02/02/2024 9:15 AM CDT Appointment Department of Cardiovascular Diseases in [place], [place] [address] [place] [phone] Fazal Reynoso M.D. [address] [place] [phone] Scheduled Referrals Name Type Priority Associated Diagnoses Orde r Schedule Urology - General - urinary retention consult (clinic) Outpatient Referral Routine Nodule Prostate Retention Urinary Expected: 09/08/2023 (Approximate), Expires: 12/09/2024 documented as of this encounter Results * SC US TRANSRECTAL (10/03/2023 1:30 PM FASHION ADVISER) Narrative Sadia Amato M.D. - 10/03/2023 1:30 PM FASHION ADVISER Sadia Amato M.D. ? 10/03/2023 ??2:04 PM URO Prostate US Performed by: Sadia Amato M.D. Authorized by: Jonnathan Rahman APRN, C.N.P., D.N.P., M.S. ?? IMPRESSION: ??Normal prostate ultrasound [...] of 67.1 mm. ??Total volume 68.1 cc. [facility] Danny Rahman APRNN.Jalen, Ana.N.P., M. S. UROLOGY ORDERABLES * URO Uroflow (10/03/2023 11:00 AM FASHION ADVISER) Narrative Orville Jeter M.D. - 10/03/2023 11:00 AM FASHION ADVISER Orville Jeter M.D. ? 10/03/2023 12:31 PM [...] vs hypocontractile bladder. Clinical correlation is recommended. [facility] Danny Rahman APRNN.Jalen, Ana.N.P., M. S. UROLOGY ORDERABLES * SC CYSTOURETHROSCOPY (10/03/2023 9:30 AM FASHION ADVISER) Narrative Anai Wong P.A.-C. - 10/03/2023 9:30 AM FASHION ADVISER Anai Wong P.A.-C. ? 10/03/2023 10:08 AM URO Cystoscopy (general) Performed by: Anai Wong P.A.-C. Authorized by: Jonnathan Rahman APRN, C.N.Jalen, D.N.P., M.S. ?? IMPRESSION ?? BPH and [...] procedure instructions. ?? Jonnathan Rahman APRN, C.N.P., Nida, M. S. UROLOGY ORDERABLES * Bacterial Culture, Aerobic + Susceptibility, Urine (10/03/2023 7:17 AM FASHION ADVISER) Urine Culture No growth after 1 day of incubation. 10/04/2023 8:09 AM FASHION ADVISER DTL Urine (Urine, Midstream) 10/03/2023 7:17 AM FASHION ADVISER 10/03/2023 8:21 AM FASHION ADVISER Comment:Specimen Source Site : Urine [facility] Josiah MCCLELLAN C.N.P., Ana.N.Franklin., M. S. LAB MICROBIOLOGY - GENERAL ORDERABLES [facility] [place] [address] [place] [address], [facility] DTL [facility] [address] [place] [address] * (ABNORMAL) Urinalysis with Microscopic: Urine, Midstream (10/03/2023 7:17 AM FASHION ADVISER) Source Urine, Urine, Midstream 10/03/2023 7:42 AM FASHION ADVISER DTL Color, U Yellow 10/03/2023 7:42 AM FASHION ADVISER DTL Clarity, U Clear 10/03/2023 7:42 AM FASHION ADVISER DTL Protein, U 10 <26 mg/dL 10/03/2023 8:33 AM FASHION ADVISER DTL Protein/Osmol ality 0.24 <0.42 ratio 10/03/2023 8:44 AM FASHION ADVISER DTL Predicted 24 HR Protein, U 239(H) <229 mg/24 h 10/03/2023 8:44 AM FASHION ADVISER DTL Predicted Range 76-752 mg/24 h 10/03/2023 8:44 AM FASHION ADVISER DTL Urine (Urine, Midstream) 10/03/2023 7:17 AM FASHION ADVISER 10/03/2023 7:42 AM FASHION ADVISER [facility] Niranjan MCCLELLAN., Ana.Blu.P., M. S. 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
--- OUTSIDE RECORDS SUMMARY | 2023-12-09 00:10 | XMS_ITS | Encounter Summary ---
Author Name Unknown Organization [facility] Address [address] [place] [phone] Care Team Providers Care Hospice Aide Name Role Phone Elsewhere, Pcp Primary Care Provider Unavailabl e Encounter Details Date Type Department Care Team (Latest Contact Info) Description 09/08/2023 10:28 AM CDT Hospital Encounter Department of Laboratory Medicine and Pathology, [facility] in [place], [place] [address] [place] [phone] Nery, Jonnathan, VY, C.N.P., D.N.P., M.S. [address] [place] [phone] Nodule Prostate Discharge Disposition: Home or Self [...] re latives? Once a week 05/31/2020 Attends [employer] Services Not on file 05/31 Active Member [...] and heating? Not hard at all 05/31/2020 [facility] - Occupational [...] Contact Info) Description 12/13/2023 8:50 AM SALES REPRESENTATIVE CONSULTANT Appointment Department of Laboratory Medicine and Pathology, [facility], in [place], [place] [address] [place] [phone] Natasha Mullins APRN, C.N.P., M.S., M.S.N. [address] [place] [phone] 12/13/2023 11:00 AM SALES REPRESENTATIVE CONSULTANT Office Visit Department of Cardiovascular Medicine in [place], [place] [address] [place] [address] Natasha Mullins APRN, Radha.Diego., M.S., M.S.N. [address] [place] [phone] 02/02/2024 9:15 AM CDT Appointment Department of Cardiovascular Diseases in [place], [place] [address] [place] [phone] Fazal Reynoso M.D. [address] [place] [phone] documented as of this encounter Procedures Procedure Name Priority Date/Time Associated Diagnosis Comments PROSTATE-SPECIFIC AG (PSA) DIAGNOSTIC, S Routine 09/08/2023 10:43 AM CDT Nodule Prostate documented in this encounter Results * PSA (Prostate-Specific Antigen), Diagnostic (09/08/2023 10:43 [...] 10:43 AM CDT 09/08/2023 11:16 AM CDT [facility] Josiah MCCLELLAN, C.N.P., D.N.P., M. S. LAB BLOOD ADD-ON [place] [address] [place] [address], [facility] [address] [place] [address] documented in this encounter Visit Diagnoses Diagnosis Nodule Prostate documented in this encounter Care Teams Hospice Aide Relationship Specialty Start Date End Date Elsewhere, Pcp PCP - General Family Medicine 10/25/18 documented as of this encounter
--- OUTSIDE RECORDS SUMMARY | 2023-12-09 00:10 | XMS_ITS | Encounter Summary ---
Author Name Unknown Organization [facility] Address [address] [place] [address] Care Team Providers Care Appraiser Real Estate Name Role Phone Elsewhere, Pcp Primary Care Provider Unavailabl e Encounter Details Date Type Department Care Team (Late st Contact Info) Description 08/31/2023 Clinical Communication Department of Urology in [place], [place] [address] [place] [address] Provider, Unknown Social History Tobacco Use Types Packs/Day Years Used Date Smoking Tobacco: Never Passive Smoke Exposure: Yes Smokeless Tobacco: Never Alcohol Use Standard Drinks/Week Comments No 0 (1 standard drink = 0.6 oz pur e alcohol) Social Connection and Isolation Panel [NHANES] A nswer Date Recorded Frequency of Communication with Friends and Fami ly Not on file 05/31/2020 How often do you get together with friends or re latives? Once a week 05/31/2020 Attends Rastafari Services Not on file 05/31 Active Member [...] and heating? Not hard at all 05/31/2020 [facility] [place] [facility] Occupat ional Health - Occupational Stress [...] st Contact Info) Description 12/13/2023 8:50 AM PIGS FEET FINISHER Appointment Department of Laboratory Medicine and Pathology, [facility], in [place], [place] [address] [place] [phone] Natasha Mullins APRN, C.N.P., M.S., M.S.N. [address] [place] [phone] 12/13/2023 11:00 AM PIGS FEET FINISHER Office Visit Department of Cardiovascular Medicine in [place], [place] [address] [place] [phone] Natasha Mullins APRN, C.N.Franklin., M.S., M.S.N. [address] [place] [phone] 02/02/2024 9:15 AM CDT Appointment Department of Cardiovascular Diseases in [place], [place] [address] [place] [phone] Fazal Reynoso M.D. [address] [place] [phone] documented as of this encounter Results * Urinalysis with Microscopic: Urine, Midstream (09/08/2023 [...] AM CDT 09/08/2023 11:10 AM CDT Jonnathan Gabriel Danny MCCLELLANNRenetta, Ana.N.P., M. S. LAB URINE ORDERABLES [facility] [address] [place] [address], [facility] DTL Formerly named [facility] [address] [place] [address] * PSA (Prostate-Specific Antigen), Diagnostic (09/08/2023 10:43 [...] CDT 09/08/2023 11:16 AM CDT Jonnathan Rahman APRN, C.N.P., D.N.P., M. S. LAB BLOOD ADD-ON [facility] [address] [place] [address], [facility] DTL [facility] [address] [place] [address] documented in this encounter Visit Diagnoses Diagnosis Nodule Prostate- Primary documented in this encounter Care Teams Appraiser Real Estate Relationship Specialty Start Date End Date Elsewhere, Pcp PCP - General Family Medicine 10/25/18 documented as of this encounter
--- OUTSIDE RECORDS SUMMARY | 2023-12-09 00:10 | XMS_ITS | Encounter Summary ---
Author Name Unknown Organization [facility] Address [address] [place] [address] Care Team Providers Care Telephoner Name Role Phone Elsewhere, Pcp Primary Care Provider Unavailabl e Encounter Details Date Type Department Care Team (Latest Contact Info) Description 04/05/2023 7:30 AM CDT - 04/05/2023 11:59 PM CDT Hospital Encounter Department of Laboratory Medicine and Pathology, [facility] in [place], [place] [address] [place] [address] Dante Brown M.D. [address] [place] [address] Lymphoma Nodular Multiple Site (HCC) Discharge Disposition: Home or Self Care [...] re latives? Once a week 05/31/2020 Attends [employer] Not on file 05/31 Active Member [...] Date Recorded Nutrition: EVOO Fat Source Unknown 05/31 On average, how many serving s of fruits and vegetables do you eat per day (serving size is equal to 1 cup or approximately the size of a tennis ball)? 0-1 05/31/2020 Dental Answer Date Recorded Dental: Regular Dentist Yes 11/10/20 22 Education Answer Date Recorded What is the [...] st Contact Info) Description 12/13/2023 8:50 AM SLAB LIFTING SUPERVISOR Appointment Department of Laboratory Medicine and Pathology, [facility], in [place], [place] [address] [place] [phone] Natasha Mullins APRN, Justin, M.S., M.S.N. [address] [place] [phone] 12/13/2023 11:00 AM SLAB LIFTING SUPERVISOR Office Visit Department of Cardiovascular Medicine in [place], [place] [address] [place] [phone] Natasha Mullins APRN, Justin, M.S., M.S.N. [address] [place] [phone] 02/02/2024 9:15 AM CDT Appointment Department of Cardiovascular Diseases in [place], [place] [address] [place] [phone] Fazal Reynoso M.D. [address] [place] [phone] documented as of this encounter Procedures Procedure Name Priority Date/Time Associated Diagnosis Comments CBC WITH DIFFERENTIAL, B Routine 023 7:45 AM CDT Lymphoma Nodular Multiple Site (HCC) ASPARTATE AMINOTRANSFERASE (AST), S/P Routine 04/05/2023 7:45 AM CDT Lymphoma Nodular Multiple Site (HCC) POTASSIUM, S/P Routine 04/05/2023 7:45 AM CDT Lymphoma Nodular Multiple Site (HCC) ALKALINE PHOSPHATASE, S/P Routine 04/05/2023 7:45 AM CDT Lymphoma Nodular Multiple Site (HCC) LACTATE DEHYDROGENASE (LD), S Routine 04/05/2023 7:45 AM CDT Lymphoma Nodular Multiple Site (HCC) CREATININE WITH EGFR, S/P Routine 04/05/2023 7:45 AM CDT Lymphoma Nodular Multiple Site (HCC) CALCIUM, TOT, S/P Routine 04/05/2023 7:4 5 AM CDT Lymphoma Nodular Multiple Site (HCC) BILIRUBIN, TOT, S/P Routine 04/05/2023 7 :45 AM CDT Lymphoma Nodular Multiple Site (HCC) documented in this encounter Results * Potassium (04/05/2023 7:45 AM CDT) Pathologist [facility] Potassium, S 4.7 3.6 - 5.2 mmol/L 04/05/2023 8:48 AM CDT DTL Blood (Blood, Venous) 04/05/2023 7:45 AM CDT 04/05/2023 8:27 AM CDT Narrative Authorizing Provider Result Manuel Muniz M.D. LAB BLOOD ADD-ON Performing Organization Address City/[facility]/ZIP Co de Phone Number [facility] [address] [place] [address], [facility] [address] [place] [address] * LD (Lactate Dehydrogenase) (04/05/2023 7:45 AM CDT) Pathologist [facility] Lactate Dehydrogenase (LD), S 170 122 - 222 U/L 04/05/2023 8:48 AM CDT DTL Blood (Blood, Venous) 04/05/2023 7:45 AM CDT 04/05/2023 8:27 AM CDT Narrative Authorizing Provider Result Manuel Muniz M.D. LAB BLOOD NON ADD-ON [facility] [address] [place] [address], [facility] 200 [place] [address] * Creatinine with Estimated GFR (04/05/2023 7:45 AM CDT) Creatinine 0.91 0.74 - 1.35 mg/dL 04/05/2023 8:48 AM CDT DTL Estimated GFR (eGFR) 86 >=60 mL/min/BSA 04/05/2023 8:48 AM CDT DTL Comment: Estimated GFR calculated using the 2020 CKD_EPI creatinine equation. Blood (Blood, Venous) 04/05/2023 7:45 AM CDT 04/05/2023 8:27 AM CDT Dante Muniz M.D. LAB BLOOD ADD-ON [facility] 200 [place] [address], [facility] DTL [facility] 200 [place] [address] * (ABNORMAL) CBC with Differential, Blood (04/05/2023 7:45 AM CDT) Hemoglobin 13.4 13.2 - 16.6 g/dL 04/05/2023 9:00 AM CDT DTL Hematocrit 40.2 38.3 - 48.6 % 04/05/2023 9:00 AM CDT DTL Erythrocytes 4.25(L) 4.35 - 5.65 x10(12)/L 04/05/2023 9:00 AM CDT DTL MCV 94.6 78.2 - 97.9 fL 04/05/2023 9:00 AM CDT DTL RBC Distrib Width 13.2 11.8 - 14.5 % 04/05/2023 9:00 AM CDT DTL Platelet Count 192 135 - 317 x10(9)/L 04/05/2023 9:00 AM CDT DTL Leukocytes 4.7 3.4 - 9.6 x10(9)/L 04/05/2023 9:00 AM CDT DTL Neutrophils 2.40 1.56 - 6.45 x10(9)/L 04/05/2023 9:00 AM CDT DTL Lymphocytes 1.23 0.95 - 3.07 x10(9)/L 04/05/2023 9:00 AM CDT DTL Monocytes 0.56 0.26 - 0.81 x10(9)/L 04/05/2023 9:00 AM CDT DTL Eosinophils 0.46 0.03 - 0.48 x10(9)/L 04/05/2023 9:00 AM CDT DTL Basophils <0.03 0.01 - 0.08 x10(9)/L 04/05/2023 9:00 AM CDT DTL Blood (Blood, Venous) 04/05/2023 7:45 AM CDT 04/05/2023 8:08 AM CDT Dante Muniz [place] [address] * (ABNORMAL) Calcium, Total (04/05/2023 7:45 AM CDT) Calcium, Total, S 8.6(L) 8.8 - 10.2 mg/dL 04/05/2023 8:48 AM CDT DTL Blood (Blood, Venous) 04/05/2023 7:45 AM CDT 04/05/2023 8:27 AM CDT Dante Muniz [place] [address] * Bilirubin, Total (04/05/2023 7:45 AM CDT) Bilirubin, Total, S 0.4 <=1.2 mg/dL 04/05/2023 8:48 AM CDT DTL Blood (Blood, Venous) 04/05/2023 7:45 AM CDT 04/05/2023 8:27 AM CDT Narrative Authorizing Provider Result Manuel Muniz M.D. LAB BLOOD ADD-ON [facility] [address] [place] [address], [facility] 200 [place] [address] * AST (Aspartate Aminotransferase) (04/05/2023 7:45 AM CDT) Aspartate Aminotransferase (AST), S 23 8 - 48 U/L 04/05/2023 8:48 AM CDT DTL Blood (Blood, Venous) 04/05/2023 7:45 AM CDT 04/05/2023 8:27 AM CDT Narrative Authorizing Provider Result Manuel Muniz M.D. LAB BLOOD ADD-ON [facility] [address] [place] [address], [facility] 200 [place] [address] * Alkaline Phosphatase (04/05/2023 7:45 AM CDT) Alkaline Phosphatase, S 103 40 - 129 U/L 04/05/2023 8:48 AM CDT DTL Blood (Blood, Venous) 04/05/2023 7:45 AM CDT 04/05/2023 8:27 AM CDT Narrative Authorizing Provider Result Manuel Muniz M.D. LAB BLOOD ADD-ON [facility] [address] [place] [address], [facility] [address] [place] [address] documented in this encounter Visit Diagnoses Diagnosis Lymphoma Nodular Multiple Site (HCC) documented in this encounter Care Teams Telephoner Relationship Specialty Start Date End Date Elsewhere, Pcp PCP - General Family Medicine 10/25/18 documented as of this encounter
--- OUTSIDE RECORDS SUMMARY | 2023-12-09 00:10 | XMS_ITS | Encounter Summary ---
Author Name Unknown Organization [facility] Address [address] [place] [address] Care Team Providers Care Wall Mirror Department Supervisor Name Role Phone Elsewhere, Pcp Primary Care Provider Unavailabl e Reason for Referral * Outpatient (Routine) - Closed Specialty Diagnoses / Procedures Referred By Miguel t Referred To Contact Cardiovascular Disease Natasha Mullins APRN, C.NRenetta, M.S., M.S.N. [address] [place] [phone] [facility] Referral ID Status Reason Start Date Expiration Date Visits Re quested Visits Authorized [id number] Closed 09/07/2023 09/06/2026 1 1 Scheduling Instructions Can use urgent. Need Echo before I see him. Encounter Details Date Type Department Care Team (Latest Contact Info) Description 09/07/2023 Orders Only Department of Cardiovascular Medicine in [place], [place] [address] [place] [phone] Natasha Mullins APRN, C.NRenetta, M.S., M.S.N. [address] [place] [phone] Cardiomyopathy Ischemic (Primary Dx); Chronic Systolic (Congestive) Heart Failure (HCC) Social History Tobacco Use Types Packs/Day [...] heating? Not hard at all 05/31/2020 [facility] [place] of Occupat ional Health - Occupational Stress [...] st Contact Info) Description 12/13/2023 8:50 AM INSIDE WIREMAN Appointment Department of Laboratory Medicine and Pathology, [facility] in [place], [place] [address] [place] [phone] Natasha Mullins APRN, Radha.N.Franklin., M.S., M.S.N. [address] [place] [phone] 12/13/2023 11:00 AM INSIDE WIREMAN Office Visit Department of Cardiovascular Medicine in [place], [place] [address] [place] [phone] Natasha Mullins APRN, Radha.N.P., M.S., M.S.N. [address] [place] [phone] 02/02/2024 9:15 AM CDT Appointment Department of Cardiovascular Diseases [address] [phone] Fazal Reynoso M.D. [address] [place] [phone] Scheduled Referrals Name Type Priority Associated Diagnoses Order Schedule Cardiovascular Disease office visit (clinic) HF Clinic Outpatient Referral Routine Expected: 09/08/2023 (Approximate), Expires: 12/08/2024 documented as of this encounter Visit Diagnoses Diagnosis Cardiomyopathy Ischemic- Primary Chronic Systolic (Congestive) Heart Failure (HCC) documented in this encounter Care Teams Wall Mirror Department Supervisor Relationship Specialty Start Date End Date Elsewhere, Pcp PCP - General Family Medicine 10/25/18 documented as of this encounter
--- OUTSIDE RECORDS SUMMARY | 2023-12-09 00:10 | XMS_ITS | Encounter Summary ---
Author Name Unknown Organization [facility] Address [address] [place] [address] Care Team Providers Care Coal Passer Name Role Phone Elsewhere, Pcp Primary Care Provider Unavailabl e Reason for Visit * Outpatient (Routine) - Closed Specialty Diagnoses / Procedures Referred By Miguel arzola Referred To Contact Diagnoses Nodule Prostate Retention Urinary Procedures URO Prostate US NeryJonnathan APRN C.N.PCarmine, D.N.P., M.S. [address] [place] [phone] Referral ID Status Reason Start Date Expiration Date Visits Re quested Visits Authorized [id number] Closed 09/08/2023 09/07/2024 1 1 Encounter Details Date Type Department Care Team (Latest Contact Info) Description 10/03/2023 1:30 PM MARKETING FORECASTER Procedure visit Department of Urology in [place], [place] [address] [place] [place] [phone] NeryJonnathan APRN C.N.PCarmine, D.N.P., M.S. [address] [place] [phone] Sadia Amato M.D. [address] [place] [phone] Nodule Prostate; Retention Urinary Social History Tobacco [...] re latives? Once a week 05/31/2020 Attends [employer] Not on file 05/31 Active Member [...] and heating? Not hard at all 05/31/2020 [facility] [place] of Occupat ional Health - Occupational [...] as of this encounter Progress Notes * Paxton Thomas - 10/03/2023 1:30 PM CST Patient was seen for prostate ultrasound . Probe used: serial number [id number] ([id number]). Procedure performed by Dr. Sadia Amato . ETING FORECASTER documented in this encounter Procedure Notes * Sadia Amato M.D. - 10/03/2023 1:30 PM CSTAssociated Order(s): URO Prostate US Pre-Procedure Diagnose(s): Nodule Prostate; Retention Urinary Post-Procedure Diagnose(s): Nodule Prostate; Retention Urinary URO Prostate US Performed by: Sadia Amato M.D. Authorized by: Jonnathan Rahman APRN, C.N.P., D.N.P., M.S. IMPRESSION: Normal prostate ultrasound PROCEDURE DETAILS: Palpable nodule at right prostatic apex. Ultrasound demonstrated width of 58.8 mm, height of 33.0 mm, length of 67.1 mm. Total volume 68.1 cc. Ultrasound image guidance used to localize target, identify at risk structures, and dynamically used to direct therapy to the target. Image(s) acquired and saved. Number of images obtained: 3. COMMENTS Palpable nodule at right prostatic apex. Ultrasound demonstrated width of 58.8 mm, height of 33.0 mm, length of 67.1 mm. Total volume 68.1 cc. ETING FORECASTER documented in this encounter Plan of Treatment Upcoming Encounters Date Type Department Care Team (Late st Contact Info) Description 12/13/2023 8:50 AM MARKETING FORECASTER Appointment Department of Laboratory Medicine and Pathology, [facility], in [place] [address] [place] [phone] Natasha Mullins APRN, C.N.PCarmine, M.S., M.S.N. [address] [place] [phone] 12/13/2023 11:00 AM MARKETING FORECASTER Office Visit Department of Cardiovascular Medicine in [place], [place] [address] [place] [phone] Natasha Mullins APRN, Radha.N.Jalen, M.S., M.S.N. [address] [place] [phone] 02/02/2024 9:15 AM CDT Appointment Department of Cardiovascular Diseases in [place], [place] [address] [place] [place] [phone] Fazal Reynoso M.D. [address] [place] [phone] documented as of this encounter Procedures Procedure Name Priority Date/Time Associated Diagnosis Comments DC US TRANSRECTAL Routine 10/03/2023 1:3 0 PM MARKETING FORECASTER Nodule Prostate Retention Urinary documented in this encounter Results * DC US TRANSRECTAL (10/03/2023 1:30 PM MARKETING FORECASTER) Narrative Sadia Amato M.D. - 10/03/2023 1:30 PM MARKETING FORECASTER Sadia Amato M.D. ? 10/03/2023 ??2:04 PM URO Prostate US Performed by: Sadia Amato M.D. Authorized by: Jonnathan Rahman APRN, C.N.PCarmine, D.N.PCarmine, M.S. ?? IMPRESSION: ??Normal prostate ultrasound PROCEDURE [...] of 67.1 mm. ??Total volume 68.1 cc. [facility], C.N.P., D.N.P., M. S. UROLOGY ORDERABLES documented in this encounter Visit Diagnoses Diagnosis Nodule Prostate Retention Urinary documented in this encounter Care Teams Coal Passer Relationship Specialty Start Date End Date Elsewhere, Pcp PCP - General Family Medicine 10/25/18 documented as of this encounter
--- OUTSIDE RECORDS SUMMARY | 2023-12-09 00:11 | XMS_ITS | Encounter Summary ---
Author Name Unknown Organization [facility] Address [address] [place] [address] Care Team Providers Care Officer Lieutenant Name Role Phone Elsewhere, Pcp Primary Care Provider Unavailabl e Reason for Referral * Outpatient (Routine) - Closed Specialty Diagnoses / Procedures Referred By Miguel t Referred To Contact Cardiovascular Disease Gigi Cummings M.D., Ph.D. [address] [place] [phone] [facility] Referral ID Status Reason Start Date Expiration Date Visits Re quested Visits Authorized [id number] Closed 02/10/2023 02/09/2026 1 1 Scheduling Instructions Please schedule a telephone visit with Dr. Cummings on 02/12/23 at 10 am Reason for Visit * Outpatient (Routine) - Closed Specialty Diagnoses / Procedures Referred By Contac t Referred To Contact Cardiovascular Diseases / Cardiovascular Disease Diagnoses Beat Premature Ventricular Natasha Mullins APRN, C.N.P., M.S., M.S.N. [address] [place] [phone] [facility] Referral ID Status Reason Start Date Expiration Date Visits Re quested Visits Authorized [id number] Closed 11/02/2022 11/02/2023 1 1 Encounter Details Date Type Department Care Team (Latest Contact Info) Description 02/10/2023 10:00 AM CDT Comprehensive Visit Department of Cardiovascular Medicine in [place], [place] [address] [place] [phone] Gigi Cummings M.D., Ph.D. [address] [place] [phone] Beat Premature Ventricular Social History Tobacco Use Types Packs/Day Years Used Date Smoking Tobacco: Passive Smo ke Exposure - Never Smoker Smokeless Tobacco: Never [...] and heating? Not hard at all 05/31/2020 [facility] [place] of Occupat ional Health - Occupational Stress [...] Date Recorded Dental: Regular Dentist Yes 11/10/20 Education Answer Date Recorded What is the [...] Sign Reading Time Taken Comments Blood Pressure 156/88 02/10/2023 10:03 AM CDT Pulse 75 02/10/2023 10:03 AM CDT Temperature - - Respiratory Rate - - Oxygen Saturation - - Inhaled Oxygen Concentration - - Weight 81.1 kg (178 lb 14.5 oz) 023 10:03 AM CDT Height 173.3 cm (5' 8.23) 02/10/2023 1 0:03 AM CDT Body Mass Index 27.02 02/10/2023 10:03 AM CDT documented in this encounter Consult Notes * Gigi Cummings M.D., Ph.D. - 02/10/2023 10:00 AM CDT SUBJECTIVE REASON FOR CONSULT Ventricular ectopy. HISTORY OF PRESENT ILLNESS I visited with Mr. Khanna [id number] today. Mr. Khanna is a 77-year-old gentleman with an ischemic cardiomyopathy and a history of thyroid cancer. He has a history of myocardial infarction, and he went underwent percutaneous coronary intervention in the past. Transthoracic echocardiogram from October 12, 2022, showed mild left ventricular enlargement with a left ventricular ejection fraction of 40% to 45%. Holter monitor from October 16, 2022, showed predominantly sinus rhythm with a PVC burden of 19%, with no sustained ventricular arrhythmias present. PAC burden was9%. ECG from November 26, 2022, showed sinus rhythm at 80 beats per minute with left anterior fascicu lar block and no PVCs present. Mr. Khanna has no dyspnea on exertion and no exertional chest discomfort or recent episodes of loss of consciousness. OBJECTIVE VITAL SIGNS Blood pressure 156/88. Pulse 75. DIAGNOSTICS Laboratory studies from November 26, 2022, remarkable for normal serum potassium and creatinine. TSHon November 26, 2022, was 0.03 with an elevated free thyroxine level of 2.3. TSH yesterday was 0.2. Myocardial perfusion scan from November 2022 showed medium-sized partially reversible defect associated with the anterior, anteroseptal, and apical left ventricular lomeli. Holter monitor from this week is pending. ASSESSMENT / PLAN #1 Ischemic cardiomyopathy with left ventricular ejection fraction of 40% to 45% #2 History of frequent ventricular ectopy #3 Decreased TSH #4 History of thyroid cancer #5 History of Mobitz I second-degree AV block Mr. Khanna's ventricular ectopy is largely asymptomatic. The degree to which ventricular ectopy mayhave been a contributor to his reduced left ventricular ejection fraction is uncertain. Overall, his left ventricular ejection fraction was higher at the time of his last echocardiogram in September 2022 at 40% to 45% in comparison to his left ventricular ejection fraction in 2016, at which time hisleft ventricular ejection fraction was 30%. As Natasha Fagan noted in November 2022, thyroid hormonereplacement may have contributed to an increase in the frequency of his PVCs, and Dr. Wu reduced his levothyroxine dose 2 months ago. His TSH has subsequently increased somewhat. Mr. Khanna wore a Holter monitor this week, and the results are not yet available. He and I will speak by phone in 2days to discuss the results of his Holter monitor. At that time, we will revisit treatment options,if needed, for his ventricular ectopy. Total time is 45 minutes, counseling time 25 minutes. Gigi Cummings M.D., Ph.D. CT CT Job ID: [id number] documented in this encounter Plan of Treatment Upcoming Encounters Date Type Department Care Team (Late st Contact Info) Description 12/13/2023 8:50 AM SENIOR JAVA DATA ARCHITECT Appointment Department of Laboratory Medicine and Pathology, [facility], in [place], [place] [address] [place] [phone] Natasha Mullins APRN, Justin, M.S., M.S.N. [address] [place] [phone] 12/13/2023 11:00 AM SENIOR JAVA DATA ARCHITECT Office Visit Department of Cardiovascular Medicine in [place], [place] [address] [place] [phone] Natasha Mullins APRN, Niranjan., M.S., M.S.N. [address] [place] [phone] 02/02/2024 9:15 AM CDT Appointment Department of Cardiovascular Diseases in [place], [place] [address] [place] [phone] Fazal Reynoso M.D. [address] [place] [phone] Scheduled Referrals Name Type Priority Associated Diagnoses Order Schedule Cardiovascular Disease office visit (clinic) General Outpatient Referral Routine Expected: 02/12/2023, Expires: 05/13/2024 documented as of this encounter Visit Diagnoses Diagnosis Beat Premature Ventricular documented in this encounter Care Teams Officer Lieutenant Relationship Specialty Start Date End Date Elsewhere, Pcp PCP - General Family Medicine 10/25/18 documented as of this encounter
--- OUTSIDE RECORDS SUMMARY | 2023-12-09 00:11 | XMS_ITS | Encounter Summary ---
Author Name Unknown Organization [facility] Address [address] [place] [address] Care Team Providers Care Clay Molder Name Role Phone Elsewhere, Pcp Primary Care Provider Unavailabl e Reason for Referral * Outpatient (Routine) - Closed Specialty Diagnoses / Procedures Referred By Contac t Referred To Contact Diagnoses Atrial Fibrillation Unspecified (HCC) Procedures ECG Heart rhythm monitor (Holter) Gigi Cummings M.D., Ph.D. 200 [place] [address] [facility] Referral ID Status Reason Start Date Expiration Date Visits Re quested Visits Authorized [id number] Closed 11/17/2022 11/17/2023 1 1 Reason for Visit * Outpatient (Routine) - Closed Specialty Diagnoses / Procedures Referred By Contac t Referred To Contact Diagnoses Atrial Fibrillation Unspecified (HCC) Procedures ECG Heart rhythm monitor (Holter) Gigi Cummings M.D., Ph.D. [address] [place] [phone] [facility] Referral ID Status Reason Start Date Expiration Date Visits Re quested Visits Authorized [id number] Closed 11/17/2022 11/17/2023 1 1 Encounter Details Date Type Department Care Team (Latest Contact Info) Description 02/09/2023 9:58 AM CDT - 02/09/2023 11:59 PM CDT Hospital Encounter Department of Cardiovascular Diseases in [place], [place] 200 [place] [address] Gigi Cummings M.D., Ph.D. 200 [place] [address] Atrial Fibrillation Unspecified Discharge Disposition: Home or Self Care Social [...] re latives? Once a week 05/31/2020 Attends Jewish Services Not on file 05/31 Active Member [...] and heating? Not hard at all 05/31/2020 [facility] [place] of Occupat ional Health - Occupational Stress [...] st Contact Info) Description 12/13/2023 8:50 AM SIGNAL TESTER Appointment Department of Laboratory Medicine and Pathology, [facility] in [place], [place] [address] [place] [phone] Natasha Mullins APRN, C.N.P., M.S., M.S.N. [address] [place] [phone] 12/13/2023 11:00 AM SIGNAL TESTER Office Visit Department of Cardiovascular Medicine in [place], [place] [address] [place] [phone] Natasha Mullins APRN, C.N.Franklin., M.S., M.S.N. [address] [place] [phone] 02/02/2024 9:15 AM CDT Appointment Department of Cardiovascular Diseases in [place], [place] 200 [place] [address] Fazal Reynoso M.D. [address] [place] [address] documented as of this encounter Procedures Procedure Name Priority Date/Time Associated Diagnosis Comments HOLTER MONITOR - IN CLINIC SLIDE DEVELOPER Routine 02/10/2023 10:30 AM CDT Atrial Fibrillation Unspecified documented in this encounter Results * HOLTER MONITOR - IN CLINIC SLIDE DEVELOPER (02/10/2023 10:30 AM CDT) SVT Runs 4 count HOLTER SENTINEL VE Total Beats 2,411 count RAGHAV R SENTINEL Bradycardia Runs 0 count HOLTER SENTINEL SVE Percent Beats 9 percent HOLTER SENTINEL SVE Max Per Hour 821 count HOLTER SENTINEL VE Max Per Hour Time [id number] HOLTER SENTINEL Min Heart Rate Time [id number] HOLTER SENTINEL Min Heart Rate 59 RAGHAV R SENTINEL Max Heart Rate Time [id number] HOLTER SENTINEL SVE Max Per Hour Time [id number] HOLTER SENTINEL Analysis Date 20,230,331 RAGHAV R SENTINEL Recording Date [id number] HOLTER SENTINEL SVT Max Rate 135 HOLTER SENTINEL Max Heart Rate 104 RAGHAV R SENTINEL VE Percent Beats 2 percent HOLTER SENTINEL Holter Pauses 0 count HOLTER SENTINEL SVE Total Beats 9,442 count HOLTER SENTINEL AF Count 0 count HOLTER SENTINEL VE Max Per Hour 196 count HOLTER SENTINEL Mean Heart Rate 79 HOLTER SENTINEL VT Runs 0 count HOLTER SENTINEL Tachycardia Runs 0 count HOLTER SENTINEL 02/09/2023 7:27 AM CDT Gigi Cummings M.D., Ph.D. CV CARDIAC S ERVICES PROCEDURES HOLTER SENTINEL NA documented in this encounter Visit Diagnoses Diagnosis Atrial Fibrillation Unspecified (HCC) documented in this encounter Care Teams Clay Molder Relationship Specialty Start Date End Date Elsewhere, Pcp PCP - General Family Medicine 10/25/18 documented as of this encounter
--- OUTSIDE RECORDS SUMMARY | 2023-12-09 00:11 | XMS_ITS | Encounter Summary ---
Author Name Unknown Organization [facility] Address [address] [place] [address] Care Team Providers Care Director Executive Communications Name Role Phone Elsewhere, Pcp Primary Care Provider Unavailabl e Encounter Details Date Type Department Care Team (Latest Contact Info) Description 04/04/2023 9:30 AM CDT Clinical Communication Virtual Review in [place], [place] [address] [place], [place] [address] Social History Tobacco Use Types Packs/Day Years Used Date Smoking Tobacco: Never Passive Smoke Exposure: Yes Smokeless Tobacco: Never Tobacco Cessation:Counseling Given: Not Answered Alcohol Use Standard Drinks/Week Comments No 0 [...] and heating? Not hard at all 05/31/2020 [facility] of Occupat ional Health - Occupational Stress [...] st Contact Info) Description 12/13/2023 8:50 AM GAS SHOVEL OPERATOR Appointment Department of Laboratory Medicine and Pathology, [facility], in [place], [place] 200 [place] [phone] Natasha Mullins APRN, C.N.P., M.S., M.S.N. [address] [place] [phone] 12/13/2023 11:00 AM GAS SHOVEL OPERATOR Office Visit Department of Cardiovascular Medicine in [place], [place] [address] [place] [address] Natasha Mullins APRN, C.N.P., M.S., M.S.N. [address] [place] [phone] 02/02/2024 9:15 AM CDT Appointment Department of Cardiovascular Diseases in [place], [place] [address] [place] [phone] Fazal Reynoso M.D. [address] [place] [phone] documented as of this encounter Visit Diagnoses Not on filedocumented in this encounter Care Teams Director Executive Communications Relationship Specialty Start Date End Date Elsewhere, Pcp PCP - General Family Medicine 10/25/18 documented as of this encounter
--- OUTSIDE RECORDS SUMMARY | 2023-12-09 00:11 | XMS_ITS | Encounter Summary ---
Author Name Unknown Organization [facility] Address [address] [place] [address] Care Team Providers Care Patient Escort Name Role Phone Elsewhere, Pcp Primary Care Provider Unavailabl e Reason for Referral * Outpatient (Routine) - Authorized Specialty Diagnoses / Procedures Referred By Miguel arzola Referred To Contact Hematology Oncology Dante Borwn M.D. [address] [place] [address] [facility] Referral ID Status Reason Start Date Expiration Date V isits Requested Visits Authorized [id number] Authorized 04/05/2023 04/04/2026 1 1 Reason for Visit * Outpatient (Routine) - Closed Specialty Diagnoses / Procedures Referred By Miguel arzola Referred To Contact Hematology Oncology Dante Brown M.D. [address] [place] [address] [facility] Referral ID Status Reason Start Date Expiration Date Visits Re quested Visits Authorized [id number] Closed 04/09/2022 04/09/2023 1 1 Encounter Details Date Type Department Care Team ([facility] st Contact Info) Description 04/05/2023 10:30 AM CDT Office Visit Division of Hematology in [place], [place] [address] [place] [phone] Dante Brown M.D. [address] [place] [address] Unspecified B Cell Lymphoma Lymph Nodes Of Multiple Sites (HCC) (Primary Dx) Social History Tobacco Use Types [...] re latives? Once a week 05/31/2020 Attends Yazidi Services Not on file 05/31 Active Member [...] and heating? Not hard at all 05/31/2020 [facility] [place] of Occupat ional Health - Occupational Stress [...] Sign Reading Time Taken Comments Blood Pressure 129/71 04/05/2023 10:18 AM CDT Pulse 33 04/05/2023 10:18 AM CDT Temperature 35.8 ??C (96.4 ??F) 04/05/2023 10:18 AM C DT Respiratory Rate - - Oxygen Saturation - - Inhaled Oxygen Concentration - - Weight 80 kg (176 lb 5.9 oz) 04/05/2023 10:18 AM CDT Height 175 cm (5' 8.9) 04/05/2023 10:18 AM CDT Body Mass Index 26.12 04/05/2023 10:18 AM CDT documented in this encounter Progress Notes * Dante Brown M.D. - 04/05/2023 10:30 AM CDT SUBJECTIVE REASON FOR CONSULT B-cell non-Hodgkin lymphoma HISTORY OF PRESENT ILLNESS Patient is a 77 y.o. man with previous medical history significant [...] clinic for scheduled evaluation. Last seen by me on April 23, 2022, no major clinical events in the interim. Continues to follow with endocrinology for his papillary thyroid carcinoma, no evidence of recurrence. On my interview today he denies any active symptoms or concerns. MEDICATIONS Reviewed. REVIEW OF SYSTEMS All systems reviewed and negative except for HPI. OBJECTIVE Vitals: 04/05/23 1018 BP: 129/71 Patient Position: Sitting Pulse: (!) 33 Temp: (!) 35.8 ??C Height: 175 cm Weight: 80 kg Body surface area is 1.97 meters squared. PHYSICAL EXAM General: Unaccompanied. No [...] past 72 hour(s)) Alkaline Phosphatase Collection Time: 04/05/23 7:45 AM Result Value Alkaline Phosphatase, S 103 AST (Aspartate Aminotransferase) Collection Time: 04/05/23 7:45 AM Result Value Aspartate Aminotransferase (AST), S 23 Bilirubin, Total Collection Time: 04/05/23 7:45 AM Result Value Bilirubin, Total, S 0.4 Calcium, Total Collection Time: 04/05/23 7:45 AM Result Value Calcium, Total, S 8.6 (L) CBC with Differential, Blood Collection Time: 04/05/23 7:45 AM Result Value Hemoglobin 13.4 Hematocrit 40.2 Erythrocytes 4.25 (L) MCV 94.6 RBC Distrib Width 13.2 Platelet Count 192 Leukocytes 4.7 Neutrophils 2.40 Lymphocytes 1.23 Monocytes 0.56 Eosinophils 0.46 Basophils <0.03 Creatinine with Estimated GFR Collection Time: 04/05/23 7:45 AM Result Value Creatinine 0.91 Estimated GFR (eGFR) 86 LD (Lactate Dehydrogenase) Collection Time: 04/05/23 7:45 AM Result Value Lactate Dehydrogenase (LD), S 170 Potassium Collection Time: 04/05/23 7:45 AM Result Value Potassium, S 4.7 ASSESSMENT / PLAN #1 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 At this time there is no clinical evidence of lymphoma recurrence/progression on the basis of history, physical examination, or laboratorydata. He is asymptomatic. I recommend yearly follow-up with us in the lymphoma clinic. He will continue to follow-up with endocrinology for his treated metastatic papillary thyroid cancer. #3 Normocytic anemia, resolved #4 Iron-deficiency, treated His hemoglobin today is normal. He completed upper and lower endoscopy with primary care physician.These were reportedly within normal limits. At this moment iron supplementation may stop. He will continue to follow-up with PCP. Follow-up: Return to clinic in 1 year for lymphoma surveillance. Education We discussed the diagnosis and treatment plan in detail. The patient expressed understanding of thecontent. No apparent learning barriers were identified; learning preferences include listening. I personally spent over half of a total 35 minutes face to face with the patient in counseling and discussion and/or coordination of care as described above. Signed by: Laura Muniz M.D. 04/05/2023 documented in this encounter Plan of Treatment Upcoming Encounters Date Type Department Care Team (Late st Contact Info) Description 12/13/2023 8:50 AM AED TRAINER Appointment Department of Laboratory Medicine and Pathology, [facility] in [place], [place] [address] [place] [phone] Natasha Mullins APRN, C.N.P., M.S., M.S.N. [address] [place] [address] 12/13/2023 11:00 AM AED TRAINER Office Visit Department of Cardiovascular Medicine in [place], [place] [address] [place] [phone] Natasha Mullins APRN, C.N.P., M.S., M.S.N. [address] [place] [phone] 02/02/2024 9:15 AM CDT Appointment Department of Cardiovascular Diseases in [place], [place] [address] [place] [phone] Fazal Reynoso M.D. [address] [place] [phone] Scheduled Orders Name Type Priority Associated Diagnoses Orde r Schedule Alkaline Phosphatase Lab Routine Unspecified B Cell Lymphoma Lymph Nodes Of Multiple Sites (HCC) Expected: 04/05/2024 (Approximate), Expires: 04/05/2026 AST (Aspartate Aminotransferase) Lab Routine Unspecified B Cell Lymphoma Lymph Nodes Of Multiple Sites (HCC) Expected: 04/05/2024 (Approximate), Expires: 04/05/2026 Bilirubin, Total Lab Routine Unspecified B Cell Lymphoma Lymph Nodes Of Multiple Sites (HCC) Expected: 04/05/2024 (Approximate), Expires: 04/05/2026 Calcium, Total Lab Routine Unspecified B Cell Lymphoma Lymph Nodes Of Multiple Sites (HCC) Expected: 04/05/2024 (Approximate), Expires: 04/05/2026 CBC with Differential, Blood Lab Routine Unspecified B Cell Lymphoma Lymph Nodes Of Multiple Sites (HCC) Expected: 04/05/2024 (Approximate), Expires: 04/05/2026 Creatinine with Estimated GFR Lab Routine Unspecified B Cell Lymphoma Lymph Nodes Of Multiple Sites (HCC) Expected: 04/05/2024 (Approximate), Expires: 04/05/2026 LD (Lactate Dehydrogenase) Lab Routine Unspecified B Cell Lymphoma Lymph Nodes Of Multiple Sites (HCC) Expected: 04/05/2024 (Approximate), Expires: 04/05/2026 Potassium Lab Routine Unspecified B Cell Lymphoma Lymph Nodes Of Multiple Sites (HCC) Expected: 04/05/2024 (Approximate), Expires: 04/05/2026 Scheduled Referrals Name Type Priority Associated Diagnoses Order Schedule Hematology office visit (clinic) [place]; Lymphoma; General Outpatient Referral Routine Expected: 04/05/2024 (Approximate), Expires: 07/06/2024 documented as of this encounter Visit Diagnoses Diagnosis Unspecified B Cell Lymphoma Lymph Nodes Of Multiple Sites (HCC)- Primary documented in this encounter Care Teams Patient Escort Relationship Specialty Start Date End Date Elsewhere, Pcp PCP - General Family Medicine 10/25/18 documented as of this encounter
--- OUTSIDE RECORDS SUMMARY | 2023-12-09 00:11 | XMS_ITS | Encounter Summary ---
Author Name Unknown Organization [facility] Address [address] [place] [address] Care Team Providers Care Cardio Tech Name Role Phone Elsewhere, Pcp Primary Care Provider Unavailabl e Reason for Visit * Outpatient (Routine) - Closed Specialty Diagnoses / Procedures Referred By Miguel t Referred To Contact Cardiovascular Disease Gigi Cummings M.D., Ph.D. [address] [place] [phone] [facility] Referral ID Status Reason Start Date Expiration Date Visits Re quested Visits Authorized [id number] Closed 02/10/2023 02/09/2026 1 1 Encounter Details Date Type Department Care Team (Latest Contact Info) Description 02/12/2023 10:00 AM CDT Virtual Visit Department of Cardiovascular Medicine in [place], [place] [address] [place] [phone] Gigi Cummings M.D., Ph.D. [address] [place] [phone] Beat Premature Ventricular (Primary Dx) Social History Tobacco Use Types [...] and heating? Not hard at all 05/31/2020 [facility] [place] of Occupat ional Health - Occupational Stress [...] as of this encounter Progress Notes * Gigi Cummings M.D., Ph.D. - 02/12/2023 10:00 AM CDT SUBJECTIVE CHIEF COMPLAINT/REASON FOR VISIT Holter monitor results not available at the time of Mr. Khanna's recent clinic visit. HISTORY OF PRESENT ILLNESS I visited with Mr. Khanna by telephone because of the coronavirus epidemic. Mr. Khanna underwent Holter monitoring on February 10, 2023. His Holter monitor result is now available. This showed predominantly sinus rhythm with rates ranging from 59 to 104 beats per minute with an average heart rate of 79 beats per minute. PVC frequency was 2%, and SVPC frequency was 9%. There were no prolonged pauses or episodes of ventricular tachycardia or atrial fibrillation noted. At 8 a.m. on February 09, 2023, and at 3:14 p.m. on February 09, 2023, available tracings showed Mobitz I second-degree AV block. These episodes were apparently asymptomatic. ASSESSMENT / PLAN #1 Ischemic cardiomyopathy with left ventricular ejection fraction of 40% to 45% #2 History of frequent ventricular ectopy #3 Decreased TSH #4 History of thyroid cancer #5 History of Mobitz I second-degree AV block I reassured Mr. Khanna that his PVC frequency is relatively low at 2%. As such, he does not have a strong indication for antiarrhythmic drug therapy or catheter ablation at this time. The decrease inhis PVC frequency may reflect treatment of his hyperthyroidism with adjustment of his levothyroxinedose recently. He plans to return to see Natasha Fagan in the fall of 2022. Total time is 30 minutes, counseling time 5 minutes. Gigi Cummings M.D., Ph.D. CT CT Job ID: [id number]/[facility] documented in this encounter Plan of Treatment Upcoming Encounters Date Type Department Care Team (Late st Contact Info) Description 12/13/2023 8:50 AM REPLENISHER Appointment Department of Laboratory Medicine and Pathology, [facility] in [place], [place] [address] [place] [phone] Natasha Mullins APRN, C.N.P., M.S., M.S.N. [address] [place] [phone] 12/13/2023 11:00 AM REPLENISHER Office Visit Department of Cardiovascular Medicine in [place], [place] [address] [place] [phone] Natasha Mullins APRN, C.N.P., M.S., M.S.N. [address] [place] [phone] 02/02/2024 9:15 AM CDT Appointment Department of Cardiovascular Diseases in [place], [place] [address] [place] [phone] Fazal Reynoso M.D. [address] [place] [phone] documented as of this encounter Visit Diagnoses Diagnosis Beat Premature Ventricular- Primary documented in this encounter Care Teams Cardio Tech Relationship Specialty Start Date End Date Elsewhere, Pcp PCP - General Family Medicine 10/25/18 documented as of this encounter
--- OUTSIDE RECORDS SUMMARY | 2023-12-09 00:11 | XMS_ITS | Encounter Summary ---
Author Name Unknown Organization [facility] Address [address] [place] [address] Care Team Providers Care Instructor Adjunct Surgical Technician Name Role Phone Elsewhere, Pcp Primary Care Provider Unavailabl e Reason for Visit * Reason Onset Date Comments Pre-visit Intake 02/08/2023 Encounter Details Date Type Department Care Team (Latest Contact Info) Description 02/08/2023 8:00 AM CDT Clinical Communication Virtual Review in [place], [place] [address] [place] [address] Pre-visit Intake Social History Tobacco [...] re latives? Once a week 05/31/2020 Attends Restorationist Services Not on file 05/31 Active Member [...] and heating? Not hard at all 05/31/2020 [facility] [place] of Occupat ional Health - Occupational Stress [...] st Contact Info) Description 12/13/2023 8:50 AM ARMED GUARD Appointment Department of Laboratory Medicine and Pathology, [facility], in [place], [place] [address] [place] [phone] Natasha Mullins APRN, C.N.P., M.S., M.S.N. [address] [place] [phone] 12/13/2023 11:00 AM ARMED GUARD Office Visit Department of Cardiovascular Medicine in [place], [place] [address] [place] [phone] Natasha Mullins APRN, C.N.P., M.S., M.S.N. [address] [place] [phone] 02/02/2024 9:15 AM CDT Appointment Department of Cardiovascular Diseases in [place], [place] [address] [place] [phone] Fazal Reynoso M.D. [address] [place] [phone] documented as of this encounter Visit Diagnoses Not on filedocumented in this encounter Care Teams Instructor Adjunct Surgical Technician Relationship Specialty Start Date End Date Elsewhere, Pcp PCP - General Family Medicine 10/25/18 documented as of this encounter
--- OUTSIDE RECORDS SUMMARY | 2023-12-09 00:11 | XMS_ITS | Encounter Summary ---
Author Name Unknown Organization [facility] Address [address] [place] [address] Care Team Providers Care Vacuum System Tester Name Role Phone Elsewhere, Pcp Primary Care Provider Unavailabl e Encounter Details Date Type Department Care Team (Late st Contact Info) Description 11/29/2022 Orders Only Division of Endocrinology in [place], [place] [address] [place] [phone] Loni Wu M.D. [address] [place] [phone] Social History Tobacco Use Types Packs/Day Years [...] re latives? Once a week 05/31/2020 Attends Judaism Services Not on file 05/31 Active Member [...] and heating? Not hard at all 05/31/2020 [facility] [place] of Occupat ional Health - Occupational Stress [...] st Contact Info) Description 12/13/2023 8:50 AM PUBLIC RELATIONS COORDINATOR Appointment Department of Laboratory Medicine and Pathology, [facility] in [place], [place] [address] [place] [phone] Natasha Mullins APRN, C.N.P., M.S., M.S.N. [address] [place] [phone] 12/13/2023 11:00 AM PUBLIC RELATIONS COORDINATOR Office Visit Department of Cardiovascular Medicine in [place], [place] [address] [place] [phone] Natasha Mullins APRN, Radha.Diego., M.S., M.S.N. [address] [place] [phone] 02/02/2024 9:15 AM CDT Appointment Department of Cardiovascular Diseases in [place], [place] [address] [place] [phone] Fazal Reynoso M.D. [address] [place] [phone] documented as of this encounter Visit Diagnoses Not on filedocumented in this encounter Care Teams Vacuum System Tester Relationship Specialty Start Date End Date Elsewhere, Pcp PCP - General Family Medicine 10/25/18 documented as of this encounter
--- OUTSIDE RECORDS SUMMARY | 2023-12-09 00:11 | XMS_ITS | Encounter Summary ---
Author Name Unknown Organization [facility] Address [address] [place] [address] Care Team Providers Care Broach Trouble Shooter Name Role Phone Elsewhere, Pcp Primary Care Provider Unavailabl e Encounter Details Date Type Department Care Team (Latest Contact Info) Description 12/21/2022 Clinical Communication Department of Cardiovascular Medicine in [place], [place] [address] [place] [phone] Natasha Mullins APRN, C.N.P., M.S., M.S.N. [address] [place] [phone] Social History Tobacco Use Types Packs/Day Years [...] and heating? Not hard at all 05/31/2020 [facility] - Occupational Stress Questionnaire [...] st Contact Info) Description 12/13/2023 8:50 AM SANDBLASTER PAINT SPRAYER Appointment Department of Laboratory Medicine and Pathology, [facility], in [place], [place] [address] [place] [phone] Natasha Mullins APRN, C.N.P., M.S., M.S.N. [address] [place] [phone] 12/13/2023 11:00 AM SANDBLASTER PAINT SPRAYER Office Visit Department of Cardiovascular Medicine in [place], [place] [address] [place] [phone] Natasha Mullins APRN, C.N.P., M.S., M.S.N. [address] [place] [phone] 02/02/2024 9:15 AM CDT Appointment Department of Cardiovascular Diseases in [address] [phone] Fazal Reynoso M.D. [address] [place] [phone] documented as of this encounter Visit Diagnoses Not on filedocumented in this encounter Care Teams Broach Trouble Shooter Relationship Specialty Start Date End Date Elsewhere, Pcp PCP - General Family Medicine 10/25/18 documented as of this encounter
--- OUTSIDE RECORDS SUMMARY | 2023-12-09 00:11 | XMS_ITS | Encounter Summary ---
Author Name Unknown Organization [facility] Address [address] [place] [address] Care Team Providers Care Ceo & Co Founder Name Role Phone Elsewhere, Pcp Primary Care Provider Unavailabl e Encounter Details Date Type Department Care Team (Late st Contact Info) Description 12/21/2022 Orders Only Department of Cardiovascular Medicine in [place], [place] [address] [place] [phone] Natasha Mullins APRN, C.N.P., M.S., M.S.N. [address] [place] [phone] Beat Premature Ventricular (Primary Dx); Apnea Sleep Obstructive Social History Tobacco Use Types Packs/Day Years [...] and heating? Not hard at all 05/31/2020 [facility] - Occupational [...] st Contact Info) Description 12/13/2023 8:50 AM FEED MILL LAB TECHNICIAN Appointment Department of Laboratory Medicine and Pathology, [facility], in [place], [place] [address] [place] [phone] Natasha Mullins, VY, C.N.P., M.S., M.S.N. [address] [place] [phone] 12/13/2023 11:00 AM FEED MILL LAB TECHNICIAN Office Visit Department of Cardiovascular Medicine in [place], [place] [address] [place] [phone] Natasha Mullins APRN, C.N.P., M.S., M.S.N. [address] [place] [phone] 02/02/2024 9:15 AM CDT Appointment Department of Cardiovascular Diseases in [place], [place] [address] [place] [phone] Fazal Reynoso M.D. [address] [place] [phone] documented as of this encounter Results * PUL Home Overnight Oximetry (01/10/2023) 01/10/2023 Impressions [facility] - 01/12/2023 10:36 AM FEED MILL LAB TECHNICIAN Overnight oximetry was performed on room air. ??Sleep quality was described as same as usual. ??The patient did not consume any alcoholic beverages the night of the study. ??Oxygenation and the tracing are normal. Impression: ??Normal study. Physician: Jamil Daily M.D. [id number] Narrative Procedure Note Jamil Daily M.D., M.P.H. - 01/12/2023 IMPRESSION: Overnight oximetry was performed on room air. Sleep quality was describedas same as usual. The patient did not consume any alcoholic beveragesthe night of the study. Oxygenation and the tracing are normal. Impression: Normal study. Physician: Jamil Daily M.D. [id number] Radha Eastman APRN.N.P., M.S ., M.S.N. PFT ORDERABLES [place] [facility] documented in this encounter Visit Diagnoses Diagnosis Beat Premature Ventricular- Primary Apnea Sleep Obstructive Beat Premature Ventricular Apnea Sleep Obstructive documented in this encounter Care Teams Ceo & Co Founder Relationship Specialty Start Date End Date Elsewhere, Pcp PCP - General Family Medicine 10/25/18 documented as of this encounter
--- OUTSIDE RECORDS SUMMARY | 2023-12-09 00:11 | XMS_ITS | Encounter Summary ---
Author Name Unknown Organization [facility] Address [address] [place] [address] Care Team Providers Care Quilting Machine Operator Name Role Phone Elsewhere, Pcp Primary Care Provider Unavailabl e Encounter Details Date Type Department Care Team ([facility] st Contact Info) Description 01/10/2023 2:30 PM WATERWORKS EMPLOYEE Diagnostic Division of Pulmonary Medicine in [place], [place] [address] [place] [phone] Natasha Mullins APRN, C.N.P., M.S., M.S.N. [address] [place] [phone] Beat Premature Ventricular; Apnea Sleep Obstructive Social History Tobacco Use [...] and heating? Not hard at all 05/31/2020 [facility] [...] st Contact Info) Description 12/13/2023 8:50 AM WATERWORKS EMPLOYEE Appointment Department of Laboratory Medicine and Pathology, [facility], in [place], [place] [address] [place] [phone] Natasha Mullins, VY, C.N.P., M.S., M.S.N. [address] [place] [phone] 12/13/2023 11:00 AM WATERWORKS EMPLOYEE Office Visit Department of Cardiovascular Medicine in [place], [place] [address] [place] [phone] Natasha Mullins APRN, C.N.P., M.S., M.S.N. [address] [place] [phone] 02/02/2024 9:15 AM CDT Appointment Department of Cardiovascular Diseases in [place], [place] [address] [place] [phone] Fazal Reynoso M.D. [address] [place] [phone] documented as of this encounter Procedures Procedure Name Priority Date/Time Associated Diagnosis Comments PUL HOME OVERNIGHT OXIMETRY Routine 01/10/2023 Beat Premature Ventricular Apnea Sleep Obstructive documented in this encounter Results * PUL Home Overnight Oximetry (01/10/2023) 01/10/2023 [facility] - 01/12/2023 10:36 AM WATERWORKS EMPLOYEE Overnight oximetry was performed on room air. ??Sleep quality was described as same as usual. ??The patient did not consume any alcoholic beverages the night of the study. ??Oxygenation and the tracing are normal. Impression: ??Normal study. Physician: Jamil aDily M.D. [id number] Narrative Procedure Note Jamil Daily M.D., M.P.H. - 01/12/2023 IMPRESSION: Overnight oximetry was performed on room air. Sleep quality was describedas same as usual. The patient did not consume any alcoholic beveragesthe night of the study. Oxygenation and the tracing are normal. Impression: Normal study. Physician: Jamil Daily M.D. [id number] Natasha Fagan APRN, C.N.P., M.S ., M.S.N. PFT ORDERABLES [facility] documented in this encounter Visit Diagnoses Diagnosis Beat Premature Ventricular Apnea Sleep Obstructive documented in this encounter Care Teams Quilting Machine Operator Relationship Specialty Start Date End Date Elsewhere, Pcp PCP - General Family Medicine 10/25/18 documented as of this encounter
--- OUTSIDE RECORDS SUMMARY | 2023-12-09 00:12 | XMS_ITS | Clinical Summary ---
Author Name Unknown Organization [facility] Address [place], [place] [address] Care Team Providers Care Powder Blender And Pourer Name Role Phone Tucker Currie MD Primary Care Provider Allergies Active Allergy Reactions Criticality Noted Date Comments Clindamycin 11/17/2007 Iodinated Contrast Media Itching 11/17/2007 Possible adverse reaction to iodinated contrast given at eye center in 2006. Visi [address] scan on 12/12/13. No reaction noted. Penicillins Pneumococcal Vaccine Other - Describe In Comment Field 12/24/2014 Headache and body ache Shellfish Containing Products Nausea And Vomiting 07/07/2015 Medications Medication Sig Dispensed Refills Start Date End Date Status cholecalciferol (VITAMIN D) 1,000 unit capsule Take 1 capsule by mouth once daily. 0 12/26/2013 Active carvedilol (COREG) 25 mg tablet Take 2 tablets by mouth twice daily. 0 08/02/2016 Active clopidogrel (PLAVIX) 75 mg tablet Take 1 tablet by mouth once daily. 0 08/02/2016 Active aspirin (ECOTRIN) 81 mg enteric coated tablet Take 1 tablet by mouth once daily with a meal. 0 08/02/2016 Active cetirizine (ZYRTEC) 10 mg tablet Take 1 tablet by mouth once daily. 0 09/30/2016 Active rosuvastatin (CRESTOR) 40 mg tabletIndications:Mixe d hyperlipidemia Take 1 tablet by mouth at bedtime. 0 05/06/2017 Active nitroglycerin (NITROSTAT) 0.[address] 1 Tab under the tongue. 0 10/21/2017 Active fluticasone (50 mcg per actuation) nasal solution (FLONASE)Indications:W heeze Inhale 1 [place] into both nostrils once daily. 1 Bottle 12 04/11/2019 Active lisinopriL (PRINIVIL; ZESTRIL) 40 mg tablet 0 02/12/2020 Act addie albuterol HFA (PRO-AIR; VENTOLIN; PROVENTIL) 90 mcg/actuation inhalerIndications:Whe viola Inhale 1-2 Puffs by mouth every 4 hours if needed. 18 g 1 05/07/2021 Active Advair Diskus 250-50 mcg/dose diskus inhalerIndications:Whe viola INHALE ONE PUFF BY MOUTH EVERY MORNING AND INHALE ONE PUFF BY MOUTH EVERY EVENING 60 Each 12 2023 Active levothyroxine (SYNTHROID) 175 mcg tabletIndications:Post surgical hypothyroidism Take 1 Tablet (175 mcg) by mouth before breakfast. 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 Underwent total thyroidectomy and lymphadenectomy followed by radioactive iodine treatment. Circa 2015: Diagnosed with recurrent papillary thyroid carcinoma requiring [...] present: Observed without need for lymphoma treatment. 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 Range 03/22/2014 07:30 TSH Latest Range: 0.35-4.94 uIU/mL 58.71 (H) THYROGLOBULIN TUMOR MARKER Latest Range: <33.0 ng/mL 27.0 THYROGLOBULIN ANTIBODY SCREEN Latest Range: <22 IU/mL 86 (H) 1 week post-ablative scan negative for mets Thyrogen-stimulated WBS negative 09/27 Recurrence 2014 Left neck dissection 07/07/15 - 10/10 LN+, central and left neck levels 2-4 Lymphadenopathy detected 12/30; CT done, enlarged nodes => FNA shows B-cell lymphoma, now seeing Dr. Fairbanks Tg slowly rising: Ref. Range 01/30/2016 10:31 08/02/2016 10:47 08/26/2016 10:25 TSH Latest Ref Range: 0.35 - 4.94 uIU/mL 0.08 (L) 0.28 (L) 135.55 (H) with thyrogen stimulation T4,FREE Latest Ref Range: 0.70 - 1.80 ng/dL 1.41 1.13 THYROGLOBULIN Latest Ref Range: <=33.0 ng/ml 0.8 3.1 20.8 ANTI-THYROGLOBULIN Latest Ref Range: <4.0 IU/mL 29.5 (H) 51.0 (H) 75.6 (H) Persistently rising thyroglobulin 2017: Ref. Range 01/20/2017 10:24 07/26/2017 09:47 08/10/2017 09:39 TSH Latest Ref Range: 0.35 - 4.94 uIU/mL 0.06 (L) 0.02 (L) 110.19 (H) with thyrogen stimulation T4,FREE Latest Ref Range: 0.70 - 1.80 ng/dL 1.49 1.34 1.42 THYROGLOBULIN Latest Ref Range: <=33.0 ng/ml 3.9 26.7 52.7 (H) ANTI-THYROGLOBULIN Latest Ref Range: <4.0 IU/mL 101.8 (H) 75.2 (H) 70.4 (H) CT chest negative for mets 08/30 Thyrogen scan negative 07/31 Ultrasound negative 08/30 Given 203 mCi radioactive iodine empirically 09/14/17, thyrogen protocol 1 week post-ablative SPECT-CT imagest negative for any uptake Continued rising thyroglobulin 2018=>2019: Ref. Range 01/17/2018 13:38 07/21/2018 15:37 01/29/2019 14:24 TSH Latest Ref Range: 0.35 - 4.94 uIU/mL 0.03 (L) 0.03 (L) 0.04 (L) T4,FREE Latest Ref Range: 0.70 - 1.80 ng/dL 1.41 1.38 1.36 THYROGLOBULIN Latest Ref Range: <=33.0 ng/ml 2.3 1.8 18.4 ANTI-THYROGLOBULIN Latest Ref Range: <4.0 IU/mL 95.2 (H) 120.2 (H) 145.1 (H) Impotence of organic origin Resolved Problems Problem Noted Date Diagnosed Date Resolved Date Chronic systolic heart failure 12/12/2020 05/12/2022 Hyponatremia 04/11/2019 06/19/2021 LV dysfunction 11/25/2015 06/19/2021 Mixed hyperlipidemia 01/10/2009 021 Unspecified asthma(493.90) 0 01/26/2016 Diaphragmatic hernia without mention of obstruction or gangrene 06/19/2021 Unspecified intestinal obstruction 06/19/2021 Hyperpotassemia 06/19/2021 Encounters Date Type Department Care Team Description 12/06/2023 8:00 AM DIRECTOR RELIGIOUS EDUCATION Office Visit [facility] [address] [place] [address] Tucker Currie MD Hospital F/U (11-30-23 // PNUEMONIA - Feeling better ) 12/06/2023 Travel 11/10/2023 2:05 PM DIRECTOR RELIGIOUS EDUCATION Office Visit [facility] [address] [place] [place] [address] Tucker Currie MD Hospital F/U (11/02/23 D/C [facility]) 11/10/2023 Travel 09/08/2023 Refill [facility] [address] [place] [address] Tucker Currie MD Refill Request (Tamsulosin) from Last 3 Months Immunizations Name Administration Dates Next Due COVID-19 vaccine (Pfizer-Bio NTech 30mcg/0.3mL) 12YO+ BIVALENT PF, MDV 08/03/2022 COVID-19 vaccine (Pfizer-Bio NTech 30mcg/0.3mL) 12YO+ SHYLA-SUCROSE PF, MDV 04/26/2022 COVID-19 vaccine (Pfizer-Bio NTech 30mcg/0.3mL) PF, MDV 08/05/2021,01/22/2021,01/01/2021 Hepatitis A (Adult) 10/17/2003,12/24/2002 Hepatitis A, Unspecified 10/17/2003,12/24/2002 Influenza, High-dose Inactivated 019,08/02/2016,07/28/2015,2013 Influenza, High-dose Quadriv alent Inactivated 09/10/2021,09/03/2020 Influenza, IIV3 (Age >=3 years) 10/30/2007,12/10 Influenza, IIV4 07/26/2017 Influenza, Inactivated AIIV4 (Age 65+ Years) Preserv Free 08/29/2023,08/03/2022 Influenza, Inactivated IIV3 (Age 65+ Years) Preserv Free 07/31/2018 Pneumococcal Poly,23-Valent (Pneumovax) 09/07/2012 TD, UNSPECIFIED 08/24/1999 Td (Age >=7 Years) 01/10/2009,08/24/1999 Td, Preservative Free (age > = 7 Years) 01/10/2009 Zoster (Zostavax-ZVL, live) 11/26/2011 Family History Medical History Relation Name Comments Heart Disease Father cabg at 79 Allergies Mother Asthma Mother Hyperlipidemia Mother Hypertension Mother Anesthesia Problem Neg. Stroke Sister Cancer-colon No Family History Cancer-prostate No Family History Diabetes No Family History Relation Name Status Comments Father Mother Neg. Sister Social History Tobacco Use Types Packs/Day Years Used Date Smoking Tobacco: Never Smokeless Tobacco: Never Tobacco Cessation:Counseling Given: No Alcohol Use Standard Drinks/Week Comments No 0 (1 standard drink = 0.6 oz pur e alcohol) PHQ-2 Answer Date Recorded PHQ-2 Score 0 04/11/2019 Social Connections Answer Date Recorded Frequency of Communication with Friends and Fami ly 0 07/19/2023 Financial Resource Strain Answer Date R ecorded Difficulty of Paying Living Expenses 3 07/19/2023 Difficulty of Paying Living Expenses Not on file 07/19/2023 Food Insecurity Answer Date Recorded Worried About Running Out of Food in the Last Ye ar 1 07/19/2023 Transportation Needs Answer Date Record ed Lack of Transportation (Medical) 1 07/19/2023 Housing Stability Answer Date Recorded Unable to Pay for Housing in the Last Year 1 07/19/2023 Sex and Gender Information Value Date Recorded Sex Assigned at Not on file Gender Identity Not on file Sexual Orientation Not on file Obstetrics History Last Filed Vital Signs Vital Sign Reading Time Taken Comments Blood Pressure 111/75 12/06/2023 8:00 AM DIRECTOR RELIGIOUS EDUCATION Pulse 69 12/06/2023 8:00 AM DIRECTOR RELIGIOUS EDUCATION Temperature 34.6 ??C (94.3 ??F) 11/10/2023 2 :05 PM DIRECTOR RELIGIOUS EDUCATION Took with Ear thermometer and got 94.7 Respiratory Rate 18 02/27/2019 2:21 PM CDT Oxygen Saturation 97% 12/06/2023 8:0 0 AM DIRECTOR RELIGIOUS EDUCATION Inhaled Oxygen Concentration - - Weight 79.8 kg (176 lb) 12/06/2023 8:00 AM DIRECTOR RELIGIOUS EDUCATION Height 172.7 cm (5' 8) 11/10/2023 2:05 PM DIRECTOR RELIGIOUS EDUCATION Body Mass Index 26.76 11/10/2023 2:05 PM DIRECTOR RELIGIOUS EDUCATION Plan of Treatment Health Maintenance Due Date Last Done Comments Tdap 1956 Zoster (shingles) series for age 50+ (1 of 2) 01/21/2012 11/26/2011 Pneumococcal series for age 65+ (2 of 2 - PCV) 09/07/2013 09/07/2012 Medicare Wellness for age 65+ 12/24/2015 12/24/2014, 12/12/2013 Tetanus booster 01/10/2019 01/10/2009, 12/16, 08/24/1999, Additional history exists Depression screening for age 12+ 04/11/2020 04/11/2019, 05/06/2017, 09/30/2016, Additional history exists COVID-19 vaccine series ( season) 2023 08/03/2022, 04/26/2022, 08/05/2021, Additional history exists BMI (ht and wt on same day) for age 18+ 11/10/2024 11/10/2023, 08/01/2023, 07/28/2023, Additional history exists Influenza for age 65+ Completed 08/29/2023 , 08/03/2022, 09/10/2021, Additional history exists Procedures Procedure Name Priority Date/Time Associated Diagnosis Comments CBC WITH AUTO DIFFERENTIAL Routine 11/10/2023 2:37 PM DIRECTOR RELIGIOUS EDUCATION Heart failure with preserved ejection fraction, unspecified HF chronicity (HC) BASIC METABOLIC PANEL Routine 11/10/2023 2:37 PM DIRECTOR RELIGIOUS EDUCATION Heart failure with preserved ejection fraction, unspecified HF chronicity (HC) CBC WITH AUTO DIFFERENTIAL Routine 11/10/2023 2:37 PM DIRECTOR RELIGIOUS EDUCATION Heart failure with preserved ejection fraction, unspecified HF chronicity (HC) from Last 3 Months Results * (ABNORMAL) CBC WITH AUTO DIFFERENTIAL (11/10/2023 2:37 PM DIRECTOR RELIGIOUS EDUCATION) Pathologist [facility] WHITE BLOOD COUNT 6.8 4.5 - 11.0 thou/cu mm 11/10/2023 2:45 PM DIRECTOR RELIGIOUS EDUCATION [facility] RED BLOOD COUNT 4.10(L) 4.30 - 5.90 mil/cu mm 11/10/2023 2:45 PM DIRECTOR RELIGIOUS EDUCATION [facility] HEMOGLOBIN 12.8(L) 13.5 - 17.5 g/dL 11/10/2023 2:45 PM [facility] HEMATOCRIT 37.2 37.0 - 53.0 % 11/10/2023 2:45 PM DIRECTOR RELIGIOUS EDUCATION [facility] MCV 91 80 - 100 fL 11/10/2023 2:45 PM DIRECTOR RELIGIOUS EDUCATION [facility] MCH 31.2 26.0 - 34.0 pg 11/10/2023 2:45 PM [facility] MCHC 34.4 32.0 - 36.0 g/dL 11/10/2023 2:45 PM DIRECTOR RELIGIOUS EDUCATION [facility] RDW 13.6 11.5 - 15.5 % 11/10/2023 2:45 PM DIRECTOR RELIGIOUS EDUCATION [facility] PLATELET COUNT 216 140 - 440 thou/cu mm 11/10/2023 2:45 PM DIRECTOR RELIGIOUS EDUCATION [facility] MPV 8.3 6.5 - 11.0 fL 11/10/2023 2:45 PM [facility] % NEUT 58.3 % 11/10/2023 2:45 PM DIRECTOR RELIGIOUS EDUCATION [facility] % LYMPH 21.6 % 11/10/2023 2:45 PM DIRECTOR RELIGIOUS EDUCATION [facility] % MONO 13.2 % 11/10/2023 2:45 PM DIRECTOR RELIGIOUS EDUCATION [facility] % EOS 6.6 % 11/10/2023 2:45 PM DIRECTOR RELIGIOUS EDUCATION [facility] % BASO 0.3 % 11/10/2023 2:45 PM [facility] ABSOLUTE NEUTROPHILS 4.0 1.7 - 7.0 thou/cu mm 11/10/2023 2:45 PM [facility] ABSOLUTE LYMPHOCYTES 1.5 0.9 - 2.9 thou/cu mm 11/10/2023 2:45 PM [facility] ABSOLUTE MONOCYTES 0.9(H) <0.9 thou/cu mm 11/10/2023 2:45 PM DIRECTOR RELIGIOUS EDUCATION [facility] ABSOLUTE EOSINOPHILS 0.5(H) <0.5 thou/cu mm 11/10/2023 2:45 PM [facility] ABSOLUTE BASOPHILS 0.0 <0.3 thou/cu mm 11/10/2023 2:45 PM [facility] Blood BLOOD SPECIMEN / Unknown Venipuncture / Unknown 11/10/2023 2:37 PM DIRECTOR RELIGIOUS EDUCATION 11/10/2023 2:38 PM DIRECTOR RELIGIOUS EDUCATION Tucker Currie MD HEMATOLOGY [facility] [address] [place] [address], * (ABNORMAL) BASIC METABOLIC PANEL (11/10/2023 2:37 PM DIRECTOR RELIGIOUS EDUCATION) SODIUM 128(L) 136 - 145 mmol/L 11/10/2023 9:29 PM DIRECTOR RELIGIOUS EDUCATION [facility] POTASSIUM 4.5 3.5 - 5.1 mmol/L 11/10/2023 9:29 PM DIRECTOR RELIGIOUS EDUCATION [facility] CHLORIDE 96(L) 98 - 107 mmol/L 11/10/2023 9:29 PM [facility] CO2,TOTAL 21(L) 22 - 29 mmol/L 11/10/2023 9:29 PM [facility] ANION GAP 11 5 - 18 11/10/2023 9:29 PM [facility] GLUCOSE 114(H) 70 - 99 mg/dL 11/10/2023 9:29 PM [facility] CALCIUM 8.8 8.8 - 10.2 mg/dL 11/10/2023 9:29 PM [facility] BUN 24(H) 8 - 23 mg/dL 11/10/2023 9:29 PM [facility] CREATININE 0.97 0.70 - 1.20 mg/dL 11/10/2023 9:29 PM [facility] BUN/CREAT RATIO 25(H) 10 - 20 9:29 PM [facility] eGFR 79(L) >90 mL/min/1.7 3m2 11/10/2023 9:29 PM [facility] Comment:As of 2022, eG FR is calculated by the CKD-EPI creatinine equation without race adjustment. ??eGFR can be influenced by muscle mass, exercise, and diet. ??The reported eGFR is an estimation only and is only applicable if the renal function is stable. Blood BLOOD SPECIMEN / Unknown Venipuncture / Unknown 11/10/2023 2:37 PM DIRECTOR RELIGIOUS EDUCATION 11/10/2023 2:38 PM DIRECTOR RELIGIOUS EDUCATION Tucker Currie MD CHEMISTRY [facility] [address] [address], from Last 3 Months Advance Directives Latest Code Status on File Code Status Date Activated Date Inactivated Comments Full Code 07/07/2015 2:09 PM 07/08/2015 2:42 PM Code Status History Code Status Date Activated Date Inactivated Comments Full Code 07/07/2015 12:47 AM 07/07/2015 2:09 PM Care Teams Powder Blender And Pourer Relationship Specialty Start Date End Date Tucker Currie MD [address] [place] [address] PCP - General 09/15/06
== END 2023-11-28 19:28 | disposition home or self-care (01) ==
LOC: AMB 12-08 23:59
PROVIDERS: PCP Family Medicine; Visit Provider Family Medicine
DX: R07.89 Other chest pain (principal)
CPT/HCPCS: A0425; A0427

== ENCOUNTER 2025-02-13 17:50 | Outpatient (CLI) | payer OTHER, MEDICARE, BC, SELFPAY | END 2025-02-13 17:51 | disposition home or self-care (01) | LOC: AMB 02-14 13:12 | PROVIDERS: PCP Family Medicine; Visit Provider Student in an Organized Health Care Education/Training Program | DX: S89.92XA Unspecified injury of left lower leg, initial encounter (principal); V49.40XA Driver injured in collision with unspecified motor vehicles in traffic accident, initial encounter; Y92.410 Unspecified street and highway as the place of occurrence of the external cause | CPT/HCPCS: A0425; A0427 ==